=== PATIENT | female | born 1985 | race Hispanic/Latino ===

== ENCOUNTER 2019-08-21 02:43 | Emergency (ER) | payer OTHER ==
--- OUTSIDE RECORDS SUMMARY | 2019-08-21 02:45 | XMS REPORT | Continuity of Care Document ---
:1985 Author Organization [facility] t Address [address] [place] [address] [address]. 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 Allergies, Adverse Reactions, Alerts This patient has no known allergies or adverse reactions. Medications This patient has no known medications. Procedures This patient has no known procedures. Encounters Start End Encounter Admission Attending Care Care Encounter Source Date/Time Date/Time Type Type Clinicians Facility Department ID 2019-08-19 2019-08-19 Emergency Miguel [facility] [id number] 21:26:07 21:27:00 [place] [id number] [place] [id number] [place] [id number] 2019-08-19 2019-08-19 Orders Doctor SARAH [id number] 00:00:00 00:00:00 Only UnassCASI garcia [id number] [place] [facility] [id number] Results This patient has no known results.
--- OUTSIDE RECORDS SUMMARY | 2019-08-21 02:46 | XMS REPORT | Summary of Care ---
:1985 Author Organization [facility] Address [address] [place] [address] Care Team Providers Name Role Phone Shruthi Nuñez Insurance Hmo Jocelyn Stephen Primary Care Provider Reason for Visit Reason Comments Shortness of Breath Encounter Details Date Type Department Care Team Description 08/19/2019 Emergency ADC-Emergency Simba Rivera FNP Suspected Covid-19 Virus Infection (Prim danni Dx); Department [address] [place] [address] Shortness of breath; [address] [place] [place] [address] [address] [place] [address] Allergies No Known Allergiesdocumented as of this encounter (statuses as of 08/19/2019) Medications Medication Sig Dispensed Refills Start Date End Date Status vit Take 1 Packet by 30 Each 6 11/11/2016 Active 39-ukpg-dqlbd-dha mouth daily. (SELECT-OB + DHA) 29 mg iron-1 mg -250 mg combo packIndications: Supervision of high risk , antepartum, first trimester docusate calcium 240 Take 1 capsule by 60 capsule 1 04/20/2017 Active mg capsule mouth once daily as needed for Constipation. ferrous sulfate 325 Take 1 tablet by 60 tablet 2 04/20/2017 Active mg (65 mg iron) mouth daily. tablet ibuprofen 600 mg Take 1 tablet by 60 tablet 1 04/20/2017 Active tablet mouth every 6 (six) hours as needed for Pain (scale 1-3) or Pain (scale 4-6) (Pain). Take with food or milk. albuterol 2.5 mg /3 Inhale 3 mL every 20 mL 0 08/19/2019 Active mL (0.083 %) 4 (four) hours. nebulizer May also nebulize solutionIndications: one extra every 6 Shortness of breath, hours. Anxiety albuterol 90 Inhale 2 Puffs 8.5 g 0 08/19/2019 A ctive mcg/actuation every 4 (four) inhalerIndications: hours as needed Shortness of breath, for Wheezing or Anxiety Shortness of Breath. documented as of this encounter (statuses as of 08/19/2019) Active Problems Patient Care Coordination Note IOL scheduled for 04/18/2017 7 p.m. Problem Noted Date Papanicolaou smear of cervix with low grade squamous i ntraepithelial 08/30/2014 lesion (LGSIL) documented as of this encounter (statuses as of 08/19/2019) Resolved Problems Problem Noted Date Resolved Date Anemia, antepartum, third trimester 04/19/201705/08 Anxiety and depression 04/19/2017 05/19/2017 Overview: History of same,obs for same Normal spontaneous vaginal delivery 04/19/201705/08 Itching 04/19/2017 05/19/2017 Overview: C/o itching?PUPPS, Hydrocortisone used a t home 39 weeks gestation of 04/18/2017 05/20/19 18 Labor and delivery indication for care or intervention 04/1805/19/2017 Positive GBS test 04/06/2017 05/19/2017 Overview: Address in Labor and Delivery Decreased movements in third trimester, single or 03/1004/19/2017 unspecified fetus Supervision of high risk , antepartum, third trimes ter 02/09/2017 05/19/2017 Insufficient care in third trimester 02/09/2017 05/19/2017 Supervision of high risk , antepartum, first trimes ter 09/28/2016 02/09/2017 Absence of menstruation 09/28/2016 04/19/2017 Multiparity 09/28/2016 05/19/2017 Obesity in 09/28/2016 05/19/2017 Chlamydia trachomatis infection of lower genitourinary sites 08/30/2014 07/29/2016 documented as of this encounter (statuses as of 08/19/2019) Immunizations Name Administration Dates Next Due TDAP 02/09/2017, 02/07/2007 documented as of this encounter Social History Tobacco Use Types Packs/Day Years Used Date Former Smoker Cigarettes 0.2 3 Quit: 08/29/19 17 Smokeless Tobacco: Never Used Comments: smokes 2 x per day. Alcohol Use Drinks/Week oz/Week Comments Yes Sex Assigned at Date Recorded Not on file Job Start Date Occupation Industry Not on file Not on file Not on file Travel History Travel Start Travel End No recent travel history available. COVID-19 Exposure Response Date Recorded In the last month, have you been in contact with No / Unsure 08/19/2019 8:54 PM CDT someone who was confirmed or suspected to have Coronavirus / COVID-19? documented as of this encounter Last Filed Vital Signs Vital Sign Reading Time Taken Comments Blood Pressure 117/88 08/19/2019 8:55 PM CDT Pulse 86 08/19/2019 8:55 PM CDT Temperature 37.6 C (99.6 F) 08/19/2019 8:55 PM CDT Respiratory Rate 22 08/19/2019 8:55 PM CDT Oxygen Saturation 99% 08/19/2019 8:55 PM CDT Inhaled Oxygen Concentration - - Weight 83.5 kg (184 lb) 08/19/2019 8:55 PM CDT Height 152.4 cm (5') 08/19/2019 8:55 PM CDT Body Mass Index 35.94 08/19/2019 8:55 PM CDT documented in this encounter Discharge Instructions Simba Olmstead FNP - 08/19/2019 DIAGNOSIS ICD-10-CM ICD-9-CM 1. Suspected Covid-19 Virus Infection R68.89 2. Shortness of breath R06.02 786.05 NO LIFE-THREATENING FINDINGS ON TODAY'S EXAM. SPECIAL CARE INSTRUCTIONS: Stay well hydrated Follow up with PCP Return to ER As needed FOLLOW-UP RECOMMENDATIONS: RECOMMEND FOLLOW-UP WITH A PRIMARY CARE PROVIDER OR SPECIALIST IN 2-5 DAYS, ESPECIALLY IF NO IMPROVEMENT IN SYMPTOMS. TO FOLLOW-UP WITHIN THE [facility], TRY THESE OPTIONS (CLINIC APPOINTMENTS AVAILABLE ON [id number] BASIS): 1. SCHEDULE AN APPOINTMENT ONLINE AT [facility] 2. OR CALL THE [facility] AT OR 3. OR CALL YOUR [facility] PHYSICIAN'S OFFICE DIRECTLY IF YOU ARE ALREADY AN ESTABLISHED [facility] PATIENT. OR, YOU MAY FOLLOW-UP WITH A PROVIDER OF YOUR CHOICE, SUCH : 1. A PHYSICIAN OF YOUR CHOICE 2. [facility], . LOCATIONS IN [facility] 3. [facility], [address] [place], [place]; [phone] RETURN TO ER FOR WORSENING OF SYMPTOMS. AttachmentsThe following attachments cannot be sent through Care Everywhere. Shortness of Breath (Dyspnea) (Polish)Coronavirus Disease 2019: Caring for Yourself and Others (Polish)documented in this encounter Plan of Treatment Name Type Priority Associated Diagnoses Date/Ti me CORONAVIRUS COVID-19 LAB STAT Shortness o f breath 08/19/2019 9:04 PM TESTING Suspected Covid-19 Virus CDT Infection Name Type Priority Associated Diagnoses Order S chedule CORONAVIRUS COVID-19 LAB STAT Shortness o f breath STAT for 1 Occurrences TESTING Suspected Covid-19 starting 08/19/2019 Virus Infection until 2019 Health Maintenance Due Date Last Done Comments Depression Screening 1997 PAP SMEAR 09/29/2019 09/28/2016, 08/23/2014 INFLUENZA VACCINE (Season 10/09/2019 Ended) DTaP,Tdap,and Td Vaccines (3 02/09/2027 02/09/2017, - Td) 02/07/2007 PNEUMOCOCCAL 0-64 YEARS Aged Out No longe r eligible based COMBINED SERIES on patient's age to complete this to [facility] documented as of this encounter Procedures Procedure Name Priority Date/Time Associated Diagnosis Comme nts ASSIGNMENT OF BENEFITS Routine 08/19/2019 8:45 PM CDT documented in this encounter Results Not on filedocumented in this encounter Visit Diagnoses Diagnosis Suspected Covid-19 Virus Infection - Daphne karolina Shortness of breath Anxiety Anxiety state, unspecified documented in this encounter Additional Health Concerns Infection Onset Date Last Indicated Resolved Time COVID-19 Rule Out 08/19/2019 08/19/2019 documented as of this encounter Advance Directives Name Relationship Healthcare Agent Relationship Co mmunication Nicki Rose Sibling Primary healthcare agent
--- OUTSIDE RECORDS SUMMARY | 2019-08-21 02:46 | XMS REPORT | Summary of Care ---
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 (SELECT-OB + DHA) 29 mg iron-1 mg -250 mg combo packIndications: Supervision of high risk , antepartum, first trimester docusate calcium 240 Take 1 capsule by 60 capsule 1 04/20/2017 Active mg capsule mouth once daily as needed for Constipation. ferrous sulfate 325 mg Take 1 tablet by 60 tablet 2 04/20/2017 Active (65 mg iron) tablet mouth daily. ibuprofen 600 mg Take 1 tablet by 60 tablet 1 04/20/2017 Active tablet mouth every 6 (six) hours as needed for Pain (scale 1-3) or Pain (scale 4-6) (Pain). Take with food or milk. documented as of this encounter (statuses as [...] Travel End No recent travel history available. documented as of this encounter Last Filed Vital Signs Not on filedocumented in this encounter Plan of Treatment Health Maintenance Due Date Last Done Comments Depression Screening 1997 PAP SMEAR 09/29/2019 09/28/2016, 08/23/2014 INFLUENZA VACCINE (Season 10/09/2019 Ended) DTaP,Tdap,and Td Vaccines (3 02/09/2027 02/09/2017, - Td) 02/07/2007 PNEUMOCOCCAL 0-64 YEARS Aged Out No longe r eligible based COMBINED SERIES on patient's age to complete this to pic documented as of this encounter Procedures Procedure Name Priority Date/Time Associated Diagnosis Comme nts CONSENT/REFUSAL FOR Routine 08/19/2019 8:44 PM CDT DIAGNOSIS AND TREATMENT documented in this encounter Results Not on filedocumented in this encounter Insurance Payer Benefit Plan / Subscriber ID Effective Dates Phone Addre ss Type Group [place] [employer] [place] [employer] xxxxxxxxx 2016-Present Medicaid HEALTH PLAN - HEALTH MANAGED MEDICAID documented as of this encounter Advance Directives Name Relationship Healthcare Agent Relationship Co mmunication Nicki Rose Sibling Primary healthcare agent
[2019-08-21] MEDS ORDERED: METOCLOPRAMIDE 10 MG/2mL INJ ONE (03:35)
[2019-08-21] MEDS ORDERED: DIPHENHYDRAMINE 50 MG/ML VIAL ONE (03:35)
[2019-08-21] MEDS ORDERED: NA CHLORIDE 0.9% 1,000 ML ONE (03:35)
[2019-08-21 04:15] LABS: Barbiturates NEGATIVE (NEGATIVE); Benzodiazepines NEGATIVE (NEGATIVE); Cocaine NEGATIVE (NEGATIVE); METHAMPHETAM NEGATIVE (NEGATIVE); Methadone NEGATIVE (NEGATIVE); Opiates NEGATIVE (NEGATIVE); Phencyclidine NEGATIVE (NEGATIVE); THC Cannibis NEGATIVE (NEGATIVE)
[2019-08-21 04:19] LABS: Absolute Lymphocytes (CBC) 5.6 K/uL (0.7-4.9); Hematocrit 41.4 % (36.0-45.0); Lymphocytes % 40.3 % (15.3-44.8); MPV 7.7 fL (7.6-11.3); RBC Red Blood Cell Count 5.23 M/uL (3.86-4.86)
[2019-08-21 04:21] LABS: Protime INR 1.09
[2019-08-21 04:33] LABS: ALT/SGPT 11 U/L (12-78); AST/SGOT 9 U/L (15-37); Albumin 3.1 g/dL (3.4-5.0); Alkaline Phosphatase 58 U/L (45-117); BUN Blood Urea Nitrogen 12 mg/dL (7-18); Bicarbonate 23 mmol/L (21-32); Bilirubin Direct < 0.1 mg/dL (0-0.2); Bilirubin Total 0.2 mg/dL (0.2-1.0); CKMB Creatine Kinase MB < 1.0 ng/mL (0.3-3.6); Creatine Phosphokinase 51 U/L (26-192); Glucose Level 95 mg/dL (74-106); Lipase 295 U/L (73-393); NT PRO-BNP 47 pg/mL (<125); Potassium 4.1 mmol/L (3.5-5.1); Sodium Level 140 mmol/L (136-145); Troponin (Emerg Dept Use Only) < 0.02 ng/mL (0.0-0.045)
[2019-08-21 04:49] LABS: Urine Blood 2+ (NEG); Urine Glucose NEGATIVE (NEG); Urine Protein TRACE (NEG); Urine Specific Gravity >1.030 (1.005-1.030)
--- NOTE | 2019-08-21 05:21 | ER ---
Nurse's Notes [facility] Name: Goyo Solorio Age: 34 yrs Sex: Female : 1985 Arrival Date: 08/21/2019 Time: 02:46 Bed 8 Private MD: Diagnosis: Dyspnea;Dizziness;Headache;Viral Syndrome Presentation: 08/20 03:03 Chief complaint: Patient states: Shortness of breath, dizziness, headache, body aches lp1 that began yesterday; States her daughter had same symptoms and COVID negative test; patient states seen at [facility] yesterday and test for COVID, given Albuterol neb and inhaler prescriptions. Coronavirus screen: Patient denies a cough. Patient reports shortness of breath or difficulty breathing. Patient denies measured and/or subjective temperature greater than 100.4F prior to today's visit. Patient denies travel on a cruise ship or to a country the [facility] currently lists as an affected area. Patient denies contact with known and/or suspected case of COVID-19. Ebola Screen: No symptoms or risks identified at this time. Initial Sepsis Screen: Does the patient meet any 2 criteria? No. Patient's initial sepsis screen is negative. Does the patient have a suspected source of infection? No. Patient's initial sepsis screen is negative. Risk Assessment: Do you want to hurt yourself or someone else? Patient reports no desire to harm self or others. Onset of symptoms was August 20, 2019. 03:03 Method Of Arrival: Ambulatory lp1 03:03 Acuity: EUGENIO 3 lp1 Triage Assessment: 04:17 Respiratory: Onset: The symptoms/episode began/occurred gradually, the patient has mild jd3 shortness of breath. 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 - Social history:: Smoking status: Patient reports the use of cigarette tobacco products, denies chronic smoking, but will smoke occasionally. Screenin:07 Abuse screen: Denies threats or abuse. Denies injuries from another. Nutritional lp1 screening: No deficits noted. Tuberculosis screening: No symptoms or risk factors identified. Fall Risk None identified. Assessment: 03:50 General: Appears in no apparent distress. uncomfortable, Behavior is cooperative, jd3 appropriate for age, anxious. Pain: Complains of pain in chest Quality of pain is described as aching, pressure. Neuro: Level of Consciousness is awake, alert, obeys commands, Oriented to person, place, time, situation, Reports dizziness. Cardiovascular: Capillary refill < 3 seconds Patient's skin is warm and dry. Rhythm is regular. Respiratory: Reports shortness of breath at rest cough that is persistent Airway is patent Respiratory effort is even, unlabored, Respiratory pattern is regular, symmetrical. GI: Reports vomiting, Patient currently denies abdominal pain. : No signs and/or symptoms were reported regarding the genitourinary system. EENT: No signs and/or symptoms were reported regarding the EENT system. Derm: Skin is intact, Skin is dry, Skin is normal, Skin temperature is warm. Musculoskeletal: Circulation, motion, and sensation intact. Range of motion: intact in all extremities. 04:15 Reassessment: Patient appears in no apparent distress at this time. No changes from jd3 previously documented assessment. Patient and/or family updated on plan of care and expected duration. Pain level reassessed. Patient is alert, oriented x 3, equal unlabored respirations, skin warm/dry/pink. 05:47 Reassessment: Patient appears in no apparent distress at this time. Patient and/or jd3 family updated on plan of care and expected duration. Pain level reassessed. Patient is alert, oriented x 3, equal unlabored respirations, skin warm/dry/pink. Patient states feeling better. 06:50 Reassessment: Patient appears in no apparent distress at this time. Patient is alert, rr5 oriented x 3, equal unlabored respirations, skin warm/dry/pink. discharge instruction given and explained without complaints made Patient states feeling better. Patient states symptoms have improved. Vital Signs: 03:03 BP 110 / 95; Pulse 81; Resp 18; Temp 98.7(O); Pulse Ox 100% on R/A; Weight 83.46 kg lp1 (R); Height 5 ft. 0 in. (152.40 cm); Pain 0/10; 04:15 BP 129 / 69; Pulse 78; Resp 17 S; Pulse Ox 100% on R/A; jd3 05:47 BP 101 / 73; Pulse 70; Resp 17 S; Pulse Ox 100% on R/A; jd3 06:51 BP 105 / 62; Pulse 76; Resp 19; Temp 97.8; Pulse Ox 98% ; rr5 03:03 Body Mass Index 35.93 (83.46 kg, 152.40 cm) lp1 ED Course: 02:46 Patient arrived in ED. cl3 03:03 Chema Villegas MD is Attending Physician. mh7 03:06 Triage completed. lp1 03:06 Arm band placed on. lp1 03:14 Jose Cruz Guevara, JAVIER is Primary Nurse. jd3 03:37 Chest Single View XRAY In Process Unspecified. EDMS 03:42 CT Head Brain wo Cont In Process Unspecified. EDMS 03:50 Inserted saline lock: 20 gauge in right wrist, using aseptic technique. Blood collected.jd3 04:17 Patient has correct armband on for positive identification. Bed in low position. Call jd3 light in reach. Side rails up X2. database tester on. Pulse ox on. NIBP on. 05:47 No provider procedures requiring assistance completed. jd3 06:49 IV discontinued, intact, bleeding controlled, No redness/swelling at site. Pressure rr5 dressing applied. Administered Medications: 04:12 Drug: Reglan 10 mg Route: IVP; Site: right wrist; jd3 05:00 Follow up: Response: No adverse reaction jd3 04:12 Drug: Benadryl 50 mg Route: IVP; Site: right wrist; jd3 05:00 Follow up: Response: No adverse reaction jd3 04:12 Drug: NS 0.9% 1000 ml Route: IV; Rate: 1000 ml; Site: right wrist; jd3 05:10 Follow up: Response: No adverse reaction; IV Status: Completed infusion; IV Intake: jd3 1000ml Intake: 05:10 IV: 1000ml; Total: 1000ml. jd3 Outcome: 05:21 Discharge ordered by . mh7 06:49 Discharged to home ambulatory. rr5 06:49 Condition: stable 06:49 Discharge instructions given to patient, Instructed on discharge instructions, follow up and referral plans. medication usage, Demonstrated understanding of instructions, follow-up care, medications, Prescriptions given X 3. 06:50 Patient left the ED. rr5 Signatures: Dispatcher [employer] EDMS Dee Jane RN RN lp1 Jose Cruz Guevara RN RN jd3 Zheng Martino RN RN rr5 Kellen Pennington cl3 Chema Villegas MD MD mh7
--- NOTE | 2019-08-21 05:21 | EDPHYS ---
Physician Documentation [facility] Name: Goyo Solorio Age: 34 yrs Sex: Female : 1985 Arrival Date: 08/21/2019 Time: 02:46 Bed 8 Private MD: ED Physician Chema Villegas HPI: 08/20 03:56 This 34 yrs old Female presents to ER via Ambulatory with complaints of mh7 Dizziness, Shortness Of Breath. 03:57 The patient has shortness of breath with light activity. Onset: The symptoms/episode mh7 began/occurred 4 day(s) ago. Duration: The symptoms are intermittent, with no pattern. The patient's shortness of breath is aggravated by walking. The patient's shortness of breath is alleviated by nothing. Associated signs and symptoms: Pertinent positives: dizziness, Pertinent negatives: chest pain, non-productive cough, productive cough, diaphoresis, fever, hemoptysis, loss of consciousness, nausea, numbness in extremities, visual changes, vomiting. Severity of symptoms: At their worst the symptoms were moderate 3 day(s) ago, in the emergency department the symptoms have improved moderately. Patient states that she has had intermittent SOB, dizziness for the past 4 days. She has also had some intermittent headaches and body aches. She states that she had recent exposure to COVID 19 with aunt who tested positive.. 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 - Social history:: Smoking status: Patient reports the use of cigarette tobacco products, denies chronic smoking, but will smoke occasionally. ROS: 03:57 Constitutional: Negative for fever, chills, and weight loss, Eyes: Negative for injury, mh7 pain, redness, and discharge, ENT: Negative for injury, pain, and discharge, Neck: Negative for injury, pain, and swelling, Cardiovascular: Negative for chest pain, palpitations, and edema, Abdomen/GI: Negative for abdominal pain, nausea, vomiting, diarrhea, and constipation, Back: Negative for injury and pain, : Negative for injury, bleeding, discharge, and swelling, MS/Extremity: Negative for injury and deformity, Skin: Negative for injury, rash, and discoloration, Psych: Negative for depression, anxiety, suicide ideation, homicidal ideation, and hallucinations, Allergy/Immunology: Negative for hives, rash, and allergies, Endocrine: Negative for neck swelling, polydipsia, polyuria, polyphagia, and marked weight changes, Hematologic/Lymphatic: Negative for swollen nodes, abnormal bleeding, and unusual bruising. Exam: 03:57 Constitutional: This is a well developed, well nourished patient who is awake, alert, mh7 and in no acute distress. Head/Face: Normocephalic, atraumatic. Eyes: Pupils equal round and reactive to light, extra-ocular motions intact. Lids and lashes normal. Conjunctiva and sclera are non-icteric and not injected. Cornea within normal limits. Periorbital areas with no swelling, redness, or edema. ENT: Nares patent. No nasal discharge, no septal abnormalities noted. Tympanic membranes are normal and external auditory canals are clear. Oropharynx with no redness, swelling, or masses, exudates, or evidence of obstruction, uvula midline. Mucous membranes moist. Neck: Trachea midline, no thyromegaly or masses palpated, and no cervical lymphadenopathy. Supple, full range of motion without nuchal rigidity, or vertebral point tenderness. No Meningismus. Chest/axilla: Normal chest wall appearance and motion. Nontender with no deformity. No lesions are appreciated. Cardiovascular: Regular rate and rhythm with a normal S1 and S2. No gallops, murmurs, or rubs. Normal PMI, no JVD. No pulse deficits. Respiratory: Lungs have equal breath sounds bilaterally, clear to auscultation and percussion. No rales, rhonchi or wheezes noted. No increased work of breathing, no retractions or nasal flaring. Abdomen/GI: Soft, non-tender, with normal bowel sounds. No distension or tympany. No guarding or rebound. No evidence of tenderness throughout. Back: No spinal tenderness. No costovertebral tenderness. Full range of motion. Skin: Warm, dry with normal turgor. Normal color with no rashes, no lesions, and no evidence of cellulitis. MS/ Extremity: Pulses equal, no cyanosis. Neurovascular intact. Full, normal range of motion. Neuro: Awake and alert, GCS 15, oriented to person, place, time, and situation. Cranial nerves II-XII grossly intact. Motor strength 5/5 in all extremities. Sensory grossly intact. Cerebellar exam normal. Normal gait. Psych: Awake, alert, with orientation to person, place and time. Behavior, mood, and affect are within normal limits. 06:03 ECG was reviewed by the Attending Physician. [facility] Vital Signs: 03:03 BP 110 / 95; Pulse 81; Resp 18; Temp 98.7(O); Pulse Ox 100% on R/A; Weight 83.46 kg lp1 (R); Height 5 ft. 0 in. (152.40 cm); Pain 0/10; 04:15 BP 129 / 69; Pulse 78; Resp 17 S; Pulse Ox 100% on R/A; jd3 05:47 BP 101 / 73; Pulse 70; Resp 17 S; Pulse Ox 100% on R/A; jd3 06:51 BP 105 / 62; Pulse 76; Resp 19; Temp 97.8; Pulse Ox 98% ; rr5 03:03 Body Mass Index 35.93 (83.46 kg, 152.40 cm) lp1 MDM: 03:[address] [facility] 05:17 Differential diagnosis: Anemia Anxiety Reaction asthma, Bronchitis Myocardial 7 Infarction pneumonia, Pneumothorax pulmonary edema, Pulmonary Embolism reactive airway disease, Headache, Dyspnea, Dizziness, Viral Syndrome. Data reviewed: vital signs, nurses notes, old medical records, lab test result(s), cardiac enzymes, CBC, electrolytes, urinalysis, EKG, radiologic studies, CT scan, plain films. Data interpreted: Pulse oximetry: on room air is 100 %. Interpretation: normal. Counseling: I had a detailed discussion with the patient and/or guardian regarding: the historical points, exam findings, and any diagnostic results supporting the discharge/admit diagnosis, lab results, radiology results, the need for outpatient follow up, to return to the emergency department if symptoms worsen or persist or if there are any questions or concerns that arise at home. Response to treatment: the patient's symptoms have resolved after treatment, the patient's blood pressure is in an acceptable range, mental status has returned to baseline, the patient no longer shows bradycardia, the patient is not short of breath, the patient is not tachycardic, the patient's pain is gone, the patient's temperature has normalized. 08/20 03:17 Order name: Blood Culture Adult (2) 08/20 03:17 Order name: BMP; Complete Time: 04:41 08/20 03:17 Order name: CBC with Diff; Complete Time: 04:28 08/20 03:17 Order name: Ckmb; Complete Time: 04:41 08/20 03:17 Order name: CPK; Complete Time: 04:41 08/20 03:17 Order name: D-Dimer; Complete Time: 04:28 08/20 03:17 Order name: Hepatic Function; Complete Time: 04:41 08/20 03:17 Order name: Lipase; Complete Time: 04:41 08/20 03:17 Order name: Magnesium; Complete Time: 04:41 08/20 03:17 Order name: NT PRO-BNP; Complete Time: 04:41 08/20 03:17 Order name: PT-INR; Complete Time: 04:28 08/20 03:17 Order name: Ptt, Activated; Complete Time: 04:28 08/20 03:17 Order name: Troponin (emerg Dept Use Only); Complete Time: 04:08/20 03:17 Order name: UDS; Complete Time: 04:28 08/20 03:17 Order name: EKG; Complete Time: 03:18 08/20 03:17 Order name: Cardiac monitoring; Complete Time: 04:13 08/20 03:17 Order name: EKG - Nurse/Tech; Complete Time: 04:08/20 03:17 Order name: IV Saline Lock; Complete Time: 04:13 08/20 03:17 Order name: Labs collected and sent; Complete Time: 04:13 08/20 03:17 Order name: O2 Per Protocol; Complete Time: 03:22 08/20 03:17 Order name: O2 Sat Monitoring; Complete Time: 03:22 08/20 03:17 Order name: Urine Dipstick-Ancillary (obtain specimen); Complete Time: 03:49 08/20 03:17 Order name: Urine Test (obtain specimen); Complete Time: 03:49 [facility] 08/20 03:17 Order name: Chest Single View XRAY [facility] 08/20 03:19 Order name: CT Head Brain wo Cont [facility] 08/20 03:52 Order name: Urine Dipstick--Ancillary (enter results); Complete Time: 05:00 mw2 08/20 03:52 Order name: Urine --Ancillary (enter results); Complete Time: 05:00 mw2 EC:03 Rate is 71 beats/min. Rhythm is regular, Normal Sinus Rhythm. QRS [place] is Normal. [place] mh7 interval is normal. QRS interval is normal. QT interval is normal. No Q waves. T waves are Inverted in lead II. No ST changes noted. Clinical impression: NSR w/ Non-specific ST/T Changes. Administered Medications: 04:12 Drug: Reglan 10 mg Route: IVP; Site: right wrist; jd3 05:00 Follow up: Response: No adverse reaction jd3 04:12 Drug: Benadryl 50 mg Route: IVP; Site: right wrist; jd3 05:00 Follow up: Response: No adverse reaction jd3 04:12 Drug: NS 0.9% 1000 ml Route: IV; Rate: 1000 ml; Site: right wrist; jd3 05:10 Follow up: Response: No adverse reaction; IV Status: Completed infusion; IV Intake: jd3 1000ml Disposition: 08/21/19 05:21 Discharged to Home. Impression: Dyspnea, Dizziness, Headache, Viral Syndrome. - Condition is Stable. - Discharge Instructions: Shortness of Breath, Lddk-uh-Kvcj, Viral Respiratory Infection, Sdoz-Cx-Sarz, General Headache Without Cause, Ucfz-qp-Hlvm, Dizziness, Lkse-lp-Wqnb. - Prescriptions for Tessalon Perles 100 mg Oral Capsule - take 1 capsule by ORAL route every 8 hours As needed; 15 capsule. Albuterol Sulfate 90 mcg/actuation - inhale 1-2 puff by INHALATION route every 4-6 hours; 1 Inhaler. Benadryl 25 mg Oral Capsule - take 1 capsule by ORAL route every 6 hours As needed; 20 tablet. - Medication Reconciliation Form, Thank You Letter, Antibiotic Education, Prescription Opioid Use form. - Follow up: Private Physician; When: 1 - 2 days; Reason: Worsening of condition, Recheck today's complaints, Continuance of care, Re-evaluation by your physician. - Problem is an ongoing problem. - Symptoms have improved. Signatures: Dispatcher [employer] EDMS Dee Jane RN RN lp1 Jose Cruz Guevara RN RN jd3 Zheng Martino RN RN rr5 Chema Villegas MD MD mh7 Corrections: (The following items were deleted from the chart) 06:50 05:21 08/21/2019 05:21 Discharged to Home. Impression: Dyspnea; Dizziness; Headache; rr5 Viral Syndrome. Condition is Stable. Forms are Medication Reconciliation Form, Thank You Letter, Antibiotic Education, Prescription Opioid Use. Follow up: Private Physician; When: 1 - 2 days; Reason: Worsening of condition, Recheck today's complaints, Continuance of care, Re-evaluation by your physician. Problem is an ongoing problem. Symptoms have improved. mh7
[2019-08-21 07:07] VITALS: BP 105/62; TEMP 97.8; O2SAT 98
--- NOTE | 2019-08-21 08:30 | RAD REPORT ---
EXAM DESCRIPTION: RAD - Chest Single View - 08/21/2019 3:37 am CLINICAL HISTORY: SOB Chest pain. COMPARISON: <Comparisons> FINDINGS: Portable technique limits examination quality. The lungs are grossly clear. The heart is normal in size. No displaced fractures. IMPRESSION: No acute intrathoracic process suspected.
--- NOTE | 2019-08-22 07:48 | EKG ---
Test Date: 2019-08-21 Test Time: 03:44:44 As400 Administrator: VIET MEASUREMENT RESULTS: Intervals: Rate: 71 AL: 150 QRSD: 82 QT: 372 QTc: 404 [place]: P: 22 AL: 150 QRS: 1 T: 25 INTERPRETIVE STATEMENTS: Normal sinus rhythm Cannot rule out Inferior infarct, age undetermined Abnormal ECG Compared to ECG 12/25/2015 11:56:48 Myocardial infarct finding now present Electronically Signed On 08-22-19 07:44:55 CDT by Javon Carranza
--- NOTE | 2019-08-22 08:23 | RAD REPORT ---
EXAM DESCRIPTION: CT HEAD WITHOUT IV CONTRAST CLINICAL HISTORY: HEADACHE TECHNIQUE: Contiguous axial CT images obtained through the brain without IV contrast. Coronal and sa gittal reformatted images were provided. This exam was performed according to our departmental dose-optimization program, which includes autom ated exposure control, adjustment of the mA and/or kV according to patient size and/or use of iterati ve reconstruction technique. COMPARISON: None available for comparison FINDINGS: Brain: No significant white matter changes. No focal mass effect. Ruiz-white matter differ entiation is within normal limits. No hemorrhage. Ventricles: No ventriculomegaly or midline shift. Extra-axial spaces: No extra-axial collection or hemorrhage. Paranasal sinuses and mastoid air cells: Well-aerated Vessels: Unremarkable Bones: Unremarkable Soft tissues: Unremarkable IMPRESSION: No acute intracranial or extra-axial abnormality. Electronically signed by: Francis Vega MD 08/21/2019 3:52 AM CDT Due to temporary technical issues with the PACS/Fluency reporting system, reports are being signed by the in house radiologist without review as a courtesy to ensure prompt reporting. The interpreting r adiologist is fully responsible for the content of the report.
== END 2019-08-21 06:50 | disposition home or self-care (01) ==
LOC: ER 02:43
DX: B34.9 Viral infection, unspecified (principal); R06.00 Dyspnea, unspecified; R51 Headache; Z72.0 Tobacco use
CPT/HCPCS: 96361; 93005; 87040 ×2; 85025; 80048; 36415; 83735; 82550; 81025; 85610; 85379; 80076; 80307 ×8; 85730; 81003; 84484; 82553; 83690; 83880; 70450; 71045; 96375; 96374; 99284; J2765; J1200; J7030

== ENCOUNTER 2019-08-21 16:15 | Emergency (ER) | payer OTHER, SELFPAY ==
--- NOTE | 2019-08-21 18:16 | ER ---
Nurse's Notes [facility] Name: Goyo Solorio Age: 34 yrs Sex: Female : 1985 Arrival Date: 08/21/2019 Time: 16:16 Bed Waiting Private MD: Diagnosis: Presentation: 08/20 16:22 Chief complaint: Patient states: Left sided chest pain for 1 day with SOB. States her ll1 covid test was negative. Slight cough, no SOB. + fatigue. Seen last night for the same. Pain came back at noon today. Coronavirus screen: Surgical mask placed on patient. Patient moved to private room, placed in contact and droplet isolation with eye protection until further assessment. Patient reports a cough. Patient reports shortness of breath or difficulty breathing. Patient denies measured and/or subjective temperature greater than 100.4F prior to today's visit. Patient denies travel on a cruise ship or to a country the [facility] currently lists as an affected area. Patient denies contact with known and/or suspected case of COVID-19. Ebola Screen: Patient denies travel to an Ebola-affected area in the 21 days before illness onset. Initial Sepsis Screen: Does the patient meet any 2 criteria? HR > 90 bpm. Risk Assessment: Do you want to hurt yourself or someone else? Patient reports no desire to harm self or others. Onset of symptoms was August 10, 2019. 16:22 Method Of Arrival: Ambulatory ll1 16:22 Acuity: EUGENIO 3 ll1 Historical: - Allergies: 16:25 No Known Drug Allergies; ll1 - PMHx: 16:25 Anxiety; ll1 - PSHx: 16:25 Appendectomy; ll1 - Immunization history:: Flu vaccine is not up to date. - Social history:: Smoking status: Patient reports the use of cigarette tobacco products, denies chronic smoking, but will smoke occasionally, Patient/guardian denies using alcohol, street drugs. Vital Signs: 16:22 BP 117 / 83; Pulse 120; Resp 18; Temp 99.3; Pulse Ox 96% ; Pain 8/10; ll1 ED Course: 16:16 Patient arrived in ED. ag5 16:24 Triage completed. ll1 16:25 Arm band placed on Patient notified of wait time. ll1 Administered Medications: No medications were administered Outcome: 18:16 Patient left the ED. ll1 Signatures: Sophie Smith RN RN ss David Palmer ag5 Paul Pennington RN RN ll1 Corrections: (The following items were deleted from the chart) 17:31 16:22 Chief complaint: Patient states: Left sided chest pain for 1 day with SOB. States ss her covid test was negative. Slight cough, no SOB. + fatigue ll1
--- OUTSIDE RECORDS SUMMARY | 2019-08-21 18:17 | XMS REPORT | Continuity of Care Document ---
:1985 Author Organization [facility] t Address [address] [place] [address] [address]. [address] [place] [address] Care Team Providers Name Role Phone Miguel G[employer]ATION ATTENDANT Attending Clinician Doctor Unassigned, Name Attending Clinician [...] Facility Department ID 2019-08-19 2019-08-19 Emergency Miguel [facility] [id number] 21:26:07 21:27:00 [place] [id number] [place] [id number] [place] [phone] [id number] 2019-08-19 2019-08-19 Orders Doctor SARAH [id number] 00:00:00 00:00:00 Only UnassCASI garcia [id number] [place] [facility] [phone] [id number] Results This patient has no known results.
== END 2019-08-21 18:16 | disposition left against medical advice (07) ==
LOC: ER 16:15
DX: Z53.21 Procedure and treatment not carried out due to patient leaving prior to being seen by health care provider (principal)
CPT/HCPCS: 99281

== ENCOUNTER 2019-08-23 23:27 | Inpatient (IN) | payer SELFPAY ==
--- OUTSIDE RECORDS SUMMARY | 2019-08-23 23:29 | XMS REPORT | Summary of Care ---
:1985 Author Organization [facility] Address [address] [place] [id number] Care Team Providers Name Role Phone Joaquin Shruthi Insurance [employer] Jocelyn Stephen Primary Care Provider Reason for Visit Reason Comments Results Encounter Details Date Type Department Care Team Description 08/22/2019 Telephone ACCESS CENTER Simba Rivera FNP Results [address] [phone] [place] [phone] Allergies No Known Allergiesdocumented as of this encounter (statuses as of 08/22/2019) Medications Medication Sig Dispensed Refills Start Date End Date Status vit Take 1 Packet by 30 Each 6 11/11/2016 Active 08-nxyk-dmmdb-dha mouth daily. (SELECT-OB + DHA) 29 mg [...] as of this encounter (statuses as of 08/22/2019) Active Problems Patient Care Coordination Note IOL scheduled for 04/18/2017 7 p.m. Problem Noted Date Papanicolaou smear of cervix with low grade squamous i ntraepithelial 08/30/2014 lesion (LGSIL) documented as of this encounter (statuses as of 08/22/2019) Resolved Problems Problem Noted Date Resolved Date [...] as of this encounter (statuses as of 08/22/2019) Immunizations Name Administration Dates Next Due TDAP [...] PAP SMEAR 09/29/2019 09/28/2016, 08/23/2014 INFLUENZA VACCINE (#1) 2019 DTaP,Tdap,and Td Vaccines (3 02/09/2027 02/09/2017, - Td) 02/07/2007 PNEUMOCOCCAL 0-64 YEARS Aged Out No longe r eligible based COMBINED SERIES on patient's age to complete this to pic documented as of this encounter Results Not on filedocumented in this encounter Advance Directives Name Relationship Healthcare Agent Relationship Co mmunication Nicki Rose Sibling Primary healthcare agent
--- OUTSIDE RECORDS SUMMARY | 2019-08-23 23:29 | XMS REPORT | Continuity of Care Document ---
:1985 Author Organization [facility] t Address [address] [place] [address] Care Team Providers Name Role Phone Provider, Urgent Care Attending Clinician Unavailable Payers Payer Name Policy Type Policy Number Effective Date Expiration Date S ource Problems This patient has no known problems. Allergies, Adverse Reactions, Alerts Allergy Allergy Status Severity Reaction(s) Onset Inactive Treating Comm ents Source Name Type Date Date Clinician No Known DA Active U [facility] 7-15 Clear s 00:00: Hough 00 [facility] No Known DA Active U 2012-02 [facility] Allergie 0-06 Clear s 00:00: Hough 00 [facility] Medications This patient has no known medications. Procedures This patient has no known procedures. Encounters Start End Encounter Admission Attending Care Care Encounter Source Date/Time Date/Time Type Type Clinicians Facility Department ID 2019-08-23 2019-08-23 Urgent Provider, [facility] [id number] 15:07:25 16:34:23 Care [facility] [id number] [facility] [id number] Skip [id number] nal [address] Results Test Description Test Time Test Comments Results Result Comments Source COMPREHENSIVE METABOLIC PANEL 2019-08-22 10:12:00 Test Item Value Reference Range Interpretation Comme nts SODIUM (test code = NA) 136 mEq/L 134-147 N POTASSIUM (test code = K) 3.6 mEq/L 3.4-5.0 N CHLORIDE (test code = CL) 107 mEq/L 100-108 N CARBON DIOXIDE (test code = CO2) 26 mEq/L 21-33 N ANION GAP (test code = GAP) 7 0-20 N GLUCOSE (test code = GLU) 93 mg/dL 70-110 N BLOOD UREA NITROGEN (test code = 7 mg/dL 7-18 N BUN) GLOMERULAR FILTRATION RATE (test 95.8 105-110 L Units of measure = code = GFR) ml/min/1.73 m2 CREATININE (test code = CREAT) 0.7 mg/dL 0.6-1.3 N TOTAL PROTEIN (test code = PROT) 8.8 g/dL 6.4-8.2 H ALBUMIN (test code = ALB) 3.30 g/dL 3.4-5.0 L CALCIUM (test code = CA) 9.4 mg/dL 8.0-10.5 N BILIRUBIN TOTAL (test code = BILT) 0.6 MG/DL <1.5 N SGOT/AST (test code = AST) 7 IUnit/L 15-37 L SGPT/ALT (test code = ALT) 16 IUnit/L 15-65 N ALKALINE PHOSPHATASE TOTAL (test 65 IUnit/L 20-125 N code = ALKP) [id number] 10:12:00 Test Item Value Reference Range Interpretation Comments TROPONIN-I < 0.015 ng/mL 0.000-0.045 N Negative: <= (test code = 0.045 Positive: TROPI) >= 0.046 Correl ation with serial results, other cardiac markers andclinical findings is nec essary to determine the clinicalsignifi cance of this result. Results using different metho dologies should not be c omparedto one another as tea titative results may jett y by method. COMPREHENSIVE METABOLIC [id number] 10:11:00 Test Item Value Reference Range Interpretation Comments SODIUM (test code = NA) mEq/L 134-147 POTASSIUM (test code = K) mEq/L 3.4-5.0 CHLORIDE (test code = CL) mEq/L 100-108 CARBON DIOXIDE (test code = CO2) mEq/L 21-33 ANION GAP (test code = GAP) 0-20 GLUCOSE (test code = GLU) mg/dL 70-110 BLOOD UREA NITROGEN (test code = mg/dL 7-18 BUN) GLOMERULAR FILTRATION RATE (test 105-110 code = GFR) CREATININE (test code = CREAT) mg/dL 0.6-1.3 TOTAL PROTEIN (test code = PROT) g/dL 6.4-8.2 ALBUMIN (test code = ALB) g/dL 3.4-5.0 CALCIUM (test code = CA) mg/dL 8.0-10.5 BILIRUBIN TOTAL (test code = BILT) MG/DL <1.5 SGOT/AST (test code = AST) IUnit/L 15-37 SGPT/ALT (test code = ALT) IUnit/L 15-65 ALKALINE PHOSPHATASE TOTAL (test IUnit/L 20-125 code = ALKP) [id number] 10:11:00 Test Item Value Reference Range Interpretation Comments TROPONIN-I < 0.015 ng/mL 0.000-0.045 N Negative: <= (test code = 0.045 Positive: TROPI) >= 0.046 Correl ation with serial results, other cardiac markers andclinical findings is nec essary to determine the clinicalsignifi cance of this result. Results using different metho dologies should not be c omparedto one another as tea titative results may jett y by method. PROTHROMBIN [id number] 09:59:00 Test Item Value Reference Range Interpretation Comments PROTHROMBIN TIME 14.4 SECONDS 9.3-12.9 H PATIENT (test code = PTP) INTERNATIONAL NORMAL 1.3 0.8-1.2 H TARGET RATIO (test code = INR BY IN DICATION INR) Indication INR1. Prophyl axis of venous thrombos is 2.0 - 3. 0 (orthopedic eagle génesis), Prophylaxis of venous thrombos is (other than hig h-risk surgery), Deana tment of Deep Vein Thrombosis/Pulm onary Embolism, Preve ntion of systemic emb olism - Tissue heart va lves, Acute Myocardia l Infarction (to prevent systemic embo lism), Valvular heart disease, Atri al Fibrillation, Bileaflet mecha nical valve in aortic position.2. Mec hanical prosthetic valv es (high risk), 2.5 - 3.5 Presence of Lupus Anticoagu lant or Antiphospholi pid Antibodies, Pre vention of systemic e mbolism - Acute Myocard ial Infarction (t o prevent recurre nt infarct). [id number] 09:59:00 Test Item Value Reference Range Interpretation Comments D-DIMER (test 224 ng/mlFEU <=500 N THROMBOSIS AND /OR PULMONARY code = EMBOLISM AND TH E CLINICAL DDIMER) CUT- OFF VALUE FOR EXCLUSION (500 ng/mL FEU) OF THESE CONDITIONSIS VA LIDATED BY THE MANUFACTURE R OF THE METHOD. A NEGAT BRENDEN D-DIMER RESULT WHEN COM BINED WITH A CLINICALASSESSM ENT OF LOW PRETEST PROBABI LITY HAS BEEN SHOWN TO HAVEA HIGH NEGATIVE PREDICTIVE VALU E OF DVT OR PE. D-DIMER ZAC UES >500 ng/mL FEU ARE N OT DIAGNOSTIC FOR DVT, PEor D IC WITHOUT OTHER CONFIRMAT ORY TESTS AND APPROPRIATECLIN ICAL EUALUATIONS. CBC W/AUTO [id number] 09:56:00 Test Item Value Reference Range Interpretation Comments WHITE BLOOD CELL (test code = 13.32 x10 3/uL 4.5-11.0 H WBC) RED BLOOD CELL (test code = 5.55 x10 6/uL 3.54-5.02 H RBC) HEMOGLOBIN (test code = HGB) 14.5 g/dL 11.0-15.0 N HEMATOCRIT (test code = HCT) 45.4 % 33.0-45.0 H MEAN CELL VOLUME (test code = 81.8 fL 81.0-99.0 N MCV) MEAN CELL HGB (test code = 26.1 pg 27.0-33.0 L MCH) MEAN CELL HGB CONCETRATION 31.9 g/dL 33.0-37.0 L (test code = MCHC) RED CELL DISTRIBUTION WIDTH CV 14.4 % 11.5-14.5 N (test code = RDW) RED CELL DISTRIBUTION WIDTH SD 42.6 fL 37.0-54.0 N (test code = RDW-SD) PLATELET COUNT (test code = 442 x10 3/uL 150-400 H PLT) MEAN PLATELET VOLUME (test 9.1 fL 7.0-9.0 H code = MPV) NEUTROPHIL % (test code = NT%) 53.5 % 56.0-77.0 L IMMATURE GRANULOCYTE % (test 0.3 % 0.0-2.0 N code = IG%) LYMPHOCYTE % (test code = LY%) 37.2 % 14.0-32.0 H MONOCYTE % (test code = MO%) 7.7 % 4.8-9.0 N EOSINOPHIL % (test code = EO%) 0.8 % 0.3-3.7 N BASOPHIL % (test code = BA%) 0.5 % 0.0-2.0 N NUCLEATED RBC % (test code = 0.0 % 0-0 N NRBC%) NEUTROPHIL # (test code = NT#) 7.13 x10 3/uL 2.0-7.6 N IMMATURE GRANULOCYTE # (test 0.04 x10 3/uL 0.00-0.03 H code = IG#) LYMPHOCYTE # (test code = LY#) 4.96 x10 3/uL 1.0-3.8 H MONOCYTE # (test code = MO#) 1.02 x10 3/uL 0.1-0.8 H EOSINOPHIL # (test code = EO#) 0.11 x10 3/uL 0.0-0.2 N BASOPHIL # (test code = BA#) 0.06 x10 3/uL 0.0-0.2 N NUCLEATED RBC # (test code = 0.00 x10 3/uL 0.0-0.1 N NRBC#) MANUAL DIFF REQUIRED (test NO code = MDIFF) - XR CHEST 1 [id number] 09:56:00 FAX: Dallas Cain MD [phone] [place]: St: PRE Name: RAGHAVENDRA QUINNAGUS [facility] : 1985 Age/S: 34/F [address] [place] [address] Unit#: [id number] Loc: [place] [address] Phys: Dallas Cain MD Acct: [id number] Dis Date: Status: PRE ER PHONE #: [phone] Exam Date: 08/22/2019 1003 FAX #: [phone] Reason: Chest Pain EXAMS: CPT CODE: [id number] XR CHEST 1 V [id number] PROCEDURE: CHEST SINGLE VIEW INDICATION: Chest Pain COMPARISON: There are no previous relevant studies available for correlation. FINDINGS: The lungs are clear. No pleural abnormality. The cardiomediastinalsilhouette is normal for projection. The bony thorax is intact. IMPRESSION: Normal radiograph. SL: [id number] at 0956 Reported and signed by: Samson Sousa M.D. CC: Dallas Cain MD Technologist: RT Maddi(Jocelyn) Trnscrd Date/Time/By: 08/22/2019 (6620) : By: Krissy Orig Print D/T: S: 08/22/2019 (1007) PAGE 1 Signed Report
--- OUTSIDE RECORDS SUMMARY | 2019-08-23 23:30 | XMS REPORT | Summary of Care ---
:1985 Author Organization [facility] Address [address] [place] [address] Care Team Providers Name Role Phone Shruthi Nuñez Insurance Hmo Jocelyn Stephen Primary Care Provider Reason for Visit Reason Comments Leg Pain Encounter Details Date Type Department Care Team Description 08/22/[address] [facility] Urgent Unknown, Attending Harini fonseca in both [facility] Nurse, [facility] extremities (Primary [place] [facility]) [address] [place] [phone] Allergies No Known Allergiesdocumented as of this encounter (statuses as of 08/22/2019) Medications Medication Sig Dispensed Refills Start Date End Date Status vit Take 1 Packet by 30 Each 6 11/11/2016 Active 71-insk-zakif-dha mouth daily. (SELECT-OB + DHA) 29 mg [...] for Wheezing or Anxiety Shortness of Breath. FEMYNOR 0.25-35 Take 1 tablet by 0 07/19/2019 Active mg-mcg per tablet mouth daily. documented as of this encounter (statuses as [...] Sign Reading Time Taken Comments Blood Pressure 110/73 08/22/2019 1:32 PM CDT Pulse 98 08/22/2019 1:32 PM CDT Temperature 37.2 C (98.9 F) 08/22/2019 1:32 PM CDT Respiratory Rate 16 08/22/2019 1:32 PM CDT Oxygen Saturation 100% 08/22/2019 1:32 PM CDT Inhaled Oxygen Concentration - - Weight 82.5 kg (181 lb 12.8 oz) 08/22/2019 1:32 PM CDT Height 154.9 cm (5' 1") 08/22/2019 1:32 PM CDT Body Mass Index 34.35 08/22/2019 1:32 PM CDT documented in this encounter Progress Notes Maya Ty LVN - 08/22/2019 1:30 PM LELATEceleste Ekta Solorio is a 34 year old female who presents to Urgent Care with complaints of L arm painand numbness in fingers for 3 days. Legs with sharp pain started today. Went to ED this week -CT scan, xrays and labs normal. Just D/C'd control 2 weeks ago. No PCP-gave access center number to establish care with PCP. Pt C/O pain in bilateral legs radiating superior. Reports Anxiety and nervousness. Negative for covid-19. After speaking with Karla LUCIANO, patient was advised to go to ED for further evaluation and testing. Pt verbally agreed and was sent to [facility]. Called charge nurse and gave SBAR. documented in this encounter Plan of Treatment Health [...] filedocumented in this encounter Visit Diagnoses Diagnosis Pain in both lower extremities - Primary documented in this encounter Advance Directives Name Relationship Healthcare Agent Relationship Co mmunication Nicki Rose Sibling Primary healthcare agent
--- OUTSIDE RECORDS SUMMARY | 2019-08-23 23:30 | XMS REPORT | Summary of Care ---
:1985 Author Organization [facility] Address [address] [place] [id number] Care Team Providers Name Role Phone Joaquin Shruthi Insurance Hmo Jocelyn Stephen [facility] Primary Care Provider Reason for Referral (Routine) Status Reason Specialty Diagnoses / Referred By Referred To Procedures Contact Contact New Request Diagnoses Anxiety Bijan, Wondiful Dany Stephen Procedures Discharge Follow-up: PCP DANY STEPHEN R; 4-6 Weeks MD Jocelyn Lemus, [address] [facility] [address] [place] [address] Phone: Fax: (Routine) Status Reason Specialty Diagnoses / Referred By Referred To Procedures Contact Contact New Request Cardiology Diagnoses Chest pain, unspecified type Marlyn Baca, Procedures CONSULT/REFERRAL CARDIOLOGY [place] [address] [address] Reason for Visit Reason Comments Numbness hands and feet. Feet gets co ld and numb all of a sudden. Chest Pain Left side, gets dizzy and fe els like she is going to pass out. [facility] called and told her her ekg was abnormal and needs to go back and get a new ekg. Pt states whe n she breathes in she feel a pinch on front left side and on her left to p of back. Encounter Details Date Type Department Care Team Description 08/23/2019 Urgent Care [facility] Family Easton Baca, COLLETER [id number] [place] [phone] Chest pain, unspecified type (Primary Dx ); Medicine - [place] Provider, [facility] Anxiety [address] [place] [address] Allergies No Known Allergiesdocumented as of this encounter (statuses as of 08/23/2019) Medications Medication Sig Dispensed Refills Start Date End Date Status vit Take 1 Packet by 30 Each 6 11/11/2016 Active 41-uhwx-klghw-dha mouth daily. (SELECT-OB + DHA) 29 mg [...] 07/19/2019 Active mg-mcg per tablet mouth daily. hydrOXYzine 10 mg Take 1 tablet by 40 tablet 0 08/22/2019 07/2 06/2019 Active tabletIndications: mouth every 6 Anxiety (six) hours for 10 days. SERTraline (ZOLOFT) Take 1 tablet by 30 tablet 0 08/23/2019 Active 50 mg mouth daily for tabletIndications: 30 days. Anxiety documented as of this encounter (statuses as of 08/23/2019) Active Problems Patient Care Coordination Note IOL scheduled for 04/18/2017 7 p.m. Problem Noted Date Papanicolaou smear of cervix with low grade squamous i ntraepithelial 08/30/2014 lesion (LGSIL) documented as of this encounter (statuses as of 08/23/2019) Resolved Problems Problem Noted Date Resolved Date [...] as of this encounter (statuses as of 08/23/2019) Immunizations Name Administration Dates Next Due TDAP [...] been in contact with No / Unsure 08/22/2019 2:15 PM CDT someone who was confirmed or suspected to have Coronavirus / COVID-19? documented as of this encounter Last Filed Vital Signs Vital Sign Reading Time Taken Comments Blood Pressure 110/82 08/23/2019 3:22 PM CDT Pulse 106 08/23/2019 3:22 PM CDT Temperature 37 C (98.6 F) 08/23/2019 3:22 PM CDT Respiratory Rate 18 08/23/2019 3:22 PM CDT Oxygen Saturation 96% 08/23/2019 3:22 PM CDT Inhaled Oxygen Concentration - - Weight 81.9 kg (180 lb 9.6 oz) 08/23/2019 3:22 PM CDT Height 152.4 cm (5') 08/23/2019 3:22 PM CDT Body Mass Index 35.27 08/23/2019 3:22 PM CDT documented in this encounter Patient Instructions Patient InstructionsMarlyn Baca FNP - 08/23/2019 3:40 PM CDT Patient Education Treating Anxiety Disorders with Medicine An anxiety disorder can make you feel nervous or apprehensive,even without a clearreason. In people age 65 and older, generalized anxiety disorder is one of the most commonly diagnosed anxiety disorders.Many times it occurs with depression. Certain anxiety disorders can cause intense feelings offear or panic. You may even havephysical symptoms such as a racing heartbeat, sweating, or dizziness. If you have these feelings, you dont have to suffer anymore. Treatment to help you overcome your fears will likely include therapy (also called counseling). Medicine may also be prescribed to help control your symptoms. Medicines Certain medicines may be prescribed to help control your symptoms. So you may feel less anxious. Youmay also feel able to move forward with therapy. At first, medicines and dosages may need to be adjusted to find what works best for you. Try to be patient. Tell your healthcare provider how a medicinemakes you feel. This way, you can work together to find the treatment thats best for you. Keep inmind that medicines can have side effects. Talk with your provider about any side effects that are bothering you. Changing the dose or type of medicine may help. Dont stop taking medicine on your own. That can cause symptoms to come back or cause dangerous withdrawal symptoms. Anti-anxiety medicine. This medicine eases symptoms and helps you relax. Your healthcare providerwill explain when and how to use it. It may be prescribed for use before situations that make you anxious. You may also be told to take medicine on a regular schedule. Anti-anxiety medicine may make you feel a little sleepy or out of it. Dont drive a car or operate machinery while on this medicine, until you know how it affects you. Never use alcohol or other drugs with anti-anxiety medicines. This could result in loss of muscular control, sedation, coma, or . Also, use only the amount of medicine prescribed for you. If you think you may have taken too much, get emergency care right away. Never share your medicines with others. Store these medicines in a safe place that can't be reached by children or visitors. Keep taking medicines as prescribed Never change your dosage, share or use another person's medicine, or stop taking your medicines without talking to your healthcare provider first. Keep the following in mind: Some medicines must be taken on a schedule. Make this part of your daily routine. For instance, always take your pill before brushing your teeth. A pillbox can help you remember if youve taken your medicine each day. Medicines are often taken for6 to 12 months. Your healthcare provider will then evaluate whether you need to stay on them. Many people who have also had therapy may no longer need medicine to manage anxiety. You may need to stop taking medicine slowly to give your body time to adjust. When its time tostop, your healthcare provider will tell you more. Remember: Never stop taking your medicine withouttalking to your provider first. If symptoms return, you may need to start taking medicines again. This isnt your fault. Its just the nature of your anxiety disorder. What to think about Side effects.Medicines may cause side effects. Ask your healthcare provider or pharmacist what you can expect. They may have ideas for avoiding some side effects. Sexual problems. Some antidepressants can affect your desire for sex or your ability to have an orgasm. A change in dosage or medicine often solves the problem. If you have a sexual side effect thatconcerns you, tell your healthcare provider. Addiction. If youve never had a problem with drugs or alcohol, you may not have a problem withmedicines used to treat anxiety disorders. But always discuss the medicines with your healthcare provider before taking them. If you have a history of addiction, you may not be able to use certain medicines used to treat anxiety disorders. Medicine interactions. Always check with your pharmacist before using any aavh-cvz-idktsuy medicines (OTCs), including herbal supplements. Some OTCs may interact with your anti-anxiety medicines andincrease or decrease their effectiveness. [employer] last reviewed this educational content on 01/07/201919995001-1488 The [employer]. [address] [place] [address]. All rights reserved. This information is not intended as a substitute for professional medical care. Always follow your healthcare professional's instructions. documented in this encounter Progress Notes Marlyn Baca FNP - 08/23/2019 3:40 PM CDT Cc: Chief Complaint Patient presents with Numbness hands and feet. Feet gets cold and numb all of a sudden. Chest Pain Left side, gets dizzy and feels like she is going to pass out. [facility] called and told herher ekg was abnormal and needs to go back and get a new ekg. Pt states when she breathes in she feela pinch on front left side and on her left top of back. Goyo Solorio is a 34 year old female. Patient has has had persistent chest pain, dizziness, excessive worry as detailed below and was worked up and cleared for acute cardiac issues ( she has been to ER twice as well as [facility] in the past week alone). Her symptoms are attributed to her anxiety but she is 100% non-compliant . She worries about loosing loved ones of her self to covid, and majority of her complaints is based on fear- thus anxious, but feels she needs further cardiac work up. Anxiety Presents for follow-up visit. Symptoms include chest pain, decreased concentration, dizziness, excessive worry, irritability, muscle tension, nervous/anxious behavior and palpitations. Patient reports no shortness of breath. Symptoms occur most days. The severity of symptoms is moderate. The quality of sleep is poor. Nighttime awakenings: occasional. Compliance with medications is 0-25%. Allergies Goyo has No Known Allergies. Medications Outpatient Medications Prior to Visit Medication Sig Dispense Refill FEMYNOR 0.25-35 mg-mcg per tablet Take 1 tablet by mouth daily. hydrOXYzine 10 mg tablet Take 1 tablet by mouth every 6 (six) hours for 10 days. 40 tablet 0 albuterol 2.5 mg /3 mL (0.083 %) nebulizer solution Inhale 3 mL every 4 (four) hours. May also nebulize one extra every 6 hours. 20 mL 0 albuterol 90 mcg/actuation inhaler Inhale 2 Puffs every 4 (four) hours as needed for Wheezing orShortness of Breath. 8.5 g 0 docusate calcium 240 mg capsule Take 1 capsule by mouth once daily as needed for Constipation. 60 capsule 1 ferrous sulfate 325 mg (65 mg iron) tablet Take 1 tablet by mouth daily. 60 tablet 2 ibuprofen 600 mg tablet Take 1 tablet by mouth every 6 (six) hours as needed for Pain (scale 1-3) or Pain (scale 4-6) (Pain). Take with food or milk. 60 tablet 1 vit 01-nvdr-rebml-dha (SELECT-OB + DHA) 29 mg iron-1 mg -250 mg combo pack Take 1 Packet by mouth daily. 30 Each 6 No facility-administered medications prior to visit. Histories Past Medical History: Diagnosis Date Absence of menstruation 09/28/2016 Anemia, antepartum, third trimester 04/19/2017 Anxiety and depression 04/19/2017 Anxiety and depression Chlamydia 08/2014 IUD complication Papanicolaou smear of cervix with low grade squamous intraepithelial lesion (LGSIL) 08/30/2014 Past Surgical History: Procedure Laterality Date APPENDECTOMY 2011 COSMETIC SURGERY 2002 mole removal REMOVE INTRAUTERINE DEVICE Social History Socioeconomic History Marital status: Single Spouse name: Not on file Number of children: Not on file Years of education: Not on file Highest education level: Not on file Occupational History Not on file Social Needs Financial resource strain: Not on file Food insecurity: Worry: Not on file Inability: Not on file Transportation needs: Medical: Not on file Non-medical: Not on file Tobacco Use Smoking status: Former Smoker Packs/day: 0.20 Years: 3.00 Pack years: 0.60 Types: Cigarettes Last attempt to quit: 08/28/2016 Years since quittin.9 Smokeless tobacco: Never Used Tobacco comment: smokes 2 x per day. Substance and Sexual Activity Alcohol use: Yes Drug use: Yes Comment: smokes marijuana-last smoked 2 weeks ago Sexual activity: Yes Partners: Male control/protection: None Comment: last sexual intercourse 09/26/2016 Lifestyle Physical activity: Days per week: Not on file Minutes per session: Not on file Stress: Not on file Relationships Social connections: Talks on phone: Not on file Gets together: Not on file Attends confucianism service: Not on file Active member of club or organization: Not on file Attends meetings of clubs or organizations: Not on file Relationship status: Not on file Intimate partner violence: Fear of current or ex partner: Not on file Emotionally abused: Not on file Physically abused: Not on file Forced sexual activity: Not on file Other Topics Concern Not on file Social History Narrative Pt denies current or past physical, sexual or emotional abuse. Pt states she feels safe at home. Family History Problem Relation Age of Onset Diabetes Paternal Aunt Diabetes Paternal Uncle Diabetes Paternal Grandmother Arthritis NoFHx Asthma NoFHx defects NoFHx Breast Cancer NoFHx Colon Cancer NoFHx Ovarian Cancer NoFHx Cancer NoFHx Uterine Cancer NoFHx Depression NoFHx Genetic NoFHx Heart NoFHx Hypertension NoFHx High cholesterol NoFHx Mental retardation NoFHx Psychiatry NoFHx Osteoporosis NoFHx Neurological NoFHx Review of Systems Constitutional: Positive for irritability. Respiratory: Negative. Negative for apnea, cough, choking, chest tightness, shortness of breath andwheezing. Cardiovascular: Positive for chest pain and palpitations. Negative for leg swelling. Gastrointestinal: Negative. Skin: Negative. Neurological: Positive for dizziness. Psychiatric/Behavioral: Positive for decreased concentration. The patient is nervous/anxious. Endocrine: Endocrine negative Vital Signs BP 110/82 | Pulse 106 | Temp 37 C (98.6 F) | Resp 18 | Ht 5' (1.524 m) | Wt 180 lb 9.6 oz (81.9 kg) | LMP 08/22/2019 (Exact Date) | SpO2 96% | BMI 35.27 kg/m Physical Exam Constitutional: She is oriented to person, place, and time. She appears well- developed and well-nourished. HENT: Head: Normocephalic. Right Ear: External ear normal. Left Ear: External ear normal. Nose: Nose normal. Neck: Normal range of motion. Neck supple. Cardiovascular: Normal rate, regular rhythm, normal heart sounds and intact distal pulses. Exam reveals no gallop and no friction rub. No murmur heard. Pulmonary/Chest: Effort normal and breath sounds normal. No respiratory distress. She has no wheezes. She has no rales. She exhibits no tenderness. Abdominal: Soft. Bowel sounds are normal. She exhibits no distension. There is no tenderness. Neurological: She is alert and oriented to person, place, and time. Skin: Skin is warm and dry. Capillary refill takes less than 2 seconds. No rash noted. No erythema. No pallor. Psychiatric: Her mood appears anxious. Thought content is paranoid. She expresses no homicidal and no suicidal ideation. Nursing note and vitals reviewed. Assessment/Plan 1. Chest pain: will get another EKG, referral made to cardiology 2. Anxiety: CBC, CMP current, will get TSH. Zoloft added daily HS, continue xanax given from the ER.Referral made to PCP DR. Thakkar to establish care and for continued care for anxiety. She does not want to go back to her previous PCP> Patient would like to start on medication regimen. Discussed anxiety medications in detail includingSSRI, buspar. Patient would like to start on Zoloft. Discussed tx in detail including use, how to take, side effects, ER precautions. Patient reports understanding. Recommend adjunct CBT but patient refuses at this time. Agrees to consider Counseled on stress management, relaxation techniques, breathing exercises, aerobic exercise, yoga. Encouraged to avoid caffeine. Recommend Heart healthy diet: low fat/carb/sugar diet; increase lean meat- chicken, turkey, fish; increase vegetables/fruits ( still be careful because elevated sugar level) Recommend Heart Healthy Exercise: total of 150 minutes of cardio: walking,swimming, hiking, biking every week. Follow-up in 4-6 weeks. ER-- If with SI/HI Plan of care, desired health behaviors, goals, and medication discussed with patient. Education resources provided and reviewed with AVS. Patient/guardian/family verbalized understanding & agrees to plan of care. This visit did not involve counseling and coordination that comprised more than 50% of the visit time. If applicable, the [place] [employer] database was accessed to review any controlled substance prescription claims data. The [employer] prescription claims data in [employer] was reviewed to assess patient compliance with the medication treatment plan. Joanne Ramirez MA - 08/23/2019 3:40 PM CDT Goyo Solorio is a 34 year old female Chief Complaint Patient presents with Numbness hands and feet. Feet gets cold and numb all of a sudden. Chest Pain Left side, gets dizzy and feels like she is going to pass out. [facility] called and told herher ekg was abnormal and needs to go back and get a new ekg. Pt states when she breathes in she feela pinch on front left side and on her left top of back. Vitals: 08/23/19 1522 BP: 110/82 Pulse: 106 Resp: 18 Temp: 37 C (98.6 F) SpO2: 96% Weight: 180 lb 9.6 oz (81.9 kg) Height: 5' (1.524 m) [facility]/pharmacy #[id number] All Vitals taken, allergies and all medications reviewed, fall risk assessed. Pain level 0. More of a discomfort. Joanne Chandler MA 08/23/2019 3:25 PM Patient educated on plan of care for visit, swabbing technique, risks and benefits of test and length of time to receive results. Verbal consent obtained to perform test. CDC Fact Sheet for Patients nCoV Diagnostic Panel dated 04/22/2019 provided. documented in this encounter Plan of Treatment Name Type Priority Associated Diagnoses Order S chedule EKG-12 LEAD ROUTINE HEART STATION Routine Chest pain, Ordered : unspecified type 08/23/2019 THYROID STIMULATING LAB Routine Anxiety Expected : HORMONE 08/23/2019, Expires: 08/22/2020 Health Maintenance Due Date Last Done Comments Depression Screening 1997 PAP SMEAR 09/29/2019 09/28/2016, 08/23/2014 INFLUENZA VACCINE (#1) 2019 DTaP,Tdap,and Td Vaccines (3 02/09/2027 02/09/2017, - Td) 02/07/2007 PNEUMOCOCCAL 0-64 YEARS Aged Out No longe r eligible based COMBINED SERIES on patient's age to complete this to [facility] documented as of this encounter Results Not on filedocumented in this encounter Visit Diagnoses Diagnosis Chest pain, unspecified type - Primary Anxiety Anxiety state, unspecified documented in this encounter Insurance Payer Benefit Plan / Subscriber ID Effective Phone Address T ype Group Dates MEDICAID MEDICAID PENDING 2019-[address] [place] [address] documented as of this encounter Advance Directives Name Relationship Healthcare Agent Relationship Co mmunication Nicki Rose Sibling Primary healthcare agent "
--- OUTSIDE RECORDS SUMMARY | 2019-08-23 23:30 | XMS REPORT | Summary of Care ---
:1985 Author Organization [facility] Address [address] [place] [address] Care Team Providers Name Role Phone Joaquin Shruthi Insurance Hmo Jocelyn Stephen [facility] Primary Care Provider Reason for Referral (Routine) Status Reason Specialty Diagnoses / Referred By Referred To Procedures Contact Contact New Request Diagnoses Anxiety Bijan, Wondiful Dany Stephen Procedures Discharge Follow-up: PCP DANY STEPHEN R; 4-6 Weeks MD Jocelyn Lemus, [address] [facility] [address] [place] [address] Phone: Fax: (Routine) Status Reason Specialty Diagnoses / Referred By Referred To Procedures Contact Contact New Request Cardiology Diagnoses Chest pain, unspecified type Marlyn Baca, Procedures CONSULT/REFERRAL CARDIOLOGY [place] [address] [address] Reason for Visit Reason Comments Numbness hands and feet. Feet gets co ld and numb all of a sudden. Chest Pain Left side, gets dizzy and fe els like she is going to pass out. [facility] called and told her her ekg was abnormal and needs to go back and get a new ekg. Pt states whe n she breathes in she feel a pinch on front left side and on her left to p of back. Encounter Details Date Type Department Care Team Description 08/23/2019 Urgent Care [facility] Family [place] Baca, BOAT RIGGER [id number] [place] [phone] Chest pain, unspecified type (Primary Dx ); Medicine - [place] Provider, [facility] Anxiety [address] [place] [address] Allergies No Known Allergiesdocumented as of this encounter (statuses as of 08/23/2019) Medications Medication Sig Dispensed Refills Start Date End Date Status vit Take 1 Packet by 30 Each 6 11/11/2016 Active 13-pcar-rwjkd-dha mouth daily. (SELECT-OB + DHA) 29 mg [...] check with your pharmacist before using any swkx-rkl-dukuskr medicines (OTCs), including herbal supplements. Some OTCs may interact with your anti-anxiety medicines andincrease or decrease their effectiveness. [employer] last reviewed this educational content on 01/07/201919996228-6491 The [employer]. [address] [place] [address]. All rights reserved. This information is not [...] like she is going to pass out. [facility] called and told herher ekg was abnormal [...] been to ER twice as well as [facility] in the past week alone). Her symptoms are attributed to her anxiety but she is 100% non-compliant . She worries about loosing loved ones of her self to covid, and majority of her complaints is based on fear- thus anxious, but feels she needs further cardiac work up. She had a complain of numbness both legs which was addressed in the ER yesterday during which sonogram of both extremities were done and was unremarkable. Anxiety Presents for follow-up visit. Symptoms include [...] food or milk. 60 tablet 1 vit 53-bxuv-mwblf-dha (SELECT-OB + DHA) 29 mg iron-1 mg [...] file Gets together: Not on file Attends anabaptism service: Not on file Active member of [...] daily HS, continue xanax given from the ER as needed . Referral made to PCP DR. Thakkar to establish care and for continued care for anxiety, appointment made for no more than 3-4 weeks. She does not want to go back [...] of the visit time. If applicable, the [facility] database was accessed to review any controlled substance prescription claims data. The [employer] prescription claims data in [employer] was reviewed to assess patient compliance with the medication treatment plan. Joanne Ramirez MA - 08/23/2019 3:40 PM CDT Goyo Solorio is a 34 year old female Chief Complaint Patient presents with Numbness hands and feet. Feet gets cold and numb all of a sudden. Chest Pain Left side, gets dizzy and feels like she is going to pass out. [facility] called and told herher ekg was abnormal [...] oz (81.9 kg) Height: 5' (1.524 m) [facility]/pharmacy #[id number] All Vitals taken, allergies and all [...] documented in this encounter Plan of Treatment Date Type Specialty Care Team Description 08/28/2019 Office Visit Cardiology Forest Muhammad MD [address] [facility] [place] [phone] Name Type Priority Associated Diagnoses Order S [...] on patient's age to complete this to [facility] documented as of this encounter Results Not on filedocumented in this encounter Visit Diagnoses Diagnosis Chest pain, unspecified type - Primary Anxiety Anxiety state, unspecified documented in this encounter Insurance Payer Benefit Plan / Subscriber ID Effective Phone Address T ype Group Dates MEDICAID MEDICAID PENDING 2019-[address] [place] [address] documented as of this encounter Advance Directives Name Relationship Healthcare Agent Relationship Co mmunication Nicki Rose Sibling Primary healthcare agent "
--- OUTSIDE RECORDS SUMMARY | 2019-08-23 23:30 | XMS REPORT | Summary of Care ---
:1985 Author Organization [facility] - [facility] Address [address] [place] [id number] Care Team Providers Name Role Phone Shruthi Nuñez Insurance Hmo Jocelyn Stephen OPTICAL ENGINEER Primary Care Provider Reason for Referral ([place]) Status Reason Specialty Diagnoses / Referred By Referred To Procedures Contact Contact New Request Vascular Surgery Procedures Knvg Chandra, BILATERAL VENOUS OPTICAL ENGINEER DUPLEX LOWER [address] [facility] EXTREMITY BY [place], [place] [facility] [address] Reason for Visit Reason Comments Leg Pain Auth/Cert Status Reason Specialty Diagnoses / Referred By Referred To Procedures Contact Contact Emergency Medicine [facility] Em ergency Dept 0 [facility] [address] Fax: Encounter Details Date Type Department Care Team Description 08/22/2019 Emergency [facility]Emer[facility] Kvng Chandra, Pain of rig ht lower extremity (Primary Dx); Department OPTICAL ENGINEER Pain in both lower extremities; [address] [facility] [address] [place] [address] [id number] Allergies No Known Allergiesdocumented as of this encounter (statuses as of 08/22/2019) Medications Medication Sig Dispensed Refills Start Date End Date Status vit Take 1 Packet by 30 Each 6 11/11/2016 Active 34-[id number]-[id number]-dha mouth daily. (SELECT-OB + DHA) 29 mg [...] Take 1 tablet by 40 tablet 0 08/22/201908/08 Active tabletIndications: mouth every 6 Anxiety (six) hours for 10 days. documented as of this encounter (statuses as [...] Sign Reading Time Taken Comments Blood Pressure 112/93 08/22/2019 2:15 PM CDT Pulse 97 08/22/2019 2:14 PM CDT Temperature 36.4 C (97.6 F) 08/22/2019 2:14 PM CDT Respiratory Rate 16 08/22/2019 2:14 PM CDT Oxygen Saturation 99% 08/22/2019 2:14 PM CDT Inhaled Oxygen Concentration - - Weight 81.6 kg (180 lb) 08/22/2019 2:14 PM CDT Height - - Body Mass Index 34.01 08/22/2019 1:32 PM CDT documented in this encounter Discharge Instructions RobynKvng ramirez R, OPTICAL ENGINEER - 08/22/2019 DIAGNOSIS 1. Leg pain 2. Anxiety NO LIFE-THREATENING FINDINGS ON TODAY'S EXAM. PROCEDURES IN THE ER TODAY: No orders of the defined types were placed in this encounter. MEDICATIONS ADMINISTERED IN THE ER TODAY: Medications - No data to display YOUR PRESCRIPTIONS AND [id number] MEDICATION RECOMMENDATIONS: New Prescriptions No medications on file SPECIAL CARE INSTRUCTIONS: Recommend taking atarax when feeling anxiety. Recommend follow up with PCP for further evaluation. Make sure to hydrate during the heat. FOLLOW-UP RECOMMENDATIONS: RECOMMEND FOLLOW-UP WITH A PRIMARY CARE PROVIDER OR SPECIALIST IN 2-5 DAYS, ESPECIALLY IF NO IMPROVEMENT IN SYMPTOMS. TO FOLLOW-UP WITHIN THE [facility], TRY THESE OPTIONS (CLINIC APPOINTMENTS AVAILABLE ON [id number] BASIS): 1. SCHEDULE AN APPOINTMENT ONLINE AT WWW.[facility] 2. OR CALL THE [facility] AT OR 3. OR CALL YOUR [facility] PHYSICIAN'S OFFICE DIRECTLY IF YOU ARE ALREADY AN ESTABLISHED [facility] PATIENT. OR, YOU MAY FOLLOW-UP WITH A PROVIDER OF YOUR CHOICE, SUCH : 1. A PHYSICIAN OF YOUR CHOICE 2. [facility], . LOCATIONS IN [facility] 3. [facility], [address] [place] [address]; [phone] RETURN TO ER FOR WORSENING OF SYMPTOMS. AttachmentsThe following attachments cannot be sent through Care Everywhere.Pain Response,Understanding (Comoran)Anxiety, Your Body's Response to (Comoran) documented in this encounter Plan of Treatment [...] in this encounter Visit Diagnoses Diagnosis Pain of right lower extremity - Primary Pain in both lower extremities Anxiety Anxiety state, unspecified documented in this encounter Insurance Payer Benefit Plan / Subscriber ID Effective Phone Address T ype Group Dates MEDICAID MEDICAID PENDING [id number] [place] [address] documented as of this encounter Advance Directives Name Relationship Healthcare Agent Relationship Co mmunication Nicki Rose Sibling Primary healthcare agent
[2019-08-24] MEDS ORDERED: NA CHLORIDE 0.9% 1,000 ML ONE (00:13)
[2019-08-24 00:39] LABS: Absolute Lymphocytes (CBC) 3.6 K/uL (0.7-4.9); Basophils % 0.7 % (0-1.3); Hematocrit 41.6 % (36.0-45.0); Lymphocytes % 25.1 % (15.3-44.8); MPV 7.7 fL (7.6-11.3); RBC Red Blood Cell Count 5.23 M/uL (3.86-4.86)
[2019-08-24 00:53] LABS: ALT/SGPT 12 U/L (12-78); AST/SGOT 12 U/L (15-37); Albumin 3.4 g/dL (3.4-5.0); Alkaline Phosphatase 61 U/L (45-117); BUN Blood Urea Nitrogen 12 mg/dL (7-18); Bicarbonate 23 mmol/L (21-32); Bilirubin Direct 0.1 mg/dL (0-0.2); Bilirubin Total 0.4 mg/dL (0.2-1.0); Glucose Level 94 mg/dL (74-106); Lipase 187 U/L (73-393); Magnesium 2.2 mg/dL (1.8-2.4); NT PRO-BNP 10 pg/mL (<125); Potassium 3.5 mmol/L (3.5-5.1); Protein, Total 8.5 g/dL (6.4-8.2); Sodium Level 141 mmol/L (136-145); Troponin (Emerg Dept Use Only) < 0.02 ng/mL (0.0-0.045)
[2019-08-24 02:08] LABS: Urine Blood 2+ (NEG); Urine Glucose NEGATIVE (NEG); Urine Protein NEGATIVE (NEG)
--- NOTE | 2019-08-24 02:27 | ER ---
Nurse's Notes [facility] Name: Goyo Solorio Age: 34 yrs Sex: Female : 1985 Arrival Date: 08/23/2019 Time: 23:28 Bed 7 Private MD: Diagnosis: Chest pain, unspecified;Abnormal electrocardiogram [ECG] [EKG];Tachycardia, unspecified;Elevated white blood cell count Presentation: 08/22 23:45 Chief complaint: Patient states: that she was here 2 days ago for chest pain, back pain fc and dizziness. States that she has not gotten any better and just wants to find out what is wrong with her. Initial Sepsis Screen: Does the patient meet any 2 criteria? HR > 90 bpm. No. Patient's initial sepsis screen is negative. Does the patient have a suspected source of infection? No. Patient's initial sepsis screen is negative. Risk Assessment: Do you want to hurt yourself or someone else? Patient reports no desire to harm self or others. Onset of symptoms was August 19, 2019. Transition of care: patient was not received from another setting of care. 23:45 Method Of Arrival: Ambulatory 23:45 Acuity: EUGENIO 3 fc 23:45 Coronavirus screen: Patient denies a cough. Patient reports shortness of breath or fc difficulty breathing. Patient denies measured and/or subjective temperature greater than 100.4F prior to today's visit. Patient denies travel on a cruise ship or to a country the [facility] currently lists as an affected area. Patient denies contact with known and/or suspected case of COVID-19. Prior COVID test negative per patient. Ebola Screen: Patient negative for fever greater than or equal to 101.5 degrees Fahrenheit, and additional compatible Ebola Virus Disease symptoms Patient denies exposure to infectious person. Patient denies travel to an Ebola-affected area in the 21 days before illness onset. Triage Assessment: 08/23 00:10 Respiratory: Onset: The symptoms/episode began/occurred gradually, the patient has mild jd3 shortness of breath. 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 - Social history:: Smoking status: Reported history of juuling and/or vaping. Patient/guardian denies using tobacco, Stopped _ months ago 1 Patient/guardian denies using alcohol, street drugs. Screenin/16 23:45 Abuse screen: Denies threats or abuse. Nutritional screening: No deficits noted. fc Tuberculosis screening: No symptoms or risk factors identified. Fall Risk None identified. Assessment: 08/23 00:08 General: Appears uncomfortable, Behavior is cooperative, appropriate for age, anxious. jd3 Pain: Complains of pain in chest Pain radiates to back Quality of pain is described as aching, crampy, pressure. Neuro: Level of Consciousness is awake, alert, obeys commands, Oriented to person, place, time, situation. Cardiovascular: Reports chest pain, Capillary refill < 3 seconds Patient's skin is warm and dry. Rhythm is sinus tachycardia. Respiratory: Reports shortness of breath Airway is patent Respiratory effort is even, unlabored, Respiratory pattern is regular, symmetrical, Denies cough. GI: No signs and/or symptoms were reported involving the gastrointestinal system. Patient currently denies diarrhea, nausea, vomiting. : No signs and/or symptoms were reported regarding the genitourinary system. EENT: No signs and/or symptoms were reported regarding the EENT system. Derm: Skin is intact, Skin is dry, Skin is normal, Skin temperature is warm. Musculoskeletal: Circulation, motion, and sensation intact. Range of motion: intact in all extremities. 00:38 Reassessment: Patient appears in no apparent distress at this time. No changes from jd3 previously documented assessment. Patient and/or family updated on plan of care and expected duration. Pain level reassessed. Patient is alert, oriented x 3, equal unlabored respirations, skin warm/dry/pink. 01:46 Reassessment: Patient appears in no apparent distress at this time. Patient and/or [facility] family updated on plan of care and expected duration. Pain level reassessed. Patient is alert, oriented x 3, equal unlabored respirations, skin warm/dry/pink. awaiting results. 02:30 Reassessment: Patient appears in no apparent distress at this time. No changes from jd3 previously documented assessment. Patient and/or family updated on plan of care and expected duration. Pain level reassessed. Patient is alert, oriented x 3, equal unlabored respirations, skin warm/dry/pink. 02:30 Reassessment: Patient appears in no apparent distress at this time. Patient and/or jd3 family updated on plan of care and expected duration. Pain level reassessed. Patient is alert, oriented x 3, equal unlabored respirations, skin warm/dry/pink. pt voicing anxiety over taking prescribed medications, verbal reassurance given and medications explained. awaiting medication administration. 04:21 Reassessment: Patient appears in no apparent distress at this time. Patient and/or jd3 family updated on plan of care and expected duration. Pain level reassessed. Patient is alert, oriented x 3, equal unlabored respirations, skin warm/dry/pink. pt refused Lovenox, provider notified. pt resting in bed comfortably. pt expresses anxiety, verbal reassurance given. Vital Signs: 08/22 23:45 BP 123 / 90; Pulse 105; Resp 20; Temp 98.2(O); Pulse Ox 100% on R/A; Weight 81.65 kg fc (R); Height 5 ft. 0 in. (152.40 cm) (R); Pain 6/10; 08/23 00:38 BP 126 / 90; Pulse 100; Resp 17 S; Pulse Ox 100% on R/A; jd3 01:47 BP 118 / 90; Pulse 91; Resp 17 S; Pulse Ox 100% on R/A; jd3 03:12 BP 112 / 79; Pulse 107; Resp 17 S; Pulse Ox 99% on R/A; jd3 04:21 BP 120 / 89; Pulse 102; Resp 17 S; Pulse Ox 98% on R/A; jd3 08/22 23:45 Body Mass Index 35.15 (81.65 kg, 152.40 cm) ED Course: 08/22 23:28 Patient arrived in ED. do 23:34 Mike Veliz MD is Attending Physician. nicol 23:45 Arm band placed on Patient placed in an exam room, on a stretcher. fc 23:45 Patient has correct armband on for positive identification. Placed in gown. Bed in low fc position. Call light in reach. Side rails up X2. exchange operator on. Pulse ox on. NIBP on. 23:45 No provider procedures requiring assistance completed. 23:53 Triage completed. 23:57 Jose Cruz Guevara, JAVIER is Primary Nurse. jd3 08/23 00:11 XRAY Chest (1 view) In Process Unspecified. EDMS 00:29 Inserted saline lock: 20 gauge in left antecubital area, using aseptic technique. Blood oe collected. 01:18 CT Aorta for Dissection In Process Unspecified. EDMS 02:24 Claudette Casillas MD is Hospitalizing Provider. nicol 04:23 Patient admitted, IV remains in place. jd3 Administered Medications: 00:25 Drug: NS 0.9% 500 ml Route: IV; Rate: bolus; Site: left antecubital; jd3 01:25 Follow up: Response: No adverse reaction; IV Status: Completed infusion; IV Intake: jd3 500ml 01:20 Drug: NS 0.9% 1000 ml Route: IV; Rate: 125 ml/hr; Site: left antecubital; jd3 04:20 Follow up: Response: No adverse reaction; IV Status: Infusion continued upon admission jd3 03:00 Drug: ToPROL XL 25 mg Route: PO; jd3 04:00 Follow up: Response: No adverse reaction jd3 04:16 Drug: Aspirin 162 mg Route: PO; jd3 04:20 Follow up: Response: No adverse reaction jd3 04:20 Not Given (Patient Refused): Lovenox 1 mg/kg Sub-Q once jd3 Intake: 01:25 IV: 500ml; Total: 500ml. jd3 Outcome: 02:26 Decision to Hospitalize by Provider. nicol 04:22 Admitted to ER Hold. Please see [facility] for further documentation. jd3 04:22 Condition: stable 04:22 Instructed on the need for admit, Demonstrated understanding of instructions. 07:43 Patient left the ED. sv Signatures: Dispatcher [employer] Maya Houston RN RN Mike Palmer MD MD cha Chretien, Felicia, RN RN Amberly Schuler Orlando oe Davies, Jonathon, RN RN jd3 Corrections: (The following items were deleted from the chart) 00:10 00:08 Respiratory: Reports shortness of breath at rest Airway is patent Respiratory jd3 effort is even, unlabored, Respiratory pattern is regular, symmetrical, Denies cough, jd3
--- NOTE | 2019-08-24 02:27 | EDPHYS ---
Physician Documentation [facility] Name: Goyo Solorio Age: 34 yrs Sex: Female : 1985 Arrival Date: 08/23/2019 Time: 23:28 Bed 7 Private MD: ED Physician Mike Veliz HPI: 08/22 23:55 This 34 yrs old Female presents to ER via Ambulatory with complaints of nicol Breathing Difficulty, Back Pain, Left Side Pain. 23:55 The patient has shortness of breath at rest, with light activity. Onset: The nicol symptoms/episode began/occurred 2 day(s) ago. Duration: The symptoms are intermittent, with no pattern. The patient's shortness of breath has no apparent modifying factors. Associated signs and symptoms: Pertinent positives: non-productive cough. Severity of symptoms: At their worst the symptoms were mild in the emergency department the symptoms are unchanged. The patient has not experienced similar symptoms in the past. 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 - Social history:: Smoking status: Reported history of juuling and/or vaping. Patient/guardian denies using tobacco, Stopped _ months ago 1 Patient/guardian denies using alcohol, street drugs. ROS: 00:01 Constitutional: Negative for fever, chills, and weight loss, Eyes: Negative for injury, nicol pain, redness, and discharge, ENT: Negative for injury, pain, and discharge, Neck: Negative for injury, pain, and swelling, Cardiovascular: Negative for chest pain, palpitations, and edema, Respiratory: Negative for shortness of breath, cough, wheezing, and pleuritic chest pain, Abdomen/GI: Negative for abdominal pain, nausea, vomiting, diarrhea, and constipation, : Negative for injury, bleeding, discharge, and swelling, MS/Extremity: Negative for injury and deformity, Skin: Negative for injury, rash, and discoloration, Neuro: Negative for headache, weakness, numbness, tingling, and seizure, Psych: Negative for depression, anxiety, suicide ideation, homicidal ideation, and hallucinations, Allergy/Immunology: Negative for hives, rash, and allergies, Endocrine: Negative for neck swelling, polydipsia, polyuria, polyphagia, and marked weight changes, Hematologic/Lymphatic: Negative for swollen nodes, abnormal bleeding, and unusual bruising. 00:01 Back: Positive for pain at rest. Exam: 00:01 Constitutional: This is a well developed, well nourished patient who is awake, alert, nicol and in no acute distress. Head/Face: Normocephalic, atraumatic. Eyes: Pupils equal round and reactive to light, extra-ocular motions intact. Lids and lashes normal. Conjunctiva and sclera are non-icteric and not injected. Cornea within normal limits. Periorbital areas with no swelling, redness, or edema. ENT: Nares patent. No nasal discharge, no septal abnormalities noted. Tympanic membranes are normal and external auditory canals are clear. Oropharynx with no redness, swelling, or masses, exudates, or evidence of obstruction, uvula midline. Mucous membranes moist. Neck: Trachea midline, no thyromegaly or masses palpated, and no cervical lymphadenopathy. Supple, full range of motion without nuchal rigidity, or vertebral point tenderness. No Meningismus. Chest/axilla: Normal chest wall appearance and motion. Nontender with no deformity. No lesions are appreciated. Respiratory: Lungs have equal breath sounds bilaterally, clear to auscultation and percussion. No rales, rhonchi or wheezes noted. No increased work of breathing, no retractions or nasal flaring. Abdomen/GI: Soft, non-tender, with normal bowel sounds. No distension or tympany. No guarding or rebound. No evidence of tenderness throughout. Back: No spinal tenderness. No costovertebral tenderness. Full range of motion. Female : Normal external genitalia. Skin: Warm, dry with normal turgor. Normal color with no rashes, no lesions, and no evidence of cellulitis. MS/ Extremity: Pulses equal, no cyanosis. Neurovascular intact. Full, normal range of motion. Neuro: Awake and alert, GCS 15, oriented to person, place, time, and situation. Cranial nerves II-XII grossly intact. Motor strength 5/5 in all extremities. Sensory grossly intact. Cerebellar exam normal. Normal gait. Psych: Awake, alert, with orientation to person, place and time. Behavior, mood, and affect are within normal limits. 00:01 Cardiovascular: Rate: tachycardic, Rhythm: regular, Pulses: Pulses are 4+ in bilateral radial, brachial, femoral, popliteal, posterior tibial and and dorsalis pedis arteries.. Heart sounds: normal, Edema: is not appreciated, JVD: is not appreciated. 00:18 ECG was reviewed by the Attending Physician. [facility] 03:02 ECG was reviewed by the Attending Physician. [facility] Vital Signs: 08/22 23:45 BP 123 / 90; Pulse 105; Resp 20; Temp 98.2(O); Pulse Ox 100% on R/A; Weight 81.65 kg fc (R); Height 5 ft. 0 in. (152.40 cm) (R); Pain 6/10; 08/23 00:38 BP 126 / 90; Pulse 100; Resp 17 S; Pulse Ox 100% on R/A; jd3 01:47 BP 118 / 90; Pulse 91; Resp 17 S; Pulse Ox 100% on R/A; jd3 03:12 BP 112 / 79; Pulse 107; Resp 17 S; Pulse Ox 99% on R/A; jd3 04:21 BP 120 / 89; Pulse 102; Resp 17 S; Pulse Ox 98% on R/A; jd3 08/22 23:45 Body Mass Index 35.15 (81.65 kg, 152.40 cm) fc MDM: 08/22 23:34 Patient medically screened. [facility] 08/23 00:05 Differential diagnosis: CHF exacerbation, Myocardial Infarction pulmonary edema, nicol Pulmonary Embolism Unstable Angina. Antibiotic administration: Not indicated. The patient's Wells Deep Vein Thrombosis Score was calculated as follows: Heart Rate >100 BPM (1.5 Pts) Total Score: 0-2 Pts- Low Risk. The patient's pulmonary embolism risk score was calculated as follows: the patients heart rate is greater than 100 beats per minute (1.5 Pts) Total Score: 0-2 points. This patient was found to be at low risk for a pulmonary embolism by using the Well's assessment criteria. Immunization status:. Data reviewed: vital signs, nurses notes, lab test result(s), EKG, radiologic studies, CT scan, plain films. 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 08/22 23:54 Order name: Basic Metabolic Panel; Complete Time: 01:39 [facility] 08/22 23:54 Order name: CBC with Diff; Complete Time: 01:39 [facility] 08/22 23:54 Order name: LFT's; Complete Time: 01:39 [facility] 08/22 23:54 Order name: Magnesium; Complete Time: 01:39 [facility] 08/22 23:54 Order name: NT PRO-BNP; Complete Time: 01:39 [facility] 08/22 23:54 Order name: Troponin (emerg Dept Use Only); Complete Time: 01:39 [facility] 08/22 23:54 Order name: Lipase; Complete Time: 01:39 [facility] 08/23 01:28 Order name: Urine --Ancillary (enter results); Complete Time: 02:16 tt08/23 01:28 Order name: Urine Dipstick--Ancillary (enter results); Complete Time: 02:16 tt3 08/23 04:24 Order name: Lipid Profile [facility] 08/23 04:24 Order name: Lipid Profile [facility] 08/23 04:24 Order name: Troponin I [facility] 08/23 04:24 Order name: Troponin I [facility] 08/23 04:24 Order name: Troponin I [facility] 08/22 23:54 Order name: XRAY Chest (1 view) [facility] 08/22 23:54 Order name: EKG; Complete Time: 23:55 [facility] 08/22 23:54 Order name: Cardiac monitoring; Complete Time: 23:58 [facility] 08/22 23:54 Order name: EKG - Nurse/Tech; Complete Time: 00:26 [facility] 08/23 00:12 Order name: CT Aorta for Dissection [facility] 08/23 02:23 Order name: EKG; Complete Time: 02:24 [facility] 08/23 04:24 Order name: Heart Healthy [facility] 08/23 04:24 Order name: Echo with Doppler [facility] 08/23 04:24 Order name: EKG Electrocardiogram [facility] 08/23 04:24 Order name: EKG Electrocardiogram [facility] 08/22 23:54 Order name: IV Saline Lock; Complete Time: 00:26 [facility] 08/22 23:54 Order name: Labs collected and sent; Complete Time: 00:27 [facility] 08/22 23:54 Order name: O2 Per Protocol; Complete Time: 23:57 [facility] 08/22 23:54 Order name: O2 Sat Monitoring; Complete Time: 23:57 [facility] 08/22 23:54 Order name: Urine Dipstick-Ancillary (obtain specimen); Complete Time: 01:20 [facility] 08/22 23:54 Order name: Urine Test (obtain specimen); Complete Time: 01:20 [facility] 08/23 02:23 Order name: EKG - Nurse/Tech; Complete Time: 03:00 [facility] EC:18 Rate is 105 beats/min. Rhythm is regular. QRS [place] is Normal. [place] interval is normal. [facility] QRS interval is normal. QT interval is normal. No Q waves. T waves are Normal. No ST changes noted. Clinical impression: Sinus tachycardia. Interpreted by me. Reviewed by me. 03:02 Rate is 113 beats/min. Rhythm is regular. QRS [place] is Normal. [place] interval is normal. [facility] QRS interval is normal. QT interval is normal. No Q waves. T waves are Normal. No ST changes noted. Clinical impression: Sinus tachycardia. Interpreted by me. Reviewed by me. Administered Medications: 00:25 Drug: NS 0.9% 500 ml Route: IV; Rate: bolus; Site: left antecubital; jd3 01:25 Follow up: Response: No adverse reaction; IV Status: Completed infusion; IV Intake: jd3 500ml 01:20 Drug: NS 0.9% 1000 ml Route: IV; Rate: 125 ml/hr; Site: left antecubital; jd3 04:20 Follow up: Response: No adverse reaction; IV Status: Infusion continued upon admission jd3 03:00 Drug: ToPROL XL 25 mg Route: PO; jd3 04:00 Follow up: Response: No adverse reaction jd3 04:16 Drug: Aspirin 162 mg Route: PO; jd3 04:20 Follow up: Response: No adverse reaction jd3 04:20 Not Given (Patient Refused): Lovenox 1 mg/kg Sub-Q once jd3 Disposition: 08/24/19 02:26 Hospitalization ordered by Claudette Casillas for Observation. Preliminary diagnosis are Chest pain, unspecified, Abnormal electrocardiogram [ECG] [EKG], Tachycardia, unspecified, Elevated white blood cell count. - Bed requested for Telemetry/MedSurg (observation). - Status is Observation. sv - Condition is Stable. - Problem is new. - Symptoms have improved. Signatures: Dispatcher [employer] EDMA Maya Mancilla, RN RN Mike Palmer MD MD cha Chretien, Felicia RN RN fc Angeles Ruelas RN RN cg Jose Cruz Guevara RN RN jJos Abdi tt3 Corrections: (The following items were deleted from the chart) 00:12 08/22 23:55 Angio Aorta For Dissection+CT.RAD.BRZ ordered. [facility] 08/23 04:50 02:26 Hospitalization Ordered by Claudette Casillas MD for Observation. Preliminary tt3 diagnosis is Chest pain, unspecified; Abnormal electrocardiogram [ECG] [EKG]; Tachycardia, unspecified; Elevated white blood cell count. Bed requested for Telemetry/MedSurg (observation). Status is Observation. Condition is Stable. Problem is new. Symptoms have improved. [facility] 05:49 04:50 08/24/2019 02:26 Hospitalization Ordered by Claudette Casillas MD for Observation. cg Preliminary diagnosis is Chest pain, unspecified; Abnormal electrocardiogram [ECG] [EKG]; Tachycardia, unspecified; Elevated white blood cell count. Bed requested for [facility] ER HOLD. Status is Observation. Condition is Stable. Problem is new. Symptoms have improved. tt3 07:43 05:49 08/24/2019 02:26 Hospitalization Ordered by Claudette Casillas MD for Observation. sv Preliminary diagnosis is Chest pain, unspecified; Abnormal electrocardiogram [ECG] [EKG]; Tachycardia, unspecified; Elevated white blood cell count. Bed requested for Telemetry/MedSurg (observation). Status is Observation. Condition is Stable. Problem is new. Symptoms have improved. cg
[2019-08-24] MEDS ORDERED: ASPIRIN 81 MG CHEWABLE TABLET ONE (02:48)
[2019-08-24] MEDS ORDERED: ENOXAPARIN 80 MG/0.8 ML SQ ONE (02:48)
[2019-08-24] MEDS ORDERED: METOPROLOL XL 25 MG TAB PO ONE (02:56)
[2019-08-24] MEDS ORDERED: MORPHINE 4 MG/ML SYR IV PRN (04:19)
[2019-08-24] MEDS ORDERED: ACETAMINOPHEN 500 MG TAB PO PRN (04:19)
[2019-08-24] MEDS: METOPROLOL TAR 50 MG TAB PO SCH ×2 (05:08→09:00)
[2019-08-24 05:20] VITALS: BMI 35.2
--- NOTE | 2019-08-24 05:30 | P.HP ---
Certification for Inpatient Patient admitted to: Observation With expected LOS: <2 Midnights Patient will require the following post-hospital care: None Practitioner: I am a practitioner with admitting privileges, knowledge of patient current condition, hospital course, and medical plan of care. Services: Services provided to patient in accordance with Admission requirements found in Title 42 Section 412.3 of the Code of Federal Regulations Patient History Date of Service: 08/24/19 Reason for admission: Chest pain rule out acute coronary syndrome History of Present Illness: Patient is a 34-year-old female came to the hospital with chest discomfort.Pain was mainly in the sternal region. Patient will also shorter breath. Patient came into the hospital for further evaluation. In the emergency room patient's initial troponins and EKG were negative. She will be admitted to the hospital for further evaluation. Allergies No Known Drug Allergies Allergy (Verified 08/24/19 09:00) Unknown Home Medications: LORazepam [Ativan] 0.5 mg PO BID PRN #30 tab 08/24/19 Metoprolol Tartrate [Lopressor*] 25 mg PO BID #60 tab 08/24/19 - Past Medical/Surgical History Diabetic: No -: Chlamydia 2014 -: Appendectomy 2012 - Family History Father Medical History: Diabetes - Social History Smoking Status: Smoker current status UNK Alcohol use: No CD- Drugs: No Caffeine use: No Place of Residence: Home Review of Systems 10-point ROS is otherwise unremarkable Physical Examination - Vital Signs Temperature: 98 F Blood Pressure: 140/80 Pulse: 88 Respirations: 18 Pulse Ox (%): 96 - Physical Exam General: Alert, In no apparent distress, Oriented x3, Obese HEENT: Atraumatic, PERRLA, Mucous membr. moist/pink, EOMI, Sclerae nonicteric Neck: Supple, 2+ carotid pulse no bruit, No LAD, Without JVD or thyroid abnormality Respiratory: Clear to auscultation bilaterally, Normal air movement Cardiovascular: Regular rate/rhythm, Normal S1 S2 Gastrointestinal: Normal bowel sounds, No tenderness Musculoskeletal: No tenderness Integumentary: No rashes Neurological: Normal gait, Normal speech, Normal strength at 5/5 x4 extr, Normal tone, Normal affect Lymphatics: No axilla or inguinal lymphadenopathy - Studies Laboratory Data (last 24 hrs) 08/24/19 00:21: WBC 14.3 H, Hgb 13.7, Hct 41.6, Plt Count 346 08/24/19 00:21: Sodium 141, Potassium 3.5, BUN 12, Creatinine 0.64, Glucose 94, Magnesium 2.2, Total Bilirubin 0.4, AST 12 L, ALT 12, Alkaline Phosphatase 61, Lipase 187 Assessment & Plan - Problems (Diagnosis) (1) Chest pain, rule out acute myocardial infarction Status: Acute - Plan 1. Serial troponins and EKG 2. Appreciate Cardiology consultation 3. Echocardiogram and stress test if cardiology is agreeable 4. Anti-platelet therapy, anti coagulation, beta-alda, statin, and O2 as ne eded 5. IV morphine for pain 6. Nitro p.r.n. Discharge Plan: Home Plan to discharge in: 24 Hours - Advance Directives Does patient have a Living Will: No Does patient have a Durable POA for Healthcare: No - Code Status/Comfort Care Code Status Assessed: Yes Code Status: Full Code Critical Care: No Time Spent Managing PTS Care (In Minutes): 40
[2019-08-24 06:31] LABS: HDL Cholesterol 54 mg/dL (40-60); LDL Cholesterol, Calculated 68 (<130); Troponin I < 0.02 ng/mL (0.0-0.045)
--- NOTE | 2019-08-24 06:46 | EKG ---
Test Date: 2019-08-24 Test Time: 00:07:12 Incubator Tender: PAUL MEASUREMENT RESULTS: Intervals: Rate: 105 AK: 148 QRSD: 84 QT: 356 QTc: 470 [place]: P: 45 AK: 148 QRS: 48 T: 7 INTERPRETIVE STATEMENTS: Sinus tachycardia Possible Left atrial enlargement Borderline ECG Compared to ECG 08/21/2019 03:44:44 Sinus rhythm no longer present Myocardial infarct finding no longer present Electronically Signed On 08-24-19 06:45:30 CDT by Javon Carranza
--- NOTE | 2019-08-24 06:46 | EKG ---
Test Date: 2019-08-24 Test Time: 02:47:27 Insurance Claim Representative: PAUL MEASUREMENT RESULTS: Intervals: Rate: 113 DC: 156 QRSD: 82 QT: 342 QTc: 469 [place]: P: 50 DC: 156 QRS: 63 T: 8 INTERPRETIVE STATEMENTS: Sinus tachycardia Possible Left atrial enlargement Borderline ECG Compared to ECG 08/24/2019 00:07:12 No significant changes Electronically Signed On 08-24-19 06:45:28 CDT by Javon Carranza
[2019-08-24 08:07] VITALS: O2SAT 98
[2019-08-24] MEDS ORDERED: ASPIRIN EC 81 MG TAB PO SCH (09:00)
[2019-08-24] MEDS ORDERED: ENOXAPARIN 40 MG/0.4 ML SQ SCH (09:00)
--- NOTE | 2019-08-24 09:41 | RAD REPORT ---
EXAM DESCRIPTION: RAD - Chest Single View - 08/24/2019 12:10 am CLINICAL HISTORY: CHEST PAIN COMPARISON: August 20 TECHNIQUE: AP portable chest image was obtained 08/24/2019 12:10 am . FINDINGS: Lung volumes are low. Lung matta remain clear of any focal mass or consolidation. No grou nd-glass opacification seen. Heart and vasculature are normal. No measurable pleural effusion and no pneumothorax. No acute bony abnormality seen. No acute aortic findings suspected. IMPRESSION: No acute cardiopulmonary process. No new finding from August 20 imaging.
[2019-08-24 11:14] LABS: Thyroid Stimulating Hormone 0.459 uIU/mL (0.360-3.740)
--- NOTE | 2019-08-24 20:25 | RAD REPORT ---
EXAM DESCRIPTION: CT - Angio Aorta For Dissection - 08/24/2019 6:26 am CLINICAL HISTORY: The patient is 34 years old and is Female; Dyspnea;Dissection;PE TECHNIQUE: Axial computed tomographic angiography images of the chest, abdomen and pelvis with intra venous contrast. Sagittal and coronal reformatted images were created and reviewed. This CT exam was performed using one or more of the following dose reduction techniques: automated exposure cont rol, adjustment of the mA and/or kV according to patient size, and/or use of iterative reconstruction technique. MIP reconstructed images were created and reviewed. COMPARISON: No relevant prior studies available. FINDINGS: VASCULATURE: AORTA: No acute findings. No aortic aneurysm. No dissection. PULMONARY ARTERIES: There are no obvious filling defects identified within the pulmonary arteries to suggest pulmonary embolism. GREAT VESSELS OF AORTIC ARCH: No acute findings. No dissection. No arterial occlusion or sig nificant stenosis. CELIAC TRUNK AND MESENTERIC ARTERIES: No acute findings. No occlusion or significant stenosis. RENAL ARTERIES: No acute findings. No occlusion or significant stenosis. ILIAC ARTERIES: No acute findings. No occlusion or significant stenosis. CHEST: LUNGS: Unremarkable. No mass. No consolidation. PLEURAL SPACE: Unremarkable. No significant effusion. No pneumothorax. HEART: Unremarkable. No cardiomegaly. No significant pericardial effusion. ABDOMEN: LIVER: Unremarkable. No mass. GALLBLADDER AND BILE DUCTS: Unremarkable. No calcified stones. No ductal dilation. PANCREAS: Unremarkable. No ductal dilation. No mass. SPLEEN: Unremarkable. No splenomegaly. ADRENALS: Unremarkable. No mass. KIDNEYS AND URETERS: Unremarkable. No hydronephrosis. No solid mass. STOMACH AND BOWEL: The stomach is minimally distended with food contents. The small bowel is norm al in caliber. Minimal stool is noted throughout colon. There is no mucosal thickening or evidence of bowel obstruction. Scattered colonic diverticula are noted without surrounding inflammation. PELVIS: APPENDIX: No findings to suggest acute appendicitis. BLADDER: Unremarkable. No mass. REPRODUCTIVE: Unremarkable as visualized. CHEST, ABDOMEN and PELVIS: INTRAPERITONEAL SPACE: Unremarkable. No significant fluid collection. No free air. BONES/JOINTS: No acute fracture. No dislocation. SOFT TISSUES: Unremarkable. LYMPH NODES: Unremarkable. No enlarged lymph nodes. IMPRESSION: 1. No evidence of aortic aneurysm or dissection. 2. No evidence of pulmonary embolism. Electronically signed by: Liberty Rubalcava MD 08/24/2019 1:30 AM CDT Due to temporary technical issues with the PACS/Fluency reporting system, reports are being signed by the in house radiologist without review as a courtesy to ensure prompt reporting. The interpreting r adiologist is fully responsible for the content of the report.
--- NOTE | 2019-08-25 12:53 | ECHO ---
HEIGHT: 5 ft 0 in WEIGHT: 180 lb 0.119 oz DATE OF STUDY: 08/24/[address]: Claudette Casillas MD 2-DIMENSIONAL: YES M.MODE: YES DOPPLER: YES COLOR FLOW: YES TDS: YES PORTABLE: DEFINITY: BUBBLE STUDY: DIAGNOSIS: CHEST PAIN CARDIAC HISTORY: CATHERIZATION: NO SURGERY: NO PROSTHETIC VALVE: NO PACEMAKER: NO MEASUREMENTS (cm) DIASTOLIC (NORMALS) SYSTOLIC (NORMALS) IVSd 0.9 (0.6-1.2) LA Diam 3.4 (1.9-4.0) LVEF 76% LVIDd 4.1 (3.5-5.7) LVIDs 2.3 (2.0-3.5) %FS 44% LVPWd 1.0 (0.6-1.2) Ao Diam 2.7 (2.0-3.7) 2 DIMENSIONAL ASSESSMENT: RIGHT ATRIUM: NORMAL LEFT ATRIUM: NORMAL RIGHT VENTRICLE: NORMAL LEFT VENTRICLE: NORMAL TRICUSPID VALVE: NORMAL MITRAL VALVE: NORMAL PULMONIC VALVE: NORMAL AORTIC VALVE: NORMAL PERICARDIAL EFFUSION: NONE AORTIC ROOT: NORMAL LEFT VENTRICULAR WALL MOTION: NORMAL DOPPLER/COLOR FLOW: NORMAL COMMENTS: NORMAL 2-DIMENSIONAL ECHOCARDIOGRAM WITH DOPPLER. NO WALL MOTION ABNORMALITY. NO EFFUSION. TECHNOLOGIST: NOEMÍ CASTILLO
[2019-09-01 02:10] VITALS: BP 140/80; TEMP 98
--- NOTE | 2019-09-01 02:11 | P.DS ---
Discharge Date: 08/24/19 Disposition: ROUTINE DISCHARGE Discharge Condition: GOOD Reason for Admission: Chest pain rule out acute coronary syndrome - Problems (1) Chest pain, rule out acute myocardial infarction Status: Acute Brief History of Present Illness: Patient is a 34-year-old female came to the hospital with chest discomfort.Pain was mainly in the sternal region. Patient will also shorter breath. Patient came into the hospital for further evaluation. In the emergency room patient's initial troponins and EKG were negative. She will be admitted to the hospital for further evaluation. Hospital Course: Patient did well during hospital stay. Patient was ruled out for acute coronary syndrome. Patient will follow up as an outpatient with cardiology for further evaluation. At this time patient is stable for discharge with outpatient followup. Vital Signs/Physical Exam: Temp Pulse Resp BP Pulse Ox 98 F 88 18 140/80 96 09/01/19 02:10 09/01/19 02:10 09/01/19 02:10 09/01/19 02:10 09/01/19 02:10 General: Alert, In no apparent distress, Oriented x3 Laboratory Data at Discharge: WBC 14.3 K/uL (4.3-10.9) H 08/24/19 00:21 Hgb 13.7 g/dL (12.0-15.0) 08/24/19 00:21 Hct 41.6 % (36.0-45.0) 08/24/19 00:21 Plt Count 346 K/uL (152-406) 08/24/19 00:21 Sodium 141 mmol/L (136-145) 08/24/19 00:21 Potassium 3.5 mmol/L (3.5-5.1) 08/24/19 00:21 BUN 12 mg/dL (7-18) 08/24/19 00:21 Creatinine 0.64 mg/dL (0.55-1.3) 08/24/19 00:21 Glucose 94 mg/dL (74-106) 08/24/19 00:21 Magnesium 2.2 mg/dL (1.8-2.4) 08/24/19 00:21 Total Bilirubin 0.4 mg/dL (0.2-1.0) 08/24/19 00:21 AST 12 U/L (15-37) L 08/24/19 00:21 ALT 12 U/L (12-78) 08/24/19 00:21 Alkaline Phosphatase 61 U/L (45-117) 08/24/19 00:21 Troponin I < 0.02 ng/mL (0.0-0.045) 08/24/19 10:26 Triglycerides 78 mg/dL (<150) 08/24/19 06:04 Cholesterol 138 mg/dL (<200) 08/24/19 06:04 HDL Cholesterol 54 mg/dL (40-60) 08/24/19 06:04 Cholesterol/HDL Ratio 2.56 08/24/19 06:04 Lipase 187 U/L (73-393) 08/24/19 00:21 Home Medications: LORazepam [Ativan] 0.5 mg PO BID PRN #30 tab 08/24/19 Metoprolol Tartrate [Lopressor*] 25 mg PO BID #60 tab 08/24/19 New Medications: LORazepam [Ativan] 0.5 mg PO BID PRN #30 tab PRN Reason: Anxiety Metoprolol Tartrate [Lopressor*] 25 mg PO BID #60 tab Patient Discharge Instructions: OK TO DC IV AND DC HOME-PLEASE CALL FOR ANXIETY MEDS AT AL. FOLLOW-UP WITH PRIMARY CARE PROVIDER IN 1-2 WEEKS. FOLLOW- UP WITH CARDIOLOGY IN 1-2 WEEKS. RETURN TO THE ER IF SYMPTOMS WORSENS. CALL or TEXT DR. LEE AT [phone] IF ANY QUESTIONS REGARDING HOSPITAL STAY. PLEASE CALL THE FLOOR AT [phone] IF ANY MEDICATION OR NURSING QUESTIONS. Diet: AHA Activity: Ad bhavna Followup: Javon Carranza MD [ACTIVE - CAN ADMIT] - Time spent managing pt's care (in minutes): 20
== END 2019-08-24 12:25 | disposition home or self-care (01) | DRG 313 ==
LOC: ER 23:27 → OBSVTOIN 08-24 04:27 → INTOOBSV 08-24 04:27 → ERHOLD 08-24 04:27 → OBSVTOIN 08-24 07:28 → 2ND 08-24 07:32
PROVIDERS: ADMIT Hospitalist; ATTEND Hospitalist
DX: R07.9 Chest pain, unspecified (principal); E66.9 Obesity, unspecified; Z68.35 Body mass index [BMI] 35.0-35.9, adult; Z79.899 Other long term (current) drug therapy; Z90.49 Acquired absence of other specified parts of digestive tract; Z87.891 Personal history of nicotine dependence
CPT/HCPCS: 36415; 71045; 71275; 74175; 80048; 80061; 80076; 81003; 81025; 82947; 83690; 83735; 83880; 84439; 84443; 84484; 85025; 93005; 93306; 96360; 96361; 99285; G0378; J7030; Q9967; U0002

== ENCOUNTER 2019-08-25 20:04 | Emergency (ER) | payer SELFPAY ==
--- OUTSIDE RECORDS SUMMARY | 2019-08-25 20:07 | XMS REPORT | Continuity of Care Document ---
:1985 Author Organization [facility] t Address [address] [place] [address] Care Team Providers Name Role Phone Provider, [...] Allergie 7-15 Clear s 00:00: Hough 00 [facility] No Known DA Active U 2012-02 [facility] Allergie 0-06 Clear s 00:00: Hough 00 [facility] Medications This patient has no known medications. Procedures This patient has no known procedures. Encounters Start End Encounter Admission Attending Care Care Encounter Source Date/Time Date/Time Type Type Clinicians Facility Department ID 2019-08-23 2019-08-23 Urgent Provider, [facility] [id number] 15:07:25 16:34:23 Care [facility] [id number] [facility] [id number] Skip [id number] [address]al [address] Results Test [...] 65 IUnit/L 20-125 N code = ALKP) [id number] 10:12:00 Test Item Value Reference Range Interpretation [...] may jett y by method. COMPREHENSIVE METABOLIC [id number] 10:11:00 Test Item Value Reference Range Interpretation [...] TOTAL (test IUnit/L 20-125 code = ALKP) [id number] 10:11:00 Test Item Value Reference Range Interpretation [...] results may jett y by method. PROTHROMBIN [id number] 09:59:00 Test Item Value Reference Range Interpretation [...] Infarction (t o prevent recurre nt infarct). [id number] 09:59:00 Test Item Value Reference Range Interpretation [...] TESTS AND APPROPRIATECLIN ICAL EUALUATIONS. CBC W/AUTO [id number] 09:56:00 Test Item Value Reference Range Interpretation [...] code = MDIFF) - XR CHEST 1 [id number] 09:56:00 FAX: Dallas Cain MD [phone] [place]: St: PRE Name: CHEYENNERAGHAVENDRA KEARNEYAGUS [facility] : 1985 Age/S: 34/F [address] [place] [address] Unit#: [id number] Loc: [place] [address] Phys: Dallas Cain MD Acct: [id number] Dis Date: Status: PRE ER PHONE #: [phone] Exam Date: 08/22/2019 1003 FAX #: [phone] Reason: Chest Pain EXAMS: CPT CODE: [id number] XR CHEST 1 V [id number] PROCEDURE: CHEST SINGLE VIEW INDICATION: Chest Pain COMPARISON: There are no previous relevant studies available for correlation. FINDINGS: The lungs are clear. No pleural abnormality. The cardiomediastinalsilhouette is normal for projection. The bony thorax is intact. IMPRESSION: Normal radiograph. SL: [id number] at 0956 Reported and signed by: Samson Sousa M.D. CC: Dallas Cain MD Technologist: RT Maddi(R) Trnscrd Date/Time/By: 08/22/2019 (2211) : By: ZaraL Orig Print D/T: S: 08/22/2019 (8950) PAGE 1 Signed Report
--- NOTE | 2019-08-25 22:52 | ER ---
Nurse's Notes [facility] Name: Goyo Solorio Age: 34 yrs Sex: Female : 1985 Arrival Date: 08/25/2019 Time: 20:07 Bed Waiting Private MD: Diagnosis: Presentation: 08/24 20:18 Chief complaint: Patient states: Discharged out of this hospital yesterday afternoon. ll1 Unable to get metoprolol prescription filled today. Reports feeling palpitations, dizzy still Slight V[place]LELA. Coronavirus screen: Patient denies a cough. Patient denies shortness of breath or difficulty breathing. Patient denies measured and/or subjective temperature greater than 100.4F prior to today's visit. Patient denies travel on a cruise ship or to a country the [facility] currently lists as an affected area. Patient denies contact with known and/or suspected case of COVID-19. Ebola Screen: Patient denies travel to an Ebola-affected area in the 21 days before illness onset. Initial Sepsis Screen: Does the patient meet any 2 criteria? HR > 90 bpm. No. Patient's initial sepsis screen is negative. Risk Assessment: Do you want to hurt yourself or someone else? Patient reports no desire to harm self or others. Onset of symptoms was August 25, 2019. 20:18 Method Of Arrival: Ambulatory ll1 20:18 Acuity: EUGENIO 3 ll1 Historical: - Allergies: 20:20 No Known Drug Allergies; ll1 - PMHx: 20:20 Anxiety; ll1 - PSHx: 20:20 Appendectomy; ll1 - Immunization history:: Flu vaccine is not up to date. - Social history:: Smoking status: Patient denies any tobacco usage or history of. Patient uses alcohol, only on a social basis. Patient/guardian denies using street drugs. Vital Signs: 20:18 BP 113 / 77; Pulse 100; Resp 18; Temp 97.4; Pulse Ox 100% ; Pain 2/10; ll1 ED Course: 20:07 Patient arrived in ED. do 20:20 Triage completed. ll1 20:21 Arm band placed on Patient notified of wait time. EKG completed in triage. Results ll1 shown to MD. 22:50 not in lobby when called to room for eval. Left without being seen. ll1 Administered Medications: No medications were administered Outcome: 22:51 Patient left the ED. ll1 Signatures: Amberly Schuler Lynsay, RN RN ll1
[2019-08-25 23:05] VITALS: BP 113/77; TEMP 97.4; O2SAT 100
== END 2019-08-25 22:51 | disposition left against medical advice (07) ==
LOC: ER 20:04
DX: Z53.21 Procedure and treatment not carried out due to patient leaving prior to being seen by health care provider (principal)
CPT/HCPCS: 99281

== ENCOUNTER 2019-09-09 10:57 | Emergency (ER) | payer OTHER, SELFPAY ==
--- OUTSIDE RECORDS SUMMARY | 2019-09-09 11:02 | XMS REPORT | Continuity of Care Document ---
:1985 Author Organization [facility] t Address [address] [place] [address] Care Team Providers Name Role Phone Provider, [...] Allergie 7-15 Clear s 00:00: Hough 00 [facility] No Known DA Active U 2012-02 [facility] Allergie 0-06 Clear s 00:00: Hough 00 [facility] Medications This patient has no known medications. Procedures This patient has no known procedures. Encounters Start End Encounter Admission Attending Care Care Encounter Source Date/Time Date/Time Type Type Clinicians Facility Department ID 2019-08-23 2019-08-23 Urgent Provider, [facility] [id number] 15:07:25 16:34:23 Care [facility] [id number] [facility] [id number] Skip [phone] nal 044 Office [address] One Results Test [...] 65 IUnit/L 20-125 N code = ALKP) [id number] 10:12:00 Test Item Value Reference Range Interpretation [...] may jett y by method. COMPREHENSIVE METABOLIC [id number] 10:11:00 Test Item Value Reference Range Interpretation [...] TOTAL (test IUnit/L 20-125 code = ALKP) [id number] 10:11:00 Test Item Value Reference Range Interpretation [...] results may jett y by method. PROTHROMBIN [id number] 09:59:00 Test Item Value Reference Range Interpretation [...] Infarction (t o prevent recurre nt infarct). [id number] 09:59:00 Test Item Value Reference Range Interpretation [...] TESTS AND APPROPRIATECLIN ICAL EUALUATIONS. CBC W/AUTO [id number] 09:56:00 Test Item Value Reference Range Interpretation [...] code = MDIFF) - XR CHEST 1 [id number] 09:56:00 FAX: Dallas Cain MD [phone] [place]: St: PRE Name: RAGHAVENDRA QUINNAGUS [facility] : 1985 Age/S: 34/F [address] [place] [address] Unit#: [id number] Loc: [place] [address] Phys: Dallas Cain MD Acct: [id number] Dis Date: Status: PRE ER PHONE #: [phone] Exam Date: 08/22/2019 1003 FAX #: [phone] Reason: Chest Pain EXAMS: CPT CODE: [id number] XR CHEST 1 V 22933 PROCEDURE: CHEST SINGLE VIEW INDICATION: Chest Pain COMPARISON: There are no previous relevant studies available for correlation. FINDINGS: The lungs are clear. No pleural abnormality. The cardiomediastinalsilhouette is normal for projection. The bony thorax is intact. IMPRESSION: Normal radiograph. SL: [id number] at 0956 Reported and signed by: Samson Sousa M.D. CC: Dallas Cain MD Technologist: RT Maddi(Jocelyn) Trnscrd Date/Time/By: 08/22/2019 (8723) : By: Krissy Orig Print D/T: S: 08/22/2019 (1009) PAGE 1 Signed Report
[2019-09-09 11:39] LABS: Absolute Lymphocytes (CBC) 2.9 K/uL (0.7-4.9); Basophils % 0.5 % (0-1.3); Hematocrit 42.6 % (36.0-45.0); Lymphocytes % 28.4 % (15.3-44.8); MPV 8.1 fL (7.6-11.3); RBC Red Blood Cell Count 5.37 M/uL (3.86-4.86)
[2019-09-09 11:48] LABS: Protime INR 1.14
[2019-09-09 12:01] LABS: ALT/SGPT 16 U/L (12-78); AST/SGOT 12 U/L (15-37); Albumin 3.3 g/dL (3.4-5.0); Alkaline Phosphatase 62 U/L (45-117); BUN Blood Urea Nitrogen 17 mg/dL (7-18); Bicarbonate 26 mmol/L (21-32); Bilirubin Direct < 0.1 mg/dL (0-0.2); Bilirubin Total 0.3 mg/dL (0.2-1.0); Glucose Level 97 mg/dL (74-106); Magnesium 2.2 mg/dL (1.8-2.4); NT PRO-BNP 10 pg/mL (<125); Protein, Total 8.2 g/dL (6.4-8.2); Sodium Level 138 mmol/L (136-145); Troponin (Emerg Dept Use Only) < 0.02 ng/mL (0.0-0.045)
--- NOTE | 2019-09-09 12:30 | ER ---
Nurse's Notes [facility] Name: Goyo Solorio Age: 34 yrs Sex: Female : 1985 Arrival Date: 09/09/2019 Time: 11:02 Bed 5 Private MD: Diagnosis: Chest pain, unspecified Presentation: 09/08 11:16 Chief complaint: Intermittent sharp left upper chest pain and left arm heaviness that hb started yesterday at approx 1600. Pain began after she became very angry. VAN NEGATIVE. Coronavirus screen: At this time, the client does not indicate any symptoms associated with coronavirus-19. Ebola Screen: No symptoms or risks identified at this time. Initial Sepsis Screen: Does the patient meet any 2 criteria? HR > 90 bpm. No. Patient's initial sepsis screen is negative. Does the patient have a suspected source of infection? No. Patient's initial sepsis screen is negative. Risk Assessment: Do you want to hurt yourself or someone else? Patient reports no desire to harm self or others. Onset of symptoms was September 08, 2019. 11:16 Method Of Arrival: Ambulatory hb 11:16 Acuity: EUGENIO 3 hb Triage Assessment: 11:19 General: Appears in no apparent distress. Behavior is calm, cooperative. Pain: Pain hb currently is 4 out of 10 on a pain scale. EENT: No signs and/or symptoms were reported regarding the EENT system. Neuro: Level of Consciousness is awake, alert, obeys commands, Oriented to person, place, time, situation. Cardiovascular: Capillary refill < 3 seconds Patient's skin is warm and dry. Rhythm is regular. Respiratory: Respiratory effort is even, unlabored, Respiratory pattern is regular, symmetrical. GI: No signs and/or symptoms were reported involving the gastrointestinal system. : No signs and/or symptoms were reported regarding the genitourinary system. Derm: Skin is pink, warm \T\ dry. Musculoskeletal: Reports left arm heaviness. 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 - Social history:: Smoking status: Patient reports the use of cigarette tobacco products, denies chronic smoking, but will smoke occasionally, Patient/guardian denies using alcohol, street drugs, The patient lives with family. - Family history:: not pertinent. Screenin:18 Abuse screen: Denies threats or abuse. Denies injuries from another. Nutritional hb screening: No deficits noted. Tuberculosis screening: No symptoms or risk factors identified. Fall Risk None identified. Assessment: 11:20 General: See triage assessment.. hb 12:12 Reassessment: Patient appears in no apparent distress at this time. Patient and/or hb family updated on plan of care and expected duration. Pain level reassessed. Patient is alert, oriented x 3, equal unlabored respirations, skin warm/dry/pink. Vital Signs: 11:16 BP 114 / 84; Pulse 94; Resp 16; Temp 98.1; Pulse Ox 100% on R/A; Weight 79.38 kg; hb Height 5 ft. (152.40 cm); Pain 4/10; 12:00 BP 107 / 74; Pulse 84; Resp 15; Pulse Ox 100% on R/A; hb 11:16 Body Mass Index 34.18 (79.38 kg, 152.40 cm) hb ED Course: 11:02 Patient arrived in ED. fj1 11:10 Claudette Valencia MD is Attending Physician. ma2 11:18 Triage completed. hb 11:18 Arm band placed on. hb 11:18 Patient has correct armband on for positive identification. Placed in gown. Bed in low hb position. Call light in reach. Side rails up X 1. air sampling and monitoring on. Pulse ox on. NIBP on. 11:19 Jodie Summers, RN is Primary Nurse. hb 11:20 EKG done, by ED staff, reviewed by Claudette Valencia MD. dh3 11:30 Inserted saline lock: 20 gauge in left antecubital area, using aseptic technique. Blood hb collected. 11:38 Basic Metabolic Panel Sent. hb 12:21 XRAY Chest (1 view) In Process Unspecified. EDMS 12:55 No provider procedures requiring assistance completed. IV discontinued, intact, hb bleeding controlled, No redness/swelling at site. Administered Medications: No medications were administered Outcome: 12:30 Discharge ordered by . ma2 12:55 Discharged to home ambulatory. hb 12:55 Condition: stable 12:55 Discharge instructions given to patient, Instructed on discharge instructions, follow up and referral plans. medication usage, Demonstrated understanding of instructions, follow-up care, medications, Prescriptions given X 1. 12:55 Patient left the ED. Signatures: Dispatcher [employer] EDMS Jodie Summers RN RN Kathe Simpson 3 Claudette Valencia MD MD ma2 Bj Rachel fj1
--- NOTE | 2019-09-09 12:30 | EDPHYS ---
Physician Documentation [facility] Name: Goyo Solorio Age: 34 yrs Sex: Female : 1985 Arrival Date: 09/09/2019 Time: 11:02 Bed 5 Private MD: ED Physician Claudette Valencia HPI: 09/08 12:28 This 34 yrs old Female presents to ER via Ambulatory with complaints of Chest ma2 Pain, Numbness Of Arm. 12:28 The patient or guardian reports chest pain that is located primarily in the anterior ma2 chest wall. Associated signs and symptoms: Pertinent negatives: diaphoresis, lower extremity pain, nausea, near syncope, vomiting. Duration: The patient or guardian reports a single episode. Severity of pain: At its worst the pain was mild in the emergency department the pain is unchanged. The patient has experienced similar episodes in the past. 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 - Social history:: Smoking status: Patient reports the use of cigarette tobacco products, denies chronic smoking, but will smoke occasionally, Patient/guardian denies using alcohol, street drugs, The patient lives with family. - Family history:: not pertinent. ROS: 12:28 Constitutional: Negative for fever, chills, and weight loss, Cardiovascular: Negative ma2 for chest pain, palpitations, and edema, Respiratory: Negative for shortness of breath, cough, wheezing, and pleuritic chest pain, Abdomen/GI: Negative for abdominal pain, nausea, diarrhea, and constipation, Back: Negative for injury and pain, : Negative for injury, bleeding, discharge, and swelling, MS/Extremity: Negative for injury and deformity, Skin: Negative for injury, rash, and discoloration, Neuro: Negative for headache, weakness, numbness, tingling, and seizure, Psych: Negative for depression, anxiety, suicide ideation, homicidal ideation, and hallucinations. Exam: 12:28 Constitutional: This is a well developed, well nourished patient who is awake, alert, ma2 and in no acute distress. ENT: Nares patent. No nasal discharge, no septal abnormalities noted. Tympanic membranes are normal and external auditory canals are clear. Oropharynx with no redness, swelling, or masses, exudates, or evidence of obstruction, uvula midline. Mucous membranes moist. Neck: Trachea midline, no thyromegaly or masses palpated, and no cervical lymphadenopathy. Supple, full range of motion without nuchal rigidity, or vertebral point tenderness. No Meningismus. Chest/axilla: Normal chest wall appearance and motion. Nontender with no deformity. No lesions are appreciated. Cardiovascular: Regular rate and rhythm with a normal S1 and S2. No gallops, murmurs, or rubs. Normal PMI, no JVD. No pulse deficits. Respiratory: Lungs have equal breath sounds bilaterally, clear to auscultation and percussion. No rales, rhonchi or wheezes noted. No increased work of breathing, no retractions or nasal flaring. Abdomen/GI: Soft, non-tender, with normal bowel sounds. No distension or tympany. No guarding or rebound. No evidence of tenderness throughout. Vital Signs: 11:16 BP 114 / 84; Pulse 94; Resp 16; Temp 98.1; Pulse Ox 100% on R/A; Weight 79.38 kg; hb Height 5 ft. (152.40 cm); Pain 4/10; 12:00 BP 107 / 74; Pulse 84; Resp 15; Pulse Ox 100% on R/A; hb 11:16 Body Mass Index 34.18 (79.38 kg, 152.40 cm) hb MDM: 11:10 Patient medically screened. ok2 12:28 Differential diagnosis: anxiety, chest wall pain, gastritis, gastroesophageal reflux ma2 disease (GERD). BARRETT Risk Score: not applicable. Data reviewed: vital signs, nurses notes. Counseling: I had a detailed discussion with the patient and/or guardian regarding: the historical points, exam findings, and any diagnostic results supporting the discharge/admit diagnosis, the presence of at least one elevated blood pressure reading (>120/80) during this emergency department visit, the need for outpatient follow up. 09/08 11:11 Order name: Basic Metabolic Panel [facility] 09/08 11:11 Order name: CBC with Diff; Complete Time: 12:27 [facility] 09/08 11:11 Order name: LFT's; Complete Time: 12:27 [facility] 09/08 11:11 Order name: Magnesium; Complete Time: 12:27 [facility] 09/08 11:11 Order name: NT PRO-BNP; Complete Time: 12:27 [facility] 09/08 11:11 Order name: PT-INR; Complete Time: 12:27 [facility] 09/08 11:11 Order name: Troponin (emerg Dept Use Only); Complete Time: 12:27 [facility] 09/08 11:11 Order name: XRAY Chest (1 view) [facility] 09/08 11:11 Order name: EKG; Complete Time: 11:12 [facility] 09/08 11:11 Order name: Cardiac monitoring; Complete Time: 11:26 [facility] 09/08 11:11 Order name: EKG - Nurse/Tech; Complete Time: 11:26 [facility] 09/08 11:12 Order name: Basic Metabolic Panel; Complete Time: 12:27 [facility] 09/08 11:52 Order name: Urine Dipstick--Ancillary (enter results) [facility] 09/08 11:52 Order name: Urine --Ancillary (enter results) [facility] 09/08 11:11 Order name: IV Saline Lock; Complete Time: 11:39 [facility] 09/08 11:11 Order name: Labs collected and sent; Complete Time: 11:39 [facility] 09/08 11:11 Order name: O2 Per Protocol; Complete Time: 11:27 [facility] 09/08 11:11 Order name: O2 Sat Monitoring; Complete Time: 11:27 ma Administered Medications: No medications were administered Disposition: 09/09/19 12:30 Discharged to Home. Impression: Chest pain, unspecified. - Condition is Stable. - Discharge Instructions: Chest Wall Pain. - Prescriptions for Ativan 0.5 mg Oral Tablet - take 1 tablet by ORAL route every 8 hours As needed; 20 tablet. - Medication Reconciliation Form, Thank You Letter, Antibiotic Education, Prescription Opioid Use form. - Follow up: Private Physician; When: Tomorrow; Reason: If symptoms return. Signatures: Dispatcher [employer] EDMS Jodie Summers RN RN Claudette Valencia MD MD ok2 Corrections: (The following items were deleted from the chart) 12:55 12:30 09/09/2019 12:30 Discharged to Home. Impression: Chest pain, unspecified. hb Condition is Stable. Forms are Medication Reconciliation Form, Thank You Letter, Antibiotic Education, Prescription Opioid Use. Follow up: Private Physician; When: Tomorrow; Reason: If symptoms return. ma2
--- NOTE | 2019-09-09 12:33 | RAD REPORT ---
EXAM DESCRIPTION: Sima Single View09/09/2019 12:20 pm CLINICAL HISTORY: Chest pain COMPARISON: August 2019 FINDINGS: The lungs appear clear of acute infiltrate. The heart is normal size IMPRESSION: No acute abnormalities displayed
[2019-09-09 13:03] LABS: Urine Blood NEGATIVE (NEG); Urine Glucose NEGATIVE (NEG); Urine Protein NEGATIVE (NEG); Urine Specific Gravity 1.025 (1.005-1.030)
[2019-09-09 13:04] VITALS: TEMP 98.1; O2SAT 100
[2019-09-09 13:05] VITALS: BP 107/74
--- NOTE | 2019-09-11 11:07 | EKG ---
Test Date: 2019-09-09 Test Time: 11:20:36 [place] Converter Blower: PHIL MEASUREMENT RESULTS: Intervals: Rate: 96 WV: 150 QRSD: 82 QT: 352 QTc: 444 Cranks: P: 55 WV: 150 QRS: 56 T: 33 INTERPRETIVE STATEMENTS: Normal sinus rhythm Possible Left atrial enlargement Borderline ECG Compared to ECG 08/24/2019 02:47:27 Sinus tachycardia no longer present Electronically Signed On 09-11-19 11:03:13 CDT by Javon Carranza
== END 2019-09-09 12:55 | disposition home or self-care (01) ==
LOC: ER 10:57
DX: R07.9 Chest pain, unspecified (principal); Z72.0 Tobacco use
CPT/HCPCS: 36415; 71045; 80048; 80076; 81003; 81025; 83735; 83880; 84484; 85025; 85610; 93005; 99284

== ENCOUNTER 2019-09-09 18:59 | Emergency (ER) | payer OTHER, SELFPAY ==
--- OUTSIDE RECORDS SUMMARY | 2019-09-09 19:01 | XMS REPORT | Continuity of Care Document ---
:1985 Author Organization [facility] t Address [address] [place] [address] Care Team Providers Name Role Phone Provider, [...] Allergie 7-15 Clear s 00:00: Hough 00 [facility] No Known DA Active U 2012-02 [facility] Allergie 0-06 Clear s 00:00: Hough 00 [facility] Medications This patient has no known medications. Procedures This patient has no known procedures. Encounters Start End Encounter Admission Attending Care Care Encounter Source Date/Time Date/Time Type Type Clinicians Facility Department ID 2019-08-23 2019-08-23 Urgent Provider, [facility] [id number] 15:07:25 16:34:23 Care [facility] [id number] [facility] [id number] Skip [phone] nal 044 Office [address] One Results Test [...] 65 IUnit/L 20-125 N code = ALKP) [id number] 10:12:00 Test Item Value Reference Range Interpretation [...] may jett y by method. COMPREHENSIVE METABOLIC [id number] 10:11:00 Test Item Value Reference Range Interpretation [...] TOTAL (test IUnit/L 20-125 code = ALKP) [id number] 10:11:00 Test Item Value Reference Range Interpretation [...] results may jett y by method. PROTHROMBIN [id number] 09:59:00 Test Item Value Reference Range Interpretation [...] Infarction (t o prevent recurre nt infarct). [id number] 09:59:00 Test Item Value Reference Range Interpretation [...] TESTS AND APPROPRIATECLIN ICAL EUALUATIONS. CBC W/AUTO [id number] 09:56:00 Test Item Value Reference Range Interpretation [...] code = MDIFF) - XR CHEST 1 [id number] 09:56:00 FAX: Dallas Cain MD [phone] [place]: St: PRE Name: CHEYENNERAGHAVENDRA KEARNEYAGUS [facility] : 1985 Age/S: 34/F [address] [place] [address] Unit#: [id number] Loc: [place] [address] Phys: Dallas Cain MD Acct: [id number] Dis Date: Status: PRE ER PHONE #: [phone] Exam Date: 08/22/2019 1003 FAX #: [phone] Reason: Chest Pain EXAMS: CPT CODE: [id number] XR CHEST 1 V 52217 PROCEDURE: CHEST SINGLE VIEW INDICATION: Chest Pain COMPARISON: There are no previous relevant studies available for correlation. FINDINGS: The lungs are clear. No pleural abnormality. The cardiomediastinalsilhouette is normal for projection. The bony thorax is intact. IMPRESSION: Normal radiograph. SL: [id number] at 0956 Reported and signed by: Samson Sousa M.D. CC: Dallas Cain MD Technologist: RT Maddi(R) Trnscrd Date/Time/By: 08/22/2019 (8045) : By: ZaraL Orig Print D/T: S: 08/22/2019 (3011) PAGE 1 Signed Report
[2019-09-09] MEDS ORDERED: KETOROLAC 30 MG/ML INJ ONE (20:58)
--- NOTE | 2019-09-09 21:19 | ER ---
Nurse's Notes [facility] Name: Goyo Solorio Age: 34 yrs Sex: Female : 1985 Arrival Date: 09/09/2019 Time: 19:01 Bed 8 Private MD: Diagnosis: Other chest pain Presentation: 09/08 19:08 Chief complaint: Patient states: "I was in here earlier and I got released. My chest ss pressure and the pinching is still the same. About 30 minutes ago I was standing in the kitchen and I got faint, dizzy and felt like I was going to pass out.". Coronavirus screen: At this time, the client does not indicate any symptoms associated with coronavirus-19. Ebola Screen: Patient denies exposure to infectious person. Patient denies travel to an Ebola-affected area in the 21 days before illness onset. Initial Sepsis Screen: Does the patient meet any 2 criteria? No. Patient's initial sepsis screen is negative. Does the patient have a suspected source of infection? No. Patient's initial sepsis screen is negative. Risk Assessment: Do you want to hurt yourself or someone else? Patient reports no desire to harm self or others. Onset of symptoms was September 09, 2019. 19:08 Method Of Arrival: Ambulatory ss 19:08 Acuity: EUGENIO 3 ss 20:12 Chief complaint: Patient states: 3rd visit in 2 weeks for same symptoms. Saw her ll1 special delivery carrier after initial visit, they told her everything looks good, she has anxiety. 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 - Social history:: Smoking status: Patient reports the use of cigarette tobacco products, denies chronic smoking, but will smoke occasionally. Screenin:30 Abuse screen: Denies threats or abuse. Denies injuries from another. Nutritional wh screening: No deficits noted. Tuberculosis screening: No symptoms or risk factors identified. Fall Risk None identified. Assessment: 20:10 General: Appears in no apparent distress. Behavior is calm, cooperative, appropriate wh for age. Pain: Complains of pain in mid-sternal area Pain does not radiate. Pain currently is 5 out of 10 on a pain scale. Quality of pain is described as dull, Pain began suddenly. Neuro: Level of Consciousness is awake, alert, obeys commands, Oriented to person, place, time, situation, Appropriate for age. Cardiovascular: Heart tones S1 S2 Rhythm is regular. Respiratory: Airway is patent Respiratory effort is even, unlabored, Respiratory pattern is regular, symmetrical, Breath sounds are clear bilaterally. GI: Abdomen is flat, non-distended. : No signs and/or symptoms were reported regarding the genitourinary system. EENT: No signs and/or symptoms were reported regarding the EENT system. Derm: Skin is intact, is healthy with good turgor, Skin is pink, warm \\T\\ dry. normal. Musculoskeletal: Circulation, motion, and sensation intact. 21:30 Reassessment: Patient appears in no apparent distress at this time. No changes from previously documented assessment. Patient and/or family updated on plan of care and expected duration. Pain level reassessed. Patient is alert, oriented x 3, equal unlabored respirations, skin warm/dry/pink. Vital Signs: 19:09 BP 121 / 73; Pulse 99; Resp 16; Temp 99.2(O); Pulse Ox 97% on R/A; Weight 79.38 kg; Height 5 ft. 0 in. (152.40 cm); Pain 0/10; 21:00 BP 112 / 85; Pulse 91; Resp 18; Pulse Ox 99% on R/A; wh 19:09 Body Mass Index 34.18 (79.38 kg, 152.40 cm) ED Course: 19:01 Patient arrived in ED. bp1 19:09 Triage completed. ss 19:09 Arm band placed on right wrist. ss 20:21 Maximo Schaeffer MD is Attending Physician. tw4 20:30 Patient has correct armband on for positive identification. Bed in low position. Call light in reach. Side rails up X 1. 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 Pulse ox on. NIBP on. 20:30 Patient maintains SpO2 saturation greater than 95% on room air. wh 20:41 Miguel Chan is Primary Nurse. wh 21:33 No provider procedures requiring assistance completed. Patient did not have IV access during this emergency room visit. Administered Medications: 21:30 Not Given (Patient Refused): TORadol 60 mg IM once Outcome: 21:19 Discharge ordered by MD. [email or web address] 21:34 Discharged to home ambulatory. 21:34 Condition: stable 21:34 Discharge instructions given to patient, Instructed on discharge instructions, follow up and referral plans. medication usage, POC Demonstrated understanding of instructions, follow-up care, medications, POC Prescriptions given X 1. 21:35 Patient left the ED. Signatures: Sophie Smith, RN RN Miguel Chan Maximo Schaeffer MD MD tw4 Paul Pennington RN RN ll1 [facility]
--- NOTE | 2019-09-09 21:20 | EDPHYS ---
Physician Documentation [facility] Name: Goyo Solorio Age: 34 yrs Sex: Female : 1985 Arrival Date: 09/09/2019 Time: 19:01 Bed 8 Private MD: ED Physician Maximo Schaeffer HPI: 09/08 21:22 This 34 yrs old Female presents to ER via Ambulatory with complaints of Chest tw4 Pain, FEELS FAINT. 21:22 The patient or guardian reports chest pain that is located primarily in the substernal tw4 area. The pain does not radiate. Associated signs and symptoms: The patient has no apparent associated signs or symptoms. The chest pain is described as dull. Duration: The patient or guardian reports a single episode. Modifying factors: The symptoms are alleviated by nothing. the symptoms are aggravated by nothing. Severity of pain: At its worst the pain was moderate in the emergency department the pain is unchanged. The patient has experienced similar episodes in the past, a few times. 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 - Social history:: Smoking status: Patient reports the use of cigarette tobacco products, denies chronic smoking, but will smoke occasionally. ROS: 21:22 Constitutional: Negative for fever, chills, and weight loss, Eyes: Negative for injury, tw4 pain, redness, and discharge, Respiratory: Negative for shortness of breath, cough, wheezing, and pleuritic chest pain, Abdomen/GI: Negative for abdominal pain, nausea, vomiting, diarrhea, and constipation, Back: Negative for injury and pain, MS/Extremity: Negative for injury and deformity, Skin: Negative for injury, rash, and discoloration, Neuro: Negative for headache, weakness, numbness, tingling, and seizure. 21:22 Cardiovascular: Positive for chest pain, Negative for edema, orthopnea, palpitations, paroxysmal nocturnal dyspnea. Exam: 21:22 Constitutional: This is a well developed, well nourished patient who is awake, alert, tw4 and in no acute distress. Head/Face: Normocephalic, atraumatic. Chest/axilla: Normal chest wall appearance and motion. Nontender with no deformity. No lesions are appreciated. Cardiovascular: Regular rate and rhythm with a normal S1 and S2. No gallops, murmurs, or rubs. Normal PMI, no JVD. No pulse deficits. Respiratory: Lungs have equal breath sounds bilaterally, clear to auscultation and percussion. No rales, rhonchi or wheezes noted. No increased work of breathing, no retractions or nasal flaring. Abdomen/GI: Soft, non-tender, with normal bowel sounds. No distension or tympany. No guarding or rebound. No evidence of tenderness throughout. Vital Signs: 19:09 BP 121 / 73; Pulse 99; Resp 16; Temp 99.2(O); Pulse Ox 97% on R/A; Weight 79.38 kg; ss Height 5 ft. 0 in. (152.40 cm); Pain 0/10; 21:00 BP 112 / 85; Pulse 91; Resp 18; Pulse Ox 99% on R/A; wh 19:09 Body Mass Index 34.18 (79.38 kg, 152.40 cm) ss MDM: 20:21 Patient medically screened. tw4 21:26 Differential diagnosis: pulmonary embolus. Data reviewed: vital signs, nurses notes. tw4 Data interpreted: Pulse oximetry: Interpretation: normal. 09/08 20:25 Order name: Troponin (emerg Dept Use Only); Complete Time: 21:16 tw4 09/08 20:25 Order name: EKG; Complete Time: 20:25 tw4 EC:22 Rate is 91 beats/min. Rhythm is regular. QRS [place] is Normal. MS interval is normal. QRS tw4 interval is normal. QT interval is normal. No Q waves. T waves are Normal. No ST changes noted. Clinical impression: Normal ECG. Interpreted by me. Reviewed by me. Administered Medications: 21:30 Not Given (Patient Refused): TORadol 60 mg IM once wh Disposition: 09/09/19 21:19 Discharged to Home. Impression: Other chest pain. - Condition is Stable. - Discharge Instructions: Nonspecific Chest Pain. - Prescriptions for Ibuprofen 800 mg Oral Tablet - take 1 tablet by ORAL route every 12 hours As needed take with food; 20 tablet. - Medication Reconciliation Form, Thank You Letter, Antibiotic Education, Prescription Opioid Use form. - Follow up: Private Physician; When: Upon discharge from the Emergency Department; Reason: Recheck today's complaints, Continuance of care, Re-evaluation by your physician. - Problem is new. - Symptoms have improved. Signatures: Dispatcher [employer] [facility] Sophie Smith, RN RN Miguel Erickson Terrence, MD MD tw4 Corrections: (The following items were deleted from the chart) 20:38 20:25 Chest Single View+RAD.RAD.BRZ ordered. [facility] 21:35 21:19 09/09/2019 21:19 Discharged to Home. Impression: Other chest pain. Condition is wh Stable. Forms are Medication Reconciliation Form, Thank You Letter, Antibiotic Education, Prescription Opioid Use. Follow up: Private Physician; When: Upon discharge from the Emergency Department; Reason: Recheck today's complaints, Continuance of care, Re-evaluation by your physician. Problem is new. Symptoms have improved. tw4
[2019-09-09 21:45] VITALS: TEMP 99.2
[2019-09-09 21:49] VITALS: BP 112/85; O2SAT 99
== END 2019-09-09 21:35 | disposition home or self-care (01) ==
LOC: ER 18:59
DX: R07.89 Other chest pain (principal); Z72.0 Tobacco use
CPT/HCPCS: 36415; 84484; 93005; 99284

== ENCOUNTER 2019-11-21 18:28 | Emergency (ER) | payer OTHER, SELFPAY ==
--- OUTSIDE RECORDS SUMMARY | 2019-11-21 18:31 | XMS REPORT | Summary of Care ---
:1985 Author Organization [facility] Address [address] [place] [id number] Care Team Providers Name Role Phone Shruthi Nuñez Insurance [employer] Jocelyn Stephen Primary Care Provider Reason for Visit Reason Comments Nausea Other Rapid heart beat, Pt states she is seeing a sorority mother. SHe just had a stress test done today. Can feel her heart racing and she took her heart rate.. running around 100 be ats. States it started after her and her daughter got sick 3 weeks ag o. Pt states she is having like pinching and pressure on lesft side. Dizziness Started yesterday. Vomiting Started yesterday Encounter Details Date Type Department Care Team Description 09/14/2019 Urgent Care [facility] Family Easton Baca FNP [address] [place] [phone] Anxiety (Primary Dx) Medicine - [place] [facility] [address] [place] [phone] Allergies No Known Allergiesdocumented as of this encounter (statuses as of 09/14/2019) Medications Medication Sig Dispensed Refills Start Date End Date Status vit Take 1 Packet by 30 Each 6 11/11/2016 Active 31-ohwn-zsabm-dha mouth daily. (SELECT-OB + DHA) 29 mg [...] 07/19/2019 Active mg-mcg per tablet mouth daily. SERTraline (ZOLOFT) Take 1 tablet by 30 tablet 0 08/23/2019 Active 50 mg mouth daily for tabletIndications: 30 days. Anxiety ALPRAZolam 0.5 mg TAKE 1 TABLET BY 0 08/22/2019 Active tablet MOUTH 3 TIMES A DAY NEEDED LORazepam 0.5 mg 0 08/24/2019 Ac tive tablet documented as of this encounter (statuses as of 09/14/2019) Active Problems Patient Care Coordination Note IOL scheduled for 04/18/2017 7 p.m. Problem Noted Date Papanicolaou smear of cervix with low grade squamous i ntraepithelial 08/30/2014 lesion (LGSIL) documented as of this encounter (statuses as of 09/14/2019) Resolved Problems Problem Noted Date Resolved Date Anemia, antepartum, third trimester 04/19/201705/08 Anxiety and depression 04/19/2017 05/19/2017 Overview: History of same,obs for same Normal spontaneous vaginal delivery 04/19/201705/08 Itching 04/19/2017 05/19/2017 Overview: C/o itching?PUPPS, Hydrocortisone used a t home 39 weeks gestation of 04/18/2017 04/12/20 18 Labor and delivery indication for care [...] as of this encounter (statuses as of 09/14/2019) Immunizations Name Administration Dates Next Due TDAP 02/09/2017, 02/07/2007 documented as of this encounter Social History Tobacco Use Types Packs/Day Years Used Date Former Smoker Cigarettes 0.2 3 Quit: 08/29/19 17 Smokeless Tobacco: Never Used Comments: smokes 2 x per day. Alcohol Use Drinks/Week oz/Week Comments Yes Sex Assigned at Date Recorded Not on file COVID-19 Exposure Response Date Recorded In the last month, have you been in contact with No / Unsure 09/14/2019 1:04 PM CDT someone who was confirmed or suspected to have Coronavirus / COVID-19? documented as of this encounter Last Filed Vital Signs Vital Sign Reading Time Taken Comments Blood Pressure 122/81 09/14/2019 1:04 PM CDT Pulse 94 09/14/2019 1:04 PM CDT Temperature 37.1 C (98.8 F) 09/14/2019 1:04 PM CDT Respiratory Rate 18 09/14/2019 1:04 PM CDT Oxygen Saturation 97% 09/14/2019 1:04 PM CDT Inhaled Oxygen Concentration - - Weight 81.6 kg (180 lb) 09/14/2019 1:04 PM CDT Height 152.4 cm (5') 09/14/2019 1:04 PM CDT Body Mass Index 35.15 09/14/2019 1:04 PM CDT documented in this encounter Patient Instructions Patient InstructionsMarlyn Baca FNP - 09/14/2019 1:00 PM CDT Patient Education Treating Anxiety Disorders [...] check with your pharmacist before using any rgyu-bow-rpekjws medicines (OTCs), including herbal supplements. Some OTCs may interact with your anti-anxiety medicines andincrease or decrease their effectiveness. [employer] last reviewed this educational content on 01/07/201919992995-4522 [employer]. [address] [place] [address], [place] [address]. All rights reserved. This information is not intended as a substitute for professional medical care. Always follow your healthcare professional's instructions. documented in this encounter Progress Notes Marlyn Baca FNP - 09/14/2019 1:00 PM CDT Cc: Chief Complaint Patient presents with Nausea Other Rapid heart beat, Pt states she is seeing a sorority mother. SHe just had a stress test done today. Can feel her heart racing and she took her heart rate.. running around 100 beats. States it started after her and her daughter got sick 3 weeks ago. Pt states she is having like pinching and pressure on lesft side. Dizziness Started yesterday. Vomiting Started yesterday Goyo Solorio is a 34 year old female. Patient has a hx of anxiety but noncompliant with treatment regimen. Patient is insisting something else if going on, like diabetes, heart disease causing her symptoms. She has had multiple bouts of lab work done and reviewed today and no indication of diabetes, glucose 94 from the labs she brought with her. She was also referred to a sorority mother and is now under care of a sorority mother with pendingecho and stress test next week. Today, she states periodically, she feels tense in her neck, dizzy and with rapid heart rate. Even though she has tested negative for covid twice, she still attributes her symptoms to possible or residual symptoms after covid infection. Anxiety Presents for follow-up visit. Symptoms include chest pain, dizziness, excessive worry, muscle tension, nausea and palpitations. Patient reports no shortness of breath. Symptoms occur most days. The severity of symptoms is moderate. The quality of sleep is fair. Nighttime awakenings: none. Compliance with medications is 0-25%. Allergies Goyo has No Known Allergies. Medications Outpatient Medications Prior to Visit Medication Sig Dispense Refill ALPRAZolam 0.5 mg tablet TAKE 1 TABLET BY MOUTH 3 TIMES A DAY NEEDED LORazepam 0.5 mg tablet SERTraline (ZOLOFT) 50 mg tablet Take 1 tablet by mouth daily for 30 days. 30 tablet 0 FEMYNOR 0.25-35 mg-mcg per tablet Take 1 tablet by mouth daily. albuterol 2.5 mg /3 mL (0.083 %) [...] food or milk. 60 tablet 1 vit 44-rkdi-zydsq-dha (SELECT-OB + DHA) 29 mg iron-1 mg [...] Financial resource strain: Not on file Food insecurity Worry: Not on file Inability: Not on file Transportation needs Medical: Not on file Non-medical: Not on file Tobacco Use Smoking status: Former Smoker Packs/day: 0.20 Years: 3.00 Pack years: 0.60 Types: Cigarettes Quit date: 08/28/2016 Years since quittin.0 Smokeless tobacco: Never Used Tobacco comment: smokes 2 x per day. Substance and Sexual Activity Alcohol use: Yes Drug use: Yes Comment: smokes marijuana-last smoked 2 weeks ago Sexual activity: Yes Partners: Male control/protection: None Comment: last sexual intercourse 09/26/2016 Lifestyle Physical activity Days per week: Not on file Minutes per session: Not on file Stress: Not on file Relationships Social connections Talks on phone: Not on file Gets together: Not on file Attends jainism service: Not on file Active member of club or organization: Not on file Attends meetings of clubs or organizations: Not on file Relationship status: Not on file Intimate partner violence Fear of current or ex partner: Not [...] NoFHx Neurological NoFHx Review of Systems Constitutional: Negative. Respiratory: Negative. Negative for apnea, cough, choking, chest tightness, shortness of breath andwheezing. Cardiovascular: Positive for chest pain and palpitations. Negative for leg swelling. Gastrointestinal: Positive for nausea. Skin: Negative. Neurological: Positive for dizziness. Endocrine: Endocrine negative Vital Signs BP 122/81 | Pulse 94 | Temp 37.1 C (98.8 F) | Resp 18 | Ht 5' (1.524 m) | Wt 180 lb (81.6 kg) | LMP 08/22/2019 (Exact Date) | SpO2 97% | BMI 35.15 kg/m Physical Exam Vitals signs and nursing note reviewed. Constitutional: Appearance: She is well-developed. HENT: Head: Normocephalic. Right Ear: External ear normal. Left Ear: External ear normal. Nose: Nose normal. Neck: Musculoskeletal: Normal range of motion and neck supple. Cardiovascular: Rate and Rhythm: Normal rate and regular rhythm. Heart sounds: Normal heart sounds. No murmur. No friction rub. No gallop. Pulmonary: Effort: Pulmonary effort is normal. No respiratory distress. Breath sounds: Normal breath sounds. No wheezing or rales. Chest: Chest wall: No tenderness. Abdominal: General: Bowel sounds are normal. There is no distension. Palpations: Abdomen is soft. Tenderness: There is no abdominal tenderness. Skin: General: Skin is warm and dry. Capillary Refill: Capillary refill takes less than 2 seconds. Coloration: Skin is not pale. Findings: No erythema or rash. Neurological: Mental Status: She is alert and oriented to person, place, and time. Psychiatric: Mood and Affect: Mood normal. Assessment/Plan 1. Anxiety: None-complaint, thus compliance encouraged today. CBC, CMP, TSH current and unremarkable. Continue current treatment plan. No SI/HI Discussed anxiety medications in detail including SSRI, buspar. Patient would like to continue on Zoloft. Discussed tx in detail including [...] hiking, biking every week. Follow-up in 4-6 weeks, appointment made with Dr. Thakkar. ER-- If with SI/HI Plan of care, desired health behaviors, goals, and medication discussed with patient. Education resources provided and reviewed with AVS. Patient/guardian/family verbalized understanding & agrees to plan of care. This visit did not involve counseling and coordination that comprised more than 50% of the visit time. If applicable, the [place] [employer] database was accessed to review any controlled substance prescription claims data. The [employer] prescription claims data in [employer] was reviewed to assess patient compliance with the medication treatment plan. Joanen Ramirez MA - 09/14/2019 1:00 PM CDT Goyo Solorio is a 34 year old female Chief Complaint Patient presents with Nausea Other Rapid heart beat, Pt states she is seeing a sorority mother. SHe just had a stress test done today. Can feel her heart racing and she took her heart rate.. running around 100 beats. States it started after her and her daughter got sick 3 weeks ago. Pt states she is having like pinching and pressure on lesft side. Dizziness Started yesterday. Vomiting Started yesterday Vitals: 09/14/19 1304 BP: 122/81 Pulse: 94 Resp: 18 Temp: 37.1 C (98.8 F) SpO2: 97% Weight: 180 lb (81.6 kg) Height: 5' (1.524 m) [facility]/pharmacy #[id number] - [place], [place] - [address] [place] [address] [facility] All Vitals taken, allergies and all medications reviewed, fall risk assessed. Pain level 0. Joanne Chandler MA 09/14/2019 1:09 PM documented in this encounter Plan of Treatment Date Type Specialty Care Team Description 09/19/2019 Telemedicine Visit Family Medicine Falguni Thakkar MD [address] [place] [phone] 10/29/2019 Office Visit Family Mohan Rodarte MD [address] [place] [phone] Health Maintenance Due Date Last Done Comments Depression Screening 1997 PAP SMEAR 09/29/2019 09/28/2016, 08/23/2014 INFLUENZA VACCINE (#1) 2019 DTaP,Tdap,and Td Vaccines (3 02/09/2027 02/09/2017, - Td) 02/07/2007 PNEUMOCOCCAL 0-64 YEARS Aged Out No longe r eligible based COMBINED SERIES on patient's age to complete this to pic documented as of this encounter Results Not on filedocumented in this encounter Visit Diagnoses Diagnosis Anxiety - Primary Anxiety state, unspecified documented in this encounter Advance Directives Name Relationship Healthcare Agent Relationship Co mmunication Nicki Rose Sibling Health Care Agent "
--- OUTSIDE RECORDS SUMMARY | 2019-11-21 18:31 | XMS REPORT | Continuity of Care Document ---
:[address] [facility] t Address [address] [place] [address] Care Team Providers Name Role Phone Mariah Thakkar MD Attending Clinician Only, Test Attending Clinician Unavailable Pob, Lab Main Attending Clinician Unavailable Doctor Unassigned, Name Attending Clinician Unavailable Payers Payer Name Policy Type Policy Number Effective Date Expiration Date S ource Problems This patient has no known problems. Allergies, Adverse Reactions, Alerts Allergy Allergy Status Severity Reaction(s) Onset Inactive Treating Comm ents Source Name Type Date Date Clinician No Known DA Active U [facility] 7-15 Clear s 00:00: Hough 00 [facility] No Known DA Active U 2012-02 [facility] Allergie 0-06 Clear s 00:00: Hough 00 [facility] Medications This patient has no known medications. Procedures This patient has no known procedures. Encounters Start End Encounter Admission Attending Care Care Encounter Source Date/Time Date/Time Type Type Clinicians Facility Department ID 2019-09-26 2019-09-26 Patient BijanMADAN [id number] 00:00:00 00:00:00 Secure [facility] Yoseph De La Fuente [id number] [place] [id number] Skip [phone] [address] 2019-09-21 2019-09-21 Hospital Bijan [facility] [id number] 11:10:44 23:59:00 Encounter [facility] [place] [id number] [place] 4.2.7.2.686 [place] [id number] [id number] 2019-09-21 2019-09-21 [facility] Bijan [facility] [id number] 11:00:00 11:09:00 Encounter [facility] [place] [id number] [place] 4.2.7.2.686 [place] [id number] 2019-09-21 2019-09-21 [facility] [id number] 09:56:26 10:59:00 Encounter [facility] [place] [id number] [place] 4.2.7.2.686 [place] [id number] 2019-09-21 2019-09-21 Case Bijan [facility] [id number] 00:00:00 00:00:00 Management [facility] [place] [id number] [place] [id number] [place] [phone] [address] 2019-09-21 2019-09-21 Patient Bijan [facility] [id number] 00:00:00 00:00:00 Secure Msg [facility] [place] [id number] [place] 4.2.7.2.686 [place] [phone] [address] 2019-09-20 2019-09-20 Laboratory Only, [facility] [id number] 10:01:43 10:16:43 Only Test [place] [id number] [place] 4.2.7.2.686 [place] [id number] [id number] 2019-09-20 2019-09-20 Hotel Baggage Handler Naomi, [facility] [id number] 09:55:41 10:10:41 Visit Lab Main [place] [id number] [place] 4.2.7.2.686 [place] [phone] [facility] 353 [facility] 2019-09-20 2019-09-20 Orders Doctor KEARA [id number] 00:00:00 00:00:00 Only Unassigned, CASI 350.1.13.10 [facility] 4.2.7.2.686 [id number] 2019-09-19 2019-09-[address] [facility] [id number] 13:45:12 15:57:17 ne Visit Yoseph De [place] [id number] [place] [id number] [place] [phone] [facility] 044 [facility] 2019-09-19 2019-09-19 Telephone Bijan [facility] [id number] 00:00:00 00:00:00 Wondiful A [employer] [id number] [place] 4.2.7.2.686 Professio [phone] [place] [address] [address] One Results Test Description Test [...] 65 IUnit/L 20-125 N code = ALKP) [id number] 10:12:00 Test Item Value Reference Range Interpretation [...] may jett y by method. COMPREHENSIVE METABOLIC [id number] 10:11:00 Test Item Value Reference Range Interpretation [...] TOTAL (test IUnit/L 20-125 code = ALKP) [id number] 10:11:00 Test Item Value Reference Range Interpretation [...] results may jett y by method. PROTHROMBIN [id number] 09:59:00 Test Item Value Reference Range Interpretation [...] Infarction (t o prevent recurre nt infarct). [id number] 09:59:00 Test Item Value Reference Range Interpretation [...] TESTS AND APPROPRIATECLIN ICAL EUALUATIONS. CBC W/AUTO [id number] 09:56:00 Test Item Value Reference Range Interpretation [...] code = MDIFF) - XR CHEST 1 [id number] 09:56:00 FAX: [place] Cain MD [phone] [place]: St: PRE Name: RAGHAVENDRA QUINN [facility] : 1985 Age/S: 34/F [address] [place] [address] Unit#: [id number] Loc: [place] [address] Phys: [place] Cain MD Acct: [id number] Dis Date: Status: PRE ER PHONE #: [phone] Exam Date: 08/22/2019 1003 FAX #: [phone] Reason: Chest Pain EXAMS: CPT CODE: [id number] XR CHEST 1 V 73097 PROCEDURE: CHEST SINGLE VIEW INDICATION: Chest Pain COMPARISON: There are no previous relevant studies available for correlation. FINDINGS: The lungs are clear. No pleural abnormality. The cardiomediastinalsilhouette is normal for projection. The bony thorax is intact. IMPRESSION: Normal radiograph. SL: [id number] at 0956 Reported and signed by: Samson Sousa M.D. CC: [place] Cain MD Technologist: Lilly Agarwal RT(R) Trnscrd Date/Time/By: 08/22/2019 (0956) : By: Krissy Orig Print D/T: S: 08/22/2019 (1003) PAGE 1 Signed Report
--- OUTSIDE RECORDS SUMMARY | 2019-11-21 18:31 | XMS REPORT | Summary of Care ---
:1985 Author Organization [facility] - [facility] Address [address] [place] [address] Care Team Providers Name Role Phone JoaquinShruthi Insurance Hmo Mariah Flores MD Primary Care Provider Reason for Visit Reason Comments Chest Pain Encounter Details Date Type Department Care Team Description 09/19/2019 Telemedicine Visit [facility] Minoo Flores Ches t pain, atypical (Primary Dx); Pediatric and Adult MD Mariah Immunity status testing; Primary Care- [address] Tingling of left upper extremity [place] [id number], [address] [place], [place] [phone] [address] (Fax) [phone] Allergies No Known Allergiesdocumented as of this encounter (statuses as of 09/19/2019) Medications Medication Sig Dispensed Refills Start Date End Date Status gabapentin 100 mg Take 1 capsule 30 capsule 0 09/19/2019 Active capsuleIndication by mouth 3 s: Chest pain, (three) times atypical, daily as needed Tingling of left (nerve pain). upper extremity vit Take 1 Packet 30 Each 6 11/11/2016 09/19/2019 D iscontinued 19-mwpz-qwpqt-dha by mouth daily. (SELECT-OB + DHA) 29 mg iron-1 mg -250 mg combo packIndications: Supervision of high risk , antepartum, first trimester docusate calcium Take 1 capsule 60 capsule 1 04/20/20172019 Discontinued 240 mg capsule by mouth once daily as needed for Constipation. ferrous sulfate Take 1 tablet 60 tablet 2 04/20/2017 0 Discontinued 325 mg (65 mg by mouth daily. iron) tablet ibuprofen 600 mg Take 1 tablet 60 tablet 1 04/20/2017 09/19/19 20 Discontinued tablet by mouth every 6 (six) hours as needed for Pain (scale 1-3) or Pain (scale 4-6) (Pain). Take with food or milk. albuterol 2.5 mg Inhale 3 mL 20 mL 0 08/19/2019 09/19/2019 Discontinued /3 mL (0.083 %) every 4 (four) nebulizer hours. May also solutionIndicatio nebulize one ns: Shortness of extra every 6 breath, Anxiety hours. albuterol 90 Inhale 2 Puffs 8.5 g 0 08/19/2019 09/19/2019 Discontinued mcg/actuation every 4 (four) inhalerIndication hours as needed s: Shortness of for Wheezing or breath, Anxiety Shortness of Breath. FEMYNOR 0.25-35 Take 1 tablet 0 07/19/2019 0 Discontinued mg-mcg per tablet by mouth daily. SERTraline Take 1 tablet 30 tablet 0 08/23/2019 09/19/2019 Dis continued (ZOLOFT) 50 mg by mouth daily tabletIndications for 30 days. : Anxiety ALPRAZolam 0.5 mg TAKE 1 TABLET 0 08/22/2019 020 Discontinued tablet BY MOUTH 3 TIMES A DAY NEEDED LORazepam 0.5 mg 0 08/24/2019 09/19/2019 D iscontinued tablet documented as of this encounter (statuses as of 09/19/2019) Active Problems Patient Care Coordination Note IOL scheduled for 04/18/2017 7 p.m. Problem Noted Date Papanicolaou smear of cervix with low grade squamous i ntraepithelial 08/30/2014 lesion (LGSIL) documented as of this encounter (statuses as of 09/19/2019) Resolved Problems Problem Noted Date Resolved Date [...] as of this encounter (statuses as of 09/19/2019) Immunizations Name Administration Dates Next Due TDAP [...] Signs Not on filedocumented in this encounter Progress Notes Minoo Flores MD - 09/19/2019 9:45 AM CDTI was unable to reach the patient by video or audio. Left voicemail message asking her to call backto reschedule her telehealth appointment. documented in this encounter Miscellaneous Notes Addendum Note - Minoo Flores MD - 09/19/2019 9:45 AM CDT Addended by: MINOO FLORES on: 09/19/2019 01:54 PM Modules accepted: Orders documented in this encounter Plan of Treatment Name Type Priority Associated Diagnoses Order S chedule XR CERVICAL SPINE 4 VW IMAGING Routine Chest van n, atypical Expected: 09/19/2019, Tingling of left upper Expir es: 09/18/2020 extremity XR SPINE THORACIC 4 VW IMAGING Routine Chest van n, atypical Expected: 09/19/2019, Tingling of left upper Expir es: 09/18/2020 extremity SARS-COV-2 IGG LAB Routine Immunity status testing Ex pected: 09/19/2019, Expires: 2020 Health Maintenance Due Date Last Done Comments [...] this encounter Visit Diagnoses Diagnosis Chest pain, atypical - Primary Other chest pain Immunity status testing Antibody response examination Tingling of left upper extremity documented in this encounter Advance Directives Name Relationship Healthcare Agent Relationship Co mmunication Nicki Daniels Health Care Agent
--- OUTSIDE RECORDS SUMMARY | 2019-11-21 18:32 | XMS REPORT | Summary of Care ---
:1985 Author Organization [facility] Address [address] [place] [address] Care Team Providers Name Role Phone JoaquinShruthi Insurance Hmo Mariah Flores MD Primary Care Provider Reason for Visit Reason Comments Chest Pain Encounter Details Date Type Department Care Team Description 09/19/2019 Telemedicine Visit [facility] Minoo Flores Ches t pain, atypical (Primary Dx); Pediatric and Adult MD Mariah Immunity status testing; Primary Care- [address] Tingling of left upper extremity [place] [id number], [address] [place], [place] [phone] [phone] (Fax) [phone] Allergies No Known Allergiesdocumented as of this [...] 30 Each 6 11/11/2016 09/19/2019 D iscontinued 73-tlos-nfnis-dha by mouth daily. (SELECT-OB + DHA) 29 [...] for 04/18/2017 7 p.m. Problem Noted Date Chest pain, atypical 09/19/2019 Papanicolaou smear of cervix with low grade [...] Signs Not on filedocumented in this encounter Patient Instructions Patient InstructionsMinoo Flores MD - 09/19/2019 9:45 AM CDT Patient Education Understanding Cervical Radiculopathy Cervical radiculopathy is irritation or inflammation of a nerve root in the neck. It causes neck pain and other symptoms that may spread into the chest or down the arm. To understand this condition, ithelps to understand the parts of the spine: Vertebrae. These are bones that stack to form the spine. The cervical spine contains the 7 vertebrae in the neck. Disks. These are soft pads of tissue between the vertebrae. They act as shock absorbers for the spine. The spinal canal. This is a tunnel formed within the stacked vertebrae. The spinal cord runs through this canal. Nerves. These branch off the spinal cord. As they leave the spinal canal, nerves pass through openings between the vertebrae. The nerve root is the part of the nerve that is closest to the spinal cord. With cervical radiculopathy, nerve roots in the neck become irritated. This leads to pain and symptoms that can travel to the nerves that go from the spinal cord down the arms and into the torso. What causes cervical radiculopathy? Aging, injury, poor posture, and other issues can lead to problems in the neck. These problems may then irritate nerve roots. These include: Damage to a disk in the cervical spine. The damaged disk may then press on nearby nerve roots. Degeneration from wear and tear, and aging. This can lead to narrowing (stenosis) of the openingsbetween the vertebrae. The narrowed openings press on nerve roots as they leave the spinal canal. An unstable spine. This is when a vertebra slips forward. It can then press on a nerve root. There are other, less common causes of pressure on nerves in the neck. These include infection, cysts, and tumors. Symptoms of cervical radiculopathy These include: Neck pain Pain, numbness, tingling, or weakness that travels down the arm Loss of neck movement Muscle spasms Treatment for cervical radiculopathy In most cases, your healthcare provider will first try treatments that help relieve symptoms. These may include: Prescription or kzqf-ehz-oucuatf pain medicines. These help relieve pain and swelling. Cold packs. These help reduce pain. Resting. This involves avoiding positions and activities that increase pain. Neck brace (cervical collar). This can help relieve inflammation and pain. Physical therapy, including exercises and stretches. This can help decrease pain and increase movement and function. Shots of medicinesaround the nerve roots. This is done to help relieve symptoms for a time. In some cases, your healthcare provider may advise surgery to fix the underlying problem. This depends on the cause, the symptoms, and how long the pain has lasted. Possible complications Over time, an irritated and inflamed nerve may become damaged. This may lead to long-lasting (permanent) numbness or weakness. If symptoms change suddenly or get worse, be sure to let your healthcare provider know. When to call your healthcare provider Call your healthcare provider right away if you have any of these: New pain or pain that gets worse New or increasing weakness, numbness, or tingling in your arm or hand Bowel or bladder changes [employer] last reviewed this educational content on 04/17/201519995018-0126 [employer]. [address] [place] [address]. All rights reserved. This information is not intended as a substitute for professional medical care. Always follow your healthcare professional's instructions. documented in this encounter Progress Notes Minoo Flores MD - 09/19/2019 9:45 AM CDT TELEHEALTH NOTE Verbal consent obtained from Patient: Goyo Solorio due to the COVID-19 pandemic for telehealthservices provided below. Communication with patient was conducted via Video Call. Location of Patient: Home Location of Provider: Home office Date of Service: 09/19/2019 CC: Chief Complaint Patient presents with Chest Pain HPI Goyo Solorio is a 34 year old female who participated in a Telehealth visit today for chest pain. She had a recent (w/n the past 2 weeks) negative stress test and ECHO with [facility]. Carranza in [place]. He told her that her symptoms are not cardiac and she needed to be evaluated for a possible "spine problem". She never started the sertraline prescribed to her by urgent care because she says her anxiety is only related to her chest pain and palpitations and she never feels anxious outside of having this pain. She also requests a COVID-19 antibody test due to [id number]-[id number] symptoms about 1.5 mos ago but her test for the virus was negative. Chest Pain Pain location: L chest Pain quality: sharp and shooting Pain radiates to: L arm Pain severity now: usually mild to moderate, only rarely severe. Onset quality: Sudden Duration: 1.5 months. Timing: Intermittent Progression: Unchanged Chronicity: New Context comment: The pain alway occurs at night while she is at rest Relieved by: Certain positions (laying on her right side and raising her arm) Associated symptoms: anxiety (only associated with her pain, never outside of it) and palpitations (heart-racing) Associated symptoms: no abdominal pain, no altered mental status, no anorexia, no back pain, no claudication, no cough, no diaphoresis, no dizziness, no dysphagia, no fatigue, no fever, no headache, noheartburn, no lower extremity edema, no nausea, no near-syncope, no numbness, no orthopnea, no PND, no shortness of breath, no syncope, no vomiting and no weakness Associated symptoms comment: + tingling LUE Risk factors: obesity Risk factors: no control, no coronary artery disease, no diabetes mellitus, no hypertension and no smoking No Known Allergies No current outpatient medications on file prior to visit. No current facility-administered medications on file prior to visit. Past Medical History: Diagnosis Date Absence of menstruation 09/28/2016 Anemia, antepartum, third trimester 04/19/2017 Anxiety and depression 04/19/2017 Anxiety and depression Chlamydia 08/2014 IUD complication Papanicolaou smear of cervix with low grade squamous intraepithelial lesion (LGSIL) 08/30/2014 Past Surgical History: Procedure Laterality Date APPENDECTOMY 2011 COSMETIC SURGERY 2002 mole removal REMOVE INTRAUTERINE DEVICE Family History Problem Relation Age of Onset Diabetes Paternal Aunt Diabetes Paternal Uncle Diabetes Paternal Grandmother Arthritis NoFHx Asthma NoFHx defects NoFHx Breast Cancer NoFHx Colon Cancer NoFHx Ovarian Cancer NoFHx Cancer NoFHx Uterine Cancer NoFHx Depression NoFHx Genetic NoFHx Heart NoFHx Hypertension NoFHx High cholesterol NoFHx Mental retardation NoFHx Psychiatry NoFHx Osteoporosis NoFHx Neurological NoFHx Social History Socioeconomic History Marital status: Single [...] file Gets together: Not on file Attends rastafari service: Not on file Active member of [...] Pt states she feels safe at home. Review of Systems Constitutional: Negative. Negative for diaphoresis, fatigue and fever. HENT: Negative. Negative for trouble swallowing. Eyes: Negative. Respiratory: Negative. Negative for cough and shortness of breath. Cardiovascular: Positive for chest pain and palpitations (heart-racing). Negative for orthopnea, claudication, syncope, PND and near-syncope. Gastrointestinal: Negative. Negative for abdominal pain, anorexia, heartburn, nausea and vomiting. Genitourinary: Negative. Musculoskeletal: Negative. Negative for back pain. Skin: Negative. Neurological: Negative. Negative for dizziness, weakness, numbness and headaches. Psychiatric/Behavioral: The patient is nervous/anxious (only associated with her chest pain and palpitations). Endocrine: Endocrine negative Vital signs Level of pain 0 (no chest pain currently) Physical Exam Constitutional: She is oriented to person, place, and time. She appears well- developed and well-nourished. No distress. Pulmonary/Chest: Effort normal. No respiratory distress. Neurological: She is alert and oriented to person, place, and time. Skin: No rash noted. No pallor. Psychiatric: She has a normal mood and affect. Her speech is normal and behavior is normal. Judgmentand thought content normal. Her mood appears not anxious. Thought content is not paranoid and not delusional. Cognition and memory are normal. She does not exhibit a depressed mood. She expresses no homicidal and no suicidal ideation. Labs Admission on 08/19/2019, Discharged on 08/19/2019 Component Date Value SARS-CoV-2 PCR 08/19/2019 Not Detected ASSESSMENT/PLAN Diagnoses and all orders for this visit: Chest pain, atypical; Tingling of left upper extremity We discussed the Ddx of her chest pain and LUE tingling and pain. I suspect the patient has cervical or upper thoracic radiculopathy given her symptoms improve with change in her position and always occur when she is lying in bed (positional). Imaging was recommended for further evaluation. Ice altwith/OR heat can be applied to painful areas. Tylenol Arthritis formula can be used PRN pain. Additional medications were prescribed as listed below (gabapentin, she prefers to take it PRN and not scheduled. I will consider PT, Neurology, Neurosurgery, or pain management referral based on the imaging results and the patient's response to the recommended treatment medications. - XR CERVICAL SPINE 4 VW; Future - XR SPINE THORACIC 4 VW; Future - gabapentin 100 mg capsule; Take 1 capsule by mouth 3 (three) times daily as needed (nerve pain). Immunity status testing The COVID Ab test was ordered per patient request. I explained to the patient that this test may not be covered by insurance and she accepts any cost. I also explained that antibodies to COVID-19 maywane more quickly than initially thought and that some people may not make detectable antibiodies, so a negative antibody result may not mean the patient didn't have the infection in the past. I also reminded her that a negative antibody test doesn't rule-out a current COVID-19 infection. - SARS-COV-2 IGG; Future Plan of care, desired health behaviors, goals, Ddx, and any prescribed medications were discussed with the patient. Education resources and self- management tools were provided in the After Visit Summary (AVS) which is accessible through [employer]. A total of 30 minutes was spent on the Video Call, chart review, and coordination of care with specialists. Patient/guardian/family verbalized understanding and agrees to the plan of care. Barriers to care: None. Ability to manage care: Good. Advanced care planning (living will) information was not given/offered to the patient to review for discussion at a future visit. If applicable, the [place] [employer] database was accessed to review any controlled substance prescription claims data. If the patient is taking prescribed medications, the [employer] prescription claims data in [email or web address] was reviewed to assess patient compliance with the medication treatment plan. COVID-19 precautions given including frequent handwashing, social distancing, cleaning and disinfecting, indications for testing, etc. Follow-up: Return TBD based on results of diagnostic testing. Return for routine care as scheduledor previously advised. documented in this encounter Miscellaneous Notes Addendum Note - Minoo Flores MD - 09/19/2019 9:45 AM CDT Addended by: MINOO FLORES on: 09/19/2019 03:57 PM Modules accepted: Level of Service Addendum Note - Minoo Flores MD - [...] Health Maintenance Due Date Last Done Comments PAP SMEAR 09/29/2019 09/28/2016, 08/23/2014 INFLUENZA VACCINE (#1) 2019 Depression Screening 09/18/2020 09/19/2019 DTaP,Tdap,and Td Vaccines (3 02/09/2027 02/09/2017, - [...]
--- OUTSIDE RECORDS SUMMARY | 2019-11-21 18:32 | XMS REPORT | Summary of Care ---
:1985 Author Organization [facility] - [facility] Address [address] [place] [address] Care Team Providers Name Role Phone Joaquin Shruthi Insurance Hmo Mariah Thakkar MD Primary Care Provider Encounter Details Date Type Department Care Team Description 09/21/2019 Patient Secure [facility] Pediatric Falguni Thakkar, and Adult Primary Care- MD De La Fuente [address] [place] [address] [address] [place], [place] [address], [address] [address] [place] [address] [phone] Allergies No Known Allergiesdocumented as of this encounter (statuses as of 09/21/2019) Medications Medication Sig Dispensed Refills Start Date End Date Status gabapentin 100 mg Take 1 capsule 30 capsule 0 09/19/2019 Active capsuleIndications: by mouth 3 Chest pain, atypical, (three) times Tingling of left upper daily as needed extremity (nerve pain). cyclobenzaprine 5 mg Take 1 tablet 60 tablet 0 09/21/2019 Active tabletIndications: Neck by mouth 2 muscle spasm (two) times daily as needed for Muscle Spasms. Can cause drowsiness. documented as of this encounter (statuses as of 09/21/2019) Active Problems Patient Care Coordination Note IOL scheduled for 04/18/2017 7 p.m. Problem Noted Date Chest pain, atypical 09/19/2019 Papanicolaou smear of cervix with low grade squamous i ntraepithelial 08/30/2014 lesion (LGSIL) documented as of this encounter (statuses as of 09/21/2019) Resolved Problems Problem Noted Date Resolved Date [...] as of this encounter (statuses as of 09/21/2019) Immunizations Name Administration Dates Next Due TDAP [...] been in contact with No / Unsure 09/20/2019 9:54 AM CDT someone who was confirmed or suspected to have Coronavirus / COVID-19? documented as of this encounter Last Filed Vital Signs Not on filedocumented in this encounter Miscellaneous Notes Telephone Encounter - Yoseph Thakkar MD - 09/21/2019 4:25 PM CDTResults message already sent. documented in this encounter Plan of Treatment [...]
--- OUTSIDE RECORDS SUMMARY | 2019-11-21 18:32 | XMS REPORT | Summary of Care ---
:1985 Author Organization [facility] - [facility] Address [address] [place] [address] Care Team Providers Name Role Phone Joaquin Shruthi Insurance Hmo Mariah Thakkar MD Primary Care Provider Reason for Visit Reason Comments New Medication Encounter Details Date Type Department Care Team Description 09/21/2019 Case Management [facility] Pediatric Mohan Thakkar, New Medication and Adult Primary Care- MD De La Fuente [address] [place] [address] [address] [place] [place] [address], [address] [address] [place] [address] [phone] Allergies No Known Allergiesdocumented as of this [...] filedocumented in this encounter Visit Diagnoses Diagnosis Neck muscle spasm - Primary Spasm of muscle documented in this encounter Advance Directives Name Relationship Healthcare Agent Relationship Co mmunication Nicki Rose [facility] Health Care Agent
--- OUTSIDE RECORDS SUMMARY | 2019-11-21 18:32 | XMS REPORT | Summary of Care ---
:1985 Author Organization [facility] Address [address] [place] [address] Care Team Providers Name Role Phone Joaquin Shruthi Insurance Hmo Mariah Thakkar MD Primary Care Provider Reason for Visit Reason Comments LAB WORK Auth/Cert Status Reason Specialty Diagnoses / Procedures Referred By Shruthi ontact Referred To Contact Phlebotomy Procedures Adc Pob Lab Draw [facility] Professional [facility] ffice Building [address] [place] [address] , [address] [place] [address] Phone: Fax: Encounter Details Date Type Department Care Team Description 09/20/2019 [place] Visit [facility] Bolivar Thakkar MD [address] [place] [address] [place] [address] Anxiety; Professional Office Pob, Adc Lab Main Immunity status testing; [facility] Phlebotomy Infectio n due to 2019-nCoV Lab Professional Office Building [address] [facility] [address] [place] [address] Allergies No Known Allergiesdocumented as of this encounter (statuses as of 09/20/2019) Medications Medication Sig Dispensed Refills Start Date End Date Status gabapentin 100 mg Take 1 capsule by 30 capsule 0 09/19/2019 Active capsuleIndications: mouth 3 (three) Chest pain, atypical, times daily as Tingling of left needed (nerve upper extremity pain). documented as of this encounter (statuses as of 09/20/2019) Active Problems Patient Care Coordination Note IOL scheduled for 04/18/2017 7 p.m. Problem Noted Date Chest pain, atypical 09/19/2019 Papanicolaou smear of cervix with low grade squamous i ntraepithelial 08/30/2014 lesion (LGSIL) documented as of this encounter (statuses as of 09/20/2019) Resolved Problems Problem Noted Date Resolved Date [...] as of this encounter (statuses as of 09/20/2019) Immunizations Name Administration Dates Next Due TDAP [...] Signs Not on filedocumented in this encounter Nursing Notes Sugey Wang - 09/20/2019 8:00 AM CDT Venipuncture collection performed by clean technique on the left anticubitus. Total of 1 attempts were made. Slight pressure and a bandage/dressing were applied to the site(s). The patient experienced no complications. The following specimens were processed according to instructions and sent to [facility] per lab order on today: LT BLUE SST 2 RED LAV PPT DK GREEN (LiHep) DK GREEN (SodH) JEFFRIES DK BLUE (K2) DK BLUE (S) ACD Blood Culture NIPT/NTD documented in this encounter Plan of Treatment Name Type Priority Associated Diagnoses Date/Ti me THYROID STIMULATING LAB Routine Anxiety 09/20/19 20 10:28 AM HORMONE CDT SARS-COV-2 IGG LAB Routine Immunity status testing 10:28 AM CDT Health Maintenance Due Date Last Done Comments PAP SMEAR 09/29/2019 09/28/2016, 08/23/2014 INFLUENZA VACCINE (#1) 2019 Depression Screening 09/18/2020 09/19/2019 DTaP,Tdap,and Td Vaccines (3 02/09/2027 02/09/2017, - Td) 02/07/2007 PNEUMOCOCCAL 0-64 YEARS Aged Out No longe r eligible based COMBINED SERIES on patient's age to complete this to [facility] documented as of this encounter Results Not on filedocumented in this encounter Visit Diagnoses Diagnosis Anxiety Anxiety state, unspecified Immunity status testing Antibody response examination Infection due to 2019-nCoV documented in this encounter Advance Directives Name Relationship Healthcare Agent Relationship Co mmunication Nicki Daniels Health Care Agent
--- OUTSIDE RECORDS SUMMARY | 2019-11-21 18:32 | XMS REPORT | Summary of Care ---
:1985 Author Organization [facility] Address [address] [place] [address] Care Team Providers Name Role Phone Joaquin Shruthi Insurance Hmo Mariah Thakkar MD Primary Care Provider Reason for Visit Reason Comments Notification Encounter Details Date Type Department Care Team Description 09/19/2019 Telephone [facility] Family Medicine Yoseph Puckett MD Notification - [address] [place] [address] [place] [address] [phone] Allergies No Known Allergiesdocumented as of this [...] Telephone Encounter - Yoseph Thakkar MD - 09/20/2019 6:11 PM CDTVisit completed yesterday. elephone Encounter - LuisRenetta olson - 09/19/2019 12:09 PM CDTI will leave patient on her time slot and you can just call her back when you get ready. I didn't see where I could have put her. elephone Encounter - Yoseph Thakkar MD - 09/19/2019 11:24 AM CDTShe missed her telehealth appointment. Please get her rescheduled for about 1:30pm today but I may contact her before then if I have time (I'm also working on the large number of lab and imaging results I have). Confirm the method contact in the appointment notes. Telephone Encounter - Precious Rubi - 09/19/2019 10:25 AM CDTPatient is returning call. documented in this encounter Plan of Treatment [...]
--- OUTSIDE RECORDS SUMMARY | 2019-11-21 18:32 | XMS REPORT | Summary of Care ---
:1985 Author Organization [facility] - [facility] Address [address] [place] [address] Care Team Providers Name Role Phone Joaquin Shruthi Insurance Hmo Mariah Thakkar MD Primary Care Provider Encounter Details Date Type Department Care Team Description 09/20/2019 Orders Only [facility] Doctor Unassigned, No [address] [facility] Name [place] [id number] [address] [place], [place] [id number] Allergies No Known Allergiesdocumented as of this [...] patient's age to complete this to [facility] documented as of this encounter Procedures Procedure Name Priority Date/Time Associated Diagnosis Comme nts ASSIGNMENT OF BENEFITS Routine 09/20/2019 9:56 AM CDT documented in this encounter Results Not on filedocumented in this encounter Advance Directives Name Relationship Healthcare Agent Relationship Co mmunication Nicki Rose Sibling Health Care Agent
--- OUTSIDE RECORDS SUMMARY | 2019-11-21 18:32 | XMS REPORT | Summary of Care ---
:1985 Author Organization [facility] Address [address] [place] [address] Care Team Providers Name Role Phone Shruthi Nuñez Insurance Hmo Mariah Thakkar MD Primary Care Provider Reason for Visit Auth/Cert Status Reason Specialty Diagnoses / Procedures Referred By Shruthi ontact Referred To Contact Phlebotomy Procedures Adc Pob Lab Draw [facility] Professional [facility] ffice Building [address] [place] [address] , [address] [place] [address] Phone: Fax: Encounter Details Date Type Department Care Team Description 09/21/2019 Hospital Encounter [facility] Christina Thakkar Arrived [facility] [address] [place] [facility] [place] [address] [place], [place] [phone] [address] Allergies No Known Allergiesdocumented as of this encounter (statuses as of 09/22/2019) Medications Medication Sig Dispensed Refills Start Date [...] as of this encounter (statuses as of 09/22/2019) Active Problems Patient Care Coordination Note IOL scheduled for 04/18/2017 7 p.m. Problem Noted Date Chest pain, atypical 09/19/2019 Papanicolaou smear of cervix with low grade squamous i ntraepithelial 08/30/2014 lesion (LGSIL) documented as of this encounter (statuses as of 09/22/2019) Resolved Problems Problem Noted Date Resolved Date [...] as of this encounter (statuses as of 09/22/2019) Immunizations Name Administration Dates Next Due TDAP [...] on patient's age to complete this to [facility] documented as of this encounter Procedures Procedure Name Priority Date/Time Associated Diagnosis Comme nts XR CERVICAL SPINE 4 Routine 09/21/2019 11:12 AM Chest pa in, atypical Results for this VW CDT Tingling of left procedure a re in upper extremity the results section. documented in this encounter Results XR CERVICAL SPINE 4 VW (09/21/2019 11:12 AM CDT) Specimen Impressions Performed At 1. No acute osseous findings are seen. PACS/VR/DOSE 2. Mild curvature abnormalities without degenerative changes. Narrative Performed At HISTORY:34yo F with chest pain and LUE discomfort of u nknown cause, PACS/VR/DOSE work-up for possible radiculopathy was recommend ed by her Hydraulic Governor Assembler. TECHNIQUE: Frontal, oblique and lateral views of the cervical spine were obtained. COMPARISON:None. FINDINGS: There is straightening of the cervical l ordosis with preserved sagittal alignment. The vertebral body heights ar e preserved. The craniocervical junction is unremarkable. No degenerativ e changes are seen. Procedure Note [facility], Radiant Results Inft User - 2019 11:16 AM CDT HISTORY:34yo F with chest pain and LUE discomfort of unknown cause, work-up for possible radiculopathy was recommend ed by her Hydraulic Governor Assembler. TECHNIQUE: Frontal, oblique and lateral views of the cervical spine were obtained. COMPARISON:None. FINDINGS: There is straightening of the cervical l ordosis with preserved sagittal alignment. The vertebral body heights ar e preserved. The craniocervical junction is unremarkable. No degenerativ e changes are seen. IMPRESSION 1. No acute osseous findings are seen. 2. Mild curvature abnormalities without degenerative changes. Performing Organization Address City/State/Zipcode Phone Number PACS/VR/DOSE documented in this encounter Advance Directives Name Relationship Healthcare Agent Relationship Co mmunication Nicki Rose [facility] Health Care Agent
--- OUTSIDE RECORDS SUMMARY | 2019-11-21 18:33 | XMS REPORT | Summary of Care ---
:1985 Author Organization [facility] Address [address] [place] [address] Care Team Providers Name Role Phone Shruthi Nuñez Insurance Hmo Mariah Thakkar MD Primary Care Provider Reason for Visit Auth/Cert Status Reason Specialty Diagnoses / Procedures Referred By Shruthi ontact Referred To Contact Phlebotomy Procedures Adc Pob Lab Draw [facility] Professional [facility] ffice Building [address] [place] [address] , [address] [place] [address] Phone: Fax: Encounter Details Date Type Department Care Team Description 09/21/2019 Hospital Encounter [facility] Christina Thakkar Arrived [facility] [address] [facility] [address] [place] [facility] [place] [address] [place], [place] [phone] [address] Allergies No Known Allergiesdocumented as of [...] on patient's age to complete this to [facility] documented as of this encounter Procedures Procedure Name Priority Date/Time Associated Diagnosis Comme nts XR SPINE THORACIC 4 Routine 09/21/2019 12:31 PM Chest pa in, atypical Results for this VW CDT Tingling of left procedure a re in upper extremity the results section. documented in this encounter Results XR SPINE THORACIC 4 VW (09/21/2019 12:31 PM CDT) Specimen Narrative Performed At XR SPINE THORACIC 4 VW PACS/VR/DOSE HISTORY: Female 34 years [address]yo F with [address] pain and LUE discomfort of unknown cause, work-up for possible radi culopathy was recommended by her Photographic Double. COMPARISON: None FINDINGS: The vertebral bodies are normal in heigh t and in normal alignment. No significant degenerative changes are present. Procedure Note [facility], Radiant Results Inft User - 2019 1:13 PM CDT XR SPINE THORACIC 4 VW HISTORY: Female 34 years 34yo F with [address] st pain and LUE discomfort of unknown cause, work-up for possible radi culopathy was recommended by her Photographic Double. COMPARISON: None FINDINGS: The vertebral bodies are normal in heigh t and in normal alignment. No significant degenerative changes are present. Performing Organization Address City/State/Zipcode Phone Number PACS/VR/DOSE documented in this encounter Advance Directives Name Relationship Healthcare Agent Relationship Co mmunication Nicki Rose Sibling Health Care Agent
--- OUTSIDE RECORDS SUMMARY | 2019-11-21 18:33 | XMS REPORT | Summary of Care ---
:1985 Author Organization [facility] Address [address] [place] [address] Care Team Providers Name Role Phone Shruthi Nuñez Insurance Hmo Mariah Thakkar MD Primary Care Provider Reason for Visit Auth/Cert Status Reason Specialty Diagnoses / Procedures Referred By Shruthi ontact Referred To Contact Phlebotomy Procedures Adc Pob Lab Draw [facility] Professional O ice [address] , [address] [place] [address] Phone: Fax: Encounter Details Date Type Department Care Team Description 09/21/2019 Hospital Encounter [facility] BijanRodrieleuterio pop Canceled (ERROR) [facility] MD Mariah [address] [facility] [address] [place] [address] Allergies No Known Allergiesdocumented as of this [...] re in upper extremity the results section. XR CERVICAL SPINE 4 Routine 09/21/2019 11:12 [...] possible radi culopathy was recommended by her Tick Inspector. COMPARISON: None FINDINGS: The vertebral bodies are normal in heigh t and in normal alignment. No significant degenerative changes are present. Procedure Note [facility], Radiant Results Inft User - 2019 1:13 PM CDT XR SPINE THORACIC 4 VW HISTORY: Female 34 years 34yo F with curt st pain and LUE discomfort of unknown cause, work-up for possible radi culopathy was recommended by her Tick Inspector. COMPARISON: None FINDINGS: The vertebral bodies are normal in heigh t and in normal alignment. No significant degenerative changes are present. Performing Organization Address City/State/Zipcode Phone Number PACS/VR/DOSE XR CERVICAL SPINE 4 VW (09/21/2019 11:12 AM CDT) Specimen Impressions Performed At 1. No acute osseous findings are seen. PACS/VR/DOSE 2. Mild curvature abnormalities without degenerative changes. Narrative Performed At HISTORY:34yo F with chest pain and LUE discomfort of u nknown cause, PACS/VR/DOSE work-up for possible radiculopathy was recommend ed by her Tick Inspector. TECHNIQUE: Frontal, oblique and lateral views of [...] possible radiculopathy was recommend ed by her Tick Inspector. TECHNIQUE: Frontal, oblique and lateral views of [...] Phone Number PACS/VR/DOSE documented in this encounter Visit Diagnoses Diagnosis Chest pain, atypical Other chest pain Tingling of left upper extremity documented in this encounter Advance Directives Name Relationship Healthcare Agent Relationship Co mmunication Nicki Daniels Health Care Agent
--- OUTSIDE RECORDS SUMMARY | 2019-11-21 18:34 | XMS REPORT | Summary of Care ---
:1985 Author Organization [facility] Address [address] [place] [address] Care Team Providers Name Role Phone JoaquinShruthi Insurance Hmo Mariah Thakkar MD Primary Care Provider Reason for Referral (Routine) Status Reason Specialty Diagnoses / Referred By Referred To Procedures Contact Contact New Request Neurology Diagnoses Tingling of left upper extremity Left-sided chest pain Bijan Wondiful Procedures CONSULT/REFERRAL NEUROLOGY MD Mariah [address] [place] [address] Encounter Details Date Type Department Care Team Description 09/26/2019 Patient Secure [facility] Bijan Wondiful Tingling of left upper extremity (Primary Dx); Msg Pediatric and Adult MD Mariah Left-sided chest pain Primary Care- [address] [place], [place] [address] [address], [address] [place], [place] [phone] [address] (Fax) [phone] Allergies No Known Allergiesdocumented as of this encounter (statuses as of 09/27/2019) Medications Medication Sig Dispensed Refills Start Date [...] as of this encounter (statuses as of 09/27/2019) Active Problems Patient Care Coordination Note IOL scheduled for 04/18/2017 7 p.m. Problem Noted Date Chest pain, atypical 09/19/2019 Papanicolaou smear of cervix with low grade squamous i ntraepithelial 08/30/2014 lesion (LGSIL) documented as of this encounter (statuses as of 09/27/2019) Resolved Problems Problem Noted Date Resolved Date [...] as of this encounter (statuses as of 09/27/2019) Immunizations Name Administration Dates Next Due TDAP [...] filedocumented in this encounter Visit Diagnoses Diagnosis Tingling of left upper extremity - Prima ry Left-sided chest pain documented in this encounter Advance Directives Name Relationship Healthcare Agent Relationship Co mmunication Nicki Rose Sibling Health Care Agent
--- OUTSIDE RECORDS SUMMARY | 2019-11-21 18:34 | XMS REPORT | Summary of Care ---
:1985 Author Organization [facility] Address [address] [place] [address] Care Team Providers Name Role Phone JoaquinShruthi Insurance Hmo Mariah Thakkar MD Primary Care Provider Reason for Visit Reason Comments LAB WORK Auth/Cert Status Reason Specialty Diagnoses / Procedures Referred By Shruthi medinaact Referred To Contact Phlebotomy Procedures Adc Pob Lab Draw [facility] Professional O [address] , [address] [place] [address] Phone: Fax: Encounter Details Date Type Department Care Team Description 09/20/2019 Laboratory Only [facility] Kevan Beaulieu MD [address] [facility] [place] [place] [address] [place] [address] Infection due to Phlebotomy Only, Adc Test 2018-nCoV (Primary Lab-[facility]) [address] [place] [address] Allergies No Known Allergiesdocumented as of this encounter (statuses as of 10/02/2019) Medications Medication Sig Dispensed Refills Start Date End Date Status gabapentin 100 mg Take 1 capsule by 30 capsule 0 09/19/2019 Active capsuleIndications: mouth 3 (three) Chest pain, atypical, times daily as Tingling of left needed (nerve upper extremity pain). documented as of this encounter (statuses as of 10/02/2019) Active Problems Patient Care Coordination Note IOL scheduled for 04/18/2017 7 p.m. Problem Noted Date Chest pain, atypical 09/19/2019 Papanicolaou smear of cervix with low grade squamous i ntraepithelial 08/30/2014 lesion (LGSIL) documented as of this encounter (statuses as of 10/02/2019) Resolved Problems Problem Noted Date Resolved Date [...] as of this encounter (statuses as of 10/02/2019) Immunizations Name Administration Dates Next Due TDAP [...] filedocumented in this encounter Visit Diagnoses Diagnosis Infection due to 2019-nCoV - Primary documented in this encounter Advance Directives Name Relationship Healthcare Agent Relationship Co mmunication Nicki Rose Jeremiah Health Care Agent
--- NOTE | 2019-11-21 19:59 | RAD REPORT ---
EXAM DESCRIPTION: CT - Head Brain Wo Cont - 11/21/2019 7:47 pm CLINICAL HISTORY: Headache COMPARISON: August 2019 TECHNIQUE: Computed axial tomography of the head was obtained. IV contrast was not requested. All CT scans are performed using dose optimization technique as appropriate and may include automated exposure control or mA/KV adjustment according to patient size. FINDINGS: An intracranial bleed is not seen . The ventricles are normal in caliber. No extra-axial fluid collection is noted. Fluid within the sinuses/ mastoids is not seen. IMPRESSION: No acute intracranial abnormality is seen. If patient's symptoms persist MRI of the bra in would be recommended.
[2019-11-21] MEDS ORDERED: ACETAMINOPHEN 500 MG TAB ONE (20:02)
[2019-11-21] MEDS ORDERED: NA CHLORIDE 0.9% 1,000 ML ONE (20:03)
[2019-11-21 20:07] LABS: Absolute Lymphocytes (CBC) 3.8 K/uL (0.7-4.9); Basophils % 0.8 % (0-1.3); Hematocrit 44.2 % (36.0-45.0); MPV 7.6 fL (7.6-11.3); RBC Red Blood Cell Count 5.63 M/uL (3.86-4.86)
[2019-11-21 20:11] LABS: Protime INR 1.12
[2019-11-21 20:14] LABS: Urine Blood NEGATIVE (NEG); Urine Glucose NEGATIVE (NEG); Urine Protein 1+ (NEG); Urine Specific Gravity >1.030 (1.005-1.030)
[2019-11-21 20:20] LABS: ALT/SGPT 18 U/L (12-78); AST/SGOT 10 U/L (15-37); Albumin 3.3 g/dL (3.4-5.0); Alkaline Phosphatase 73 U/L (45-117); BUN Blood Urea Nitrogen 17 mg/dL (7-18); Bicarbonate 28 mmol/L (21-32); Bilirubin Direct < 0.1 mg/dL (0-0.2); Bilirubin Total 0.3 mg/dL (0.2-1.0); Glucose Level 93 mg/dL (74-106); Potassium 3.7 mmol/L (3.5-5.1); Protein, Total 8.9 g/dL (6.4-8.2); Sodium Level 142 mmol/L (136-145)
--- NOTE | 2019-11-21 22:04 | ER ---
Nurse's Notes [facility] Name: Goyo Solorio Age: 34 yrs Sex: Female : 1985 Arrival Date: 11/21/2019 Time: 18:30 Bed 18 Private MD: Diagnosis: Headache Presentation: 11/20 18:45 Chief complaint: Patient states: Headache since last night. Reports nausea and ca1 dizziness today. Denies HX of headaches and migraines. Headache at center of forehead and vince temples. Coronavirus screen: Client denies travel out of the [place] in the last 14 days. headache, nausea, Client presents with at least one sign or symptom that may indicate coronavirus-19. Standard/surgical mask placed on the client. Provider contacted for isolation considerations. The client reports previous COVID testing was negative. Date of collection: October 2019. Ebola Screen: Patient negative for fever greater than or equal to 101.5 degrees Fahrenheit, and additional compatible Ebola Virus Disease symptoms Patient denies exposure to infectious person. Patient denies travel to an Ebola-affected area in the 21 days before illness onset. No symptoms or risks identified at this time. Initial Sepsis Screen: Does the patient meet any 2 criteria? No. Patient's initial sepsis screen is negative. Does the patient have a suspected source of infection? No. Patient's initial sepsis screen is negative. Risk Assessment: Do you want to hurt yourself or someone else? Patient reports no desire to harm self or others. Onset of symptoms was November 20, 2019. 18:45 Method Of Arrival: Ambulatory ca1 18:45 Acuity: EUGENIO 3 ca1 INSTRUMENT/CONTROL TECHNICIAN: 18:49 LMP N/A - Irregular menses ca1 Historical: - Allergies: 18:49 No Known Allergies; ca1 - Home Meds: 18:49 None [Active]; ca1 - PMHx: 18:49 Anxiety; ca1 - PSHx: 18:49 Appendectomy; ca1 - Immunization history:: Adult Immunizations up to date, Flu vaccine is not up to date. - Social history:: Smoking status: Patient reports the use of cigarette tobacco products, denies chronic smoking, but will smoke occasionally. Screenin:00 Abuse screen: Denies threats or abuse. Nutritional screening: No deficits noted. fu Tuberculosis screening: No symptoms or risk factors identified. Fall Risk None identified. Assessment: 19:00 General: Appears uncomfortable, Behavior is calm, cooperative, appropriate for age. fu Pain: Complains of pain in forehead Pain does not radiate. Pain currently is 5 out of 10 on a pain scale. Quality of pain is described as aching, Pain began 1 day ago. Neuro: Level of Consciousness is awake, alert, obeys commands, Oriented to person, place, time, situation, Drosophere Operator are equal bilaterally Moves all extremities. Gait is steady, Speech is normal, Facial symmetry appears normal. Cardiovascular: Denies chest pain. Respiratory: Respiratory effort is even, unlabored. GI: No signs and/or symptoms were reported involving the gastrointestinal system. : No signs and/or symptoms were reported regarding the genitourinary system. Derm: No signs and/or symptoms reported regarding the dermatologic system. Musculoskeletal: No signs and/or symptoms reported regarding the musculoskeletal system. 20:00 Reassessment: Patient appears in no apparent distress at this time. Patient and/or fu family updated on plan of care and expected duration. Pain level reassessed. Patient is alert, oriented x 3, equal unlabored respirations, skin warm/dry/pink. 20:50 Reassessment: Patient wants to take 500mg of Tylenol only, Dr Villegas notified. fu 22:00 Reassessment: Patient appears in no apparent distress at this time. Patient and/or fu family updated on plan of care and expected duration. Pain level reassessed. Patient is alert, oriented x 3, equal unlabored respirations, skin warm/dry/pink. Patient states feeling better. Vital Signs: 18:45 BP 107 / 72; Pulse 116; Resp 16 S; Temp 97.3(TE); Pulse Ox 99% on R/A; Weight 81.65 kg ca1 (R); Height 5 ft. 1 in. (154.94 cm) (R); Pain 6/10; 20:00 BP 127 / 65; Pulse 75; Resp 16; Temp 98.8(O); Pulse Ox 98% on R/A; Pain 4/10; fu 21:00 BP 120 / 75; Pulse 62; Resp 16; Pulse Ox 96% on R/A; Pain 3/10; fu 18:45 Body Mass Index 34.01 (81.65 kg, 154.94 cm) ca1 [place] Coma Score: 22:02 Eye Response: spontaneous(4). Verbal Response: oriented(5). Motor Response: obeys mh7 commands(6). Total: 15. ED Course: 18:30 Patient arrived in ED. ds1 18:48 Triage completed. ca1 18:49 Arm band placed on right wrist. ca1 19:06 Chema Villegas MD is Attending Physician. mh7 19:14 Andres Thompson RN is Primary Nurse. fu 19:34 Flu and/or RSV swab sent to lab. Strep swab sent to lab. Patient maintains SpO2 jp3 saturation greater than 95% on room air. 19:42 Initial lab(s) drawn, by ma, sent to lab. Inserted saline lock: 20 gauge in right jp3 antecubital area, using aseptic technique. Blood collected. 19:46 Placed in gown. Bed in low position. Call light in reach. Side rails up X 1. Warm jp3 blanket given. Verbal reassurance given. Pulse ox on. NIBP on. 19:46 Urine collected: clean catch specimen, clear, hawa colored. jp3 19:48 CT Head Brain wo Cont In Process Unspecified. EDMS 21:00 No provider procedures requiring assistance completed. fu 22:20 IV discontinued, bleeding controlled, Pressure dressing applied. fu Administered Medications: 20:48 Drug: Tylenol 500 mg Route: PO; fu 21:48 Follow up: Response: Pain is decreased fu 20:49 Drug: NS 0.9% 1000 ml Route: IV; Rate: 1000 ml; Site: right antecubital; fu 22:40 Follow up: Response: No adverse reaction fu Point of Care Testing: Urine : 19:46 hCG Reading: Negative; Control Reading: Positive; jp3 Outcome: 22:04 Discharge ordered by . 7 22:20 Discharged to home ambulatory. fu 22:20 Condition: stable 22:20 Discharge instructions given to patient, Instructed on discharge instructions, follow up and referral plans. Demonstrated understanding of instructions, follow-up care, Prescriptions given X 1. 22:28 Patient left the ED. mw2 Addendum: 11/23/2019 14:34 Addendum: COVID-19 Result: Negative result given to RN to notify pt. Contacted by: gilson Barrera RN. Notified pt of negative COVID 19 swab results. Pt advised that even with a negative test result they should remain in isolation until symptom free for 3 days without medication. Pt also advised to return to the ED for worsening symptoms. Signatures: Dispatcher [employer] Aurora Bird, Peyton Sweet RN ds1 Andres Thompson RN RN Luis Mccauley mw2 Kevin Esquivel jp3 Kalani Martin RN RN ca1 Holmes, Maurice, MD MD 7
--- NOTE | 2019-11-21 22:05 | EDPHYS ---
Physician Documentation [facility] Name: Goyo Solorio Age: 34 yrs Sex: Female : 1985 Arrival Date: 11/21/2019 Time: 18:30 Bed 18 Private MD: ED Physician Chema Villegas HPI: 11/20 20:26 This 34 yrs old Female presents to ER via Ambulatory with complaints of mh7 Headache, Dizziness, Nausea. 20:27 The patient complains of pain to the forehead. The patient describes the headache as mh7 intermittent, waxing and waning, Sharp. Onset: The symptoms/episode began/occurred yesterday. Associated signs and symptoms: Pertinent positives: dizziness, nausea, Pertinent negatives: altered mental status, fever, malaise, neck stiffness, paresthesias, Photophobia rash, sinus congestion, sinus tenderness, vision changes, vision loss, vomiting, weakness, vertigo. Severity of symptoms: At its worst the pain was moderate, yesterday, in the emergency department the pain has improved, moderately. Headache History: Denies prior headaches. The symptoms are alleviated by nothing. the symptoms are aggravated by nothing. 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 - Social history:: Smoking status: Patient reports the use of cigarette tobacco products, denies chronic smoking, but will smoke occasionally. ROS: 20:27 Constitutional: Negative for fever, chills, and weight loss, Eyes: Negative for injury, mh7 pain, redness, and discharge, ENT: Negative for injury, pain, and discharge, Neck: Negative for injury, pain, and swelling, Cardiovascular: Negative for chest pain, palpitations, and edema, Respiratory: Negative for shortness of breath, cough, wheezing, and pleuritic chest pain, Back: Negative for injury and pain, : Negative for injury, bleeding, discharge, and swelling, MS/Extremity: Negative for injury and deformity, Skin: Negative for injury, rash, and discoloration, Psych: Negative for depression, anxiety, suicide ideation, homicidal ideation, and hallucinations, Allergy/Immunology: Negative for hives, rash, and allergies, Endocrine: Negative for neck swelling, polydipsia, polyuria, polyphagia, and marked weight changes, Hematologic/Lymphatic: Negative for swollen nodes, abnormal bleeding, and unusual bruising. Exam: 20:27 Constitutional: This is a well developed, well nourished patient who is awake, alert, mh7 and in no acute distress. Head/Face: Normocephalic, atraumatic. Eyes: Pupils equal round and reactive to light, extra-ocular motions intact. Lids and lashes normal. Conjunctiva and sclera are non-icteric and not injected. Cornea within normal limits. Periorbital areas with no swelling, redness, or edema. Neck: Trachea midline, no thyromegaly or masses palpated, and no cervical lymphadenopathy. Supple, full range of motion without nuchal rigidity, or vertebral point tenderness. No Meningismus. Chest/axilla: Normal chest wall appearance and motion. Nontender with no deformity. No lesions are appreciated. Cardiovascular: Regular rate and rhythm with a normal S1 and S2. No gallops, murmurs, or rubs. Normal PMI, no JVD. No pulse deficits. Respiratory: Lungs have equal breath sounds bilaterally, clear to auscultation and percussion. No rales, rhonchi or wheezes noted. No increased work of breathing, no retractions or nasal flaring. Abdomen/GI: Soft, non-tender, with normal bowel sounds. No distension or tympany. No guarding or rebound. No evidence of tenderness throughout. Back: No spinal tenderness. No costovertebral tenderness. Full range of motion. Skin: Warm, dry with normal turgor. Normal color with no rashes, no lesions, and no evidence of cellulitis. MS/ Extremity: Pulses equal, no cyanosis. Neurovascular intact. Full, normal range of motion. Neuro: Awake and alert, GCS 15, oriented to person, place, time, and situation. Cranial nerves II-XII grossly intact. Motor strength 5/5 in all extremities. Sensory grossly intact. Cerebellar exam normal. Normal gait. Psych: Awake, alert, with orientation to person, place and time. Behavior, mood, and affect are within normal limits. Vital Signs: 18:45 BP 107 / 72; Pulse 116; Resp 16 S; Temp 97.3(TE); Pulse Ox 99% on R/A; Weight 81.65 kg ca1 (R); Height 5 ft. 1 in. (154.94 cm) (R); Pain 6/10; 20:00 BP 127 / 65; Pulse 75; Resp 16; Temp 98.8(O); Pulse Ox 98% on R/A; Pain 4/10; fu 21:00 BP 120 / 75; Pulse 62; Resp 16; Pulse Ox 96% on R/A; Pain 3/10; fu 18:45 Body Mass Index 34.01 (81.65 kg, 154.94 cm) ca1 [place] Coma Score: 22:02 Eye Response: spontaneous(4). Verbal Response: oriented(5). Motor Response: obeys [facility] commands(6). Total: 15. MDM: 19:24 Patient medically screened. 7 22:02 Differential diagnosis: cluster headache, intracerebral hemorrhage, meningitis, mh7 migraine, sinusitis, tension headache. Data reviewed: vital signs, nurses notes, old medical records, lab test result(s), CBC, electrolytes, urinalysis, radiologic studies, CT scan. Data interpreted: Pulse oximetry: on room air is 99 %. Interpretation: normal. Counseling: I had a detailed discussion with the patient and/or guardian regarding: the historical points, exam findings, and any diagnostic results supporting the discharge/admit diagnosis, lab results, radiology results, the need for outpatient follow up, to return to the emergency department if symptoms worsen or persist or if there are any questions or concerns that arise at home. Response to treatment: the patient's symptoms have resolved after treatment, the patient's blood pressure is in an acceptable range, mental status has returned to baseline, the patient no longer shows bradycardia, the patient is not short of breath, the patient is not tachycardic, the patient's pain is gone, the patient's temperature has normalized. Refusal of service: The patient/guardian displays adequate decision making capability and despite a detailed discussion of alternatives, benefits, risks, and consequences refuses: Medications, Lumbar Puncture procedure. 11/20 19:26 Order name: CBC with Diff; Complete Time: 20:30 mh7 11/20 19:26 Order name: Basic Metabolic Panel; Complete Time: 20:30 mh7 11/20 19:26 Order name: LFT's; Complete Time: 20:30 [facility] 11/20 19:26 Order name: Protime (+inr); Complete Time: 20:30 [facility] 11/20 19:26 Order name: Ptt, Activated; Complete Time: 20:30 [facility] 11/20 19:26 Order name: Influenza Screen (a \T\ B); Complete Time: 20:30 [facility] 11/20 19:26 Order name: Strep; Complete Time: 20:30 [facility] 11/20 19:26 Order name: CT Head Brain wo Cont; Complete Time: 20:30 [facility] 11/20 19:57 Order name: Urine Dipstick--Ancillary (enter results); Complete Time: 20:30 [facility] 11/20 19:57 Order name: Urine --Ancillary (enter results); Complete Time: 20:30 [facility] 11/20 20:26 Order name: Throat Culture [facility] 11/20 22:05 Order name: COVID-19 [facility] 11/20 19:26 Order name: Urine Dipstick-Ancillary (obtain specimen); Complete Time: 19:57 [facility] 11/20 19:26 Order name: Urine Test (obtain specimen); Complete Time: 19:56 mh7 Administered Medications: 20:48 Drug: Tylenol 500 mg Route: PO; fu 21:48 Follow up: Response: Pain is decreased fu 20:49 Drug: NS 0.9% 1000 ml Route: IV; Rate: 1000 ml; Site: right antecubital; fu 22:40 Follow up: Response: No adverse reaction fu Point of Care Testing: Urine : 19:46 hCG Reading: Negative; Control Reading: Positive; jp3 Disposition: 11/21/19 22:04 Discharged to Home. Impression: Headache. - Condition is Stable. - Discharge Instructions: General Headache Without Cause. - Prescriptions for Zofran ODT 4 mg Oral tablet,disintegrating - place 1 tablet by TRANSLINGUAL route every 8 hours As needed; 6 tablet. - Medication Reconciliation Form, Thank You Letter, Antibiotic Education, Prescription Opioid Use form. - Follow up: Private Physician; When: 1 - 2 days; Reason: Worsening of condition, Recheck today's complaints, Continuance of care, Re-evaluation by your physician. - Problem is new. - Symptoms have improved. Signatures: Dispatcher [employer] EDMS Andres Thompson RN RN fu Luis Mccauley mw2 Kalani Martin RN Chema Kaiser MD MD mh7 Corrections: (The following items were deleted from the chart) 22:28 22:04 11/21/2019 22:04 Discharged to Home. Impression: Headache. Condition is Stable. mw2 Forms are Medication Reconciliation Form, Thank You Letter, Antibiotic Education, Prescription Opioid Use. Follow up: Private Physician; When: 1 - 2 days; Reason: Worsening of condition, Recheck today's complaints, Continuance of care, Re-evaluation by your physician. Problem is new. Symptoms have improved. mh7
[2019-11-21 22:35] VITALS: BP 107/72; TEMP 97.3; O2SAT 99
== END 2019-11-21 22:28 | disposition home or self-care (01) ==
LOC: ER 18:28
DX: R51.9 Headache, unspecified (principal); Z20.828 Contact with and (suspected) exposure to other viral communicable diseases; Z72.0 Tobacco use
CPT/HCPCS: 87070; 85025; 80048; 36415; 81025; 85610; 80076; 87081; 85730; 81003; 87804 ×2; 70450; 99284; U0002; J7030

== ENCOUNTER 2019-11-25 23:11 | Emergency (ER) | payer OTHER ==
--- OUTSIDE RECORDS SUMMARY | 2019-11-25 23:14 | XMS REPORT | Continuity of Care Document ---
:1985 Author Organization [facility] t Address [address] [place] [address] Care Team Providers Name Role Phone Mariah [...] Allergie 7-15 Clear s 00:00: [facility] 00 [facility] No Known DA Active U 2012-02 [facility] Allergie 0-06 Clear s 00:00: [facility] 00 [facility] Medications This patient has no known medications. Procedures This patient has no known procedures. Encounters Start End Encounter Admission Attending Care Care Encounter Source Date/Time Date/Time Type Type Clinicians Facility Department ID 2019-09-26 2019-09-26 Patient BijanMADAN [id number] 00:00:00 00:00:00 Secure [facility] Yoseph De [place]ente [id number] [place] 4.2.7.2.686 Skip [id number] 2019-09-21 2019-09-21 Hospital [facility] [id number] 11:10:44 23:59:00 Encounter [place] [id number] [place] 4.2.7.2.686 [place] [id number] 2019-09-21 2019-09-21 [facility] [id number] 11:00:00 11:09:00 Encounter Wondiful A [place] [id number] [place] 4.2.7.2.686 [place] [id number] 2019-09-21 2019-09-21 [facility] [id number] 09:56:26 10:59:00 Encounter Wondiful A [place] [id number] [place] 4.2.7.2.686 [place] [id number] 2019-09-21 2019-09-21 Case [facility] [id number] 00:00:00 00:00:00 Management Wondiful A [place] [id number] [place] 4.2.7.2.686 Profess[place] [id number] [address] 2019-09-21 2019-09-21 Patient [facility] [id number] 00:00:00 00:00:00 Secure Msg Wondiful A [place] 350.1.13.10 [place] 4.2.7.2.686 [facility] [id number] [address] 2019-09-20 2019-09-20 Laboratory Only, [facility] [id number] 10:01:43 10:16:43 Only Test [place] 350.1.13.10 [place] 4.2.7.2.686 [place] [id number] 2019-09-20 2019-09-20 Director Of Operations Support Naomi, [facility] [id number] 09:55:41 10:10:41 Visit Lab Main [place] 350.1.13.10 [place] 4.2.7.2.686 Profess[facility] [id number] [facility] 2019-09-20 2019-09-20 Orders Doctor KEARA [id number] 00:00:00 00:00:00 Only Unassigned, CASI 350.1.13.10 [facility] 4.2.7.2.686 [id number] 2019-09-19 2019-09-19 [facility] [id number] 13:45:12 15:57:17 ne Visit Yoseph De [place] 350.1.13.10 [place] 4.2.7.2.686 [facility] [id number] [facility] 2019-09-19 2019-09-19 Telephone [facility] [id number] 00:00:00 00:00:00 Wondiful A [employer] 350.1.13.10 [place] 4.2.7.2.686 Professio [phone] [place] [address] [address] One Results Test Description Test [...] 65 IUnit/L 20-125 N code = ALKP) [id number] 10:12:00 Test Item Value Reference Range Interpretation [...] may jett y by method. COMPREHENSIVE METABOLIC [id number] 10:11:00 Test Item Value Reference Range Interpretation [...] TOTAL (test IUnit/L 20-125 code = ALKP) [id number] 10:11:00 Test Item Value Reference Range Interpretation [...] results may jett y by method. PROTHROMBIN [id number] 09:59:00 Test Item Value Reference Range Interpretation [...] Infarction (t o prevent recurre nt infarct). [id number] 09:59:00 Test Item Value Reference Range Interpretation [...] TESTS AND APPROPRIATECLIN ICAL EUALUATIONS. CBC W/AUTO [id number] 09:56:00 Test Item Value Reference Range Interpretation [...] code = MDIFF) - XR CHEST 1 [id number] 09:56:00 FAX: Dallas Cain MD [phone] [place]: St: PRE Name: RAGHAVENDRA QUINN [facility] : 1985 Age/S: 34/F [address] [place] [address] Unit#: [id number] Loc: [place] [address] Phys: Dallas Cain MD Acct: [id number] Dis Date: Status: PRE ER PHONE #: [phone] Exam Date: 08/22/2019 1003 FAX #: [phone] Reason: Chest Pain EXAMS: CPT CODE: [id number] XR CHEST 1 V 16266 PROCEDURE: CHEST SINGLE VIEW INDICATION: Chest Pain COMPARISON: There are no previous relevant studies available for correlation. FINDINGS: The lungs are clear. No pleural abnormality. The cardiomediastinalsilhouette is normal for projection. The bony thorax is intact. IMPRESSION: Normal radiograph. SL: [id number] at 0956 Reported and signed by: Samson Sousa M.D. CC: Dallas Cain MD Technologist: Lilly Agarwal RT(R) Trnscrd Date/Time/By: 08/22/2019 (0956) : By: Krissy Orig Print D/T: S: 08/22/2019 (1003) PAGE 1 Signed Report
--- OUTSIDE RECORDS SUMMARY | 2019-11-25 23:15 | XMS REPORT | Summary of Care ---
:1985 Author Organization [facility] Address [address] [place] [id number] Care Team Providers Name Role Phone JoaquinShruthi [employer] Mariah Flores MD Primary Care Provider Reason for Visit Reason Comments Chest Pain Encounter Details Date Type Department Care Team Description 09/19/2019 Telemedicine Visit [facility] Minoo Flores Ches t pain, atypical (Primary Dx); Pediatric and Adult MD Mariah Immunity status testing; Primary Care- [address] [facility] Tingling of left upper extremity [place] [id number], [address] [place], [place] [phone] [address] (Fax) [phone] Allergies No Known Allergiesdocumented as of this [...] 30 Each 6 11/11/2016 09/19/2019 D iscontinued 74-uyct-tnpoa-dha by mouth daily. (SELECT-OB + DHA) 29 [...] relieve symptoms. These may include: Prescription or lhix-foh-fbnvdof pain medicines. These help relieve pain and [...] arm or hand Bowel or bladder changes [employer] last reviewed this educational content on 04/17/201519997711-3013 [employer]. [address] [place] [address]. All rights reserved. This information is not [...] weeks) negative stress test and ECHO with [facility] Dr. Carranza in [place]. He told her that her symptoms are [...] requests a COVID-19 antibody test due to [id number]-94-[id number] symptoms about 1.5 mos ago but her [...] Visit Summary (AVS) which is accessible through [employer]. A total of 30 minutes was spent on the Video Call, chart review, and coordination of care with specialists. Patient/guardian/family verbalized understanding and agrees to the plan of care. Barriers to care: None. Ability to manage care: Good. Advanced care planning (living will) information was not given/offered to the patient to review for discussion at a future visit. If applicable, the [place] [employer] database was accessed to review any controlled substance prescription claims data. If the patient is taking prescribed medications, the [employer] prescription claims data in [place] was reviewed to assess patient compliance with [...]
--- OUTSIDE RECORDS SUMMARY | 2019-11-25 23:15 | XMS REPORT | Summary of Care ---
:1985 Author Organization [facility] Address [address] [place] [address] Care Team Providers Name Role Phone Shruthi Nuñez Insurance Hmo Jocelyn Stephen Primary Care Provider Reason for Visit Reason Comments Nausea Other Rapid heart beat, Pt states she is seeing a soap press feeder. SHe just had a stress test done [...] Department Care Team Description 09/14/[address] [facility] Family Easton Baca FNP [address] [place] [address] Anxiety (Primary Dx) Medicine - [place] [facility] [address] [place] [address] Allergies No Known Allergiesdocumented as of this encounter (statuses as of 09/14/2019) Medications Medication Sig Dispensed Refills Start Date End Date Status vit Take 1 Packet by 30 Each 6 11/11/2016 Active 36-jiiu-eenjo-dha mouth daily. (SELECT-OB + DHA) 29 mg [...] check with your pharmacist before using any kuuo-xpj-ekisaas medicines (OTCs), including herbal supplements. Some OTCs may interact with your anti-anxiety medicines andincrease or decrease their effectiveness. [employer] last reviewed this educational content on 01/07/201919997843-4055 [employer]. [address] [place] [address], [place] [address]. All rights reserved. This information is not intended as a substitute for professional medical care. Always follow your healthcare professional's instructions. documented in this encounter Progress Notes Marlyn Baca FNP - 09/14/2019 1:00 PM CDT Cc: Chief Complaint Patient presents with Nausea Other Rapid heart beat, Pt states she is seeing a soap press feeder. SHe just had a stress test done [...] her. She was also referred to a soap press feeder and is now under care of a soap press feeder with pendingecho and stress test next week. [...] food or milk. 60 tablet 1 vit 05-owss-npglh-dha (SELECT-OB + DHA) 29 mg iron-1 mg [...] file Gets together: Not on file Attends yarsani service: Not on file Active member of [...] of the visit time. If applicable, the [place] CLAIM PROCESSING SPECIALIST database was accessed to review any controlled substance prescription claims data. The [employer] prescription claims data in [employer] was reviewed to assess patient compliance with the medication treatment plan. Joanne Ramirez MA - 09/14/2019 1:00 PM CDT Goyo Solorio is a 34 year old female Chief Complaint Patient presents with Nausea Other Rapid heart beat, Pt states she is seeing a soap press feeder. SHe just had a stress test done [...] lb (81.6 kg) Height: 5' (1.524 m) [facility]/pharmacy #[id number] - [place], [place] - [address] [place] [address] AT [facility] All Vitals taken, allergies and all medications reviewed, fall risk assessed. Pain level 0. Joanne Chandler MA 09/14/2019 1:09 PM documented in this encounter Plan of Treatment Date Type Specialty Care Team Description 09/19/2019 Telemedicine Visit Family Medicine Falguni Thakkar MD [address] [place] [phone] 10/29/2019 Office Visit Family Mohan Rodarte MD [address] [place] [phone] Health Maintenance Due Date Last [...]
--- OUTSIDE RECORDS SUMMARY | 2019-11-25 23:15 | XMS REPORT | Summary of Care ---
:1985 Author Organization [facility] Address [address] [place] [address] Care Team Providers Name Role Phone Joaquin Shruthi Insurance Hmo Mariah Thakkar MD Primary Care Provider Encounter Details Date Type Department Care Team Description 09/20/2019 Orders Only [facility] Doctor Unassigned, No [address] [facility] Name [place] [id number] [address] [place], [place] [id number] Allergies No Known Allergiesdocumented as of this [...] on patient's age to complete this to [facility] documented as of this encounter Procedures Procedure Name Priority Date/Time Associated Diagnosis Comme nts ASSIGNMENT OF BENEFITS Routine 09/20/2019 9:56 AM CDT documented in this encounter Results Not on filedocumented in this encounter Advance Directives Name Relationship Healthcare Agent Relationship Co mmunication Nicki Rose Sibling Health Care Agent
--- OUTSIDE RECORDS SUMMARY | 2019-11-25 23:15 | XMS REPORT | Summary of Care ---
:1985 Author Organization [facility] Address [address] [place] [address] Care Team Providers Name Role Phone JoaquinSrhuthi Insurance Hmo Mariah Flores MD Primary Care Provider Reason for Visit Reason Comments Chest Pain Encounter Details Date Type Department Care Team Description 09/19/2019 Telemedicine Visit [facility] Minoo Flores Ches t pain, atypical (Primary Dx); Pediatric and Adult MD Mariah Immunity status testing; Primary Care- [address] [facility] [address] Tingling of left upper extremity [place] [phone], [address] [place], [place] [phone] [address] (Fax) [phone] Allergies No Known Allergiesdocumented as of this [...] 30 Each 6 11/11/2016 09/19/2019 D iscontinued 83-fgcd-amubh-dha by mouth daily. (SELECT-OB + DHA) 29 [...]
--- OUTSIDE RECORDS SUMMARY | 2019-11-25 23:16 | XMS REPORT | Summary of Care ---
:[address] [facility] Address [address] [place] [address] Care Team Providers Name Role Phone Joaquin Shruthi Insurance Hmo Mariah Thakkar MD Primary Care Provider Reason for Visit Reason Comments Notification Encounter Details Date Type Department Care Team Description 09/19/2019 Telephone [facility] Family Medicine Yoseph Puckett MD Notification - [address] [place] [address] [place] [address] [phone] Allergies No Known Allergiesdocumented as of this [...]
--- OUTSIDE RECORDS SUMMARY | 2019-11-25 23:16 | XMS REPORT | Summary of Care ---
:1985 Author Organization [facility] Address [address] [place] [address] Care Team Providers Name Role Phone Shruthi Nuñez Insurance Hmo Mariah Thakkar MD Primary Care Provider Reason for Visit Auth/Cert Status Reason Specialty Diagnoses / Procedures Referred By Shruthi ontact Referred To Contact Phlebotomy Procedures Adc Pob Lab Draw [facility] Professional O ffice Building [address] [place] [address] , [address] [place] [address] Phone: Fax: Encounter Details Date Type Department Care Team Description 09/21/2019 Hospital Encounter [facility] Christina Thakkar Arrived [facility] [address] [facility] [address] [facility] [place] [address] [place], [place] [phone] Allergies No Known Allergiesdocumented as of [...] on patient's age to complete this to [facility] documented as of this encounter [...] possible radi culopathy was recommended by her Learning Facilitator. COMPARISON: None FINDINGS: The vertebral bodies are normal in heigh t and in normal alignment. No significant degenerative changes are present. Procedure Note [facility], Radiant Results Inft User - 2019 1:13 PM CDT XR SPINE THORACIC 4 VW HISTORY: Female 34 years 34yo F with [address] st pain and LUE discomfort of unknown cause, work-up for possible radi culopathy was recommended by her Learning Facilitator. COMPARISON: None FINDINGS: The vertebral bodies are normal in heigh t and in normal alignment. No significant degenerative changes are present. Performing Organization Address City/State/Zipcode Phone Number PACS/VR/DOSE documented in this encounter Advance Directives Name Relationship Healthcare Agent Relationship Co mmunication Nicki Rose Sibling Health Care Agent
--- OUTSIDE RECORDS SUMMARY | 2019-11-25 23:16 | XMS REPORT | Summary of Care ---
:1985 Author Organization [facility] Address [address] [place] [address] Care Team Providers Name Role Phone Joaquin Shruthi Insurance Hmo Mariah Thakkar MD Primary Care Provider Reason for Visit Reason Comments New Medication Encounter Details Date Type Department Care Team Description 09/21/2019 Case Management [facility] Pediatric Mohan Thakkar, New Medication and Adult Primary Care- MD De La Fuente [address] [place] [address] [address] [place] [place] [address], [address] [address] [place] [address] [phone] Allergies No Known Allergiesdocumented as of this [...] Healthcare Agent Relationship Co mmunication Nicki Rose [facility] Health Care Agent
--- OUTSIDE RECORDS SUMMARY | 2019-11-25 23:16 | XMS REPORT | Summary of Care ---
:1985 Author Organization [facility] Address [address] [place] [address] Care Team Providers Name Role Phone Shruthi Nuñez Insurance Hmo Mariah Thakkar MD Primary Care Provider Reason for Visit Auth/Cert Status Reason Specialty Diagnoses / Procedures Referred By Shruthi ontact Referred To Contact Phlebotomy Procedures Adc Pob Lab Draw [facility] Professional O ffice Building [address] [place] [address] , [address] [place] [address] Phone: Fax: Encounter Details Date Type Department Care Team Description 09/21/2019 Hospital Encounter [facility] Christina Thakkar Arrived [facility] [address] [facility] [address] [place] [address] [place], [place] [phone] Allergies No Known Allergiesdocumented as of [...] on patient's age to complete this to [facility] documented as of this encounter Procedures Procedure [...] possible radiculopathy was recommend ed by her Flakeboard Line Tender. TECHNIQUE: Frontal, oblique and lateral views of [...] possible radiculopathy was recommend ed by her Flakeboard Line Tender. TECHNIQUE: Frontal, oblique and lateral views of [...] Healthcare Agent Relationship Co mmunication Nicki Rose [facility] Health Care Agent
--- OUTSIDE RECORDS SUMMARY | 2019-11-25 23:16 | XMS REPORT | Summary of Care ---
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 [facility] Bolivar Thakkar MD [address] [place] [address] [place] [address] Anxiety; Professional Office Pob, Adc Lab Main Immunity status testing; [facility] Phlebotomy Infectio n due to 2019-nCoV Lab Professional Office Building [address] [facility] , [address] [place] [address] Allergies No Known Allergiesdocumented as [...] processed according to instructions and sent to [facility] laboratories per lab order on today: LT [...] on patient's age to complete this to [facility] documented as of this encounter Results Not on filedocumented in this encounter Visit Diagnoses Diagnosis Anxiety Anxiety state, unspecified Immunity status testing Antibody response examination Infection due to 2019-nCoV documented in this encounter Advance Directives Name Relationship Healthcare Agent Relationship Co mmunication Nicki Daniels Health Care Agent
--- OUTSIDE RECORDS SUMMARY | 2019-11-25 23:16 | XMS REPORT | Summary of Care ---
:1985 Author Organization [facility] Address [address] [place] [address] Care Team Providers Name Role Phone Joaquin Shruthi Insurance Hmo Mariah Thakkar MD Primary Care Provider Encounter Details Date Type Department Care Team Description 09/21/2019 Patient Secure [facility] Pediatric Falguni Thakkar, and Adult Primary Care- MD De La Fuente [address] [place] [address] [address] [place], [place] [address], [address] [address] [place] [address] [phone] Allergies No Known Allergiesdocumented as of this [...]
--- OUTSIDE RECORDS SUMMARY | 2019-11-25 23:17 | XMS REPORT | Summary of Care ---
:1985 Author Organization [facility] Address [address] [place] [address] Care Team Providers Name Role Phone JoaquinShruthi Insurance Hmo Mariah Thakkar MD Primary Care Provider Reason for Visit Reason Comments LAB WORK Auth/Cert Status Reason Specialty Diagnoses / Procedures Referred By Shruthi medinaact Referred To Contact Phlebotomy Procedures Adc Pob Lab Draw [facility] Professional O [address] , [address] [place] [address] Phone: Fax: Encounter Details Date Type Department Care Team Description 09/20/2019 Laboratory Only [facility] Kevan Beaulieu MD [address] [facility] [address] [place] [address] Infection due to Phlebotomy Only, Adc Test 2018-nCoV (Primary Lab-[place] Dx) [address] [place] [address] Allergies No Known Allergiesdocumented as [...]
--- OUTSIDE RECORDS SUMMARY | 2019-11-25 23:17 | XMS REPORT | Summary of Care ---
:1985 Author Organization [facility] Address [address] [place] [address] Care Team Providers Name Role Phone Shruthi Nuñez Insurance Hmo Mariah Thakkar MD Primary Care Provider Reason for Visit Auth/Cert Status Reason Specialty Diagnoses / Procedures Referred By Shruthi ontact Referred To Contact Phlebotomy Procedures Adc Pob Lab Draw [facility] Professional O ice [address] , [address] [place] [address] Phone: Fax: Encounter Details Date Type Department Care Team Description 09/21/2019 Hospital Encounter [facility] BijanRodrieleuterio pop Canceled (ERROR) [facility] MD Mariah [address] [facility] [address] [facility] [place] [phone] Allergies No Known Allergiesdocumented [...] possible radi culopathy was recommended by her Surg Tech. COMPARISON: None FINDINGS: The vertebral bodies are normal in heigh t and in normal alignment. No significant degenerative changes are present. Procedure Note [facility], Radiant Results Inft User - 2019 1:13 PM CDT XR SPINE THORACIC 4 VW HISTORY: Female 34 years 34yo F with [address] st pain and LUE discomfort of unknown cause, work-up for possible radi culopathy was recommended by her Surg Tech. COMPARISON: None FINDINGS: The vertebral bodies are [...] possible radiculopathy was recommend ed by her Surg Tech. TECHNIQUE: Frontal, oblique and lateral views of [...] possible radiculopathy was recommend ed by her Surg Tech. TECHNIQUE: Frontal, oblique and lateral views of [...]
--- OUTSIDE RECORDS SUMMARY | 2019-11-25 23:17 | XMS REPORT | Summary of Care ---
:1985 Author Organization [facility] Address [address] [place] [address] Care Team Providers Name Role Phone JoaquinShruthi Insurance Hmo Mariah Thakkar MD Primary Care Provider Reason for Referral (Routine) Status Reason Specialty Diagnoses / Referred By Referred To Procedures Contact Contact New Request Neurology Diagnoses Tingling of left upper extremity Left-sided chest pain Bijan Wondiful Procedures CONSULT/REFERRAL NEUROLOGY MD Mariah [address] [place] [address] Encounter Details Date Type Department Care Team Description 09/26/2019 Patient Secure [facility] Bijan Wondiful Tingling of left upper extremity (Primary Dx); Msg Pediatric and Adult MD Mariah Left-sided chest pain Primary Care- [address] [place], [place] [address] [address], [address] [place], [place] [phone] [address] (Fax) [phone] Allergies No Known Allergiesdocumented as of this [...]
[2019-11-25] MEDS ORDERED: KETOROLAC 30 MG/ML INJ ONE (23:41)
[2019-11-26 00:03] LABS: Absolute Lymphocytes (CBC) 6.1 K/uL (0.7-4.9); Basophils % 1.1 % (0-1.3); Hematocrit 42.3 % (36.0-45.0); Lymphocytes % 39.9 % (15.3-44.8); RBC Red Blood Cell Count 5.35 M/uL (3.86-4.86)
[2019-11-26 00:04] LABS: Protime INR 1.13
[2019-11-26] MEDS ORDERED: ACETAMINOPHEN 500 MG TAB ONE (00:05)
[2019-11-26 00:16] LABS: ALT/SGPT 19 U/L (12-78); AST/SGOT 14 U/L (15-37); Albumin 3.2 g/dL (3.4-5.0); Alkaline Phosphatase 66 U/L (45-117); BUN Blood Urea Nitrogen 17 mg/dL (7-18); Bicarbonate 26 mmol/L (21-32); Bilirubin Direct < 0.1 mg/dL (0-0.2); Bilirubin Total 0.3 mg/dL (0.2-1.0); Glucose Level 122 mg/dL (74-106); Magnesium 1.9 mg/dL (1.8-2.4); NT PRO-BNP 6 pg/mL (<125); Potassium 3.5 mmol/L (3.5-5.1); Protein, Total 8.3 g/dL (6.4-8.2); Sodium Level 141 mmol/L (136-145); Troponin (Emerg Dept Use Only) < 0.02 ng/mL (0.0-0.045)
--- NOTE | 2019-11-26 00:28 | ER ---
Nurse's Notes [facility] Name: Goyo Solorio Age: 34 yrs Sex: Female : 1985 Arrival Date: 11/25/2019 Time: 23:13 Bed 19 Private MD: Gissel Soto Diagnosis: Anxiety disorder, unspecified;Other chest pain Presentation: 11/24 23:20 Chief complaint: Patient states: Patient crying, states chest pressure for the last 30 lp1 minutes with some nausea; Denies any radiation; patient noted to be anxious at this time. 23:20 Initial Sepsis Screen: Does the patient meet any 2 criteria? No. Patient's initial lp1 sepsis screen is negative. Does the patient have a suspected source of infection? No. Patient's initial sepsis screen is negative. 23:20 Method Of Arrival: Ambulatory lp1 23:44 Coronavirus screen: Client denies travel out of the [place] in the last 14 days. At this lp1 time, the client does not indicate any symptoms associated with coronavirus-19. Ebola Screen: No symptoms or risks identified at this time. Risk Assessment: Do you want to hurt yourself or someone else? Patient reports no desire to harm self or others. Onset of symptoms was November 25, 2019 at 23:00. 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 - Social history:: Smoking status: Patient reports the use of cigarette tobacco products, denies chronic smoking, but will smoke occasionally. Screenin:44 Abuse screen: Denies threats or abuse. Denies injuries from another. Nutritional lp1 screening: No deficits noted. Tuberculosis screening: No symptoms or risk factors identified. Fall Risk None identified. Assessment: 23:20 General: Appears uncomfortable, Behavior is anxious, crying. Pain: Complains of pain in lp1 chest Pain does not radiate. Pain currently is 7 out of 10 on a pain scale. Quality of pain is described as pressure. Neuro: Level of Consciousness is awake, alert, obeys commands, Oriented to person, place, time, situation, Reports headache. Cardiovascular: Patient's skin is warm and dry. Respiratory: Respiratory effort is even, Respiratory pattern is hyperventilation Breath sounds are clear bilaterally. GI: Abdomen is non-distended, Reports nausea. : No signs and/or symptoms were reported regarding the genitourinary system. EENT: No signs and/or symptoms were reported regarding the EENT system. Derm: Skin is pink, warm \\T\\ dry. Musculoskeletal: No deficits noted. 23:42 Reassessment: Patient upset, crying, states family issues at home, she is under a lot lp1 of stress due to significant other and living arrangements; reports appt with Dr. Soto tomorrow for control of anxiety; Patient refused Toradol order, states "I am starting to feel a little better, can I just have some Tylenol for my headache?"; provider notified. 11/25 00:29 Reassessment: Patient appears in no apparent distress at this time. Patient resting, lp1 eyes closed, respirations even, unlabored. Vital Signs: 11/24 23:20 BP 114 / 86; Pulse 102; Resp 19; Temp 98.6(O); Pulse Ox 100% on R/A; Weight 81.65 kg lp1 (R); Height 5 ft. 1 in. (154.94 cm); Pain 7/10; 23:55 BP 114 / 86; Pulse 95; Resp 20; Pulse Ox 98% on R/A; lp1 11/25 00:39 BP 113 / 78; Pulse 84; Resp 20; Pulse Ox 97% on R/A; lp1 11/24 23:20 Body Mass Index 34.01 (81.65 kg, 154.94 cm) lp1 ED Course: 11/24 23:13 Patient arrived in ED. as 23:14 Gissel Soto MD is Private Physician. as 23:19 Maximo Schaeffer MD is Attending Physician. tw4 23:20 Arm band placed on. lp1 23:20 Patient has correct armband on for positive identification. Placed in gown. Bed in low lp1 position. Call light in reach. surveillance monitor on. Pulse ox on. NIBP on. 23:30 Inserted saline lock: 22 gauge in right forearm, using aseptic technique. Blood lp1 collected. 23:40 Dee Jane, RN is Primary Nurse. lp1 23:45 Triage completed. lp1 23:48 XRAY Chest (1 view) In Process Unspecified. EDMS 11/25 00:27 Gissel Soto MD is Referral Physician. tw4 00:29 No provider procedures requiring assistance completed. lp1 00:40 IV discontinued, No redness/swelling at site. Pressure dressing applied. lp1 Administered Medications: 11/24 23:45 Not Given (Patient Refused): TORadol 30 mg IVP once lp1 23:55 Drug: Tylenol 1000 mg {Note: verbal order from provider.} Route: PO; lp1 11/25 00:40 Follow up: Response: No adverse reaction; Marked relief of symptoms lp1 Outcome: 00:28 Discharge ordered by . tw4 00:40 Discharged to home ambulatory. lp1 00:40 Condition: good 00:40 Discharge instructions given to patient, Instructed on discharge instructions, follow up and referral plans. medication usage, Demonstrated understanding of instructions, follow-up care, medications, Prescriptions given X 1. 00:40 Patient left the ED. lp1 Signatures: Dispatcher [employer] EDMS Dayan Mack as Dee Jane, JAVIER RN lp1 Maximo Schaeffer MD MD tw4
--- NOTE | 2019-11-26 00:29 | EDPHYS ---
Physician Documentation [facility] Name: Goyo Solorio Age: 34 yrs Sex: Female : 1985 Arrival Date: 11/25/2019 Time: 23:13 Bed 19 Private MD: Gissel Soto ED Physician Maximo Schaeffer HPI: 11/25 00:22 This 34 yrs old Female presents to ER via Ambulatory with complaints of Chest tw4 Pressure. 00:22 The patient or guardian reports chest pain that is located primarily in the anterior tw4 chest wall. The pain does not radiate. Associated signs and symptoms: The patient has no apparent associated signs or symptoms. The chest pain is described as a pressure. Duration: The patient or guardian reports a single episode. Modifying factors: The symptoms are alleviated by nothing. the symptoms are aggravated by nothing. The patient has not experienced similar symptoms in the past. 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 - Social history:: Smoking status: Patient reports the use of cigarette tobacco products, denies chronic smoking, but will smoke occasionally. ROS: 11/25 00:22 Constitutional: Negative for fever, chills, and weight loss, Eyes: Negative for injury, tw4 pain, redness, and discharge, Respiratory: Negative for shortness of breath, cough, wheezing, and pleuritic chest pain, Abdomen/GI: Negative for abdominal pain, nausea, vomiting, diarrhea, and constipation, Back: Negative for injury and pain, MS/Extremity: Negative for injury and deformity, Skin: Negative for injury, rash, and discoloration, Neuro: Negative for headache, weakness, numbness, tingling, and seizure. Cardiovascular: Positive for chest pain, Negative for edema, orthopnea, palpitations, paroxysmal nocturnal dyspnea. Psych: Positive for anxiety, Negative for depression, drug dependence, alcohol dependence, auditory hallucinations, visual hallucinations, homicidal ideation, insomnia, suicide gesture. Exam: 00:22 Constitutional: This is a well developed, well nourished patient who is awake, alert, tw4 and in no acute distress. Head/Face: Normocephalic, atraumatic. Chest/axilla: Normal chest wall appearance and motion. Nontender with no deformity. No lesions are appreciated. Cardiovascular: Regular rate and rhythm with a normal S1 and S2. No gallops, murmurs, or rubs. Normal PMI, no JVD. No pulse deficits. Respiratory: Lungs have equal breath sounds bilaterally, clear to auscultation and percussion. No rales, rhonchi or wheezes noted. No increased work of breathing, no retractions or nasal flaring. Abdomen/GI: Soft, non-tender, with normal bowel sounds. No distension or tympany. No guarding or rebound. No evidence of tenderness throughout. Back: No spinal tenderness. No costovertebral tenderness. Full range of motion. MS/ Extremity: Pulses equal, no cyanosis. Neurovascular intact. Full, normal range of motion. Neuro: Awake and alert, GCS 15, oriented to person, place, time, and situation. Cranial nerves II-XII grossly intact. Motor strength 5/5 in all extremities. Sensory grossly intact. Cerebellar exam normal. Normal gait. Vital Signs: 11/24 23:20 BP 114 / 86; Pulse 102; Resp 19; Temp 98.6(O); Pulse Ox 100% on R/A; Weight 81.65 kg lp1 (R); Height 5 ft. 1 in. (154.94 cm); Pain 7/10; 23:55 BP 114 / 86; Pulse 95; Resp 20; Pulse Ox 98% on R/A; lp1 11/25 00:39 BP 113 / 78; Pulse 84; Resp 20; Pulse Ox 97% on R/A; lp1 11/24 23:20 Body Mass Index 34.01 (81.65 kg, 154.94 cm) lp1 MDM: 11/24 23:19 Patient medically screened. tw4 11/25 00:25 Differential diagnosis: pulmonary embolus, thoracic aortic disection. Data reviewed: tw4 vital signs, nurses notes. Data reviewed: lab test result(s), cardiac enzymes, CBC, hepatic panel, EKG. Data interpreted: Pulse oximetry: Interpretation: normal. Counseling: I had a detailed discussion with the patient and/or guardian regarding: the historical points, exam findings, and any diagnostic results supporting the discharge/admit diagnosis, radiology results. Medication response: Response to treatment: and as a result, I will discharge patient. Special discussion: Based on the patient's history, exam, and Dx evaluation, there is no indication for emergent intervention or inpatient Tx. It is understood by the patient/guardian that if the Sx's persist or worsen they need to return immediately for re-evaluation. I discussed with the patient/guardian in detail that at this point there is no indication for admission to the hospital. It is understood, however, that if the symptoms persist or worsen the patient needs to return immediately for re-evaluation. 11/24 22:19 Order name: Basic Metabolic Panel tw4 11/24 22: Order name: CBC with Diff tw4 11/24 22:19 Order name: LFT's tw4 11/24 22:19 Order name: Magnesium tw4 11/24 22:19 Order name: NT PRO-BNP tw4 11/24 22:19 Order name: PT-INR; Complete Time: 00:20 tw4 11/25 00:21 Interpretation: Normal except: PT 13.3. tw4 11/24 23:19 Order name: Troponin (emerg Dept Use Only); Complete Time: 00:20 tw4 11/25 00:21 Interpretation: Within normal limits: TROPED < 0.02. tw4 11/24 23:19 Order name: XRAY Chest (1 view) tw4 11/24 23:20 Order name: Basic Metabolic Panel; Complete Time: 00:20 EDMS 11/24 23:20 Order name: CBC with Automated Diff; Complete Time: 00:20 EDMS 11/25 00:21 Interpretation: Normal except: WBC 15.2; RBC 5.35; MCV 79.1; MCH 25.7. tw4 11/24 23:20 Order name: Liver (Hepatic) Function; Complete Time: 00:20 EDMS 11/25 00:21 Interpretation: Normal except: A/G 0.6; GLOB 5.1; ALB 3.2; TP 8.3; AST 14. tw4 11/24 23:20 Order name: Magnesium; Complete Time: 00:20 EDMS 11/25 00:21 Interpretation: Within normal limits: MG 1.9. tw4 11/24 23:20 Order name: NT PRO-BNP; Complete Time: 00:20 EDLA 11/25 00:21 Interpretation: Within normal limits: NT PRO-BNP 6. tw4 11/24 23:19 Order name: EKG; Complete Time: 23:21 tw4 11/24 23:19 Order name: Cardiac monitoring; Complete Time: 23:45 tw4 11/24 23:19 Order name: EKG - Nurse/Tech; Complete Time: 23:45 tw4 11/24 23:20 Order name: IV Saline Lock; Complete Time: 23:45 tw4 11/24 23:20 Order name: Labs collected and sent; Complete Time: 23:45 tw4 11/24 23:20 Order name: O2 Per Protocol; Complete Time: 23:45 tw4 11/24 23:20 Order name: O2 Sat Monitoring; Complete Time: :45 tw4 EC:22 Rate is 107 beats/min. Rhythm is regular. QRS [place] is Normal. AL interval is normal. tw4 QRS interval is normal. QT interval is normal. No Q waves. T waves are Normal. No ST changes noted. Clinical impression: Sinus tachycardia. Interpreted by me. Reviewed by me. Administered Medications: 11/24 23:45 Not Given (Patient Refused): TORadol 30 mg IVP once lp1 23:55 Drug: Tylenol 1000 mg {Note: verbal order from provider.} Route: PO; lp1 11/25 00:40 Follow up: Response: No adverse reaction; Marked relief of symptoms lp1 Disposition: 11/26/19 00:28 Discharged to Home. Impression: Anxiety disorder, unspecified, Other chest pain. - Condition is Stable. - Discharge Instructions: Nonspecific Chest Pain, Chest Wall Pain, Panic Attacks, Wmlg-lc-Dred, Generalized Anxiety Disorder. - Prescriptions for Ibuprofen 800 mg Oral Tablet - take 1 tablet by ORAL route every 12 hours As needed take with food; 20 tablet. - Medication Reconciliation Form, Thank You Letter, Antibiotic Education, Prescription Opioid Use form. - Follow up: Gissel Soto MD; When: Upon discharge from the Emergency Department; Reason: Recheck today's complaints, Continuance of care, Re-evaluation by your physician. - Problem is new. - Symptoms have improved. Signatures: Dispatcher [employer] EDLA Dee Jane RN RN lp1 Maximo Schaeffer MD MD tw4 Corrections: (The following items were deleted from the chart) 00:40 00:28 11/26/2019 00:28 Discharged to Home. Impression: Anxiety disorder, unspecified; lp1 Other chest pain. Condition is Stable. Forms are Medication Reconciliation Form, Thank You Letter, Antibiotic Education, Prescription Opioid Use. Follow up: Gissel Soto; When: Upon discharge from the Emergency Department; Reason: Recheck today's complaints, Continuance of care, Re-evaluation by your physician. Problem is new. Symptoms have improved. tw4
[2019-11-26 01:20] VITALS: TEMP 98.6
[2019-11-26 01:23] VITALS: BP 113/78; O2SAT 97
--- NOTE | 2019-11-26 07:12 | RAD REPORT ---
EXAM DESCRIPTION: Sima Single View11/25/2019 11:48 pm CLINICAL HISTORY: Chest pain COMPARISON: September 2019 FINDINGS: The lungs appear clear of acute infiltrate. The heart is normal size IMPRESSION: No acute abnormalities displayed
== END 2019-11-26 00:40 | disposition home or self-care (01) ==
LOC: ER 23:11
DX: F41.9 Anxiety disorder, unspecified (principal); R07.89 Other chest pain; F17.210 Nicotine dependence, cigarettes, uncomplicated
CPT/HCPCS: 36415; 71045; 80048; 80076; 83735; 83880; 84484; 85025; 85610; 93005; 99284

== ENCOUNTER 2019-12-26 19:52 | Emergency (ER) | payer OTHER ==
--- OUTSIDE RECORDS SUMMARY | 2019-12-26 19:54 | XMS REPORT | Continuity of Care Document ---
:1985 Author Organization [facility] t Address [address] [place] [address] [place] [address] Care Team Providers Name Role Phone Mariah [...] Allergie 7-15 Clear s 00:00: Hough 00 [facility] No Known DA Active U 2012-02 [facility] Allergie 0-06 Clear s 00:00: Hough 00 [facility] Medications This patient has no known medications. Procedures This patient has no known procedures. Encounters Start End Encounter Admission Attending Care Care Encounter Source Date/Time Date/Time Type Type Clinicians Facility Department ID 2019-09-26 2019-09-26 Patient BijanMADAN [id number] 00:00:00 00:00:00 [facility] Yoseph De La Fuente 350.1.13.10 [place] 4.2.7.2.686 Skip [phone] [address] 2019-09-21 2019-09-21 Hospital Bijan [facility] [id number] 11:10:44 23:59:00 Encounter Wondiful A [place] 350.1.13.10 [place] 4.2.7.2.686 [place] [id number] 2019-09-21 2019-09-21 [facility] Bijan [facility] [id number] 11:00:00 11:09:00 Encounter Wondiful A [place] 350.1.13.10 [place] 4.2.7.2.686 [place] [id number] 2019-09-21 2019-09-21 [facility] [id number] 09:56:26 10:59:00 Encounter Wondiful A [place] 350.1.13.10 [place] 4.2.7.2.686 [place] [id number] 807 2019-09-21 2019-09-21 Case Bijan [facility] [id number] 00:00:00 00:00:00 Management Wondiful A [place] 350.1.13.10 [place] 4.2.7.2.686 [place] [phone] [address] 2019-09-21 2019-09-21 Patient Bijan [facility] 1.2.840.114 [id number] 00:00:00 00:00:00 Secure Msg Wondiful A [place] 350.1.13.10 [place] 4.2.7.2.686 [place] [phone] [address] 2019-09-20 2019-09-20 Laboratory Only[facility] 1.2.840.114 [id number] 10:01:43 10:16:43 Only Test [place] 350.1.13.10 [place] 4.2.7.2.686 [place] [id number] 353 2019-09-20 2019-09-20 Carpet Installation Specialist Naomi, [facility] 1.2.840.114 [id number] 09:55:41 10:10:41 Visit Lab Main [place] 350.1.13.10 [place] 4.2.7.2.686 [place] [phone] [facility] 353 [facility] 2019-09-20 2019-09-20 Orders Doctor KEARA 1.2.840.114 [id number] 00:00:00 00:00:00 Only Unassigned, CASI 350.1.13.10 [facility] [id number] 009 2019-09-19 2019-09-19 Telemedici [facility] 1.2.840.114 [id number] 13:45:12 15:57:17 ne Visit Yoseph De [place] 350.1.13.10 [place] 4.2.7.2.686 [place] [phone] [facility] 044 [facility] 2019-09-19 2019-09-19 Telephone Bijan [facility] 1.2.840.114 [id number] 00:00:00 00:00:00 Wondiful A [employer] 350.1.13.10 [place] 4.2.7.2.686 [place] [phone] [place] [address] Office [address] One Results Test Description Test [...] 65 IUnit/L 20-125 N code = ALKP) [id number] 10:12:00 Test Item Value Reference Range Interpretation [...] may jett y by method. COMPREHENSIVE METABOLIC [id number] 10:11:00 Test Item Value Reference Range Interpretation [...] TOTAL (test IUnit/L 20-125 code = ALKP) [id number] 10:11:00 Test Item Value Reference Range Interpretation [...] results may jett y by method. PROTHROMBIN [id number] 09:59:00 Test Item Value Reference Range Interpretation Comments PROTHROMBIN TIME 14.4 SECONDS 9.3-12.9 H PATIENT (test code = PTP) INTERNATIONAL NORMAL 1.3 0.8-1.2 H TARGET RATIO (test code = INR BY IN DICATION INR) Indication INR1. Prophyl axis of venous thrombos is 2.0 - 3. 0 (orthopedic eagle génesis), Prophylaxis of venous thrombos is (other than hig h-risk surgery), Denaa tment of Deep Vein Thrombosis/Pulm onary Embolism, [...] Infarction (t o prevent recurre nt infarct). [id number] 09:59:00 Test Item Value Reference Range Interpretation [...] TESTS AND APPROPRIATECLIN ICAL EUALUATIONS. CBC W/AUTO [id number] 09:56:00 Test Item Value Reference Range Interpretation [...] code = MDIFF) - XR CHEST 1 [id number] 09:56:00 FAX: Dallas Cain MD [phone] [place]: St: PRE Name: RAGHAVENDRA QUINN [facility] : 1985 Age/S: 34/F [address] [place] [address] Unit#: [id number] Loc: [place] [address] Phys: Dallas Cain MD Acct: [id number] Dis Date: Status: PRE ER PHONE #: [phone] Exam Date: 08/22/2019 1003 FAX #: [phone] Reason: Chest Pain EXAMS: CPT CODE: [id number] XR CHEST 1 V 03152 PROCEDURE: CHEST SINGLE VIEW INDICATION: Chest Pain COMPARISON: There are no previous relevant studies available for correlation. FINDINGS: The lungs are clear. No pleural abnormality. The cardiomediastinalsilhouette is normal for projection. The bony thorax is intact. IMPRESSION: Normal radiograph. SL: [id number] at 0956 Reported and signed by: Samson Sousa M.D. CC: Dallas Cain MD Technologist: Lilly Agarwal RT(R) Trnscrd Date/Time/By: 08/22/2019 (0956) : By: Krissy Orig Print D/T: S: 08/22/2019 (1003) PAGE 1 Signed Report
--- OUTSIDE RECORDS SUMMARY | 2019-12-26 19:55 | XMS REPORT | Summary of Care ---
:1985 Author Organization [facility] Address [address] [place] [address] Care Team Providers Name Role Phone JoaquinShruthi Insurance Hmo Mariah Thakkar MD Primary Care Provider Reason for Visit Reason Comments LAB WORK Auth/Cert Status Reason Specialty Diagnoses / Procedures Referred By Shruthi medinaact Referred To Contact Phlebotomy Procedures Adc Pob Lab Draw [facility] Professional O [address] , [address] [place] [address] Phone: Fax: Encounter Details Date Type Department Care Team Description 09/20/2019 Laboratory Only [facility] Kevan Beaulieu MD [address] [facility] [address] [place] [address] Infection due to Phlebotomy Only, Adc Test 2018-nCoV (Primary [facility] Dx) [address] [place] [address] Allergies No Known Allergiesdocumented as [...]
--- NOTE | 2019-12-26 21:08 | ER ---
Nurse's Notes [facility] Name: Goyo Solorio Age: 34 yrs Sex: Female : 1985 Arrival Date: 12/26/2019 Time: 19:54 Bed External Waiting Private MD: Diagnosis: Presentation: 12/25 19:59 Chief complaint: Patient states: sore throat, chest pressure with deep breathing sv started yesterday. Coronavirus screen: Client denies travel out of the [place] in the last 14 days. At this time, the client does not indicate any symptoms associated with coronavirus-19. Ebola Screen: No symptoms or risks identified at this time. Risk Assessment: Do you want to hurt yourself or someone else? Patient reports no desire to harm self or others. Onset of symptoms was December 26, 2019. 19:59 Method Of Arrival: Ambulatory sv 19:59 Acuity: EUGENIO 3 sv 20:01 Initial Sepsis Screen: Does the patient meet any 2 criteria? No. Patient's initial sv sepsis screen is negative. Does the patient have a suspected source of infection? No. Patient's initial sepsis screen is negative. Triage Assessment: 20:00 General: Appears in no apparent distress. comfortable, Behavior is calm, cooperative, sv appropriate for age. Pain: Complains of pain in chest. EENT: Reports pain when swallowing. Neuro: Level of Consciousness is awake, alert, obeys commands, Oriented to person, place, time, situation, Gait is steady. Respiratory: Reports shortness of breath Respiratory effort is even, unlabored, Respiratory pattern is regular, symmetrical. Historical: - Allergies: 20:00 No Known Allergies; sv - PMHx: 20:00 Anxiety; sv - PSHx: 20:00 Appendectomy; sv - Immunization history:: Flu vaccine is not up to date. - Social history:: Smoking status: Patient reports the use of cigarette tobacco products, denies chronic smoking, but will smoke occasionally. Vital Signs: 20:01 BP 110 / 78; Pulse 76; Resp 18; Temp 97.5; Pulse Ox 98% ; Weight 81.65 kg; Height 5 ft. sv 5 in. (165.10 cm); 20:01 Body Mass Index 29.95 (81.65 kg, 165.10 cm) sv ED Course: 19:54 Patient arrived in ED. cl3 19:59 Arm band placed on. sv 20:00 Triage completed. sv 20:56 Mike Morris PA is PHCP. cp 20:56 Jacky Woodard MD is Attending Physician. cp 20:57 Patient's name was called from ER lobby. No response. sv Administered Medications: No medications were administered Outcome: 21:08 Patient left the ED. sg Signatures: Maya Mancilla RN RN Jason Daniel RN RN Mike Morris PA PA cp Lewis, Charde cl3 Corrections: (The following items were deleted from the chart) 20:02 20:01 Resp 18bpm; Pulse Ox 98%; Temp 97.5F; 81.65 kg; Height 5 ft. 5 in.; BMI: 29.9; [facility]
[2019-12-27 07:16] VITALS: BP 110/78; TEMP 97.5; O2SAT 98
== END 2019-12-26 21:08 | disposition left against medical advice (07) ==
LOC: ER 19:52
DX: Z53.21 Procedure and treatment not carried out due to patient leaving prior to being seen by health care provider (principal)
CPT/HCPCS: 99281

== ENCOUNTER 2019-12-26 21:25 | Emergency (ER) | payer OTHER ==
--- OUTSIDE RECORDS SUMMARY | 2019-12-26 21:27 | XMS REPORT | Continuity of Care Document ---
:1985 Author Organization [facility] t Address [address] [place] [address] Care Team Providers Name Role Phone Mariah [...] Clear s 00:00: Hough 00 [facility] No Known DA Active U 2012-02 [facility] Allergie 0-06 Clear s 00:00: Hough 00 [facility] Medications This patient has no known medications. Procedures This patient has no known procedures. Encounters Start End Encounter Admission Attending Care Care Encounter Source Date/Time Date/Time Type Type Clinicians Facility Department ID 2019-09-26 2019-09-26 Patient RG Thakkar 1.2.840.114 [id number] 00:00:00 00:00:00 Secure Msg Yoseph De La Fuente 350.1.13.10 [place] 4.2.7.2.686 Skip [phone] [address] 2019-09-21 2019-09-21 Hospital Bijan [facility] [id number] 11:10:44 23:59:00 Encounter Wondiful A [place] 350.1.13.10 [place] 4.2.7.2.686 [place] [id number] 2019-09-21 2019-09-21 [facility] [id number] 11:00:00 11:09:00 Encounter Wondiful A [place] 350.1.13.10 [place] 4.2.7.2.686 [place] [id number] 2019-09-21 2019-09-21 [facility] [id number] 09:56:26 10:59:00 Encounter Wondiful A [place] 350.1.13.10 [place] 4.2.7.2.686 [place] [id number] 2019-09-21 2019-09-21 [facility] 1.2.840.114 [id number] 00:00:00 00:00:00 Management Wondiful A [place] 350.1.13.10 [place] 4.2.7.2.686 [place] [phone] n[address] [place] [address] 2019-09-21 2019-09-21 Patient Bijan [facility] 1.2.840.114 [id number] 00:00:00 00:00:00 Secure Msg Wondiful A [place] 350.1.13.10 [place] 4.2.7.2.686 [place] [phone] [address] 2019-09-20 2019-09-20 Laboratory Only, [facility] 1.2.840.114 [id number] 10:01:43 10:16:43 Only Test [place] 350.1.13.10 [place] 4.2.7.2.686 [place] [id number] 2019-09-20 2019-09-20 Cleater Naomi, [facility] 1.2.840.114 [id number] 09:55:41 10:10:41 Visit Lab Main [place] 350.1.13.10 [place] 4.2.7.2.686 [place] [phone] [address] 2019-09-20 2019-09-20 Orders Doctor KEARA 1.2.840.114 [id number] 00:00:00 00:00:00 Only Unassigned, CASI 350.1.13.10 [facility] 4.2.7.2.686 [id number] [id number] 2019-09-19 2019-09-19 Telemedici Bijan [facility] 1.2.840.114 [id number] 13:45:12 15:57:17 ne Visit Yoseph De [place] 350.1.13.10 [place] 4.2.7.2.686 [place] [phone] [facility] 044 [facility] 2019-09-19 2019-09-19 Telephone Bijan [facility] 1.2.840.114 [id number] 00:00:00 00:00:00 Wondiful A [employer] 350.1.13.10 [place] 4.2.7.2.686 [place] [phone] nal 0[address] One Results Test [...] 65 IUnit/L 20-125 N code = ALKP) [id number] 10:12:00 Test Item Value Reference Range Interpretation [...] may jett y by method. COMPREHENSIVE METABOLIC [id number] 10:11:00 Test Item Value Reference Range Interpretation [...] TOTAL (test IUnit/L 20-125 code = ALKP) [id number] 10:11:00 Test Item Value Reference Range Interpretation [...] results may jett y by method. PROTHROMBIN [id number] 09:59:00 Test Item Value Reference Range Interpretation [...] Infarction (t o prevent recurre nt infarct). [id number] 09:59:00 Test Item Value Reference Range Interpretation [...] TESTS AND APPROPRIATECLIN ICAL EUALUATIONS. CBC W/AUTO [id number] 09:56:00 Test Item Value Reference Range Interpretation [...] code = MDIFF) - XR CHEST 1 [id number] 09:56:00 FAX: Dallas Cain MD [phone] [place]: St: PRE Name: RAGHAVENDRA QUINN [facility] : 1985 Age/S: 34/F [address] [place] [address] Unit#: [id number] Loc: [place] [address] Phys: Dallas Cain MD Acct: [id number] Dis Date: Status: PRE ER PHONE #: [phone] Exam Date: 08/22/2019 100 FAX #: [phone] Reason: Chest Pain EXAMS: CPT CODE: [id number] XR CHEST 1 V 96388 PROCEDURE: CHEST SINGLE VIEW INDICATION: Chest Pain COMPARISON: There are no previous relevant studies available for correlation. FINDINGS: The lungs are clear. No pleural abnormality. The cardiomediastinalsilhouette is normal for projection. The bony thorax is intact. IMPRESSION: Normal radiograph. SL: [id number] at 0956 Reported and signed by: Samson Sousa M.D. CC: Dallas Cain MD Technologist: Lilly Agarwal RT(R) Trnscrd Date/Time/By: 08/22/2019 (0956) : By: Krissy Orig Print D/T: S: 08/22/2019 (1004) PAGE 1 Signed Report
--- NOTE | 2019-12-26 23:53 | EDPHYS ---
Physician Documentation [facility] Name: Goyo Solorio Age: 34 yrs Sex: Female : 1985 Arrival Date: 12/26/2019 Time: 21:26 Bed 25 Private MD: ED Physician Jacky Woodard HPI: 12/25 21:55 This 34 yrs old Female presents to ER via Ambulatory with complaints of Sore cp Throat, Chest Tightness. 21:55 The patient presents with sore throat. The patient describes throat pain as scratchy. cp 21:55 Onset: The symptoms/episode began/occurred yesterday. cp 21:55 Severity of symptoms: in the emergency department the symptoms are unchanged, despite cp home interventions. Associated signs and symptoms: Pertinent positives: chest tightness with deep breathing, Pertinent negatives cough, diarrhea, dysphagia, earache, fever, headache, vomiting, body aches. Patient denies direct exposure to any person who tested positive for COVID-19, but reports she was out locally this weekend and at times did not wear a mask. Patient reports history of anxiety and concerned symptoms may be from her anxiety but also concerned about being exposed to COVID-19. Historical: - Allergies: 21:38 No Known Drug Allergies; sv - PMHx: 21:38 Anxiety; sv - PSHx: 21:38 Appendectomy; sv - Immunization history:: Adult Immunizations up to date. - Social history:: Smoking status: Patient denies any tobacco usage or history of. ROS: 22:00 Constitutional: Negative for body aches, chills, fever, poor PO intake. cp 22:00 Eyes: Negative for injury, pain, redness, and discharge. cp 22:00 ENT: Positive for sore throat, Negative for drainage from ear(s), ear pain, difficulty swallowing, difficulty handling secretions. 22:00 Cardiovascular: Positive for chest tightness, Negative for edema, palpitations. 22:00 Respiratory: Negative for cough, shortness of breath, wheezing. 22:00 Abdomen/GI: Negative for abdominal pain, nausea, vomiting, and diarrhea. 22:00 Back: Negative for pain at rest, pain with movement. 22:00 : Negative for urinary symptoms. 22:00 Skin: Negative for rash. 22:00 Neuro: Negative for altered mental status, dizziness, headache, syncope, weakness. 22:00 All other systems are negative. Exam: 22:10 Constitutional: The patient appears in no acute distress, alert, awake, cp non-diaphoretic, non-toxic, well developed, well nourished. 22:10 Head/Face: Normocephalic, atraumatic. cp 22:10 Eyes: Periorbital structures: appear normal, Conjunctiva: normal, no exudate, no injection, Sclera: no appreciated abnormality, Lids and lashes: appear normal, bilaterally. 22:10 ENT: External ear(s): are unremarkable, Nose: is normal, Mouth: Lips: moist, Oral mucosa: pink and intact, moist, Posterior pharynx: Airway: no evidence of obstruction, patent, Tonsils: are normal in appearance, Uvula: midline, swelling, is not appreciated, erythema, is not appreciated. 22:10 Neck: ROM/movement: is normal, is supple, without pain, no range of motions limitations, Lymph nodes: no appreciated lymphadenopathy. 22:10 Chest/axilla: Inspection: normal, Palpation: is normal, no crepitus, no tenderness. 22:10 Cardiovascular: Rate: normal, Rhythm: regular, Edema: is not appreciated, JVD: is not appreciated. 22:10 Respiratory: the patient does not display signs of respiratory distress, Respirations: normal, no use of accessory muscles, no retractions, labored breathing, is not present, Breath sounds: decreased breath sounds, are not appreciated, stridor, is not appreciated, wheezing: is not appreciated. 22:10 Abdomen/GI: Inspection: abdomen appears normal, Palpation: abdomen is soft and non-tender, in all quadrants. 22:10 Back: pain, is absent, ROM is normal. 22:10 Neuro: Orientation: to person, place \T\ time. Mentation: is normal. 23:14 ECG was reviewed by the Attending Physician. cp Vital Signs: 21:36 BP 112 / 77; Pulse 88; Resp 16; Temp 98.1; Pulse Ox 98% ; sv 23:45 BP 108 / 87; Pulse 86; Resp 16; Pulse Ox 95% on R/A; jb4 MDM: 21:46 Patient medically screened. cp 23:28 Test interpretation: by ED physician or midlevel provider: ECG, chest xray negative for cp focal pneumonia. 23:52 Data reviewed: vital signs, nurses notes, lab test result(s), EKG, radiologic studies, cp plain films. 23:52 Counseling: I had a detailed discussion with the patient and/or guardian regarding: the cp historical points, exam findings, and any diagnostic results supporting the discharge/admit diagnosis, lab results, radiology results, to return to the emergency department if symptoms worsen or persist or if there are any questions or concerns that arise at home. ED course: VSS. Patient appears non-toxic and with no signs of respiratory distress. Will discharge to home for continued monitoring. 12/25 21:46 Order name: COVID-19 12/25 21:46 Order name: Influenza Screen (a \T\ B); Complete Time: 23:51 12/25 23:52 Interpretation: Reviewed. 12/25 21:46 Order name: Strep; Complete Time: 23:51 12/25 22:06 Order name: Urine Dipstick--Ancillary (enter results) 12/25 22:06 Order name: Urine --Ancillary (enter results) 12/25 23:40 Order name: Throat Culture [facility] 12/25 21:43 Order name: EKG; Complete Time: 21:44 12/25 21:43 Order name: EKG - Nurse/Tech; Complete Time: 23:35 12/25 21:46 Order name: XRAY Chest (1 view) 12/25 21:46 Order name: Urine Dipstick-Ancillary (obtain specimen); Complete Time: 22:05 12/25 21:46 Order name: Urine Test (obtain specimen); Complete Time: 22:05 cp EC:14 Rate is 82 beats/min. Rhythm is regular. OR interval is normal. QRS interval is normal. cp QT interval is normal. T waves are Inverted in lead aVR. Interpreted by me. Reviewed by me. Administered Medications: No medications were administered Disposition: 12/26 00:11 Co-signature as Attending Physician, Jacky Woodard MD. pkl Disposition: 12/26/19 23:53 Discharged to Home. Impression: Pain in throat and chest. - Condition is Stable. - Discharge Instructions: Pharyngitis, COVID-19. - Medication Reconciliation Form, Thank You Letter, Antibiotic Education, Prescription Opioid Use form. - Follow up: Private Physician; When: 1 - 2 days; Reason: Worsening of condition. - Problem is new. - Symptoms have improved. Signatures: Dispatcher [employer] Maya Houston, RN RN Jacky Shaikh MD MD pkl Page, Corey, PA PA cp Bryson, James, RN RN jb4 Corrections: (The following items were deleted from the chart) 00:09 12/25 23:53 12/26/2019 23:53 Discharged to Home. Impression: Pain in throat and chest. jb4 Condition is Stable. Forms are Medication Reconciliation Form, Thank You Letter, Antibiotic Education, Prescription Opioid Use. Follow up: Private Physician; When: 1 - 2 days; Reason: Worsening of condition. Problem is new. Symptoms have improved. cp
--- NOTE | 2019-12-26 23:53 | ER ---
Nurse's Notes [facility] Name: Goyo Solorio Age: 34 yrs Sex: Female : 1985 Arrival Date: 12/26/2019 Time: 21:26 Bed 25 Private MD: Diagnosis: Pain in throat and chest Presentation: 12/25 21:36 Chief complaint: Patient states: sore throat, chest tightness with deep breathing sv started yesterday. Coronavirus screen: Client denies travel out of the [place] in the last 14 days. At this time, the client does not indicate any symptoms associated with coronavirus-19. Coronavirus screen: sore throat. Ebola Screen: No symptoms or risks identified at this time. Initial Sepsis Screen: Does the patient meet any 2 criteria? No. Patient's initial sepsis screen is negative. Does the patient have a suspected source of infection? No. Patient's initial sepsis screen is negative. Risk Assessment: Do you want to hurt yourself or someone else? Patient reports no desire to harm self or others. Onset of symptoms was December 25, 2019. 21:36 Method Of Arrival: Ambulatory sv 21:36 Acuity: EUGENIO 4 sv Triage Assessment: 21:38 General: Appears in no apparent distress. comfortable, Behavior is calm, cooperative, sv appropriate for age. Pain: Complains of pain in chest. EENT: Reports pain when swallowing. Neuro: Level of Consciousness is awake, alert, obeys commands, Oriented to person, place, time, situation, Moves all extremities. Full function Gait is steady. Respiratory: Respiratory effort is even, unlabored, Respiratory pattern is regular, symmetrical. Historical: - Allergies: 21:38 No Known Drug Allergies; sv - PMHx: 21:38 Anxiety; sv - PSHx: 21:38 Appendectomy; sv - Immunization history:: Adult Immunizations up to date. - Social history:: Smoking status: Patient denies any tobacco usage or history of. Screenin:45 Abuse screen: Denies threats or abuse. Nutritional screening: No deficits noted. jb4 Tuberculosis screening: No symptoms or risk factors identified. Fall Risk None identified. Assessment: 21:45 General: Appears in no apparent distress. comfortable, Behavior is calm, cooperative, jb4 appropriate for age. Pain: Complains of pain in chest, throat Pain does not radiate. Pain currently is 5 out of 10 on a pain scale. Neuro: Level of Consciousness is awake, alert, obeys commands, Oriented to person, place, time, situation. Cardiovascular: Patient's skin is warm and dry. Respiratory: Airway is patent Respiratory effort is even, unlabored, Respiratory pattern is regular, symmetrical. GI: No signs and/or symptoms were reported involving the gastrointestinal system. : No signs and/or symptoms were reported regarding the genitourinary system. EENT: Throat is clear has enlarged tonsils on right with gag reflex present. Derm: Skin is intact, Skin is pink, warm \T\ dry. 23:00 Reassessment: Patient appears in no apparent distress at this time. Patient and/or jb4 family updated on plan of care and expected duration. Pain level reassessed. Patient is alert, oriented x 3, equal unlabored respirations, skin warm/dry/pink. 12/26 00:09 Reassessment: Patient appears in no apparent distress at this time. Patient and/or jb4 family updated on plan of care and expected duration. Pain level reassessed. Patient is alert, oriented x 3, equal unlabored respirations, skin warm/dry/pink. Vital Signs: 12/25 21:36 BP 112 / 77; Pulse 88; Resp 16; Temp 98.1; Pulse Ox 98% ; sv 23:45 BP 108 / 87; Pulse 86; Resp 16; Pulse Ox 95% on R/A; jb4 ED Course: 21:26 Patient arrived in ED. cl3 21:34 Mike Morris PA is PHCP. cp 21:34 Jacky Woodard MD is Attending Physician. cp 21:37 Triage completed. sv 21:38 Arm band placed on. sv 21:45 Patient has correct armband on for positive identification. Bed in low position. Call jb4 light in reach. Side rails up X 1. Pulse ox on. NIBP on. 21:50 Wilson Smith, JAVIER is Primary Nurse. jb4 22:05 Urine collected: clean catch specimen, clear. sg 22:32 XRAY Chest (1 view) In Process Unspecified. EDMS 12/26 00:09 No provider procedures requiring assistance completed. Patient did not have IV access jb4 during this emergency room visit. Administered Medications: No medications were administered Outcome: 12/25 23:53 Discharge ordered by MD. cp 11/19 00:09 Discharged to home ambulatory. jb4 Condition: stable Discharge instructions given to patient, Instructed on discharge instructions, follow up and referral plans. Demonstrated understanding of instructions, follow-up care. 00:09 Patient left the ED. jb4 Addendum: 12/28/2019 14:45 Addendum: COVID-19 Result: Negative result given to RN to notify pt. Attempted to s s contact pt regarding negative COVID-19 swab results. Left voice mail. Signatures: Dispatcher [employer] Maya Houston, RN Jason Madrigla RN RN sg Smirch, Shelby, RN RN ss Mike Morris, LEO PA Wilson Alonzo RN RN jbKellen Corona cl3
[2019-12-27 00:20] LABS: Urine Blood TRACE (NEG); Urine Glucose NEGATIVE (NEG); Urine Protein NEGATIVE (NEG); Urine Specific Gravity 1.025 (1.005-1.030); Urine pH 6.5 (5.0-7.0)
--- NOTE | 2019-12-27 06:03 | EKG ---
Test Date: 2019-12-26 Test Time: 23:09:09 Energy Broker: MAT MEASUREMENT RESULTS: Intervals: Rate: 82 WY: 156 QRSD: 84 QT: 370 QTc: 432 Tillman: P: 49 WY: 156 QRS: 66 T: 40 INTERPRETIVE STATEMENTS: Normal sinus rhythm Normal ECG Compared to ECG 11/25/2019 23:28:45 Sinus tachycardia no longer present Electronically Signed On 12-27-19 06:02:54 OINTMENT MILL TENDER by Javon Carranza
--- NOTE | 2019-12-27 08:10 | RAD REPORT ---
EXAM DESCRIPTION: RAD - Chest Single View - 12/26/2019 10:35 pm CLINICAL HISTORY: chest tightness COMPARISON: Portable November 24 TECHNIQUE: AP portable chest image was obtained 12/26/2019 10:35 pm . FINDINGS: Lungs are clear. Heart and vasculature are normal. No measurable pleural effusion and no p neumothorax. No acute bony abnormality seen. No acute aortic findings suspected. IMPRESSION: No acute cardiopulmonary process. No significant change from comparison study.
[2019-12-27 10:14] VITALS: TEMP 98.1
[2019-12-27 10:22] VITALS: BP 108/87; O2SAT 95
== END 2019-12-27 00:09 | disposition home or self-care (01) ==
LOC: ER 21:25
DX: R07.9 Chest pain, unspecified (principal); Z20.828 Contact with and (suspected) exposure to other viral communicable diseases
CPT/HCPCS: 93005; 87070; 81025; 87081; 81003; 87804 ×2; 71045; 99283; U0002

== ENCOUNTER 2020-02-01 13:48 | Emergency (ER) | payer OTHER ==
--- OUTSIDE RECORDS SUMMARY | 2020-02-01 13:51 | XMS REPORT | Continuity of Care Document ---
:1985 Author Organization [facility] t Address [address] [place] [address] [place] [address] Care Team Providers Name Role Phone Mariah [...] Allergie 7-15 Clear s 00:00: Hough 00 [facility] No Known DA Active U 2012-02 [facility] Allergie 0-06 Clear s 00:00: Hough 00 [facility] Medications This patient has no known medications. Procedures This patient has no known procedures. Encounters Start End Encounter Admission Attending Care Care Encounter Source Date/Time Date/Time Type Type Clinicians Facility Department ID 2019-09-26 2019-09-26 Patient BijanMADAN [id number] 00:00:00 00:00:00 Secure [facility] Yoseph [place] [id number] Loren[place] [id number] Skip [id number] [address] 2019-09-21 2019-09-21 Hospital Bijan [facility] [id number] 11:10:44 23:59:00 Encounter Wondiful A [place] [id number] [place] [id number] [place] [id number] 2019-09-21 2019-09-21 [facility] Bijan [facility] [id number] 11:00:00 11:09:00 Encounter Wondiful A [place] [id number] [place] [id number] [place] [id number] 2019-09-21 2019-09-21 [facility] [id number] 09:56:26 10:59:00 Encounter Wondiful A [place] [id number] [place] [id number] [place] [id number] 2019-09-21 2019-09-21 Case Bijan [facility] [id number] 00:00:00 00:00:00 Management Wondiful A [place] [id number] [place] [id number] Professio [id number] [address] 2019-09-21 2019-09-21 Patient Bijan [facility] [id number] 00:00:00 00:00:00 Secure Msg Wondiful A [place] [id number] [place] [id number] Professio [phone] [address] 2019-09-20 2019-09-20 Laboratory Only, [facility] [id number] 10:01:43 10:16:43 Only Test [place] [id number] [place] [id number] [place] [id number] 2019-09-20 2019-09-20 Industrial Chemist Naomi, [facility] [id number] 09:55:41 10:10:41 Visit Lab Main [place] [id number] [place] [id number] Professio [phone] [facility] 2019-09-20 2019-09-20 Orders Doctor KEARA [id number] 00:00:00 00:00:00 Only Unassigned, CASI 350.1.13.10 [facility] 4.2.7.2.686 [id number] 2019-09-19 2019-09-19 [facility] [id number] 13:45:12 15:57:17 ne Visit Yoseph De La [place]ente [id number] [place] [id number] Professio [phone] [facility] 2019-09-19 2019-09-19 Telephone Bijan [facility] [id number] 00:00:00 00:00:00 Wondiful A [facility] [id number] [place] [id number] Professio [phone] [place] [address] [address] One Results Test Description Test [...] 65 IUnit/L 20-125 N code = ALKP) [id number] 10:12:00 Test Item Value Reference Range Interpretation [...] may jett y by method. COMPREHENSIVE METABOLIC [id number] 10:11:00 Test Item Value Reference Range Interpretation [...] TOTAL (test IUnit/L 20-125 code = ALKP) [id number] 10:11:00 Test Item Value Reference Range Interpretation [...] results may jett y by method. PROTHROMBIN [id number] 09:59:00 Test Item Value Reference Range Interpretation [...] Infarction (t o prevent recurre nt infarct). [id number] 09:59:00 Test Item Value Reference Range Interpretation [...] TESTS AND APPROPRIATECLIN ICAL EUALUATIONS. CBC W/AUTO [id number] 09:56:00 Test Item Value Reference Range Interpretation [...] code = MDIFF) - XR CHEST 1 [id number] 09:56:00 FAX: Dallas Cain MD [phone] [place]: St: PRE Name: RAGHAVENDRA QUINN [facility] : 1985 Age/S: 34/F [address] [place] [address] Unit#: [id number] Loc: [place] [address] Phys: Dallas Cain MD Acct: [id number] Dis Date: Status: PRE ER PHONE #: [phone] Exam Date: 08/22/2019 1003 FAX #: [phone] Reason: Chest Pain EXAMS: CPT CODE: [id number] XR CHEST 1 V 41199 PROCEDURE: CHEST SINGLE VIEW INDICATION: Chest Pain COMPARISON: There are no previous relevant studies available for correlation. FINDINGS: The lungs are clear. No pleural abnormality. The cardiomediastinalsilhouette is normal for projection. The bony thorax is intact. IMPRESSION: Normal radiograph. SL: [id number] at 0956 Reported and signed by: Samson Sousa M.D. CC: Dallas Cain MD Technologist: Lilly Agarwal RT(R) Trnscrd Date/Time/By: 08/22/2019 (0956) : By: Krissy Orig Print D/T: S: 08/22/2019 (1003) PAGE 1 Signed Report
--- NOTE | 2020-02-01 17:40 | ER ---
Nurse's Notes [facility] Name: Goyo Solorio Age: 35 yrs Sex: Female : 1985 Arrival Date: 02/01/2020 Time: 13:50 Bed 20 Private MD: Diagnosis: Acute upper respiratory infection, unspecified Presentation: 01/31 14:11 Chief complaint: Patient states: Fever, cough, congestion, chest pressure, VILLELA, fatigue, ll1 weakness sine 01/27. Decreased appetite, and decreased taste. Coronavirus screen: Client denies travel out of the [place] in the last 14 days. congestion, cough unrelated to allergies, fatigue, fever, nausea, Client presents with at least one sign or symptom that may indicate coronavirus-19. Standard/surgical mask placed on the client. Ebola Screen: Patient denies travel to an Ebola-affected area in the 21 days before illness onset. Initial Sepsis Screen: Does the patient meet any 2 criteria? HR > 90 bpm. No. Patient's initial sepsis screen is negative. Does the patient have a suspected source of infection? Yes: Productive cough/pneumonia. Risk Assessment: Do you want to hurt yourself or someone else? Patient reports no desire to harm self or others. Onset of symptoms was January 28, 2020. 14:11 Method Of Arrival: Ambulatory ll1 14:11 Acuity: EUGENIO 3 ll1 [employer] F[employer]ER: 18:39 LMP N/A - control method ll1 Historical: - Allergies: 14:10 No Known Drug Allergies; ll1 - PMHx: 14:10 Anxiety; ll1 - PSHx: 14:10 Appendectomy; ll1 14:11 IUD removal; ll1 - Immunization history:: Flu vaccine is not up to date. - Social history:: Smoking status: Patient reports the use of cigarette tobacco products, denies chronic smoking, but will smoke occasionally. Screenin:30 Abuse screen: Denies threats or abuse. Denies injuries from another. Nutritional ca1 screening: No deficits noted. Tuberculosis screening: No symptoms or risk factors identified. Fall Risk None identified. Assessment: 14:30 General: Appears in no apparent distress. comfortable, Behavior is calm, cooperative, ca1 appropriate for age, Reports fever for feeling ill for > 3 days. Pain: Complains of pain in chest Pain does not radiate. Quality of pain is described as pressure, Pain began 4 days. Neuro: Level of Consciousness is awake, alert, obeys commands, Oriented to person, place, time, situation. Cardiovascular: Heart tones S1 S2 present Capillary refill < 3 seconds Patient's skin is warm and dry. Respiratory: Reports cough that is Airway is patent Respiratory effort is even, unlabored, Respiratory pattern is regular, symmetrical, Breath sounds are clear bilaterally. GI: Abdomen is flat, non-distended, Bowel sounds present X 4 quads. Abd is soft and non tender X 4 quads. : No signs and/or symptoms were reported regarding the genitourinary system. EENT: Reports nasal congestion. Derm: Skin is intact, is healthy with good turgor, Skin is pink, warm \T\ dry. Musculoskeletal: Circulation, motion, and sensation intact. Capillary refill < 3 seconds. 15:30 Reassessment: No changes from previously documented assessment. Patient and/or family ll1 updated on plan of care and expected duration. Pain level reassessed. 16:30 Reassessment: No changes from previously documented assessment. Patient and/or family ll1 updated on plan of care and expected duration. Pain level reassessed. 17:30 Reassessment: No changes from previously documented assessment. Patient and/or family ll1 updated on plan of care and expected duration. Pain level reassessed. Vital Signs: 14:11 BP 113 / 84; Pulse 98; Resp 17; Temp 98.6; Pulse Ox 98% ; Weight 83.91 kg; Height 5 ft. ll1 0 in. (152.40 cm); Pain 4/10; 14:11 Body Mass Index 36.13 (83.91 kg, 152.40 cm) ll1 ED Course: 13:50 Patient arrived in ED. ag5 14:09 Arm band placed on. ll1 14:13 Triage completed. ll1 14:30 Patient has correct armband on for positive identification. Bed in low position. Call ca1 light in reach. Side rails up X 1. Pulse ox on. NIBP on. 14:30 No provider procedures requiring assistance completed. Patient did not have IV access ca1 during this emergency room visit. Patient maintains SpO2 saturation greater than 95% on room air. 15:27 Kalani Martin, JAVIER is Primary Nurse. ca1 15:34 Luis Carlos Paniagua NP is PHCP. pm1 15:34 Simba Duenas MD is Attending Physician. pm1 Administered Medications: No medications were administered Outcome: 17:39 Discharge ordered by MD. pm1 18:07 Patient left the ED. ll1 18:07 Discharged to home ambulatory. ll1 18:07 Condition: stable 18:07 Discharge instructions given to patient, Instructed on discharge instructions, follow up and referral plans. medication usage, Demonstrated understanding of instructions, follow-up care, medications, Prescriptions given X 1. Addendum: 02/03/2020 20:40 Addendum: COVID-19 Result: Positive result giiven to ED physician to notify pt. i w Physician: Maximo Schaeffer MD Physician was able to contact pt and pt was notified of positive COVID-19 swab result. Physician answered pt questions. Signatures: Silva Weaver, RN RN iw Luis Carlos Paniagua NP CUSTOMER ACCOUNT MANAGER pm1 Kalani Martin RN RN ca1 Estela, David ag5 Paul Pennington RN RN ll1 Corrections: (The following items were deleted from the chart) 01/31 16:13 14:30 General: Appears in no apparent distress. comfortable, Behavior is calm, ca1 cooperative, appropriate for age, Reports feeling ill for > 3 days, ca1 16:13 14:30 Respiratory: Airway is patent Respiratory effort is even, unlabored, Respiratory ca1 pattern is regular, symmetrical, Breath sounds are clear bilaterally. ca1 16:13 14:30 EENT: No signs and/or symptoms were reported regarding the EENT system. ca1 ca1
--- NOTE | 2020-02-01 17:40 | EDPHYS ---
Physician Documentation [facility] Name: Goyo Solorio Age: 35 yrs Sex: Female : 1985 Arrival Date: 02/01/2020 Time: 13:50 Bed 20 Private MD: ED Physician Simba Duenas HPI: 01/31 15:49 This 35 yrs old Female presents to ER via Ambulatory with complaints of Fever, pm1 Chest Pressure, Headache. 15:49 The patient or guardian reports cough, with no sputum. Onset: The symptoms/episode pm1 began/occurred 4 day(s) ago. Severity of symptoms: in the emergency department the symptoms have improved, markedly. Associated signs and symptoms: Pertinent positives: fever, headache, chest pressure. Patient with cough and fever that has resolved and no shortness of breath present. She reports chest pressure and attributes it to anxiety over possible covid diagnosis. Patient with decreased smell and taste. 15:49 Patient is here with her boyfriend that is also being tested for covid and he has pm1 decreased smell and taste. 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 - Social history:: Smoking status: Patient reports the use of cigarette tobacco products, denies chronic smoking, but will smoke occasionally. ROS: 15:49 Constitutional: Negative for fever, chills, and weight loss, Eyes: Negative for injury, pm1 pain, redness, and discharge. 15:49 Neck: Negative for injury, pain, and swelling, Back: Negative for injury and pain, : Negative for injury, bleeding, discharge, and swelling, MS/Extremity: Negative for injury and deformity, Skin: Negative for injury, rash, and discoloration. 15:49 Cardiovascular: Positive for chest congestion, Negative for chest pain, edema, palpitations. 15:49 Respiratory: Negative for cough, shortness of breath, sputum production. 15:49 Neuro: Positive for headache, Negative for numbness, tingling. Exam: 15:49 Constitutional: This is a well developed, well nourished patient who is awake, alert, pm1 and in no acute distress. Head/Face: Normocephalic, atraumatic. ENT: Nares patent. No nasal discharge, no septal abnormalities noted. Tympanic membranes are normal and external auditory canals are clear. Oropharynx with no redness, swelling, or masses, exudates, or evidence of obstruction, uvula midline. Mucous membranes moist. 15:49 Skin: Warm, dry with normal turgor. Normal color with no rashes, no lesions, and no evidence of cellulitis. MS/ Extremity: Pulses equal, no cyanosis. Neurovascular intact. Full, normal range of motion. 15:49 Cardiovascular: Exam negative for acute changes, Rate: normal, Rhythm: regular, Pulses: no pulse deficits are appreciated. 15:49 Respiratory: Exam negative for acute changes, respiratory distress, shortness of breath. 15:49 Neuro: Exam negative for acute changes, Orientation: is normal, Mentation: is normal, Motor: is normal, moves all fours. Vital Signs: 14:11 BP 113 / 84; Pulse 98; Resp 17; Temp 98.6; Pulse Ox 98% ; Weight 83.91 kg; Height 5 ft. ll1 0 in. (152.40 cm); Pain 4/10; 14:11 Body Mass Index 36.13 (83.91 kg, 152.40 cm) ll1 MDM: 15:49 Patient medically screened. pm1 17:38 Data reviewed: vital signs. Data interpreted: Pulse oximetry: on room air is 98 %. pm1 Interpretation: normal. Counseling: I had a detailed discussion with the patient and/or guardian regarding: the historical points, exam findings, and any diagnostic results supporting the discharge/admit diagnosis, lab results, the need for outpatient follow up, to return to the emergency department if symptoms worsen or persist or if there are any questions or concerns that arise at home. 01/31 15:48 Order name: COVID-19 pm1 01/31 15:48 Order name: Flu pm1 01/31 15:48 Order name: Strep; Complete Time: 18:03 pm1 01/31 15:48 Order name: Droplet/Contact Precautions; Complete Time: 16:08 pm1 01/31 17:33 Order name: Throat Culture EDMS Administered Medications: No medications were administered Disposition: 18:59 Co-signature as Attending Physician, Simba Duenas MD I agree with the assessment and kdr plan of care. Disposition: 02/01/20 17:39 Discharged to Home. Impression: Acute upper respiratory infection, unspecified. - Condition is Stable. - Discharge Instructions: Upper Respiratory Infection, Adult, COVID-19. - Prescriptions for Zithromax Z- Bladimir 250 mg Oral Tablet - take 1 tablet by ORAL route as directed for 5 days Day 1 - take two (2) tablets one time. Day 2, 3, 4 , 5 take one (1) tablet once daily.; 6 tablet. - Medication Reconciliation Form, Thank You Letter, Antibiotic Education, Prescription Opioid Use form. - Follow up: Emergency Department; When: As needed; Reason: Worsening of condition. Follow up: Private Physician; When: 2 - 3 days; Reason: Recheck today's complaints, Continuance of care, Re-evaluation by your physician. - Problem is new. - Symptoms have improved. Signatures: Dispatcher [employer] EDPR Simba Duenas MD MD kdr Marinas, Patrick REHABILITATION ATTENDANT REHABILITATION ATTENDANT pm1 Paul Pennington RN RN ll1 Corrections: (The following items were deleted from the chart) 18:07 17:39 02/01/2020 17:39 Discharged to Home. Impression: Acute upper respiratory ll1 infection, unspecified. Condition is Stable. Discharge Instructions: COVID-19, Upper Respiratory Infection, Adult. Forms are Medication Reconciliation Form, Thank You Letter, Antibiotic Education, Prescription Opioid Use. Follow up: Emergency Department; When: As needed; Reason: Worsening of condition. Follow up: Private Physician; When: 2 - 3 days; Reason: Recheck today's complaints, Continuance of care, Re-evaluation by your physician. Problem is new. Symptoms have improved. pm1
[2020-02-01 18:17] VITALS: BP 113/84; TEMP 98.6; O2SAT 98
== END 2020-02-01 18:07 | disposition home or self-care (01) ==
LOC: ER 13:48
DX: U07.1 COVID-19 (principal); J06.9 Acute upper respiratory infection, unspecified; F17.210 Nicotine dependence, cigarettes, uncomplicated
CPT/HCPCS: 87070; 87081; 87804 ×2; 99284; U0002

== ENCOUNTER 2020-02-05 11:30 | Emergency (ER) | payer OTHER ==
--- OUTSIDE RECORDS SUMMARY | 2020-02-05 11:32 | XMS REPORT | Continuity of Care Document ---
:1985 Author Organization [facility] t Address [address] [place] [address] Care Team Providers Name Role Phone Mariah [...] Allergie 7-15 Clear s 00:00: Hough 00 [facility] No Known DA Active U 2012-02 [facility] Allergie 0-06 Clear s 00:00: Hough 00 [facility] Medications This patient has no known medications. Procedures This patient has no known procedures. Encounters Start End Encounter Admission Attending Care Care Encounter Source Date/Time Date/Time Type Type Clinicians Facility Department ID 2019-09-26 2019-09-26 Patient BijanMADAN [id number] 00:00:00 00:00:00 Secure [facility] Yoseph De [place]ente [id number] [place] [id number] Skip [phone] [address] 2019-09-21 2019-09-21 Hospital Bijan [facility] [id number] 11:10:44 23:59:00 Encounter [place] [id number] [place] [id number] [place] [id number] 2019-09-21 2019-09-21 [facility] Bijan [facility] [id number] 11:00:00 11:09:00 Encounter W[facility]iful A [place] [id number] [place] [id number] [place] [id number] 2019-09-21 2019-09-21 [facility] [id number] 09:56:26 10:59:00 Encounter Wondiful A [place] [id number] [place] [id number] [place] [id number] [id number] 2019-09-21 2019-09-21 Case Bijan [facility] [id number] 00:00:00 00:00:00 Management [facility] A [place] [id number] [place] [id number] Professio [phone] [address] 2019-09-21 2019-09-21 Patient Bijan [facility] [id number] 00:00:00 00:00:00 Secure Msg [facility] [place] [id number] [place] [id number] Profess[place] [phone] [address] 2019-09-20 2019-09-20 Laboratory Only, [facility] [id number] 10:01:43 10:16:43 Only Test [place] [id number] [place] [id number] [place] [id number] 2019-09-20 2019-09-20 Weigh And Charge Worker Naomi, [facility] [id number] 09:55:41 10:10:41 Visit Lab Main [place] [id number] [place] [id number] Profess[facility] [phone] pending sale to [facility] 353 [facility] 2019-09-20 2019-09-20 Orders Doctor KEARA [id number] 00:00:00 00:00:00 Only Unassigned, CASI 350.1.13.10 [facility] 4.2.7.2.686 [id number] 2019-09-19 2019-09-19 [facility] [id number] 13:45:12 15:57:17 ne Visit Yoseph De La [place] [id number] [place] [id number] Professio [phone] pending sale to [facility] 044 [facility] 2019-09-19 2019-09-19 Telephone Bijan [facility] [id number] 00:00:00 00:00:00 Wondiful A [place] [id number] [place] 4.2.7.2.686 Professio [phone] [place] [address] [address] One Results Test Description Test [...] 65 IUnit/L 20-125 N code = ALKP) [id number] 10:12:00 Test Item Value Reference Range Interpretation [...] may jett y by method. COMPREHENSIVE METABOLIC [id number] 10:11:00 Test Item Value Reference Range Interpretation [...] TOTAL (test IUnit/L 20-125 code = ALKP) [id number] 10:11:00 Test Item Value Reference Range Interpretation [...] results may jett y by method. PROTHROMBIN [id number] 09:59:00 Test Item Value Reference Range Interpretation [...] Infarction (t o prevent recurre nt infarct). [id number] 09:59:00 Test Item Value Reference Range Interpretation [...] TESTS AND APPROPRIATECLIN ICAL EUALUATIONS. CBC W/AUTO [id number] 09:56:00 Test Item Value Reference Range Interpretation [...] code = MDIFF) - XR CHEST 1 [id number] 09:56:00 FAX: Dallas Cain MD [phone] [place]: St: PRE Name: RAGHAVENDRA QUINN [facility] : 1985 Age/S: 34/F [address] [place] [address] Unit#: [id number] Loc: [place] [address] Phys: Dallas Cain MD Acct: [id number] Dis Date: Status: PRE ER PHONE #: [phone] Exam Date: 08/22/2019 1003 FAX #: [phone] Reason: Chest Pain EXAMS: CPT CODE: [id number] XR CHEST 1 V 98427 PROCEDURE: CHEST SINGLE VIEW INDICATION: Chest Pain COMPARISON: There are no previous relevant studies available for correlation. FINDINGS: The lungs are clear. No pleural abnormality. The cardiomediastinalsilhouette is normal for projection. The bony thorax is intact. IMPRESSION: Normal radiograph. SL: [id number] at 0956 Reported and signed by: Samson Sousa M.D. CC: Dallas Cain MD Technologist: Lilly Agarwal RT(R) Trnscrd Date/Time/By: 08/22/2019 (0956) : By: Krissy Orig Print D/T: S: 08/22/2019 (1003) PAGE 1 Signed Report
[2020-02-05] MEDS ORDERED: METHYLPREDNISOLONE 125 MG INJ ONE (12:08)
[2020-02-05 12:17] LABS: Absolute Lymphocytes (CBC) 2.9 K/uL (0.7-4.9); Hematocrit 45.5 % (36.0-45.0); Lymphocytes % 33.4 % (15.3-44.8); MPV 7.7 fL (7.6-11.3); RBC Red Blood Cell Count 5.73 M/uL (3.86-4.86)
[2020-02-05 12:27] LABS: BUN Blood Urea Nitrogen 11 mg/dL (7-18); Bicarbonate 24 mmol/L (21-32); Glucose Level 82 mg/dL (74-106); Potassium 3.9 mmol/L (3.5-5.1); Sodium Level 139 mmol/L (136-145)
--- NOTE | 2020-02-05 12:32 | RAD REPORT ---
EXAM DESCRIPTION: CT - Chest For Pe Angio - 02/05/2020 12:24 pm CLINICAL HISTORY: CHEST PAIN, positive COVID test COMPARISON: Chest Single View dated 02/05/2020 TECHNIQUE: Dynamically enhanced 3 mm thick images of the chest were obtained during administration o f approximately 150mL Isovue 370 IV contrast. Coronal and oblique MIP reconstruction images were gene rated and reviewed. Exam utilizes a protocol to evaluate the pulmonary arterial tree. All CT scans are performed using dose optimization technique as appropriate and may include automated exposure control or mA/KV adjustment according to patient size. FINDINGS: No pulmonary emboli are identified. The aorta as imaged shows no acute or suspicious finding. No pericardial thickening or effusion. No dense consolidation or mass lesions seen. Respiratory motion accentuates the interstitial pattern in the lower lung mtata. The patient has a few small areas of ground-glass opacification scattered i n the lung parenchyma. This ground-glass pattern is nonspecific and can be seen with atelectasis and viral infiltrates. COVID-19 pneumonia is possible given the history of a positive COVID test. They elizabeth ve COVID related this is a minimal finding. No pleural effusion or pleural thickening. No mediastinal or hilar suspicious masses. No chest wall masses or abnormal axillary lymphadenopathy. IMPRESSION: No pulmonary emboli identified. A few very small ground-glass opacities are scattered in the lung matta.These are nonspecific and co uld be atelectasis or minimal viral infiltrates. Very minimal COVID-19 pneumonia changes would be pos sible given the history of positive COVID test
--- NOTE | 2020-02-05 12:33 | RAD REPORT ---
EXAM DESCRIPTION: RAD - Chest Single View - 02/05/2020 12:28 pm CLINICAL HISTORY: COVID+;Dyspnea;Cough COMPARISON: Portable December 25 TECHNIQUE: AP portable chest image was obtained 02/05/2020 12:28 pm . FINDINGS: No focal mass or consolidation of the lung parenchyma. Heart and vasculature are normal. N o measurable pleural effusion and no pneumothorax. No acute bony abnormality seen. No acute aortic fi ndings suspected. IMPRESSION: No acute cardiopulmonary process. No significant change from comparison study.
--- NOTE | 2020-02-05 12:36 | ER ---
Nurse's Notes [facility] Name: Goyo Solorio Age: 35 yrs Sex: Female : 1985 Arrival Date: 02/05/2020 Time: 11:32 Bed 17 Private MD: Diagnosis: Coronavirus infection, unspecified Presentation: 02/04 11:50 Chief complaint: Patient states: SOB today. Covid positive here 3 days ago. States her ll1 symptoms began 01/25. Fever has resolved now. Coronavirus screen: Client denies travel out of the [place] in the last 14 days. cough unrelated to allergies, fatigue, muscle pain, Client presents with at least one sign or symptom that may indicate coronavirus-19. Standard/surgical mask placed on the client. Client reports previous positive COVID test result. Ebola Screen: Patient denies travel to an Ebola-affected area in the 21 days before illness onset. Initial Sepsis Screen: Does the patient meet any 2 criteria? No. Patient's initial sepsis screen is negative. Does the patient have a suspected source of infection? Yes: Productive cough/pneumonia. Risk Assessment: Do you want to hurt yourself or someone else? Patient reports no desire to harm self or others. Onset of symptoms was January 26, 2020. 11:50 Method Of Arrival: Ambulatory ll1 11:50 Acuity: EUGENIO 3 ll1 Historical: - Allergies: 11:49 No Known Allergies; ll1 - PMHx: 11:49 Anxiety; ll1 - PSHx: 11:49 Appendectomy; IUD removal; ll1 - Immunization history:: Flu vaccine is not up to date. - Social history:: Smoking status: Patient reports the use of cigarette tobacco products, denies chronic smoking, but will smoke occasionally. - Family history:: not pertinent. - Hospitalizations: : No recent hospitalization is reported. Screenin:09 Abuse screen: Denies threats or abuse. Nutritional screening: No deficits noted. ll1 Tuberculosis screening: No symptoms or risk factors identified. Fall Risk Total Rome Fall Scale indicates No Risk (0-24 pts). Assessment: 11:50 General: Appears in no apparent distress. Behavior is calm, cooperative, appropriate ll1 for age. Pain: Denies pain. Pain: Pain does not radiate. Pain began leg aches. Neuro: No deficits noted. Cardiovascular: No deficits noted. Respiratory: Reports shortness of breath at times cough that is Airway is patent Trachea midline Respiratory effort is even, unlabored, Respiratory pattern is regular, symmetrical. Musculoskeletal: Circulation, motion, and sensation intact. Capillary refill < 3 seconds, Range of motion: intact in all extremities, Reports leg aches. Vital Signs: 11:50 BP 108 / 95; Pulse 83; Resp 17; Temp 98.9; Pulse Ox 98% on R/A; Weight 83.91 kg; Height ll1 5 ft. 0 in. (152.40 cm); Pain 2/10; 12:45 BP 105 / 78; Pulse 90; Resp 17; Pulse Ox 97% ; jl7 11:50 Body Mass Index 36.13 (83.91 kg, 152.40 cm) ll1 ED Course: 11:32 Patient arrived in ED. rg4 11:42 Edu Rucker MD is Attending Physician. rn 11:49 Arm band placed on Patient placed in an exam room, on a stretcher. ll1 11:51 Triage completed. ll1 11:51 Paul Pennington, JAVIER is Primary Nurse. ll1 12:00 Inserted saline lock: 22 gauge in right forearm, using aseptic technique. Blood ll1 collected. Patient maintains SpO2 saturation greater than 95% on room air. 12:08 Primary Nurse role handed off by Paul Pennington RN jl7 12:08 Cole Lima, JAVIER is Primary Nurse. jl7 12:09 Patient has correct armband on for positive identification. Bed in low position. Call ll1 light in reach. Side rails up X 1. Pulse ox on. NIBP on. 12:24 CT Chest For PE Angio In Process Unspecified. EDMS 12:29 XRAY Chest (1 view) In Process Unspecified. EDMS 12:58 No provider procedures requiring assistance completed. IV discontinued, intact, jl7 bleeding controlled, No redness/swelling at site. Pressure dressing applied. Administered Medications: 12:07 Not Given (Patient Refused): SOLU-Medrol 125 mg IM once dm5 12:46 Drug: SOLU-Medrol 125 mg Route: IVP; Site: right forearm; jl7 12:58 Follow up: Response: No adverse reaction jl7 Outcome: 12:36 Discharge ordered by . rn 12:58 Discharged to home ambulatory. jl7 12:58 Condition: stable 12:58 Discharge instructions given to patient, Instructed on discharge instructions, follow up and referral plans. medication usage, Demonstrated understanding of instructions, follow-up care, medications, Prescriptions given X 1. 12:59 Patient left the ED. jl7 Signatures: Dispatcher [employer] EDMS Edu Rucker MD MD rn Garcia, Rubi rg4 Cole Lima RN RN jl7 Paul Pennington RN RN ll1 Aurora Prince RN dm5
--- NOTE | 2020-02-05 12:36 | EDPHYS ---
Physician Documentation [facility] Name: Goyo Solorio Age: 35 yrs Sex: Female : 1985 Arrival Date: 02/05/2020 Time: 11:32 Bed 17 Private MD: ED Physician Edu Rucker HPI: 02/04 11:50 This 35 yrs old Female presents to ER via Unassigned with complaints of Chest rn Tightness, Breathing Difficulty. 11:50 The patient has shortness of breath with light activity. Onset: The symptoms/episode rn began/occurred today. Duration: The symptoms are intermittent. The patient's shortness of breath is aggravated by coughing. Severity of symptoms: At their worst the symptoms were mild in the emergency department the symptoms are unchanged. The patient has not experienced similar symptoms in the past. The patient has been recently seen by a physician:. Reports symptoms for 9 days, tested + for COVID-19 a few days ago, reports still coughing, but became more sob today. No hemoptysis. No hx of dvt/PE.. Historical: - Allergies: 11:49 No Known Allergies; ll1 - PMHx: 11:49 Anxiety; ll1 - PSHx: 11:49 Appendectomy; IUD removal; ll1 - Immunization history:: Flu vaccine is not up to date. - Social history:: Smoking status: Patient reports the use of cigarette tobacco products, denies chronic smoking, but will smoke occasionally. - Family history:: not pertinent. - Hospitalizations: : No recent hospitalization is reported. ROS: 11:50 Constitutional: Negative for fever, chills, and weight loss, Eyes: Negative for injury, rn pain, redness, and discharge, Neck: Negative for injury, pain, and swelling, Cardiovascular: Negative for chest pain, palpitations, and edema, Respiratory: Negative for wheezing, and pleuritic chest pain, Abdomen/GI: Negative for abdominal pain, nausea, vomiting, diarrhea, and constipation, Back: Negative for injury and pain, MS/Extremity: Negative for injury and deformity, Skin: Negative for injury, rash, and discoloration, Neuro: Negative for headache, weakness, numbness, tingling, and seizure. Exam: 11:50 Constitutional: This is a well developed, well nourished patient who is awake, alert, rn and in no acute distress. Ambulatory to room without difficulty or assistance. Head/Face: Normocephalic, atraumatic. ENT: No stridor Cardiovascular: Regular rate and rhythm. No pulse deficits. Respiratory: Speaking full sentences. No increased work of breathing, no retractions or nasal flaring. Skin: Warm, dry MS/ Extremity: Pulses equal, no cyanosis. Equal circumference. Neuro: Awake and alert, GCS 15 Vital Signs: 11:50 BP 108 / 95; Pulse 83; Resp 17; Temp 98.9; Pulse Ox 98% on R/A; Weight 83.91 kg; Height ll1 5 ft. 0 in. (152.40 cm); Pain 2/10; 12:45 BP 105 / 78; Pulse 90; Resp 17; Pulse Ox 97% ; jl7 11:50 Body Mass Index 36.13 (83.91 kg, 152.40 cm) ll1 MDM: 11:42 Patient medically screened. rn 12:11 Refusal of service: The patient/guardian displays adequate decision making capability rn and despite a detailed discussion of alternatives, benefits, risks, and consequences refuses: Medications. 12:34 Differential diagnosis: Bronchitis pneumonia, pulmonary edema, Pulmonary Embolism rn reactive airway disease. Data reviewed: vital signs, nurses notes, lab test result(s), radiologic studies, CT scan, plain films, and as a result, I will discharge patient. Counseling: I had a detailed discussion with the patient and/or guardian regarding: the historical points, exam findings, and any diagnostic results supporting the discharge/admit diagnosis, lab results, radiology results, the need for outpatient follow up, to return to the emergency department if symptoms worsen or persist or if there are any questions or concerns that arise at home. Special discussion: I discussed with the patient/guardian in detail that at this point there is no indication for admission to the hospital. It is understood, however, that if the symptoms persist or worsen the patient needs to return immediately for re-evaluation. ED course: CT chest neg for PE, mild COVID changes, will dc home. Taking zithromax, refuses other medication.. 02/04 11:50 Order name: CBC with Diff; Complete Time: 12:30 rn 02/04 11:50 Order name: Basic Metabolic Panel; Complete Time: 12:30 rn 02/04 11:47 Order name: XRAY Chest (1 view); Complete Time: 12:34 rn 02/04 11:50 Order name: CT Chest For PE Angio; Complete Time: 12:34 rn 02/04 11:50 Order name: IV Start; Complete Time: 12:05 rn Administered Medications: 12:07 Not Given (Patient Refused): SOLU-Medrol 125 mg IM once dm5 12:46 Drug: SOLU-Medrol 125 mg Route: IVP; Site: right forearm; jl7 12:58 Follow up: Response: No adverse reaction jl7 Disposition: 02/05/20 12:36 Discharged to Home. Impression: Coronavirus infection, unspecified. - Condition is Stable. - Discharge Instructions: COVID-19. - Prescriptions for Prednisone 20 mg Oral Tablet - take 3 tablet by ORAL route once daily for 5 days; 15 tablet. - Medication Reconciliation Form, Thank You Letter, Antibiotic Education, Prescription Opioid Use form. - Follow up: Private Physician; When: As needed; Reason: Recheck today's complaints, Re-evaluation by your physician. - Problem is an ongoing problem. - Symptoms have improved. Signatures: Dispatcher [employer] EDMS Edu Rucker MD MD rn Leal, Jahala RN RN jl7 Paul Pennington RN RN ll1 Aurora Prince RN dm5 Corrections: (The following items were deleted from the chart) 12:59 12:36 02/05/2020 12:36 Discharged to Home. Impression: Coronavirus infection, jl7 unspecified. Condition is Stable. Forms are Medication Reconciliation Form, Thank You Letter, Antibiotic Education, Prescription Opioid Use. Follow up: Private Physician; When: As needed; Reason: Recheck today's complaints, Re-evaluation by your physician. Problem is an ongoing problem. Symptoms have improved. rn
[2020-02-05 13:04] VITALS: TEMP 98.9
[2020-02-05 13:05] VITALS: BP 105/78; O2SAT 97
== END 2020-02-05 12:59 | disposition home or self-care (01) ==
LOC: ER 11:30
DX: U07.1 COVID-19 (principal); F17.210 Nicotine dependence, cigarettes, uncomplicated
CPT/HCPCS: 85025; 80048; 36415; 82565; 71275; 71045; 96374; 99284; Q9967; J2930

== ENCOUNTER 2020-02-05 19:37 | Emergency (ER) | payer OTHER ==
--- OUTSIDE RECORDS SUMMARY | 2020-02-05 19:40 | XMS REPORT | Continuity of Care Document ---
:1985 Author Organization [facility] t Address [address] [place] [address] [place] [address] Care Team Providers Name Role Phone Mariah [...] Allergie 7-15 Clear s 00:00: Hough 00 [facility] No Known DA Active U 2012-02 [facility] Allergie 0-06 Clear s 00:00: Hough 00 [facility] Medications This patient has no known medications. Procedures This patient has no known procedures. Encounters Start End Encounter Admission Attending Care Care Encounter Source Date/Time Date/Time Type Type Clinicians Facility Department ID 2019-09-26 2019-09-26 Patient BijanMADAN [id number] [id number] 00:00:00 00:00:00 Secure [facility] [place]ente 350.1.13.10 [place] 4.2.7.2.686 Skip [phone] [address] 2019-09-21 2019-09-21 Hospital Bijan [facility] [id number] 11:10:44 23:59:00 Encounter Wondiful A [place] 350.1.13.10 [place] 4.2.7.2.686 [place] [phone] [id number] 2019-09-21 2019-09-21 [facility] Bijan [facility] [id number] 11:00:00 11:09:00 Encounter Wondiful A [place] 350.1.13.10 [place] 4.2.7.2.686 [place] [id number] 807 2019-09-21 2019-09-21 [facility] [id number] 09:56:26 10:59:00 Encounter Wondiful A [place] 350.1.13.10 [place] 4.2.7.2.686 [place] [id number] 807 2019-09-21 2019-09-21 Case Bijan [facility] [id number] 00:00:00 00:00:00 Management Wondiful A [place] 350.1.13.10 [place] 4.2.7.2.686 [place] [phone] [address] 2019-09-21 2019-09-21 Patient Bijan [facility] [id number] 00:00:00 00:00:00 Secure Msg [place] A [place] 350.1.13.10 [place] 4.2.7.2.686 [place] [phone] [address] 2019-09-20 2019-09-20 Laboratory Only, [facility] 1.2.840.114 [id number] 10:01:43 10:16:43 Only Test [place] 350.1.13.10 [place] 4.2.7.2.686 [place] [id number] 353 2019-09-20 2019-09-20 Cnc Technician Naomi, [facility] [id number] 09:55:41 10:10:41 Visit Lab Main [place] 350.1.13.10 [place] 4.2.7.2.686 [place] [phone] [facility] 353 [facility] 2019-09-20 2019-09-20 Orders Doctor KEARA [id number] 00:00:00 00:00:00 Only Unassigned, CASI 350.1.13.10 [facility] 4.2.7.2.686 [id number] [id number] 2019-09-19 2019-09-19 Telemedici [facility] 1.2.840.114 [id number] 13:45:12 15:57:17 ne Visit Yoseph De La [place]ente 350.1.13.10 [place] 4.2.7.2.686 [place] [phone] [facility] 044 [facility] 2019-09-19 2019-09-19 Telephone Biajn [facility] 1.2.840.114 [id number] 00:00:00 00:00:00 Wondiful A [employer] 350.1.13.10 [place] 4.2.7.2.686 [place] [phone] [place] [address] [address] One Results Test Description Test [...] 65 IUnit/L 20-125 N code = ALKP) [id number] 10:12:00 Test Item Value Reference Range Interpretation [...] may jett y by method. COMPREHENSIVE METABOLIC [id number] 10:11:00 Test Item Value Reference Range Interpretation [...] TOTAL (test IUnit/L 20-125 code = ALKP) [id number] 10:11:00 Test Item Value Reference Range Interpretation [...] results may jett y by method. PROTHROMBIN [id number] 09:59:00 Test Item Value Reference Range Interpretation [...] Infarction (t o prevent recurre nt infarct). [id number] 09:59:00 Test Item Value Reference Range Interpretation [...] TESTS AND APPROPRIATECLIN ICAL EUALUATIONS. CBC W/AUTO [id number] 09:56:00 Test Item Value Reference Range Interpretation [...] code = MDIFF) - XR CHEST 1 [id number] 09:56:00 FAX: Dallas Cain MD [phone] [place]: St: PRE Name: RAGHAVENDRA QUNIN [facility] : 1985 Age/S: 34/F [address] [place] [address] Unit#: [id number] Loc: [place] [address] Phys: Dallas Cain MD Acct: [id number] Dis Date: Status: PRE ER PHONE #: [phone] Exam Date: 08/22/2019 1003 FAX #: [phone] Reason: Chest Pain EXAMS: CPT CODE: [id number] XR CHEST 1 V 64117 PROCEDURE: CHEST SINGLE VIEW INDICATION: Chest Pain COMPARISON: There are no previous relevant studies available for correlation. FINDINGS: The lungs are clear. No pleural abnormality. The cardiomediastinalsilhouette is normal for projection. The bony thorax is intact. IMPRESSION: Normal radiograph. SL: [id number] at 0956 Reported and signed by: Samson Sousa M.D. CC: Dallas Cain MD Technologist: Lilly Agarwal RT(R) Trnscrd Date/Time/By: 08/22/2019 (0956) : By: Krissy Orig Print D/T: S: 08/22/2019 (1003) PAGE 1 Signed Report
--- NOTE | 2020-02-05 20:27 | EDPHYS ---
Physician Documentation [facility] Name: Goyo Solorio Age: 35 yrs Sex: Female : 1985 Arrival Date: 02/05/2020 Time: 19:39 Bed 15 Private MD: ED Physician Mike Veliz HPI: 02/04 21:25 This 35 yrs old Female presents to ER via Ambulatory with complaints of Fast kb Heart Rate. 21:25 The patient presents with a history of heart racing. Context: The symptoms occur at kb rest. Onset: The symptoms/episode began/occurred today. Duration: The patient or guardian reports a single episode, that is still ongoing. Modifying factors: The symptoms are aggravated by nothing. The symptoms are alleviated by nothing. Associated signs and symptoms: Pertinent positives: anxiety. Severity of symptoms: At their worst the symptoms were moderate in the emergency department the symptoms are unchanged. The patient has not experienced similar symptoms in the past. The patient has not recently seen a physician. Pt reports she was here earlier and they were going to give her solu-medrol, but she was worried about taking it so she refused at first. STates her CT came back with some COVID pneumonia so she decided to take it and they gave it right before she left. States she has been feeling like her heart is racing since the injection. She came in just to ask if that was a side effect of the medication. States she has anxiety so she thinks that could be the cause as well. . Historical: - Allergies: 19:54 No Known Drug Allergies; ll1 - PMHx: 19:54 Anxiety; ll1 - PSHx: 19:54 IUD removal; Appendectomy; ll1 - Immunization history:: Flu vaccine is not up to date. - Social history:: Smoking status: Patient reports the use of cigarette tobacco products, denies chronic smoking, but will smoke occasionally. ROS: 21:24 Constitutional: Negative for fever, chills, and weight loss, Respiratory: Negative for kb shortness of breath, cough, wheezing, and pleuritic chest pain, Abdomen/GI: Negative for abdominal pain, nausea, vomiting, diarrhea, and constipation, Back: Negative for injury and pain, MS/Extremity: Negative for injury and deformity, Skin: Negative for injury, rash, and discoloration, Neuro: Negative for headache, weakness, numbness, tingling, and seizure. 21:24 Cardiovascular: Positive for palpitations. 21:24 Psych: Positive for anxiety. Exam: 21:24 Head/Face: Normocephalic, atraumatic. Chest/axilla: Normal chest wall appearance and kb motion. Nontender with no deformity. No lesions are appreciated. Respiratory: Lungs have equal breath sounds bilaterally, clear to auscultation and percussion. No rales, rhonchi or wheezes noted. No increased work of breathing, no retractions or nasal flaring. Abdomen/GI: Soft, non-tender, with normal bowel sounds. No distension or tympany. No guarding or rebound. No evidence of tenderness throughout. Skin: Warm, dry with normal turgor. Normal color with no rashes, no lesions, and no evidence of cellulitis. MS/ Extremity: Pulses equal, no cyanosis. Neurovascular intact. Full, normal range of motion. Neuro: Awake and alert, GCS 15, oriented to person, place, time, and situation. Cranial nerves II-XII grossly intact. Motor strength 5/5 in all extremities. Sensory grossly intact. Cerebellar exam normal. Normal gait. 21:24 Cardiovascular: Rate: tachycardic, Rhythm: regular, Pulses: no pulse deficits are appreciated, Heart sounds: normal. 21:24 Constitutional: The patient appears alert, awake, anxious. kb Vital Signs: 19:52 BP 116 / 90; Pulse 117; Resp 18; Temp 97.9; Pulse Ox 96% on R/A; Weight 83.91 kg; ll1 Height 5 ft. (152.40 cm); Pain 2/10; 20:50 BP 114 / 71; Pulse 99; Resp 16; Pulse Ox 98% on R/A; jb4 19:52 Body Mass Index 36.13 (83.91 kg, 152.40 cm) ll1 MDM: 19:52 Patient medically screened. kb 20:23 Data reviewed: vital signs, nurses notes. Data interpreted: Pulse oximetry: on room air kb is 96 %. Interpretation: normal. Counseling: I had a detailed discussion with the patient and/or guardian regarding: the historical points, exam findings, and any diagnostic results supporting the discharge/admit diagnosis, the need for outpatient follow up, a family practitioner, to return to the emergency department if symptoms worsen or persist or if there are any questions or concerns that arise at home. 21:29 ED course: Pt's heart rate 100-105 when she is alone in room, goes up to 110-115 when a kb staff member walks in.. 02/04 20:05 Order name: EKG; Complete Time: 20:06 kb 02/04 20:05 Order name: EKG - Nurse/Tech; Complete Time: 20:19 kb Administered Medications: No medications were administered Disposition: 02/05 06:48 Co-signature as Attending Physician, Mike Veliz MD I agree with the assessment and nicol plan of care. Disposition: 02/05/20 20:26 Discharged to Home. Impression: Tachycardia, unspecified, Anxiety disorder, unspecified, Coronavirus infection, unspecified. - Condition is Stable. - Discharge Instructions: Panic Attacks, [id number], COVID-19. - Medication Reconciliation Form, Thank You Letter, Antibiotic Education, Prescription Opioid Use form. - Follow up: Emergency Department; When: As needed; Reason: Worsening of condition. Follow up: Private Physician; When: 2 - 3 days; Reason: Recheck today's complaints, Continuance of care, Re-evaluation by your physician. Signatures: Tess Roberto, MEAT WASHER-C MEAT WASHER-Mike Da Silva MD MD cha Bryson, James, RN RN jb4 Paul Pennington RN RN ll1 Corrections: (The following items were deleted from the chart) 02/04 20:51 20:26 02/05/2020 20:26 Discharged to Home. Impression: Tachycardia, unspecified; edgard Anxiety disorder, unspecified; Coronavirus infection, unspecified. Condition is Stable. Forms are Medication Reconciliation Form, Thank You Letter, Antibiotic Education, Prescription Opioid Use. Follow up: Emergency Department; When: As needed; Reason: Worsening of condition. Follow up: Private Physician; When: 2 - 3 days; Reason: Recheck today's complaints, Continuance of care, Re-evaluation by your physician. kb 21:25 21:24 Constitutional: This is a well developed, well nourished patient who is awake, kb alert, and in no acute distress. Head/Face: Normocephalic, atraumatic. Chest/axilla: Normal chest wall appearance and motion. Nontender with no deformity. No lesions are appreciated. Respiratory: Lungs have equal breath sounds bilaterally, clear to auscultation and percussion. No rales, rhonchi or wheezes noted. No increased work of breathing, no retractions or nasal flaring. Abdomen/GI: Soft, non-tender, with normal bowel sounds. No distension or tympany. No guarding or rebound. No evidence of tenderness throughout. Skin: Warm, dry with normal turgor. Normal color with no rashes, no lesions, and no evidence of cellulitis. MS/ Extremity: Pulses equal, no cyanosis. Neurovascular intact. Full, normal range of motion. Neuro: Awake and alert, GCS 15, oriented to person, place, time, and situation. Cranial nerves II-XII grossly intact. Motor strength 5/5 in all extremities. Sensory grossly intact. Cerebellar exam normal. Normal gait. kb
--- NOTE | 2020-02-05 20:27 | ER ---
Nurse's Notes [facility] Name: Goyo Solorio Age: 35 yrs Sex: Female : 1985 Arrival Date: 02/05/2020 Time: 19:39 Bed 15 Private MD: Diagnosis: Tachycardia, unspecified;Anxiety disorder, unspecified;Coronavirus infection, unspecified Presentation: 02/04 19:52 Chief complaint: Patient states: 2nd visit today. States her heart started racing ll1 around 1500 today, HR 122 at home. States SOB is better now. Coronavirus screen: Client denies travel out of the [place] in the last 14 days. difficulty breathing, fatigue, shaking with chills, Client presents with at least one sign or symptom that may indicate coronavirus-19. Standard/surgical mask placed on the client. Client reports previous positive COVID test result. Ebola Screen: Patient denies travel to an Ebola-affected area in the 21 days before illness onset. Initial Sepsis Screen: Does the patient meet any 2 criteria? HR > 90 bpm. No. Patient's initial sepsis screen is negative. Does the patient have a suspected source of infection? Yes: Productive cough/pneumonia. Risk Assessment: Do you want to hurt yourself or someone else? Patient reports no desire to harm self or others. Onset of symptoms was February 05, 2020. 19:52 Method Of Arrival: Ambulatory ll1 19:52 Acuity: EUGENIO 3 ll1 Historical: - Allergies: 19:54 No Known Drug Allergies; ll1 - PMHx: 19:54 Anxiety; ll1 - PSHx: 19:54 IUD removal; Appendectomy; ll1 - Immunization history:: Flu vaccine is not up to date. - Social history:: Smoking status: Patient reports the use of cigarette tobacco products, denies chronic smoking, but will smoke occasionally. Screenin:55 Abuse screen: Denies threats or abuse. Nutritional screening: No deficits noted. jb4 Tuberculosis screening: No symptoms or risk factors identified. Fall Risk None identified. Assessment: 19:55 General: Appears in no apparent distress. comfortable, Behavior is calm, cooperative, jb4 appropriate for age. Pain: Denies pain. Neuro: Level of Consciousness is awake, alert, obeys commands, Oriented to person, place, time, situation. Cardiovascular: Patient's skin is warm and dry. Respiratory: Airway is patent Respiratory effort is even, unlabored, Respiratory pattern is regular, symmetrical. GI: No signs and/or symptoms were reported involving the gastrointestinal system. : No signs and/or symptoms were reported regarding the genitourinary system. EENT: No signs and/or symptoms were reported regarding the EENT system. Derm: Skin is intact, Skin is pink, warm \T\ dry. Musculoskeletal: Circulation, motion, and sensation intact. Range of motion: intact in all extremities. 20:50 Reassessment: Patient appears in no apparent distress at this time. Patient and/or jb4 family updated on plan of care and expected duration. Pain level reassessed. Patient is alert, oriented x 3, equal unlabored respirations, skin warm/dry/pink. Vital Signs: 19:52 BP 116 / 90; Pulse 117; Resp 18; Temp 97.9; Pulse Ox 96% on R/A; Weight 83.91 kg; ll1 Height 5 ft. (152.40 cm); Pain 2/10; 20:50 BP 114 / 71; Pulse 99; Resp 16; Pulse Ox 98% on R/A; jb4 19:52 Body Mass Index 36.13 (83.91 kg, 152.40 cm) ll1 ED Course: 19:39 Patient arrived in ED. cl3 19:52 Tess Roberto FNP-C is [facility]. kb 19:52 Mike Veliz MD is Attending Physician. kb 19:54 Triage completed. ll1 19:54 Arm band placed on Patient placed in an exam room, on a stretcher. ll1 19:55 Patient has correct armband on for positive identification. Bed in low position. Call jb4 light in reach. Side rails up X 1. Pulse ox on. NIBP on. 20:05 Wilson Smith, RN is Primary Nurse. jb4 20:50 No provider procedures requiring assistance completed. Patient did not have IV access jb4 during this emergency room visit. Administered Medications: No medications were administered Outcome: 20:26 Discharge ordered by . kb 20:50 Discharged to home ambulatory. jb4 20:50 Condition: stable 20:50 Discharge instructions given to patient, Instructed on discharge instructions, follow up and referral plans. Demonstrated understanding of instructions, follow-up care. 20:51 Patient left the ED. jb4 Signatures: Tess Roberto FNP-C PAPER REWINDER-Ckb Wilson Smith, RN RN jb4 Kellen Pennington cl3 Paul Pennington, RN RN ll1
[2020-02-05 20:55] VITALS: TEMP 97.9
[2020-02-05 20:56] VITALS: BP 114/71; O2SAT 98
--- NOTE | 2020-02-08 16:17 | EKG ---
Test Date: 2020-02-05 Test Time: 20:14:50 Senior Production Supervisor: MAT MEASUREMENT RESULTS: Intervals: Rate: 115 AR: 158 QRSD: 86 QT: 330 QTc: 456 [place]: P: 56 AR: 158 QRS: 70 T: 34 INTERPRETIVE STATEMENTS: Sinus tachycardia Otherwise normal ECG Compared to ECG 12/26/2019 23:09:09 Sinus rhythm no longer present Electronically Signed On 02-08-20 16:10:12 CLASS B TRUCK DRIVER by Javon Carranza
== END 2020-02-05 20:51 | disposition home or self-care (01) ==
LOC: ER 19:37
DX: R00.0 Tachycardia, unspecified (principal); F41.9 Anxiety disorder, unspecified; F17.210 Nicotine dependence, cigarettes, uncomplicated
CPT/HCPCS: 93005; 99283

== ENCOUNTER 2020-02-08 15:50 | Emergency (ER) | payer OTHER ==
--- OUTSIDE RECORDS SUMMARY | 2020-02-08 15:53 | XMS REPORT | Continuity of Care Document ---
:1985 Author Organization [facility] t Address [address] [place] [address] Care Team Providers Name Role Phone Mariah [...] Allergie 7-15 Clear s 00:00: Hough 00 [facility] No Known DA Active U 2012-02 [facility] Allergie 0-06 Clear s 00:00: Hough 00 [facility] Medications This patient has no known medications. Procedures This patient has no known procedures. Encounters Start End Encounter Admission Attending Care Care Encounter Source Date/Time Date/Time Type Type Clinicians Facility Department ID 2019-09-26 2019-09-26 Patient BijanMADAN [id number] 00:00:00 00:00:00 Secure Yoseph De La Fuente 350.1.13.10 [place] 4.2.7.2.686 Professjoon [phone] [address] 2019-09-21 2019-09-21 Hospital Bijan [facility] [id number] 11:10:44 23:59:00 Encounter Wondiful A [place] 350.1.13.10 [place] 4.2.7.2.686 [place] [id number] 2019-09-21 2019-09-21 [facility] Bijan [facility] [id number] 11:00:00 11:09:00 Encounter Wondiful A [place] 350.1.13.10 [place] 4.2.7.2.686 [place] [id number] [id number] 2019-09-21 2019-09-21 [facility] Bijan [facility] [id number] 09:56:26 10:59:00 Encounter Wondiful A [place] 350.1.13.10 [place] 4.2.7.2.686 [place] [id number] [id number] 2019-09-21 2019-09-21 Case Bijan [facility] [id number] 00:00:00 00:00:00 Management Wondiful A [place] 350.1.13.10 [place] 4.2.7.2.686 [place] [phone] [address] 2019-09-21 2019-09-21 Patient Bijan [facility] [id number] 00:00:00 00:00:00 Secure Msg Wondiful A [place] 350.1.13.10 [place] 4.2.7.2.686 Profess[place] [phone] [address] 2019-09-20 2019-09-20 Laboratory Only, [facility] 1.2.840.114 [id number] 10:01:43 10:16:43 Only Test [place] 350.1.13.10 [place] 4.2.7.2.686 [place] [id number] 353 2019-09-20 2019-09-20 Railroad Commissioner Naomi, [facility] 1.2.840.114 [id number] 09:55:41 10:10:41 Visit Lab Main [place] 350.1.13.10 [place] 4.2.7.2.686 Profess[place] [phone] [facility] 353 [facility] 2019-09-20 2019-09-20 Orders Doctor KEARA 1.2.840.114 [id number] 00:00:00 00:00:00 Only Unassigned, CASI 350.1.13.10 [facility] 4.2.7.2.686 [id number] 009 2019-09-19 2019-09-19 [facility] [id number] 13:45:12 15:57:17 ne Visit Yoseph De La Fuente 350.1.13.10 [place] 4.2.7.2.686 Profess[place] [phone] [address] 2019-09-19 2019-09-19 Telephone Bijan [facility] [id number] 00:00:00 00:00:00 Wondiful A [facility] 350.1.13.10 [place] 4.2.7.2.686 Profess[place] [phone] [place] [address] Office [address] One Results Test Description Test [...] 65 IUnit/L 20-125 N code = ALKP) [id number] 10:12:00 Test Item Value Reference Range Interpretation [...] may jett y by method. COMPREHENSIVE METABOLIC [id number] 10:11:00 Test Item Value Reference Range Interpretation [...] TOTAL (test IUnit/L 20-125 code = ALKP) [id number] 10:11:00 Test Item Value Reference Range Interpretation [...] results may jett y by method. PROTHROMBIN [id number] 09:59:00 Test Item Value Reference Range Interpretation [...] Infarction (t o prevent recurre nt infarct). [id number] 09:59:00 Test Item Value Reference Range Interpretation [...] TESTS AND APPROPRIATECLIN ICAL EUALUATIONS. CBC W/AUTO [id number] 09:56:00 Test Item Value Reference Range Interpretation [...] code = MDIFF) - XR CHEST 1 [id number] 09:56:00 FAX: Dallas Cain MD [phone] [place]: St: PRE Name: QUINNRAGHAVENDRA [facility] : 1985 Age/S: 34/F [address] [place] [address] Unit#: [id number] Loc: [place] [address] Phys: Dallas Cain MD Acct: [id number] Dis Date: Status: PRE ER PHONE #: [phone] Exam Date: 08/22/2019 1003 FAX #: [phone] Reason: Chest Pain EXAMS: CPT CODE: [id number] XR CHEST 1 V 23597 PROCEDURE: CHEST SINGLE VIEW INDICATION: Chest Pain COMPARISON: There are no previous relevant studies available for correlation. FINDINGS: The lungs are clear. No pleural abnormality. The cardiomediastinalsilhouette is normal for projection. The bony thorax is intact. IMPRESSION: Normal radiograph. SL: [id number] at 0956 Reported and signed by: Samson Sousa M.D. CC: Dallas Cain MD Technologist: Lilly Agarwal RT(R) Trnscrd Date/Time/By: 08/22/2019 (0956) : By: Krissy Orig Print D/T: S: 08/22/2019 (3951) PAGE 1 Signed Report
--- NOTE | 2020-02-08 16:57 | RAD REPORT ---
EXAM DESCRIPTION: RAD - Chest Single View - 02/08/2020 4:38 pm CLINICAL HISTORY: CHEST PAIN, COVID positive COMPARISON: Portable February 05, 2020 TECHNIQUE: AP portable chest image was obtained 02/08/2020 4:38 pm . FINDINGS: Lungs are clear. Heart and vasculature are normal. No measurable pleural effusion and no p neumothorax. No acute bony abnormality seen. No acute aortic findings suspected. IMPRESSION: No acute cardiopulmonary process. No significant change from comparison study.
--- NOTE | 2020-02-08 17:44 | EDPHYS ---
Physician Documentation [facility] Name: Goyo Solorio Age: 35 yrs Sex: Female : 1985 Arrival Date: 02/08/2020 Time: 15:52 Bed 17 Private MD: ED Physician Maximo Shcaeffer HPI: 02/07 16:18 This 35 yrs old Female presents to ER via Ambulatory with complaints of pm1 Covid+- Chest Pain, Weakness. 16:18 The patient or guardian reports chest pain that is located primarily in the anterior pm1 aspect of left upper chest. The pain radiates to left back. Associated signs and symptoms: Associated signs and symptoms: Pertinent positives: Anxiety, Pertinent negatives: abdominal pain, cough, headache, nausea, shortness of breath, vomiting. Duration: The patient or guardian reports multiple episodes. Modifying factors: The symptoms are alleviated by nothing. the symptoms are aggravated by Anxiety and stopping her anxiety medicaitons. The patient has been recently seen at the [facility] Emergency Department, this week, for similar complaints. patient was recently diagnosed with COVID from a swab on 01/31. Patient has been seen in the ER multiple times since then for COVID symptoms. Today she reports left upper chest pain with radiation to left back and generalized weakness. FUNERAL ARRANGER: 15:59 LMP 01/28/2020 ca1 Historical: - Allergies: 15:59 No Known Allergies; ca1 - Home Meds: 15:59 Azithromycin Oral [Active]; ca1 - PMHx: 15:59 Anxiety; ca1 - PSHx: 15:59 IUD removal; Appendectomy; ca1 - Immunization history:: Adult Immunizations up to date, Flu vaccine is not up to date. - Social history:: Smoking status: Patient reports the use of cigarette tobacco products, denies chronic smoking, but will smoke occasionally. ROS: 16:18 Constitutional: Negative for fever, chills, and weight loss. pm1 16:18 Respiratory: Negative for shortness of breath, cough, wheezing, and pleuritic chest pain, Abdomen/GI: Negative for abdominal pain, nausea, vomiting, diarrhea, and constipation, Back: Negative for injury and pain, MS/Extremity: Negative for injury and deformity, Skin: Negative for injury, rash, and discoloration. 16:18 Cardiovascular: Positive for chest pain, Negative for edema, palpitations. 16:18 Neuro: Positive for weakness, generalized. Exam: 16:18 Constitutional: This is a well developed, well nourished patient who is awake, alert, pm1 and in no acute distress. Head/Face: Normocephalic, atraumatic. 16:18 Abdomen/GI: Soft, non-tender, with normal bowel sounds. No distension or tympany. No guarding or rebound. No evidence of tenderness throughout. Back: No spinal tenderness. No costovertebral tenderness. Full range of motion. Skin: Warm, dry with normal turgor. Normal color with no rashes, no lesions, and no evidence of cellulitis. MS/ Extremity: Pulses equal, no cyanosis. Neurovascular intact. Full, normal range of motion. 16:18 Chest/axilla: Inspection: normal, Palpation: tenderness, of the anterior aspect of left upper chest, that totally reproduces the patient's complaints, focal point. 16:18 Cardiovascular: Exam negative for acute changes, Rate: normal, Rhythm: regular, Pulses: no pulse deficits are appreciated. 16:18 Respiratory: Exam negative for acute changes, respiratory distress, shortness of breath. 16:18 Neuro: Exam negative for acute changes, Orientation: is normal, Mentation: is normal, Motor: is normal, moves all fours. Vital Signs: 15:56 BP 109 / 73; Pulse 96; Resp 16 S; Temp 97.2(TE); Pulse Ox 98% on R/A; Weight 83.91 kg ca1 (R); Height 5 ft. 0 in. (152.40 cm) (R); Pain 3/10; 17:44 BP 108 / 62; Pulse 53; Resp 17 S; Pulse Ox 95% on R/A; jd3 15:56 Body Mass Index 36.13 (83.91 kg, 152.40 cm) ca1 MDM: 16:08 Patient medically screened. pm1 17:43 Data reviewed: vital signs. Data interpreted: Pulse oximetry: on room air is 98 %. pm1 Interpretation: normal. Counseling: I had a detailed discussion with the patient and/or guardian regarding: the historical points, exam findings, and any diagnostic results supporting the discharge/admit diagnosis, radiology results, the need for outpatient follow up, to return to the emergency department if symptoms worsen or persist or if there are any questions or concerns that arise at home. 17:43 ED course: Patient did not want any blood work. She just wanted an x-ray to make sure pm1 she did not have pneumonia and a EKG to check her heart. She reports that she is having a hard time telling what is anxiety versus COVID. She is currently not taking the steroids prescribed to her and has stopped taking her anxiety medications. 02/07 16:17 Order name: Chest Single View XRAY; Complete Time: 17:32 pm1 02/07 17:03 Order name: EKG; Complete Time: 17:03 jd3 02/07 17:03 Order name: EKG - Nurse/Tech; Complete Time: 17:22 jd3 Administered Medications: No medications were administered Disposition: 02/08/20 17:43 Discharged to Home. Impression: Coronavirus infection, unspecified. - Condition is Stable. - Discharge Instructions: COVID-19. - Medication Reconciliation Form, Thank You Letter, Antibiotic Education, Prescription Opioid Use form. - Follow up: Emergency Department; When: As needed; Reason: Worsening of condition. Follow up: Private Physician; When: 2 - 3 days; Reason: Recheck today's complaints, Continuance of care, Re-evaluation by your physician. - Problem is new. - Symptoms have improved. Addendum: 02/10/2020 07:33 Co-signature as Attending Physician, Maximo Schaeffer MD I agree with the assessment and t w4 plan of care. Signatures: Dispatcher [employer] EDMS Luis Carlos Paniagua, [place] DIGITAL COORDINATOR pm1 Jose Cruz Guevara RN RN jd3 Wadley, Terrence, MD MD tw4 Kalani Martin RN RN ca1 Corrections: (The following items were deleted from the chart) 02/07 17:53 17:43 02/08/2020 17:43 Discharged to Home. Impression: Coronavirus infection, jd3 unspecified. Condition is Stable. Forms are Medication Reconciliation Form, Thank You Letter, Antibiotic Education, Prescription Opioid Use. Follow up: Emergency Department; When: As needed; Reason: Worsening of condition. Follow up: Private Physician; When: 2 - 3 days; Reason: Recheck today's complaints, Continuance of care, Re-evaluation by your physician. Problem is new. Symptoms have improved. pm1
--- NOTE | 2020-02-08 17:44 | ER ---
Nurse's Notes [facility] Name: Goyo Solorio Age: 35 yrs Sex: Female : 1985 Arrival Date: 02/08/2020 Time: 15:52 Bed 17 Private MD: Diagnosis: Coronavirus infection, unspecified Presentation: 02/07 15:56 Chief complaint: Patient states: Tested Covid Positive on the 31 of January. Chest ca1 pain radiating to the back and L arm since last night. Also elizabeth anxiety. Diarrhea and feeling weak since last night. Coronavirus screen: Client denies travel out of the [place] in the last 14 days. Client reports previous positive COVID test result. Date of collection: February 01, 2020. Ebola Screen: Patient negative for fever greater than or equal to 101.5 degrees Fahrenheit, and additional compatible Ebola Virus Disease symptoms Patient denies exposure to infectious person. Patient denies travel to an Ebola-affected area in the 21 days before illness onset. No symptoms or risks identified at this time. Initial Sepsis Screen: Does the patient meet any 2 criteria? No. Patient's initial sepsis screen is negative. Does the patient have a suspected source of infection? No. Patient's initial sepsis screen is negative. Risk Assessment: Do you want to hurt yourself or someone else? Patient reports no desire to harm self or others. Onset of symptoms was February 07, 2020. 15:56 Method Of Arrival: Ambulatory ca1 15:56 Acuity: EUGENIO 3 ca1 [place]: 15:59 LMP 01/28/2020 ca1 Historical: - Allergies: 15:59 No Known Allergies; ca1 - Home Meds: 15:59 Azithromycin Oral [Active]; ca1 - PMHx: 15:59 Anxiety; ca1 - PSHx: 15:59 IUD removal; Appendectomy; ca1 - Immunization history:: Adult Immunizations up to date, Flu vaccine is not up to date. - Social history:: Smoking status: Patient reports the use of cigarette tobacco products, denies chronic smoking, but will smoke occasionally. Screenin:45 Abuse screen: Denies threats or abuse. Nutritional screening: No deficits noted. jd3 Tuberculosis screening: No symptoms or risk factors identified. Fall Risk Ambulatory Aid- None/Bed Rest/Nurse Assist (0 pts). Gait- Normal/Bed Rest/Wheelchair (0 pts) Mental Status- Oriented to own ability (0 pts). Total Rome Fall Scale indicates No Risk (0-24 pts). Assessment: 16:44 General: Appears in no apparent distress. uncomfortable, Behavior is cooperative, jd3 appropriate for age, anxious, Reports fatigue for >3 days. Pain: Complains of pain in back Quality of pain is described as aching. Neuro: Level of Consciousness is awake, alert, obeys commands, Oriented to person, place, time, situation. Cardiovascular: Denies chest pain, Capillary refill < 3 seconds Patient's skin is warm and dry. Respiratory: Reports cough that is persistent Airway is patent Respiratory effort is even, unlabored, Respiratory pattern is regular, symmetrical. GI: No signs and/or symptoms were reported involving the gastrointestinal system. : No signs and/or symptoms were reported regarding the genitourinary system. EENT: No signs and/or symptoms were reported regarding the EENT system. Derm: Skin is intact, Skin is dry, Skin is normal, Skin temperature is warm. Musculoskeletal: Circulation, motion, and sensation intact. Range of motion: intact in all extremities. 17:44 Reassessment: Patient appears in no apparent distress at this time. No changes from jd3 previously documented assessment. Patient and/or family updated on plan of care and expected duration. Pain level reassessed. Patient is alert, oriented x 3, equal unlabored respirations, skin warm/dry/pink. Patient states feeling better. Vital Signs: 15:56 BP 109 / 73; Pulse 96; Resp 16 S; Temp 97.2(TE); Pulse Ox 98% on R/A; Weight 83.91 kg ca1 (R); Height 5 ft. 0 in. (152.40 cm) (R); Pain 3/10; 17:44 BP 108 / 62; Pulse 53; Resp 17 S; Pulse Ox 95% on R/A; jd3 15:56 Body Mass Index 36.13 (83.91 kg, 152.40 cm) ca1 ED Course: 15:52 Patient arrived in ED. rg4 15:58 Triage completed. ca1 15:59 Arm band placed on right wrist. ca1 16:01 Jose Cruz Guevara RN is Primary Nurse. jd3 16:07 Luis Carlos Paniagua NP is PHCP. pm1 16:07 Maximo Schaeffer MD is Attending Physician. pm1 16:38 Chest Single View XRAY In Process Unspecified. EDMS 16:45 Patient has correct armband on for positive identification. Placed in gown. Bed in low jd3 position. Call light in reach. Side rails up X 1. Pulse ox on. NIBP on. 17:42 EKG done, by audiology technician. reviewed by Luis Carlos Paniagua NP. jd3 17:45 No provider procedures requiring assistance completed. Patient did not have IV access jd3 during this emergency room visit. Administered Medications: No medications were administered Outcome: 17:43 Discharge ordered by MD. pm1 17:51 Discharged to home ambulatory, with family. jd3 17:51 Condition: stable 17:51 Discharge instructions given to patient, Instructed on discharge instructions, follow up and referral plans. Demonstrated understanding of instructions, follow-up care. 17:53 Patient left the ED. jd3 Signatures: Dispatcher [employer] EDAZ Luis Carlos Paniagua NP SUPERVISOR COAL HANDLING pm1 Roz Ruelas rg4 Jose Cruz Guevara RN RN jd3 Kalani Martin RN RN ca1 Corrections: (The following items were deleted from the chart) 17:51 17:44 Reassessment: Patient appears in no apparent distress at this time. No changes jd3 from previously documented assessment. Patient and/or family updated on plan of care and expected duration. Pain level reassessed. Patient is alert, oriented x 3, equal unlabored respirations, skin warm/dry/pink. jd3
[2020-02-08 18:01] VITALS: TEMP 97.2
[2020-02-08 18:03] VITALS: BP 108/62; O2SAT 95
--- NOTE | 2020-02-09 14:06 | EKG ---
Test Date: 2020-02-08 Test Time: 17:15:57 Abe Teacher: VIET MEASUREMENT RESULTS: Intervals: Rate: 73 NM: 150 QRSD: 74 QT: 372 QTc: 409 [place]: P: 44 NM: 150 QRS: 63 T: 41 INTERPRETIVE STATEMENTS: Normal sinus rhythm with sinus arrhythmia Cannot rule out Anterior infarct, age undetermined Abnormal ECG Compared to ECG 02/05/2020 20:14:50 Myocardial infarct finding now present Sinus tachycardia no longer present Electronically Signed On 02-09-20 14:04:47 CANNED FOOD RECONDITIONING INSPECTOR by Javon Carranza
== END 2020-02-08 17:53 | disposition home or self-care (01) ==
LOC: ER 15:50
DX: U07.1 COVID-19 (principal); F41.9 Anxiety disorder, unspecified; F17.210 Nicotine dependence, cigarettes, uncomplicated
CPT/HCPCS: 71045; 93005; 99283

== ENCOUNTER 2020-03-22 17:04 | Emergency (ER) | payer OTHER ==
[2020-03-22 17:52] LABS: Urine Blood NEGATIVE (NEG); Urine Glucose NEGATIVE (NEG); Urine Protein NEGATIVE (NEG); Urine Specific Gravity >1.030 (1.005-1.030)
[2020-03-22 17:59] LABS: Absolute Lymphocytes (CBC) 3.7 K/uL (0.7-4.9); Basophils % 0.9 % (0-1.3); Hematocrit 40.8 % (36.0-45.0); MPV 7.4 fL (7.6-11.3); RBC Red Blood Cell Count 5.15 M/uL (3.86-4.86)
[2020-03-22 18:15] LABS: BUN Blood Urea Nitrogen 12 mg/dL (7-18); Bicarbonate 23 mmol/L (21-32); Glucose Level 114 mg/dL (74-106); HCG, Quantitative 175 mIU/mL (1-3); Potassium 3.7 mmol/L (3.5-5.1); Sodium Level 140 mmol/L (136-145)
--- NOTE | 2020-03-22 19:13 | ER ---
Nurse's Notes [facility] Name: Goyo Solorio Age: 35 yrs Sex: Female : 1985 Arrival Date: 03/22/2020 Time: 17:06 Bed 13 Private MD: Diagnosis: state;Lower abdominal pain, unspecified Presentation: 03/22 17:09 Chief complaint: Patient states: Lower abd pain for 3 days. N/V last night. No fever. ll1 LMP:01/26/20. Coronavirus screen: Client denies travel out of the [place] in the last 14 days. At this time, the client does not indicate any symptoms associated with coronavirus-19. Ebola Screen: Patient denies travel to an Ebola-affected area in the 21 days before illness onset. Initial Sepsis Screen: Does the patient meet any 2 criteria? HR > 90 bpm. No. Patient's initial sepsis screen is negative. Does the patient have a suspected source of infection? Yes: Acute abdominal pain. Risk Assessment: Do you want to hurt yourself or someone else? Patient reports no desire to harm self or others. Onset of symptoms was March 20, 2020. 17:09 Method Of Arrival: Ambulatory ll1 17:09 Acuity: EUGENIO 3 ll1 Historical: - Allergies: 17:11 No Known Allergies; ll1 - PMHx: 17:11 Anxiety; ll1 - PSHx: 17:11 IUD removal; Appendectomy; ll1 - Immunization history:: Flu vaccine is not up to date. - Social history:: Smoking status: Patient reports the use of cigarette tobacco products, denies chronic smoking, but will smoke occasionally. Screenin:25 Abuse screen: Denies threats or abuse. Nutritional screening: No deficits noted. vg1 Tuberculosis screening: No symptoms or risk factors identified. Fall Risk None identified. Assessment: 17:24 General: Appears in no apparent distress. comfortable, Behavior is calm, cooperative. vg1 Pain: Complains of pain in pelvis Pain currently is 4 out of 10 on a pain scale. at worst was 8 out of 10 on a pain scale. Neuro: Level of Consciousness is awake, alert, obeys commands, Oriented to person, place, time, situation. Cardiovascular: Patient's skin is warm and dry. Respiratory: Airway is patent Respiratory effort is even, unlabored. GI: Bowel sounds present X 4 quads. Abd is soft and non tender X 4 quads. Reports nausea, vomiting. : No signs and/or symptoms were reported regarding the genitourinary system. EENT: No signs and/or symptoms were reported regarding the EENT system. Derm: Skin is intact, is healthy with good turgor. Musculoskeletal: Circulation, motion, and sensation intact. 18:40 Reassessment: Patient appears in no apparent distress at this time. No changes from [facility] previously documented assessment. Patient and/or family updated on plan of care and expected duration. Pain level reassessed. Patient is alert, oriented x 3, equal unlabored respirations, skin warm/dry/pink. Vital Signs: 17:09 BP 116 / 70; Pulse 104; Resp 16; Temp 97.6; Pulse Ox 98% ; Weight 81.65 kg; Height 5 ll1 ft. 1 in. (154.94 cm); Pain 4/10; 17:25 BP 101 / 52; Pulse 100; Resp 14; Pulse Ox 100% on R/A; vg1 18:30 BP 94 / 78; Pulse 100; Resp 16; Pulse Ox 100% on R/A; vg1 17:09 Body Mass Index 34.01 (81.65 kg, 154.94 cm) 1 ED Course: 17:06 Patient arrived in ED. mr 17:11 Triage completed. 1 17:11 Tess Roberto FNP-C [facility]. kb 17:11 Mike Veliz MD is Attending Physician. kb 17:11 Arm band placed on Patient placed in an exam room, on a stretcher. ll1 17:13 Renuka Ruelas, RN is Primary Nurse. vg1 17:25 Patient has correct armband on for positive identification. Bed in low position. Call [facility] light in reach. 17:46 Initial lab(s) drawn, by ar, sent to lab. Inserted saline lock: 20 gauge in right vg1 antecubital area, using aseptic technique. Blood collected. 18:41 US at bedside. vg1 19:33 No provider procedures requiring assistance completed. IV discontinued, intact, vg1 bleeding controlled, No redness/swelling at site. Pressure dressing applied. 20:19 US Transvaginal Ob In Process Unspecified. EDMS Administered Medications: No medications were administered Outcome: 19:13 Discharge ordered by . kb 19:33 Discharged to home ambulatory. vg1 19:33 Condition: stable 19:33 Discharge instructions given to patient, Instructed on discharge instructions, follow up and referral plans. Demonstrated understanding of instructions, follow-up care. 19:33 Patient left the ED. vg1 Signatures: Dispatcher [employer] EDGA Tess Roberto, KHUSHI LUCIANO-Lanie Lazo Victoria, RN RN vg1 Paul Pennington RN RN ll1
--- NOTE | 2020-03-22 19:13 | EDPHYS ---
Physician Documentation [facility] Name: Goyo Solorio Age: 35 yrs Sex: Female : 1985 Arrival Date: 03/22/2020 Time: 17:06 Bed 13 Private MD: ED Physician Mike Veliz HPI: 03/22 18:20 This 35 yrs old Female presents to ER via Ambulatory with complaints of kb Abdominal Pain. 18:20 The patient presents with abdominal pain suprapubic. Onset: The symptoms/episode kb began/occurred 2 day(s) ago. The symptoms do not radiate. Associated signs and symptoms: none. The symptoms are described as constant. Modifying factors: The symptoms are alleviated by nothing, the symptoms are aggravated by nothing. Severity of pain: At its worst the pain was mild moderate in the emergency department the pain is unchanged. The patient has not experienced similar symptoms in the past. The patient has not recently seen a physician. Pt reports suprapubic pain for 2 days. Denies fever. LMP 01/28/20. Historical: - Allergies: 17:11 No Known Allergies; ll1 - PMHx: 17:11 Anxiety; ll1 - PSHx: 17:11 IUD removal; Appendectomy; ll1 - Immunization history:: Flu vaccine is not up to date. - Social history:: Smoking status: Patient reports the use of cigarette tobacco products, denies chronic smoking, but will smoke occasionally. ROS: 18:14 Constitutional: Negative for fever, chills, and weight loss, Cardiovascular: Negative kb for chest pain, palpitations, and edema, Respiratory: Negative for shortness of breath, cough, wheezing, and pleuritic chest pain, Back: Negative for injury and pain, MS/Extremity: Negative for injury and deformity, Skin: Negative for injury, rash, and discoloration, Neuro: Negative for headache, weakness, numbness, tingling, and seizure. 18:14 Abdomen/GI: Positive for abdominal pain, of the suprapubic area. Exam: 18:19 Constitutional: This is a well developed, well nourished patient who is awake, alert, kb and in no acute distress. Head/Face: Normocephalic, atraumatic. Cardiovascular: Regular rate and rhythm with a normal S1 and S2. No gallops, murmurs, or rubs. Normal PMI, no JVD. No pulse deficits. Respiratory: Lungs have equal breath sounds bilaterally, clear to auscultation and percussion. No rales, rhonchi or wheezes noted. No increased work of breathing, no retractions or nasal flaring. Skin: Warm, dry with normal turgor. Normal color with no rashes, no lesions, and no evidence of cellulitis. MS/ Extremity: Pulses equal, no cyanosis. Neurovascular intact. Full, normal range of motion. Neuro: Awake and alert, GCS 15, oriented to person, place, time, and situation. Cranial nerves II-XII grossly intact. Motor strength 5/5 in all extremities. Sensory grossly intact. Cerebellar exam normal. Normal gait. 18:19 Abdomen/GI: Inspection: abdomen appears normal, Bowel sounds: normal, Palpation: soft, in all quadrants, mild abdominal tenderness, in the suprapubic area. Vital Signs: 17:09 BP 116 / 70; Pulse 104; Resp 16; Temp 97.6; Pulse Ox 98% ; Weight 81.65 kg; Height 5 ll1 ft. 1 in. (154.94 cm); Pain 4/10; 17:25 BP 101 / 52; Pulse 100; Resp 14; Pulse Ox 100% on R/A; vg1 18:30 BP 94 / 78; Pulse 100; Resp 16; Pulse Ox 100% on R/A; vg1 17:09 Body Mass Index 34.01 (81.65 kg, 154.94 cm) ll1 MDM: 17:13 Patient medically screened. kb 18:15 Data reviewed: vital signs, nurses notes. Data interpreted: Pulse oximetry: on room air kb is 100 %. Interpretation: normal. 18:33 Counseling: I had a detailed discussion with the patient and/or guardian regarding: the kb historical points, exam findings, and any diagnostic results supporting the discharge/admit diagnosis, lab results, radiology results, the need for outpatient follow up, an OB/Gyne specialist, to return to the emergency department if symptoms worsen or persist or if there are any questions or concerns that arise at home. 03/22 17:22 Order name: Quantitative Hcg kb 03/22 17:22 Order name: Abo/rh Typing kb 03/22 17:22 Order name: Basic Metabolic Panel kb 03/22 17:22 Order name: CBC with Diff kb 03/22 17:23 Order name: HCG, Quantitative; Complete Time: 18:23 EDMS 03/22 17:23 Order name: ABO/RH typing; Complete Time: 18:41 EDMS 03/22 17:22 Order name: Urine Test (obtain specimen); Complete Time: 17:46 kb 03/22 17:22 Order name: IV Saline Lock; Complete Time: 17:46 kb 03/22 17:22 Order name: Labs collected and sent; Complete Time: 17:46 kb 03/22 17:22 Order name: US Transvaginal Ob kb 03/22 17:23 Order name: Basic Metabolic Panel; Complete Time: 18:23 EDMS 03/22 17:23 Order name: CBC with Automated Diff; Complete Time: 18:01 EDMS 03/22 17:23 Order name: Urine --Ancillary (enter results); Complete Time: 17:53 kb 03/22 17:23 Order name: Urine Dipstick--Ancillary (enter results); Complete Time: 17:53 kb 03/22 17:22 Order name: NPO; Complete Time: 17:46 kb 03/22 17:22 Order name: Urine Dipstick-Ancillary (obtain specimen); Complete Time: 17:46 kb Administered Medications: No medications were administered Disposition: 03/23 14:41 Co-signature as Attending Physician, Mike Veliz MD I agree with the assessment and nicol plan of care. Disposition: 03/22/20 19:13 Discharged to Home. Impression: state, Lower abdominal pain, unspecified. - Condition is Stable. - Discharge Instructions: Abdominal Pain During , [id number]. - Medication Reconciliation Form, Thank You Letter, Antibiotic Education, Prescription Opioid Use form. - Follow up: Emergency Department; When: As needed; Reason: Worsening of condition. Follow up: Private Physician; When: 2 - 3 days; Reason: Recheck today's complaints, Continuance of care, Re-evaluation by your physician. Signatures: Dispatcher [employer] Tess Lombardi, CONTINUOUS YARN DYEING MACHINE OPERATOR-C Mike Fragoso MD MD cha Garcia, Victoria, RN RN vg1 Paul Pennington RN RN ll1 Corrections: (The following items were deleted from the chart) 03/22 19:33 19:13 03/22/2020 19:13 Discharged to Home. Impression: state; Lower abdominal vg1 pain, unspecified. Condition is Stable. Forms are Medication Reconciliation Form, Thank You Letter, Antibiotic Education, Prescription Opioid Use. Follow up: Emergency Department; When: As needed; Reason: Worsening of condition. Follow up: Private Physician; When: 2 - 3 days; Reason: Recheck today's complaints, Continuance of care, Re-evaluation by your physician. kb
[2020-03-22 19:39] VITALS: TEMP 97.6
[2020-03-22 19:40] VITALS: O2SAT 100
[2020-03-22 19:41] VITALS: BP 94/78
--- NOTE | 2020-03-22 20:37 | RAD REPORT ---
EXAM DESCRIPTION: US - Transvaginal OB - 03/22/2020 8:19 pm CLINICAL HISTORY: ABD CRAMPING, COMPARISON: Transvaginal OB dated 08/20/2016 FINDINGS: A definitive normal gestational sac is not seen. There is a vaguely defined oblong irregul chuy-shaped cystic area in the fundus of the endometrium present. Is unclear if this represents a pati e gestational sac. No yolk sac or embryo detected. The maternal adnexa and ovaries are within normal limits. Normal Doppler blood flow was demonstrated to both ovaries. IMPRESSION: [place] irregularly-shaped cystic areas seen in the fundal endometrium. A definitive norm al gestational sac is not seen within the uterus. Advise correlation with serial HCG levels and follo w-up pelvic sonography in 10-12 days.
== END 2020-03-22 19:33 | disposition home or self-care (01) ==
LOC: ER 17:04
DX: O26.891 Other specified pregnancy related conditions, first trimester (principal); O99.331 Smoking (tobacco) complicating pregnancy, first trimester; F17.210 Nicotine dependence, cigarettes, uncomplicated; Z3A.00 Weeks of gestation of pregnancy not specified
CPT/HCPCS: 36415; 76817; 80048; 81003; 81025; 84702; 85025; 86900; 86901; 99283

== ENCOUNTER 2020-03-31 08:16 | Emergency (ER) | payer OTHER ==
--- OUTSIDE RECORDS SUMMARY | 2020-03-31 08:19 | XMS REPORT | Continuity of Care Document ---
:1985 Author Organization [facility] t Address [address] [place] [address] Care Team Providers Name Role Phone Mariah [...] Clear s 00:00: Hough 00 [facility] No Known DA Active U 2012-02 [facility] Allergie 0-06 Clear s 00:00: Hough 00 [facility] Medications This patient has no known medications. Procedures This patient has no known procedures. Encounters Start End Encounter Admission Attending Care Care Encounter Source Date/Time Date/Time Type Type Clinicians Facility Department ID 2019-09-26 2019-09-26 Patient BijanMADAN [id number] 00:00:00 00:00:00 Secure Msg Yoseph De La Fuente [id number] [place] 4.2.7.2.686 Professjoon [phone] [address] 2019-09-21 2019-09-21 Hospital Bijan [facility] [id number] 11:10:44 23:59:00 Encounter Wondiful A [place] [id number] [place] 4.2.7.2.686 [place] [id number] 2019-09-21 2019-09-21 [facility] Bijan [facility] [id number] 11:00:00 11:09:00 Encounter Wondiful A [place] [id number] [place] 4.2.7.2.686 [place] [id number] 2019-09-21 2019-09-21 [facility] Bijan [facility] [id number] 09:56:26 10:59:00 Encounter Wondiful A [place] [id number] [place] 4.2.7.2.686 [place] [id number] 2019-09-21 2019-09-21 Case Bijan [facility] [id number] 00:00:00 00:00:00 Management Wondiful A [place] [id number] [place] 4.2.7.2.686 Profess[place] [phone] [address] 2019-09-21 2019-09-21 Patient Bijan [facility] [id number] 00:00:00 00:00:00 Secure Msg Wondiful A [place] [id number] [place] 4.2.7.2.686 Professio [phone] [address] 2019-09-20 2019-09-20 Laboratory Only, [facility] [id number] 10:01:43 10:16:43 Only Test [place] 350.1.13.10 [place] 4.2.7.2.686 [place] [id number] 2019-09-20 2019-09-20 Activity Therapy Teacher Naomi, [facility] [id number] 09:55:41 10:10:41 Visit Lab Main [place] 350.1.13.10 [place] 4.2.7.2.686 Profess[place] [phone] [facility] 353 [facility] 2019-09-20 2019-09-20 Orders Doctor KEARA [id number] 00:00:00 00:00:00 Only Unassigned, CASI 350.1.13.10 [facility] 4.2.7.2.686 [id number] 2019-09-19 2019-09-19 [facility] 1.2.840.114 [id number] 13:45:12 15:57:17 ne Visit Yoseph De La [place]ente 350.1.13.10 [place] 4.2.7.2.686 Professio [phone] [address] 2019-09-19 2019-09-19 Telephone Bijan [facility] [id number] 00:00:00 00:00:00 Wondiful A [facility] 350.1.13.10 [place] 4.2.7.2.686 Professio [phone] [place] [address] [address] Results Test Description Test [...] 65 IUnit/L 20-125 N code = ALKP) [id number] 10:12:00 Test Item Value Reference Range Interpretation [...] may jett y by method. COMPREHENSIVE METABOLIC [id number] 10:11:00 Test Item Value Reference Range Interpretation [...] TOTAL (test IUnit/L 20-125 code = ALKP) [id number] 10:11:00 Test Item Value Reference Range Interpretation [...] results may jett y by method. PROTHROMBIN [id number] 09:59:00 Test Item Value Reference Range Interpretation [...] Infarction (t o prevent recurre nt infarct). [id number] 09:59:00 Test Item Value Reference Range Interpretation [...] TESTS AND APPROPRIATECLIN ICAL EUALUATIONS. CBC W/AUTO [id number] 09:56:00 Test Item Value Reference Range Interpretation [...] code = MDIFF) - XR CHEST 1 [id number] 09:56:00 FAX: Dallas Cain MD [phone] [place]: St: PRE Name: QUINNRAGHAVENDRA [facility] : 1985 Age/S: 34/F [address] [place] [address] Unit#: [id number] Loc: [place] [address] Phys: Dallas Cain MD Acct: [id number] Dis Date: Status: PRE ER PHONE #: [phone] Exam Date: 08/22/2019 1003 FAX #: [phone] Reason: Chest Pain EXAMS: CPT CODE: [id number] XR CHEST 1 V 66117 PROCEDURE: CHEST SINGLE VIEW INDICATION: Chest Pain COMPARISON: There are no previous relevant studies available for correlation. FINDINGS: The lungs are clear. No pleural abnormality. The cardiomediastinalsilhouette is normal for projection. The bony thorax is intact. IMPRESSION: Normal radiograph. SL: [id number] at 0956 Reported and signed by: Samson Sousa M.D. CC: Dallas Cain MD Technologist: Lilly Agarwal RT(R) Trnscrd Date/Time/By: 08/22/2019 (0956) : By: Krissy Orig Print D/T: S: 08/22/2019 (2571) PAGE 1 Signed Report
[2020-03-31] MEDS ORDERED: ACETAMINOPHEN 325 MG TABLET ONE (10:47)
--- NOTE | 2020-03-31 11:34 | RAD REPORT ---
EXAM DESCRIPTION: CT - Head Brain Wo Cont - 03/31/2020 11:25 am CLINICAL HISTORY: HEADACHE Headache, drowsiness COMPARISON: Head Brain Wo Cont dated 11/21/2019; Head Brain Wo Cont dated 08/21/2019 TECHNIQUE: All CT scans are performed using dose optimization technique as appropriate and may inclu de automated exposure control or mA/KV adjustment according to patient size. FINDINGS: No intracranial hemorrhage, hydrocephalus or extra-axial fluid collection.No areas of brai n edema or evidence of midline shift. The paranasal sinuses and mastoids are clear. The calvarium is intact. IMPRESSION: No acute intracranial abnormality.
--- NOTE | 2020-03-31 12:05 | EDPHYS ---
Physician Documentation [facility] Name: Goyo Solorio Age: 35 yrs Sex: Female : 1985 Arrival Date: 03/31/2020 Time: 08:19 Bed 11 Private MD: ED Physician Edu Rucker HPI: 03/31 11:23 This 35 yrs old Female presents to ER via Ambulatory with complaints of rn headache. 11:23 The patient complains of pain to the right head and face. The patient describes the rn headache as aching. Onset: The symptoms/episode began/occurred 2 day(s) ago. Severity of symptoms: At its worst the pain was moderate, in the emergency department the pain is unchanged. The symptoms are alleviated by over the counter pain medication, Tylenol, the symptoms are aggravated by lights. The patient has not experienced similar symptoms in the past. The patient has not recently seen a physician. Reports right sided headache and pressure, radiates to neck, no trauma, reports 5 weeks , no fever/focal neuro complaint. Came in because no hx of migraines and reports light sensitivity. . Historical: - Allergies: 08:54 No Known Allergies; iw - Home Meds: 08:54 None [Active]; iw - PMHx: 08:54 Anxiety; iw - PSHx: 08:54 IUD removal; Appendectomy; iw - Immunization history:: Adult Immunizations. - Social history:: Smoking status: Patient reports the use of cigarette tobacco products, denies chronic smoking, but will smoke occasionally. - Family history:: not pertinent. - Hospitalizations: : No recent hospitalization is reported. ROS: 11:23 Constitutional: Negative for fever, chills, and weight loss, Eyes: Negative for injury, rn pain, redness, and discharge, Neck: Negative for injury,and swelling, Cardiovascular: Negative for chest pain, palpitations, and edema, Respiratory: Negative for shortness of breath, cough, wheezing, and pleuritic chest pain, Abdomen/GI: Negative for abdominal pain, nausea, vomiting, diarrhea, and constipation, MS/Extremity: Negative for injury and deformity, Skin: Negative for injury, rash, and discoloration, Neuro: Negative for weakness, numbness, tingling, and seizure. 11:23 ENT: Negative for injury, pain, and discharge. rn Exam: 11:23 Constitutional: This is a well developed, well nourished patient who is awake, alert, rn and in no acute distress. Head/Face: Normocephalic, atraumatic. Eyes: Pupils equal round and reactive to light, extra-ocular motions intact. Lids and lashes normal. Conjunctiva and sclera are non-icteric and not injected. Cornea within normal limits. Periorbital areas with no swelling, redness, or edema. ENT: No stridor, no oral swelling, no dental abscess Neck: Trachea midline, no masses, no crepitus, pulse equal Skin: Warm, dry with normal turgor. Normal color with no rashes, no lesions, and no evidence of cellulitis. MS/ Extremity: Pulses equal, no cyanosis. Neurovascular intact. Full, normal range of motion. Equal circumference. Neuro: Awake and alert, GCS 15, oriented to person, place, time, and situation. Cranial nerves II-XII grossly intact. Motor strength 5/5 in all extremities. Sensory grossly intact. Vital Signs: 08:51 BP 124 / 83; Pulse 99; Resp 16; Temp 98.5; Pulse Ox 100% on R/A; Weight 83.91 kg; iw Height 5 ft. 1 in. (154.94 cm); Pain 8/10; 10:50 BP 107 / 78; Pulse 95; Resp 16 S; Pulse Ox 100% on R/A; aa5 08:51 Body Mass Index 34.96 (83.91 kg, 154.94 cm) iw Carol Coma Score: 12:03 Eye Response: spontaneous(4). Verbal Response: oriented(5). Motor Response: obeys rn commands(6). Total: 15. MDM: 10:11 Patient medically screened. rn 12:03 Differential diagnosis: migraine, sinusitis, tension headache, vasomotor headache, rn MONO, viral illness. Data reviewed: vital signs, nurses notes, lab test result(s), radiologic studies, CT scan, and as a result, I will discharge patient. Counseling: I had a detailed discussion with the patient and/or guardian regarding: the historical points, exam findings, and any diagnostic results supporting the discharge/admit diagnosis, lab results, radiology results, the need for outpatient follow up, to return to the emergency department if symptoms worsen or persist or if there are any questions or concerns that arise at home. Response to treatment: the patient's symptoms have mildly improved after treatment, and as a result, I will discharge patient. Special discussion: I discussed with the patient/guardian in detail that at this point there is no indication for admission to the hospital. It is understood, however, that if the symptoms persist or worsen the patient needs to return immediately for re-evaluation. ED course: [place] neg, CT head negative. Pt requested ct head due to family member with aneurysm in past. Now states her teenage son had similar symptoms a few days ago and is now better. . 03/31 10:22 Order name: [place] Screen Profile; Complete Time: 11:47 rn 03/31 11:05 Order name: CT Head Brain wo Cont; Complete Time: 11:38 rn Administered Medications: 10:40 Drug: Tylenol 650 mg Route: PO; aa5 12:20 Follow up: Response: No adverse reaction aa5 Disposition: 03/31/20 12:04 Discharged to Home. Impression: Headache. - Condition is Stable. - Discharge Instructions: General Headache Without Cause. - Prescriptions for Keflex 500 mg Oral Capsule - take 1 capsule by ORAL route every 12 hours for 10 days; 20 capsule. - Medication Reconciliation Form, Thank You Letter, Antibiotic Education, Prescription Opioid Use form. - Follow up: Private Physician; When: As needed; Reason: Recheck today's complaints, Re-evaluation by your physician. - Problem is new. - Symptoms have improved. Signatures: Dispatcher [employer] Silva Garcia RN RN iw Nieto, Roman, MD MD rn Calderon, Audri, RN RN aa5 Corrections: (The following items were deleted from the chart) 12:26 12:04 03/31/2020 12:04 Discharged to Home. Impression: Headache. Condition is Stable. aa5 Forms are Medication Reconciliation Form, Thank You Letter, Antibiotic Education, Prescription Opioid Use. Follow up: Private Physician; When: As needed; Reason: Recheck today's complaints, Re-evaluation by your physician. Problem is new. Symptoms have improved. rn
--- NOTE | 2020-03-31 12:05 | ER ---
Nurse's Notes [facility] Name: Goyo Solorio Age: 35 yrs Sex: Female : 1985 Arrival Date: 03/31/2020 Time: 08:19 Bed 11 Private MD: Diagnosis: Headache Presentation: 03/31 08:51 Chief complaint: Patient states: has pain to right side of head and her face, radiates iw into her neck, started 2 days ago, goes away with tylenol but comes back, feels like when she moves her eye it makes the pain worse , pt is approx 6 weeks . Coronavirus screen: At this time, the client does not indicate any symptoms associated with coronavirus-19. Ebola Screen: Patient negative for fever greater than or equal to 101.5 degrees Fahrenheit, and additional compatible Ebola Virus Disease symptoms Patient denies exposure to infectious person. Patient denies travel to an Ebola-affected area in the 21 days before illness onset. No symptoms or risks identified at this time. Initial Sepsis Screen: Does the patient meet any 2 criteria? No. Patient's initial sepsis screen is negative. Does the patient have a suspected source of infection? No. Patient's initial sepsis screen is negative. Risk Assessment: Do you want to hurt yourself or someone else? Patient reports no desire to harm self or others. Onset of symptoms was March 29, 2020. 08:51 Method Of Arrival: Ambulatory iw 08:51 Acuity: EUGENIO 3 iw Historical: - Allergies: 08:54 No Known Allergies; iw - Home Meds: 08:54 None [Active]; iw - PMHx: 08:54 Anxiety; iw - PSHx: 08:54 IUD removal; Appendectomy; iw - Immunization history:: Adult Immunizations. - Social history:: Smoking status: Patient reports the use of cigarette tobacco products, denies chronic smoking, but will smoke occasionally. - Family history:: not pertinent. - Hospitalizations: : No recent hospitalization is reported. Screenin:00 Abuse screen: Denies threats or abuse. Nutritional screening: No deficits noted. aa5 Tuberculosis screening: No symptoms or risk factors identified. Fall Risk None identified. Assessment: 10:00 General: Appears uncomfortable, Behavior is cooperative, anxious, Reports being aa5 approximately 5 weeks . . Pain: Complains of pain in right sikh Pain radiates to right eye, right side of neck and right side of head Pain currently is 8 out of 10 on a pain scale. Quality of pain is described as aching, radiating, Is continuous. Neuro: Level of Consciousness is awake, alert, obeys commands, Oriented to person, place, time, situation. Cardiovascular: Patient's skin is warm and dry. Respiratory: Airway is patent Respiratory effort is even, unlabored, Respiratory pattern is regular, symmetrical. GI: Abdomen is round Patient currently denies nausea, vomiting. : No signs and/or symptoms were reported regarding the genitourinary system. EENT: Denies dental pain . Derm: Skin is pink, warm \T\ dry. Musculoskeletal: Range of motion: intact in all extremities. 10:50 Reassessment: Patient is alert, oriented x 3, equal unlabored respirations, skin aa5 warm/dry/pink. 12:20 Reassessment: Patient is alert, oriented x 3, equal unlabored respirations, skin aa5 warm/dry/pink. 12:20 General: Appears comfortable, Behavior is calm, cooperative. aa5 Vital Signs: 08:51 BP 124 / 83; Pulse 99; Resp 16; Temp 98.5; Pulse Ox 100% on R/A; Weight 83.91 kg; iw Height 5 ft. 1 in. (154.94 cm); Pain 8/10; 10:50 BP 107 / 78; Pulse 95; Resp 16 S; Pulse Ox 100% on R/A; aa5 08:51 Body Mass Index 34.96 (83.91 kg, 154.94 cm) iw Carol Coma Score: 12:03 Eye Response: spontaneous(4). Verbal Response: oriented(5). Motor Response: obeys rn commands(6). Total: 15. ED Course: 08:19 Patient arrived in ED. mr 08:53 Triage completed. iw 08:55 Arm band placed on. iw 10:00 Patient has correct armband on for positive identification. aa5 10:11 Edu Rucker MD is Attending Physician. rn 10:26 Aida Castillo RN is Primary Nurse. aa5 10:45 Initial lab(s) drawn, by me, sent to lab. aa5 11:25 CT Head Brain wo Cont In Process Unspecified. EDMS 12:20 Patient did not have IV access during this emergency room visit. aa5 12:20 No provider procedures requiring assistance completed. aa5 Administered Medications: 10:40 Drug: Tylenol 650 mg Route: PO; aa5 12:20 Follow up: Response: No adverse reaction aa5 Outcome: 12:04 Discharge ordered by . rn 12:20 Discharged to home ambulatory. aa5 12:20 Condition: stable 12:20 Discharge instructions given to patient, Instructed on discharge instructions, follow up and referral plans. medication usage, Demonstrated understanding of instructions, follow-up care, medications, Prescriptions given X 1. 12:26 Patient left the ED. aa5 Signatures: Dispatcher [employer] EDGA Lanie Mccarthy Silva Lux RN RN iw Edu Rucker MD MD rn Calderon, Audri, RN RN aa5 Corrections: (The following items were deleted from the chart) 08:55 08:51 Chief complaint: Patient states: has pain to right side of head and her face, iw radiates into her neck, started 2 days ago, goes away with tylenol but comes back, feels like when she moves her eye it makes the pain worse iw 16:10 12:20 Discharge instructions given to patient, Instructed on discharge instructions, aa5 follow up and referral plans. Demonstrated understanding of instructions, follow-up care, aa5
[2020-03-31 12:39] VITALS: TEMP 98.5; O2SAT 100
[2020-03-31 12:40] VITALS: BP 107/78
== END 2020-03-31 12:26 | disposition home or self-care (01) ==
LOC: ER 08:16
DX: O26.891 Other specified pregnancy related conditions, first trimester (principal); O99.331 Smoking (tobacco) complicating pregnancy, first trimester; F17.210 Nicotine dependence, cigarettes, uncomplicated; Z3A.01 Less than 8 weeks gestation of pregnancy
CPT/HCPCS: 36415; 70450; 86308; 99284

== ENCOUNTER 2020-04-02 00:44 | Emergency (ER) | payer OTHER ==
--- OUTSIDE RECORDS SUMMARY | 2020-04-02 00:46 | XMS REPORT | Continuity of Care Document ---
:1985 Author Organization [facility] t Address [address] [place] [address] [place] [address] Care Team Providers Name Role Phone Jocelyn Knox Attending Clinician Payers Payer Name Policy Type Policy Number Effective Date Expiration Date S ource Problems This patient has no known problems. Allergies, Adverse Reactions, Alerts Allergy Allergy Status Severity Reaction(s) Onset Inactive Treating Comm ents Source Name Type Date Date Clinician No Known DA Active U [facility] Allergie 7-15 Clear s 00:00: Hough 00 [facility] No Known DA Active U 2012-02 [facility] Allergie 0-06 Clear s 00:00: Hough 00 [facility] Medications This patient has no known medications. Procedures This patient has no known procedures. Encounters Start End Encounter Admission Attending Care Care Encounter Source Date/Time Date/Time Type Type Clinicians Facility Department ID 2020-04-01 2020-04-01 MADAN Wilson [id number] 09:25:04 11:05:29 Dany Banks ENVIRONMENTAL COMMUNICATIONS SPECIALIST [id number] Visit REGIONAL 4.2.7.2.686 MATERNAL [id number] & CHILD [address] [place] [address] Results Test Description Test Time Test Comments [...] 65 IUnit/L 20-125 N code = ALKP) [id number] 10:12:00 Test Item Value Reference Range Interpretation [...] may jett y by method. COMPREHENSIVE METABOLIC [id number] 10:11:00 Test Item Value Reference Range Interpretation [...] TOTAL (test IUnit/L 20-125 code = ALKP) [id number] 10:11:00 Test Item Value Reference Range Interpretation [...] results may jett y by method. PROTHROMBIN [id number] 09:59:00 Test Item Value Reference Range Interpretation [...] Infarction (t o prevent recurre nt infarct). [id number] 09:59:00 Test Item Value Reference Range Interpretation [...] TESTS AND APPROPRIATECLIN ICAL EUALUATIONS. CBC W/AUTO [id number] 09:56:00 Test Item Value Reference Range Interpretation [...] code = MDIFF) - XR CHEST 1 [id number] 09:56:00 FAX: Dallas Cain MD [phone] [place]: St: PRE Name: RAGHAVENDRA QUINN [facility] : 1985 Age/S: 34/F [address] [place] [address] Unit#: [id number] Loc: [place] [address] Phys: Dallas Cain MD Acct: [id number] Dis Date: Status: PRE ER PHONE #: [phone] Exam Date: 08/22/2019 100 FAX #: [phone] Reason: Chest Pain EXAMS: CPT CODE: [id number] XR CHEST 1 V 38121 PROCEDURE: CHEST SINGLE VIEW INDICATION: Chest Pain COMPARISON: There are no previous relevant studies available for correlation. FINDINGS: The lungs are clear. No pleural abnormality. The cardiomediastinalsilhouette is normal for projection. The bony thorax is intact. IMPRESSION: Normal radiograph. SL: [id number] at 0956 Reported and signed by: Samson Sousa M.D. CC: Dallas Cain MD Technologist: RT Maddi(R) Trnscrd Date/Time/By: 08/22/2019 (0956) : By: ZaraL Orig Print D/T: S: 08/22/2019 (1003) PAGE 1 Signed Report
--- NOTE | 2020-04-02 01:58 | ER ---
Nurse's Notes [facility] Name: Goyo Solorio Age: 35 yrs Sex: Female : 1985 Arrival Date: 04/02/2020 Time: 00:45 Bed 7 Private MD: Diagnosis: Lymphangitis Presentation: 04/02 01:07 Chief complaint: Patient states: VILLELA, stiff neck, fever of 103, nausea and dizziness for em 2 days. Coronavirus screen: Client denies travel out of the [place] in the last 14 days. Ebola Screen: Patient negative for fever greater than or equal to 101.5 degrees Fahrenheit, and additional compatible Ebola Virus Disease symptoms Patient denies exposure to infectious person. Patient denies travel to an Ebola-affected area in the 21 days before illness onset. No symptoms or risks identified at this time. Initial Sepsis Screen: Does the patient meet any 2 criteria? HR > 90 bpm. No. Patient's initial sepsis screen is negative. Does the patient have a suspected source of infection? Yes: S/S of meningitis or endocarditis. Risk Assessment: Do you want to hurt yourself or someone else? Patient reports no desire to harm self or others. Onset of symptoms was March 31, 2020. 01:07 Method Of Arrival: Ambulatory em 01:07 Acuity: EUGENIO 3 em Historical: - Allergies: 01:10 No Known Allergies; em - PMHx: 01:10 Anxiety; em - PSHx: 01:10 IUD removal; Appendectomy; em - Immunization history:: Adult Immunizations up to date. - Social history:: Smoking status: Patient reports the use of cigarette tobacco products, denies chronic smoking, but will smoke occasionally. Screenin:07 Abuse screen: Denies threats or abuse. Nutritional screening: No deficits noted. em Tuberculosis screening: No symptoms or risk factors identified. Fall Risk None identified. Assessment: 01:07 General: Appears in no apparent distress. comfortable, Behavior is calm, cooperative, em appropriate for age, Reports fever for 1-2 days. Pain: Complains of pain in forehead and right sternocleidomastoid Pain currently is 7 out of 10 on a pain scale. Neuro: Level of Consciousness is awake, alert, obeys commands, Oriented to person, place, time, situation, Speech is normal, Facial symmetry appears normal, Reports photophobia. Cardiovascular: Capillary refill < 3 seconds Patient's skin is warm and dry. Respiratory: Airway is patent Respiratory effort is even, unlabored, Respiratory pattern is regular, symmetrical. GI: Reports nausea, vomiting. Derm: Skin is intact, is healthy with good turgor, Skin is pink, warm \T\ dry. Musculoskeletal: Capillary refill < 3 seconds, Range of motion: intact in all extremities. Vital Signs: 01:07 BP 109 / 83; Pulse 97; Resp 18; Temp 99.0(O); Pulse Ox 100% on R/A; Weight 83.91 kg; em Height 5 ft. 0 in. (152.40 cm); Pain 7/10; 01:07 Body Mass Index 36.13 (83.91 kg, 152.40 cm) em ED Course: 00:45 Patient arrived in ED. am2 00:59 Maximo Schaeffer MD is Attending Physician. tw4 01:07 Patient has correct armband on for positive identification. Bed in low position. Call em light in reach. Pulse ox on. NIBP on. 01:09 Triage completed. em 01:10 Arm band placed on. em 01:31 Emanuel Whaley, RN is Primary Nurse. em 02:21 No provider procedures requiring assistance completed. Patient did not have IV access em during this emergency room visit. Administered Medications: 02:21 Not Given (Physician Discretion): Fioricet - Esgic 325 mg-40 mg-50 mg 1 tab-caps PO onceem Outcome: 01:58 Discharge ordered by . tw4 02:21 Discharged to home ambulatory. em 02:21 Condition: stable 02:21 Discharge instructions given to patient, Instructed on discharge instructions, follow up and referral plans. Demonstrated understanding of instructions, follow-up care. 02:26 Patient left the ED. em Signatures: Emanuel Whaley RN RN em Shanon Montes De [place] am2 Maximo Schaeffer MD MD tw4 Corrections: (The following items were deleted from the chart) 01:35 01:07 Chief complaint: Patient states: VILLELA, stiff neck, fever of 103, nausea and em dizziness for 2 days ago em
--- NOTE | 2020-04-02 01:58 | EDPHYS ---
Physician Documentation [facility] Name: Goyo Solorio Age: 35 yrs Sex: Female : 1985 Arrival Date: 04/02/2020 Time: 00:45 Bed 7 Private MD: ED Physician Maximo Schaeffer HPI: 04/02 06:37 This 35 yrs old Female presents to ER via Ambulatory with complaints of Fever, tw4 Headache, Nausea, Dizziness, Neck Pain, >24Hrs Old. 06:37 The patient reports fever, not measured (subjective). Onset: The symptoms/episode tw4 began/occurred yesterday. Modifying factors: there are no obvious modifying factors. Associated signs and symptoms: Pertinent positives: headache. Severity of symptoms: At their worst the symptoms were mild in the emergency department the symptoms are unchanged. The patient has not experienced similar symptoms in the past. Historical: - Allergies: 01:10 No Known Allergies; em - PMHx: 01:10 Anxiety; em - PSHx: 01:10 IUD removal; Appendectomy; em - Immunization history:: Adult Immunizations up to date. - Social history:: Smoking status: Patient reports the use of cigarette tobacco products, denies chronic smoking, but will smoke occasionally. ROS: 06:37 Constitutional: Negative for fever, chills, and weight loss, Cardiovascular: Negative tw4 for chest pain, palpitations, and edema, Respiratory: Negative for shortness of breath, cough, wheezing, and pleuritic chest pain, Abdomen/GI: Negative for abdominal pain, nausea, vomiting, diarrhea, and constipation, Back: Negative for injury and pain, MS/Extremity: Negative for injury and deformity, Skin: Negative for injury, rash, and discoloration, Neuro: Negative for headache, weakness, numbness, tingling, and seizure. Exam: 06:37 Constitutional: This is a well developed, well nourished patient who is awake, alert, tw4 and in no acute distress. Head/Face: Normocephalic, atraumatic. 06:37 Cardiovascular: Regular rate and rhythm with a normal S1 and S2. No gallops, murmurs, or rubs. Normal PMI, no JVD. No pulse deficits. Respiratory: Lungs have equal breath sounds bilaterally, clear to auscultation and percussion. No rales, rhonchi or wheezes noted. No increased work of breathing, no retractions or nasal flaring. Abdomen/GI: Soft, non-tender, with normal bowel sounds. No distension or tympany. No guarding or rebound. No evidence of tenderness throughout. 06:37 ENT: Posterior pharynx: Tonsils: bilaterally enlarged, erythema, that is moderate. 06:37 Neck: External neck: is normal, tenderness, of the right sternocleidomastoid, ROM/movement: Meningeal signs: are not present, Kernig's sign is negative, Brudzinski's sign is negative. 06:38 Neck: External neck: lymphadenopathy anterior. tw4 Vital Signs: 01:07 BP 109 / 83; Pulse 97; Resp 18; Temp 99.0(O); Pulse Ox 100% on R/A; Weight 83.91 kg; em Height 5 ft. 0 in. (152.40 cm); Pain 7/10; 01:07 Body Mass Index 36.13 (83.91 kg, 152.40 cm) em MDM: 01:58 Patient medically screened. tw4 06:37 Differential diagnosis: viral Infection, bacterial infection, URI, pneumonia UTI, tw4 gastroenteritis. Data reviewed: vital signs, nurses notes. Counseling: I had a detailed discussion with the patient and/or guardian regarding: the historical points, exam findings, and any diagnostic results supporting the discharge/admit diagnosis. Special discussion: I discussed with the patient/guardian in detail that at this point there is no indication for admission to the hospital. It is understood, however, that if the symptoms persist or worsen the patient needs to return immediately for re-evaluation. Administered Medications: 02:21 Not Given (Physician Discretion): Fioricet - Esgic 325 mg-40 mg-50 mg 1 tab-caps PO onceem Disposition: 04/02/20 01:58 Discharged to Home. Impression: Lymphangitis. - Condition is Stable. - Discharge Instructions: Lymphangitis, Adult. - Medication Reconciliation Form, Thank You Letter, Antibiotic Education, Prescription Opioid Use form. - Follow up: Private Physician; When: Upon discharge from the Emergency Department; Reason: Recheck today's complaints, Continuance of care, Re-evaluation by your physician. Signatures: Emanuel Whaley RN RN em Maximo Schaeffer MD MD tw4 Corrections: (The following items were deleted from the chart) 02:26 01:58 04/02/2020 01:58 Discharged to Home. Impression: Lymphangitis. Condition is em Stable. Forms are Medication Reconciliation Form, Thank You Letter, Antibiotic Education, Prescription Opioid Use. Follow up: Private Physician; When: Upon discharge from the Emergency Department; Reason: Recheck today's complaints, Continuance of care, Re-evaluation by your physician. tw4
[2020-04-02 02:31] VITALS: BP 109/83; TEMP 99; O2SAT 100
== END 2020-04-02 02:26 | disposition home or self-care (01) ==
LOC: ER 00:44
DX: I89.1 Lymphangitis (principal); F41.9 Anxiety disorder, unspecified; F17.210 Nicotine dependence, cigarettes, uncomplicated
CPT/HCPCS: 99283

== ENCOUNTER 2020-08-06 13:00 | Emergency (ER) | payer OTHER ==
--- OUTSIDE RECORDS SUMMARY | 2020-08-06 13:03 | XMS REPORT | Continuity of Care Document ---
:1985 Author Organization [facility] t Address [address] [place] [address] Care Team Providers Name Role Phone Jocelyn Knox Attending Clinician Ultrasound Attending Clinician Unavailable Owen LUCIANO N Attending Clinician Sophia Da Silva APN Attending Clinician Radha HERRERA, A Attending Clinician Unavailable Vilma LEES Attending Clinician Payers Payer Name Policy Type Policy Number Effective Date Expiration Date S ource Problems This patient has no known problems. Allergies, Adverse Reactions, Alerts Allergy Allergy Status Severity Reaction(s) Onset Inactive Treating Comm ents Source Name Type Date Date Clinician No Known DA Active U [facility] Allergie 7-15 Clear s 00:00: Hough 00 [facility] No Known DA Active U 2012-02 [facility] Allergie 0-06 Clear s 00:00: Hough 00 [facility] Medications This patient has no known medications. Procedures This patient has no known procedures. Encounters Start End Encounter Admission Attending Care Care Encounter Source Date/Time Date/Time Type Type Clinicians Facility Department ID 2020-07-30 2020-07-30 MADAN Aparicio [id number] 10:22:14 10:37:14 Roshunda R PILLOW AGENT [id number] Visit REGIONAL [id number] MATERNAL [id number] & CHILD 107 [facility] 2020-07-14 2020-07-14 Pipe Line Gauger Evelyn, [facility] [id number] 09:45:41 11:00:41 Visit Ang-m PILLOW AGENT [id number] REGIONAL [id number] MATERNAL [id number] & CHILD 369 [facility] 2020-07-14 2020-07-14 Case Owen, [facility] [id number] 00:00:00 00:00:00 Management Dolly Montoya PILLOW AGENT [id number] REGIONAL [id number] MATERNAL [id number] & CHILD 107 [facility] 2020-07-01 2020-07-01 Routine [facility] [id number] 13:52:00 14:58:28 Roshunda R PILLOW AGENT [id number] Visit REGIONAL [id number] MATERNAL [id number] & CHILD 107 [facility] 2020-07-01 2020-07-01 [facility] [id number] 00:00:00 00:00:00 Roshunda R PILLOW AGENT [id number] REGIONAL [id number] MATERNAL [id number] & CHILD 107 [facility] 2020-06-17 2020-06-17 Routine [facility] [id number] 08:48:55 09:25:15 Roshunda R PILLOW AGENT [id number] Visit REGIONAL [id number] MATERNAL [id number] & CHILD 107 [facility] 2020-06-03 2020-06-03 Emergency Da Silva, TRAUMA [id number] 20:19:00 22:12:00 Julio ROLON 350.1.13.10 4.2.7.2.686 [id number] 014 2020-05-13 2020-05-13 Routine MADAN Stephen [id number] 09:59:20 10:14:20 Roshunda R PILLOW AGENT 350.1.13.10 Visit REGIONAL [id number] MATERNAL [id number] & CHILD 107 [facility] 2020-04-29 2020-04-29 Telephone MADAN Stephen [id number] 00:00:00 00:00:00 Roshunda R PILLOW AGENT [id number] REGIONAL [id number] MATERNAL [id number] & CHILD 107 [facility] 2020-04-22 2020-04-22 Nurse KEARA Garcia [id number] 00:00:00 00:00:00 Triage Lynn LANCE 350.1.13.10 [place] [id number] 2020-04-09 2020-04-09 Case MADAN Stephen [id number] 00:00:00 00:00:00 Management Roshunda R PILLOW AGENT [id number] REGIONAL [id number] MATERNAL [id number] & CHILD 107 [facility] 2020-04-08 2020-04-08 Pipe Line Gauger Ultrasound, [facility] 1.2.840.114 [id number] 11:32:55 12:14:18 Visit [facility] PILLOW AGENT [id number] REGIONAL [id number] MATERNAL [id number] & CHILD 369 [facility] 2020-04-08 2020-04-08 Abstract MADAN Stephen [id number] 00:00:00 00:00:00 Roshunda R PILLOW AGENT [id number] REGIONAL [id number] MATERNAL [id number] & CHILD 107 [facility] 2020-04-02 2020-04-03 Emergency MADAN Esparza [id number] 23:15:00 01:12:00 [facility] [id number] [facility] [id number] [facility] [id number] [address] ([facility]) 2020-04-02 2020-04-02 Telephone MADAN Stephen [id number] 00:00:00 00:00:00 Rosnda R PILLOW AGENT 350.1.13.10 [facility] 4.2.7.2.686 MATERNAL [id number] & CHILD 107 [facility] 2020-04-02 2020-04-02 Susie Stephen [facility] [id number] 00:00:00 00:00:00 [facility] Edmondsa R PILLOW AGENT 350.1.13.10 [facility] 4.2.7.2.686 MATERNAL [id number] & CHILD 107 [facility] 2020-04-01 2020-04-01 Initial Zafar [facility] 1.2.840.114 [id number] 09:25:04 11:05:29 [facility] 350.1.13.10 Visit REGIONAL [id number] MATERNAL [id number] & CHILD 107 [facility] Results Test Description Test Time Test Comments [...] 65 IUnit/L 20-125 N code = ALKP) [id number] 10:12:00 Test Item Value Reference Range Interpretation [...] may jett y by method. COMPREHENSIVE METABOLIC [id number] 10:11:00 Test Item Value Reference Range Interpretation [...] TOTAL (test IUnit/L 20-125 code = ALKP) [id number] 10:11:00 Test Item Value Reference Range Interpretation [...] results may jett y by method. PROTHROMBIN [id number] 09:59:00 Test Item Value Reference Range Interpretation [...] Infarction (t o prevent recurre nt infarct). [id number] 09:59:00 Test Item Value Reference Range Interpretation [...] TESTS AND APPROPRIATECLIN ICAL EUALUATIONS. CBC W/AUTO [id number] 09:56:00 Test Item Value Reference Range Interpretation [...] code = MDIFF) - XR CHEST 1 [id number] 09:56:00 FAX: Dallas Cain MD [phone] Mcdonald: St: PRE Name: QUINNRAGHAVENDRA [facility] : 1985 Age/S: 34/F [address] [place] [address] Unit#: [id number] Loc: [place] [address] Phys: Dallas Cain MD Acct: [id number] Dis Date: Status: PRE ER PHONE #: [phone] Exam Date: 08/22/2019 1003 FAX #: [phone] Reason: Chest Pain EXAMS: CPT CODE: [id number] XR CHEST 1 V 91588 PROCEDURE: CHEST SINGLE VIEW INDICATION: Chest Pain COMPARISON: There are no previous relevant studies available for correlation. FINDINGS: The lungs are clear. No pleural abnormality. The cardiomediastinalsilhouette is normal for projection. The bony thorax is intact. IMPRESSION: Normal radiograph. SL: [id number] at 0956 Reported and signed by: Samson Sousa M.D. CC: Dallas Cain MD Technologist: Lilly Agarwal RT(R) Trnscrd Date/Time/By: 08/22/2019 (0956) : By: Krissy Orig Print D/T: S: 08/22/2019 (1003) PAGE 1 Signed Report
[2020-08-06] MEDS ORDERED: ACETAMINOPHEN 500 MG TAB ONE (14:02)
--- NOTE | 2020-08-06 15:24 | EDPHYS ---
Physician Documentation [facility] Name: Goyo Solorio Age: 35 yrs Sex: Female : 1985 Arrival Date: 08/06/2020 Time: 13:02 Bed DX4 Private MD: ED Physician Simba Duenas HPI: 08/06 14:54 This 35 yrs old Female presents to ER via Ambulatory with complaints of jr8 Anxiety, Headache. 14:54 Onset: The symptoms/episode began/occurred suddenly, today. Associated signs and jr8 symptoms: The patient has no apparent associated signs or symptoms. Severity of symptoms: At its worst the pain was moderate, in the emergency department the pain is unchanged. Headache History: The patient has had previous headaches and this one is more severe than previous episodes. The symptoms are alleviated by nothing. the symptoms are aggravated by nothing. The patient has experienced similar episodes in the past, a few times. The patient has not recently seen a physician. Patient and has been having on/off headaches. Stated that her last tylenol dose was last night but still feeling bad. Was anxious that she may have covid again. Stated that she was at a gathering the other day and majority of individuals were not wearing masks . Historical: - Allergies: 13:25 No Known Allergies; ss - PMHx: 13:25 Anxiety; Panic attack; ss - PSHx: 13:25 Appendectomy; ss - Immunization history:: Adult Immunizations up to date, Client reports having NOT received the Covid vaccine. - Social history:: Smoking status: Patient denies any tobacco usage or history of. ROS: 14:54 Eyes: Negative for injury, pain, redness, and discharge, ENT: Negative for injury, jr8 pain, and discharge, Neck: Negative for injury, pain, and swelling, Cardiovascular: Negative for chest pain, palpitations, and edema, Respiratory: Negative for shortness of breath, cough, wheezing, and pleuritic chest pain, Abdomen/GI: Negative for abdominal pain, nausea, vomiting, diarrhea, and constipation, Back: Negative for injury and pain, MS/Extremity: Negative for injury and deformity, Skin: Negative for injury, rash, and discoloration. 14:54 Neuro: Positive for headache. Exam: 14:54 Constitutional: This is a well developed, well nourished patient who is awake, alert, jr8 and in no acute distress. ENT: Nares patent. No nasal discharge, no septal abnormalities noted. Tympanic membranes are normal and external auditory canals are clear. Oropharynx with no redness, swelling, or masses, exudates, or evidence of obstruction, uvula midline. Mucous membranes moist. Neck: Trachea midline, no thyromegaly or masses palpated, and no cervical lymphadenopathy. Supple, full range of motion without nuchal rigidity, or vertebral point tenderness. No Meningismus. Chest/axilla: Normal chest wall appearance and motion. Nontender with no deformity. No lesions are appreciated. Cardiovascular: Regular rate and rhythm with a normal S1 and S2. No gallops, murmurs, or rubs. Normal PMI, no JVD. No pulse deficits. Respiratory: Lungs have equal breath sounds bilaterally, clear to auscultation and percussion. No rales, rhonchi or wheezes noted. No increased work of breathing, no retractions or nasal flaring. Abdomen/GI: Soft, non-tender, with normal bowel sounds. No distension or tympany. No guarding or rebound. No evidence of tenderness throughout. Gravid in appearance Back: No spinal tenderness. No costovertebral tenderness. Full range of motion. Skin: Warm, dry with normal turgor. Normal color with no rashes, no lesions, and no evidence of cellulitis. MS/ Extremity: Pulses equal, no cyanosis. Neurovascular intact. Full, normal range of motion. Neuro: Awake and alert, GCS 15, oriented to person, place, time, and situation. Cranial nerves II-XII grossly intact. Motor strength 5/5 in all extremities. Sensory grossly intact. Cerebellar exam normal. Normal gait. Vital Signs: 13:21 Pulse 98; Resp 16; Temp 97.5(TE); Pulse Ox 99% on R/A; Weight 78.93 kg; Height 5 ft. 1 ss in. (154.94 cm); Pain 7/10; 13:26 BP 104 / 69; ss 13:21 Body Mass Index 32.88 (78.93 kg, 154.94 cm) ss MDM: 14:13 Patient medically screened. [facility] 15:22 Data reviewed: vital signs, nurses notes, lab test result(s), and as a result, I will [facility] discharge patient. Data interpreted: Pulse oximetry: on room air is 99 %. Interpretation: normal. Counseling: I had a detailed discussion with the patient and/or guardian regarding: the historical points, exam findings, and any diagnostic results supporting the discharge/admit diagnosis, lab results, the need for outpatient follow up, an OB/Gyne specialist, to return to the emergency department if symptoms worsen or persist or if there are any questions or concerns that arise at home. 08/06 14:56 Order name: SARS-COV-2 RT PCR; Complete Time: 15:22 EDMS Administered Medications: 13:41 Drug: Tylenol 1000 mg Route: PO; ss 15:32 Follow up: Response: No adverse reaction; Pain is decreased ss Disposition: 08/07 08:47 Co-signature as Attending Physician, Simba Duenas MD I agree with the assessment and kdr plan of care. Disposition Summary: 08/06/20 15:23 Discharge Ordered Location: Home jr8 Problem: new jr8 Symptoms: have improved jr8 Condition: Stable jr8 Diagnosis - Headache jr8 Followup: jr8 - With: Private Physician - When: 2 - 3 days - Reason: Recheck today's complaints, Continuance of care, Re-evaluation by your physician Discharge Instructions: - Discharge Summary Sheet jr8 - General Headache Without Cause jr8 Forms: - Medication Reconciliation Form jr8 - Thank You Letter jr8 - Antibiotic Education jr8 - Prescription Opioid Use jr8 Signatures: Dispatcher [employer] EDWY Simba Duenas MD MD [facility] Sophie Smith RN RN Dino Rodriguez PA PA jr8 Corrections: (The following items were deleted from the chart) 08/06 14:01 13:35 CORONAVIRUS+LAB.BRZ ordered. EDWY EDMS
--- NOTE | 2020-08-06 15:24 | ER ---
Nurse's Notes [facility] Name: Goyo Solorio Age: 35 yrs Sex: Female : 1985 Arrival Date: 08/06/2020 Time: 13:02 Bed DX4 Private MD: Diagnosis: Headache Presentation: 08/06 13:21 Chief complaint: Patient states: "I have a really bad headache for 3 days, even with ss Tylenol it won't go away. I have a little bit uncomfortableness in my chest and my back. I do have severe anxiety so I don't know if that's just it. It also hurts behind my eyes." Pt reports she is 23 weeks . Coronavirus screen: Client denies travel out of the [place] in the last 14 days. Ebola Screen: Patient denies exposure to infectious person. Initial Sepsis Screen: Does the patient meet any 2 criteria? No. Patient's initial sepsis screen is negative. Does the patient have a suspected source of infection? No. Patient's initial sepsis screen is negative. Risk Assessment: Do you want to hurt yourself or someone else? Patient reports no desire to harm self or others. Onset of symptoms was August 03, 2020. 13:21 Method Of Arrival: Ambulatory ss 13:21 Acuity: EUGENIO 3 ss Historical: - Allergies: 13:25 No Known Allergies; ss - PMHx: 13:25 Anxiety; Panic attack; ss - PSHx: 13:25 Appendectomy; ss - Immunization history:: Adult Immunizations up to date, Client reports having NOT received the Covid vaccine. - Social history:: Smoking status: Patient denies any tobacco usage or history of. Screenin:21 Abuse screen: Denies threats or abuse. Denies injuries from another. Nutritional ss screening: No deficits noted. Tuberculosis screening: Never had TB. Fall Risk None identified. Assessment: 13:09 Reassessment: Called to triage. Pt sent to L\\T\\D by registration staff per policy prior ss to ER visit because she is 23 weeks . 13:21 Reassessment: L\\T\\D would not evaluate patient because she had no concerns about her ss . General: Appears well groomed, Behavior is cooperative, anxious, Reports fatigue for 2-3 days, Denies fever, feeling ill, chills. General: Pt is concerned that she may COVID. Has reported episodes of pounding hear when laying down and severe anxiety. . Pain: Complains of pain in chest Pain radiates to back Pain currently is 7 out of 10 on a pain scale. Quality of pain is described as aching, pain is worse in head and not near as bad in her chest Pain began 2-3 days ago. Is continuous. Neuro: Level of Consciousness is awake, alert, obeys commands, Oriented to person, place, time, situation, Front Counter Clerk are equal bilaterally Facial symmetry appears normal. Cardiovascular: Pulses are palpable in right radial artery, right posterior tibial artery, left radial artery and left posterior tibial artery. Respiratory: Airway is patent Respiratory effort is even, unlabored, Respiratory pattern is regular, symmetrical. Respiratory: Denies cough, shortness of breath labored breathing. GI: Abdomen is non-distended, Patient currently denies diarrhea, nausea, vomiting. : No signs and/or symptoms were reported regarding the genitourinary system. EENT: Nares are clear Oral mucosa is moist. Derm: Skin is intact, is healthy with good turgor, Skin is dry, Skin is pink, warm \\T\\ dry. normal. Musculoskeletal: Circulation, motion, and sensation intact. Range of motion: intact in all extremities, Swelling absent. 14:37 Reassessment: Patient appears in no apparent distress at this time. Patient and/or ss family updated on plan of care and expected duration. Pain level reassessed. headache has improved to 5/10 Patient states feeling better. Patient states symptoms have improved. Vital Signs: 13:21 Pulse 98; Resp 16; Temp 97.5(TE); Pulse Ox 99% on R/A; Weight 78.93 kg; Height 5 ft. 1 ss in. (154.94 cm); Pain 7/10; 13:26 BP 104 / 69; ss 13:21 Body Mass Index 32.88 (78.93 kg, 154.94 cm) ED Course: 13:02 Patient arrived in ED. as 13:21 Patient has correct armband on for positive identification. telemetry monitor on. Pulse ss ox on. NIBP on. 13:21 Patient maintains SpO2 saturation greater than 95% on room air. ss 13:25 Triage completed. ss 13:25 Arm band placed on right wrist. ss 14:10 Dino Rodriguez PA is PHCP. jr8 14:11 Simba Duenas MD is Attending Physician. jr8 14:19 Sophie Smith, RN is Primary Nurse. ss 15:31 No provider procedures requiring assistance completed. Patient did not have IV access ss during this emergency room visit. Administered Medications: 13:41 Drug: Tylenol 1000 mg Route: PO; ss 15:32 Follow up: Response: No adverse reaction; Pain is decreased ss Outcome: 15:23 Discharge ordered by . jr8 15:31 Discharged to home ambulatory. ss 15:31 Condition: improved 15:31 Discharge instructions given to patient, Instructed on discharge instructions, follow up and referral plans. Demonstrated understanding of instructions, follow-up care. 15:31 Patient left the ED. ss Signatures: Dayan Mack as Sophie Smith, RN RN Dino Rodriguez PA PA jr8
[2020-08-06 15:37] VITALS: TEMP 97.5; O2SAT 99
[2020-08-06 15:39] VITALS: BP 104/69
== END 2020-08-06 15:31 | disposition home or self-care (01) ==
LOC: ER 13:00
DX: R51.9 Headache, unspecified (principal); Z20.822 Contact with and (suspected) exposure to COVID-19
CPT/HCPCS: U0003

== ENCOUNTER 2020-08-06 20:36 | Emergency (ER) | payer OTHER ==
--- OUTSIDE RECORDS SUMMARY | 2020-08-06 20:39 | XMS REPORT | Continuity of Care Document ---
:1985 Author Organization [facility] t Address [address] [place] [address] Care Team Providers Name Role Phone Tino HERRERA Attending Clinician Unavailable Zafar LUCIANO, R Attending Clinician Ultrasound Attending Clinician Unavailable Owen LUCIANO, N Attending Clinician Avinash STREETER L Attending Clinician Radha HERRERA, A Attending Clinician [...] Allergie 7-15 Clear s 00:00: Hough 00 [facility] No Known DA Active U 2012-02 [facility] Allergie 0-06 Clear s 00:00: Hough 00 [facility] Medications This patient has no known medications. Procedures This patient has no known procedures. Encounters Start End Encounter Admission Attending Care Care Encounter Source Date/Time Date/Time Type Type Clinicians Facility Department ID 2020-08-06 2020-08-06 Nurse KEARA Jiménez [id number] 00:00:00 00:00:00 Triage Mike LANCE 350.1.13.10 [facility] 4.2.7.2.686 [id number] 2020-07-30 2020-07-30 Routine Zafar FLCHARLINE [id number] 10:22:14 10:37:14 Roshunda R CLINICAL STAFF RN 350.1.13.10 Visit REGIONAL 4.2.7.2.686 MATERNAL [id number] & CHILD 107 [address] 2020-07-14 2020-07-14 Digital Research Analyst Ultrasound, [facility] 1.2.840.114 [id number] 09:45:41 11:00:41 Visit [facility] CLINICAL STAFF RN 350.1.13.10 REGIONAL 4.2.7.2.686 MATERNAL [id number] & CHILD [address] 2020-07-14 2020-07-14 Case Owen [facility] [id number] 00:00:00 00:00:00 Management Dolly Montoya CLINICAL STAFF RN 350.1.13.10 [facility] 4.2.7.2.686 MATERNAL [id number] & CHILD 107 [address] 2020-07-01 2020-07-01 Routine Zafar [facility] 1.2.840.114 [id number] 13:52:00 14:58:28 Roshunda R CLINICAL STAFF RN 350.1.13.10 Visit REGIONAL 4.2.7.2.686 MATERNAL [id number] & CHILD [address] 2020-07-01 2020-07-01 Telephone Zafar [facility] [id number] 00:00:00 00:00:00 Roshunda R CLINICAL STAFF RN 350.1.13.10 [facility] 4.2.7.2.686 MATERNAL [id number] & CHILD [address] 2020-06-17 2020-06-17 Routine Zafar [facility] 1.2.840.114 [id number] 08:48:55 09:25:15 Roshunda R CLINICAL STAFF RN 350.1.13.10 Visit REGIONAL 4.2.7.2.686 MATERNAL [id number] & CHILD [address] 2020-06-03 2020-06-03 Emergency Da Silva, TRAUMA [id number] 20:19:00 22:12:00 Julio [facility] 350.1.13.10 4.2.7.2.686 [id number] 014 2020-05-13 2020-05-13 Routine MADAN Stephen 1.2.840.114 [id number] 09:59:20 10:14:20 Roshunda R CLINICAL STAFF RN 350.1.13.10 Visit REGIONAL 4.2.7.2.686 MATERNAL [id number] & CHILD 107 [address] 2020-04-29 2020-04-29 Telephone MADAN Stephen [id number] 00:00:00 00:00:00 Roshunda R CLINICAL STAFF RN 350.1.13.10 [facility] 4.2.7.2.686 MATERNAL [id number] & CHILD [address] 2020-04-22 2020-04-22 Nurse KEARA Garcia 1.2.840.114 [id number] 00:00:00 00:00:00 Triage Lynn Lemus CASI 350.1.13.10 [facility] 4.2.7.2.686 [id number] 019 2020-04-09 2020-04-09 Case MADAN Stephen 1.2.840.114 [id number] 00:00:00 00:00:00 Management Roshunda R CLINICAL STAFF RN 350.1.13.10 [facility] 4.2.7.2.686 MATERNAL [id number] & CHILD [address] 2020-04-08 2020-04-08 Digital Research Analyst MADAN Rivas 1.2.840.114 [id number] 11:32:55 12:14:18 Visit [facility] CLINICAL STAFF RN 350.1.13.10 REGIONAL 4.2.7.2.686 MATERNAL [id number] & CHILD [address] 2020-04-08 2020-04-08 Abstract MADAN Stephen 1.2.840.114 [id number] 00:00:00 00:00:00 Roshunda R CLINICAL STAFF RN 350.1.13.10 [facility]AL 4.2.7.2.686 MATERNAL [id number] & CHILD [address] 2020-04-02 2020-04-03 Emergency Vilma [facility] 1.2.840.114 [id number] 23:15:00 01:12:00 [facility] 350.1.13.10 [facility] 4.2.7.2.686 [facility] [id number] [address] ([facility]) 2020-04-02 2020-04-02 Telephone Zafar FLCHARLINE [id number] 00:00:00 00:00:00 Roshunda R CLINICAL STAFF RN 350.1.13.10 [facility] 4.2.7.2.686 MATERNAL [id number] & CHILD [address] 2020-04-02 2020-04-02 Telephone Zafar [facility] [id number] 00:00:00 00:00:00 Rosenrikenda R CLINICAL STAFF RN 350.1.13.10 [facility] 4.2.7.2.686 MATERNAL [id number] & CHILD [address] 2020-04-01 2020-04-01 Initial Zafar FLCHARLINE 1.2.840.114 [id number] 09:25:04 11:05:29 Roshunda R CLINICAL STAFF RN 350.1.13.10 Visit REGIONAL 4.2.7.2.686 MATERNAL [id number] & CHILD 107 [address] Results Test Description Test Time Test Comments [...] 65 IUnit/L 20-125 N code = ALKP) [id number] 10:12:00 Test Item Value Reference Range Interpretation [...] may jett y by method. COMPREHENSIVE METABOLIC [id number] 10:11:00 Test Item Value Reference Range Interpretation [...] TOTAL (test IUnit/L 20-125 code = ALKP) [id number] 10:11:00 Test Item Value Reference Range Interpretation [...] results may jett y by method. PROTHROMBIN [id number] 09:59:00 Test Item Value Reference Range Interpretation [...] Infarction (t o prevent recurre nt infarct). [id number] 09:59:00 Test Item Value Reference Range Interpretation [...] TESTS AND APPROPRIATECLIN ICAL EUALUATIONS. CBC W/AUTO [id number] 09:56:00 Test Item Value Reference Range Interpretation [...] code = MDIFF) - XR CHEST 1 [id number] 09:56:00 FAX: Dallas Cain MD [phone] [place]: St: PRE Name: CHEYENNERAGHAVENDRA SUNIL [facility] : 1985 Age/S: 34/F [address] [place] [address] Unit#: [id number] Loc: [place] [address] Phys: Dallas Cain MD Acct: [id number] Dis Date: Status: PRE ER PHONE #: [phone] Exam Date: 08/22/2019 1003 FAX #: [phone] Reason: Chest Pain EXAMS: CPT CODE: [id number] XR CHEST 1 V 55655 PROCEDURE: CHEST SINGLE VIEW INDICATION: Chest Pain COMPARISON: There are no previous relevant studies available for correlation. FINDINGS: The lungs are clear. No pleural abnormality. The cardiomediastinalsilhouette is normal for projection. The bony thorax is intact. IMPRESSION: Normal radiograph. SL: [id number] at 0956 Reported and signed by: Samson Sousa M.D. CC: Dallas Cain MD Technologist: RT Maddi(R) Trnscrd Date/Time/By: 08/22/2019 (0956) : By: [email or web address] Orig Print D/T: S: 08/22/2019 (1003) PAGE 1 Signed Report
[2020-08-06] MEDS ORDERED: METOCLOPRAMIDE 10 MG/2mL INJ ONE (22:38)
[2020-08-06] MEDS ORDERED: DIPHENHYDRAMINE 50 MG/ML VIAL ONE (22:38)
[2020-08-06 23:18] LABS: Absolute Lymphocytes (CBC) 2.7 K/uL (0.7-4.9); Hematocrit 35.9 % (36.0-45.0); MPV 7.8 fL (7.6-11.3); RBC Red Blood Cell Count 4.53 M/uL (3.86-4.86)
[2020-08-06 23:26] LABS: BUN Blood Urea Nitrogen 9 mg/dL (7-18); Bicarbonate 23 mmol/L (21-32); Glucose Level 86 mg/dL (74-106); Potassium 3.7 mmol/L (3.5-5.1); Sodium Level 138 mmol/L (136-145)
[2020-08-06] MEDS ORDERED: ACETAMINOPHEN 500 MG TAB ONE (23:26)
[2020-08-06] MEDS ORDERED: ACETAMINOPHEN 325 MG TABLET ONE (23:28)
[2020-08-06] MEDS ORDERED: NA CHLORIDE 0.9% 1,000 ML ONE (23:28)
--- NOTE | 2020-08-07 00:09 | EDPHYS ---
Physician Documentation [facility] Name: Goyo Solorio Age: 35 yrs Sex: Female : 1985 Arrival Date: 08/06/2020 Time: 20:38 Bed 17 Private MD: ED Physician Claudette Valencia HPI: 08/06 22:59 This 35 yrs old Female presents to ER via Ambulatory with complaints of jr8 Headache. 22:59 Onset: The symptoms/episode began/occurred acutely, today. Associated signs and jr8 symptoms: Pertinent positives: nausea. Severity of symptoms: At its worst the pain was moderate, in the emergency department the pain is unchanged. Headache History: The patient has had previous headaches and this one is more severe than previous episodes. The symptoms are alleviated by nothing. the symptoms are aggravated by nothing. The patient has not experienced similar symptoms in the past. The patient has been recently seen by a physician:. Patient seen earlier for same thing. Remington better after the Tylenol but now feeling bad again . REHAB CARE ASSISTANT: 20:49 Verified bs2 Historical: - Allergies: 20:49 No Known Allergies; bs2 - Home Meds: 20:49 Azithromycin Oral [Active]; bs2 - PMHx: 20:49 Anxiety; panic attack; bs2 - PSHx: 20:49 Appendectomy; bs2 - Immunization history:: Client reports having NOT received the Covid vaccine. Flu vaccine is not up to date. - Social history:: Smoking status: Patient denies any tobacco usage or history of. ROS: 22:59 Eyes: Negative for injury, pain, redness, and discharge, ENT: Negative for injury, jr8 pain, and discharge, Neck: Negative for injury, pain, and swelling, Cardiovascular: Negative for chest pain, palpitations, and edema, Respiratory: Negative for shortness of breath, cough, wheezing, and pleuritic chest pain, Abdomen/GI: Negative for abdominal pain, nausea, vomiting, diarrhea, and constipation, Back: Negative for injury and pain, MS/Extremity: Negative for injury and deformity, Skin: Negative for injury, rash, and discoloration. 22:59 Neuro: Positive for headache. Exam: 22:59 Eyes: Pupils equal round and reactive to light, extra-ocular motions intact. Lids and jr8 lashes normal. Conjunctiva and sclera are non-icteric and not injected. Cornea within normal limits. Periorbital areas with no swelling, redness, or edema. ENT: Nares patent. No nasal discharge, no septal abnormalities noted. Tympanic membranes are normal and external auditory canals are clear. Oropharynx with no redness, swelling, or masses, exudates, or evidence of obstruction, uvula midline. Mucous membranes moist. Neck: Trachea midline, no thyromegaly or masses palpated, and no cervical lymphadenopathy. Supple, full range of motion without nuchal rigidity, or vertebral point tenderness. No Meningismus. Cardiovascular: Tachycardic with a normal S1 and S2. No gallops, murmurs, or rubs. Normal PMI, no JVD. No pulse deficits. Respiratory: Lungs have equal breath sounds bilaterally, clear to auscultation and percussion. No rales, rhonchi or wheezes noted. No increased work of breathing, no retractions or nasal flaring. Abdomen/GI: Soft, non-tender, with normal bowel sounds. No distension or tympany. No guarding or rebound. No evidence of tenderness throughout. Back: No spinal tenderness. No costovertebral tenderness. Full range of motion. Skin: Warm, dry with normal turgor. Normal color with no rashes, no lesions, and no evidence of cellulitis. MS/ Extremity: Pulses equal, no cyanosis. Neurovascular intact. Full, normal range of motion. Neuro: Awake and alert, GCS 15, oriented to person, place, time, and situation. Cranial nerves II-XII grossly intact. Motor strength 5/5 in all extremities. Sensory grossly intact. Cerebellar exam normal. Normal gait. 22:59 Constitutional: The patient appears alert, awake, anxious. Vital Signs: 20:47 BP 109 / 71; Pulse 108; Resp 20; Temp 98.8(T); Pulse Ox 100% ; Weight 78.93 kg (R); bs2 Height 5 ft. 1 in. (154.94 cm) (R); Pain 10/10; 22:19 BP 100 / 64; Pulse 99; Resp 20; Pulse Ox 100% on R/A; ld1 23:31 BP 110 / 68; Pulse 102; Resp 18; Pulse Ox 100% on R/A; ld1 20:47 Body Mass Index 32.88 (78.93 kg, 154.94 cm) bs2 MDM: 22:11 Patient medically screened. jr8 08/07 00:01 Data reviewed: vital signs, nurses notes, lab test result(s). Data interpreted: Pulse jr8 oximetry: on room air is 100 %. Interpretation: normal. Counseling: I had a detailed discussion with the patient and/or guardian regarding: the historical points, exam findings, and any diagnostic results supporting the discharge/admit diagnosis, lab results, the need for outpatient follow up, an OB/Gyne specialist, to return to the emergency department if symptoms worsen or persist or if there are any questions or concerns that arise at home. Response to treatment: the patient's symptoms have mildly improved after treatment, patient is well hydrated. ED course: Patient without focal neurological deficits. Mild improvement with tylenol. Initially tried to give patient reglan and benadryl as she had only minimal change earlier with the tylenol and has had a headache for past few days but patient keeps declining treatment. Expressed to her at this time that if she doesn't want any other treatment modality that we will send her home to f/u. CT not indicated at this time as she does not have the worst headache of her life and without any focal deficits. Patient understands this and would rather give it another day. If worse would come back for further treatment and evaluation . 08/06 22:32 Order name: CBC with Diff; Complete Time: 23:30 jr8 08/06 22:32 Order name: Basic Metabolic Panel; Complete Time: 23:30 jr8 08/06 22:13 Order name: IV; Complete Time: 23:16 jr8 Administered Medications: 08/06 23:15 Not Given (Other Intervention Used): Ringers - Lactated Ringers Solution 1000 ml IV at ld1 bolus bolus 23:15 Drug: Tylenol 650 mg Route: PO; ld1 23:36 Follow up: Response: No adverse reaction ld1 23:16 Drug: NS 0.9% 1000 ml Route: IV; Rate: 1 bolus; Site: left antecubital; ld1 23:36 Follow up: Response: No adverse reaction; IV Status: Infusion continued ld1 23:36 Not Given (Patient Refused): Reglan (metoCLOPramide) 10 mg IVP once; over 1 to 2 minutesld1 23:36 Not Given (Patient Refused): Benadryl (diphenhydrAMINE) 25 mg IVP once ld1 Disposition: 08/07 05:38 Co-signature as Attending Physician, Claudette Valencia MD. ma2 Disposition Summary: 08/07/20 00:08 Discharge Ordered Location: Home jr8 Problem: new jr8 Symptoms: have improved jr8 Condition: Stable jr8 Diagnosis - Migraine without aura, not intractable jr8 Followup: jr8 - With: Private Physician - When: 1 - 2 days - Reason: Recheck today's complaints, Continuance of care, Re-evaluation by your physician Discharge Instructions: - Discharge Summary Sheet jr8 - Migraine Headache jr8 Forms: - Medication Reconciliation Form jr8 - Thank You Letter jr8 - Antibiotic Education jr8 - Prescription Opioid Use jr8 Signatures: Dispatcher [employer] EDMS Dino Rodriguez PA PA jr8 Claudette Valencia MD MD ma2 Chrissie Santamaria RN RN ld1 Monika Soto bs2
--- NOTE | 2020-08-07 00:09 | ER ---
Nurse's Notes [facility] Name: Goyo Solorio Age: 35 yrs Sex: Female : 1985 Arrival Date: 08/06/2020 Time: 20:38 Bed 17 Private MD: Diagnosis: Migraine without aura, not intractable Presentation: 08/06 20:47 Chief complaint: Patient states: headache, nausea, pt states she was here earlier and bs2 swabbed for covid, VILLELA is worse. Coronavirus screen: Client denies travel out of the [place] in the last 14 days. headache, nausea, Client presents with at least one sign or symptom that may indicate coronavirus-19. Standard/surgical mask placed on the client. Ebola Screen: Patient negative for fever greater than or equal to 101.5 degrees Fahrenheit, and additional compatible Ebola Virus Disease symptoms Patient denies exposure to infectious person. Patient denies travel to an Ebola-affected area in the 21 days before illness onset. Initial Sepsis Screen: Does the patient meet any 2 criteria? HR > 90 bpm. Does the patient have a suspected source of infection? No. Patient's initial sepsis screen is negative. Risk Assessment: Do you want to hurt yourself or someone else? Patient reports no desire to harm self or others. Onset of symptoms was August 06, 2020. 20:47 Method Of Arrival: Ambulatory bs2 20:47 Acuity: EUGENIO 3 bs2 Triage Assessment: 20:49 Headache History: The patient has had previous headaches and this one is more severe bs2 than previous episodes. General: Appears in no apparent distress. uncomfortable, Behavior is cooperative, agitated, anxious. Pain: Pain currently is 10 out of 10 on a pain scale. Pain began gradually, 2 hours ago. Also complains of nausea, photophobia. Neuro: No deficits noted. 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 Flu vaccine is not up to date. - Social history:: Smoking status: Patient denies any tobacco usage or history of. Screenin:19 Abuse screen: Denies threats or abuse. Denies injuries from another. Nutritional ld1 screening: No deficits noted. Tuberculosis screening: No symptoms or risk factors identified. Fall Risk None identified. Assessment: 22:19 General: Appears in no apparent distress. uncomfortable, Behavior is calm, cooperative, ld1 appropriate for age. Pain: Complains of pain in forehead. Pain: Pain does not radiate. Pain currently is 9 out of 10 on a pain scale. Quality of pain is described as throbbing, Pain began 1 day ago. Is continuous. Neuro: Level of Consciousness is awake, alert, obeys commands, Oriented to person, place, time, situation. Cardiovascular: Capillary refill < 3 seconds Patient's skin is warm and dry. Rhythm is regular. Respiratory: Airway is patent Respiratory effort is even, unlabored, Respiratory pattern is regular, symmetrical. GI: Abdomen is round Reports 24 weeks . : No signs and/or symptoms were reported regarding the genitourinary system. EENT: No signs and/or symptoms were reported regarding the EENT system. Derm: No signs and/or symptoms reported regarding the dermatologic system. Musculoskeletal: No signs and/or symptoms reported regarding the musculoskeletal system. 23:31 Reassessment: Patient appears in no apparent distress at this time. Pt refuses ld1 medications other than tylenol, states "I am afraid of medications, can we hold off on the other meds.". Vital Signs: 20:47 BP 109 / 71; Pulse 108; Resp 20; Temp 98.8(T); Pulse Ox 100% ; Weight 78.93 kg (R); bs2 Height 5 ft. 1 in. (154.94 cm) (R); Pain 10/10; 22:19 BP 100 / 64; Pulse 99; Resp 20; Pulse Ox 100% on R/A; ld1 23:31 BP 110 / 68; Pulse 102; Resp 18; Pulse Ox 100% on R/A; ld1 20:47 Body Mass Index 32.88 (78.93 kg, 154.94 cm) bs2 ED Course: 20:38 Patient arrived in ED. es 20:49 Triage completed. bs2 20:49 Arm band placed on left wrist. bs2 22:08 Dino Rodriguez PA is PHCP. jr8 22:08 Claudette Valencia MD is Attending Physician. jr8 22:09 Chrissie Santamaria, RN is Primary Nurse. ld1 22:19 Patient has correct armband on for positive identification. Placed in gown. Bed in low ld1 position. Side rails up X2. Pulse ox on. NIBP on. Door closed. Noise minimized. Warm blanket given. 22:19 No provider procedures requiring assistance completed. ld1 22:59 Inserted saline lock: 22 gauge in left antecubital area, using aseptic technique. Blood mb4 collected. 23:00 Initial lab(s) drawn, by wa, sent to lab. mb4 08/07 00:06 IV discontinued, intact, bleeding controlled, No redness/swelling at site. bs2 Administered Medications: 08/06 23:15 Not Given (Other Intervention Used): Ringers - Lactated Ringers Solution 1000 ml IV at ld1 bolus bolus 23:15 Drug: Tylenol 650 mg Route: PO; ld1 23:36 Follow up: Response: No adverse reaction ld1 23:16 Drug: NS 0.9% 1000 ml Route: IV; Rate: 1 bolus; Site: left antecubital; ld1 23:36 Follow up: Response: No adverse reaction; IV Status: Infusion continued ld1 23:36 Not Given (Patient Refused): Reglan (metoCLOPramide) 10 mg IVP once; over 1 to 2 minutesld1 23:36 Not Given (Patient Refused): Benadryl (diphenhydrAMINE) 25 mg IVP once ld1 Outcome: 08/07 00:08 Discharge ordered by . jr8 00:29 Discharged to home ambulatory. bs2 00:29 Condition: improved 00:29 Discharge instructions given to patient, Instructed on discharge instructions, follow up and referral plans. Demonstrated understanding of instructions, follow-up care. 00:29 Patient left the ED. bs2 Signatures: Trini Valiente Josh, PA PA jr8 Kiesha Summers mb4 Chrissie Santamaria, RN RN ld1 Monika Soto bs2
[2020-08-07 00:48] VITALS: TEMP 98.8; O2SAT 100
[2020-08-07 00:51] VITALS: BP 110/68
== END 2020-08-07 00:29 | disposition home or self-care (01) ==
LOC: ER 20:36
DX: O26.899 Other specified pregnancy related conditions, unspecified trimester (principal); Z3A.00 Weeks of gestation of pregnancy not specified
CPT/HCPCS: 85025; 80048; 36415; 99284; J2765; J1200; J7030

== ENCOUNTER 2020-08-14 20:19 | Emergency (ER) | payer OTHER ==
--- OUTSIDE RECORDS SUMMARY | 2020-08-14 20:22 | XMS REPORT | Continuity of Care Document ---
:1985 Author Organization [facility] t Address [address] [place] [address] Care Team Providers Name Role Phone Tino HERRERA Attending Clinician Unavailable Payers Payer Name Policy Type Policy Number Effective Date Expiration Date S ource Problems This patient has no known problems. Allergies, Adverse Reactions, Alerts Allergy Allergy Status Severity Reaction(s) Onset Inactive Treating Comm ents Source Name Type Date Date Clinician No Known DA Active U [facility] Allergie 7-15 Clear s 00:00: Hough [address] [place] [address] No Known DA Active U 2012-02 [facility] Allergie 0-06 Clear s 00:00: [address] Medications This patient has no known medications. Procedures This patient has no known procedures. Encounters Start End Encounter Admission Attending Care Care Encounter Source Date/Time Date/Time Type Type Clinicians Facility Department ID 2020-08-06 2020-08-06 Nurse KEARA Jiménez [id number] 00:00:00 00:00:00 Triage Mike LANCE 350.1.13.10 [facility] 4.2.7.2.686 [id number] [id number] Results Test Description Test Time Test Comments [...] 65 IUnit/L 20-125 N code = ALKP) [id number] 10:12:00 Test Item Value Reference Range Interpretation [...] may jett y by method. COMPREHENSIVE METABOLIC [id number] 10:11:00 Test Item Value Reference Range Interpretation [...] TOTAL (test IUnit/L 20-125 code = ALKP) [id number] 10:11:00 Test Item Value Reference Range Interpretation [...] results may jett y by method. PROTHROMBIN [id number] 09:59:00 Test Item Value Reference Range Interpretation [...] Infarction (t o prevent recurre nt infarct). [id number] 09:59:00 Test Item Value Reference Range Interpretation [...] TESTS AND APPROPRIATECLIN ICAL EUALUATIONS. CBC W/AUTO [id number] 09:56:00 Test Item Value Reference Range Interpretation [...] code = MDIFF) - XR CHEST 1 [id number] 09:56:00 FAX: Dallas Cain MD [phone] [place]: St: PRE Name: RAGHAVENDRA QUINN [facility] : 1985 Age/S: 34/F [address] [place] [address] Unit#: [id number] Loc: [place] [address] Phys: Dallas Cain MD Acct: [id number] Dis Date: Status: PRE ER PHONE #: [phone] Exam Date: 08/22/2019 100 FAX #: [phone] Reason: Chest Pain EXAMS: CPT CODE: [id number] XR CHEST 1 V 13708 PROCEDURE: CHEST SINGLE VIEW INDICATION: Chest Pain COMPARISON: There are no previous relevant studies available for correlation. FINDINGS: The lungs are clear. No pleural abnormality. The cardiomediastinalsilhouette is normal for projection. The bony thorax is intact. IMPRESSION: Normal radiograph. SL: [id number] at 0956 Reported and signed by: Samson Sousa M.D. CC: Dallas Cain MD Technologist: Lilly Agarwal RT(R) Trnscrd Date/Time/By: 08/22/2019 (2885) : By: Krissy Orig Print D/T: S: 08/22/2019 (2110) PAGE 1 Signed Report
--- NOTE | 2020-08-14 23:18 | EDPHYS ---
Physician Documentation [facility] Name: Goyo Solorio Age: 35 yrs Sex: Female : 1985 Arrival Date: 08/14/2020 Time: 21:39 Bed 26 Private MD: ED Physician Mike Veliz HPI: 08/14 23:19 This 35 yrs old Female presents to ER via Ambulatory with complaints of Arm kb Pain. 23:19 The patient or guardian complains of pain, tenderness. The complaints affect the palmar kb aspect of left forearm. Context: The problem was sustained at home, resulted from unknown cause. Onset: The symptoms/episode began/occurred today. Treatment prior to arrival includes: no previous treatment. Modifying factors: The symptoms are alleviated by nothing. the symptoms are aggravated by nothing. Associated signs and symptoms: Pertinent positives: pain. Severity of symptoms: At their worst the symptoms were moderate, in the emergency department the symptoms are unchanged. The patient has not experienced similar symptoms in the past. The patient has not recently seen a physician. Pt c/o pain to left forearm that started today. pt concerned about a blood clot. 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 - Social history:: Smoking status: Patient denies any tobacco usage or history of. ROS: 23:19 Constitutional: Negative for fever, chills, and weight loss. kb 23:19 MS/extremity: Positive for pain, tenderness, of the palmar aspect of left forearm. 23:19 All other systems are negative. Exam: 23:19 Constitutional: This is a well developed, well nourished patient who is awake, alert, kb and in no acute distress. Head/Face: Normocephalic, atraumatic. ENT: Moist Mucous membranes Respiratory: Respirations even and unlabored. No increased work of breathing, no retractions or nasal flaring. Skin: Warm, dry with normal turgor. Normal color. Neuro: Awake and alert, GCS 15, oriented to person, place, time, and situation. Moves all extremities. Normal gait. Psych: Awake, alert, with orientation to person, place and time. Behavior, mood, and affect are within normal limits. 23:19 Musculoskeletal/extremity: Extremities: grossly normal except: noted in the palmar aspect of left forearm: pain, tenderness, ROM: no acute changes, Circulation is intact in all extremities. Sensation intact. Vital Signs: 21:42 BP 107 / 71; Pulse 88; Resp 16 S; Temp 97.3(O); Pulse Ox 99% on R/A; Weight 79.38 kg bb (R); Height 5 ft. 1 in. (154.94 cm) (R); Pain 6/10; 22:38 BP 102 / 69; Pulse 95; Resp 16 S; Pulse Ox 98% on R/A; bb 21:42 Body Mass Index 33.07 (79.38 kg, 154.94 cm) bb MDM: 22:24 Patient medically screened. kb 22:24 Patient medically screened. kb 22:24 Patient medically screened. kb 23:18 Data reviewed: vital signs, nurses notes. Data interpreted: Pulse oximetry: on room air kb is 98 %. Interpretation: normal. Counseling: I had a detailed discussion with the patient and/or guardian regarding: the historical points, exam findings, and any diagnostic results supporting the discharge/admit diagnosis, radiology results, the need for outpatient follow up, a family practitioner, to return to the emergency department if symptoms worsen or persist or if there are any questions or concerns that arise at home. 08/14 22:35 Order name: Extremity Venous Unilateral Ltd kb Administered Medications: 23:11 Drug: Pepcid (famotidine) 20 mg Route: PO; em 23:24 Follow up: Response: No adverse reaction em 23:13 Drug: Tylenol 1000 mg Route: PO; em 23:25 Follow up: Response: No adverse reaction em Disposition Summary: 08/14/20 23:17 Discharge Ordered Location: Home kb Condition: Stable kb Diagnosis - Pain in left forearm kb Followup: kb - With: Emergency Department - When: As needed - Reason: Worsening of condition Followup: kb - With: Private Physician - When: 2 - 3 days - Reason: Recheck today's complaints, Continuance of care, Re-evaluation by your physician Discharge Instructions: - Discharge Summary Sheet kb - Musculoskeletal Pain kb Forms: - Medication Reconciliation Form kb - Thank You Letter kb - Antibiotic Education kb - Prescription Opioid Use kb Addendum: 08/18/2020 07:35 Co-signature as Attending Physician, Mike Veliz MD I agree with the assessment and c elizabeth plan of care. Signatures: Dispatcher [employer] Tess Lombardi, VP EMERGING MEDIA-C VP EMERGING MEDIA-Mike Da Silva MD MD cha Munoz, Edgar, RN RN Deja Garcia, RN RN bb
--- NOTE | 2020-08-14 23:18 | ER ---
Nurse's Notes [facility] Name: Goyo Solorio Age: 35 yrs Sex: Female : 1985 Arrival Date: 08/14/2020 Time: 21:39 Bed 26 Private MD: Diagnosis: Pain in left forearm Presentation: 08/14 21:42 Chief complaint: Patient states: she fell asleep today and about 20 minutes after bb waking up her left arm started hurting from the elbow down pt is 24 weeks and wanted to make sure it is nothing serious. Coronavirus screen: At this time, the client does not indicate any symptoms associated with coronavirus-19. Ebola Screen: No symptoms or risks identified at this time. Initial Sepsis Screen: Does the patient meet any 2 criteria? No. Patient's initial sepsis screen is negative. Does the patient have a suspected source of infection? No. Patient's initial sepsis screen is negative. Risk Assessment: Do you want to hurt yourself or someone else? Patient reports no desire to harm self or others. Onset of symptoms was August 14, 2020. 21:42 Method Of Arrival: Ambulatory bb 21:42 Acuity: EUGENIO 4 bb Triage Assessment: 21:45 General: Appears in no apparent distress. Behavior is calm, cooperative. Pain: bb Complains of pain in left arm Pain currently is 6 out of 10 on a pain scale. Neuro: Level of Consciousness is awake, alert, obeys commands, Oriented to person, place, time, situation. Cardiovascular: Capillary refill < 3 seconds Patient's skin is warm and dry. Respiratory: Respiratory effort is even, unlabored, Respiratory pattern is regular. GI: No signs and/or symptoms were reported involving the gastrointestinal system. Derm: Skin is pink, warm \T\ dry. Musculoskeletal: Circulation, motion, and sensation intact. Reports pain in left arm. 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 - Social history:: Smoking status: Patient denies any tobacco usage or history of. Screenin:29 Abuse screen: Denies threats or abuse. Nutritional screening: No deficits noted. em Tuberculosis screening: No symptoms or risk factors identified. Fall Risk None identified. Assessment: 22:38 Reassessment: No changes from previously documented assessment. Patient is alert, bb oriented x 3, equal unlabored respirations, skin warm/dry/pink. see triage assessment. Vital Signs: 21:42 BP 107 / 71; Pulse 88; Resp 16 S; Temp 97.3(O); Pulse Ox 99% on R/A; Weight 79.38 kg bb (R); Height 5 ft. 1 in. (154.94 cm) (R); Pain 6/10; 22:38 BP 102 / 69; Pulse 95; Resp 16 S; Pulse Ox 98% on R/A; bb 21:42 Body Mass Index 33.07 (79.38 kg, 154.94 cm) bb ED Course: 21:39 Patient arrived in ED. bb 21:45 Triage completed. bb 21:45 Arm band placed on Patient placed in waiting room, Patient notified of wait time. bb 22:23 Tess Roberto FNP-C is [facility]. kb 22:23 Mike Veliz MD is Attending Physician. kb 22:29 Emanuel Whaley, RN is Primary Nurse. em 22:29 Patient has correct armband on for positive identification. em 22:38 Pulse ox on. NIBP on. Warm blanket given. bb 23:14 US Extremity Venous Unilateral Ltd In Process Unspecified. EDMS 23:25 No provider procedures requiring assistance completed. Patient did not have IV access em during this emergency room visit. Administered Medications: 23:11 Drug: Pepcid (famotidine) 20 mg Route: PO; em 23:24 Follow up: Response: No adverse reaction em 23:13 Drug: Tylenol 1000 mg Route: PO; em 23:25 Follow up: Response: No adverse reaction em Outcome: 23:17 Discharge ordered by . kb 23:25 Discharged to home ambulatory. em 23:25 Condition: good 23:25 Discharge instructions given to patient, Instructed on discharge instructions, follow up and referral plans. Demonstrated understanding of instructions, follow-up care. 23:25 Patient left the ED. em Signatures: Dispatcher [employer] EDMS Pardeep Tess, APPLIQUE CUTTER-C APPLIQUE CUTTER-Emanuel Carrizales, RN RN em Deja Dumont RN RN Kiesha Simon 4 Corrections: (The following items were deleted from the chart) 22:28 21:45 7, 3, Living 3, LMP 01/28/2000, Verified, EDC mb4 11/03/2000, Gestational age from LMP: 1072 weeks 1 day bb
[2020-08-14] MEDS ORDERED: FAMOTIDINE 20 MG TAB ONE (23:26)
[2020-08-14] MEDS ORDERED: ACETAMINOPHEN 500 MG TAB ONE (23:33)
[2020-08-14 23:45] VITALS: TEMP 97.3
[2020-08-14 23:46] VITALS: BP 102/69; O2SAT 98
--- NOTE | 2020-08-15 07:30 | RAD REPORT ---
EXAM DESCRIPTION: US - Extremity Venous Uni Ltd - 08/14/2020 11:14 pm CLINICAL HISTORY: PAIN COMPARISON: Extremity Venous Uni Ltd dated 05/26/2017 FINDINGS: Focused left upper extremity ultrasound to evaluate for deep venous thrombosis. No deep ve nous thrombosis identified. No sonographic abnormality of the patient's reported site of pain. IMPRESSION: Negative for left upper extremity deep venous thrombosis.
== END 2020-08-14 23:25 | disposition home or self-care (01) ==
LOC: ER 20:19
DX: O26.892 Other specified pregnancy related conditions, second trimester (principal); Z3A.28 28 weeks gestation of pregnancy
CPT/HCPCS: 93971; 99283

== ENCOUNTER 2020-08-29 14:12 | Emergency (ER) | payer OTHER ==
--- OUTSIDE RECORDS SUMMARY | 2020-08-29 14:14 | XMS REPORT | Continuity of Care Document ---
:1985 Author Organization [facility] t Address [address] [place] [address] Care Team Providers Name Role Phone Vipul DENTAL INSTRUCTOR Attending Clinician Zafar DENTAL INSTRUCTOR, R Attending Clinician Doctor Unassigned, Name Attending Clinician Unavailable 1, Mfm Usg Room Attending Clinician Unavailable Tino HERRERA Attending Clinician Unavailable Payers Payer [...] Date/Time Type Type Clinicians Facility Department ID 2020-08-28 2020-08-28 [facility] [id number] 15:21:38 23:59:00 Encounter [place] [id number] [place] [id number] [address] [id number] 2020-08-28 2020-08-28 Urgent Vipul [facility] [id number] 14:13:24 15:23:[address] [facility] [id number] [place] [id number] [place] [id number] nal [address] 2020-08-27 2020-08-27 Routine Zafar [facility] [id number] 10:01:23 11:16:37 Roshunda R BROACH OPERATOR [id number] Visit [facility] [id number] MATERNAL [phone] & CHILD [address] [place] [address] 2020-08-27 2020-08-27 Orders Doctor KEARA [id number] 00:00:00 00:00:00 Only Unassigned, CASI [id number] [place] [facility] [id number] [id number] 2020-08-19 2020-08-19 Behavioral Health Aide 1, [facility] [id number] 14:50:51 15:35:51 Visit [facility] [id number] [facility] [id number] [id number] 2020-08-06 2020-08-06 Nurse KEARA Jiménez [id number] 00:00:00 00:00:00 Triage Mike LANCE [id number] [facility] [id number] [id number] Results Test Description Test Time Test [...] 65 IUnit/L 20-125 N code = ALKP) [id number] 10:12:00 Test Item Value Reference Range Interpretation [...] may jett y by method. COMPREHENSIVE METABOLIC [id number] 10:11:00 Test Item Value Reference Range Interpretation [...] TOTAL (test IUnit/L 20-125 code = ALKP) [id number] 10:11:00 Test Item Value Reference Range Interpretation [...] results may jett y by method. PROTHROMBIN [id number] 09:59:00 Test Item Value Reference Range Interpretation [...] Infarction (t o prevent recurre nt infarct). [id number] 09:59:00 Test Item Value Reference Range Interpretation [...] TESTS AND APPROPRIATECLIN ICAL EUALUATIONS. CBC W/AUTO [id number] 09:56:00 Test Item Value Reference Range Interpretation [...] code = MDIFF) - XR CHEST 1 [id number] 09:56:00 FAX: Dallas Cain MD [phone] Plaza: St: PRE Name: CHEYENNERAGHAVENDRA SUNIL [facility] : 1985 Age/S: 34/F [address] [place] [address] Unit#: [id number] Loc: [place] [address] Phys: Dallas Cain MD Acct: [id number] Dis Date: Status: PRE ER PHONE #: [phone] Exam Date: 08/22/2019 1003 FAX #: [phone] Reason: Chest Pain EXAMS: CPT CODE: [id number] XR CHEST 1 V [id number] PROCEDURE: CHEST SINGLE VIEW INDICATION: Chest Pain COMPARISON: There are no previous relevant studies available for correlation. FINDINGS: The lungs are clear. No pleural abnormality. The cardiomediastinalsilhouette is normal for projection. The bony thorax is intact. IMPRESSION: Normal radiograph. SL: [id number] at 0956 Reported and signed by: Samson Sousa M.D. CC: Dallas Cain MD Technologist: RT Maddi(R) Trnscrd Date/Time/By: 08/22/2019 (0956) : By: AryKWL Orig Print D/T: S: 08/22/2019 (1003) PAGE 1 Signed Report
--- NOTE | 2020-08-29 18:47 | ER ---
Nurse's Notes [facility] Name: Goyo Solorio Age: 35 yrs Sex: Female : 1985 Arrival Date: 08/29/2020 Time: 14:15 Bed 4 Private MD: Diagnosis: Anxiety disorder, unspecified Presentation: 08/29 15:28 Chief complaint: Patient states: Chest pain and tightness starting yesterday, kg congestion x 3 days and tiredness. Pt stated, "I've been taken care of kids that were diagnosed with RSV. ". Coronavirus screen: Client denies travel out of the [place] in the last 14 days. At this time, unable to obtain information related to travel outside the [place] At this time, the client does not indicate any symptoms associated with coronavirus-19. Coronavirus screen: Client presents with at least one sign or symptom that may indicate coronavirus-19. Standard/surgical mask placed on the client. Provider contacted for isolation considerations. Ebola Screen: Patient negative for fever greater than or equal to 101.5 degrees Fahrenheit, and additional compatible Ebola Virus Disease symptoms Patient denies exposure to infectious person. Patient denies travel to an Ebola-affected area in the 21 days before illness onset. Initial Sepsis Screen: Does the patient meet any 2 criteria? No. Patient's initial sepsis screen is negative. Does the patient have a suspected source of infection? No. Patient's initial sepsis screen is negative. Risk Assessment: Do you want to hurt yourself or someone else? Patient reports no desire to harm self or others. Onset of symptoms was August 26, 2020. 15:28 Method Of Arrival: Ambulatory kg 15:28 Acuity: EUGENIO 3 kg Triage Assessment: 15:34 Respiratory: the patient has mild shortness of breath. kg 15:34 General: Appears. 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 - Social history:: Smoking status: Patient/guardian denies using tobacco, Stopped _ months ago 4. Screenin:31 Abuse screen: Denies threats or abuse. Denies injuries from another. Nutritional kg screening: No deficits noted. Tuberculosis screening: No symptoms or risk factors identified. Fall Risk None identified. No fall in past 12 months (0 pts). No secondary diagnosis (0 pts). No IV (0 pts). Ambulatory Aid- Gait- Normal/Bed Rest/Wheelchair (0 pts) Mental Status- Oriented to own ability (0 pts). Total Rome Fall Scale indicates No Risk (0-24 pts). Assessment: 15:33 Respiratory: Airway is patent Trachea midline Respiratory effort is even, unlabored, kg relaxed. 16:45 General: Appears in no apparent distress. comfortable, well developed, Behavior is sv calm, cooperative, appropriate for age. General: Pt is currently .. Pain: Complains of pain in chest Pain currently is 3 out of 10 on a pain scale. Neuro: Level of Consciousness is awake, alert, obeys commands, Oriented to person, place, time, situation, Moves all extremities. Full function Gait is steady. Cardiovascular: Patient's skin is warm and dry. Cardiovascular: Reports. Respiratory: Airway is patent Respiratory effort is even, unlabored, Respiratory pattern is regular, symmetrical. Respiratory: Reports chest congestion. Derm: Skin is pink, warm \\T\\ dry. 18:24 Reassessment: Patient appears in no apparent distress at this time. No changes from sv previously documented assessment. Patient and/or family updated on plan of care and expected duration. Pain level reassessed. Patient is alert, oriented x 3, equal unlabored respirations, skin warm/dry/pink. 18:56 Reassessment: Patient appears in no apparent distress at this time. No changes from sv previously documented assessment. Patient and/or family updated on plan of care and expected duration. Pain level reassessed. Patient is alert, oriented x 3, equal unlabored respirations, skin warm/dry/pink. Vital Signs: 15:28 BP 100 / 66; Pulse 97; Resp 20; Temp 98.5(O); Pulse Ox 96% on R/A; Weight 81.06 kg; kg Height 5 ft. 1 in. (154.94 cm); Pain 3/10; 15:28 Body Mass Index 33.76 (81.06 kg, 154.94 cm) kg ED Course: 14:15 Patient arrived in ED. am2 15:31 Triage completed. kg 15:31 Patient has correct armband on for positive identification. kg 16:34 Tess Roberto FNP-C is [facility]. kb 16:34 Claudette Valencia MD is Attending Physician. kb 16:41 Maya Mancilla, RN is Primary Nurse. sv 16:45 Arm band placed on. sv 18:21 EKG done, by ED staff, reviewed by Tess PURI. sv 18:56 No provider procedures requiring assistance completed. Patient did not have IV access sv during this emergency room visit. Administered Medications: No medications were administered Outcome: 18:46 Discharge ordered by MD. kb 18:56 Discharged to home ambulatory. sv 18:56 Condition: stable 18:56 Discharge instructions given to patient, Instructed on discharge instructions, follow up and referral plans. Demonstrated understanding of instructions, follow-up care. 18:56 Patient left the ED. sv Signatures: Tess Roberto FNP-C VALUATION CONSULTANT-Ckb Maya Mancilla, RN RN sv Shanon Montes De Oca am2 Barbra Estes, RN RN kg
--- NOTE | 2020-08-29 18:47 | EDPHYS ---
Physician Documentation [facility] Name: Goyo Solorio Age: 35 yrs Sex: Female : 1985 Arrival Date: 08/29/2020 Time: 14:15 Bed 4 Private MD: ED Physician Claudette Valencia HPI: 08/29 18:43 This 35 yrs old Female presents to ER via Ambulatory with complaints of chest kb discomfort, Breathing Difficulty. 18:42 Pt reports chest congestion and chest tightness when she's trying to take a deep kb breath. States she was seen by a dr yesterday and had a chest x-ray done. Reports she has been taking care of a child that has RSV so she came today to get tested for that and COVID.. 18:43 The patient or guardian reports chest congestion, tightness with deep breath. Onset: kb The symptoms/episode began/occurred 3 day(s) ago. Severity of symptoms: At their worst the symptoms were moderate, in the emergency department the symptoms are unchanged. Modifying factors: The symptoms are alleviated by nothing, the symptoms are aggravated by nothing. Associated signs and symptoms: The patient has no apparent associated signs or symptoms. The patient has not experienced similar symptoms in the past. The patient has not recently seen a physician. 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 - Social history:: Smoking status: Patient/guardian denies using tobacco, Stopped _ months ago 4. ROS: 18:42 Constitutional: Negative for fever, chills, and weight loss. kb 18:42 Respiratory: Positive for shortness of breath, Negative for cough, dyspnea on exertion, hemoptysis, orthopnea, pleurisy, sputum production, wheezing. 18:42 All other systems are negative. Exam: 18:38 Constitutional: This is a well developed, well nourished patient who is awake, alert, kb and in no acute distress. Head/Face: Normocephalic, atraumatic. ENT: Moist Mucous membranes Cardiovascular: Regular rate and rhythm with a normal S1 and S2. No gallops, murmurs, or rubs. No pulse deficits. Respiratory: Respirations even and unlabored. No increased work of breathing, no retractions or nasal flaring. Abdomen/GI: Soft, non-tender. No distention Skin: Warm, dry with normal turgor. Normal color. MS/ Extremity: Pulses equal, no cyanosis. Neurovascular intact. Full, normal range of motion. Neuro: Awake and alert, GCS 15, oriented to person, place, time, and situation. Moves all extremities. Normal gait. Psych: Awake, alert, with orientation to person, place and time. Behavior, mood, and affect are within normal limits. 18:38 ECG was reviewed by the Attending Physician. Vital Signs: 15:28 BP 100 / 66; Pulse 97; Resp 20; Temp 98.5(O); Pulse Ox 96% on R/A; Weight 81.06 kg; kg Height 5 ft. 1 in. (154.94 cm); Pain 3/10; 15:28 Body Mass Index 33.76 (81.06 kg, 154.94 cm) kg MDM: 16:34 Patient medically screened. kb 18:39 Data reviewed: vital signs, nurses notes. Data interpreted: Pulse oximetry: on room air kb is 96 %. Interpretation: normal. Counseling: I had a detailed discussion with the patient and/or guardian regarding: the historical points, exam findings, and any diagnostic results supporting the discharge/admit diagnosis, lab results, the need for outpatient follow up, a family practitioner, to return to the emergency department if symptoms worsen or persist or if there are any questions or concerns that arise at home. 18:44 ED course: Patient reports she has a history of anxiety and feels like the symptoms are kb probably from anxiety. States she has had a full cardiac work-up including a stress test over the past year and all was negative diagnosed with anxiety at that point. . 08/29 16:38 Order name: Flu; Complete Time: 17:38 kb 08/29 16:38 Order name: RSV; Complete Time: 17:38 kb 08/29 18:06 Order name: SARS-COV-2 RT PCR; Complete Time: 18:06 EDMS 08/29 18:08 Order name: EKG; Complete Time: 18:08 kb 08/29 18:08 Order name: EKG - Nurse/Tech; Complete Time: 18:24 kb EC:38 Rate is 85 beats/min. Rhythm is regular. QRS [place] is Normal. TN interval is normal at kb 142 msec. QRS interval is normal at 82 msec. QT interval is normal at 372 msec. Administered Medications: No medications were administered Disposition Summary: 08/29/20 18:46 Discharge Ordered Location: Home kb Condition: Stable kb Diagnosis - Anxiety disorder, unspecified kb Followup: kb - With: Emergency Department - When: As needed - Reason: Worsening of condition Followup: kb - With: Private Physician - When: 2 - 3 days - Reason: Recheck today's complaints, Continuance of care, Re-evaluation by your physician Discharge Instructions: - Discharge Summary Sheet kb - Panic Attack, [id number] kb - Generalized Anxiety Disorder, Adult kb Forms: - Medication Reconciliation Form kb - Thank You Letter kb - Antibiotic Education kb - Prescription Opioid Use kb Addendum: 08/31/2020 17:08 Co-signature as Attending Physician, Claudette Valencia MD. m a2 Signatures: Dispatcher [employer] EDMS Tess Roberto, MUSTAPHA-C SUPERVISOR LOGGING-Claudette Chapin MD MD ma2 Barbra Estes, RN RN kg Corrections: (The following items were deleted from the chart) 08/29 17:14 16:39 CORONAVIRUS+MRSYLVIA ordered. EDMT EDMT
[2020-08-29 19:13] VITALS: BP 100/66; TEMP 98.5; O2SAT 96
== END 2020-08-29 18:56 | disposition home or self-care (01) ==
LOC: ER 14:12
DX: F41.9 Anxiety disorder, unspecified (principal); Z20.822 Contact with and (suspected) exposure to COVID-19
CPT/HCPCS: 93005; 87807; 87804 ×2; 99283; U0003

== ENCOUNTER 2020-11-14 00:26 | Emergency (ER) | payer OTHER ==
--- NOTE | 2020-11-14 02:41 | ER ---
Nurse's Notes [facility] Name: Goyo Solorio Age: 35 yrs Sex: Female : 1985 Arrival Date: 11/14/2020 Time: 00:29 Bed 12 Private MD: Diagnosis: Upper respiratory infection. 3 rd Trimester Presentation: 11/14 00:37 Chief complaint: Patient states: sore throat, cough, congestion, pain with cough x 3 df1 days. Coronavirus screen: Vaccine status: Patient reports receiving the 1st dose of the Covid vaccine. Client presents with at least one sign or symptom that may indicate coronavirus-19. Standard/surgical mask placed on the client. The client reports previous COVID testing was negative. Ebola Screen: Patient negative for fever greater than or equal to 101.5 degrees Fahrenheit, and additional compatible Ebola Virus Disease symptoms Patient denies exposure to infectious person. Patient denies travel to an Ebola-affected area in the 21 days before illness onset. Initial Sepsis Screen: Does the patient meet any 2 criteria? No. Patient's initial sepsis screen is negative. Risk Assessment: Do you want to hurt yourself or someone else? Patient reports no desire to harm self or others. Onset of symptoms was November 10, 2020. 00:37 Method Of Arrival: Ambulatory df1 00:37 Acuity: EUGENIO 4 df1 00:40 Note Pt 37 weeks states cough, congestion, sore throat and loss of taste and df1 smell. Taking Keflex given at clinic 2 days prior. Pt states neg for strep, flu, RSV. 02:03 Initial Sepsis Screen: Does the patient have a suspected source of infection? Yes: df1 Productive cough/pneumonia. Triage Assessment: 00:44 General: Appears uncomfortable, Behavior is calm, cooperative. Pain: Complains of pain cc4 in neck Quality of pain is described as c/o sore throat; swabbed for Covid-19, flu \\T\\ strep throat, Dr. Woodard in to see. 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 - Social history:: Smoking status: Patient/guardian denies using tobacco. Screenin:44 Abuse screen: Denies threats or abuse. Nutritional screening: No deficits noted. cc4 Tuberculosis screening: No symptoms or risk factors identified. Fall Risk None identified. Assessment: 00:44 Pain: Complains of pain in neck Pain began c/o sore throat x 2 days; reports taking cc4 keflex x 2 days for sore throat \\T\\ nasal congestion; reports developing productive cough today "Yellow" sputum with loss of taste this evening; reports being negative for covid two days ago; reports taking Pfizer covid vaccine 4 weeks ago; reports being 37 weeks gestation \\T\\ due to deliver on November. Cardiovascular: No deficits noted. Heart tones S1 S2 Capillary refill < 3 seconds Rhythm is sinus tachycardia VR 100. 02:02 Pain: Pain does not radiate. df1 Vital Signs: 00:37 BP 111 / 81; Pulse 101; Resp 20; Temp 98.0; Pulse Ox 99% on R/A; Weight 83.46 kg; df1 Height 5 ft. 1 in. (154.94 cm); Pain 7/10; 01:00 BP 116 / 83; Pulse 100; Resp 22; Temp 98.7(O); Pulse Ox 99% on R/A; cc4 02:45 BP 108 / 73; Pulse 100; Resp 21; Temp 97.8(O); Pulse Ox 98% on R/A; cc4 00:37 Body Mass Index 34.77 (83.46 kg, 154.94 cm) df1 Vitals: 01:00 Heart Tones FHT's 162.. cc4 ED Course: 00:29 Patient arrived in ED. bp1 00:39 Triage completed. df1 00:44 Jacky Woodard MD is Attending Physician. pkl 00:44 Patient has correct armband on for positive identification. Bed in low position. Call cc4 light in reach. Side rails up X 1. fishing vessel captain on. Pulse ox on. NIBP on. 00:44 COVID swab sent to lab. Flu and/or RSV swab sent to lab. Strep swab sent to lab. cc4 01:00 Patient FHT's 162. cc4 01:05 Katherine Martines, RN is Primary Nurse. cc4 02:02 Patient maintains SpO2 saturation greater than 95% on room air. df1 02:45 No provider procedures requiring assistance completed. cc4 02:45 Patient did not have IV access during this emergency room visit. cc4 Administered Medications: No medications were administered Outcome: 02:41 Discharge ordered by . pkl 02:45 Discharged to home ambulatory. cc4 02:45 Condition: stable 02:45 Discharge instructions given to patient, Instructed on discharge instructions, follow up and referral plans. medication usage, Demonstrated understanding of instructions, follow-up care. 02:52 Patient left the ED. cc4 Signatures: Jacky Woodard MD MD pkl [place], [facility] Katherine Martines, RN RN cc4 Yareli Rahman df1 Corrections: (The following items were deleted from the chart) 00:44 00:40 Note Pt states cough, congestion, sore throat and loss of taste and smell. Taking df1 Keflex given at clinic 2 days prior. Pt states neg for strep, flu, RSV. df1
--- NOTE | 2020-11-14 02:41 | EDPHYS ---
Physician Documentation [facility] Name: Goyo Solorio Age: 35 yrs Sex: Female : 1985 Arrival Date: 11/14/2020 Time: 00:29 Bed 12 Private MD: ED Physician Jacky Woodard HPI: 11/14 00:53 This 35 yrs old Female presents to ER via Ambulatory with complaints of Chest pkl Pain, Cough, Sore Throat, Runny Nose. 00:53 The patient or guardian reports cough, described as moderate, with productive sputum, pkl that is green. Onset: The symptoms/episode began/occurred 3 day(s) ago. Associated signs and symptoms: Pertinent positives: chest pain, with cough. Patient is 37 weeks . 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 - Social history:: Smoking status: Patient/guardian denies using tobacco. ROS: 00:53 Eyes: Negative for injury, pain, redness, and discharge. pkl 00:53 ENT: Positive for sore throat. 00:53 Neck: Negative for stiffness. 00:53 Cardiovascular: Positive for chest pain, with cough. 00:53 Respiratory: Positive for cough, with green sputum. 00:53 Abdomen/GI: Negative for abdominal pain, nausea, vomiting, and diarrhea. 00:53 Back: Negative for acute changes. 00:53 : Negative for urinary symptoms. 00:53 MS/extremity: Negative for acute changes. 00:53 Skin: Negative for rash. 00:53 Neuro: Negative for altered mental status, loss of consciousness. Exam: 00:53 Head/Face: Normocephalic, atraumatic. Eyes: Pupils equal round and reactive to light, pkl extra-ocular motions intact. Lids and lashes normal. Conjunctiva and sclera are non-icteric and not injected. Cornea within normal limits. Periorbital areas with no swelling, redness, or edema. ENT: Nares patent. No nasal discharge, no septal abnormalities noted. Tympanic membranes are normal and external auditory canals are clear. Oropharynx with no redness, swelling, or masses, exudates, or evidence of obstruction, uvula midline. Mucous membranes moist. Neck: Trachea midline, no thyromegaly or masses palpated, and no cervical lymphadenopathy. Supple, full range of motion without nuchal rigidity, or vertebral point tenderness. No Meningismus. Chest/axilla: Normal chest wall appearance and motion. Nontender with no deformity. No lesions are appreciated. Cardiovascular: Regular rate and rhythm with a normal S1 and S2. No gallops, murmurs, or rubs. Normal PMI, no JVD. No pulse deficits. Respiratory: Lungs have equal breath sounds bilaterally, clear to auscultation and percussion. No rales, rhonchi or wheezes noted. No increased work of breathing, no retractions or nasal flaring. 00:53 Abdomen/GI: Inspection: gravid appearance, is noted, Bowel sounds: normal, Palpation: abdomen is soft and non-tender, in all quadrants. 00:53 Back: Exam negative for acute changes. 00:53 : Exam negative for acute changes. 00:53 Musculoskeletal/extremity: Exam is negative for acute changes. 00:53 Skin: Exam negative for rash. 00:53 Neuro: Orientation: is normal, Mentation: is normal, Cranial nerves: grossly normal, Motor: is normal. Vital Signs: 00:37 BP 111 / 81; Pulse 101; Resp 20; Temp 98.0; Pulse Ox 99% on R/A; Weight 83.46 kg; df1 Height 5 ft. 1 in. (154.94 cm); Pain 7/10; 01:00 BP 116 / 83; Pulse 100; Resp 22; Temp 98.7(O); Pulse Ox 99% on R/A; cc4 02:45 BP 108 / 73; Pulse 100; Resp 21; Temp 97.8(O); Pulse Ox 98% on R/A; cc4 00:37 Body Mass Index 34.77 (83.46 kg, 154.94 cm) df1 MDM: 00:44 Patient medically screened. pkl 02:39 Data reviewed: vital signs, nurses notes, lab test result(s). pkl 11/14 00:43 Order name: Strep; Complete Time: 02:34 df1 11/14 00:43 Order name: Influenza Screen (a \T\ B); Complete Time: 02:41 df1 11/14 00:58 Order name: Heart Tones; Complete Time: 01:05 pkl 11/14 01:00 Order name: SARS-COV-2 RT PCR; Complete Time: 02:34 EDMS 11/14 01:29 Order name: Throat Culture EDMS Administered Medications: No medications were administered Disposition Summary: 11/14/20 02:41 Discharge Ordered Location: Home pkl Problem: new pkl Symptoms: have improved pkl Condition: Stable pkl Diagnosis - Upper respiratory infection. 3 rd Trimester pkl Followup: pkl - With: Private Physician - When: 2 - 3 days - Reason: Re-evaluation by your physician Forms: - Medication Reconciliation Form pkl - Thank You Letter pkl - Antibiotic Education pkl - Prescription Opioid Use pkl Signatures: Dispatcher [employer] EDMS Jacyk Woodard MD MD pkl Yareli Rahman df1 Corrections: (The following items were deleted from the chart) 01:00 00:44 CORONAVIRUS+MR.LAB.BRZ ordered. EDAL EDMS
[2020-11-14 02:59] VITALS: BP 108/73; TEMP 97.8; O2SAT 98
== END 2020-11-14 02:52 | disposition home or self-care (01) ==
LOC: ER 00:26
DX: O26.893 Other specified pregnancy related conditions, third trimester (principal); J06.9 Acute upper respiratory infection, unspecified; Z20.822 Contact with and (suspected) exposure to COVID-19
CPT/HCPCS: 87070; 87081; 87804 ×2; 99285; U0003

== ENCOUNTER 2020-12-10 02:25 | Emergency (ER) | payer OTHER ==
[2020-12-10 02:58] LABS: Urine Blood 1+ (Negative); Urine Glucose Negative (Negative); Urine Protein Negative (Negative); Urine Specific Gravity 1.025 (1.005-1.030); Urine pH 6.5 (5.0-7.0)
[2020-12-10] MEDS ORDERED: NA CHLORIDE 0.9% 1,000 ML ONE (03:01)
[2020-12-10 03:46] LABS: Absolute Lymphocytes (CBC) 4.1 K/uL (0.7-4.9); Basophils % 1.3 % (0-1.3); Hematocrit 38.1 % (36.0-45.0); Lymphocytes % 35.6 % (15.3-44.8); MPV 7.3 fL (7.6-11.3); RBC Red Blood Cell Count 5.21 M/uL (3.86-4.86)
[2020-12-10 04:06] LABS: ALT/SGPT 15 U/L (12-78); AST/SGOT 10 U/L (15-37); Albumin 2.6 g/dL (3.4-5.0); Alkaline Phosphatase 96 U/L (45-117); BUN Blood Urea Nitrogen 17 mg/dL (7-18); Bicarbonate 25 mmol/L (21-32); Bilirubin Direct < 0.1 mg/dL (0-0.2); Bilirubin Total 0.2 mg/dL (0.2-1.0); Glucose Level 101 mg/dL (74-106); Lipase 328 U/L (73-393); Potassium 4.1 mmol/L (3.5-5.1); Protein, Total 7.4 g/dL (6.4-8.2); Sodium Level 142 mmol/L (136-145)
--- NOTE | 2020-12-10 05:31 | ER ---
Nurse's Notes [facility] Name: Goyo Solorio Age: 35 yrs Sex: Female : 1985 Arrival Date: 12/10/2020 Time: 02:28 Bed 6 Private MD: Diagnosis: Lower abdominal pain, unspecified;Diverticulosis Presentation: 12/10 02:33 Chief complaint: Patient states: left abd pain x 4 hours. Coronavirus screen: Vaccine df1 status: Patient reports being unvaccinated. Ebola Screen: Patient negative for fever greater than or equal to 101.5 degrees Fahrenheit, and additional compatible Ebola Virus Disease symptoms Patient denies exposure to infectious person. Patient denies travel to an Ebola-affected area in the 21 days before illness onset. Initial Sepsis Screen: Does the patient meet any 2 criteria? No. Patient's initial sepsis screen is negative. Does the patient have a suspected source of infection? No. Patient's initial sepsis screen is negative. Risk Assessment: Do you want to hurt yourself or someone else? Patient reports no desire to harm self or others. Onset of symptoms was December 09, 2020 at 22:00. 02:33 Method Of Arrival: Ambulatory df1 02:33 Acuity: EUGENIO 3 df1 02:38 Note Pt post 2 weeks, vaginal , states sharp left side abd pain df1 intermittent and 2 episodes of burning with urination. Denies N/V/Fever/D. 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 - Social history:: Smoking status: Patient/guardian denies using tobacco, Patient uses alcohol, only on a social basis. Screenin:46 Abuse screen: Denies threats or abuse. Denies injuries from another. Nutritional bs2 screening: No deficits noted. Tuberculosis screening: No symptoms or risk factors identified. Fall Risk None identified. Assessment: 02:46 General: Appears in no apparent distress. uncomfortable, obese, well groomed, well bs2 developed, well nourished, Behavior is calm, cooperative, appropriate for age. Pain:. Neuro: No deficits noted. Cardiovascular: No deficits noted. Respiratory: No deficits noted. GI: Bowel sounds present X 4 quads. Abd is soft and non tender X 4 quads. : Reports burning with urination. Vital Signs: 02:33 BP 105 / 80; Pulse 72; Resp 18; Temp 98.4; Pulse Ox 99% on R/A; Weight 81.65 kg; Height df1 5 ft. 1 in. (154.94 cm); Pain 0/10; 05:36 BP 117 / 62; Pulse 75; Resp 16; Temp 98.6; Pulse Ox 100% ; Pain 0/10; bs2 02:33 Body Mass Index 34.01 (81.65 kg, 154.94 cm) df1 ED Course: 02:28 Patient arrived in ED. bp1 02:36 Triage completed. df1 02:46 Monika Soto, RN is Primary Nurse. bs2 02:46 Patient has correct armband on for positive identification. Placed in gown. Bed in low bs2 position. Call light in reach. Side rails up X 1. Pulse ox on. NIBP on. Door closed. Lights dimmed. Warm blanket given. 02:47 Chema Villegas MD is Attending Physician. mh7 03:03 No provider procedures requiring assistance completed. df1 03:26 Arm band placed on right wrist. bs2 03:26 Basic Metabolic Panel Sent. bs2 03:26 CBC with Diff Sent. bs2 03:26 Hepatic Function Sent. bs2 03:26 Lipase Sent. bs2 03:26 Inserted saline lock: 20 gauge in right forearm, using aseptic technique. Blood bs2 collected. 03:26 Initial lab(s) drawn, by pa, sent to lab. bs2 04:05 Lipase Sent. bs2 04:05 Hepatic Function Sent. bs2 04:31 Abdomen In Process Unspecified. EDMS 05:29 James Andino MD is Referral Physician. mh7 05:36 IV discontinued, intact, bleeding controlled, No redness/swelling at site. bs2 Administered Medications: 03:25 Drug: NS 0.9% 1000 ml Route: IV; Rate: 1000 ml; Site: right antecubital; bs2 05:36 Follow up: IV Status: Completed infusion bs2 Outcome: 05:30 Discharge ordered by . 7 05:36 Discharged to home ambulatory. bs2 05:36 Condition: improved 05:36 Discharge instructions given to patient, Instructed on discharge instructions, follow up and referral plans. medication usage, Demonstrated understanding of instructions, follow-up care, medications, Prescriptions given X 1. 05:37 Patient left the ED. bs2 Signatures: Dispatcher [employer] EDOK Ely Branch Maurice, MD MD 7 Monika oSto RN RN bs2 Yareli Rahman df1 Corrections: (The following items were deleted from the chart) 03:26 03:26 Inserted saline lock: 20 gauge in right forearm, using aseptic technique. bs2 bs2
--- NOTE | 2020-12-10 05:31 | EDPHYS ---
Physician Documentation [facility] Name: Goyo Solorio Age: 35 yrs Sex: Female : 1985 Arrival Date: 12/10/2020 Time: 02:28 Bed 6 Private MD: BA Physician Chema Villegas HPI: 12/10 03:02 This 35 yrs old Female presents to ER via Ambulatory with complaints of mh7 Abdominal Pain. 03:02 The patient presents with abdominal pain in the left lower quadrant. Onset: The mh7 symptoms/episode began/occurred last night. The symptoms do not radiate. Associated signs and symptoms: Pertinent positives: dysuria, Pertinent negatives: nausea, vomiting, and diarrhea, nausea and vomiting, anorexia, blood in stools, chest pain, constipation, diarrhea, fever, headache, hematuria, nausea, palpitations, shortness of breath, vaginal discharge, vomiting, vomiting blood. The symptoms are described as intermittent, sharp, waxing/waning. Modifying factors: The symptoms are alleviated by nothing, the symptoms are aggravated by movement. Severity of pain: At its worst the pain was moderate last night, in the emergency department the pain has improved moderately. 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 - Social history:: Smoking status: Patient/guardian denies using tobacco, Patient uses alcohol, only on a social basis. ROS: 03:02 Constitutional: Negative for fever, chills, and weight loss, Eyes: Negative for injury, mh7 pain, redness, and discharge, ENT: Negative for injury, pain, and discharge, Neck: Negative for injury, pain, and swelling, Cardiovascular: Negative for chest pain, palpitations, and edema, Respiratory: Negative for shortness of breath, cough, wheezing, and pleuritic chest pain, Back: Negative for injury and pain, : Negative for injury, bleeding, discharge, and swelling, MS/Extremity: Negative for injury and deformity, Skin: Negative for injury, rash, and discoloration, Neuro: Negative for headache, weakness, numbness, tingling, and seizure, Psych: Negative for depression, anxiety, suicide ideation, homicidal ideation, and hallucinations, Allergy/Immunology: Negative for hives, rash, and allergies, Endocrine: Negative for neck swelling, polydipsia, polyuria, polyphagia, and marked weight changes, Hematologic/Lymphatic: Negative for swollen nodes, abnormal bleeding, and unusual bruising. Exam: 03:02 Constitutional: This is a well developed, well nourished patient who is awake, alert, mh7 and in no acute distress. Head/Face: Normocephalic, atraumatic. Eyes: Pupils equal round and reactive to light, extra-ocular motions intact. Lids and lashes normal. Conjunctiva and sclera are non-icteric and not injected. Cornea within normal limits. Periorbital areas with no swelling, redness, or edema. Neck: Trachea midline, no thyromegaly or masses palpated, and no cervical lymphadenopathy. Supple, full range of motion without nuchal rigidity, or vertebral point tenderness. No Meningismus. Chest/axilla: Normal chest wall appearance and motion. Nontender with no deformity. No lesions are appreciated. Cardiovascular: Regular rate and rhythm with a normal S1 and S2. No gallops, murmurs, or rubs. Normal PMI, no JVD. No pulse deficits. Respiratory: Lungs have equal breath sounds bilaterally, clear to auscultation and percussion. No rales, rhonchi or wheezes noted. No increased work of breathing, no retractions or nasal flaring. Back: No spinal tenderness. No costovertebral tenderness. Full range of motion. Skin: Warm, dry with normal turgor. Normal color with no rashes, no lesions, and no evidence of cellulitis. MS/ Extremity: Pulses equal, no cyanosis. Neurovascular intact. Full, normal range of motion. Neuro: Awake and alert, GCS 15, oriented to person, place, time, and situation. Cranial nerves II-XII grossly intact. Motor strength 5/5 in all extremities. Sensory grossly intact. Cerebellar exam normal. Normal gait. Psych: Awake, alert, with orientation to person, place and time. Behavior, mood, and affect are within normal limits. 03:02 Abdomen/GI: Inspection: obese Bowel sounds: normal, in all quadrants, Palpation: mild abdominal tenderness, in the left lower quadrant, mass, is not appreciated, rebound tenderness, is not appreciated, voluntary guarding, is not appreciated, involuntary guarding, is not appreciated, no appreciated organomegaly, Rectal exam: the exam is deferred, because of patient request, Indicators: McBurney's point is not tender, Wood's sign is negative, Rovsing's sign is negative, Obturator sign is negative, Psoas sign is negative, Liver: no appreciated palpable abnormalities, Hernia: not appreciated. Vital Signs: 02:33 BP 105 / 80; Pulse 72; Resp 18; Temp 98.4; Pulse Ox 99% on R/A; Weight 81.65 kg; Height df1 5 ft. 1 in. (154.94 cm); Pain 0/10; 05:36 BP 117 / 62; Pulse 75; Resp 16; Temp 98.6; Pulse Ox 100% ; Pain 0/10; bs2 02:33 Body Mass Index 34.01 (81.65 kg, 154.94 cm) df1 MDM: 05:27 Differential diagnosis: bowel obstruction, diverticulitis, Endometriosis, non-specific mh7 abd pain, Pyelonephritis, Ureterolithiasis, urinary tract infection. Data reviewed: vital signs, nurses notes, lab test result(s), CBC, electrolytes, urinalysis, radiologic studies, CT scan. Data interpreted: Pulse oximetry: on room air is 99 %. Interpretation: normal. Counseling: I had a detailed discussion with the patient and/or guardian regarding: the historical points, exam findings, and any diagnostic results supporting the discharge/admit diagnosis, lab results, radiology results, the need for outpatient follow up, to return to the emergency department if symptoms worsen or persist or if there are any questions or concerns that arise at home. Response to treatment: the patient's symptoms have resolved after treatment, the patient's blood pressure is in an acceptable range, mental status has returned to baseline, the patient no longer shows bradycardia, the patient is not short of breath, the patient is not tachycardic, the patient's pain is gone, the patient's temperature has normalized. 05:30 Patient medically screened. mh7 12/10 02:57 Order name: Urine Dipstick-Ancillary; Complete Time: 02:59 EDMS 12/10 03:00 Order name: Basic Metabolic Panel; Complete Time: 04:07 [facility] 12/10 03:00 Order name: CBC with Diff; Complete Time: 04:07 [facility] 12/10 03:00 Order name: Hepatic Function; Complete Time: 04:07 [facility] 12/10 03:00 Order name: Lipase; Complete Time: 04:07 [facility] 12/10 03:00 Order name: IV Saline Lock; Complete Time: 03:25 [facility] 12/10 03:00 Order name: Labs collected and sent; Complete Time: 03:26 [facility] 12/10 04:30 Order name: Abdomen EDMS Administered Medications: 03:25 Drug: NS 0.9% 1000 ml Route: IV; Rate: 1000 ml; Site: right antecubital; bs2 05:36 Follow up: IV Status: Completed infusion bs2 Disposition Summary: 12/10/20 05:30 Discharge Ordered Location: Home [facility] Problem: new [facility] Symptoms: have improved [facility] Condition: Stable [facility] Diagnosis - Lower abdominal pain, unspecified [facility] - Diverticulosis [facility] Followup: [facility] - With: Private Physician - When: 1 - 2 days - Reason: Worsening of condition, Recheck today's complaints, Continuance of care, Re-evaluation by your physician Followup: [facility] - With: James Andino MD - When: 1 - 2 days - Reason: Worsening of condition, Recheck today's complaints Discharge Instructions: - Discharge Summary Sheet [facility] - High-Fiber Diet [facility] - Diverticulosis [facility] - Abdominal Pain, Adult, [id number] [facility] - Form - Excuse from Work, School, or Physical Activity [facility] Forms: - Medication Reconciliation Form [facility] - Thank You Letter [facility] - Antibiotic Education [facility] - Prescription Opioid Use [facility] Prescriptions: - dicyclomine 20 mg Oral Tablet - take 1 tablet by ORAL route 4 times per day As needed; 20 tablet; Refills: 0, [facility] Product Selection Permitted Signatures: Dispatcher [employer] Chema Carrillo MD MD 7 Monika Soto RN RN bs2 Yareli Rahman df1 Corrections: (The following items were deleted from the chart) 04:30 03:29 Abdomen Pelvis W Con+CT.RAD.BRZ ordered. EDMS EDMS
[2020-12-10 05:48] VITALS: BP 117/62; TEMP 98.6; O2SAT 100
--- NOTE | 2020-12-10 11:38 | RAD REPORT ---
EXAM DESCRIPTION: CT - Abdomen Pelvis Wo Contrast - 12/10/2020 6:46 am CLINICAL HISTORY: The patient is 35 years old and is Female; ABD PAIN TECHNIQUE: Axial computed tomography images of the abdomen and pelvis without intravenous contrast. Sagittal and coronal reformatted images were created and reviewed. This CT exam was performed usi ng one or more of the following dose reduction techniques: automated exposure control, adjustment o f the mA and/or kV according to patient size, and/or use of iterative reconstruction technique. COMPARISON: CT chest abdomen and pelvis August 24, 2019. FINDINGS: Lung bases: Unremarkable. No mass. No consolidation. ABDOMEN: Liver: Unremarkable. Gallbladder and bile ducts: Contracted gallbladder without calcified stones visualized. No ductal dilation. Pancreas: Unremarkable. No ductal dilation. Spleen: Unremarkable. No splenomegaly. Adrenals: Unremarkable. No mass. Kidneys and ureters: No nephrolithiasis or hydronephrosis. No perinephric stranding. Stomach and bowel: Scattered colonic diverticulosis. Stomach lumen is filled with semisolid food. No gastric wall thickening. No bowel dilatation or obstruction. No bowel wall thickening. PELVIS: Appendix: No findings to suggest acute appendicitis. Bladder: Unremarkable. No stones. Reproductive: Enlarged uterus. Tiny focus of endometrial gas. ABDOMEN and PELVIS: Intraperitoneal space: Unremarkable. No free air. No significant fluid collection. Bones/joints: No acute fracture. No dislocation. Soft tissues: Unremarkable. Vasculature: Unremarkable. No abdominal aortic aneurysm. Lymph nodes: No pathologically enlarged lymph nodes. IMPRESSION: 1. Scattered colonic diverticulosis. 2. Enlarged uterus. Tiny focus of endometrial gas. Correlate clinically. Electronically signed by: Maya Lynch MD 12/10/2020 4:54 AM CDT Due to temporary technical issues with the PACS/Fluency reporting system, reports are being signed by the in house radiologist without review as a courtesy to ensure prompt reporting. The interpreting r adiologist is fully responsible for the content of the report.
== END 2020-12-10 05:37 | disposition home or self-care (01) ==
LOC: ER 02:25
DX: K57.30 Diverticulosis of large intestine without perforation or abscess without bleeding (principal)
CPT/HCPCS: 96361; 85025; 80048; 36415; 80076; 81003; 83690; 74176; 96360; 99284; J7030

== ENCOUNTER 2021-03-02 03:42 | Emergency (ER) | payer OTHER ==
--- OUTSIDE RECORDS SUMMARY | 2021-03-02 03:49 | XMS REPORT | Continuity of Care Document ---
:1985 Author Organization [facility] t Address [address] [place] [place] [address] Care Team Providers Name Role Phone Sandra LEES, Mariah Primary Care Physician INDUCTION Attending Clinician Unavailable Sarah LEES Attending Clinician Jv LUCIANO R Attending Clinician Jan SANCHEZ Attending Clinician Unavailable Owen LUCIANO, N Attending Clinician Doctor Unassigned, Name Attending Clinician Unavailable Jocelyn CARIAS Attending Clinician Unavailable Roger HERRERA Attending Clinician Unavailable Nurse, Urgent Care Attending Clinician Unavailable Vipul LUCIANO Attending Clinician Gilmer Madrid MD Attending Clinician Gilmer MADRID Attending Clinician Unavailable 1, Mfm Usg Room Attending Clinician Unavailable Arcelia Diego MD Attending Clinician Tino HERRERA Attending Clinician Unavailable Ultrasound Attending Clinician Unavailable Jose L LEES, F Attending Clinician Avinash STREETER, L Attending Clinician Radha HERRERA, A Attending Clinician Unavailable Omero LEES Attending Clinician Vilma LEES Attending Clinician SANDRA, Mariah Attending Clinician Unavailable Sandra LEES, Mariah Attending Clinician Only, Test Attending Clinician Unavailable Brittnee LEES Attending Clinician Pob, Lab Main Attending Clinician Unavailable Pob1, Care Clinic Attending Clinician Unavailable Anene GRADING MACHINE OPERATOR Attending Clinician ANENE Attending Clinician Unavailable Oscar GAO Attending Clinician Unavailable Provider, Urgent Care Attending Clinician Unavailable Corazon GRADING MACHINE OPERATOR, R Attending Clinician Nurse, Urgent Care Attending Clinician Unavailable Unknown Attending Clinician Unavailable UNKNOWN Attending Clinician Unavailable Miguel GRADING MACHINE OPERATOR Attending Clinician Payers Payer Name Policy Type Policy Number Effective Date Expiration Date [facility] [id number] 2019 CHOICE MEDICAID 00:00:00 [place] [facility] [id number] 2016 HEALTH 00:00:00 MEDICAID PENDING PENDING 2019 00:00:00 Advance Directives Directive Decision Effective Termination Comments Source Date Date Healthcare Agents on N/A Univ ersity FileNameRelationshipHealthcare [facility] Agent Medical RelationshipCommunicationLinda Cylinder Peral[facility] hospital[facility] Care [phone] (Mobile) Problems Condition Condition Condition Status Onset Resolution Last Treating Co mments Source Name Details Category Date Date Treatment Clinician Date Normal Normal Disease Active 2020-02 Univers labor labor 0-19 ity of 00:: [address] Disease Active 2020-02 Univers (normal (normal 0-19 [place] Medi gerri delivery) delivery) Bran ch History of History of Disease Active U nivers anxiety anxiety 2-23 ity of 00:: [address] BMI BMI Disease Active Univers 32.0-32.9, 32.0-32.9, 2-23 it y of adult adult 00:00: [address] Former Former Disease Active Univers smoker smoker 2-23 ity of 00:00: [place] 00 [facility] Branch History of History of Disease Active U nivers 2-23 ity of delivery delivery 00:00: [place] [facility] History of History of Disease Active U nivers 2-23 [place] premature [place] rupture of rupture of 00 Me dical membranes membranes Bran ch (PROM) in (PROM) in previous previous , , currently currently in first in first trimester trimester Vaginal Vaginal Disease Active Univers bleeding bleeding 2-23 ity of in in 00:00: [place] , , 00 Me dical first first Branch trimester trimester Pain Pain Disease Active Univers pelvic pelvic 2-23 ity of 00:00: [place] [facility] Branch Chest Chest Disease Active Univers pain, pain, 8-12 ity of atypical atypical 00:00: [place] [facility] 39 weeks 39 weeks Disease Active Unive rs gestation gestation 3-12 ity of of of 00:00: [place] 00 [facility] Branch Supervisio Supervisio Disease Active U nivers n of high n of high 1-03 ity of risk risk 00:00: [place] 00 [facility] in first in first Branch trimester trimester Multiparit Multiparit Disease Active U nivers y y 8-22 ity of 00:00: [place] [facility] Branch Obesity in Obesity in Disease Active 2017-0 U nivers 8-22 ity of 00:00: [place] [facility] Branch Papanicola Papanicola Disease Active 0 U nivers ou smear ou smear 7-24 ity of of cervix of cerv[place] with low with low 00 Medica l 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) Allergies, Adverse Reactions, Alerts Allergy Allergy Status Severity Reaction(s) Onset Inactive Treating Comm ents Source Name Type Date Date Clinician No Known DA Active U [facility] Allergie 7-15 Clear s 00:00: [place] 00 [facility] No Known DA Active U 2012-02 [facility] Allergie 0-06 Clear s 00:00: [place] 00 [facility] NO KNOWN Drug Active Univers ALLERGIE Class ity of S [facility] Social History Social Habit Start Date Stop Date Quantity Comments Source ASSERTION 2020-03-08 University 00:00:00 [facility] Exposure to Not sure University of SARS-CoV-2 (event) [facility] Alcohol intake 2020-11-25 2020-11-25 Ex-drinker University 00:00:00 00:00:00 (finding) [facility] Education 2020-11-25 2020-11-25 13 University 00:00:00 00:00:00 [facility] Tobacco Comment 2020-04-01 2020-04-01 smokes 4 x Universit y of 00:00:00 00:00:00 socially - [facility] stopped smoking Branch 2 weeks ago Alcohol Comment 2020-04-01 2020-04-01 socially Universit y of 00:00:00 00:00:00 [facility] Branch History SDOH 2020-04-01 2020-04-01 99 University o f Alcohol Frequency 00:00:00 00:00:00 [facility] Branch History SDOH 2020-04-01 2020-04-01 99 University o f Alcohol Std Drinks 00:00:00 00:00:00 [facility] Branch History SDOH 2020-04-01 2020-04-01 99 University o f Alcohol Binge 00:00:00 00:00:[address] [facility] Branch Cigarettes smoked 2016-09-28 2016-09-28 Univers ity of current (pack per 00:00:00 00:00:00 [facility] ) - Reported Branch Cigarette 2016-09-28 2016-09-28 University of pack-years 00:00:00 00:00:00 [facility] Tobacco use and 2016-09-28 2016-09-28 Never used Universit y of exposure 00:00:00 00:00:00 [facility] History of tobacco 2016-08-28 Cigarette Smoker University of use 00:00:00 [facility] Sex [birth year] Universit y of 00:00:00 00:00:00 [facility] Smoking Status Start Date Stop Date Source Former smoker 2016-09-28 00:00:00 2016-09-28 00:00:00 Universi ty of [facility] Medications Ordered Filled Start Stop Current Ordering Indication Dosage Frequency Signature Comments Components Source Medication Medication Date Date Medication? Clinician (SIG) Name Name FENTanyl 2 2020-02- No Intra-op Un rand mcg/mL + 0-20 10-20 ity of bupivacaine 01:56: 11:47 [place] 0.125% in 00 :04 Medical NS 250 mL Branch epidural bag FENTanyl 2 2020-02- No Intra-op Un rand mcg/mL + 0-20 10-20 ity of bupivacaine 01:52: 11:47 [place] 0.125% in 00 :04 Medical NS 250 mL Branch epidural bag lidocaine-e 2020-02- No Intraderma Univers pinephrine 0-20 10-20 l, ONCE ity o f (XYLOCAINE 01:49: 11:47 INTRA [place] W/EPINEPHRI 00 :04 PROCEDURE, Dc dical NE) 1.5 Starting Branch %-1:200,000 on Tue injection 11/25/20 at 2049, Until 11/26/20 at 0647, Routine, Intra-op hydrOXYzine 2020-0 Yes [id number] 25mg Take 1 Univers 25 mg 7-22 tablet by ity of tablet 00:00: mouth [place] 00 every 6 Medical (six) Branch hours as needed for Itching or Anxiety. hydrOXYzine 0 Yes [id number] 25mg Take 1 Univers 25 mg 7-22 tablet by ity of tablet 00:00: mouth [place] 00 every 6 Medical (six) Branch hours as needed for Itching or Anxiety. hydrOXYzine 0 Yes [id number] 25mg Take 1 Univers 25 mg 7-22 tablet by ity of tablet 00:00: mouth [place] 00 every 6 Medical (six) Branch hours as needed for Itching or Anxiety. hydrOXYzine 0 Yes [id number] 25mg Take 1 Univers 25 mg 7-22 tablet by ity of tablet 00:00: mouth [place] 00 every 6 Medical (six) Branch hours as needed for Itching or Anxiety. hydrOXYzine 0 Yes [id number] 25mg Take 1 Univers 25 mg 7-22 tablet by ity of tablet 00:00: mouth [place] 00 every 6 Medical (six) Branch hours as needed for Itching or Anxiety. hydrOXYzine 0 Yes [id number] 25mg Take 1 Univers 25 mg 7-22 tablet by ity of tablet 00:00: mouth [place] 00 every 6 Medical (six) Branch hours as needed for Itching or Anxiety. hydrOXYzine 2021-0 Yes [id number] 25mg Take 1 Univers 25 mg 7-22 tablet by ity of tablet 00:00: mouth [place] 00 every 6 Medical (six) Branch hours as needed for Itching or Anxiety. hydrOXYzine 2020- No [id number] 25mg Take 1 Univers 25 mg 7-22 09-09 tablet by ity of tablet 00:00: 00:00 mouth [place] 00 :00 every 6 Medical (six) Branch hours as needed for Itching or Anxiety. hydrOXYzine 2020- No [id number] 25mg Take 1 Univers 25 mg 7-22 09-09 tablet by ity of tablet 00:00: 00:00 mouth [place] 00 :00 every 6 Medical (six) Branch hours as needed for Itching or Anxiety. Yes 1{packe Take 1 Univ ers vit 7-21 t} Packet by ity of 33-iron-fol 00:00: mouth [place] ic-dha 00 daily. Medical (SELECT-OB Branch + DHA) 29 mg iron-1 mg -250 mg combo pack Yes 1{packe Take 1 Univ ers vit 7-21 t} Packet by ity of 33-iron-fol 00:00: mouth [place] ic-dha 00 daily. Medical (SELECT-OB Branch + DHA) 29 mg iron-1 mg -250 mg combo pack Yes 1{packe Take 1 Univ ers vit 7-21 t} Packet by ity of 33-iron-fol 00:00: mouth [place] ic-dha 00 daily. Medical (SELECT-OB Branch + DHA) 29 mg iron-1 mg -250 mg combo pack Yes 1{packe Take 1 Univ ers vit 7-21 t} Packet by ity of 33-iron-fol 00:00: mouth [place] ic-dha 00 daily. Medical (SELECT-OB Branch + DHA) 29 mg iron-1 mg -250 mg combo pack Yes 1{packe Take 1 Univ ers vit 7-21 t} Packet by ity of 33-iron-fol 00:00: mouth [place] ic-dha 00 daily. Medical (SELECT-OB Branch + DHA) 29 mg iron-1 mg -250 mg combo pack Yes 1{packe Take 1 Univ ers vit 7-21 t} Packet by ity of 33-iron-fol 00:00: mouth [place] ic-dha 00 daily. Medical (SELECT-OB Branch + DHA) 29 mg iron-1 mg -250 mg combo pack Yes 1{packe Take 1 Univ ers vit 7-21 t} Packet by ity of 33-iron-fol 00:00: mouth [place] ic-dha 00 daily. Medical (SELECT-OB Branch + DHA) 29 mg iron-1 mg -250 mg combo pack Yes 1{packe Take 1 Univ ers vit 7-21 t} Packet by ity of 33-iron-fol 00:00: mouth [place] ic-dha 00 daily. Medical (SELECT-OB Branch + DHA) 29 mg iron-1 mg -250 mg combo pack Yes 1{packe Take 1 Univ ers vit 7-21 t} Packet by ity of 33-iron-fol 00:00: mouth [place] ic-dha 00 daily. Medical (SELECT-OB Branch + DHA) 29 mg iron-1 mg -250 mg combo pack Yes 1{packe Take 1 Univ ers vit 7-21 t} Packet by ity of 33-iron-fol 00:00: mouth [place] ic-dha 00 daily. Medical (SELECT-OB Branch + DHA) 29 mg iron-1 mg -250 mg combo pack Yes 1{packe Take 1 Univ ers vit 7-21 t} Packet by ity of 33-iron-fol 00:00: mouth [place] ic-dha 00 daily. Medical (SELECT-OB Branch + DHA) 29 mg iron-1 mg -250 mg combo pack Yes 1{packe Take 1 Univ ers vit 7-21 t} Packet by ity of 33-iron-fol 00:00: mouth [place] ic-dha 00 daily. Medical (SELECT-OB Branch + DHA) 29 mg iron-1 mg -250 mg combo pack Yes 1{packe Take 1 Univ ers vit 7-21 t} Packet by ity of 33-iron-fol 00:00: mouth [place] ic-dha 00 daily. Medical (SELECT-OB Branch + DHA) 29 mg iron-1 mg -250 mg combo pack Yes 1{packe Take 1 Univ ers vit 7-21 t} Packet by ity of 33-iron-fol 00:00: mouth [place] ic-dha 00 daily. Medical (SELECT-OB Branch + DHA) 29 mg iron-1 mg -250 mg combo pack Yes 1{packe Take 1 Univ ers vit 7-21 t} Packet by ity of 33-iron-fol 00:00: mouth [place] ic-dha 00 daily. Medical (SELECT-OB Branch + DHA) 29 mg iron-1 mg -250 mg combo pack fluticasone Yes [id number] 1{spray Use 1 Univers propionate 4-27 } [place] in ity o f 50 00:00: each [place] mcg/actuati 00 nostril 2 Med ical on nasal (two) Branch spray times daily. fluticasone Yes [id number] 1{spray Use 1 Univers propionate 4-27 } [place] in ity o f 50 00:00: each [place] mcg/actuati 00 nostril 2 Med ical on nasal (two) Branch spray times daily. fluticasone Yes [id number] 1{spray Use 1 Univers propionate 4-27 } [place] in ity o f 50 00:00: each [place] mcg/actuati 00 nostril 2 Med ical on nasal (two) Branch spray times daily. fluticasone Yes [id number] 1{spray Use 1 Univers propionate 4-27 } [place] in ity o f 50 00:00: each [place] mcg/actuati 00 nostril 2 Med ical on nasal (two) Branch spray times daily. fluticasone Yes [id number] 1{spray Use 1 Univers propionate 4-27 } [place] in ity o f 50 00:00: each [place] mcg/actuati 00 nostril 2 Med ical on nasal (two) Branch spray times daily. fluticasone Yes [id number] 1{spray Use 1 Univers propionate 4-27 } [place] in ity o f 50 00:00: each [place] mcg/actuati 00 nostril 2 Med ical on nasal (two) Branch spray times daily. fluticasone Yes [id number] 1{spray Use 1 Univers propionate 4-27 } [place] in ity o f 50 00:00: each [place] mcg/actuati 00 nostril 2 Med ical on nasal (two) Branch spray times daily. fluticasone Yes [id number] 1{spray Use 1 Univers propionate 4-27 } [place] in ity o f 50 00:00: each [place] mcg/actuati 00 nostril 2 Med ical on nasal (two) Branch spray times daily. fluticasone Yes [id number] 1{spray Use 1 Univers propionate 4-27 } [place] in ity o f 50 00:00: each [place] mcg/actuati 00 nostril 2 Med ical on nasal (two) Branch spray times daily. fluticasone Yes [id number] 1{spray Use 1 Univers propionate 4-27 } [place] in ity o f 50 00:00: each [place] mcg/actuati 00 nostril 2 Med ical on nasal (two) Branch spray times daily. fluticasone Yes [id number] 1{spray Use 1 Univers propionate 4-27 } [place] in ity o f 50 00:00: each [place] mcg/actuati 00 nostril 2 Med ical on nasal (two) Branch spray times daily. fluticasone Yes [id number] 1{spray Use 1 Univers propionate 4-27 } [place] in ity o f 50 00:00: each [place] mcg/actuati 00 nostril 2 Med ical on nasal (two) Branch spray times daily. fluticasone 2020- No [id number] 1{spray Use 1 Univers propionate 4-27 07-21 } [place] in ity of 50 00:00: 00:00 each [place] mcg/actuati 00 :00 nostril 2 Med ical on nasal (two) Branch spray times daily. cephALEXin 2020- No 500mg Take 500 U nivers 500 mg 4-06 04-06 mg by ity of capsule 15:16: 00:00 mouth 2 [place] 58 :00 (two) Medical times Branch daily. acetaminoph 2020- No 975mg 975 mg, U nivers en 2-25 02-25 Oral, ONCE ity of (TYLENOL) 06:30: 05:51 NOW, 1 [place] tablet 975 00 :00 dose, Nel Medi gerri mg 2/25/21 at Branch 0030, [place] NaCl 0.9% 2020-0 2020- No 1000mL at 999 Uni vers (NS) bolus 2-25 02-25 mL/hr, ity of infusion 06:30: 07:04 1,000 mL, [place] as 1,000 mL 00 :00 IV Medical Infusion, Branch ONCE, 1 dose, Nel 04/03/20 at 0030, STAT cephALEXin 2021-0 Yes 500mg Take 500 Un rand 500 mg 2-23 mg by ity of capsule 15:47: mouth 2 [place] [address] (two) Medical times Branch daily. cephALEXin 2021-0 Yes 500mg Take 500 Un rand 500 mg 2-23 mg by ity of capsule 15:47: mouth 2 [place] [address] (two) Medical times Branch daily. cephALEXin 2021-0 Yes 500mg Take 500 Un rand 500 mg 2-23 mg by ity of capsule 15:47: mouth [address] [place] [address] (two) Medical times Branch daily. cephALEXin 2021-0 Yes 500mg Take 500 Un rand 500 mg 2-23 mg by ity of capsule 15:47: mouth [address] [place] [address] (two) Medical times Branch daily. cephALEXin 2021-0 Yes 500mg Take 500 Un rand 500 mg 2-23 mg by ity of capsule 15:47: mouth [address] [place] [address] (two) Medical times Branch daily. cephALEXin 2021-0 Yes 500mg Take 500 Un rand 500 mg 2-23 mg by ity of capsule 15:47: mouth [address] [place] [address] (two) Medical times Branch daily. cephALEXin 2021-0 Yes 500mg Take 500 Un [place] 500 mg 2-23 mg by ity of capsule 15:47: mouth 2 [place] [address] (two) Medical times Branch daily. cephALEXin 2021-0 Yes 500mg Take 500 Un rand 500 mg 2-23 mg by ity of capsule 15:47: mouth 2 [place] [address] (two) Medical times Branch daily. cephALEXin 2021-0 Yes 500mg Take 500 Un [place] 500 mg 2-23 mg by ity of capsule 15:47: mouth 2 [place] [address] (two) Medical times Branch daily. cephALEXin 2021-0 Yes 500mg Take 500 Un rand 500 mg 2-23 mg by ity of capsule 15:47: mouth 2 [place] 56 (two) Medical times Branch daily. Yes [id number] 1{packe Take 1 Univers vit 2-23 t} Packet by ity of 33-iron-fol 00:00: mouth [place] ic-dha 00 daily. Medical (SELECT-OB Branch + DHA) 29 mg iron-1 mg -250 mg combo pack Yes [id number] 1{packe Take 1 Univers vit 2-23 t} Packet by ity of 33-iron-fol 00:00: mouth [place] ic-dha 00 daily. Medical (SELECT-OB Branch + DHA) 29 mg iron-1 mg -250 mg combo pack Yes [id number] 1{packe Take 1 Univers vit 2-23 t} Packet by ity of 33-iron-fol 00:00: mouth [place] ic-dha 00 daily. Medical (SELECT-OB Branch + DHA) 29 mg iron-1 mg -250 mg combo pack Yes [id number] 1{packe Take 1 Univers vit 2-23 t} Packet by ity of 33-iron-fol 00:00: mouth [place] ic-dha 00 daily. Medical (SELECT-OB Branch + DHA) 29 mg iron-1 mg -250 mg combo pack Yes [id number] 1{packe Take 1 Univers vit 2-23 t} Packet by ity of 33-iron-fol 00:00: mouth [place] ic-dha 00 daily. Medical (SELECT-OB Branch + DHA) 29 mg iron-1 mg -250 mg combo pack Yes [id number] 1{packe Take 1 Univers vit 2-23 t} Packet by ity of 33-iron-fol 00:00: mouth [place] ic-dha 00 daily. Medical (SELECT-OB Branch + DHA) 29 mg iron-1 mg -250 mg combo pack Yes [id number] 1{packe Take 1 Univers vit 2-23 t} Packet by ity of 33-iron-fol 00:00: mouth [place] ic-dha 00 daily. Medical (SELECT-OB Branch + DHA) 29 mg iron-1 mg -250 mg combo pack Yes [id number] 1{packe Take 1 Univers vit 2-23 t} Packet by ity of 33-iron-fol 00:00: mouth [place] ic-dha 00 daily. Medical (SELECT-OB Branch + DHA) 29 mg iron-1 mg -250 mg combo pack Yes [id number] 1{packe Take 1 Univers vit 2-23 t} Packet by ity of 33-iron-fol 00:00: mouth [place] ic-dha 00 daily. Medical (SELECT-OB Branch + DHA) 29 mg iron-1 mg -250 mg combo pack Yes [id number] 1{packe Take 1 Univers vit 2-23 t} Packet by ity of 33-iron-fol 00:00: mouth [place] ic-dha 00 daily. Medical (SELECT-OB Branch + DHA) 29 mg iron-1 mg -250 mg combo pack Yes [id number] 1{packe Take 1 Univers vit 2-23 t} Packet by ity of 33-iron-fol 00:00: mouth [place] ic-dha 00 daily. Medical (SELECT-OB Branch + DHA) 29 mg iron-1 mg -250 mg combo pack Yes [id number] 1{packe Take 1 Univers vit 2-23 t} Packet by ity of 33-iron-fol 00:00: mouth [place] ic-dha 00 daily. Medical (SELECT-OB Branch + DHA) 29 mg iron-1 mg -250 mg combo pack Yes [id number] 1{packe Take 1 Univers vit 2-23 t} Packet by ity of 33-iron-fol 00:00: mouth [place] ic-dha 00 daily. Medical (SELECT-OB Branch + DHA) 29 mg iron-1 mg -250 mg combo pack Yes [id number] 1{packe Take 1 Univers vit 2-23 t} Packet by ity of 33-iron-fol 00:00: mouth [place] ic-dha 00 daily. Medical (SELECT-OB Branch + DHA) 29 mg iron-1 mg -250 mg combo pack Yes [id number] 1{packe Take 1 Univers vit 2-23 t} Packet by ity of 33-iron-fol 00:00: mouth [place] ic-dha 00 daily. Medical (SELECT-OB Branch + DHA) 29 mg iron-1 mg -250 mg combo pack Yes [id number] 1{packe Take 1 Univers vit 2-23 t} Packet by ity of 33-iron-fol 00:00: mouth [place] ic-dha 00 daily. Medical (SELECT-OB Branch + DHA) 29 mg iron-1 mg -250 mg combo pack Yes [id number] 1{packe Take 1 Univers vit 2-23 t} Packet by ity of 33-iron-fol 00:00: mouth [place] ic-dha 00 daily. Medical (SELECT-OB Branch + DHA) 29 mg iron-1 mg -250 mg combo pack Yes [id number] 1{packe Take 1 Univers vit 2-23 t} Packet by ity of 33-iron-fol 00:00: mouth [place] ic-dha 00 daily. Medical (SELECT-OB Branch + DHA) 29 mg iron-1 mg -250 mg combo pack Yes [id number] 1{packe Take 1 Univers vit 2-23 t} Packet by ity of 33-iron-fol 00:00: mouth [place] ic-dha 00 daily. Medical (SELECT-OB Branch + DHA) 29 mg iron-1 mg -250 mg combo pack Yes [id number] 1{packe Take 1 Univers vit 2-23 t} Packet by ity of 33-iron-fol 00:00: mouth [place] ic-dha 00 daily. Medical (SELECT-OB Branch + DHA) 29 mg iron-1 mg -250 mg combo pack Yes [id number] 1{packe Take 1 Univers vit 2-23 t} Packet by ity of 33-iron-fol 00:00: mouth [place] ic-dha 00 daily. Medical (SELECT-OB Branch + DHA) 29 mg iron-1 mg -250 mg combo pack Yes [id number] 1{packe Take 1 Univers vit 2-23 t} Packet by ity of 33-iron-fol 00:00: mouth [place] ic-dha 00 daily. Medical (SELECT-OB Branch + DHA) 29 mg iron-1 mg -250 mg combo pack Yes [id number] 1{packe Take 1 Univers vit 2-23 t} Packet by ity of 33-iron-fol 00:00: mouth [place] ic-dha 00 daily. Medical (SELECT-OB Branch + DHA) 29 mg iron-1 mg -250 mg combo pack 2020- No [id number] 1{packe Take 1 Univers vit 2-23 07-21 t} Packet by ity of 33-iron-fol 00:00: 00:00 [place] ic-dha 00 :00 daily. Medical (SELECT-OB Branch + DHA) 29 mg iron-1 mg -250 mg combo pack cyclobenzap Yes [id number] 5mg Take 1 Univers rine 5 mg 8-14 4 tablet by ity o f tablet 00:00: mouth (two) Medical times Branch daily as needed for Muscle Spasms. Can cause drowsiness . cyclobenzap 2019- Yes [id number] 5mg Take 1 Univers rine 5 mg 8-14 4 tablet by ity o f tablet 00:00: mouth (two) Medical times Branch daily as needed for Muscle Spasms. Can cause drowsiness . cyclobenzap Yes [id number] 5mg Take 1 Univers rine 5 mg 8-14 4 tablet by ity o f tablet 00:00: mouth (two) Medical times Branch daily as needed for Muscle Spasms. Can cause drowsiness . cyclobenzap Yes [id number] 5mg Take 1 Univers rine 5 mg 8-14 4 tablet by ity o f tablet 00:00: mouth (two) Medical times Branch daily as needed for Muscle Spasms. Can cause drowsiness . cyclobenzap 2019-0 Yes [id number] 5mg Take 1 Univers rine 5 mg 8-14 4 tablet by ity o f tablet 00:00: mouth (two) Medical times Branch daily as needed for Muscle Spasms. Can cause drowsiness . cyclobenzap 2019-0 Yes [id number] 5mg Take 1 Univers rine 5 mg 8-14 4 tablet by ity o f tablet 00:00: mouth 2 (two) Medical times Branch daily as needed for Muscle Spasms. Can cause drowsiness . cyclobenzap 0 2020- No [id number] 5mg Take 1 Univers rine 5 mg 8-14 02-23 4 tablet by ity of tablet 00:00: 00:00 mouth 2 [place] 00 :00 (two) Medical times Branch daily as needed for Muscle Spasms. Can cause drowsiness . cyclobenzap 2020-0 202- No [id number] 5mg Take 1 Univers rine 5 mg 8-14 04-01 4 tablet by ity of tablet 00:00: 00:00 mouth 2 [place] 00 :00 (two) Medical times Branch daily as needed for Muscle Spasms. Can cause drowsiness . gabapentin 2020-0 Yes [id number] 100mg Take 1 Univers 100 mg 8-12 capsule by ity of capsule 00:00: mouth (three) Medical times Branch daily as needed (nerve pain). gabapentin 2020-0 Yes [id number] 100mg Take 1 Univers 100 mg 8-12 capsule by ity of capsule 00:00: mouth (three) Medical times Branch daily as needed (nerve pain). gabapentin 2020-0 Yes [id number] 100mg Take 1 Univers 100 mg 8-12 capsule by ity of capsule 00:00: mouth (three) Medical times Branch daily as needed (nerve pain). gabapentin 2020-0 Yes [id number] 100mg Take 1 Univers 100 mg 8-12 capsule by ity of capsule 00:00: mouth (three) Medical times Branch daily as needed (nerve pain). gabapentin 2020-0 Yes [id number] 100mg Take 1 Univers 100 mg 8-12 capsule by ity of capsule 00:00: mouth (three) Medical times Branch daily as needed (nerve pain). gabapentin 2020-0 Yes [id number] 100mg Take 1 Univers 100 mg 8-12 capsule by ity of capsule 00:00: mouth (three) Medical times Branch daily as needed (nerve pain). gabapentin 2020-0 Yes [id number] 100mg Take 1 Univers 100 mg 8-12 capsule by ity of capsule 00:00: mouth (three) Medical times Branch daily as needed (nerve pain). gabapentin 2020-0 Yes [id number] 100mg Take 1 Univers 100 mg 8-12 capsule by ity of capsule 00:00: mouth (three) Medical times Branch daily as needed (nerve pain). gabapentin 2020-0 Yes [id number] 100mg Take 1 Univers 100 mg 8-12 capsule by ity of capsule 00:00: mouth (three) Medical times Branch daily as needed (nerve pain). gabapentin 2020-0 Yes [id number] 100mg Take 1 Univers 100 mg 8-12 capsule by ity of capsule 00:00: mouth 3 00 (three) Medical times Branch daily as needed (nerve pain). gabapentin 2020-0 Yes [id number] 100mg Take 1 [facility] 100 mg 8-12 capsule by ity of capsule 00:00: mouth 3 00 (three) Medical times Branch daily as needed (nerve pain). gabapentin 2019-0 Yes [id number] 100mg Take 1 [facility] 100 mg 8-12 capsule by ity of capsule 00:00: mouth 3 00 (three) Medical times Branch daily as needed (nerve pain). gabapentin 2019-0 Yes [id number] 100mg Take 1 [facility] 100 mg 8-12 capsule by ity of capsule 00:00: mouth 3 00 (three) Medical times Branch daily as needed (nerve pain). gabapentin 2020- No [id number] 100mg Take 1 [facility] 100 mg 8-12 02-23 capsule by ity of capsule 00:00: 00:00 mouth 3 [place] 00 :00 (three) Medical times Branch daily as needed (nerve pain). gabapentin 2020- No [id number] 100mg Take 1 [facility] 100 mg 8-12 02-23 capsule by ity of capsule 00:00: 00:00 mouth 3 [place] 00 :00 (three) Medical times Branch daily as needed (nerve pain). LORazepam Yes [facility] 0.5 mg 7-17 ity of tablet 00:00: 00 Medical Branch LORazepam 2020- No TWICE [facility] s 0.5 mg 08-23- DAILY ity of tablet 00:00: 00:00 00 :00 Medical Branch metoprolol 2020- No TWICE Unive rs tartrate 50 08-23-21 DAILY ity of mg tablet 00:00: 00:00 00 :00 Medical Branch LORazepam 2019- No [facility] 0.5 mg 7-23 09-12 ity of tablet 00:00: 00:00 00 : Medical Branch LORazepam 2019- No [facility] 0.5 mg 7- 08-12 ity of tablet 00:00: 00:00 [place] 00 :00 Medical Branch SERTraline 2019- No [id number] 50mg Take 1 [facility] (ZOLOFT) 50 7-16 08-16 tablet by it y of mg tablet 00:00: 04:59 mouth [place] 00 :00 daily for Medical 30 days. Branch SERTraline 2019-0 2020- No [id number] 50mg Take 1 [facility] (ZOLOFT) 50 7-16 08-16 tablet by it y of mg tablet 00:00: 04:59 mouth [place] 00 :00 daily for Medical 30 days. Branch SERTraline 2019-0 2020- No [id number] 50mg Take 1 [facility] (ZOLOFT) 50 7-16 08-16 tablet by it y of mg tablet 00:00: 04:59 mouth [place] 00 :00 daily for Medical 30 days. Branch SERTraline 2019- 2020- No [id number] 50mg Take 1 [facility] (ZOLOFT) 50 7-16 08-12 tablet by it y of mg tablet 00:00: 00:00 mouth [place] 00 :00 daily for Medical 30 days. Branch SERTraline 2019- 2020- No [id number] 50mg Take 1 [facility] (ZOLOFT) 50 7-16 08-12 tablet by it y of mg tablet 00:00: 00:00 mouth [place] 00 :00 daily for Medical 30 days. Branch ALPRAZolam 2019-0 Yes TAKE 1 [facility] 0.5 mg 7-15 TABLET BY ity of tablet 00:00: MOUTH 3 [place] 00 TIMES A Medical DAY Branch NEEDED ALPRAZolam 0 2020- No TAKE 1 [facility] ers 0.5 mg 7-15 08-12 TABLET BY ity of tablet 00:00: 00:00 MOUTH 3 [place] 00 :00 TIMES A Medical DAY Branch NEEDED ALPRAZolam 2019-0 2020- No TAKE 1 [facility] ers 0.5 mg 7-15 08-12 TABLET BY ity of tablet 00:00: 00:00 MOUTH 3 [place] 00 :00 TIMES A Medical DAY Branch NEEDED hydrOXYzine 2019-0 2020- No [id number] 10mg Take 1 [facility] 10 mg 7-15 07-26 tablet by ity of tablet 00:00: 04:59 mouth [place] 00 :00 every 6 Medical (six) Branch hours for 10 days. hydrOXYzine 2019-0 2020- No [id number] 10mg Take 1 [facility] 10 mg 7-15 07-26 tablet by ity of tablet 00:00: 04:59 mouth [place] 00 :00 every 6 Medical (six) Branch hours for 10 days. hydrOXYzine 2019-0 2020- No [id number] 10mg Take 1 [facility] 10 mg 7-15 -26 tablet by ity of tablet 00:00: 04:59 mouth [place] 00 :00 every 6 Medical (six) Branch hours for 10 days. albuterol 2020-0 Yes [id number] 2.5mg Inhale 3 [facility] 2.5 mg /3 7-12 mL every 4 ity of mL (0.083 00:00: (four) [place] %) 00 hours. May Medical nebulizer also Branch solution nebulize one extra every 6 hours. albuterol 2020-0 Yes [id number] 2{puff} Inhale 2 [facility] 90 7-12 Puffs ity of mcg/actuati 00:00: every 4 [place] on inhaler 00 (four) Medical hours as Branch needed for Wheezing or Shortness of Breath. albuterol 2020-0 Yes [id number] 2.5mg Inhale 3 [facility] 2.5 mg /3 7-12 mL every 4 ity of mL (0.083 00:00: (four) [place] %) 00 hours. May Medical nebulizer also Branch solution nebulize one extra every 6 hours. albuterol 2020-0 Yes [id number] 2{puff} Inhale 2 [facility] 90 7-12 Puffs ity of mcg/actuati 00:00: every 4 [place] on inhaler 00 (four) Medical hours as Branch needed for Wheezing or Shortness of Breath. albuterol 2020-0 Yes [id number] 2.5mg Inhale 3 [facility] 2.5 mg /3 7-12 mL every 4 ity of mL (0.083 00:00: (four) [place] %) 00 hours. May Medical nebulizer also Branch solution nebulize one extra every 6 hours. albuterol 2020-0 Yes [id number] 2{puff} Inhale 2 [facility] 90 7-12 Puffs ity of mcg/actuati 00:00: every 4 [place] on inhaler 00 (four) Medical hours as Branch needed for Wheezing or Shortness of Breath. albuterol 2020-0 Yes [id number] 2.5mg Inhale 3 [facility] 2.5 mg /3 7-12 mL every 4 ity of mL (0.083 00:00: (four) [place] %) 00 hours. May Medical nebulizer also Branch solution nebulize one extra every 6 hours. albuterol 2020-0 Yes [id number] 2{puff} Inhale 2 [facility] 90 7-12 Puffs ity of mcg/actuati 00:00: every 4 [place] on inhaler 00 (four) Medical hours as Branch needed for Wheezing or Shortness of Breath. albuterol 2020-0 Yes [id number] 2.5mg Inhale 3 [facility] 2.5 mg /3 7-12 mL every 4 ity of mL (0.083 00:00: (four) [place] %) 00 hours. May Medical nebulizer also Branch solution nebulize one extra every 6 hours. albuterol 2020-0 Yes [id number] 2{puff} Inhale 2 [facility] 90 7-12 Puffs ity of mcg/actuati 00:00: every 4 [place] on inhaler 00 (four) Medical hours as Branch needed for Wheezing or Shortness of Breath. albuterol 2020-0 Yes [id number] 2.5mg Inhale 3 [facility] 2.5 mg /3 7-12 mL every 4 ity of mL (0.083 00:00: (four) [place] %) 00 hours. May Medical nebulizer also Branch solution nebulize one extra every 6 hours. albuterol 2020-0 Yes [id number] 2{puff} Inhale 2 [facility] 90 7-12 Puffs ity of mcg/actuati 00:00: every 4 [place] on inhaler 00 (four) Medical hours as Branch needed for Wheezing or Shortness of Breath. albuterol 2020-0 Yes [id number] 2.5mg Inhale 3 [facility] 2.5 mg /3 7-12 mL every 4 ity of mL (0.083 00:00: (four) [place] %) 00 hours. May Medical nebulizer also Branch solution nebulize one extra every 6 hours. albuterol 2020-0 Yes [id number] 2{puff} Inhale 2 [facility] 90 7-12 Puffs ity of mcg/actuati 00:00: every 4 [place] on inhaler 00 (four) Medical hours as Branch needed for Wheezing or Shortness of Breath. albuterol 2019-0 2020- No [id number] 2.5mg Inhale 3 [facility] 2.5 mg /3 7-12 08-12 mL every 4 ity of mL (0.083 00:00: 00:00 (four) [place] %) 00 :00 hours. May Medical nebulizer also Branch solution nebulize one extra every 6 hours. albuterol 2019- No [id number] 2{puff} Inhale 2 [facility] 90 7-12 08-12 Puffs ity of mcg/actuati 00:00: 00:00 every 4 [place] on inhaler 00 :00 (four) Medical hours as Branch needed for Wheezing or Shortness of Breath. albuterol 2019- No [id number] 2.5mg Inhale 3 [facility] 2.5 mg /3 7-12 08-12 mL every 4 ity of mL (0.083 00:00: 00:00 (four) [place] %) 00 :00 hours. May Medical nebulizer also Branch solution nebulize one extra every 6 hours. albuterol 2019- No [id number] 2{puff} Inhale 2 [facility] 90 7-12 08-12 Puffs ity of mcg/actuati 00:00: 00:00 every 4 [place] on inhaler 00 :00 (four) Medical hours as Branch needed for Wheezing or Shortness of Breath. FEMYNOR 2020-0 Yes 1{tbl} Take 1 [facility] 0.25-35 6-11 tablet by ity of mg-mcg per 00:00: mouth [place] tablet 00 daily. Medical Branch FEMYNOR 2020-0 Yes 1{tbl} Take 1 [facility] 0.25-35 6-11 tablet by ity of mg-mcg per 00:00: mouth [place] tablet 00 daily. Medical Branch FEMYNOR 2020-0 Yes 1{tbl} Take 1 [facility] 0.25-35 6-11 tablet by ity of mg-mcg per 00:00: mouth [place] tablet 00 daily. Medical Branch FEMYNOR 2020-0 Yes 1{tbl} Take 1 [facility] 0.25-35 6-11 tablet by ity of mg-mcg per 00:00: mouth [place] tablet 00 daily. Medical Branch FEMYNOR 2020-0 Yes 1{tbl} Take 1 [facility] 0.25-35 6-11 tablet by ity of mg-mcg per 00:00: mouth [place] tablet 00 daily. Medical Branch FEMYNOR 2020-0 2020- No 1{tbl} Take 1 [facility] rs 0.25-35 6-11 08-12 tablet by ity of mg-mcg per 00:00: 00:00 mouth [place] tablet 00 :00 daily. Medical Branch FEMYNOR 2020-0 2020- No 1{tbl} Take 1 Un[facility] rs 0.25-35 07-1812 tablet by ity of mg-mcg per 00:00: 00:00 mouth [place] tablet 00 :00 daily. Medical Branch docusate Yes 240mg Take 1 [facility] calcium 240 3-14 capsule by it y of mg capsule 00:00: mouth once [place] 00 daily as Medical needed for Branch Constipati on. ferrous Yes 325mg Take 1 [facility] sulfate 325 3-14 tablet by ity of mg (65 mg 00:00: mouth [place] iron) 00 daily. Medical tablet Branch ibuprofen Yes 600mg Take 1 [facility] rs 600 mg 3-14 tablet by ity of tablet 00:00: mouth [place] 00 every 6 Medical (six) Branch hours as needed for Pain (scale 1-3) or Pain (scale 4-6) (Pain). Take with food or milk. docusate Yes 240mg Take 1 [facility] calcium 240 3-14 capsule by it y of mg capsule 00:00: mouth once [place] 00 daily as Medical needed for Branch Constipati on. ferrous 0 Yes 325mg Take 1 [facility] sulfate 325 3-14 tablet by ity of mg (65 mg 00:00: mouth [place] iron) 00 daily. Medical tablet Branch ibuprofen Yes 600mg Take 1 [facility] rs 600 mg 3-14 tablet by ity of tablet 00:00: mouth [place] 00 every 6 Medical (six) Branch hours as needed for Pain (scale 1-3) or Pain (scale 4-6) (Pain). Take with food or milk. docusate Yes 240mg Take 1 [facility] calcium 240 3-14 capsule by it y of mg capsule 00:00: mouth once [place] 00 daily as Medical needed for Branch Constipati on. ferrous 2018-0 Yes 325mg Take 1 [facility] sulfate 325 3-14 tablet by ity of mg (65 mg 00:00: mouth [place] iron) 00 daily. Medical tablet Branch ibuprofen 0 Yes 600mg Take 1 [facility] rs 600 mg 3-14 tablet by ity of tablet 00:00: mouth [place] 00 every 6 Medical (six) Branch hours as needed for Pain (scale 1-3) or Pain (scale 4-6) (Pain). Take with food or milk. docusate 2018-0 Yes 240mg Take 1 [facility] calcium 240 3-14 capsule by it y of mg capsule 00:00: mouth once [place] 00 daily as Medical needed for Branch Constipati on. ferrous 2018-0 Yes 325mg Take 1 [facility] sulfate 325 3-14 tablet by ity of mg (65 mg 00:00: mouth [place] iron) 00 daily. Medical tablet Branch ibuprofen 2018-0 Yes 600mg Take 1 [facility] rs 600 mg 3-14 tablet by ity of tablet 00:00: mouth [place] 00 every 6 Medical (six) Branch hours as needed for Pain (scale 1-3) or Pain (scale 4-6) (Pain). Take with food or milk. docusate 2018-0 Yes 240mg Take 1 [facility] calcium 240 3-14 capsule by it y of mg capsule 00:00: mouth once [place] 00 daily as Medical needed for Branch Constipati on. ferrous 2018-0 Yes 325mg Take 1 [facility] sulfate 325 3-14 tablet by ity of mg (65 mg 00:00: mouth [place] iron) 00 daily. Medical tablet Branch ibuprofen 2018-0 Yes 600mg Take 1 [facility] rs 600 mg 3-14 tablet by ity of tablet 00:00: mouth [place] 00 every 6 Medical (six) Branch hours as needed for Pain (scale 1-3) or Pain (scale 4-6) (Pain). Take with food or milk. docusate 2018-0 Yes 240mg Take 1 [facility] calcium 240 3-14 capsule by it y of mg capsule 00:00: mouth once [place] 00 daily as Medical needed for Branch Constipati on. ferrous 2018-0 Yes 325mg Take 1 [facility] sulfate 325 3-14 tablet by ity of mg (65 mg 00:00: mouth [place] iron) 00 daily. Medical tablet Branch ibuprofen 2018-0 Yes 600mg Take 1 [facility] rs 600 mg 3-14 tablet by ity of tablet 00:00: mouth [place] 00 every 6 Medical (six) Branch hours as needed for Pain (scale 1-3) or Pain (scale 4-6) (Pain). Take with food or milk. docusate 2018-0 Yes 240mg Take 1 [facility] calcium 240 3-14 capsule by it y of mg capsule 00:00: mouth once [place] 00 daily as Medical needed for Branch Constipati on. ferrous 2018-0 Yes 325mg Take 1 [facility] sulfate 325 3-14 tablet by ity of mg (65 mg 00:00: mouth [place] iron) 00 daily. Medical tablet Branch ibuprofen Yes 600mg Take 1 [facility] rs 600 mg 3-14 tablet by ity of tablet 00:00: mouth [place] 00 every 6 Medical (six) Branch hours as needed for Pain (scale 1-3) or Pain (scale 4-6) (Pain). Take with food or milk. docusate Yes 240mg Take 1 [facility] s calcium 240 3-14 capsule by it y of mg capsule 00:00: mouth once [place] 00 daily as Medical needed for Branch Constipati on. ferrous 0 Yes 325mg Take 1 [facility] sulfate 325 3-14 tablet by ity of mg (65 mg 00:00: mouth [place] iron) 00 daily. Medical tablet Branch ibuprofen Yes 600mg Take 1 [facility] rs 600 mg 3-14 tablet by ity of tablet 00:00: mouth [place] 00 every 6 Medical (six) Branch hours as needed for Pain (scale 1-3) or Pain (scale 4-6) (Pain). Take with food or milk. docusate 0 2020- No 240mg Take 1 Un[facility] rs calcium 240 3-14 08-12 capsule by i ty of mg capsule 00:00: 00:00 mouth once [place] 00 :00 daily as Medical needed for Branch Constipati on. ferrous 2018-0 2020- No 325mg Take 1 Univer s sulfate 325 3-14 08-12 tablet by it y of mg (65 mg 00:00: 00:00 mouth [place] iron) 00 :00 daily. Medical tablet Branch ibuprofen 0 2020- No 600mg Take 1 [facility] ers 600 mg 3-14 08-12 tablet by ity of tablet 00:00: 00:00 mouth [place] 00 :00 every 6 Medical (six) Branch hours as needed for Pain (scale 1-3) or Pain (scale 4-6) (Pain). Take with food or milk. docusate 0 2020- No 240mg Take 1 Un[facility] rs calcium 240 3-14 08-12 capsule by i ty of mg capsule 00:00: 00:00 mouth once [place] 00 :00 daily as Medical needed for Branch Constipati on. ferrous 2019- No 325mg Take 1 Un[facility] s sulfate 325 04-20 tablet by it y of mg (65 mg 00:00: 00:00 mouth [place] iron) 00 :00 daily. Medical tablet Branch ibuprofen 2019- No 600mg Take 1 [facility] ers 600 mg 04-20-12 tablet by ity of tablet 00:00: 00:00 mouth [place] 00 :00 every 6 Medical (six) Branch hours as needed for Pain (scale 1-3) or Pain (scale 4-6) (Pain). Take with food or milk. 2016-02 Yes [id number] 1{packe Take 1 [facility] vit 0-05 t} Packet by ity of 33-iron-fol 00:00: mouth [place] ic-dha 00 daily. Medical (SELECT-OB Branch + DHA) 29 mg iron-1 mg -250 mg combo pack 2016-02 Yes [id number] 1{packe Take 1 [facility] vit 0-05 t} Packet by ity of 33-iron-fol 00:00: mouth [place] ic-dha 00 daily. Medical (SELECT-OB Branch + DHA) 29 mg iron-1 mg -250 mg combo pack 2016-02 Yes [id number] 1{packe Take 1 [facility] vit 0-05 t} Packet by ity of 33-iron-fol 00:00: mouth [place] ic-dha 00 daily. Medical (SELECT-OB Branch + DHA) 29 mg iron-1 mg -250 mg combo pack 2016-02 Yes [id number] 1{packe Take 1 [facility] vit 0-05 t} Packet by ity of 33-iron-fol 00:00: mouth [place] ic-dha 00 daily. Medical (SELECT-OB Branch + DHA) 29 mg iron-1 mg -250 mg combo pack 2016-02 Yes [id number] 1{packe Take 1 [facility] vit 0-05 t} Packet by ity of 33-iron-fol 00:00: mouth [place] ic-dha 00 daily. Medical (SELECT-OB Branch + DHA) 29 mg iron-1 mg -250 mg combo pack 2016-02 Yes [id number] 1{packe Take 1 [facility] vit 0-05 t} Packet by ity of 33-iron-fol 00:00: mouth [place] ic-dha 00 daily. Medical (SELECT-OB Branch + DHA) 29 mg iron-1 mg -250 mg combo pack 2016-02 Yes [id number] 1{packe Take 1 [facility] vit 0-05 t} Packet by ity of 33-iron-fol 00:00: mouth [place] ic-dha 00 daily. Medical (SELECT-OB Branch + DHA) 29 mg iron-1 mg -250 mg combo pack 2016-02 Yes [id number] 1{packe Take 1 [facility] vit 0-05 t} Packet by ity of 33-iron-fol 00:00: mouth [place] ic-dha 00 daily. Medical (SELECT-OB Branch + DHA) 29 mg iron-1 mg -250 mg combo pack 2016-02 2020- No [id number] 1{packe Take 1 [facility] vit 0-05 08-12 t} Packet by ity of 33-iron-fol 00:00: 00:00 mouth [place] ic-dha 00 :00 daily. Medical (SELECT-OB Branch + DHA) 29 mg iron-1 mg -250 mg combo pack 2016-02 2020- No [id number] 1{packe Take 1 [facility] vit 0-05 08-12 t} Packet by ity of 33-iron-fol 00:00: 00:00 mouth [place] ic-dha 00 :00 daily. Medical (SELECT-OB Branch + DHA) 29 mg iron-1 mg -250 mg combo pack Immunizations Ordered Filled Immunization Date Status Comments [facility] e Immunization Name Name TDAP 2020-09-15 Completed [facility] of 00:00:00 [facility] TDAP 2020-09-15 Completed University of 00:00:00 [facility] TDAP 2020-09-15 Completed University of 00:00:00 [facility] TDAP 2020-09-15 Completed University of 00:00:00 [facility] TDAP 2020-09-15 Completed University of 00:00:00 [facility] TDAP 2020-09-15 Completed University of 00:00:00 [facility] TDAP 2020-09-15 Completed University of 00:00:00 [facility] TDAP 2020-09-15 Completed University of 00:00:00 [facility] TDAP 2020-09-15 Completed University of 00:00:00 [facility] TDAP 2020-09-15 Completed University of 00:00:00 [place] [facility] TDAP 2017-02-09 Completed [facility] of 00:00:00 [place] [facility] TDAP 2017-02-09 Completed [facility] of 00:00:00 [place] [facility] TDAP 2017-02-09 Completed [facility] of 00:00:00 [place] [facility] TDAP 2017-02-09 Completed [facility] of 00:00:00 [place] [facility] TDAP 2017-02-09 Completed [facility] of 00:00:00 [place] [facility] TDAP 2017-02-09 Completed [facility] of 00:00:00 [place] [facility] TDAP 2017-02-09 Completed [facility] of 00:00:00 [place] [facility] TDAP 2017-02-09 Completed [facility] of 00:00:00 [place] [facility] TDAP 2017-02-09 Completed [facility] of 00:00:00 [place] [facility] TDAP 2017-02-09 Completed [facility] of 00:00:00 [place] [facility] TDAP 2017-02-09 Completed [facility] of 00:00:00 [place] [facility] TDAP 2017-02-09 Completed [facility] of 00:00:00 [place] [facility] TDAP 2017-02-09 Completed [facility] of 00:00:00 [place] [facility] TDAP 2017-02-09 Completed [facility] of 00:00:00 [place] [facility] TDAP 2017-02-09 Completed [facility] of 00:00:00 [place] [facility] TDAP 2017-02-09 Completed [facility] of 00:00:00 [place] [facility] TDAP 2017-02-09 Completed [facility] of 00:00:00 [place] [facility] TDAP 2017-02-09 Completed [facility] of 00:00:00 [place] [facility] TDAP 2017-02-09 Completed [facility] of 00:00:00 [place] [facility] TDAP 2017-02-09 Completed [facility] of 00:00:00 [place] [facility] TDAP 2017-02-09 Completed [facility] of 00:00:00 [place] [facility] TDAP 2017-02-09 Completed [facility] of 00:00:00 [place] [facility] TDAP 2017-02-09 Completed [facility] of 00:00:00 [place] [facility] TDAP 2017-02-09 Completed [facility] of 00:00:00 [place] [facility] TDAP 2017-02-09 Completed [facility] of 00:00:00 [place] [facility] TDAP 2017-02-09 Completed [facility] of 00:00:00 [place] [facility] TDAP 2017-02-09 Completed [facility] of 00:00:00 [place] [facility] TDAP 2017-02-09 Completed [facility] of 00:00:00 [place] [facility] TDAP 2017-02-09 Completed [facility] of 00:00:00 [place] [facility] TDAP 2017-02-09 Completed [facility] of 00:00:00 [place] [facility] TDAP 2017-02-09 Completed [facility] of 00:00:00 [place] [facility] TDAP 2017-02-09 Completed [facility] of 00:00:00 [place] [facility] TDAP 2017-02-09 Completed [facility] of 00:00:00 [place] [facility] TDAP 2017-02-09 Completed University of 00:00:00 [place] [facility] TDAP 2017-02-09 Completed University of 00:00:00 [place] [facility] TDAP 2017-02-09 Completed [facility] of 00:00:00 [place] [facility] TDAP 2017-02-09 Completed University of 00:00:00 [place] [facility] TDAP 2017-02-09 Completed University of 00:00:00 [place] [facility] TDAP 2017-02-09 Completed University of 00:00:00 [place] [facility] TDAP 2017-02-09 Completed University of 00:00:00 [place] [facility] TDAP 2017-02-09 Completed University of 00:00:00 [place] [facility] TDAP 2017-02-09 Completed University of 00:00:00 [place] [facility] TDAP 2017-02-09 Completed University of 00:00:00 [place] [facility] TDAP 2017-02-09 Completed University of 00:00:00 [place] [facility] TDAP 2017-02-09 Completed University of 00:00:00 [place] [facility] TDAP 2017-02-09 Completed University of 00:00:00 [place] [facility] TDAP 2017-02-09 Completed University of 00:00:00 [place] [facility] TDAP 2017-02-09 Completed University of 00:00:00 [place] [facility] TDAP 2017-02-09 Completed University of 00:00:00 [place] [facility] TDAP 2017-02-09 Completed University of 00:00:00 [place] [facility] TDAP 2017-02-09 Completed University of 00:00:00 [place] [facility] TDAP 2017-02-09 Completed University of 00:00:00 [place] [facility] TDAP 2017-02-09 Completed University of 00:00:00 [place] [facility] TDAP 2017-02-09 Completed University of 00:00:00 [place] [facility] TDAP 2017-02-09 Completed University of 00:00:00 [place] [facility] TDAP 2017-02-09 Completed University of 00:00:00 [facility] TDAP 2017-02-09 Completed University of 00:00:00 [facility] TDAP 2017-02-09 Completed University of 00:00:00 [facility] TDAP 2017-02-09 Completed University of 00:00:00 [facility] TDAP 2007-02-07 Completed University of 00:00:00 [facility] TDAP 2007-02-07 Completed University of 00:00:00 [facility] TDAP 2007-02-07 Completed University of 00:00:00 [facility] TDAP 2007-02-07 Completed University of 00:00:00 [facility] TDAP 2007-02-07 Completed University of 00:00:00 [facility] TDAP 2007-02-07 Completed University of 00:00:00 [facility] TDAP 2007-02-07 Completed University of 00:00:00 [facility] TDAP 2007-02-07 Completed University of 00:00:00 [facility] TDAP 2007-02-07 Completed University of 00:00:00 [facility] TDAP 2007-02-07 Completed University of 00:00:00 [facility] TDAP 2007-02-07 Completed University of 00:00:00 [facility] TDAP 2007-02-07 Completed University of 00:00:00 [facility] TDAP 2007-02-07 Completed University of 00:00:00 [facility] TDAP 2007-02-07 Completed University of 00:00:00 [facility] TDAP 2007-02-07 Completed University of 00:00:00 [facility] TDAP 2007-02-07 Completed University of 00:00:00 [facility] TDAP 2007-02-07 Completed University of 00:00:00 [facility] TDAP 2007-02-07 Completed University of 00:00:00 [facility] TDAP 2007-02-07 Completed University of 00:00:00 [facility] TDAP 2007-02-07 Completed University of 00:00:00 [facility] TDAP 2007-02-07 Completed University of 00:00:00 [facility] TDAP 2007-02-07 Completed University of 00:00:00 [facility] TDAP 2007-02-07 Completed University of 00:00:00 [facility] TDAP 2007-02-07 Completed University of 00:00:00 [facility] TDAP 2007-02-07 Completed University of 00:00:00 [facility] TDAP 2007-02-07 Completed University of 00:00:00 [facility] TDAP 2007-02-07 Completed University of 00:00:00 [facility] TDAP 2007-02-07 Completed University of 00:00:00 [facility] TDAP 2007-02-07 Completed University of 00:00:00 [facility] TDAP 2007-02-07 Completed University of 00:00:00 [facility] TDAP 2007-02-07 Completed University of 00:00:00 [facility] TDAP 2007-02-07 Completed University of 00:00:00 [facility] TDAP 2007-02-07 Completed University of 00:00:00 [facility] TDAP 2007-02-07 Completed University of 00:00:00 [facility] TDAP 2007-02-07 Completed University of 00:00:00 [facility] TDAP 2007-02-07 Completed University of 00:00:00 [facility] TDAP 2007-02-07 Completed University of 00:00:00 [facility] TDAP 2007-02-07 Completed University of 00:00:00 [facility] TDAP 2007-02-07 Completed University of 00:00:00 [facility] TDAP 2007-02-07 Completed University of 00:00:00 [facility] TDAP 2007-02-07 Completed University of 00:00:00 [facility] TDAP 2007-02-07 Completed University of 00:00:00 [facility] TDAP 2007-02-07 Completed University of 00:00:00 [facility] TDAP 2007-02-07 Completed University of 00:00:00 [facility] TDAP 2007-02-07 Completed University of 00:00:00 [facility] TDAP 2007-02-07 Completed University of 00:00:00 [facility] TDAP 2007-02-07 Completed University of 00:00:00 [facility] TDAP 2007-02-07 Completed University of 00:00:00 [facility] TDAP 2007-02-07 Completed University of 00:00:00 [facility] TDAP 2007-02-07 Completed University of 00:00:00 [facility] TDAP 2007-02-07 Completed University of 00:00:00 [facility] TDAP 2007-02-07 Completed [facility] 00:00:00 [facility] TDAP 2007-02-07 Completed University of 00:00:00 [facility] TDAP 2007-02-07 Completed University of 00:00:00 [facility] TDAP 2007-02-07 Completed University of 00:00:00 [facility] TDAP 2007-02-07 Completed University of 00:00:00 [facility] TDAP 2007-02-07 Completed [facility] of 00:00:00 [facility] TDAP 2007-02-07 Completed University of 00:00:00 [facility] TDAP 2007-02-07 Completed University of 00:00:00 [facility] Vital Signs Vital Name Observation Time Observation Value Comments Source Systolic blood 2020-10-16 19:34:00 104 mm[Hg] Univer sity of pressure [facility] Diastolic blood 2020-10-16 19:34:00 64 mm[Hg] Unive rsity of pressure [facility] Heart rate 2020-10-16 19:34:00 95 /min Universi ty [facility] Body temperature 2020-10-16 19:34:00 37.06 Brigitte [facility] rate 2020-10-16 19:34:00 18 /min Univ [facility] Body height 2020-10-16 19:34:00 154.9 cm Univers ty [facility] Body weight 2020-10-16 19:34:00 81.336 kg [facility] BMI 2020-10-16 19:34:00 33.88 kg/m2 Universi ty [facility] Systolic blood 2020-09-15 19:34:00 107 mm[Hg] Univer sity of pressure [facility] Diastolic blood 2020-09-15 19:34:00 67 mm[Hg] Unive rsity of pressure [facility] Heart rate 2020-09-15 19:34:00 98 /min Universi ty [facility] Body temperature 2020-09-15 19:34:00 37.17 Brigitte [facility] Respiratory rate 2020-09-15 19:34:00 16 /min [facility] Body height 2020-09-15 19:34:00 154.9 cm Universi ty [facility] Body weight 2020-09-15 19:34:00 80.922 kg Universi ty of [facility] BMI 2020-09-15 19:34:00 33.71 kg/m2 Universi ty of [facility] Systolic blood 2020-08-28 19:23:00 109 mm[Hg] Univer sity of pressure [facility] Diastolic blood 2020-08-28 19:23:00 70 mm[Hg] Unive rsity of pressure [facility] Heart rate 2020-08-28 19:23:00 107 /min Universi ty of [facility] Body temperature 2020-08-28 19:23:00 36.94 Brigitte Univ ersity of [facility] Respiratory rate 2020-08-28 19:23:00 18 /min Univ ersity of [facility] Body height 2020-08-28 19:23:00 154.9 cm Universi ty of [facility] Body weight 2020-08-28 19:23:00 79.379 kg Universi ty [facility] BMI 2020-08-28 19:23:00 33.07 kg/m2 Universi ty of [facility] Oxygen saturation in 2020-08-28 19:23:00 97 /min University of Arterial blood by [place] [facility] Pulse oximetry [facility] Systolic blood 2020-08-28 19:23:00 109 mm[Hg] Univer sity of pressure [facility] Diastolic blood 2020-08-28 19:23:00 70 mm[Hg] Unive rsity of pressure [facility] Heart rate 2020-08-28 19:23:00 107 /min Universi ty of [facility] Body temperature 2020-08-28 19:23:00 36.94 Brigitte Univ ersity of [facility] Respiratory rate 2020-08-28 19:23:00 18 /min Univ ersity of [facility] Body height 2020-08-28 19:23:00 154.9 cm Universi ty [facility] Body weight 2020-08-28 19:23:00 79.379 kg Universi ty [facility] BMI 2020-08-28 19:23:00 33.07 kg/m2 Universi ty [facility] Oxygen saturation in 2020-08-28 19:23:00 97 /min University of Arterial blood by [employer] gerri Pulse oximetry Branch Systolic blood 2020-08-27 15:37:00 108 mm[Hg] Univer sity of pressure [facility] Diastolic blood 2020-08-27 15:37:00 71 mm[Hg] Unive rsity of pressure [facility] Heart rate 2020-08-27 15:37:00 90 /min Universi ty [facility] Body temperature 2020-08-27 15:37:00 36.83 Brigitte Univ ersity of [facility] Respiratory rate 2020-08-27 15:37:00 16 /min Univ ersity of [facility] Body weight 2020-08-27 15:37:00 80.105 kg Universi ty [facility] BMI 2020-08-27 15:37:00 32.83 kg/m2 Universi ty [facility] Systolic blood 2020-08-27 15:37:00 108 mm[Hg] Univer sity of pressure [facility] Diastolic blood 2020-08-27 15:37:00 71 mm[Hg] Unive rsity of pressure [facility] Heart rate 2020-08-27 15:37:00 90 /min Universi ty [facility] Body temperature 2020-08-27 15:37:00 36.83 Brigitte Univ ersity of [facility] Respiratory rate 2020-08-27 15:37:00 16 /min Univ ersity of [facility] Body weight 2020-08-27 15:37:00 80.105 kg Universi ty [facility] BMI 2020-08-27 15:37:00 32.83 kg/m2 Universi ty of [facility] Systolic blood 2020-07-30 15:52:00 103 mm[Hg] Univer sity of pressure [facility] Diastolic blood 2020-07-30 15:52:00 69 mm[Hg] Unive rsity of pressure [facility] Heart rate 2020-07-30 15:52:00 89 /min Universi ty [facility] Body temperature 2020-07-30 15:52:00 37.5 Brigitte Univ ersity of [facility] Respiratory rate 2020-07-30 15:52:00 16 /min Univ ersity of [facility] Body height 2020-07-30 15:52:00 156.2 cm Universi ty [facility] Body weight 2020-07-30 15:52:00 80.015 kg Universi ty [facility] BMI 2020-07-30 15:52:00 32.79 kg/m2 Universi ty [facility] Systolic blood 2020-07-01 19:19:00 100 mm[Hg] Univer sity of pressure [facility] Diastolic blood 2020-07-01 19:19:00 62 mm[Hg] Unive rsity of pressure [facility] Heart rate 2020-07-01 19:19:00 79 /min Universi ty of [facility] Body temperature 2020-07-01 19:19:00 37.06 Brigitte Univ ersity of [facility] Respiratory rate 2020-07-01 19:19:00 16 /min Univ ersity of [facility] Body height 2020-07-01 19:19:00 156.2 cm Universi ty [facility] Body weight 2020-07-01 19:19:00 79.652 kg [facility]i ty [facility] BMI 2020-07-01 19:19:00 32.64 kg/m2 Universi ty [facility] Systolic blood 2020-06-17 13:54:00 105 mm[Hg] Univer sity of pressure [facility] Diastolic blood 2020-06-17 13:54:00 70 mm[Hg] Unive rsity of pressure [facility] Heart rate 2020-06-17 13:54:00 78 /min Universi ty of [facility] Body temperature 2020-06-17 13:54:00 36.94 Brigitte Univ ersity of [facility] Respiratory rate 2020-06-17 13:54:00 16 /min Univ ersity of [facility] Body height 2020-06-17 13:54:00 152.4 cm Universi ty [facility] Body weight 2020-06-17 13:54:00 80.468 kg [facility]i ty [facility] BMI 2020-06-17 13:54:00 34.65 kg/m2 Universi ty [facility] Systolic blood 2020-06-04 03:00:00 125 mm[Hg] Univer sity of pressure [facility] Diastolic blood 2020-06-04 03:00:00 65 mm[Hg] Unive rsity of pressure [facility] Heart rate 2020-06-04 03:00:00 90 /min Universi ty of [facility] Body temperature 2020-06-04 03:00:00 36.89 Brigitte Univ ersity of [facility] Respiratory rate 2020-06-04 03:00:00 22 /min Univ ersity of [facility] Oxygen saturation in 2020-06-04 03:00:00 100 /min University of Arterial blood by [facility] Pulse oximetry Branch Body weight 2020-06-04 01:18:00 80.74 kg Universi ty [facility] BMI 2020-06-04 01:18:00 33.63 kg/m2 Universi ty [facility] Systolic blood 2020-05-13 15:04:00 103 mm[Hg] Univer sity of pressure [facility] Diastolic blood 2020-05-13 15:04:00 72 mm[Hg] Unive rsity of pressure [facility] Heart rate 2020-05-13 15:04:00 87 /min Universi ty of [facility] Body temperature 2020-05-13 15:04:00 36.83 Brigitte Univ ersity of [facility] Respiratory rate 2020-05-13 15:04:00 16 /min Univ ersity of [facility] Body height 2020-05-13 15:04:00 154.9 cm Universi ty [facility] Body weight 2020-05-13 15:04:00 80.372 kg Universi ty [facility] BMI 2020-05-13 15:04:00 33.48 kg/m2 Universi ty [facility] Systolic blood 2020-04-03 07:04:39 114 mm[Hg] Univer sity of pressure [facility] Diastolic blood 2020-04-03 07:04:39 77 mm[Hg] Unive rsity of pressure [facility] Heart rate 2020-04-03 07:04:39 94 /min Universi ty of [facility] Respiratory rate 2020-04-03 07:04:39 15 /min Univ ersity of [facility] Oxygen saturation in 2020-04-03 07:04:39 100 /min University of Arterial blood by [facility] Pulse oximetry Branch Body temperature 2020-04-03 05:13:00 36.61 Brigitte Univ ersity of [facility] Body height 2020-04-03 05:13:00 154.9 cm Universi ty [facility] Body weight 2020-04-03 05:13:00 83.915 kg [facility]i ty [facility] BMI 2020-04-03 05:13:00 34.96 kg/m2 Universi ty [facility] Systolic blood 2020-04-01 15:34:00 117 mm[Hg] Univer sity of pressure [facility] Diastolic blood 2020-04-01 15:34:00 81 mm[Hg] Unive rsity of pressure [facility] Heart rate 2020-04-01 15:34:00 101 /min Universi ty of [facility] Body temperature 2020-04-01 15:34:00 36.61 Brigitte Univ ersity of [facility] Respiratory rate 2020-04-01 15:34:00 16 /min Univ ersity of [facility] Body height 2020-04-01 15:34:00 152.4 cm Universi ty [facility] Body weight 2020-04-01 15:34:00 83.093 kg [facility]i ty [facility] BMI 2020-04-01 15:34:00 35.78 kg/m2 Universi ty [facility] Systolic blood 2019-09-14 18:04:00 122 mm[Hg] Univer sity of pressure [facility] Diastolic blood 2019-09-14 18:04:00 81 mm[Hg] Unive rsity of pressure [facility] Heart rate 2019-09-14 18:04:00 94 /min Universi ty of [facility] Body temperature 2019-09-14 18:04:00 37.11 Brigitte Univ ersity of [facility] Respiratory rate 2019-09-14 18:04:00 18 /min Univ ersity of [facility] Body height 2019-09-14 18:04:00 152.4 cm Universi ty [facility] Body weight 2019-09-14 18:04:00 81.647 kg [facility]i ty [facility] BMI 2019-09-14 18:04:00 35.15 kg/m2 Universi ty [facility] Oxygen saturation in 2019-09-14 18:04:00 97 /min University Arterial blood by [facility] Pulse oximetry Branch Systolic blood 2019-08-23 20:22:00 110 mm[Hg] Univer sity of pressure [facility] Diastolic blood 2019-08-23 20:22:00 82 mm[Hg] Unive rsity of pressure [facility] Heart rate 2019-08-23 20:22:00 106 /min Universi ty of [facility] Body temperature 2019-08-23 20:22:00 37 Brigitte Univ ersity of [facility] Respiratory rate 2019-08-23 20:22:00 18 /min Univ ersity of [facility] Body height 2019-08-23 20:22:00 152.4 cm [facility]i ty [facility] Body weight 2019-08-23 20:22:00 81.92 kg [facility]i ty [facility] BMI 2019-08-23 20:22:00 35.27 kg/m2 Universi ty [facility] Oxygen saturation in 2019-08-23 20:22:00 96 /min University of Arterial blood by [facility] Pulse oximetry Branch Systolic blood 2019-08-22 19:15:00 112 mm[Hg] Univer sity of pressure [facility] Diastolic blood 2019-08-22 19:15:00 93 mm[Hg] Unive rsity of pressure [facility] Heart rate 2019-08-22 19:14:00 97 /min Universi ty [facility] Body temperature 2019-08-22 19:14:00 36.44 Brigitte Univ ersity of [facility] Respiratory rate 2019-08-22 19:14:00 16 /min Univ ersity of [facility] Body weight 2019-08-22 19:14:00 81.647 kg [facility]i ty [facility] BMI 2019-08-22 19:14:00 34.01 kg/m2 Universi ty [facility] Oxygen saturation in 2019-08-22 19:14:00 99 /min University of Arterial blood by [facility] Pulse oximetry Branch Systolic blood 2019-08-22 18:32:00 110 mm[Hg] Univer sity of pressure [facility] Diastolic blood 2019-08-22 18:32:00 73 mm[Hg] Unive rsity of pressure [facility] Heart rate 2019-08-22 18:32:00 98 /min Universi ty of [facility] Body temperature 2019-08-22 18:32:00 37.17 Brigitte Univ ersity of [facility] Respiratory rate 2019-08-22 18:32:00 16 /min Univ ersity of [facility] Body height 2019-08-22 18:32:00 154.9 cm Universi ty of [facility] Body weight 2019-08-22 18:32:00 82.464 kg Universi ty of [facility] BMI 2019-08-22 18:32:00 34.35 kg/m2 Universi ty [facility] Oxygen saturation in 2019-08-22 18:32:00 100 /min University of Arterial blood by [facility] Pulse oximetry Branch Systolic blood 2019-08-20 01:55:00 117 mm[Hg] Univer sity of pressure [facility] Diastolic blood 2019-08-20 01:55:00 88 mm[facility]Hg] [facility] 2019-08-20 01:55:00 86 /min Universi ty of [facility] Body temperature 2019-08-20 01:55:00 37.56 Brigitte [facility] Respiratory rate 2019-08-20 01:55:00 22 /min [facility] Body height 2019-08-20 01:55:00 152.4 cm Universi ty [facility] Body weight 2019-08-20 01:55:00 83.462 kg Universi ty [facility] BMI 2019-08-20 01:55:00 35.94 kg/m2 Universi ty [facility] Oxygen saturation in 2019-08-20 01:55:00 99 /min [place] of Arterial blood by [facility] Pulse oximetry Branch Procedures Procedure Date / Time Performing Clinician Source Performed CENTRAL NEURAXIAL BLOCK 2020-11-26 02:06:09 Carine Smith [facility] POCT URINALYSIS 2020-10-16 19:37:00 Dany Carias [facility] STERILIZATION CONSENT 2020-10-16 05:01:00 Doctor Unassigned, No [facility] FORM Name [facility] TDAP VACCINE, >11 YRS, 2020-09-15 19:37:56 [facility] 2020-09-15 19:36:00 Dany Carias [facility] XR CHEST 2 VW 2020-08-28 21:03:53 [facility] POCT GRP A STREP 2020-08-28 19:43:00 Vipul [facility] (MOLECULAR) [facility] POCT URINALYSIS 2020-08-27 16:49:00 Dany Carias [facility] ASSIGNMENT OF BENEFITS 2020-08-27 15:01:02 Doctor Unassigned, No [facility] POCT URINALYSIS 2020-07-30 16:02:00 Dany Carias [facility] POCT URINALYSIS 2020-07-01 19:24:00 Dany Carias [facility] POCT URINALYSIS 2020-06-17 13:56:00 Dany Carias [facility] RAPID STREP SCREEN FOR 2020-06-04 02:00:00 Julio Da Silva [facility] GROUP A [facility] COVID-19 (ID NOW RAPID 2020-06-04 02:00:00 Julio Da Silva [facility] TESTING) [facility] POCT URINALYSIS 2020-05-13 15:06:00 Dany Carias [facility] POCT TEST 2020-04-03 05:44:00 Yoshi Esparza [facility] URINALYSIS 2020-04-03 05:30:00 Yoshi Esparza [facility] POCT TEST 2020-04-01 15:37:00 Dany Carias [facility] POCT URINALYSIS 2020-04-01 15:36:00 Dany Carias [facility] ASSIGNMENT OF BENEFITS 2020-04-01 15:15:16 Doctor Unassigned, No [facility] XR SPINE THORACIC 4 2019-09-21 17:31:22 [facility] SP[facility] THORACIC 4 2019-09-21 17:31:22 Christina [facility]ful [facility] CERVICAL SPINE 4 2019-09-21 16:12:52 Yoseph Thakkar A U [facility] XR CERVICAL SPINE 4 VW 2019-09-21 16:12:52 Yoseph Thakkar U [facility] ASSIGNMENT OF BENEFITS 2019-09-20 14:56:33 Doctor Unassigned, No [facility] ASSIGNMENT OF BENEFITS 2019-08-20 01:45:49 Doctor Unassigned, No [facility] CONSENT/REFUSAL FOR 2019-08-20 01:44:04 Doctor Unassigned, No [facility] DIAGNOSIS AND TREATMENT [facility] Encounters Start End Encounter Admission Attending Care Care Encounter Source Date/Time Date/Time Type Type Clinicians Facility Department ID 2020-12-09 Emergency [facility] [id number] Univers 07:57:56 ity of [facility] 2020-12-07 Emergency [facility] [id number] Univers 15:42:49 ity of [facility] 2020-12-07 Emergency [facility] [id number] Univers 01:14:36 ity of [facility] 2020-12-05 Emergency [facility] [id number] Univers 06:56:18 ity of [facility] 2020-12-05 Emergency [facility] [id number] [facility] Inpatient HCACL MALACHI [id number] [facility] 08:59:00 [id number] [facility] 2020-11-26 2020-11-26 Outpatient INDUCTION, [facility] [id number] Univers 08:00:00 08:00:00 KEARA [id number] ity [facility] 2020-11-25 2020-11-26 [facility]est[facility] [id number] Univers 20:45:00 00:47:00 Event Carine De La Fuente [id number] i ty of Lorenza [id number] [facility] [id number] [place] [address] Branch 2020-11-24 2020-11-24 Refalesha [facility] [id number] Univers 00:00:00 00:00:00 Dany Banks NEONATOLOGIST [id number] [facility] [id number] Jaison as MATERNAL [phone] [facility] & [address] 2020-11-20 2020-11-20 Outpatient Jocelyn SANCHEZ [facility] [id number] Univers 10:15:00 10:15:00 NORA [id number] [facility] 2020-11-20 2020-11-20 [facility] [id number] Univers 10:15:00 10:15:00 NORA [facility] 2020-11-17 2020-11-17 Telephone [facility] [id number] Univers 00:00:00 00:00:00 Nora Montoya NEONATOLOGIST [id number] it y of REGIONAL [id number] Jaison as MATERNAL [id number] [facility] & [address] 2020-11-10 2020-11-10 Outpatient Jocelyn SANCHEZ [facility] [id number] Univers 10:30:00 10:30:00 NORA [id number] [facility] 2020-11-10 2020-11-10 [facility] [id number] Univers 10:30:00 10:30:00 NORA [facility] 2020-10-30 2020-10-30 [facility] [id number] Univers 12:45:00 12:45:00 NORA [id number] [facility] 2020-10-30 2020-10-30 [facility] [id number] Univers 12:45:00 12:45:00 NORA [facility] 2020-10-16 2020-10-16 Routine [facility] [id number] Univers 14:23:36 15:09:33 Nora Montoya NEONATOLOGIST [id number] i ty of Visit REGIONAL [id number] Jaison as MATERNAL [id number] [facility] & [address] 2020-10-16 2020-10-16 [facility] [id number] Univers 13:00:00 13:00:00 NORA [id number] [facility] 2020-10-16 2020-10-16 Outpatient Jocelyn SANCHEZ [facility] [id number] Univers 13:00:00 13:00:00 NORA isac [facility] 2020-10-16 2020-10-16 Orders Doctor KEARA [id number] Univers 00:00:00 00:00:00 Only Unassigned, CASI [id number] ity [facility] [id number] Jaison as [id number] [address] 2020-10-15 2020-10-15 Outpatient Jocelyn CARIAS [facility] [id number] Univers 09:45:00 09:45:00 DANY [id number] ity o [facility] 2020-10-15 2020-10-15 Outpatient Jocelyn CARIAS [facility] [id number] Univers 09:45:00 09:45:00 DANY isac o [facility] 2020-10-07 2020-10-07 Outpatient Jocelyn SANCHEZ [facility] [id number] Univers 08:00:00 08:00:00 NORA [id number] [facility] 2020-10-07 2020-10-07 [facility] [id number] Univers 08:00:00 08:00:00 NORA isac [facility] 2020-09-30 2020-09-30 Outpatient Jocelyn CARIAS [facility] [id number] Univers 18:00:00 18:00:00 DANY ity o [facility] 2020-09-30 2020-09-30 Outpatient Jocelyn CARIAS [facility] [id number] Univers 11:45:00 11:45:00 DANY [id number] ity o [facility] 2020-09-30 2020-09-30 Outpatient Jocelyn CARIAS [facility] [id number] Univers 11:45:00 11:45:00 DANY ity o [facility] 2020-09-29 2020-09-29 [facility] [id number] Univers 16:45:00 16:45:00 DANY [id number] ity o f [facility] 2020-09-29 2020-09-29 [facility] [id number] Univers 16:45:00 16:45:00 DANY boyery o f [facility] 2020-09-15 2020-09-15 Routine [facility] [id number] Univers 13:58:57 15:37:45 Dany R NEONATOLOGIST [id number] ity of Visit REGIONAL [id number] Jaison as MATERNAL [id number] Med ical & CHILD [address] [place] [address] 2020-09-15 2020-09-15 [facility] [id number] Univers 13:15:00 13:15:00 DANY vance o nikia [facility] 2020-09-12 2020-09-12 Nurse Leidy Duran [id number] [id number] Univers 00:00:00 00:00:00 Triage CASI [id number] it y of HOSPITAL [id number] Jaison as [id number] [address] 2020-08-29 2020-08-29 Telephone NurseDrake RUST [id number] Univers 00:00:00 00:00:00 Urgent Care Health [id number] ity of Surgical [id number] Jaison as Specialti [id number] Dc dical [address] [facility] 2020-08-28 2020-08-28 Formerly [facility] 1.2.840.114 [id number] 15:21:38 23:59:00 Encounter [place] De [place] [id number] [place] [id number] [place] [id number] 2020-08-28 2020-08-28 Formerly [facility] 1.2.840.114 [id number] Univers 15:21:38 23:59:00 Encounter [place] De [place] [id number] ity of [id number] [place] [id number] [facility] [address] [place] [address] 2020-08-28 2020-08-28 Urgent [facility] 1.2.840.114 [id number] 14:13:24 15:23:42 Care [facility] [id number] [place] [id number] Professio [id number] [place] [address] [employer] [facility] [employer] 2020-08-28 2020-08-28 Urgent [place] Matthew RUST 1.2.840.114 [id number] Univers 14:13:24 15:23:42 Care Maurice Toby [facility] 350.1.13.10 [facility] 4.2.7.2.686 Jasion as Professio [phone] Dc dical [address] Office [facility] 2020-08-28 2020-08-28 [facility] [id number] Univers 14:20:00 14:20:00 TOBY [facility] 2020-08-28 2020-08-28 Outpatient R [facility] [id number] -20 Univers 13:00:00 13:00:00 [id number] [facility] 2020-08-27 2020-08-27 Routine [facility] 1.2.840.114 [id number] 10:01:23 11:16:37 Roshunda R NEONATOLOGIST 350.1.13.10 Visit REGIONAL 4.2.7.2.686 MATERNAL [phone] & CHILD [address] [place] [address] 2020-08-27 2020-08-27 Routine [facility] 1.2.840.114 [id number] Univers 10:01:23 11:16:37 Roshunda R NEONATOLOGIST 350.1.13.10 ity of Visit REGIONAL 4.2.7.2.686 Jaison as MATERNAL [phone] Med ical & CHILD [address] [place] [address] 2020-08-27 2020-08-27 [facility] [id number] -20 Univers 09:00:00 09:00:00 ROSHUNDA [id number] ity o f [facility] 2020-08-27 2020-08-27 Outpatient R JV [facility] [id number] Univers 09:00:00 09:00:00 DANY ity o f [facility] 2020-08-27 2020-08-27 Orders Doctor KEARA 1.2.840.114 [id number] 00:00:00 00:00:00 Only Unassigned, CASI 350.1.13.10 [facility] 4.2.7.2.686 [id number] 009 2020-08-27 2020-08-27 Orders Doctor KEARA 1.2.840.114 [id number] Univers 00:00:00 00:00:00 Only Unassigned, CASI 350.1.13.10 ity of [facility] 4.2.7.2.686 Jaison as [phone] [facility] [address] 2020-08-19 2020-08-19 Uranium Processing Supervisor 1, [facility] UNIVERSIT 1.2.840.11 [id number] 14:50:51 15:35:51 Visit [facility] Room Y HEALTH 350.1.13.10 CLINICS 4.2.7.2.686 [phone] [facility] 2020-08-19 2020-08-19 Uranium Processing Supervisor 1, [facility] Room UNIVERSIT 1 .2.840.114 [id number] Univers 14:50:51 15:35:51 Visit Arcelia Lucasjuanyemile, Daniel Y HEALTH 350.1 .13.10 ity of CLINICS [place] [phone] [facility] [address] 2020-08-19 2020-08-19 Outpatient P [facility] [id number] -20 Univers 14:15:00 14:15:00 [id number] ity [facility] 2020-08-19 2020-08-19 Outpatient P [facility] [id number] Univers 14:15:00 14:15:00 ity [facility] 2020-08-11 2020-08-11 Outpatient R [facility] [id number] -[id number] Univers 08:45:00 08:45:00 [id number] ity [facility] 2020-08-112020-08-11 Outpatient P [facility] [id number] Univers 08:45:00 08:45:00 ity of [facility] 2020-08-06 2020-08-06 Nurse KEARA Jiménez 1.2.840.602 [id number] 00:00:00 00:00:00 Triage Mike CASI 350.1.13.10 HOSPITAL 4.2.7.2.686 [id number] [facility] 2020-08-06 2020-08-06 KEARA Moyer 1.2.468.585 [id number] Univers 00:00:00 00:00:00 Triage Mike CASI 350.1.13.10 it y of [facility] 4.2.7.2.686 Jaison as [phone] [address] 2020-08-06 2020-08-06 [place] Jv RUST 1.2.370.235 [id number] Univers 00:00:00 00:00:00 Rosbenjaminnda R NEONATOLOGIST 350.1.13.10 ity of REGIONAL 4.2.7.2.686 Jaison as MATERNAL [phone] Med ical & CHILD [address] [place] [address] 2020-07-30 2020-07-30 [facility] 1.2.840.114 [id number] Univers 10:22:14 10:37:14 Rosbenjaminnda R NEONATOLOGIST 350.1.13.[address] [facility] 4.2.7.2.686 Jaison as MATERNAL [phone] [facility] ical & CHILD [address] [place] [address] 2020-07-30 2020-07-30 Outpatient Jocelyn CARIAS [facility] [id number] -20 Univers 10:15:00 10:15:00 ROSHUNDA [id number] ity o f [facility] 2020-07-30 2020-07-30 Outpatient oJcelyn CARIAS [facility] [id number] Univers 10:15:00 10:15:00 ROSHUNDA ity o f [facility] 2020-07-21 2020-07-21 Outpatient Jocelyn CARIAS [facility] [id number] Univers 13:45:00 13:45:00 ROSHUNDA ity o f [facility] 2020-07-21 2020-07-21 Outpatient [facility] [id number] -20 Univers 10:30:00 10:30:00 [id number] ity of [facility] 2020-07-17 2020-07-17 Outpatient R JV, [facility] [id number] -20 Univers 09:00:00 09:00:00 LISANDROA [id number] ity o f [facility] 2020-07-17 2020-07-17 [facility] [id number] Univers 09:00:00 09:00:00 FELICITASNDA ity o f [facility] 2020-07-14 2020-07-14 Uranium Processing Supervisor [facility] 1.2 .840.114 [id number] Univers 09:45:41 11:00:41 Visit Jordan Domingo NEONATOLOGIST 350.1.13.10 ity of REGIONAL 4.2.7.2.686 Jaison as MATERNAL [phone] Med ical & CHILD [facility] 2020-07-14 2020-07-14 Outpatient R [facility] [id number] -20 Univers 10:00:00 10:00:00 [id number] ity of [facility] 2020-07-14 2020-07-14 Outpatient P [facility] [id number] Univers 10:00:00 10:00:00 ity of [facility] 2020-07-14 2020-07-14 Khoi Sanchez RUST 1.2.540.797 [id number] Univers 00:00:00 00:00:00 Management Nora Montoya NEONATOLOGIST 350.1.13.10 ity of REGIONAL 4.2.7.2.686 Jaison as MATERNAL [phone] [facility] & CHILD [address] [place] [address] 2020-07-01 2020-07-01 Routine Jv RUST 1.2.840.114 [id number] Univers 13:52:00 14:58:28 Roslanaa R NEONATOLOGIST 350.1.13.10 ity of Visit REGIONAL 4.2.7.2.686 Jaison as MATERNAL [id number] [facility] ical & CHILD [address] [place] [address] 2020-07-01 2020-07-01 Outpatient JV [facility] [id number] -20 Univers 13:45:00 13:45:00 ROSBENJAMINNDA [id number] ity o f [facility] 2020-07-01 2020-07-01 Outpatient Jocelyn CARIAS [facility] [id number] Univers 13:45:00 13:45:00 ROSHUNDA ity o [facility] 2020-07-01 2020-07-01 Telephone [facility] 1.2.099.641 [id number] Univers 00:00:00 00:00:00 Rosbenjaminnda R NEONATOLOGIST 350.1.13.10 ity of REGIONAL 4.2.7.2.686 Jaison as MATERNAL [phone] [facility] & CHILD [address] [place] [address] 2020-06-17 2020-06-17 Routine [facility] 1.2.840.114 [id number] Univers 08:48:55 09:25:15 Rosbenjaminnda R NEONATOLOGIST 350.1.13.10 ity of Visit REGIONAL 4.2.7.2.686 Jaison as MATERNAL [phone] [facility] & [address] 2020-06-17 2020-06-17 Outpatient Jocelyn CARIAS [facility] [id number] -20 Univers 08:45:00 08:45:00 FELICITASNDA [id number] ity o [facility] 2020-06-17 2020-06-17 Outpatient Jocelyn CARIAS [facility] [id number] Univers 08:45:00 08:45:00 ROSHUNDA ity o [facility] 2020-06-10 2020-06-10 Outpatient Jocelyn CARIAS [facility] [id number] -20 Univers 15:45:00 15:45:00 ROSHUNDA [id number] ity o [facility] 2020-06-10 2020-06-10 Outpatient Jocelyn CARIAS [facility] [id number] Univers 15:45:00 15:45:00 ROSBENJAMINNDA ity o [facility] 2020-06-03 2020-06-03 Emergency Da Silva, TRAUMA 1.2.347.033 [id number] Univers 20:19:00 22:12:00 [facility] 350.1.13.10 it[place] [id number] [address] 2020-05-13 2020-05-13 [facility] 1.2.840.114 [id number] Univers 09:59:20 10:14:20 Roshunda R NEONATOLOGIST 350.1.13.10 ity of Visit REGIONAL 4.2.7.2.686 Jaison as MATERNAL [phone] [facility] ical & CHILD [address] [place] [address] 2020-05-13 2020-05-13 Outpatient Jocelyn CARIAS [facility] [id number] -20 Univers 10:00:00 10:00:00 FELICITASNDA [id number] ity o [facility] 2020-05-13 2020-05-13 [facility] [id number] Univers 10:00:00 10:00:00 ROSBENJAMINNDA ity o [facility] 2020-05-06 2020-05-06 [facility] [id number] -20 Univers 11:00:00 11:00:00 FELICITASNDA [id number] itisac o [facility] 2020-05-06 2020-05-06 Outpatient [facility] [id number] Univers 11:00:00 11:00:00 FELICITASNDA rosalind o [facility] 2020-04-29 2020-04-29 Outpatient [facility] [id number] -20 Univers 10:45:00 10:45:00 ROSHUNDA [id number] itisac o [facility] 2020-04-29 2020-04-29 Outpatient [facility] [id number] Univers 10:45:00 10:45:00 ROSHUNDA ity o [facility] 2020-04-29 2020-04-29 Telephone [facility] 1.2.853.322 [id number] Univers 00:00:00 00:00:00 Roshunda R NEONATOLOGIST 350.1.13.10 ity of REGIONAL 4.2.7.2.686 Jaison as MATERNAL [id number] [facility] ical & CHILD [address] [place] [address] 2020-04-22 2020-04-22 Nurse KEARA Garcia 1.2.840.114 [id number] Univers 00:00:00 00:00:00 Triage Lynn MCCALLUMY 350.1.13.10 i ty of [facility] 4.2.7.2.686 Jaison as [phone] [address] 2020-04-09 2020-04-09 Case Jv RUST 1.2.840.114 [id number] Univers 00:00:00 00:00:00 Management Dany R NEONATOLOGIST 350.1.13.[address] [facility] 4.2.7.2.686 Jaison as MATERNAL [phone] [facility] & CHILD [address] [place] [address] 2020-04-08 2020-04-08 Uranium Processing Supervisor Ultrasound, Srinivasaelizabeth RUST 1.2 .840.114 [id number] Univers 11:32:55 12:14:18 Visit Tracey Jamil NEONATOLOGIST 350.1.13.[address] [facility] 4.2.7.2.686 Jaison as MATERNAL [phone] [facility] & CHILD [address] [facility] 2020-04-08 2020-04-08 Outpatient R [facility] [id number] -20 Univers 11:30:00 11:30:00 [id number] ity [facility] 2020-04-08 2020-04-08 Outpatient P [facility] [id number] Univers 11:30:00 11:30:00 ity [facility] 2020-04-08 2020-04-08 Jewell Carias RUST 1.2.840.114 [id number] Univers 00:00:00 00:00:00 Dany R NEONATOLOGIST 350.1.13.[address] [facility] 4.2.7.2.686 Jaison as MATERNAL [phone] [facility] & CHILD [address] [place] [address] 2020-04-02 2020-04-03 Emergency Vilma NECHARLINE 1.2.840.114 [id number] Univers 23:15:00 01:12:00 [facility] 350.1.13.10 it y of [facility] 4.2.7.2.686 [place] [facility] [phone] [address] ([facility]) 2020-04-02 2020-04-02 Telephone Jv MADAN 1.2.104.542 [id number] Univers 00:00:00 00:00:00 Roshunda R NEONATOLOGIST 350.1.13.10 ity of REGIONAL 4.2.7.2.686 Jaison as MATERNAL [phone] Med ical & CHILD [address] [place] [address] 2020-04-02 2020-04-02 Telephone Carias [facility]UST 1.2.493.579 [id number] Univers 00:00:00 00:00:00 Roshunda R NEONATOLOGIST 350.1.13.10 ity of REGIONAL 4.2.7.2.686 Jaison as MATERNAL [phone] [facility] ical & CHILD [address] [place] [address] 2020-04-01 2020-04-01 Initial [facility] 1.2.840.114 [id number] Univers 09:25:04 11:05:29 Roshunda R NEONATOLOGIST 350.1.13.10 ity of Visit REGIONAL 4.2.7.2.686 Jaison as MATERNAL [phone] [facility] ical & [address] 2020-04-01 2020-04-01 Outpatient [facility] [id number] -[id number] Univers 08:30:00 08:30:00 [id number] ity of [facility] 2020-04-01 2020-04-01 Outpatient R [facility] [id number] Univers 08:30:00 08:30:00 ity of [facility] 2020-04-01 2020-04-01 Orders Doctor SARAH 1.2.840.114 [id number] Univers 00:00:00 00:00:00 Only Unassigned, CASI 350.1.13.10 ity of [place] [facility] 4.2.7.2.686 Jaison as [phone] [address] 2019-12-18 2019-12-18 Outpatient R [facility] [id number] -[id number] Univers 09:30:00 09:30:00 ity of [facility] 2019-12-18 2019-12-18 Outpatient R [facility] [id number] Univers 09:30:00 09:30:00 ity of [facility] 2019-10-29 2019-10-29 [facility] [id number]-20 Univers 10:30:00 10:30:00 WONDIFUL [id number] ity o f [facility] 2019-09-26 2019-09-26 Patient [facility] 1.2.840.114 [id number] Univers 00:00:00 00:00:00 Secure Msg Wondiful A [place] 350.1.13.10 ity of [place].7.2.686 [place] Profess[place] [phone] Dc dic[address] 2019-09-21 2019-09-21 [facility] 1.2.058.057 [id number] Univers 11:10:44 23:59:00 Encounter Wondiful A [place] 350.1.13.10 ity of [place].7.2.686 [place] [phone] [address] 2019-09-21 2019-09-21 [facility] 1.2.693.266 [id number] Univers 11:00:00 11:09:00 Encounter Wondiful A [place] 350.1.13.10 ity of [place].7.2.686 [place] [phone] [address] 2019-09-21 2019-09-21 [facility] 1.2.568.949 [id number] Univers 09:56:26 10:59:00 Encounter Wondiful A [place] 350.1.13.10 ity of [place] 4.2.7.2.686 [place] [phone] [address] 2019-09-21 2019-09-21 Outpatient [facility] [id number]-20 Univers 10:00:00 10:00:00 WONDIFUL [id number] ity o f [facility] 2019-09-21 2019-09-21 Outpatient [facility] [id number] Univers 00:00:00 00:00:00 WONDIFUL ity o f [facility] 2019-09-21 2019-09-21 Case Sandra [facility] 1.2.840.114 [id number] Univers 00:00:00 00:00:00 Management Wondiful A [place] 350.1.13.10 ity of [place].2.686 [place] Profess[place] [phone] Dc dic[address] 2019-09-21 2019-09-21 Patient Sandra [facility] 1.2.840.114 [id number] Univers 00:00:00 00:00:00 Secure Msg Wondiful A [place] 350.1.13.10 ity of [place].2.[place] Profess[place] [phone] [address] 2019-09-20 2019-09-20 Laboratory Only, Adc Test RUST 1.2.840. 114 [id number] Univers 10:01:43 10:16:43 Only Kevan Beaulieu [place] 350.1.13.10 ity of [place]2.7.2.686 [place] [phone] [address] 2019-09-20 2019-09-20 Uranium Processing Supervisor Naomi, Adc Lab Main RUST 1.2.8 40.114 [id number] Univers 09:55:41 10:10:41 Visit Yoseph Thakkar A [place] 350.1.13. 10 ity of [place]2.7.2.686 [place] Profess[place] [id number] [address] 2019-09-20 2019-09-20 Outpatient SANDRA [facility] [id number]-20 Univers 09:30:00 09:30:00 WONDIFUL [id number] ity o f [facility] 2019-09-20 2019-09-20 Outpatient R SANDRA [facility] [id number] Univers 00:00:00 00:00:00 WONDIFUL ity o f [facility] 2019-09-20 2019-09-20 Orders Doctor SARAH 1.2.840.114 [id number] Univers 00:00:00 00:00:00 Only Unassigned, CASI 350.1.13.10 ity of [facility] 4.2.7.2.686 Jaison as [phone] [address] 2019-09-19 2019-09-19 Telemedici [facility] 1.2.840.114 [id number] Univers 13:45:12 15:57:17 ne Visit Wondiful A [place] 350.1.13.10 ity of [place].2.[place] Profess[place] [phone] [address] 2019-09-19 2019-09-19 Outpatient R SANDRA [facility] [id number] Univers 09:45:00 09:45:00 WONDIFUL ity o f [facility] 2019-09-19 2019-09-19 Outpatient [facility] [id number]-20 Univers 08:45:00 08:45:00 WONDIFUL [id number] ity o f [facility] 2019-09-19 2019-09-19 Telephone [facility] 1.2.840.114 [id number] Univers 00:00:00 00:00:00 Wondiful A Health 350.1.13.10 ity of [place] 4.2.7.2.686 Jaison as Professio [phone] [address] Office [facility] 2019-09-14 2019-09-14 Urgent Pob1, Acute Care Clinic RUST 1. 2.840.114 [id number] Univers 12:46:19 13:54:37 Tyrese Lewis 350.1.13.10 ity of [place] 4.2.7.2.686 Jaison as Professio [phone] [address] Office [facility] 2019-09-14 2019-09-14 Outpatient R [facility] [id number] -[id number] Univers 13:00:00 13:00:00 [id number] ity [facility] 2019-09-14 2019-09-14 Outpatient R DELMAR [facility] [id number] Univers 13:00:00 13:00:00 TYRESE ity [facility] 2019-08-28 2019-08-28 Outpatient R MURRAY [facility] [id number] -[id number] Univers 11:00:00 11:00:00 SENDIL [id number] ity of [facility] 2019-08-28 2019-08-28 Outpatient R MURRAY, [facility] [id number] Univers 11:00:00 11:00:00 SENDIL ity of [facility] 2019-08-23 2019-08-23 Urgent Provider, [facility] 1.2.840.114 [id number] Univers 15:07:25 16:34:23 Care Tyrese Baca 350.1.13.10 ity [facility] 4.2.7.2.686 Jaison [facility] [phone] Dc luis alberto le [address] 2019-08-23 2019-08-23 Outpatient R [facility] [id number] -[id number] Univers 15:40:00 15:40:00 [id number] ity of [facility] 2019-08-23 2019-08-23 Outpatient R [facility] [id number] Univers 15:40:00 15:40:00 ity of [facility] 2019-08-22 2019-08-22 Emergency Corazon, RUST 1.2.085.268 [id number] Univers 14:16:15 16:10:00 Kvng [facility] 350.1.13.10 it y of [place] 4.2.7.2.686 [facility] [phone] [address] ([facility]) 2019-08-22 2019-08-22 Nurse Nurse, [facility] 1.2 .840.114 [id number] Univers 13:26:07 13:41:07 Visit Unknown, Attending SPECIALTY 350.1.13. 10 ity of CARE 4.2.7.2.686 [facility] AT [phone] Dc luis alberto HERNANDEZIsac [address] [place] [address] 2019-08-22 2019-08-22 Outpatient R [facility] [id number] -[id number] Univers 13:30:00 13:30:00 [id number] ity of [facility] 2019-08-22 2019-08-22 Outpatient R UNKNOWN, [facility] [id number] Univers 13:30:00 13:30:00 ATTENDING ity of [facility] 2019-08-22 2019-08-22 Telephone KEARA Rivera 1.2.840.114 [id number] Univers 00:00:00 00:00:00 Simba CASI 350.1.13.10 it y of [facility] 4.2.7.2.686 Jaison as [phone] [facility] [address] 2019-08-19 2019-08-19 Emergency MADAN Rivera 1.2.840.114 [id number] Univers 21:26:07 21:27:00 Simba De La Fuente 350.1.13.10 i ty of [place].2.[place] [phone] [facility] [address] 2019-08-19 2019-08-19 Orders Doctor KEARA 1.2.840.114 [id number] Univers 00:00:00 00:00:00 Only Unassigned, CASI 350.1.13.10 ity of [place] [facility] 4.2.7.2.686 Jaison as [phone] [facility] [address] Results Test Description Test Time Test Comments Results Result Comments Source POCT URINALYSIS W SPECIFIC GRAVITY 2020-10-16 19:37:00 Test Item Value Reference Range Interpretation Comme nts POCT U SP GRAV (test code = 3255) . 1.005-1.025 POCT PH U (test code = 3254) . 5-8 POCT U LEUK EST (test code = 3263) . Negative - Negative POCT U NIT (test code = 3262) . Negative - Negative POCT U PROT (test code = 3259) trace Negative - Negative POCT U GLU (test code = 3256) negative Negative - Negative POCT U KETONE (test code = 3258) . Negative - Negative POCT U UROBILI (test code = 3260) . 0.2-1 POCT U BILI (test code = 3261) . Negative - Negative POCT U BLD (test code = 3257) . Negative - Negative POCT U COLOR (test code = 3266) . POCT U APPEAR (test code = 3267) [facility] [id number] 19:37:00 Test Item Value Reference Range Interpretation Comments POCT U SP GRAV (test code = . 1.005-1.025 3255) POCT PH U (test code = 3254) . 5-8 POCT U LEUK EST (test code = . Negative - Negative 3263) POCT U NIT (test code = 3262) . Negative - Negative POCT U PROT (test code = 3259) trace Negative - Negative POCT U GLU (test code = 3256) negative Negative - Negative POCT U KETONE (test code = 3258) . Negative - Negative POCT U UROBILI (test code = . 0.2-1 3260) POCT U BILI (test code = 3261) . Negative - Negative POCT U BLD (test code = 3257) . Negative - Negative POCT U COLOR (test code = 3266) . POCT U APPEAR (test code = 3267) . [facility] URINALYSIS W SPECIFIC [id number] 19:37:00 Test Item Value Reference Range Interpretation Comments POCT U SP GRAV (test code = 3255) . 1.005-1.025 POCT PH U (test code = 3254) . 5-8 POCT U LEUK EST (test code = 3263) . Negative - Negative POCT U NIT (test code = 3262) . Negative - Negative POCT U PROT (test code = 3259) trace Negative - Negative POCT U GLU (test code = 3256) neg Negative - Negative POCT U KETONE (test code = 3258) neg Negative - Negative POCT U UROBILI (test code = 3260) . 0.2-1 POCT U BILI (test code = 3261) . Negative - Negative POCT U BLD (test code = 3257) . Negative - Negative POCT U COLOR (test code = 3266) POCT U APPEAR (test code = 3267) Lab Interpretation (test code = Normal 21694-5) [facility] URINALYSIS W SPECIFIC [id number] 19:37:00 Test Item Value Reference Range Interpretation Comments POCT U SP GRAV (test code = 3255) . 1.005-1.025 POCT PH U (test code = 3254) . 5-8 POCT U LEUK EST (test code = 3263) . Negative - Negative POCT U NIT (test code = 3262) . Negative - Negative POCT U PROT (test code = 3259) trace Negative - Negative POCT U GLU (test code = 3256) neg Negative - Negative POCT U KETONE (test code = 3258) neg Negative - Negative POCT U UROBILI (test code = 3260) . 0.2-1 POCT U BILI (test code = 3261) . Negative - Negative POCT U BLD (test code = 3257) . Negative - Negative POCT U COLOR (test code = 3266) POCT U APPEAR (test code = 3267) Lab Interpretation (test code = Normal 12537-6) [facility] URINALYSIS W SPECIFIC [id number] 19:37:00 Test Item Value Reference Range Interpretation Comments POCT U SP GRAV (test code = 3255) . 1.005-1.025 POCT PH U (test code = 3254) . 5-8 POCT U LEUK EST (test code = 3263) . Negative - Negative POCT U NIT (test code = 3262) . Negative - Negative POCT U PROT (test code = 3259) trace Negative - Negative POCT U GLU (test code = 3256) neg Negative - Negative POCT U KETONE (test code = 3258) neg Negative - Negative POCT U UROBILI (test code = 3260) . 0.2-1 POCT U BILI (test code = 3261) . Negative - Negative POCT U BLD (test code = 3257) . Negative - Negative POCT U COLOR (test code = 3266) POCT U APPEAR (test code = 3267) Lab Interpretation (test code = Normal 66354-1) [facility] GRP A STREP (MOLECULAR)2020-08-28 19:43:00 Test Item Value Reference Range Interpretation Comments POCT GP A STREP (test Negative Negative - code = 31995-7) Negative HENRIK (test code = HENRIK) accurate development and interpretation of all internal controls Lab Interpretation Normal (test code = 78428-9) [facility] URINALYSIS W SPECIFIC [id number] 16:49:00 Test Item Value Reference Range Interpretation Comments POCT U SP GRAV (test code = 3255) . 1.005-1.025 POCT PH U (test code = 3254) . 5-8 POCT U LEUK EST (test code = 3263) . Negative - Negative POCT U NIT (test code = 3262) . Negative - Negative POCT U PROT (test code = 3259) trace Negative - Negative POCT U GLU (test code = 3256) neg Negative - Negative POCT U KETONE (test code = 3258) . Negative - Negative POCT U UROBILI (test code = 3260) . 0.2-1 POCT U BILI (test code = 3261) . Negative - Negative POCT U BLD (test code = 3257) . Negative - Negative POCT U COLOR (test code = 3266) POCT U APPEAR (test code = 3267) Lab Interpretation (test code = Normal 76071-5) [facility] URINALYSIS W SPECIFIC [id number] 16:02:00 Test Item Value Reference Range Interpretation Comments POCT U SP GRAV (test code = 3255) . 1.005-1.025 POCT PH U (test code = 3254) . 5-8 POCT U LEUK EST (test code = 3263) . Negative - Negative POCT U NIT (test code = 3262) . Negative - Negative POCT U PROT (test code = 3259) trace Negative - Negative POCT U GLU (test code = 3256) neg Negative - Negative POCT U KETONE (test code = 3258) . Negative - Negative POCT U UROBILI (test code = 3260) . 0.2-1 POCT U BILI (test code = 3261) . Negative - Negative POCT U BLD (test code = 3257) . Negative - Negative POCT U COLOR (test code = 3266) POCT U APPEAR (test code = 3267) Lab Interpretation (test code = Normal 49673-6) [facility] URINALYSIS W SPECIFIC [id number] 19:24:00 Test Item Value Reference Range Interpretation Comments POCT U SP GRAV (test code = 3255) . 1.005-1.025 POCT PH U (test code = 3254) . 5-8 POCT U LEUK EST (test code = 3263) . Negative - Negative POCT U NIT (test code = 3262) . Negative - Negative POCT U PROT (test code = 3259) trace Negative - Negative POCT U GLU (test code = 3256) neg Negative - Negative POCT U KETONE (test code = 3258) . Negative - Negative POCT U UROBILI (test code = 3260) . 0.2-1 POCT U BILI (test code = 3261) . Negative - Negative POCT U BLD (test code = 3257) . Negative - Negative POCT U COLOR (test code = 3266) POCT U APPEAR (test code = 3267) Lab Interpretation (test code = Normal 34193-7) [facility] [id number] 13:57:00 Test Item Value Reference Range Interpretation Comments POCT U SP GRAV (test code = 3255) . 1.005-1.025 POCT PH U (test code = 3254) . 5-8 POCT U LEUK EST (test code = 3263) . Negative - Negative POCT U NIT (test code = 3262) . Negative - Negative POCT U PROT (test code = 3259) neg Negative - Negative POCT U GLU (test code = 3256) neg Negative - Negative POCT U KETONE (test code = 3258) . Negative - Negative POCT U UROBILI (test code = 3260) . 0.2-1 POCT U BILI (test code = 3261) . Negative - Negative POCT U BLD (test code = 3257) . Negative - Negative POCT U COLOR (test code = 3266) POCT U APPEAR (test code = 3267) Lab Interpretation (test code = Normal 06277-2) [facility]ID [facility]2020-06-04 02:35:01 Test Item Value Reference Range Interpretation Comments SARS-CoV-2 Rapid ID NOW Not Detected Not Detected (test code = 26266-5) HENRIK (test code = HENRIK) ID NOW COVID-19 Assay is an isothermal nucleic acid amplification test intended for the qualitative detection of nucleic acid from SARS-CoV-2 viral RNA in nasopharyngeal (INTERNET SPECIALIST) specimens. It is used under Emergency Use Authorization (EUA) by FDA. The limit of detection (LOD) of the assay is 125 Genome Equivalents/mL. A positive result is indicative of the presence of SARS-CoV-2 RNA. ?Clinical correlation with patient history and other diagnostic information is necessary to determine patient infection status. A negative (Not Detected) result does not preclude SARS-CoV-2 infection. In patients with clinical symptoms and other tests that are consistent with SARS-CoV-2 infection, negative results should be treated as presumptive negative and a new specimen should be tested with alternative PCR molecular test. Invalid: Please collect a new specimen for repeat patient testing if clinically indicated. Lab Interpretation Normal (test code = 92430-7) [facility] STREP SCREEN FOR GROUP [id number] 02:30:35 Test Item Value Reference Range Interpretation Comments Streptococcus pyogenes (group A) Negative Negative antigen (test code = 35182-7) Lab Interpretation (test code = Normal 99882-6) [facility]IFIC [id number] 15:06:00 Test Item Value Reference Range Interpretation Comments POCT U SP GRAV (test code = 3255) . 1.005-1.025 POCT PH U (test code = 3254) . 5-8 POCT U LEUK EST (test code = . Negative - Negative 3263) POCT U NIT (test code = 3262) . Negative - Negative POCT U PROT (test code = 3259) trace Negative - Negative POCT U GLU (test code = 3256) ngative Negative - Negative POCT U KETONE (test code = 3258) . Negative - Negative POCT U UROBILI (test code = 3260) . 0.2-1 POCT U BILI (test code = 3261) . Negative - Negative POCT U BLD (test code = 3257) . Negative - Negative POCT U COLOR (test code = 3266) POCT U APPEAR (test code = 3267) [facility] 05:46:00 Test Item Value Reference Range Interpretation Comments APPEARANCE (test code = Clear Clear 3444435691) COLOR (test code = Straw Yellow A 7418404686) PH (test code = 4.8-8.0 0284760031) SP GRAVITY (test code = 1.003-1.030 9084557196) GLU U QUAL (test code = Normal Normal 8877087025) BLOOD (test code = Negative Negative 4604096001) KETONES (test code = 20 mg/dL Negative A 2277803445) PROTEIN (test code = Negative Negative 2887-8) UROBILIN (test code = Normal Normal 2231133893) BILIRUBIN (test code = Negative Negative 3341257381) NITRITE (test code = Negative Negative 3980970162) LEUK CHASE (test code = Negative Negative 0681309219) RBC/HPF (test code = See_Comment [Autom ated message] 1219236252) The system Sphere 3d generated this result transmitted ref erence range: 0 - 3 HP F. The reference range was not used to int erpret this result as normal/abnormal . WBC/HPF (test code = See_Comment [Autom ated message] 3034091036) The system Sphere 3d generated this result transmitted ref erence range: 0 - 5 HP F. The reference range was not used to int erpret this result as normal/abnormal . BACTERIA (test code = Negative Negative 3634377203) MUCOUS (test code = Slight Negative LPF A 2369411969) SQ EPITH (test code = See_Comment [Auto mated message] 0801176687) The system [employer]here 3[employer] generated this result transmitted ref erence range: <=2 HPF. The reference range was not used to int erpret this result as normal/abnormal . Lab Interpretation (test Abnormal code = 67925-9) [facility] [id number] 05:44:00 Test Item Value Reference Range Interpretation Comments POCT PREG (test code = 1605) Positive On board controls acceptable with Present C Line (test code = 3574) POCT PREG LOT # (test code = 3575) [id number] POCT PREG TEST DATE (test 2021-11-06 code = 3576) Lab Interpretation (test code = Normal 72615-3) [facility] [id number] 15:37:00 Test Item Value Reference Range Interpretation Comments POCT PREG (test code = 1605) Positive On board controls acceptable with C Yes Line (test code = 3574) POCT PREG LOT # (test code = 3575) POCT PREG TEST DATE (test code = 3576) [facility] [id number] 15:37:00 Test Item Value Reference Range Interpretation Comments POCT PREG (test code = 1605) Positive On board controls acceptable with C Yes Line (test code = 3574) POCT PREG LOT # (test code = 3575) POCT PREG TEST DATE (test code = 3576) [facility]IFIC [id number] 15:36:00 Test Item Value Reference Range Interpretation Comments POCT U SP GRAV (test code = . 1.005-1.025 3255) POCT PH U (test code = 3254) 5 mg/dl 5-8 POCT U LEUK EST (test code = 1+ Negative - Negative 3263) POCT U NIT (test code = 3262) negative Negative - Negative POCT U PROT (test code = 3259) trace Negative - Negative POCT U GLU (test code = 3256) negative Negative - Negative POCT U KETONE (test code = 3258) negative Negative - Negative POCT U UROBILI (test code = . 0.2-1 3260) POCT U BILI (test code = 3261) . Negative - Negative POCT U BLD (test code = 3257) negative Negative - Negative POCT U COLOR (test code = 3266) POCT U APPEAR (test code = 3267) [facility] [id number] 15:36:00 Test Item Value Reference Range Interpretation Comments POCT U SP GRAV (test code = . 1.005-1.025 3255) POCT PH U (test code = 3254) 5 mg/dl 5-8 POCT U LEUK EST (test code = 1+ Negative - Negative 3263) POCT U NIT (test code = 3262) negative Negative - Negative POCT U PROT (test code = 3259) trace Negative - Negative POCT U GLU (test code = 3256) negative Negative - Negative POCT U KETONE (test code = 3258) negative Negative - Negative POCT U UROBILI (test code = . 0.2-1 3260) POCT U BILI (test code = 3261) . Negative - Negative POCT U BLD (test code = 3257) negative Negative - Negative POCT U COLOR (test code = 3266) POCT U APPEAR (test code = 3267) [facility] [id number] 18:12:32XR SPINE THORACIC 4 VW HISTORY: Female 34 years 34yo F with chest pain and LUE discomfort ofunknown cause, work-up for possible radiculopathy was recommended by herCardiologist. COMPARISON: None FINDINGS: The vertebral bodies are normal in height and in normal alignment. No significant degenerative changes are present.[facility] User - 09/21/2019 1:13 PM CDTXR SPINE THORACIC 4 VWHISTORY: Female 34 years 34yo F with chest pain and LUE discomfort ofunknown cause, work-up for possibleradiculopathy was recommended by herCardiologist. COMPARISON: NoneFINDINGS:The vertebral bodies are normal in height and in normal alignment.No significant degenerative changes are present. [facility] 4 [id number] 16:15:551. ?No acute osseous findings are seen.2. ?Mild curvature abnormalities without degenerative changes.HISTORY:34yo F with chest pain and LUE discomfort of unknown cause, work-upfor possible radiculopathy was recommended by her Retail Coverage Merchandiser. TECHNIQUE: Frontal, oblique and lateral views of the cervical spine wereobtained. COMPARISON:None. FINDINGS: There is straightening of the cervical lordosis withpreserved sagittalalignment. The vertebral body heights are preserved. The craniocervicaljunction isunremarkable. No degenerative changes are seen. [facility], Radiant Results [facility] User - 09/21/2019 11:16 AM CDTHISTORY:34yo F with chest pain and LUE discomfort of unknown cause, work- upfor possible radiculopathy was recommended by her Retail Coverage Merchandiser. TECHNIQUE: Frontal, oblique and lateral views of the cervical spine wereobtained. COMPARISON:None.FINDINGS:There is straightening of the cervical lordosis with preserved sagittalalignment. The vertebral body heights are preserved. The craniocervicaljunction isunremarkable. No degenerative changes are seen.IMPRESSION1. No acute osseous findings are seen.2. Mild curvature abnormalities without degenerative changes.[facility] COMPREHENSIVE METABOLIC [id number] 10:12:00 Test Item Value Reference Range Interpretation Comments SODIUM (test code = NA) 136 mEq/L 134-147 N POTASSIUM (test code = 3.6 mEq/L 3.4-5.0 N K) CHLORIDE (test code = 107 mEq/L 100-108 N CL) CARBON DIOXIDE (test 26 mEq/L 21-33 N code = CO2) ANION GAP (test code = 7 0-20 N GAP) GLUCOSE (test code = 93 mg/dL 70-110 N GLU) BLOOD UREA NITROGEN 7 mg/dL 7-18 N (test code = BUN) GLOMERULAR FILTRATION 95.8 105-110 L Units of measure = RATE (test code = GFR) ml/mi n/1.73 m2 CREATININE (test code = 0.7 mg/dL 0.6-1.3 N CREAT) TOTAL PROTEIN (test 8.8 g/dL 6.4-8.2 H code = PROT) ALBUMIN (test code = 3.30 g/dL 3.4-5.0 L ALB) CALCIUM (test code = 9.4 mg/dL 8.0-10.5 N CA) BILIRUBIN TOTAL (test 0.6 MG/DL <1.5 N code = BILT) SGOT/AST (test code = 7 IUnit/L 15-37 L AST) SGPT/ALT (test code = 16 IUnit/L 15-65 N ALT) ALKALINE PHOSPHATASE 65 IUnit/L 20-125 N TOTAL (test code = ALKP) [id number] 10:12:00 Test Item Value Reference Range Interpretation [...] may jett y by method. COMPREHENSIVE METABOLIC [id number] 10:11:00 Test Item Value Reference Range Interpretation [...] TOTAL (test IUnit/L 20-125 code = ALKP) [id number] 10:11:00 Test Item Value Reference Range Interpretation [...] results may jett y by method. PROTHROMBIN [id number] 09:59:00 Test Item Value Reference Range Interpretation [...] Infarction (t o prevent recurre nt infarct). [id number] 09:59:00 Test Item Value Reference Range Interpretation [...] TESTS AND APPROPRIATECLIN ICAL EUALUATIONS. CBC W/AUTO [id number] 09:56:00 Test Item Value Reference Range Interpretation [...] code = MDIFF) - XR CHEST 1 [id number] 09:56:00 FAX: Dallas Cain MD [phone] [place]: St: PRE Name: RAGHAVENDRA QUINN [facility] : 1985 Age/S: 34/F [address] [place] [address] Unit#: [id number] Loc: [place] [address] Phys: Dallas Cain MD Acct: [id number] Dis Date: Status: PRE ER PHONE #: [phone] Exam Date: 08/22/2019 1003 FAX #: [phone] Reason: Chest Pain EXAMS: CPT CODE: [id number] XR CHEST 1 V 67211 PROCEDURE: CHEST SINGLE VIEW INDICATION: Chest Pain COMPARISON: There are no previous relevant studies available for correlation. FINDINGS: The lungs are clear. No pleural abnormality. The cardiomediastinalsilhouette is normal for projection. The bony thorax is intact. IMPRESSION: Normal radiograph. SL: [id number] at 0956 Reported and signed by: Samson Sousa M.D. CC: Dallas Cain MD Technologist: RT Maddi(R) Trnscrd Date/Time/By: 08/22/2019 (0956) : By: Krissy Orig Print D/T: S: 08/22/2019 (1003) PAGE 1 Signed Report
[2021-03-02] MEDS ORDERED: IBUPROFEN 400 MG TAB ONE (04:12)
[2021-03-02] MEDS ORDERED: ACETAMINOPHEN 325 MG TABLET ONE (04:12)
[2021-03-02 05:13] LABS: Hematocrit 39.7 % (36.0-45.0); Lymphocytes % 19.1 % (15.3-44.8); MPV 7.1 fL (7.6-11.3)
[2021-03-02 05:22] LABS: Barbiturates NEGATIVE (NEGATIVE); Benzodiazepines NEGATIVE (NEGATIVE); Cocaine NEGATIVE (NEGATIVE); METHAMPHETAM NEGATIVE (NEGATIVE); Methadone NEGATIVE (NEGATIVE); Opiates NEGATIVE (NEGATIVE); Phencyclidine NEGATIVE (NEGATIVE); THC Cannibis NEGATIVE (NEGATIVE)
[2021-03-02 05:23] LABS: BUN Blood Urea Nitrogen 21 mg/dL (7-18); Bicarbonate 22 mmol/L (21-32); Glucose Level 103 mg/dL (74-106); Potassium 3.8 mmol/L (3.5-5.1); Sodium Level 137 mmol/L (136-145)
[2021-03-02 05:42] LABS: Blood Morphology Comment NOT SEEN (NOT SEEN); Platelet Estimate ADEQ; White Blood Cell Scan OK (OK)
[2021-03-02 05:47] LABS: SARS-COV-2 RT PCR POSITIVE (NEGATIVE)
--- NOTE | 2021-03-02 06:02 | EDPHYS ---
Physician Documentation [facility] Name: Goyo Solorio Age: 36 yrs Sex: Female : 1985 Arrival Date: 03/02/2021 Time: 03:44 Bed 18 Private MD: ED Physician Jacky Woodard HPI: 03/02 04:09 This 36 yrs old Female presents to ER via Ambulatory with complaints of Cough, pkl Headache, Chest Pressure. 04:09 The patient or guardian reports cough, described as mild, with no sputum. Onset: The pkl symptoms/episode began/occurred 1 week(s) ago. Associated signs and symptoms: Pertinent positives: head ache and chest pain when coughing. 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 - Social history:: Smoking status: Patient reports the use of cigarette tobacco products, denies chronic smoking, but will smoke occasionally. ROS: 04:11 Eyes: Negative for injury, pain, redness, and discharge, ENT: Negative for injury, pkl pain, and discharge, Neck: Negative for injury, pain, and swelling. 04:11 Cardiovascular: Positive for chest pain, with cough. 04:11 Respiratory: Positive for cough, with no reported sputum, Negative for shortness of breath. 04:11 Abdomen/GI: Negative for abdominal pain, nausea, vomiting, and diarrhea. 04:11 Back: Negative for acute changes. 04:11 : Negative for urinary symptoms. 04:11 MS/extremity: Negative for acute changes. 04:11 Skin: Negative for rash. 04:11 Neuro: Negative for altered mental status, loss of consciousness. Exam: 04:11 Head/Face: Normocephalic, atraumatic. Eyes: Pupils equal round and reactive to light, pkl extra-ocular motions intact. Lids and lashes normal. Conjunctiva and sclera are non-icteric and not injected. Cornea within normal limits. Periorbital areas with no swelling, redness, or edema. ENT: Nares patent. No nasal discharge, no septal abnormalities noted. Tympanic membranes are normal and external auditory canals are clear. Oropharynx with no redness, swelling, or masses, exudates, or evidence of obstruction, uvula midline. Mucous membranes moist. Neck: Trachea midline, no thyromegaly or masses palpated, and no cervical lymphadenopathy. Supple, full range of motion without nuchal rigidity, or vertebral point tenderness. No Meningismus. Chest/axilla: Normal chest wall appearance and motion. Nontender with no deformity. No lesions are appreciated. Cardiovascular: Regular rate and rhythm with a normal S1 and S2. No gallops, murmurs, or rubs. Normal PMI, no JVD. No pulse deficits. Respiratory: Lungs have equal breath sounds bilaterally, clear to auscultation and percussion. No rales, rhonchi or wheezes noted. No increased work of breathing, no retractions or nasal flaring. Abdomen/GI: Soft, non-tender, with normal bowel sounds. No distension or tympany. No guarding or rebound. No evidence of tenderness throughout. Back: No spinal tenderness. No costovertebral tenderness. Full range of motion. Skin: Warm, dry with normal turgor. Normal color with no rashes, no lesions, and no evidence of cellulitis. MS/ Extremity: Pulses equal, no cyanosis. Neurovascular intact. Full, normal range of motion. Neuro: Awake and alert, GCS 15, oriented to person, place, time, and situation. Cranial nerves II-XII grossly intact. Motor strength 5/5 in all extremities. Sensory grossly intact. Cerebellar exam normal. Normal gait. Vital Signs: 03:48 Pulse 120; Resp 22; Temp 99.5(O); Pulse Ox 100% on R/A; Weight 79.83 kg; Height 5 ft. 1 tw5 in. (154.94 cm); Pain 7/10; 04:06 BP 111 / 74; Pulse 117; Resp 18 S; Pulse Ox 100% on R/A; lg3 05:20 BP 110 / 72; Pulse 105; Resp 17 S; Pulse Ox 99% on R/A; lg3 06:23 BP 108 / 67; Pulse 95; Resp 18 S; Pulse Ox 98% on R/A; lg3 03:48 Body Mass Index 33.25 (79.83 kg, 154.94 cm) tw5 MDM: 03:54 Patient medically screened. pkl 05:57 Data reviewed: vital signs, nurses notes, lab test result(s), EKG, radiologic studies, pkl plain films. ED course: Discussed lab, EKG and imaging studies with patient. Advised to quarantine for 5 days. To follow up with PCP in 2 to 3 days. Return if necessary. Patient understood instructions. 03/02 04:07 Order name: Troponin High Sensitivity pkl 03/02 04:07 Order name: CBC with Diff pkl 03/02 04:07 Order name: Chem 7 pkl 03/02 04:07 Order name: UDS; Complete Time: 05:26 pkl 03/02 04:07 Order name: COVID-19/FLU A+B (Document "Date of Onset" if Symptomatic): cough, chest pkl pain; Complete Time: 05:48 03/02 04:07 Order name: Troponin High Sensitivity; Complete Time: 05:26 EDMS 03/02 04:07 Order name: EKG; Complete Time: 04:07 pkl 03/02 04:07 Order name: XRAY CXR (1 view) pkl 03/02 04:07 Order name: CBC with Automated Diff; Complete Time: 05:48 EDMS 03/02 04:07 Order name: Basic Metabolic Panel; Complete Time: 05:26 EDMS 03/02 05:01 Order name: Urine --Ancillary (enter results) lp1 03/02 05:17 Order name: CBC Smear Scan; Complete Time: 05:48 EDMS 03/02 04:59 Order name: Urine Dipstick-Ancillary (obtain specimen); Complete Time: 05:01 lp1 03/02 04:59 Order name: Urine Test (obtain specimen); Complete Time: 05:01 lp1 03/02 04:59 Order name: EKG - Nurse/Tech; Complete Time: 05:15 lp1 Administered Medications: 04:53 Drug: Tylenol 650 mg Route: PO; lg3 04:53 Follow up: Response: No adverse reaction lg3 04:53 Drug: Motrin (ibuprofen) 400 mg Route: PO; lg3 04:53 Follow up: Response: No adverse reaction lg3 Disposition Summary: 03/02/21 06:02 Discharge Ordered Location: Home pkl Problem: new pkl Symptoms: are unchanged pkl Condition: Stable pkl Diagnosis - Positive Covid 19 pkl Followup: pkl - With: Private Physician - When: 2 - 3 days - Reason: Re-evaluation by your physician Forms: - Medication Reconciliation Form pkl - Thank You Letter pkl - Antibiotic Education pkl - Prescription Opioid Use pkl Signatures: Dispatcher [employer] Jacky Weri MD MD pkl Dee Jane RN RN lp1 Abby Roach RN RN lg3 Keeley Dey tw5
--- NOTE | 2021-03-02 06:02 | ER ---
Nurse's Notes [facility] Name: Goyo Solorio Age: 36 yrs Sex: Female : 1985 Arrival Date: 03/02/2021 Time: 03:44 Bed 18 Private MD: Diagnosis: Positive Covid 19 Presentation: 03/02 03:48 Chief complaint: Patient states: " I have been having a headache for about a week now. tw5 I don't have any pain until I cough then it makes my chest and head hurt really bad. I have had a constant headache, the light is bothering me and I just feel so fatigued.". Coronavirus screen: Vaccine status: Patient reports being unvaccinated. Ebola Screen: Patient negative for fever greater than or equal to 101.5 degrees Fahrenheit, and additional compatible Ebola Virus Disease symptoms Patient denies exposure to infectious person. Patient denies travel to an Ebola-affected area in the 21 days before illness onset. Initial Sepsis Screen: Does the patient meet any 2 criteria? RR > 20 per min. Does the patient have a suspected source of infection? No. Patient's initial sepsis screen is negative. Risk Assessment: Do you want to hurt yourself or someone else? Patient reports no desire to harm self or others. Onset of symptoms is unknown. 03:48 Method Of Arrival: Ambulatory tw5 03:48 Acuity: EUGENIO 3 tw5 Triage Assessment: 03:51 Headache History: Denies prior headaches. General: Appears uncomfortable, Behavior is tw5 calm, cooperative, appropriate for age. Pain: Pain currently is 0 out of 10 on a pain scale. at worst was 7 out of 10 on a pain scale. Pain began About a week ago Also complains of photophobia. Neuro: Level of Consciousness is awake, alert, obeys commands, Oriented to person, place, time, situation. 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 - Social history:: Smoking status: Patient reports the use of cigarette tobacco products, denies chronic smoking, but will smoke occasionally. Screenin:53 Abuse screen: Denies threats or abuse. Denies injuries from another. Nutritional tw5 screening: No deficits noted. Tuberculosis screening: No symptoms or risk factors identified. Fall Risk None identified. Assessment: 05:03 General: Appears in no apparent distress. uncomfortable, Behavior is calm, cooperative. lg3 Pain: Complains of pain in chest Pain currently is 6 out of 10 on a pain scale. Aggravated by coughing. Neuro: No deficits noted. Level of Consciousness is awake, alert, obeys commands, Oriented to person, place, time, situation, Entry Level Marketing Assistant are equal bilaterally Moves all extremities. Gait is steady, Speech is normal. Cardiovascular: No deficits noted. Capillary refill < 3 seconds JVD is absent Patient's skin is warm and dry. Respiratory: No deficits noted. Airway is patent Trachea midline Respiratory effort is even, unlabored, Respiratory pattern is regular, symmetrical. GI: No deficits noted. No signs and/or symptoms were reported involving the gastrointestinal system. Abdomen is round non-distended, Bowel sounds present X 4 quads. : No deficits noted. No signs and/or symptoms were reported regarding the genitourinary system. EENT: No deficits noted. No signs and/or symptoms were reported regarding the EENT system. Derm: No deficits noted. No signs and/or symptoms reported regarding the dermatologic system. Skin is intact, is healthy with good turgor, Skin is dry. Musculoskeletal: No deficits noted. No signs and/or symptoms reported regarding the musculoskeletal system. Circulation, motion, and sensation intact. Range of motion: intact in all extremities. Vital Signs: 03:48 Pulse 120; Resp 22; Temp 99.5(O); Pulse Ox 100% on R/A; Weight 79.83 kg; Height 5 ft. 1 tw5 in. (154.94 cm); Pain 7/10; 04:06 BP 111 / 74; Pulse 117; Resp 18 S; Pulse Ox 100% on R/A; lg3 05:20 BP 110 / 72; Pulse 105; Resp 17 S; Pulse Ox 99% on R/A; lg3 06:23 BP 108 / 67; Pulse 95; Resp 18 S; Pulse Ox 98% on R/A; lg3 03:48 Body Mass Index 33.25 (79.83 kg, 154.94 cm) tw5 ED Course: 03:44 Patient arrived in ED. ja2 03:51 Triage completed. tw5 03:51 Arm band placed on right wrist. tw5 03:54 Jacky Woodard MD is Attending Physician. pkl 03:58 Abby Roach, RN is Primary Nurse. lg3 04:20 XRAY CXR (1 view) In Process Unspecified. EDMS 04:53 Basic Metabolic Panel Sent. lg3 04:53 Troponin High Sensitivity Sent. lg3 04:53 CBC with Automated Diff Sent. lg3 04:53 Chem 7 Sent. lg3 04:53 CBC with Diff Sent. lg3 04:53 Troponin High Sensitivity Sent. lg3 04:54 COVID-19/FLU A+B (Document "Date of Onset" if Symptomatic): cough, chest pain Sent. lg3 05:03 Patient has correct armband on for positive identification. Placed in gown. Bed in low lg3 position. Call light in reach. Side rails up X 1. Pulse ox on. NIBP on. Warm blanket given. 05:03 Inserted saline lock: 20 gauge in left forearm, using aseptic technique. Blood lg3 collected. 05:09 UDS Sent. lg3 05:09 COVID-19/FLU A+B (Document "Date of Onset" if Symptomatic): cough, chest pain Sent. lg3 05:09 Urine --Ancillary (enter results) Sent. lg3 06:24 No provider procedures requiring assistance completed. IV discontinued, intact, lg3 bleeding controlled, No redness/swelling at site. Pressure dressing applied. Administered Medications: 04:53 Drug: Tylenol 650 mg Route: PO; lg3 04:53 Follow up: Response: No adverse reaction lg3 04:53 Drug: Motrin (ibuprofen) 400 mg Route: PO; lg3 04:53 Follow up: Response: No adverse reaction lg3 Outcome: 06:02 Discharge ordered by . pkl 06:24 Discharged to home ambulatory. lg3 06:24 Condition: stable 06:24 Discharge instructions given to patient, Instructed on discharge instructions, follow up and referral plans. 06:25 Patient left the ED. lg3 Signatures: Dispatcher MedGILUPI EDIN Jacky Woodard MD MD pkl Gibson, Lacie, RN RN lg3 Maria Isabel Sprague jaKeeley Forrester tw5
--- NOTE | 2021-03-02 08:03 | EKG ---
Test Date: 2021-03-02 Test Time: 05:10:00 Stamp Presser: MEASUREMENT RESULTS: Intervals: Rate: 102 NV: 158 QRSD: 86 QT: 330 QTc: 430 [place]: P: 55 NV: 158 QRS: 69 T: 38 INTERPRETIVE STATEMENTS: Sinus tachycardia Otherwise normal ECG Compared to ECG 08/29/2020 18:21:41 Sinus rhythm no longer present Electronically Signed On 03-02-21 08:02:39 ROLL EXAMINER by Javon Carranza
--- NOTE | 2021-03-02 08:26 | RAD REPORT ---
EXAM DESCRIPTION: RAD - Chest Single View - 03/02/2021 4:20 am CLINICAL HISTORY: CHEST PAIN COMPARISON: Chest Single View dated 02/08/2020; Chest Single View dated 02/05/2020; Chest Single View dated 12/26/2019; Chest Single View dated 11/25/2019 FINDINGS: Lines: None. Lungs: No evidence of edema or pneumonia. Pleural: No significant pleural effusions or pneumothorax. Cardiac: The heart size is within normal limits. Bones: No acute fractures. Other: IMPRESSION: No acute cardiopulmonary disease.
[2021-03-02 18:46] VITALS: TEMP 99.5
[2021-03-02 18:51] VITALS: BP 108/67; O2SAT 98
== END 2021-03-02 06:25 | disposition home or self-care (01) ==
LOC: ER 03:42
DX: U07.1 COVID-19 (principal); F17.210 Nicotine dependence, cigarettes, uncomplicated
CPT/HCPCS: 93005; 85025; 80048; 36415; 81025; 84484; 0240U; 80307; 71045; 99284

== ENCOUNTER 2021-03-05 05:04 | Emergency (ER) | payer OTHER ==
--- OUTSIDE RECORDS SUMMARY | 2021-03-05 05:12 | XMS REPORT | Continuity of Care Document ---
:1985 Author Organization [facility] t Address [address] [place] [address] Care Team Providers Name Role Phone Sandra LEES, Mariah Primary Care Physician INDUCTION Attending Clinician Unavailable Sarah LEES Attending Clinician Jv ULCIANO R Attending Clinician Jan SANCHEZ Attending Clinician [...] Pob1, Care Clinic Attending Clinician Unavailable Anene POLICE CLERK Attending Clinician ANENE Attending Clinician Unavailable Oscar GAO Attending Clinician Unavailable Provider, Urgent Care Attending Clinician Unavailable Corazon POLICE CLERK, R Attending Clinician Nurse, Urgent Care Attending Clinician Unavailable Unknown Attending Clinician Unavailable UNKNOWN Attending Clinician Unavailable Miguel POLICE CLERK Attending Clinician Payers Payer Name Policy Type Policy Number Effective Date Expiration Date [facility] [id number] 2019 CHOICE [place]ICA[place] 00:00:00 [place] [facility] [id number] 2016 HEALTH 00:00:00 MEDICAID PENDING PENDING 2019 00:00:00 Advance Directives Directive Decision Effective Termination Comments Source Date Date Healthcare Agents on N/A Univ ersity FileNameRelationshipHealthcare [facility] Agent Medical RelationshipCommunicationLinda [place] [facility] [phone] (Mobile) Problems Condition Condition Condition Status Onset Resolution Last Treating Co mments Source Name Details Category Date Date Treatment Clinician Date Normal Normal Disease Active 2020-02 Univers labor labor 0-19 ity of 00:: [address] Disease Active 2020-02 Univers (normal (normal 0-19 [place] Med[place] gerri delivery) delivery) Bran ch History of History of Disease Active U nivers anxiety anxiety 2-23 ity of 00:: [address] BMI BMI Disease Active Univers 32.0-32.9, 32.0-32.9, 2-23 it y of adult adult 00:00: [address] Former Former Disease Active Univers smoker smoker 2-23 ity of 00:00: [place] 00 Medical Branch History of History of Disease Active U nivers 2-23 ity of delivery delivery 00:00: [place] [facility] History of History of Disease Active U nivers 2-23 [place] of premature premature [place] rupture of rupture of 00 [place] dical membranes membranes Bran ch (PROM) in (PROM) in previous previous , , currently currently in first in first trimester trimester Vaginal Vaginal Disease Active Univers bleeding bleeding 2-23 ity of in in 00:00: [place] , , 00 Me dical first first Branch trimester trimester Pain Pain Disease Active Univers pelvic pelvic 2-23 ity of 00:00: [place] [facility] Chest Chest Disease Active Univers pain, pain, 8-12 ity of atypical atypical 00:00: [place] [facility] 39 weeks 39 weeks Disease Active Unive rs gestation gestation 3-12 ity of of of 00:00: [place] 00 [facility] Branch Supervisio Supervisio Disease Active U nivers n of high n of high 1-03 ity of risk risk 00:00: [place] 00 [facility] in first in first Branch trimester trimester Multiparit Multiparit Disease Active U nivers y y 8-22 ity of 00:00: [place] [facility] Branch Obesity in Obesity in Disease Active 2017-0 U nivers 8-22 ity of 00:00: [place] [facility] Branch Papanicola Papanicola Disease Active 0 U [...] 00:00: [place] 00 [facility] NO KNOWN Drug Active Univers ALLERGIE Class ity of S [facility] Social History Social Habit Start Date Stop Date Quantity Comments Source ASSERTION 2020-03-08 University 00:00:00 [facility] Exposure to Not sure University of SARS-CoV-2 (event) [facility] Alcohol intake 2020-11-25 2020-11-25 Ex-drinker University 00:00:00 00:00:00 (finding) [facility] Education 2020-11-25 2020-11-25 13 University 00:00:00 00:00:00 [facility] Tobacco Comment 2020-04-01 2020-04-01 smokes 4 x Universit y of 00:00:00 00:00:00 socially - [facility] stopped smoking Branch 2 weeks ago Alcohol Comment 2020-04-01 2020-04-01 socially Universit y of 00:00:00 00:00:00 [facility] Branch History SDOH 2020-04-01 2020-04-01 99 University o f Alcohol Frequency 00:00:00 00:00:00 [facility] Branch History SDOH 2020-04-01 2020-04-01 99 University o f Alcohol Std Drinks 00:00:00 00:00:00 [facility] Branch History SDOH 2020-04-01 2020-04-01 99 University o f Alcohol Binge 00:00:00 00:00:00 [facility] Branch Cigarettes smoked 2016-09-28 2016-09-28 Univers ity of current (pack per 00:00:00 00:00:00 [facility] ) - Reported Branch Cigarette 2016-09-28 2016-09-28 University of pack-years 00:00:00 00:00:00 [facility] Tobacco use and 2016-09-28 2016-09-28 Never used Universit y of exposure 00:00:00 00:00:00 [facility] History of tobacco 2016-08-28 Cigarette Smoker University of use 00:00:00 [facility] Sex [birth year] Universit y of 00:00:00 00:00:00 [facility] Smoking Status Start Date Stop Date Source Former smoker 2016-09-28 00:00:00 2016-09-28 00:00:00 Universi ty of [facility] Medications Ordered Filled Start Stop Current Ordering [...] 11:47 INTRA [place] W/EPINEPHRI 00 :04 PROCEDURE, Nc dical NE) 1.5 Starting Branch %-1:200,000 on Tue injection 11/25/20 at 2049, Until 11/26/20 at 0647, Routine, Intra-op hydrOXYzine 2020-0 Yes [id number] 25mg Take 1 Univers 25 mg 7-22 tablet by ity of tablet 00:00: mouth [place] 00 every 6 Medical (six) Branch hours as needed for Itching or Anxiety. hydrOXYzine 0 Yes [id number] 25mg Take 1 Univers 25 mg 7-22 tablet by ity of tablet 00:00: mouth [place] 00 every 6 Medical (six) Branch hours as needed for Itching or Anxiety. hydrOXYzine 0 Yes [id number] 25mg Take 1 Univers 25 mg 7-22 tablet by ity of tablet 00:00: mouth [place] 00 every 6 Medical (six) Branch hours as needed for Itching or Anxiety. hydrOXYzine 0 Yes [id number] 25mg Take 1 Univers 25 mg 7-22 tablet by ity of tablet 00:00: mouth [place] 00 every 6 Medical (six) Branch hours as needed for Itching or Anxiety. hydrOXYzine 0 Yes [id number] 25mg Take 1 Univers 25 mg 7-22 tablet by ity of tablet 00:00: mouth [place] 00 every 6 Medical (six) Branch hours as needed for Itching or Anxiety. hydrOXYzine 0 Yes [id number] 25mg Take 1 Univers 25 mg 7-22 tablet by ity of tablet 00:00: mouth [place] 00 every 6 Medical (six) Branch hours as needed for Itching or Anxiety. hydrOXYzine 2021-0 Yes [id number] 25mg Take 1 Univers 25 mg 7-22 tablet by ity of tablet 00:00: mouth [place] 00 every 6 Medical (six) Branch hours as needed for Itching or Anxiety. hydrOXYzine 2020- No [id number] 25mg Take 1 Univers 25 mg 7-22 09-09 tablet by ity of tablet 00:00: 00:00 mouth [place] 00 :00 every 6 Medical (six) Branch hours as needed for Itching or Anxiety. hydrOXYzine 2020- No [id number] 25mg Take 1 Univers 25 mg 7-22 [...] mg -250 mg combo pack fluticasone Yes [id number] 1{spray Use 1 Univers propionate 4-27 } [place] in ity o f 50 00:00: each [place] mcg/actuati 00 nostril 2 Med ical on nasal (two) Branch spray times daily. fluticasone Yes [id number] 1{spray Use 1 Univers propionate 4-27 } [place] in ity o f 50 00:00: each [place] mcg/actuati 00 nostril 2 Med ical on nasal (two) Branch spray times daily. fluticasone Yes [id number] 1{spray Use 1 Univers propionate 4-27 } [place] in ity o f 50 00:00: each [place] mcg/actuati 00 nostril 2 Med ical on nasal (two) Branch spray times daily. fluticasone Yes [id number] 1{spray Use 1 Univers propionate 4-27 } [place] in ity o f 50 00:00: each [place] mcg/actuati 00 nostril 2 Med ical on nasal (two) Branch spray times daily. fluticasone Yes [id number] 1{spray Use 1 Univers propionate 4-27 } [place] in ity o f 50 00:00: each [place] mcg/actuati 00 nostril 2 Med ical on nasal (two) Branch spray times daily. fluticasone Yes [id number] 1{spray Use 1 Univers propionate 4-27 } [place] in ity o f 50 00:00: each [place] mcg/actuati 00 nostril 2 Med ical on nasal (two) Branch spray times daily. fluticasone Yes [id number] 1{spray Use 1 Univers propionate 4-27 } [place] in ity o f 50 00:00: each [place] mcg/actuati 00 nostril 2 Med ical on nasal (two) Branch spray times daily. fluticasone Yes [id number] 1{spray Use 1 Univers propionate 4-27 } [place] in ity o f 50 00:00: each [place] mcg/actuati 00 nostril 2 Med ical on nasal (two) Branch spray times daily. fluticasone Yes [id number] 1{spray Use 1 Univers propionate 4-27 } [place] in ity o f 50 00:00: each [place] mcg/actuati 00 nostril 2 Med ical on nasal (two) Branch spray times daily. fluticasone Yes [id number] 1{spray Use 1 Univers propionate 4-27 } [place] in ity o f 50 00:00: each [place] mcg/actuati 00 nostril 2 Med ical on nasal (two) Branch spray times daily. fluticasone Yes [id number] 1{spray Use 1 Univers propionate 4-27 } [place] in ity o f 50 00:00: each [place] mcg/actuati 00 nostril 2 Med ical on nasal (two) Branch spray times daily. fluticasone Yes [id number] 1{spray Use 1 Univers propionate 4-27 } [place] in ity o f 50 00:00: each [place] mcg/actuati 00 nostril 2 Med ical on nasal (two) Branch spray times daily. fluticasone 2020- No [id number] 1{spray Use 1 Univers propionate 4-27 07-21 } [place] in ity of 50 00:00: 00:00 each [...] ity of (TYLENOL) 06:30: 05:51 NOW, 1 [place] tablet 975 00 :00 dose, Nel Medi [...] by ity of capsule 15:47: mouth [address] [place] [address] (two) Medical times Branch daily. cephALEXin 2021-0 Yes 500mg Take 500 Un rand 500 mg 2-23 mg by ity of capsule 15:47: mouth 2 [place] [address] (two) Medical times Branch daily. cephALEXin 2021-0 Yes 500mg Take 500 [place] 500 mg 2-23 mg by ity of capsule 15:47: mouth [address] [place] [address] (two) Medical times Branch daily. cephALEXin 2021-0 Yes 500mg Take 500 [place] 500 mg 2-23 mg by ity of capsule 15:47: mouth [address] [place] [address] (two) Medical times Branch daily. cephALEXin 2021-0 Yes 500mg Take 500 Un [place] 500 mg 2-23 mg by ity of capsule 15:47: mouth [address] [place] [address] (two) Medical times Branch daily. cephALEXin 2021-0 Yes 500mg Take 500 [place] 500 mg 2-23 mg by ity of capsule 15:47: mouth [address] [place] [address] (two) Medical times Branch daily. cephALEXin 2021-0 Yes 500mg Take 500 [place] 500 mg 2-23 mg by ity of capsule 15:47: mouth 2 [place] [address] (two) Medical times Branch daily. cephALEXin 2021-0 Yes 500mg Take 500 [place] 500 mg 2-23 mg by ity of capsule 15:47: mouth 2 [place] [address] (two) Medical times Branch daily. cephALEXin 2021-0 Yes 500mg Take 500 [place] 500 mg 2-23 mg by ity of capsule 15:47: mouth 2 [place] [address] (two) Medical times Branch daily. cephALEXin 2021-0 Yes 500mg Take 500 Un rand 500 mg 2-23 mg by ity of capsule 15:47: mouth 2 [place] 56 (two) Medical times Branch daily. Yes [id number] 1{packe Take 1 Univers vit 2-23 t} Packet by ity of 33-iron-fol 00:00: mouth [place] ic-dha 00 daily. Medical (SELECT-OB Branch + DHA) 29 mg iron-1 mg -250 mg combo pack Yes [id number] 1{packe Take 1 Univers vit 2-23 t} Packet by ity of 33-iron-fol 00:00: mouth [place] ic-dha 00 daily. Medical (SELECT-OB Branch + DHA) 29 mg iron-1 mg -250 mg combo pack Yes [id number] 1{packe Take 1 Univers vit 2-23 t} Packet by ity of 33-iron-fol 00:00: mouth [place] ic-dha 00 daily. Medical (SELECT-OB Branch + DHA) 29 mg iron-1 mg -250 mg combo pack Yes [id number] 1{packe Take 1 Univers vit 2-23 t} Packet by ity of 33-iron-fol 00:00: mouth [place] ic-dha 00 daily. Medical (SELECT-OB Branch + DHA) 29 mg iron-1 mg -250 mg combo pack Yes [id number] 1{packe Take 1 Univers vit 2-23 t} Packet by ity of 33-iron-fol 00:00: mouth [place] ic-dha 00 daily. Medical (SELECT-OB Branch + DHA) 29 mg iron-1 mg -250 mg combo pack Yes [id number] 1{packe Take 1 Univers vit 2-23 t} Packet by ity of 33-iron-fol 00:00: mouth [place] ic-dha 00 daily. Medical (SELECT-OB Branch + DHA) 29 mg iron-1 mg -250 mg combo pack Yes [id number] 1{packe Take 1 Univers vit 2-23 t} Packet by ity of 33-iron-fol 00:00: mouth [place] ic-dha 00 daily. Medical (SELECT-OB Branch + DHA) 29 mg iron-1 mg -250 mg combo pack Yes [id number] 1{packe Take 1 Univers vit 2-23 t} Packet by ity of 33-iron-fol 00:00: mouth [place] ic-dha 00 daily. Medical (SELECT-OB Branch + DHA) 29 mg iron-1 mg -250 mg combo pack Yes [id number] 1{packe Take 1 Univers vit 2-23 t} Packet by ity of 33-iron-fol 00:00: mouth [place] ic-dha 00 daily. Medical (SELECT-OB Branch + DHA) 29 mg iron-1 mg -250 mg combo pack Yes [id number] 1{packe Take 1 Univers vit 2-23 t} Packet by ity of 33-iron-fol 00:00: mouth [place] ic-dha 00 daily. Medical (SELECT-OB Branch + DHA) 29 mg iron-1 mg -250 mg combo pack Yes [id number] 1{packe Take 1 Univers vit 2-23 t} Packet by ity of 33-iron-fol 00:00: mouth [place] ic-dha 00 daily. Medical (SELECT-OB Branch + DHA) 29 mg iron-1 mg -250 mg combo pack Yes [id number] 1{packe Take 1 Univers vit 2-23 t} Packet by ity of 33-iron-fol 00:00: mouth [place] ic-dha 00 daily. Medical (SELECT-OB Branch + DHA) 29 mg iron-1 mg -250 mg combo pack Yes [id number] 1{packe Take 1 Univers vit 2-23 t} Packet by ity of 33-iron-fol 00:00: mouth [place] ic-dha 00 daily. Medical (SELECT-OB Branch + DHA) 29 mg iron-1 mg -250 mg combo pack Yes [id number] 1{packe Take 1 Univers vit 2-23 t} Packet by ity of 33-iron-fol 00:00: mouth [place] ic-dha 00 daily. Medical (SELECT-OB Branch + DHA) 29 mg iron-1 mg -250 mg combo pack Yes [id number] 1{packe Take 1 Univers vit 2-23 t} Packet by ity of 33-iron-fol 00:00: mouth [place] ic-dha 00 daily. Medical (SELECT-OB Branch + DHA) 29 mg iron-1 mg -250 mg combo pack Yes [id number] 1{packe Take 1 Univers vit 2-23 t} Packet by ity of 33-iron-fol 00:00: mouth [place] ic-dha 00 daily. Medical (SELECT-OB Branch + DHA) 29 mg iron-1 mg -250 mg combo pack Yes [id number] 1{packe Take 1 Univers vit 2-23 t} Packet by ity of 33-iron-fol 00:00: mouth [place] ic-dha 00 daily. Medical (SELECT-OB Branch + DHA) 29 mg iron-1 mg -250 mg combo pack Yes [id number] 1{packe Take 1 Univers vit 2-23 t} Packet by ity of 33-iron-fol 00:00: mouth [place] ic-dha 00 daily. Medical (SELECT-OB Branch + DHA) 29 mg iron-1 mg -250 mg combo pack Yes [id number] 1{packe Take 1 Univers vit 2-23 t} Packet by ity of 33-iron-fol 00:00: mouth [place] ic-dha 00 daily. Medical (SELECT-OB Branch + DHA) 29 mg iron-1 mg -250 mg combo pack Yes [id number] 1{packe Take 1 Univers vit 2-23 t} Packet by ity of 33-iron-fol 00:00: mouth [place] ic-dha 00 daily. Medical (SELECT-OB Branch + DHA) 29 mg iron-1 mg -250 mg combo pack Yes [id number] 1{packe Take 1 Univers vit 2-23 t} Packet by ity of 33-iron-fol 00:00: mouth [place] ic-dha 00 daily. Medical (SELECT-OB Branch + DHA) 29 mg iron-1 mg -250 mg combo pack Yes [id number] 1{packe Take 1 Univers vit 2-23 t} Packet by ity of 33-iron-fol 00:00: mouth [place] ic-dha 00 daily. Medical (SELECT-OB Branch + DHA) 29 mg iron-1 mg -250 mg combo pack Yes [id number] 1{packe Take 1 Univers vit 2-23 t} Packet by ity of 33-iron-fol 00:00: mouth [place] ic-dha 00 daily. Medical (SELECT-OB Branch + DHA) 29 mg iron-1 mg -250 mg combo pack 2020- No [id number] 1{packe Take 1 Univers vit 2-23 07-21 t} Packet by ity of 33-iron-fol 00:00: 00:00 [place] ic-dha 00 :00 daily. Medical (SELECT-OB Branch + DHA) 29 mg iron-1 mg -250 mg combo pack cyclobenzap Yes [id number] 5mg Take 1 Univers rine 5 mg 8-14 4 tablet by ity o f tablet 00:00: mouth (two) Medical times Branch daily as needed for Muscle Spasms. Can cause drowsiness . cyclobenzap 2019- Yes [id number] 5mg Take 1 Univers rine 5 mg 8-14 4 tablet by ity o f tablet 00:00: mouth (two) Medical times Branch daily as needed for Muscle Spasms. Can cause drowsiness . cyclobenzap Yes [id number] 5mg Take 1 Univers rine 5 mg 8-14 4 tablet by ity o f tablet 00:00: mouth (two) Medical times Branch daily as needed for Muscle Spasms. Can cause drowsiness . cyclobenzap Yes [id number] 5mg Take 1 Univers rine 5 mg 8-14 4 tablet by ity o f tablet 00:00: mouth (two) Medical times Branch daily as needed for Muscle Spasms. Can cause drowsiness . cyclobenzap 2019-0 Yes [id number] 5mg Take 1 Univers rine 5 mg 8-14 4 tablet by ity o f tablet 00:00: mouth (two) Medical times Branch daily as needed for Muscle Spasms. Can cause drowsiness . cyclobenzap 2019-0 Yes [id number] 5mg Take 1 Univers rine 5 mg 8-14 4 tablet by ity o f tablet 00:00: mouth 2 (two) Medical times Branch daily as needed for Muscle Spasms. Can cause drowsiness . cyclobenzap 0 2020- No [id number] 5mg Take 1 Univers rine 5 mg 8-14 02-23 4 tablet by ity of tablet 00:00: 00:00 mouth 2 [place] 00 :00 (two) Medical times Branch daily as needed for Muscle Spasms. Can cause drowsiness . cyclobenzap 2020-0 202- No [id number] 5mg Take 1 Univers rine 5 mg 8-14 04-01 4 tablet by ity of tablet 00:00: 00:00 mouth 2 [place] 00 :00 (two) Medical times Branch daily as needed for Muscle Spasms. Can cause drowsiness . gabapentin 2020-0 Yes [id number] 100mg Take 1 Univers 100 mg 8-12 capsule by ity of capsule 00:00: mouth (three) Medical times Branch daily as needed (nerve pain). gabapentin 2020-0 Yes [id number] 100mg Take 1 Univers 100 mg 8-12 capsule by ity of capsule 00:00: mouth (three) Medical times Branch daily as needed (nerve pain). gabapentin 2020-0 Yes [id number] 100mg Take 1 Univers 100 mg 8-12 capsule by ity of capsule 00:00: mouth (three) Medical times Branch daily as needed (nerve pain). gabapentin 2020-0 Yes [id number] 100mg Take 1 Univers 100 mg 8-12 capsule by ity of capsule 00:00: mouth (three) Medical times Branch daily as needed (nerve pain). gabapentin 2020-0 Yes [id number] 100mg Take 1 Univers 100 mg 8-12 capsule by ity of capsule 00:00: mouth (three) Medical times Branch daily as needed (nerve pain). gabapentin 2020-0 Yes [id number] 100mg Take 1 Univers 100 mg 8-12 capsule by ity of capsule 00:00: mouth (three) Medical times Branch daily as needed (nerve pain). gabapentin 2020-0 Yes [id number] 100mg Take 1 Univers 100 mg 8-12 capsule by ity of capsule 00:00: mouth (three) Medical times Branch daily as needed (nerve pain). gabapentin 2020-0 Yes [id number] 100mg Take 1 Univers 100 mg 8-12 capsule by ity of capsule 00:00: mouth (three) Medical times Branch daily as needed (nerve pain). gabapentin 2020-0 Yes [id number] 100mg Take 1 Univers 100 mg 8-12 capsule by ity of capsule 00:00: mouth (three) Medical times Branch daily as needed (nerve pain). gabapentin 2020-0 Yes [id number] 100mg Take 1 Univers 100 mg 8-12 capsule by ity of capsule 00:00: mouth 3 00 (three) Medical times Branch daily as needed (nerve pain). gabapentin 2020-0 Yes [id number] 100mg Take 1 Univers 100 mg 8-12 capsule by ity of capsule 00:00: mouth 3 00 (three) Medical times Branch daily as needed (nerve pain). gabapentin 2019-0 Yes [id number] 100mg Take 1 Univers 100 mg 8-12 capsule by ity of capsule 00:00: mouth 3 00 (three) Medical times Branch daily as needed (nerve pain). gabapentin 2019-0 Yes [id number] 100mg Take 1 Univers 100 mg 8-12 capsule by ity of capsule 00:00: mouth 3 00 (three) Medical times Branch daily as needed (nerve pain). gabapentin 2020- No [id number] 100mg Take 1 Univers 100 mg 8-12 02-23 capsule by ity of capsule 00:00: 00:00 mouth 3 [place] 00 :00 (three) Medical times Branch daily as needed (nerve pain). gabapentin 2020- No [id number] 100mg Take 1 Univers 100 mg 8-12 [...] 7- 08-12 ity of tablet 00:00: 00:00 [place] 00 :00 Medical Branch SERTraline 2019- No [id number] 50mg Take 1 Univers (ZOLOFT) 50 7-16 08-16 tablet by it y of mg tablet 00:00: 04:59 mouth [place] 00 :00 daily for Medical 30 days. Branch SERTraline 2019-0 2020- No [id number] 50mg Take 1 Univers (ZOLOFT) 50 7-16 08-16 tablet by it y of mg tablet 00:00: 04:59 mouth [place] 00 :00 daily for Medical 30 days. Branch SERTraline 2019-0 2020- No [id number] 50mg Take 1 Univers (ZOLOFT) 50 7-16 08-16 tablet by it y of mg tablet 00:00: 04:59 mouth [place] 00 :00 daily for Medical 30 days. Branch SERTraline 2019- 2020- No [id number] 50mg Take 1 Univers (ZOLOFT) 50 7-16 08-12 tablet by it y of mg tablet 00:00: 00:00 mouth [place] 00 :00 daily for Medical 30 days. Branch SERTraline 2019- 2020- No [id number] 50mg Take 1 Univers (ZOLOFT) 50 7-16 [...] DAY Branch NEEDED hydrOXYzine 2019-0 2020- No [id number] 10mg Take 1 Univers 10 mg 7-15 07-26 tablet by ity of tablet 00:00: 04:59 mouth [place] 00 :00 every 6 Medical (six) Branch hours for 10 days. hydrOXYzine 2019-0 2020- No [id number] 10mg Take 1 Univers 10 mg 7-15 07-26 tablet by ity of tablet 00:00: 04:59 mouth [place] 00 :00 every 6 Medical (six) Branch hours for 10 days. hydrOXYzine 2019-0 2020- No [id number] 10mg Take 1 Univers 10 mg 7-15 -26 tablet by ity of tablet 00:00: 04:59 mouth [place] 00 :00 every 6 Medical (six) Branch hours for 10 days. albuterol 2020-0 Yes [id number] 2.5mg Inhale 3 Univers 2.5 mg /3 7-12 mL every 4 ity of mL (0.083 00:00: (four) [place] %) 00 hours. May Medical nebulizer also Branch solution nebulize one extra every 6 hours. albuterol 2020-0 Yes [id number] 2{puff} Inhale 2 Univers 90 7-12 Puffs ity of mcg/actuati 00:00: every 4 [place] on inhaler 00 (four) Medical hours as Branch needed for Wheezing or Shortness of Breath. albuterol 2020-0 Yes [id number] 2.5mg Inhale 3 Univers 2.5 mg /3 7-12 mL every 4 ity of mL (0.083 00:00: (four) [place] %) 00 hours. May Medical nebulizer also Branch solution nebulize one extra every 6 hours. albuterol 2020-0 Yes [id number] 2{puff} Inhale 2 Univers 90 7-12 Puffs ity of mcg/actuati 00:00: every 4 [place] on inhaler 00 (four) Medical hours as Branch needed for Wheezing or Shortness of Breath. albuterol 2020-0 Yes [id number] 2.5mg Inhale 3 Univers 2.5 mg /3 7-12 mL every 4 ity of mL (0.083 00:00: (four) [place] %) 00 hours. May Medical nebulizer also Branch solution nebulize one extra every 6 hours. albuterol 2020-0 Yes [id number] 2{puff} Inhale 2 Univers 90 7-12 Puffs ity of mcg/actuati 00:00: every 4 [place] on inhaler 00 (four) Medical hours as Branch needed for Wheezing or Shortness of Breath. albuterol 2020-0 Yes [id number] 2.5mg Inhale 3 Univers 2.5 mg /3 7-12 mL every 4 ity of mL (0.083 00:00: (four) [place] %) 00 hours. May Medical nebulizer also Branch solution nebulize one extra every 6 hours. albuterol 2020-0 Yes [id number] 2{puff} Inhale 2 Univers 90 7-12 Puffs ity of mcg/actuati 00:00: every 4 [place] on inhaler 00 (four) Medical hours as Branch needed for Wheezing or Shortness of Breath. albuterol 2020-0 Yes [id number] 2.5mg Inhale 3 Univers 2.5 mg /3 7-12 mL every 4 ity of mL (0.083 00:00: (four) [place] %) 00 hours. May Medical nebulizer also Branch solution nebulize one extra every 6 hours. albuterol 2020-0 Yes [id number] 2{puff} Inhale 2 Univers 90 7-12 Puffs ity of mcg/actuati 00:00: every 4 [place] on inhaler 00 (four) Medical hours as Branch needed for Wheezing or Shortness of Breath. albuterol 2020-0 Yes [id number] 2.5mg Inhale 3 Univers 2.5 mg /3 7-12 mL every 4 ity of mL (0.083 00:00: (four) [place] %) 00 hours. May Medical nebulizer also Branch solution nebulize one extra every 6 hours. albuterol 2020-0 Yes [id number] 2{puff} Inhale 2 Univers 90 7-12 Puffs ity of mcg/actuati 00:00: every 4 [place] on inhaler 00 (four) Medical hours as Branch needed for Wheezing or Shortness of Breath. albuterol 2020-0 Yes [id number] 2.5mg Inhale 3 Univers 2.5 mg /3 7-12 mL every 4 ity of mL (0.083 00:00: (four) [place] %) 00 hours. May Medical nebulizer also Branch solution nebulize one extra every 6 hours. albuterol 2020-0 Yes [id number] 2{puff} Inhale 2 Univers 90 7-12 Puffs ity of mcg/actuati 00:00: every 4 [place] on inhaler 00 (four) Medical hours as Branch needed for Wheezing or Shortness of Breath. albuterol 2019-0 2020- No [id number] 2.5mg Inhale 3 Univers 2.5 mg /3 7-12 08-12 mL every 4 ity of mL (0.083 00:00: 00:00 (four) [place] %) 00 :00 hours. May Medical nebulizer also Branch solution nebulize one extra every 6 hours. albuterol 2019- No [id number] 2{puff} Inhale 2 Univers 90 7-12 08-12 Puffs ity of mcg/actuati 00:00: 00:00 every 4 [place] inhaler 00 :00 (four) Medical hours as Branch needed for Wheezing or Shortness of Breath. albuterol 2019- No [id number] 2.5mg Inhale 3 Univers 2.5 mg /3 7-12 08-12 mL every 4 ity of mL (0.083 00:00: 00:00 (four) [place] %) 00 :00 hours. May Medical nebulizer also Branch solution nebulize one extra every 6 hours. albuterol 2019- No [id number] 2{puff} Inhale 2 Univers 90 7-12 08-12 [...] Take with food or milk. 2016-02 Yes [id number] 1{packe Take 1 Univers vit 0-05 t} Packet by ity of 33-iron-fol 00:00: mouth [place] ic-dha 00 daily. Medical ([facility] + DHA) 29 mg iron-1 mg -250 mg combo pack 2016-02 Yes [id number] 1{packe Take 1 Univers vit 0-05 t} Packet by ity of 33-iron-fol 00:00: mouth [place] ic-dha 00 daily. Medical ([facility] + DHA) 29 mg iron-1 mg -250 mg combo pack 2016-02 Yes [id number] 1{packe Take 1 [facility] vit 0-05 t} Packet by [facility]y of 33-iron-fol 00:00: mouth [place] ic-dha 00 daily. Medical ([facility] + DHA) 29 mg iron-1 mg -250 mg combo pack 2016-02 Yes [id number] 1{packe Take 1 [facility] vit 0-05 t} Packet by [facility]y of 33-iron-fol 00:00: mouth [place] ic-dha 00 daily. Medical ([facility] + DHA) 29 mg iron-1 mg -250 mg combo pack 2016-02 Yes [id number] 1{packe Take 1 [facility] vit 0-05 t} Packet by ity of 33-iron-fol 00:00: mouth [place] ic-dha 00 daily. Medical ([facility] + DHA) 29 mg iron-1 mg -250 mg combo pack 2016-02 Yes [id number] 1{packe Take 1 [facility] vit 0-05 t} Packet by [facility]y of 33-iron-fol 00:00: mouth [place] ic-dha 00 daily. Medical ([facility] + DHA) 29 mg iron-1 mg -250 mg combo pack 2016-02 Yes [id number] 1{packe Take 1 [facility] vit 0-05 t} Packet by ity of 33-iron-fol 00:00: mouth [place] ic-dha 00 daily. Medical ([facility] + DHA) 29 mg iron-1 mg -250 mg combo pack 2016-02 Yes [id number] 1{packe Take 1 [facility] vit 0-05 t} Packet by [facility]y of [facility]iron-fol 00:00: mouth [place] ic-dha 00 daily. Medical ([facility] + DHA) 29 mg iron-1 mg -250 mg combo pack 2016-02 2020- No [id number] 1{packe Take 1 [facility] vit 0-05 08-12 t} Packet by [facility] [place]. [facility] ([facility] + DHA) 29 mg iron-1 mg -250 mg combo pack 2016-02 2020- No [id number] 1{packe Take 1 [facility] vit 0-05 08-12 t} Packet by [facility]:[place] daily. [facility] ([facility] + DHA) 29 mg iron-1 mg -250 mg combo pack Immunizations Ordered Filled Immunization Date Status Comments [facility] e Immunization Name Name TDAP 2020-09-15 Completed [facility] 00:00:00 [facility] TDAP 2020-09-15 Completed [facility] of 00:00:00 [facility] TDAP 2020-09-15 Completed [facility] of 00:00:00 [facility] TDAP 2020-09-15 Completed [facility] of 00:00:00 [facility] TDAP 2020-09-15 Completed [facility] of 00:00:00 [facility] TDAP 2020-09-15 Completed [facility] of 00:00:00 [facility] TDAP 2020-09-15 Completed [facility] of 00:00:00 [facility] TDAP 2020-09-15 Completed [facility] of 00:00:00 [facility] TDAP 2020-09-15 Completed [facility] of 00:00:00 [facility] TDAP 2020-09-15 Completed [facility] 00:00:00 [facility] TDAP 2017-02-09 Completed [facility] 00:00:00 [facility] TDAP 2017-02-09 Completed [facility] 00:00:00 [facility] TDAP 2017-02-09 Completed [facility] 00:00:00 [facility] TDAP 2017-02-09 Completed [facility] 00:00:00 [facility] TDAP 2017-02-09 Completed [facility] 00:00:00 [facility] TDAP 2017-02-09 Completed [facility] 00:00:00 [facility] TDAP 2017-02-09 Completed [facility] 00:00:00 [facility] TDAP 2017-02-09 Completed [facility] 00:00:00 [facility] TDAP 2017-02-09 Completed [facility] 00:00:00 [facility] TDAP 2017-02-09 Completed [facility] 00:00:00 [facility] TDAP 2017-02-09 Completed [facility] 00:00:00 [facility] TDAP 2017-02-09 Completed [facility] 00:00:00 [facility] TDAP 2017-02-09 Completed [facility] 00:00:00 [facility] TDAP 2017-02-09 Completed [facility] 00:00:00 [facility] TDAP 2017-02-09 Completed [facility] of 00:00:00 [facility] TDAP 2017-02-09 Completed [facility] of 00:00:00 [facility] TDAP 2017-02-09 Completed [facility] of 00:00:00 [facility] TDAP 2017-02-09 Completed [facility] of 00:00:00 [facility] TDAP 2017-02-09 Completed [facility] 00:00:00 [facility] TDAP 2017-02-09 Completed [facility] 00:00:00 [facility] TDAP 2017-02-09 Completed [facility] 00:00:00 [facility] TDAP 2017-02-09 Completed [facility] 00:00:00 [facility] TDAP 2017-02-09 Completed [facility] 00:00:00 [facility] TDAP 2017-02-09 Completed [facility] 00:00:00 [facility] TDAP 2017-02-09 Completed [facility] 00:00:00 [facility] TDAP 2017-02-09 Completed [facility] 00:00:00 [facility] TDAP 2017-02-09 Completed [facility] 00:00:00 [facility] TDAP 2017-02-09 Completed [facility] 00:00:00 [facility] TDAP 2017-02-09 Completed [facility] 00:00:00 [facility] TDAP 2017-02-09 Completed [facility] 00:00:00 [facility] TDAP 2017-02-09 Completed [facility] 00:00:00 [facility] TDAP 2017-02-09 Completed [facility] 00:00:00 [facility] TDAP 2017-02-09 Completed [facility] 00:00:00 [facility] TDAP 2017-02-09 Completed [facility] 00:00:00 [facility] TDAP 2017-02-09 Completed [facility] 00:00:00 [facility] TDAP 2017-02-09 Completed [facility] 00:00:00 [facility] TDAP 2017-02-09 Completed [facility] 00:00:00 [facility] TDAP 2017-02-09 Completed [facility] of 00:00:00 [facility] TDAP 2017-02-09 Completed [facility] of 00:00:00 [facility] TDAP 2017-02-09 Completed [facility] 00:00:00 [facility] TDAP 2017-02-09 Completed [facility] of 00:00:00 [facility] TDAP 2017-02-09 Completed [facility] of 00:00:00 [facility] TDAP 2017-02-09 Completed [facility] 00:00:00 [facility] TDAP 2017-02-09 Completed [facility] 00:00:00 [facility] TDAP 2017-02-09 Completed [facility] 00:00:00 [facility] TDAP 2017-02-09 Completed [facility] 00:00:00 [facility] TDAP 2017-02-09 Completed [facility] 00:00:00 [facility] TDAP 2017-02-09 Completed [facility] 00:00:00 [facility] TDAP 2017-02-09 Completed [facility] 00:00:00 [facility] TDAP 2017-02-09 Completed [facility] 00:00:00 [facility] TDAP 2017-02-09 Completed [facility] 00:00:00 [facility] TDAP 2017-02-09 Completed [facility] 00:00:00 [facility] TDAP 2017-02-09 Completed [facility] 00:00:00 [facility] TDAP 2017-02-09 Completed [facility] of 00:00:00 [facility] TDAP 2017-02-09 Completed [facility] of 00:00:00 [place] [facility] TDAP 2017-02-09 Completed [facility] of 00:00:00 [facility] TDAP 2017-02-09 Completed University of 00:00:00 [facility] TDAP 2017-02-09 Completed [facility] of 00:00:00 [facility] TDAP 2017-02-09 Completed University of 00:00:00 [facility] TDAP 2007-02-07 Completed University of 00:00:00 [facility] TDAP 2007-02-07 Completed [facility] of 00:00:00 [facility] TDAP 2007-02-07 Completed [facility] of 00:00:00 [facility] TDAP 2007-02-07 Completed [facility] of 00:00:00 [facility] TDAP 2007-02-07 Completed [facility] of 00:00:00 [facility] TDAP 2007-02-07 Completed [facility] of 00:00:00 [facility] TDAP 2007-02-07 Completed [facility] of 00:00:00 [facility] TDAP 2007-02-07 Completed University of 00:00:00 [facility] TDAP 2007-02-07 Completed University of 00:00:00 [facility] TDAP 2007-02-07 Completed [facility] of 00:00:00 [facility] TDAP 2007-02-07 Completed [facility] of 00:00:00 [facility] TDAP 2007-02-07 Completed [facility] of 00:00:00 [facility] TDAP 2007-02-07 Completed [facility] of 00:00:00 [facility] TDAP 2007-02-07 Completed [facility] of 00:00:00 [facility] TDAP 2007-02-07 Completed [facility] of 00:00:00 [facility] TDAP 2007-02-07 Completed [facility] of 00:00:00 [facility] TDAP 2007-02-07 Completed [facility] of 00:00:00 [facility] TDAP 2007-02-07 Completed [facility] of 00:00:00 [facility] TDAP 2007-02-07 Completed [facility] of 00:00:00 [facility] TDAP 2007-02-07 Completed [facility] of 00:00:00 [facility] TDAP 2007-02-07 Completed [facility] of 00:00:00 [facility] TDAP 2007-02-07 Completed [facility] of 00:00:00 [facility] TDAP 2007-02-07 Completed [facility] of 00:00:00 [facility] TDAP 2007-02-07 Completed [facility] of 00:00:00 [facility] TDAP 2007-02-07 Completed [facility] of 00:00:00 [facility] TDAP 2007-02-07 Completed [facility] of 00:00:00 [facility] TDAP 2007-02-07 Completed [facility] of 00:00:00 [facility] TDAP 2007-02-07 Completed [facility] of 00:00:00 [facility] TDAP 2007-02-07 Completed [facility] of 00:00:00 [facility] TDAP 2007-02-07 Completed [facility] of 00:00:00 [facility] TDAP 2007-02-07 Completed [facility] of 00:00:00 [facility] TDAP 2007-02-07 Completed [facility] of 00:00:00 [facility] TDAP 2007-02-07 Completed [facility] of 00:00:00 [facility] TDAP 2007-02-07 Completed [facility] of 00:00:00 [facility] TDAP 2007-02-07 Completed [facility] of 00:00:00 [facility] TDAP 2007-02-07 Completed [facility] of 00:00:00 [facility] TDAP 2007-02-07 Completed [facility] of 00:00:00 [facility] TDAP 2007-02-07 Completed [facility] of 00:00:00 [facility] TDAP 2007-02-07 Completed [facility] of 00:00:00 [facility] TDAP 2007-02-07 Completed [facility] of 00:00:00 [facility] TDAP 2007-02-07 Completed [facility] of 00:00:00 [facility] TDAP 2007-02-07 Completed [facility] of 00:00:00 [facility] TDAP 2007-02-07 Completed [facility] of 00:00:00 [facility] TDAP 2007-02-07 Completed [facility] of 00:00:00 [facility] TDAP 2007-02-07 Completed [facility] of 00:00:00 [facility] TDAP 2007-02-07 Completed [facility] of 00:00:00 [facility] TDAP 2007-02-07 Completed [facility] of 00:00:00 [facility] TDAP 2007-02-07 Completed [facility] of 00:00:00 [facility] TDAP 2007-02-07 Completed [facility] of 00:00:00 [facility] TDAP 2007-02-07 Completed [facility] of 00:00:00 [facility] TDAP 2007-02-07 Completed [facility] of 00:00:00 [facility] TDAP 2007-02-07 Completed [facility] 00:00:00 [facility] TDAP 2007-02-07 Completed [facility] 00:00:00 [facility] TDAP 2007-02-07 Completed [facility] 00:00:00 [facility] TDAP 2007-02-07 Completed [facility] 00:00:00 [facility] TDAP 2007-02-07 Completed [facility] 00:00:00 [facility] TDAP 2007-02-07 Completed [facility] 00:00:00 [facility] TDAP 2007-02-07 Completed [facility] 00:00:00 [facility] TDAP 2007-02-07 Completed [facility] of 00:00:00 [facility] Vital Signs Vital Name Observation Time Observation Value Comments Source Systolic blood 2020-10-16 19:34:00 104 mm[Hg] Univer sity of pressure [facility] Diastolic blood 2020-10-16 19:34:00 64 mm[Hg] Unive rsity of pressure [facility] Heart rate 2020-10-16 19:34:00 95 /min Universi ty [facility] Body temperature 2020-10-16 19:34:00 37.06 [facility] 2020-10-16 19:34:00 18 /min [facility] Body height 2020-10-16 19:34:00 154.9 cm Univers ty [facility] Body weight 2020-10-16 19:34:[address] [facility] BMI 2020-10-16 19:34:00 33.88 kg/m2 Universi ty [facility] Systolic blood 2020-09-15 19:34:00 107 mm[Hg] Univer sity of pressure [facility] Diastolic blood 2020-09-15 19:34:00 67 mm[Hg] Unive rsity of pressure [facility] Heart rate 2020-09-15 19:34:00 98 /min Universi ty [facility] Body temperature 2020-09-15 19:34:00 37.17 [facility] 2020-09-15 19:34:00 16 /min [facility] Body height 2020-09-15 19:34:00 154.9 cm Universi ty [facility] Body weight 2020-09-15 19:34:00 80.922 kg [facility]i ty [facility] BMI 2020-09-15 19:34:00 33.71 kg/m2 [facility] Systolic blood 2020-08-28 19:23:00 109 mm[Hg] Univer sity of pressure [facility] Diastolic blood 2020-08-28 19:23:00 70 mm[Hg] Unive rsity of pressure [facility] Heart rate 2020-08-28 19:23:00 107 /min [facility]i [facility] Body temperature 2020-08-28 19:23:00 36.94 Brigitte [facility] ersity of [facility] Respiratory rate 2020-08-28 19:23:00 18 /min Univ ersity of [facility] Body height 2020-08-28 19:23:00 154.9 cm [facility] Body weight 2020-08-28 19:23:00 79.379 kg [facility] BMI 2020-08-28 19:23:00 33.07 kg/m2 [facility] Oxygen saturation in 2020-08-28 19:23:00 97 /min [facility] of Arterial blood by [place] [employer] Pulse oximetry [facility] Systolic blood 2020-08-28 19:23:00 109 mm[Hg] Univer sity of pressure [facility] Diastolic blood 2020-08-28 19:23:00 70 mm[Hg] Unive rsity of pressure [facility] Heart rate 2020-08-28 19:23:00 107 /min [facility] Body temperature 2020-08-28 19:23:00 36.94 Brigitte [facility] ersity [facility] [place] [facility] Respiratory rate 2020-08-28 19:23:00 18 /min Univ ersity of [facility] Body height 2020-08-28 19:23:00 154.9 cm [facility] Body weight 2020-08-28 19:23:00 79.379 kg [facility] BMI 2020-08-28 19:23:00 33.07 kg/m2 [facility] Oxygen saturation in 2020-08-28 19:23:00 97 /min [facility] of Arterial blood by [employer] [facility] Systolic blood 2020-08-27 [...] 2020-08-27 15:37:00 32.83 kg/m2 [facility] Systolic blood 2020-07-30 15:52:00 103 [...] 2020-07-30 15:52:00 80.015 kg [facility] BMI 2020-07-30 15:52:00 32.79 kg/m2 [facility] Systolic blood 2020-07-01 19:19:00 100 mm[Hg] Univer sity of pressure [facility] Diastolic blood 2020-07-01 19:19:00 62 mm[Hg] Unive rsity of pressure [facility] Heart rate 2020-07-01 19:19:00 79 /min [facility] Body temperature 2020-07-01 19:19:00 37.06 Brigitte [facility] ersity [facility] Respiratory rate 2020-07-01 19:19:00 16 /min Univ ersity of [facility] Body height 2020-07-01 19:19:00 156.2 cm [facility] Body weight 2020-07-01 19:19:00 79.652 kg [facility] BMI 2020-07-01 19:19:00 32.64 kg/m2 [facility] Systolic blood 2020-06-17 13:54:00 105 mm[Hg] Univer sity of pressure [facility] Diastolic blood 2020-06-17 13:54:00 70 mm[Hg] Unive rsity of pressure [facility] Heart rate 2020-06-17 13:54:00 78 /min [facility] Body temperature 2020-06-17 13:54:00 36.94 Brigitte [facility] ersity of [place] [facility] Respiratory rate 2020-06-17 13:54:00 16 /min Univ ersity of [facility] Body height 2020-06-17 13:54:00 152.4 cm [facility] Body weight 2020-06-17 13:54:00 80.468 kg [facility] [place] [facility] BMI 2020-06-17 13:54:00 34.65 kg/m2 [facility] [place] [facility] Systolic blood 2020-06-04 03:00:00 125 mm[Hg] Univer sity of pressure [facility] Diastolic blood 2020-06-04 03:00:00 65 mm[Hg] Unive rsity of pressure [facility] Heart rate 2020-06-04 03:00:00 90 /min [facility] [place] [facility] Body temperature 2020-06-04 03:00:00 36.89 Brigitte [facility] ersity [facility] [place] [facility] Respiratory rate 2020-06-04 03:00:00 22 /min Univ ersity of [facility] Oxygen saturation in 2020-06-04 03:00:00 100 /min [facility] of Arterial blood by [facility] Pulse oximetry Branch Body weight 2020-06-04 01:18:00 80.74 kg [facility] BMI 2020-06-04 01:18:00 33.63 kg/m2 [facility] [place] [facility] Systolic blood 2020-05-13 15:04:00 103 mm[Hg] Univer sity of pressure [facility] Diastolic blood 2020-05-13 15:04:00 72 mm[Hg] Unive rsity of pressure [facility] Heart rate 2020-05-13 15:04:00 87 /min [facility] Body temperature 2020-05-13 15:04:00 36.83 Brigitte [facility] ersity [facility] Respiratory rate 2020-05-13 15:04:00 16 /min Univ ersity [facility] Body height 2020-05-13 15:04:00 154.9 cm [facility] Body weight 2020-05-13 15:04:00 80.372 kg [facility] BMI 2020-05-13 15:04:00 33.48 kg/m2 [facility] Systolic blood 2020-04-03 07:04:39 114 mm[Hg] Univer sity of pressure [facility] Diastolic blood 2020-04-03 07:04:39 77 mm[Hg] Unive rsity of pressure [facility] Heart rate 2020-04-03 07:04:39 94 /min [facility] [place] [facility] Respiratory rate 2020-04-03 07:04:39 15 /min Univ ersity of [facility] Oxygen saturation in 2020-04-03 07:04:39 100 /min [facility] of Arterial blood by [facility] Pulse oximetry Branch Body temperature 2020-04-03 05:13:00 36.61 Brigitte [facility] ersity [facility] Body height 2020-04-03 05:13:00 154.9 cm [facility] Body weight 2020-04-03 05:13:00 83.915 kg [facility] [place] [facility] BMI 2020-04-03 05:13:00 34.96 kg/m2 [facility] Systolic blood 2020-04-01 15:34:00 117 mm[Hg] Univer sity of pressure [facility] Diastolic blood 2020-04-01 15:34:00 81 mm[Hg] Unive rsity of pressure [facility] Heart rate 2020-04-01 15:34:00 101 /min [facility] Body temperature 2020-04-01 15:34:00 36.61 Brigitte [facility] ers[facility] Respiratory rate 2020-04-01 15:34:00 16 /min Univ ersity [facility] Body height 2020-04-01 15:34:00 152.4 cm [facility] Body weight 2020-04-01 15:34:00 83.093 kg [facility] BMI 2020-04-01 15:34:00 35.78 kg/m2 [facility] Systolic blood 2019-09-14 18:04:00 122 mm[Hg] Univer sity of pressure [facility] Diastolic blood 2019-09-14 18:04:00 81 mm[Hg] Unive rsity of pressure [facility] Heart rate 2019-09-14 18:04:00 94 /min [facility] Body temperature 2019-09-14 18:04:00 37.11 Brigitte [facility] ers[facility] Respiratory rate 2019-09-14 18:04:00 18 /min Univ ersity [facility] Body height 2019-09-14 18:04:00 152.4 cm [facility] Body weight 2019-09-14 18:04:00 81.647 kg [facility] BMI 2019-09-14 18:04:00 35.15 kg/m2 [facility] Oxygen saturation in 2019-09-14 18:04:00 97 /min [facility] Arterial blood by [facility] Pulse oximetry Branch Systolic blood 2019-08-23 20:22:00 110 mm[Hg] Univer sity of pressure [facility] Diastolic blood 2019-08-23 20:22:00 82 mm[Hg] Unive rsity of pressure [place] [facility] Heart rate 2019-08-23 20:22:00 106 /min [facility] Body temperature 2019-08-23 20:22:00 37 Brigitte [facility] ersity [facility] [place] [facility] Respiratory rate 2019-08-23 20:22:00 18 /min Univ ersity of [facility] Body height 2019-08-23 20:22:00 152.4 cm [facility] Body weight 2019-08-23 20:22:00 81.92 kg [facility] BMI 2019-08-23 20:22:00 35.27 kg/m2 [facility] Oxygen saturation in 2019-08-23 20:22:00 96 /min [facility] of Arterial blood by [facility] Pulse oximetry Branch Systolic blood 2019-08-22 19:15:00 112 mm[Hg] Univer sity of pressure [facility] Diastolic blood 2019-08-22 19:15:00 93 mm[Hg] Unive rsity of pressure [facility] Heart rate 2019-08-22 19:14:00 97 /min [facility] Body temperature 2019-08-22 19:14:00 36.44 Brigitte [facility] Respiratory rate 2019-08-22 19:14:00 16 /min Univ ersity [facility] Body weight 2019-08-22 19:14:00 81.647 kg [facility] BMI 2019-08-22 19:14:00 34.01 kg/m2 [facility] Oxygen saturation in 2019-08-22 19:14:00 99 /min [facility] of Arterial blood by [facility] Pulse oximetry Branch Systolic blood 2019-08-22 18:32:00 110 mm[Hg] Univer sity of pressure [facility] Diastolic blood 2019-08-22 18:32:00 73 mm[Hg] Unive rsity of pressure [place] [facility] Heart rate 2019-08-22 18:32:00 98 /min [facility] Body temperature 2019-08-22 18:32:00 37.17 Brigitte [facility] Respiratory rate 2019-08-22 18:32:00 16 /min Univ ersity [facility] Body height 2019-08-22 18:32:00 154.9 cm Universi ty of [facility] Body weight 2019-08-22 18:32:00 82.464 kg Universi ty of [facility] BMI 2019-08-22 18:32:00 34.35 kg/m2 Universi ty [facility] Oxygen saturation in 2019-08-22 18:32:00 100 /min [facility] of Arterial blood by [facility] Pulse oximetry Branch Systolic blood 2019-08-20 01:55:00 117 mm[Hg] Univer sity of pressure [facility] Diastolic blood 2019-08-20 01:55:00 88 [facility]Hg[facility] 01:55:00 86 /min Universi ty of [facility] Body temperature 2019-08-20 01:55:00 37.56 Brigitte [facility] Respiratory rate 2019-08-20 01:55:00 22 /min [facility] Body height 2019-08-20 01:55:00 152.4 cm Universi ty [facility] Body weight 2019-08-20 01:55:00 83.462 kg Universi ty [facility] BMI 2019-08-20 01:55:00 35.94 kg/m2 Universi ty [facility] Oxygen saturation in 2019-08-20 01:55:00 99 /min [place] of Arterial blood by [facility] Pulse oximetry Branch Procedures Procedure Date / Time Performing Clinician Source Performed CENTRAL NEURAXIAL BLOCK 2020-11-26 02:06:09 Carine Smith [place] [facility] PO[facility] URINALYSIS 2020-10-16 19:37:00 Dany Carias [facility] STERILIZATION CONSENT 2020-10-16 05:01:00 Doctor Unassigned, No [facility] FORM Name [facility] TDAP VACCINE, >11 YRS, 2020-09-15 19:37:56 Dany [facility] POCT URINALYSIS 2020-09-15 19:36:00 Dany Carias [facility] XR CHEST 2 VW 2020-08-28 21:03:53 [facility] POCT GRP A STREP 2020-08-28 19:43:00 Vipul [facility] (MOLECULAR) [facility] POCT URINALYSIS 2020-08-27 16:49:00 Dany Carias [facility] ASSIGNMENT OF BENEFITS 2020-08-27 15:01:02 Doctor Unassigned, No [facility] POCT URINALYSIS 2020-07-30 16:02:00 Dany Carias [facility] POCT URINALYSIS 2020-07-01 19:24:00 Dany Carias [facility] POCT URINALYSIS 2020-06-17 13:56:00 Dany Carias [facility] RAPID STREP SCREEN FOR 2020-06-04 02:00:00 Julio Da Silva [facility] GROUP A [facility] COVID-19 (ID NOW RAPID 2020-06-04 02:00:00 Julio Da Silva [facility] TESTING) [facility] POCT URINALYSIS 2020-05-13 15:06:00 Dany Carias [facility] POCT TEST 2020-04-03 05:44:[address] [facility] URINALYSIS 2020-04-03 05:30:00 Yoshi Esparza [facility] POCT TEST 2020-04-01 15:37:00 Dany Carias [facility] POCT URINALYSIS 2020-04-01 15:36:00 Dany Carias [facility] ASSIGNMENT OF BENEFITS 2020-04-01 15:15:16 Doctor Unassigned, No [facility] XR SPINE THORACIC 4 2019-09-21 17:31:22 [facility]AC[facility] 4 2019-09-21 17:31:22 Christina Thakkarful [facility] XR CERVICAL SPINE 4 2019-09-21 16:12:52 Yoseph Thakkar A U [facility] XR CERVICAL SPINE 4 VW 2019-09-21 16:12:52 Yoseph Thakkar U [facility] ASSIGNMENT OF BENEFITS 2019-09-20 14:56:33 Doctor Unassigned, No [facility] ASSIGNMENT OF BENEFITS 2019-08-20 01:45:49 Doctor Unassigned, No [facility] CONSENT/REFUSAL FOR 2019-08-20 01:44:04 Doctor Unassigned, No [facility] DIAGNOSIS AND TREATMENT [facility] Encounters Start End Encounter Admission Attending Care Care Encounter Source Date/Time Date/Time Type Type Clinicians Facility Department ID 2020-12-09 Emergency [facility] [id number] Univers 07:57:56 ity of [facility] 2020-12-07 Emergency [facility] [id number] Univers 15:42:49 ity of [facility] 2020-12-07 Emergency [facility] [id number] Univers 01:14:36 ity of [facility] 2020-12-05 Emergency [facility] [id number] Univers 06:56:18 ity of [facility] 2020-12-05 Emergency [facility] [id number] Univers [facility]-22 Inpatient HCACL MALACHI [id number] [facility] 08:59:00 [id number] [facility] 2020-11-26 2020-11-26 Outpatient INDUCTION, [facility] [id number] Univers 08:00:00 08:00:00 KEARA [id number] ity [facility] 2020-11-25 2020-11-26 [facility] 1.2.840.114 [id number] Univers 20:45:00 00:47:00 Event Carine De La Fuente 350.1.13.10 i ty of [place] 4.2.7.2.686 [facility] [phone] [place] [address] [address] 2020-11-24 2020-11-24 [facility] 1.2.840.114 [id number] Univers 00:00:00 00:00:00 Dany Banks FILTER CHANGING TECHNICIAN 350.1.13.[address] [facility] 4.2.7.2.686 [place] as MATERNAL [id number] [facility] & [address] 2020-11-20 2020-11-20 Outpatient Jocelyn SANCHEZ [facility] [id number] Univers 10:15:00 10:15:00 NORA [id number] [facility] 2020-11-20 2020-11-20 [facility] [id number] Univers 10:15:00 10:15:00 NORA [facility] 2020-11-17 2020-11-17 Telephone [facility] 1.2.840.114 [id number] Univers 00:00:00 00:00:00 Nora Montoya FILTER CHANGING TECHNICIAN 350.1.13.10 it y of REGIONAL 4.2.7.2.686 [place] as MATERNAL [phone] [facility] & [address] 2020-11-10 2020-11-10 Outpatient Jocelyn SANCHEZ [facility] [id number] Univers 10:30:00 10:30:00 NORA [id number] [facility] 2020-11-10 2020-11-10 [facility] [id number] Univers 10:30:00 10:30:00 NORA [facility] 2020-10-30 2020-10-30 [facility] [id number] Univers 12:45:00 12:45:00 NORA [id number] [facility] 2020-10-30 2020-10-30 [facility] [id number] Univers 12:45:00 12:45:00 NORA [facility] 2020-10-16 2020-10-16 [facility] 1.2.286.921 [id number] Univers 14:23:36 15:09:33 Nora Montoya FILTER CHANGING TECHNICIAN 350.1.13.10 i ty of Visit REGIONAL 4.2.7.2.686 [place] as MATERNAL [phone] [facility] & [address] 2020-10-16 2020-10-16 [facility] [id number] Univers 13:00:00 13:00:00 [facility] [id number] [facility] 2020-10-16 2020-10-16 Outpatient Jocelyn SNACHEZ [facility] [id number] Univers 13:00:00 13:00:00 NORA isac [facility] 2020-10-16 2020-10-16 Orders Doctor KEARA 1.2.840.114 [id number] Univers 00:00:00 00:00:00 Only Unassigned, CASI 350.1.13.[address] [facility] 4.2.7.2.686 [place] as [phone] [address] 2020-10-15 2020-10-15 Outpatient Jocelyn CARIAS [facility] [id number] -20 Univers 09:45:00 09:45:00 DANY [id number] ity o [facility] 2020-10-15 2020-10-15 Outpatient Jocelyn CARIAS [facility] [id number] Univers 09:45:00 09:45:00 DANY isac o [facility] 2020-10-07 2020-10-07 Outpatient Jocelyn SANCHEZ [facility] [id number] Univers 08:00:00 08:00:00 NORA [id number] [facility] 2020-10-07 2020-10-07 [facility] [id number] Univers 08:00:00 08:00:00 NORA isac [facility] 2020-09-30 2020-09-30 Outpatient Jocelyn CARIAS [facility] [id number] Univers 18:00:00 18:00:00 DANY ity o [facility] 2020-09-30 2020-09-30 Outpatient Jocelyn CARIAS [facility] [id number] -20 Univers 11:45:00 11:45:00 DANY [id number] ity o [facility] 2020-09-30 2020-09-30 Outpatient Jocelyn CARIAS [facility] [id number] Univers 11:45:00 11:45:00 DANY ity o [facility] 2020-09-29 2020-09-29 Outpatient [facility] [id number] -20 Univers 16:45:00 16:45:00 DANY [id number] ity o f [facility] 2020-09-29 2020-09-29 Outpatient [facility] [id number] Univers 16:45:00 16:45:00 DANY boyery o f [facility] 2020-09-15 2020-09-15 Routine [facility] 1.2.840.114 [id number] Univers 13:58:57 15:37:45 Dany R FILTER CHANGING TECHNICIAN 350.1.13.10 ity of Visit REGIONAL 4.2.7.2.686 [place] as MATERNAL [id number] Med ical & CHILD [address] [place] [address] 2020-09-15 2020-09-15 Outpatient [facility] [id number] Univers 13:15:00 13:15:00 DANY vance o nikia [facility] 2020-09-12 2020-09-12 Nurse Leidy Duran 1.2.840.114 [id number] Univers 00:00:00 00:00:00 Triage CASI 350.1.13.10 it y of HOSPITAL 4.2.7.2.686 [place] as [phone] [facility] [address] 2020-08-29 2020-08-29 Telephone NurseDrake [facility] 1.2.840.114 [id number] Univers 00:00:00 00:00:00 Urgent Care Health 350.1.13.10 ity of Surgical 4.2.7.2.686 [place] as Specialti [phone] Nc dical es 370 [facility] 2020-08-28 2020-08-28 [facility] 1.2.840.114 [id number] Univers 15:21:38 23:59:00 Encounter [place] Sudhakar 350.1.13.10 ity of [place] [id number] [facility] [address] 2020-08-28 2020-08-28 [facility] 1.2.840.114 [id number] 15:21:38 23:59:00 Encounter [place] 350.1.13.10 [place] 4.2.7.2.686 [place] [id number] 807 2020-08-28 2020-08-28 Urgent [place] Matthew [facility] 1.2.840.114 [id number] Univers 14:13:24 15:23:42 Care Toby [place] [facility] 350.1.13.10 ity [facility] 4.2.7.2.686 [place] as Professio [phone] [place] dical [address] Office [address] [employer] 2020-08-28 2020-08-28 Urgent Vipul [facility] 1.2.840.114 [id number] 14:13:24 15:23:42 Care [place] Murillo 350.1.13.10 [place] 4.2.7.2.686 Professio [id number] [address] One 2020-08-28 2020-08-28 Outpatient [facility] [id number] Univers 14:20:00 14:20:00 TOBY [facility] 2020-08-28 2020-08-28 Outpatient R [facility] [id number] -[id number] Univers 13:00:00 13:00:00 [id number] [facility] 2020-08-27 2020-08-27 Routine [facility] 1.2.840.114 [id number] 10:01:23 11:16:37 Roshunda R FILTER CHANGING TECHNICIAN 350.1.13.10 Visit REGIONAL 4.2.7.2.686 MATERNAL [phone] & CHILD [address] [place] [address] 2020-08-27 2020-08-27 Routine [facility] 1.2.840.114 [id number] Univers 10:01:23 11:16:37 Roshunda R FILTER CHANGING TECHNICIAN 350.1.13.10 ity of Visit REGIONAL 4.2.7.2.686 [place] as MATERNAL [phone] Med ical & CHILD [address] [place] [address] 2020-08-27 2020-08-27 [facility]patient [facility] [id number] -20 Univers 09:00:00 09:00:00 ROSHUNDA [id number] ity o f [facility] 2020-08-27 2020-08-27 Outpatient R JV [facility] [id number] Univers 09:00:00 09:00:00 DANY ity o f [facility] 2020-08-27 2020-08-27 Orders Doctor KEARA 1.2.840.114 [id number] 00:00:00 00:00:00 Only Unassigned, CASI 350.1.13.10 [place] [facility] 4.2.7.2.686 [id number] [id number] 2020-08-27 2020-08-27 Orders Doctor KEARA 1.2.840.114 [id number] Univers 00:00:00 00:00:00 Only Unassigned, CASI 350.1.13.10 ity of [place] [facility] 4.2.7.2.686 Jaison as [phone] [facility] [address] [place] 2020-08-19 2020-08-19 Licensed Funeral Director 1, [facility] UNIVERSIT 1.2.840.11 [id number] 14:50:51 15:35:51 Visit [facility] Room Y HEALTH 350.1.13.10 CLINICS 4.2.7.2.686 [id number] [facility] 2020-08-19 2020-08-19 Licensed Funeral Director 1, [facility] Room UNIVERSIT 1 .2.840.114 [id number] Univers 14:50:51 15:35:51 Visit Arcelia Lucasjuanyemile, Daniel Y HEALTH 350.1 .13.10 ity of CLINICS [place].7.2.[place] [id number] [facility] [address] 2020-08-19 2020-08-19 Outpatient P [facility] [id number] -[id number] Univers 14:15:00 14:15:00 [id number] ity [facility] 2020-08-19 2020-08-19 Outpatient P [facility] [id number] Univers 14:15:00 14:15:00 ity [facility] 2020-08-11 2020-08-11 Outpatient R [facility] [id number] -20 Univers 08:45:00 08:45:00 [id number] ity [facility] 2020-08-112020-08-11 Outpatient P [facility] [id number] Univers 08:45:00 08:45:00 ity of [facility] 2020-08-06 2020-08-06 Nurse KEARA Jiménez 1.2.849.748 [id number] 00:00:00 00:00:00 Triage Mike CASI 350.1.13.10 HOSPITAL 4.2.7.2.686 [id number] [facility] 2020-08-06 2020-08-06 KEARA Moyer 1.2.686.116 [id number] Univers 00:00:00 00:00:00 Triage Mike CASI 350.1.13.10 it y of [facility] 4.2.7.2.686 [place] as [phone] [address] 2020-08-06 2020-08-06 [place] Jv [facility] 1.2.769.052 [id number] Univers 00:00:00 00:00:00 Rosbenjaminnda R FILTER CHANGING TECHNICIAN 350.1.13.10 ity of REGIONAL 4.2.7.2.686 [place] as MATERNAL [phone] Med ical & CHILD [address] [place] [address] 2020-07-30 2020-07-30 [facility] 1.2.840.114 [id number] Univers 10:22:14 10:37:14 Rosbenjaminnda R FILTER CHANGING TECHNICIAN 350.1.13.[address] [facility] 4.2.7.2.686 [place] as MATERNAL [phone] [facility] ical & CHILD [address] [place] [address] 2020-07-30 2020-07-30 Outpatient Jocelyn CARIAS [facility] [id number] -[id number] Univers 10:15:00 10:15:00 ROSHUNDA [id number] ity o f [facility] 2020-07-30 2020-07-30 Outpatient Jocelyn CARIAS [facility] [id number] Univers 10:15:00 10:15:00 ROSHUNDA ity o f [facility] 2020-07-21 2020-07-21 Outpatient Jocelyn CARIAS [facility] [id number] Univers 13:45:00 13:45:00 ROSHUNDA ity o f [facility] 2020-07-21 2020-07-21 Outpatient [facility] [id number] -[id number] Univers 10:30:00 10:30:00 [id number] ity of [facility] 2020-07-17 2020-07-17 Outpatient R JV, [facility] [id number] -20 Univers 09:00:00 09:00:00 LISANDROA [id number] ity o f [facility] 2020-07-17 2020-07-17 [facility] [id number] Univers 09:00:00 09:00:00 FELICITASNDA ity o f [facility] 2020-07-14 2020-07-14 Licensed Funeral Director Ultrasound, [facility] 1.2 .840.114 [id number] Univers 09:45:41 11:00:41 Visit Jordan Domingo FILTER CHANGING TECHNICIAN 350.1.13.10 ity of REGIONAL 4.2.7.2.686 [place] as MATERNAL [id number] Med ical & CHILD [address] [facility] 2020-07-14 2020-07-14 Outpatient R [facility] [id number] -[id number] Univers 10:00:00 10:00:00 [id number] ity of [facility] 2020-07-14 2020-07-14 Outpatient P [facility] [id number] Univers 10:00:00 10:00:00 ity of [facility] 2020-07-14 2020-07-14 Khoi Sanchez [facility] 1.2.545.836 [id number] Univers 00:00:00 00:00:00 Management Nora Montoya FILTER CHANGING TECHNICIAN 350.1.13.10 ity of REGIONAL 4.2.7.2.686 [place] as MATERNAL [phone] [facility] & CHILD [address] [place] [address] 2020-07-01 2020-07-01 Routine Jv [facility] 1.2.840.114 [id number] Univers 13:52:00 14:58:28 Roslanaa R FILTER CHANGING TECHNICIAN 350.1.13.10 ity of Visit REGIONAL 4.2.7.2.686 [place] as MATERNAL [id number] [facility] ical & CHILD [address] [place] [address] 2020-07-01 2020-07-01 Outpatient JV [facility] [id number] -[id number] Univers 13:45:00 13:45:00 ROSBENJAMINNDA [id number] ity o f [facility] 2020-07-01 2020-07-01 Outpatient Jocelyn CARIAS [facility] [id number] Univers 13:45:00 13:45:00 ROSHUNDA ity o [facility] 2020-07-01 2020-07-01 Telephone [facility] 1.2.630.577 [id number] Univers 00:00:00 00:00:00 Rosbenjaminnda R FILTER CHANGING TECHNICIAN 350.1.13.10 ity of REGIONAL 4.2.7.2.686 [place] as MATERNAL [phone] [facility] & CHILD [address] [place] [address] 2020-06-17 2020-06-17 Routine [facility] 1.2.840.114 [id number] Univers 08:48:55 09:25:15 Rosbenjaminnda R FILTER CHANGING TECHNICIAN 350.1.13.10 ity of Visit REGIONAL 4.2.7.2.686 [place] as MATERNAL [id number] [facility] & [address] 2020-06-17 2020-06-17 Outpatient Jocelyn CARIAS [facility] [id number] Univers 08:45:00 08:45:00 FELICITASNDA [id number] ity o [facility] 2020-06-17 2020-06-17 Outpatient Jocelyn CARIAS [facility] [id number] Univers 08:45:00 08:45:00 ROSHUNDA ity o [facility] 2020-06-10 2020-06-10 Outpatient Jocelyn CARIAS [facility] [id number] -[id number] Univers 15:45:00 15:45:00 ROSHUNDA [id number] ity o [facility] 2020-06-10 2020-06-10 Outpatient Jocelyn CARIAS [facility] [id number] Univers 15:45:00 15:45:00 ROSBENJAMINNDA ity o [facility] 2020-06-03 2020-06-03 Emergency Da Silva, TRAUMA 1.2.473.806 [id number] Univers 20:19:00 22:12:00 [facility] 350.1.13.10 it[place] [id number] [address] 2020-05-13 2020-05-13 [facility] 1.2.840.114 [id number] Univers 09:59:20 10:14:20 Roshunda R FILTER CHANGING TECHNICIAN 350.1.13.10 ity of Visit REGIONAL 4.2.7.2.686 [place] as MATERNAL [id number] [facility] ical & CHILD [address] [place] [address] 2020-05-13 2020-05-13 Outpatient Jocelyn CARIAS [facility] [id number] -[id number] Univers 10:00:00 10:00:00 FELICITASNDA [id number] ity o [facility] 2020-05-13 2020-05-13 Outpatient [facility] [id number] Univers 10:00:00 10:00:00 ROSBENJAMINNDA ity o [facility] 2020-05-06 2020-05-06 Outpatient [facility] [id number] Univers 11:00:00 11:00:00 FELICITASNDA [id number] itisac o [facility] 2020-05-06 2020-05-06 Outpatient [facility] [id number] Univers 11:00:00 11:00:00 FELICITASNDA rosalind o [facility] 2020-04-29 2020-04-29 Outpatient [facility] [id number] -[id number] Univers 10:45:00 10:45:00 ROSHUNDA [id number] itisac o [facility] 2020-04-29 2020-04-29 Outpatient [facility] [id number] Univers 10:45:00 10:45:00 ROSHUNDA ity o [facility] 2020-04-29 2020-04-29 Telephone [facility] 1.2.101.041 [id number] Univers 00:00:00 00:00:00 Roshunda R FILTER CHANGING TECHNICIAN 350.1.13.10 ity of REGIONAL 4.2.7.2.686 [place] as MATERNAL [id number] [facility] ical & CHILD [address] [place] [address] 2020-04-22 2020-04-22 Nurse KEARA Garcia 1.2.840.114 [id number] Univers 00:00:00 00:00:00 Triage Lynn MCCALLUMY 350.1.13.10 i ty of [facility] 4.2.7.2.686 [place] as [id number] [address] 2020-04-09 2020-04-09 Case Jv [facility] 1.2.840.114 [id number] Univers 00:00:00 00:00:00 Management Dany R FILTER CHANGING TECHNICIAN 350.1.13.[address] [facility] 4.2.7.2.686 [place] as MATERNAL [id number] [facility] & CHILD [address] [place] [address] 2020-04-08 2020-04-08 Licensed Funeral Director Ultrasound, Srinivasaelizabeth [facility] 1.2 .840.114 [id number] Univers 11:32:55 12:14:18 Visit Tracey Jamil FILTER CHANGING TECHNICIAN 350.1.13.[address] [facility] 4.2.7.2.686 [place] as MATERNAL [phone] [facility] & CHILD [address] [facility] 2020-04-08 2020-04-08 Outpatient R [facility] [id number] -[id number] Univers 11:30:00 11:30:00 [id number] ity [facility] 2020-04-08 2020-04-08 Outpatient P [facility] [id number] Univers 11:30:00 11:30:00 ity [facility] 2020-04-08 2020-04-08 Jewell Carias [facility] 1.2.840.114 [id number] Univers 00:00:00 00:00:00 Dany R FILTER CHANGING TECHNICIAN 350.1.13.[address] [facility] 4.2.7.2.686 [place] as MATERNAL [id number] [facility] & CHILD [address] [place] [address] 2020-04-02 2020-04-03 Emergency Vilma DECHARLINE 1.2.840.114 [id number] Univers 23:15:00 01:12:00 [facility] 350.1.13.10 it y of [facility] 4.2.7.2.686 [place] [facility] [phone] [address] ([facility]) 2020-04-02 2020-04-02 Telephone Jv MADAN 1.2.734.232 [id number] Univers 00:00:00 00:00:00 Roshunda R FILTER CHANGING TECHNICIAN 350.1.13.10 ity of REGIONAL 4.2.7.2.686 [place] as MATERNAL [id number] Med ical & CHILD [address] [place] [address] 2020-04-02 2020-04-02 Telephone Carias [facility] 1.2.923.308 [id number] Univers 00:00:00 00:00:00 Roshunda R FILTER CHANGING TECHNICIAN 350.1.13.10 ity of REGIONAL 4.2.7.2.686 [place] as MATERNAL [phone] [facility] ical & CHILD [address] [place] [address] 2020-04-01 2020-04-01 Initial [facility] 1.2.840.114 [id number] Univers 09:25:04 11:05:29 Roshunda R FILTER CHANGING TECHNICIAN 350.1.13.10 ity of Visit REGIONAL 4.2.7.2.686 [place] as MATERNAL [id number] [facility] ical & [address] 2020-04-01 2020-04-01 Outpatient [facility] [id number] Univers 08:30:00 08:30:00 [id number] ity of [facility] 2020-04-01 2020-04-01 Outpatient R [facility] [id number] Univers 08:30:00 08:30:00 ity of [facility] 2020-04-01 2020-04-01 Orders Doctor SARAH 1.2.840.114 [id number] Univers 00:00:00 00:00:00 Only Unassigned, CASI 350.1.13.10 ity of [place] [facility] 4.2.7.2.686 [place] as [id number] [address] 2019-12-18 2019-12-18 Outpatient R [facility] [id number] -[id number] Univers 09:30:00 09:30:00 ity of [facility] 2019-12-18 2019-12-18 Outpatient R [facility] [id number] Univers 09:30:00 09:30:00 ity of [facility] 2019-10-29 2019-10-29 Outpatient [facility] [id number]-20 Univers 10:30:00 10:30:00 WONDIFUL [id number] ity o f [facility] 2019-09-26 2019-09-26 Patient [facility] 1.2.840.114 [id number] Univers 00:00:00 00:00:00 Secure Msg Wondiful A [place] 350.1.13.10 ity of [place].2.[place] Profess[place] [phone] Nc dic[address] 2019-09-21 2019-09-21 [facility] 1.2.384.241 [id number] Univers 11:10:44 23:59:00 Encounter Wondiful A [place] 350.1.13.10 ity of [place].2.686 [place] [id number] [address] 2019-09-21 2019-09-21 [facility] 1.2.257.237 [id number] Univers 11:00:00 11:09:00 Encounter Wondiful A [place] 350.1.13.10 ity of [place] 4[place].2.686 [place] [id number] [address] 2019-09-21 2019-09-21 [facility] 1.2.759.179 [id number] Univers 09:56:26 10:59:00 Encounter Wondiful A [place] 350.1.13.10 ity of [place] [id number] [id number] [address] 2019-09-21 2019-09-21 [facility] [id number]-20 Univers 10:00:00 10:00:00 WONDIFUL [id number] ity o f [facility] 2019-09-21 2019-09-21 [facility] [id number] Univers 00:00:00 00:00:00 WONDIFUL ity o f [facility] 2019-09-21 2019-09-21 Case Sandra [facility] [id number] Univers 00:00:00 00:00:00 Management Wondiful A [place] [id number] [id number] [id number] [place] [address] 2019-09-21 2019-09-21 Patient Sandra [facility] [id number] Univers 00:00:00 00:00:00 Secure Msg Wondiful A [place] [id number] [id number] [phone] [address] 2019-09-20 2019-09-20 Laboratory Only, Adc Test [facility] [id number]. [id number] Univers 10:01:43 10:16:43 Only Kevan Beaulieu [place] [id number] [place] [id number] [phone] [address] 2019-09-20 2019-09-20 Licensed Funeral Director Naomi, Adc Lab Main [facility] [id number] Univers 09:55:41 10:10:41 Visit Yoseph Thakkar [place] 350.1.13. 10 [place] [id number] [phone] [address] 2019-09-20 2019-09-20 Outpatient [facility] [id number] N-20 Univers 09:30:00 09:30:00 WONDIFUL [id number] ity o f [facility] 2019-09-20 2019-09-20 Outpatient R SANDRA [facility] [id number] Univers 00:00:00 00:00:00 WONDIFUL ity o f [facility] 2019-09-20 2019-09-20 Orders Doctor SARAH 1.2.840.114 [id number] Univers 00:00:00 00:00:00 Only Unassigned, CASI [id number] [facility] of [facility] [id number] Jaison as [phone] [address] 2019-09-19 2019-09-19 [facility] 1.2.840.114 [id number] Univers 13:45:12 15:57:17 ne Visit Wondiful A [place] [id number] ity of [place] [phone] [address] 2019-09-19 2019-09-19 Outpatient R SANDRA [facility] [id number] Univers 09:45:00 09:45:00 WONDIFUL ity o f [facility] 2019-09-19 2019-09-19 [facility] [id number] Univers 08:45:00 08:45:00 WONDIFUL [id number] ity o f [facility] 2019-09-19 2019-09-19 Telephone [facility] 1.2.840.114 [id number] Univers 00:00:00 00:00:00 Wondiful A Health [id number] ity of [place] 4.2.7.2.686 Jaison as Professio [phone] [address] Office [facility] 2019-09-14 2019-09-14 Urgent Pob1, Acute Care Clinic [facility] 1. 2.840.114 [id number] Univers 12:46:19 13:54:37 Tyrese Lewis [id number] ity of [place] [id number] Jaison as Professio [phone] [address] Office [facility] 2019-09-14 2019-09-14 Outpatient R [facility] [id number] Univers 13:00:00 13:00:00 [id number] ity [facility] 2019-09-14 2019-09-14 Outpatient R DELMAR [facility] [id number] Univers 13:00:00 13:00:00 TYRESE ity [facility] 2019-08-28 2019-08-28 Outpatient R MURRAY [facility] [id number] Univers 11:00:00 11:00:00 SENDIL [id number] ity of [facility] 2019-08-28 2019-08-28 Outpatient R MURRAY, [facility] [id number] Univers 11:00:00 11:00:00 SENDIL ity of [facility] 2019-08-23 2019-08-23 Urgent Provider, Ang Urgent [facility] 1.2.840.114 [id number] Univers 15:07:25 16:34:23 Care Tyrese Baca [id number] ity [facility] [id number] Jaison [facility] [phone] Nc luis alberto le [address] [facility] 2019-08-23 2019-08-23 Outpatient R [facility] [id number] Univers 15:40:00 15:40:00 [id number] ity of [facility] 2019-08-23 2019-08-23 Outpatient R [facility] [id number] Univers 15:40:00 15:40:00 ity of [facility] 2019-08-22 2019-08-22 Emergency Corazon, [facility] [id number] Univers 14:16:15 16:10:00 Kvng [facility] [id number] it y of [place] 4.2.7.2.686 [facility] [phone] [address] ([facility]) 2019-08-22 2019-08-22 Nurse Nurse, V[facility] 1.2 .840.114 [id number] Univers 13:26:07 13:41:07 Visit Unknown, Attending SPECIALTY 350.1.13. 10 ity of CARE 4.2.7.2.686 [facility] AT [phone] Nc luis alberto HERNANDEZIsac [address] [place] [address] 2019-08-22 2019-08-22 Outpatient R [facility] [id number] Univers 13:30:00 13:30:00 [id number] ity of [facility] 2019-08-22 2019-08-22 Outpatient R UNKNOWN, [facility] [id number] Univers 13:30:00 13:30:00 ATTENDING ity of [facility] 2019-08-22 2019-08-22 Telephone KEARA Rivera 1.2.840.114 [id number] Univers 00:00:00 00:00:00 Simba CASI [id number] it y of [facility] 4.2.7.2.686 Jaison as [phone] [facility] [address] 2019-08-19 2019-08-19 Emergency MADAN Rivera 1.2.840.114 [id number] Univers 21:26:07 21:27:00 Simba De La Fuente 350.1.13.10 i ty of [place].2.[place] [phone] [facility] [address] 2019-08-19 2019-08-19 Orders Doctor KEARA 1.2.840.114 [id number] Univers 00:00:00 00:00:00 Only Unassigned, CASI 350.1.13.10 ity of [place] [facility] 4.2.7.2.686 Jaison as [phone] [facility] [address] Results Test Description Test Time Test Comments [...] U APPEAR (test code = 3267) . [facility] [id number] 19:37:00 Test Item Value Reference Range Interpretation [...] U APPEAR (test code = 3267) . [facility] URINALYSIS W SPECIFIC [id number] 19:37:00 Test Item Value Reference Range Interpretation [...] 3267) Lab Interpretation (test code = Normal 33491-6) [facility] URINALYSIS W SPECIFIC [id number] 19:37:00 Test Item Value Reference Range Interpretation [...] 3267) Lab Interpretation (test code = Normal 99550-0) [facility] URINALYSIS W SPECIFIC [id number] 19:37:00 Test Item Value Reference Range Interpretation [...] 3267) Lab Interpretation (test code = Normal 01793-5) [facility] GRP A STREP (MOLECULAR)2020-08-28 19:43:00 Test Item Value Reference Range Interpretation Comments POCT GP A STREP (test Negative Negative - code = 00677-3) Negative HENRIK (test code = HENRIK) accurate development and interpretation of all internal controls Lab Interpretation Normal (test code = 22714-6) [facility] URINALYSIS W SPECIFIC [id number] 16:49:00 Test Item Value Reference Range Interpretation [...] 3267) Lab Interpretation (test code = Normal 46292-5) [facility] URINALYSIS W SPECIFIC [id number] 16:02:00 Test Item Value Reference Range Interpretation [...] 3267) Lab Interpretation (test code = Normal 35666-0) [facility] URINALYSIS W SPECIFIC [id number] 19:24:00 Test Item Value Reference Range Interpretation [...] 3267) Lab Interpretation (test code = Normal 38823-8) [facility]CIFIC [id number] 13:57:00 Test Item Value Reference Range Interpretation [...] 3267) Lab Interpretation (test code = Normal 87292-7) [facility] NOW RAPID TESTING)2020-06-04 02:35:01 Test Item Value Reference Range Interpretation Comments SARS-CoV-2 Rapid ID NOW Not Detected Not Detected (test code = 11584-9) HENRIK (test code = HENRIK) ID NOW COVID-19 Assay is an isothermal nucleic acid amplification test intended for the qualitative detection of nucleic acid from SARS-CoV-2 viral RNA in nasopharyngeal (EVISCERATOR) specimens. It is used under Emergency Use [...] indicated. Lab Interpretation Normal (test code = 36747-7) [facility] STREP SCREEN FOR GROUP [id number] 02:30:35 Test Item Value Reference Range Interpretation Comments Streptococcus pyogenes (group A) Negative Negative antigen (test code = 35624-7) Lab Interpretation (test code = Normal 89107-3) [facility] W SPECIFIC [id number] 15:06:00 Test Item Value Reference Range Interpretation [...] POCT U APPEAR (test code = 3267) [facility]2021-[facility]-25 05:46:00 Test Item Value Reference Range Interpretation Comments APPEARANCE (test code = Clear Clear 1462940714) COLOR (test code = Straw Yellow A 1483414026) PH (test code = 4.8-8.0 9845386948) SP GRAVITY (test code = 1.003-1.030 9155784343) GLU U QUAL (test code = Normal Normal 7358304574) BLOOD (test code = Negative Negative 8517217683) KETONES (test code = 20 mg/dL Negative A 0594725302) PROTEIN (test code = Negative Negative 2887-8) UROBILIN (test code = Normal Normal 6280540470) BILIRUBIN (test code = Negative Negative 1786405281) NITRITE (test code = Negative Negative 7946655583) LEUK CHASE (test code = Negative Negative 9697658662) RBC/HPF (test code = See_Comment [Autom ated message] 7901715960) The system eoSemi generated this result transmitted ref erence range: 0 - 3 HP F. The reference range was not used to int erpret this result as normal/abnormal . WBC/HPF (test code = See_Comment [Autom ated message] 2888644391) The system [employer] generated this result transmitted ref erence range: 0 - 5 HP F. The reference range was not used to int erpret this result as normal/abnormal . BACTERIA (test code = Negative Negative 6403130010) MUCOUS (test code = Slight Negative LPF A 2076933929) SQ EPITH (test code = See_Comment [Auto mated message] 0845867251) The system [employer] generated this result transmitted ref erence range: <=2 HPF. The reference range was not used to int erpret this result as normal/abnormal . Lab Interpretation (test Abnormal code = 05840-9) [facility] [id number] 05:44:00 Test Item Value Reference Range Interpretation Comments POCT PREG (test code = 1605) Positive On board controls acceptable with Present C Line (test code = 3574) POCT PREG LOT # (test code = 3575) [id number] POCT PREG TEST DATE (test 2021-11-06 code = 3576) Lab Interpretation (test code = Normal 79689-5) [facility] [id number] 15:37:00 Test Item Value Reference Range Interpretation Comments POCT PREG (test code = 1605) Positive On board controls acceptable with C Yes Line (test code = 3574) POCT PREG LOT # (test code = 3575) POCT PREG TEST DATE (test code = 3576) [facility] [id number] 15:37:00 Test Item Value Reference Range Interpretation Comments POCT PREG (test code = 1605) Positive On board controls acceptable with C Yes Line (test code = 3574) POCT PREG LOT # (test code = 3575) POCT PREG TEST DATE (test code = 3576) [facility] W SPECIFIC [id number] 15:36:00 Test Item Value Reference Range Interpretation [...] POCT U APPEAR (test code = 3267) [facility] W SPECIFIC [id number] 15:36:00 Test Item Value Reference Range Interpretation [...] POCT U APPEAR (test code = 3267) [facility] CenterXR SPINE THORACIC 4 [id number] 18:12:32XR SPINE THORACIC 4 VW HISTORY: Female 34 years 34yo F with chest pain and LUE discomfort ofunknown cause, work-up for possible radiculopathy was recommended by herCardiologist. COMPARISON: None FINDINGS: The vertebral bodies are normal in height and in normal alignment. No significant degenerative changes are present.[facility], Radiant Results [facility] [place] User - 09/21/2019 1:13 PM CDTXR SPINE THORACIC 4 VWHISTORY: Female 34 years 34yo F with chest pain and LUE discomfort ofunknown cause, work-up for possibleradiculopathy was recommended by herCardiologist. COMPARISON: NoneFINDINGS:The vertebral bodies are normal in height and in normal alignment.No significant degenerative changes are present. [facility] CERVICAL SPINE 4 [id number] 16:15:551. ?No acute osseous findings are seen.2. ?Mild curvature abnormalities without degenerative changes.HISTORY:34yo F with chest pain and LUE discomfort of unknown cause, work-upfor possible radiculopathy was recommended by her Director [employer]. TECHNIQUE: Frontal, oblique and lateral views of the cervical spine wereobtained. COMPARISON:None. FINDINGS: There is straightening of the cervical lordosis withpreserved sagittalalignment. The vertebral body heights are preserved. The craniocervicaljunction isunremarkable. No degenerative changes are seen. [facility], Radiant Results [employer] User - 09/21/2019 11:16 AM CDTHISTORY:34yo F with chest pain and LUE discomfort of unknown cause, work- upfor possible radiculopathy was recommended by her Director [employer]. TECHNIQUE: Frontal, oblique and lateral views of the cervical spine wereobtained. COMPARISON:None.FINDINGS:There is straightening of the cervical lordosis with preserved sagittalalignment. The vertebral body heights are preserved. The craniocervicaljunction isunremarkable. No degenerative changes are seen.IMPRESSION1. No acute osseous findings are seen.2. Mild curvature abnormalities without degenerative changes.[facility] COMPREHENSIVE METABOLIC [id number] 10:12:00 Test Item Value Reference Range Interpretation [...] 20-125 N TOTAL (test code = ALKP) [id number] 10:12:00 Test Item Value Reference Range Interpretation [...] may jett y by method. COMPREHENSIVE METABOLIC [id number] 10:11:00 Test Item Value Reference Range Interpretation [...] TOTAL (test IUnit/L 20-125 code = ALKP) [id number] 10:11:00 Test Item Value Reference Range Interpretation [...] results may jett y by method. PROTHROMBIN [id number] 09:59:00 Test Item Value Reference Range Interpretation [...] Infarction (t o prevent recurre nt infarct). [id number] 09:59:00 Test Item Value Reference Range Interpretation [...] TESTS AND APPROPRIATECLIN ICAL EUALUATIONS. CBC W/AUTO [id number] 09:56:00 Test Item Value Reference Range Interpretation [...] code = MDIFF) - XR CHEST 1 [id number] 09:56:00 FAX: Dallas Cain MD [phone] [place]: St: PRE Name: RAGHAVENDRA QUINN [facility] : 1985 Age/S: 34/F [address] [place] [address] Unit#: [id number] Loc: BRIAN Pascal [address] Phys: Dallas Cain MD Acct: [id number] Dis Date: Status: PRE ER PHONE #: [phone] Exam Date: 08/22/2019 1003 FAX #: [phone] Reason: Chest Pain EXAMS: CPT CODE: [id number] XR CHEST 1 V 38988 PROCEDURE: CHEST SINGLE VIEW INDICATION: Chest Pain COMPARISON: There are no previous relevant studies available for correlation. FINDINGS: The lungs are clear. No pleural abnormality. The cardiomediastinalsilhouette is normal for projection. The bony thorax is intact. IMPRESSION: Normal radiograph. SL: [id number] at 0956 Reported and signed by: Samson Sousa M.D. CC: Dallas Cain MD Technologist: RT Maddi(R) Trnscrd Date/Time/By: 08/22/2019 (0956) : By: Krissy Orig Print D/T: S: 08/22/2019 (1003) PAGE 1 Signed Report
[2021-03-05 06:11] LABS: Absolute Lymphocytes (CBC) 4.8 K/uL (0.7-4.9); Hematocrit 42.1 % (36.0-45.0); Lymphocytes % 44.3 % (15.3-44.8); MPV 6.9 fL (7.6-11.3); RBC Red Blood Cell Count 5.49 M/uL (3.86-4.86)
[2021-03-05 06:28] LABS: BUN Blood Urea Nitrogen 17 mg/dL (7-18); Bicarbonate 24 mmol/L (21-32); Glucose Level 100 mg/dL (74-106); Potassium 3.7 mmol/L (3.5-5.1); Sodium Level 138 mmol/L (136-145)
--- NOTE | 2021-03-05 07:32 | RAD REPORT ---
EXAM DESCRIPTION: CT - Chest For Pe Angio - 03/05/2021 7:07 am CLINICAL HISTORY: COVID +,mid scapular pain COMPARISON: Chest For Pe Angio dated 02/05/2020; Chest Pa And Lat (2 Views) dated 03/05/2021 TECHNIQUE: Dynamically enhanced 3 mm thick images of the chest were obtained during administration o f approximately 150mL Isovue 370 IV contrast. Coronal and oblique MIP reconstruction images were gene rated and reviewed. Exam utilizes a protocol to evaluate the pulmonary arterial tree. All CT scans are performed using dose optimization technique as appropriate and may include automated exposure control or mA/KV adjustment according to patient size. FINDINGS: No pulmonary emboli are identified. The aorta as imaged shows no acute or suspicious finding. No pericardial thickening or effusion. No infiltrate or mass in the lung parenchyma. No pleural effusion or pleural thickening. No mediastinal or hilar suspicious masses. No chest wall masses or abnormal axillary lymphadenopathy. IMPRESSION: No pulmonary emboli identified. No other significant or suspicious findings.
--- NOTE | 2021-03-05 08:08 | EDPHYS ---
Physician Documentation [facility] Name: Goyo Solorio Age: 36 yrs Sex: Female : 1985 Arrival Date: 03/05/2021 Time: 05:08 Bed 5 Private MD: ED Physician Simba Duenas HPI: 03/05 05:38 This 36 yrs old Female presents to ER via Ambulatory with complaints of Back rn Pain. 05:38 The patient presents with pain that is acute. The symptoms are located in the thoracic rn area. Onset: The symptoms/episode began/occurred 2 day(s) ago. The pain does not radiate. Associated signs and symptoms: Pertinent positives: none Pertinent negatives: abdominal pain, chest pain, constipation, dysuria, fever, hematuria, incontinence, nausea, numbness, tingling, urinary retention, vomiting, weakness. Modifying factors: The patient symptoms are alleviated by nothing, the patient symptoms are aggravated by nothing. Severity of symptoms: At their worst the symptoms were mild, in the emergency department the symptoms are unchanged. The patient has not experienced similar symptoms in the past. The patient has been recently seen by a physician:. Pt reports diagnosed with COVID 2 days ago, has been feeling ok. Woke up with mid-scapular pain yesterday, not getting better or worse, not worse with inspiration or movement. NO trauma. No hemoptysis. No hx of DVT/PE. States knows someone who had COVID and back pain and ended up being a clot so wants to make sure she is not having a blood clot. No chest or abd pain. Denies sob.. 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 - Social history:: Smoking status: unknown. - Family history:: not pertinent. - Hospitalizations: : No recent hospitalization is reported. ROS: 05:38 Constitutional: Negative for fever, chills, and weight loss, Eyes: Negative for injury, rn pain, redness, and discharge, Neck: Negative for injury, pain, and swelling, Cardiovascular: Negative for chest pain, palpitations, and edema, Respiratory: Negative for shortness of breath, wheezing Abdomen/GI: Negative for abdominal pain, nausea, vomiting, diarrhea, and constipation, Back: + midscapular back pain MS/Extremity: Negative for injury and deformity, Skin: Negative for injury, rash, and discoloration, Neuro: Negative for headache, weakness, numbness, tingling, and seizure. Exam: 05:38 Constitutional: This is a well developed, well nourished patient who is awake, alert, rn seems anxious Head/Face: Normocephalic, atraumatic. Eyes: Periorbital areas with no swelling, redness, or edema. Cardiovascular: Regular rate and rhythm. No pulse deficits. Respiratory: Speaking full sentences, unlabored. No increased work of breathing, no retractions or nasal flaring. Abdomen/GI: Soft, non-tender Skin: Warm, dry with normal turgor. Normal color with no rashes, no lesions, and no evidence of cellulitis. MS/ Extremity: Pulses equal, no cyanosis. Neurovascular intact. Full, normal range of motion. Equal circumference. Neuro: Awake and alert, GCS 15 Vital Signs: 05:23 BP 110 / 77; Pulse 95; Resp 18; Temp 98.4; Pulse Ox 100% ; Weight 79.38 kg; Height 5 al4 ft. 1 in. (154.94 cm); Pain 6/10; 07:00 BP 117 / 83; Pulse 90; Resp 17 S; Pulse Ox 99% ; jg9 07:11 BP 117 / 83; Pulse 57; Resp 16; Pulse Ox 100% ; bp 05:23 Body Mass Index 33.07 (79.38 kg, 154.94 cm) al4 MDM: 05:30 Patient medically screened. rn 06:55 Differential diagnosis: PE, pleurisy, muscular pain, anxiety, COVID, pneumonia. Data rn reviewed: vital signs, nurses notes, lab test result(s), EKG. ED course: Pt first ok with CT PE, when got to CT, refused IV contrast, I spoke with her just now and understands this is only way to rule out PE, she is now agreeable to CT. . 07:06 Transition of care: After a detail discussion of the patient's case, care is rn transferred to Simba Duenas MD. 03/05 05:37 Order name: CBC with Diff; Complete Time: 06:25 rn 03/05 05:37 Order name: Basic Metabolic Panel; Complete Time: 06:32 rn 03/05 05:37 Order name: EKG; Complete Time: 05:38 rn 03/05 05:37 Order name: D-Dimer; Complete Time: 06:25 rn 03/05 05:37 Order name: XRAY Chest Pa And Lat (2 Views) rn 03/05 06:26 Order name: CT Chest For PE Angio; Complete Time: 08:00 rn 03/05 05:37 Order name: IV Start; Complete Time: 05:59 rn 03/05 05:37 Order name: EKG - Nurse/Tech; Complete Time: 05:59 rn Administered Medications: No medications were administered Disposition Summary: 03/05/21 08:07 Discharge Ordered Location: Home kdr Problem: new kdr Symptoms: have improved kdr Condition: Stable kdr Diagnosis - Back Pain - Upper kdr - Musculoskeletal pain -upper mid back kdr Followup: kdr - With: Private Physician - When: 2 - 3 days - Reason: If symptoms return, Further diagnostic work-up, Recheck today's complaints, Continuance of care, Re-evaluation by your physician Discharge Instructions: - Discharge Summary Sheet kdr - Acute Back Pain, Adult kdr Forms: - Medication Reconciliation Form kdr - Thank You Letter kdr Signatures: Dispatcher [employer] Simba Razo MD MD kdr Edu Rucker MD MD rn Marvin Bryan
--- NOTE | 2021-03-05 08:08 | ER ---
Nurse's Notes [facility] Name: Goyo Solorio Age: 36 yrs Sex: Female : 1985 Arrival Date: 03/05/2021 Time: 05:08 Bed 5 Private MD: Diagnosis: Back Pain - Upper;Musculoskeletal pain -upper mid back Presentation: 03/05 05:23 Method Of Arrival: Ambulatory al4 05:23 Chief complaint: Patient states: "I woke up yesterday and again today with my back al4 hurting." Patient states pain is a 6/10. Coronavirus screen: Vaccine status: Patient reports receiving the 1st dose of the Covid vaccine. Client reports previous positive COVID test result. Date of collection: March 03, 2021. Ebola Screen: No symptoms or risks identified at this time. Initial Sepsis Screen: Does the patient meet any 2 criteria? No. Patient's initial sepsis screen is negative. Does the patient have a suspected source of infection? No. Patient's initial sepsis screen is negative. Risk Assessment: Do you want to hurt yourself or someone else? Patient reports no desire to harm self or others. Onset of symptoms was March 04, 2021. 05:23 Acuity: EUGENIO 3 al4 Triage Assessment: 05:35 General: Appears in no apparent distress. comfortable, Behavior is calm, cooperative, al4 appropriate for age. Pain: Complains of pain in back. Neuro: Level of Consciousness is awake, alert, obeys commands, Oriented to person, place, time, situation. Cardiovascular: Capillary refill < 3 seconds Patient's skin is warm and dry. Respiratory: Airway is patent Respiratory effort is even, unlabored, Respiratory pattern is regular, symmetrical. GI:. Musculoskeletal: Circulation, motion, and sensation intact. Range of motion: intact in all extremities. 05:37 General: ERP at bedside assessing patient. 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 - Social history:: Smoking status: unknown. - Family history:: not pertinent. - Hospitalizations: : No recent hospitalization is reported. Screenin:01 Abuse screen: Denies threats or abuse. Denies injuries from another. Nutritional sm5 screening: No deficits noted. Tuberculosis screening: No symptoms or risk factors identified. Fall Risk No fall in past 12 months (0 pts). No secondary diagnosis (0 pts). IV access (20 points). Ambulatory Aid- None/Bed Rest/Nurse Assist (0 pts). Gait- Normal/Bed Rest/Wheelchair (0 pts) Mental Status- Oriented to own ability (0 pts). Total Rome Fall Scale indicates No Risk (0-24 pts). Assessment: 06:00 General: Appears in no apparent distress. Behavior is anxious. Pain: Complains of pain sm5 in back. Neuro: Level of Consciousness is awake, alert, Oriented to person, place, time, situation. Cardiovascular: No deficits noted. Capillary refill < 3 seconds Patient's skin is warm and dry. Rhythm is sinus rhythm. Respiratory: No deficits noted. Airway is patent Trachea midline Respiratory effort is even, unlabored. 07:00 Reassessment: RECD REPORT FROM ANN-MARIE HERRERA. 36YO HF P/W BACK PAIN. PT CURRENTLY IN CT. bp 07:07 Reassessment: PT RETURNED FROM CT. bp Vital Signs: 05:23 BP 110 / 77; Pulse 95; Resp 18; Temp 98.4; Pulse Ox 100% ; Weight 79.38 kg; Height 5 al4 ft. 1 in. (154.94 cm); Pain 6/10; 07:00 BP 117 / 83; Pulse 90; Resp 17 S; Pulse Ox 99% ; jg9 07:11 BP 117 / 83; Pulse 57; Resp 16; Pulse Ox 100% ; bp 05:23 Body Mass Index 33.07 (79.38 kg, 154.94 cm) al4 ED Course: 05:08 Patient arrived in ED. es 05:30 Edu Rucker MD is Attending Physician. rn 05:35 Triage completed. al4 05:35 Ann-Marie Paredes, JAVIER is Primary Nurse. sm5 05:35 Arm band placed on. al4 05:50 Inserted saline lock: 20 gauge in left forearm, using aseptic technique. Blood sm5 collected. 05:59 CBC with Diff Sent. sm5 05:59 Basic Metabolic Panel Sent. sm5 06:00 D-Dimer Sent. sm5 06:01 Patient has correct armband on for positive identification. Bed in low position. Call sm5 light in reach. Side rails up X2. Pulse ox on. NIBP on. 06:23 XRAY Chest Pa And Lat (2 Views) In Process Unspecified. EDMS 07:06 Primary Nurse role handed off by Ann-Marie Paredes, RN bp 07:06 Blake Moran, RN is Primary Nurse. bp 07:07 CT Chest For PE Angio In Process Unspecified. EDMS 07:27 Attending Physician role handed off by Edu Rucker MD kdr 07:27 Simba Duenas MD is Attending Physician. kdr 07:36 No apparent distress. Resting quietly. Awaiting radiology results. Patient requesting jg9 something to drink and fluids. 08:14 No provider procedures requiring assistance completed. jg9 08:14 IV discontinued. jg9 Administered Medications: No medications were administered Outcome: 08:07 Discharge ordered by MD. kdr 08:14 Discharged to home jg9 08:14 Condition: stable 08:14 Condition: good 08:14 Discharge instructions given to patient, Instructed on discharge instructions, follow up and referral plans. Demonstrated understanding of instructions, follow-up care. 08:14 Patient left the ED. jg9 Signatures: Dispatcher [employer] [facility] Simba Duenas MD MD [facility] Trini Valiente Roman, MD MD rn Peltier, Brian, RN RN bp EubanksRandiCarlosis Ann-Marie Edwards, RN RN smQueenie Woorduff RN RN jg9
[2021-03-05 08:26] VITALS: TEMP 98.4
[2021-03-05 08:28] VITALS: BP 117/83
[2021-03-05 08:29] VITALS: O2SAT 100
--- NOTE | 2021-03-05 08:34 | RAD REPORT ---
EXAM DESCRIPTION: RAD - Chest Pa And Lat (2 Views) - 03/05/2021 6:23 am CLINICAL HISTORY: mid scapular pain COMPARISON: Portable March 02 TECHNIQUE: Frontal and lateral views of the chest were obtained. FINDINGS: The lungs are clear. No new or progressive interstitial finding. Heart size is normal and central vasculature is within normal limits. No pleural effusion or pneumothorax seen. No acute [place]off [place] finding noted. No aortic abnormality. IMPRESSION: No acute cardiopulmonary process.
== END 2021-03-05 08:14 | disposition home or self-care (01) ==
LOC: ER 05:04
DX: M79.18 Myalgia, other site (principal)
CPT/HCPCS: 93005; 85025; 80048; 36415; 85379; 71275; 71046; 99284; Q9967

== ENCOUNTER 2021-03-24 19:44 | Emergency (ER) | payer OTHER ==
--- OUTSIDE RECORDS SUMMARY | 2021-03-24 19:50 | XMS REPORT | Continuity of Care Document ---
:[address] [facility] t Address [address] [place] [address] Care Team Providers Name Role Phone Sandra LEES, Mariah Primary Care Physician INDUCTION Attending Clinician Unavailable Sarah LEES Attending Clinician Jv LUCIANO R Attending Clinician Jan ASNCHEZ Attending Clinician Unavailable Owen LUCIANO, N Attending [...] Pob1, Care Clinic Attending Clinician Unavailable Anene COLLECTIONS AND ARCHIVES DIRECTOR Attending Clinician ANENE Attending Clinician Unavailable Oscar GAO Attending Clinician Unavailable Provider, Urgent Care Attending Clinician Unavailable Corzaon COLLECTIONS AND ARCHIVES DIRECTOR, R Attending Clinician Nurse, Urgent Care Attending Clinician Unavailable Unknown Attending Clinician Unavailable UNKNOWN Attending Clinician Unavailable Miguel COLLECTIONS AND ARCHIVES DIRECTOR Attending Clinician Payers Payer Name Policy Type Policy Number Effective Date Expiration Date [facility] [id number] 2019 CHOICE [place] 00:00[place]00 [place] [facility] [id number] 2016 HEALTH 00:00:00 MEDICAID PENDING PENDING 2019 00:00:00 Advance Directives Directive Decision Effective Termination Comments Source Date Date Healthcare Agents on N/A Univ ersity FileNameRelationshipHealthcare [facility] Agent Medical RelationshipCommunicationLinda Jemison Peral[facility]Sist[facility] [phone] (Mobile) Problems Condition Condition Condition Status Onset Resolution Last Treating Co mments Source Name Details Category Date Date Treatment Clinician Date Normal Normal Disease Active 2020-02 Univers labor labor 0-19 ity of 00:: [address] Disease Active 2020-02 Univers (normal (normal 0-19 [place] Med[place] gerri delivery) delivery) Bran ch History of History of Disease Active U nivers anxiety anxiety 2-23 ity of 00:: [address] BMI BMI Disease Active Univers 32.0-32.9, 32.0-32.9, 2-23 it y of adult adult 00:00: [address] Former Former Disease Active Univers smoker smoker 2-23 ity of 00:00: [place] 00 [facility] Branch History of History of Disease Active U nivers 2-23 ity of delivery delivery 00:00: [place] [facility] History of History of Disease Active U nivers 2-23 [place] premature premature [place] rupture of rupture of 00 [place] dical membranes membranes Bran ch (PROM) in (PROM) in previous previous , , currently currently in first in first trimester trimester Vaginal Vaginal Disease Active Univers bleeding bleeding 2-23 ity of in in 00:00: [place] , , 00 Me dical first first Branch trimester trimester Pain Pain Disease Active Univers pelvic pelvic 2-23 ity of 00:00: [place] [facility] Chest Chest Disease Active Univers pain, pain, 8-12 ity of atypical atypical 00:00: [place] [facility] 39 weeks 39 weeks Disease Active Unive rs gestation gestation 3-12 ity of of of 00:00: [place] 00 [facility] Branch Supervisio Supervisio Disease Active U nivers n of high n of high 1-03 ity of risk risk 00:00: [place] 00 [facility] in first in first Branch trimester trimester Multiparit Multiparit Disease Active U nivers y y 8-22 ity of 00:00: [place] [facility] Obesity in Obesity in Disease Active 2017-0 U nivers 8-22 ity of 00:00: [place] [facility] Papanicola Papanicola Disease Active 0 U [...] Allergie 7-15 Clear s 00:00: [place] [facility] No Known DA Active U 2012-02 [facility] Allergie 0-06 Clear s 00:00: [place] [facility] NO KNOWN Drug Active Univers ALLERGIE Class ity of S [facility] Social History Social Habit Start Date Stop Date Quantity Comments Source ASSERTION 2020-03-08 University 00:00:00 [facility] Exposure to Not sure University of SARS-CoV-2 (event) [facility] Alcohol intake 2020-11-25 2020-11-25 Ex-drinker University 00:00:00 00:00:00 (finding) [facility] Education 2020-11-25 2020-11-25 13 University 00:00:00 00:00:00 [facility] Tobacco Comment 2020-04-01 2020-04-01 smokes 4 x Universit y of 00:00:00 00:00:00 socially - [facility] stopped smoking Branch 2 weeks ago Alcohol Comment 2020-04-01 2020-04-01 socially Universit y of 00:00:00 00:00:00 [facility] Branch History SDOH 2020-04-01 2020-04-01 99 University o f Alcohol Frequency 00:00:00 00:00:00 [facility] Branch History SDOH 2020-04-01 2020-04-01 99 University o f Alcohol Std Drinks 00:00:00 00:00:00 [facility] Branch History SDOH 2020-04-01 2020-04-01 99 University o f Alcohol Binge 00:00:00 00:00:00 [facility] Branch Cigarettes smoked 2016-09-28 2016-09-28 Univers ity of current (pack per 00:00:00 00:00:00 [facility] ) - Reported Branch Cigarette 2016-09-28 2016-09-28 University of pack-years 00:00:00 00:00:00 [facility] Tobacco use and 2016-09-28 2016-09-28 Never used Universit y of exposure 00:00:00 00:00:00 [facility] History of tobacco 2016-08-28 Cigarette Smoker University of use 00:00:00 [facility] [birth year] Universit y of 00:00:00 00:00:00 [facility] Smoking Status Start Date Stop Date Source Former smoker 2016-09-28 00:00:00 2016-09-28 00:00:00 Universi ty of [facility] Medications Ordered Filled Start Stop Current Ordering [...] 11:47 INTRA [place] W/EPINEPHRI 00 :04 PROCEDURE, Ut dical NE) 1.5 Starting Branch %-1:200,000 on Tue injection 11/25/20 at 2049, Until 11/26/20 at 0647, Routine, Intra-op hydrOXYzine 2020-0 Yes [id number] 25mg Take 1 Univers 25 mg 7-22 tablet by ity of tablet 00:00: mouth [place] 00 every 6 Medical (six) Branch hours as needed for Itching or Anxiety. hydrOXYzine 0 Yes [id number] 25mg Take 1 Univers 25 mg 7-22 tablet by ity of tablet 00:00: mouth [place] 00 every 6 Medical (six) Branch hours as needed for Itching or Anxiety. hydrOXYzine 0 Yes [id number] 25mg Take 1 Univers 25 mg 7-22 tablet by ity of tablet 00:00: mouth [place] 00 every 6 Medical (six) Branch hours as needed for Itching or Anxiety. hydrOXYzine 0 Yes [id number] 25mg Take 1 Univers 25 mg 7-22 tablet by ity of tablet 00:00: mouth [place] 00 every 6 Medical (six) Branch hours as needed for Itching or Anxiety. hydrOXYzine 0 Yes [id number] 25mg Take 1 Univers 25 mg 7-22 tablet by ity of tablet 00:00: mouth [place] 00 every 6 Medical (six) Branch hours as needed for Itching or Anxiety. hydrOXYzine 0 Yes [id number] 25mg Take 1 Univers 25 mg 7-22 tablet by ity of tablet 00:00: mouth [place] 00 every 6 Medical (six) Branch hours as needed for Itching or Anxiety. hydrOXYzine 2021-0 Yes [id number] 25mg Take 1 Univers 25 mg 7-22 tablet by ity of tablet 00:00: mouth [place] 00 every 6 Medical (six) Branch hours as needed for Itching or Anxiety. hydrOXYzine 2020- No [id number] 25mg Take 1 Univers 25 mg 7-22 09-09 tablet by ity of tablet 00:00: 00:00 mouth [place] 00 :00 every 6 Medical (six) Branch hours as needed for Itching or Anxiety. hydrOXYzine 2020- No [id number] 25mg Take 1 Univers 25 mg 7-22 [...] mg -250 mg combo pack fluticasone Yes [id number] 1{spray Use 1 Univers propionate 4-27 } [place] in ity o f 50 00:00: each [place] mcg/actuati 00 nostril 2 Med ical on nasal (two) Branch spray times daily. fluticasone Yes [id number] 1{spray Use 1 Univers propionate 4-27 } [place] in ity o f 50 00:00: each [place] mcg/actuati 00 nostril 2 Med ical on nasal (two) Branch spray times daily. fluticasone Yes [id number] 1{spray Use 1 Univers propionate 4-27 } [place] in ity o f 50 00:00: each [place] mcg/actuati 00 nostril 2 Med ical on nasal (two) Branch spray times daily. fluticasone Yes [id number] 1{spray Use 1 Univers propionate 4-27 } [place] in ity o f 50 00:00: each [place] mcg/actuati 00 nostril 2 Med ical on nasal (two) Branch spray times daily. fluticasone Yes [id number] 1{spray Use 1 Univers propionate 4-27 } [place] in ity o f 50 00:00: each [place] mcg/actuati 00 nostril 2 Med ical on nasal (two) Branch spray times daily. fluticasone Yes [id number] 1{spray Use 1 Univers propionate 4-27 } [place] in ity o f 50 00:00: each [place] mcg/actuati 00 nostril 2 Med ical on nasal (two) Branch spray times daily. fluticasone Yes [id number] 1{spray Use 1 Univers propionate 4-27 } [place] in ity o f 50 00:00: each [place] mcg/actuati 00 nostril 2 Med ical on nasal (two) Branch spray times daily. fluticasone Yes [id number] 1{spray Use 1 Univers propionate 4-27 } [place] in ity o f 50 00:00: each [place] mcg/actuati 00 nostril 2 Med ical on nasal (two) Branch spray times daily. fluticasone Yes [id number] 1{spray Use 1 Univers propionate 4-27 } [place] in ity o f 50 00:00: each [place] mcg/actuati 00 nostril 2 Med ical on nasal (two) Branch spray times daily. fluticasone Yes [id number] 1{spray Use 1 Univers propionate 4-27 } [place] in ity o f 50 00:00: each [place] mcg/actuati 00 nostril 2 Med ical on nasal (two) Branch spray times daily. fluticasone Yes [id number] 1{spray Use 1 Univers propionate 4-27 } [place] in ity o f 50 00:00: each [place] mcg/actuati 00 nostril 2 Med ical on nasal (two) Branch spray times daily. fluticasone Yes [id number] 1{spray Use 1 Univers propionate 4-27 } [place] in ity o f 50 00:00: each [place] mcg/actuati 00 nostril 2 Med ical on nasal (two) Branch spray times daily. fluticasone 2020- No [id number] 1{spray Use 1 Univers propionate 4-27 07-21 } [place] in ity of 50 00:00: 00:00 each [...] ity of (TYLENOL) 06:30: 05:51 NOW, 1 [place] tablet 975 00 :00 dose, Nel Medi [...] by ity of capsule 15:47: mouth [address] [place] [address] (two) Medical times Branch daily. cephALEXin 2021-0 Yes 500mg Take 500 Un rand 500 mg 2-23 mg by ity of capsule 15:47: mouth 2 [place] [address] (two) Medical times Branch daily. cephALEXin 2021-0 Yes 500mg Take 500 [place] 500 mg 2-23 mg by ity of capsule 15:47: mouth [address] [place] [address] (two) Medical times Branch daily. cephALEXin 2021-0 Yes 500mg Take 500 Un [place] 500 mg 2-23 mg by ity of capsule 15:47: mouth [address] [place] [address] (two) Medical times Branch daily. cephALEXin 2021-0 Yes 500mg Take 500 Un [place] 500 mg 2-23 mg by ity of capsule 15:47: mouth [address] [place] [address] (two) Medical times Branch daily. cephALEXin 2021-0 Yes 500mg Take 500 Un [place] 500 mg 2-23 mg by ity of capsule 15:47: mouth [address] [place] [address] (two) Medical times Branch daily. cephALEXin 2021-0 Yes 500mg Take 500 [place] 500 mg 2-23 mg by ity of capsule 15:47: mouth 2 [place] [address] (two) Medical times Branch daily. cephALEXin 2021-0 Yes 500mg Take 500 [place] 500 mg 2-23 mg by ity of capsule 15:47: mouth 2 [place] [address] (two) Medical times Branch daily. cephALEXin 2021-0 Yes 500mg Take 500 [place] 500 mg 2-23 mg by ity of capsule 15:47: mouth 2 [place] [address] (two) Medical times Branch daily. cephALEXin 2021-0 Yes 500mg Take 500 Un [place] 500 mg 2-23 mg by ity of capsule 15:47: mouth 2 [place] 56 (two) Medical times Branch daily. Yes [id number] 1{packe Take 1 Univers vit 2-23 t} Packet by ity of 33-iron-fol 00:00: mouth [place] ic-dha 00 daily. Medical (SELECT-OB Branch + DHA) 29 mg iron-1 mg -250 mg combo pack Yes [id number] 1{packe Take 1 Univers vit 2-23 t} Packet by ity of 33-iron-fol 00:00: mouth [place] ic-dha 00 daily. Medical (SELECT-OB Branch + DHA) 29 mg iron-1 mg -250 mg combo pack Yes [id number] 1{packe Take 1 Univers vit 2-23 t} Packet by ity of 33-iron-fol 00:00: mouth [place] ic-dha 00 daily. Medical (SELECT-OB Branch + DHA) 29 mg iron-1 mg -250 mg combo pack Yes [id number] 1{packe Take 1 Univers vit 2-23 t} Packet by ity of 33-iron-fol 00:00: mouth [place] ic-dha 00 daily. Medical (SELECT-OB Branch + DHA) 29 mg iron-1 mg -250 mg combo pack Yes [id number] 1{packe Take 1 Univers vit 2-23 t} Packet by ity of 33-iron-fol 00:00: mouth [place] ic-dha 00 daily. Medical (SELECT-OB Branch + DHA) 29 mg iron-1 mg -250 mg combo pack Yes [id number] 1{packe Take 1 Univers vit 2-23 t} Packet by ity of 33-iron-fol 00:00: mouth [place] ic-dha 00 daily. Medical (SELECT-OB Branch + DHA) 29 mg iron-1 mg -250 mg combo pack Yes [id number] 1{packe Take 1 Univers vit 2-23 t} Packet by ity of 33-iron-fol 00:00: mouth [place] ic-dha 00 daily. Medical (SELECT-OB Branch + DHA) 29 mg iron-1 mg -250 mg combo pack Yes [id number] 1{packe Take 1 Univers vit 2-23 t} Packet by ity of 33-iron-fol 00:00: mouth [place] ic-dha 00 daily. Medical (SELECT-OB Branch + DHA) 29 mg iron-1 mg -250 mg combo pack Yes [id number] 1{packe Take 1 Univers vit 2-23 t} Packet by ity of 33-iron-fol 00:00: mouth [place] ic-dha 00 daily. Medical (SELECT-OB Branch + DHA) 29 mg iron-1 mg -250 mg combo pack Yes [id number] 1{packe Take 1 Univers vit 2-23 t} Packet by ity of 33-iron-fol 00:00: mouth [place] ic-dha 00 daily. Medical (SELECT-OB Branch + DHA) 29 mg iron-1 mg -250 mg combo pack Yes [id number] 1{packe Take 1 Univers vit 2-23 t} Packet by ity of 33-iron-fol 00:00: mouth [place] ic-dha 00 daily. Medical (SELECT-OB Branch + DHA) 29 mg iron-1 mg -250 mg combo pack Yes [id number] 1{packe Take 1 Univers vit 2-23 t} Packet by ity of 33-iron-fol 00:00: mouth [place] ic-dha 00 daily. Medical (SELECT-OB Branch + DHA) 29 mg iron-1 mg -250 mg combo pack Yes [id number] 1{packe Take 1 Univers vit 2-23 t} Packet by ity of 33-iron-fol 00:00: mouth [place] ic-dha 00 daily. Medical (SELECT-OB Branch + DHA) 29 mg iron-1 mg -250 mg combo pack Yes [id number] 1{packe Take 1 Univers vit 2-23 t} Packet by ity of 33-iron-fol 00:00: mouth [place] ic-dha 00 daily. Medical (SELECT-OB Branch + DHA) 29 mg iron-1 mg -250 mg combo pack Yes [id number] 1{packe Take 1 Univers vit 2-23 t} Packet by ity of 33-iron-fol 00:00: mouth [place] ic-dha 00 daily. Medical (SELECT-OB Branch + DHA) 29 mg iron-1 mg -250 mg combo pack Yes [id number] 1{packe Take 1 Univers vit 2-23 t} Packet by ity of 33-iron-fol 00:00: mouth [place] ic-dha 00 daily. Medical (SELECT-OB Branch + DHA) 29 mg iron-1 mg -250 mg combo pack Yes [id number] 1{packe Take 1 Univers vit 2-23 t} Packet by ity of 33-iron-fol 00:00: mouth [place] ic-dha 00 daily. Medical (SELECT-OB Branch + DHA) 29 mg iron-1 mg -250 mg combo pack Yes [id number] 1{packe Take 1 Univers vit 2-23 t} Packet by ity of 33-iron-fol 00:00: mouth [place] ic-dha 00 daily. Medical (SELECT-OB Branch + DHA) 29 mg iron-1 mg -250 mg combo pack Yes [id number] 1{packe Take 1 Univers vit 2-23 t} Packet by ity of 33-iron-fol 00:00: mouth [place] ic-dha 00 daily. Medical (SELECT-OB Branch + DHA) 29 mg iron-1 mg -250 mg combo pack Yes [id number] 1{packe Take 1 Univers vit 2-23 t} Packet by ity of 33-iron-fol 00:00: mouth [place] ic-dha 00 daily. Medical (SELECT-OB Branch + DHA) 29 mg iron-1 mg -250 mg combo pack Yes [id number] 1{packe Take 1 Univers vit 2-23 t} Packet by ity of 33-iron-fol 00:00: mouth [place] ic-dha 00 daily. Medical (SELECT-OB Branch + DHA) 29 mg iron-1 mg -250 mg combo pack Yes [id number] 1{packe Take 1 Univers vit 2-23 t} Packet by ity of 33-iron-fol 00:00: mouth [place] ic-dha 00 daily. Medical (SELECT-OB Branch + DHA) 29 mg iron-1 mg -250 mg combo pack Yes [id number] 1{packe Take 1 Univers vit 2-23 t} Packet by ity of 33-iron-fol 00:00: mouth [place] ic-dha 00 daily. Medical (SELECT-OB Branch + DHA) 29 mg iron-1 mg -250 mg combo pack 2020- No [id number] 1{packe Take 1 Univers vit 2-23 07-21 t} Packet by ity of 33-iron-fol 00:00: 00:00 [place] ic-dha 00 :00 daily. Medical (SELECT-OB Branch + DHA) 29 mg iron-1 mg -250 mg combo pack cyclobenzap Yes [id number] 5mg Take 1 Univers rine 5 mg 8-14 4 tablet by ity o f tablet 00:00: mouth (two) Medical times Branch daily as needed for Muscle Spasms. Can cause drowsiness . cyclobenzap 2019- Yes [id number] 5mg Take 1 Univers rine 5 mg 8-14 4 tablet by ity o f tablet 00:00: mouth (two) Medical times Branch daily as needed for Muscle Spasms. Can cause drowsiness . cyclobenzap Yes [id number] 5mg Take 1 Univers rine 5 mg 8-14 4 tablet by ity o f tablet 00:00: mouth (two) Medical times Branch daily as needed for Muscle Spasms. Can cause drowsiness . cyclobenzap Yes [id number] 5mg Take 1 Univers rine 5 mg 8-14 4 tablet by ity o f tablet 00:00: mouth (two) Medical times Branch daily as needed for Muscle Spasms. Can cause drowsiness . cyclobenzap 2019-0 Yes [id number] 5mg Take 1 Univers rine 5 mg 8-14 4 tablet by ity o f tablet 00:00: mouth (two) Medical times Branch daily as needed for Muscle Spasms. Can cause drowsiness . cyclobenzap 2019-0 Yes [id number] 5mg Take 1 Univers rine 5 mg 8-14 4 tablet by ity o f tablet 00:00: mouth 2 (two) Medical times Branch daily as needed for Muscle Spasms. Can cause drowsiness . cyclobenzap 0 2020- No [id number] 5mg Take 1 Univers rine 5 mg 8-14 02-23 4 tablet by ity of tablet 00:00: 00:00 mouth 2 [place] 00 :00 (two) Medical times Branch daily as needed for Muscle Spasms. Can cause drowsiness . cyclobenzap 2020-0 202- No [id number] 5mg Take 1 Univers rine 5 mg 8-14 04-01 4 tablet by ity of tablet 00:00: 00:00 mouth 2 [place] 00 :00 (two) Medical times Branch daily as needed for Muscle Spasms. Can cause drowsiness . gabapentin 2020-0 Yes [id number] 100mg Take 1 Univers 100 mg 8-12 capsule by ity of capsule 00:00: mouth (three) Medical times Branch daily as needed (nerve pain). gabapentin 2020-0 Yes [id number] 100mg Take 1 Univers 100 mg 8-12 capsule by ity of capsule 00:00: mouth (three) Medical times Branch daily as needed (nerve pain). gabapentin 2020-0 Yes [id number] 100mg Take 1 Univers 100 mg 8-12 capsule by ity of capsule 00:00: mouth (three) Medical times Branch daily as needed (nerve pain). gabapentin 2020-0 Yes [id number] 100mg Take 1 Univers 100 mg 8-12 capsule by ity of capsule 00:00: mouth (three) Medical times Branch daily as needed (nerve pain). gabapentin 2020-0 Yes [id number] 100mg Take 1 Univers 100 mg 8-12 capsule by ity of capsule 00:00: mouth (three) Medical times Branch daily as needed (nerve pain). gabapentin 2020-0 Yes [id number] 100mg Take 1 Univers 100 mg 8-12 capsule by ity of capsule 00:00: mouth (three) Medical times Branch daily as needed (nerve pain). gabapentin 2020-0 Yes [id number] 100mg Take 1 Univers 100 mg 8-12 capsule by ity of capsule 00:00: mouth (three) Medical times Branch daily as needed (nerve pain). gabapentin 2020-0 Yes [id number] 100mg Take 1 Univers 100 mg 8-12 capsule by ity of capsule 00:00: mouth (three) Medical times Branch daily as needed (nerve pain). gabapentin 2020-0 Yes [id number] 100mg Take 1 Univers 100 mg 8-12 capsule by ity of capsule 00:00: mouth (three) Medical times Branch daily as needed (nerve pain). gabapentin 2020-0 Yes [id number] 100mg Take 1 Univers 100 mg 8-12 capsule by ity of capsule 00:00: mouth 3 00 (three) Medical times Branch daily as needed (nerve pain). gabapentin 2020-0 Yes [id number] 100mg Take 1 Univers 100 mg 8-12 capsule by ity of capsule 00:00: mouth 3 00 (three) Medical times Branch daily as needed (nerve pain). gabapentin 2019-0 Yes [id number] 100mg Take 1 Univers 100 mg 8-12 capsule by ity of capsule 00:00: mouth 3 00 (three) Medical times Branch daily as needed (nerve pain). gabapentin 2019-0 Yes [id number] 100mg Take 1 Univers 100 mg 8-12 capsule by ity of capsule 00:00: mouth 3 00 (three) Medical times Branch daily as needed (nerve pain). gabapentin 2020- No [id number] 100mg Take 1 Univers 100 mg 8-12 02-23 capsule by ity of capsule 00:00: 00:00 mouth 3 [place] 00 :00 (three) Medical times Branch daily as needed (nerve pain). gabapentin 2020- No [id number] 100mg Take 1 Univers 100 mg 8-12 [...] 7- 08-12 ity of tablet 00:00: 00:00 [place] 00 :00 Medical Branch SERTraline 2019- No [id number] 50mg Take 1 Univers (ZOLOFT) 50 7-16 08-16 tablet by it y of mg tablet 00:00: 04:59 mouth [place] 00 :00 daily for Medical 30 days. Branch SERTraline 2019-0 2020- No [id number] 50mg Take 1 Univers (ZOLOFT) 50 7-16 08-16 tablet by it y of mg tablet 00:00: 04:59 mouth [place] 00 :00 daily for Medical 30 days. Branch SERTraline 2019-0 2020- No [id number] 50mg Take 1 Univers (ZOLOFT) 50 7-16 08-16 tablet by it y of mg tablet 00:00: 04:59 mouth [place] 00 :00 daily for Medical 30 days. Branch SERTraline 2019- 2020- No [id number] 50mg Take 1 Univers (ZOLOFT) 50 7-16 08-12 tablet by it y of mg tablet 00:00: 00:00 mouth [place] 00 :00 daily for Medical 30 days. Branch SERTraline 2019- 2020- No [id number] 50mg Take 1 Univers (ZOLOFT) 50 7-16 [...] DAY Branch NEEDED hydrOXYzine 2019-0 2020- No [id number] 10mg Take 1 Univers 10 mg 7-15 07-26 tablet by ity of tablet 00:00: 04:59 mouth [place] 00 :00 every 6 Medical (six) Branch hours for 10 days. hydrOXYzine 2019-0 2020- No [id number] 10mg Take 1 Univers 10 mg 7-15 07-26 tablet by ity of tablet 00:00: 04:59 mouth [place] 00 :00 every 6 Medical (six) Branch hours for 10 days. hydrOXYzine 2019-0 2020- No [id number] 10mg Take 1 Univers 10 mg 7-15 -26 tablet by ity of tablet 00:00: 04:59 mouth [place] 00 :00 every 6 Medical (six) Branch hours for 10 days. albuterol 2020-0 Yes [id number] 2.5mg Inhale 3 Univers 2.5 mg /3 7-12 mL every 4 ity of mL (0.083 00:00: (four) [place] %) 00 hours. May Medical nebulizer also Branch solution nebulize one extra every 6 hours. albuterol 2020-0 Yes [id number] 2{puff} Inhale 2 Univers 90 7-12 Puffs ity of mcg/actuati 00:00: every 4 [place] as on inhaler 00 (four) Medical hours as Branch needed for Wheezing or Shortness of Breath. albuterol 2020-0 Yes [id number] 2.5mg Inhale 3 Univers 2.5 mg /3 7-12 mL every 4 ity of mL (0.083 00:00: (four) [place] %) 00 hours. May Medical nebulizer also Branch solution nebulize one extra every 6 hours. albuterol 2020-0 Yes [id number] 2{puff} Inhale 2 Univers 90 7-12 Puffs ity of mcg/actuati 00:00: every 4 [place] as on inhaler 00 (four) Medical hours as Branch needed for Wheezing or Shortness of Breath. albuterol 2020-0 Yes [id number] 2.5mg Inhale 3 Univers 2.5 mg /3 7-12 mL every 4 ity of mL (0.083 00:00: (four) [place] %) 00 hours. May Medical nebulizer also Branch solution nebulize one extra every 6 hours. albuterol 2020-0 Yes [id number] 2{puff} Inhale 2 Univers 90 7-12 Puffs ity of mcg/actuati 00:00: every 4 [place] as on inhaler 00 (four) Medical hours as Branch needed for Wheezing or Shortness of Breath. albuterol 2020-0 Yes [id number] 2.5mg Inhale 3 Univers 2.5 mg /3 7-12 mL every 4 ity of mL (0.083 00:00: (four) [place] %) 00 hours. May Medical nebulizer also Branch solution nebulize one extra every 6 hours. albuterol 2020-0 Yes [id number] 2{puff} Inhale 2 Univers 90 7-12 Puffs ity of mcg/actuati 00:00: every 4 [place] as on inhaler 00 (four) Medical hours as Branch needed for Wheezing or Shortness of Breath. albuterol 2020-0 Yes [id number] 2.5mg Inhale 3 Univers 2.5 mg /3 7-12 mL every 4 ity of mL (0.083 00:00: (four) [place] %) 00 hours. May Medical nebulizer also Branch solution nebulize one extra every 6 hours. albuterol 2020-0 Yes [id number] 2{puff} Inhale 2 Univers 90 7-12 Puffs ity of mcg/actuati 00:00: every 4 [place] as on inhaler 00 (four) Medical hours as Branch needed for Wheezing or Shortness of Breath. albuterol 2020-0 Yes [id number] 2.5mg Inhale 3 Univers 2.5 mg /3 7-12 mL every 4 ity of mL (0.083 00:00: (four) [place] %) 00 hours. May Medical nebulizer also Branch solution nebulize one extra every 6 hours. albuterol 2020-0 Yes [id number] 2{puff} Inhale 2 Univers 90 7-12 Puffs ity of mcg/actuati 00:00: every 4 [place] as on inhaler 00 (four) Medical hours as Branch needed for Wheezing or Shortness of Breath. albuterol 2020-0 Yes [id number] 2.5mg Inhale 3 Univers 2.5 mg /3 7-12 mL every 4 ity of mL (0.083 00:00: (four) [place] %) 00 hours. May Medical nebulizer also Branch solution nebulize one extra every 6 hours. albuterol 2020-0 Yes [id number] 2{puff} Inhale 2 Univers 90 7-12 Puffs ity of mcg/actuati 00:00: every 4 [place] as on inhaler 00 (four) Medical hours as Branch needed for Wheezing or Shortness of Breath. albuterol 2019-0 2020- No [id number] 2.5mg Inhale 3 Univers 2.5 mg /3 7-12 08-12 mL every 4 ity of mL (0.083 00:00: 00:00 (four) [place] %) 00 :00 hours. May Medical nebulizer also Branch solution nebulize one extra every 6 hours. albuterol 2019- No [id number] 2{puff} Inhale 2 Univers 90 7-12 08-12 Puffs ity of mcg/actuati 00:00: 00:00 [place] 4 [place] inhaler 00 :00 (four) Medical hours as Branch needed for Wheezing or Shortness of Breath. albuterol 2019- No [id number] 2.5mg Inhale 3 Univers 2.5 mg /3 7-12 08-12 mL every 4 ity of mL (0.083 00:00: 00:00 (four) [place] %) 00 :00 hours. May Medical nebulizer also Branch solution nebulize one extra every 6 hours. albuterol 2019- No [id number] 2{puff} Inhale 2 Univers 90 7-12 08-12 [...] Take with food or milk. 2016-02 Yes [id number] 1{packe Take 1 Univers vit 0-05 t} Packet by ity of 33-iron-fol 00:00: mouth [place] ic-dha 00 daily. Medical ([facility] Branch + DHA) 29 mg iron-1 mg -250 mg combo pack 2016-02 Yes [id number] 1{packe Take 1 Univers vit 0-05 t} Packet by ity of 33-iron-fol 00:00: mouth [place] ic-dha 00 daily. Medical ([facility] + DHA) 29 mg iron-1 mg -250 mg combo pack 2016-02 Yes [id number] 1{packe Take 1 Univers vit 0-05 t} Packet by ity of 33-iron-fol 00:00: mouth [place] ic-dha 00 daily. Medical ([facility] + DHA) 29 mg iron-1 mg -250 mg combo pack 2016-02 Yes [id number] 1{packe Take 1 Univers vit 0-05 t} Packet by ity of 33-iron-fol 00:00: mouth [place] ic-dha 00 daily. Medical ([facility] + DHA) 29 mg iron-1 mg -250 mg combo pack 2016-02 Yes [id number] 1{packe Take 1 Univers vit 0-05 t} Packet by ity of 33-iron-fol 00:00: mouth [place] ic-dha 00 daily. Medical ([facility] + DHA) 29 mg iron-1 mg -250 mg combo pack 2016-02 Yes [id number] 1{packe Take 1 Univers vit 0-05 t} Packet by ity of 33-iron-fol 00:00: mouth [place] ic-dha 00 daily. Medical ([facility] + DHA) 29 mg iron-1 mg -250 mg combo pack 2016-02 Yes [id number] 1{packe Take 1 Univers vit 0-05 t} Packet by ity of 33-iron-fol 00:00: mouth [place] ic-dha 00 daily. Medical ([facility] + DHA) 29 mg iron-1 mg -250 mg combo pack 2016-02 Yes [id number] 1{packe Take 1 Univers vit 0-05 t} Packet by ity of 33-iron-fol 00:00: mouth [place] ic-dha 00 daily. Medical ([facility] + DHA) 29 mg iron-1 mg -250 mg combo pack 2016-02 2020- No [id number] 1{packe Take 1 Univers vit 0-05 08-12 t} Packet by ity of 33-[place]fol 00:[place] :00 daily. Medical ([facility] + DHA) 29 mg iron-1 mg -250 mg combo pack 2016-02 2020- No [id number] 1{packe Take 1 Univers vit 0-05 08-12 t} Packet by ity of 33-iron-fol 00:[place] :00 daily. Medical ([facility] + DHA) 29 mg iron-1 mg -250 mg combo pack Immunizations Ordered Filled Immunization Date Status Comments [facility] e Immunization Name Name TDAP 2020-09-15 Completed University of 00:00:00 [facility] TDAP 2020-09-15 Completed University of 00:00:00 [facility] TDAP 2020-09-15 Completed University of 00:00:00 [facility] TDAP 2020-09-15 Completed University of 00:00:00 [facility] TDAP 2020-09-15 Completed University of 00:00:00 [facility] TDAP 2020-09-15 Completed University of 00:00:00 [facility] TDAP 2020-09-15 Completed University of 00:00:00 [facility] TDAP 2020-09-15 Completed University of 00:00:00 [facility] TDAP 2020-09-15 Completed University of 00:00:00 [facility] TDAP 2020-09-15 Completed University of 00:00:00 [facility] TDAP 2017-02-09 Completed University of 00:00:00 [facility] TDAP 2017-02-09 Completed University of 00:00:00 [facility] TDAP 2017-02-09 Completed University of 00:00:00 [facility] TDAP 2017-02-09 Completed University of 00:00:00 [facility] TDAP 2017-02-09 Completed University of 00:00:00 [facility] TDAP 2017-02-09 Completed University of 00:00:00 [facility] TDAP 2017-02-09 Completed University of 00:00:00 [facility] TDAP 2017-02-09 Completed University of 00:00:00 [facility] TDAP 2017-02-09 Completed [facility] of 00:00:00 [facility] TDAP 2017-02-09 Completed University of 00:00:00 [facility] TDAP 2017-02-09 Completed University of 00:00:00 [facility] TDAP 2017-02-09 Completed University of 00:00:00 [facility] TDAP 2017-02-09 Completed University of 00:00:00 [facility] TDAP 2017-02-09 Completed University of 00:00:00 [facility] TDAP 2017-02-09 Completed University of 00:00:00 [facility] TDAP 2017-02-09 Completed University of 00:00:00 [facility] TDAP 2017-02-09 Completed University of 00:00:00 [facility] TDAP 2017-02-09 Completed University of 00:00:00 [facility] TDAP 2017-02-09 Completed University of 00:00:00 [facility] TDAP 2017-02-09 Completed University of 00:00:00 [facility] TDAP 2017-02-09 Completed University of 00:00:00 [facility] TDAP 2017-02-09 Completed University of 00:00:00 [facility] TDAP 2017-02-09 Completed University of 00:00:00 [facility] TDAP 2017-02-09 Completed University of 00:00:00 [facility] TDAP 2017-02-09 Completed University of 00:00:00 [facility] TDAP 2017-02-09 Completed University of 00:00:00 [facility] TDAP 2017-02-09 Completed University of 00:00:00 [facility] TDAP 2017-02-09 Completed University of 00:00:00 [facility] TDAP 2017-02-09 Completed University of 00:00:00 [facility] TDAP 2017-02-09 Completed University of 00:00:00 [facility] TDAP 2017-02-09 Completed University of 00:00:00 [facility] TDAP 2017-02-09 Completed University of 00:00:00 [facility] TDAP 2017-02-09 Completed University of 00:00:00 [facility] TDAP 2017-02-09 Completed University of 00:00:00 [facility] TDAP 2017-02-09 Completed University of 00:00:00 [facility] TDAP 2017-02-09 Completed University of 00:00:00 [facility] TDAP 2017-02-09 Completed University of 00:00:00 [facility] TDAP 2017-02-09 Completed University of 00:00:00 [facility] TDAP 2017-02-09 Completed University of 00:00:00 [facility] TDAP 2017-02-09 Completed University of 00:00:00 [facility] TDAP 2017-02-09 Completed University of 00:00:00 [facility] TDAP 2017-02-09 Completed University of 00:00:00 [facility] TDAP 2017-02-09 Completed University of 00:00:00 [facility] TDAP 2017-02-09 Completed University of 00:00:00 [facility] TDAP 2017-02-09 Completed University of 00:00:00 [facility] TDAP 2017-02-09 Completed University of 00:00:00 [facility] TDAP 2017-02-09 Completed University of 00:00:00 [facility] TDAP 2017-02-09 Completed University of 00:00:00 [facility] TDAP 2017-02-09 Completed University of 00:00:00 [facility] TDAP 2017-02-09 Completed University of 00:00:00 [facility] TDAP 2017-02-09 Completed University of 00:00:00 [facility] TDAP 2017-02-09 Completed University of 00:00:00 [facility] TDAP 2017-02-09 Completed University of 00:00:00 [facility] TDAP 2017-02-09 Completed University of 00:00:00 [place] [facility] TDAP 2017-02-09 Completed University of 00:00:00 [place] [facility] TDAP 2017-02-09 Completed University of 00:00:00 [facility] TDAP 2017-02-09 Completed University of 00:00:00 [facility] TDAP 2017-02-09 Completed University of 00:00:00 [facility] TDAP 2017-02-09 Completed University of 00:00:00 [facility] TDAP 2007-02-07 Completed University of 00:00:00 [facility] TDAP 2007-02-07 Completed University of 00:00:00 [facility] TDAP 2007-02-07 Completed University of 00:00:00 [facility] TDAP 2007-02-07 Completed University of 00:00:00 [facility] TDAP 2007-02-07 Completed University of 00:00:00 [facility] TDAP 2007-02-07 Completed University of 00:00:00 [facility] TDAP 2007-02-07 Completed University of 00:00:00 [facility] TDAP 2007-02-07 Completed University of 00:00:00 [facility] TDAP 2007-02-07 Completed University of 00:00:00 [facility] TDAP 2007-02-07 Completed University of 00:00:00 [facility] TDAP 2007-02-07 Completed University of 00:00:00 [facility] TDAP 2007-02-07 Completed University of 00:00:00 [facility] TDAP 2007-02-07 Completed University of 00:00:00 [facility] TDAP 2007-02-07 Completed University of 00:00:00 [facility] TDAP 2007-02-07 Completed University of 00:00:00 [facility] TDAP 2007-02-07 Completed University of 00:00:00 [facility] TDAP 2007-02-07 Completed University of 00:00:00 [facility] TDAP 2007-02-07 Completed University of 00:00:00 [facility] TDAP 2007-02-07 Completed University of 00:00:00 [facility] TDAP 2007-02-07 Completed University of 00:00:00 [facility] TDAP 2007-02-07 Completed University of 00:00:00 [facility] TDAP 2007-02-07 Completed University of 00:00:00 [facility] TDAP 2007-02-07 Completed University of 00:00:00 [facility] TDAP 2007-02-07 Completed University of 00:00:00 [facility] TDAP 2007-02-07 Completed University of 00:00:00 [facility] TDAP 2007-02-07 Completed University of 00:00:00 [facility] TDAP 2007-02-07 Completed University of 00:00:00 [facility] TDAP 2007-02-07 Completed University of 00:00:00 [facility] TDAP 2007-02-07 Completed University of 00:00:00 [facility] TDAP 2007-02-07 Completed University of 00:00:00 [facility] TDAP 2007-02-07 Completed University of 00:00:00 [facility] TDAP 2007-02-07 Completed University of 00:00:00 [facility] TDAP 2007-02-07 Completed University of 00:00:00 [facility] TDAP 2007-02-07 Completed University of 00:00:00 [facility] TDAP 2007-02-07 Completed University of 00:00:00 [facility] TDAP 2007-02-07 Completed University of 00:00:00 [facility] TDAP 2007-02-07 Completed University of 00:00:00 [facility] TDAP 2007-02-07 Completed University of 00:00:00 [facility] TDAP 2007-02-07 Completed University of 00:00:00 [facility] TDAP 2007-02-07 Completed University of 00:00:00 [facility] TDAP 2007-02-07 Completed University of 00:00:00 [facility] TDAP 2007-02-07 Completed University of 00:00:00 [facility] TDAP 2007-02-07 Completed University of 00:00:00 [facility] TDAP 2007-02-07 Completed University of 00:00:00 [facility] TDAP 2007-02-07 Completed University of 00:00:00 [facility] TDAP 2007-02-07 Completed University of 00:00:00 [facility] TDAP 2007-02-07 Completed University of 00:00:00 [facility] TDAP 2007-02-07 Completed University of 00:00:00 [facility] TDAP 2007-02-07 Completed University of 00:00:00 [facility] TDAP 2007-02-07 Completed University of 00:00:00 [facility] TDAP 2007-02-07 Completed University of 00:00:00 [facility] TDAP 2007-02-07 Completed University of 00:00:00 [facility] TDAP 2007-02-07 Completed University of 00:00:00 [facility] TDAP 2007-02-07 Completed University of 00:00:00 [facility] TDAP 2007-02-07 Completed University of 00:00:00 [facility] TDAP 2007-02-07 Completed University of 00:00:00 [facility] TDAP 2007-02-07 Completed University of 00:00:00 [facility] TDAP 2007-02-07 Completed University of 00:00:00 [facility] TDAP 2007-02-07 Completed University of 00:00:00 [facility] Vital Signs Vital Name Observation Time Observation Value Comments Source Systolic blood 2020-10-16 19:34:00 104 mm[Hg] Univer sity of pressure [facility] Diastolic blood 2020-10-16 19:34:00 64 mm[Hg] Unive rsity of pressure [facility] Heart rate 2020-10-16 19:34:00 95 /min Universi ty [facility] Body temperature 2020-10-16 19:34:00 37.06 Brigitte [facility] Res[facility] rate 2020-10-16 19:34:00 18 /min Univ [facility] Body height 2020-10-16 19:34:00 154.9 cm Univers ty [facility] Body weight 2020-10-16 19:34:00 81.336 kg [facility] BMI 2020-10-16 19:34:00 33.88 kg/m2 Universi ty [facility] Systolic blood 2020-09-15 19:34:00 107 mm[Hg] Univer sity of pressure [facility] Diastolic blood 2020-09-15 19:34:00 67 mm[Hg] Unive rsity of pressure [facility] Heart rate 2020-09-15 19:34:00 98 /min Universi ty [facility] Body temperature 2020-09-15 19:34:00 37.17 Brigitte [facility] Respiratory rate 2020-09-15 19:34:00 16 /min [facility] Body height 2020-09-15 19:34:00 154.9 cm Universi ty [facility] Body weight 2020-09-15 19:34:00 80.922 kg Universi ty [facility] BMI 2020-09-15 19:34:00 33.71 kg/m2 Universi ty [facility] [place] [facility] Systolic blood 2020-08-28 19:23:00 109 mm[Hg] Univer sity of pressure [facility] Diastolic blood 2020-08-28 19:23:00 70 mm[Hg] Unive rsity of pressure [facility] Heart rate 2020-08-28 19:23:00 107 /min Universi ty [facility] [place] [facility] Body temperature 2020-08-28 19:23:00 36.94 Brigitte Univ ersity of [place] [facility] Respiratory rate 2020-08-28 19:23:00 18 /min Univ ersity of [place] [facility] Body height 2020-08-28 19:23:00 154.9 cm Universi ty [facility] [place] [facility] Body weight 2020-08-28 19:23:00 79.379 kg Universi ty [facility] [place] [facility] BMI 2020-08-28 19:23:00 33.07 kg/m2 Universi ty of [place] [facility] Oxygen saturation in 2020-08-28 19:23:00 97 /min University of Arterial blood by [place] [employer] [facility] oximetry [facility] Systolic blood 2020-08-28 19:23:00 109 mm[Hg] Univer sity of pressure [facility] Diastolic blood 2020-08-28 19:23:00 70 mm[Hg] Unive rsity of pressure [facility] Heart rate 2020-08-28 19:23:00 107 /min Universi ty of [place] [facility] Body temperature 2020-08-28 19:23:00 36.94 Brigitte Univ ersity of [place] [facility] Respiratory rate 2020-08-28 19:23:00 18 /min Univ ersity of [place] [facility] Body height 2020-08-28 19:23:00 154.9 cm Universi ty [facility] [place] [facility] Body weight 2020-08-28 19:23:00 79.379 kg Universi ty [facility] [place] [facility] BMI 2020-08-28 19:23:00 33.07 kg/m2 Universi ty [facility] [place] [facility] Oxygen saturation in 2020-08-28 19:23:00 97 /min University of Arterial blood by [employer] [facility] Pulse oximetry Branch Systolic blood 2020-08-27 [...] kg/m2 Universi ty [facility] [place] [facility] BMI 2020-07-30 15:52:00 32.79 kg/m2 Universi ty of [place] [facility] Systolic blood 2020-07-30 15:52:00 103 mm[Hg] Univer sity of pressure [place] [facility] Diastolic blood 2020-07-30 15:52:00 69 mm[Hg] Unive rsity of pressure [place] [facility] Heart rate 2020-07-30 15:52:00 89 /min Universi ty [facility] [place] [facility] Body temperature 2020-07-30 15:52:00 37.5 Brigitte Univ ersity of [place] [facility] Respiratory rate 2020-07-30 15:52:00 16 /min Univ ersity of [place] [facility] Body height 2020-07-30 15:52:00 156.2 cm Universi ty [facility] [place] [facility] Body weight 2020-07-30 15:52:00 80.015 kg Universi ty [facility] [place] [facility] Systolic blood 2020-07-01 19:19:00 100 mm[Hg] Univer sity of pressure [facility] Diastolic blood 2020-07-01 19:19:00 62 mm[Hg] Unive rsity of pressure [facility] Heart rate 2020-07-01 19:19:00 79 /min Universi ty [facility] [place] [facility] Body temperature 2020-07-01 19:19:00 37.06 Brigitte Univ ersity of [place] [facility] Respiratory rate 2020-07-01 19:19:00 16 /min Univ ersity of [place] [facility] Body height 2020-07-01 19:19:00 156.2 cm Universi ty [facility] [place] [facility] Body weight 2020-07-01 19:19:00 79.652 kg Universi ty [facility] [place] [facility] BMI 2020-07-01 19:19:00 32.64 kg/m2 Univers[facility] ty [facility] [place] [facility] Systolic blood 2020-06-17 13:54:00 105 mm[Hg] Univer sity of pressure [facility] Diastolic blood 2020-06-17 13:54:00 70 mm[Hg] Unive rsity of pressure [facility] Heart rate 2020-06-17 13:54:00 78 /min Universi ty [facility] [place] [facility] Body temperature 2020-06-17 13:54:00 36.94 Brigitte Univ ersity of [place] [facility] Respiratory rate 2020-06-17 13:54:00 16 /min Univ ersity of [place] [facility] Body height 2020-06-17 13:54:00 152.4 cm Universi ty [facility] [place] [facility] Body weight 2020-06-17 13:54:00 80.468 kg [facility] [place] [facility] BMI 2020-06-17 13:54:00 34.65 kg/m2 [facility] [place] [facility] Systolic blood 2020-06-04 03:00:00 125 mm[Hg] Univer sity of pressure [facility] Diastolic blood 2020-06-04 03:00:00 65 mm[Hg] Unive rsity of pressure [facility] Heart rate 2020-06-04 03:00:00 90 /min Universi ty [facility] [place] [facility] Body temperature 2020-06-04 03:00:00 36.89 Brigitte Univ ersity of [place] [facility] Respiratory rate 2020-06-04 03:00:00 22 /min Univ ersity of [place] [facility] Oxygen saturation in 2020-06-04 03:00:00 100 /min University of Arterial blood by [facility] Pulse oximetry Branch Body weight 2020-06-04 01:18:00 80.74 kg Universi ty [facility] [place] [facility] BMI 2020-06-04 01:18:00 33.63 kg/m2 Univers[facility] ty [facility] [place] [facility] Systolic blood 2020-05-13 15:04:00 103 mm[Hg] Univer sity of pressure [facility] Diastolic blood 2020-05-13 15:04:00 72 mm[Hg] Unive rsity of pressure [facility] Heart rate 2020-05-13 15:04:00 87 /min Universi ty [facility] [place] [facility] Body temperature 2020-05-13 15:04:00 36.83 Brigitte Univ ersity of [place] [facility] Respiratory rate 2020-05-13 15:04:00 16 /min Univ ersity of [place] [facility] Body height 2020-05-13 15:04:00 154.9 cm Universi ty [facility] [place] [facility] Body weight 2020-05-13 15:04:00 80.372 kg [facility]i ty [facility] [place] [facility] BMI 2020-05-13 15:04:00 33.48 kg/m2 [facility] ty [facility] [place] [facility] Systolic blood 2020-04-03 07:04:39 114 mm[Hg] Univer sity of pressure [facility] Diastolic blood 2020-04-03 07:04:39 77 mm[Hg] Unive rsity of pressure [facility] Heart rate 2020-04-03 07:04:39 94 /min Universi ty [facility] [place] [facility] Respiratory rate 2020-04-03 07:04:39 15 /min Univ ersity of [place] [facility] Oxygen saturation in 2020-04-03 07:04:39 100 /min University of Arterial blood by [facility] Pulse oximetry Branch Body temperature 2020-04-03 05:13:00 36.61 Brigitte Univ ersity of [place] [facility] Body height 2020-04-03 05:13:00 154.9 cm Universi ty [facility] [place] [facility] Body weight 2020-04-03 05:13:00 83.915 kg [facility] [place] [facility] BMI 2020-04-03 05:13:00 34.96 kg/m2 [facility] [place] [facility] Systolic blood 2020-04-01 15:34:00 117 mm[Hg] Univer sity of pressure [facility] Diastolic blood 2020-04-01 15:34:00 81 mm[Hg] Unive rsity of pressure [facility] Heart rate 2020-04-01 15:34:00 101 /min Universi ty [facility] [place] [facility] Body temperature 2020-04-01 15:34:00 36.61 Brigitte Univ ersity of [place] [facility] Respiratory rate 2020-04-01 15:34:00 16 /min Univ ersity of [place] [facility] Body height 2020-04-01 15:34:00 152.4 cm [facility]i ty [facility] [place] [facility] Body weight 2020-04-01 15:34:00 83.093 kg [facility] [place] [facility] BMI 2020-04-01 15:34:00 35.78 kg/m2 [facility] [place] [facility] Systolic blood 2019-09-14 18:04:00 122 mm[Hg] Univer sity of pressure [facility] Diastolic blood 2019-09-14 18:04:00 81 mm[Hg] Unive rsity of pressure [facility] Heart rate 2019-09-14 18:04:00 94 /min Universi ty [facility] Body temperature 2019-09-14 18:04:00 37.11 Brigitte Univ ersity of [place] [facility] Respiratory rate 2019-09-14 18:04:00 18 /min Univ ersity of [place] [facility] Body height 2019-09-14 18:04:00 152.4 cm [facility]i ty [facility] Body weight 2019-09-14 18:04:00 81.647 kg [facility] [place] [facility] BMI 2019-09-14 18:04:00 35.15 kg/m2 [facility] [place] [facility] Oxygen saturation in 2019-09-14 18:04:00 97 /min University Arterial blood by [facility] Pulse oximetry Branch Systolic blood 2019-08-23 20:22:00 110 mm[Hg] Univer sity of pressure [facility] Diastolic blood 2019-08-23 20:22:00 82 mm[Hg] Unive rsity of pressure [place] [facility] Heart rate 2019-08-23 20:22:00 106 /min Universi ty [facility] Body temperature 2019-08-23 20:22:00 37 Brigitte Univ ersity of [place] [facility] Respiratory rate 2019-08-23 20:22:00 18 /min Univ ersity of [facility] Body height 2019-08-23 20:22:00 152.4 cm [facility] Body weight 2019-08-23 20:22:00 81.92 kg [facility] BMI 2019-08-23 20:22:00 35.27 kg/m2 [facility] ty [facility] [place] [facility] Oxygen saturation in 2019-08-23 20:22:00 96 /min University of Arterial blood by [facility] Pulse oximetry Branch Systolic blood 2019-08-22 19:15:00 112 mm[Hg] Univer sity of pressure [facility] Diastolic blood 2019-08-22 19:15:00 93 mm[Hg] Unive rsity of pressure [facility] Heart rate 2019-08-22 19:14:00 97 /min [facility] Body temperature 2019-08-22 19:14:00 36.44 Brigitte [facility] Respiratory rate 2019-08-22 19:14:00 16 /min [facility] Body weight 2019-08-22 19:14:00 81.647 kg [facility] BMI 2019-08-22 19:14:00 34.01 kg/m2 [facility] Oxygen saturation in 2019-08-22 19:14:00 99 /min University of Arterial blood by [facility] Pulse oximetry Branch Systolic blood 2019-08-22 18:32:00 110 mm[Hg] Univer sity of pressure [facility] Diastolic blood 2019-08-22 18:32:00 73 mm[Hg] Unive rsity of pressure [facility] Heart rate 2019-08-22 18:32:00 98 /min [facility] Body temperature 2019-08-22 18:32:00 37.17 Brigitte [facility] Respiratory rate 2019-08-22 18:32:00 16 /min [facility] Body height 2019-08-22 18:32:00 154.9 cm Universi ty of [facility] Body weight 2019-08-22 18:32:00 82.464 kg Universi ty of [facility] BMI 2019-08-22 18:32:00 34.35 kg/m2 Universi ty [facility] Oxygen saturation in 2019-08-22 18:32:00 100 /min University of Arterial blood by [facility] Pulse oximetry Branch Systolic blood 2019-08-20 01:55:00 117 mm[Hg] Univer sity of pressure [facility] Diastolic blood 2019-08-20 01:55:00 88 mm[Hg] [facility] 2019-08-20 01:55:00 86 /min Universi ty of [facility] Body temperature 2019-08-20 01:55:[address] [facility] Respiratory rate 2019-08-20 01:55:00 22 /min [facility] Body height 2019-08-20 01:55:00 152.4 cm Universi ty [facility] Body weight 2019-08-20 01:55:00 83.462 kg Universi ty [facility] BMI 2019-08-20 01:55:00 35.94 kg/m2 Universi ty [facility] Oxygen saturation in 2019-08-20 01:55:00 99 /min Colon of Arterial blood by [facility] Pulse oximetry Branch Procedures Procedure Date / Time Performing Clinician Source Performed CENTRAL NEURAXIAL BLOCK 2020-11-26 02:06:[address] [facility] POCT URINALYSIS 2020-10-16 19:37:00 Dany Carias [facility] STERILIZATION CONSENT 2020-10-16 05:01:00 Doctor Unassigned, No [facility] FORM Name [facility] TDAP VACCINE, >11 YRS, 2020-09-15 19:37:56 [facility] 2020-09-15 19:36:00 Dany Carias [facility] XR CHEST 2 VW 2020-08-28 21:03:53 [facility] POCT GRP A STREP 2020-08-28 19:43:00 Vipul [facility] (MOLECULAR) [facility] POCT URINALYSIS 2020-08-27 16:49:00 Dany Carias [facility] ASSIGNMENT OF BENEFITS 2020-08-27 15:01:02 Doctor Unassigned, No [facility] POCT URINALYSIS 2020-07-30 16:02:00 Dany Carias [facility] POCT URINALYSIS 2020-07-01 19:24:00 Dany Carias [facility] POCT URINALYSIS 2020-06-17 13:56:00 Dany Carias [facility] RAPID STREP SCREEN FOR 2020-06-04 02:00:00 Julio Da Silva [facility] GROUP A [facility] COVID-19 (ID NOW RAPID 2020-06-04 02:00:00 Julio Da Silva [facility] TESTING) [facility] POCT URINALYSIS 2020-05-13 15:06:00 Dany Carias [facility] POCT TEST 2020-04-03 05:44:00 Yoshi Esparza [facility] URINALYSIS 2020-04-03 05:30:00 Yoshi Esparza [facility] POCT TEST 2020-04-01 15:37:00 Dany Carias [facility] POCT URINALYSIS 2020-04-01 15:36:00 Dany Carias [facility] ASSIGNMENT OF BENEFITS 2020-04-01 15:15:16 Doctor Unassigned, No [facility] XR SPINE THORACIC 4 2019-09-21 17:31:22 [facility] 4 2019-09-21 17:31:22 [facility]ful [facility] CERVICAL SPINE 4 2019-09-21 16:12:52 Yoseph Thakkar A U [facility] XR CERVICAL SPINE 4 VW 2019-09-21 16:12:52 Yoseph Thakkar U [facility] ASSIGNMENT OF BENEFITS 2019-09-20 14:56:33 Doctor Unassigned, No [facility] ASSIGNMENT OF BENEFITS 2019-08-20 01:45:49 Doctor Unassigned, No [facility] CONSENT/REFUSAL FOR 2019-08-20 01:44:04 Doctor Unassigned, No [facility] DIAGNOSIS AND TREATMENT [facility] Encounters Start End Encounter Admission Attending Care Care Encounter Source Date/Time Date/Time Type Type Clinicians Facility Department ID 2020-12-09 Emergency [facility] [id number] Univers 07:57:56 ity of [facility] 2020-12-07 Emergency [facility] [id number] Univers 15:42:49 ity of [facility] 2020-12-07 Emergency [facility] [id number] Univers 01:14:36 ity of [facility] 2020-12-05 Emergency [facility] [id number] Univers 06:56:18 ity of [facility] 2020-12-05 Emergency [facility] [id number] Univers [facility]-08-22 Inpatient HCACL MALACHI [id number] [facility] 08:59:00 [id number] [facility] 2020-11-26 2020-11-26 Outpatient INDUCTION, [facility] [id number] Univers 08:00:00 08:00:00 KEARA [id number] ity [facility] 2020-11-25 2020-11-26 [facility] 1.2.840.114 [id number] Univers 20:45:00 00:47:00 Event Carine De La Fuente 350.1.13.10 i ty of Lorenza 4.2.7.2.686 [facility] [id number] [place] [address] Branch 2020-11-24 2020-11-24 Refalesha [facility] 1.2.840.114 [id number] Univers 00:00:00 00:00:00 Dany Banks CHRISTIAN SCIENCE READER 350.1.13.10 ity of [facility] 4.2.7.2.686 Jaison as MATERNAL [phone] [facility] & [address] 2020-11-20 2020-11-20 Outpatient Jocelyn SANCHEZ [facility] [id number] Univers 10:15:00 10:15:00 NORA [id number] [facility] 2020-11-20 2020-11-20 [facility] [id number] Univers 10:15:00 10:15:00 NORA [facility] 2020-11-17 2020-11-17 Telephone [facility] 1.2.840.114 [id number] Univers 00:00:00 00:00:00 Nora Montoya CHRISTIAN SCIENCE READER 350.1.13.10 it y of REGIONAL 4.2.7.2.686 Jaison as MATERNAL [phone] [facility] & [address] 2020-11-10 2020-11-10 Outpatient Jocelyn SANCHEZ [facility] [id number] Univers 10:30:00 10:30:00 NORA [id number] [facility] 2020-11-10 2020-11-10 [facility] [id number] Univers 10:30:00 10:30:00 NORA [facility] 2020-10-30 2020-10-30 [facility] [id number] Univers 12:45:00 12:45:00 NORA [id number] [facility] 2020-10-30 2020-10-30 [facility] [id number] Univers 12:45:00 12:45:00 NORA [facility] 2020-10-16 2020-10-16 Routine [facility] 1.2.279.455 [id number] Univers 14:23:36 15:09:33 Nora Montoya CHRISTIAN SCIENCE READER 350.1.13.10 i ty of Visit REGIONAL 4.2.7.2.686 Jaison as MATERNAL [phone] [facility] & [address] 2020-10-16 2020-10-16 [facility] [id number] Univers 13:00:00 13:00:00 NORA [id number] [facility] 2020-10-16 2020-10-16 Outpatient Jocelyn SANCHEZ [facility] [id number] Univers 13:00:00 13:00:00 NORA isac [facility] 2020-10-16 2020-10-16 Orders Doctor KEARA 1.2.840.114 [id number] Univers 00:00:00 00:00:00 Only Unassigned, CASI 350.1.13.[address] [facility] 4.2.7.2.686 Jaison as [phone] [address] 2020-10-15 2020-10-15 Outpatient Jocelyn CARISA [facility] [id number] Univers 09:45:00 09:45:00 DANY [id number] ity o [facility] 2020-10-15 2020-10-15 Outpatient Jocelyn CARIAS [facility] [id number] Univers 09:45:00 09:45:00 DANY isac o [facility] 2020-10-07 2020-10-07 Outpatient Jocelyn SANCHEZ [facility] [id number] Univers 08:00:00 08:00:00 NORA [id number] [facility] 2020-10-07 2020-10-07 [facility] [id number] Univers 08:00:00 08:00:00 NORA isac [facility] 2020-09-30 2020-09-30 Outpatient Jocelyn CARIAS [facility] [id number] Univers 18:00:00 18:00:00 DANY ity o [facility] 2020-09-30 2020-09-30 Outpatient Jocelyn CARIAS [facility] [id number] Univers 11:45:00 11:45:00 DANY [id number] ity o [facility] 2020-09-30 2020-09-30 Outpatient Jocelyn CARIAS [facility] [id number] Univers 11:45:00 11:45:00 DANY ity o [facility] 2020-09-29 2020-09-29 Outpatient [facility] [id number] Univers 16:45:00 16:45:00 DANY [id number] ity o f [facility] 2020-09-29 2020-09-29 Outpatient R [facility] [id number] Univers 16:45:00 16:45:00 DANY boyery o f [facility] 2020-09-15 2020-09-15 Routine [facility] 1.2.840.114 [id number] Univers 13:58:57 15:37:45 Dany R CHRISTIAN SCIENCE READER 350.1.13.10 ity of Visit REGIONAL 4.2.7.2.686 Jaison as MATERNAL [phone] Med ical & CHILD [address] [place] [address] 2020-09-15 2020-09-15 Outpatient [facility] [id number] Univers 13:15:00 13:15:00 DANY vance o nikia [facility] 2020-09-12 2020-09-12 Nurse Leidy Duran 1.2.840.114 [id number] Univers 00:00:00 00:00:00 Triage CASI 350.1.13.10 it y of HOSPITAL 4.2.7.2.686 Jaison as [phone] [address] 2020-08-29 2020-08-29 Telephone NurseDrake [facility] 1.2.840.114 [id number] Univers 00:00:00 00:00:00 Urgent Care Health 350.1.13.10 ity of Surgical 4.2.7.2.686 Jaison as Specialti [phone] Ut dical [address] [facility] 2020-08-28 2020-08-28 [facility] 1.2.840.114 [id number] 15:21:38 23:59:00 Encounter [place] De [place] 350.1.13.10 [place] 4.2.7.2.686 Dorena [id number] [id number] 2020-08-28 2020-08-28 [facility] 1.2.840.114 [id number] Univers 15:21:38 23:59:00 Encounter [place] De La [place]ente 350.1.13.10 ity of [place]2.7.2.[place] [id number] [facility] [address] [place] [address] 2020-08-28 2020-08-28 Urgent [facility] 1.2.840.114 [id number] 14:13:24 15:23:42 Care [facility] 350.1.13.10 [place] 4.2.7.2.686 Professio [phone] [place] [address] [address] 2020-08-28 2020-08-28 Urgent [place] Matthew [facility] 1.2.840.114 [id number] Univers 14:13:24 15:23:42 Care Maurice Toby [facility] 350.1.13.10 [facility] 4.2.7.2.686 Jaison as Professio [phone] Ut dical [address] Office [facility] 2020-08-28 2020-08-28 Outpatient [facility] [id number] Univers 14:20:00 14:20:00 TOBY [facility] 2020-08-28 2020-08-28 Outpatient R [facility] [id number] Univers 13:00:00 13:00:00 [id number] [facility] 2020-08-27 2020-08-27 Routine [facility] 1.2.840.114 [id number] 10:01:23 11:16:37 Roshunda R CHRISTIAN SCIENCE READER 350.1.13.10 Visit REGIONAL 4.2.7.2.686 MATERNAL [phone] & CHILD [address] [place] [address] 2020-08-27 2020-08-27 Routine [facility] 1.2.840.114 [id number] Univers 10:01:23 11:16:37 Roshunda R CHRISTIAN SCIENCE READER 350.1.13.10 ity of Visit REGIONAL 4.2.7.2.686 Jaison as MATERNAL [phone] Med ical & CHILD [address] [place] [address] 2020-08-27 2020-08-27 [facility] [id number] Univers 09:00:00 09:00:00 ROSHUNDA [id number] ity o f [facility] 2020-08-27 2020-08-27 Outpatient R JV [facility] [id number] Univers 09:00:00 09:00:00 DANY ity o f [facility] 2020-08-27 2020-08-27 Orders Doctor KEARA 1.2.840.114 [id number] 00:00:00 00:00:00 Only Unassigned, CASI 350.1.13.10 [facility] 4.2.7.2.686 [id number] [id number] 2020-08-27 2020-08-27 Orders Doctor KEARA 1.2.840.114 [id number] Univers 00:00:00 00:00:00 Only Unassigned, CASI 350.1.13.10 ity of [facility] 4.2.7.2.686 Jaison as [phone] [facility] 009 Jemison 2020-08-19 2020-08-19 Taxicab Starter 1, [facility] UNIVERSIT 1.2.840.11 [id number] 14:50:51 15:35:51 Visit [facility] Room Y HEALTH 350.1.13.10 CLINICS 4.2.7.2.686 [id number] [facility] 2020-08-19 2020-08-19 Taxicab Starter 1, [facility] Room UNIVERSIT 1 .2.840.114 [id number] Univers 14:50:51 15:35:51 Visit Arcelia Lucasjuanyemile, Daniel Y HEALTH 350.1 .13.10 ity of CLINICS 4.2.7.2.[place] [id number] [facility] [address] 2020-08-19 2020-08-19 Outpatient P [facility] [id number] Univers 14:15:00 14:15:00 [id number] ity [facility] 2020-08-19 2020-08-19 Outpatient P [facility] [id number] Univers 14:15:00 14:15:00 ity [facility] 2020-08-11 2020-08-11 Outpatient R [facility] [id number] Univers 08:45:00 08:45:00 [id number] ity [facility] 2020-08-112020-08-11 Outpatient P [facility] [id number] Univers 08:45:00 08:45:00 ity of [facility] 2020-08-06 2020-08-06 Nurse KEARA Jiménez [id number] [id number] 00:00:00 00:00:00 Triage Mike CASI 350.1.13.10 HOSPITAL 4.2.7.2.686 [id number] [facility] 2020-08-06 2020-08-06 KEARA Moyer 1.2.163.703 [id number] Univers 00:00:00 00:00:00 Triage Mike CASI 350.1.13.10 it y of [facility] 4.2.7.2.686 Jaison as [id number] [address] 2020-08-06 2020-08-06 [place] Jv [facility] 1.2.413.210 [id number] Univers 00:00:00 00:00:00 Rosbenjaminnda R CHRISTIAN SCIENCE READER 350.1.13.10 ity of REGIONAL 4.2.7.2.686 Jaison as MATERNAL [phone] Med ical & CHILD [address] [place] [address] 2020-07-30 2020-07-30 Routine [facility] 1.2.840.114 [id number] Univers 10:22:14 10:37:14 Rosbenjaminnda R CHRISTIAN SCIENCE READER 350.1.13.10 ity of Visit [facility] 4.2.7.2.686 Jaison as MATERNAL [phone] [facility] ical & CHILD [address] [place] [address] 2020-07-30 2020-07-30 Outpatient Jocelyn CARIAS [facility] [id number] Univers 10:15:00 10:15:00 ROSHUNDA [id number] ity o f [facility] 2020-07-30 2020-07-30 Outpatient Jocelyn CARIAS [facility] [id number] Univers 10:15:00 10:15:00 ROSHUNDA ity o f [facility] 2020-07-21 2020-07-21 Outpatient Jocelyn CARIAS [facility] [id number] Univers 13:45:00 13:45:00 ROSHUNDA ity o f [facility] 2020-07-21 2020-07-21 Outpatient [facility] [id number] Univers 10:30:00 10:30:00 [id number] ity of [facility] 2020-07-17 2020-07-17 Outpatient R JV, [facility] [id number] Univers 09:00:00 09:00:00 LISANDROA [id number] ity o f [facility] 2020-07-17 2020-07-17 [facility] [id number] Univers 09:00:00 09:00:00 FELICITASNDA ity o f [facility] 2020-07-14 2020-07-14 Taxicab Starter Ultrasound, [facility] 1.2 .840.114 [id number] Univers 09:45:41 11:00:41 Visit Jordan Domingo CHRISTIAN SCIENCE READER 350.1.13.10 ity of REGIONAL 4.2.7.2.686 Jaison as MATERNAL [id number] Med ical & CHILD [address] [facility] 2020-07-14 2020-07-14 Outpatient R [facility] [id number] Univers 10:00:00 10:00:00 [id number] ity of [facility] 2020-07-14 2020-07-14 Outpatient P [facility] [id number] Univers 10:00:00 10:00:00 ity of [facility] 2020-07-14 2020-07-14 Khoi Sanchez [facility] 1.2.914.958 [id number] Univers 00:00:00 00:00:00 Management Nora Montoya CHRISTIAN SCIENCE READER 350.1.13.10 ity of REGIONAL 4.2.7.2.686 Jaison as MATERNAL [id number] [facility] CHILD [address] [place] [address] 2020-07-01 2020-07-01 Routine Jv [facility] 1.2.840.114 [id number] Univers 13:52:00 14:58:28 Roslanaa R CHRISTIAN SCIENCE READER 350.1.13.10 ity of Visit REGIONAL 4.2.7.2.686 Jaison as MATERNAL [phone] [facility] ical & CHILD [address] [place] [address] 2020-07-01 2020-07-01 Outpatient JV [facility] [id number] Univers 13:45:00 13:45:00 ROSBENJAMINNDA [id number] ity o f [facility] 2020-07-01 2020-07-01 Outpatient Jocelyn CARIAS [facility] [id number] Univers 13:45:00 13:45:00 ROSHUNDA ity o [facility] 2020-07-01 2020-07-01 Telephone [facility] 1.2.060.255 [id number] Univers 00:00:00 00:00:00 Rosbenjaminnda R CHRISTIAN SCIENCE READER 350.1.13.10 ity of REGIONAL 4.2.7.2.686 Jaison as MATERNAL [phone] [facility] & CHILD [address] [place] [address] 2020-06-17 2020-06-17 Routine [facility] 1.2.840.114 [id number] Univers 08:48:55 09:25:15 Rosbenjaminnda R CHRISTIAN SCIENCE READER 350.1.13.10 ity of Visit REGIONAL 4.2.7.2.686 Jaison as MATERNAL [phone] [facility] & [address] 2020-06-17 2020-06-17 Outpatient Jocelyn CARIAS [facility] [id number] Univers 08:45:00 08:45:00 FELICITASNDA [id number] ity o [facility] 2020-06-17 2020-06-17 Outpatient Jocelyn CARIAS [facility] [id number] Univers 08:45:00 08:45:00 ROSHUNDA ity o [facility] 2020-06-10 2020-06-10 Outpatient Jocelyn CARIAS [facility] [id number] Univers 15:45:00 15:45:00 ROSHUNDA [id number] ity o [facility] 2020-06-10 2020-06-10 Outpatient Jocelyn CARIAS [facility] [id number] Univers 15:45:00 15:45:00 ROSBENJAMINNDA ity o [facility] 2020-06-03 2020-06-03 Emergency Da Silva, TRAUMA 1.2.104.740 [id number] Univers 20:19:00 22:12:00 [facility] 350.1.13.10 it[place] [id number] [address] 2020-05-13 2020-05-13 [facility] 1.2.840.114 [id number] Univers 09:59:20 10:14:20 Roshunda R CHRISTIAN SCIENCE READER 350.1.13.10 ity of Visit REGIONAL 4.2.7.2.686 Jaison as MATERNAL [id number] [facility] ical & CHILD [address] [place] [address] 2020-05-13 2020-05-13 Outpatient Jocelyn CARIAS [facility] [id number] Univers 10:00:00 10:00:00 FELICITASNDA [id number] ity o [facility] 2020-05-13 2020-05-13 Outpatient [facility] [id number] Univers 10:00:00 10:00:00 ROSBENJAMINNDA ity o [facility] 2020-05-06 2020-05-06 Out[facility] [id number] Univers 11:00:00 11:00:00 FELICITASNDA [id number] itisac o [facility] 2020-05-06 2020-05-06 Outpatient [facility] [id number] Univers 11:00:00 11:00:00 FELICITASNDA rosalind o [facility] 2020-04-29 2020-04-29 Outpatient [facility] [id number] Univers 10:45:00 10:45:00 ROSHUNDA [id number] itisac o [facility] 2020-04-29 2020-04-29 Outpatient [facility] [id number] Univers 10:45:00 10:45:00 ROSHUNDA ity o [facility] 2020-04-29 2020-04-29 Telephone [facility] 1.2.105.756 [id number] Univers 00:00:00 00:00:00 Roshunda R CHRISTIAN SCIENCE READER 350.1.13.10 ity of REGIONAL 4.2.7.2.686 Jaison as MATERNAL [id number] [facility] ical & CHILD [address] [place] [address] 2020-04-22 2020-04-22 Nurse KEARA Garcia 1.2.840.114 [id number] Univers 00:00:00 00:00:00 Triage Lynn MCCALLUMY 350.1.13.10 i ty of [facility] 4.2.7.2.686 Jaison as [id number] [address] 2020-04-09 2020-04-09 Case Jv [facility] 1.2.840.114 [id number] Univers 00:00:00 00:00:00 Management Dany R CHRISTIAN SCIENCE READER 350.1.13.10 ity of [facility] 4.2.7.2.686 Jaison as MATERNAL [id number] [facility] & CHILD [address] [place] [address] 2020-04-08 2020-04-08 Taxicab Starter Ultrasound, Srinivasaelizabeth [facility] 1.2 .840.114 [id number] Univers 11:32:55 12:14:18 Visit Tracey Jamil CHRISTIAN SCIENCE READER 350.1.13.10 ity of [facility] 4.2.7.2.686 Jaison as MATERNAL [id number] [facility] & CHILD [address] [facility] 2020-04-08 2020-04-08 Outpatient R [facility] [id number] Univers 11:30:00 11:30:00 [id number] ity [facility] 2020-04-08 2020-04-08 Outpatient P [facility] [id number] Univers 11:30:00 11:30:00 ity [facility] 2020-04-08 2020-04-08 Jewell Carias [facility] 1.2.840.114 [id number] Univers 00:00:00 00:00:00 Dany R CHRISTIAN SCIENCE READER 350.1.13.10 ity of [facility] 4.2.7.2.686 Jaison as MATERNAL [id number] [facility] & CHILD [address] [place] [address] 2020-04-02 2020-04-03 Emergency Vilma MICHARLINE 1.2.840.114 [id number] Univers 23:15:00 01:12:00 [facility] 350.1.13.10 it y of [facility] 4.2.7.2.686 [place] [facility] [id number] [address] ([facility]) 2020-04-02 2020-04-02 Telephone Jv MADAN 1.2.178.774 [id number] Univers 00:00:00 00:00:00 Roshunda R CHRISTIAN SCIENCE READER 350.1.13.10 ity of REGIONAL 4.2.7.2.686 Jaison as MATERNAL [id number] Med ical & CHILD [address] [place] [address] 2020-04-02 2020-04-02 Telephone Carias [facility] 1.2.572.166 [id number] Univers 00:00:00 00:00:00 Roshunda R CHRISTIAN SCIENCE READER 350.1.13.10 ity of REGIONAL 4.2.7.2.686 Jaison as MATERNAL [phone] [facility] ical & CHILD [address] [place] [address] 2020-04-01 2020-04-01 Initial [facility] [id number] Univers 09:25:04 11:05:29 Roshunda R [employer] [id number] ity of Visit REGIONAL [id number] Jaison as MATERNAL [phone] [facility] ical & [address] 2020-04-01 2020-04-01 Outpatient [facility] [id number] Univers 08:30:00 08:30:00 [id number] [facility] [facility] 2020-04-01 2020-04-01 Outpatient R [facility] [id number] Univers 08:30:00 08:30:00 ity of [facility] 2020-04-01 2020-04-01 Orders Doctor SARAH 1.2.840.114 [id number] Univers 00:00:00 00:00:00 Only Unassigned, CASI 350.1.13.10 ity of [place] [facility] 4.2.7.2.686 Jaison as [phone] [address] 2019-12-18 2019-12-18 Outpatient [facility] [id number] Univers 09:30:00 09:30:00 ity of [facility] 2019-12-18 2019-12-18 Outpatient [facility] [id number] Univers 09:30:00 09:30:00 ity of [facility] 2019-10-29 2019-10-29 [facility] [id number] Univers 10:30:00 10:30:00 WONDIFUL [id number] ity o f [facility] 2019-09-26 2019-09-26 Patient [facility] 1.2.840.114 [id number] Univers 00:00:00 00:00:00 Secure Msg Wondiful [place] 350.1.13.10 [place] [phone] Ut dic[address] 2019-09-21 2019-09-21 [facility] 1.2.822.039 [id number] Univers 11:10:44 23:59:00 Encounter Wondiful A [place] 350.1.13.10 ity of [place] [phone] [address] 2019-09-21 2019-09-21 [facility] [id number] [id number] Univers 11:00:00 11:09:00 Encounter Wondiful A [place] 350.1.13.10 ity of [place] [phone] [address] 2019-09-21 2019-09-21 [facility] 1.2.996.348 [id number] Univers 09:56:26 10:59:00 Encounter Wondiful A [place] 350.1.13.10 ity of [place] [phone] [address] 2019-09-21 2019-09-21 [facility] [id number] Univers 10:00:00 10:00:00 WONDIFUL [id number] ity o f [facility] 2019-09-21 2019-09-21 [facility] [id number] Univers 00:00:00 00:00:00 WONDIFUL ity o f [facility] 2019-09-21 2019-09-21 Case Sandra [facility] 1.2.840.114 [id number] Univers 00:00:00 00:00:00 Management Wondiful A [place] 350.1.13.10 it[place] of [place] [phone] Ut dic[address] 2019-09-21 2019-09-21 Patient Sandra [facility] 1.2.840.114 [id number] Univers 00:00:00 00:00:00 Secure Msg Wondiful A [place] 350.1.13.10 ity of [place] [phone] [address] 2019-09-20 2019-09-20 Laboratory Only, Adc Test [facility] 1.2.840. 114 [id number] Univers 10:01:43 10:16:43 Only Kevan Beaulieu [place] 350.1.13.10 ity of [place] [phone] [address] 2019-09-20 2019-09-20 [employer] St[employer] Naomi, Adc Lab Main [facility] 1.2.8 40.114 [id number] Univers 09:55:41 10:10:41 Visit Yoseph Thakkar A [place] 350.1.13. 10 ity of [place] [phone] [address] 2019-09-20 2019-09-20 Outpatient [facility] [id number]-20 Univers 09:30:00 09:30:00 WONDIFUL [id number] ity o f [facility] 2019-09-20 2019-09-20 Outpatient R [facility] [id number] Univers 00:00:00 00:00:00 WONDIFUL ity o f [facility] 2019-09-20 2019-09-20 Orders Doctor SARAH 1.2.840.114 [id number] Univers 00:00:00 00:00:00 Only Unassigned, CASI 350.1.13.10 ity of [facility] 4.2.7.2.686 Jaison as [phone] [address] 2019-09-19 2019-09-19 [facility] 1.2.840.114 [id number] Univers 13:45:12 15:57:17 ne Visit Wondiful A [place] 350.1.13.10 ity of [place] [phone] [address] 2019-09-19 2019-09-19 Outpatient R [facility] [id number] Univers 09:45:00 09:45:00 WONDIFUL ity o f [facility] 2019-09-19 2019-09-19 [facility] [id number]-20 Univers 08:45:00 08:45:00 WONDIFUL [id number] ity o f [facility] 2019-09-19 2019-09-19 Telephone [facility] 1.2.840.114 [id number] Univers 00:00:00 00:00:00 Wondiful A Health 350.1.13.10 ity of [place] 4.2.7.2.686 Jaison as Professio [phone] [address] Office [facility] 2019-09-14 2019-09-14 Urgent Pob1, Acute Care Clinic [facility] 1. 2.840.114 [id number] Univers 12:46:19 13:54:37 Tyrese Lewis 350.1.13.10 ity of [place] 4.2.7.2.686 [place] as Professio [phone] [address] Office [facility] 2019-09-14 2019-09-14 Outpatient [facility] [id number] Univers 13:00:00 13:00:00 [id number] ity [facility] 2019-09-14 2019-09-14 Outpatient R DELMAR [facility] [id number] Univers 13:00:00 13:00:00 TYRESE ity [facility] 2019-08-28 2019-08-28 Outpatient R MURRAY [facility] [id number] Univers 11:00:00 11:00:00 SENDIL [id number] ity of [facility] 2019-08-28 2019-08-28 Outpatient R M[facility]RAY[facility] [id number] Univers 11:00:00 11:00:00 SENDIL ity of [facility] 2019-08-23 2019-08-23 Urgent Provider, [facility] 1.2.840.114 [id number] Univers 15:07:25 16:34:23 Care Tyrese Baca 350.1.13.10 ity [facility] 4.2.7.2.686 [facility] [phone] [address] 2019-08-23 2019-08-23 Outpatient R [facility] [id number] Univers 15:40:00 15:40:00 [id number] ity of [facility] 2019-08-23 2019-08-23 Outpatient R [facility] [id number] Univers 15:40:00 15:40:00 ity of [facility] 2019-08-22 2019-08-22 Emergency Corazon, [facility] 1.2.267.944 [id number] Univers 14:16:15 16:10:00 Kvng [facility] 350.1.13.10 it y of [place] 4.2.7.2.686 [facility] [phone] [address] ([facility]) 2019-08-22 2019-08-22 Nurse Nurse, [facility] 1.2 .840.114 [id number] Univers 13:26:07 13:41:07 Visit Unknown, Attending SPECIALTY 350.1.13. 10 ity of CARE 4.2.7.2.686 [facility] AT [phone] Ut [address] alberto HERNANDEZIsac [address] [place] [address] 2019-08-22 2019-08-22 Outpatient R [facility] [id number] Univers 13:30:00 13:30:00 [id number] ity of [facility] 2019-08-22 2019-08-22 Outpatient R UNKNOWN, [facility] [id number] Univers 13:30:00 13:30:00 ATTENDING ity of [facility] 2019-08-22 2019-08-22 Telephone KEARA Rivera 1.2.840.114 [id number] Univers 00:00:00 00:00:00 Simba LANCE 350.1.13.10 it y of [facility] 4.2.7.2.686 Jaison as [phone] [facility] [address] 2019-08-19 2019-08-19 Emergency MADAN Rivera 1.2.840.114 [id number] Univers 21:26:07 21:27:00 Simba De La Fuente 350.1.13.10 i ty of [place] [phone] [facility] [address] 2019-08-19 2019-08-19 Orders Doctor KEARA 1.2.840.114 [id number] Univers 00:00:00 00:00:00 Only Unassigned, CASI 350.1.13.10 ity of [place] [facility] 4.2.7.2.686 Jaison as [phone] [facility] [address] Results Test Description Test Time Test Comments Results Result Comments Source SARS-CoV-2 (COVID-19), RT-PCR/TMA 2021-02-25 15:19:39 Test Item Value Reference Range Interpretation Comme nts SARS-CoV-2 INTERPRETATION NEGATIVE SEE NOTE S ARS-CoV-2 RNA NOT (test code = 36014) DETECTED Negative results do not preclude SARS-C oV-2 infection and should notb e used as the sole basis for patient management deci sions. Negativeresults must be combined with clinical o bservations, patient history ,and epidemiological information. Optimum specime n types and timingfor peak viral levels during infectio ns caused by SARS-CoV-2 have notbeen determined. Col lection of multiple specim ens or types ofspecimens may be necessary to detect virus. I mproper specimencollect ion and handling, sequence variab ility under primers/probes, or organism present below t he limit of detection may l ead to falsenegative r esults. Positive and negative pr edictive values oftesting are h ighly dependent on prevalence. False negative testresults are more likely when prevalence is h igh. SOURCE (test code = 61724) NASOPHARYNGEAL Note: Methodology is [employer] Real-Time RT-PCR. The expected r esult or reference range is NEGATIVE (Not Detected). For more information regarding COVID -19 testing to include clinica linformation, methodology det ail, intended use, FDA author ization andrecommended fact sheets for patients or [facility] ltare providers, see [employer] Announcement: S ARS-CoV-2 (COVID-19) by Jan AAT at URL below (note,fact shee ts are provided by method given in report:https:// www.Leftronic/c lesicians/krystal t-communications/ Alternatively, see downloadable PDF fact sheet at:https://www. [employer]/COVID -19-RT-PCR UNLESS OTHERWISE INDIC ATED, ALL TESTING PERFORMED [facility] PATHOLOGY [facility] [place] [address] LABORATORY DIRE CTOR: OCTAVIANO GUZMAN M.D. CLIA NUMBER [id number] [facility] [place] [id number] POCT URINALYSIS W SPECIFIC [id number] 19:37:00 Test Item Value Reference Range Interpretation [...] U APPEAR (test code = 3267) . [facility] URINALYSIS W SPECIFIC [id number] 19:37:00 Test Item Value Reference Range Interpretation [...] U APPEAR (test code = 3267) . [facility] URINALYSIS W SPECIFIC [id number] 19:37:00 Test Item Value Reference Range Interpretation [...] 3267) Lab Interpretation (test code = Normal 94305-8) [facility] URINALYSIS W SPECIFIC [id number] 19:37:00 Test Item Value Reference Range Interpretation [...] 3267) Lab Interpretation (test code = Normal 98034-9) [facility] URINALYSIS W SPECIFIC [id number] 19:37:00 Test Item Value Reference Range Interpretation [...] 3267) Lab Interpretation (test code = Normal 63385-2) [facility] GRP A STREP (MOLECULAR)2020-08-28 19:43:00 Test Item Value Reference Range Interpretation Comments POCT GP A STREP (test Negative Negative - code = 07036-6) Negative HENRIK (test code = HENRIK) accurate development and interpretation of all internal controls Lab Interpretation Normal (test code = 30053-5) [facility] URINALYSIS W SPECIFIC [id number] 16:49:00 Test Item Value Reference Range Interpretation [...] 3267) Lab Interpretation (test code = Normal 16394-0) [facility] URINALYSIS W SPECIFIC [id number] 16:02:00 Test Item Value Reference Range Interpretation [...] 3267) Lab Interpretation (test code = Normal 48186-5) [facility] URINALYSIS W SPECIFIC [id number] 19:24:00 Test Item Value Reference Range Interpretation [...] 3267) Lab Interpretation (test code = Normal 35175-9) [facility] [id number] 13:57:00 Test Item Value Reference Range Interpretation [...] 3267) Lab Interpretation (test code = Normal 03680-3) [facility] NOW RAPID TESTING)2020-06-04 02:35:01 Test Item Value Reference Range Interpretation Comments SARS-CoV-2 Rapid ID NOW Not Detected Not Detected (test code = 67989-2) HENRIK (test code = HENRIK) ID NOW COVID-19 Assay is an isothermal nucleic acid amplification test intended for the qualitative detection of nucleic acid from SARS-CoV-2 viral RNA in nasopharyngeal (WIDE AREA NETWORK ADMINISTRATOR) specimens. It is used under Emergency Use [...] indicated. Lab Interpretation Normal (test code = 48377-6) [facility] STREP SCREEN FOR GROUP [id number] 02:30:35 Test Item Value Reference Range Interpretation Comments Streptococcus pyogenes (group A) Negative Negative antigen (test code = 95313-6) Lab Interpretation (test code = Normal 83099-9) [facility] SPECIFIC [id number] 15:06:00 Test Item Value Reference Range Interpretation [...] POCT U APPEAR (test code = 3267) [facility]21[facility] 05:46:00 Test Item Value Reference Range Interpretation Comments APPEARANCE (test code = Clear Clear 1043476451) COLOR (test code = Straw Yellow A 3026533075) PH (test code = 4.8-8.0 5723440173) SP GRAVITY (test code = 1.003-1.030 7648024896) GLU U QUAL (test code = Normal Normal 6033813779) BLOOD (test code = Negative Negative 1004070263) KETONES (test code = 20 mg/dL Negative A 9395379990) PROTEIN (test code = Negative Negative 2887-8) UROBILIN (test code = Normal Normal 7020714923) BILIRUBIN (test code = Negative Negative 2051682953) NITRITE (test code = Negative Negative 4327647236) LEUK CHASE (test code = Negative Negative 6096235421) RBC/HPF (test code = See_Comment [Autom ated message] 6081193457) The system [employer] generated this result transmitted ref erence range: 0 - 3 HP F. The reference range was not used to int erpret this result as normal/abnormal . WBC/HPF (test code = See_Comment [Autom ated message] 4703898156) The system [employer] generated this result transmitted ref erence range: 0 - 5 HP F. The reference range was not used to int erpret this result as normal/abnormal . BACTERIA (test code = Negative Negative 7365450314) MUCOUS (test code = Slight Negative LPF A 1489794629) SQ EPITH (test code = See_Comment [Auto mated message] 0050607883) The system [employer] generated this result transmitted ref erence range: <=2 HPF. The reference range was not used to int erpret this result as normal/abnormal . Lab Interpretation (test Abnormal code = 02514-7) [facility] [id number] 05:44:00 Test Item Value Reference Range Interpretation Comments POCT PREG (test code = 1605) Positive On board controls acceptable with Present C Line (test code = 3574) POCT PREG LOT # (test code = 3575) [id number] POCT PREG TEST DATE (test 2021-11-06 code = 3576) Lab Interpretation (test code = Normal 25697-8) [facility] [id number] 15:37:00 Test Item Value Reference Range Interpretation Comments POCT PREG (test code = 1605) Positive On board controls acceptable with C Yes Line (test code = 3574) POCT PREG LOT # (test code = 3575) POCT PREG TEST DATE (test code = 3576) [facility] [id number] 15:37:00 Test Item Value Reference Range Interpretation Comments POCT PREG (test code = 1605) Positive On board controls acceptable with C Yes Line (test code = 3574) POCT PREG LOT # (test code = 3575) POCT PREG TEST DATE (test code = 3576) [facility] URINALYSIS W SPECIFIC [id number] 15:36:00 Test Item Value Reference Range Interpretation [...] POCT U APPEAR (test code = 3267) [facility] SPECIFIC [id number] 15:36:00 Test Item Value Reference Range Interpretation [...] POCT U APPEAR (test code = 3267) [facility] 4 [id number] 18:12:32XR SPINE THORACIC 4 VW HISTORY: Female 34 years 34yo F with chest pain and LUE discomfort ofunknown cause, work-up for possible radiculopathy was recommended by herCardiologist. COMPARISON: None FINDINGS: The vertebral bodies are normal in height and in normal alignment. No significant degenerative changes are present.[facility], Radiant Results Inft User - 09/21/2019 1:13 PM CDTXR SPINE THORACIC 4 VWHISTORY: Female 34 years 34yo F with chest pain and LUE discomfort ofunknown cause, work-up for possibleradiculopathy was recommended by herCardiologist. COMPARISON: NoneFINDINGS:The vertebral bodies are normal in height and in normal alignment.No significant degenerative changes are present. [facility] CERV[facility] 4 [id number] 16:15:551. ?No acute osseous findings are seen.2. ?Mild curvature abnormalities without degenerative changes.HISTORY:34yo F with chest pain and LUE discomfort of unknown cause, work-upfor possible radiculopathy was recommended by her [employer] Technician. TECHNIQUE: Frontal, oblique and lateral views of the cervical spine wereobtained. COMPARISON:None. FINDINGS: There is straightening of the cervical lordosis withpreserved sagittalalignment. The vertebral body heights are preserved. The craniocervicaljunction isunremarkable. No degenerative changes are seen. [facility] - 09/21/2019 11:16 AM CDTHISTORY:34yo F with chest pain and LUE discomfort of unknown cause, work- upfor possible radiculopathy was recommended by her [employer] Technician. TECHNIQUE: Frontal, oblique and lateral views of the cervical spine wereobtained. COMPARISON:None.FINDINGS:There is straightening of the cervical lordosis with preserved sagittalalignment. The vertebral body heights are preserved. The craniocervicaljunction isunremarkable. No degenerative changes are seen.IMPRESSION1. No acute osseous findings are seen.2. Mild curvature abnormalities without degenerative changes.[facility] COMPREHENSIVE METABOLIC [id number] 10:12:00 Test Item Value Reference Range Interpretation [...] 20-125 N TOTAL (test code = ALKP) [id number] 10:12:00 Test Item Value Reference Range Interpretation [...] may jett y by method. COMPREHENSIVE METABOLIC [id number] 10:11:00 Test Item Value Reference Range Interpretation [...] TOTAL (test IUnit/L 20-125 code = ALKP) [id number] 10:11:00 Test Item Value Reference Range Interpretation [...] results may jett y by method. PROTHROMBIN [id number] 09:59:00 Test Item Value Reference Range Interpretation [...] Infarction (t o prevent recurre nt infarct). [id number] 09:59:00 Test Item Value Reference Range Interpretation [...] TESTS AND APPROPRIATECLIN ICAL EUALUATIONS. CBC W/AUTO [id number] 09:56:00 Test Item Value Reference Range Interpretation [...] code = MDIFF) - XR CHEST 1 [id number] 09:56:00 FAX: Dallas Cain MD [phone] [place]: St: PRE Name: CHEYENNERAGHAVENDRA SUNIL [facility] : 1985 Age/S: 34/F [address] [place] [address] Unit#: [id number] Loc: [place] [address] Phys: Dallas Cain MD Acct: [id number] Dis Date: Status: PRE ER PHONE #: [phone] Exam Date: 08/22/2019 1003 FAX #: [phone] Reason: Chest Pain EXAMS: CPT CODE: [id number] XR CHEST 1 V 91240 PROCEDURE: CHEST SINGLE VIEW INDICATION: Chest Pain COMPARISON: There are no previous relevant studies available for correlation. FINDINGS: The lungs are clear. No pleural abnormality. The cardiomediastinalsilhouette is normal for projection. The bony thorax is intact. IMPRESSION: Normal radiograph. SL: [id number] at 0956 Reported and signed by: Samson Sousa M.D. CC: Dallas Cain MD Technologist: RT Maddi(R) Trnscrd Date/Time/By: 08/22/2019 (0956) : By: AryKWL Orig Print D/T: S: 08/22/2019 (1003) PAGE 1 Signed Report
[2021-03-24 20:59] LABS: SARS-COV-2 RT PCR NEGATIVE (NEGATIVE)
[2021-03-24] MEDS ORDERED: ACETAMINOPHEN 500 MG TAB ONE (21:10)
--- NOTE | 2021-03-24 22:10 | EDPHYS ---
Physician Documentation [facility] Name: Goyo Solorio Age: 36 yrs Sex: Female : 1985 Arrival Date: 03/24/2021 Time: 19:47 Bed 12 Private MD: ED Physician Mike Veliz HPI: 03/24 20:26 This 36 yrs old Female presents to ER via Ambulatory with complaints of Sore kb Throat, Headache. 20:26 The patient presents with sore throat. The patient describes throat pain as constant. kb Onset: The symptoms/episode began/occurred 2 week(s) ago. Severity of symptoms: At their worst the symptoms were moderate, in the emergency department the symptoms are unchanged. Modifying factors: The symptoms are alleviated by nothing, the symptoms are aggravated by swallowing, Patient's oral intake status: good. Associated signs and symptoms: Pertinent positives: headache, Sore throat. The patient has not experienced similar symptoms in the past. The patient has not recently seen a physician. 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 - Social history:: Smoking status: Patient reports the use of cigarette tobacco products, denies chronic smoking, but will smoke occasionally. ROS: 20:25 Constitutional: Negative for fever, chills, and weight loss. kb 20:25 ENT: Positive for sore throat. 20:25 Neuro: Positive for headache. 20:25 All other systems are negative. Exam: 20:25 Constitutional: This is a well developed, well nourished patient who is awake, alert, kb and in no acute distress. Head/Face: Normocephalic, atraumatic. Cardiovascular: Regular rate and rhythm with a normal S1 and S2. No gallops, murmurs, or rubs. No pulse deficits. Respiratory: Respirations even and unlabored. No increased work of breathing. Talking in full sentences Skin: Warm, dry with normal turgor. Normal color. MS/ Extremity: Pulses equal, no cyanosis. Neurovascular intact. Full, normal range of motion. Neuro: Awake and alert, GCS 15, oriented to person, place, time, and situation. Moves all extremities. Normal gait. Psych: Awake, alert, with orientation to person, place and time. Behavior, mood, and affect are within normal limits. 20:25 ENT: Posterior pharynx: Airway: normal, Tonsils: bilaterally enlarged, with erythema, Uvula: normal, midline, swelling, that is moderate, erythema, that is mild, exudate, is not appreciated. Vital Signs: 19:50 BP 126 / 87; Pulse 88; Resp 18; Temp 97.9; Pulse Ox 100% ; Weight 79.38 kg; Height 5 tw5 ft. 1 in. (154.94 cm); Pain 6/10; 20:18 Temp 99(O); mk 21:00 BP 109 / 77; Pulse 61; Resp 18; Pulse Ox 99% on R/A; mk 22:15 BP 111 / 76; Pulse 64; Resp 18; Pulse Ox 98% on R/A; mk 19:50 Body Mass Index 33.07 (79.38 kg, 154.94 cm) tw5 [place] Coma Score: 21:00 Eye Response: spontaneous(4). Verbal Response: oriented(5). Motor Response: obeys mk commands(6). Total: 15. 22:15 Eye Response: spontaneous(4). Verbal Response: oriented(5). Motor Response: obeys mk commands(6). Total: 15. MDM: 19:55 Patient medically screened. 20:25 Data reviewed: vital signs, nurses notes. Data interpreted: Pulse oximetry: on room air kb is 100 %. Interpretation: normal. 22:05 Counseling: I had a detailed discussion with the patient and/or guardian regarding: the kb historical points, exam findings, and any diagnostic results supporting the discharge/admit diagnosis, lab results, the need for outpatient follow up, a family practitioner, to return to the emergency department if symptoms worsen or persist or if there are any questions or concerns that arise at home. 03/24 19:55 Order name: Strep kb 03/24 19:56 Order name: Group A Streptococcus Rapid Sc; Complete Time: 22:05 EDMS 03/24 19:58 Order name: COVID-19/FLU A+B (Document "Date of Onset" if Symptomatic); Complete Time: kb 21:00 03/24 21:51 Order name: Throat Culture EDMS Administered Medications: 21:08 Drug: Tylenol 1000 mg Route: PO; mk 22:01 Follow up: Response: No adverse reaction Disposition: 03/25 07:07 Co-signature as Attending Physician, Mike Veliz MD I agree with the assessment and nicol plan of care. Disposition Summary: 03/24/21 22:08 Discharge Ordered Location: Home kb Condition: Stable kb Diagnosis - Acute pharyngitis, unspecified kb Followup: kb - With: Emergency Department - When: As needed - Reason: Worsening of condition Followup: kb - With: Private Physician - When: 2 - 3 days - Reason: Recheck today's complaints, Continuance of care, Re-evaluation by your physician Discharge Instructions: - Discharge Summary Sheet kb - Pharyngitis, [id number] kb Forms: - Medication Reconciliation Form kb - Thank You Letter kb - Antibiotic Education kb - Prescription Opioid Use kb Signatures: Dispatcher [employer] EDMS Tess Roberto, SOLID WASTE FACILITY OPERATOR-C SOLID WASTE FACILITY OPERATOR-Mike Da Silva MD MD cha Wood, Tiffany tw5 Nayana Starks, RN RN
--- NOTE | 2021-03-24 22:10 | ER ---
Nurse's Notes [facility] Name: Goyo Solorio Age: 36 yrs Sex: Female : 1985 Arrival Date: 03/24/2021 Time: 19:47 Bed 12 Private MD: Diagnosis: Acute pharyngitis, unspecified Presentation: 03/24 19:50 Chief complaint: Patient states: "I have been having pain for a while, maybe two weeks tw5 already. It is getting worse. It thought it was my tooth on my right side, but now it is on both sides and it feels like it traveling up my face and causing me to have a headache. It is throbbing at moments. I have been taking amoxicillin and ibuprofen. I did have COVID three weeks ago.". Coronavirus screen: Vaccine status: Patient reports being unvaccinated. Ebola Screen: Patient negative for fever greater than or equal to 101.5 degrees Fahrenheit, and additional compatible Ebola Virus Disease symptoms Patient denies exposure to infectious person. Patient denies travel to an Ebola-affected area in the 21 days before illness onset. Initial Sepsis Screen: Does the patient meet any 2 criteria? No. Patient's initial sepsis screen is negative. Does the patient have a suspected source of infection? No. Patient's initial sepsis screen is negative. Risk Assessment: Do you want to hurt yourself or someone else? Patient reports no desire to harm self or others. Onset of symptoms is unknown. 19:50 Method Of Arrival: Ambulatory tw5 19:50 Acuity: EUGENIO 4 tw5 Triage Assessment: 19:54 General: Appears in no apparent distress. Behavior is calm, cooperative, appropriate tw5 for age. Pain: Pain currently is 6 out of 10 on a pain scale. at worst was 8 out of 10 on a pain scale. EENT: Throat has enlarged tonsils bilaterally with gag reflex present. 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 - Social history:: Smoking status: Patient reports the use of cigarette tobacco products, denies chronic smoking, but will smoke occasionally. Screenin:56 Abuse screen: Denies threats or abuse. Denies injuries from another. Nutritional tw5 screening: No deficits noted. Tuberculosis screening: No symptoms or risk factors identified. Fall Risk None identified. Assessment: 20:18 Reassessment: No changes from previously documented assessment. Patient and/or family mk updated on plan of care and expected duration. Pain level reassessed. Patient is alert, oriented x 3, equal unlabored respirations, skin warm/dry/pink. General: Appears comfortable, Behavior is cooperative. Pain: Complains of pain in throat Pain radiates to head Pain Quality of pain is described as aching, Pain began gradually, s/p covid infection Is continuous. Neuro: Level of Consciousness is awake, alert, obeys commands, Oriented to person, place, time, situation, Polishing Wheel Setter are equal bilaterally Moves all extremities. Gait is steady, Speech is normal, Reports headache frontal area, radiating from just below the jaw/throat area. Cardiovascular: Heart tones S1 S2 Capillary refill < 3 seconds in bilateral fingers toes Clubbing of nail beds is absent JVD is absent Patient's skin is warm and dry. Pulses are 3+ in right radial artery, right dorsalis pedis artery, left radial artery and left dorsalis pedis artery Rhythm is sinus rhythm. Respiratory: Airway is patent Trachea midline Respiratory effort is even, unlabored, Respiratory pattern is regular, symmetrical, Breath sounds are clear. GI: No signs and/or symptoms were reported involving the gastrointestinal system. : No signs and/or symptoms were reported regarding the genitourinary system. EENT: Reports pain in right mandible and left mandible. Derm: Skin is intact, is healthy with good turgor, Skin is dry, Skin is pink, warm \\T\\ dry. Skin temperature is warm. Musculoskeletal: Circulation, motion, and sensation intact. Capillary refill < 3 seconds, in bilateral fingers. toes. Range of motion: intact in all extremities. 21:12 Reassessment: No changes from previously documented assessment. Patient and/or family mk updated on plan of care and expected duration. Pain level reassessed. Patient is alert, oriented x 3, equal unlabored respirations, skin warm/dry/pink. 21:13 Pain: Complains of pain in left mandible and right mandible Pain radiates to 'up my mk face' Pain currently is 7 out of 10 on a pain scale. Quality of pain is described as aching, Pain began gradually, Is continuous. 22:14 Reassessment: No changes from previously documented assessment. Patient and/or family mk updated on plan of care and expected duration. Pain level reassessed. Patient is alert, oriented x 3, equal unlabored respirations, skin warm/dry/pink. Patient states feeling better. Vital Signs: 19:50 BP 126 / 87; Pulse 88; Resp 18; Temp 97.9; Pulse Ox 100% ; Weight 79.38 kg; Height 5 tw5 ft. 1 in. (154.94 cm); Pain 6/10; 20:18 Temp 99(O); mk 21:00 BP 109 / 77; Pulse 61; Resp 18; Pulse Ox 99% on R/A; mk 22:15 BP 111 / 76; Pulse 64; Resp 18; Pulse Ox 98% on R/A; mk 19:50 Body Mass Index 33.07 (79.38 kg, 154.94 cm) tw5 [place] Coma Score: 21:00 Eye Response: spontaneous(4). Verbal Response: oriented(5). Motor Response: obeys commands(6). Total: 15. 22:15 Eye Response: spontaneous(4). Verbal Response: oriented(5). Motor Response: obeys commands(6). Total: 15. ED Course: 19:47 Patient arrived in ED. ag3 19:48 [facility]C [facility] kb 19:48 Mike Veliz MD is Attending Physician. kb 19:53 Triage completed. tw5 19:54 Arm band placed on right wrist. tw5 19:59 Nayana Starks, RN is Primary Nurse. mk 20:00 Patient has correct armband on for positive identification. Allergy band placed. Call light in reach. Pulse ox on. NIBP on. 20:17 COVID-19/FLU A+B (Document "Date of Onset" if Symptomatic) Sent. mk 20:17 Group A Streptococcus Rapid Sc Sent. mk 20:17 Strep Sent. mk 22:00 Throat Culture Sent. mk 22:13 No provider procedures requiring assistance completed. Patient did not have IV access mk during this emergency room visit. Administered Medications: 21:08 Drug: Tylenol 1000 mg Route: PO; 22:01 Follow up: Response: No adverse reaction Outcome: : Discharge ordered by MD. landa 22:14 Discharged to home 22:14 Condition: stable 22:14 Discharge instructions given to patient, Instructed on discharge instructions, follow up and referral plans. 22:25 Patient left the ED. Signatures: Tess Roberto, MUSTAPHA-C MANUFACTURING SALES REPRESENTATIVE-CkKinjal Ramirez 3 Keeley Dey 5 Nayana Starks, RN RN mk Corrections: (The following items were deleted from the chart) 21:14 21:12 Reassessment: No changes from previously documented assessment. Patient and/or mk family updated on plan of care and expected duration. Pain level reassessed. Patient is alert, oriented x 3, equal unlabored respirations, skin warm/dry/pink. mk
[2021-03-25 00:12] VITALS: BP 111/76; O2SAT 98
[2021-03-25 00:14] VITALS: TEMP 99
== END 2021-03-24 22:25 | disposition home or self-care (01) ==
LOC: ER 19:44
DX: J02.9 Acute pharyngitis, unspecified (principal); Z20.822 Contact with and (suspected) exposure to COVID-19
CPT/HCPCS: 87070; 87081; 0240U; 99284

== ENCOUNTER 2021-03-29 12:29 | Emergency (ER) | payer OTHER ==
--- OUTSIDE RECORDS SUMMARY | 2021-03-29 12:36 | XMS REPORT | Continuity of Care Document ---
:1985 Author Organization [facility] t Address [address] [place] [address] Care Team Providers Name Role Phone Sandra LEES, Mariah Primary Care Physician Enrique COWAN Attending Clinician Unavailable Ranjith LEES S Attending Clinician Doctor Unassigned, Name Attending Clinician Unavailable Sophia MAYO Attending Clinician Unavailable INDUCTION Attending Clinician Unavailable Sarah LEES Attending Clinician Jv LUCIANO R Attending Clinician Jan SANCHEZ Attending Clinician Unavailable Jan Alcazar Attending Clinician Jocelyn CARIAS Attending Clinician Unavailable Roger HERRERA [...] Pob1, Care Clinic Attending Clinician Unavailable Anene CATTLE FEEDER Attending Clinician ANENE Attending Clinician Unavailable Oscar GAO Attending Clinician Unavailable Provider, Urgent Care Attending Clinician Unavailable Corazon CATTLE FEEDER, R Attending Clinician Nurse, Urgent Care Attending Clinician Unavailable Unknown Attending Clinician Unavailable UNKNOWN Attending Clinician Unavailable Miguel CARVALHOP Attending Clinician Sophia MAYO Admitting Clinician Unavailable Payers Payer Name Policy Type Policy Number Effective Date Expiration Date [facility] [id number] 2019 [facility] MEDICAID 00:00:00 [place] [facility] [id number] 2016 HEALTH 00:00:00 MEDICAID PENDING PENDING 2019 00:00:00 Advance Directives Directive Decision Effective Termination Comments Source Date Date Healthcare Agents on N/A Univ ersity FileNameRelationshipHealthcare [facility] Agent Medical RelationshipCommunication[facility]esS[facility]ling[facility] Care [phone] (Mobile) Problems Condition Condition Condition Status Onset Resolution Last Treating Co mments Source Name Details Category Date Date Treatment Clinician Date Normal Normal Disease Active 2020-02 Univers labor labor 0-19 ity of 00:00: [address] Disease Active 2020-02 Univers (normal (normal 0-19 ity [place] spont[place] 00 Medi gerri delivery) delivery) Bran ch History of History of Disease Active U nivers anxiety anxiety 2-23 ity of 00:00: [place] 00 Medical Branch BMI BMI Disease Active Univers 32.0-32.9, 32.0-32.9, 2-23 it y of adult adult 00:00: [place] [facility] Former Former Disease Active Univers smoker smoker 2-23 ity of 00:: [place] [facility] History of History of Disease Active U nivers 2-23 ity of delivery delivery 00:00: [place] [facility] History of History of Disease Active U nivers 2-23 ity of premature premature 00:00: [place] rupture of rupture of 00 Me dical membranes membranes Bran ch (PROM) in (PROM) in previous previous , , currently currently in first in first trimester trimester Vaginal Vaginal Disease Active Univers bleeding bleeding 2-23 ity of in in 00:: [place] , , 00 Me dical first first Branch trimester trimester Pain Pain Disease Active Univers pelvic pelvic 2-23 ity of 00:: [place] [facility] Chest Chest Disease Active Univers pain, pain, 8-12 ity of atypical atypical 00:00: [place] [facility] Branch 39 weeks 39 weeks Disease Active Unive rs gestation gestation 3-12 ity of of of 00:00: [place] 00 [facility] Branch Supervisio Supervisio Disease Active U nivers n of high n of high 1-03 ity of risk risk 00:00: [place] 00 [facility] in first in first Branch trimester trimester Multiparit Multiparit Disease Active 2016- U nivers y y 8-22 ity of 00:00: [place] [facility] Obesity in Obesity in Disease Active 2017-0 U nivers 8-22 ity of 00:00: [place] [address] Medical Branch Papanicola Papanicola Disease Active 2015-0 U nivers ou smear ou smear 7-24 ity of of cervix of cervix 00:[place] with low with low 00 Medica l 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) Allergies, Adverse Reactions, Alerts Allergy Allergy Status Severity Reaction(s) Onset Inactive Treating Comm ents Source Name Type Date Date Clinician No Known DA Active U 2019- [facility] Allergie 7-15 Clear s 00:00: [place] 00 [facility] No Known DA Active U 2013- [facility] Allergie 0-06 Clear s 00:00: [place] 00 [facility] NO KNOWN Drug Active Univers ALLERGIE Class ity of S [facility] Social History Social Habit Start Date Stop Date Quantity Comments Source ASSERTION 2020-03-08 [facility] 00:00:00 [facility] Exposure to Not sure [facility] SARS-CoV-2 (event) [facility] Alcohol intake 2021-03-27 2021-03-27 Ex-drinker [facility] 00:00:00 00:00:00 (finding) [facility] Education 2020-11-25 2020-11-25 13 [facility] 00:00:00 00:00:00 [facility] Tobacco Comment 2020-04-01 2020-04-01 smokes 4 x Universit y of 00:00:00 00:00:00 socially - [facility] stopped smoking Branch 2 weeks ago Alcohol Comment 2020-04-01 2020-04-01 socially Universit y of 00:00:00 00:00:[address] [facility] Branch History SDOH 2020-04-01 2020-04-01 99 University o f Alcohol Frequency 00:00:00 [facility] 2020-04-01 2020-04-01 99 University o f Alcohol Std Drinks 00:00:00 00:00:00 [facility] History SDOH 2020-04-01 2020-04-01 99 University o f Alcohol Binge 00:00:00 00:00:00 [facility] al Branch Cigarettes smoked 2016-09-28 2016-09-28 Univers ity of current (pack per 00:00:00 00:00:00 [facility] edical ) - Reported Branch Cigarette 2016-09-28 2016-09-28 University of pack-years 00:00:00 00:00:00 [facility] Tobacco use and 2016-09-28 2016-09-28 Never used Universit y of exposure 00:00:00 00:00:00 [facility] History of tobacco 2016-08-28 Cigarette Smoker University of use 00:00:00 [facility] Sex [birth year] Universit y of 00:00:00 00:00:00 [place] [facility] Smoking Status Start Date Stop Date Source Former smoker 2016-09-28 00:00:00 2016-09-28 00:00:00 [facility] Medical Branch Medications Ordered Filled Start Stop Current Ordering Indication Dosage Frequency Signature Comments Components Source Medication Medication Date Date Medication? Clinician (SIG) Name Name amoxicillin Yes [id number] 500mg Take 1 Univers 500 mg 2-18 capsule by ity of capsule 00:00: mouth 3 [place] 00 (three) Medical times Branch daily. ibuprofen Yes [id number] 800mg Take 1 U nivers 800 mg 2-18 tablet by ity of tablet 00:00: mouth [place] 00 every 8 Medical (eight) Branch hours as needed for Pain (scale 4-6) or Temp > 38.5 C. traMADoL Yes [id number] 50mg Take 1 Univers (ULTRAM) 50 2-18 tablet by ity of mg tablet 00:00: mouth [place] 00 every 6 Medical (six) Branch hours as needed for Pain (scale 7-10). Indication s: acute pain traMADoL 2021- No [id number] 50mg Take 1 Univer s (ULTRAM) 50 2-18 02-18 tablet by it y of mg tablet 00:00: 00:00 mouth [place] 00 :00 every 6 Medical (six) Branch hours as needed for Pain (scale 7-10). Indication s: acute pain amoxicillin 2021- No [id number] 500mg Take 1 Univers 500 mg 2-18 02-18 capsule by ity of capsule 00:00: 00:00 mouth 3 [place] 00 :00 (three) Medical times Branch daily. ibuprofen 2- No [id number] 800mg Take 1 Univers 800 mg 2-18 02-18 tablet by ity of tablet 00:00: 00:00 mouth [place] 00 :00 every 8 Medical (eight) Branch hours as needed for Pain (scale 4-6). amoxicillin 2021- No [id number] 500mg Take 1 Univers 500 mg 2-18 02-18 capsule by ity of capsule 00:00: 00:00 mouth 3 [place] 00 :00 (three) Medical times Branch daily. ibuprofen 2021- No [id number] 800mg Take 1 Univers 800 mg 2-18 02-18 tablet by ity of tablet 00:00: 00:00 mouth [place] 00 :00 every 8 Medical (eight) Branch hours as needed for Pain (scale 4-6). traMADoL 2021- No [id number] 50mg Take 1 Univer s (ULTRAM) 50 -18 -18 tablet by it y of mg tablet 00:00: 00:00 mouth [place] 00 :00 every 6 Medical (six) Branch hours as needed for Pain (scale 7-10). Indication s: acute pain amoxicillin 2021- No [id number] 500mg Take 1 Univers 500 mg 2-18 -18 capsule by ity of capsule 00:00: 00:00 mouth 3 [place] 00 :00 (three) Medical times Branch daily. traMADoL 2021- No [id number] 50mg Take 1 Univer s (ULTRAM) 50 18 18 tablet by it y of mg tablet 00:00: 00:00 mouth [place] 00 :00 every 6 Medical (six) Branch hours as needed for Pain (scale 7-10). Indication s: acute pain ibuprofen 2021- No [id number] 800mg Take 1 Univers 800 mg 2-18 -18 tablet by ity of tablet 00:00: 00:00 mouth [place] 00 :00 every 8 Medical (eight) Branch hours as needed for Pain (scale 4-6). docusate 2020-02 Yes [id number] 240mg Take 1 Un rand calcium 240 0-21 capsule by it y of mg capsule 00:00: mouth [place] 00 daily as Medical needed for Branch Constipati on. ferrous 2020-02 Yes [id number] 325mg Take 1 Uni vers sulfate 325 0-21 tablet by ity of mg (65 mg 00:00: mouth 2 [place] iron) 00 (two) Medical tablet times Branch daily. ibuprofen 2020-02 Yes [id number] 600mg Take 1 U nivers 600 mg 0-21 tablet by ity of tablet 00:00: mouth [place] 00 every 6 Medical (six) Branch hours as needed (Pain). Take with food or milk. docusate 2020-02 Yes [id number] 240mg Take 1 Un rand calcium 240 0-21 capsule by it y of mg capsule 00:00: mouth once [place] 00 daily as Medical needed for Branch Constipati on. ferrous 2020-02 Yes [id number] 325mg Take 1 Uni vers sulfate 325 0-21 tablet by ity of mg (65 mg 00:00: mouth 2 [place] iron) 00 (two) Medical tablet times Branch daily. ibuprofen 2020-02- No [id number] 600mg Take 1 Univers 600 mg 0-21 02-18 tablet by ity of tablet 00:00: 00:00 mouth [place] 00 :00 every 6 Medical (six) Branch hours as needed (Pain). Take with food or milk. FENTanyl 2 2020-02- No Intra-op Un rand [...] 11:47 INTRA [place] W/EPINEPHRI 00 :04 PROCEDURE, [place] dical NE) 1.5 Starting Branch %-1:200,000 on Tue injection 11/25/20 at 2049, Until 11/26/20 at 0647, Routine, Intra-op hydrOXYzine 2020-0 Yes [id number] 25mg Take 1 Univers 25 mg 7-22 tablet by ity of tablet 00:00: mouth [place] 00 every 6 Medical (six) Branch hours as needed for Itching or Anxiety. hydrOXYzine 0 Yes [id number] 25mg Take 1 Univers 25 mg 7-22 tablet by ity of tablet 00:00: mouth [place] 00 every 6 Medical (six) Branch hours as needed for Itching or Anxiety. hydrOXYzine 2020-0 Yes [id number] 25mg Take 1 Univers 25 mg 7-22 tablet by ity of tablet 00:00: mouth [place] 00 every 6 Medical (six) Branch hours as needed for Itching or Anxiety. hydrOXYzine 2020-0 Yes [id number] 25mg Take 1 Univers 25 mg 7-22 tablet by ity of tablet 00:00: mouth [place] 00 every 6 Medical (six) Branch hours as needed for Itching or Anxiety. hydrOXYzine Yes [id number] 25mg Take 1 Univers 25 mg 7-22 tablet by ity of tablet 00:00: mouth [place] 00 every 6 Medical (six) Branch hours as needed for Itching or Anxiety. hydrOXYzine Yes [id number] 25mg Take 1 Univers 25 mg 7-22 tablet by ity of tablet 00:00: mouth [place] 00 every 6 Medical (six) Branch hours as needed for Itching or Anxiety. hydrOXYzine Yes [id number] 25mg Take 1 Univers 25 mg 7-22 tablet by ity of tablet 00:00: mouth [place] 00 every 6 Medical (six) Branch hours as needed for Itching or Anxiety. hydrOXYzine 2020- No [id number] 25mg Take 1 Univers 25 mg 7-22 09-09 tablet by ity of tablet 00:00: 00:00 mouth [place] 00 :00 every 6 Medical (six) Branch hours as needed for Itching or Anxiety. hydrOXYzine 2020- No [id number] 25mg Take 1 Univers 25 mg 7-22 [...] ity of 33-iron-fol 00:00: mouth [place] ic-dha daily. Medical (SELECT-OB Branch + DHA) 29 mg iron-1 mg -250 mg combo pack Yes 1{packe Take 1 Univ ers vit 7-21 t} Packet by ity of 33-iron-fol 00:00: mouth [place] ic-dha daily. Medical (SELECT-OB Branch + DHA) 29 mg iron-1 mg -250 mg combo pack Yes 1{packe Take 1 Univ ers vit 7-21 t} Packet by ity of 33-iron-fol 00:00: mouth [place] ic-dha daily. Medical (SELECT-OB Branch + DHA) 29 mg iron-1 mg -250 mg combo pack Yes 1{packe Take 1 Univ ers vit 7-21 t} Packet by ity of 33-iron-fol 00:00: mouth [place] ic-dha daily. Medical (SELECT-OB Branch + DHA) 29 [...] mg -250 mg combo pack fluticasone Yes [id number] 1{spray Use 1 Univers propionate 4-27 } [place] in ity o f 50 00:00: each [place] mcg/actuati 00 nostril 2 Med ical on nasal (two) Branch spray times daily. fluticasone Yes [id number] 1{spray Use 1 Univers propionate 4-27 } [place] in ity o f 50 00:00: each [place] mcg/actuati 00 nostril 2 Med ical on nasal (two) Branch spray times daily. fluticasone Yes [id number] 1{spray Use 1 Univers propionate 4-27 } [place] in ity o f 50 00:00: each [place] mcg/actuati 00 nostril 2 Med ical on nasal (two) Branch spray times daily. fluticasone 2020-0 Yes [id number] 1{spray Use 1 Univers propionate 4-27 } [place] [address] 00:00: each [place] mcg/actuati 00 nostril 2 Med ical on nasal (two) Branch spray times daily. fluticasone 2020-0 Yes [id number] 1{spray Use 1 Univers propionate 4-27 } [place] [address] 00:00: each [place] mcg/actuati 00 nostril 2 Med ical on nasal (two) Branch spray times daily. fluticasone 2020-0 Yes [id number] 1{spray Use 1 Univers propionate 4-27 } [place] [address] 00:00: each [place] mcg/actuati 00 nostril 2 Med ical on nasal (two) Branch spray times daily. fluticasone 2020-0 Yes [id number] 1{spray Use 1 Univers propionate 4-27 } [place] [address] 00:00: each [place] mcg/actuati 00 nostril 2 Med ical on nasal (two) Branch spray times daily. fluticasone 2020-0 Yes [id number] 1{spray Use 1 Univers propionate 4-27 } [place] [address] 00:00: each [place] mcg/actuati 00 nostril 2 Med ical on nasal (two) Branch spray times daily. fluticasone 2020-0 Yes [id number] 1{spray Use 1 Univers propionate 4-27 } [place] [address] 00:00: each [place] mcg/actuati 00 nostril 2 Med ical on nasal (two) Branch spray times daily. fluticasone 2020-0 Yes [id number] 1{spray Use 1 Univers propionate 4-27 } [place] [address] 00:00: each [place] mcg/actuati 00 nostril 2 Med ical on nasal (two) Branch spray times daily. fluticasone 2020-0 Yes [id number] 1{spray Use 1 Univers propionate 4-27 } [place] [address] 00:00: each [place] mcg/actuati 00 nostril 2 Med ical on nasal (two) Branch spray times daily. fluticasone 2020-0 Yes [id number] 1{spray Use 1 Univers propionate 4-27 } [place] in ity o f 50 00:00: each [place] mcg/actuati 00 nostril 2 Med ical on nasal (two) Branch spray times daily. fluticasone 2020- No [id number] 1{spray Use 1 Univers propionate 4-27 07-21 } [place] in ity of 50 00:00: 00:00 each [place] mcg/actuati 00 :00 nostril 2 Med ical on nasal (two) Branch spray times daily. cephALEXin 2020- No 500mg Take 500 U nivers 500 mg 4-06 04-06 mg by ity of capsule 15:16: 00:00 mouth 2 [place] 58 :00 (two) Medical times Branch daily. acetaminoph 2020- No 975mg 975 mg, U nivers en 2-25 02-25 Oral, ONCE ity of (TYLENOL) 06:30: 05:51 NOW, 1 [place] tablet 975 00 :00 dose, Nel Medi gerri mg 04/03/20 at Branch 0030, [place] NaCl 0.9% 2020- No 1000mL at 999 Uni vers (NS) bolus 2-25 02-25 mL/hr, ity of infusion 06:30: 07:04 1,000 mL, [place] as 1,000 mL 00 :00 IV Medical Infusion, Branch ONCE, 1 dose, Nel 04/03/20 at 0030, STAT cephALEXin 2020-0 Yes 500mg Take 500 Un rand 500 mg 2-23 mg by ity of capsule 15:47: mouth 2 [place] [address] (two) Medical times Branch daily. cephALEXin 2020-0 Yes 500mg Take 500 Un [place] 500 mg 2-23 mg by ity of capsule 15:47: mouth 2 [place] [address] (two) Medical times Branch daily. cephALEXin 2021-0 Yes 500mg Take 500 [place] 500 mg 2-23 mg by ity of capsule 15:47: mouth 2 [place] [address] (two) Medical times Branch daily. cephALEXin 2021-0 Yes 500mg Take 500 [place] 500 mg 2-23 mg by ity of capsule 15:47: mouth 2 [place] [address] (two) Medical times Branch daily. cephALEXin 2021-0 Yes 500mg Take 500 [place] 500 mg 2-23 mg by ity of capsule 15:47: mouth 2 [place] [address] (two) Medical times Branch daily. cephALEXin 2021-0 Yes 500mg Take 500 [place] 500 mg 2-23 mg by ity of capsule 15:47: mouth 2 [place] 56 (two) Medical times Branch daily. cephALEXin 2021-0 Yes 500mg Take 500 [place] 500 mg 2-23 mg by ity of capsule 15:47: mouth 2 [place] 56 (two) Medical times Branch daily. cephALEXin 2021-0 Yes 500mg Take 500 [place] 500 mg 2-23 mg by ity of capsule 15:47: mouth 2 [place] 56 (two) Medical times Branch daily. cephALEXin 2021-0 Yes 500mg Take 500 [place] 500 mg 2-23 mg by ity of capsule 15:47: mouth 2 [place] 56 (two) Medical times Branch daily. cephALEXin 2021-0 Yes 500mg Take 500 [place] 500 mg 2-23 mg by ity of capsule 15:47: mouth 2 [place] 56 (two) Medical times Branch daily. Yes [id number] 1{packe Take 1 Univers vit 2-23 t} Packet by ity of 33-iron-fol 00:00: mouth [place] ic-dha 00 daily. Medical (SELECT-OB Branch + DHA) 29 mg iron-1 mg -250 mg combo pack Yes [id number] 1{packe Take 1 Univers vit 2-23 t} Packet by ity of 33-iron-fol 00:00: mouth [place] ic-dha 00 daily. Medical (SELECT-OB Branch + DHA) 29 mg iron-1 mg -250 mg combo pack Yes [id number] 1{packe Take 1 Univers vit 2-23 t} Packet by ity of 33-iron-fol 00:00: mouth [place] ic-dha 00 daily. Medical (SELECT-OB Branch + DHA) 29 mg iron-1 mg -250 mg combo pack Yes [id number] 1{packe Take 1 Univers vit 2-23 t} Packet by ity of 33-iron-fol 00:00: mouth [place] ic-dha 00 daily. Medical (SELECT-OB Branch + DHA) 29 mg iron-1 mg -250 mg combo pack Yes [id number] 1{packe Take 1 Univers vit 2-23 t} Packet by ity of 33-iron-fol 00:00: mouth [place] ic-dha 00 daily. Medical (SELECT-OB Branch + DHA) 29 mg iron-1 mg -250 mg combo pack Yes [id number] 1{packe Take 1 Univers vit 2-23 t} Packet by ity of 33-iron-fol 00:00: mouth [place] ic-dha 00 daily. Medical (SELECT-OB Branch + DHA) 29 mg iron-1 mg -250 mg combo pack Yes [id number] 1{packe Take 1 Univers vit 2-23 t} Packet by ity of 33-iron-fol 00:00: mouth [place] ic-dha 00 daily. Medical (SELECT-OB Branch + DHA) 29 mg iron-1 mg -250 mg combo pack Yes [id number] 1{packe Take 1 Univers vit 2-23 t} Packet by ity of 33-iron-fol 00:00: mouth [place] ic-dha 00 daily. Medical (SELECT-OB Branch + DHA) 29 mg iron-1 mg -250 mg combo pack Yes [id number] 1{packe Take 1 Univers vit 2-23 t} Packet by ity of 33-iron-fol 00:00: mouth [place] ic-dha daily. Medical (SELECT-OB Branch + DHA) 29 mg iron-1 mg -250 mg combo pack Yes [id number] 1{packe Take 1 Univers vit 2-23 t} Packet by ity of 33-iron-fol 00:00: mouth [place] ic-dha 00 daily. Medical (SELECT-OB Branch + DHA) 29 mg iron-1 mg -250 mg combo pack Yes [id number] 1{packe Take 1 Univers vit 2-23 t} Packet by ity of 33-iron-fol 00:00: mouth [place] ic-dha 00 daily. Medical (SELECT-OB Branch + DHA) 29 mg iron-1 mg -250 mg combo pack Yes [id number] 1{packe Take 1 Univers vit 2-23 t} Packet by ity of 33-iron-fol 00:00: mouth [place] ic-dha 00 daily. Medical (SELECT-OB Branch + DHA) 29 mg iron-1 mg -250 mg combo pack Yes [id number] 1{packe Take 1 Univers vit 2-23 t} Packet by ity of 33-iron-fol 00:00: mouth [place] ic-dha 00 daily. Medical (SELECT-OB Branch + DHA) 29 mg iron-1 mg -250 mg combo pack Yes [id number] 1{packe Take 1 Univers vit 2-23 t} Packet by ity of 33-iron-fol 00:00: mouth [place] ic-dha 00 daily. Medical (SELECT-OB Branch + DHA) 29 mg iron-1 mg -250 mg combo pack Yes [id number] 1{packe Take 1 Univers vit 2-23 t} Packet by ity of 33-iron-fol 00:00: mouth [place] ic-dha 00 daily. Medical (SELECT-OB Branch + DHA) 29 mg iron-1 mg -250 mg combo pack Yes [id number] 1{packe Take 1 Univers vit 2-23 t} Packet by ity of 33-iron-fol 00:00: mouth [place] ic-dha 00 daily. Medical (SELECT-OB Branch + DHA) 29 mg iron-1 mg -250 mg combo pack Yes [id number] 1{packe Take 1 Univers vit 2-23 t} Packet by ity of 33-iron-fol 00:00: mouth [place] ic-dha 00 daily. Medical (SELECT-OB Branch + DHA) 29 mg iron-1 mg -250 mg combo pack Yes [id number] 1{packe Take 1 Univers vit 2-23 t} Packet by ity of 33-iron-fol 00:00: mouth [place] ic-dha 00 daily. Medical (SELECT-OB Branch + DHA) 29 mg iron-1 mg -250 mg combo pack Yes [id number] 1{packe Take 1 Univers vit 2-23 t} Packet by ity of 33-iron-fol 00:00: mouth [place] ic-dha 00 daily. Medical (SELECT-OB Branch + DHA) 29 mg iron-1 mg -250 mg combo pack Yes [id number] 1{packe Take 1 Univers vit 2-23 t} Packet by ity of 33-iron-fol 00:00: mouth [place] ic-dha 00 daily. Medical (SELECT-OB Branch + DHA) 29 mg iron-1 mg -250 mg combo pack 0 Yes [id number] 1{packe Take 1 Univers vit 2-23 t} Packet by ity of 33-iron-fol 00:00: mouth [place] ic-dha 00 daily. Medical (SELECT-OB Branch + DHA) 29 mg iron-1 mg -250 mg combo pack 0 Yes [id number] 1{packe Take 1 Univers vit 2-23 t} Packet by ity of 33-iron-fol 00:00: mouth [place] ic-dha 00 daily. Medical (SELECT-OB Branch + DHA) 29 mg iron-1 mg -250 mg combo pack Yes [id number] 1{packe Take 1 Univers vit 2-23 t} Packet by ity of 33-iron-fol 00:00: mouth [place] ic-dha 00 daily. Medical (SELECT-OB Branch + DHA) 29 mg iron-1 mg -250 mg combo pack 0 202- No [id number] 1{packe Take 1 Univers vit 2-23 07-21 t} Packet by ity of 33-iron-fol 00:00: 00:00 [place] ic-dha 00 :00 daily. Medical (SELECT-OB Branch + DHA) 29 mg iron-1 mg -250 mg combo pack cyclobenzap 2020-0 Yes [id number] 5mg Take 1 Univers rine 5 mg 8-14 4 tablet by ity o f tablet 00:00: mouth 2 (two) Medical times Branch daily as needed for Muscle Spasms. Can cause drowsiness . cyclobenzap 2020-0 Yes [id number] 5mg Take 1 Univers rine 5 mg 8-14 4 tablet by ity o f tablet 00:00: mouth 2 (two) Medical times Branch daily as needed for Muscle Spasms. Can cause drowsiness . cyclobenzap 2020-0 Yes [id number] 5mg Take 1 Univers rine 5 mg 8-14 4 tablet by ity o f tablet 00:00: mouth 2 (two) Medical times Branch daily as needed for Muscle Spasms. Can cause drowsiness . cyclobenzap 2020-0 Yes [id number] 5mg Take 1 Univers rine 5 mg 8-14 4 tablet by ity o f tablet 00:00: mouth 2 00 (two) Medical times Branch daily as needed for Muscle Spasms. Can cause drowsiness . cyclobenzap 2020-0 Yes [id number] 5mg Take 1 Univers rine 5 mg 8-14 4 tablet by ity o f tablet 00:00: mouth 2 [place] 00 (two) Medical times Branch daily as needed for Muscle Spasms. Can cause drowsiness . cyclobenzap 2020-0 Yes [id number] 5mg Take 1 Univers rine 5 mg 8-14 4 tablet by ity o f tablet 00:00: mouth 2 [place] 00 (two) Medical times Branch daily as needed for Muscle Spasms. Can cause drowsiness . cyclobenzap 2020-0 2020- No [id number] 5mg Take 1 Univers rine 5 mg 8-14 02-23 4 tablet by ity of tablet 00:00: 00:00 mouth 2 [place] 00 :00 (two) Medical times Branch daily as needed for Muscle Spasms. Can cause drowsiness . cyclobenzap 2020-0 2020- No [id number] 5mg Take 1 Univers rine 5 mg 8-14 02-23 4 tablet by ity of tablet 00:00: 00:00 mouth 2 [place] 00 :00 (two) Medical times Branch daily as needed for Muscle Spasms. Can cause drowsiness . gabapentin 2020-0 Yes [id number] 100mg Take 1 Univers 100 mg 8-12 capsule by ity of capsule 00:00: mouth 3 [place] (three) Medical times Branch daily as needed (nerve pain). gabapentin 2020-0 Yes [id number] 100mg Take 1 Univers 100 mg 8-12 capsule by ity of capsule 00:00: mouth 3 [place] 00 (three) Medical times Branch daily as needed (nerve pain). gabapentin 2020-0 Yes [id number] 100mg Take 1 Univers 100 mg 8-12 capsule by ity of capsule 00:00: mouth 3 [place] 00 (three) Medical times Branch daily as needed (nerve pain). gabapentin 2020-0 Yes [id number] 100mg Take 1 Univers 100 mg 8-12 capsule by ity of capsule 00:00: mouth 3 [place] (three) Medical times Branch daily as needed (nerve pain). gabapentin 2020-0 Yes [id number] 100mg Take 1 Univers 100 mg 8-12 capsule by ity of capsule 00:00: mouth (three) Medical times Branch daily as needed (nerve pain). gabapentin 2020-0 Yes [id number] 100mg Take 1 Univers 100 mg 8-12 capsule by ity of capsule 00:00: mouth (three) Medical times Branch daily as needed (nerve pain). gabapentin 2020-0 Yes [id number] 100mg Take 1 Univers 100 mg 8-12 capsule by ity of capsule 00:00: mouth (three) Medical times Branch daily as needed (nerve pain). gabapentin 2020-0 Yes [id number] 100mg Take 1 Univers 100 mg 8-12 capsule by ity of capsule 00:00: mouth (three) Medical times Branch daily as needed (nerve pain). gabapentin 2020-0 Yes [id number] 100mg Take 1 [facility] 100 mg 8-12 capsule by ity of capsule 00:00: mouth (three) Medical times Branch daily as needed (nerve pain). gabapentin 2020-0 Yes [id number] 100mg Take 1 [facility] 100 mg 8-12 capsule by ity of capsule 00:00: mouth (three) Medical times Branch daily as needed (nerve pain). gabapentin 2020-0 Yes [id number] 100mg Take 1 [facility] 100 mg 8-12 capsule by ity of capsule 00:00: mouth (three) Medical times Branch daily as needed (nerve pain). gabapentin 2020-0 Yes [id number] 100mg Take 1 [facility] 100 mg 8-12 capsule by ity of capsule 00:00: mouth (three) Medical times Branch daily as needed (nerve pain). gabapentin 2020-0 Yes [id number] 100mg Take 1 [facility] 100 mg 8-12 capsule by ity of capsule 00:00: mouth (three) Medical times Branch daily as needed (nerve pain). gabapentin 2020-0 2021- No [id number] 100mg Take 1 [facility] 100 mg 8-12 02-23 capsule by ity of capsule 00:00: 00:00 mouth 3 00 :00 (three) Medical times Branch daily as needed (nerve pain). gabapentin 2020-0 2021- No [id number] 100mg Take 1 [facility] 100 mg 8-12 02-23 capsule by ity of capsule 00:00: 00:00 mouth 3 [place] 00 :00 (three) Medical times Branch daily as needed (nerve pain). LORazepam Yes Univers 0.5 mg -17 ity of tablet 00:00: [place] 00 Medical Branch LORazepam 2020- No TWICE Univer s 0.5 mg 08-23 DAILY ity of tablet 00:00: 00:00 00 :00 Medical Branch metoprolol 2020- No TWICE Unive rs tartrate 50 08-23- DAILY ity of mg tablet 00:00: 00:00 [place] 00 :00 Medical Branch LORazepam 2019- No Univers 0.5 mg 08-23- ity of tablet 00:00: 00:00 [place] 00 :00 Medical Branch LORazepam 2020- No Univers 0.5 mg 08-23- ity of tablet 00:00: 00:00 [place] 00 :00 Medical Branch SERTraline 2019- No [id number] 50mg Take 1 Univers (ZOLOFT) 50 7-16 08-16 tablet by it y of mg tablet 00:00: 04:59 mouth [place] 00 :00 daily for Medical 30 days. Branch SERTraline 2020- No [id number] 50mg Take 1 [facility] (ZOLOFT) 50 7-16 08-16 tablet by it y of mg tablet 00:00: 04:59 mouth [place] 00 :00 daily for Medical 30 days. Branch SERTraline 2020- No [id number] 50mg Take 1 [facility] (ZOLOFT) 50 7-16 08-16 tablet by it y of mg tablet 00:00: 04:59 mouth [place] 00 :00 daily for Medical 30 days. Branch SERTraline 2020- No [id number] 50mg Take 1 [facility] (ZOLOFT) 50 7-16 08-12 tablet by it y of mg tablet 00:00: 00:00 mouth [place] 00 :00 daily for Medical 30 days. Branch SERTraline 2020- No [id number] 50mg Take 1 Univers (ZOLOFT) 50 7-16 08-12 tablet by it y of mg tablet 00:00: 00:00 mouth [place] 00 :00 daily for Medical 30 days. Branch ALPRAZolam Yes TAKE 1 Unive rs 0.5 mg 7-15 TABLET BY ity of tablet 00:00: MOUTH 3 [place] 00 TIMES A Medical DAY Branch NEEDED ALPRAZolam 2019-0 2020- No TAKE 1 Univ ers 0.5 mg 7-15 08-12 TABLET BY ity of tablet 00:00: 00:00 MOUTH 3 [place] 00 :00 TIMES A Medical DAY Branch NEEDED ALPRAZolam 2020-0 2020- No TAKE 1 Univ ers 0.5 mg 7-15 08-12 TABLET BY ity of tablet 00:00: 00:00 MOUTH 3 [place] 00 :00 TIMES A Medical DAY Branch NEEDED hydrOXYzine 2019- 2020- No [id number] 10mg Take 1 [facility] 10 mg 7-15 07-26 tablet by ity of tablet 00:00: 04:59 mouth [place] 00 :00 every 6 Medical (six) Branch hours for 10 days. hydrOXYzine 2019-0 2020- No [id number] 10mg Take 1 [facility] 10 mg 7-15 07-26 tablet by ity of tablet 00:00: 04:59 mouth [place] 00 :00 every 6 Medical (six) Branch hours for 10 days. hydrOXYzine 2019-0 2020- No [id number] 10mg Take 1 [facility] 10 mg 7-15 07-26 tablet by ity of tablet 00:00: 04:59 mouth [place] 00 :00 every 6 Medical (six) Branch hours for 10 days. albuterol 2020-0 Yes [id number] 2.5mg Inhale 3 Univers 2.5 mg /3 7-12 mL every 4 ity of mL (0.083 00:00: (four) [place] %) 00 hours. May Medical nebulizer also Branch solution nebulize one extra every 6 hours. albuterol 2020-0 Yes [id number] 2{puff} Inhale 2 [facility] 90 7-12 Puffs ity of mcg/actuati 00:00: every 4 [place] on inhaler 00 (four) Medical hours as Branch needed for Wheezing or Shortness of Breath. albuterol 2020-0 Yes [id number] 2.5mg Inhale 3 [facility] 2.5 mg /3 7-12 mL every 4 ity of mL (0.083 00:00: (four) [place] %) 00 hours. May Medical nebulizer also Branch solution nebulize one extra every 6 hours. albuterol 2020-0 Yes [id number] 2{puff} Inhale 2 [facility] 90 7-12 Puffs ity of mcg/actuati 00:00: every 4 [place] on inhaler 00 (four) Medical hours as Branch needed for Wheezing or Shortness of Breath. albuterol 2020-0 Yes [id number] 2.5mg Inhale 3 [facility] 2.5 mg /3 7-12 mL every 4 ity of mL (0.083 00:00: (four) [place] %) 00 hours. May Medical nebulizer also Branch solution nebulize one extra every 6 hours. albuterol 2020-0 Yes [id number] 2{puff} Inhale 2 [facility] 90 7-12 Puffs ity of mcg/actuati 00:00: every 4 [place] on inhaler 00 (four) Medical hours as Branch needed for Wheezing or Shortness of Breath. albuterol 2020-0 Yes [id number] 2.5mg Inhale 3 [facility] 2.5 mg /3 7-12 mL every 4 ity of mL (0.083 00:00: (four) [place] %) 00 hours. May Medical nebulizer also Branch solution nebulize one extra every 6 hours. albuterol 2020-0 Yes [id number] 2{puff} Inhale 2 [facility] 90 7-12 Puffs ity of mcg/actuati 00:00: every 4 [place] on inhaler 00 (four) Medical hours as Branch needed for Wheezing or Shortness of Breath. albuterol 2020-0 Yes [id number] 2.5mg Inhale 3 [facility] 2.5 mg /3 7-12 mL every 4 ity of mL (0.083 00:00: (four) [place] %) 00 hours. May Medical nebulizer also Branch solution nebulize one extra every 6 hours. albuterol 2020-0 Yes [id number] 2{puff} Inhale 2 [facility] 90 7-12 Puffs ity of mcg/actuati 00:00: every 4 [place] on inhaler 00 (four) Medical hours as Branch needed for Wheezing or Shortness of Breath. albuterol 2020-0 Yes [id number] 2.5mg Inhale 3 [facility] 2.5 mg /3 7-12 mL every 4 ity of mL (0.083 00:00: (four) [place] %) 00 hours. May Medical nebulizer also Branch solution nebulize one extra every 6 hours. albuterol 2020-0 Yes [id number] 2{puff} Inhale 2 [facility] 90 7-12 Puffs ity of mcg/actuati 00:00: every 4 [place] on inhaler 00 (four) Medical hours as Branch needed for Wheezing or Shortness of Breath. albuterol Yes [id number] 2.5mg Inhale 3 [facility] 2.5 mg /3 7-12 mL every 4 ity of mL (0.083 00:00: (four) [place] %) 00 hours. May Medical nebulizer also Branch solution nebulize one extra every 6 hours. albuterol Yes [id number] 2{puff} Inhale 2 [facility] 90 7-12 Puffs ity of mcg/actuati 00:00: every 4 [place] on inhaler 00 (four) Medical hours as Branch needed for Wheezing or Shortness of Breath. albuterol 2020- No [id number] 2.5mg Inhale 3 [facility] 2.5 mg /3 7-12 08-12 mL every 4 ity of mL (0.083 00:00: 00:00 (four) [place] %) 00 :00 hours. May Medical nebulizer also Branch solution nebulize one extra every 6 hours. albuterol 2020- No [id number] 2{puff} Inhale 2 [facility] 90 7-12 08-12 Puffs ity of mcg/actuati 00:00: 00:00 every 4 [place] on inhaler 00 :00 (four) Medical hours as Branch needed for Wheezing or Shortness of Breath. albuterol 2020- No [id number] 2.5mg Inhale 3 Univers 2.5 mg /3 7-12 08-12 mL every 4 ity of mL (0.083 00:00: 00:00 (four) [place] %) 00 :00 hours. May Medical nebulizer also Branch solution nebulize one extra every 6 hours. albuterol 2020- No [id number] 2{puff} Inhale 2 [facility] 90 7-12 08-12 Puffs ity of mcg/actuati 00:00: 00:00 every 4 [place] on inhaler 00 :00 (four) Medical hours as Branch needed for Wheezing or Shortness of Breath. FEMYNOR Yes 1{tbl} Take 1 Univer s 0.25-35 6-11 tablet by ity of mg-mcg per 00:00: mouth [place] tablet 00 daily. Medical Branch FEMYNOR 0 Yes 1{tbl} Take 1 Univer s 0.25-35 6-11 tablet by ity of mg-mcg per 00:00: mouth [place] tablet 00 daily. Medical Branch FEMYNOR Yes 1{tbl} Take 1 Univer s 0.25-35 6-11 tablet by ity of mg-mcg per 00:00: mouth [place] tablet 00 daily. Medical Branch FEMYNOR Yes 1{tbl} Take 1 Univer s 0.25-35 6-11 tablet by ity of mg-mcg per 00:00: mouth [place] tablet 00 daily. Medical Branch FEMYNOR Yes 1{tbl} Take 1 Univer s 0.25-35 6-11 tablet by ity of mg-mcg per 00:00: mouth [place] tablet 00 daily. Medical Branch FEMYNOR 2020- No 1{tbl} Take 1 Unive rs 0.25-35 6-11 08-12 tablet by ity of mg-mcg per 00:00: 00:00 mouth [place] tablet 00 :00 daily. Medical Branch FEMYNOR 2020- No 1{tbl} Take 1 Unive rs [...] iron) 00 daily. Medical tablet Branch ibuprofen 2017-0 Yes 600mg Take 1 Unive rs 600 [...] iron) 00 daily. Medical tablet Branch ibuprofen 2017-0 Yes 600mg Take 1 Unive rs 600 mg 3-14 tablet by ity of tablet 00:00: mouth [place] 00 every 6 Medical (six) Branch hours as needed for Pain (scale 1-3) or Pain (scale 4-6) (Pain). Take with food or milk. docusate 2020- No 240mg Take 1 Unive rs calcium 240 3-14 08-12 capsule by i ty of mg capsule 00:00: 00:00 mouth once [place] 00 :00 daily as Medical needed for Branch Constipati on. ferrous 2020- No 325mg Take 1 Univer s sulfate 325 3-14 08-12 tablet by it y of mg (65 mg 00:00: 00:00 mouth [place] iron) 00 :00 daily. Medical tablet Branch ibuprofen 2020- No 600mg Take 1 Univ ers 600 mg 3-14 08-12 tablet by ity of tablet 00:00: 00:00 mouth [place] 00 :00 every 6 Medical (six) Branch hours as needed for Pain (scale 1-3) or Pain (scale 4-6) (Pain). Take with food or milk. docusate 2020- No 240mg Take 1 Unive rs calcium 240 3-14 08-12 capsule by i ty of mg capsule 00:00: 00:00 mouth once [place] 00 :00 daily as Medical needed for Branch Constipati on. ferrous 2020- No 325mg Take 1 Univer s sulfate 325 3-14 08-12 tablet by it y of mg (65 mg 00:00: 00:00 mouth [place] iron) 00 :00 daily. Medical tablet Branch ibuprofen 2020- No 600mg Take 1 Univ ers 600 mg 3-14 08-12 tablet by ity of tablet 00:00: 00:00 mouth [place] 00 :00 every 6 Medical (six) Branch hours as needed for Pain (scale 1-3) or Pain (scale 4-6) (Pain). Take with food or milk. 2016-02 Yes [id number] 1{packe Take 1 Univers vit 0-05 t} Packet by ity of 33-iron-fol 00:00: mouth [place] ic-dha 00 daily. Medical (SELECT-OB Branch + DHA) 29 mg iron-1 mg -250 mg combo pack 2016-02 Yes [id number] 1{packe Take 1 Univers vit 0-05 t} Packet by ity of 33-iron-fol 00:00: mouth [place] ic-dha 00 daily. Medical (SELECT-OB Branch + DHA) 29 mg iron-1 mg -250 mg combo pack 2016-02 Yes [id number] 1{packe Take 1 Univers vit 0-05 t} Packet by ity of 33-iron-fol 00:00: mouth [place] ic-dha 00 daily. Medical (SELECT-OB Branch + DHA) 29 mg iron-1 mg -250 mg combo pack 2016-02 Yes [id number] 1{packe Take 1 [facility] vit 0-05 t} Packet by ity of 33-iron-fol 00:00: mouth [place] ic-dha 00 daily. Medical (SELECT-OB Branch + DHA) 29 mg iron-1 mg -250 mg combo pack 2016-02 Yes [id number] 1{packe Take 1 [facility] vit 0-05 t} Packet by ity of 33-iron-fol 00:00: mouth [place] ic-dha 00 daily. Medical (SELECT-OB Branch + DHA) 29 mg iron-1 mg -250 mg combo pack 2016-02 Yes [id number] 1{packe Take 1 [facility] vit 0-05 t} Packet by ity of 33-iron-fol 00:00: mouth [place] ic-dha 00 daily. Medical (SELECT-OB Branch + DHA) 29 mg iron-1 mg -250 mg combo pack 2016-02 Yes [id number] 1{packe Take 1 [facility] vit 0-05 t} Packet by ity of 33-iron-fol 00:00: mouth [place] ic-dha 00 daily. Medical (SELECT-OB Branch + DHA) 29 mg iron-1 mg -250 mg combo pack 2016-02 Yes [id number] 1{packe Take 1 [facility] vit 0-05 t} Packet by ity of 33-iron-fol 00:00: mouth [place] ic-dha 00 daily. Medical (SELECT-OB Branch + DHA) 29 mg iron-1 mg -250 mg combo pack 2016-02 2020- No [id number] 1{packe Take 1 [facility] vit 0-05 08-12 t} Packet by ity of 33-iron-fol 00:00: 00:00 [place] ic-dha 00 :00 daily. Medical (SELECT-OB Branch + DHA) 29 mg iron-1 mg -250 mg combo pack 2016-02 2020- No [id number] 1{packe Take 1 Univers vit 0-05 08-12 t} Packet by ity of 33-iron-fol 00:00: 00:00 mouth [place] ic-dha 00 :00 daily. Medical (SELECT-OB Branch + DHA) 29 mg iron-1 mg -250 mg combo pack Immunizations Ordered Filled Immunization Date Status Comments Sourc e Immunization Name Name TD 2020-09-15 Completed [facility] of 00[facility]00:00 [facility] TDAP 2020-09-15 Completed [facility] of 00:00:00 [facility] TDAP 2020-09-15 Completed [facility] of 00[facility]00:00 [facility] TDAP 2020-09-15 Completed [facility] 00:00:00 [facility] TDAP 2020-09-15 Completed [facility] of 00[facility]00:00 [facility] TDAP 2020-09-15 Completed [facility] of 00:00:00 [facility] TDAP 2020-09-15 Completed [facility] 00:00:00 [facility] TDAP 2020-09-15 Completed [facility] of 00:00:00 [facility] TDAP 2020-09-15 Completed [facility] of 00:00:00 [facility] TDAP 2020-09-15 Completed [facility] of 00:00:00 [facility] TDAP 2020-09-15 Completed [facility] of 00:00:00 [facility] TDAP 2020-09-15 Completed University of 00:00:00 [facility] TDAP 2017-02-09 Completed University of 00:00:00 [facility] TDAP 2017-02-09 Completed University of 00:00:00 [facility] TDAP 2017-02-09 Completed University of 00:00:00 [facility] TDAP 2017-02-09 Completed [facility] of 00:00:00 [facility] TDAP 2017-02-09 Completed [facility] of 00:00:00 [facility] TDAP 2017-02-09 Completed [facility] of 00:00:00 [facility] TDAP 2017-02-09 Completed [facility] of 00[facility]00:00 [facility] TDAP 2017-02-09 Completed [facility] of 00:00:00 [facility] TDAP 2017-02-09 Completed [facility] of 00:00:00 [facility] TDAP 2017-02-09 Completed [facility] of 00:00:00 [facility] TDAP 2017-02-09 Completed [facility] of 00:00:00 [facility] TDAP 2017-02-09 Completed University of 00:00:00 [place] [facility] TDAP 2017-02-09 Completed University of 00:00:00 [place] [facility] TDAP 2017-02-09 Completed University of 00:00:00 [place] [facility] TDAP 2017-02-09 Completed University of 00:00:00 [place] [facility] TDAP 2017-02-09 Completed University of 00:00:00 [place] [facility] TDAP 2017-02-09 Completed University of 00:00:00 [place] [facility] TDAP 2017-02-09 Completed University of 00:00:00 [place] [facility] TDAP 2017-02-09 Completed University of 00:00:00 [place] [facility] TDAP 2017-02-09 Completed University of 00:00:00 [place] [facility] TDAP 2017-02-09 Completed University of 00:00:00 [place] [facility] TDAP 2017-02-09 Completed University of 00:00:00 [place] [facility] TDAP 2017-02-09 Completed [facility] of 00:00:00 [facility] TDAP 2017-02-09 Completed University of 00:00:00 [place] [facility] TDAP 2017-02-09 Completed University of 00:00:00 [place] [facility] TDAP 2017-02-09 Completed University of 00:00:00 [place] [facility] TDAP 2017-02-09 Completed University of 00:00:00 [place] [facility] TDAP 2017-02-09 Completed University of 00:00:00 [place] [facility] TDAP 2017-02-09 Completed University of 00:00:00 [place] [facility] TDAP 2017-02-09 Completed [facility] of 00:00:00 [facility] TDAP 2017-02-09 Completed University of 00:00:00 [place] [facility] TDAP 2017-02-09 Completed University of 00:00:00 [place] [facility] TDAP 2017-02-09 Completed University of 00:00:00 [place] [facility] TDAP 2017-02-09 Completed University of 00:00:00 [place] [facility] TDAP 2017-02-09 Completed University of 00:00:00 [place] [facility] TDAP 2017-02-09 Completed University of 00:00:00 [place] [facility] TDAP 2017-02-09 Completed University of 00:00:00 [place] [facility] TDAP 2017-02-09 Completed University of 00:00:00 [place] [facility] TDAP 2017-02-09 Completed University of 00:00:00 [place] [facility] TDAP 2017-02-09 Completed University of 00:00:00 [place] [facility] TDAP 2017-02-09 Completed University of 00:00:00 [place] [facility] TDAP 2017-02-09 Completed University of 00:00:00 [place] [facility] TDAP 2017-02-09 Completed University of 00:00:00 [place] [facility] TDAP 2017-02-09 Completed University of 00:00:00 [place] [facility] TDAP 2017-02-09 Completed University of 00:00:00 [place] [facility] TDAP 2017-02-09 Completed University of 00:00:00 [place] [facility] TDAP 2017-02-09 Completed University of 00:00:00 [place] [facility] TDAP 2017-02-09 Completed University of 00:00:00 [place] [facility] TDAP 2017-02-09 Completed University of 00:00:00 [place] [facility] TDAP 2017-02-09 Completed University of 00:00:00 [place] [facility] TDAP 2017-02-09 Completed University of 00:00:00 [place] [facility] TDAP 2017-02-09 Completed [facility] of 00:00:00 [facility] TDAP 2017-02-09 Completed University of 00:00:00 [place] [facility] TDAP 2017-02-09 Completed University of 00:00:00 [place] [facility] TDAP 2017-02-09 Completed University of 00:00:00 [place] [facility] TDAP 2017-02-09 Completed University of 00:00:00 [place] [facility] TDAP 2017-02-09 Completed University of 00:00:00 [place] [facility] TDAP 2017-02-09 Completed [facility] of 00:00:00 [facility] TDAP 2017-02-09 Completed University of 00:00:00 [place] [facility] TDAP 2017-02-09 Completed University of 00:00:00 [place] [facility] TDAP 2017-02-09 Completed [facility] of 00:00:00 [facility] TDAP 2007-02-07 Completed [facility] of 00:00:00 [facility] TDAP 2007-02-07 Completed University of 00:00:00 [place] [facility] TDAP 2007-02-07 Completed University of 00:00:00 [place] [facility] TDAP 2007-02-07 Completed [facility] of 00:00:00 [facility] TDAP 2007-02-07 Completed [facility] of 00:00:00 [facility] TDAP 2007-02-07 Completed University of 00:00:00 [place] [facility] TDAP 2007-02-07 Completed [facility] of 00:00:00 [facility] TDAP 2007-02-07 Completed [facility] of 00:00:00 [facility] TDAP 2007-02-07 Completed [facility] of 00:00:00 [facility] TDAP 2007-02-07 Completed [facility] of 00:00:00 [facility] TDAP 2007-02-07 Completed University of 00:00:00 [facility] TDAP 2007-02-07 Completed University of 00:00:00 [facility] TDAP 2007-02-07 Completed [facility] of 00:00:00 [facility] TDAP 2007-02-07 Completed [facility] of 00:00:00 [facility] TDAP 2007-02-07 Completed [facility] of 00:00:00 [facility] TDAP 2007-02-07 Completed [facility] of 00:00:00 [facility] TDAP 2007-02-07 Completed University of 00:00:00 [facility] TDAP 2007-02-07 Completed University of 00:00:00 [facility] TDAP 2007-02-07 Completed University of 00:00:00 [facility] TDAP 2007-02-07 Completed University of 00:00:00 [facility] TDAP 2007-02-07 Completed University of 00:00:00 [facility] TDAP 2007-02-07 Completed University of 00:00:00 [facility] TDAP 2007-02-07 Completed University of 00:00:00 [facility] TDAP 2007-02-07 Completed University of 00:00:00 [facility] TDAP 2007-02-07 Completed [facility] of 00:00:00 [facility] TDAP 2007-02-07 Completed [facility] of 00:00:00 [facility] TDAP 2007-02-07 Completed [facility] of 00[facility]00:00 [facility] TDAP 2007-02-07 Completed [facility] of 00:00:00 [facility] TDAP 2007-02-07 Completed [facility] of 00:00:00 [facility] TDAP 2007-02-07 Completed [facility] of 00:00:00 [facility] TDAP 2007-02-07 Completed [facility] of 00:00:00 [facility] TDAP 2007-02-07 Completed [facility] of 00:00:00 [facility] TDAP 2007-02-07 Completed [facility] of 00:00:00 [facility] TDAP 2007-02-07 Completed [facility] of 00:00:00 [facility] TDAP 2007-02-07 Completed University of 00:00:00 [facility] TDAP 2007-02-07 Completed University of 00:00:00 [facility] TDAP 2007-02-07 Completed University of 00:00:00 [facility] TDAP 2007-02-07 Completed University of 00:00:00 [facility] TDAP 2007-02-07 Completed University of 00:00:00 [facility] TDAP 2007-02-07 Completed University of 00:00:00 [facility] TDAP 2007-02-07 Completed University of 00:00:00 [facility] TDAP 2007-02-07 Completed University of 00:00:00 [facility] TDAP 2007-02-07 Completed University of 00:00:00 [facility] TDAP 2007-02-07 Completed University of 00:00:00 [facility] TDAP 2007-02-07 Completed [facility] of 00:00:00 [facility] 2007-02-07 [facility] TDAP 2007-02-07 Completed University of 00:00:00 [facility] TDAP 2007-02-07 Completed University of 00:00:00 [facility] TDAP 2007-02-07 Completed University of 00:00:00 [facility] TDAP 2007-02-07 Completed University of 00:00:00 [facility] TDAP 2007-02-07 Completed University of 00:00:00 [facility] TDAP 2007-02-07 Completed University of 00:00:00 [facility] TDAP 2007-02-07 Completed University of 00:00:00 [facility] TDAP 2007-02-07 Completed University of 00:00:00 [facility] TDAP 2007-02-07 Completed University of 00:00:00 [facility] TDAP 2007-02-07 Completed University of 00:00:00 [facility] TDAP 2007-02-07 Completed University of 00:00:00 [facility] TDAP 2007-02-07 Completed University of 00:00:00 [facility] TDAP 2007-02-07 Completed University of 00:00:00 [facility] TDAP 2007-02-07 Completed University of 00:00:00 [facility] Vital Signs Vital Name Observation Time Observation Value Comments Source Systolic blood 2021-03-27 09:38:51 117 mm[Hg] Univer sity of pressure [place] [facility] Diastolic blood 2021-03-27 09:38:51 78 mm[Hg] Unive rsity of pressure [place] [facility] Heart rate 2021-03-27 09:38:51 87 /min Universi ty of [place] [facility] Respiratory rate 2021-03-27 09:38:51 18 /min Univ ersity of [facility] Oxygen saturation in 2021-03-27 09:38:51 98 /min University of Arterial blood by [facility] Pulse oximetry Branch Body height 2021-03-27 08:49:00 154.9 cm Universi ty of [place] [facility] [place] Body weight 2021-03-27 08:49:00 79.379 kg Universi ty of [facility] BMI 2021-03-27 08:49:00 33.07 kg/m2 Universi ty of [facility] Body temperature 2021-03-27 08:49:00 36.89 [place] Univ ersity of [facility] Systolic blood 2020-10-16 19:34:00 104 mm[Hg] Univer sity of pressure [place] [facility] Diastolic blood 2020-10-16 19:34:00 64 mm[Hg] Unive rsity of pressure [place] [facility] Heart rate 2020-10-16 19:34:00 95 /min Universi ty of [facility] Body temperature 2020-10-16 19:34:00 37.06 Brig[place] Univ ersity of [facility] Respiratory rate 2020-10-16 19:34:00 18 /min Univ ersity of [facility] Body height 2020-10-16 19:34:00 154.9 cm Universi ty of [place] [facility] Body weight 2020-10-16 19:34:00 81.336 kg Universi ty of [place] [facility] BMI 2020-10-16 19:34:00 33.88 kg/m2 [facility]i ty of [facility] Systolic blood 2020-09-15 19:34:00 107 mm[Hg] Univer sity of pressure [place] [facility] Diastolic blood 2020-09-15 19:34:00 67 mm[Hg] Unive rsity of pressure [facility] Heart rate 2020-09-15 19:34:00 98 /min [facility]i ty of [facility] Body temperature 2020-09-15 19:34:00 37.17 Brigitte [facility] Respiratory rate 2020-09-15 19:34:00 16 /min [facility] Body height 2020-09-15 19:34:00 154.9 cm [facility] Body weight 2020-09-15 19:34:00 80.922 kg [facility] BMI 2020-09-15 19:34:00 33.71 kg/m2 [facility] Systolic blood 2020-08-28 19:23:00 109 mm[Hg] Univer sity of [facility] Diastolic blood 2020-08-28 19:23:00 70 mm[Hg] Unive rsity of pressure [facility] Heart rate 2020-08-28 19:23:00 107 /min [facility] Body temperature 2020-08-28 19:23:00 36.94 Brigitte [facility] Respiratory rate 2020-08-28 19:23:00 18 /min [facility] Body height 2020-08-28 19:23:00 154.9 cm [facility] Body weight 2020-08-28 19:23:00 79.379 kg [facility] BMI 2020-08-28 19:23:00 33.07 kg/m2 [facility] Oxygen saturation in 2020-08-28 19:23:00 97 /min University of Arterial blood by [facility] Pulse oximetry Branch Systolic blood 2020-08-28 19:23:00 109 mm[Hg] Univer sity of pressure [facility] Diastolic blood 2020-08-28 19:23:00 70 mm[Hg] Unive rsity of pressure [facility] Heart rate 2020-08-28 19:23:00 107 /min [facility] Body temperature 2020-08-28 19:23:00 36.94 Brigitte [facility] Respiratory rate 2020-08-28 19:23:00 18 /min [facility] Body height 2020-08-28 19:23:00 154.9 cm [facility] Body weight 2020-08-28 19:23:00 79.379 kg [facility] [place] BMI 2020-08-28 19:23:00 33.07 kg/m2 Universi ty of [facility] Oxygen saturation in 2020-08-28 19:23:00 97 /min University Arterial blood by [facility] Pulse oximetry Branch Systolic blood 2020-08-27 15:37:00 108 mm[Hg] Univer sity of pressure [facility] Diastolic blood 2020-08-27 15:37:00 71 mm[Hg] Unive rsity of pressure [facility] Heart rate 2020-08-27 15:37:00 90 /min Universi ty of [facility] Body temperature 2020-08-27 15:37:00 36.83 Brigitte Univ [facility] Respiratory rate 2020-08-27 15:37:00 16 /min Univ ersity of [facility] Body weight 2020-08-27 15:37:00 80.105 kg Universi ty of [facility] BMI 2020-08-27 15:37:00 32.83 kg/m2 Universi ty of [facility] Systolic blood 2020-08-27 15:37:00 108 mm[Hg] [facility] [place] Diastolic blood 2020-08-27 15:37:00 71 mm[Hg] Unive rsity of pressure [facility] Heart rate 2020-08-27 15:37:00 90 /min Universi ty of [facility] Body temperature 2020-08-27 15:37:00 36.83 Brigitte Univ [facility] Respiratory rate 2020-08-27 15:37:00 16 /min Univ ers[facility] of [facility] Body weight 2020-08-27 15:37:00 80.105 kg [facility] [place] BMI 2020-08-27 15:37:00 32.83 kg/m2 Universi ty of [facility] Systolic blood 2020-07-30 15:52:00 103 mm[Hg] Univer sity of pressure [facility] Diastolic blood 2020-07-30 15:52:00 69 mm[Hg] Unive rsity of pressure [facility] Heart rate 2020-07-30 15:52:00 89 /min Universi ty of [facility] Body temperature 2020-07-30 15:52:00 37.5 Brigitte [facility] Respiratory rate 2020-07-30 15:52:00 16 /min [facility] Body height 2020-07-30 15:52:00 156.2 cm [facility] Body weight 2020-07-30 15:52:00 80.015 kg [facility] BMI 2020-07-30 15:52:00 32.79 kg/m2 [facility] Systolic blood 2020-07-01 19:19:00 100 mm[Hg] Univer [facility]ity of [facility] Diastolic blood 2020-07-01 19:19:00 62 mm[Hg] Unive rsity of pressure [facility] Heart rate 2020-07-01 19:19:00 79 /min [facility] Body temperature 2020-07-01 19:19:00 37.06 Brigitte [facility] Respiratory rate 2020-07-01 19:19:00 16 /min [facility] Body height 2020-07-01 19:19:00 156.2 cm [facility] Body weight 2020-07-01 19:19:00 79.652 kg [facility] BMI 2020-07-01 19:19:00 32.64 kg/m2 [facility] Systolic blood 2020-06-17 13:54:00 105 mm[Hg] Univer [facility]ity of [facility] Diastolic blood 2020-06-17 13:54:00 70 mm[Hg] Unive rsity of pressure [facility] Heart rate 2020-06-17 13:54:00 78 /min [facility] Body temperature 2020-06-17 13:54:00 36.94 Brigitte [facility] Respiratory rate 2020-06-17 13:54:00 16 /min [facility] Body height 2020-06-17 13:54:00 152.4 cm [facility] Body weight 2020-06-17 13:54:00 80.468 kg [facility] BMI 2020-06-17 13:54:00 34.65 kg/m2 [facility] Systolic blood 2020-06-04 03:00:00 125 mm[Hg] Univer [facility]ity of [facility] Diastolic blood 2020-06-04 03:00:00 65 mm[Hg] Unive rsity of pressure [facility] Heart rate 2020-06-04 03:00:00 90 /min [facility] Body temperature 2020-06-04 03:00:00 36.89 Brigitte [facility] Respiratory rate 2020-06-04 03:00:00 22 /min [facility] Oxygen saturation in 2020-06-04 03:00:00 100 /min University of Arterial blood by [facility] Pulse oximetry Branch Body weight 2020-06-04 01:18:00 80.74 kg [facility] BMI 2020-06-04 01:18:00 33.63 kg/m2 [facility] Systolic blood 2020-05-13 15:04:00 103 mm[Hg] Univer [facility]ity of [facility] Diastolic blood 2020-05-13 15:04:00 72 mm[Hg] Unive rsity of pressure [facility] Heart rate 2020-05-13 15:04:00 87 /min [facility] Body temperature 2020-05-13 15:04:00 36.83 Brigitte [facility] Respiratory rate 2020-05-13 15:04:00 16 /min [facility] Body height 2020-05-13 15:04:00 154.9 cm [facility] Body weight 2020-05-13 15:04:00 80.372 kg [facility] BMI 2020-05-13 15:04:00 33.48 kg/m2 [facility] Systolic blood 2020-04-03 07:04:39 114 mm[Hg] Univer sity of [facility] Diastolic blood 2020-04-03 07:04:39 77 mm[Hg] Unive rsity of pressure [facility] Heart rate 2020-04-03 07:04:39 94 /min [facility] Respiratory rate 2020-04-03 07:04:39 15 /min [facility] Oxygen saturation in 2020-04-03 07:04:39 100 /min University of Arterial blood by [facility] Pulse oximetry [place] Body temperature 2020-04-03 05:13:00 36.61 Brigitte Univ ers[facility] of [facility] Body height 2020-04-03 05:13:00 154.9 cm Universi ty of [facility] Body weight 2020-04-03 05:13:[address] [facility] BMI 2020-04-03 05:13:00 34.96 kg/m2 Universi ty of [facility] Systolic blood 2020-04-01 15:34:00 117 mm[Hg] Univer sity of pressure [facility] Diastolic blood 2020-04-01 15:34:00 81 mm[Hg] Unive rsity of pressure [facility] Heart rate 2020-04-01 15:34:00 101 /min Universi ty of [facility] Body temperature 2020-04-01 15:34:00 36.61 Brigitte Univ [facility] Respiratory rate 2020-04-01 15:34:00 16 /min Univ ersity of [facility] Body height 2020-04-01 15:34:00 152.4 cm Universi ty of [facility] Body weight 2020-04-01 15:34:00 83.093 kg Universi ty of [facility] BMI 2020-04-01 15:34:00 35.78 kg/m2 Universi ty of [facility] Systolic blood 2019-09-14 18:04:00 122 mm[Hg] Univer sity of pressure [facility] Diastolic blood 2019-09-14 18:04:00 81 mm[Hg] Unive rsity of pressure [facility] Heart rate 2019-09-14 18:04:00 94 /min Universi ty of [facility] Body temperature 2019-09-14 18:04:00 37.11 Brigitte [facility] Respiratory rate 2019-09-14 18:04:00 18 /min Univ ersity of [facility] Body height 2019-09-14 18:04:00 152.4 cm Universi ty of [facility] Body weight 2019-09-14 18:04:[address] [facility] BMI 2019-09-14 18:04:00 35.15 kg/m2 [facility] Oxygen saturation in 2019-09-14 18:04:00 97 /min University of Arterial blood by [facility] Pulse oximetry Branch Systolic blood 2019-08-23 20:22:00 110 mm[Hg] Univer sity of pressure [facility] Diastolic blood 2019-08-23 20:22:00 82 mm[Hg] Unive rsity of pressure [facility] Heart rate 2019-08-23 20:22:00 106 /min [facility] Body temperature 2019-08-23 20:22:00 37 Brigitte [facility] Respiratory rate 2019-08-23 20:22:00 18 /min [facility] Body height 2019-08-23 20:22:00 152.4 cm [facility] Body weight 2019-08-23 20:22:00 81.92 kg [facility] BMI 2019-08-23 20:22:00 35.27 kg/m2 [facility] Oxygen saturation in 2019-08-23 20:22:00 96 /min University of Arterial blood by [facility] Pulse oximetry Branch Systolic blood 2019-08-22 19:15:00 112 mm[Hg] Univer sity of pressure [facility] Diastolic blood 2019-08-22 19:15:00 93 mm[Hg] Unive rsity of pressure [facility] Heart rate 2019-08-22 19:14:00 97 /min [facility] Body temperature 2019-08-22 19:14:00 36.44 Brigitte [facility] Respiratory rate 2019-08-22 19:14:00 16 /min [facility] Body weight 2019-08-22 19:14:00 81.647 kg [facility] BMI 2019-08-22 19:14:00 34.01 kg/m2 [facility] Oxygen saturation in 2019-08-22 19:14:00 99 /min University of Arterial blood by [facility] Pulse oximetry Branch Systolic blood 2019-08-22 18:32:00 110 mm[Hg] Univer sity of pressure [facility] Diastolic blood 2019-08-22 18:32:00 73 mm[Hg] Unive rsity of pressure [facility] Heart rate 2019-08-22 18:32:00 98 /min [facility] Body temperature 2019-08-22 18:32:00 37.17 Brigitte [facility] Respiratory rate 2019-08-22 18:32:00 16 /min [facility] Body height 2019-08-22 18:32:00 154.9 cm [facility] Body weight 2019-08-22 18:32:00 82.464 kg [facility] BMI 2019-08-22 18:32:00 34.35 kg/m2 [facility] ty [facility] Oxygen saturation in 2019-08-22 18:32:00 100 /min University of Arterial blood by [facility] Pulse oximetry Branch Systolic blood 2019-08-20 01:55:00 117 mm[Hg] Univer sity of pressure [facility] Diastolic blood 2019-08-20 01:55:00 88 mm[Hg] Unive rsity of pressure [facility] Heart rate 2019-08-20 01:55:00 86 /min [facility] Body temperature 2019-08-20 01:55:00 37.56 Brigitte [facility] Respiratory rate 2019-08-20 01:55:00 22 /min [facility] Body height 2019-08-20 01:55:00 152.4 cm [facility] Body weight 2019-08-20 01:55:00 83.462 kg [facility] BMI 2019-08-20 01:55:00 35.94 kg/m2 [facility] Oxygen saturation in 2019-08-20 01:55:00 99 /min University of Arterial blood by [facility] Pulse oximetry Branch Procedures Procedure Date / Time Performing Clinician Source Performed CONSENT/REFUSAL FOR 2021-03-27 08:40:33 Doctor Unassigned, No Un [facility] DIAGNOSIS AND TREATMENT Name Medical Branch CENTRAL NEURAXIAL BLOCK 2020-11-26 02:06:09 Carine Smith [facility] POCT URINALYSIS 2020-10-16 19:37:00 Dany Carias [facility] STERILIZATION CONSENT 2020-10-16 05:01:00 Doctor Unassigned, No [facility] TDAP VACCINE, >11 YRS, 2020-09-15 19:37:56 Dany Carias [facility] POCT URINALYSIS 2020-09-15 19:36:00 Dany Carias [facility] XR CHEST 2 VW 2020-08-28 21:03[facility] 2020-08-28 19:43:00 Vipul [facility] (MOLECULAR) [facility] POCT URINALYSIS 2020-08-27 16:49:00 Dany Carias [facility] ASSIGNMENT OF BENEFITS 2020-08-27 15:01:02 Doctor Unassigned, No [facility] POCT URINALYSIS 2020-07-30 16:02:00 Dany Carias [facility] POCT URINALYSIS 2020-07-01 19:24:00 Dany Carias [facility] POCT URINALYSIS 2020-06-17 13:56:00 Dany Carias [facility] RAPID STREP SCREEN FOR 2020-06-04 02:00:00 Julio Da Silva [facility] GROUP A Medical Branch COVID-19 (ID NOW RAPID 2020-06-04 02:00:00 Julio Da Silva [facility] TESTING) [facility] POCT URINALYSIS 2020-05-13 15:06:00 Dany Carias [facility] POCT TEST 2020-04-03 05:44:00 Yoshi Esparza [facility] URINALYSIS 2020-04-03 05:30:00 Vilma [facility] POCT TEST 2020-04-01 15:37:00 Dany Carias [facility] POCT URINALYSIS 2020-04-01 15:36:00 Dany Carias [facility] ASSIGNMENT OF BENEFITS 2020-04-01 15:15:16 Doctor Unassigned, No [facility] Name Medical Branch XR SPINE THORACIC 4 2019-09-21 17:31:22 Minoo Thakkar A [facility] XR SPINE THORACIC 4 2019-09-21 17:31:22 Christina Thakkarful A [facility] XR CERVICAL SPINE 4 2019-09-21 16:12:52 Christina Thakkarful A [facility] XR CERVICAL SPINE 4 2019-09-21 16:12:52 Sandra Rodrichana A U [facility]iversity of [facility] ASSIGNMENT OF BENEFITS 2019-09-20 14:56:33 Doctor Unassigned, No [facility] ASSIGNMENT OF BENEFITS 2019-08-20 01:45:49 Doctor Unassigned, No [facility] CONSENT/REFUSAL FOR 2019-08-20 01:44:04 Doctor Unassigned, No [facility] DIAGNOSIS AND TREATMENT [facility] Encounters Start End Encounter Admission Attending Care Care Encounter Source Date/Time Date/Time Type Type Clinicians Facility Department ID 2020-12-07 Emergency [facility] [id number] Univers 15:42:49 ity of [facility] 2020-12-07 Emergency [facility] [id number] Univers 01:14:36 ity of [facility] 2020-12-05 Emergency [facility] [id number] Univers 06:56:[address] [facility] 2020-12-05 Emergency [facility] [id number] [facility] 2019-08-22 Inpatient HCACL MALACHI [id number] [facility] 08:59:00 [id number] [facility] 2021-03-27 2021-03-27 Emergency X [facility] ERT [id number] Univers 02:58:00 04:43:[address] [facility] 2021-03-27 2021-03-27 Emergency [facility] [id number] Univers 02:58:00 04:43:00 Job VÁSQUEZ [id number] ity [facility] [id number] [facility] [phone] [facility] 084 Branch 2021-03-27 2021-03-27 Orders Doctor KEARA [id number] Univers 00:00:00 00:00:00 Only Unassigned, CASI [id number] ity of [place] [facility] [id number] Jaison as [phone] [facility] 009 Branch 2020-11-25 2020-11-27 Inpatient X ADUM, [facility] KYLE [id number] Univers 13:14:00 12:30:00 JIMENA [facility] 2020-11-26 2020-11-26 Outpatient INDUCTION, [facility] [id number] Univers 08:00:00 08:00:00 KEARA [id number] [facility] 2020-11-25 2020-11-26 [facility] 1.2.840.114 [id number] Univers 20:45:00 00:47:00 Event Carine [place] [id number] i ty [facility] [id number] [facility] [id number] [facility] 083 [place] 2020-11-24 2020-11-24 [facility] [id number] Univers 00:00:00 00:00:00 Dany Banks SURGICAL SALES REPRESENTATIVE [id number] ity [facility] [id number] Jaison as MATERNAL [phone] Med ical & CHILD [address] [place] [address] 2020-11-20 2020-11-20 [facility] [id number] Univers 10:15:00 10:15:00 NORA [id number] [facility] 2020-11-20 2020-11-20 [facility] [id number] Univers 10:15:00 10:15:[address] [facility] 2020-11-17 2020-11-17 Telephone [facility] 1.2.840.114 [id number] Univers 00:00:00 00:00:00 Nora Montoya SURGICAL SALES REPRESENTATIVE [id number] it y of REGIONAL [id number] Jaison as MATERNAL [id number] [facility] ical & CHILD [address] [place] [address] 2020-11-10 2020-11-10 Outpatient Jocelyn SANCHEZ [facility] [id number] Univers 10:30:00 10:30:00 [facility] [id number] [facility] 2020-11-10 2020-11-10 Outpatient Jocelyn SANCHEZ [facility] [id number] Univers 10:30:00 10:30:[address] [facility] 2020-10-30 2020-10-30 Outpatient Jocelyn SANCHEZ [facility] [id number] Univers 12:45:00 12:45:00 NORA [id number] [facility] 2020-10-30 2020-10-30 [facility] [id number] Univers 12:45:00 12:45:[address] [facility] 2020-10-16 2020-10-16 Routine [facility] [id number] Univers 14:23:36 15:09:33 Nora Montoya SURGICAL SALES REPRESENTATIVE [id number] i ty of Visit REGIONAL [id number] Jaison as MATERNAL [phone] [facility] ical & CHILD [address] [place] [address] 2020-10-16 2020-10-16 Outpatient Jocelyn SANCHEZ [facility] [id number] Univers 13:00:00 13:00:00 NORA [id number] [facility] 2020-10-16 2020-10-16 Outpatient Jocelyn SANCHEZ [facility] [id number] Univers 13:00:00 13:00:00 NORA [facility] 2020-10-16 2020-10-16 Orders Doctor SARAH 1.2.840.114 [id number] Univers 00:00:00 00:00:00 Only Unassigned, CASI [id number] ity of [place] [facility] [id number] Jaison as [phone] [address] 2020-10-15 2020-10-15 Outpatient Jocelyn CARIAS [facility] [id number] Univers 09:45:00 09:45:00 FELICITASNDMariah [id number] ity o [facility] 2020-10-15 2020-10-15 Outpatient Jocelyn CARIAS [facility] [id number] Univers 09:45:00 09:45:00 FELICITASNDA ity o f [facility] 2020-10-07 2020-10-07 Outpatient Jocelyn SANCHEZ [facility] [id number] Univers 08:00:00 08:00:00 NORA [id number] [facility] 2020-10-07 2020-10-07 Outpatient Jocelyn SANCHEZ [facility] [id number] Univers 08:00:00 08:00:00 NORA [facility] 2020-09-30 2020-09-30 Outpatient Jocelyn CARIAS [facility] [id number] Univers 18:00:00 18:00:00 LILIANAMARYBETH rosalindy o [facility] 2020-09-30 2020-09-30 Outpatient Jcoelyn CARIAS [facility] [id number] Univers 11:45:00 11:45:00 DANY [id number] ity o [facility] 2020-09-30 2020-09-30 Outpatient Jocelyn CARIAS [facility] [id number] Univers 11:45:00 11:45:00 FELICITASNDA ity o [facility] 2020-09-29 2020-09-29 [facility] [id number] Univers 16:45:00 16:45:00 DANY [id number] ity o [facility] 2020-09-29 2020-09-29 Out[facility] [id number] Univers 16:45:00 16:45:00 LILIANANDA [facility] 2020-09-15 2020-09-15 Routine [facility] 1.2.840.114 [id number] Univers 13:58:57 15:37:45 Dany R SURGICAL SALES REPRESENTATIVE [id number] ity of Visit REGIONAL [id number] Jaison as MATERNAL [phone] [facility] & CHILD [address] [place] [address] 2020-09-15 2020-09-15 Outpatient R CARIAS [facility] [id number] Univers 13:15:00 13:15:00 DANY ity o f [facility] 2020-09-12 2020-09-12 Nurse Leidy Duran 1.2.840.114 [id number] Univers 00:00:00 00:00:00 Triage CASI [id number] it y of HOSPITAL [id number] Jaison as [id number] [facility] 019 [place] 2020-08-29 2020-08-[address] [facility] 1.2.840.114 [id number] Univers 00:00:00 00:00:00 [facility] [id number] ity of Surgical [id number] Jaison as Specialti [phone] Nj dical es [facility] 2020-08-28 2020-08-28 [facility] 1.2.840.114 [id number] 15:21:38 23:59:00 Encounter [place] [id number] [place] 4.2.7.2.686 [place] [id number] 2020-08-28 2020-08-28 [facility] 1.2.840.114 [id number] [facility] 15:21:38 23:59:00 Encounter [place] [id number] ity of [place] [id number] [facility] [id number] [facility] 807 [place] 2020-08-28 2020-08-28 [facility] 1.2.840.114 [id number] 14:13:24 15:23:42 Care [facility] [id number] [place] [id number] Professio [id number] nal [address] 2020-08-28 2020-08-28 [facility] 1.2.840.114 [id number] [facility] 14:13:24 15:23:42 Care [facility]y [facility] [id number] ity of [place] [id number] Jaison as Professio [phone] N[place] dical [address] 2020-08-28 2020-08-28 Outpatient R [facility] [id number] Univers 14:20:00 14:20:00 TOBY [facility] 2020-08-28 2020-08-28 Outpatient R [facility] [id number] Univers 13:00:00 13:00:00 [id number] [facility] 2020-08-27 2020-08-27 Routine [facility] 1.2.840.114 [id number] 10:01:23 11:16:37 Roshunda R SURGICAL SALES REPRESENTATIVE 350.1.13.10 Visit REGIONAL [id number] MATERNAL [id number] & CHILD [address] [place] [address] 2020-08-27 2020-08-27 Routine [facility] 1.2.840.114 [id number] Univers 10:01:23 11:16:37 Roshunda R SURGICAL SALES REPRESENTATIVE 350.1.13.10 ity of Visit REGIONAL 4.2.7.2.686 Jaison as MATERNAL [phone] Med ical & CHILD [address] [place] [address] 2020-08-27 2020-08-27 Outpatient R JV [facility] [id number] -[id number] Univers 09:00:00 09:00:00 ROSBENJAMINNDA [id number] ity o f [facility] 2020-08-27 2020-08-27 Out[facility] [id number] Univers 09:00:00 09:00:00 ROSHUNDA ity o f [facility] 2020-08-27 2020-08-27 Orders Doctor SARAH 1.2.840.114 [id number] 00:00:00 00:00:00 Only UnassignedCASI 350.1.13.10 [place] [facility] 4.2.7.2.686 [phone] 009 2020-08-27 2020-08-27 Orders Doctor SARAH 1.2.840.114 [id number] Univers 00:00:00 00:00:00 Only Unassigned, CASI 350.1.13.10 ity of [place] [facility] 4.2.7.2.686 Jaison as [phone] [facility] [address] 2020-08-19 2020-08-19 Purifying Plant Operator 1, [facility] UNIVERSIT 1.2.840.11 4 [id number] 14:50:51 15:35:51 Visit Usg Room Y HEALTH 350.1.13.10 CLINICS 4.2.7.2.686 [id number] [facility] 2020-08-19 2020-08-19 Purifying Plant Operator 1, [facility] Room UNIVERSIT 1 .2.840.114 [id number] Univers 14:50:51 15:35:51 Visit María Haynes Y HEALTH 350.1 .13.10 ity of [facility] [place].2.7.2.[place] [id number] [facility] [address] 2020-08-19 2020-08-19 Outpatient P [facility] [id number] -20 Univers 14:15:00 14:15:00 [id number] ity of [facility] 2020-08-19 2020-08-19 Outpatient P [facility] [id number] Univers 14:15:00 14:15:[address] [facility] 2020-08-11 2020-08-11 Outpatient R [facility] [id number] -20 Univers 08:45:00 08:45:[id number] [facility] 2020-08-11 2020-08-11 Outpatient P [facility] [id number] Univers 08:45:00 08:45:00 ity of [facility] 2020-08-06 2020-08-06 KEARA Moyer 1.2.659.568 [id number] 00:00:00 00:00:00 Triage Mike CASI 350.1.13.10 HOSPITAL 4.2.7.2.686 [id number] 019 2020-08-06 2020-08-06 KEARA Moyer 1.2.628.198 [id number] Univers 00:00:00 00:00:00 Triage Mike CASI 350.1.13.10 it y of HOSPITAL 4.2.7.2.686 Jaison as [phone] [address] 2020-08-06 2020-08-[address] [facility] 1.2.139.530 [id number] Univers 00:00:00 00:00:00 Felicitasnda R SURGICAL SALES REPRESENTATIVE 350.1.13.10 ity of REGIONAL 4.2.7.2.686 [place] as MATERNAL [phone] [facility] ical & CHILD [address] [place] [address] 2020-07-30 2020-07-[address] [facility] 1.2.840.114 [id number] Univers 10:22:14 10:37:14 Rosbenjaminnda R SURGICAL SALES REPRESENTATIVE 350.1.13.10 ity of Visit REGIONAL 4.2.7.2.686 Jaison as MATERNAL [phone] [facility] & [address] 2020-07-30 2020-07-30 Outpatient Jocelyn CARIAS [facility] [id number] -20 Univers 10:15:00 10:15:00 DANY [id number] rosalindisac o [facility] 2020-07-30 2020-07-30 Outpatient oJcelyn [facility] [id number] Univers 10:15:00 10:15:00 DANY isac o [facility] 2020-07-21 2020-07-21 Outpatient Jocelny CARIAS [facility] [id number] Univers 13:45:00 13:45:00 DANY boyerisac o [facility] 2020-07-21 2020-07-21 Outpatient [facility] [id number] -20 Univers 10:30:00 10:30:[id number] [facility] 2020-07-17 2020-07-17 Outpatient Jocelyn CARIAS [facility] [id number] -20 Univers 09:00:00 09:00:00 DANY [id number] itisac o [facility] 2020-07-17 2020-07-17 Outpatient Jocelyn CARIAS [facility] [id number] Univers 09:00:00 09:00:00 DANY boyerisac o [facility] 2020-07-14 2020-07-14 Purifying Plant Operator [facility] 1.2 .840.114 [id number] Univers 09:45:41 11:00:41 Visit Jordan Domingo Matias SURGICAL SALES REPRESENTATIVE 350.1.13.10 ity of REGIONAL 4.2.7.2.686 [place]ison as MATERNAL [phone] [facility] ical & CHILD [address] [facility] 2020-07-14 2020-07-14 Outpatient R [facility] [id number] -20 Univers 10:00:00 10:00:[id number] [facility] 2020-07-14 2020-07-14 Outpatient P [facility] [id number] Univers 10:00:00 10:00:[address] [facility] 2020-07-14 2020-07-[address] [facility] 1.2.589.895 [id number] Univers 00:00:00 00:00:00 Management Nora Jan SURGICAL SALES REPRESENTATIVE 350.1.13.10 ity of REGIONAL 4.2.7.2.686 [place] as MATERNAL [id number] [facility] & CHILD [address] [place] [address] 2020-07-01 2020-07-01 [facility] 1.2.840.114 [id number] Univers 13:52:00 14:58:28 Roslanaa R SURGICAL SALES REPRESENTATIVE 350.1.13.10 ity of Visit REGIONAL 4.2.7.2.686 Jaison as MATERNAL [phone] [facility] & [address] 2020-07-01 2020-07-01 Outpatient JV [facility] [id number] -20 Univers 13:45:00 13:45:00 ROSHUNDA [id number] ity o f [facility] 2020-07-01 2020-07-01 [facility] [id number] Univers 13:45:00 13:45:00 ROSHUNDA ity o f [facility] 2020-07-01 2020-07-01 [facility] 1.2.911.819 [id number] Univers 00:00:00 00:00:00 Roshunda R SURGICAL SALES REPRESENTATIVE 350.1.13.10 ity of REGIONAL 4.2.7.2.686 [place]ison as MATERNAL [phone] [facility] [address] [place] [address] 2020-06-17 2020-06-17 [facility] 1.2.840.114 [id number] Univers 08:48:55 09:25:15 Roshunda R SURGICAL SALES REPRESENTATIVE 350.1.13.10 ity of Visit REGIONAL 4.2.7.2.686 [place]ison as MATERNAL [phone] [address] 2020-06-17 2020-06-17 Outpatient Jocelyn CARIAS [facility] [id number] -20 Univers 08:45:00 08:45:00 ROSNDA [id number] ity o [facility] 2020-06-17 2020-06-17 Outpatient Jocelyn CARIAS [facility] [id number] Univers 08:45:00 08:45:00 [facility] 2020-06-10 2020-06-10 Outpatient Jocelyn CARIAS [facility] [id number] -20 Univers 15:45:00 15:45:00 ROSHUNDA [id number] ity o [facility] 2020-06-10 2020-06-10 Outpatient [facility] [id number] Univers 15:45:00 15:45:00 ROSNDA ity o [facility] 2020-06-03 2020-06-03 Emergency Da Silva, TRAUMA 1.2.650.426 [id number] Univers 20:19:00 22:12:00 [facility] [place] 350.1.13.10 [place] [phone] [address] 2020-05-13 2020-05-13 [facility] 1.2.840.114 [id number] Univers 09:59:20 10:14:20 Roshunda R SURGICAL SALES REPRESENTATIVE 350.1.13.10 ity of Visit REGIONAL 4.2.7.2.686 Jaison as MATERNAL [id number] [facility] & CHILD [address] [place] [address] 2020-05-13 2020-05-13 Outpatient [facility] [id number] -20 Univers 10:00:00 10:00:00 LISANDROMariah [id number] itisac o [facility] 2020-05-13 2020-05-13 Outpatient Jocelyn CARIAS [facility] [id number] Univers 10:00:00 10:00:00 LISANDROA pinky o [facility] 2020-05-06 2020-05-06 Outpatient Jocelyn CARIAS [facility] [id number] -20 Univers 11:00:00 11:00:00 LISANDROMariah [id number] pinky o [facility] 2020-05-06 2020-05-06 Outpatient Jocelyn CARIAS [facility] [id number] Univers 11:00:00 11:00:00 DANY vance o [facility] 2020-04-29 2020-04-29 Outpatient Jocelyn CARIAS [facility] [id number] -20 Univers 10:45:00 10:45:[id number] [facility] 2020-04-29 2020-04-29 Outpatient Jocelyn CARIAS [facility] [id number] Univers 10:45:00 10:45:00 LILIANAHECTOR vance o [facility] 2020-04-29 2020-04-29 Telephone [facility] 1.2.681.965 [id number] Univers 00:00:00 00:00:00 Lilianabenjaminhector Banks SURGICAL SALES REPRESENTATIVE 350.1.13.10 ity [facility] 4.2.7.2.686 Jaison as MATERNAL [phone] Med ical & CHILD [address] [place] [address] 2020-04-22 2020-04-22 Nurse KEARA Garcia 1.2.840.114 [id number] Univers 00:00:00 00:00:00 Triage Lynn Lemus CASI 350.1.13.10 i ty of [facility] 4.2.7.2.686 Jaison as [phone] [address] 2020-04-09 2020-04-09 Case [facility] 1.2.840.114 [id number] Univers 00:00:00 00:00:00 Management Lilianahector Banks SURGICAL SALES REPRESENTATIVE 350.1.13.10 ity of REGIONAL 4.2.7.2.686 Jaison as MATERNAL [phone] [facility] [address] [place] [address] 2020-04-08 2020-04-08 Purifying Plant Operator Ultrasound, Farhad [facility] 1.2 .840.114 [id number] Univers 11:32:55 12:14:18 Visit Tracey Jamil SURGICAL SALES REPRESENTATIVE 350.1.13.10 ity of REGIONAL 4.2.7.2.686 Jaison as MATERNAL [id number] [facility] CH[facility] [address] [place] [address] 2020-04-08 2020-04-08 Outpatient R [facility] [id number] -[id number] Univers 11:30:00 11:30:[id number] [facility] 2020-04-08 2020-04-08 Outpatient P [facility] [id number] Univers 11:30:00 11:30:[address] [facility] 2020-04-08 2020-04-[address] [facility] 1.2.840.114 [id number] Univers 00:00:00 00:00:00 Dany Banks SURGICAL SALES REPRESENTATIVE 350.1.13.10 ity of [facility] 4.2.7.2.686 Jaison as MATERNAL [id number] [address] 2020-04-02 2020-04-[address] [facility] 1.2.840.114 [id number] Univers 23:15:00 01:12:00 [facility] 350.1.13.10 it y of [facility] 4.2.7.2.686 [phone] [address] ([facility]) 2020-04-02 2020-04-[address] [facility] 1.2.832.753 [id number] Univers 00:00:00 00:00:00 Dany Banks SURGICAL SALES REPRESENTATIVE 350.1.13.10 ity of [facility] 4.2.7.2.686 Jaison as MATERNAL [id number] [facility] & CHILD [address] [place] [address] 2020-04-02 2020-04-[address] [facility] 1.2.415.878 [id number] Univers 00:00:00 00:00:00 Roshunda R SURGICAL SALES REPRESENTATIVE 350.1.13.10 ity of REGIONAL 4.2.7.2.686 Jaison as MATERNAL [phone] [facility] [address] [place] [address] 2020-04-01 2020-04-[address] [facility] 1.2.840.114 [id number] Univers 09:25:04 11:05:29 Roshunda R SURGICAL SALES REPRESENTATIVE 350.1.13.10 ity of Visit [facility] 4.2.7.2.686 Jaison as MATERNAL [id number] [facility] [address] [place] [address] 2020-04-01 2020-04-01 Outpatient [facility] [id number] Univers 08:30:00 08:30:00 [id number] ity of [facility] 2020-04-01 2020-04-01 Outpatient R [facility] [id number] Univers 08:30:00 08:30:[address] [facility] 2020-04-01 2020-04-01 Orders Doctor SARAH 1.2.840.114 [id number] Univers 00:00:00 00:00:00 Only Unassigned, CASI 350.1.13.10 ity of [place] [facility] 4.2.7.2.686 Jaison as [phone] [address] 2019-12-18 2019-12-18 Outpatient R [facility] [id number] -20 Univers 09:30:00 09:30:[address] [facility] 2019-12-18 2019-12-18 Outpatient R [facility] [id number] Univers 09:30:00 09:30:[address] [facility] 2019-10-29 2019-10-29 Outpatient [facility] [id number]-20 Univers 10:30:00 10:30:00 MINOO [id number] ity o f [facility] 2019-09-26 2019-09-26 Patient [facility] 1.2.840.114 [id number] Univers 00:00:00 00:00:00 Secure Msg Minoo Lemus [place] 350.1.13.10 [place] of [place] [phone] Nj dical nal 044 [facility] 2019-09-21 2019-09-21 Hospital [facility] 1.2.586.140 [id number] Univers 11:10:44 23:59:00 Encounter Wondiful A [place] 350.1.13.10 ity of [place] 4.2.7.2.686 [facility] [phone] [address] 2019-09-21 2019-09-21 [facility] 1.2.140.037 [id number] Univers 11:00:00 11:09:00 Encounter Wondiful A [place] 350.1.13.10 ity of [place] 4.2.7.2.686 [facility] [phone] [address] 2019-09-21 2019-09-21 [facility] 1.2.096.708 [id number] Univers 09:56:26 10:59:00 Encounter Wondiful A [place] 350.1.13.10 ity of [place] 4.2.7.2.686 [facility] [id number] [address] 2019-09-21 2019-09-21 Outpatient R [facility] [id number]-20 Univers 10:00:00 10:00:00 WONDIFUL [id number] ity o f [facility] 2019-09-21 2019-09-21 Outpatient R [facility] [id number] Univers 00:00:00 00:00:00 WONDIFUL ity o f [facility] 2019-09-21 2019-09-21 Case [facility] 1.2.840.114 [id number] Univers 00:00:00 00:00:00 Management Wondiful A [place] 350.1.13.10 [place] [id number] Nj dical nal 044 [facility] 2019-09-21 2019-09-21 Patient [facility] 1.2.840.114 [id number] Univers 00:00:00 00:00:00 Secure Msg Wondiful A [place] 350.1.13.10 [place] [phone] [facility] 044 [facility] 2019-09-20 2019-09-20 Laboratory Only, Adc Test [place] 1.2.840. 114 [id number] Univers 10:01:43 10:16:43 Only Kevan Beaulieu [place] 350.1.13.10 [place] of [place].2.[place] [phone] [facility] [address] 2019-09-20 2019-09-20 Purifying Plant Operator Naomi, Adc Lab Main [facility] 1.2.8 40.114 [id number] Univers 09:55:41 10:10:41 Visit Minoo Thakkar 350.1.13. 10 [place] of [place]2.[place] [id number] [address] 2019-09-20 2019-09-20 Outpatient SANDRA [facility] [id number]-20 Univers 09:30:00 09:30:00 WONDIFUL [id number] ity o f [facility] 2019-09-20 2019-09-20 Outpatient R ASNDRA [facility] [id number] Univers 00:00:00 00:00:00 WONDIFUL ity o f [facility] 2019-09-20 2019-09-20 Orders Doctor KEARA 1.2.840.114 [id number] Univers 00:00:00 00:00:00 Only Unassigned, CASI 350.1.13.10 ity of [place] [facility] 4.2.7.2.686 Jaison as [phone] [facility] [address] 2019-09-19 2019-09-19 Telemedici [facility] 1.2.840.114 [id number] Univers 13:45:12 15:57:17 ne Visit Minoo Vásquez 350.1.13.10 ity of [place] [phone] [facility] 044 [facility] 2019-09-19 2019-09-19 Outpatient R [facility] [id number] Univers 09:45:00 09:45:00 WONDIFUL ity o f [facility] 2019-09-19 2019-09-19 Outpatient R SANDRA [facility] [id number]-20 Univers 08:45:00 08:45:00 WONDIFUL [id number] ity o f [facility] 2019-09-19 2019-09-[address] [facility] 1.2.840.114 [id number] Univers 00:00:00 00:00:00 Wondiful A Health 350.1.13.10 ity of [place] 4.2.7.2.686 Jaison as Professio [phone] Nj dical nal [address] [facility] 2019-09-14 2019-09-14 Urgent Pob1, Acute Care Clinic [facility] 1. 2.840.114 [id number] Univers 12:46:19 13:54:37 Care Tyrese [facility] 350.1.13.10 ity of [place] 4.2.7.2.686 Jaison as Professio [phone] [address] Office [facility] 2019-09-14 2019-09-14 Outpatient R [facility] [id number] -[id number] Univers 13:00:00 13:00:[address] [facility] 2019-09-14 2019-09-14 Outpatient R DEMLAR [facility] [id number] Univers 13:00:00 13:00:[address] [facility] 2019-08-28 2019-08-28 Outpatient R MURRAY [facility] [id number] -[id number] Univers 11:00:00 11:00:[id number] [facility] 2019-08-28 2019-08-28 Outpatient R MURRAY, [facility] [id number] Univers 11:00:00 11:00:[address] [facility] 2019-08-23 2019-08-23 Urgent Provider, [facility] Urgent Care [facility] 1.2.840.114 [id number] Univers 15:07:25 16:34:23 Care Tyrese [facility] 350.1.13.10 ity of [place] 4.2.7.2.686 Jaison as Professio [phone] Nj dicnc nal [address] [place] [address] [facility] 2019-08-23 2019-08-23 Outpatient R [facility] [id number] -[id number] Univers 15:40:00 15:40:00 [id number] ity of [facility] 2019-08-23 2019-08-23 Outpatient R [facility] [id number] Univers 15:40:00 15:40:00 ity of [facility] 2019-08-22 2019-08-22 Emergency Corazon, [facility] 1.2.880.708 [id number] Univers 14:16:15 16:10:00 Kvng R [facility] 350.1.13.10 it y of [facility] 4.2.7.2.686 [facility] [phone] [address] ([facility]) 2019-08-22 2019-08-22 Nurse Nurse, [facility] 1.2 .840.114 [id number] Univers 13:26:07 13:41:07 Visit Unknown, Attending SPECIALTY 350.1.13. 10 ity [facility] 4.2.7.2.[address] [place] [address] AT [phone] Nj avisal SOFÍA [address] [place] [address] 2019-08-22 2019-08-22 Outpatient R [facility] [id number] -[id number] Univers 13:30:00 13:30:00 [id number] ity of [facility] 2019-08-22 2019-08-22 Outpatient R UNKNOWN, [facility] [id number] Univers 13:30:00 13:30:00 ATTENDING ity of [facility] 2019-08-22 2019-08-22 Telephone KEARA Rivera 1.2.840.114 [id number] Univers 00:00:00 00:00:00 Simba LANCE 350.1.13.10 it y of [facility] 4.2.7.2.686 [facility] [phone] [facility] [address] 2019-08-19 2019-08-[address] [facility] 1.2.840.114 [id number] Univers 21:26:07 21:27:00 Simba Vásquez 350.1.13.10 i ty of [place] 4.2.7.2.686 [facility] [phone] [facility] [address] 2019-08-19 2019-08-19 Orders Doctor SARAH 1.2.840.114 [id number] Univers 00:00:00 00:00:00 Only Unassigned, CASI 350.1.13.10 ity of [place] [facility] 4.2.7.2.686 Jaison as [phone] [facility] [address] Results Test Description Test Time Test Comments Results Result Comments Source SARS-CoV-2 (COVID-19), RT-PCR/TMA 2021-02-25 15:19:39 Test Item Value Reference Range Interpretation Comme nts SARS-CoV-2 INTERPRETATION NEGATIVE SEE NOTE S ARS-CoV-2 RNA NOT (test code = 20058) DETECTED Negative results do not preclude SARS-C [...] is h igh. SOURCE (test code = 54187) NASOPHARYNGEAL Note: Methodology is Dannie Stefani Real-Time RT-PCR. The expected r esult or reference range is NEGATIVE (Not Detected). For more information regarding COVID -19 testing to include clinica linformation, methodology det ail, intended use, FDA author ization andrecommended fact sheets for patients or a lthcare providers, see [employer] Announcement: S ARS-CoV-2 (COVID-19) by N AAT at URL below (note,fact shee ts are provided by method given in report:https:// www.[employer]/[place] saldanaicians/krystal t-communications/ Alternatively, see downloadable PDF fact sheet at:https://www. [employer]/COVID -19-RT-PCR UNLESS OTHERWISE INDIC ATED, ALL TESTING PERFORMED [facility], I [place]. [address] [place] [address] [facility] LABORATORY DIRE CTOR: OCTAVIANO GUZMAN M.D. [place] NUMBER [id number] [facility] [place] [id number] POCT URINALYSIS W SPECIFIC [id number] 19:37:00 Test Item Value Reference Range Interpretation [...] U APPEAR (test code = 3267) . [facility] URINALYSIS W SPECIFIC [id number] 19:37:00 Test Item Value Reference Range Interpretation [...] U APPEAR (test code = 3267) . [facility] URINALYSIS W SPECIFIC [id number] 19:37:00 Test Item Value Reference Range Interpretation [...] 3267) Lab Interpretation (test code = Normal 37806-7) [facility] URINALYSIS W SPECIFIC [id number] 19:37:00 Test Item Value Reference Range Interpretation [...] 3267) Lab Interpretation (test code = Normal 05651-9) [facility] URINALYSIS W SPECIFIC [id number] 19:37:00 Test Item Value Reference Range Interpretation [...] 3267) Lab Interpretation (test code = Normal 03098-3) [facility] GRP A STREP (MOLECULAR)2020-08-28 19:43:00 Test Item Value Reference Range Interpretation Comments POCT GP A STREP (test Negative Negative - code = 06889-8) Negative HENRIK (test code = HENRIK) accurate development and interpretation of all internal controls Lab Interpretation Normal (test code = 80379-0) [facility] URINALYSIS W SPECIFIC [id number] 16:49:00 Test Item Value Reference Range Interpretation [...] 3267) Lab Interpretation (test code = Normal 17173-4) [facility] URINALYSIS W SPECIFIC [id number] 16:02:00 Test Item Value Reference Range Interpretation [...] 3267) Lab Interpretation (test code = Normal 85513-4) [facility] URINALYSIS W SPECIFIC [id number] 19:24:00 Test Item Value Reference Range Interpretation [...] 3267) Lab Interpretation (test code = Normal 43118-6) [facility] URINALYSIS W SPECIFIC [id number] 13:57:00 Test Item Value Reference Range Interpretation [...] 3267) Lab Interpretation (test code = Normal 36524-6) [facility] RAPID [facility])2020-06-04 02:35:01 Test Item Value Reference Range Interpretation Comments SARS-CoV-2 Rapid ID NOW Not Detected Not Detected (test code = 02147-0) HENRIK (test code = HENRIK) ID NOW COVID-19 Assay is an isothermal nucleic acid amplification test intended for the qualitative detection of nucleic acid from SARS-CoV-2 viral RNA in nasopharyngeal (BUSHLER) specimens. It is used under Emergency Use [...] indicated. Lab Interpretation Normal (test code = 56249-8) [facility] FOR GROUP [id number] 02:30:35 Test Item Value Reference Range Interpretation Comments Streptococcus pyogenes (group A) Negative Negative antigen (test code = 79358-5) Lab Interpretation (test code = Normal 26628-1) [facility] UR[facility] W SPECIFIC [id number] 15:06:00 Test Item Value Reference Range Interpretation [...] POCT U APPEAR (test code = 3267) [facility]21-[facility]-25 05:46:00 Test Item Value Reference Range Interpretation Comments APPEARANCE (test code = Clear Clear [id number]) COLOR (test code = Straw Yellow A [id number]) PH (test code = 4.8-8.0 0563356288) SP GRAVITY (test code = 1.003-1.030 3911746643) GLU U QUAL (test code = Normal Normal 0693985062) BLOOD (test code = Negative Negative 6654357777) KETONES (test code = 20 mg/dL Negative A 8267545636) PROTEIN (test code = Negative Negative 2887-8) UROBILIN (test code = Normal Normal 5610027056) BILIRUBIN (test code = Negative Negative 8000680171) NITRITE (test code = Negative Negative 3626006991) LEUK CHASE (test code = Negative Negative 8395034298) RBC/HPF (test code = See_Comment [Autom ated message] 3234273609) The system [employer] generated this result transmitted ref erence range: 0 - 3 HP F. The reference range was not used to int erpret this result as normal/abnormal . WBC/HPF (test code = See_Comment [Autom ated message] [id number]) The system [employer] generated this result transmitted ref erence range: 0 - 5 HP F. The reference range was not used to int erpret this result as normal/abnormal . BACTERIA (test code = Negative Negative 6165685199) MUCOUS (test code = Slight Negative LPF A 7775319839) SQ EPITH (test code = See_Comment [Auto mated message] 8401214168) The system [employer] generated this result transmitted ref erence range: <=2 HPF. The reference range was not used to int erpret this result as normal/abnormal . Lab Interpretation (test Abnormal code = 26565-6) [facility] [id number] 05:44:00 Test Item Value Reference Range Interpretation Comments POCT PREG (test code = 1605) Positive On board controls acceptable with Present C Line (test code = 3574) POCT PREG LOT # (test code = 3575) [id number] POCT PREG TEST DATE (test 2021-11-06 code = 3576) Lab Interpretation (test code = Normal 35145-8) [facility] [id number] 15:37:00 Test Item Value Reference Range Interpretation Comments POCT PREG (test code = 1605) Positive On board controls acceptable with C Yes Line (test code = 3574) POCT PREG LOT # (test code = 3575) POCT PREG TEST DATE (test code = 3576) [facility] [id number] 15:37:00 Test Item Value Reference Range Interpretation Comments POCT PREG (test code = 1605) Positive On board controls acceptable with C Yes Line (test code = 3574) POCT PREG LOT # (test code = 3575) POCT PREG TEST DATE (test code = 3576) [facility] URINALYSIS W SPECIFIC [id number] 15:36:00 Test Item Value Reference Range Interpretation [...] POCT U APPEAR (test code = 3267) [facility] [id number] 15:36:00 Test Item Value Reference Range Interpretation [...] POCT U APPEAR (test code = 3267) [facility] 4 [id number] 18:12:32XR SPINE THORACIC 4 VW HISTORY: Female 34 years 34yo F with chest pain and LUE discomfort ofunknown cause, work-up for possible radiculopathy was recommended by herCardiologist. COMPARISON: None FINDINGS: The vertebral bodies are normal in height and in normal alignment. No significant degenerative changes are present.[facility], Radiant Results Inft User - 09/21/2019 1:13 PM CDTXR SPINE THORACIC 4 VWHISTORY: Female 34 years 34yo F with chest pain and LUE discomfort ofunknown cause, work-up for possibleradiculopathy was recommended by herCardiologist. COMPARISON: NoneFINDINGS:The vertebral bodies are normal in height and in normal alignment.No significant degenerative changes are present. [facility] 4 [id number] 16:15:551. ?No acute osseous findings are seen.2. ?Mild curvature abnormalities without degenerative changes.HISTORY:34yo F with chest pain and LUE discomfort of unknown cause, work-upfor possible radiculopathy was recommended by her Traffic Officer. TECHNIQUE: Frontal, oblique and lateral views of the cervical spine wereobtained. COMPARISON:None. FINDINGS: There is straightening of the cervical lordosis withpreserved sagittalalignment. The vertebral body heights are preserved. The craniocervicaljunction isunremarkable. No degenerative changes are seen. [facility], Radiant Results Inft User - 09/21/2019 11:16 AM CDTHISTORY:34yo F with chest pain and LUE discomfort of unknown cause, work- upfor possible radiculopathy was recommended by her Traffic Officer. TECHNIQUE: Frontal, oblique and lateral views of the cervical spine wereobtained. COMPARISON:None.FINDINGS:There is straightening of the cervical lordosis with preserved sagittalalignment. The vertebral body heights are preserved. The craniocervicaljunction isunremarkable. No degenerative changes are seen.IMPRESSION1. No acute osseous findings are seen.2. Mild curvature abnormalities without degenerative changes.[facility] COMPREHENSIVE METABOLIC [id number] 10:12:00 Test Item Value Reference Range Interpretation [...] 20-125 N TOTAL (test code = ALKP) [id number] 10:12:00 Test Item Value Reference Range Interpretation [...] may jett y by method. COMPREHENSIVE METABOLIC [id number] 10:11:00 Test Item Value Reference Range Interpretation [...] TOTAL (test IUnit/L 20-125 code = ALKP) [id number] 10:11:00 Test Item Value Reference Range Interpretation [...] results may jett y by method. PROTHROMBIN [id number] 09:59:00 Test Item Value Reference Range Interpretation [...] Infarction (t o prevent recurre nt infarct). [id number] 09:59:00 Test Item Value Reference Range Interpretation [...] TESTS AND APPROPRIATECLIN ICAL EUALUATIONS. CBC W/AUTO [id number] 09:56:00 Test Item Value Reference Range Interpretation [...] code = MDIFF) - XR CHEST 1 [id number] 09:56:00 FAX: Dallas Cain MD [phone] [place]: St: PRE Name: RAGHAVENDRA QUINN [facility] : 1985 Age/S: 34/F [address] [place] [address] Unit#: [id number] Loc: [place] [address] Phys: Dallas Cain MD Acct: [id number] Dis Date: Status: PRE ER PHONE #: [phone] Exam Date: 08/22/2019 1003 FAX #: [phone] Reason: Chest Pain EXAMS: CPT CODE: [id number] XR CHEST 1 V 81274 PROCEDURE: CHEST SINGLE VIEW INDICATION: Chest Pain COMPARISON: There are no previous relevant studies available for correlation. FINDINGS: The lungs are clear. No pleural abnormality. The cardiomediastinalsilhouette is normal for projection. The bony thorax is intact. IMPRESSION: Normal radiograph. SL: [id number] at 0956 Reported and signed by: Samson Sousa M.D. CC: Dallas Cain MD Technologist: RT Maddi(R) Trnscrd Date/Time/By: 08/22/2019 (0956) : By: Krissy Orig Print D/T: S: 08/22/2019 (1000) PAGE 1 Signed Report
[2021-03-29] MEDS ORDERED: ACETAMINOPHEN 325 MG TABLET ONE (13:14)
--- NOTE | 2021-03-29 13:58 | RAD REPORT ---
EXAM DESCRIPTION: CT - Head Brain Wo Cont - 03/29/2021 1:30 pm CLINICAL HISTORY: Headache COMPARISON: 2020 TECHNIQUE: Computed axial tomography of the head was obtained. IV contrast was not requested. All CT scans are performed using dose optimization technique as appropriate and may include automated exposure control or mA/KV adjustment according to patient size. FINDINGS: An intracranial bleed is not seen . The ventricles are normal in caliber. No extra-axial fluid collection is noted. Fluid within the sinuses/ mastoids is not seen. IMPRESSION: No acute intracranial abnormality is seen. If patient's symptoms persist MRI of the bra in would be recommended.
--- NOTE | 2021-03-29 14:40 | ER ---
Nurse's Notes [facility] Name: Goyo Solorio Age: 36 yrs Sex: Female : 1985 Arrival Date: 03/29/2021 Time: 12:30 Bed 26 Private MD: Diagnosis: Headache Presentation: 03/29 12:36 Chief complaint: Patient states: Right sided headache that has been going on for ww several days. Was seen earlier this week here and has not had any improvement. Coronavirus screen: Vaccine status: Patient reports being unvaccinated. Client denies travel out of the [place] in the last 14 days. Ebola Screen: Patient denies travel to an Ebola-affected area in the 21 days before illness onset. Initial Sepsis Screen: Does the patient meet any 2 criteria? No. Patient's initial sepsis screen is negative. Does the patient have a suspected source of infection? No. Patient's initial sepsis screen is negative. Risk Assessment: Do you want to hurt yourself or someone else? Patient reports no desire to harm self or others. Onset of symptoms is unknown. 12:36 Method Of Arrival: Ambulatory ww 12:36 Acuity: EUGENIO 4 ww Triage Assessment: 12:38 Headache History: The patient has had previous headaches and this one is different than ww previous episodes. General: Appears uncomfortable, Behavior is cooperative, appropriate for age. Pain: Complains of pain in face Pain currently is 7 out of 10 on a pain scale. Quality of pain is described as throbbing, Pain began 2-3 days ago. Also complains of no other associated symptoms. Neuro: Level of Consciousness is awake, alert, obeys commands, Oriented to person, place, time, situation, Appropriate for age Moves all extremities. Gait is steady, Speech is normal. Cardiovascular: Capillary refill < 3 seconds Patient's skin is warm and dry. Respiratory: Airway is patent Respiratory effort is even, unlabored, Respiratory pattern is regular, symmetrical. GI: No signs and/or symptoms were reported involving the gastrointestinal system. : No signs and/or symptoms were reported regarding the genitourinary system. Derm: Skin is healthy with good turgor, Skin is pink, warm \T\ dry. 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 - Social history:: Smoking status: Patient reports the use of cigarette tobacco products, denies chronic smoking, but will smoke occasionally. Screenin:40 Abuse screen: Denies threats or abuse. Denies injuries from another. Nutritional ww screening: No deficits noted. Tuberculosis screening: No symptoms or risk factors identified. Fall Risk None identified. Assessment: 12:50 General: Appears in no apparent distress. uncomfortable, Behavior is calm, cooperative, ss7 appropriate for age, Reports. Pain: Complains of pain in face Pain radiates to right face and bilateral maxillary sinuses. Neuro: No deficits noted. Level of Consciousness is awake, alert, obeys commands, Oriented to person, place, time, situation, Appropriate for age Dean are equal bilaterally Moves all extremities. Gait is steady, Speech is normal, Facial symmetry appears normal, Intact. Cardiovascular: No deficits noted. Heart tones S1 S2. Respiratory: No deficits noted. Breath sounds are clear bilaterally. GI: No deficits noted. : No deficits noted. EENT: No deficits noted. Derm: No deficits noted. Musculoskeletal: No deficits noted. 13:07 Reassessment: PO challenge of 120ml of apple juice given. Will reassess shortly. Also ss7 given popsicle and placed wee bag on, as patient is hesitant to urinated in a up. SS. Vital Signs: 12:36 BP 117 / 80; Pulse 72; Resp 18; Temp 98.1(TE); Pulse Ox 100% on R/A; Weight 81.65 kg; ww Height 5 ft. 1 in. (154.94 cm); Pain 7/10; 14:46 BP 106 / 76; Pulse 69; Resp 18; Pulse Ox 98% on R/A; ss7 12:36 Body Mass Index 34.01 (81.65 kg, 154.94 cm) ED Course: 12:30 Patient arrived in ED. as 12:38 Triage completed. ww 12:38 Arm band placed on right wrist. ww 12:48 Luis Carlos Paniagua NP is PHCP. pm1 12:48 Edu Rucker MD is Attending Physician. pm1 12:51 Patient has correct armband on for positive identification. Bed in low position. Call ss7 light in reach. Noise minimized. Lights dimmed. 12:51 No provider procedures requiring assistance completed. ss7 13:30 CT Head Brain wo Cont In Process Unspecified. EDMS 14:39 Ozzy Pressley MD is Referral Physician. pm1 14:47 Patient did not have IV access during this emergency room visit. ss7 Administered Medications: 13:15 Drug: Tylenol 650 mg Route: PO; ss7 14:48 Follow up: Response: No adverse reaction ss7 Outcome: 14:39 Discharge ordered by MD. pm1 14:47 Discharged to home ss7 14:47 Condition: 0/10 pain currently pt states it comes and goes. 14:47 Discharge instructions given to patient. 15:13 Patient left the ED. ss7 Signatures: Dispatcher [employer] EDMS Dayan Mack Patrick, NP DIRECT CASTING OPERATOR pm1 Antonette Dey, RN RN Audrey Powers RN RN ss7
--- NOTE | 2021-03-29 14:40 | EDPHYS ---
Physician Documentation [facility] Name: Goyo Solorio Age: 36 yrs Sex: Female : 1985 Arrival Date: 03/29/2021 Time: 12:30 Bed 26 Private MD: ED Physician Edu Rucker HPI: 03/29 13:07 This 36 yrs old Female presents to ER via Ambulatory with complaints of pm1 Headache. 13:07 The patient complains of pain to the right side of head. The patient describes the pm1 headache as aching, constant. Onset: The symptoms/episode began/occurred 3 day(s) ago. Associated signs and symptoms: The patient has no apparent associated signs or symptoms, Pertinent negatives: fever, nausea, vomiting. Severity of symptoms: in the emergency department the pain is unchanged. Headache History: The patient has had previous headaches and this one is different than previous episodes. The symptoms are alleviated by nothing. the symptoms are aggravated by nothing. The patient has been recently seen at the [facility] Emergency Department, for similar complaints labs were performed. 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 - Social history:: Smoking status: Patient reports the use of cigarette tobacco products, denies chronic smoking, but will smoke occasionally. ROS: 13:07 Constitutional: Negative for fever, chills, and weight loss, Cardiovascular: Negative pm1 for chest pain, palpitations, and edema, Respiratory: Negative for shortness of breath, cough, wheezing, and pleuritic chest pain, Abdomen/GI: Negative for abdominal pain, nausea, vomiting, diarrhea, and constipation, MS/Extremity: Negative for injury and deformity, Skin: Negative for injury, rash, and discoloration. 13:07 Neuro: Positive for headache, Negative for numbness, tingling, weakness. 13:07 All other systems are negative. Exam: 13:07 Constitutional: This is a well developed, well nourished patient who is awake, alert, pm1 and in no acute distress. Head/Face: Normocephalic, atraumatic. 13:07 Skin: Warm, dry with normal turgor. Normal color with no rashes, no lesions, and no evidence of cellulitis. MS/ Extremity: Pulses equal, no cyanosis. Neurovascular intact. Full, normal range of motion. 13:07 Eyes: Exam is negative for acute changes, Periorbital structures: no acute changes, Pupils: no acute changes, Extraocular movements: no acute changes, Sclera: no acute changes, icterus, is not appreciated. 13:07 ENT: Exam is negative for acute changes, Mouth: no acute changes, Lips: normal, moist, Oral mucosa: normal, pink and intact, moist. 13:07 Cardiovascular: Exam negative for acute changes, Rate: normal, Rhythm: regular, Pulses: no pulse deficits are appreciated. 13:07 Respiratory: Exam negative for acute changes, respiratory distress, shortness of breath, Breath sounds: are clear throughout. 13:07 Neuro: Exam negative for acute changes, Orientation: is normal, Mentation: is normal, Motor: is normal, moves all fours. Vital Signs: 12:36 BP 117 / 80; Pulse 72; Resp 18; Temp 98.1(TE); Pulse Ox 100% on R/A; Weight 81.65 kg; ww Height 5 ft. 1 in. (154.94 cm); Pain 7/10; 14:46 BP 106 / 76; Pulse 69; Resp 18; Pulse Ox 98% on R/A; ss7 12:36 Body Mass Index 34.01 (81.65 kg, 154.94 cm) ww MDM: 13:02 Patient medically screened. pm1 13:07 ED course: Patient refused toradol, reglan, benadryl and IV fluids. She requested pm1 ibuprofen or tylenol only. 14:39 Data reviewed: vital signs. Data interpreted: Pulse oximetry: on room air is 100 %. pm1 Interpretation: normal. Counseling: I had a detailed discussion with the patient and/or guardian regarding: the historical points, exam findings, and any diagnostic results supporting the discharge/admit diagnosis, radiology results, the need for outpatient follow up, a neurologist, to return to the emergency department if symptoms worsen or persist or if there are any questions or concerns that arise at home. 03/29 13:07 Order name: CT Head Brain wo Cont; Complete Time: 14:38 pm1 Administered Medications: 13:15 Drug: Tylenol 650 mg Route: PO; ss7 14:48 Follow up: Response: No adverse reaction ss7 Disposition Summary: 03/29/21 14:39 Discharge Ordered Location: Home pm1 Problem: new pm1 Symptoms: have improved pm1 Condition: Stable pm1 Diagnosis - Headache pm1 Followup: pm1 - With: Emergency Department - When: As needed - Reason: Worsening of condition Followup: pm1 - With: Ozzy Pressley MD - When: 2 - 3 days - Reason: Recheck today's complaints, Continuance of care, Re-evaluation by your physician Discharge Instructions: - Discharge Summary Sheet pm1 - General Headache Without Cause pm1 Forms: - Medication Reconciliation Form pm1 - Thank You Letter pm1 - Antibiotic Education pm1 - Prescription Opioid Use pm1 Addendum: 04/01/2021 23:11 Co-signature as Attending Physician, Edu Rucker MD I agree with the assessment and r n plan of care. Attestation: The patient's history, exam findings, diagnostics, and a summary of any interventions or procedures was reviewed in detail with Luis Carlos Paniagua NP. Signatures: Dispatcher [employer] EDMS Edu Rucker MD MD rn Marinas, Patrick, NP ADMINISTRATION PHYSICIAN pm1 Antonette Dey RN RN ww Smith, Shana, RN RN ss7
[2021-03-29 15:18] VITALS: TEMP 98.1
[2021-03-29 15:19] VITALS: BP 106/76; O2SAT 98
== END 2021-03-29 15:13 | disposition home or self-care (01) ==
LOC: ER 12:29
DX: R51.9 Headache, unspecified (principal); F17.210 Nicotine dependence, cigarettes, uncomplicated
CPT/HCPCS: 70450; 99283

== ENCOUNTER 2021-04-29 04:15 | Emergency (ER) | payer OTHER ==
--- OUTSIDE RECORDS SUMMARY | 2021-04-29 04:22 | XMS REPORT | Continuity of Care Document ---
:1985 Author Organization [facility] t Address [address] [place] [address] Care Team Providers Name Role Phone SANDRA, Mariah Primary Care Physician Unavailable Mariah THAKKAR Attending Clinician Unavailable Enrique KASPER Attending Clinician Unavailable Enrique Kasper MD Attending Clinician Doctor Unassigned, Name Attending Clinician Unavailable Sophia MAYO Attending Clinician Unavailable INDUCTION Attending Clinician Unavailable Sarah LEES Attending Clinician Jv LUCIANO, R Attending Clinician Jan SANCHEZ Attending Clinician Unavailable Owen LUCIANO, N Attending Clinician Jocelyn CARIAS Attending Clinician Unavailable [...] LEES Attending Clinician Vilma LEES Attending Clinician Sandra LEES, A Attending Clinician Only, Test Attending Clinician Unavailable Brittnee LEES Attending Clinician Pob, Lab Main Attending Clinician Unavailable Pob1, Care Clinic Attending Clinician Unavailable Anene [employer] INSTRUMENT MECHANIC Attending Clinician ANENE Attending Clinician Unavailable Oscar GAO Attending Clinician Unavailable Provider, Urgent Care Attending Clinician Unavailable Corazon [employer] INSTRUMENT MECHANIC, R Attending Clinician Nurse, Urgent Care Attending Clinician Unavailable Unknown Attending Clinician Unavailable UNKNOWN Attending Clinician Unavailable Miguel [employer] INSTRUMENT MECHANIC Attending Clinician ADUM, Sophia Admitting Clinician Unavailable Payers Payer Name Policy Type Policy Number Effective Date Expiration Date [facility] [id number] 2019 CHOICE [place]ICAID 00:00:00 [place] [id number] 2016 HEALTH 00:00:00 MEDICAID PENDING PENDING 2019 00:00:00 Advance Directives Directive Decision Effective Termination Comments Source Date Date Healthcare Agents on N/A Univ ersity FileNameRelationshipHealthcare [facility] Agent Medical RelationshipCommunicationLinda Branch [facility] [phone] (Mobile) Problems Condition Condition Condition Status Onset Resolution Last Treating Co mments Source Name Details Category Date Date Treatment Clinician Date Normal Normal Disease Active 2020-02 Univers labor labor 0-19 ity of 00:00: [address] Disease Active 2020-02 Univers (normal (normal 0-19 [place] spont[place] 00 Medi gerri delivery) delivery) Bran ch History of History of Disease Active U nivers anxiety anxiety 2-23 ity of 00:00: [address] BMI BMI Disease Active Univers 32.0-32.9, 32.0-32.9, 2-23 it y of adult adult 00:00: [place] [facility] Former Former Disease Active Univers smoker smoker 2-23 ity of 00:: [place] [facility] History of History of Disease Active U nivers 2-23 ity of delivery delivery 00:00: [place] [facility] History of History of Disease Active U nivers 2-23 ity of premature premature 00:00: [place] rupture of rupture of 00 Me dical membranes membranes Bran ch (PROM) in (PROM) in previous previous , , currently currently in first in first trimester trimester Vaginal Vaginal Disease Active Univers bleeding bleeding 2-23 ity of in in 00:: [place] , , 00 Me dical first first Branch trimester trimester Pain Pain Disease Active Univers pelvic pelvic 2-23 ity of 00:: [place] [facility] Chest Chest Disease Active Univers pain, pain, 8-12 ity of atypical atypical 00:00: [place] [address] Medical Branch 39 weeks 39 weeks Disease Active Unive rs gestation gestation 3-12 ity of of of 00:00: [place] 00 [facility] Branch Supervisio Supervisio Disease Active U nivers n of high n of high 1-03 ity of risk risk 00:00: [place] 00 [facility] in first in first Branch trimester trimester Multiparit Multiparit Disease Active 2016- U nivers y y 8-22 ity of 00:: [place] [facility] Obesity in Obesity in Disease Active 2017- U nivers 8-22 ity of 00:00: [place] [facility] Papanicola Papanicola Disease Active 2015-0 U nivers ou smear ou smear 7-24 ity of of cervix of [place] low with low 00 Medica 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) Allergies, Adverse Reactions, Alerts Allergy Allergy Status Severity Reaction(s) Onset Inactive Treating Comm ents Source Name Type Date Date Clinician No Known DA Active U [facility] Allergie 7-15 Clear s 00:00: [address] No Known DA Active U 2012- [facility] Allergie 0-06 Clear s 00:00: [place] 00 [facility] NO KNOWN Drug Active Univers ALLERGIE Class ity of S [facility] Social History Social Habit Start Date Stop Date Quantity Comments Source ASSERTION 2020-03-08 University 00:00:00 [facility] Exposure to Not sure University SARS-CoV-2 (event) [facility] Alcohol intake 2021-03-27 2021-03-27 Ex-drinker University 00:00:00 00:00:00 (finding) [facility] Education 2020-11-25 2020-11-25 13 University 00:00:00 00:00:00 [facility] Tobacco Comment 2020-04-01 2020-04-01 smokes 4 x Universit y of 00:00:00 00:00:00 socially - [facility] stopped smoking Branch 2 weeks ago Alcohol Comment 2020-04-01 2020-04-01 socially Universit y of 00:00:00 00:00:00 [facility] Branch History SDOH 2020-04-01 2020-04-01 99 University o f Alcohol [facility]:00[facility] 2020-04-01 2020-04-01 99 University o f Alcohol Std Drinks 00:00:00 00:00:00 [facility] History SDOH 2020-04-01 2020-04-01 99 University o f Alcohol Binge 00:00:00 00:00:00 [facility] al Branch Cigarettes smoked 2016-09-28 2016-09-28 Univers ity of current (pack per 00:00:00 00:00:00 [facility] edical day) - Reported Branch Cigarette 2016-09-28 2016-09-28 University of pack-years 00:00:00 00:00:00 [facility] Tobacco use and 2016-09-28 2016-09-28 Never used Universit y of exposure 00:00:00 00:00:00 [facility] History of tobacco 2016-08-28 Cigarette Smoker University of use 00:00:00 [facility] Sex [birth year] At [birth year] Universit y of 00:00:00 00:00:00 [facility] Smoking Status Start Date Stop Date Source Former smoker 2016-09-28 00:00:00 2016-09-28 00:00:00 [facility] Medical Branch Medications Ordered Filled Start Stop Current Ordering Indication Dosage Frequency Signature Comments Components Source Medication Medication Date Date Medication? Clinician (SIG) Name Name amoxicillin Yes [id number] 500mg Take 1 Univers 500 mg 2-18 capsule by ity of capsule 00:00: mouth 3 [place] 00 (three) Medical times Branch daily. ibuprofen Yes [id number] 800mg Take 1 U nivers 800 mg 2-18 tablet by ity of tablet 00:00: mouth [place] 00 every 8 Medical (eight) Branch hours as needed for Pain (scale 4-6) or Temp > 38.5 C. traMADoL Yes [id number] 50mg Take 1 Univers (ULTRAM) 50 2-18 tablet by ity of mg tablet 00:00: mouth [place] 00 every 6 Medical (six) Branch hours as needed for Pain (scale 7-10). Indication s: acute pain traMADoL 2021- No [id number] 50mg Take 1 Univer s (ULTRAM) 50 2-18 02-18 tablet by it y of mg tablet 00:00: 00:00 mouth [place] 00 :00 every 6 Medical (six) Branch hours as needed for Pain (scale 7-10). Indication s: acute pain amoxicillin 2021- No [id number] 500mg Take 1 Univers 500 mg 2-18 02-18 capsule by ity of capsule 00:00: 00:00 mouth 3 [place] 00 :00 (three) Medical times Branch daily. ibuprofen 2021- No [id number] 800mg Take 1 Univers 800 mg 2-18 02-18 tablet by ity of tablet 00:00: 00:00 mouth [place] 00 :00 every 8 Medical (eight) Branch hours as needed for Pain (scale 4-6). amoxicillin 2021- No [id number] 500mg Take 1 Univers 500 mg 2-18 02-18 capsule by ity of capsule 00:00: 00:00 mouth 3 [place] 00 :00 (three) Medical times Branch daily. ibuprofen 2021- No [id number] 800mg Take 1 Univers 800 mg 2-18 02-18 tablet by ity of tablet 00:00: 00:00 mouth [place] 00 :00 every 8 Medical (eight) Branch hours as needed for Pain (scale 4-6). traMADoL 2021- No [id number] 50mg Take 1 Univer s (ULTRAM) 50 2-18 -18 tablet by it y of mg tablet 00:00: 00:00 mouth [place] 00 :00 every 6 Medical (six) Branch hours as needed for Pain (scale 7-10). Indication s: acute pain amoxicillin 2021- No [id number] 500mg Take 1 Univers 500 mg 2-18 -18 capsule by ity of capsule 00:00: 00:00 mouth 3 [place] 00 :00 (three) Medical times Branch daily. traMADoL 2021- No [id number] 50mg Take 1 Univer s (ULTRAM) 50 218 - tablet by it y of mg tablet 00:00: 00:00 mouth [place] 00 :00 every 6 Medical (six) Branch hours as needed for Pain (scale 7-10). Indication s: acute pain ibuprofen 2021- No [id number] 800mg Take 1 Univers 800 mg 218 -18 tablet by ity of tablet 00:00: 00:00 mouth [place] 00 :00 every 8 Medical (eight) Branch hours as needed for Pain (scale 4-6). docusate 2020-02 Yes [id number] 240mg Take 1 Un rand calcium 240 0-21 capsule by it y of mg capsule 00:00: mouth [place] 00 daily as Medical needed for Branch Constipati on. ferrous 2020-02 Yes [id number] 325mg Take 1 Uni vers sulfate 325 0-21 tablet by ity of mg (65 mg 00:00: mouth 2 [place] iron) 00 (two) Medical tablet times Branch daily. ibuprofen 2020-02 Yes [id number] 600mg Take 1 U nivers 600 mg 0-21 tablet by ity of tablet 00:00: mouth [place] 00 every 6 Medical (six) Branch hours as needed (Pain). Take with food or milk. docusate 2020-02 Yes [id number] 240mg Take 1 Un rand calcium 240 0-21 capsule by it y of mg capsule 00:00: mouth [place] 00 daily as Medical needed for Branch Constipati on. ferrous 2020-02 Yes [id number] 325mg Take 1 Uni vers sulfate 325 0-21 tablet by ity of mg (65 mg 00:00: mouth 2 [place] iron) 00 (two) Medical tablet times Branch daily. ibuprofen 2020-02- No [id number] 600mg Take 1 Univers 600 mg 0-21 [...] 11:47 INTRA [place] W/EPINEPHRI 00 :04 PROCEDURE, Sc dicri NE) 1.5 Starting Branch %-1:200,000 on Tue injection 11/25/20 at 2049, Until 11/26/20 at 0647, Routine, Intra-op hydrOXYzine 0 Yes [id number] 25mg Take 1 Univers 25 mg 7-22 tablet by ity of tablet 00:00: mouth [place] 00 every 6 Medical (six) Branch hours as needed for Itching or Anxiety. hydrOXYzine 0 Yes [id number] 25mg Take 1 Univers 25 mg 7-22 tablet by ity of tablet 00:00: mouth [place] 00 every 6 Medical (six) Branch hours as needed for Itching or Anxiety. hydrOXYzine 0 Yes [id number] 25mg Take 1 Univers 25 mg 7-22 tablet by ity of tablet 00:00: mouth [place] 00 every 6 Medical (six) Branch hours as needed for Itching or Anxiety. hydrOXYzine 0 Yes [id number] 25mg Take 1 Univers 25 mg 7-22 tablet by ity of tablet 00:00: mouth [place] 00 every 6 Medical (six) Branch hours as needed for Itching or Anxiety. hydrOXYzine 2021-0 Yes [id number] 25mg Take 1 Univers 25 mg 7-22 tablet by ity of tablet 00:00: mouth [place] 00 every 6 Medical (six) Branch hours as needed for Itching or Anxiety. hydrOXYzine 0 Yes [id number] 25mg Take 1 Univers 25 mg 7-22 tablet by ity of tablet 00:00: mouth [place] 00 every 6 Medical (six) Branch hours as needed for Itching or Anxiety. hydrOXYzine Yes [id number] 25mg Take 1 Univers 25 mg 7-22 tablet by ity of tablet 00:00: mouth [place] 00 every 6 Medical (six) Branch hours as needed for Itching or Anxiety. hydrOXYzine 2020- No [id number] 25mg Take 1 Univers 25 mg 7-22 09-09 tablet by ity of tablet 00:00: 00:00 mouth [place] 00 :00 every 6 Medical (six) Branch hours as needed for Itching or Anxiety. hydrOXYzine 2020- No [id number] 25mg Take 1 Univers 25 mg 7-22 [...] mg -250 mg combo pack fluticasone Yes [id number] 1{spray Use 1 Univers propionate 4-27 } [place] in ity o f 50 00:00: each [place] mcg/actuati 00 nostril 2 Med ical on nasal (two) Branch spray times daily. fluticasone Yes [id number] 1{spray Use 1 Univers propionate 4-27 } [place] in ity o f 50 00:00: each [place] mcg/actuati 00 nostril 2 Med ical on nasal (two) Branch spray times daily. fluticasone Yes [id number] 1{spray Use 1 Univers propionate 4-27 } [place] in ity o f 50 00:00: each [place] mcg/actuati 00 nostril 2 Med ical on nasal (two) Branch spray times daily. fluticasone 0 Yes [id number] 1{spray Use 1 Univers propionate 4-27 } [place] in it o 50 00:00: each [place] mcg/actuati 00 nostril 2 Med ical on nasal (two) Branch spray times daily. fluticasone 0 Yes [id number] 1{spray Use 1 Univers propionate 4-27 } [place] in it o 50 00:00: each [place] mcg/actuati 00 nostril 2 Med ical on nasal (two) Branch spray times daily. fluticasone 0 Yes [id number] 1{spray Use 1 Univers propionate 4-27 } [place] in it o 50 00:00: each [place] mcg/actuati 00 nostril 2 Med ical on nasal (two) Branch spray times daily. fluticasone 0 Yes [id number] 1{spray Use 1 Univers propionate 4-27 } [place] in it o [facility] 00:00: each [place] mcg/actuati 00 nostril 2 Med ical on nasal (two) Branch spray times daily. fluticasone 0 Yes [id number] 1{spray Use 1 Univers propionate 4-27 } [place] in it o 50 00:00: each [place] mcg/actuati 00 nostril 2 Med ical on nasal (two) Branch spray times daily. fluticasone 0 Yes [id number] 1{spray Use 1 Univers propionate 4-27 } [place] in it o 50 00:00: each [place] mcg/actuati 00 nostril 2 Med ical on nasal (two) Branch spray times daily. fluticasone 0 Yes [id number] 1{spray Use 1 Univers propionate 4-27 } [place] in it o 50 00:00: each [place] mcg/actuati 00 nostril 2 Med ical on nasal (two) Branch spray times daily. fluticasone 2020-0 Yes [id number] 1{spray Use 1 Univers propionate 4-27 } [place] in it o f 50 00:00: each [place] mcg/actuati 00 nostril 2 Med ical on nasal (two) Branch spray times daily. fluticasone 2020-0 Yes [id number] 1{spray Use 1 Univers propionate 27 } [place] in ity o f 50 00:00: each [place] mcg/actuati 00 nostril 2 Med ical on nasal (two) Branch spray times daily. fluticasone 2020- No [id number] 1{spray Use 1 Univers propionate 427 07-21 } [place] in ity of 50 00:00: 00:00 each [place] mcg/actuati 00 :00 nostril 2 Med ical on nasal (two) Branch spray times daily. cephALEXin 2020- No 500mg Take 500 U nivers 500 mg 4-06 04-06 mg by ity of capsule 15:16: 00:00 mouth 2 [place] 58 :00 (two) Medical times Branch daily. [...] by ity of capsule 15:47: mouth 2 [place] [address] (two) Medical times Branch daily. cephALEXin 2020-0 Yes 500mg Take 500 Un rand 500 mg 2-23 mg by ity of capsule 15:47: mouth 2 [place] [address] (two) Medical times Branch daily. cephALEXin 2021-0 Yes 500mg Take 500 Un rand 500 mg 2-23 mg by ity of capsule 15:47: mouth 2 [place] [address] (two) Medical times Branch daily. cephALEXin 2021-0 Yes 500mg Take 500 Un [place] 500 mg 2-23 mg by ity of capsule 15:47: mouth 2 [place] [address] (two) Medical times Branch daily. cephALEXin 2020-0 Yes 500mg Take 500 Un [place] 500 mg 2-23 mg by ity of capsule 15:47: mouth 2 [place] [address] (two) Medical times Branch daily. cephALEXin 1-0 Yes 500mg Take 500 Un [place] 500 mg 2-23 mg by ity of capsule 15:47: mouth 2 [place] 56 (two) Medical times Branch daily. cephALEXin 2021-0 Yes 500mg Take 500 Un rand 500 mg 2-23 mg by ity of capsule 15:47: mouth 2 [place] 56 (two) Medical times Branch daily. cephALEXin 1-0 Yes 500mg Take 500 Un [place] 500 mg 2-23 mg by ity of capsule 15:47: mouth 2 [place] [address] (two) Medical times Branch daily. cephALEXin 1-0 Yes 500mg Take 500 Un [place] 500 mg 2-23 mg by ity of capsule 15:47: mouth 2 [place] [address] (two) Medical times Branch daily. cephALEXin 1-0 Yes 500mg Take 500 Un [place] 500 mg 2-23 mg by ity of capsule 15:47: mouth 2 [place] [address] (two) Medical times Branch daily. Yes [id number] 1{packe Take 1 Univers vit 2-23 t} Packet by ity of 33-iron-fol 00:00: mouth [place] ic-dha 00 daily. Medical (SELECT-OB Branch + DHA) 29 mg iron-1 mg -250 mg combo pack Yes [id number] 1{packe Take 1 Univers vit 2-23 t} Packet by ity of 33-iron-fol 00:00: mouth [place] ic-dha 00 daily. Medical (SELECT-OB Branch + DHA) 29 mg iron-1 mg -250 mg combo pack Yes [id number] 1{packe Take 1 Univers vit 2-23 t} Packet by ity of 33-iron-fol 00:00: mouth [place] ic-dha 00 daily. Medical (SELECT-OB Branch + DHA) 29 mg iron-1 mg -250 mg combo pack Yes [id number] 1{packe Take 1 Univers vit 2-23 t} Packet by ity of 33-iron-fol 00:00: mouth [place] ic-dha 00 daily. Medical (SELECT-OB Branch + DHA) 29 mg iron-1 mg -250 mg combo pack Yes [id number] 1{packe Take 1 Univers vit 2-23 t} Packet by ity of 33-iron-fol 00:00: mouth [place] ic-dha 00 daily. Medical (SELECT-OB Branch + DHA) 29 mg iron-1 mg -250 mg combo pack Yes [id number] 1{packe Take 1 Univers vit 2-23 t} Packet by ity of 33-iron-fol 00:00: mouth [place] ic-dha 00 daily. Medical (SELECT-OB Branch + DHA) 29 mg iron-1 mg -250 mg combo pack Yes [id number] 1{packe Take 1 Univers vit 2-23 t} Packet by ity of 33-iron-fol 00:00: mouth [place] ic-dha daily. Medical (SELECT-OB Branch + DHA) 29 mg iron-1 mg -250 mg combo pack Yes [id number] 1{packe Take 1 Univers vit 2-23 t} Packet by ity of 33-iron-fol 00:00: mouth [place] ic-dha daily. Medical (SELECT-OB Branch + DHA) 29 mg iron-1 mg -250 mg combo pack Yes [id number] 1{packe Take 1 Univers vit 2-23 t} Packet by ity of 33-iron-fol 00:00: mouth [place] ic-dha daily. Medical (SELECT-OB Branch + DHA) 29 mg iron-1 mg -250 mg combo pack Yes [id number] 1{packe Take 1 Univers vit 2-23 t} Packet by ity of 33-iron-fol 00:00: mouth [place] ic-dha daily. Medical (SELECT-OB Branch + DHA) 29 mg iron-1 mg -250 mg combo pack Yes [id number] 1{packe Take 1 Univers vit 2-23 t} Packet by ity of 33-iron-fol 00:00: mouth [place] ic-dha 00 daily. Medical (SELECT-OB Branch + DHA) 29 mg iron-1 mg -250 mg combo pack Yes [id number] 1{packe Take 1 Univers vit 2-23 t} Packet by ity of 33-iron-fol 00:00: mouth [place] ic-dha 00 daily. Medical (SELECT-OB Branch + DHA) 29 mg iron-1 mg -250 mg combo pack Yes [id number] 1{packe Take 1 Univers vit 2-23 t} Packet by ity of 33-iron-fol 00:00: mouth [place] ic-dha 00 daily. Medical (SELECT-OB Branch + DHA) 29 mg iron-1 mg -250 mg combo pack Yes [id number] 1{packe Take 1 Univers vit 2-23 t} Packet by ity of 33-iron-fol 00:00: mouth [place] ic-dha 00 daily. Medical (SELECT-OB Branch + DHA) 29 mg iron-1 mg -250 mg combo pack Yes [id number] 1{packe Take 1 Univers vit 2-23 t} Packet by ity of 33-iron-fol 00:00: mouth [place] ic-dha 00 daily. Medical (SELECT-OB Branch + DHA) 29 mg iron-1 mg -250 mg combo pack Yes [id number] 1{packe Take 1 Univers vit 2-23 t} Packet by ity of 33-iron-fol 00:00: mouth [place] ic-dha 00 daily. Medical (SELECT-OB Branch + DHA) 29 mg iron-1 mg -250 mg combo pack Yes [id number] 1{packe Take 1 Univers vit 2-23 t} Packet by ity of 33-iron-fol 00:00: mouth [place] ic-dha 00 daily. Medical (SELECT-OB Branch + DHA) 29 mg iron-1 mg -250 mg combo pack Yes [id number] 1{packe Take 1 Univers vit 2-23 t} Packet by ity of 33-iron-fol 00:00: mouth [place] ic-dha 00 daily. Medical (SELECT-OB Branch + DHA) 29 mg iron-1 mg -250 mg combo pack Yes [id number] 1{packe Take 1 Univers vit 2-23 t} Packet by ity of 33-iron-fol 00:00: mouth [place] ic-dha 00 daily. Medical (SELECT-OB Branch + DHA) 29 mg iron-1 mg -250 mg combo pack Yes [id number] 1{packe Take 1 Univers vit 2-23 t} Packet by ity of 33-iron-fol 00:00: mouth [place] ic-dha 00 daily. Medical (SELECT-OB Branch + DHA) 29 mg iron-1 mg -250 mg combo pack Yes [id number] 1{packe Take 1 Univers vit 2-23 t} Packet by ity of 33-iron-fol 00:00: mouth [place] ic-dha 00 daily. Medical (SELECT-OB Branch + DHA) 29 mg iron-1 mg -250 mg combo pack Yes [id number] 1{packe Take 1 Univers vit 2-23 t} Packet by ity of 33-iron-fol 00:00: mouth [place] ic-dha 00 daily. Medical (SELECT-OB Branch + DHA) 29 mg iron-1 mg -250 mg combo pack Yes [id number] 1{packe Take 1 Univers vit 2-23 t} Packet by ity of 33-iron-fol 00:00: mouth [place] ic-dha 00 daily. Medical (SELECT-OB Branch + DHA) 29 mg iron-1 mg -250 mg combo pack 2020- No [id number] 1{packe Take 1 Univers vit 2-23 07-21 t} Packet by ity of 33-iron-fol 00:00: 00:00 mouth [place] ic-dha 00 :00 daily. Medical (SELECT-OB Branch + DHA) 29 mg iron-1 mg -250 mg combo pack cyclobenzap 2020-0 Yes [id number] 5mg Take 1 Univers rine 5 mg 8-14 4 tablet by ity o f tablet 00:00: mouth 2 (two) Medical times Branch daily as needed for Muscle Spasms. Can cause drowsiness . cyclobenzap 2020-0 Yes [id number] 5mg Take 1 Univers rine 5 mg 8-14 4 tablet by ity o f tablet 00:00: mouth 2 [place] 00 (two) Medical times Branch daily as needed for Muscle Spasms. Can cause drowsiness . cyclobenzap 2020-0 Yes [id number] 5mg Take 1 Univers rine 5 mg 8-14 4 tablet by ity o f tablet 00:00: mouth 2 [place] 00 (two) Medical times Branch daily as needed for Muscle Spasms. Can cause drowsiness . cyclobenzap 2020-0 Yes [id number] 5mg Take 1 Univers rine 5 mg 8-14 4 tablet by ity o f tablet 00:00: mouth 2 00 (two) Medical times Branch daily as needed for Muscle Spasms. Can cause drowsiness . cyclobenzap 2020-0 Yes [id number] 5mg Take 1 Univers rine 5 mg 8-14 4 tablet by ity o f tablet 00:00: mouth 2 [place] 00 (two) Medical times Branch daily as needed for Muscle Spasms. Can cause drowsiness . cyclobenzap 2020-0 Yes [id number] 5mg Take 1 Univers rine 5 mg 8-14 4 tablet by ity o f tablet 00:00: mouth 2 00 (two) Medical times Branch daily as needed for Muscle Spasms. Can cause drowsiness . cyclobenzap 2020- No [id number] 5mg Take 1 Univers rine 5 mg 8-14 02-23 4 tablet by ity of tablet 00:00: 00:00 mouth 2 [place] 00 :00 (two) Medical times Branch daily as needed for Muscle Spasms. Can cause drowsiness . cyclobenzap 2020- No [id number] 5mg Take 1 Univers rine 5 mg 8-14 02-23 4 tablet by ity of tablet 00:00: 00:00 mouth 2 [place] 00 :00 (two) Medical times Branch daily as needed for Muscle Spasms. Can cause drowsiness . gabapentin 2020-0 Yes [id number] 100mg Take 1 Univers 100 mg 8-12 capsule by ity of capsule 00:00: mouth 3 (three) Medical times Branch daily as needed (nerve pain). gabapentin 2020-0 Yes [id number] 100mg Take 1 Univers 100 mg 8-12 capsule by ity of capsule 00:00: mouth 3 (three) Medical times Branch daily as needed (nerve pain). gabapentin 2020-0 Yes [id number] 100mg Take 1 Univers 100 mg 8-12 capsule by ity of capsule 00:00: mouth 3 (three) Medical times Branch daily as needed (nerve pain). gabapentin 2020-0 Yes [id number] 100mg Take 1 Univers 100 mg 8-12 capsule by ity of capsule 00:00: mouth 3 (three) Medical times Branch daily as needed (nerve pain). gabapentin 2020-0 Yes [id number] 100mg Take 1 Univers 100 mg 8-12 capsule by ity of capsule 00:00: mouth (three) Medical times Branch daily as needed (nerve pain). gabapentin 2020-0 Yes [id number] 100mg Take 1 Univers 100 mg 8-12 capsule by ity of capsule 00:00: mouth (three) Medical times Branch daily as needed (nerve pain). gabapentin 2020-0 Yes [id number] 100mg Take 1 Univers 100 mg 8-12 capsule by ity of capsule 00:00: mouth (three) Medical times Branch daily as needed (nerve pain). gabapentin 2020-0 Yes [id number] 100mg Take 1 Univers 100 mg 8-12 capsule by ity of capsule 00:00: mouth (three) Medical times Branch daily as needed (nerve pain). gabapentin 2020-0 Yes [id number] 100mg Take 1 Univers 100 mg 8-12 capsule by ity of capsule 00:00: mouth (three) Medical times Branch daily as needed (nerve pain). gabapentin 2020-0 Yes [id number] 100mg Take 1 Univers 100 mg 8-12 capsule by ity of capsule 00:00: mouth (three) Medical times Branch daily as needed (nerve pain). gabapentin 2020-0 Yes [id number] 100mg Take 1 Univers 100 mg 8-12 capsule by ity of capsule 00:00: mouth (three) Medical times Branch daily as needed (nerve pain). gabapentin 2020-0 Yes [id number] 100mg Take 1 Univers 100 mg 8-12 capsule by ity of capsule 00:00: mouth (three) Medical times Branch daily as needed (nerve pain). gabapentin 2020-0 Yes [id number] 100mg Take 1 Univers 100 mg 8-12 capsule by ity of capsule 00:00: mouth (three) Medical times Branch daily as needed (nerve pain). gabapentin 2020-0 2021- No [id number] 100mg Take 1 Univers 100 mg 8-12 02-23 capsule by ity of capsule 00:00: 00:00 mouth 3 00 :00 (three) Medical times Branch daily as needed (nerve pain). gabapentin 2020-0 2021- No [id number] 100mg Take 1 Univers 100 mg 8-12 02-23 capsule by ity of capsule 00:00: 00:[address] [place] [address] 00 :00 (three) Medical times Branch daily as needed (nerve pain). LORazepam Yes Univers 0.5 mg 7-17 ity of tablet 00:00: [place] 00 Medical Branch LORazepam 2020- No TWICE Univer s 0.5 mg 17 -21 DAILY ity of tablet 00:00: 00:00 00 :00 [facility] Branch metoprolol 2020- No TWICE Unive rs tartrate 50 08-23-21 DAILY ity of mg tablet 00:00: 00:00 [place] 00 :00 [facility] LORazepam 2019- No Univers 0.5 mg 08-23 08-12 ity of tablet 00:00: 00:00 [place] 00 :00 [facility] LORazepam 2019- No Univers 0.5 mg 17 08-12 ity of tablet 00:00: 00:00 [place] 00 :00 Medical Branch SERTraline 2019- No [id number] 50mg Take 1 Univers (ZOLOFT) 50 7-16 08-16 tablet by it y of mg tablet 00:00: 04:59 mouth [place] 00 :00 daily for Medical 30 days. Branch SERTraline 2019- No [id number] 50mg Take 1 Univers (ZOLOFT) 50 7-16 08-16 tablet by it y of mg tablet 00:00: 04:59 mouth [place] 00 :00 daily for Medical 30 days. Branch SERTraline 2019- No [id number] 50mg Take 1 Univers (ZOLOFT) 50 7-16 08-16 tablet by it y of mg tablet 00:00: 04:59 mouth [place] 00 :00 daily for Medical 30 days. Branch SERTraline 2019- No [id number] 50mg Take 1 Univers (ZOLOFT) 50 7-16 08-12 tablet by it y of mg tablet 00:00: 00:00 mouth [place] 00 :00 daily for Medical 30 days. Branch SERTraline 2020- No [id number] 50mg Take 1 Univers (ZOLOFT) 50 7-16 [...] TIMES A Medical DAY Branch NEEDED hydrOXYzine 2020-0 2020- No [id number] 10mg Take 1 Univers 10 mg 7-15 07-26 tablet by ity of tablet 00:00: 04:59 mouth [place] 00 :00 every 6 Medical (six) Branch hours for 10 days. hydrOXYzine 2020-0 2020- No [id number] 10mg Take 1 Univers 10 mg 7-15 07-26 tablet by ity of tablet 00:00: 04:59 mouth [place] 00 :00 every 6 Medical (six) Branch hours for 10 days. hydrOXYzine 2020-0 2020- No [id number] 10mg Take 1 Univers 10 mg 7-15 07-26 tablet by ity of tablet 00:00: 04:59 mouth [place] 00 :00 every 6 Medical (six) Branch hours for 10 days. albuterol 2020-0 Yes [id number] 2.5mg Inhale 3 Univers 2.5 mg /3 7-12 mL every 4 ity of mL (0.083 00:00: (four) [place] %) 00 hours. May Medical nebulizer also Branch solution nebulize one extra every 6 hours. albuterol 2020-0 Yes [id number] 2{puff} Inhale 2 Univers 90 7-12 Puffs ity of mcg/actuati 00:00: every 4 [place] on inhaler 00 (four) Medical hours as Branch needed for Wheezing or Shortness of Breath. albuterol 2020-0 Yes [id number] 2.5mg Inhale 3 Univers 2.5 mg /3 7-12 mL every 4 ity of mL (0.083 00:00: (four) [place] %) 00 hours. May Medical nebulizer also Branch solution nebulize one extra every 6 hours. albuterol 2020-0 Yes [id number] 2{puff} Inhale 2 Univers 90 7-12 Puffs ity of mcg/actuati 00:00: every 4 [place] on inhaler 00 (four) Medical hours as Branch needed for Wheezing or Shortness of Breath. albuterol 2020-0 Yes [id number] 2.5mg Inhale 3 Univers 2.5 mg /3 7-12 mL every 4 ity of mL (0.083 00:00: (four) [place] %) 00 hours. May Medical nebulizer also Branch solution nebulize one extra every 6 hours. albuterol 2020-0 Yes [id number] 2{puff} Inhale 2 Univers 90 7-12 Puffs ity of mcg/actuati 00:00: every 4 [place] on inhaler 00 (four) Medical hours as Branch needed for Wheezing or Shortness of Breath. albuterol 2020-0 Yes [id number] 2.5mg Inhale 3 Univers 2.5 mg /3 7-12 mL every 4 ity of mL (0.083 00:00: (four) [place] %) 00 hours. May Medical nebulizer also Branch solution nebulize one extra every 6 hours. albuterol 2020-0 Yes [id number] 2{puff} Inhale 2 Univers 90 7-12 Puffs ity of mcg/actuati 00:00: every 4 [place] on inhaler 00 (four) Medical hours as Branch needed for Wheezing or Shortness of Breath. albuterol 2020-0 Yes [id number] 2.5mg Inhale 3 Univers 2.5 mg /3 7-12 mL every 4 ity of mL (0.083 00:00: (four) [place] %) 00 hours. May Medical nebulizer also Branch solution nebulize one extra every 6 hours. albuterol 2020-0 Yes [id number] 2{puff} Inhale 2 Univers 90 7-12 Puffs ity of mcg/actuati 00:00: every 4 [place] on inhaler 00 (four) Medical hours as Branch needed for Wheezing or Shortness of Breath. albuterol 2020-0 Yes [id number] 2.5mg Inhale 3 Univers 2.5 mg /3 7-12 mL every 4 ity of mL (0.083 00:00: (four) [place] %) 00 hours. May Medical nebulizer also Branch solution nebulize one extra every 6 hours. albuterol 2020-0 Yes [id number] 2{puff} Inhale 2 Univers 90 7-12 Puffs ity of mcg/actuati 00:00: every 4 [place] on inhaler 00 (four) Medical hours as Branch needed for Wheezing or Shortness of Breath. albuterol 2019-0 Yes [id number] 2.5mg Inhale 3 Univers 2.5 mg /3 7-12 mL every 4 ity of mL (0.083 00:00: (four) [place] %) 00 hours. May Medical nebulizer also Branch solution nebulize one extra every 6 hours. albuterol 2019- Yes [id number] 2{puff} Inhale 2 Univers 90 7-12 Puffs ity of mcg/actuati 00:00: every 4 [place] on inhaler 00 (four) Medical hours as Branch needed for Wheezing or Shortness of Breath. albuterol 2020- No [id number] 2.5mg Inhale 3 Univers 2.5 mg /3 7-12 08-12 mL every 4 ity of mL (0.083 00:00: 00:00 (four) [place] %) 00 :00 hours. May Medical nebulizer also Branch solution nebulize one extra every 6 hours. albuterol 2020- No [id number] 2{puff} Inhale 2 Univers 90 7-12 08-12 Puffs ity of mcg/actuati 00:00: 00:00 every 4 [place] inhaler 00 :00 (four) Medical hours as Branch needed for Wheezing or Shortness of Breath. albuterol 2019- 2020- No [id number] 2.5mg Inhale 3 Univers 2.5 mg /3 7-12 08-12 mL every 4 ity of mL (0.083 00:00: 00:00 (four) [place] %) 00 :00 hours. May Medical nebulizer also Branch solution nebulize one extra every 6 hours. albuterol 2019- 2020- No [id number] 2{puff} Inhale 2 Univers 90 7-12 08-12 Puffs ity of mcg/actuati 00:00: 00:00 every 4 [place] inhaler 00 :00 (four) Medical hours as Branch needed for Wheezing or Shortness of Breath. FEMYNOR 2019- Yes 1{tbl} Take 1 Univer s 0.25-35 6-11 tablet by ity of mg-mcg per 00:00: mouth [place] tablet 00 daily. Medical Branch FEMYNOR 2019-0 Yes 1{tbl} Take 1 Univer s 0.25-35 [...] Take with food or milk. 2016-02 Yes [id number] 1{packe Take 1 Univers vit 0-05 t} Packet by ity of 33-iron-fol 00:00: mouth [place] ic-dha 00 daily. Medical (SELECT-[facility] Branch + DHA) 29 mg iron-1 mg -250 mg combo pack 2016-02 Yes [id number] 1{packe Take 1 Univers vit 0-05 t} Packet by ity of 33-iron-fol 00:00: mouth [place] ic-dha 00 daily. Medical (SELECT-[facility] Branch + DHA) 29 mg iron-1 mg -250 mg combo pack 2016-02 Yes [id number] 1{packe Take 1 Univers vit 0-05 t} Packet by ity of 33-iron-fol 00:00: mouth [place] ic-dha 00 daily. Medical (SELECT-[facility] Branch + DHA) 29 mg iron-1 mg -250 mg combo pack 2016-02 Yes [id number] 1{packe Take 1 Univers vit 0-05 t} Packet by ity of 33-iron-fol 00:00: mouth [place] ic-dha 00 daily. Medical (SELECT[facility] Branch + DHA) 29 mg iron-1 mg -250 mg combo pack 2016-02 Yes [id number] 1{packe Take 1 Univers vit 0-05 t} Packet by ity of 33-iron-fol 00:00: mouth [place] ic-dha 00 daily. Medical (SELECT-[facility] Branch + DHA) 29 mg iron-1 mg -250 mg combo pack 2016-02 Yes [id number] 1{packe Take 1 Univers vit 0-05 t} Packet by ity of 33-iron-fol 00:00: mouth [place] ic-dha 00 daily. Medical (SELECT-[facility] Branch + DHA) 29 mg iron-1 mg -250 mg combo pack 2016-02 Yes [id number] 1{packe Take 1 Univers vit 0-05 t} Packet by ity of 33-iron-fol 00:00: mouth [place] ic-dha 00 daily. Medical (SELECT-[facility] Branch + DHA) 29 mg iron-1 mg -250 mg combo pack 2016-02 Yes [id number] 1{packe Take 1 Univers vit 0-05 t} Packet by ity of 33-iron-fol 00:00: mouth [place] ic-dha 00 daily. Medical (SELECT-[facility] Branch + DHA) 29 mg iron-1 mg -250 mg combo pack 2016-02 2020- No [id number] 1{packe Take 1 Univers vit 0-05 08-12 t} Packet by ity of 33-iron-fol 00:00: 00:00 [place] ic-dha 00 :00 daily. Medical (SELECT-OB Branch + DHA) 29 mg iron-1 mg -250 mg combo pack 2016-02 2020- No [id number] 1{packe Take 1 Univers vit 0-05 08-12 t} Packet by ity of 33-iron-fol 00:00: 00:00 [place] ic-dha 00 :00 daily. Medical (SELECT-[facility] Branch + DHA) 29 mg iron-1 mg -250 mg combo pack Immunizations Ordered Filled Immunization Date Status Comments Sourc e Immunization Name Name TD 2020-09-15 Completed University of 00:00:00 [facility] TDAP 2020-09-15 Completed University of 00:00:00 [facility] TDAP 2020-09-15 Completed University of 00:00:00 [facility] TDAP 2020-09-15 Completed University of 00:00:00 [facility] TDAP 2020-09-15 Completed University of 00:00:00 [facility] TDAP 2020-09-15 Completed University of 00:00:00 [facility] TDAP 2020-09-15 Completed University of 00:00:00 [facility] TDAP 2020-09-15 Completed University of 00:00:00 [facility] TDAP 2020-09-15 Completed University of 00:00:00 [facility] TDAP 2020-09-15 Completed University of 00:00:00 [facility] TDAP 2020-09-15 Completed University of 00:00:00 [facility] TDAP 2020-09-15 Completed University of 00:00:00 [facility] TDAP 2017-02-09 Completed University of 00:00:00 [facility] TDAP 2017-02-09 Completed University of 00:00:00 [facility] TDAP 2017-02-09 Completed University of 00:00:00 [facility] TDAP 2017-02-09 Completed University of 00:00:00 [facility] TDAP 2017-02-09 Completed University of 00:00:00 [facility] TDAP 2017-02-09 Completed University of 00:00:00 [facility] TDAP 2017-02-09 Completed University of 00:00:00 [facility] TDAP 2017-02-09 Completed University of 00:00:00 [facility] TDAP 2017-02-09 Completed University of 00:00:00 [facility] TDAP 2017-02-09 Completed University of 00:00:00 [facility] TDAP 2017-02-09 Completed University of 00:00:00 [facility] TDAP 2017-02-09 Completed University of 00:00:00 [facility] TDAP 2017-02-09 Completed University of 00:00:00 [place] [facility] TDAP 2017-02-09 Completed University of 00:00:00 [place] [facility] TDAP 2017-02-09 Completed University of 00:00:00 [place] [facility] TDAP 2017-02-09 Completed University of 00:00:00 [place] [facility] TDAP 2017-02-09 Completed University of 00:00:00 [place] [facility] TDAP 2017-02-09 Completed University of 00:00:00 [place] [facility] TDAP 2017-02-09 Completed University of 00:00:00 [place] [facility] TDAP 2017-02-09 Completed University of 00:00:00 [place] [facility] TDAP 2017-02-09 Completed University of 00:00:00 [place] [facility] TDAP 2017-02-09 Completed University of 00:00:00 [place] [facility] TDAP 2017-02-09 Completed University of 00:00:00 [place] [facility] TDAP 2017-02-09 Completed University of 00:00:00 [place] [facility] TDAP 2017-02-09 Completed University of 00:00:00 [place] [facility] TDAP 2017-02-09 Completed University of 00:00:00 [place] [facility] TDAP 2017-02-09 Completed University of 00:00:00 [place] [facility] TDAP 2017-02-09 Completed University of 00:00:00 [place] [facility] TDAP 2017-02-09 Completed University of 00:00:00 [place] [facility] TDAP 2017-02-09 Completed University of 00:00:00 [place] [facility] TDAP 2017-02-09 Completed University of 00:00:00 [place] [facility] TDAP 2017-02-09 Completed University of 00:00:00 [place] [facility] TDAP 2017-02-09 Completed University of 00:00:00 [place] [facility] TDAP 2017-02-09 Completed University of 00:00:00 [place] [facility] TDAP 2017-02-09 Completed University of 00:00:00 [place] [facility] TDAP 2017-02-09 Completed University of 00:00:00 [place] [facility] TDAP 2017-02-09 Completed University of 00:00:00 [place] [facility] TDAP 2017-02-09 Completed University of 00:00:00 [place] [facility] TDAP 2017-02-09 Completed University of 00:00:00 [place] [facility] TDAP 2017-02-09 Completed University of 00:00:00 [place] [facility] TDAP 2017-02-09 Completed University of 00:00:00 [place] [facility] TDAP 2017-02-09 Completed University of 00:00:00 [place] [facility] TDAP 2017-02-09 Completed University of 00:00:00 [place] [facility] TDAP 2017-02-09 Completed University of 00:00:00 [place] [facility] TDAP 2017-02-09 Completed University of 00:00:00 [place] [facility] TDAP 2017-02-09 Completed University of 00:00:00 [place] [facility] TDAP 2017-02-09 Completed University of 00:00:00 [place] [facility] TDAP 2017-02-09 Completed University of 00:00:00 [place] [facility] TDAP 2017-02-09 Completed University of 00:00:00 [place] [facility] TDAP 2017-02-09 Completed University of 00:00:00 [place] [facility] TDAP 2017-02-09 Completed University of 00:00:00 [place] [facility] TDAP 2017-02-09 Completed University of 00:00:00 [place] [facility] TDAP 2017-02-09 Completed University of 00:00:00 [place] [facility] TDAP 2017-02-09 Completed University of 00:00:00 [place] [facility] TDAP 2017-02-09 Completed University of 00:00:00 [place] [facility] TDAP 2017-02-09 Completed University of 00:00:00 [place] [facility] TDAP 2017-02-09 Completed University of 00:00:00 [place] [facility] TDAP 2017-02-09 Completed University of 00:00:00 [facility] TDAP 2017-02-09 Completed University of 00:00:00 [facility] TDAP 2017-02-09 Completed University of 00:00:00 [place] [facility] TDAP 2017-02-09 Completed University of 00:00:00 [facility] TDAP 2007-02-07 Completed University of 00:00:00 [place] [facility] TDAP 2007-02-07 Completed University of 00:00:00 [place] [facility] TDAP 2007-02-07 Completed University of 00:00:00 [place] [facility] TDAP 2007-02-07 Completed University of 00:00:00 [place] [facility] TDAP 2007-02-07 Completed University of 00:00:00 [place] [facility] TDAP 2007-02-07 Completed University of 00:00:00 [place] [facility] TDAP 2007-02-07 Completed University of 00:00:00 [place] [facility] TDAP 2007-02-07 Completed University of 00:00:00 [facility] TDAP 2007-02-07 Completed University of 00:00:00 [facility] TDAP 2007-02-07 Completed University of 00:00:00 [facility] TDAP 2007-02-07 Completed University of 00:00:00 [facility] TDAP 2007-02-07 Completed University of 00:00:00 [facility] TDAP 2007-02-07 Completed University of 00:00:00 [facility] TDAP 2007-02-07 Completed University of 00:00:00 [facility] TDAP 2007-02-07 Completed University of 00:00:00 [facility] TDAP 2007-02-07 Completed University of 00:00:00 [facility] TDAP 2007-02-07 Completed University of 00:00:00 [facility] TDAP 2007-02-07 Completed University of 00:00:00 [facility] TDAP 2007-02-07 Completed University of 00:00:00 [facility] TDAP 2007-02-07 Completed University of 00:00:00 [facility] TDAP 2007-02-07 Completed University of 00:00:00 [facility] TDAP 2007-02-07 Completed University of 00:00:00 [facility] TDAP 2007-02-07 Completed University of 00:00:00 [facility] TDAP 2007-02-07 Completed University of 00:00:00 [facility] TDAP 2007-02-07 Completed University of 00:00:00 [facility] TDAP 2007-02-07 Completed University of 00:00:00 [facility] TDAP 2007-02-07 Completed University of 00:00:00 [facility] TDAP 2007-02-07 Completed University of 00:00:00 [facility] TDAP 2007-02-07 Completed University of 00:00:00 [facility] TDAP 2007-02-07 Completed University of 00:00:00 [facility] TDAP 2007-02-07 Completed University of 00:00:00 [facility] TDAP 2007-02-07 Completed University of 00:00:00 [facility] TDAP 2007-02-07 Completed University of 00:00:00 [facility] TDAP 2007-02-07 Completed University of 00:00:00 [facility] TDAP 2007-02-07 Completed University of 00:00:00 [facility] TDAP 2007-02-07 Completed University of 00:00:00 [facility] TDAP 2007-02-07 Completed University of 00:00:00 [facility] TDAP 2007-02-07 Completed University of 00:00:00 [facility] TDAP 2007-02-07 Completed University of 00:00:00 [facility] TDAP 2007-02-07 Completed University of 00:00:00 [facility] TDAP 2007-02-07 Completed University of 00:00:00 [facility] TDAP 2007-02-07 Completed University of 00:00:00 [facility] TDAP 2007-02-07 Completed University of 00:00:00 [facility] TDAP 2007-02-07 Completed University of 00:00:00 [facility] TDAP 2007-02-07 Completed University of 00:00:00 [facility] TDAP 2007-02-07 Completed University of 00:00:00 [facility] TDAP 2007-02-07 Completed University of 00:00:00 [facility] TDAP 2007-02-07 Completed University of 00:00:00 [facility] TDAP 2007-02-07 Completed University of 00:00:00 [facility] TDAP 2007-02-07 Completed University of 00:00:00 [facility] TDAP 2007-02-07 Completed University of 00:00:00 [facility] TDAP 2007-02-07 Completed University of 00:00:00 [facility] TDAP 2007-02-07 Completed University of 00:00:00 [facility] TDAP 2007-02-07 Completed University of 00:00:00 [facility] TDAP 2007-02-07 Completed University of 00:00:00 [facility] TDAP 2007-02-07 Completed University of 00:00:00 [facility] TDAP 2007-02-07 Completed University of 00:00:00 [facility] TDAP 2007-02-07 Completed University of 00:00:00 [facility] TDAP 2007-02-07 Completed University of 00:00:00 [facility] TDAP 2007-02-07 Completed University of 00:00:00 [facility] TDAP 2007-02-07 Completed University of 00:00:00 [facility] Vital Signs Vital Name Observation Time Observation Value Comments Source Respiratory rate 2021-03-27 09:38:51 18 /min [facility] Oxygen saturation in 2021-03-27 09:38:51 98 /min University Arterial blood by [facility] [place] [facility] Pulse oximetry Branch Systolic blood 2021-03-27 09:38:51 117 mm[Hg] Univer sity of pressure [place] [facility] Diastolic blood 2021-03-27 09:38:51 78 mm[Hg] Unive rsity of pressure [facility] Heart rate 2021-03-27 09:38:51 87 /min Universi ty of [facility] Body temperature 2021-03-27 08:49:00 36.89 [place] Univ ersity of [facility] Body height 2021-03-27 08:49:00 154.9 cm Universi ty of [facility] Body weight 2021-03-27 08:49:00 79.379 kg Universi ty of [facility] BMI 2021-03-27 08:49:00 33.07 kg/m2 Universi ty of [facility] Systolic blood 2020-10-16 19:34:00 104 mm[Hg] Univer sity of pressure [facility] Diastolic blood 2020-10-16 19:34:00 64 mm[Hg] Unive rsity of pressure [place] [facility] Heart rate 2020-10-16 19:34:00 95 /min Universi ty of [facility] Body temperature 2020-10-16 19:34:00 37.06 [place] Univ ersity of [facility] Respiratory rate 2020-10-16 19:34:00 18 /min Univ ersity of [facility] Body height 2020-10-16 19:34:00 154.9 cm Universi ty of [place] [facility] Body weight 2020-10-16 19:34:00 81.336 kg Universi ty of [place] [facility] BMI 2020-10-16 19:34:00 33.88 kg/m2 Universi ty of [facility] Systolic blood 2020-09-15 19:34:00 107 mm[Hg] Univer sity of pressure [facility] Diastolic blood 2020-09-15 19:34:00 67 mm[Hg] Unive rsity of pressure [place] [facility] Heart rate 2020-09-15 19:34:00 98 /min Universi ty of [facility] Body temperature 2020-09-15 19:34:00 37.17 [place] Univ ersity of [place] [facility] Respiratory rate 2020-09-15 19:34:00 16 /min Univ ersity of [place] [facility] Body height 2020-09-15 19:34:00 154.9 cm Universi ty of [place] [facility] Body weight 2020-09-15 19:34:00 80.922 kg Universi ty of [place] [facility] BMI 2020-09-15 19:34:00 33.71 kg/m2 Universi ty of [facility] Systolic blood 2020-08-28 19:23:00 109 mm[Hg] Univer sity of pressure [place] [facility] Diastolic blood 2020-08-28 19:23:00 70 mm[Hg] Unive rsity of pressure [place] [facility] Heart rate 2020-08-28 19:23:00 107 /min Universi ty of [place] [facility] Body temperature 2020-08-28 19:23:00 36.94 [place] [facility] ersity of [place] [facility] Respiratory rate 2020-08-28 19:23:00 18 /min Univ ersity of [place] [facility] Body height 2020-08-28 19:23:00 154.9 cm Universi ty of [place] [facility] Body weight 2020-08-28 19:23:00 79.379 kg Universi ty of [place] [facility] BMI 2020-08-28 19:23:00 33.07 kg/m2 Universi ty of [facility] Oxygen saturation in 2020-08-28 19:23:00 97 /min University Arterial blood by [facility] [place] [facility] Pulse oximetry Branch Systolic blood 2020-08-28 19:23:00 109 mm[Hg] Univer sity of pressure [place] [facility] Diastolic blood 2020-08-28 19:23:00 70 mm[Hg] Unive rsity of pressure [place] [facility] Heart rate 2020-08-28 19:23:00 107 /min Universi ty of [place] [facility] Body temperature 2020-08-28 19:23:00 36.94 [place] Univ ersity of [facility] Respiratory rate 2020-08-28 19:23:00 18 /min Univ ersity of [facility] Body height 2020-08-28 19:23:00 154.9 cm Universi ty of [place] [facility] Body weight 2020-08-28 19:23:00 79.379 kg Universi ty of [place] [facility] BMI 2020-08-28 19:23:00 33.07 kg/m2 Universi ty of [facility] Oxygen saturation in 2020-08-28 19:23:00 97 /min University Arterial blood by [facility] [place] [facility] Pulse oximetry Branch Systolic blood 2020-08-27 15:37:00 108 mm[Hg] Univer sity of pressure [facility] Diastolic blood 2020-08-27 15:37:00 71 mm[Hg] Unive rsity of pressure [place] [facility] [place] Heart rate 2020-08-27 15:37:00 90 /min Universi ty of [facility] Body temperature 2020-08-27 15:37:00 36.83 [place] Univ ersity of [facility] Respiratory rate 2020-08-27 15:37:00 16 /min Univ ersity of [facility] Body weight 2020-08-27 15:37:00 80.105 kg Universi ty of [facility] BMI 2020-08-27 15:37:00 32.83 kg/m2 Universi ty of [facility] Systolic blood 2020-08-27 15:37:00 108 mm[Hg] Univer sity of pressure [facility] Diastolic blood 2020-08-27 15:37:00 71 mm[Hg] Unive rsity of pressure [facility] Heart rate 2020-08-27 15:37:00 90 /min Universi ty of [facility] Body temperature 2020-08-27 15:37:00 36.83 [place] Univ ersity of [facility] Respiratory rate 2020-08-27 15:37:00 16 /min Univ ersity of [place] [facility] [place] Body weight 2020-08-27 15:37:00 80.105 kg Universi ty of [place] [facility] BMI 2020-08-27 15:37:00 32.83 kg/m2 Universi ty of [facility] Systolic blood 2020-07-30 15:52:00 103 mm[Hg] Univer sity of pressure [facility] Diastolic blood 2020-07-30 15:52:00 69 mm[Hg] Unive rsity of pressure [place] [facility] Heart rate 2020-07-30 15:52:00 89 /min Universi ty of [facility] Body temperature 2020-07-30 15:52:00 37.5 [place] Univ ersity of [place] [facility] Respiratory rate 2020-07-30 15:52:00 16 /min Univ ersity of [place] [facility] Body height 2020-07-30 15:52:00 156.2 cm Universi ty of [place] [facility] Body weight 2020-07-30 15:52:00 80.015 kg Universi ty of [place] [facility] BMI 2020-07-30 15:52:00 32.79 kg/m2 Universi ty of [facility] Systolic blood 2020-07-01 19:19:00 100 mm[Hg] Univer sity of pressure [facility] Diastolic blood 2020-07-01 19:19:00 62 mm[Hg] Unive rsity of pressure [facility] Heart rate 2020-07-01 19:19:00 79 /min [facility] Body temperature 2020-07-01 19:19:00 37.06 Brigitte Univ ersity [facility] Respiratory rate 2020-07-01 19:19:00 16 /min Univ ers[facility] Body height 2020-07-01 19:19:00 156.2 cm [facility] Body weight 2020-07-01 19:19:00 79.652 kg [facility] BMI 2020-07-01 19:19:00 32.64 kg/m2 [facility] Systolic blood 2020-06-17 13:54:00 105 mm[Hg] Univer sity of pressure [facility] Diastolic blood 2020-06-17 13:54:00 70 mm[Hg] Unive rsity of pressure [facility] Heart rate 2020-06-17 13:54:00 78 /min [facility] Body temperature 2020-06-17 13:54:00 36.94 Brigitte Univ [facility] Respiratory rate 2020-06-17 13:54:00 16 /min Univ ers[facility] Body height 2020-06-17 13:54:00 152.4 cm [facility] Body weight 2020-06-17 13:54:00 80.468 kg [facility] BMI 2020-06-17 13:54:00 34.65 kg/m2 [facility] Systolic blood 2020-06-04 03:00:00 125 mm[Hg] Univer sity of pressure [facility] Diastolic blood 2020-06-04 03:00:00 65 mm[Hg] Unive rsity of pressure [facility] Heart rate 2020-06-04 03:00:00 90 /min [facility] Body temperature 2020-06-04 03:00:00 36.89 Brigitte Univ [facility] Respiratory rate 2020-06-04 03:00:00 22 /min Univ [facility] Oxygen saturation in 2020-06-04 03:00:00 100 /min University of Arterial blood by [facility] Pulse oximetry Branch Body weight 2020-06-04 01:18:00 80.74 kg [facility] BMI 2020-06-04 01:18:00 33.63 kg/m2 [facility] Systolic blood 2020-05-13 15:04:00 103 mm[Hg] Univer sity of pressure [facility] Diastolic blood 2020-05-13 15:04:00 72 mm[Hg] Unive rsity of pressure [facility] Heart rate 2020-05-13 15:04:00 87 /min [facility] Body temperature 2020-05-13 15:04:00 36.83 Brigitte Univ [facility] Respiratory rate 2020-05-13 15:04:00 16 /min Univ [facility] Body height 2020-05-13 15:04:00 154.9 cm [facility] Body weight 2020-05-13 15:04:00 80.372 kg [facility] BMI 2020-05-13 15:04:00 33.48 kg/m2 [facility] Systolic blood 2020-04-03 07:04:39 114 mm[Hg] Univer sity of pressure [facility] Diastolic blood 2020-04-03 07:04:39 77 mm[Hg] Unive rsity of pressure [facility] Heart rate 2020-04-03 07:04:39 94 /min [facility] Respiratory rate 2020-04-03 07:04:39 15 /min Univ ers[facility] Oxygen saturation in 2020-04-03 07:04:39 100 /min University of Arterial blood by [facility] Pulse oximetry Branch Body temperature 2020-04-03 05:13:00 36.61 Brigitte Univ ersity of [facility] Body height 2020-04-03 05:13:00 154.9 cm [facility] Body weight 2020-04-03 05:13:00 83.915 kg Universi ty of [facility] BMI 2020-04-03 05:13:00 34.96 kg/m2 Universi ty of [facility] Systolic blood 2020-04-01 15:34:00 117 mm[Hg] Univer sity of pressure [facility] Diastolic blood 2020-04-01 15:34:00 81 mm[Hg] Unive rsity of pressure [facility] Heart rate 2020-04-01 15:34:00 101 /min Universi ty of [facility] Body temperature 2020-04-01 15:34:00 36.61 Brigitte Univ ersity of [facility] Respiratory rate 2020-04-01 15:34:00 16 /min Univ ersity of [facility] Body height 2020-04-01 15:34:00 152.4 cm [facility] Body weight 2020-04-01 15:34:00 83.093 kg Universi ty of [facility] BMI 2020-04-01 15:34:00 35.78 kg/m2 Universi ty of [facility] Systolic blood 2019-09-14 18:04:00 122 mm[Hg] Univer sity of pressure [facility] Diastolic blood 2019-09-14 18:04:00 81 mm[Hg] Unive rsity of pressure [facility] Heart rate 2019-09-14 18:04:00 94 /min Universi ty of [facility] Body temperature 2019-09-14 18:04:00 37.11 Brigitte Univ ersity of [facility] Respiratory rate 2019-09-14 18:04:00 18 /min Univ ersity of [facility] Body height 2019-09-14 18:04:00 152.4 cm [facility] Body weight 2019-09-14 18:04:00 81.647 kg [facility] BMI 2019-09-14 18:04:00 35.15 kg/m2 [facility] Oxygen saturation in 2019-09-14 18:04:00 97 /min University of Arterial blood by [facility] Pulse oximetry Branch Systolic blood 2019-08-23 20:22:00 110 mm[Hg] Univer sity of pressure [facility] Diastolic blood 2019-08-23 20:22:00 82 mm[Hg] Unive rsity of pressure [facility] Heart rate 2019-08-23 20:22:00 106 /min [facility] Body temperature 2019-08-23 20:22:00 37 Brigitte Univ [facility] Respiratory rate 2019-08-23 20:22:00 18 /min Univ [facility] Body height 2019-08-23 20:22:00 152.4 cm [facility] Body weight 2019-08-23 20:22:00 81.92 kg [facility] BMI 2019-08-23 20:22:00 35.27 kg/m2 [facility] Oxygen saturation in 2019-08-23 20:22:00 96 /min University of Arterial blood by [facility] Pulse oximetry Branch Systolic blood 2019-08-22 19:15:00 112 mm[Hg] Univer sity of pressure [facility] Diastolic blood 2019-08-22 19:15:00 93 mm[Hg] Unive rsity of pressure [facility] Heart rate 2019-08-22 19:14:00 97 /min [facility] Body temperature 2019-08-22 19:14:00 36.44 Brigitte Univ [facility] Respiratory rate 2019-08-22 19:14:00 16 /min Univ [facility] Body weight 2019-08-22 19:14:00 81.647 kg [facility] BMI 2019-08-22 19:14:00 34.01 kg/m2 [facility] Oxygen saturation in 2019-08-22 19:14:00 99 /min University of Arterial blood by [facility] Pulse oximetry Branch Systolic blood 2019-08-22 18:32:00 110 mm[Hg] Univer sity of pressure [facility] Diastolic blood 2019-08-22 18:32:00 73 mm[Hg] Unive rsity of pressure [facility] Heart rate 2019-08-22 18:32:00 98 /min [facility] Body temperature 2019-08-22 18:32:00 37.17 Brigitte [facility] Res[facility] rate 2019-08-22 18:32:00 16 /min Univ ersity of [facility] Body height 2019-08-22 18:32:00 154.9 cm [facility] Body weight 2019-08-22 18:32:00 82.464 kg [facility] BMI 2019-08-22 18:32:00 34.35 kg/m2 Universi ty of [facility] Oxygen saturation in 2019-08-22 18:32:00 100 /min University of Arterial blood by [facility] Pulse oximetry Branch Systolic blood 2019-08-20 01:55:00 117 mm[Hg] Univer sity of pressure [facility] Diastolic blood 2019-08-20 01:55:00 88 mm[Hg] [facility] Heart rate 2019-08-20 01:55:00 86 /min Universi ty of [facility] Body temperature 2019-08-20 01:55:00 37.56 Brigitte [facility] Respiratory rate 2019-08-20 01:55:00 22 /min [facility] Body height 2019-08-20 01:55:00 152.4 cm [facility] Body weight 2019-08-20 01:55:00 83.462 kg [facility] BMI 2019-08-20 01:55:00 35.94 kg/m2 Universi ty of [facility] Oxygen saturation in 2019-08-20 01:55:00 99 /min University of Arterial blood by [facility] Pulse oximetry Branch Procedures Procedure Date / Time Performing Clinician Source Performed CONSENT/REFUSAL FOR 2021-03-27 08:40:33 Doctor Unassigned, No [facility] DIAGNOSIS AND TREATMENT Name [facility] CENTRAL NEURAXIAL BLOCK 2020-11-26 02:06:09 Carine Smith [facility] POCT URINALYSIS 2020-10-16 19:37:00 Dany Carias [facility] STERILIZATION CONSENT 2020-10-16 05:01:00 Doctor Unassigned, No [facility] TDAP VACCINE, >11 YRS, 2020-09-15 19:37:56 Dany Carias [facility] POCT URINALYSIS 2020-09-15 19:36:00 Dany Carias [facility] XR CHEST 2 VW 2020-08-28 21:03:[facility] POCT GRP A STREP 2020-08-28 19:43:00 Vipul [facility] (MOLECULAR) [facility] POCT URINALYSIS 2020-08-27 16:49:00 Dany Carias [facility] ASSIGNMENT OF BENEFITS 2020-08-27 15:01:02 Doctor Unassigned, No [facility] POCT URINALYSIS 2020-07-30 16:02:00 Dany Carias [facility] POCT URINALYSIS 2020-07-01 19:24:00 Dany Carias [facility] POCT URINALYSIS 2020-06-17 13:56:00 Dany Carias [facility] RAPID STREP SCREEN FOR 2020-06-04 02:00:[address] [facility] GROUP A Medical Branch COVID-19 (ID NOW RAPID 2020-06-04 02:00:[address] [facility] TESTING) [facility] POCT URINALYSIS 2020-05-13 15:06:00 Dany Carias [facility] POCT TEST 2020-04-03 05:44:00 Yoshi Esparza [facility] URINALYSIS 2020-04-03 05:30:00 Yoshi Esparza [facility] POCT TEST 2020-04-01 15:37:00 Dany Carias [facility] POCT URINALYSIS 2020-04-01 15:36:00 Dany Carias [facility] ASSIGNMENT OF BENEFITS 2020-04-01 15:15:16 Doctor Unassigned, No [facility] [place] XR SPINE THORACIC 4 2019-09-21 17:31:22 Sandra Rodrichana A [facility] XR SPINE THORACIC 4 2019-09-21 17:31:22 Sandra Rodrie[facility]uterioful [facility] CERVICAL SPINE 4 2019-09-21 16:12:52 Sandra Rodrieleuterioful [facility] XR CERVICAL SPINE 4 2019-09-21 16:12:52 Christina [facility]ak[facility]ful [facility]ENEFITS 2019-09-20 14:56:33 Doctor Unassigned, No [facility] ASSIGNMENT OF BENEFITS 2019-08-20 01:45:49 Doctor Unassigned, No [facility] CONSENT/REFUSAL FOR 2019-08-20 01:44:04 Doctor Unassigned, No [facility] DIAGNOSIS AND TREATMENT [facility] Encounters Start End Encounter Admission Attending Care Care Encounter Source Date/Time Date/Time Type Type Clinicians Facility Department ID 2020-12-07 Emergency [facility] [id number] Univers 15:42:49 ity [facility] 2020-12-07 Emergency [facility] [id number] Univers 01:14:36 ity [facility] 2020-12-05 Emergency [facility] [id number] Univers 06:56:18 ity of [facility] 2020-12-05 Emergency [facility] [id number] Univers 06:14:29 ity [facility] 2019-08-22 Inpatient HCACL MALACHI [id number] [facility] 08:59:00 [id number] [facility] 2021-04-03 2021-04-03 Outpatient Jocelyn THAKKAR [facility] [id number] Univers 13:30:00 13:30:00 CHRISTINAFUL [id number] ity o f [facility] 2021-04-03 2021-04-03 Outpatient Jocelyn THAKKAR [facility] [id number] Univers 13:30:00 13:30:00 WONDIFUL ity o f [facility] 2021-04-02 2021-04-02 Outpatient Jocelyn THAKKAR [facility] [id number] Univers 11:00:00 11:00:00 WONDIFUL [id number] ity o f [facility] 2021-03-27 2021-03-27 Emergency X CAMRYN, [facility] ERT [id number] Univers 02:58:00 04:43:00 JOB ity [facility] 2021-03-27 2021-03-27 Emergency [facility] [id number] Univers 02:58:00 04:43:00 Job VÁSQUEZ [id number] ity of [place] [id number] [facility] 084 Branch 2021-03-27 2021-03-27 Orders Doctor KEARA 1.2.840.114 [id number] Univers 00:00:00 00:00:00 Only Unassigned, CASI 350.1.13.10 ity of [place] [facility] 4.2.7.2.686 Jaison as [phone] [facility] 009 Branch 2020-11-25 2020-11-27 Inpatient X ADUM, [facility] KYLE [id number] Univers 13:14:00 12:30:00 JIMENA [facility] 2020-11-26 2020-11-26 Outpatient INDUCTION, [facility] [id number] Univers 08:00:00 08:00:00 KEARA [id number] ity [facility] 2020-11-25 2020-11-26 [facility]est[facility] 1.2.840.114 [id number] Univers 20:45:00 00:47:00 Event Carine Del Toroton 350.1.13.10 i ty of [place] [id number] [facility] 083 Branch 2020-11-24 2020-11-24 Alexandra [facility] 1.2.840.114 [id number] Univers 00:00:00 00:00:00 Dany Banks SUBSCRIPTION AGENT 350.1.13.10 ity of [facility] 4.2.7.2.686 Jaison as MATERNAL [id number] Med ical & CHILD [address] [place] [address] 2020-11-20 2020-11-20 Outpatient Jocelyn SANCHEZ [facility] [id number] Univers 10:15:00 10:15:00 NORA [id number] [facility] 2020-11-20 2020-11-20 [facility] [id number] Univers 10:15:00 10:15:00 NORA isac [facility] 2020-11-17 2020-11-17 Telephone [facility] 1.2.840.114 [id number] Univers 00:00:00 00:00:00 Nora Montoya SUBSCRIPTION AGENT 350.1.13.10 it y of REGIONAL 4.2.7.2.686 Jaison as MATERNAL [id number] Med ical & CHILD [address] [place] [address] 2020-11-10 2020-11-10 [facility] [id number] Univers 10:30:00 10:30:00 NORA [id number] [facility] 2020-11-10 2020-11-10 [facility] [id number] Univers 10:30:00 10:30:00 NORA [facility] 2020-10-30 2020-10-30 Outpatient Jocelyn SANCHEZ [facility] [id number] Univers 12:45:00 12:45:00 NORA [id number] [facility] 2020-10-30 2020-10-30 [facility] [id number] Univers 12:45:00 12:45:00 NORA [facility] 2020-10-16 2020-10-16 Routine [facility] [id number] Univers 14:23:36 15:09:33 Nora Montoya SUBSCRIPTION AGENT 350.1.13.10 i ty of Visit REGIONAL 4.2.7.2.686 Jaison as MATERNAL [id number] [facility] & CHILD [address] [place] [address] 2020-10-16 2020-10-16 [facility] [id number] Univers 13:00:00 13:00:00 NORA [id number] [facility] 2020-10-16 2020-10-16 Outpatient Joc[facility] [id number] Univers 13:00:00 13:00:00 NORA vance [facility] 2020-10-16 2020-10-16 Orders Doctor KEARA 1.2.840.114 [id number] Univers 00:00:00 00:00:00 Only Unassigned, CASI 350.1.13.10 ity of [place] [facility] 4.2.7.2.686 Jaison as [id number] [address] 2020-10-15 2020-10-15 [facility]patient [facility] [id number] Univers 09:45:00 09:45:00 ROSBENJAMINNDA [id number] ity o [facility] 2020-10-15 2020-10-15 Outpatient [facility] [id number] Univers 09:45:00 09:45:00 NIALLA isac o [facility] 2020-10-07 2020-10-07 [facility] [id number] Univers 08:00:00 08:00:00 NORA [id number] pinky [facility] 2020-10-07 2020-10-07 Outpatient Jocelyn SANCHEZ [facility] [id number] Univers 08:00:00 08:00:00 NORA isac [facility] 2020-09-30 2020-09-30 Outpatient [facility] [id number] Univers 18:00:00 18:00:00 FELICITASNDA ity o [facility] 2020-09-30 2020-09-30 Outpatient Jocelyn CARIAS [facility] [id number] Univers 11:45:00 11:45:00 ROSHUNDA [id number] ity o [facility] 2020-09-30 2020-09-30 Outpatient Jocelyn CARIAS [facility] [id number] Univers 11:45:00 11:45:00 ROSHUNDA ity o [facility] 2020-09-29 2020-09-29 Outpatient Jocelyn CARIAS [facility] [id number] Univers 16:45:00 16:45:00 ROSBENJAMINNDA [id number] ity o [facility] 2020-09-29 2020-09-29 Outpatient R [facility] [id number] Univers 16:45:00 16:45:00 DANY vance o f [facility] 2020-09-15 2020-09-15 Routine [facility] 1.2.840.114 [id number] Univers 13:58:57 15:37:45 Nialla R SUBSCRIPTION AGENT 350.1.13.10 ity of Visit REGIONAL 4.2.7.2.686 Jaison as MATERNAL [id number] Med ical & CHILD [address] [place] 2020-09-15 2020-09-15 Outpatient R JV [facility] [id number] Univers 13:15:00 13:15:00 DANY vance o f [facility] 2020-09-12 2020-09-12 Nurse Leidy Duran 1.2.840.114 [id number] Univers 00:00:00 00:00:00 Triage CASI 350.1.13.10 it y of HOSPITAL 4.2.7.2.686 Jaison as [id number] [facility] [address] 2020-08-29 2020-08-29 Telephone NurseDrake [facility] 1.2.840.114 [id number] Univers 00:00:00 00:00:00 Urgent Care Health 350.1.13.10 ity of Surgical 4.2.7.2.686 Jaison as Specialti [id number] Sc dical es [address] [facility] 2020-08-28 2020-08-28 [facility] 1.2.840.114 [id number] 15:21:38 23:59:00 Encounter [place] Sudhakar 350.1.13.10 [place] 4.2.7.2.686 [place] [id number] 2020-08-28 2020-08-28 [facility] 1.2.840.114 [id number] Univers 15:21:38 23:59:00 Encounter [place] Sudhakar 350.1.13.10 ity of [place] [id number] [facility] [address] 2020-08-28 2020-08-28 Urgent Vipul [facility] 1.2.840.114 [id number] 14:13:24 15:23:42 Care [place] [facility] 350.1.13.10 [place] 4.2.7.2.686 Professio [id number] nal [facility] Office [address] 2020-08-28 2020-08-28 [place] Le [facility] 1.2.840.114 [id number] Univers 14:13:24 15:23:42 Care Toby [facility] 350.1.13.10 [facility] 4.2.7.2.686 Jaison as Professio [id number] Sc dical [address] Office [address] 2020-08-28 2020-08-28 Outpatient R [facility] [id number] Univers 14:20:00 14:20:00 TOBY [facility] 2020-08-28 2020-08-28 Outpatient R [facility] [id number] Univers 13:00:00 13:00:00 [id number] [facility] 2020-08-27 2020-08-27 [facility] 1.2.840.114 [id number] 10:01:23 11:16:37 Roshunda R SUBSCRIPTION AGENT 350.1.13.10 Visit [facility] 4.2.7.2.686 MATERNAL [id number] & CHILD [address] [place] [address] 2020-08-27 2020-08-27 Routine [facility] 1.2.840.114 [id number] Univers 10:01:23 11:16:37 Roshunda R SUBSCRIPTION AGENT 350.1.13.10 ity of Visit REGIONAL 4.2.7.2.686 Jaison as MATERNAL [id number] Med ical & CHILD [address] [place] [address] 2020-08-27 2020-08-27 Outpatient R JV [facility] [id number] Univers 09:00:00 09:00:00 ROSHUNDA [id number] ity o f [facility] 2020-08-27 2020-08-27 Outpatient R JV [facility] [id number] Univers 09:00:00 09:00:00 DANY ity o f [facility] 2020-08-27 2020-08-27 Orders Doctor KEARA 1.2.840.114 [id number] 00:00:00 00:00:00 Only Unassigned, CASI 350.1.13.10 [place] [facility] 4.2.7.2.686 [id number] 2020-08-27 2020-08-27 Orders Doctor KEARA 1.2.840.114 [id number] Univers 00:00:00 00:00:00 Only Unassigned, CASI 350.1.13.10 ity of [place] [facility] 4.2.7.2.686 Jaison as [id number] [facility] [address] 2020-08-19 2020-08-19 Transition Specialist 1, [facility] UNIVERSIT 1.2.840.11 [id number] 14:50:51 15:35:51 Visit [facility] Room Y HEALTH 350.1.13.10 CLINICS 4.2.7.2.686 [id number] [facility] 2020-08-19 2020-08-19 Transition Specialist 1, [facility] Us Room UNIVERSIT 1 .2.840.114 [id number] Univers 14:50:51 15:35:51 Visit Arcelia Lucasjuanyemile Daniel Y HEALTH 350.1 .13.10 ity of CL[place] [id number] [facility] 104 [address] 2020-08-19 2020-08-19 Outpatient P [facility] [id number] Univers 14:15:00 14:15:00 [id number] ity [facility] 2020-08-19 2020-08-19 Outpatient P [facility] [id number] Univers 14:15:00 14:15:00 ity [facility] 2020-08-11 2020-08-11 Outpatient R [facility] [id number] Univers 08:45:00 08:45:00 [id number] ity [facility] 2020-08-11 2020-08-11 Outpatient P [facility] [id number] Univers 08:45:00 08:45:00 ity [facility] 2020-08-06 2020-08-06 Nurse KEARA Jiménez [id number] 00:00:00 00:00:00 Triage Mike CASI 350.1.13.10 [facility] 4.2.7.2.[id number] [facility] 2020-08-06 2020-08-06 Nurse KEARA Jiménez [id number] Univers 00:00:00 00:00:00 Triage Mike CASI 350.1.13.10 it y of HOSPITAL 4.2.7.2.686 Jaison as [id number] [address] 2020-08-06 2020-08-06 Telephone Jv [facility] 1.2.293.687 [id number] Univers 00:00:00 00:00:00 Rosbenjaminnda R SUBSCRIPTION AGENT 350.1.13.10 ity of REGIONAL 4.2.7.2.686 Jaison as MATERNAL [id number] Med ical & CHILD [address] [place] [address] 2020-07-30 2020-07-30 Routine [facility] 1.2.840.114 [id number] Univers 10:22:14 10:37:14 Rosbenjaminnda R SUBSCRIPTION AGENT 350.1.13.10 ity of Visit [facility] 4.2.7.2.686 Jaison as MATERNAL [id number] [facility] ical & CHILD [address] [place] [address] 2020-07-30 2020-07-30 Outpatient Jocelyn CARIAS [facility] [id number] Univers 10:15:00 10:15:00 FELICITASNDA [id number] ity o f [facility] 2020-07-30 2020-07-30 Outpatient Jocelyn CARIAS [facility] [id number] Univers 10:15:00 10:15:00 FELICITASNDA ity o f [facility] 2020-07-21 2020-07-21 Outpatient Jocelyn CARIAS [facility] [id number] Univers 13:45:00 13:45:00 FELICITASNDA ity o f [facility] 2020-07-21 2020-07-21 Outpatient [facility] [id number] Univers 10:30:00 10:30:00 [id number] ity of [facility] 2020-07-17 2020-07-17 Outpatient R CARIAS [facility] [id number] Univers 09:00:00 09:00:00 FELICITASNDMariah [id number] ity o f [facility] 2020-07-17 2020-07-17 Outpatient R CARIAS [facility] [id number] Univers 09:00:00 09:00:00 ROSBENJAMINNDA ity o f [facility] 2020-07-14 2020-07-14 Transition Specialist Ultrasound, [facility] 1.2 .840.114 [id number] Univers 09:45:41 11:00:41 Visit Jordan Domingo SUBSCRIPTION AGENT 350.1.13.10 ity of [facility] 4.2.7.2.686 Jaison as MATERNAL [phone] [facility] ical & CHILD [address] [place] [address] 2020-07-14 2020-07-14 Outpatient R [facility] [id number] -[id number] Univers 10:00:00 10:00:00 [id number] ity of [facility] 2020-07-14 2020-07-14 Outpatient P [facility] [id number] Univers 10:00:00 10:00:00 ity [facility] 2020-07-14 2020-07-14 Khoi Sanchez [facility] 1.2.947.727 [id number] Univers 00:00:00 00:00:00 Management Nora Montoya SUBSCRIPTION AGENT 350.1.13.10 ity of [facility] 4.2.7.2.686 Jaison as MATERNAL [id number] [facility] & CHILD [address] [place] [address] 2020-07-01 2020-07-01 Routine [facility] 1.2.840.114 [id number] Univers 13:52:00 14:58:28 Dany R SUBSCRIPTION AGENT 350.1.13.10 ity of Visit [facility] 4.2.7.2.686 Jaison as MATERNAL [phone] [facility] & CHILD [address] [place] [address] 2020-07-01 2020-07-01 Outpatient JV [facility] [id number] -[id number] Univers 13:45:00 13:45:00 FELICITASNDA [id number] ity o f [facility] 2020-07-01 2020-07-01 Outpatient Jocelyn CARIAS, [facility] [id number] Univers 13:45:00 13:45:00 ROSHUNDA ity o f [facility] 2020-07-01 2020-07-01 Telephone Jv [facility] 1.2.559.519 [id number] Univers 00:00:00 00:00:00 Rosbenjaminnda R SUBSCRIPTION AGENT 350.1.13.10 ity of REGIONAL 4.2.7.2.686 Jaison as MATERNAL [id number] [facility] & CHILD [address] [place] [address] 2020-06-17 2020-06-17 Routine [facility] 1.2.840.114 [id number] Univers 08:48:55 09:25:15 Rosbenjaminnda R SUBSCRIPTION AGENT 350.1.13.10 ity of Visit REGIONAL 4.2.7.2.686 Jaison as MATERNAL [phone] [facility] & CHILD [address] [place] [address] 2020-06-17 2020-06-17 Outpatient Jocelyn CARIAS, [facility] [id number] -[id number] Univers 08:45:00 08:45:00 FELICITASNDA [id number] ity o [facility] 2020-06-17 2020-06-17 Outpatient Jocelyn CARIAS [facility] [id number] Univers 08:45:00 08:45:00 FELICITASNDA ity o [facility] 2020-06-10 2020-06-10 Outpatient Jocelyn CARIAS [facility] [id number] -[id number] Univers 15:45:00 15:45:00 FELICITASNDA [id number] ity o [facility] 2020-06-10 2020-06-10 Outpatient Jocelyn JV [facility] [id number] Univers 15:45:00 15:45:00 ROSBENJAMINNDA ity o [facility] 2020-06-03 2020-06-03 Emergency Da Silva, TRAUMA 1.2.669.101 [id number] Univers 20:19:00 22:12:00 Julio ОЛЬГА 350.1.13.10 [place] [phone] [address] 2020-05-13 2020-05-13 Routine [facility] 1.2.840.114 [id number] Univers 09:59:20 10:14:20 Roshunda R SUBSCRIPTION AGENT 350.1.13.10 ity of Visit REGIONAL 4.2.7.2.686 Jaison as MATERNAL [phone] [facility] & CHILD [address] [place] [address] 2020-05-13 2020-05-13 [facility] [id number] -[id number] Univers 10:00:00 10:00:00 ROSBENJAMINNDA [id number] [facility] 2020-05-13 2020-05-13 Outpatient Jocelyn CARIAS [facility] [id number] Univers 10:00:00 10:00:00 RITONDA itisac o [facility] 2020-05-06 2020-05-06 Outpatient R JV [facility] [id number] -[id number] Univers 11:00:00 11:00:00 ROSNDA [id number] itisac o [facility] 2020-05-06 2020-05-06 [facility] [id number] Univers 11:00:00 11:00:00 ROSNDA it o [facility] 2020-04-29 2020-04-29 Outpatient [facility] [id number] -[id number] Univers 10:45:00 10:45:00 ROSNDA [id number] itisac o [facility] 2020-04-29 2020-04-29 Outpatient [facility] [id number] Univers 10:45:00 10:45:00 [facility] 2020-04-29 2020-04-29 Telephone [facility] 1.2.669.724 [id number] Univers 00:00:00 00:00:00 Roshunda R SUBSCRIPTION AGENT 350.1.13.10 ity of REGIONAL 4.2.7.2.686 Jaison as MATERNAL [phone] [facility] & CHILD [address] [place] [address] 2020-04-222020-04-22 Nurse KEARA Garcia 1.2.840.114 [id number] Univers 00:00:00 00:00:00 Triage Lynn LANCE 350.1.13.10 i ty of [facility] 4.2.7.2.686 Jaison as [phone] [address] 2020-04-09 2020-04-09 Case Jv [facility] 1.2.840.114 [id number] Univers 00:00:00 00:00:00 Management Dany R SUBSCRIPTION AGENT 350.1.13.10 ity of [facility] 4.2.7.2.686 Jaison as MATERNAL [phone] Med ical & CHILD [address] [place] [address] 2020-04-08 2020-04-08 Transition Specialist Ultrasound, Srinivasaelizabeth [facility] 1.2 .840.114 [id number] Univers 11:32:55 12:14:18 Visit Tracey Jamil SUBSCRIPTION AGENT 350.1.13.10 ity of [facility] 4.2.7.2.686 Jaison as MATERNAL [phone] [facility] ical & CHILD [address] 2020-04-08 2020-04-08 Outpatient R [facility] [id number] -[id number] Univers 11:30:00 11:30:00 [id number] ity [facility] 2020-04-08 2020-04-08 Outpatient P [facility] [id number] Univers 11:30:00 11:30:00 ity [facility] 2020-04-08 2020-04-08 Abstract Jv [facility] 1.2.840.114 [id number] Univers 00:00:00 00:00:00 Dany R SUBSCRIPTION AGENT 350.1.13.10 ity of [facility] 4.2.7.2.686 Jaison as MATERNAL [phone] [facility] ica & CHILD [address] [place] [address] 2020-04-02 2020-04-03 Emergency Vilma [facility] 1.2.840.114 [id number] Univers 23:15:00 01:12:00 [facility] 350.1.13.10 it y of [facility] 4.2.7.2.[place] [facility] [phone] [address] ([facility]) 2020-04-02 2020-04-02 Telephone Jv MADAN 1.2.601.094 [id number] Univers 00:00:00 00:00:00 Rosbenjaminnda R SUBSCRIPTION AGENT 350.1.13.10 ity of REGIONAL 4.2.7.2.686 Jaison as MATERNAL [phone] [facility] ical & CHILD [address] [place] [address] 2020-04-02 2020-04-02 Telephone Jv [facility] 1.2.934.473 [id number] Univers 00:00:00 00:00:00 Rosbenjaminnda R SUBSCRIPTION AGENT 350.1.13.10 ity of REGIONAL 4.2.7.2.686 Jaison as MATERNAL [phone] [address] 2020-04-01 2020-04-01 Initial Jv [facility] 1.2.840.114 [id number] Univers 09:25:04 11:05:29 Nialla R SUBSCRIPTION AGENT 350.1.13.10 ity of Visit REGIONAL 4.2.7.2.686 Jaison as MATERNAL [id number] [address] 2020-04-01 2020-04-01 Outpatient [facility] [id number] -20 Univers 08:30:00 08:30:00 [id number] ity of [facility] 2020-04-01 2020-04-01 Outpatient R [facility] [id number] Univers 08:30:00 08:30:00 ity of [facility] 2020-04-01 2020-04-01 Orders Doctor SARAH 1.2.840.114 [id number] Univers 00:00:00 00:00:00 Only Unassigned, CASI 350.1.13.10 ity of [place] [facility] 4.2.7.2.686 Jaison as [id number] [address] 2019-12-18 2019-12-18 Outpatient R [facility] [id number] -[id number] Univers 09:30:00 09:30:00 [id number] ity of [facility] 2019-12-18 2019-12-18 Outpatient R [facility] [id number] Univers 09:30:00 09:30:00 ity of [facility] 2019-10-29 2019-10-29 Outpatient R SANDRA, [facility] [id number]-20 Univers 10:30:00 10:30:00 WONDIFUL [id number] ity o f [facility] 2019-09-26 2019-09-26 Patient [facility] 1.2.840.114 [id number] Univers 00:00:00 00:00:00 Secure Msg Wondiful A [place] 350.1.13.10 ity of [place] [phone] Sc dical [facility] 044 [facility] 2019-09-21 2019-09-21 [facility] 1.2.815.219 [id number] Univers 11:10:44 23:59:00 Encounter Wondiful A [place] 350.1.13.10 ity of [place].2.[place] [id number] [address] 2019-09-21 2019-09-21 [facility] 1.2.223.133 [id number] Univers 11:00:00 11:09:00 Encounter Wondiful A [place] 350.1.13.10 ity of [place].2.[place] [phone] [address] 2019-09-21 2019-09-21 [facility] 1.2.297.232 [id number] Univers 09:56:26 10:59:00 Encounter Wondiful A [place] 350.1.13.10 ity of [place].2.[place] [id number] [address] 2019-09-21 2019-09-21 Outpatient R SANDRA, [facility] [id number]-20 Univers 10:00:00 10:00:00 WONDIFUL [id number] ity o f [facility] 2019-09-21 2019-09-21 Outpatient R SANDRA [facility] [id number] Univers 00:00:00 00:00:00 WONDIFUL ity o f [facility] 2019-09-21 2019-09-21 Case Sandra [facility] 1.2.840.114 [id number] Univers 00:00:00 00:00:00 Management Woneleuterioful A [place] 350.1.13.10 ity of [place] [phone] Sc dic[address] 2019-09-21 2019-09-21 Patient Sandra [facility] 1.2.840.114 [id number] Univers 00:00:00 00:00:00 Secure Msg Wondiful A [place] 350.1.13.10 ity of [place] [phone] Sc dic[address] 2019-09-20 2019-09-20 Laboratory Only, Adc Test [facility] 1.2.840. 114 [id number] Univers 10:01:43 10:16:43 Only Kevan Beaulieu [place] 350.1.13.10 ity of [place].2.[place] [phone] [address] 2019-09-20 2019-09-20 Transition Specialist Naomi, Adc Lab Main [facility] 1.2.8 40.114 [id number] Univers 09:55:41 10:10:41 Visit Yoseph Thakkar A [place] 350.1.13. 10 ity of [place] 4[place].7.2.[place] [phone] [address] 2019-09-20 2019-09-20 Outpatient SANDRA [facility] [id number]-20 Univers 09:30:00 09:30:00 WONDIFUL [id number] ity o f [facility] 2019-09-20 2019-09-20 Outpatient R SANDRA [facility] [id number] Univers 00:00:00 00:00:00 WONDIFUL ity o f [facility] 2019-09-20 2019-09-20 Orders Doctor KEARA 1.2.840.114 [id number] Univers 00:00:00 00:00:00 Only Unassigned, CASI 350.1.13.10 ity of [place] [facility] 4.2.7.2.686 Jaison as [phone] [address] 2019-09-19 2019-09-19 Telemedici [facility] 1.2.840.114 [id number] Univers 13:45:12 15:57:17 ne Visit Wondiful A [place] 350.1.13.10 ity of [place] [id number] Sc dical [address] 2019-09-19 2019-09-19 [facility] [id number] Univers 09:45:00 09:45:00 WONDIFUL ity o f [facility] 2019-09-19 2019-09-19 Outpatient R SANDRA [facility] [id number]-20 Univers 08:45:00 08:45:00 WONDIFUL [id number] ity o f [facility] 2019-09-19 2019-09-19 Telephone [facility] 1.2.840.114 [id number] Univers 00:00:00 00:00:00 Wondiful A Health 350.1.13.10 ity of [place] 4.2.7.2.686 Jaison as Professio [phone] [address] Office [facility] 2019-09-14 2019-09-14 Urgent Pob1, Acute Care Clinic [facility] 1. 2.840.114 [id number] Univers 12:46:19 13:54:37 Tyrese [facility] 350.1.13.10 ity of [place] 4.2.7.2.686 Jaison as Professio [phone] Sc dic[address] Office [facility] 2019-09-14 2019-09-14 Outpatient R [facility] [id number] -[id number] Univers 13:00:00 13:00:00 [id number] ity [facility] 2019-09-14 2019-09-14 Outpatient R DELMAR, [facility] [id number] Univers 13:00:00 13:00:00 YTRESE ity [facility] 2019-08-28 2019-08-28 Outpatient R MURRAY, [facility] [id number] -[id number] Univers 11:00:00 11:00:00 SENDIL [id number] ity [facility] 2019-08-28 2019-08-28 Outpatient R GAO, [facility] [id number] Univers 11:00:00 11:00:00 SENDIL ity of [facility] 2019-08-23 2019-08-23 Urgent Provider, [facility] 1.2.840.114 [id number] Univers 15:07:25 16:34:23 Care Tyrese Baca [facility] 350.1.13.10 ity of [place] 4.2.7.2.686 Jaison [facility] [phone] Sc luis alberto le [address] 2019-08-23 2019-08-23 Outpatient R [facility] [id number] -[id number] Univers 15:40:00 15:40:00 [id number] ity of [facility] 2019-08-23 2019-08-23 Outpatient R [facility] [id number] Univers 15:40:00 15:40:00 ity of [facility] 2019-08-22 2019-08-22 Emergency Corazon, [facility] 1.2.480.738 [id number] Univers 14:16:15 16:10:00 Kvng [facility] 350.1.13.10 it y of [place] 4.2.7.2.[address] [facility] s [facility] [phone] [address] ([facility]) 2019-08-22 2019-08-22 Nurse Nurse, [facility] 1.2 .840.114 [id number] Univers 13:26:07 13:41:07 Visit Unknown, Attending SPECIALTY 350.1.13. 10 ity of CARE 4.2.7.2.686 [facility] AT [phone] Sc dical DAVIDIsac [address] [place] [address] 2019-08-22 2019-08-22 Outpatient R [facility] [id number] -[id number] Univers 13:30:00 13:30:00 [id number] ity of [facility] 2019-08-22 2019-08-22 Outpatient R UNKNOWN, [facility] [id number] Univers 13:30:00 13:30:00 ATTENDING ity [facility] 2019-08-22 2019-08-22 Telephone KEARA Rivera 1.2.840.114 [id number] Univers 00:00:00 00:00:00 Simba LANCE 350.1.13.10 it y of HOSPITAL 4.2.7.2.686 Jaison as [phone] [facility] [address] 2019-08-19 2019-08-19 Emergency MADAN Rivera 1.2.840.114 [id number] Univers 21:26:07 21:27:00 Simba Vásquez 350.1.13.10 i ty of [place].2.[place] [phone] [facility] [address] 2019-08-19 2019-08-19 Orders Doctor KEARA 1.2.840.114 [id number] Univers 00:00:00 00:00:00 Only Unassigned, CASI 350.1.13.10 ity of [place] [facility] 4.2.7.2.686 Jaison as [phone] [facility] [address] Results Test Description Test Time Test Comments Results Result Comments Source SARS-CoV-2 (COVID-19), RT-PCR/TMA 2021-02-25 15:19:39 Test Item Value Reference Range Interpretation Comme nts SARS-CoV-2 INTERPRETATION NEGATIVE SEE NOTE S ARS-CoV-2 RNA NOT (test code = 88539) DETECTED Negative results do not preclude SARS-C [...] is h igh. SOURCE (test code = 16714) NASOPHARYNGEAL Note: Methodology is Dannie Stefani Real-Time RT-PCR. The expected r esult or reference range is NEGATIVE (Not Detected). For more information regarding COVID -19 testing to include clinica linformation, methodology det ail, intended use, FDA author ization andrecommended fact sheets for patients or hea lthcare providers, see [employer] Announcement: S ARS-CoV-2 (COVID-19) by Jan MARTINEZ at URL below (note,fact shee ts are provided by method given in report:https:// [email or web address]/[email or web address] t-communications/ Alternatively, see downloadable PDF fact sheet at:https://www. [email or web address]/COVID -19-RT-PCR UNLESS OTHERWISE INDIC ATED, ALL TESTING PERFORMED [facility], [facility]. [address] [place] [address] 78[facility] LABORATORY DIRE CTOR: OCTAVIANO GUZMAN M.D. CLIA NUMBER [id number] [facility] [place]. [id number] POCT URINALYSIS W SPECIFIC [id number] 19:37:00 Test Item Value Reference Range Interpretation [...] U APPEAR (test code = 3267) . [facility] [id number] 19:37:00 Test Item Value Reference Range Interpretation [...] U APPEAR (test code = 3267) . [facility] URINALYSIS W SPECIFIC [id number] 19:37:00 Test Item Value Reference Range Interpretation [...] 3267) Lab Interpretation (test code = Normal 65900-1) [facility] URINALYSIS W SPECIFIC [id number] 19:37:00 Test Item Value Reference Range Interpretation [...] 3267) Lab Interpretation (test code = Normal 14467-7) [facility] URINALYSIS W SPECIFIC [id number] 19:37:00 Test Item Value Reference Range Interpretation [...] 3267) Lab Interpretation (test code = Normal 16816-5) [facility] GRP A STREP (MOLECULAR)2020-08-28 19:43:00 Test Item Value Reference Range Interpretation Comments POCT GP A STREP (test Negative Negative - code = 90033-4) Negative HENRIK (test code = HENRIK) accurate development and interpretation of all internal controls Lab Interpretation Normal (test code = 96910-2) [facility] URINALYSIS W SPECIFIC [id number] 16:49:00 Test Item Value Reference Range Interpretation [...] 3267) Lab Interpretation (test code = Normal 83597-0) [facility] URINALYSIS W SPECIFIC [id number] 16:02:00 Test Item Value Reference Range Interpretation [...] 3267) Lab Interpretation (test code = Normal 24863-1) [facility] URINALYSIS W SPECIFIC [id number] 19:24:00 Test Item Value Reference Range Interpretation [...] 3267) Lab Interpretation (test code = Normal 19422-2) [facility]IFIC [id number] 13:57:00 Test Item Value Reference Range Interpretation [...] 3267) Lab Interpretation (test code = Normal 92766-6) [facility]ID NOW RAPID TESTING)2020-06-04 02:35:01 Test Item Value Reference Range Interpretation Comments SARS-CoV-2 Rapid ID NOW Not Detected Not Detected (test code = 47850-5) HENRIK (test code = HENRIK) ID NOW COVID-19 Assay is an isothermal nucleic acid amplification test intended for the qualitative detection of nucleic acid from SARS-CoV-2 viral RNA in nasopharyngeal (FOAM MACHINE OPERATOR) specimens. It is used under Emergency Use [...] indicated. Lab Interpretation Normal (test code = 75352-9) [facility] ST[facility] S[facility]EN FOR GROUP [id number] 02:30:35 Test Item Value Reference Range Interpretation Comments Streptococcus pyogenes (group A) Negative Negative antigen (test code = 88491-7) Lab Interpretation (test code = Normal 18772-5) [facility] W SPECIFIC [id number] 15:06:00 Test Item Value Reference Range Interpretation [...] POCT U APPEAR (test code = 3267) [facility]2021-02-25 05:46:00 Test Item Value Reference Range Interpretation Comments APPEARANCE (test code = Clear Clear 7167647601) COLOR (test code = Straw Yellow A 4241428862) PH (test code = 4.8-8.0 7730158547) SP GRAVITY (test code = 1.003-1.030 2190684091) GLU U QUAL (test code = Normal Normal 7718420717) BLOOD (test code = Negative Negative 0739136127) KETONES (test code = 20 mg/dL Negative A 8333275136) PROTEIN (test code = Negative Negative 2887-8) UROBILIN (test code = Normal Normal 7257655670) BILIRUBIN (test code = Negative Negative 6136806906) NITRITE (test code = Negative Negative 4243153178) LEUK CHASE (test code = Negative Negative 1498238415) RBC/HPF (test code = See_Comment [Autom ated message] 6662710486) The system [employer] generated this result transmitted ref erence range: 0 - 3 HP F. The reference range was not used to int erpret this result as normal/abnormal . WBC/HPF (test code = See_Comment [Autom ated message] 7165635945) The system [employer] generated this result transmitted ref erence range: 0 - 5 HP F. The reference range was not used to int erpret this result as normal/abnormal . BACTERIA (test code = Negative Negative 6460588825) MUCOUS (test code = Slight Negative LPF A 3930245755) SQ EPITH (test code = See_Comment [Auto mated message] 2225245417) The system [employer] generated this result transmitted ref erence range: <=2 HPF. The reference range was not used to int erpret this result as normal/abnormal . Lab Interpretation (test Abnormal code = 09534-5) [facility] [id number] 05:44:00 Test Item Value Reference Range Interpretation Comments POCT PREG (test code = 1605) Positive On board controls acceptable with Present C Line (test code = 3574) POCT PREG LOT # (test code = 3575) [id number] POCT PREG TEST DATE (test 2021-11-06 code = 3576) Lab Interpretation (test code = Normal 17443-6) [facility] [id number] 15:37:00 Test Item Value Reference Range Interpretation Comments POCT PREG (test code = 1605) Positive On board controls acceptable with C Yes Line (test code = 3574) POCT PREG LOT # (test code = 3575) POCT PREG TEST DATE (test code = 3576) [facility] [id number] 15:37:00 Test Item Value Reference Range Interpretation Comments POCT PREG (test code = 1605) Positive On board controls acceptable with C Yes Line (test code = 3574) POCT PREG LOT # (test code = 3575) POCT PREG TEST DATE (test code = 3576) [facility] URINALYSIS W SPECIFIC [id number] 15:36:00 Test Item Value Reference Range Interpretation [...] POCT U APPEAR (test code = 3267) [facility]CIFIC [id number] 15:36:00 Test Item Value Reference Range Interpretation [...] POCT U APPEAR (test code = 3267) [facility] 4 [id number] 18:12:32XR SPINE THORACIC 4 VW HISTORY: Female 34 years 34yo F with chest pain and LUE discomfort ofunknown cause, work-up for possible radiculopathy was recommended by herCardiologist. COMPARISON: None FINDINGS: The vertebral bodies are normal in height and in normal alignment. No significant degenerative changes are present.[facility], Radiant Results Inft User - 09/21/2019 1:13 PM CDTXR SPINE THORACIC 4 VWHISTORY: Female 34 years 34yo F with chest pain and LUE discomfort ofunknown cause, work-up for possibleradiculopathy was recommended by herCardiologist. COMPARISON: NoneFINDINGS:The vertebral bodies are normal in height and in normal alignment.No significant degenerative changes are present. [facility] 4 [id number] 16:15:551. ?No acute osseous findings are seen.2. ?Mild curvature abnormalities without degenerative changes.HISTORY:34yo F with chest pain and LUE discomfort of unknown cause, work-upfor possible radiculopathy was recommended by her [employer]. TECHNIQUE: Frontal, oblique and lateral views of [...] upfor possible radiculopathy was recommended by her [employer]. TECHNIQUE: Frontal, oblique and lateral views of the cervical spine wereobtained. COMPARISON:None.FINDINGS:There is straightening of the cervical lordosis with preserved sagittalalignment. The vertebral body heights are preserved. The craniocervicaljunction isunremarkable. No degenerative changes are seen.IMPRESSION1. No acute osseous findings are seen.2. Mild curvature abnormalities without degenerative changes.[facility] COMPREHENSIVE METABOLIC [id number] 10:12:00 Test Item Value Reference Range Interpretation [...] 20-125 N TOTAL (test code = ALKP) [id number] 10:12:00 Test Item Value Reference Range Interpretation [...] may jett y by method. COMPREHENSIVE METABOLIC [id number] 10:11:00 Test Item Value Reference Range Interpretation [...] TOTAL (test IUnit/L 20-125 code = ALKP) [id number] 10:11:00 Test Item Value Reference Range Interpretation [...] results may jett y by method. PROTHROMBIN [id number] 09:59:00 Test Item Value Reference Range Interpretation [...] Infarction (t o prevent recurre nt infarct). [id number] 09:59:00 Test Item Value Reference Range Interpretation [...] TESTS AND APPROPRIATECLIN ICAL EUALUATIONS. CBC W/AUTO [id number] 09:56:00 Test Item Value Reference Range Interpretation [...] code = MDIFF) - XR CHEST 1 [id number] 09:56:00 FAX: Dallas Cain MD [phone] [place]: St: PRE Name: RAGHAVENDRA QUINN [facility] : 1985 Age/S: 34/F [address] [place] [address] Unit#: [id number] Loc: [place] [address] Phys: Dallas Cain MD Acct: [id number] Dis Date: Status: PRE ER PHONE #: [phone] Exam Date: 08/22/2019 1003 FAX #: [phone] Reason: Chest Pain EXAMS: CPT CODE: [id number] XR CHEST 1 V [id number] PROCEDURE: CHEST SINGLE VIEW INDICATION: Chest Pain COMPARISON: There are no previous relevant studies available for correlation. FINDINGS: The lungs are clear. No pleural abnormality. The cardiomediastinalsilhouette is normal for projection. The bony thorax is intact. IMPRESSION: Normal radiograph. SL: [id number] at 0956 Reported and signed by: Samson Sousa M.D. CC: Dallas Cain MD Technologist: Lilly Agarwal RT(R) Trnscrd Date/Time/By: 08/22/2019 (0956) : By: Krissy Orig Print D/T: S: 08/22/2019 (1003) PAGE 1 Signed Report
[2021-04-29] MEDS ORDERED: CEFTRIAXONE 1000 MG/VIAL ONE (05:02)
[2021-04-29] MEDS ORDERED: HYDROCODONE/APAP 10/325 TAB ONE (05:02)
--- NOTE | 2021-04-29 05:02 | ER ---
Nurse's Notes [facility] Name: Goyo Solorio Age: 36 yrs Sex: Female : 1985 Arrival Date: 04/29/2021 Time: 04:18 Bed 6 Private MD: Diagnosis: Dental root caries;Dental caries, unspecified;Dental procedure status Presentation: 04/29 04:23 Chief complaint: Patient states: "I went to the dentist today and I had tooth that was tw5 bothering me, the doc suggest I pulled them out or do a root canal. I was told I had a sever infection so they couldn't pull my tooth. My whole face was swollen for hours. They whole face is hurting from my neck to here. They gave me antibiotics. I cannot stand the pain.". Coronavirus screen: Vaccine status: Patient reports being unvaccinated. Ebola Screen: Patient negative for fever greater than or equal to 101.5 degrees Fahrenheit, and additional compatible Ebola Virus Disease symptoms Patient denies exposure to infectious person. Patient denies travel to an Ebola-affected area in the 21 days before illness onset. Initial Sepsis Screen: Does the patient meet any 2 criteria? No. Patient's initial sepsis screen is negative. Does the patient have a suspected source of infection? No. Patient's initial sepsis screen is negative. Risk Assessment: Do you want to hurt yourself or someone else? Patient reports no desire to harm self or others. Onset of symptoms was April 28, 2021. 04:23 Method Of Arrival: Ambulatory tw5 04:23 Acuity: EUGENIO 4 tw5 Triage Assessment: 04:26 General: Appears uncomfortable, Behavior is calm, cooperative, appropriate for age. tw5 Pain: Complains of pain in right cheek, right ear, right taoist and right jaw Pain currently is 8 out of 10 on a pain scale. FLIGHT NURSE: 04:26 LMP 03/31/2021 tw5 Historical: - Allergies: 04:26 No Known Allergies; - Home Meds: 04:26 None [Active]; tw5 - PMHx: 04:26 Anxiety; panic attack; tw5 - PSHx: 04:26 Appendectomy; IUD removal; tw5 - Immunization history:: Flu vaccine is not up to date. - Social history:: Smoking status: Patient reports the use of cigarette tobacco products, denies chronic smoking, but will smoke occasionally. - Family history:: not pertinent. Screenin:10 Abuse screen: Denies threats or abuse. Denies injuries from another. Nutritional lg3 screening: No deficits noted. Tuberculosis screening: No symptoms or risk factors identified. Fall Risk None identified. Assessment: 05:10 General: Appears in no apparent distress. uncomfortable, Behavior is calm, cooperative, lg3 crying. Pain: Complains of pain in face and right jaw and right cheek Pain currently is 10 out of 10 on a pain scale. Neuro: No deficits noted. Level of Consciousness is awake, alert, obeys commands, Oriented to person, place, time, situation. Cardiovascular: No deficits noted. Denies chest pain, shortness of breath. Respiratory: No deficits noted. Airway is patent Trachea midline Respiratory effort is even, unlabored, Respiratory pattern is regular, symmetrical. GI: No deficits noted. No signs and/or symptoms were reported involving the gastrointestinal system. Abdomen is round non-distended. : No deficits noted. No signs and/or symptoms were reported regarding the genitourinary system. EENT: Oral mucosa is moist. right sided swelling noted. Derm: No deficits noted. Skin is intact, is healthy with good turgor, Skin is dry. Musculoskeletal: No deficits noted. No signs and/or symptoms reported regarding the musculoskeletal system. Circulation, motion, and sensation intact. Range of motion: intact in all extremities. Vital Signs: 04:23 BP 124 / 88; Pulse 92; Resp 18; Temp 98.2; Pulse Ox 100% on R/A; Weight 81.65 kg; tw5 Height 5 ft. 2 in. (157.48 cm); Pain 8/10; 04:23 Body Mass Index 32.92 (81.65 kg, 157.48 cm) tw5 ED Course: 04:18 Patient arrived in ED. ja2 04:19 Mike Veliz MD is Attending Physician. nicol 04:25 Chris Richards, JAVIER is Primary Nurse. as6 04:26 Triage completed. tw5 04:26 Arm band placed on right wrist. tw5 05:00 Alberto Srivastava DDS is Referral Physician. nicol 05:10 Patient has correct armband on for positive identification. Bed in low position. Call lg3 light in reach. Side rails up X 1. Pulse ox on. NIBP on. Door closed. Noise minimized. Warm blanket given. 05:10 No provider procedures requiring assistance completed. Patient did not have IV access lg3 during this emergency room visit. Administered Medications: 05:10 Drug: Rocephin (cefTRIAXone) 1 grams Route: IM; Site: left gluteus; lg3 05:10 Follow up: Response: No adverse reaction lg3 05:10 Drug: [place] (HYDROcodone-acetaminophen) 10 mg-325 mg 1 tabs Route: PO; lg3 05:10 Follow up: Response: No adverse reaction; RASS: Alert and Calm (0) lg3 Outcome: 05:01 Discharge ordered by . nicol 05:10 Discharged to home ambulatory. lg3 05:10 Condition: stable 05:10 Discharge instructions given to patient, Instructed on discharge instructions, follow up and referral plans. medication usage, Demonstrated understanding of instructions, follow-up care, medications, Prescriptions given X 2. 05:14 Patient left the ED. lg3 Signatures: Mike Veliz MD MD cha Gibson, Lacie, RN RN lg3 Maria Isabel Sprague Tiffany tw5 Chris Richards, RN RN as6
--- NOTE | 2021-04-29 05:02 | EDPHYS ---
Physician Documentation [facility] Name: Goyo Solorio Age: 36 yrs Sex: Female : 1985 Arrival Date: 04/29/2021 Time: 04:18 Bed 6 Private MD: BA Physician Mike Veliz HPI: 04/29 04:56 This 36 yrs old Female presents to ER via Ambulatory with complaints of FACE nicol HURTS. 04:56 The patient presents with broken tooth/teeth, pain, redness, swelling. The problem is nicol located in the face and right jaw and right cheek. Onset: The symptoms/episode began/occurred 2 day(s) ago. Duration: The symptoms are continuous, and are steadily getting worse. Modifying factors: The symptoms are alleviated by nothing, the symptoms are aggravated by air, chewing, cold fluids, food. Associated signs and symptoms: The patient has no apparent associated signs or symptoms. Severity of symptoms: At their worst the symptoms were moderate, in the emergency department the symptoms are unchanged. The patient has experienced similar episodes in the past, several times. 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 - Social history:: Smoking status: Patient reports the use of cigarette tobacco products, denies chronic smoking, but will smoke occasionally. - Family history:: not pertinent. ROS: 04:56 Constitutional: Negative for fever, chills, and weight loss, Eyes: Negative for injury, nicol pain, redness, and discharge, Neck: Negative for injury, pain, and swelling, Cardiovascular: Negative for chest pain, palpitations, and edema, Respiratory: Negative for shortness of breath, cough, wheezing, and pleuritic chest pain, Abdomen/GI: Negative for abdominal pain, nausea, vomiting, diarrhea, and constipation, Back: Negative for injury and pain, : Negative for injury, bleeding, discharge, and swelling, MS/Extremity: Negative for injury and deformity, Skin: Negative for injury, rash, and discoloration, Neuro: Negative for headache, weakness, numbness, tingling, and seizure, Psych: Negative for depression, anxiety, suicide ideation, homicidal ideation, and hallucinations, Allergy/Immunology: Negative for hives, rash, and allergies, Endocrine: Negative for neck swelling, polydipsia, polyuria, polyphagia, and marked weight changes, Hematologic/Lymphatic: Negative for swollen nodes, abnormal bleeding, and unusual bruising. 04:56 ENT: Positive for dental pain, rhinorrhea, sinus congestion. Exam: 04:56 Constitutional: This is a well developed, well nourished patient who is awake, alert, nicol and in no acute distress. Eyes: Pupils equal round and reactive to light, extra-ocular motions intact. Lids and lashes normal. Conjunctiva and sclera are non-icteric and not injected. Cornea within normal limits. Periorbital areas with no swelling, redness, or edema. ENT: Nares patent. No nasal discharge, no septal abnormalities noted. Tympanic membranes are normal and external auditory canals are clear. Oropharynx with no redness, swelling, or masses, exudates, or evidence of obstruction, uvula midline. Mucous membranes moist. Neck: Trachea midline, no thyromegaly or masses palpated, and no cervical lymphadenopathy. Supple, full range of motion without nuchal rigidity, or vertebral point tenderness. No Meningismus. Chest/axilla: Normal chest wall appearance and motion. Nontender with no deformity. No lesions are appreciated. Cardiovascular: Regular rate and rhythm with a normal S1 and S2. No gallops, murmurs, or rubs. Normal PMI, no JVD. No pulse deficits. Respiratory: Lungs have equal breath sounds bilaterally, clear to auscultation and percussion. No rales, rhonchi or wheezes noted. No increased work of breathing, no retractions or nasal flaring. Abdomen/GI: Soft, non-tender, with normal bowel sounds. No distension or tympany. No guarding or rebound. No evidence of tenderness throughout. Back: No spinal tenderness. No costovertebral tenderness. Full range of motion. Female : Normal external genitalia. Skin: Warm, dry with normal turgor. Normal color with no rashes, no lesions, and no evidence of cellulitis. MS/ Extremity: Pulses equal, no cyanosis. Neurovascular intact. Full, normal range of motion. Neuro: Awake and alert, GCS 15, oriented to person, place, time, and situation. Cranial nerves II-XII grossly intact. Motor strength 5/5 in all extremities. Sensory grossly intact. Cerebellar exam normal. Normal gait. Psych: Awake, alert, with orientation to person, place and time. Behavior, mood, and affect are within normal limits. 04:56 Head/face: Noted is swelling, that is mild, of the right eye, right cheek and right jaw. Vital Signs: 04:23 BP 124 / 88; Pulse 92; Resp 18; Temp 98.2; Pulse Ox 100% on R/A; Weight 81.65 kg; tw5 Height 5 ft. 2 in. (157.48 cm); Pain 8/10; 04:23 Body Mass Index 32.92 (81.65 kg, 157.48 cm) tw5 MDM: 04:31 Patient medically screened. nicol 04:58 Differential diagnosis: dental caries, gingivitis, dental abscess, pericoronitis, nicol aphthous ulcers, acute necrotizing ulcerative gingivitis, gingivostomatitis. Data reviewed: vital signs, nurses notes. Data interpreted: office clerk routine: not applicable for this patient encounter. rate is 92 beats/min, rhythm is regular, Pulse oximetry: on room air is 100 %. Counseling: I had a detailed discussion with the patient and/or guardian regarding: the historical points, exam findings, and any diagnostic results supporting the discharge/admit diagnosis, lab results, radiology results, the need for outpatient follow up, for definitive care, a dentist, an oral maxilofacial specialist. Administered Medications: 05:10 Drug: Rocephin (cefTRIAXone) 1 grams Route: IM; Site: left gluteus; lg3 05:10 Follow up: Response: No adverse reaction lg3 05:10 Drug: [place] (HYDROcodone-acetaminophen) 10 mg-325 mg 1 tabs Route: PO; lg3 05:10 Follow up: Response: No adverse reaction; RASS: Alert and Calm (0) lg3 Disposition Summary: 04/29/21 05:01 Discharge Ordered Location: Home nicol Problem: new nicol Symptoms: have improved nicol Condition: Stable nicol Diagnosis - Dental root caries nicol - Dental caries, unspecified nicol - Dental procedure status nicol Followup: nicol - With: Private Physician - When: 2 - 3 days - Reason: Recheck today's complaints, Continuance of care, Re-evaluation by your physician Followup: [facility] - With: Alberto Srivastava DDS - When: 2 - 3 days - Reason: Recheck today's complaints, Re-evaluation by your physician Discharge Instructions: - Discharge Summary Sheet [facility] - Dental Caries, Adult nicol - Dental Pain nicol - Dental Pain, Vtsh-sy-Cehy [facility] - Diet and Dental Disease [facility] Forms: - Medication Reconciliation Form [facility] - Thank You Letter [facility] - Antibiotic Education [facility] - Prescription Opioid Use [facility] - Work release form [facility] Prescriptions: - Amoxicillin 500 mg Oral Capsule - take 1 capsule by ORAL route every 8 hours for 10 days; 30 tablet; Refills: 0, [facility] Product Selection Permitted - Tylenol-Codeine #3 300 mg-30 mg Oral - take 2 tablet by ORAL route every 4-6 hours; 24 tablet; Refills: 0, Product [facility] Selection Permitted Signatures: Mike Veliz MD MD cha Gibson, Lacie, RN RN 3 [place] tw5
[2021-04-29 05:23] VITALS: BP 124/88; TEMP 98.2; O2SAT 100
== END 2021-04-29 05:14 | disposition home or self-care (01) ==
LOC: ER 04:15
DX: K02.7 Dental root caries (principal); Z98.818 Other dental procedure status; F17.210 Nicotine dependence, cigarettes, uncomplicated; R09.81 Nasal congestion
CPT/HCPCS: 96372; 99283

== ENCOUNTER 2021-04-29 15:25 | Emergency (ER) | payer OTHER ==
--- OUTSIDE RECORDS SUMMARY | 2021-04-29 15:31 | XMS REPORT | Continuity of Care Document ---
:1985 Author Organization [facility] t Address [address] [place] [address] Care Team Providers Name Role Phone SANDRA, A Primary Care Physician Unavailable SANDRA, A Attending Clinician Unavailable Enrique COWAN Attending Clinician Unavailable Ranjith LEES [...] Jose L LEES, F Attending Clinician Avinash TOUSSAINTN, L Attending Clinician Radha RN, A Attending Clinician Unavailable Omero LEES Attending Clinician Vilma LEES Attending Clinician Sandra LEES, A Attending Clinician Only, Test Attending Clinician Unavailable Brittnee LEES Attending Clinician Pob, Lab Main Attending Clinician Unavailable Pob1, Care Clinic Attending Clinician Unavailable Anene WAISTLINE JOINER OVERLOCK Attending Clinician ANENE Attending Clinician Unavailable Oscar GAO Attending Clinician Unavailable Provider, Urgent Care Attending Clinician Unavailable Corazon WAISTLINE JOINER OVERLOCK, R Attending Clinician Nurse, Urgent Care Attending Clinician Unavailable Unknown Attending Clinician Unavailable UNKNOWN Attending Clinician Unavailable Miguel WAISTLINE JOINER OVERLOCK Attending Clinician Sophia MAYO Admitting Clinician Unavailable Payers Payer Name Policy Type Policy Number Effective Date Expiration Date Formerly [facility] [id number] 2019 [facility] MEDICAID 00:00:00 [facility] [id number] 2016 HEALTH 00:00:00 MEDICAID PENDING PENDING 2019 00:00:00 Advance Directives Directive Decision Effective Termination Comments Source Date Date Healthcare Agents on N/A [facility] ersity [facility] Agent Medical RelationshipCommunication[facility] [phone] (Mobile) Problems Condition Condition Condition Status Onset Resolution Last Treating Co mments Source Name Details Category Date Date Treatment Clinician Date Normal Normal Disease Active 2020-02 Univers labor labor 0-19 ity of 00:00: [address] Disease Active 2020-02 Univers (normal (normal 0-19 [place] spont[place] Medi gerri delivery) delivery) Bran ch History of History of Disease Active U nivers anxiety anxiety 2-23 ity of 00:00: [address] BMI BMI Disease Active Univers 32.0-32.9, 32.0-32.9, 2-23 it y of adult adult 00:00: [place] [facility] Former Former Disease Active Univers smoker smoker 2-23 ity of 00:00: [place] [address] Medical Branch History of History of Disease Active U nivers 2-23 ity of delivery delivery 00:00: [place] [facility] History of History of Disease Active U nivers 2-23 [place] premature [place] rupture [place] rupture of 00 Me dical membranes membranes Bran ch (PROM) in (PROM) in previous previous , , currently currently in first in first trimester trimester Vaginal Vaginal Disease Active Univers bleeding bleeding 2-23 ity of in in 00:00: [place] , , 00 Me dical first first Branch trimester trimester Pain Pain Disease Active Univers pelvic pelvic 2-23 ity of 00:00: [place] [facility] Chest Chest Disease Active 2019- Univers pain, pain, 8-12 ity of atypical atypical 00:00: [address] Branch 39 weeks 39 weeks Disease Active Unive rs gestation gestation 3-12 ity of of of 00:00: [place] 00 [facility] Branch Supervisio Supervisio Disease Active 2018-0 U nivers n of high n of high 1-03 ity of risk risk 00:00: [place] 00 [facility] in first in first Branch trimester trimester Multiparit Multiparit Disease Active 2017-0 U nivers y y 8-22 ity of 00:00: [place] [facility] Branch Obesity in Obesity in Disease Active 2017-0 U nivers 8-22 ity of 00:00: [place] [address] Medical Branch Papanicola Papanicola Disease Active 2015-0 [...] 2019- [facility] Allergie 7-15 Clear s 00:00: [place] 00 [facility] No Known DA Active U 2012-02 [facility] Allergie 0-06 Clear s 00:00: [place] 00 [facility] NO KNOWN Drug Active Univers ALLERGIE Class ity of S [facility] Social History Social Habit Start Date Stop Date Quantity Comments Source ASSERTION 2020-03-08 University 00:00:00 [facility] Exposure to Not sure University SARS-CoV-2 (event) [facility] Alcohol intake 2021-03-27 2021-03-27 Ex-drinker University of 00:00:00 00:00:00 (finding) [facility] Education 2020-11-25 2020-11-25 13 University of 00:00:00 00:00:00 [facility] Tobacco Comment 2020-04-01 2020-04-01 smokes 4 x Universit y of 00:00:00 00:00:00 socially - [facility] stopped smoking Branch 2 weeks ago Alcohol Comment 2020-04-01 2020-04-01 socially Universit y of 00:00:00 00:00:00 [facility] Branch History SDOH 2020-04-01 2020-04-01 99 University o f Alcohol [facility] 00:00[facility]00 [facility] 2020-04-01 2020-04-01 99 University o f Alcohol Std Drinks 00:00:00 00:00:00 [facility] Branch History SDOH 2020-04-01 2020-04-01 99 University o f Alcohol Binge 00:00:00 00:00:00 [facility] Branch Cigarettes smoked 2016-09-28 2016-09-28 Univers ity of current (pack per 00:00:00 00:00:00 [facility] ) - Reported Branch Cigarette 2016-09-28 2016-09-28 University of pack-years 00:00:00 00:00:00 [facility] Tobacco use and 2016-09-28 2016-09-28 Never used Universit y of exposure 00:00:00 00:00:00 [facility] History of tobacco 2016-08-28 Cigarette Smoker University of use 00:00:00 [facility] [birth year] Universit y of 00:00:00 00:00:00 [facility] Smoking Status Start Date Stop Date Source Former smoker 2016-09-28 00:00:00 2016-09-28 00:00:00 [facility] [place] [facility] Medications Ordered Filled Start Stop Current Ordering Indication Dosage Frequency Signature Comments Components Source Medication Medication Date Date Medication? Clinician (SIG) Name Name amoxicillin Yes [id number] 500mg Take 1 Univers 500 mg 2-18 capsule by ity of capsule 00:00: mouth 3 [place] 00 (three) Medical times Branch daily. ibuprofen Yes [id number] 800mg Take 1 U nivers 800 mg 2-18 tablet by ity of tablet 00:00: mouth [place] 00 every 8 Medical (eight) Branch hours as needed for Pain (scale 4-6) or Temp > 38.5 C. traMADoL Yes [id number] 50mg Take 1 Univers (ULTRAM) 50 2-18 tablet by ity of mg tablet 00:00: mouth [place] 00 every 6 Medical (six) Branch hours as needed for Pain (scale 7-10). Indication s: acute pain traMADoL 2- No [id number] 50mg Take 1 Univer s (ULTRAM) 50 2-18 02-18 tablet by it y of mg tablet 00:00: 00:00 mouth [place] 00 :00 every 6 Medical (six) Branch hours as needed for Pain (scale 7-10). Indication s: acute pain amoxicillin 2021- No [id number] 500mg Take 1 Univers 500 mg 2-18 02-18 capsule by ity of capsule 00:00: 00:00 mouth 3 [place] 00 :00 (three) Medical times Branch daily. ibuprofen 2- No [id number] 800mg Take 1 Univers 800 mg 2-18 02-18 tablet by ity of tablet 00:00: 00:00 mouth [place] 00 :00 every 8 Medical (eight) Branch hours as needed for Pain (scale 4-6). amoxicillin 2021- No [id number] 500mg Take 1 Univers 500 mg 2-18 02-18 capsule by ity of capsule 00:00: 00:00 mouth 3 [place] 00 :00 (three) Medical times Branch daily. ibuprofen 2021-0 2- No [id number] 800mg Take 1 Univers 800 mg 2-18 02-18 tablet by ity of tablet 00:00: 00:00 mouth [place] 00 :00 every 8 Medical (eight) Branch hours as needed for Pain (scale 4-6). traMADoL 2021-2- No [id number] 50mg Take 1 Univer s (ULTRAM) 50 2-18 -18 tablet by it y of mg tablet 00:00: 00:00 mouth [place] 00 :00 every 6 Medical (six) Branch hours as needed for Pain (scale 7-10). Indication s: acute pain amoxicillin 2021- No [id number] 500mg Take 1 Univers 500 mg 2-18 -18 capsule by ity of capsule 00:00: 00:00 mouth 3 [place] 00 :00 (three) Medical times Branch daily. traMADoL 2021- No [id number] 50mg Take 1 Univer s (ULTRAM) 50 18 - tablet by it y of mg tablet 00:00: 00:00 mouth [place] 00 :00 every 6 Medical (six) Branch hours as needed for Pain (scale 7-10). Indication s: acute pain ibuprofen 2021- No [id number] 800mg Take 1 Univers 800 mg 18 18 tablet by ity of tablet 00:00: 00:00 mouth [place] 00 :00 every 8 Medical (eight) Branch hours as needed for Pain (scale 4-6). docusate 2020-02 Yes [id number] 240mg Take 1 Un rand calcium 240 0-21 capsule by it y of mg capsule 00:00: mouth [place] 00 daily as Medical needed for Branch Constipati on. ferrous 2020-02 Yes [id number] 325mg Take 1 Uni vers sulfate 325 0-21 tablet by ity of mg (65 mg 00:00: mouth 2 [place] iron) 00 (two) Medical tablet times Branch daily. ibuprofen 2020-02 Yes [id number] 600mg Take 1 U nivers 600 mg 0-21 tablet by ity of tablet 00:00: mouth [place] 00 every 6 Medical (six) Branch hours as needed (Pain). Take with food or milk. docusate 2020-02 Yes [id number] 240mg Take 1 Un rand calcium 240 0-21 capsule by it y of mg capsule 00:00: mouth once [place] 00 daily as Medical needed for Branch Constipati on. ferrous 2020-02 Yes [id number] 325mg Take 1 Uni vers sulfate 325 0-21 tablet by ity of mg (65 mg 00:00: mouth 2 [place] iron) 00 (two) Medical tablet times Branch daily. ibuprofen 2020-02- No [id number] 600mg Take 1 Univers 600 mg 0-21 [...] 11:47 INTRA [place] W/EPINEPHRI 00 :04 PROCEDURE, Ia dicut NE) 1.5 Starting Branch %-1:200,000 on Tue injection 11/25/20 at 2049, Until 11/26/20 at 0647, Routine, Intra-op hydrOXYzine 2020-0 Yes [id number] 25mg Take 1 Univers 25 mg 7-22 tablet by ity of tablet 00:00: mouth [place] 00 every 6 Medical (six) Branch hours as needed for Itching or Anxiety. hydrOXYzine 0 Yes [id number] 25mg Take 1 Univers 25 mg 7-22 tablet by ity of tablet 00:00: mouth [place] 00 every 6 Medical (six) Branch hours as needed for Itching or Anxiety. hydrOXYzine 0 Yes [id number] 25mg Take 1 Univers 25 mg 7-22 tablet by ity of tablet 00:00: mouth [place] 00 every 6 Medical (six) Branch hours as needed for Itching or Anxiety. hydrOXYzine 2020-0 Yes [id number] 25mg Take 1 Univers 25 mg 7-22 tablet by ity of tablet 00:00: mouth [place] 00 every 6 Medical (six) Branch hours as needed for Itching or Anxiety. hydrOXYzine 2020-0 Yes [id number] 25mg Take 1 Univers 25 mg 7-22 tablet by ity of tablet 00:00: mouth [place] 00 every 6 Medical (six) Branch hours as needed for Itching or Anxiety. hydrOXYzine Yes [id number] 25mg Take 1 Univers 25 mg 7-22 tablet by ity of tablet 00:00: mouth [place] 00 every 6 Medical (six) Branch hours as needed for Itching or Anxiety. hydrOXYzine Yes [id number] 25mg Take 1 Univers 25 mg 7-22 tablet by ity of tablet 00:00: mouth [place] 00 every 6 Medical (six) Branch hours as needed for Itching or Anxiety. hydrOXYzine 2020- No [id number] 25mg Take 1 Univers 25 mg 7-22 09-09 tablet by ity of tablet 00:00: 00:00 mouth [place] 00 :00 every 6 Medical (six) Branch hours as needed for Itching or Anxiety. hydrOXYzine 2020- No [id number] 25mg Take 1 Univers 25 mg 7-22 [...] mg -250 mg combo pack fluticasone Yes [id number] 1{spray Use 1 Univers propionate 4-27 } [place] in ity o f 50 00:00: each [place] mcg/actuati 00 nostril 2 Med ical on nasal (two) Branch spray times daily. fluticasone Yes [id number] 1{spray Use 1 Univers propionate 4-27 } [place] ity o f 50 00:00: each [place] mcg/actuati 00 nostril 2 Med ical on nasal (two) Branch spray times daily. fluticasone Yes [id number] 1{spray Use 1 Univers propionate 4-27 } [place] ity o f 50 00:00: each [place] mcg/actuati 00 nostril 2 Med ical on nasal (two) Branch spray times daily. fluticasone Yes [id number] 1{spray Use 1 Univers propionate 4-27 } [place] ity o f 50 00:00: each [place] mcg/actuati 00 nostril 2 Med ical on nasal (two) Branch spray times daily. fluticasone Yes [id number] 1{spray Use 1 Univers propionate 4-27 } [place] in it o 50 00:00: each [place] mcg/actuati 00 nostril 2 Med ical on nasal (two) Branch spray times daily. fluticasone Yes [id number] 1{spray Use 1 Univers propionate 4-27 } [place] in it o 50 00:00: each [place] mcg/actuati 00 nostril 2 Med ical on nasal (two) Branch spray times daily. fluticasone Yes [id number] 1{spray Use 1 Univers propionate 4-27 } [place] in it o 50 00:00: each [place] mcg/actuati 00 nostril 2 Med ical on nasal (two) Branch spray times daily. fluticasone Yes [id number] 1{spray Use 1 Univers propionate 4-27 } [place] in it o 50 00:00: each [place] mcg/actuati 00 nostril 2 Med ical on nasal (two) Branch spray times daily. fluticasone Yes [id number] 1{spray Use 1 Univers propionate 4-27 } [place] in it o 50 00:00: each [place] mcg/actuati 00 nostril 2 Med ical on nasal (two) Branch spray times daily. fluticasone Yes [id number] 1{spray Use 1 Univers propionate 4-27 } [place] in it o 50 00:00: each [place] mcg/actuati 00 nostril 2 Med ical on nasal (two) Branch spray times daily. fluticasone Yes [id number] 1{spray Use 1 Univers propionate 4-27 } [place] in it o f 50 00:00: each [place] mcg/actuati 00 nostril 2 Med ical on nasal (two) Branch spray times daily. fluticasone Yes [id number] 1{spray Use 1 Univers propionate 4-27 } [place] in it o 50 00:00: each [place] mcg/actuati 00 nostril 2 Med ical on nasal (two) Branch spray times daily. fluticasone 2020- No [id number] 1{spray Use 1 Univers propionate 06-03 } [place] in ity of 50 00:00: 00:00 each [place] mcg/actuati 00 :00 nostril 2 Med ical on nasal (two) Branch spray times daily. cephALEXin 2020-2020- No 500mg Take 500 U nivers 500 mg 4-06 04-06 mg by ity of capsule 15:16: 00:00 mouth 2 [place] 58 :00 (two) Medical times Branch daily. acetaminoph 2020- No 975mg 975 mg, U nivers en 04-03-25 Oral, ONCE ity of (TYLENOL) 06:30: 05:51 NOW, 1 [place] tablet 975 00 :00 dose, Nel Medi gerri mg 04/03/20 at Branch 0030, [place] NaCl 0.9% 2020- No 1000mL at 999 Uni vers (NS) bolus 04-03-25 mL/hr, ity of infusion 06:30: 07:04 1,000 mL, [place] as 1,000 mL 00 :00 IV Medical Infusion, Branch ONCE, 1 dose, Nel 04/03/20 at 0030, STAT cephALEXin 2020-0 Yes 500mg Take 500 Un rand 500 mg 2-23 mg by ity of capsule 15:47: mouth 2 [place] [address] (two) Medical times Branch daily. cephALEXin 2021-0 Yes 500mg Take 500 Un rand 500 mg 2-23 mg by ity of capsule 15:47: mouth 2 [place] [address] (two) Medical times Branch daily. cephALEXin 2021-0 Yes 500mg Take 500 Un rand 500 mg 2-23 mg by ity of capsule 15:47: mouth 2 [place] [address] (two) Medical times Branch daily. cephALEXin 2021-0 Yes 500mg Take 500 Un rand 500 mg 2-23 mg by ity of capsule 15:47: mouth 2 [place] [address] (two) Medical times Branch daily. cephALEXin 2021-0 Yes 500mg Take 500 Un rand 500 mg 2-23 mg by ity of capsule 15:47: mouth 2 [place] 56 (two) Medical times Branch daily. cephALEXin 2021-0 Yes 500mg Take 500 Un rand 500 mg 2-23 mg by ity of capsule 15:47: mouth 2 [place] [address] (two) Medical times Branch daily. cephALEXin 2021-0 Yes 500mg Take 500 Un [place] 500 mg 2-23 mg by ity of capsule 15:47: mouth 2 [place] 56 (two) Medical times Branch daily. cephALEXin 2021-0 Yes 500mg Take 500 Un rand 500 mg 2-23 mg by ity of capsule 15:47: mouth 2 [place] [address] (two) Medical times Branch daily. cephALEXin 2021-0 Yes 500mg Take 500 Un rand 500 mg 2-23 mg by ity of capsule 15:47: mouth 2 [place] [address] (two) Medical times Branch daily. cephALEXin 2021-0 Yes 500mg Take 500 Un rand 500 mg 2-23 mg by ity of capsule 15:47: mouth 2 [place] [address] (two) Medical times Branch daily. Yes [id number] 1{packe Take 1 Univers vit 2-23 t} Packet by ity of 33-iron-fol 00:00: mouth [place] ic-dha 00 daily. Medical (SELECT-OB Branch + DHA) 29 mg iron-1 mg -250 mg combo pack Yes [id number] 1{packe Take 1 Univers vit 2-23 t} Packet by ity of 33-iron-fol 00:00: mouth [place] ic-dha 00 daily. Medical (SELECT-OB Branch + DHA) 29 mg iron-1 mg -250 mg combo pack Yes [id number] 1{packe Take 1 Univers vit 2-23 t} Packet by ity of 33-iron-fol 00:00: mouth [place] ic-dha 00 daily. Medical (SELECT-OB Branch + DHA) 29 mg iron-1 mg -250 mg combo pack Yes [id number] 1{packe Take 1 Univers vit 2-23 t} Packet by ity of 33-iron-fol 00:00: mouth [place] ic-dha 00 daily. Medical (SELECT-OB Branch + DHA) 29 mg iron-1 mg -250 mg combo pack Yes [id number] 1{packe Take 1 Univers vit 2-23 t} Packet by ity of 33-iron-fol 00:00: mouth [place] ic-dha 00 daily. Medical (SELECT-OB Branch + DHA) 29 mg iron-1 mg -250 mg combo pack Yes [id number] 1{packe Take 1 Univers vit 2-23 t} Packet by ity of 33-iron-fol 00:00: mouth [place] ic-dha 00 daily. Medical (SELECT-OB Branch + DHA) 29 mg iron-1 mg -250 mg combo pack Yes [id number] 1{packe Take 1 Univers vit 2-23 t} Packet by ity of 33-iron-fol 00:00: mouth [place] ic-dha 00 daily. Medical (SELECT-OB Branch + DHA) 29 mg iron-1 mg -250 mg combo pack Yes [id number] 1{packe Take 1 Univers vit 2-23 t} Packet by ity of 33-iron-fol 00:00: mouth [place] ic-dha 00 daily. Medical (SELECT-OB Branch + DHA) 29 mg iron-1 mg -250 mg combo pack Yes [id number] 1{packe Take 1 Univers vit 2-23 t} Packet by ity of 33-iron-fol 00:00: mouth [place] ic-dha 00 daily. Medical (SELECT-OB Branch + DHA) 29 mg iron-1 mg -250 mg combo pack Yes [id number] 1{packe Take 1 Univers vit 2-23 t} Packet by ity of 33-iron-fol 00:00: mouth [place] ic-dha 00 daily. Medical (SELECT-OB Branch + DHA) 29 mg iron-1 mg -250 mg combo pack Yes [id number] 1{packe Take 1 Univers vit 2-23 t} Packet by ity of 33-iron-fol 00:00: mouth [place] ic-dha 00 daily. Medical (SELECT-OB Branch + DHA) 29 mg iron-1 mg -250 mg combo pack Yes [id number] 1{packe Take 1 Univers vit 2-23 t} Packet by ity of 33-iron-fol 00:00: mouth [place] ic-dha 00 daily. Medical (SELECT-OB Branch + DHA) 29 mg iron-1 mg -250 mg combo pack Yes [id number] 1{packe Take 1 Univers vit 2-23 t} Packet by ity of 33-iron-fol 00:00: mouth [place] ic-dha 00 daily. Medical (SELECT-OB Branch + DHA) 29 mg iron-1 mg -250 mg combo pack Yes [id number] 1{packe Take 1 Univers vit 2-23 t} Packet by ity of 33-iron-fol 00:00: mouth [place] ic-dha 00 daily. Medical (SELECT-OB Branch + DHA) 29 mg iron-1 mg -250 mg combo pack Yes [id number] 1{packe Take 1 Univers vit 2-23 t} Packet by ity of 33-iron-fol 00:00: mouth [place] ic-dha 00 daily. Medical (SELECT-OB Branch + DHA) 29 mg iron-1 mg -250 mg combo pack Yes [id number] 1{packe Take 1 Univers vit 2-23 t} Packet by ity of 33-iron-fol 00:00: mouth [place] ic-dha daily. Medical (SELECT-OB Branch + DHA) 29 mg iron-1 mg -250 mg combo pack Yes [id number] 1{packe Take 1 Univers vit 2-23 t} Packet by ity of 33-iron-fol 00:00: mouth [place] ic-dha daily. Medical (SELECT-OB Branch + DHA) 29 mg iron-1 mg -250 mg combo pack Yes [id number] 1{packe Take 1 Univers vit 2-23 t} Packet by ity of 33-iron-fol 00:00: mouth [place] ic-dha daily. Medical (SELECT-OB Branch + DHA) 29 mg iron-1 mg -250 mg combo pack Yes [id number] 1{packe Take 1 Univers vit 2-23 t} Packet by ity of 33-iron-fol 00:00: mouth [place] ic-dha 00 daily. Medical (SELECT-OB Branch + DHA) 29 mg iron-1 mg -250 mg combo pack Yes [id number] 1{packe Take 1 Univers vit 2-23 t} Packet by ity of 33-iron-fol 00:00: mouth [place] ic-dha 00 daily. Medical (SELECT-OB Branch + DHA) 29 mg iron-1 mg -250 mg combo pack Yes [id number] 1{packe Take 1 Univers vit 2-23 t} Packet by ity of 33-iron-fol 00:00: mouth [place] ic-dha 00 daily. Medical (SELECT-OB Branch + DHA) 29 mg iron-1 mg -250 mg combo pack Yes [id number] 1{packe Take 1 Univers vit 2-23 t} Packet by ity of 33-iron-fol 00:00: mouth [place] ic-dha 00 daily. Medical (SELECT-OB Branch + DHA) 29 mg iron-1 mg -250 mg combo pack Yes [id number] 1{packe Take 1 Univers vit 2-23 t} Packet by ity of 33-iron-fol 00:00: mouth [place] ic-dha 00 daily. Medical (SELECT-OB Branch + DHA) 29 mg iron-1 mg -250 mg combo pack 2020- No [id number] 1{packe Take 1 Univers vit 2-23 07-21 t} Packet by ity of 33-iron-fol 00:00: 00:00 mouth [place] ic-dha 00 :00 daily. Medical (SELECT-OB Branch + DHA) 29 mg iron-1 mg -250 mg combo pack cyclobenzap 2020-0 Yes [id number] 5mg Take 1 Univers rine 5 mg 8-14 4 tablet by ity o f tablet 00:00: mouth (two) Medical times Branch daily as needed for Muscle Spasms. Can cause drowsiness . cyclobenzap 2020-0 Yes [id number] 5mg Take 1 Univers rine 5 mg 8-14 4 tablet by ity o f tablet 00:00: mouth 2 (two) Medical times Branch daily as needed for Muscle Spasms. Can cause drowsiness . cyclobenzap 2020-0 Yes [id number] 5mg Take 1 Univers rine 5 mg 8-14 4 tablet by ity o f tablet 00:00: mouth 2 [place] 00 (two) Medical times Branch daily as needed for Muscle Spasms. Can cause drowsiness . cyclobenzap 2020-0 Yes [id number] 5mg Take 1 Univers rine 5 mg 8-14 4 tablet by ity o f tablet 00:00: mouth 2 (two) Medical times Branch daily as needed for Muscle Spasms. Can cause drowsiness . cyclobenzap 2020-0 Yes [id number] 5mg Take 1 Univers rine 5 mg 8-14 4 tablet by ity o f tablet 00:00: mouth 2 [place] 00 (two) Medical times Branch daily as needed for Muscle Spasms. Can cause drowsiness . cyclobenzap 2020-0 Yes [id number] 5mg Take 1 Univers rine 5 mg 8-14 4 tablet by ity o f tablet 00:00: mouth 2 00 (two) Medical times Branch daily as needed for Muscle Spasms. Can cause drowsiness . cyclobenzap 2020-0 2020- No [id number] 5mg Take 1 Univers rine 5 mg 8-14 02-23 4 tablet by ity of tablet 00:00: 00:00 mouth 2 [place] 00 :00 (two) Medical times Branch daily as needed for Muscle Spasms. Can cause drowsiness . cyclobenzap 2020-0 2020- No [id number] 5mg Take 1 Univers rine 5 mg 8-14 02-23 4 tablet by ity of tablet 00:00: 00:00 mouth 2 [place] 00 :00 (two) Medical times Branch daily as needed for Muscle Spasms. Can cause drowsiness . gabapentin 2020-0 Yes [id number] 100mg Take 1 Univers 100 mg 8-12 capsule by ity of capsule 00:00: mouth 3 (three) Medical times Branch daily as needed (nerve pain). gabapentin 2020-0 Yes [id number] 100mg Take 1 Univers 100 mg 8-12 capsule by ity of capsule 00:00: mouth 3 (three) Medical times Branch daily as needed (nerve pain). gabapentin 2020-0 Yes [id number] 100mg Take 1 Univers 100 mg 8-12 capsule by ity of capsule 00:00: mouth 3 (three) Medical times Branch daily as needed (nerve pain). gabapentin 2020-0 Yes [id number] 100mg Take 1 Univers 100 mg 8-12 capsule by ity of capsule 00:00: mouth 3 (three) Medical times Branch daily as needed (nerve pain). gabapentin 2020-0 Yes [id number] 100mg Take 1 Univers 100 mg 8-12 capsule by ity of capsule 00:00: mouth 3 (three) Medical times Branch daily as needed (nerve pain). gabapentin 2020-0 Yes [id number] 100mg Take 1 Univers 100 mg 8-12 capsule by ity of capsule 00:00: mouth (three) Medical times Branch daily as needed (nerve pain). gabapentin 2020-0 Yes [id number] 100mg Take 1 Univers 100 mg 8-12 capsule by ity of capsule 00:00: mouth (three) Medical times Branch daily as needed (nerve pain). gabapentin 2020-0 Yes [id number] 100mg Take 1 Univers 100 mg 8-12 capsule by ity of capsule 00:00: mouth (three) Medical times Branch daily as needed (nerve pain). gabapentin 2020-0 Yes [id number] 100mg Take 1 Univers 100 mg 8-12 capsule by ity of capsule 00:00: mouth (three) Medical times Branch daily as needed (nerve pain). gabapentin 2020-0 Yes [id number] 100mg Take 1 Univers 100 mg 8-12 capsule by ity of capsule 00:00: mouth (three) Medical times Branch daily as needed (nerve pain). gabapentin 2020-0 Yes [id number] 100mg Take 1 Univers 100 mg 8-12 capsule by ity of capsule 00:00: mouth (three) Medical times Branch daily as needed (nerve pain). gabapentin 2020-0 Yes [id number] 100mg Take 1 Univers 100 mg 8-12 capsule by ity of capsule 00:00: mouth (three) Medical times Branch daily as needed (nerve pain). gabapentin 2020-0 Yes [id number] 100mg Take 1 Univers 100 mg 8-12 capsule by ity of capsule 00:00: mouth (three) Medical times Branch daily as needed (nerve pain). gabapentin 2020-0 2021- No [id number] 100mg Take 1 Univers 100 mg 8-12 02-23 capsule by ity of capsule 00:00: 00:00 mouth 3 00 :00 (three) Medical times Branch daily as needed (nerve pain). gabapentin 2020-0 2021- No [id number] 100mg Take 1 Univers 100 mg 8-12 02-23 capsule by ity of capsule 00:00: 00:00 mouth 3 00 :00 (three) Medical times Branch daily as needed (nerve pain). LORazepam 2020-0 Yes Univers 0.5 mg 7-17 ity of tablet 00:00: [place] 00 Medical Branch LORazepam 2020- No TWICE Univer s 0.5 mg 08-23-21 DAILY ity of tablet 00:00: 00:00 [place] 00 :00 [facility] metoprolol 2020- No TWICE Unive rs tartrate 50 08-23-21 DAILY ity of mg tablet 00:00: 00:00 [place] 00 :00 [facility] LORazepam 2019- No Univers 0.5 mg 08-23-12 ity of tablet 00:00: 00:00 [place] 00 :00 [facility] LORazepam 2019- No Univers 0.5 mg 08-23 08-12 ity of tablet 00:00: 00:00 [place] 00 :00 Medical Branch SERTraline 2019- No [id number] 50mg Take 1 Univers (ZOLOFT) 50 7-16 08-16 tablet by it y of mg tablet 00:00: 04:59 mouth [place] 00 :00 daily for Medical 30 days. Branch SERTraline 2019- No [id number] 50mg Take 1 Univers (ZOLOFT) 50 7-16 08-16 tablet by it y of mg tablet 00:00: 04:59 mouth [place] 00 :00 daily for Medical 30 days. Branch SERTraline 2019- No [id number] 50mg Take 1 Univers (ZOLOFT) 50 7-16 08-16 tablet by it y of mg tablet 00:00: 04:59 mouth [place] 00 :00 daily for Medical 30 days. Branch SERTraline 2019- No [id number] 50mg Take 1 Univers (ZOLOFT) 50 7-16 08-12 tablet by it y of mg tablet 00:00: 00:00 mouth [place] 00 :00 daily for Medical 30 days. Branch SERTraline 2020- No [id number] 50mg Take 1 Univers (ZOLOFT) 50 7-16 [...] DAY Branch NEEDED hydrOXYzine 2019-0 2020- No [id number] 10mg Take 1 Univers 10 mg 7-15 07-26 tablet by ity of tablet 00:00: 04:59 mouth [place] 00 :00 every 6 Medical (six) Branch hours for 10 days. hydrOXYzine 2020-0 2020- No [id number] 10mg Take 1 Univers 10 mg 7-15 07-26 tablet by ity of tablet 00:00: 04:59 mouth [place] 00 :00 every 6 Medical (six) Branch hours for 10 days. hydrOXYzine 2020-0 2020- No [id number] 10mg Take 1 Univers 10 mg 7-15 07-26 tablet by ity of tablet 00:00: 04:59 mouth [place] 00 :00 every 6 Medical (six) Branch hours for 10 days. albuterol 2020-0 Yes [id number] 2.5mg Inhale 3 Univers 2.5 mg /3 7-12 mL every 4 ity of mL (0.083 00:00: (four) [place] %) 00 hours. May Medical nebulizer also Branch solution nebulize one extra every 6 hours. albuterol 2020-0 Yes [id number] 2{puff} Inhale 2 Univers 90 7-12 Puffs ity of mcg/actuati 00:00: every 4 [place] on inhaler 00 (four) Medical hours as Branch needed for Wheezing or Shortness of Breath. albuterol 2020-0 Yes [id number] 2.5mg Inhale 3 Univers 2.5 mg /3 7-12 mL every 4 ity of mL (0.083 00:00: (four) [place] %) 00 hours. May Medical nebulizer also Branch solution nebulize one extra every 6 hours. albuterol 2020-0 Yes [id number] 2{puff} Inhale 2 Univers 90 7-12 Puffs ity of mcg/actuati 00:00: every 4 [place] on inhaler 00 (four) Medical hours as Branch needed for Wheezing or Shortness of Breath. albuterol 2020-0 Yes [id number] 2.5mg Inhale 3 Univers 2.5 mg /3 7-12 mL every 4 ity of mL (0.083 00:00: (four) [place] %) 00 hours. May Medical nebulizer also Branch solution nebulize one extra every 6 hours. albuterol 2020-0 Yes [id number] 2{puff} Inhale 2 Univers 90 7-12 Puffs ity of mcg/actuati 00:00: every 4 [place] on inhaler 00 (four) Medical hours as Branch needed for Wheezing or Shortness of Breath. albuterol 2020-0 Yes [id number] 2.5mg Inhale 3 Univers 2.5 mg /3 7-12 mL every 4 ity of mL (0.083 00:00: (four) [place] %) 00 hours. May Medical nebulizer also Branch solution nebulize one extra every 6 hours. albuterol 2020-0 Yes [id number] 2{puff} Inhale 2 Univers 90 7-12 Puffs ity of mcg/actuati 00:00: every 4 [place] on inhaler 00 (four) Medical hours as Branch needed for Wheezing or Shortness of Breath. albuterol 2020-0 Yes [id number] 2.5mg Inhale 3 Univers 2.5 mg /3 7-12 mL every 4 ity of mL (0.083 00:00: (four) [place] %) 00 hours. May Medical nebulizer also Branch solution nebulize one extra every 6 hours. albuterol 2020-0 Yes [id number] 2{puff} Inhale 2 Univers 90 7-12 Puffs ity of mcg/actuati 00:00: every 4 [place] on inhaler 00 (four) Medical hours as Branch needed for Wheezing or Shortness of Breath. albuterol 2020-0 Yes [id number] 2.5mg Inhale 3 Univers 2.5 mg /3 7-12 mL every 4 ity of mL (0.083 00:00: (four) [place] %) 00 hours. May Medical nebulizer also Branch solution nebulize one extra every 6 hours. albuterol 2020-0 Yes [id number] 2{puff} Inhale 2 Univers 90 7-12 Puffs ity of mcg/actuati 00:00: every 4 [place] on inhaler 00 (four) Medical hours as Branch needed for Wheezing or Shortness of Breath. albuterol 2019-0 Yes [id number] 2.5mg Inhale 3 Univers 2.5 mg /3 7-12 mL every 4 ity of mL (0.083 00:00: (four) [place] %) 00 hours. May Medical nebulizer also Branch solution nebulize one extra every 6 hours. albuterol 2019- Yes [id number] 2{puff} Inhale 2 Univers 90 7-12 Puffs ity of mcg/actuati 00:00: every 4 [place] on inhaler 00 (four) Medical hours as Branch needed for Wheezing or Shortness of Breath. albuterol 2019- 2020- No [id number] 2.5mg Inhale 3 Univers 2.5 mg /3 7-12 08-12 mL every 4 ity of mL (0.083 00:00: 00:00 (four) [place] %) 00 :00 hours. May Medical nebulizer also Branch solution nebulize one extra every 6 hours. albuterol 2020- No [id number] 2{puff} Inhale 2 Univers 90 7-12 08-12 Puffs ity of mcg/actuati 00:00: 00:00 every 4 [place] inhaler 00 :00 (four) Medical hours as Branch needed for Wheezing or Shortness of Breath. albuterol 2019- 2020- No [id number] 2.5mg Inhale 3 Univers 2.5 mg /3 7-12 08-12 mL every 4 ity of mL (0.083 00:00: 00:00 (four) [place] %) 00 :00 hours. May Medical nebulizer also Branch solution nebulize one extra every 6 hours. albuterol 2020- No [id number] 2{puff} Inhale 2 Univers 90 7-12 08-12 Puffs ity of mcg/actuati 00:00: 00:00 every 4 [place] inhaler 00 :00 (four) Medical hours as Branch needed for Wheezing or Shortness of Breath. FEMYNOR 2019-0 Yes 1{tbl} Take 1 Univer [...] Take with food or milk. docusate 2018-0 2020- No 240mg Take 1 Unive rs [...] 325mg Take 1 Univer s sulfate 325 14 08-12 tablet by it y of mg [...] Take with food or milk. 2016-02 Yes [id number] 1{packe Take 1 Univers vit 0-05 t} Packet by ity of 33-iron-fol 00:00: mouth [place] ic-dha 00 daily. Medical (SELECT-OB Branch + DHA) 29 mg iron-1 mg -250 mg combo pack 2016-02 Yes [id number] 1{packe Take 1 Univers vit 0-05 t} Packet by ity of 33-iron-fol 00:00: mouth [place] ic-dha 00 daily. Medical (SELECT-[facility] Branch + DHA) 29 mg iron-1 mg -250 mg combo pack 2016-02 Yes [id number] 1{packe Take 1 Univers vit 0-05 t} Packet by ity of 33-iron-fol 00:00: mouth [place] ic-dha 00 daily. Medical (SELECT-[facility] Branch + DHA) 29 mg iron-1 mg -250 mg combo pack 2016-02 Yes [id number] 1{packe Take 1 Univers vit 0-05 t} Packet by ity of 33-iron-fol 00:00: mouth [place] ic-dha 00 daily. Medical (SELECT-[facility] Branch + DHA) 29 mg iron-1 mg -250 mg combo pack 2016-02 Yes [id number] 1{packe Take 1 Univers vit 0-05 t} Packet by ity of 33-iron-fol 00:00: mouth [place] ic-dha 00 daily. Medical (SELECT-[facility] Branch + DHA) 29 mg iron-1 mg -250 mg combo pack 2016-02 Yes [id number] 1{packe Take 1 Univers vit 0-05 t} Packet by ity of 33-iron-fol 00:00: mouth [place] ic-dha 00 daily. Medical (SELECT-[facility] Branch + DHA) 29 mg iron-1 mg -250 mg combo pack 2016-02 Yes [id number] 1{packe Take 1 Univers vit 0-05 t} Packet by ity of 33-iron-fol 00:00: mouth [place] ic-dha 00 daily. Medical (SELECT-[facility] Branch + DHA) 29 mg iron-1 mg -250 mg combo pack 2016-02 Yes [id number] 1{packe Take 1 Univers vit 0-05 t} Packet by ity of 33-iron-fol 00:00: mouth [place] ic-dha 00 daily. Medical (SELECT-OB Branch + DHA) 29 mg iron-1 mg -250 mg combo pack 2016-02 2020- No [id number] 1{packe Take 1 Univers vit 0-05 08-12 t} Packet by ity of 33-iron-fol 00:00: 00:00 [place] ic-dha 00 :00 daily. Medical (SELECT-OB Branch + DHA) 29 mg iron-1 mg -250 mg combo pack 2016-02 2020- No [id number] 1{packe Take 1 Univers vit 0-05 08-12 t} Packet by ity of 33-iron-fol 00:00: 00:00 [place] ic-dha 00 :00 daily. Medical (SELECT-[facility] Branch + DHA) 29 mg iron-1 mg -250 mg combo pack Immunizations Ordered Filled Immunization Date Status Comments Sourc e Immunization Name Name TD 2020-09-15 Completed University of 00:00:00 [facility] TDAP 2020-09-15 Completed University of 00:00:00 [facility] Branch TDAP 2020-09-15 Completed University of 00:00:00 [facility] Branch TDAP 2020-09-15 Completed University of 00:00:00 [facility] TDAP 2020-09-15 Completed University of 00:00:00 [facility] Branch TDAP 2020-09-15 Completed University of 00:00:00 [facility] Branch TDAP 2020-09-15 Completed University of 00:00:00 [facility] TDAP 2020-09-15 Completed University of 00:00:00 [facility] Branch TDAP 2020-09-15 Completed University of 00:00:00 [facility] TDAP 2020-09-15 Completed University of 00:00:00 [facility] TDAP 2020-09-15 Completed University of 00:00:00 [facility] TDAP 2020-09-15 Completed University of 00:00:00 [facility] TDAP 2017-02-09 Completed University of 00:00:00 [facility] TDAP 2017-02-09 Completed University of 00:00:00 [facility] TDAP 2017-02-09 Completed University of 00:00:00 [facility] TDAP 2017-02-09 Completed University of 00:00:00 [facility] TDAP 2017-02-09 Completed University of 00:00:00 [facility] TDAP 2017-02-09 Completed University of 00:00:00 [facility] TDAP 2017-02-09 Completed University of 00:00:00 [facility] TDAP 2017-02-09 Completed University of 00:00:00 [facility] Branch TDAP 2017-02-09 Completed University of 00:00:00 [facility] Branch TDAP 2017-02-09 Completed University of 00:00:00 [facility] Branch TDAP 2017-02-09 Completed University of 00:00:00 [facility] TDAP 2017-02-09 Completed University of 00:00:00 [facility] TDAP 2017-02-09 Completed University of 00:00:00 [facility] TDAP 2017-02-09 Completed University of 00:00:00 [place] [facility] TDAP 2017-02-09 Completed University of 00:00:00 [place] [facility] TDAP 2017-02-09 Completed University of 00:00:00 [place] [facility] TDAP 2017-02-09 Completed University of 00:00:00 [place] [facility] TDAP 2017-02-09 Completed University of 00:00:00 [place] [facility] TDAP 2017-02-09 Completed University of 00:00:00 [place] [facility] TDAP 2017-02-09 Completed University of 00:00:00 [place] [facility] TDAP 2017-02-09 Completed University of 00:00:00 [place] [facility] TDAP 2017-02-09 Completed University of 00:00:00 [place] [facility] TDAP 2017-02-09 Completed University of 00:00:00 [place] [facility] TDAP 2017-02-09 Completed University of 00:00:00 [place] [facility] TDAP 2017-02-09 Completed University of 00:00:00 [place] [facility] TDAP 2017-02-09 Completed University of 00:00:00 [place] [facility] TDAP 2017-02-09 Completed University of 00:00:00 [place] [facility] TDAP 2017-02-09 Completed University of 00:00:00 [place] [facility] TDAP 2017-02-09 Completed University of 00:00:00 [place] [facility] TDAP 2017-02-09 Completed University of 00:00:00 [place] [facility] TDAP 2017-02-09 Completed University of 00:00:00 [place] [facility] TDAP 2017-02-09 Completed University of 00:00:00 [place] [facility] TDAP 2017-02-09 Completed University of 00:00:00 [place] [facility] TDAP 2017-02-09 Completed University of 00:00:00 [place] [facility] TDAP 2017-02-09 Completed University of 00:00:00 [place] [facility] TDAP 2017-02-09 Completed University of 00:00:00 [place] [facility] TDAP 2017-02-09 Completed University of 00:00:00 [place] [facility] TDAP 2017-02-09 Completed University of 00:00:00 [place] [facility] TDAP 2017-02-09 Completed University of 00:00:00 [place] [facility] TDAP 2017-02-09 Completed University of 00:00:00 [place] [facility] TDAP 2017-02-09 Completed University of 00:00:00 [place] [facility] TDAP 2017-02-09 Completed University of 00:00:00 [place] [facility] TDAP 2017-02-09 Completed University of 00:00:00 [place] [facility] TDAP 2017-02-09 Completed University of 00:00:00 [place] [facility] TDAP 2017-02-09 Completed University of 00:00:00 [place] [facility] TDAP 2017-02-09 Completed University of 00:00:00 [facility] TDAP 2017-02-09 Completed University of 00:00:00 [place] [facility] TDAP 2017-02-09 Completed University of 00:00:00 [place] [facility] TDAP 2017-02-09 Completed University of 00:00:00 [facility] TDAP 2017-02-09 Completed University of 00:00:00 [place] [facility] TDAP 2017-02-09 Completed University of 00:00:00 [place] [facility] TDAP 2017-02-09 Completed University of 00:00:00 [facility] TDAP 2017-02-09 Completed University of 00:00:00 [facility] TDAP 2017-02-09 Completed University of 00:00:00 [place] [facility] TDAP 2017-02-09 Completed University of 00:00:00 [facility] TDAP 2017-02-09 Completed University of 00:00:00 [facility] TDAP 2017-02-09 Completed University of 00:00:00 [facility] TDAP 2017-02-09 Completed University of 00:00:00 [facility] TDAP 2017-02-09 Completed University of 00:00:00 [facility] TDAP 2017-02-09 Completed University of 00:00:00 [facility] TDAP 2017-02-09 Completed University of 00:00:00 [facility] TDAP 2007-02-07 Completed University of 00:00:00 [facility] TDAP 2007-02-07 Completed University of 00:00:00 [facility] TDAP 2007-02-07 Completed University of 00:00:00 [facility] TDAP 2007-02-07 Completed University of 00:00:00 [facility] TDAP 2007-02-07 Completed University of 00:00:00 [place] [facility] TDAP 2007-02-07 Completed University of 00:00:00 [facility] TDAP 2007-02-07 Completed University of 00:00:00 [facility] TDAP 2007-02-07 Completed University of 00:00:00 [facility] TDAP 2007-02-07 Completed University of 00:00:00 [facility] TDAP 2007-02-07 Completed University of 00:00:00 [facility] TDAP 2007-02-07 Completed University of 00:00:00 [facility] TDAP 2007-02-07 Completed University of 00:00:00 [facility] TDAP 2007-02-07 Completed University of 00:00:00 [facility] TDAP 2007-02-07 Completed University of 00:00:00 [facility] TDAP 2007-02-07 Completed University of 00:00:00 [facility] TDAP 2007-02-07 Completed University of 00:00:00 [facility] TDAP 2007-02-07 Completed University of 00:00:00 [facility] TDAP 2007-02-07 Completed University of 00:00:00 [facility] TDAP 2007-02-07 Completed University of 00:00:00 [facility] TDAP 2007-02-07 Completed University of 00:00:00 [facility] TDAP 2007-02-07 Completed University of 00:00:00 [facility] TDAP 2007-02-07 Completed University of 00:00:00 [facility] TDAP 2007-02-07 Completed University of 00:00:00 [facility] TDAP 2007-02-07 Completed University of 00:00:00 [facility] TDAP 2007-02-07 Completed University of 00:00:00 [facility] TDAP 2007-02-07 Completed University of 00:00:00 [facility] TDAP 2007-02-07 Completed University of 00:00:00 [facility] TDAP 2007-02-07 Completed University of 00:00:00 [facility] TDAP 2007-02-07 Completed University of 00:00:00 [facility] TDAP 2007-02-07 Completed University of 00:00:00 [facility] TDAP 2007-02-07 Completed University of 00:00:00 [facility] TDAP 2007-02-07 Completed University of 00:00:00 [facility] TDAP 2007-02-07 Completed University of 00:00:00 [facility] TDAP 2007-02-07 Completed University of 00:00:00 [facility] TDAP 2007-02-07 Completed University of 00:00:00 [facility] TDAP 2007-02-07 Completed University of 00:00:00 [facility] TDAP 2007-02-07 Completed University of 00:00:00 [facility] TDAP 2007-02-07 Completed University of 00:00:00 [facility] TDAP 2007-02-07 Completed University of 00:00:00 [facility] TDAP 2007-02-07 Completed University of 00:00:00 [facility] TDAP 2007-02-07 Completed University of 00:00:00 [facility] TDAP 2007-02-07 Completed University of 00:00:00 [facility] TDAP 2007-02-07 Completed University of 00:00:00 [facility] TDAP 2007-02-07 Completed University of 00:00:00 [facility] TDAP 2007-02-07 Completed University of 00:00:00 [facility] TDAP 2007-02-07 Completed University of 00:00:00 [facility] TDAP 2007-02-07 Completed University of 00:00:00 [facility] TDAP 2007-02-07 Completed University of 00:00:00 [facility] TDAP 2007-02-07 Completed University of 00:00:00 [facility] TDAP 2007-02-07 Completed University of 00:00:00 [facility] TDAP 2007-02-07 Completed University of 00:00:00 [facility] TDAP 2007-02-07 Completed University of 00:00:00 [facility] TDAP 2007-02-07 Completed University of 00:00:00 [facility] TDAP 2007-02-07 Completed University of 00:00:00 [facility] TDAP 2007-02-07 Completed University of 00:00:00 [facility] TDAP 2007-02-07 Completed University of 00:00:00 [facility] TDAP 2007-02-07 Completed University of 00:00:00 [facility] TDAP 2007-02-07 Completed University of 00:00:00 [facility] TDAP 2007-02-07 Completed University of 00:00:00 [facility] TDAP 2007-02-07 Completed University of 00:00:00 [facility] TDAP 2007-02-07 Completed University of 00:00:00 [facility] Vital Signs Vital Name Observation Time Observation Value Comments Source Respiratory rate 2021-03-27 09:38:51 18 /min [facility] Oxygen saturation in 2021-03-27 09:38:51 98 /min University of Arterial blood by [facility] [place] [facility] Pulse oximetry Branch Systolic blood 2021-03-27 09:38:51 117 mm[Hg] Univer sity of pressure [place] [facility] Diastolic blood 2021-03-27 09:38:51 78 mm[Hg] Unive rsity of pressure [place] [facility] Heart rate 2021-03-27 09:38:51 87 /min Universi ty of [place] [facility] Body temperature 2021-03-27 08:49:00 36.89 [place] Univ ersity of [place] [facility] Body height 2021-03-27 08:49:00 154.9 cm Universi ty of [place] [facility] Body weight 2021-03-27 08:49:00 79.379 kg Universi ty of [place] [facility] BMI 2021-03-27 08:49:00 33.07 kg/m2 Universi ty of [place] [facility] Systolic blood 2020-10-16 19:34:00 104 mm[Hg] Univer sity of pressure [place] [facility] Diastolic blood 2020-10-16 19:34:00 64 mm[Hg] Unive rsity of pressure [place] [facility] Heart rate 2020-10-16 19:34:00 95 /min Universi ty of [place] [facility] Body temperature 2020-10-16 19:34:00 37.06 Brigitte Univ ersity of [facility] Respiratory rate 2020-10-16 19:34:00 18 /min Univ ersity of [place] [facility] Body height 2020-10-16 19:34:00 154.9 cm Universi ty of [place] [facility] Body weight 2020-10-16 19:34:00 81.336 kg Universi ty of [place] [facility] BMI 2020-10-16 19:34:00 33.88 kg/m2 Universi ty of [place] [facility] Systolic blood 2020-09-15 19:34:00 107 mm[Hg] Univer sity of pressure [place] [facility] Diastolic blood 2020-09-15 19:34:00 67 mm[Hg] Unive rsity of pressure [place] [facility] Heart rate 2020-09-15 19:34:00 98 /min Universi ty of [place] [facility] Body temperature 2020-09-15 19:34:00 37.17 [place] Univ ersity of [facility] Respiratory rate 2020-09-15 19:34:00 16 /min Univ ersity of [place] [facility] Body height 2020-09-15 19:34:00 154.9 cm [facility] [place] [facility] [place] Body weight 2020-09-15 19:34:00 80.922 kg Universi ty of [place] [facility] BMI 2020-09-15 19:34:00 33.71 kg/m2 Universi ty of [facility] Systolic blood 2020-08-28 19:23:00 109 mm[Hg] Univer sity of pressure [facility] Diastolic blood 2020-08-28 19:23:00 70 mm[Hg] Unive rsity of pressure [facility] Heart rate 2020-08-28 19:23:00 107 /min Universi ty of [facility] Body temperature 2020-08-28 19:23:00 36.94 Brig[place] Univ ersity of [facility] Branch Respiratory rate 2020-08-28 19:23:00 18 /min Univ ersity of [facility] Body height 2020-08-28 19:23:00 154.9 cm Universi ty of [place] [facility] Body weight 2020-08-28 19:23:00 79.379 kg Universi ty of [place] [facility] BMI 2020-08-28 19:23:00 33.07 kg/m2 Universi ty of [facility] Oxygen saturation in 2020-08-28 19:23:00 97 /min University Arterial blood by [facility] [place] [facility] Pulse oximetry Branch Systolic blood 2020-08-28 19:23:00 109 mm[Hg] Univer sity of pressure [facility] Diastolic blood 2020-08-28 19:23:00 70 mm[Hg] Unive rsity of pressure [facility] Heart rate 2020-08-28 19:23:00 107 /min Universi ty of [place] [facility] Body temperature 2020-08-28 19:23:00 36.94 Brig[place] Univ ersity of [facility] Respiratory rate 2020-08-28 19:23:00 18 /min Univ ersity of [facility] Branch Body height 2020-08-28 19:23:00 154.9 cm Universi ty of [place] [facility] Body weight 2020-08-28 19:23:00 79.379 kg Universi ty of [facility] BMI 2020-08-28 19:23:00 33.07 kg/m2 Universi ty of [facility] Oxygen saturation in 2020-08-28 19:23:00 97 /min University of Arterial blood by [facility] [place] [facility] Pulse oximetry Branch Systolic blood 2020-08-27 15:37:00 108 mm[Hg] Univer sity of pressure [place] [facility] Diastolic blood 2020-08-27 15:37:00 71 mm[Hg] Unive rsity of pressure [place] [facility] Heart rate 2020-08-27 15:37:00 90 /min Universi ty of [place] [facility] Body temperature 2020-08-27 15:37:00 36.83 [place] [facility] ersity of [place] [facility] Respiratory rate 2020-08-27 15:37:00 16 /min [facility] Body weight 2020-08-27 15:37:00 80.105 kg [facility] BMI 2020-08-27 15:37:00 32.83 kg/m2 [facility] Systolic blood 2020-08-27 15:37:00 108 mm[Hg] [facility] [place] [facility] Diastolic blood 2020-08-27 15:37:00 71 mm[Hg] [facility] [place] [facility] Heart rate 2020-08-27 15:37:00 90 /min [facility] Body temperature 2020-08-27 15:37:00 36.83 Brigitte [facility] Respiratory rate 2020-08-27 15:37:00 16 /min [facility] Body weight 2020-08-27 15:37:00 80.105 kg [facility] BMI 2020-08-27 15:37:00 32.83 kg/m2 [facility] Systolic blood 2020-07-30 15:52:00 103 mm[Hg] [facility] Diastolic blood 2020-07-30 15:52:00 69 mm[Hg] [facility] [place] [facility] Heart rate 2020-07-30 15:52:00 89 /min [facility] Body temperature 2020-07-30 15:52:00 37.5 Brigitte [facility] Respiratory rate 2020-07-30 15:52:00 16 /min [facility] Body height 2020-07-30 15:52:00 156.2 cm [facility] Body weight 2020-07-30 15:52:00 80.015 kg [facility] BMI 2020-07-30 15:52:00 32.79 kg/m2 [facility] Systolic blood 2020-07-01 19:19:00 100 mm[Hg] [facility] [place] [facility] Diastolic blood 2020-07-01 19:19:00 62 mm[Hg] [facility] [place] [facility] Heart rate 2020-07-01 19:19:00 79 /min [facility] Body temperature 2020-07-01 19:19:00 37.06 Brigitte [facility] Respiratory rate 2020-07-01 19:19:00 16 /min [facility] Body height 2020-07-01 19:19:00 156.2 cm [facility] Body weight 2020-07-01 19:19:00 79.652 kg [facility] BMI 2020-07-01 19:19:00 32.64 kg/m2 [facility] Systolic blood 2020-06-17 13:54:00 105 mm[Hg] [facility] [place] [facility] Diastolic blood 2020-06-17 13:54:00 70 mm[Hg] [facility] Heart rate 2020-06-17 13:54:00 78 /min [facility] Body temperature 2020-06-17 13:54:00 36.94 Brigitte [facility] Respiratory rate 2020-06-17 13:54:00 16 /min [facility] Body height 2020-06-17 13:54:00 152.4 cm [facility] Body weight 2020-06-17 13:54:00 80.468 kg [facility] BMI 2020-06-17 13:54:00 34.65 kg/m2 [facility] Systolic blood 2020-06-04 03:00:00 125 mm[Hg] [facility] [place] [facility] Diastolic blood 2020-06-04 03:00:00 65 mm[Hg] [facility] [place] [facility] Heart rate 2020-06-04 03:00:00 90 /min [facility] Body temperature 2020-06-04 03:00:00 36.89 Brigitte [facility] Respiratory rate 2020-06-04 03:00:00 22 /min [facility] Oxygen saturation in 2020-06-04 03:00:00 100 /min University of Arterial blood by [place] [employer] gerri Pulse oximetry Branch Body weight 2020-06-04 01:18:00 80.74 kg [facility] BMI 2020-06-04 01:18:00 33.63 kg/m2 [facility] Systolic blood 2020-05-13 15:04:00 103 mm[Hg] [facility] [place] [facility] Diastolic blood 2020-05-13 15:04:00 72 mm[Hg] [facility] Heart rate 2020-05-13 15:04:00 87 /min [facility] Body temperature 2020-05-13 15:04:00 36.83 Brigitte [facility] Respiratory rate 2020-05-13 15:04:00 16 /min [facility] Body height 2020-05-13 15:04:00 154.9 cm [facility] Body weight 2020-05-13 15:04:00 80.372 kg [facility] [place] [facility] BMI 2020-05-13 15:04:00 33.48 kg/m2 [facility] Systolic blood 2020-04-03 07:04:39 114 mm[Hg] [facility] [place] [facility] Diastolic blood 2020-04-03 07:04:39 77 mm[Hg] [facility] Heart rate 2020-04-03 07:04:39 94 /min [facility] Respiratory rate 2020-04-03 07:04:39 15 /min [facility] Oxygen saturation in 2020-04-03 07:04:39 100 /min University of Arterial blood by [employer] gerri Pulse oximetry Branch Body temperature 2020-04-03 05:13:00 36.61 Brigitte [facility] Body height 2020-04-03 05:13:00 154.9 cm [facility] Body weight 2020-04-03 05:13:00 83.915 kg [facility] BMI 2020-04-03 05:13:00 34.96 kg/m2 [facility] Systolic blood 2020-04-01 15:34:00 117 mm[Hg] [facility] [place] [facility] Diastolic blood 2020-04-01 15:34:00 81 mm[Hg] [facility] [place] [facility] Heart rate 2020-04-01 15:34:00 101 /min [facility] Body temperature 2020-04-01 15:34:00 36.61 Brigitte [facility] Respiratory rate 2020-04-01 15:34:00 16 /min [facility] Body height 2020-04-01 15:34:00 152.4 cm [facility] Body weight 2020-04-01 15:34:00 83.093 kg [facility] BMI 2020-04-01 15:34:00 35.78 kg/m2 [facility] Systolic blood 2019-09-14 18:04:00 122 mm[Hg] [facility] [place] [facility] Diastolic blood 2019-09-14 18:04:00 81 mm[Hg] [facility] [place] [facility] Heart rate 2019-09-14 18:04:00 94 /min [facility] Body temperature 2019-09-14 18:04:00 37.11 Brigitte [facility] Respiratory rate 2019-09-14 18:04:00 18 /min [facility] Body height 2019-09-14 18:04:00 152.4 cm [facility] Body weight 2019-09-14 18:04:00 81.647 kg [facility] BMI 2019-09-14 18:04:00 35.15 kg/m2 [facility] Oxygen saturation in 2019-09-14 18:04:00 97 /min [facility] of Arterial blood by [facility] Pulse oximetry Branch Systolic blood 2019-08-23 20:22:00 110 mm[Hg] [facility] [place] [facility] Diastolic blood 2019-08-23 20:22:00 82 mm[Hg] [facility] [place] [facility] Heart rate 2019-08-23 20:22:00 106 /min [facility] Body temperature 2019-08-23 20:22:00 37 Brigitte [facility] Respiratory rate 2019-08-23 20:22:00 18 /min [facility] Body height 2019-08-23 20:22:00 152.4 cm [facility] Body weight 2019-08-23 20:22:00 81.92 kg [facility] BMI 2019-08-23 20:22:00 35.27 kg/m2 [facility] Oxygen saturation in 2019-08-23 20:22:00 96 /min University of Arterial blood by [facility] Pulse oximetry Branch Systolic blood 2019-08-22 19:15:00 112 mm[Hg] [facility] [place] [facility] Diastolic blood 2019-08-22 19:15:00 93 mm[Hg] [facility] [place] [facility] Heart rate 2019-08-22 19:14:00 97 /min [facility] Body temperature 2019-08-22 19:14:00 36.44 Brigitte [facility] Respiratory rate 2019-08-22 19:14:00 16 /min [facility] Body weight 2019-08-22 19:14:00 81.647 kg [facility] BMI 2019-08-22 19:14:00 34.01 kg/m2 [facility] Oxygen saturation in 2019-08-22 19:14:00 99 /min [facility] Arterial blood by [facility] Pulse oximetry Branch Systolic blood 2019-08-22 18:32:00 110 mm[Hg] [facility] [place] [facility] Diastolic blood 2019-08-22 18:32:00 73 mm[Hg] [facility] [place] [facility] Heart rate 2019-08-22 18:32:00 98 /min [facility] Body temperature 2019-08-22 18:32:00 37.17 Brigitte [facility] Respiratory rate 2019-08-22 18:32:00 16 /min [facility] Body height 2019-08-22 18:32:00 154.9 cm [facility] [place] [facility] [place] Body weight 2019-08-22 18:32:00 82.464 kg [facility]i [facility] BMI 2019-08-22 18:32:00 34.35 kg/m2 [facility] Oxygen saturation in 2019-08-22 18:32:00 100 /min [facility] Arterial blood by [facility] Pulse oximetry Branch Systolic blood 2019-08-20 01:55:00 117 mm[Hg] Univer sity of pressure [facility] Diastolic blood 2019-08-20 01:55:00 88 mm[Hg] Unive rsity of [facility] Heart rate 2019-08-20 01:55:00 86 /min [facility]i [facility] Body temperature 2019-08-20 01:55:00 37.56 Brigitte [facility] Respiratory rate 2019-08-20 01:55:00 22 /min [facility] Body height 2019-08-20 01:55:00 152.4 cm [facility] [place] [facility] [place] Body weight 2019-08-20 01:55:00 83.462 kg [facility] [place] [facility] [place] BMI 2019-08-20 01:55:00 35.94 kg/m2 [facility] Oxygen saturation in 2019-08-20 01:55:00 99 /min [facility] Arterial blood by [facility] Pulse oximetry Branch Procedures Procedure Date / Time Performing Clinician Source Performed CONSENT/REFUSAL FOR 2021-03-27 08:40:33 Doctor Unassigned, No [facility] DIAGNOSIS AND TREATMENT Name [facility] CENTRAL NEURAXIAL BLOCK 2020-11-26 02:06:09 Carine Smith [facility] POCT URINALYSIS 2020-10-16 19:37:00 Dany Carias [facility] STERILIZATION CONSENT 2020-10-16 05:01:00 Doctor Unassigned, No [facility] FORM Name [facility] TDAP VACCINE, >11 YRS, 2020-09-15 19:37:[address] [facility] POCT URINALYSIS 2020-09-15 19:36:00 Dany Carias [facility] XR CHEST 2 VW 2020-08-28 21:03:53 Vipul [facility] POCT GRP A STREP 2020-08-28 19:43:00 Vipul [facility] (MOLECULAR) [facility] POCT URINALYSIS 2020-08-27 16:49:00 Dany Carias [facility] ASSIGNMENT OF BENEFITS 2020-08-27 15:01:02 Doctor Unassigned, No [facility] POCT URINALYSIS 2020-07-30 16:02:00 Dany Cairas [facility] POCT URINALYSIS 2020-07-01 19:24:00 Dany Carias [facility] POCT URINALYSIS 2020-06-17 13:56:00 Dany Carias [facility] RAPID STREP SCREEN FOR 2020-06-04 02:00:00 Julio Da Silva [facility] GROUP A Medical Branch COVID-19 (ID NOW RAPID 2020-06-04 02:00:00 Julio Da Silva [facility] TESTING) [facility] POCT URINALYSIS 2020-05-13 15:06:00 Dany Carias [facility] POCT TEST 2020-04-03 05:44:00 Yoshi Esparza [facility] URINALYSIS 2020-04-03 05:30:[address] [facility] POCT TEST 2020-04-01 15:37:00 Dany Carias [facility] POCT URINALYSIS 2020-04-01 15:36:00 Dany Carias [facility] ASSIGNMENT OF BENEFITS 2020-04-01 15:15:16 Doctor Unassigned, No [facility] XR SPINE THORACIC 4 VW 2019-09-21 17:31:22 Yoseph Thakkar A [facility] XR SPINE THORACIC 4 2019-09-21 17:31:22 Yoseph Thakkar A [facility] XR CERVICAL SPINE 4 2019-09-21 16:12:52 Sandra Rodrieleuterioful A [facility] XR CERVICAL SPINE 4 2019-09-21 16:12:52 Yoseph [facility]akkar [facility] ASSIGNMENT OF BENEFITS 2019-09-20 14:56:33 Doctor Unassigned, No [facility] [place] ASSIGNMENT OF BENEFITS 2019-08-20 01:45:49 Doctor Unassigned, No [facility] CONSENT/REFUSAL FOR 2019-08-20 01:44:04 Doctor Unassigned, No [facility] DIAGNOSIS AND TREATMENT [facility] [place] Encounters Start End Encounter Admission Attending Care Care Encounter Source Date/Time Date/Time Type Type Clinicians Facility Department ID 2020-12-07 Emergency [facility] [id number] Univers 15:42:49 ity of [facility] 2020-12-07 Emergency [facility] [id number] Univers 01:14:36 ity of [facility] 2020-12-05 Emergency [facility] [id number] Univers 06:56:18 ity of [facility] 2020-12-05 Emergency [facility] [id number] Univers 06:14:29 ity of [facility] 2019-08-22 Inpatient HCACL MALACHI [id number] [facility] 08:59:00 [id number] [facility] 2021-04-03 2021-04-03 Outpatient R SANDRA [facility] [id number] Univers 13:30:00 13:30:00 WONDIFUL [id number] ity o f [facility] 2021-04-03 2021-04-03 Outpatient R SANDRA [facility] [id number] Univers 13:30:00 13:30:00 WONDIFUL ity o f [facility] 2021-04-02 2021-04-02 Outpatient R SANDRA [facility] [id number] Univers 11:00:00 11:00:00 WONDIFUL [id number] ity o f [facility] 2021-03-27 2021-03-27 Emergency X RANJITH, [facility] ERT [id number] Univers 02:58:00 04:43:00 JOB itisac [facility] 2021-03-27 2021-03-27 Emergency Ranjith, [facility] [id number] Univers 02:58:00 04:43:00 Job VÁSQUEZ [id number] ity [facility] [id number] [facility] [id number] [facility] 084 [place] 2021-03-27 2021-03-27 Orders Doctor KEARA 1.2.840.114 [id number] Univers 00:00:00 00:00:00 Only Unassigned, CASI 350.1.13.10 [facility] 4.2.7.2.686 Jaison as [id number] [facility] 009 Branch 2020-11-25 2020-11-27 Inpatient X ADUM, [facility] KYLE [id number] Univers 13:14:00 12:30:00 JIMENA [facility] 2020-11-26 2020-11-26 Outpatient INDUCTION, [facility] [id number] Univers 08:00:00 08:00:00 [facility] [id number] [facility] 2020-11-25 2020-11-26 [facility] 1.2.840.114 [id number] Univers 20:45:00 00:47:00 Event Carine [place] [id number] i ty of [place] 4.2.7.2.686 [facility] [id number] [place] [id number] [place] 2020-11-24 2020-11-24 [facility] 1.2.840.114 [id number] Univers 00:00:00 00:00:00 Dany Banks DIRECTOR TRADING 350.1.13.10 ity [facility] 4.2.7.2.686 Jaison as MATERNAL [id number] Med ical & CHILD [address] [place] [address] 2020-11-20 2020-11-20 [facility] [id number] Univers 10:15:00 10:15:00 NORA [id number] [facility] 2020-11-20 2020-11-20 Outpatient Jocelyn SANCHEZ [facility] [id number] Univers 10:15:00 10:15:00 NORA isac [facility] 2020-11-17 2020-11-17 Telephone [facility] 1.2.840.114 [id number] Univers 00:00:00 00:00:00 Nora Montoya DIRECTOR TRADING 350.1.13.10 it y of REGIONAL 4.2.7.2.686 Jaison as MATERNAL [id number] Med ical & CHILD [address] [place] [address] 2020-11-10 2020-11-10 Outpatient Jocelyn SANCHEZ [facility] [id number] Univers 10:30:00 10:30:00 NORA [id number] [facility] 2020-11-10 2020-11-10 [facility] [id number] Univers 10:30:00 10:30:00 NORA [facility] 2020-10-30 2020-10-30 [facility] [id number] Univers 12:45:00 12:45:00 NORA [id number] [facility] 2020-10-30 2020-10-30 [facility] [id number] Univers 12:45:00 12:45:00 NORA [facility] 2020-10-16 2020-10-16 [facility]ine [facility] [id number] Univers 14:23:36 15:09:33 Nora Montoya DIRECTOR TRADING 350.1.13.10 i ty of Visit REGIONAL 4.2.7.2.686 Jaison as MATERNAL [id number] [facility] [address] [place] [address] 2020-10-16 2020-10-16 Outpatient Jocelyn SANCHEZ [facility] [id number] Univers 13:00:00 13:00:00 NORA [id number] [facility] 2020-10-16 2020-10-16 [facility] [id number] Univers 13:00:00 13:00:00 NORA vance [facility] 2020-10-16 2020-10-16 Orders Doctor KEARA 1.2.840.114 [id number] Univers 00:00:00 00:00:00 Only Unassigned, CASI 350.1.13.10 ity of [place] [facility] 4.2.7.2.686 Jaison as [id number] [address] 2020-10-15 2020-10-15 Outpatient Jocelyn CARIAS [facility] [id number] Univers 09:45:00 09:45:00 ROSMARYBETH [id number] ity o f [facility] 2020-10-15 2020-10-15 Outpatient Jocelyn CARIAS [facility] [id number] Univers 09:45:00 09:45:00 NIALLA ity o [facility] 2020-10-07 2020-10-07 [facility] [id number] Univers 08:00:00 08:00:00 [facility]A [id number] [facility] 2020-10-07 2020-10-07 [facility] [id number] Univers 08:00:00 08:00:00 NORA isac [facility] 2020-09-30 2020-09-30 Outpatient Jocelyn CARIAS [facility] [id number] Univers 18:00:00 18:00:00 DANY ity o [facility] 2020-09-30 2020-09-30 Outpatient Jocelyn CARIAS [facility] [id number] Univers 11:45:00 11:45:00 DANY [id number] ity o [facility] 2020-09-30 2020-09-30 Outpatient Jocelyn CARIAS [facility] [id number] Univers 11:45:00 11:45:00 FELICITASNDA ity o [facility] 2020-09-29 2020-09-29 Outpatient Jocelyn CARIAS [facility] [id number] Univers 16:45:00 16:45:00 DANY [id number] ity o [facility] 2020-09-29 2020-09-29 [facility] [id number] Univers 16:45:00 16:45:00 DANY boyery o f [facility] 2020-09-15 2020-09-15 Routine [facility] 1.2.840.114 [id number] Univers 13:58:57 15:37:45 Dany R DIRECTOR TRADING 350.1.13.10 ity of Visit REGIONAL 4.2.7.2.686 Jaison as MATERNAL [id number] Med ical & CHILD [address] [place] [address] 2020-09-15 2020-09-15 [facility] [id number] Univers 13:15:00 13:15:00 DANY boyery o f [facility] 2020-09-12 2020-09-12 Nurse Leidy Duran 1.2.840.114 [id number] Univers 00:00:00 00:00:00 Triage CASI 350.1.13.10 it y of HOSPITAL 4.2.7.2.686 Jaison as [id number] [facility] 019 [place] 2020-08-29 2020-08-29 Telephone NurseDrake [facility] 1.2.840.114 [id number] Univers 00:00:00 00:00:00 [facility] 350.1.13.10 ity of Surgical 4.2.7.2.686 Jaison as Specialti [id number] Ia dical es [address] [facility] 2020-08-28 2020-08-28 [facility] 1.2.840.114 [id number] 15:21:38 23:59:00 Encounter [place] 350.1.13.10 [place] 4.2.7.2.686 [place] [id number] 2020-08-28 2020-08-28 [facility] 1.2.840.114 [id number] Univers 15:21:38 23:59:00 Encounter [place] 350.1.13.10 ity of [place]2.7.2.686 [place] [id number] [facility] 807 [place] 2020-08-28 2020-08-28 Urgent Vipul [facility] 1.2.840.114 [id number] Univers 14:13:24 15:23:42 Care Toby [place] [facility] 350.1.13.10 [facility] 4.2.7.2.686 Jaison as Professio [id number] Ia dical [address] Office [address] 2020-08-28 2020-08-28 Urgent Vipul [facility] 1.2.840.114 [id number] 14:13:24 15:23:42 Care [facility] 350.1.13.10 [place] 4.2.7.2.686 Professio [id number] [place] [address] [address] 2020-08-28 2020-08-28 Outpatient R MERCY [facility] [id number] Univers 14:20:00 14:20:00 TOBY [facility] 2020-08-28 2020-08-28 Outpatient R [facility] [id number] Univers 13:00:00 13:00:00 [id number] [facility] 2020-08-27 2020-08-27 Routine [facility] 1.2.840.114 [id number] Univers 10:01:23 11:16:37 Roshunda R DIRECTOR TRADING 350.1.13.10 ity of Visit REGIONAL 4.2.7.2.686 Jaison as MATERNAL [id number] Med ical & CHILD [address] [place] [address] 2020-08-27 2020-08-27 Routine [facility] 1.2.840.114 [id number] 10:01:23 11:16:37 Roshunda R DIRECTOR TRADING 350.1.13.10 Visit REGIONAL 4.2.7.2.686 MATERNAL [id number] & CHILD [address] [place] [address] 2020-08-27 2020-08-27 [facility] [id number] Univers 09:00:00 09:00:00 ROSHUNDA [id number] ity o [facility] 2020-08-27 2020-08-27 Outpatient R JV [facility] [id number] Univers 09:00:00 09:00:00 ROSHUNDA ity o [facility] 2020-08-27 2020-08-27 Orders Doctor KEARA 1.2.840.114 [id number] Univers 00:00:00 00:00:00 Only Unassigned, CASI 350.1.13.10 ity of [place] [facility] 4.2.7.2.686 Jaison as [id number] [facility] 009 Branch 2020-08-27 2020-08-27 Orders Doctor KEARA 1.2.840.114 [id number] 00:00:00 00:00:00 Only Unassigned, CASI 350.1.13.10 [place] [facility] 4.2.7.2.686 [id number] 2020-08-19 2020-08-19 [employer] 1, [facility] Room UNIVERSIT 1 .2.840.114 [id number] Univers 14:50:51 15:35:51 Visit Arcelia Johnathon Daniel Y HEALTH 350.1 .13.10 ity of CLINICS 4.2.7.2.[place] [id number] [facility] 104 Branch 2020-08-19 2020-08-19 [employer] 1, [facility] UNIVERSIT 1.2.840.11 [id number] 14:50:51 15:35:51 Visit [facility] Room Y HEALTH 350.1.13.10 CLINICS 4.2.7.2.686 [id number] 2020-08-19 2020-08-19 Outpatient P [facility] [id number] Univers 14:15:00 14:15:00 [id number] ity [facility] 2020-08-19 2020-08-19 Outpatient P [facility] [id number] Univers 14:15:00 14:15:00 ity [facility] 2020-08-11 2020-08-11 Outpatient R [facility] [id number] Univers 08:45:00 08:45:00 [id number] ity [facility] 2020-08-11 2020-08-11 Outpatient P [facility] [id number] Univers 08:45:00 08:45:00 ity [facility] 2020-08-06 2020-08-06 Nurse KEARA Jiméenz [id number] Univers 00:00:00 00:00:00 Triage Mike CASI 350.1.13.10 it y of HOSPITAL 4.2.7.2.686 Jaison as [id number] [address] 2020-08-06 2020-08-06 [facility] [id number] Univers 00:00:00 00:00:00 Roshunda R DIRECTOR TRADING 350.1.13.10 ity of REGIONAL 4.2.7.2.686 Jaison as MATERNAL [id number] [facility] & CHILD [address] [place] [address] 2020-08-06 2020-08-06 Nurse KEARA Jiménez [id number] 00:00:00 00:00:00 Triage Mike CASI 350.1.13.10 [facility] CENTER [id number] [facility] 2020-07-30 2020-07-30 Routine [facility] 1.2.840.114 [id number] Univers 10:22:14 10:37:14 Roshunda R DIRECTOR TRADING 350.1.13.10 ity of Visit REGIONAL 4.2.7.2.686 Jaison as MATERNAL [phone] [facility] & [address] 2020-07-30 2020-07-30 Outpatient Jocelyn CARIAS [facility] [id number] -[id number] Univers 10:15:00 10:15:00 FELICITASNDMariah [id number] ity o f [facility] 2020-07-30 2020-07-30 Outpatient Jocelyn CARIAS [facility] [id number] Univers 10:15:00 10:15:00 ROSHUNDA ity o f [facility] 2020-07-21 2020-07-21 [facility] [id number] Univers 13:45:00 13:45:00 ROSHUNDA ity o [facility] 2020-07-21 2020-07-21 Outpatient [facility] [id number] -[id number] Univers 10:30:00 10:30:00 [id number] ity of [facility] 2020-07-17 2020-07-17 Outpatient R JV [facility] [id number] -20 Univers 09:00:00 09:00:00 DANY [id number] ity o f [facility] 2020-07-17 2020-07-17 Outpatient R JV [facility] [id number] Univers 09:00:00 09:00:00 ROSBENJAMINNDA ity o f [facility] 2020-07-14 2020-07-14 Drafter Tool Design [facility] 1.2 .840.114 [id number] Univers 09:45:41 11:00:41 Visit Jordan Domingo DIRECTOR TRADING 350.1.13.10 ity of REGIONAL 4.2.7.2.686 Jaison as MATERNAL [id number] [facility] & CHILD [address] [place] [address] 2020-07-14 2020-07-14 Outpatient R [facility] [id number] -20 Univers 10:00:00 10:00:00 [id number] ity [facility] 2020-07-14 2020-07-14 Outpatient P [facility] [id number] Univers 10:00:00 10:00:00 ity of [facility] 2020-07-14 2020-07-14 Khoi Sanchez [facility] 1.2.521.392 [id number] Univers 00:00:00 00:00:00 Management Nora Montoya DIRECTOR TRADING 350.1.13.10 ity of REGIONAL 4.2.7.2.686 Jaison as MATERNAL [id number] [facility] & [address] 2020-07-01 2020-07-01 [facility] 1.2.840.114 [id number] Univers 13:52:00 14:58:28 Rosmarybeth R DIRECTOR TRADING 350.1.13.10 ity of Visit REGIONAL 4.2.7.2.686 Jaison as MATERNAL [id number] [facility] & CHILD [address] [place] [address] 2020-07-01 2020-07-01 Outpatient CARIAS [facility] [id number] -[id number] Univers 13:45:00 13:45:00 DANY [id number] ity o f [facility] 2020-07-01 2020-07-01 Outpatient Jocelyn CARIAS [facility] [id number] Univers 13:45:00 13:45:00 ROSHUNDA ity o [facility] 2020-07-01 2020-07-01 Telephone Jv [facility] 1.2.086.924 [id number] Univers 00:00:00 00:00:00 Rosbenjaminnda R DIRECTOR TRADING 350.1.13.10 ity of REGIONAL 4.2.7.2.686 Jaison as MATERNAL [phone] [facility] ical & CHILD [address] [place] [address] 2020-06-17 2020-06-17 [facility] 1.2.840.114 [id number] Univers 08:48:55 09:25:15 Rosbenjaminnda R DIRECTOR TRADING 350.1.13.10 ity of Visit REGIONAL 4.2.7.2.686 Jaison as MATERNAL [phone] [facility] & [address] 2020-06-17 2020-06-17 Outpatient R CARIAS, [facility] [id number] -[id number] Univers 08:45:00 08:45:00 ROSHUNDA [id number] ity o [facility] 2020-06-17 2020-06-17 Outpatient R JV [facility] [id number] Univers 08:45:00 08:45:00 ROSHUNDA ity o [facility] 2020-06-10 2020-06-10 Outpatient Jocelyn CARIAS, [facility] [id number] -[id number] Univers 15:45:00 15:45:00 ROSHUNDA [id number] ity o [facility] 2020-06-10 2020-06-10 Outpatient Jocelyn CARIAS, [facility] [id number] Univers 15:45:00 15:45:00 ROSHUNDA ity o [facility] 2020-06-03 2020-06-03 Emergency Da Silva, TRAUMA 1.2.194.531 [id number] Univers 20:19:00 22:12:00 [facility] 350.1.13.10 [place] [id number] [address] 2020-05-13 2020-05-13 [facility] 1.2.840.114 [id number] Univers 09:59:20 10:14:20 Roshunda R DIRECTOR TRADING 350.1.13.10 ity of Visit [facility] 4.2.7.2.686 Jaison as MATERNAL [id number] Med ical & CHILD [address] [place] [address] 2020-05-13 2020-05-13 Outpatient Jocelyn CARIAS [facility] [id number] -[id number] Univers 10:00:00 10:00:00 ROSNDA [id number] ity o [facility] 2020-05-13 2020-05-13 [facility] [id number] Univers 10:00:00 10:00:00 [facility] 2020-05-06 2020-05-06 Outpatient [facility] [id number] -[id number] Univers 11:00:00 11:00:00 [facility] [id number] 2020-05-06 2020-05-06 Outpatient Jocelyn CARIAS [facility] [id number] Univers 11:00:00 11:00:00 [facility] 2020-04-29 2020-04-29 Outpatient [facility] [id number] -20 Univers 10:45:00 10:45:00 [facility] [id number] [facility] 2020-04-29 2020-04-29 Outpatient [facility] [id number] Univers 10:45:00 10:45:00 [facility] 2020-04-29 2020-04-29 Telephone [facility] 1.2.736.095 [id number] Univers 00:00:00 00:00:00 Roshunda R DIRECTOR TRADING 350.1.13.10 ity of REGIONAL 4.2.7.2.686 Jaison as MATERNAL [id number] [facility] & CHILD [address] [place] [address] 2020-04-22 2020-04-22 KEARA Arrieta 1.2.840.114 [id number] Univers 00:00:00 00:00:00 Triage Lynn LANCE 350.1.13.10 i ty of [facility] 4.2.7.2.686 Jaison as [id number] [address] 2020-04-09 2020-04-09 Case Jv [facility] 1.2.840.114 [id number] Univers 00:00:00 00:00:00 Management Dany R DIRECTOR TRADING 350.1.13.10 ity of [facility] 4.2.7.2.686 Jaison as MATERNAL [id number] Med ical & CHILD [address] [place] [address] 2020-04-08 2020-04-08 [employer] Design [facility] 1.2 .840.114 [id number] Univers 11:32:55 12:14:18 Visit Tracey Jamil DIRECTOR TRADING 350.1.13.10 ity of [facility] 4.2.7.2.686 Jaison as MATERNAL [id number] Med ical & CHILD [facility] 2020-04-08 2020-04-08 Outpatient R [facility] [id number] -[id number] Univers 11:30:00 11:30:00 [id number] ity [facility] 2020-04-08 2020-04-08 Outpatient P [facility] [id number] Univers 11:30:00 11:30:00 ity of [facility] 2020-04-08 2020-04-08 Abstract Jv [facility] 1.2.840.114 [id number] Univers 00:00:00 00:00:00 Dany R DIRECTOR TRADING 350.1.13.10 ity of [facility] 4.2.7.2.686 Jaison as MATERNAL [id number] [facility] ica & CHILD [address] [place] [address] 2020-04-02 2020-04-03 Emergency Vilma [facility] 1.2.840.114 [id number] Univers 23:15:00 01:12:00 [facility] 350.1.13.10 it y of [facility] 4.2.7.2.[address] [place] [facility] [phone] [address] ([facility]) 2020-04-02 2020-04-02 Telephone Jv [facility] 1.2.982.858 [id number] Univers 00:00:00 00:00:00 Felicitasnda R DIRECTOR TRADING 350.1.13.10 ity of REGIONAL 4.2.7.2.686 Jaison as MATERNAL [phone] [facility] ical & CHILD [address] [place] [address] 2020-04-02 2020-04-02 Telephone Jv [facility] 1.2.817.501 [id number] Univers 00:00:00 00:00:00 Felicitasnda R DIRECTOR TRADING 350.1.13.10 ity of REGIONAL 4.2.7.2.686 Jaison as MATERNAL [phone] [facility] CHILD [address] [place] [address] 2020-04-01 2020-04-01 Initial Jv [facility] 1.2.840.114 [id number] Univers 09:25:04 11:05:29 Nialla R DIRECTOR TRADING 350.1.13.10 ity of Visit REGIONAL 4.2.7.2.686 Jaison as MATERNAL [phone] [facility] CHILD [address] [place] [address] 2020-04-01 2020-04-01 Outpatient [facility] [id number] -[id number] Univers 08:30:00 08:30:00 [id number] ity of [facility] 2020-04-01 2020-04-01 Outpatient R [facility] [id number] Univers 08:30:00 08:30:00 ity of [facility] 2020-04-01 2020-04-01 Orders Doctor SARAH 1.2.840.114 [id number] Univers 00:00:00 00:00:00 Only Unassigned, CASI 350.1.13.10 ity of [place] [facility] 4.2.7.2.686 Jaison as [phone] [address] 2019-12-18 2019-12-18 Outpatient R [facility] [id number] -[id number] Univers 09:30:00 09:30:00 [id number] ity of [facility] 2019-12-18 2019-12-18 Outpatient R [facility] [id number] Univers 09:30:00 09:30:00 ity of [facility] 2019-10-29 2019-10-29 Outpatient R SANDRA [facility] [id number] Univers 10:30:00 10:30:00 WONDIFUL [id number] ity o f [facility] 2019-09-26 2019-09-26 Patient Sandra [facility] 1.2.840.114 [id number] Univers 00:00:00 00:00:00 Secure Msg Wondiful A [place] 350.1.13.10 ity of [place] Profess[place] [phone] Ia dical community health 044 [facility] 2019-09-21 2019-09-21 [facility] 1.2.473.532 [id number] Univers 11:10:44 23:59:00 Encounter Wondiful A [place] 350.1.13.10 ity of [place].2.686 [place] [phone] [address] 2019-09-21 2019-09-21 [facility] 1.2.357.350 [id number] Univers 11:00:00 11:09:00 Encounter Wondiful A [place] 350.1.13.10 ity of [place].2.686 [place] [id number] [address] 2019-09-21 2019-09-21 [facility] 1.2.771.632 [id number] Univers 09:56:26 10:59:00 Encounter Wondiful A [place] 350.1.13.10 ity of [place].2.[place] [id number] [address] 2019-09-21 2019-09-21 Outpatient R SANDRA [facility] [id number] Univers 10:00:00 10:00:00 WONDIFUL [id number] ity o f [facility] 2019-09-21 2019-09-21 Outpatient R SANDRA [facility] [id number] Univers 00:00:00 00:00:00 WONDIFUL ity o f [facility] 2019-09-21 2019-09-21 Case [facility] 1.2.840.114 [id number] Univers 00:00:00 00:00:00 Management Wondiful A [place] 350.1.13.10 ity of [place] [id number] Ia dical nal 044 [facility] 2019-09-21 2019-09-21 Patient Sandra [facility] 1.2.840.114 [id number] Univers 00:00:00 00:00:00 Secure Msg Wondiful A [place] 350.1.13.10 ity of [place].2.[place] [phone] Ia dical nal 044 [facility] 2019-09-20 2019-09-20 Laboratory Only, Adc Test [facility] 1.2.840. 114 [id number] Univers 10:01:43 10:16:43 Only Kevan Beaulieu [place] 350.1.13.10 ity of [place].2.[place] [phone] [facility] [address] [place] 2019-09-20 2019-09-20 Drafter Tool Design Naomi, Adc Lab Main [facility] 1.2.8 40.114 [id number] Univers 09:55:41 10:10:41 Visit Yoseph Thakkar [place] 350.1.13. 10 ity of [place].2.[place] [phone] [facility] 353 [facility] 2019-09-20 2019-09-20 [facility] [id number] Univers 09:30:00 09:30:00 WONDIFUL [id number] ity o f [facility] 2019-09-20 2019-09-20 [facility] [id number] Univers 00:00:00 00:00:00 WONDIFUL ity o f [facility] 2019-09-20 2019-09-20 Orders Doctor KEARA 1.2.840.114 [id number] Univers 00:00:00 00:00:00 Only Unassigned, CASI 350.1.13.10 ity of [place] [facility] 4.2.7.2.686 Jaison as [phone] [facility] [address] [place] 2019-09-19 2019-09-19 Telemedici [facility] 1.2.840.114 [id number] Univers 13:45:12 15:57:17 ne Visit Wondiful A [place] 350.1.13.10 ity of [place].2.[place] [id number] [address] 2019-09-19 2019-09-19 [facility] [id number] Univers 09:45:00 09:45:00 WONDIFUL ity o f [facility] 2019-09-19 2019-09-19 [facility] [id number]-20 Univers 08:45:00 08:45:00 WONDIFUL [id number] ity o f [facility] 2019-09-19 2019-09-19 Telephone [facility] 1.2.840.114 [id number] Univers 00:00:00 00:00:00 Wondiful A Health 350.1.13.10 ity of [place] 4.2.7.2.686 Jaison as Professio [phone] [address] 2019-09-14 2019-09-14 Urgent Pob1, Acute Care Clinic [facility] 1. 2.840.114 [id number] Univers 12:46:19 13:54:37 Tyrese Lewis 350.1.13.10 ity of [place] 4.2.7.2.686 Jaison as Professio [phone] [address] 2019-09-14 2019-09-14 Outpatient R [facility] [id number] -[id number] Univers 13:00:00 13:00:00 [id number] ity [facility] 2019-09-14 2019-09-14 Outpatient R DELMAR [facility] [id number] Univers 13:00:00 13:00:00 TYRESE ity [facility] 2019-08-28 2019-08-28 [facility] [id number] -[id number] Univers 11:00:00 11:00:00 SENDIL [id number] ity [facility] 2019-08-28 2019-08-28 Outpatient [facility] [id number] Univers 11:00:00 11:00:00 SENDIL ity of [facility] 2019-08-23 2019-08-23 Urgent Provider, [facility] 1.2.840.114 [id number] Univers 15:07:25 16:34:23 Care Tyrese Baca 350.1.13.10 ity of [place] 4.2.7.2.686 Jaison as [facility] [phone] Ia luis alberto [address] Office Building [employer] 2019-08-23 2019-08-23 Outpatient R [facility] [id number] -[id number] Univers 15:40:00 15:40:00 [id number] ity [facility] 2019-08-23 2019-08-23 Outpatient R [facility] [id number] Univers 15:40:00 15:40:00 ity [facility] 2019-08-22 2019-08-22 Emergency Corazon, [facility] 1.2.248.007 [id number] Univers 14:16:15 16:10:00 Kvng Banks [facility] 350.1.13.10 it y of [facility] 4[place]2.7.2.[address] [place] [facility] [phone] [address] ([facility]) 2019-08-22 2019-08-22 Nurse Nurse, V[facility] 1.2 .840.114 [id number] Univers 13:26:07 13:41:07 Visit Unknown, Attending SPECIALTY 350.1.13. 10 ity of [facility] 4.2.7.2.686 [facility] AT [phone] Ia luis alberto HERNANDE[address] 2019-08-22 2019-08-22 Outpatient R [facility] [id number] -[id number] Univers 13:30:00 13:30:00 [id number] ity of [facility] 2019-08-22 2019-08-22 Outpatient R UNKNOWN, [facility] [id number] Univers 13:30:00 13:30:00 ATTENDING ity [facility] 2019-08-22 2019-08-22 Telephone KEARA Rivera 1.2.840.114 [id number] Univers 00:00:00 00:00:00 Simba LANCE 350.1.13.10 it y of [facility] 4.2.7.2.686 Jaison as [id number] [facility] [address] 2019-08-19 2019-08-19 Emergency MADAN Rivera 1.2.840.114 [id number] Univers 21:26:07 21:27:00 Simba Vásquez 350.1.13.10 i ty of [place].2.[place] [phone] [facility] [address] 2019-08-19 2019-08-19 Orders Doctor KEARA 1.2.840.114 [id number] Univers 00:00:00 00:00:00 Only Unassigned, CASI 350.1.13.10 ity of [place] [facility] 4.2.7.2.686 Jaison as [phone] [facility] [address] Results Test Description Test Time Test Comments Results Result Comments Source SARS-CoV-2 (COVID-19), RT-PCR/TMA 2021-02-25 15:19:39 Test Item Value Reference Range Interpretation Comme nts SARS-CoV-2 INTERPRETATION NEGATIVE SEE NOTE S ARS-CoV-2 RNA NOT (test code = 92888) DETECTED Negative results do not preclude SARS-C [...] is h igh. SOURCE (test code = 39311) NASOPHARYNGEAL Note: Methodology is Dannie Stefani Real-Time RT-PCR. The expected r esult or reference range is NEGATIVE (Not Detected). For more information regarding COVID -19 testing to include clinica linformation, methodology det ail, intended use, FDA author ization andrecommended fact sheets for patients or hea lthcare providers, see SmartRx Announcement: S ARS-CoV-2 (COVID-19) by N JUAN at URL below (note,fact shee ts are provided by method given in report:https:// www.[employer]ate/denton solo/krystal t-communications/ Alternatively, see downloadable PDF fact sheet at:https://www. [employer]/COVID -19-RT-PCR UNLESS OTHERWISE INDIC ATED, ALL TESTING PERFORMED [facility] PATHOLOGY [facility] [place] [address] LABORATORY DIRE CTOR: OCTAVIANO GUZMAN M.D. CLIA NUMBER [id number] [place]. [id number] POCT URINALYSIS W SPECIFIC [id number] 19:37:00 Test Item Value Reference Range Interpretation [...] . [facility] URINALYSIS W SPECIFIC [id number] 19:37:00 Test Item Value Reference Range Interpretation [...] . [facility] URINALYSIS W SPECIFIC [id number] 19:37:00 Test Item Value Reference Range Interpretation [...] 3267) Lab Interpretation (test code = Normal 23895-6) [facility] URINALYSIS W SPECIFIC [id number] 19:37:00 Test Item Value Reference Range Interpretation [...] 3267) Lab Interpretation (test code = Normal 06609-3) [facility] URINALYSIS W SPECIFIC [id number] 19:37:00 Test Item Value Reference Range Interpretation [...] 3267) Lab Interpretation (test code = Normal 09387-1) [facility] GRP A STREP (MOLECULAR)2020-08-28 19:43:00 Test Item Value Reference Range Interpretation Comments POCT GP A STREP (test Negative Negative - code = 90032-5) Negative HENRIK (test code = HENRIK) accurate development and interpretation of all internal controls Lab Interpretation Normal (test code = 85604-4) [facility] URINALYSIS W SPECIFIC [id number] 16:49:00 Test Item Value Reference Range Interpretation [...] 3267) Lab Interpretation (test code = Normal 19789-7) [facility] URINALYSIS W SPECIFIC [id number] 16:02:00 Test Item Value Reference Range Interpretation [...] 3267) Lab Interpretation (test code = Normal 47722-1) [facility] URINALYSIS W SPECIFIC [id number] 19:24:00 Test Item Value Reference Range Interpretation [...] 3267) Lab Interpretation (test code = Normal 37655-3) [facility]CIFIC [id number] 13:57:00 Test Item Value Reference Range Interpretation [...] 3267) Lab Interpretation (test code = Normal 76651-5) [facility] (ID NOW RAPID TESTING)2020-06-04 02:35:01 Test Item Value Reference Range Interpretation Comments SARS-CoV-2 Rapid ID NOW Not Detected Not Detected (test code = 92640-1) HENRIK (test code = HENRIK) ID NOW COVID-19 Assay is an isothermal nucleic acid amplification test intended for the qualitative detection of nucleic acid from SARS-CoV-2 viral RNA in nasopharyngeal (PUBLIC AID ELIGIBILITY ASSISTANT) specimens. It is used under Emergency Use [...] indicated. Lab Interpretation Normal (test code = 02429-8) [facility] STREP SCREEN FOR GROUP [id number] 02:30:35 Test Item Value Reference Range Interpretation Comments Streptococcus pyogenes (group A) Negative Negative antigen (test code = 70264-4) Lab Interpretation (test code = Normal 38659-9) [facility] W SPECIFIC [id number] 15:06:00 Test Item Value Reference Range Interpretation [...] POCT U APPEAR (test code = 3267) [facility]2021-02-25 05:46:00 Test Item Value Reference Range Interpretation Comments APPEARANCE (test code = Clear Clear 7770350379) COLOR (test code = Straw Yellow A 1586982508) PH (test code = 4.8-8.0 9222965128) SP GRAVITY (test code = 1.003-1.030 1650317752) GLU U QUAL (test code = Normal Normal 5356045706) BLOOD (test code = Negative Negative 6889307685) KETONES (test code = 20 mg/dL Negative A 9878751888) PROTEIN (test code = Negative Negative 2887-8) UROBILIN (test code = Normal Normal 5124110410) BILIRUBIN (test code = Negative Negative 0768135046) NITRITE (test code = Negative Negative 2587599510) LEUK CHASE (test code = Negative Negative 9968894579) RBC/HPF (test code = See_Comment [Autom ated message] 2575702584) The system [employer] generated this result transmitted ref erence range: 0 - 3 HP F. The reference range was not used to int erpret this result as normal/abnormal . WBC/HPF (test code = See_Comment [Autom ated message] 5461000815) The system [employer] generated this result transmitted ref erence range: 0 - 5 HP F. The reference range was not used to int erpret this result as normal/abnormal . BACTERIA (test code = Negative Negative 9547069863) MUCOUS (test code = Slight Negative LPF A 4982691086) SQ EPITH (test code = See_Comment [Auto mated message] 1313633719) The system [employer] generated this result transmitted ref erence range: <=2 HPF. The reference range was not used to int erpret this result as normal/abnormal . Lab Interpretation (test Abnormal code = 81958-0) [facility] [id number] 05:44:00 Test Item Value Reference Range Interpretation Comments POCT PREG (test code = 1605) Positive On board controls acceptable with Present C Line (test code = 3574) POCT PREG LOT # (test code = 3575) [id number] POCT PREG TEST DATE (test 2021-11-06 code = 3576) Lab Interpretation (test code = Normal 44583-7) [facility] [id number] 15:37:00 Test Item Value Reference Range Interpretation Comments POCT PREG (test code = 1605) Positive On board controls acceptable with C Yes Line (test code = 3574) POCT PREG LOT # (test code = 3575) POCT PREG TEST DATE (test code = 3576) [facility] [id number] 15:37:00 Test Item Value Reference Range Interpretation Comments POCT PREG (test code = 1605) Positive On board controls acceptable with C Yes Line (test code = 3574) POCT PREG LOT # (test code = 3575) POCT PREG TEST DATE (test code = 3576) [facility] URINALYSIS W SPECIFIC [id number] 15:36:00 Test Item Value Reference Range Interpretation [...] POCT U APPEAR (test code = 3267) [facility] W SPECIFIC [id number] 15:36:00 Test Item Value Reference Range Interpretation [...] POCT U APPEAR (test code = 3267) [facility] 4 [id number] 18:12:32XR SPINE THORACIC 4 VW HISTORY: Female [...] normal alignment.No significant degenerative changes are present. [facility] CERV[facility] SPINE 4 [id number] 16:15:551. ?No acute osseous findings are seen.2. ?Mild curvature abnormalities without degenerative changes.HISTORY:34yo F with chest pain and LUE discomfort of unknown cause, work-upfor possible radiculopathy was recommended by her Diagnostic Sales Specialist. TECHNIQUE: Frontal, oblique and lateral views of the cervical spine wereobtained. COMPARISON:None. FINDINGS: There is straightening of the cervical lordosis withpreserved sagittalalignment. The vertebral body heights are preserved. The craniocervicaljunction isunremarkable. No degenerative changes are seen. [facility], Radiant Results Inft User - 09/21/2019 11:16 AM CDTHISTORY:34yo F with chest pain and LUE discomfort of unknown cause, work- upfor possible radiculopathy was recommended by her Diagnostic Sales Specialist. TECHNIQUE: Frontal, oblique and lateral views of the cervical spine wereobtained. COMPARISON:None.FINDINGS:There is straightening of the cervical lordosis with preserved sagittalalignment. The vertebral body heights are preserved. The craniocervicaljunction isunremarkable. No degenerative changes are seen.IMPRESSION1. No acute osseous findings are seen.2. Mild curvature abnormalities without degenerative changes.[facility] COMPREHENSIVE METABOLIC [id number] 10:12:00 Test Item Value Reference Range Interpretation [...] 20-125 N TOTAL (test code = ALKP) [id number] 10:12:00 Test Item Value Reference Range Interpretation [...] may jett y by method. COMPREHENSIVE METABOLIC [id number] 10:11:00 Test Item Value Reference Range Interpretation [...] TOTAL (test IUnit/L 20-125 code = ALKP) [id number] 10:11:00 Test Item Value Reference Range Interpretation [...] results may jett y by method. PROTHROMBIN [id number] 09:59:00 Test Item Value Reference Range Interpretation [...] Infarction (t o prevent recurre nt infarct). [id number] 09:59:00 Test Item Value Reference Range Interpretation [...] TESTS AND APPROPRIATECLIN ICAL EUALUATIONS. CBC W/AUTO [id number] 09:56:00 Test Item Value Reference Range Interpretation [...] code = MDIFF) - XR CHEST 1 [id number] 09:56:00 FAX: Dallas Cain MD [phone] [place]: St: PRE Name: RAGHAVENDRA QUINN [facility] : 1985 Age/S: 34/F [address] [place] [address] Unit#: [id number] Loc: [place] [address] Phys: Dallas Cain MD Acct: [id number] Dis Date: Status: PRE ER PHONE #: [phone] Exam Date: 08/22/2019 1003 FAX #: [phone] Reason: Chest Pain EXAMS: CPT CODE: [id number] XR CHEST 1 V 18237 PROCEDURE: CHEST SINGLE VIEW INDICATION: Chest Pain COMPARISON: There are no previous relevant studies available for correlation. FINDINGS: The lungs are clear. No pleural abnormality. The cardiomediastinalsilhouette is normal for projection. The bony thorax is intact. IMPRESSION: Normal radiograph. SL: [id number] at 0956 Reported and signed by: Samson Sousa M.D. CC: Dallas Cain MD Technologist: RT Maddi(R) Trnscrd Date/Time/By: 08/22/2019 (0956) : By: Krissy Orig Print D/T: S: 08/22/2019 (1001) PAGE 1 Signed Report
[2021-04-29] MEDS ORDERED: LIDOCAINE JELLY 2%- 5 ML TUBE ONE (17:23)
--- NOTE | 2021-04-29 17:55 | EDPHYS ---
Physician Documentation [facility] Name: Goyo Solorio Age: 36 yrs Sex: Female : 1985 Arrival Date: 04/29/2021 Time: 15:28 Bed 9 Private MD: ED Physician Edu Rucker HPI: 04/29 17:40 This 36 yrs old Female presents to ER via Ambulatory with complaints of Facial rn Swelling, Mouth Problem. 17:40 The patient presents with pain, swelling. The problem is located in the right rn mandibular gingiva. 17:50 Onset: The symptoms/episode began/occurred today. Duration: The symptoms are rn continuous. Modifying factors: The symptoms are alleviated by nothing, the symptoms are aggravated by talking, touching. Associated signs and symptoms: Pertinent positives: pain, redness in area, swelling, Pertinent negatives: fever. Severity of symptoms: At their worst the symptoms were moderate, in the emergency department the symptoms are unchanged. The patient has not experienced similar symptoms in the past. The patient has been recently seen by a physician:. Seen by dentist today for tooth extraction, was not able to get numb despite multiple injections so sent home with abx and told to return, when got home noticed swelling along gumline on right side and pain, no drainage. Also noticed mild swelling to right cheek.. Historical: - Allergies: 15:34 No Known Allergies; ab2 - PMHx: 15:34 Anxiety; panic attack; ab2 - PSHx: 15:34 Appendectomy; IUD removal; ab2 - Immunization history:: Adult Immunizations up to date. - Social history:: Smoking status: Patient/guardian denies using tobacco, the patient reports quitting approximately 1 years ago. - Family history:: not pertinent. - Hospitalizations: : No recent hospitalization is reported. ROS: 17:50 Constitutional: Negative for fever, chills, and weight loss, ENT: + swelling and pain rn to right mandibular gingiva Neck: Negative for injury, pain, and swelling, Cardiovascular: Negative for chest pain, palpitations, and edema, Respiratory: Negative for shortness of breath, cough, wheezing, and pleuritic chest pain. Exam: 17:50 Constitutional: This is a well developed, well nourished patient who is awake, alert, rn and in no acute distress. Head/Face: + mild swelling of right buccal mucosa without mass or fluctuance ENT: + right mandibular swelling/fluctuance approx 1 cm diameter with tenderness and erythema, small amount of yellow/orange drainage Vital Signs: 15:32 BP 128 / 90; Pulse 102; Resp 18; Temp 98.8(TE); Pulse Ox 99% on R/A; Weight 81.65 kg; ab2 Height 5 ft. 2 in. (157.48 cm); Pain 10/10; 18:10 BP 119 / 78; Pulse 93; Resp 20; Pulse Ox 98% on R/A; ss7 15:32 Body Mass Index 32.92 (81.65 kg, 157.48 cm) ab2 Procedures: 17:50 I \T\ D: Incision and drainage was performed for an abscess of the right mandibular gum rn Anesthetized with lidocaine jelly. Incised with 18g needle. Drained small amount serosanguinous fluid. the patient tolerated the procedure well, mass deflated and feels much better. MDM: 16:55 Patient medically screened. rn 17:50 Differential diagnosis: dental caries, dental abscess. Data reviewed: vital signs, rn nurses notes, and as a result, I will discharge patient. Counseling: I had a detailed discussion with the patient and/or guardian regarding: the historical points, exam findings, and any diagnostic results supporting the discharge/admit diagnosis, the need for outpatient follow up, to return to the emergency department if symptoms worsen or persist or if there are any questions or concerns that arise at home. Response to treatment: the patient's symptoms have markedly improved after treatment, and as a result, I will discharge patient. Administered Medications: No medications were administered Disposition Summary: 04/29/21 17:55 Discharge Ordered Location: Home rn Problem: new rn Symptoms: have improved rn Condition: Stable rn Diagnosis - Cellulitis and abscess of mouth rn Followup: rn - With: Private Physician - When: As needed - Reason: Recheck today's complaints, Re-evaluation by your physician Discharge Instructions: - Discharge Summary Sheet rn - Dental Abscess rn Forms: - Medication Reconciliation Form rn - Thank You Letter rn - Antibiotic director of maternity services - Prescription Opioid Use rn - Work release form ss7 Prescriptions: - Clindamycin HCl 300 mg Oral Capsule - take 1 capsule by ORAL route every 6 hours for 10 days; 40 capsule; Refills: 0, rn Product Selection Permitted Signatures: Edu Rucker MD MD rn Bleininger, Alexis ab2 Corrections: (The following items were deleted from the chart) 16:39 16:39 I\T\D Setup ordered. ab2 ab2
--- NOTE | 2021-04-29 17:55 | ER ---
Nurse's Notes [facility] Name: Goyo Solorio Age: 36 yrs Sex: Female : 1985 Arrival Date: 04/29/2021 Time: 15:28 Bed 9 Private MD: Diagnosis: Cellulitis and abscess of mouth Presentation: 04/29 15:32 Chief complaint: Patient states: "I was here last night after I went to the dentist ab2 because the pain was so bad. But, today I woke up and my face is all swollen and there is something in there.". Coronavirus screen: Vaccine status: Patient reports receiving the 2nd dose of the covid vaccine. Client denies travel out of the [place] in the last 14 days. At this time, the client does not indicate any symptoms associated with coronavirus-19. Ebola Screen: Patient negative for fever greater than or equal to 101.5 degrees Fahrenheit, and additional compatible Ebola Virus Disease symptoms Patient denies exposure to infectious person. Patient denies travel to an Ebola-affected area in the 21 days before illness onset. No symptoms or risks identified at this time. Initial Sepsis Screen: Does the patient meet any 2 criteria? No. Patient's initial sepsis screen is negative. Does the patient have a suspected source of infection? No. Patient's initial sepsis screen is negative. Risk Assessment: Do you want to hurt yourself or someone else? Patient reports no desire to harm self or others. Onset of symptoms is unknown. 15:32 Method Of Arrival: Ambulatory ab2 15:32 Acuity: EUGENIO 3 ab2 Triage Assessment: 15:35 General: Appears in no apparent distress. uncomfortable, Behavior is anxious, crying. ab2 Pain: Complains of pain in right jaw Pain currently is 10 out of 10 on a pain scale. EENT: Swelling to right side . Musculoskeletal: Swelling present in right jaw. Historical: - Allergies: 15:34 No Known Allergies; ab2 - PMHx: 15:34 Anxiety; panic attack; ab2 - PSHx: 15:34 Appendectomy; IUD removal; ab2 - Immunization history:: Adult Immunizations up to date. - Social history:: Smoking status: Patient/guardian denies using tobacco, the patient reports quitting approximately 1 years ago. - Family history:: not pertinent. - Hospitalizations: : No recent hospitalization is reported. Screenin:43 Abuse screen: Denies threats or abuse. Nutritional screening: No deficits noted. ss7 Tuberculosis screening: No symptoms or risk factors identified. Fall Risk None identified. Assessment: 16:43 General: Appears in no apparent distress. Behavior is calm, cooperative, appropriate ss7 for age. Pain: Complains of pain in face and right jaw. Neuro: No deficits noted. Cardiovascular: No deficits noted. Respiratory: No deficits noted. GI: No deficits noted. : No deficits noted. EENT: right facial/jaw swelling. Derm: No deficits noted. Vital Signs: 15:32 BP 128 / 90; Pulse 102; Resp 18; Temp 98.8(TE); Pulse Ox 99% on R/A; Weight 81.65 kg; ab2 Height 5 ft. 2 in. (157.48 cm); Pain 10/10; 18:10 BP 119 / 78; Pulse 93; Resp 20; Pulse Ox 98% on R/A; ss7 15:32 Body Mass Index 32.92 (81.65 kg, 157.48 cm) ab2 ED Course: 15:28 Patient arrived in ED. as 15:34 Triage completed. ab2 15:35 Arm band placed on right wrist. ab2 16:36 Audrey Soto, RN is Primary Nurse. ss7 16:43 Patient has correct armband on for positive identification. Warm blanket given. ss7 16:43 No provider procedures requiring assistance completed. Patient did not have IV access ss7 during this emergency room visit. 16:55 Edu Rucker MD is Attending Physician. rn Administered Medications: No medications were administered Outcome: 17:55 Discharge ordered by . rn 18:09 Discharged to home ambulatory. ss7 18:09 Condition: good 18:09 Discharge instructions given to patient, Instructed on discharge instructions, follow up and referral plans. Demonstrated understanding of instructions, follow-up care, medications, Prescriptions given X 1. 18:11 Patient left the ED. ss7 Signatures: Dayan Mack Roman, MD MD rn Bleininger, Alexis ab2 Audrey Soto RN RN ss7
[2021-04-29 18:39] VITALS: TEMP 98.8
[2021-04-29 18:40] VITALS: BP 119/78; O2SAT 98
== END 2021-04-29 18:11 | disposition home or self-care (01) ==
LOC: ER 15:25
PROC: 0W930ZZ Drainage of Oral Cavity and Throat, Open Approach (ICD-10-PCS; principal; 2021-04-29)
DX: K12.2 Cellulitis and abscess of mouth (principal)
CPT/HCPCS: 99282

== ENCOUNTER 2021-05-02 05:54 | Emergency (ER) | payer OTHER ==
--- OUTSIDE RECORDS SUMMARY | 2021-05-02 05:57 | XMS REPORT | Continuity of Care Document ---
:1985 Author Organization [facility] t Address [address] [place] [address] Care Team Providers Name Role Phone Mariah FLORES Primary Care Physician Unavailable PHUONG Attending Clinician Unavailable Phuong MOTORBOAT MECHANIC INBOARD Attending Clinician Vipul [employer]ORBOAT MECHANIC INBOARD Attending Clinician Zafar [employer]ORBOAT MECHANIC INBOARD, R Attending Clinician Doctor Unassigned, Name Attending Clinician Unavailable 1, Mfm Usg Room Attending Clinician Unavailable Tino HERRERA Attending Clinician Unavailable Payers Payer Name Policy Type Policy Number Effective Date Expiration Date S ource Advance Directives Directive Decision Effective Termination Comments Source Date Date Healthcare Agents on N/A [facility] FileNameRelationC[facility] Clinic [facility] Hospit[facility] Agent Medical RelationshipCommunicationLinda Branch ParralesSiblingHealth Care [phone] (Mobile) Problems Condition Condition Condition Status Onset Resolution Last Treating Co mments Source Name Details Category Date Date Treatment Clinician Date Normal Normal Disease Active 2020-02 Univers labor labor 0-19 ity of 00:00: [place] [facility] Branch Disease Active 2020-02 Univers (normal (normal 0-19 [place] of [place] 00 [facility] delivery) delivery) Bran ch History of History of Disease Active U nivers anxiety anxiety 2-23 ity of 00:: [place] [facility] BMI BMI Disease Active Univers 32.0-32.9, 32.0-32.9, 2-23 it y of adult adult 00:00: [place] [facility] Branch Former Former Disease Active Univers smoker smoker 2-23 ity of 00:: [place] [facility] History of History of Disease Active U nivers 2-23 ity of delivery delivery 00:00: [address] History of History of Disease Active U nivers 2-23 ity of premature premature 00:[place] rupture of rupture of 00 Me dical membranes membranes Bran ch (PROM) in (PROM) in previous previous , , currently currently in first in first trimester trimester Chest Chest Disease Active Univers pain, pain, 8-12 ity of atypical atypical 00:00: [place] [facility] 39 weeks 39 weeks Disease Active Unive rs gestation gestation 3-12 ity of of of 00:00: [place] 00 [facility] Branch Supervisio Supervisio Disease Active 2017- U nivers n of high n of high 1-03 ity of risk risk 00:00: [place] 00 [facility] in first in first Branch trimester trimester Multiparit Multiparit Disease Active 2017-0 U nivers y y 8-22 ity of 00:00: [place] [facility] Obesity in Obesity in Disease Active 2017-0 U nivers 8-22 ity of 00:00: [address] Branch Papanicola Papanicola Disease Active 2015-0 U [...] Date Clinician No Known DA Active U 2019-0 [facility] Allergie 7-15 Clear s 00:00: [place] 00 [facility] No Known DA Active U 2012- [facility] Allergie 0-06 Clear s 00:00: [place] 00 [facility] NO KNOWN Drug Active Univers ALLERGIE Class ity of S [facility] Social History Social Habit Start Date Stop Date Quantity Comments Source Exposure to Not sure [facility] SARS-CoV-2 (event) [facility] Alcohol intake 2021-04-30 2021-04-30 Ex-drinker [facility] 00:00:00 00:00:00 (finding) [facility] Education 2020-11-25 2020-11-25 13 University 00:00:00 00:00:00 [facility] Tobacco Comment 2020-04-01 2020-04-01 smokes 4 x Universit y of 00:00:00 00:00:00 socially - [facility] stopped smoking Branch 2 weeks ago Alcohol Comment 2020-04-01 2020-04-01 socially Universit y of 00:00:00 00:00:00 [facility] Branch History SDOH 2020-04-01 2020-04-01 99 University o f Alcohol Frequency 00:00:00 [facility]:00:00 [facility] SDOH 2020-04-01 2020-04-01 99 University o f Alcohol Std Drinks 00:00:00 00:00:00 [facility] Branch History SDOH 2020-04-01 2020-04-01 99 University o f Alcohol Binge 00:00:00 00:00:00 [facility] Branch Cigarettes smoked 2016-09-28 2016-09-28 Univers ity of current (pack per 00:00:00 00:00:00 [facility] edical ) - Reported Branch Cigarette 2016-09-28 2016-09-28 University of pack-years 00:00:00 00:00:00 [facility] Tobacco use and 2016-09-28 2016-09-28 Never used Universit y of exposure 00:00:00 00:00:00 [facility] History of tobacco 2016-08-28 Cigarette Smoker University of use 00:00:00 [facility] Sex [birth year] Universit y of 00:00:00 00:00:00 [facility] Smoking Status Start Date Stop Date Source Former smoker 2016-09-28 00:00:00 2016-09-28 00:00:00 [facility] Medications Ordered Filled Start Stop Current Ordering Indication Dosage Frequency Signature Comments Components Source Medication Medication Date Date Medication? Clinician (SIG) Name Name KeithN Yes [id number] Take by Univers ISolone 3-23 mouth ity of (MEDROL, 00:00: SEE-INSTRU [place] as MARICHUY,) 4 mg 00 CTIONS. Medica l tablets follow Branch package directions chlorhexidi Yes [id number] 15mL Swish and Univers ne 0.12 % 04-29 spit out ity of mouthwash 00:00: 15 mL 2 [place] 00 (two) Medical times Branch daily. clindamycin 2021- Yes [id number] 300mg Take 2 Univers 150 mg 3-23 -31 capsules ity of capsule 00:00: 04:59 by mouth 4 [place] as 00 :00 (four) Medical times Branch daily for 7 days. amoxicillin Yes [id number] 500mg Take 1 Univers 500 mg 2-18 capsule by ity of capsule 00:00: mouth 3 [place] 00 (three) Medical times Branch daily. ibuprofen Yes [id number] 800mg Take 1 U nivers 800 mg 2-18 tablet by ity of tablet 00:00: mouth [place] 00 every 8 Medical (eight) Branch hours as needed for Pain (scale 4-6) or Temp > 38.5 C. traMADoL Yes [id number] 50mg Take 1 Univers (ULTRAM) 50 2-18 tablet by ity of mg tablet 00:00: mouth [place] 00 every 6 Medical (six) Branch hours as needed for Pain (scale 7-10). Indication s: acute pain docusate 2020-02 Yes [id number] 240mg Take 1 Un rand calcium 240 0-21 capsule by it y of mg capsule 00:00: mouth once [place] 00 daily as Medical needed for Branch Constipati on. ferrous 2020-02 Yes [id number] 325mg Take 1 Uni vers sulfate 325 0-21 tablet by ity of mg (65 mg 00:00: mouth 2 [place] iron) 00 (two) Medical tablet times Branch daily. Yes 1{packe Take 1 Univ ers vit 7-21 t} Packet by ity of 33-iron-fol 00:00: mouth [place] ic-dha 00 daily. Medical (SELECT-OB Branch + DHA) 29 mg iron-1 mg -250 mg combo pack Immunizations Ordered Filled Immunization Date Status Comments Sourc e Immunization Name Name TDAP 2020-09-15 Completed University 00:00:00 [facility] TDAP 2017-02-09 Completed University 00:00:00 [facility] TDAP 2007-02-07 Completed [facility] 00:00:00 [facility] Vital Signs Vital Name Observation Time Observation Value Comments Source Systolic blood 2021-04-30 21:56:00 116 mm[Hg] Univer sity of pressure [facility] Diastolic blood 2021-04-30 21:56:00 76 mm[Hg] [facility] 2021-04-30 21:56:00 87 /min [facility] Body temperature 2021-04-30 21:56:00 36.72 [facility] Body height 2021-04-30 21:56:00 157.5 cm [facility] Body weight 2021-04-30 21:56:00 79.243 kg [facility] BMI 2021-04-30 21:56:00 31.95 kg/m2 [facility] Oxygen saturation in 2021-04-30 21:56:00 97 /min [facility] Arterial blood by [facility] Pulse oximetry Branch Procedures This patient has no known procedures. Encounters Start End Encounter Admission Attending Care Care Encounter Source Date/Time Date/Time Type Type Clinicians Facility Department ID 2019-08-22 Inpatient HCACL MALACHI [id number] [facility] 08:59:00 [id number] [facility] 2021-05-06 2021-05-06 Outpatient R PHUONG DCCHARLINE [facility] [id number] Univers 15:30:00 15:30:00 [facility] [id number] [facility] 2021-04-30 2021-04-30 Office MADAN Baca [id number] Univers 16:30:00 17:15:50 Visit Marlyn ROLAND [id number] it Jessa [id number] Jaison as EMILIANO?BLEA [phone] Sc dical KNEY 044 Branch MEDICAL OFFICE BUILDING 2020-08-28 2020-08-28 Hospital [facility] [id number] 15:21:38 23:59:00 Encounter [place] [id number] [place] [id number] [place] [id number] 2020-08-28 2020-08-28 Urgent [facility] [id number] 14:13:24 15:23:42 Care [facility] [id number] [place] 4.2.7.2.686 Professio [id number] [facility] 044 Office Building One 2020-08-27 2020-08-27 Routine [facility] [id number] 10:01:23 11:16:37 Roshunda R INTERACTIVE MEDIA PROJECT MANAGER [id number] Visit [facility] 4.2.7.2.686 MATERNAL [id number] & CHILD [address] [place] [address] 2020-08-27 2020-08-27 Orders Doctor KEARA [id number] 00:00:00 00:00:00 Only Unassigned, CASI [id number] [place]nie [place]e [facility] 4.2.7.2.686 [id number] 2020-08-19 2020-08-19 [employer] Supervisor 1[facility] [id number] 14:50:51 15:35:51 [facility] [id number] CLINICS 4.2.7.2.686 [id number] 2020-08-06 2020-08-06 Nurse KEARA Jiménez [id number] 00:00:00 00:00:00 Triage Mike LANCE [id number] [facility] 4.2.7.2.686 [id number] Results Test Description Test Time Test Comments Results Result Comments Source SARS-CoV-2 (COVID-19), RT-PCR/TMA 2021-02-25 15:19:39 Test Item Value Reference Range Interpretation Comme nts SARS-CoV-2 INTERPRETATION NEGATIVE SEE NOTE S ARS-CoV-2 RNA NOT (test code = 85300) DETECTED Negative results do not preclude SARS-C [...] is h igh. SOURCE (test code = 76704) NASOPHARYNGEAL Note: Methodology is Dannie Stefani Real-Time RT-PCR. The expected r esult or reference range is NEGATIVE (Not Detected). For more information regarding COVID -19 testing to include clinica linformation, methodology det ail, intended use, FDA author ization andrecommended fact sheets for patients or [facility] providers, see [employer] Announcement: S ARS-CoV-2 (COVID-19) by N AAT at URL below (note,fact shee ts are provided by method given in report:https:// www.[employer]/c linicians/krystal t-communications/ Alternatively, see downloadable PDF fact sheet at:https://www. [employer]/COVID -19-RT-PCR UNLESS OTHERWISE INDIC ATED, ALL TESTING PERFORMED [facility], I PR. [address] [place] [address], [place] [address] LABORATORY DIRE CTOR: OCTAVIANO GUZMAN M.D. CLIA NUMBER [id number] [place]. [id number] COMPREHENSIVE METABOLIC [id number] 10:12:00 Test Item Value Reference Range Interpretation [...] 20-125 N TOTAL (test code = ALKP) [id number] 10:12:00 Test Item Value Reference Range Interpretation [...] may jett y by method. COMPREHENSIVE METABOLIC [id number] 10:11:00 Test Item Value Reference Range Interpretation [...] TOTAL (test IUnit/L 20-125 code = ALKP) [id number] 10:11:00 Test Item Value Reference Range Interpretation [...] results may jett y by method. PROTHROMBIN [id number] 09:59:00 Test Item Value Reference Range Interpretation [...] Infarction (t o prevent recurre nt infarct). [id number] 09:59:00 Test Item Value Reference Range Interpretation [...] TESTS AND APPROPRIATECLIN ICAL EUALUATIONS. CBC W/AUTO [id number] 09:56:00 Test Item Value Reference Range Interpretation [...] code = MDIFF) - XR CHEST 1 [id number] 09:56:00 FAX: Dallas Cain MD [phone] [place]: St: PRE Name: RAGHAVENDRA QUINN [facility] : 1985 Age/S: 34/F [address] [place] [address] Unit#: [id number] Loc: [place] [address] Phys: Dallas Cain MD Acct: [id number] Dis Date: Status: PRE ER PHONE #: [phone] Exam Date: 08/22/2019 1003 FAX #: [phone] Reason: Chest Pain EXAMS: CPT CODE: [id number] XR CHEST 1 V 43095 PROCEDURE: CHEST SINGLE VIEW INDICATION: Chest Pain COMPARISON: There are no previous relevant studies available for correlation. FINDINGS: The lungs are clear. No pleural abnormality. The cardiomediastinalsilhouette is normal for projection. The bony thorax is intact. IMPRESSION: Normal radiograph. SL: [id number] at 0956 Reported and signed by: Samson Sousa M.D. CC: Dallas Cain MD Technologist: RT Maddi(R) Trnscrd Kory e/Time/By: 08/22/2019 (7718) : By: ZaraL Orig Print D/T: S: 08/22/2019 (5532) PAGE 1 Signed Report
--- NOTE | 2021-05-02 07:57 | ER ---
Nurse's Notes [facility] Name: Goyo Solorio Age: 36 yrs Sex: Female : 1985 Arrival Date: 05/02/2021 Time: 05:55 Bed 13 Private MD: Diagnosis: Unspecified adverse effect of drug or medicament-side effect Presentation: 05/02 06:14 Chief complaint: Patient states: Allergic reaction to chlorahexadine. Coronavirus geoff screen: Vaccine status: Patient reports being unvaccinated. Ebola Screen: Patient negative for fever greater than or equal to 101.5 degrees Fahrenheit, and additional compatible Ebola Virus Disease symptoms Patient denies exposure to infectious person. Patient denies travel to an Ebola-affected area in the 21 days before illness onset. Onset: The symptoms/episode began/occurred suddenly, 45 minute(s) ago. Anaphylaxis evaluation, no signs or symptoms of anaphylaxis were noted. Initial Sepsis Screen: Does the patient meet any 2 criteria? No. Patient's initial sepsis screen is negative. Does the patient have a suspected source of infection? No. Patient's initial sepsis screen is negative. Risk Assessment: Do you want to hurt yourself or someone else? Patient reports no desire to harm self or others. Onset of symptoms was May 02, 2021 at 05:30. 06:14 Method Of Arrival: Ambulatory geoff 06:14 Acuity: EUGENIO 4 geoff Triage Assessment: 06:17 General: Appears in no apparent distress. Behavior is anxious. Pain: Denies pain. geoff Historical: - PMHx: 07:00 Anxiety; panic attack; bp - PSHx: 07:00 Appendectomy; IUD removal; bp - Immunization history:: Adult Immunizations up to date. - Social history:: Smoking status: Patient denies any tobacco usage or history of. Screenin:19 Abuse screen: Denies threats or abuse. Denies injuries from another. Nutritional geoff screening: No deficits noted. Tuberculosis screening: No symptoms or risk factors identified. Fall Risk None identified. Assessment: 06:19 General: Appears in no apparent distress. Behavior is anxious. Pain: Denies pain. geoff Cardiovascular: No deficits noted. Respiratory: No deficits noted. 06:21 Reassessment: The pt was brought to room 13 for triage, as she believed that she was geoff having an allergic reaction to a mouthwash of chlorahexadine, prescribed for her dental abscess that she was seen for here, 3 days ago. She was anxious, but easily reassured and comforted. She requested to "stay here where you can make sure" and the MD and I told her that was fine. She is resting comfortably. No s/sx of any allergic reaction. Awaiting dispo. 06:26 Respiratory: Airway is patent. geoff 06:26 Respiratory: Breath sounds are clear. geoff 07:00 Reassessment: RECD REPORT FROM FRANCISCO HERRERA. 36YO HF P/W ALLEGED ALLERGIC REACTION TO bp MOUTH RINSE. Respiratory: Airway is patent Respiratory effort is even, unlabored. 08:05 Reassessment: PT D/C HOME AMBULATORY, DX WITH ADVERSE REACTION. bp Vital Signs: 06:14 BP 108 / 76; Pulse 78; Resp 18; Temp 98.6; Pulse Ox 100% on R/A; Pain 0/10; geoff 06:19 BP 108 / 76; Pulse 78; Resp 18; Temp 98.6; Pulse Ox 100% on R/A; Pain 0/10; geoff 07:00 BP 100 / 73; Pulse 72; Resp 16; Pulse Ox 100% ; bp ED Course: 05:55 Patient arrived in ED. kc5 06:01 Luis Carlos Paniagua NP is PHCP. pm1 06:01 Akshat Dillard DO is Attending Physician. pm1 06:14 Deja Rodríguez, JAVIER is Primary Nurse. geoff 06:17 Triage completed. geoff 06:18 Arm band placed on. geoff 06:19 Patient has correct armband on for positive identification. Bed in low position. Call geoff light in reach. Noise minimized. Lights dimmed. Verbal reassurance given. 06:21 No provider procedures requiring assistance completed. geoff 08:08 Patient did not have IV access during this emergency room visit. bp Administered Medications: No medications were administered Outcome: 07:57 Discharge ordered by MD. pm1 08:08 Discharged to home ambulatory. bp 08:08 Condition: stable 08:08 Discharge instructions given to patient, Instructed on discharge instructions, follow up and referral plans. Demonstrated understanding of instructions, follow-up care. 08:08 Patient left the ED. bp Signatures: Luis Carlos Paniagua NP PPAP COORDINATOR pm1 Blake Moran RN RN Pooja Benavides kc5 Deja Rodríguez, RN RN geoff
--- NOTE | 2021-05-02 07:57 | EDPHYS ---
Physician Documentation [facility] Name: Goyo Solorio Age: 36 yrs Sex: Female : 1985 Arrival Date: 05/02/2021 Time: 05:55 Bed 13 Private MD: ED Physician Akshat Dillard HPI: 05/02 06:08 This 36 yrs old Female presents to ER via Ambulatory with complaints of pm1 Allergic Reaction. 06:08 The patient presents with Numbness to tongue. Onset: The symptoms/episode pm1 began/occurred just prior to arrival. Associated signs and symptoms: The patient has no apparent associated signs or symptoms. Possible causes: Chlorhexidine mouthwash. At home the patient or guardian has treated the symptoms with nothing. Severity of symptoms: in the emergency department the symptoms are unchanged. The patient has not experienced similar symptoms in the past. Patient seen by dentist right upper molar dental abscess. Patient currently taking antibiotics Augmentin and clindamycin. Patient is taking Augmentin and clindamycin for dental abscess. She saw her dentist and had her abscess drained and they attempted to pull out her infected teeth. However they decided to wait for her to continue taking the rest of her antibiotics. Discharged home chlorhexidine mouthwash. Patient is chlorhexidine this morning for the first time and reported numbness to her tongue with the mouthwash. She presented to ER with concerns that this is an allergic reaction. She did not take any medications prior to arrival. Historical: - PMHx: 07:00 Anxiety; panic attack; bp - PSHx: 07:00 Appendectomy; IUD removal; bp - Immunization history:: Adult Immunizations up to date. - Social history:: Smoking status: Patient denies any tobacco usage or history of. ROS: 06:08 Constitutional: Negative for fever, chills, and weight loss. pm1 06:08 Cardiovascular: Negative for chest pain, palpitations, and edema, Respiratory: Negative for shortness of breath, cough, wheezing, and pleuritic chest pain, Abdomen/GI: Negative for abdominal pain, nausea, vomiting, diarrhea, and constipation, MS/Extremity: Negative for injury and deformity, Skin: Negative for injury, rash, and discoloration, Neuro: Negative for headache, weakness, tingling, and seizure. 06:08 ENT: Positive for tongue numbness. Mild right sided facial swelling that has improved since starting clindamycin, Negative for sore throat, dental pain, difficulty swallowing, difficulty handling secretions, hoarseness. 06:08 All other systems are negative. Exam: 06:08 Constitutional: This is a well developed, well nourished patient who is awake, alert, pm1 and in no acute distress. Head/Face: Normocephalic, atraumatic. 06:08 Eyes: Pupils equal round and reactive to light, extra-ocular motions intact. Lids and lashes normal. Conjunctiva and sclera are non-icteric and not injected. Cornea within normal limits. Periorbital areas with no swelling, redness, or edema. 06:08 Back: No spinal tenderness. No costovertebral tenderness. Full range of motion. Skin: Warm, dry with normal turgor. Normal color with no rashes, no lesions, and no evidence of cellulitis. MS/ Extremity: Pulses equal, no cyanosis. Neurovascular intact. Full, normal range of motion. 06:08 ENT: Mouth: Lips: normal, moist, Oral mucosa: normal, pink and intact, moist, Tongue: is normal, negative for swelling present, abscess, is not appreciated, drooling, is not appreciated, Dental exam: abscess, is not appreciated, dental caries, that is mild, specifically in the upper right first molar (#3), gum swelling, not appreciated, Voice: is normal. 06:08 Neck: Exam negative for acute changes, ROM/movement: is normal, is supple. 06:08 Cardiovascular: Exam negative for acute changes, Rate: normal, Rhythm: regular, Pulses: no pulse deficits are appreciated. 06:08 Respiratory: Exam negative for acute changes, respiratory distress, shortness of breath. 06:08 Neuro: Exam negative for acute changes, Orientation: is normal, Mentation: is normal, Motor: is normal, moves all fours. Vital Signs: 06:14 BP 108 / 76; Pulse 78; Resp 18; Temp 98.6; Pulse Ox 100% on R/A; Pain 0/10; geoff 06:19 BP 108 / 76; Pulse 78; Resp 18; Temp 98.6; Pulse Ox 100% on R/A; Pain 0/10; geoff 07:00 BP 100 / 73; Pulse 72; Resp 16; Pulse Ox 100% ; bp MDM: 06:08 Patient medically screened. pm1 06:13 ED course: No apparent allergic reaction present. Patient thought that she had some pm1 bumps on her tongue as a result of the mouth wash, which appear to be normal papillae. Patient would like to stay in the ER for observation because she is worried about the possible reaction. 06:19 Data reviewed: vital signs. Data interpreted: Pulse oximetry: on room air is 100 %. pm1 Interpretation: normal. 07:55 Counseling: I had a detailed discussion with the patient and/or guardian regarding: the pm1 historical points, exam findings, and any diagnostic results supporting the discharge/admit diagnosis, the need for outpatient follow up, to return to the emergency department if symptoms worsen or persist or if there are any questions or concerns that arise at home. 07:57 ED course: Patient does not feel the numbness present to her tongue and feels ready to pm1 go home. Patient reports that she does not want to use the chlorhexidine further. Administered Medications: No medications were administered Disposition Summary: 05/02/21 07:57 Discharge Ordered Location: Home pm1 Problem: new pm1 Symptoms: have improved pm1 Condition: Stable pm1 Diagnosis - Unspecified adverse effect of drug or medicament - side effect pm1 Followup: pm1 - With: Emergency Department - When: As needed - Reason: Worsening of condition Followup: pm1 - With: Private Physician - When: 2 - 3 days - Reason: Recheck today's complaints, Continuance of care, Re-evaluation by your physician Forms: - Medication Reconciliation Form pm1 - Thank You Letter pm1 - Antibiotic Education pm1 - Prescription Opioid Use pm1 Addendum: 05/05/2021 21:59 Co-signature as Attending Physician, Akshat Dillard DO I was immediately available on-site m s3 in the Emergency Department for consultation in the care of the patient.. Signatures: Luis Carlos Paniagua, [place] [employer] pm1 Blake Moran RN RN Akshat Wu DO DO ms3
[2021-05-02 08:13] VITALS: TEMP 98.6; O2SAT 100
[2021-05-02 08:16] VITALS: BP 100/73
== END 2021-05-02 08:08 | disposition home or self-care (01) ==
LOC: ER 05:54
DX: R20.0 Anesthesia of skin (principal); T49.0X5A Adverse effect of local antifungal, anti-infective and anti-inflammatory drugs, initial encounter
CPT/HCPCS: 99281

== ENCOUNTER 2021-05-04 04:35 | Emergency (ER) | payer OTHER ==
--- OUTSIDE RECORDS SUMMARY | 2021-05-04 04:38 | XMS REPORT | Continuity of Care Document ---
:1985 Author Organization [facility] t Address [address] [place] [address] Care Team Providers Name Role Phone Mariah FLORES Primary Care Physician Unavailable PHUONG Attending Clinician Unavailable Phuong PATIENT SERVICES CLERK Attending Clinician Vipul PATIENT SERVICES CLERK Attending Clinician Zafar PATIENT SERVICES CLERK, R Attending Clinician Doctor Unassigned, Name Attending Clinician Unavailable 1, M[facility] Usg Room Attending Clinician Unavailable Tino HERRERA Attending Clinician Unavailable Payers Payer Name Policy Type Policy Number Effective Date Expiration Date S ource Advance Directives Directive Decision Effective Termination Comments Source Date Date Healthcare Agents on N/A [facility] FileNameRelationAv[facility] Agent Medical RelationshipCommunicationLinda Branch ParralesSiblingHealth Care [phone] (Mobile) Problems Condition Condition Condition Status Onset Resolution Last Treating Co mments Source Name Details Category Date Date Treatment Clinician Date Normal Normal Disease Active 2020-02 Univers labor labor 0-19 ity of 00:00: [place] [facility] Branch Disease Active 2020-02 Univers (normal (normal 0-19 it[place] of spontane[place] 00 [facility] delivery) delivery) Bran ch History of History of Disease Active U nivers anxiety anxiety 2-23 ity of 00:: [place] [facility] BMI BMI Disease Active Univers 32.0-32.9, 32.0-32.9, 2-23 it y of adult adult 00:00: [place] [facility] Branch Former Former Disease Active Univers smoker smoker 2-23 ity of 00:: [place] [facility] History of History of Disease Active U nivers 2-23 ity of delivery delivery 00:00: [address] History of History of Disease Active U nivers 2-23 ity of premature premature 00:[place] rupture of rupture of 00 Me dical membranes membranes Bran ch (PROM) in (PROM) in previous previous , , currently currently in first in first trimester trimester Chest Chest Disease Active Univers pain, pain, 8-12 ity of atypical atypical 00:00: [place] [facility] 39 weeks 39 weeks Disease Active Unive rs gestation gestation 3-12 ity of of of 00:00: [place] 00 [facility] Branch Supervisio Supervisio Disease Active 2017- U nivers n of high n of high 1-03 ity of risk risk 00:00: [place] 00 [facility] in first in first Branch trimester trimester Multiparit Multiparit Disease Active 2017-0 U nivers y y 8-22 ity of 00:00: [place] [facility] Obesity in Obesity in Disease Active 2017-0 U nivers 8-22 ity of 00:00: [address] Branch Papanicola Papanicola Disease Active 2015-0 [...] Allergie 7-15 Clear s 00:00: [place] 00 [facility] No Known DA Active U 2012- [facility] Allergie 0-06 Clear s 00:00: [place] 00 [facility] NO KNOWN Drug Active Univers ALLERGIE Class ity of S [facility] Social History Social Habit Start Date Stop Date Quantity Comments Source Exposure to Not sure [facility] SARS-CoV-2 (event) [facility] Alcohol intake 2021-04-30 2021-04-30 Ex-drinker [facility] 00:00:00 00:00:00 (finding) [facility] Education 2020-11-25 2020-11-25 13 University 00:00:00 00:00:00 [facility] Tobacco Comment 2020-04-01 2020-04-01 smokes 4 x Universit y of 00:00:00 00:00:00 socially - [facility] stopped smoking Branch 2 weeks ago Alcohol Comment 2020-04-01 2020-04-01 socially Universit y of 00:00:00 00:00:00 [facility] Branch History SDOH 2020-04-01 2020-04-01 99 University o f Alcohol Frequency 00:00:00 [facility] 2020-04-01 2020-04-01 99 University o f Alcohol Std Drinks 00:00:00 00:00:00 [facility] Branch History SDOH 2020-04-01 2020-04-01 99 University o f Alcohol Binge 00:00:00 00:00:00 [facility] al Branch Cigarettes smoked 2016-09-28 2016-09-28 Univers ity of current (pack per 00:00:00 00:00:00 [facility] edical ) - Reported Branch Cigarette 2016-09-28 2016-09-28 University of pack-years 00:00:00 00:00:00 [facility] Tobacco use and 2016-09-28 2016-09-28 Never used Universit y of exposure 00:00:00 00:00:00 [facility] History of tobacco 2016-08-28 Cigarette Smoker University of use 00:00:00 [facility] Sex Ass[birth year] At [birth year] Universit y of 00:00:00 00:00:00 [facility] Smoking Status Start Date Stop Date Source Former smoker 2016-09-28 00:00:00 2016-09-28 [facility] Medications Ordered Filled Start Stop Current Ordering Indication Dosage Frequency Signature Comments Components Source Medication Medication Date Date Medication? Clinician (SIG) Name Name KeithN Yes [id number] Take by Univers ISolone 3-23 mouth ity of (MEDROL, 00:00: SEE-INSTRU [place] as MARICHUY,) 4 mg 00 CTIONS. Medica l tablets follow Branch package directions chlorhexidi Yes [id number] 15mL Swish and Univers ne 0.12 % 04-29 spit out ity of mouthwash 00:00: 15 mL 2 [place] 00 (two) Medical times Branch daily. clindamycin 2021- Yes [id number] 300mg Take 2 Univers 150 mg 3-23 -31 capsules ity of capsule 00:00: 04:59 by mouth 4 [place] as 00 :00 (four) Medical times Branch daily for 7 days. amoxicillin Yes [id number] 500mg Take 1 Univers 500 mg 2-18 capsule by ity of capsule 00:00: mouth 3 [place] 00 (three) Medical times Branch daily. ibuprofen Yes [id number] 800mg Take 1 U nivers 800 mg 2-18 tablet by ity of tablet 00:00: mouth [place] 00 every 8 Medical (eight) Branch hours as needed for Pain (scale 4-6) or Temp > 38.5 C. traMADoL Yes [id number] 50mg Take 1 Univers (ULTRAM) 50 2-18 tablet by ity of mg tablet 00:00: mouth [place] 00 every 6 Medical (six) Branch hours as needed for Pain (scale 7-10). Indication s: acute pain docusate 2020-02 Yes [id number] 240mg Take 1 Un rand calcium 240 0-21 capsule by it y of mg capsule 00:00: mouth once [place] 00 daily as Medical needed for Branch Constipati on. ferrous 2020-02 Yes [id number] 325mg Take 1 Uni vers sulfate 325 [...] Name Name TDAP 2020-09-15 Completed University 00:00:00 [facility] TDAP 2017-02-09 Completed University 00:00:00 [facility] TDAP 2007-02-07 Completed [facility] 00:00:00 [facility] Vital Signs Vital Name Observation Time Observation Value Comments Source Systolic blood 2021-04-30 21:56:00 116 mm[Hg] Univer sity of pressure [facility] Diastolic blood 2021-04-30 21:56:00 76 mm[Hg] [facility] 2021-04-30 21:56:00 87 /min [facility] Body temperature 2021-04-30 21:56:00 36.72 Brigitte [facility] Body height 2021-04-30 21:56:00 157.5 cm [facility] Body weight 2021-04-30 21:56:00 79.243 kg [facility] BMI 2021-04-30 21:56:00 31.95 kg/m2 [facility] Oxygen saturation in 2021-04-30 21:56:00 97 /min [facility] Arterial blood by [facility] Pulse oximetry Branch Procedures This patient has no known procedures. Encounters Start End Encounter Admission Attending Care Care Encounter Source Date/Time Date/Time Type Type Clinicians Facility Department ID 2019-08-22 Inpatient HCACL MALACHI [id number] [facility] 08:59:00 [id number] [facility] 2021-05-06 2021-05-06 Outpatient R PHUONG FL[address] [facility] [id number] Univers 15:30:00 15:30:00 [facility] [id number] [facility] 2021-04-30 2021-04-30 Office MADAN Baca [id number] Univers 16:30:00 17:15:50 Visit Marlyn ROLAND [id number] it Jessa [id number] Ja[place] as EMILIANO?BLEA [id number] Tn dical KNEY 044 Branch MEDICAL OFFICE BUILDING 2020-08-28 2020-08-28 Hospital [facility] [id number] 15:21:38 23:59:00 Encounter [place] [id number] [place] 4.2.7.2.686 [place] [id number] 2020-08-28 2020-08-28 Urgent [facility] [id number] 14:13:24 15:23:42 Care [facility] [id number] [place] 4.2.7.2.686 Professio [id number] [facility] 0[address] Office Building One 2020-08-27 2020-08-27 Routine [facility] [id number] 10:01:23 11:16:37 Roshunda R GRAPHICS PROGRAMMER [id number] Visit [facility] 4.2.7.2.686 MATERNAL [id number] & CHILD [address] [place] [address] 2020-08-27 2020-08-27 Orders Doctor KEARA [id number] 00:00:00 00:00:00 Only Unassigned, CASI [id number] [facility] 4.2.7.2.686 [id number] 2020-08-19 2020-08-19 [facility] Clin[facility] [id number] 14:50:51 15:35:51 [facility] [id number] CLINICS 4.2.7.2.686 [id number] 2020-08-06 2020-08-06 Nurse KEARA Jiménez [id number] 00:00:00 00:00:00 Triage [facility] [id number] [facility] 4.2.7.2.686 [id number] Results Test Description Test Time Test Comments Results Result Comments Source SARS-CoV-2 (COVID-19), RT-PCR/TMA 2021-02-25 15:19:39 Test Item Value Reference Range Interpretation Comme nts SARS-CoV-2 INTERPRETATION NEGATIVE SEE NOTE S ARS-CoV-2 RNA NOT (test code = 17884) DETECTED Negative results do not preclude SARS-C [...] is h igh. SOURCE (test code = 57277) NASOPHARYNGEAL Note: Methodology is Dannie Stefani Real-Time RT-PCR. The expected r esult or reference range is NEGATIVE (Not Detected). For more information regarding COVID -19 testing to include clinica linformation, methodology det ail, intended use, FDA author ization andrecommended fact sheets for patients or [facility] providers, see [employer] Announcement: S ARS-CoV-2 (COVID-19) by N AAT at URL below (note,fact shee ts are provided by method given in report:https:// www.[employer]ingu[employer]o/c linicians/krystal t-communications/ Alternatively, see downloadable PDF fact sheet at:https://www. [employer]/COVID -19-RT-PCR UNLESS OTHERWISE INDIC ATED, ALL TESTING PERFORMED [facility], I ID. [address] [place] [address], [place] [address] LABORATORY DIRE CTOR: OCTAVIANO GUZMAN M.D. CLIA NUMBER [id number] [place]. [id number] COMPREHENSIVE METABOLIC [id number] 10:12:00 Test Item Value Reference Range Interpretation [...] 20-125 N TOTAL (test code = ALKP) [id number] 10:12:00 Test Item Value Reference Range Interpretation [...] may jett y by method. COMPREHENSIVE METABOLIC [id number] 10:11:00 Test Item Value Reference Range Interpretation [...] TOTAL (test IUnit/L 20-125 code = ALKP) [id number] 10:11:00 Test Item Value Reference Range Interpretation [...] results may jett y by method. PROTHROMBIN [id number] 09:59:00 Test Item Value Reference Range Interpretation [...] Infarction (t o prevent recurre nt infarct). [id number] 09:59:00 Test Item Value Reference Range Interpretation [...] TESTS AND APPROPRIATECLIN ICAL EUALUATIONS. CBC W/AUTO [id number] 09:56:00 Test Item Value Reference Range Interpretation [...] code = MDIFF) - XR CHEST 1 [id number] 09:56:00 FAX: Dallas Cain MD [phone] [place]: St: PRE Name: RAGHAVENDRA QUINN [facility] : 1985 Age/S: 34/F [address] [place] [address] Unit#: [id number] Loc: [place] [address] Phys: Dallas Cain MD Acct: [id number] Dis Date: Status: PRE ER PHONE #: [phone] Exam Date: 08/22/2019 1003 FAX #: [phone] Reason: Chest Pain EXAMS: CPT CODE: [id number] XR CHEST 1 V 61975 PROCEDURE: CHEST SINGLE VIEW INDICATION: Chest Pain COMPARISON: There are no previous relevant studies available for correlation. FINDINGS: The lungs are clear. No pleural abnormality. The cardiomediastinalsilhouette is normal for projection. The bony thorax is intact. IMPRESSION: Normal radiograph. SL: [id number] at 0956 Reported and signed by: Samson Sousa M.D. CC: Dallas Cain MD Technologist: RT Maddi(R) Trnscrd Kory e/Time/By: 08/22/2019 (9812) : By: ZaraL Orig Print D/T: S: 08/22/2019 (9002) PAGE 1 Signed Report
[2021-05-04 05:36] LABS: Urine Blood Negative (Negative); Urine Glucose Negative (Negative); Urine Protein Negative (Negative); Urine Specific Gravity <=1.005 (1.005-1.030); Urine pH 5.5 (5.0-7.0)
[2021-05-04] MEDS ORDERED: FAMOTIDINE 20 MG/2 ML VIAL IV ONE (06:04)
[2021-05-04 06:13] LABS: Absolute Lymphocytes (CBC) 4.1 K/uL (0.7-4.9); Hematocrit 39.8 % (36.0-45.0); Lymphocytes % 33.4 % (15.3-44.8); MPV 6.9 fL (7.6-11.3); RBC Red Blood Cell Count 5.27 M/uL (3.86-4.86)
[2021-05-04 06:48] LABS: ALT/SGPT 27 U/L (12-78); AST/SGOT 11 U/L (15-37); Albumin 3.4 g/dL (3.4-5.0); Alkaline Phosphatase 67 U/L (45-117); BUN Blood Urea Nitrogen 12 mg/dL (7-18); Bicarbonate 25 mmol/L (21-32); Bilirubin Total 0.3 mg/dL (0.2-1.0); Glucose Level 108 mg/dL (74-106); Lipase 209 U/L (73-393); Magnesium 1.8 mg/dL (1.8-2.4); Phosphorus 3.1 mg/dL (2.5-4.9); Potassium 3.7 mmol/L (3.5-5.1); Protein, Total 7.7 g/dL (6.4-8.2); Sodium Level 139 mmol/L (136-145)
--- NOTE | 2021-05-04 07:52 | RAD REPORT ---
EXAM DESCRIPTION: CTAbdomen Pelvis W Contrast - 05/04/2021 7:45 am CLINICAL HISTORY: Diarrhea;Nausea / vomiting COMPARISON: Abdomen Pelvis W Contrast dated 12/25/2015; CT ABD PELVIS W CONTRAST dated 09/21/2013; CT ABD PELVIS W CONTRAST dated 07/20/2013 TECHNIQUE: CT of the abdomen and pelvis was performed. All CT scans are performed using dose optimization technique as appropriate and may include automated exposure control or mA/KV adjustment according to patient size. FINDINGS: Lower chest: No acute abnormality. Liver: No acute abnormality or suspicious lesions. Biliary: No biliary ductal dilatation. Stomach: No significant focal abnormality. Duodenum: No significant focal abnormality. Pancreas: No significant abnormality. Spleen: No significant abnormality. Adrenal: No suspicious lesions. Kidney/ureter: No hydronephrosis. No renal calculi. Retroperitoneum: No retroperitoneal adenopathy. Vascular: No aneurysm. Bowel: Scattered colonic diverticulum. No evidence of acute diverticulitis.. No appendix identified. No secondary signs of acute appendicitis. Peritoneum: No ascites or free air. Bladder: Grossly unremarkable. Reproductive: No adnexal masses. Bones: No acute fracture. Other: n/a IMPRESSION: No acute intra-abdominal or pelvic finding.
--- NOTE | 2021-05-04 08:40 | ER ---
Nurse's Notes [facility] Name: Goyo Solorio Age: 36 yrs Sex: Female : 1985 Arrival Date: 05/04/2021 Time: 04:38 Bed 16 Private MD: Diagnosis: Diarrhea, unspecified Presentation: 05/04 05:33 Chief complaint: Patient states: "My feet and hands got cold". Coronavirus screen: geoff Vaccine status: Patient reports receiving the 2nd dose of the covid vaccine. Ebola Screen: Patient negative for fever greater than or equal to 101.5 degrees Fahrenheit, and additional compatible Ebola Virus Disease symptoms Patient denies exposure to infectious person. Patient denies travel to an Ebola-affected area in the 21 days before illness onset. Initial Sepsis Screen: Does the patient meet any 2 criteria? No. Patient's initial sepsis screen is negative. Does the patient have a suspected source of infection? No. Patient's initial sepsis screen is negative. Risk Assessment: Do you want to hurt yourself or someone else? Patient reports no desire to harm self or others. Onset of symptoms was May 04, 2021. 05:33 Method Of Arrival: Ambulatory geoff 05:33 Acuity: EUGENIO 4 geoff Triage Assessment: 05:34 General: Appears distressed, Behavior is anxious. Pain: Denies pain. GI: No deficits geoff noted. 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 - Social history:: Smoking status: Patient denies any tobacco usage or history of. Patient/guardian denies using alcohol, street drugs, IV drugs. Screenin:38 Abuse screen: Denies threats or abuse. Denies injuries from another. Nutritional geoff screening: No deficits noted. Tuberculosis screening: No symptoms or risk factors identified. Fall Risk None identified. Assessment: 05:36 Reassessment: No changes from previously documented assessment. The pt is familiar to geoff this nurse, having had her as a pt, a few days ago. She appears more anxious, today, but is easily redirected. She reports that her friend told her that the infection may be spreading, her hands and feet became "really cold, all of the sudden", etc. 06:08 Reassessment: The pt refused the Pepcid, saying,"The last time I got a medication, like geoff that, it made my heart go really fast." I assured her that Pepcid would not, but she refused. 07:06 Reassessment: Patient appears in no apparent distress at this time. No changes from jl7 previously documented assessment. Patient and/or family updated on plan of care and expected duration. Pain level reassessed. Patient is alert, oriented x 3, equal unlabored respirations, skin warm/dry/pink. Vital Signs: 05:35 BP 124 / 84; Pulse 108; Resp 18; Pulse Ox 100% on R/A; Pain 0/10; geoff 06:48 BP 109 / 87; Pulse 82; Resp 18; Pulse Ox 100% on R/A; Pain 0/10; geoff 07:06 BP 118 / 61; Pulse 79; Resp 15; Pulse Ox 98% ; jl7 08:09 BP 110 / 80; Pulse 72; Resp 15; Temp 98.6; Pulse Ox 98% ; jl7 ED Course: 04:38 Patient arrived in ED. ja2 04:46 Chema Villegas MD is Attending Physician. 7 05:32 Deja Rodríguez, RN is Primary Nurse. geoff 05:34 Triage completed. geoff 05:38 Patient has correct armband on for positive identification. Bed in low position. Call geoff light in reach. Side rails up X 1. 05:39 No provider procedures requiring assistance completed. geoff 05:39 Inserted saline lock: 20 gauge in left antecubital area, using aseptic technique. Blood geoff collected. 05:56 Test, Serum Sent. geoff 05:56 Phosphorus Sent. geoff 05:56 Magnesium Sent. geoff 05:56 CBC with Diff Sent. geoff 05:57 CMP Sent. geoff 05:57 Lipase Sent. geoff 07:10 Luis Carlos Paniagua NP is PHCP. pm1 07:47 CT Abd/Pelvis - IV Contrast Only In Process Unspecified. EDMS 08:08 Arm band placed on right wrist. jl7 08:29 Primary Nurse role handed off by Deja Rodríguez, RN bd 09:12 Cole Lima, RN is Primary Nurse. jl7 09:14 IV discontinued, intact, bleeding controlled, No redness/swelling at site. Pressure jl7 dressing applied. Administered Medications: 06:08 Drug: NS 0.9% 1000 ml Route: IV; Rate: 1 bolus; Site: left antecubital; geoff 07:30 Follow up: Response: No adverse reaction; IV Status: Completed infusion; IV Intake: jl7 1000ml 06:08 Not Given (Patient Refused): Pepcid (famotidine) 20 mg IVP once; dilute with 10 mL 0.9% geoff NaCl; give over 2 minutes Intake: 07:30 IV: 1000ml; Total: 1000ml. jl7 Outcome: 08:40 Discharge ordered by . pm1 09:14 Discharged to home ambulatory. jl7 09:14 Condition: stable 09:14 Discharge instructions given to patient, Instructed on discharge instructions, follow up and referral plans. Demonstrated understanding of instructions, follow-up care. 09:14 Patient left the ED. jl7 Signatures: Dispatcher [employer] EDMS Erin David Patrick, SOFTWARE PROGRAM MANAGER SOFTWARE PROGRAM MANAGER pm1 Cole Lima, RN RN jl7 Chema Villegas MD MD mh7 Alexander, Jessica ja2 O'Farrell, Brenda RN JAVIER tellez
--- NOTE | 2021-05-04 08:41 | EDPHYS ---
Physician Documentation [facility] Name: Goyo Sloorio Age: 36 yrs Sex: Female : 1985 Arrival Date: 05/04/2021 Time: 04:38 Bed 16 Private MD: BA Physician Chema Villegas HPI: 05/04 05:18 This 36 yrs old Female presents to ER via Unassigned with complaints of mh7 Dizziness, Diarrhea. 05:18 The patient presents to the emergency department with diarrhea, that is intermittent, 3 mh7 times today. Onset: The symptoms/episode began/occurred today. Possible causes: antibiotics, penicillin, amoxicillin. The symptoms are aggravated by nothing. The symptoms are alleviated by nothing. Associated signs and symptoms: Pertinent negatives: abdominal pain, anorexia, belching, constipation, dysuria, fever, flatulence, GI bleeding, hematuria, vaginal discharge, vomiting. Severity of symptoms: At their worst the symptoms were moderate today, in the emergency department the symptoms have improved moderately. 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 - Social history:: Smoking status: Patient denies any tobacco usage or history of. Patient/guardian denies using alcohol, street drugs, IV drugs. ROS: 05:18 Constitutional: Negative for fever, chills, and weight loss, Eyes: Negative for injury, mh7 pain, redness, and discharge, ENT: Negative for injury, pain, and discharge, Neck: Negative for injury, pain, and swelling, Cardiovascular: Negative for chest pain, palpitations, and edema, Respiratory: Negative for shortness of breath, cough, wheezing, and pleuritic chest pain, Back: Negative for injury and pain, : Negative for injury, bleeding, discharge, and swelling, MS/Extremity: Negative for injury and deformity, Skin: Negative for injury, rash, and discoloration, Neuro: Negative for headache, weakness, numbness, tingling, and seizure. 05:18 Allergy/Immunology: Negative for hives, rash, and allergies, Endocrine: Negative for neck swelling, polydipsia, polyuria, polyphagia, and marked weight changes, Hematologic/Lymphatic: Negative for swollen nodes, abnormal bleeding, and unusual bruising. 05:18 Psych: Positive for anxiety. Exam: 05:18 Head/Face: Normocephalic, atraumatic. Eyes: Pupils equal round and reactive to light, [facility] extra-ocular motions intact. Lids and lashes normal. Conjunctiva and sclera are non-icteric and not injected. Cornea within normal limits. Periorbital areas with no swelling, redness, or edema. Neck: Trachea midline, no thyromegaly or masses palpated, and no cervical lymphadenopathy. Supple, full range of motion without nuchal rigidity, or vertebral point tenderness. No Meningismus. Chest/axilla: Normal chest wall appearance and motion. Nontender with no deformity. No lesions are appreciated. Cardiovascular: Regular rate and rhythm with a normal S1 and S2. No gallops, murmurs, or rubs. Normal PMI, no JVD. No pulse deficits. Respiratory: Lungs have equal breath sounds bilaterally, clear to auscultation and percussion. No rales, rhonchi or wheezes noted. No increased work of breathing, no retractions or nasal flaring. Abdomen/GI: Soft, non-tender, with normal bowel sounds. No distension or tympany. No guarding or rebound. No evidence of tenderness throughout. Back: No spinal tenderness. No costovertebral tenderness. Full range of motion. Skin: Warm, dry with normal turgor. Normal color with no rashes, no lesions, and no evidence of cellulitis. MS/ Extremity: Pulses equal, no cyanosis. Neurovascular intact. Full, normal range of motion. Neuro: Awake and alert, GCS 15, oriented to person, place, time, and situation. Cranial nerves II-XII grossly intact. Motor strength 5/5 in all extremities. Sensory grossly intact. Cerebellar exam normal. Normal gait. Psych: Awake, alert, with orientation to person, place and time. Behavior, mood, and affect are within normal limits. 05:18 Constitutional: The patient appears in no acute distress, alert, awake, anxious. 05:35 ECG was reviewed by the Attending Physician. [facility] Vital Signs: 05:35 BP 124 / 84; Pulse 108; Resp 18; Pulse Ox 100% on R/A; Pain 0/10; geoff 06:48 BP 109 / 87; Pulse 82; Resp 18; Pulse Ox 100% on R/A; Pain 0/10; geoff 07:06 BP 118 / 61; Pulse 79; Resp 15; Pulse Ox 98% ; jl7 08:09 BP 110 / 80; Pulse 72; Resp 15; Temp 98.6; Pulse Ox 98% ; jl7 MDM: 07:56 Patient medically screened. pm1 08:38 Data reviewed: vital signs. Data interpreted: Pulse oximetry: on room air is 98 %. pm1 Interpretation: normal. Counseling: I had a detailed discussion with the patient and/or guardian regarding: the historical points, exam findings, and any diagnostic results supporting the discharge/admit diagnosis, lab results, radiology results, the need for outpatient follow up, to return to the emergency department if symptoms worsen or persist or if there are any questions or concerns that arise at home. 08:38 ED course: Patient with decreased swelling to face from yesterday. Discussed pm1 continuation of antibiotic therapy as prescribed and follow up with her dentist as planned. Discussed probiotics for help with decreasing the side effect of diarrhea with abx. Patient without diarrhea during ER visit. 05/04 05:17 Order name: CBC with Diff; Complete Time: 06:22 mh7 05/04 05:17 Order name: CMP; Complete Time: 06:50 mh7 05/04 05:17 Order name: Lipase; Complete Time: 06:50 mh7 05/04 05:17 Order name: Magnesium; Complete Time: 06:50 mh7 05/04 05:17 Order name: Phosphorus; Complete Time: 06:50 7 05/04 05:36 Order name: Test, Serum; Complete Time: 06:48 mw2 05/04 05:17 Order name: IV Saline Lock; Complete Time: 05:56 mh7 05/04 05:17 Order name: Labs collected and sent; Complete Time: 05:56 mh7 05/04 05:17 Order name: Urine Dipstick-Ancillary (obtain specimen); Complete Time: 05:35 mh7 05/04 05:36 Order name: Urine Dipstick-Ancillary; Complete Time: 06:22 EDMS 05/04 06:52 Order name: CT Abd/Pelvis - IV Contrast Only; Complete Time: 07:56 mh7 05/04 05:17 Order name: Urine Test (obtain specimen); Complete Time: 05:35 [facility] 05/04 05:18 Order name: EKG - Nurse/Tech; Complete Time: 05:30 7 EC:35 Rate is 90 beats/min. Rhythm is regular, Normal Sinus Rhythm with No ectopy. QRS [place] 7 is Normal. [place] interval is normal. QRS interval is normal. QT interval is normal. No Q waves. T waves are Normal. No ST changes noted. Clinical impression: Normal ECG. Administered Medications: 06:08 Drug: NS 0.9% 1000 ml Route: IV; Rate: 1 bolus; Site: left antecubital; geoff 07:30 Follow up: Response: No adverse reaction; IV Status: Completed infusion; IV Intake: jl7 1000ml 06:08 Not Given (Patient Refused): Pepcid (famotidine) 20 mg IVP once; dilute with 10 mL 0.9% geoff NaCl; give over 2 minutes Disposition Summary: 05/04/21 08:40 Discharge Ordered Location: Home pm1 Problem: new pm1 Symptoms: have improved pm1 Condition: Stable pm1 Diagnosis - Diarrhea, unspecified pm1 Followup: pm1 - With: Emergency Department - When: As needed - Reason: Worsening of condition Followup: pm1 - With: Private Physician - When: 2 - 3 days - Reason: Recheck today's complaints, Continuance of care, Re-evaluation by your physician Discharge Instructions: - Discharge Summary Sheet pm1 - Food Choices to Help Relieve Diarrhea, Adult pm1 - Diarrhea, Adult pm1 Forms: - Medication Reconciliation Form pm1 - Thank You Letter pm1 - Antibiotic Education pm1 - Prescription Opioid Use pm1 - Work release form 7 Signatures: Dispatcher [employer] EDLuis Carlos Heard NP NP pm1 Cole Lima RN RN 7 Chema Villegsa MD MD 7 Deja Rodríguez RN RN geoff
[2021-05-04 09:31] VITALS: O2SAT 98
[2021-05-04 09:32] VITALS: BP 110/80; TEMP 98.6
--- NOTE | 2021-05-05 12:37 | EKG ---
Test Date: 2021-05-04 Test Time: 05:23:20 Commercial Photographer: RAMU MEASUREMENT RESULTS: Intervals: Rate: 90 NH: 154 QRSD: 88 QT: 360 QTc: 440 [place]: P: 55 NH: 154 QRS: 73 T: 30 INTERPRETIVE STATEMENTS: Normal sinus rhythm Normal ECG Compared to ECG 03/05/2021 05:58:12 No significant changes Electronically Signed On 05-05-21 12:33:27 CDT by Javon Carranza
== END 2021-05-04 09:14 | disposition home or self-care (01) ==
LOC: ER 04:35
DX: R19.7 Diarrhea, unspecified (principal); F41.9 Anxiety disorder, unspecified
CPT/HCPCS: 93005; 85025; 36415; 83735; 84703; 84100; 81003; 83690; 80053; 74177; 96360; 99284; Q9967

== ENCOUNTER 2021-05-30 13:10 | Emergency (ER) | payer OTHER ==
--- OUTSIDE RECORDS SUMMARY | 2021-05-30 13:13 | XMS REPORT | Continuity of Care Document ---
:1985 Author Organization [facility] t Address [address] [place] [address] Care Team Providers Name Role Phone Tobias LUCIANO Primary Care Physician Tobias CARVALHOP Attending Clinician Vipul CARVALHOP Attending Clinician Zafar CLINICAL REVIEWER, R Attending Clinician Doctor Unassigned, Name Attending Clinician Unavailable 1, [facility] Room Attending Clinician Unavailable Tino HERRERA Attending Clinician Unavailable Payers Payer Name Policy Type Policy Number Effective Date Expiration Date S ource Advance Directives Directive Decision Effective Termination Comments Source Date Date Healthcare Agents on N/A Univ ersity FileNameRelationshipHealthcare of [place] Agent Medical RelationshipCommunicationYork Hospitalda Branch ParralesSiblingBethesda North Hospital Care [phone] (Mobile) Problems Condition Condition Condition Status Onset Resolution Last Treating Co mments Source Name Details Category Date Date Treatment Clinician Date Left arm Left arm Disease Active Unive rs pain pain 4-22 ity of 00:00: [address] Branch Herpes Herpes Disease Active Univers zoster zoster 4-20 ity of without without 00:00: [place] complicati complicati 00 Me dical on on [facility] Disease Active Unive rs discharge discharge 4-20 it[place] of follow[place] [facility] 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 4-20 ity of 00:00: [facility] Normal Normal Disease Active 2020-02 Univers labor labor 0-19 ity of 00:00: [facility] Disease Active 2020-02 Univers (normal (normal 0-19 [place] of spontaneou spont[place] vaginal 00 [facility] delivery) delivery) Bran ch History of History of Disease Active U nivers anxiety anxiety 2-23 ity of 00:00: [place] [facility] BMI BMI Disease Active Univers 32.0-32.9, 32.0-32.9, 2-23 it y of adult adult 00:00: [facility] Former Former Disease Active Univers smoker smoker 2-23 ity of 00:00: [place] [facility] History of History of Disease Active U nivers 2-23 ity of delivery delivery 00:00: [place] [facility] History of History of Disease Active U nivers 2-23 it[place] of premature premature 00:[place] rupture of rupture of 00 Me dical membranes membranes Bran ch (PROM) in (PROM) in previous previous , , currently currently in first in first trimester trimester Chest Chest Disease Active Univers pain, pain, 8-12 ity of atypical atypical 00:00: [facility] 39 weeks 39 weeks Disease Active Unive rs gestation gestation 3-12 ity of of of 00:: [place] 00 [facility] Branch Supervisio Supervisio Disease Active U nivers n of high n of high 1-03 ity of risk risk 00:00: [place] 00 [facility] in first in first Branch trimester trimester Multiparit Multiparit Disease Active U nivers y y 8-22 ity of 00:00: [place] [facility] Obesity in Obesity in Disease Active U nivers 8-22 ity of 00:00: [place] 00 Medical [facility] Papanicola Papanicola Disease Active 2014-0 U nivers ou smear ou smear 7-24 [...] Allergie 7-15 Clear s 00:00: [place] 00 [facility] No Known DA Active U 2012-02 [facility] Allergie 0-06 Clear s 00:00: [place] 00 [facility] Social History Social Habit Start Date Stop Date Quantity Comments Source Exposure to 2021-05-19 2021-05-29 Not sure [facility] SARS-CoV-2 (event) 00:00:00 14:06:00 [facility] Alcohol intake 2021-05-29 2021-05-29 Ex-drinker University 00:00:00 00:00:00 (finding) [facility] Branch Education 2020-11-25 2020-11-25 13 University of 00:00:00 00:00:00 [facility] Branch Tobacco Comment 2020-04-01 2020-04-01 smokes 4 x Universit y of 00:00:00 00:00:00 socially - [facility] stopped smoking Branch 2 weeks ago Alcohol Comment 2020-04-01 2020-04-01 socially Universit y of 00:00:00 00:00:00 [facility] Branch History SDOH 2020-04-01 2020-04-01 99 University o f Alcohol Frequency 00:00:00 00:00:00 [facility] edical Branch History SDOH 2020-04-01 2020-04-01 99 University o f Alcohol Std Drinks 00:00:00 00:00:00 [facility] Branch History SDOH 2020-04-01 2020-04-01 99 University o f Alcohol Binge 00:00:00 00:00:00 [place] [facility] Cigarettes smoked 2016-09-28 2016-09-28 Univers ity of current (pack per 00:00:00 00:00:00 [facility] edical day) - Reported Branch Cigarette 2016-09-28 2016-09-28 University of pack-years 00:00:00 00:00:00 [facility] Tobacco use and 2016-09-28 2016-09-28 Never used Universit y of exposure 00:00:00 00:00:00 [facility] History of tobacco 2016-08-28 Cigarette Smoker University of use 00:00:00 [facility] Sex Ass[birth year] Universit y of 00:00:00 00:00:00 [facility] Smoking Status Start Date Stop Date Source Former smoker 2016-09-28 00:00:00 2016-09-28 00:00:00 [facility] Medications Ordered Filled Start Stop Current Ordering Indication Dosage Frequency Signature Comments Components Source Medication Medication Date Date Medication? Clinician (SIG) Name Name busPIRone 2021- Yes [id number] 10mg Take 1 U nivers 10 mg 4-22 05-23 tablet by ity of tablet 00:00: 04:59 mouth 2 [place] 00 :00 (two) Medical times Branch daily as needed (anxiety) for up to 30 days. ibuprofen 2021- Yes [id number] 600mg Take 1 Univers 600 mg 4-20 05-05 tablet by ity of tablet 00:00: 04:59 mouth [place] 00 :00 every 6 Medical (six) Branch hours as needed for Temp > 38.5 C for up to 14 days. hydrOXYzine 2021- No [id number] 25mg Take 1 Univers 25 mg 4-15 04-22 tablet by ity of tablet 00:00: 00:00 mouth [place] 00 :00 every 6 Medical (six) Branch hours as needed for Itching or Anxiety for up to 30 days. methylPREDN Yes [id number] Take by Univers ISolone 3-23 mouth ity of (MEDROL, 00:00: SEE-INSTRU Jaison as MAIRCHUY,) 4 mg 00 CTIONS. Medica l tablets follow Branch package directions chlorhexidi Yes [id number] 15mL Swish and Univers ne 0.12 % 3-23 spit out ity of mouthwash 00:00: 15 mL 2 [place] 00 (two) Medical times Branch daily. amoxicillin Yes [id number] 500mg Take 1 Univers 500 mg 2-18 capsule by ity of capsule 00:00: mouth 3 [place] 00 (three) Medical times Branch daily. traMADoL Yes [id number] 50mg Take 1 Univers (ULTRAM) 50 2-18 tablet by ity of mg tablet 00:00: mouth [place] 00 every 6 Medical (six) Branch hours as needed for Pain (scale 7-10). Indication s: acute pain docusate 2020-02 Yes [id number] 240mg Take 1 Un rand calcium 240 0-21 capsule by it y of mg capsule 00:00: mouth once [place] 00 daily as Medical needed for Branch Constipati on. ferrous 2020-02 Yes [id number] 325mg Take 1 Uni vers sulfate 325 [...] Immunizations Ordered Filled Immunization Date Status Comments Sour e Immunization Name Name TD 2020-09-15 Completed [facility] 00:00:00 [facility] TD 2017-02-09 Completed University 00:00:00 [facility] TDAP 2007-02-07 Completed [facility] 00:00:00 [facility] Vital Signs Vital Name Observation Time Observation Value Comments Source Systolic blood 2021-05-29 19:15:00 117 mm[Hg] Univer sity of pressure [facility] Diastolic blood 2021-05-29 19:15:00 80 mm[Hg] [facility] 2021-05-29 19:15:00 91 /min [facility] Body temperature 2021-05-29 19:15:[address] [facility] [place] Body height 2021-05-29 19:15:00 154.9 cm [facility] Body weight 2021-05-29 19:15:00 79.606 kg [facility] BMI 2021-05-29 19:15:00 33.16 kg/m2 [facility] Oxygen saturation in 2021-05-29 19:15:00 98 /min University Arterial blood by [facility] Pulse oximetry Branch Procedures This patient has no known procedures. Encounters Start End Encounter Admission Attending Care Care Encounter Source Date/Time Date/Time Type Type Clinicians Facility Department ID 2019-08-22 Inpatient HCACL MALACHI [id number] [facility] 08:59:00 [id number] [facility] 2021-05-29 2021-05-29 Office Tobias [facility] [id number] [facility] 14:00:00 14:30:00 Visit [place] [id number] it y of [place] 4.2.7.2.686 Jaison as EMILIANO?BLEA [id number] [place] [address] MEDICAL OFFICE BUILDING 2020-08-28 2020-08-28 [facility] [id number] 15:21:38 23:59:00 Encounter [place] [id number] [place] 4.2.7.2.686 [place] [id number] 2020-08-28 2020-08-28 Urgent [facility] [id number] 14:13:24 15:23:42 Care [place] [id number] [place] 4.2.7.2.686 Professio [id number] [place] [address] [address] One 2020-08-27 2020-08-27 Routine [facility] [id number] 10:01:23 11:16:37 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 [id number] Visit [facility] [id number] MATERNAL [id number] & CHILD [address] [place] [address] 2020-08-27 2020-08-27 Orders Doctor KEARA [id number] 00:00:00 00:00:00 Only Unassigned, CASI [id number] [facility] 4.2.7.2.686 [id number] 2020-08-19 2020-08-19 Cow Washer 1, [facility] UNIVERSIT [id number] 14:50:51 15:35:51 Visit [facility] Room Y HEALTH [id number] [facility] 4.2.7.2.686 [id number] 2020-08-06 2020-08-06 Nurse KEARA Jiménez [id number] 00:00:00 00:00:00 Triage Mike LANCE [id number] [facility] 4.2.7.2.686 [id number] Results Test Description Test Time Test Comments Results Result Comments Source SARS-CoV-2 (COVID-19), RT-PCR/TMA 2021-02-25 15:19:39 Test Item Value Reference Range Interpretation Comme nts SARS-CoV-2 INTERPRETATION NEGATIVE SEE NOTE S ARS-CoV-2 RNA NOT (test code = 27771) DETECTED Negative results do not preclude SARS-C [...] is h igh. SOURCE (test code = 58613) NASOPHARYNGEAL Note: Methodology is Dannie Stefani Real-Time RT-PCR. The expected r esult or reference range is NEGATIVE (Not Detected). For more information regarding COVID -19 testing to include clinica linformation, methodology det ail, intended use, FDA author ization andrecommended fact sheets for patients or hea lthcare providers, see [employer] Announcement: S ARS-CoV-2 (COVID-19) by N AAT at URL below (note,fact shee ts are provided by method given in report:https:// www.cpllabs.com/c linicians/krystal t-communications/ Alternatively, see downloadable PDF fact sheet at:https://www. [employer]/COVID -19-RT-PCR UNLESS OTHERWISE INDIC ATED, ALL TESTING PERFORMED [facility], [facility]. [address] [place] [address] LABORATORY DIRE CTOR: OCTAVIANO GUZMAN M.D. CLIA NUMBER [id number] [facility] [place]. [id number] COMPREHENSIVE METABOLIC [id number] 10:12:00 Test Item Value Reference Range Interpretation [...] 20-125 N TOTAL (test code = ALKP) [id number] 10:12:00 Test Item Value Reference Range Interpretation [...] may jett y by method. COMPREHENSIVE METABOLIC [id number] 10:11:00 Test Item Value Reference Range Interpretation [...] TOTAL (test IUnit/L 20-125 code = ALKP) [id number] 10:11:00 Test Item Value Reference Range Interpretation [...] results may jett y by method. PROTHROMBIN [id number] 09:59:00 Test Item Value Reference Range Interpretation [...] Infarction (t o prevent recurre nt infarct). [id number] 09:59:00 Test Item Value Reference Range Interpretation [...] TESTS AND APPROPRIATECLIN ICAL EUALUATIONS. CBC W/AUTO [id number] 09:56:00 Test Item Value Reference Range Interpretation [...] code = MDIFF) - XR CHEST 1 [id number] 09:56:00 FAX: Dallas Cain MD [phone] [place]: St: PRE Name: [facility] [place] : 1985 Age/S: 34/F [address] [place] [address] Unit#: [id number] Loc: [place] [address] Phys: Dallas Cain MD Acct: [id number] Dis Date: Status: PRE ER PHONE #: [phone] Exam Date: 08/22/2019 1003 FAX #: [phone] Reason: Chest Pain EXAMS: CPT CODE: [id number] XR CHEST 1 V 49521 PROCEDURE: CHEST SINGLE VIEW INDICATION: Chest Pain COMPARISON: There are no previous relevant studies available for correlation. FINDINGS: The lungs are clear. No pleural abnormality. The cardiomediastinalsilhouette is normal for projection. The bony thorax is intact. IMPRESSION: Normal radiograph. SL: [id number] at 0956 Reported and signed by: Samson Sousa M.D. CC: Dallas Cain MD Technologist: CARLEY Linda) Trnscrd Kory e/Time/By: 08/22/2019 (6838) : By: Krissy Wsidom Print D/T: S: 08/22/2019 (1006) PAGE 1 Signed Report
--- NOTE | 2021-05-30 14:59 | RAD REPORT ---
EXAM DESCRIPTION: RAD - Chest Single View - 05/30/2021 2:48 pm CLINICAL HISTORY: CHEST PAIN Chest pain. COMPARISON: Chest Single View dated 05/20/2021; Chest Pa And Lat (2 Views) dated 03/05/2021; Chest Sin gle View dated 03/02/2021; Chest Single View dated 02/08/2020 FINDINGS: Portable technique limits examination quality. The lungs are grossly clear. The heart is normal in size. No displaced fractures. IMPRESSION: No acute intrathoracic process suspected.
[2021-05-30 15:07] LABS: Absolute Lymphocytes (CBC) 2.1 K/uL (0.7-4.9); Hematocrit 40.4 % (36.0-45.0); MPV 7.2 fL (7.6-11.3); RBC Red Blood Cell Count 5.23 M/uL (3.86-4.86)
[2021-05-30 15:12] LABS: Protime INR 1.24
[2021-05-30 15:28] LABS: ALT/SGPT 22 U/L (12-78); AST/SGOT 14 U/L (15-37); Albumin 3.3 g/dL (3.4-5.0); Alkaline Phosphatase 65 U/L (45-117); BUN Blood Urea Nitrogen 11 mg/dL (7-18); Bicarbonate 25 mmol/L (21-32); Bilirubin Direct 0.2 mg/dL (0-0.2); Bilirubin Total 0.7 mg/dL (0.2-1.0); Glucose Level 88 mg/dL (74-106); Magnesium 2.1 mg/dL (1.8-2.4); NT PRO-BNP 12 pg/mL (<125); Potassium 3.7 mmol/L (3.5-5.1); Protein, Total 8.2 g/dL (6.4-8.2); Sodium Level 137 mmol/L (136-145)
[2021-05-30 16:07] LABS: Troponin High Sensitivity < 3.0 pg/mL (<58.9)
--- NOTE | 2021-05-30 17:54 | RAD REPORT ---
EXAM DESCRIPTION: CT - Chest For Pe Angio - 05/30/2021 5:49 pm CLINICAL HISTORY: Chest pain. Elevated d-dimer outpatient labs COM[facility]: [facility]/05/2021 TECHNIQUE: CT angiogram of the pulmonary arteries was performed with MIP. All CT scans are performed using dose optimization technique as appropriate and may include automated exposure control or mA/KV adjustment according to patient size. FINDINGS: No evidence of pulmonary thromboembolism. No acute aortic finding demonstrated. The lungs are clear. No significant pericardial or pleural fluid. No concerning bony finding. IMPRESSION: No evidence of pulmonary thromboembolism. No acute lung findings.
--- NOTE | 2021-05-30 17:59 | EDPHYS ---
Physician Documentation [facility] Name: Goyo Solorio Age: 36 yrs Sex: Female : 1985 Arrival Date: 05/30/2021 Time: 13:11 Bed 14 Private MD: ED Physician Claudette Valencia HPI: 05/30 13:42 This 36 yrs old Female presents to ER via Ambulatory with complaints of Arm pm1 Pain - Numbness, Back Pain. 13:42 The patient or guardian reports chest pain that is located primarily in the anterior pm1 aspect of left upper chest. The pain radiates to the left arm. Associated signs and symptoms: Pertinent positives: dizziness, back pain, Pertinent negatives: abdominal pain, cough, dizziness, shortness of breath. Duration: The patient or guardian reports multiple episodes, for the past two days. 13:42 Modifying factors: The symptoms are alleviated by nothing. the symptoms are aggravated pm1 by nothing. Severity of pain: in the emergency department the pain is unchanged. The patient has experienced similar episodes in the past, multiple times. The patient has been recently seen by a physician: with similar presenting complaints, lab tests were done, informed that she has elevated d-dimer. 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 - Social history:: Smoking status: Patient reports the use of cigarette tobacco products, denies chronic smoking, but will smoke occasionally. ROS: 13:42 Constitutional: Negative for fever, chills, and weight loss. pm1 13:42 Respiratory: Negative for shortness of breath, cough, wheezing, and pleuritic chest pain, Abdomen/GI: Negative for abdominal pain, nausea, vomiting, diarrhea, and constipation, Back: Negative for injury and pain, MS/Extremity: Negative for injury and deformity, Skin: Negative for injury, rash, and discoloration. 13:42 Cardiovascular: Positive for chest pain, Negative for edema, palpitations. 13:42 Neuro: Positive for numbness, of the left arm. 13:42 All other systems are negative. Exam: 13:42 Constitutional: This is a well developed, well nourished patient who is awake, alert, pm1 and in no acute distress. Head/Face: Normocephalic, atraumatic. 13:42 Back: No spinal tenderness. No costovertebral tenderness. Full range of motion. Skin: Warm, dry with normal turgor. Normal color with no rashes, no lesions, and no evidence of cellulitis. MS/ Extremity: Pulses equal, no cyanosis. Neurovascular intact. Full, normal range of motion. 13:42 Chest/axilla: Exam negative for acute changes, Inspection: normal, Palpation: no acute changes. 13:42 Cardiovascular: Exam negative for Rate: normal, Rhythm: regular, Pulses: no pulse deficits are appreciated, Heart sounds: normal. 13:42 Respiratory: Exam negative for acute changes, respiratory distress, shortness of breath, Breath sounds: are clear throughout. 13:42 Abdomen/GI: Exam negative for acute changes, Inspection: abdomen appears normal, Palpation: abdomen is soft and non-tender, in all quadrants. 13:42 Neuro: Exam negative for acute changes, Orientation: is normal, Mentation: is normal, Motor: is normal, moves all fours. Vital Signs: 13:36 BP 106 / 73; Pulse 90; Resp 18; Temp 97.9; Pulse Ox 100% ; Weight 79.38 kg; Height 5 vg1 ft. 1 in. (154.94 cm); Pain 3/10; 15:24 BP 98 / 75; Pulse 77; Resp 18; Pulse Ox 98% on R/A; ph 16:30 BP 107 / 78; Pulse 76; Resp 18; Temp 97.9; Pulse Ox 99% on R/A; ph 18:00 BP 111 / 76; Pulse 73; Resp 16; Pulse Ox 97% on R/A; ph 13:36 Body Mass Index 33.07 (79.38 kg, 154.94 cm) vg1 MDM: 13:40 Patient medically screened. pm1 17:00 ED course: Patient reports elevated d-dimer with outpatient tests. Will order CT PE pm1 angio. 17:00 Data reviewed: vital signs. Data interpreted: Pulse oximetry: on room air is 98 %. pm1 Interpretation: normal. 17:58 Counseling: I had a detailed discussion with the patient and/or guardian regarding: the pm1 historical points, exam findings, and any diagnostic results supporting the discharge/admit diagnosis, lab results, radiology results, the need for outpatient follow up, to return to the emergency department if symptoms worsen or persist or if there are any questions or concerns that arise at home. 05/30 13:39 Order name: Basic Metabolic Panel; Complete Time: 16:10 pm05/30 13:39 Order name: CBC with Diff; Complete Time: 15:23 pm05/30 13:39 Order name: LFT's; Complete Time: 16:10 pm05/30 13:39 Order name: Magnesium; Complete Time: 16:10 pm05/30 13:39 Order name: NT PRO-BNP; Complete Time: 16:10 pm05/30 13:39 Order name: PT-INR; Complete Time: 15:23 pm05/30 13:39 Order name: Troponin HS; Complete Time: 16:10 pm05/30 13:39 Order name: XRAY Chest (1 view); Complete Time: 15:05 pm05/30 13:39 Order name: EKG; Complete Time: 13:40 pm05/30 13:39 Order name: Cardiac monitoring; Complete Time: 14:10 pm05/30 13:39 Order name: EKG - Nurse/Tech; Complete Time: 14:10 pm05/30 17:00 Order name: CT Chest For PE Angio; Complete Time: 17:56 pm05/30 13:39 Order name: IV Saline Lock; Complete Time: 15:20 pm05/30 13:39 Order name: Labs collected and sent; Complete Time: 15:20 pm05/30 13:39 Order name: O2 Per Protocol; Complete Time: 14:10 pm05/30 13:39 Order name: O2 Sat Monitoring; Complete Time: 14:10 pm1 Administered Medications: 18:27 Not Given (Patient Refused): Ketorolac 30 mg IVP once ph 18:27 Not Given (Patient Refused): NS 0.9% 1000 ml IV at 1000 ml once ph Disposition Summary: 05/30/21 17:59 Discharge Ordered Location: Home pm1 Problem: new pm1 Symptoms: have improved pm1 Condition: Stable pm1 Diagnosis - Chest pain, unspecified pm1 Followup: pm1 - With: Emergency Department - When: As needed - Reason: Worsening of condition Followup: pm1 - With: Private Physician - When: 2 - 3 days - Reason: Recheck today's complaints, Continuance of care, Re-evaluation by your physician Discharge Instructions: - Discharge Summary Sheet pm1 - Nonspecific Chest Pain, Adult pm1 Forms: - Medication Reconciliation Form pm1 - Thank You Letter pm1 - Antibiotic Education pm1 - Prescription Opioid Use pm1 Signatures: Dispatcher [employer] EDMS Luis Carlos Paniagua NP QC SCIENTIST pm1 Renuka Ruelas RN RN vg1 Aliya Reyes RN ph Corrections: (The following items were deleted from the chart) 19:59 13:42 Associated signs and symptoms: Pertinent positives: back pain, Pertinent pm1 negatives: abdominal pain, cough, dizziness, shortness of breath, pm1 20:00 13:42 Duration: The patient or guardian reports a single episode, pm1 pm1
--- NOTE | 2021-05-30 17:59 | ER ---
Nurse's Notes [facility] Name: Goyo Solorio Age: 36 yrs Sex: Female : 1985 Arrival Date: 05/30/2021 Time: 13:11 Bed 14 Private MD: Diagnosis: Chest pain, unspecified Presentation: 05/30 13:36 Chief complaint: Patient states: Chest pain that comes and goes x2 days, also states vg1 tingling to Left arm and dizziness; states mid back pain that began today. Denies NVD. States saw PCP and was told D dimer was elevated and was referred to websphere commerce developer. Coronavirus screen: Vaccine status: Patient reports being unvaccinated. Client denies travel out of the [place] in the last 14 days. Ebola Screen: Patient denies exposure to infectious person. Patient denies travel to an Ebola-affected area in the 21 days before illness onset. Initial Sepsis Screen: Does the patient meet any 2 criteria? No. Patient's initial sepsis screen is negative. Does the patient have a suspected source of infection? No. Patient's initial sepsis screen is negative. Risk Assessment: Do you want to hurt yourself or someone else? Patient reports no desire to harm self or others. Onset of symptoms was May 28, 2021. 13:36 Method Of Arrival: Ambulatory vg1 13:36 Acuity: EUGENIO 3 vg1 Triage Assessment: 13:36 General: Appears in no apparent distress. uncomfortable, Behavior is cooperative, vg1 anxious. Pain: Complains of pain in back and chest Pain currently is 3 out of 10 on a pain scale. Pain began 2-3 days ago. Musculoskeletal: Circulation, motion, and sensation intact. DIAL MOUNTER: 13:36 LMP 05/30/2021 vg1 Historical: - Allergies: 13:40 No Known Allergies; vg1 - PMHx: 13:40 Anxiety; panic attack; vg1 - Immunization history:: Client reports having NOT received the Covid vaccine. - Social history:: Smoking status: Patient reports the use of cigarette tobacco products, denies chronic smoking, but will smoke occasionally. Screenin:10 Abuse screen: Denies threats or abuse. Denies injuries from another. Nutritional ph screening: No deficits noted. Tuberculosis screening: No symptoms or risk factors identified. Fall Risk None identified. Assessment: 14:45 General: Appears in no apparent distress. comfortable, well groomed, Behavior is ph cooperative, appropriate for age, Denies fever, feeling ill. Pain: Complains of pain in chest Pain radiates to back. Neuro: Level of Consciousness is awake, alert, obeys commands, Oriented to person, place, time, situation. Cardiovascular: Reports chest pain, Denies fatigue, lightheadedness, nausea, palpitations, shortness of breath, Capillary refill < 3 seconds in bilateral fingers Patient's skin is warm and dry. Rhythm is regular Chest pain is located in substernal area radiates to left arm(s) back. Respiratory: Airway is patent Respiratory effort is even, unlabored. GI: No signs and/or symptoms were reported involving the gastrointestinal system. Derm: Skin is intact, is healthy with good turgor, Skin is pink, warm \T\ dry. Musculoskeletal: Circulation, motion, and sensation intact. Range of motion: intact in all extremities. 16:30 Reassessment: Patient appears in no apparent distress at this time. Patient and/or ph family updated on plan of care and expected duration. Pain level reassessed. Patient is alert, oriented x 3, equal unlabored respirations, skin warm/dry/pink. Vital Signs: 13:36 BP 106 / 73; Pulse 90; Resp 18; Temp 97.9; Pulse Ox 100% ; Weight 79.38 kg; Height 5 vg1 ft. 1 in. (154.94 cm); Pain 3/10; 15:24 BP 98 / 75; Pulse 77; Resp 18; Pulse Ox 98% on R/A; ph 16:30 BP 107 / 78; Pulse 76; Resp 18; Temp 97.9; Pulse Ox 99% on R/A; ph 18:00 BP 111 / 76; Pulse 73; Resp 16; Pulse Ox 97% on R/A; ph 13:36 Body Mass Index 33.07 (79.38 kg, 154.94 cm) vg1 ED Course: 13:11 Patient arrived in ED. ds1 13:18 Luis Carlos Paniagua NP is PHCP. pm1 13:18 Claudette Valencia MD is Attending Physician. pm1 13:36 Arm band placed on. vg1 13:40 Triage completed. vg1 14:06 Placed in gown. Bed in low position. Call light in reach. Side rails up X 1. Door mb7 closed. Noise minimized. Warm blanket given. 14:06 EKG done, by ED staff, reviewed by Luis Carlos Paniagua NP. mb7 14:10 Aliya Reyes, RN is Primary Nurse. ph 14:45 Initial lab(s) drawn, by az, sent to lab. Inserted saline lock: 22 gauge in right ph antecubital area, using aseptic technique. Blood collected. 14:50 XRAY Chest (1 view) In Process Unspecified. EDMS 17:51 CT Chest For PE Angio In Process Unspecified. EDMS 19:20 No provider procedures requiring assistance completed. IV discontinued, intact, ph bleeding controlled, No redness/swelling at site. Pressure dressing applied. Administered Medications: 18:27 Not Given (Patient Refused): Ketorolac 30 mg IVP once ph 18:27 Not Given (Patient Refused): NS 0.9% 1000 ml IV at 1000 ml once ph Outcome: 17:59 Discharge ordered by MD. pm1 19:20 Discharged to home ambulatory. ph 19:20 Condition: good 19:20 Discharge instructions given to patient, Instructed on discharge instructions, follow up and referral plans. Demonstrated understanding of instructions, follow-up care. 19:21 Patient left the ED. ph Signatures: Dispatcher [employer] EDMA Peyton Dacosta ds1 Aliya Reyes, JAVIER RN Luis Carlos Paniagua NP CUPBOARD BUILDER pm1 Renuka Ruelas RN RN vg1 Lanie Haynes mb7 Corrections: (The following items were deleted from the chart) 13:40 13:36 Pulse 90bpm; Resp 18bpm; Pulse Ox 100%; Temp 97.9F; 79.38 kg; Height 5 ft. 1 in.; vg1 BMI: 33.0; Pain 3/10; vg1
[2021-05-30] MEDS ORDERED: KETOROLAC 30 MG/ML INJ ONE (18:25)
[2021-05-30] MEDS ORDERED: NA CHLORIDE 0.9% 1,000 ML ONE (18:25)
[2021-05-30 19:32] VITALS: TEMP 97.9
[2021-05-30 19:33] VITALS: BP 98/75; O2SAT 98
== END 2021-05-30 19:21 | disposition home or self-care (01) ==
LOC: ER 13:10
DX: R07.9 Chest pain, unspecified (principal); R42 Dizziness and giddiness; M54.9 Dorsalgia, unspecified; F17.210 Nicotine dependence, cigarettes, uncomplicated
CPT/HCPCS: 93005; 85025; 80048; 36415; 83735; 85610; 80076; 84484; 83880; 71275; 71045; 99284; Q9967; J7030

== ENCOUNTER 2021-07-09 21:37 | Emergency (ER) | payer OTHER ==
--- OUTSIDE RECORDS SUMMARY | 2021-07-09 21:40 | XMS REPORT | Continuity of Care Document ---
:1985 Author Organization [facility] t Address [address] [place] [address] Care Team Providers Name Role Phone GORGE Primary Care Physician Unavailable KELSIE Attending Clinician Unavailable Daniela HDZP, C Attending Clinician Jocelyn CARIAS Attending Clinician Unavailable Vipul EARLY HEAD START DIRECTOR Attending Clinician Jv LUCIANO, R Attending Clinician Doctor Unassigned, Name Attending Clinician Unavailable 1, [facility] Room Attending Clinician Unavailable Tino HERRERA Attending Clinician Unavailable Payers Payer Name Policy Type Policy Number Effective Date Expiration Date S ource Problems Condition Condition Condition Status Onset Resolution Last Treating Co mments Source Name Details Category Date Date Treatment Clinician Date Diverticul Diverticul Disease Active U nivers osis osis 5-20 ity of 00:00: [address] Well woman Well woman Disease Active U nivers exam exam 5-04 ity of 00:00: [address] Left arm Left arm Disease Active Unive rs pain pain 4-22 ity of 00:00: [address] Branch Herpes Herpes Disease Active Univers zoster zoster 4-20 ity of without without 00:00: [place] complicati complicati 00 Me dical on on Branch 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 4-20 ity of 00:00: [place] [address] Medical Branch History of History of Disease Active U nivers anxiety anxiety 2-23 ity of 00:00: [address] Branch BMI BMI Disease Active Univers 32.0-32.9, 32.0-32.9, 2-23 it y of adult adult 00:00: [address] Branch Former Former Disease Active Univers smoker smoker 2-23 ity of 00:: [address] Branch Chest Chest Disease Active Univers pain, pain, 8-12 ity of atypical atypical 00:00: [address] Branch Obesity Obesity Disease Active Univers (BMI (BMI 8-22 ity of 30-39.9) 30-39.9) 00:00: [address] Branch Papanicola Papanicola Disease Active U nivers ou smear ou smear 7-24 ity of of cervix of cervix 00:00: [facility] s with low with low 00 Medica l 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 No Known DA Active U 2012-02 [facility] Allergie 0-06 Clear s 00:00: Hough 00 [facility] NO KNOWN Drug Active Univers ALLERGIE Class ity of S [facility] Social History Social Habit Start Date Stop Date Quantity Comments Source Exposure to 2021-06-20 2021-06-30 Not sure [facility] SARS-CoV-2 (event) 00:00:00 14:41:00 [facility] Alcohol intake 2021-06-26 2021-06-26 Ex-drinker [facility] 00:00:00 00:00:00 (finding) [facility] Education 2020-11-252020-11-25 13 University of 00:00:00 00:00:00 [facility] Branch Tobacco Comment 2020-04-01 2020-04-01 smokes 4 x Universit y of 00:00:00 00:00:00 socially - [facility] stopped smoking Branch 2 weeks ago Alcohol Comment 2020-04-01 2020-04-01 socially Universit y of 00:00:00 00:00:00 [facility] Branch History SDOH 2020-04-01 2020-04-01 99 University o f Alcohol Frequency 00:00:00 00:00:00 [facility] edical Branch History SDOH 2020-04-01 2020-04-01 99 University o f Alcohol Std Drinks 00:00:00 00:00:00 [facility] History SDOH 2020-04-01 2020-04-01 99 University o f Alcohol Binge 00:00:00 00:00:00 [facility] Branch Cigarettes smoked 2016-09-28 2016-09-28 Univers ity of current (pack per 00:00:00 00:00:00 [facility] ) - Reported Branch Cigarette 2016-09-28 2016-09-28 University of pack-years 00:00:00 00:00:00 [facility] Tobacco use and 2016-09-28 2016-09-28 Never used Universit y of exposure 00:00:00 00:00:00 [facility] History of tobacco 2016-08-28 Cigarette Smoker University of use 00:00:00 [facility] Sex Ass[birth year] At [birth year] Universit y of 00:00:00 00:00:00 [facility] Smoking Status Start Date Stop Date Source Former smoker 2016-09-28 00:00:00 2016-09-28 00:00:00 Universi ty of [facility] Medications Ordered Filled Start Stop Current Ordering Indication Dosage Frequency Signature Comments Components Source Medication Medication Date Date Medication? Clinician (SIG) Name Name busPIRone Yes 10mg Take 10 mg Un rand 10 mg 5-20 by mouth ity of tablet 14:58: as needed. [address] busPIRone Yes 10mg Take 10 mg Un rand 10 mg 5-20 by mouth ity of tablet 14:58: as needed. [address] Immunizations Ordered Filled Immunization Date Status Comments Sourc e Immunization Name Name TDAP 2020-09-15 Completed University 00:00:00 [facility] TD 2020-09-15 Completed University 00:00:00 [facility] TD 2017-02-09 Completed University of 00:00:00 [facility] TDAP 2017-02-09 Completed University of 00:00:00 [facility] TDAP 2007-02-07 [facility] 00[facility] Vital Signs Vital Name Observation Time Observation Value Comments Source Systolic blood 2021-06-30 19:42:00 110 mm[Hg] Univer sity of pressure [facility] Diastolic blood 2021-06-30 19:42:00 72 mm[Hg] Unive rsity [facility] Heart rate 2021-06-30 19:42:00 82 /min [facility] Body temperature 2021-06-30 19:42:00 36.94 Brigitte [facility] Respiratory rate 2021-06-30 19:42:00 16 /min [facility] Body height 2021-06-30 19:42:00 154.9 cm [facility] Body weight 2021-06-30 19:42:00 77.928 kg [facility] BMI 2021-06-30 19:42:00 32.46 kg/m2 [facility] Procedures Procedure Date / Time Performed Performing Clinician Lottie e GALV ONLY - VAGINAL 2021-06-30 20:39:00 Brittney Suarez [facility] PATHOGENS BY IM5 [facility] ACID TESTING Encounters Start End Encounter Admission Attending Care Care Encounter Source Date/Time Date/Time Type Type Clinicians Facility Department ID 2021-09-02 2021-09-02 Outpatient R [facility]TY [facility] [id number] Univers 13:30:00 13:30:00 SKYLER [id number] pinky stephenson [facility] 2021-06-30 2021-06-30 Office MADAN Suarez [id number] Univers 14:30:00 15:41:19 Visit Brittney Hawkins KENNEL WORKER [id number] ity of REGIONAL [id number] Jaison as MATERNAL [id number] Med ical & CHILD 107 [facility] 2021-06-26 2021-06-26 Outpatient R JV [facility] [id number] [facility] 07:45:00 07:45:00 DIMITRIS [id number] ity o f [facility] 2020-08-28 2020-08-28 Formerly [facility] [id number] 15:21:38 23:59:00 Encounter [place] [id number] [place] [id number] [place] [id number] 2020-08-28 2020-08-28 Urgent [facility] [id number] 14:13:24 15:23:42 Care [facility] [id number] [place] [id number] Professio [id number] nal 0[address] 2020-08-27 2020-08-27 Routine [facility] [id number] 10:01:23 11:16:37 Grisjosué Banks KENNEL WORKER [id number] Visit REGIONAL [id number] MATERNAL [id number] & CHILD [address] [place] [address] 2020-08-27 2020-08-27 Orders Doctor KEARA [id number] 00:00:00 00:00:00 Only Unassigned, CASI [id number] [place] [facility] 4.2.7.2.686 [id number] 2020-08-19 2020-08-19 Tobacco Scrap Sifter 1, [facility] UNIVERSIT [id number] 14:50:51 15:35:51 [facility] [id number] CLINICS [id number] [id number] 2020-08-06 2020-08-06 Nurse KEARA Jiménez [id number] 00:00:00 00:00:00 Triage Mike CASI [id number] [facility] [id number] [id number] 2019-08-22 2019-08-24 Inpatient HCAJADE LY [id number] [facility] 08:59:00 07:24:30 33 [facility] Results Test Description Test Time Test Comments Results Result Comments Source SARS-CoV-2 (COVID-19), RT-PCR/TMA 2021-02-25 15:19:39 Test Item Value Reference Range Interpretation Comme nts SARS-CoV-2 INTERPRETATION NEGATIVE SEE NOTE S ARS-CoV-2 RNA NOT (test code = 52135) DETECTED Negative results do not preclude SARS-C [...] is h igh. SOURCE (test code = 44791) NASOPHARYNGEAL Note: Methodology is Dannie Stefani Real-Time RT-PCR. The expected r esult or reference range is NEGATIVE (Not Detected). For more information regarding COVID -19 testing to include clinica linformation, methodology det ail, intended use, FDA author ization andrecommended fact sheets for patients or a [facility] providers, see NewTest Announcement: S ARS-CoV-2 (COVID-19) by N AAT at URL below (note,fact shee ts are provided by method given in report:https:// www.[address]/c lesicians/krystal t-communications/ Alternatively, see downloadable PDF fact sheet at:https://www. [address]/COVID -19-RT-PCR UNLESS OTHERWISE INDIC ATED, ALL TESTING PERFORMED [facility], [facility]. [address] [place] [address] 78 [phone] LABORATORY DIRE CTOR: OCTAVIANO GUZMAN M.D. CLIA NUMBER [id number] [facility] [place]. [id number] COMPREHENSIVE METABOLIC [id number] 10:12:00 Test Item Value Reference Range Interpretation [...] 20-125 N TOTAL (test code = ALKP) [id number] 10:12:00 Test Item Value Reference Range Interpretation [...] may jett y by method. COMPREHENSIVE METABOLIC [id number] 10:11:00 Test Item Value Reference Range Interpretation [...] TOTAL (test IUnit/L 20-125 code = ALKP) [id number] 10:11:00 Test Item Value Reference Range Interpretation [...] results may jett y by method. PROTHROMBIN [id number] 09:59:00 Test Item Value Reference Range Interpretation [...] Infarction (t o prevent recurre nt infarct). [id number] 09:59:00 Test Item Value Reference Range Interpretation [...] TESTS AND APPROPRIATECLIN ICAL EUALUATIONS. CBC W/AUTO [id number] 09:56:00 Test Item Value Reference Range Interpretation [...] code = MDIFF) - XR CHEST 1 [id number] 09:56:00 FAX: Dallas Cain MD [phone] [place]: [address]: PRE Name: RAGHAVENDRA QUINN [facility] [place] : 1985 Age/S: 34/F [address] [place] [address] Unit#: [id number] [place]: [place] [address] Phys: Dallas Cain MD Acct: [id number] Dis Date: Status: PRE ER PHONE #: [phone] Exam Date: 08/22/2019 1003 FAX #: [phone] Reason: Chest Pain EXAMS: CPT CODE: [id number] XR CHEST 1 V [id number] PROCEDURE: CHEST SINGLE VIEW INDICATION: Chest Pain COMPARISON: There are no previous relevant studies available for correlation. FINDINGS: The lungs are clear. No pleural abnormality. The cardiomediastinalsilhouette is normal for projection. The bony thorax is intact. IMPRESSION: Normal radiograph. SL: [id number] at 0956 Reported and signed by: Samson Sousa M.D. CC: Dallas Cain MD Technologist: RT Maddi(R) Trnscrd Kory e/Time/By: 08/22/2019 (9800) : By: Krissy Orig Print D/T: S: 08/22/2019 (100) PAGE 1 Signed Report
[2021-07-09 22:21] LABS: Absolute Lymphocytes (CBC) 4.3 K/uL (0.7-4.9); Hematocrit 42.3 % (36.0-45.0); Lymphocytes % 32.1 % (15.3-44.8); RBC Red Blood Cell Count 5.49 M/uL (3.86-4.86)
--- NOTE | 2021-07-09 22:33 | RAD REPORT ---
EXAM DESCRIPTION: Sima Single View07/09/2021 10:26 pm CLINICAL HISTORY: Dizziness COMPARISON: May 2021 FINDINGS: The lungs appear clear of acute infiltrate. The heart is normal size IMPRESSION: No acute abnormalities displayed
--- NOTE | 2021-07-09 22:36 | RAD REPORT ---
EXAM DESCRIPTION: CT - Head Brain Wo Cont - 07/09/2021 10:23 pm CLINICAL HISTORY: Dizziness COMPARISON: March 2021 TECHNIQUE: Computed axial tomography of the head was obtained. IV contrast was not requested. All CT scans are performed using dose optimization technique as appropriate and may include automated exposure control or mA/KV adjustment according to patient size. FINDINGS: An intracranial bleed is not seen . The ventricles are normal in caliber. No significant hypodense areas within the brain visualized No extra-axial fluid collection is noted. Fluid within the sinuses/ mastoids is not seen. IMPRESSION: No acute intracranial abnormality is seen. If patient's symptoms persist MRI of the bra in would be recommended.
[2021-07-09 22:41] LABS: ALT/SGPT 14 U/L (12-78); AST/SGOT 6 U/L (15-37); Albumin 3.2 g/dL (3.4-5.0); Alkaline Phosphatase 65 U/L (45-117); BUN Blood Urea Nitrogen 17 mg/dL (7-18); Bicarbonate 25 mmol/L (21-32); Bilirubin Total 0.2 mg/dL (0.2-1.0); Glomerular Filtration Rate 106 ml/min (=/>90); Glucose Level 104 mg/dL (74-106); Magnesium 1.9 mg/dL (1.8-2.4); NT PRO-BNP 9 pg/mL (<125); Potassium 3.7 mmol/L (3.5-5.1); Protein, Total 7.7 g/dL (6.4-8.2); Sodium Level 139 mmol/L (136-145)
[2021-07-09 22:49] LABS: Protime INR 1.2
[2021-07-09 22:54] LABS: Bilirubin Direct < 0.1 mg/dL (0-0.2); Troponin High Sensitivity < 3.0 pg/mL (<58.9)
--- NOTE | 2021-07-09 23:17 | EDPHYS ---
Physician Documentation [facility] Name: Goyo Solorio Age: 36 yrs Sex: Female : 1985 Arrival Date: 07/09/2021 Time: 21:39 Bed Treatment Private MD: ED Physician Akshat Dillard HPI: 07/09 21:54 This 36 yrs old Female presents to ER via Ambulatory with complaints of m Dizziness. 21:54 The patient presents with dizziness. Onset: The symptoms/episode began/occurred jm acutely. This is a 36-year-old female with history of anxiety the presents to the emergency department with complaints of acute onset dizziness beginning earlier this morning around 9 AM when she awoke. Symptoms are worsened when she lifts her head up. Patient also complains of nausea but denies any episodes of vomiting or abdominal pain. Denies previous episodes that are similar to this. Denies recent upper respiratory infection or cold. Denies ringing of her ears. Denies earache.. 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 - Social history:: Smoking status: Patient denies any tobacco usage or history of. Patient/guardian denies using alcohol. ROS: 21:54 Constitutional: Negative for fever, chills, and weight loss, Cardiovascular: Negative jmm for chest pain, palpitations, and edema, Respiratory: Negative for shortness of breath, cough, wheezing, and pleuritic chest pain. 21:54 Neuro: Positive for dizziness. 21:54 All other systems are negative. Exam: 21:54 Constitutional: This is a well developed, well nourished patient who is awake, alert, jmm and in no acute distress. Head/Face: atraumatic. 21:54 ENT: Moist Mucus Membranes Neck: Trachea midline, Supple Chest/axilla: Normal chest wall appearance and motion. Cardiovascular: Regular rate and rhythm. No edema appreciated Respiratory: Normal respirations, no respiratory distress appreciated Abdomen/GI: Non distended, soft Back: Normal ROM Skin: General appearance color normal MS/ Extremity: Moves all extremities, no obvious deformities appreciated, no edema noted to the lower extremities 21:54 Eyes: Nystagmus: nystagmus with fast component noted. 21:54 Neuro: Orientation: is normal, Mentation: is normal, Memory: is normal, Cerebellar function: normal finger to nose testing. Vital Signs: 21:52 BP 119 / 82; Pulse 101; Resp 20; Temp 98.6(TE); Pulse Ox 100% on R/A; Weight 78.02 kg; ld1 Height 5 ft. 1 in. (154.94 cm); Pain 0/10; 23:09 BP 116 / 82; Pulse 96; Resp 18; Pulse Ox 100% on R/A; ld1 21:52 Body Mass Index 32.50 (78.02 kg, 154.94 cm) ld1 MDM: 21:54 Patient medically screened. [facility] 23:16 Data reviewed: vital signs, nurses notes. [facility] 23:16 Counseling: I had a detailed discussion with the patient and/or guardian regarding: the [facility] historical points, exam findings, and any diagnostic results supporting the discharge/admit diagnosis, lab results, radiology results, the need for outpatient follow up, to return to the emergency department if symptoms worsen or persist or if there are any questions or concerns that arise at home. ED course: Labs and imaging studies were unremarkable. EKG showed a normal sinus rhythm. I do not suspect central cause of vertigo. Patient will be prescribed meclizine and antiemetics. Advised to follow-up with PCP for reevaluation otherwise given strict return precautions. Patient understood and agrees to plan of care.. 07/09 22:00 Order name: Basic Metabolic Panel; Complete Time: 22:56 [facility] 07/09 22:00 Order name: CBC with Diff; Complete Time: 22:27 [facility] 07/09 22:00 Order name: LFT's; Complete Time: :56 [facility] 07/09 22:00 Order name: Magnesium; Complete Time: :56 [facility] 07/09 22:00 Order name: NT PRO-BNP; Complete Time: 22:56 [facility] 07/09 22:00 Order name: PT-INR; Complete Time: 22:50 [facility] 07/09 22:00 Order name: Troponin HS; Complete Time: 22:56 [facility] 07/09 22:00 Order name: XRAY Chest (1 view); Complete Time: 22:35 [facility] 07/09 22:00 Order name: EKG; Complete Time: 22:01 [facility] 07/09 22:00 Order name: Cardiac monitoring; Complete Time: 22:07 [facility] 07/09 22:00 Order name: EKG - Nurse/Tech; Complete Time: 22:07 [facility] 07/09 22:00 Order name: IV Saline Lock; Complete Time: 22:14 [facility] 07/09 22:00 Order name: Labs collected and sent; Complete Time: 22:14 [facility] 07/09 22:02 Order name: CT Head Brain wo Cont; Complete Time: 22:38 [facility] 07/09 22:00 Order name: O2 Per Protocol; Complete Time: 22:07 [facility] 07/09 22:00 Order name: O2 Sat Monitoring; Complete Time: 22:07 [facility] Administered Medications: No medications were administered Disposition: 07/10 05:16 Co-signature as Attending Physician, Akshat TALAVERA was immediately available on-site ms3 in the Emergency Department for consultation in the care of the patient.. Disposition Summary: 07/09/21 23:17 Discharge Ordered Location: Home [facility] Condition: Stable [facility] Diagnosis - Vertigo [facility] Followup: [facility] - With: Private Physician - When: 1 - 2 days - Reason: Recheck today's complaints, Continuance of care, Re-evaluation by your physician Discharge Instructions: - Discharge Summary Sheet [facility] - Benign Positional Vertigo [facility] - Vertigo [facility] - How to Perform the Jp Maneuver [facility] Forms: - Medication Reconciliation Form [facility] - Thank You Letter [facility] - Antibiotic Education [facility] - Prescription Opioid Use [facility] Prescriptions: - ondansetron 4 mg Oral tablet,disintegrating - place 1 tablet by TRANSLINGUAL route every 4-6 hours; 20 tablet; Refills: 0, [facility] Product Selection Permitted - Meclizine 25 mg Oral Tablet - take 1 tablet by ORAL route every 8 hours As needed; 30 tablet; Refills: 0, [facility] Product Selection Permitted Signatures: Dispatcher [employer] EDJean-Claude Parker PA PA jmm Sims, Marcus, DO DO ms3 Chrissie Santamaria RN RN ld1
--- NOTE | 2021-07-09 23:17 | ER ---
Nurse's Notes [facility] Name: Goyo Solorio Age: 36 yrs Sex: Female : 1985 Arrival Date: 07/09/2021 Time: 21:39 Bed Treatment Private MD: Diagnosis: Vertigo Presentation: 07/09 21:52 Chief complaint: Patient states: Dizzy since this morning. Coronavirus screen: At this ld1 time, the client does not indicate any symptoms associated with coronavirus-19. Ebola Screen: No symptoms or risks identified at this time. Initial Sepsis Screen: Does the patient meet any 2 criteria? No. Patient's initial sepsis screen is negative. Does the patient have a suspected source of infection? No. Patient's initial sepsis screen is negative. Risk Assessment: Do you want to hurt yourself or someone else? Patient reports no desire to harm self or others. Onset of symptoms was July 09, 2021. 21:52 Method Of Arrival: Ambulatory ld1 21:52 Acuity: EUGENIO 3 ld1 Triage Assessment: 21:53 General: Appears in no apparent distress. comfortable, Behavior is calm, cooperative, ld1 appropriate for age. Pain: Denies pain. EENT: No signs and/or symptoms were reported regarding the EENT system. Neuro: Level of Consciousness is awake, alert, obeys commands, Oriented to person, place, time, situation. Cardiovascular: Capillary refill < 3 seconds Patient's skin is warm and dry. Respiratory: Airway is patent Respiratory effort is even, unlabored. GI: Abdomen is flat, non-distended. : No signs and/or symptoms were reported regarding the genitourinary system. Derm: No signs and/or symptoms reported regarding the dermatologic system. Musculoskeletal: No signs and/or symptoms reported regarding the musculoskeletal system. 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 - Social history:: Smoking status: Patient denies any tobacco usage or history of. Patient/guardian denies using alcohol. Screenin:56 Abuse screen: Denies threats or abuse. Denies injuries from another. Nutritional ld1 screening: No deficits noted. Tuberculosis screening: No symptoms or risk factors identified. Fall Risk None identified. Assessment: 21:56 Reassessment: Patient appears in no apparent distress at this time. Patient is alert, ld1 oriented x 3, equal unlabored respirations, skin warm/dry/pink. Vital Signs: 21:52 BP 119 / 82; Pulse 101; Resp 20; Temp 98.6(TE); Pulse Ox 100% on R/A; Weight 78.02 kg; ld1 Height 5 ft. 1 in. (154.94 cm); Pain 0/10; 23:09 BP 116 / 82; Pulse 96; Resp 18; Pulse Ox 100% on R/A; ld1 21:52 Body Mass Index 32.50 (78.02 kg, 154.94 cm) ld1 ED Course: 21:39 Patient arrived in ED. [facility] 21:42 Jean-Claude Palacio PA is PHCP. [facility] 21:42 Akshat Dillard DO is Attending Physician. jm 21:52 Chrissie Santamaria, JAVIER is Primary Nurse. ld1 21:53 Triage completed. ld1 21:53 Arm band placed on right wrist. ld1 21:56 Patient has correct armband on for positive identification. Placed in gown. Bed in low ld1 position. Call light in reach. Side rails up X2. monitoring and evaluation advisor on. Pulse ox on. NIBP on. Door closed. Noise minimized. Warm blanket given. 21:56 No provider procedures requiring assistance completed. ld1 22:14 Inserted saline lock: 20 gauge in left antecubital area, using aseptic technique. Blood ld1 collected. 22:25 CT Head Brain wo Cont In Process Unspecified. EDMS 22:28 XRAY Chest (1 view) In Process Unspecified. EDMS 23:25 IV discontinued, intact, bleeding controlled, No redness/swelling at site. ld1 Administered Medications: No medications were administered Medication: 21:56 VIS not applicable for this client. ld1 Outcome: 23:17 Discharge ordered by . diana 23:25 Discharged to home ambulatory. ld1 23:25 Condition: stable 23:25 Discharge instructions given to patient, Instructed on discharge instructions, follow up and referral plans. medication usage, Demonstrated understanding of instructions, follow-up care, medications, Prescriptions given X 2. 23:25 Patient left the ED. ld1 Signatures: Dispatcher [employer] EDMS Jean-Claude Palacio PA PA jmm Paniauga, Brittany bp1 Dibbern, Lauren, JAVIER RN ld1
[2021-07-09 23:53] VITALS: TEMP 98.6; O2SAT 100
[2021-07-09 23:56] VITALS: BP 116/82
--- NOTE | 2021-07-11 14:30 | EKG ---
Test Date: 2021-07-09 Test Time: 22:03:10 Clerk Manager: KEE MEASUREMENT RESULTS: Intervals: Rate: 96 VT: 158 QRSD: 84 QT: 350 QTc: 442 [place]: P: 58 VT: 158 QRS: 81 T: 44 INTERPRETIVE STATEMENTS: Normal sinus rhythm Normal ECG Compared to ECG 05/30/2021 14:01:40 No significant changes Electronically Signed On 07-11-21 14:30:07 CDT by Bill Casillas
== END 2021-07-09 23:25 | disposition home or self-care (01) ==
LOC: ER 21:37
DX: R42 Dizziness and giddiness (principal); F41.9 Anxiety disorder, unspecified
CPT/HCPCS: 36415; 70450; 71045; 80048; 80076; 83735; 83880; 84484; 85025; 85610; 93005; 99284

== ENCOUNTER 2021-08-12 16:15 | Emergency (ER) | payer OTHER ==
[2021-08-12 18:21] LABS: Urine Blood Negative (Negative); Urine Glucose Negative (Negative); Urine Protein Negative (Negative); Urine Specific Gravity >=1.030 (1.005-1.030); Urine pH 5.5 (5.0-7.0)
[2021-08-12 18:26] LABS: Absolute Lymphocytes (CBC) 2.7 K/uL (0.7-4.9); Hematocrit 43.8 % (36.0-45.0); Lymphocytes % 24.4 % (15.3-44.8); MCV 76.7 fL (80-100); RBC Red Blood Cell Count 5.71 M/uL (3.86-4.86)
[2021-08-12 18:29] LABS: Albumin 3.6 g/dL (3.4-5.0); Bilirubin Total 0.4 mg/dL (0.2-1.0); Protein, Total 8.6 g/dL (6.4-8.2)
[2021-08-12 18:40] LABS: Urine Bacteria <20 /HPF (<20); Urine Mucus LIGHT /HPF (NONE SEEN); Urine RBC NONE SEEN /HPF (NONE SEEN)
[2021-08-12] MEDS ORDERED: NA CHLORIDE 0.9% 1,000 ML ONE (19:53)
--- NOTE | 2021-08-12 20:30 | EDPHYS ---
Physician Documentation [facility] Name: Goyo Solorio Age: 36 yrs Sex: Female : 1985 Arrival Date: 08/12/2021 Time: 16:16 Bed Waiting Private MD: ED Physician Simba Duenas HPI: 08/12 17:00 This 36 yrs old Female presents to ER via Ambulatory with complaints of jh7 Dizziness. 17:00 Onset: The symptoms/episode began/occurred today. Patient reports dizziness beginning jh7 today and diarrhea over the past 3 days. States that she was taking ampicillin for UTI and that she started having diarrhea shortly after that. Denies having any urinary symptoms at this time. Reports that she has an appointment with her PCP tomorrow, but just wanted to be checked out in the ER first.. 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 - Social history:: Smoking status: Patient reports the use of cigarette tobacco products, denies chronic smoking, but will smoke occasionally, Patient uses alcohol, on a daily basis. ROS: 17:00 Constitutional: Negative for fever, chills, and weight loss, ENT: Negative for injury, jh7 pain, and discharge, Cardiovascular: Negative for chest pain, palpitations, and edema, Respiratory: Negative for shortness of breath, cough, wheezing, and pleuritic chest pain, : Negative for injury, bleeding, discharge, and swelling, Skin: Negative for injury, rash, and discoloration. 17:00 Abdomen/GI: Positive for diarrhea, Negative for abdominal pain, nausea and vomiting. 17:00 Neuro: Positive for dizziness, Negative for altered mental status, loss of consciousness, speech changes, syncope, visual changes. 17:00 All other systems are negative. Exam: 17:00 Constitutional: This is a well developed, well nourished patient who is awake, alert, jh7 and in no acute distress. Head/Face: Normocephalic, atraumatic. ENT: Nares patent. No nasal discharge, no septal abnormalities noted. Tympanic membranes are normal and external auditory canals are clear. Oropharynx with no redness, swelling, or masses, exudates, or evidence of obstruction, uvula midline. Mucous membranes moist. Cardiovascular: Regular rate and rhythm with a normal S1 and S2. No gallops, murmurs, or rubs. Normal PMI, no JVD. No pulse deficits. Respiratory: Lungs have equal breath sounds bilaterally, clear to auscultation and percussion. No rales, rhonchi or wheezes noted. No increased work of breathing, no retractions or nasal flaring. Abdomen/GI: Soft, non-tender, with normal bowel sounds. No distension or tympany. No guarding or rebound. No evidence of tenderness throughout. Skin: Warm, dry with normal turgor. Normal color with no rashes, no lesions, and no evidence of cellulitis. MS/ Extremity: Pulses equal, no cyanosis. Neurovascular intact. Full, normal range of motion. Neuro: Awake and alert, GCS 15, oriented to person, place, time, and situation. Cranial nerves II-XII grossly intact. Motor strength 5/5 in all extremities. Sensory grossly intact. Cerebellar exam normal. Normal gait. Vital Signs: 16:42 BP 120 / 77; Pulse 98; Resp 18; Temp 97.6(TE); Pulse Ox 99% on R/A; Weight 83.91 kg; ld1 Height 5 ft. 1 in. (154.94 cm); Pain 0/10; 20:55 BP 122 / 79; Pulse 86; Resp 18; Pulse Ox 100% on R/A; ld1 16:42 Body Mass Index 34.96 (83.91 kg, 154.94 cm) ld1 MDM: 20:27 Differential diagnosis: UTI, dehydration, viral illness. [facility] 20:27 Data reviewed: vital signs, nurses notes, lab test result(s). Data interpreted: Pulse 7 oximetry: is 99 %. Interpretation: normal. Counseling: I had a detailed discussion with the patient and/or guardian regarding: the historical points, exam findings, and any diagnostic results supporting the discharge/admit diagnosis, to return to the emergency department if symptoms worsen or persist or if there are any questions or concerns that arise at home. Response to treatment: the patient's symptoms have markedly improved after treatment. ED course: informed to the patient that her urine was clean and her lab results were unremarkable. Advised her to inform her PCP that she had to stop taking the ampicillin due to diarrhea and weakness. The patient reported feeling much better after the fluid administration. Informed her that if she developed any new concerning symptoms, she may return to the ER for further eval.. 20:30 Patient medically screened. [facility] 08/12 17:11 Order name: SARS-COV-2 RT PCR (Document "Date of Onset" if Symptomatic) [facility] 08/12 17:11 Order name: Flu [facility] 08/12 17:11 Order name: CBC with Diff; Complete Time: 18:48 [facility] 08/12 17:11 Order name: CMP; Complete Time: 18:48 [facility] 08/12 17:11 Order name: Lipase; Complete Time: 18:48 [facility] 08/12 17:11 Order name: Urine Microscopic Only; Complete Time: 18:48 [facility] 08/12 17:11 Order name: IV Saline Lock; Complete Time: 19:50 [facility] 08/12 17:11 Order name: Labs collected and sent; Complete Time: 19:50 [facility] 08/12 17:11 Order name: Urine Dipstick-Ancillary (obtain specimen); Complete Time: 18:25 [facility] 08/12 17:11 Order name: Urine Test (obtain specimen); Complete Time: 18:25 [facility] 08/12 18:22 Order name: Urine Dipstick-Ancillary; Complete Time: 18:25 EDMS Administered Medications: 19:50 Drug: NS 0.9% 1000 ml Route: IV; Rate: 1 bolus; Site: right antecubital; Disposition Summary: 08/12/21 20:30 Discharge Ordered Location: Home [facility] Problem: new [facility] Symptoms: have improved [facility] Condition: Stable [facility] Diagnosis - Dehydration 7 - Diarrhea, unspecified [facility] Followup: [facility] - With: Private Physician - When: Tomorrow - Reason: Recheck today's complaints Discharge Instructions: - Discharge Summary Sheet [facility] - Dehydration, Adult 7 - Diarrhea, Adult 7 Forms: - Medication Reconciliation Form [facility] - Thank You Letter [facility] Signatures: Dispatcher [facility] Angeles Casey RN RN Chrissie Santamaria RN RN ld1 Queenie Pichardo, ELECTRIC BLASTING CAP ASSEMBLER ELECTRIC BLASTING CAP ASSEMBLER jh7
--- NOTE | 2021-08-12 20:30 | ER ---
Nurse's Notes [facility] Name: Goyo Solorio Age: 36 yrs Sex: Female : 1985 Arrival Date: 08/12/2021 Time: 16:16 Bed Waiting Private MD: Diagnosis: Dehydration;Diarrhea, unspecified Presentation: 08/12 16:42 Chief complaint: Patient states: Previous UTI - on ampicilllin. Pt reports diarrhea, ld1 dizziness. Coronavirus screen: At this time, the client does not indicate any symptoms associated with coronavirus-19. Ebola Screen: No symptoms or risks identified at this time. Initial Sepsis Screen: Does the patient meet any 2 criteria? No. Patient's initial sepsis screen is negative. Does the patient have a suspected source of infection? No. Patient's initial sepsis screen is negative. Risk Assessment: Do you want to hurt yourself or someone else? Patient reports no desire to harm self or others. Onset of symptoms was August 12, 2021. 16:42 Method Of Arrival: Ambulatory ld1 16:42 Acuity: EUGENIO 3 ld1 Triage Assessment: 16:43 General: Appears in no apparent distress. comfortable, Behavior is calm, cooperative, ld1 appropriate for age. Pain: Denies pain. EENT: No signs and/or symptoms were reported regarding the EENT system. Neuro: Level of Consciousness is awake, alert, obeys commands, Oriented to person, place, time, situation. Cardiovascular: Capillary refill < 3 seconds Patient's skin is warm and dry. Respiratory: Airway is patent Respiratory effort is even, unlabored. GI: Abdomen is round non-distended. : No signs and/or symptoms were reported regarding the genitourinary system. Derm: No signs and/or symptoms reported regarding the dermatologic system. Musculoskeletal: No signs and/or symptoms reported regarding the musculoskeletal system. 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 - Social history:: Smoking status: Patient reports the use of cigarette tobacco products, denies chronic smoking, but will smoke occasionally, Patient uses alcohol, on a daily basis. Screenin:55 Abuse screen: Denies threats or abuse. Denies injuries from another. Nutritional ld1 screening: No deficits noted. Tuberculosis screening: No symptoms or risk factors identified. Fall Risk None identified. Assessment: 20:55 Reassessment: See triage assessment. ld1 Vital Signs: 16:42 BP 120 / 77; Pulse 98; Resp 18; Temp 97.6(TE); Pulse Ox 99% on R/A; Weight 83.91 kg; ld1 Height 5 ft. 1 in. (154.94 cm); Pain 0/10; 20:55 BP 122 / 79; Pulse 86; Resp 18; Pulse Ox 100% on R/A; ld1 16:42 Body Mass Index 34.96 (83.91 kg, 154.94 cm) ld1 ED Course: 16:16 Patient arrived in ED. as 16:43 Triage completed. ld1 16:43 Arm band placed on right wrist. 1 17:10 [facility] 17:10 Simba Duenas MD is Attending Physician. [facility] 20:55 Patient has correct armband on for positive identification. Bed in low position. Call ld1 light in reach. Side rails up X2. turkey cleaner on. Pulse ox on. NIBP on. Door closed. Noise minimized. 20:55 No provider procedures requiring assistance completed. IV discontinued, intact, ld1 bleeding controlled, No redness/swelling at site. Administered Medications: 19:50 Drug: NS 0.9% 1000 ml Route: IV; Rate: 1 bolus; Site: right antecubital; cg Medication: 20:55 VIS not applicable for this client. ld1 Outcome: 20:30 Discharge ordered by . [facility] 20:55 Discharged to home ambulatory. ld1 20:55 Condition: stable 20:55 Discharge instructions given to patient, Instructed on discharge instructions, follow up and referral plans. Demonstrated understanding of instructions, follow-up care. 20:56 Patient left the ED. ld1 Signatures: Dayan Mack Cindy, RN RN cg Chrissie Santamaria RN RN ld1 Queenie Pichardo FNP [place] [id number]
[2021-08-12 22:17] VITALS: TEMP 97.6
[2021-08-12 22:18] VITALS: BP 122/79; O2SAT 100
== END 2021-08-12 20:56 | disposition home or self-care (01) ==
LOC: ER 16:15
DX: E86.0 Dehydration (principal); R19.7 Diarrhea, unspecified; F17.210 Nicotine dependence, cigarettes, uncomplicated
CPT/HCPCS: 85025; 36415; 83690; 80053; J7030; 81003; 81015

== ENCOUNTER 2021-09-26 02:48 | Emergency (ER) | payer OTHER ==
--- OUTSIDE RECORDS SUMMARY | 2021-09-26 02:52 | XMS REPORT | Continuity of Care Document ---
:1985 Author Organization [facility] t Address [address] [place] [address] Care Team Providers Name Role Phone JARED PENNINGTON Primary Care Physician Unavailable KHANH FUENTES Attending Clinician Unavailable JARED PENNINGTON Attending Clinician Unavailable MARLYN JACOBSEN Attending Clinician Unavailable Marlyn Nunn Attending Clinician Jared Torre Attending Clinician AkinBrittney Mata Attending Clinician [phone] Dany Knox Attending Clinician Doctor Unassigned, [place] Attending Clinician Unavailable Paris Cordova Attending Clinician 1, [facility] Room Attending Clinician Unavailable Tino HERRERA, Mike Attending Clinician Unavailable Payers Payer Name Policy Type Policy Number Effective Date Expiration Date Critical access hospital [id number] 2019 CHOICE MEDICAID 00:00:00 Problems Condition Condition Condition Status Onset Resolution Last Treating Co mments Source Name Details Category Date Date Treatment Clinician Date Urinary Urinary Disease Active Univers tract tract 7-07 [place] without 00 Medical hematuria, hematuria, Br anch site site unspecifie unspecifie d d Vaginal Vaginal Disease Active Univers discharge discharge 6-23 ity of 00:: Medical Branch Dizziness Dizziness Disease Active Uni vers 6-08 ity of 00:: Medical Branch Diverticul Diverticul Disease Active U chey osis osis 5-20 ity of 00:: Medical Branch Screen for Screen for Disease Active U chey STD STD 5-04 ity of (sexually (sexually [place] transmitte transmitte 00 Me dical d disease) d disease) Br anch Left arm Left arm Disease Active Unive rs pain pain 4-22 ity of 00:: Medical Branch Herpes Herpes Disease Active Univers zoster zoster 4-20 ity of without without 00:00: [place] complicati complicati 00 Me dical on on Branch 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 4-20 ity of 00:: Medical Branch History of History of Disease Active U chey anxiety anxiety 2-23 ity of 00:: Medical Branch BMI BMI Disease Active Univers 32.0-32.9, 32.0-32.9, 2-23 it y of adult adult 00:00: Medical Branch Former Former Disease Active Univers smoker smoker 2-23 ity of 00:: Medical Branch Chest Chest Disease Active Univers pain, pain, 8-12 ity of atypical atypical 00:: Medical Branch Obesity Obesity Disease Active Univers (BMI (BMI 8-22 ity of 30-39.9) 30-39.9) 00:: Medical Branch Absence of Absence of Disease Active U chey menstruati menstruati 8-22 it y of on on 00:: Medical Branch Papanicola Papanicola Disease Active U nivers [...] Allergie 7-15 Clear s 00:00: [place] 00 [facility] No Known DA Active U 2012-02 [facility] Allergie 0-06 Clear s 00:00: [place] 00 [facility] NO KNOWN Drug Active Univers ALLERGIE Class ity of S [facility] Social History Social Habit Start Date Stop Date Quantity Comments Source Exposure to 2021-08-03 2021-08-13 Not sure [facility] SARS-CoV-2 (event) 00:00:00 15:08:00 [facility] Alcohol intake 2021-08-13 2021-08-13 Ex-drinker University 00:00:00 00:00:00 (finding) [facility] Education 2020-11-25 2020-11-25 13 University of 00:00:00 00:00:00 [facility] History SDOH 2020-04-01 2020-04-01 99 University o f Alcohol Binge 00:00:00 00:00:00 [facility] Branch Cigarettes smoked 2020-04-01 2020-04-01 Univers ity of current (pack per 00:00:00 00:00:00 ) - Reported Branch Cigarette 2020-04-01 2020-04-01 University of pack-years 00:00:00 00:00:00 [facility] Tobacco use and 2020-04-01 2020-04-01 Smokeless Universit y of exposure 00:00:00 00:00:00 tobacco non-user [facility] dical Branch Tobacco Comment 2020-04-01 2020-04-01 smokes 4 x Universit y of 00:00:00 00:00:00 socially - [facility] stopped smoking Branch 2 weeks ago Alcohol Comment 2020-04-01 2020-04-01 socially Universit y of 00:00:00 00:00:00 [facility] History SDOH 2020-04-01 2020-04-01 99 [place] o f Alcohol Frequency 00:00:00 00:00:00 [facility] edical Branch History SDOH 2020-04-01 2020-04-01 99 [place] o f Alcohol Std Drinks 00:00:00 00:00:00 [facility] History of tobacco 2016-08-28 Cigarette Smoker University of use 00:00:00 [facility] Sex Ass[birth year] At [birth year] Universit y of 00:00:00 00:00:00 [facility] Smoking Status Start Date Stop Date Source Ex-smoker 2020-04-01 00:00:00 2020-04-01 00:00:00 [facility] Medications Ordered Filled Start Stop Current Ordering Indication Dosage Frequency Signature Comments Components Source Medication Medication Date Date Medication? Clinician (SIG) Name Name ampicillin 2021- Yes [id number] 500mg Take 1 Univers 500 mg 7-15 07-26 capsule by ity of capsule 00:00: 04:59 mouth 4 [place] 00 :00 ([facility]) Medical times Branch daily for 10 days. ampicillin 2021- Yes [id number] 500mg Take 1 Univers 500 mg 7-15 07-26 capsule by ity of capsule 00:00: 04:59 mouth 4 [place] 00 :00 ([facility]) Medical times Branch daily for 10 days. ampicillin 2021- Yes [id number] 500mg Take 1 Univers 500 mg 7-15 07-26 capsule by ity of capsule 00:00: 04:59 mouth 4 [place] 00 :00 ([facility]) Medical times Branch daily for 10 days. citalopram Yes [id number] 10mg Take 1 U nivers 10 mg 7-13 tablet by ity of tablet 00:00: mouth in [place] 00 the Medical morning. Branch citalopram Yes [id number] 10mg Take 1 U nivers 10 mg 7-13 tablet by ity of tablet 00:00: mouth in [place] 00 the Medical morning. Branch citalopram Yes [id number] 10mg Take 1 U nivers 10 mg 7-13 tablet by ity of tablet 00:00: mouth in [place] 00 the Medical morning. Branch citalopram Yes [id number] 10mg Take 1 U nivers 10 mg 7-13 tablet by ity of tablet 00:00: mouth in [place] 00 the Medical morning. Branch citalopram 2021-0 Yes [id number] 10mg Take 1 U nivers 10 mg 7-13 tablet by ity of tablet 00:00: mouth in [place] 00 the Medical morning. Branch ibuprofen 2021-0 Yes [id number] 600mg Take 1 Univers 600 mg 6-13 tablet by ity of tablet 00:00: mouth [place] 00 every 6 Medical (six) Branch hours as needed for Pain (scale 4-6). ibuprofen 2021-0 Yes [id number] 600mg Take 1 Univers 600 mg 6-13 tablet by ity of tablet 00:00: mouth [place] 00 every 6 Medical (six) Branch hours as needed for Pain (scale 4-6). ibuprofen 2021-0 Yes [id number] 600mg Take 1 Univers 600 mg 6-13 tablet by ity of tablet 00:00: mouth [place] 00 every 6 Medical (six) Branch hours as needed for Pain (scale 4-6). ibuprofen 2021-0 Yes [id number] 600mg Take 1 Univers 600 mg 6-13 tablet by ity of tablet 00:00: mouth [place] 00 every 6 Medical (six) Branch hours as needed for Pain (scale 4-6). ibuprofen 2021-0 Yes [id number] 600mg Take 1 Univers 600 mg 6-13 tablet by ity of tablet 00:00: mouth [place] 00 every 6 Medical (six) Branch hours as needed for Pain (scale 4-6). busPIRone 2021-0 Yes 10mg Take 10 mg Un rand 10 mg 6-08 by mouth ity of tablet 17:04: as needed. [address] Branch busPIRone 2021-0 Yes 10mg Take 10 mg Un rand 10 mg 6-08 by mouth ity of tablet 17:04: as needed. [address] Branch busPIRone 2021-0 Yes 10mg Take 10 mg Un rand 10 mg 6-08 by mouth ity of tablet 17:04: as needed. [address] Branch busPIRone 2021-0 Yes 10mg Take 10 mg Un rand 10 mg 6-08 by mouth ity of tablet 17:04: as needed. [address] busPIRone 2021-0 Yes 10mg Take 10 mg Un rand 10 mg 6-08 by mouth ity of tablet 17:04: as needed. [address] Immunizations Ordered Filled Immunization Date Status Comments [facility] e Immunization Name Name [facility] 2020-09-15 Completed University of 00:00:00 [facility] 2020-09-15 Completed [facility] Completed University of 00:00:00 [facility] 2020-09-15 Completed University of 00:00:00 [facility] 2020-09-15 Completed University of 00:00:00 [facility] 2017-02-09 Completed [facility] Com[facility] 2017-02-09 Completed [facility] 2017-02-09 Completed [facility] 00:[facility] 2017-02-09 Completed University of 00:00:00 [facility] 2007-02-07 Completed University of 00:00:00 [facility] 2007-02-07 Completed [facility] 00:00:00 [facility]-07 Completed [facility] 00:[facility] 2007-02-07 Completed University of 00:00:00 [facility] 2007-02-07 Completed University of 00:00:00 [facility] Procedures This patient has no known procedures. Encounters Start End Encounter Admission Attending Care Care Encounter Source Date/Time Date/Time Type Type Clinicians Facility Department ID 2021-10-08 2021-10-08 Outpatient GINA [facility] [id number] Univers 10:30:00 10:30:00 KHANH [id number] [facility] [place] 2021-09-28 2021-09-28 Outpatient Jocelyn PENNINGTON [facility] [id number] Univers 11:00:00 11:00:00 JARED [facility] [place] 2021-09-24 2021-09-24 Outpatient Jocelyn UFENTES [facility] [id number] Univers 13:45:00 13:45:00 KHANH [id number] [facility] [place] 2021-09-24 2021-09-24 Outpatient Jocelyn FUENTES [facility] [id number] Univers 13:45:00 13:45:00 KHANH [facility] [place] 2021-09-18 2021-09-18 [facility] [id number] Univers 09:30:00 09:30:00 MARLYN [id number] [facility] [place] 2021-09-18 2021-09-18 [facility] [id number] Univers 09:30:00 09:30:00 MARLYN [facility] [place] 2021-09-01 2021-09-01 Out[facility] [id number] Univers 15:30:00 15:30:00 JARED [facility] [place] 2021-08-28 2021-08-28 [facility] [id number] Univers 00:00:00 00:00:00 Secure Msg Marlyn HEALTH [id number] ity [facility] [id number] Jaison as EMILIANO?BLEA [phone] [address] OFFICE [facility] 2021-08-24 2021-08-24 Abstract [facility] [id number] Univers 00:00:00 00:00:00 Jared HEALTH [id number] it y [facility] 4.2.7.2.686 Jaison as EMILIANO?BLEA [phone] [address] OFFICE [facility] 2021-08-21 2021-08-21 Telephone [facility] [id number] Univers 00:00:00 00:00:00 Brittney C DIGITAL MEDIA DIRECTOR [id number] ity of [facility] 4.2.7.2.686 Jaison as MATERNAL [id number] [facility] ical & CHILD [address] [place] [address] 2021-08-19 2021-08-19 Refalesha [facility] [id number] Univers 00:00:00 00:00:00 Dany R DIGITAL MEDIA DIRECTOR [id number] ity of [facility] 4.2.7.2.686 Jaison as MATERNAL [phone] Med ical & CHILD 107 [facility] 2021-08-19 2021-08-19 Refill Doctor [facility] [id number] Univers 00:00:00 00:00:00 Unassigned, HEALTH [id number] ity of [place] 4.2.7.2.686 Jaison as EMILIANO?BLEA [phone] Pa dical KN [address] [place] MEDICAL OFFICE BUILDING 2020-08-28 2020-08-28 Hospital [facility] [id number] 15:21:38 23:59:00 Encounter [facility] [id number] [place] 4.2.7.2.686 [place] [id number] 2020-08-28 2020-08-28 Urgent [facility] [id number] 14:13:24 15:23:[address] [facility] [id number] [place] 4.2.7.2.686 Professio [id number] nal [address] 2020-08-27 2020-08-27 Routine [facility] [id number] 10:01:23 11:16:37 Grisnda R DIGITAL MEDIA DIRECTOR [id number] Visit [facility] 4.2.7.2.686 MATERNAL [id number] & CHILD 107 [facility] 2020-08-27 2020-08-27 Orders Doctor KEARA 1.2.840.114 [id number] 00:00:00 00:00:00 Only Unassigned, CASI [id number] [place] [facility] 4.2.7.2.686 [id number] 2020-08-19 2020-08-19 Envelope Machine Operator 1, [facility] UNIVERSIT 1.2.840.11 [id number] 14:50:51 15:35:51 Visit [facility] Room Y HEALTH [id number] CLINICS 4.2.7.2.686 [id number] 2020-08-06 2020-08-06 Nurse KEARA Jiménez [id number] 00:00:00 00:00:00 Triage Mike LANCE [id number] [facility] 4.2.7.2.686 [id number] 2019-08-22 2019-08-24 Inpatient HCAJADE LY [id number] [facility] 08:59:00 07:24:30 33 [facility] Results Test Description Test Time Test Comments Results Result Comments Source SARS-CoV-2 (COVID-19), RT-PCR/TMA 2021-02-25 15:19:39 Test Item Value Reference Range Interpretation Comme nts SARS-CoV-2 INTERPRETATION NEGATIVE SEE NOTE S ARS-CoV-2 RNA NOT (test code = 66740) DETECTED Negative results do not preclude SARS-C oV-2 infection and should notb e used as the sole basis for patient management deci sions. Negativeresults must be combined with c linical observations, p atient history,and epi demiological information. Op timum specimen types and timin gfor peak viral levels during i nfections caused by SARS-CoV-2 h ave notbeen determined. Col lection of multiple specim ens or types ofspecimens may be necessary to detect virus. I mproper specimencollect ion and handling, seque nce variability under primers/p robes,or organism presen t below the limit of detect ion may lead to falsenegative r esults. Positive and negative pr edictive values oftesting are h ighly dependent on prevalence. False negative testresults are more likely when prevalence is high. SOURCE (test code = 18756) NASOPHARYNGEAL Note: Methodology is Dannie Stefani Real-Time RT-PCR. The expected result or reference range is NEGATI VE (Not Detected). For more information regarding COVID -19 testing to include clinica linformation, methodology det ail, intended use, FDA author ization andrecommended fact sheets for patients or a ltare providers, see [employer] Announcement: S ARS-CoV-2 (COVID-19) by N AAT at URL below (note,fact shee ts are provided by method given in report:https:// www.Arisoko.Contests4Causes/ clinicians/dominique nt-communication s/ Alternativel y, see downloadable PD F fact sheet at:https://www. cpllabs.com/COVI D-19-RT-PCR UNL ESS OTHERWISE INDICATED, ALL TESTING PERFORMED [facility]. [address] [place] [address] 4 INDUSTRIAL SERVICER: OCTAVIANO GUZMAN M.D. ELISE Banks [id number] CAP ACCREDITATION N O. [id number] COMPREHENSIVE METABOLIC [id number] 10:12:00 Test Item Value Reference Range Interpretation [...] 20-125 N TOTAL (test code = ALKP) [id number] 10:12:00 Test Item Value Reference Range Interpretation Comments TROPONIN-I < 0.015 ng/mL 0.000-0.045 N Negative: <= 0.045 (test code = Positive: >= 0. 046 TROPI) Correlation wit h serial results, other cardiac markers andclin ical findings is necessary to determine the clinicalsig nificance of this result. Re sults using different metho dologies should not be c omparedto one another as tea titative results may jett y by method. COMPREHENSIVE METABOLIC [id number] 10:11:00 Test Item Value Reference Range Interpretation [...] TOTAL (test IUnit/L 20-125 code = ALKP) [id number] 10:11:00 Test Item Value Reference Range Interpretation Comments TROPONIN-I < 0.015 ng/mL 0.000-0.045 N Negative: <= 0 .045 Positive: (test code = >= 0.046 Correl ation with TROPI) serial results, other cardiac markers andclinical findings is nec essary to determine the clinicalsignifi cance of this result. Results using different metho dologies should not be c omparedto one another as tea titative results may jett y by method. PROTHROMBIN [id number] 09:59:00 Test Item Value Reference Range Interpretation Comments PROTHROMBIN TIME 14.4 SECONDS 9.3-12.9 H PATIENT (test code = PTP) INTERNATIONAL NORMAL 1.3 0.8-1.2 H TARGET INR BY RATIO (test code = INDICATIO N Indication INR) INR1. Prophylax is of venous thrombos is 2.0 - 3.0 (orthoped ic surgery), Proph ylaxis of venous throm bosis (other than hig h-risk surgery), Treat ment of Deep Vein Thrombosis/Pulm onary Embolism, Preve ntion of systemic emb olism - Tissue heart va lves, Acute Myocardia l Infarction (to prevent systemic emboli sm), Valvular heart disease, Atrial Fibrillation, Bileaflet mecha nical valve in aortic position.2. Mec hanical prosthetic valv es (high risk), 2. 5 - 3.5 Presence of Lup us Anticoagulant o r Antiphospholipi d Antibodies, Pre vention of systemic emb olism - Acute Myocardia l Infarction (to prevent recurrent infar ct). [id number] 09:59:00 Test Item Value Reference Range Interpretation [...] TESTS AND APPROPRIATECLIN ICAL EUALUATIONS. CBC W/AUTO [id number] 09:56:00 Test Item Value Reference Range Interpretation [...] MANUAL DIFF REQUIRED (test NO code = IFF) - XR CHEST 1 [id number] 09:56:00 FAX: [place] Cain MD [phone] [place]: [address]: PRE Name: [facility]AV[facility]DRA [facility]N [facility] : 1985 Age/S: 34/F [address] [place] [address] Unit #: [id number] [place]: [place] [address] Phys: [place] Cain MD Acct: [id number] Dis Date: Status: PRE ER PHONE #: [phone] Exam Date: 08/22/2019 1003 FAX #: [phone] Reason: Chest Pain EXAMS: CPT CODE: [id number] XR CHEST 1 V 31131 PROCEDURE: CHEST SINGLE VIEW INDICATION: Chest Pain COMPARISON: There are no previous relevant studies available for correlation. FINDINGS: The lungs are clear. No pleural abnormality. The cardiomediastinal silhouette is normal forprojection. The bony thorax is intact. IMPRESSION: Normal radiograph. SL: [id number] Electronica lly Signed by Jesse Sousa on 08/22/2019 at 0956 Reported and signed by: Samson Sousa M.D. CC: Dallas Cain MD Technologist: RT Maddi(R) Trnscrd Date/Time/By: 08/22/2019 (0956) : By: ZaraL Orig Print D/T: S: 08/22/2019 (1001) PAGE 1 Signed Report
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
[2021-09-26 08:35] VITALS: TEMP 97.4; O2SAT 99
[2021-09-26 08:54] VITALS: BP 102/74
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
== END 2021-09-26 08:25 | disposition home or self-care (01) ==
LOC: ER 02:48
DX: S00.83XA Contusion of other part of head, initial encounter (principal); S50.811A Abrasion of right forearm, initial encounter; M25.571 Pain in right ankle and joints of right foot; F17.210 Nicotine dependence, cigarettes, uncomplicated
CPT/HCPCS: 70250; 99283

== ENCOUNTER 2022-02-05 12:41 | Emergency (ER) | payer OTHER ==
--- OUTSIDE RECORDS SUMMARY | 2022-02-05 12:47 | XMS REPORT | Continuity of Care Document ---
:1985 Author Organization [facility] [place] [facility] t Address [address] [place] [address] Care Team Providers Name Role Phone JARED COLLADO Primary Care Physician Unavailable ANALISA MERRITT Attending Clinician Unavailable DEE HUFFMAN Attending Clinician Unavailable Pgy3 Attending Clinician Unavailable Dee Huffman MD Attending Clinician Doctor Unassigned, Manzano Attending Clinician Unavailable Deja Álvarez CNM Attending Clinician DEJA ÁLVAREZ Attending Clinician Unavailable Provider, Ang-Rmchp Temp Attending Clinician Unavailable JARED COLLADO Attending Clinician Unavailable KHANH FUENTES Attending Clinician Unavailable TYRESE BACA Attending Clinician Unavailable Tyrese Nunn Attending Clinician Jared Torre Attending Clinician Analisa Field Attending Clinician [phone] Jv CARVALHOP, Nialla R Attending Clinician CARIAS, NIALLA R Attending Clinician Unavailable RAMÓN HUDSON Attending Clinician Unavailable Becca QUINNC, Ramón Attending Clinician Pob, Adc Lab Main Attending Clinician Unavailable Alfred COHEN, Shanita Call Attending Clinician [phone] Ramiro HERRERA, Janae Sunshine Attending Clinician Unavailable Manuel STANFORD Attending Clinician Unavailable Hien PACManuel Attending Clinician Lab, Ang - Db Attending Clinician Unavailable Shanon Beckham MD Attending Clinician Octavia ABSTRACT SEARCHER, Oumar Attending Clinician OUMAR DUDLEY Attending Clinician Unavailable July Pitt LVN Attending Clinician Unavailable MARIA ISABEL MARSHALL Attending Clinician Unavailable Parviz ABSTRACT SEARCHER, Maria Isable Attending Clinician GABRIELLE MARTÍNEZ Attending Clinician Unavailable Gabrielle Dillard Attending Clinician PAMELA PRESLEY Attending Clinician Unavailable Pamela Keenan Attending Clinician GERTRUDE MILLAN Attending Clinician Unavailable MINOO FLORES Attending Clinician Unavailable JAG MAGANA Attending Clinician Unavailable Jag Magana DO Attending Clinician JOB KASPER Attending Clinician Unavailable Job Kasper MD Attending Clinician JIMENA MAYO Attending Clinician Unavailable Carine Smith MD Attending Clinician NORA SANCHEZ Attending Clinician Unavailable Nora Alcazar Attending Clinician Leidy Duran RN Attending Clinician Unavailable [facility] Attending Clinician Unavailable Paris Cordova Attending Clinician Toby Richards MD Attending Clinician TOBY RICHARDS Attending Clinician Unavailable 1, [facility] Room Attending Clinician Unavailable Arcelia Diego MD, Daniel Attending Clinician [phone] Tino HERRERA, Mike Attending Clinician Unavailable Ultrasound, Ang-Mfm Attending Clinician Unavailable Jose L LEES, Jordan F Attending Clinician Julio Da Silva APN Attending Clinician Radha HERRERA, Lynn Lemus Attending Clinician Unavailable Omero LEES, Tracey Attending Clinician Vilma LEES, Yoshi Attending Clinician Sandra LEES, Minoo Lemus Attending Clinician Only, Adc Test Attending Clinician Unavailable Brittnee LEES, Kevan Attending Clinician Pob1, [facility] Attending Clinician Unavailable MELODY GAO Attending Clinician Unavailable Provider, [facility] Attending Clinician Unavailable Corazon ABSTRACT SEARCHER, Kvng Banks Attending Clinician Nurse, s Urgent Care Attending Clinician Unavailable Unknown, Attending Attending Clinician Unavailable UNKNOWN, ATTENDING Attending Clinician Unavailable Miguel ABSTRACT SEARCHER, Simba Attending Clinician Manuel STANFORD Admitting Clinician Unavailable GABRIELLE MARTÍNEZ Admitting Clinician Unavailable JIMENA MAYO Admitting Clinician Unavailable Payers Payer Name Policy Type Policy Number Effective Date Expiration Date [facility] [id number] 2019 [facility] MEDICAID 00:00:00 [facility] [id number] 2016 HEALTH 00:00:00 MEDICAID PENDING PENDING 2019 00:00:00 Problems Condition Condition Condition Status Onset Resolution Last Treating Co mments Source Name Details Category Date Date Treatment Clinician Date Urinary Urinary Disease Active Univers tract tract 7-07 [place] hematuria, hematuria, Br anch site site unspecifie unspecifie d d Vaginal Vaginal Disease Active Univers discharge discharge 6-23 ity of 00:00: [address] Dizziness Dizziness Disease Active Uni vers 6-08 ity of 00:00: [address] Diverticul Diverticul Disease Active U nivers osis osis 5-20 ity of 00:00: [place] [facility] Screen for Screen for Disease Active U nivers STD STD 5-04 ity of (sexually ([place] transmit[place] transmitte 00 Me dical d disease) d disease) Br anch Left arm Left arm Disease Active Unive rs pain pain 4-22 ity of 00:: [place] [facility] Herpes Herpes Disease Active Univers zoster zoster 4-20 ity of without without 00:00: [place] complicati complicati 00 Me dical on on Branch 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 4-20 ity of 00:: [place] [facility] History of History of Disease Active U nivers anxiety anxiety 2-23 ity of 00:: [place] [facility] BMI BMI Disease Active Univers 32.0-32.9, 32.0-32.9, 2-23 it y of adult adult 00:00: [place] [facility] Former Former Disease Active Univers smoker smoker 2-23 ity of 00:: [place] [facility] Chest Chest Disease Active Univers pain, pain, 8-12 ity of atypical atypical 00:: [place] [facility] Obesity Obesity Disease Active Univers (BMI (BMI 8-22 ity of 30-39.9) 30-39.9) 00:00: [place] [facility] Absence of Absence of Disease Active U nivers menstruati menstruati 8-22 it y of on on 00:: [place] [facility] Papanicola Papanicola Disease Active U nivers ou smear ou smear 7-24 ity of of cervix of cervix 00:00: a s with low with low 00 Medica l 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) Allergies, Adverse Reactions, Alerts Allergy Allergy Status Severity Reaction(s) Onset Inactive Treating Comm ents Source Name Type Date Date Clinician No Known DA Active U [facility] Allergie 7-15 Clear s 00:00: [place] 00 [facility] No Known DA Active U 2012-02 [facility] Allergie 0-06 Clear s 00:00: [place] 00 [facility] NO KNOWN Drug Active Univers ALLERGIE Class ity of S [facility] Social History Social Habit Start Date Stop Date Quantity Comments Source Exposure to 2021-12-29 2022-01-08 Not sure University of SARS-CoV-2 (event) 00:00:00 13:58:00 [facility] Cigarettes smoked 2022-01-08 2022-01-08 Univers ity of current (pack per 00:00:00 00:00:00 [facility] ) - Reported Branch Cigarette 2022-01-08 2022-01-08 University of pack-years 00:00:00 00:00:00 [facility] Tobacco use and 2022-01-08 2022-01-08 Smokeless Universit y of exposure 00:00:00 00:00:00 tobacco non-user [facility] dical [place] Alcohol intake 2022-01-08 2022-01-08 Ex-drinker [facility] 00:00:00 00:00:00 (finding) [facility] Tobacco Comment 2022-01-08 2022-01-08 smokes 4 x Universit y of 00:00:00 00:00:00 [facility] stopped [facility] Branch 2 weeks ago Education 2020-11-25 2020-11-25 13 University of 00:00:00 00:00:00 [facility] Alcohol Comment 2020-04-01 2020-04-01 socially Universit y of 00:00:00 00:00:00 [facility] History SDOH 2020-04-01 2020-04-01 99 University o f Alcohol [facility]:00[facility] 2020-04-01 2020-04-01 99 University o f Alcohol Std Drinks 00:00:00 00:00:00 [facility] History SDOH 2020-04-01 2020-04-01 99 University o f Alcohol Binge 00:00:00 00:00:00 [facility] History of tobacco 2016-08-28 Cigarette Smoker University of use 00:00:00 [facility] Sex [birth year] At [birth year] Universit y of 00:00:00 00:00:00 [facility] Smoking Status Start Date Stop Date Source Ex-smoker 2022-01-08 00:00:00 2022-01-08 00:00:00 [facility] ty [facility] [place] [facility] Medications Ordered Filled Start Stop Current Ordering Indication Dosage Frequency Signature Comments Components Source Medication Medication Date Date Medication? Clinician (SIG) Name Name ampicillin 2021-02 Yes [id number] 500mg Take 1 Univers 500 mg 2-01 capsule by ity of capsule 00:00: mouth [place] 00 every 6 Medical (six) Branch hours. ampicillin 2021-02 Yes [id number] 500mg Take 1 Univers 500 mg 2-01 capsule by ity of capsule 00:00: mouth [place] 00 every 6 Medical (six) Branch hours. ampicillin 2021-02 Yes [id number] 500mg Take 1 Univers 500 mg 2-01 capsule by ity of capsule 00:00: mouth [place] 00 every 6 Medical (six) Branch hours. ampicillin 2021-02 Yes [id number] 500mg Take 1 Univers 500 mg 2-01 capsule by ity of capsule 00:00: mouth [place] 00 every 6 Medical (six) Branch hours. ampicillin 2021-02 Yes [id number] 500mg Take 1 Univers 500 mg 2-01 capsule by ity of capsule 00:00: mouth [place] 00 every 6 Medical (six) Branch hours. ampicillin 2021-02- Yes [id number] 500mg Take 1 Univers 500 mg 1-14 11-25 capsule by ity of capsule 00:00: 05:59 mouth [place] 00 :00 every 6 Medical (six) Branch hours for 10 days. norethindro 2021-02 Yes [id number] 1{tbl} Take 1 Univers ne 0.35 mg 1-11 tablet by ity of tablet 00:00: mouth in [place] 00 the Medical morning. Branch norethindro 2021-02 Yes [id number] 1{tbl} Take 1 Univers ne 0.35 mg 1-11 tablet by ity of tablet 00:00: mouth in [place] 00 the Medical morning. Branch norethindro 2021-02 Yes [id number] 1{tbl} Take 1 Univers ne 0.35 mg 1-11 tablet by ity of tablet 00:00: mouth in [place] 00 the Medical morning. Branch norethindro 2021-02 Yes [id number] 1{tbl} Take 1 Univers ne 0.35 mg 1-11 tablet by ity of tablet 00:00: mouth in [place] 00 the Medical morning. Branch norethindro 2021-02 Yes [id number] 1{tbl} Take 1 Univers ne 0.35 mg 1-11 tablet by ity of tablet 00:00: mouth in [place] 00 the Medical morning. Branch wenndro 2021-02 Yes [id number] 1{tbl} Take 1 Univers ne 0.35 mg 1-11 tablet by ity of tablet 00:00: mouth in [place] 00 the Medical morning. Branch wenndro 2021-02 Yes [id number] 1{tbl} Take 1 Univers ne 0.35 mg 1-11 tablet by ity of tablet 00:00: mouth in [place] 00 the Medical morning. Branch norethindro 2021-02 Yes [id number] 1{tbl} Take 1 Univers ne 0.35 mg 1-11 tablet by ity of tablet 00:00: mouth in [place] 00 the Medical morning. Branch wenndro 2021-02 Yes [id number] 1{tbl} Take 1 Univers ne 0.35 mg 1-11 tablet by ity of tablet 00:00: mouth in [place] 00 the Medical morning. Branch wenndro 2021-02 Yes [id number] 1{tbl} Take 1 Univers ne 0.35 mg 1-11 tablet by ity of tablet 00:00: mouth in [place] 00 the Medical morning. Branch wenndro 2021-02 Yes [id number] 1{tbl} Take 1 Univers ne 0.35 mg 1-11 tablet by ity of tablet 00:00: mouth in [place] 00 the Medical morning. Branch metroNIDAZO 2021-02- Yes [id number] 500mg Take 1 Univers LE 500 mg -12 18-19 tablet by ity of tablet 00:00: 05:59 mouth in [place] 00 :00 the Medical morning Branch and 1 tablet in the evening. Do all this for 7 days. metroNIDAZO 2021-02- Yes [id number] 500mg Take 1 Univers LE 500 mg -11 -19 tablet by ity of tablet 00:00: 05:59 mouth in [place] 00 :00 the Medical morning Branch and 1 tablet in the evening. Do all this for 7 days. metroNIDAZO 2021-02- Yes [id number] 500mg Take 1 Univers LE 500 mg -11 -19 tablet by ity of tablet 00:00: 05:59 mouth in [place] 00 :00 the Medical morning Branch and 1 tablet in the evening. Do all this for 7 days. metroNIDAZO 2021-02- Yes [id number] 500mg Take 1 Univers LE 500 mg 02-17 tablet by ity of tablet 00:00: 05:59 mouth in [place] 00 :00 the Medical morning Branch and 1 tablet in the evening. Do all this for 7 days. ampicillin 2021- No [id number] 500mg Take 1 Univers 500 mg 08-21 capsule by ity of capsule 00:00: 04:59 mouth 4 [place] 00 :[address] [facility] Medical times [place] daily for 10 days. ampicillin 2021- No [id number] 500mg Take 1 Univers 500 mg -15 - capsule by ity of capsule 00:00: 04:59 mouth 4 [place] 00 :00 [facility]) [facility] times [place]vin daily for 10 days. ampicillin 2021- No [id number] 500mg Take 1 Univers 500 mg 08-21 capsule by ity of capsule 00:00: 04:59 mouth 4 [place] 00 :[address]) [facility] times [place] daily for 10 days. citalopram Yes [id number] 10mg Take 1 U nivers 10 mg 7-13 tablet by ity of tablet 00:00: mouth in [place] 00 the Medical morning. Branch citalopram Yes [id number] 10mg Take 1 U nivers 10 mg 7-13 tablet by ity of tablet 00:00: mouth in [place] 00 the Medical morning. Branch citalopram Yes [id number] 10mg Take 1 U nivers 10 mg 7-13 tablet by ity of tablet 00:00: mouth in [place] 00 the Medical morning. Branch citalopram Yes [id number] 10mg Take 1 U nivers 10 mg 7-13 tablet by ity of tablet 00:00: mouth in [place] 00 the Medical morning. Branch citalopram 0 Yes [id number] 10mg Take 1 U nivers 10 mg 7-13 tablet by ity of tablet 00:00: mouth in [place] 00 the Medical morning. Branch citalopram Yes [id number] 10mg Take 1 U nivers 10 mg 7-13 tablet by ity of tablet 00:00: mouth in [place] 00 the Medical morning. Branch citalopram 2021-0 Yes [id number] 10mg Take 1 U nivers 10 mg 7-13 tablet by ity of tablet 00:00: mouth in [place] the Medical morning. Branch citalopram 2021-0 Yes [id number] 10mg Take 1 U nivers 10 mg 7-13 tablet by ity of tablet 00:00: mouth in [place] the Medical morning. Branch citalopram 2021-0 Yes [id number] 10mg Take 1 U nivers 10 mg 7-13 tablet by ity of tablet 00:00: mouth in [place] the Medical morning. Branch citalopram 0 Yes [id number] 10mg Take 1 U nivers 10 mg 7-13 tablet by ity of tablet 00:00: mouth in [place] the Medical morning. Branch citalopram 0 Yes [id number] 10mg Take 1 U nivers 10 mg 7-13 tablet by ity of tablet 00:00: mouth in [place] the Medical morning. Branch citalopram 0 Yes [id number] 10mg Take 1 U nivers 10 mg 7-13 tablet by ity of tablet 00:00: mouth in [place] the Medical morning. Branch citalopram 0 Yes [id number] 10mg Take 1 U nivers 10 mg 7-13 tablet by ity of tablet 00:00: mouth in [place] the Medical morning. Branch citalopram 0 Yes [id number] 10mg Take 1 U nivers 10 mg 7-13 tablet by ity of tablet 00:00: mouth in [place] the Medical morning. Branch citalopram 2021-0 Yes [id number] 10mg Take 1 U nivers 10 mg 7-13 tablet by ity of tablet 00:00: mouth in [place] the Medical morning. Branch citalopram 2021-0 Yes [id number] 10mg Take 1 U nivers 10 mg 7-13 tablet by ity of tablet 00:00: mouth in [place] 00 the Medical morning. Branch ibuprofen 2021-0 Yes [id number] 600mg Take 1 Univers 600 mg 6-13 tablet by ity of tablet 00:00: mouth [place] 00 every 6 Medical (six) Branch hours as needed for Pain (scale 4-6). ibuprofen 2021-0 Yes [id number] 600mg Take 1 Univers 600 mg 6-13 tablet by ity of tablet 00:00: mouth [place] 00 every 6 Medical (six) Branch hours as needed for Pain (scale 4-6). ibuprofen 2022-0 Yes [id number] 600mg Take 1 Univers 600 mg 6-13 tablet by ity of tablet 00:00: mouth [place] 00 every 6 Medical (six) Branch hours as needed for Pain (scale 4-6). ibuprofen 2022-0 Yes [id number] 600mg Take 1 Univers 600 mg 6-13 tablet by ity of tablet 00:00: mouth [place] 00 every 6 Medical (six) Branch hours as needed for Pain (scale 4-6). ibuprofen 2022-0 Yes [id number] 600mg Take 1 Univers 600 mg 6-13 tablet by ity of tablet 00:00: mouth [place] 00 every 6 Medical (six) Branch hours as needed for Pain (scale 4-6). ibuprofen 2022-0 Yes [id number] 600mg Take 1 Univers 600 mg 6-13 tablet by ity of tablet 00:00: mouth [place] 00 every 6 Medical (six) Branch hours as needed for Pain (scale 4-6). ibuprofen 2022-0 Yes [id number] 600mg Take 1 Univers 600 mg 6-13 tablet by ity of tablet 00:00: mouth [place] 00 every 6 Medical (six) Branch hours as needed for Pain (scale 4-6). ibuprofen 2022-0 Yes [id number] 600mg Take 1 Univers 600 mg 6-13 tablet by ity of tablet 00:00: mouth [place] 00 every 6 Medical (six) Branch hours as needed for Pain (scale 4-6). ibuprofen 2022-0 Yes [id number] 600mg Take 1 Univers 600 mg 6-13 tablet by ity of tablet 00:00: mouth [place] 00 every 6 Medical (six) Branch hours as needed for Pain (scale 4-6). ibuprofen 2022-0 Yes [id number] 600mg Take 1 Univers 600 mg 6-13 tablet by ity of tablet 00:00: mouth [place] 00 every 6 Medical (six) Branch hours as needed for Pain (scale 4-6). ibuprofen 2022-0 Yes [id number] 600mg Take 1 Univers 600 mg 6-13 tablet by ity of tablet 00:00: mouth [place] 00 every 6 Medical (six) Branch hours as needed for Pain (scale 4-6). ibuprofen 2022-0 Yes [id number] 600mg Take 1 Univers 600 mg 6-13 tablet by ity of tablet 00:00: mouth [place] 00 every 6 Medical (six) Branch hours as needed for Pain (scale 4-6). ibuprofen 2022-0 Yes [id number] 600mg Take 1 Univers 600 mg 6-13 tablet by ity of tablet 00:00: mouth [place] 00 every 6 Medical (six) Branch hours as needed for Pain (scale 4-6). ibuprofen 2022-0 Yes [id number] 600mg Take 1 Univers 600 mg 6-13 tablet by ity of tablet 00:00: mouth [place] 00 every 6 Medical (six) Branch hours as needed for Pain (scale 4-6). ibuprofen 2022-0 Yes [id number] 600mg Take 1 Univers 600 mg 6-13 tablet by ity of tablet 00:00: mouth [place] 00 every 6 Medical (six) Branch hours as needed for Pain (scale 4-6). ibuprofen 2022-0 Yes [id number] 600mg Take 1 Univers 600 mg 6-13 tablet by ity of tablet 00:00: mouth [place] 00 every 6 Medical (six) Branch hours as needed for Pain (scale 4-6). busPIRone 2022-0 Yes 10mg Take 10 mg Un rand 10 mg 6-08 by mouth ity of tablet 17:04: as needed. [address] busPIRone 2022-0 Yes 10mg Take 10 mg Un rand 10 mg 6-08 by mouth ity of tablet 17:04: as needed. [address] busPIRone 2022-0 Yes 10mg Take 10 mg Un rand 10 mg 6-08 by mouth ity of tablet 17:04: as needed. [address] busPIRone 2022-0 Yes 10mg Take 10 mg Un rand 10 mg 6-08 by mouth ity of tablet 17:04: as needed. [address] busPIRone 2022-0 Yes 10mg Take 10 mg Un rand 10 mg 6-08 by mouth ity of tablet 17:04: as needed. [address] busPIRone 2022-0 Yes 10mg Take 10 mg Un rand 10 mg 6-08 by mouth ity of tablet 17:04: as needed. [address] busPIRone 2021-0 Yes 10mg Take 10 mg Un rand 10 mg 6-08 by mouth ity of tablet 17:04: as needed. [address] Branch busPIRone 2021-0 Yes 10mg Take 10 mg Un rand 10 mg 6-08 by mouth ity of tablet 17:04: as needed. [address] busPIRone 2021-0 Yes 10mg Take 10 mg Un rand 10 mg 6-08 by mouth ity of tablet 17:04: as needed. [address] Branch busPIRone 2021-0 Yes 10mg Take 10 mg Un rand 10 mg 6-08 by mouth ity of tablet 17:04: as needed. [address] busPIRone 2021-0 Yes 10mg Take 10 mg Un rand 10 mg 6-08 by mouth ity of tablet 17:04: as needed. [address] busPIRone 2021-0 Yes 10mg Take 10 mg Un rand 10 mg 6-08 by mouth ity of tablet 17:04: as needed. [address] Branch busPIRone 2021-0 Yes 10mg Take 10 mg Un rand 10 mg 6-08 by mouth ity of tablet 17:04: as needed. [address] busPIRone 2021-0 Yes 10mg Take 10 mg Un rand 10 mg 6-08 by mouth ity of tablet 17:04: as needed. [address] busPIRone 2021-0 Yes 10mg Take 10 mg Un rand 10 mg 6-08 by mouth ity of tablet 17:04: as needed. [address] Branch busPIRone 2021-0 Yes 10mg Take 10 mg Un rand 10 mg 6-08 by mouth ity of tablet 17:04: as needed. [address] Immunizations Ordered Filled Immunization Date Status Comments [facility] Immunization Name Name TD 2020-09-15 Completed University [facility] 00:00:00 [facility] TDAP 2020-09-15 Completed University of 00:00:00 [facility] TDAP 2020-09-15 Completed University of 00:00:00 [facility] TDAP 2020-09-15 Completed University of 00:00:00 [facility] TDAP 2020-09-15 Completed University of 00:00:00 [facility] TDAP 2020-09-15 Completed University of 00:00:00 [facility] TDAP 2020-09-15 Completed University of 00:00:00 [place] [facility] TDAP 2020-09-15 Completed University of 00:00:00 [place] [facility] TDAP 2020-09-15 Completed University of 00:00:00 [place] [facility] TDAP 2020-09-15 Completed University of 00:00:00 [place] [facility] TDAP 2020-09-15 Completed University of 00:00:00 [place] [facility] TDAP 2020-09-15 Completed University of 00:00:00 [place] [facility] TDAP 2020-09-15 Completed University of 00:00:00 [place] [facility] TDAP 2020-09-15 Completed University of 00:00:00 [place] [facility] TDAP 2020-09-15 Completed University of 00:00:00 [place] [facility] TDAP 2020-09-15 Completed University [facility] 00:00:00 [facility] TDAP 2017-02-09 Completed University of 00:00:00 [place] [facility] TDAP 2017-02-09 Completed University of 00:00:00 [place] [facility] TDAP 2017-02-09 Completed University of 00:00:00 [place] [facility] TDAP 2017-02-09 Completed University of 00:00:00 [place] [facility] TDAP 2017-02-09 Completed University of 00:00:00 [place] [facility] TDAP 2017-02-09 Completed University [facility] 00:00:00 [facility] TDAP 2017-02-09 Completed University of 00:00:00 [place] [facility] TDAP 2017-02-09 Completed University of 00:00:00 [place] [facility] TDAP 2017-02-09 Completed University of 00:00:00 [place] [facility] TDAP 2017-02-09 Completed University of 00:00:00 [place] [facility] TDAP 2017-02-09 Completed University of 00:00:00 [place] [facility] TDAP 2017-02-09 Completed University of 00:00:00 [place] [facility] TDAP 2017-02-09 Completed University of 00:00:00 [place] [facility] TDAP 2017-02-09 Completed University of 00:00:00 [place] [facility] TDAP 2017-02-09 Completed University of 00:00:00 [place] [facility] TDAP 2017-02-09 Completed University of 00:00:00 [place] [facility] TDAP 2007-02-07 Completed University of 00:00:00 [place] [facility] TDAP 2007-02-07 Completed University of 00:00:00 [place] [facility] TDAP 2007-02-07 Completed University of 00:00:00 [place] [facility] TDAP 2007-02-07 Completed University of 00:00:00 [place] [facility] TDAP 2007-02-07 Completed [facility] 00:00:00 [facility] TDAP 2007-02-07 Completed University [facility] 00:00:00 [facility] TDAP 2007-02-07 Completed University of 00:00:00 [place] [facility] TDAP 2007-02-07 Completed University of 00:00:00 [facility] TDAP 2007-02-07 Completed University of 00:00:00 [facility] TDAP 2007-02-07 Completed University of 00:00:00 [facility] TDAP 2007-02-07 Completed University of 00:00:00 [facility] TDAP 2007-02-07 Completed University of 00:00:00 [facility] TDAP 2007-02-07 Completed University of 00:00:00 [facility] TDAP 2007-02-07 Completed University of 00:00:00 [facility] TDAP 2007-02-07 Completed University of 00:00:00 [facility] TDAP 2007-02-07 Completed University of 00:00:00 [facility] Vital Signs Vital Name Observation Time Observation Value Comments Source Systolic blood 2022-01-08 19:57:00 123 mm[Hg] Univer sity of pressure [facility] Diastolic blood 2022-01-08 19:57:00 78 mm[Hg] Unive rsity of pressure [facility] Heart rate 2022-01-08 19:57:00 103 /min [facility] Body temperature 2022-01-08 19:57:00 36 [address] [facility] [place] [facility] [address] [facility] Respiratory rate 2022-01-08 19:57:00 18 /min [facility] [place] [facility] [facility] Body height 2022-01-08 19:57:00 154.9 cm [facility] Body weight 2022-01-08 19:57:00 82.056 kg [facility] BMI 2022-01-08 19:57:00 34.18 kg/m2 [facility] Systolic blood 2021-12-18 20:33:00 110 mm[Hg] Univer sity of pressure [facility] Diastolic blood 2021-12-18 20:33:00 70 mm[Hg] [facility] Heart rate 2021-12-18 20:33:00 96 /min [facility] Body temperature 2021-12-18 20:33:00 36.56 Brigitte [facility] Respiratory rate 2021-12-18 20:33:00 17 /min [facility] Body height 2021-12-18 20:33:00 154.9 cm [facility] Body weight 2021-12-18 20:33:00 79.742 kg [facility] BMI 2021-12-18 20:33:00 33.22 kg/m2 [facility] Procedures Procedure Date / Time Performing Clinician Source Performed DISCLOSURE AND CONSENT, 2022-01-08 06:01:00 Doctor Unassigned, N o [facility] MEDICAL AND SURGICAL Name Medical Bra [facility] PROCEDURES HCV ANTIBODY 2021-12-18 21:53:00 Deja Álvarez [facility] URINE CULTURE 2021-12-18 21:53:00 Deja Álvarez [facility] HIV 1/2 AG-AB WITH 2021-12-18 21:53:00 Deja [facility] [place] PAP SMEAR-LIQUID 2021-12-18 21:53:00 Deja Álvarez [facility] BASED-CP [facility] GALV ONLY - SYPHILIS 2021-12-18 21:53:00 Deja Álvarez [facility] IGG/IGM [facility] URINE CULTURE 2021-12-18 21:53:00 Deja Álvarez [facility] GC & CHLAMYDIA 2021-12-18 21:53:00 Deja Álvarez [facility] AMPLIFIED ASSAY [facility] HIGH RISK HPV-THIN PREP 2021-12-18 21:53:00 Deja Álvarez [facility] TRICHOMONAS AMPLIFIED 2021-12-18 21:53:00 [facility] 2021-12-18 00:00:00 Deja Álvarez [facility] POCT URINALYSIS W/O 2021-12-18 00:00:00 Deja Álvarez [facility] Encounters Start End Encounter Admission Attending Care Care Encounter Source Date/Time Date/Time Type Type Clinicians Facility Department ID 2020-12-07 Emergency [facility] [id number] Univers 15:42:49 ity of [facility] 2020-12-07 Emergency [facility] [id number] Univers 01:14:36 ity of [facility] 2020-12-05 Emergency [facility] [id number] Univers 06:56:18 ity of [facility] 2020-12-05 Emergency [facility] [id number] Univers 06:14:29 ity [facility] 2022-03-22 2022-03-22 Outpatient R DANIELA [facility] [id number] Univers 13:30:00 13:30:00 ANALISA ity o f [facility] 2022-01-08 2022-01-08 [facility] [id number] Univers 13:30:00 15:04:40 DEE ity [facility] 2022-01-08 2022-01-08 Office Pgy3 UNIVERSIT 1.2.169.188 [id number] Univers 13:30:00 15:04:40 Visit Dee Huffman [facility] 350.1.13.10 ity of [place] [id number] [facility] [address] 2022-01-08 2022-01-08 Orders Doctor KEARA 1.2.840.114 [id number] Univers 00:00:00 00:00:00 Only Unassigned, CASI 350.1.13.10 ity of [place] [facility] 4.2.7.2.686 Jaison as [id number] [facility] [address] 2022-01-07 2022-01-07 Case [facility] 1.2.840.114 [id number] Univers 00:00:00 00:00:00 Management Deja A 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 350.1.13.10 ity of [facility] 4.2.7.2.686 Jaison as MATERNAL [phone] Med ical & CHILD [address] [place] [address] 2022-01-07 2022-01-07 [facility] 1.2.840.114 [id number] Univers 00:00:00 00:00:00 Deja A 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 350.1.13.10 i ty of REGIONAL 4.2.7.2.686 Jaison as MATERNAL [phone] Med ical & CHILD [address] [place] [address] 2022-01-05 2022-01-05 Refill [facility] 1.2.840.114 [id number] Univers 00:00:00 00:00:00 Deja A 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 350.1.13.10 i ty of [facility] 4..7.2.686 Jaison as MATERNAL [phone] Med ical & CHILD [address] [place] [address] 2021-12-21 2021-12-21 Case [facility] 1.2.840.114 [id number] Univers 00:00:00 00:00:00 Management Deja A 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 350.1.13.10 ity of [facility] 4.2.7.2.686 Jaison as MATERNAL [phone] Med ical & CHILD [address] [place] [address] 2021-12-18 2021-12-18 Outpatient R PREETI [facility] [id number] Univers 14:15:00 15:30:31 DEJA ity [facility] 2021-12-18 2021-12-18 Office Provider, Ang-Rmchp [facility] 1 .2.840.114 [id number] Univers 14:15:00 15:30:31 Visit Deja Álvarez 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 350.1.13.1 0 ity of [facility] 4.2.7.2.686 Jaison as MATERNAL [phone] [facility] ical & CHILD [address] [place] [address] 2021-09-28 2021-09-28 Outpatient Jocelyn COLLADO [facility] [id number] Univers 11:00:00 11:00:00 JARED vance [facility] 2021-09-24 2021-09-24 Outpatient R GINA [facility] [id number] Univers 13:45:00 13:45:00 KHANH vance [facility] 2021-09-18 2021-09-18 Outpatient R PHUONG [facility] [id number] Univers 09:30:00 09:30:00 TYRESE boyerisac [facility] 2021-09-01 2021-09-01 Out[facility] [id number] Univers 15:30:00 15:30:00 JARED rosalindisac [facility] 2021-08-28 2021-08-28 Patient [facility] 1.2.840.114 [id number] Univers 00:00:00 00:00:00 Secure [facility] 350.1.13.10 ity of [place] 4.2.7.2.686 Jaison as EMILIANO?BLEA [phone] [address] 2021-08-24 2021-08-24 Abstract [facility] 1.2.840.114 [id number] Univers 00:00:00 00:00:00 Formerly [facility] 350.1.13.10 it y of [place] 4.2.7.2.686 Jaison as EMILIANO?BLEA [id number] [address] 2021-08-21 2021-08-21 Telephone Daniela [facility] 1.2.840.114 [id number] Univers 00:00:00 00:00:00 Analisa Hawkins 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 350.1.13.10 ity of [facility] 4.2.7.2.686 Jaison as MATERNAL [id number] Med ical & CHILD [address] [place] [address] 2021-08-19 2021-08-19 Outpatient R TOBIAS [facility] [id number] Univers 16:00:00 16:00:00 JARED vance [facility] 2021-08-19 2021-08-19 Refill [facility] 1.2.840.114 [id number] Univers 00:00:00 00:00:00 Jared HEALTH 350.1.13.10 it y of [place] 4.2.7.2.686 Jaison as EMILIANO?BLEA [phone] Tn luis alberto [place] [address] MEDICAL OFFICE [facility] 2021-08-19 2021-08-19 Refill Jv [facility] 1.2.840.114 [id number] Univers 00:00:00 00:00:00 Roshunda R 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 350.1.13.10 ity of [facility] 4.2.7.2.686 Jaison as MATERNAL [phone] [facility] [address] [place] [address] 2021-08-19 2021-08-19 Refill Doctor [facility] 1.2.840.114 [id number] Univers 00:00:00 00:00:00 Unassigned, HEALTH 350.1.13.10 ity of [place] 4.2.7.2.686 Jaison as EMILIANO?BLEA [phone] Tn luis alberto SMITH [address] [facility] OFFICE [facility] 2021-08-13 2021-08-13 Outpatient R [facility] [id number] Univers 14:15:00 16:02:04 ROSBENJAMINNDA ity o f [facility] 2021-08-13 2021-08-13 Office [facility] 1.2.840.114 [id number] Univers 14:15:00 16:02:04 Visit Rosbenjaminnda R 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 350.1.13.10 ity of [facility] 4.2.7.2.686 Jaison as MATERNAL [id number] [facility] & [address] 2021-08-13 2021-08-13 Outpatient R JV [facility] [id number] Univers 14:15:00 14:15:00 ROSHUNDA ity o f [facility] 2021-08-07 2021-08-07 Outpatient R TOBIAS [facility] [id number] Univers 16:00:00 16:00:00 JARED vnace of [facility] 2021-08-04 2021-08-04 Telephone [facility] 1.2.322.886 [id number] Univers 00:00:00 00:00:00 Roshunda R 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 350.1.13.10 ity of REGIONAL 4.2.7.2.686 Jaison as MATERNAL [id number] [facility] CH[facility] [address] [place] [address] 2021-08-04 2021-08-04 Patient Tobias [facility] 1.2.840.114 [id number] Univers 00:00:00 00:00:00 Secure Msg Jared [facility] 350.1.13.10 ity [facility] 4.2.7.2.686 Jaison as EMILIANO?BLEA [phone] [address] MEDICAL OFFICE BUILDING 2021-08-03 2021-08-03 Telephone [facility] 1.2.361.785 [id number] Univers 00:00:00 00:00:00 Rosjosué R 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 350.1.13.10 ity of [facility] 4.2.7.2.686 Jaison as MATERNAL [phone] [facility] & CHILD [address] [place] [address] 2021-07-31 2021-07-31 Outpatient R TOBIAS [facility] [id number] Univers 11:30:00 11:30:00 [facility] 2021-07-30 2021-07-30 Outpatient R JV [facility] [id number] Univers 15:45:00 16:31:25 DANY boyery o f [facility] 2021-07-30 2021-07-30 Office [facility] 1.2.840.114 [id number] Univers 15:45:00 16:31:25 Visit Lilianajosué Banks 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 350.1.13.10 ity of [facility] 4.2.7.2.686 Jaison as MATERNAL [phone] [facility] CH[facility] [address] [place] [address] 2021-07-29 2021-07-29 Outpatient R TOBIAS [facility] [id number] Univers 13:30:00 13:30:00 JARED vance [facility] 2021-07-29 2021-07-29 Patient Doctor [facility] 1.2.840.114 [id number] Univers 00:00:00 00:00:00 Secure Msg Unassigned, HEALTH 350.1.13.10 ity of [place] 4.2.7.2.686 Jaison as EMILIANO?BLEA [phone] Tn dicjose SMITH [address] [facility] OFFICE [facility] 2021-07-29 2021-07-29 Patient Tobias [facility] 1.2.840.114 [id number] Univers 00:00:00 00:00:00 Secure [facility] Jared [facility] 350.1.13.10 ity of [facility] 4.2.7.2.686 Jaison as EMILIANO?BLEA [phone] Tn luis alberto [facility] 044 [facility] OFFICE [facility] 2021-07-28 2021-07-28 Outpatient R [facility] [id number] Univers 16:30:00 17:03:47 [facility] 2021-07-28 2021-07-28 Office [facility] 1.2.840.114 [id number] Univers 16:30:00 17:03:47 Visit [facility] 350.1.13.10 it y of [place] 4.2.7.2.686 Jaison as EMILIANO?BLEA [phone] [address] OFFICE [facility] 2021-07-28 2021-07-28 Manager Development Imelda Salgado Lab Main [facility] 1.2.8 40.114 [id number] Univers 16:45:00 17:00:00 Visit Becca Ramón [place] 350.1.13.10 ity of [facility] 4.2.7.2.[place] PROF[place] [phone] Tn luis alberto [facility] 353 [facility] 2021-07-28 2021-07-28 Outpatient R BECCA [facility] [id number] Univers 16:45:00 16:45:00 RAM[facility]NBaylor [facility] 2021-07-28 2021-07-28 Telephone [facility]UN[facility] 1.2.010.095 [id number] Univers 00:00:00 00:00:00 Shanita 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 350.1.13.10 it y of [facility] 4.2.7.2.686 Jaison as MATERNAL [phone] Med ical & CHILD [address] [place] [address] 2021-07-28 2021-07-28 Orders Doctor KEARA 1.2.840.114 [id number] Univers 00:00:00 00:00:00 Only Unassigned, CASI 350.1.13.10 ity of [place] [facility] 4.2.7.2.686 Jaison as [phone] [facility] [address] 2021-07-25 2021-07-25 Nurse KEARA Rubio 1.2.840.114 [id number] Univers 00:00:00 00:00:00 Triage Chessica T CASI 350.1.13.10 ity of HOSPITAL 4.2.7.2.686 Jaison as [phone] [facility] [address] 2021-07-22 2021-07-22 Outpatient R TOBIAS [facility] [id number] Univers 14:30:00 14:30:00 JARED itisac [facility] 2021-07-21 2021-07-21 Telephone Tobias [facility] 1.2.527.642 [id number] Univers 00:00:00 00:00:00 Jared Loogla 350.1.13.10 it y of [place] 4.2.7.2.686 Jaison as EMILIANO?BLEA [phone] [address] MEDICAL OFFICE [facility] 2021-07-21 2021-07-21 Patient [facility] 1.2.840.114 [id number] Univers 00:00:00 00:00:00 Secure Msg Jared Loogla 350.1.13.10 ity of [place] 4.2.7.2.686 Jaison as EMILIANO?BLEA [phone] [address] MEDICAL OFFICE [facility] 2021-07-20 2021-07-20 Emergency X Manuel [facility] ERT [id number] Univers 16:13:00 17:36:00 ity of [facility] 2021-07-20 2021-07-20 Emergency Manuel Stanford [facility] 1.2.840.114 [id number] Univers 16:13:00 17:36:00 [place] THALIA 350.1.13.10 i ty of [place].2.7.2.[place] [phone] [facility] [address] 2021-07-20 2021-07-20 Manager Development Lab, Ang - Db [facility] 1.2.840.1 14 [id number] [facility] 15:45:00 16:00:00 Visit Shanon Beckham [facility] 350.1.13.10 ity of Oumar Dudley [place] 4.2.7.2.686 [place] EMILIANO?BLEA [phone] Tn luis alberto [place] [address] MEDICAL OFFICE [facility] 2021-07-20 2021-07-20 Outpatient R OCTAVIA [facility] [id number] [facility] 15:20:00 15:44:36 OUMAR vance o f [facility] 2021-07-20 2021-07-20 Urgent Savana Dudleytany [facility] 1.2.840. 114 [id number] [facility] 15:20:00 15:44:36 Care Shanon Beckham [facility] 350.1.13.10 ity of [place] 4.2.7.2.686 Jaison as EMILIANO?BLEA [phone] Me dicjose [place] [address] MEDICAL OFFICE [facility] 2021-07-17 2021-07-17 Patient Yoandy [facility] 1.2.840.114 [id number] Univers 00:00:00 00:00:00 Secure Msg July HEALTH 350.1.13.10 ity of [place] 4.2.7.2.686 Jaison as EMILIANO?BLEA [phone] Me dicjose [place] 044 [facility] OFFICE [facility] 2021-07-17 2021-07-17 Patient Tobias [facility] 1.2.840.114 [id number] Univers 00:00:00 00:00:00 Secure Msg Jared HEALTH 350.1.13.10 ity of [place] 4.2.7.2.686 Jaison as EMILIANO?BLEA [phone] Tn dical VIRAL 044 [facility] OFFICE [facility] 2021-07-16 2021-07-16 Manager Development Lab, Ang - Db [facility] 1.2.840.1 14 [id number] [facility] 14:15:00 14:41:18 Visit Tobias Jared HEALTH 350.1.13.10 ity of [place] 4.2.7.2.686 Jaison as EMILIANO?BLEA [id number] Me dical KN 353 [facility] OFFICE [facility] 2021-07-16 2021-07-16 Manager Development Lab, Ang - Db [facility] 1.2.840.1 14 [id number] Univers 14:15:00 14:30:00 Visit Jared Collado 350.1.13.10 ity of [place] 4.2.7.2.686 Jaison as EMILIANO?BLEA [id number] Tn luis alberto [address] 2021-07-16 2021-07-16 Outpatient [facility] [id number] Univers 14:15:00 14:15:00 JARED vance [facility] 2021-07-15 2021-07-15 Manager Development Lab, Ang [facility] 1.2.840.1 14 [id number] Univers 15:30:00 15:45:00 Visit Jared Collado 350.1.13.10 ity [facility] 4.2.7.2.686 Jaison as EMILIANO?BLEA [phone] Tn luis alberto [address] OFFICE [facility] 2021-07-15 2021-07-15 Outpatient R [facility] [id number] Univers 14:00:00 15:22:50 JARED vance [facility] 2021-07-15 2021-07-15 Outpatient R [facility] [id number] Univers 14:00:00 15:22:50 JARED vance [facility] 2021-07-15 2021-07-15 Office [facility] 1.2.840.114 [id number] Univers 14:00:00 15:22:50 Visit Jared [facility] 350.1.13.10 it y of [place] 4.2.7.2.686 Jaison as EMILIANO?BLEA [id number] Tn luis alberto SMITH 0[address] [facility] OFFICE [facility] 2021-07-15 2021-07-15 Outpatient R [facility] [id number] Univers 14:00:00 15:22:50 JARED vance [facility] 2021-07-13 2021-07-13 Outpatient R [facility] [id number] Univers 08:30:00 08:30:00 NIALLA rosalindy o f [facility] 2021-07-13 2021-07-13 Outpatient R CARIAS, [facility] [id number] Univers 08:30:00 08:30:00 NIALLA rosalindy o f [facility] 2021-07-11 2021-07-11 Outpatient R MARSHALL, [facility] [id number] Univers 14:20:00 15:10:05 MARIA ISABEL rosalindy [facility] 2021-07-11 2021-07-11 Urgent [facility] 1.2.840.114 [id number] Univers 14:20:00 15:10:05 Care Maria Isabel Loogla 350.1.13.10 it y of [place] 4.2.7.2.686 Jaison as EMILIANO?BLEA [id number] [address] MEDICAL OFFICE BUILDING 2021-06-30 2021-06-30 Outpatient R DANIELA [facility] [id number] Univers 14:30:00 15:41:19 ANALISA vance o f [facility] 2021-06-30 2021-06-30 Office [facility] 1.2.803.099 [id number] Univers 14:30:00 15:41:19 Visit Analisa Hawkins 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 350.1.13.10 ity of [facility] 4.2.7.2.686 Jaison as MATERNAL [phone] [facility] & CHILD [address] [place] [address] 2021-06-30 2021-06-30 Letter BrandonmandeepUNM [facility] 1.2.764.876 [id number] Univers 00:00:00 00:00:00 (Out) Analisa Hawkins 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 350.1.13.10 ity of [facility] 4.2.7.2.686 Jaison as MATERNAL [phone] [facility] & CHILD [address] [place] [address] 2021-06-26 2021-06-26 Manager Development Lab, Ang - Db [facility] 1.2.840.1 14 [id number] Univers 15:45:00 16:00:00 Visit Tyrese Baca HEALTH 350.1.13.10 ity of [place] 4.2.7.2.686 Jaison as EMILIANO?BLEA [phone] Tn luis alberto [place] [address] MEDICAL OFFICE BUILDING 2021-06-26 2021-06-26 Outpatient R PHUONG [facility] [id number] Univers 14:30:00 15:40:40 TYRESE vance [facility] 2021-06-26 2021-06-26 Office Phoung [facility] 1.2.840.114 [id number] Univers 14:30:00 15:40:40 [facility] 350.1.13.10 it y [facility] 4.2.7.2.686 Jaison as EMILIANO?BLEA [id number] Tn luis alberto [facility] [address] MEDICAL OFFICE BUILDING 2021-06-26 2021-06-26 Telephone Jv [facility] 1.2.181.012 [id number] Univers 00:00:00 00:00:00 Dany Banks 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 350.1.13.10 [facility] 4.2.7.2.686 Jaison as MATERNAL [phone] [facility] ical & CHILD [address] [place] [address] 2021-06-25 2021-06-25 Outpatient R JV [facility] [id number] Univers 14:30:00 14:30:00 DANY resendez [facility] 2021-06-25 2021-06-25 Outpatient R CARIAS [facility] [id number] Univers 14:30:00 14:30:00 DANY montejo [facility] 2021-06-22 2021-06-22 Outpatient R TOBIAS [facility] [id number] Univers 15:30:00 15:30:00 JARED vance [facility] 2021-06-22 2021-06-22 Outpatient R TOBIAS [facility] [id number] Univers 15:30:00 15:30:00 JARED vance [facility] 2021-06-18 2021-06-18 Patient Tobias [facility] 1.2.840.114 [id number] Univers 00:00:00 00:00:00 Secure Msg Jared Loogla 350.1.13.10 ity [facility] 4.2.7.2.686 Jaison as EMILIANO?BLEA [phone] [facility] [address] MEDICAL OFFICE [facility] 2021-06-16 2021-06-16 Manager Development Lab, Ang - Db [facility] 1.2.840.1 14 [id number] Univers 15:30:00 15:45:00 Visit Easton [facility] 350.1.13.10 ity [facility] 4.2.7.2.686 Jaison as EMILIANO?BLEA [phone] [facility] [address] MEDICAL OFFICE [facility] 2021-06-16 2021-06-16 Outpatient R [facility]ECHAR[facility]ENCINCINNAT[facility] [id number] Univers 14:30:00 15:22:44 TYRESE ity [facility] 2021-06-16 2021-06-16 [facility] 1.2.840.114 [id number] Univers 14:30:00 15:22:[address] [facility] 350.1.13.10 it y of [place] 4.2.7.2.686 Jaison as EMILIANO?BLEA [id number] [address] OFFICE [facility] 2021-06-12 2021-06-12 Office AkinmandeepUNM [facility] 1.2.302.935 [id number] Univers 13:45:00 14:00:00 Visit Analisa Hawkins 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 350.1.13.10 ity of [facility] 4.2.7.2.686 Jaison as MATERNAL [phone] [facility] ical & CHILD [address] [place] [address] 2021-06-12 2021-06-12 Outpatient R AKINSIPE, [facility] [id number] Univers 13:45:00 13:45:00 ANALISA ity o f [facility] 2021-06-12 2021-06-12 Outpatient R AKINSIPE, [facility] [id number] Univers 13:45:00 13:45:00 ANALISA ity o f [facility] 2021-06-11 2021-06-11 Telephone AkinmandeepUNM [facility] 1.2.840.114 [id number] Univers 00:00:00 00:00:00 Analisa C 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 350.1.13.10 ity of [facility] 4.2.7.2.686 Jaison as MATERNAL [phone] [facility] & CHILD [address] [place] [address] 2021-06-10 2021-06-10 Office [facility]UN[facility] 1.2.599.165 [id number] Univers 13:30:00 14:41:56 Visit Analisa Shruthi 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 [id number] ity [facility] [id number] Jaison as MATERNAL [id number] [address] 2021-06-10 2021-06-10 Outpatient R DANIELA, [facility] [id number] Univers 13:30:00 14:41:56 ANALISA vance o [facility] 2021-06-10 2021-06-10 Outpatient R DANIELA, [facility] [id number] Univers 13:30:00 13:30:00 ANALISA vance o [facility] 2021-06-08 2021-06-08 Outpatient R PHUONG [facility] [id number] Univers 15:30:00 15:30:[facility] [id number] Univers 15:30:00 15:30:00 [facility] 2021-06-02 2021-06-02 [facility] [id number] Univers 14:30:00 15:12:53 [facility] 2021-06-02 2021-06-02 [facility] [id number] Univers 14:30:00 15:12:[address] [facility] Hospital 350.1.13.10 it y [facility] 4.2.7.2.686 Jaison as EMILIANO?BLEA [id number] [address] MEDICAL OFFICE [facility] 2021-06-02 2021-06-02 Outpatient R PHUONG, [facility] [id number] Univers 14:30:00 [facility]:12:[facility]-02 2021-06-02 [facility] [id number] Univers 14:30:00 14:30:00 TYRESE vance [facility] 2021-05-29 2021-05-29 Office [facility] 1.2.840.114 [id number] Univers 14:00:00 14:30:00 Visit Jared ROLAND 350.1.13.10 it y of [place] 4.2.7.2.686 Jaison as EMILIANO?BLEA [phone] Tn luis alberto STRATTON 044 [facility] OFFICE [facility] 2021-05-29 2021-05-29 Outpatient R TOBIAS [facility] [id number] Univers 14:00:00 14:00:00 JARED vance [facility] 2021-05-29 2021-05-29 Outpatient R PHUONG [facility] [id number] Univers 09:30:00 09:30:00 TYRESE vance [facility] 2021-05-28 2021-05-28 Telephone [facility] 1.2.673.298 [id number] Univers 00:00:00 00:00:00 Jared ROLAND 350.1.13.10 it y of [place] 4.2.7.2.686 Jaison as EMILIANO?BLEA [phone] Tn luis alberto STRATTON 044 [facility] 2021-05-27 2021-05-27 Manager Development Lab, Ang - [facility] 1.2.840.1 14 [id number] Univers 09:15:00 09:30:00 Visit Jared Collado 350.1.13.10 ity of [place] 4.2.7.2.686 Jaison as EMILIANO?BLEA [phone] Tn luis alberto STRATTON 353 [facility] OFFICE [facility] 2021-05-27 2021-05-27 Outpatient R TOBIAS [facility] [id number] Univers 09:15:00 09:15:00 JARED vance [facility] 2021-05-27 2021-05-27 Office [facility] 1.2.840.114 [id number] Univers 08:30:00 09:00:00 Visit Jared ROLAND 350.1.13.10 it y of [place] 4.2.7.2.686 Jaison as EMILIANO?BLEA [phone] Tn luis alberto SMITH[address] OFFICE [facility] 2021-05-27 2021-05-27 Outpatient R TOBIAS [facility] [id number] Univers 08:30:00 08:30:00 JARED vance [facility] 2021-05-27 2021-05-27 Letter [facility] 1.2.840.114 [id number] Univers 00:00:00 00:00:00 (Out) Jared HEALTH 350.1.13.10 it y of [place] 4.2.7.2.686 Jaison as EMILIANO?BLEA [phone] Tn luis alberto SMITH[address] 2021-05-27 2021-05-27 [facility] 1.2.945.867 [id number] Univers 00:00:00 00:00:00 Jared HEALTH 350.1.13.10 it y of [place] 4.2.7.2.686 Jaison as EMILIANO?BLEA [phone] Tn avis[address] 2021-05-27 2021-05-27 Telephone [facility] 1.2.045.258 [id number] Univers 00:00:00 00:00:00 Jared HEALTH 350.1.13.10 it y of [place] 4.2.7.2.686 Jaison as EMILIANO?BLEA [id number] Tn avis[address] 2021-05-23 2021-05-[address] [facility] ERT [id number] Univers 01:00:00 06:13:00 GABRIELLE itisac [facility] 2021-05-23 2021-05-23 Emergency [facility] 1.2.818.835 [id number] Univers 01:00:00 06:13:00 Gabrielle R ANETATON 350.1.13.10 i ty of [place].2.7.2.[place] [id number] [address] 2021-05-23 2021-05-[address] [facility] ERT [id number] Univers 01:00:00 06:13:00 GABRIELLE itisac [facility] 2021-05-22 2021-05-22 Outpatient R FERNANDEZ [facility] [id number] Univers 16:00:00 16:00:00 PAMELA ity o f [facility] 2021-05-22 2021-05-22 Outpatient R FERNANDEZ [facility] [id number] Univers 14:20:00 15:02:37 PAMELA ity o f [facility] 2021-05-22 2021-05-22 [facility] 1.2.840.114 [id number] Univers 14:20:00 15:02:37 Care Pamela [facility] 350.1.13.10 ity of [place] 4.2.7.2.686 Jaison as EMILIANO?BLEA [phone] [address] MEDICAL OFFICE BUILDING 2021-05-15 2021-05-15 Orders Doctor KEARA 1.2.840.114 [id number] Univers 00:00:00 00:00:00 Only Unassigned, CASI 350.1.13.10 ity of [place] [facility] 4.2.7.2.686 Jaison as [phone] [address] 2021-05-04 2021-05-04 Outpatient R YANA [facility] [id number] Univers 15:30:00 15:30:[address] [facility] 2021-05-04 2021-05-04 [facility] [id number] Univers 15:30:00 15:30:00 GERTRUDE isac [facility] 2021-05-01 2021-05-01 Outpatient R SANDRA [facility] [id number] Univers 13:00:00 13:00:00 WONDIFUL ity o f [facility] 2021-05-01 2021-05-01 Outpatient R SANDRA [facility] [id number] Univers 13:00:00 13:00:00 WONDIFUL ity o f [facility] 2021-04-30 2021-04-30 Outpatient R [facility] [id number] Univers 16:30:00 17:15:50 TYRESE vance [facility] 2021-04-30 2021-04-30 Office [facility] 1.2.840.114 [id number] Univers 16:30:00 17:15:50 Visit Tyrese [facility] 350.1.13.10 it [facility] 4.2.7.2.686 Jaison as EMILIANO?BLEA [phone] Tn luis alberto [address] MEDICAL OFFICE BUILDING 2021-04-29 2021-04-29 Emergency X [facility] ERT [id number] Univers 18:59:00 20:20:00 JAG vance [facility] 2021-04-29 2021-04-29 Emergency [facility] 1.2.029.059 [id number] Univers 18:59:00 20:20:00 Jag VÁSQUEZ 350.1.13.10 i ty of [place].2.7.2.[place] [id number] [address] 2021-04-29 2021-04-29 Emergency [facility] [id number] Univers 18:59:00 20:20:00 JAG ity [facility] 2021-04-03 2021-04-03 Outpatient R [facility] [id number] Univers 13:30:00 13:30:00 WONDIFUL itisac o f [facility] 2021-03-27 2021-03-27 Emergency X [facility]NUN[facility] ERT [id number] Univers 02:58:00 04:43:00 JOB vance [facility] 2021-03-27 2021-03-27 [facility] 1.2.418.316 [id number] Univers 02:58:00 04:43:00 Job VÁSQUEZ 350.1.13.10 ity [facility] 4.2.7.2.[place] [phone] [facility] [address] [place] [address] 2021-03-27 2021-03-27 Orders Doctor SARAH 1.2.840.114 [id number] Univers 00:00:00 00:00:00 Only Unassigned, CASI 350.1.13.10 ity of [place] [facility] 4.2.7.2.686 Jaison as [id number] [address] 2020-11-25 2020-11-27 Inpatient X ADUM, [facility] KYLE [id number] Univers 13:14:00 12:30:00 JIMENA pinky [facility] 2020-11-25 2020-11-26 Anesthesia [facility]UN[facility] 1.2.840.114 [id number] Univers 20:45:00 00:47:00 Event Carine [place] 350.1.13.10 i ty of [place] 4.2.7.2.686 [place] [facility] [phone] [place] [address] [place] 2020-11-24 2020-11-24 Refalesha CariasUN[facility] 1.2.840.114 [id number] Univers 00:00:00 00:00:00 Dany Banks 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 350.1.13.10 ity of [facility] 4.2.7.2.686 Jaison as MATERNAL [phone] Med ical & CHILD 107 [facility] 2020-11-20 2020-11-20 Outpatient [facility] [id number] Univers 10:15:00 10:15:00 NORA vance [facility] 2020-11-17 2020-11-17 Telephone [facility]UN[facility] 1.2.840.114 [id number] Univers 00:00:00 00:00:00 Nora Montoya 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 350.1.13.10 it y of [facility] 4.2.7.2.686 Jaison as MATERNAL [phone] Med ical & CHILD 107 [facility] 2020-11-10 2020-11-10 Outpatient [facility] [id number] Univers 10:30:00 10:30:00 NORAARABELLA vance [facility] 2020-10-30 2020-10-30 Outpatient R [facility] [id number] Univers 12:45:00 12:45:00 NORA vance [facility] 2020-10-16 2020-10-16 Routine [facility] 1.2.381.769 [id number] Univers 14:23:36 15:09:33 Nora Montoya 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 350.1.13.10 i ty of [facility] 4.2.7.2.686 Jaison as MATERNAL [phone] Med ical & CHILD [address] [facility] [place] 2020-10-16 2020-10-16 Outpatient Jocelyn [facility] [id number] Univers 13:00:00 13:00:00 NORA vance [facility] 2020-10-16 2020-10-16 Orders Doctor KEARA 1.2.840.114 [id number] Univers 00:00:00 00:00:00 Only Unassigned, CASI 350.1.13.10 ity of [place] [facility] 4.2.7.2.686 Jaison as [id number] [address] 2020-10-15 2020-10-15 Outpatient Jocelyn [facility] [id number] Univers 09:45:00 09:45:00 NIALLA pinky o [facility] 2020-10-07 2020-10-07 Outpatient Jocelyn [facility] [id number] Univers 08:00:00 08:00:00 NORA vance [facility] 2020-09-30 2020-09-30 Outpatient Jocelyn CARIAS [facility] [id number] Univers 18:00:00 18:00:00 FELICITASNDA pinky o [facility] 2020-09-30 2020-09-30 Outpatient Jocelyn CARIAS [facility] [id number] Univers 11:45:00 11:45:00 FELICITASNDA rosalindy o [facility] 2020-09-29 2020-09-29 Outpatient Jocelyn [facility] [id number] Univers 16:45:00 16:45:00 ROSBENJAMINNDA rosalindy o [facility] 2020-09-15 2020-09-15 Routine [facility] 1.2.840.114 [id number] Univers 13:58:57 15:37:45 Felicitasndirene R 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 350.1.13.10 ity of Visit [facility] 4.2.7.2.686 Jaison as MATERNAL [id number] [facility] ical & CHILD [address] [place] [address] 2020-09-15 2020-09-15 Outpatient Jocelyn [facility] [id number] Univers 13:15:00 13:15:00 ROSHUNDA ity o [facility] 2020-09-12 2020-09-12 Nurse Leidy Duran 1.2.840.114 [id number] Univers 00:00:00 00:00:00 Triage CASI 350.1.13.10 it y of HOSPITAL 4.2.7.2.686 Jaison as [id number] [facility] 019 [place] 2020-08-29 2020-08-29 Telephone NurseDrake [facility] 1.2.840.114 [id number] Univers 00:00:00 00:00:00 Urgent Care Health 350.1.13.10 ity of [facility] 4.2.7.2.686 Jaison as Specialti [phone] Tn luis alberto es 370 [facility] 2020-08-28 2020-08-28 [facility] 1.2.840.114 [id number] 15:21:38 23:59:00 Encounter [place] 350.1.13.10 [place] 4.2.7.2.686 [place] [id number] [facility] 2020-08-28 2020-08-28 [facility] 1.2.840.114 [id number] [facility] 15:21:38 23:59:00 Encounter [place] 350.1.13.10 ity of [place] 4.2.7.2.686 [facility] [phone] [facility] 807 [place] 2020-08-28 2020-08-28 [facility] 1.2.840.114 [id number] 14:13:24 15:23:42 Care [facility] 350.1.13.10 [place] 4.2.7.2.686 Professio [phone] nal [address] 2020-08-28 2020-08-28 [facility] 1.2.840.114 [id number] [facility] 14:13:24 15:23:42 Care [facility]y [facility] 350.1.13.10 ity of [place] 4.2.7.2.686 Jaison as Professio [phone] Tn luis alberto nal 044 [place] Office [address] [facility] 2020-08-28 2020-08-28 Outpatient R [facility] [id number] Univers 14:20:00 14:20:00 TOBY ity of [facility] 2020-08-27 2020-08-27 Routine Jv [facility] 1.2.840.114 [id number] 10:01:23 11:16:37 Roshunda R 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 350.1.13.10 Visit REGIONAL 4.2.7.2.686 MATERNAL [phone] & CHILD [address] [place] [address] 2020-08-27 2020-08-27 Routine Jv [facility] 1.2.840.114 [id number] Univers 10:01:23 11:16:37 Roshunda R 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 350.1.13.10 ity of Visit REGIONAL 4.2.7.2.686 Jaison as MATERNAL [id number] [facility] ical & CHILD [address] [place] [address] 2020-08-27 2020-08-27 Outpatient R JV [facility] [id number] Univers 09:00:00 09:00:00 ROSHUNDA ity o f [facility] 2020-08-27 2020-08-27 Orders Doctor KEARA 1.2.840.114 [id number] 00:00:00 00:00:00 Only Unassigned, CASI 350.1.13.10 [place] [facility] 4.2.7.2.686 [id number] [facility] 2020-08-27 2020-08-27 Orders Doctor KEARA 1.2.840.114 [id number] Univers 00:00:00 00:00:00 Only Unassigned, CASI 350.1.13.10 ity of [place] [facility] 4.2.7.2.686 Jaison as [phone] [address] 2020-08-19 2020-08-19 Manager Development 1, [facility] UNIVERSIT 1.2.840.11 4 [id number] 14:50:51 15:35:51 Visit [facility] Room Y HEALTH 350.1.13.10 CLINICS 4.2.7.2.686 [id number] 104 2020-08-19 2020-08-19 Manager Development 1, [facility] Room UNIVERSIT 1 .2.840.114 [id number] Univers 14:50:51 15:35:51 Visit María Haynes [facility] 350.1 .13.10 ity of CLINICS 4.2.7.2.686 [place] [id number] [facility] 104 [place] 2020-08-19 2020-08-19 Outpatient P [facility] [id number] Univers 14:15:00 14:15:00 ity [facility] 2020-08-11 2020-08-11 Outpatient P [facility] [id number] Univers 08:45:00 08:45:00 ity [facility] 2020-08-06 2020-08-06 Nurse KEARA Jiménez 1.2.928.981 [id number] 00:00:00 00:00:00 Triage Mike CASI 350.1.13.10 [facility] 4.2.7.2.686 [id number] [facility] 2020-08-06 2020-08-06 Nurse KEARA Jiménez 1.2.596.786 [id number] Univers 00:00:00 00:00:00 Triage Mike CASI 350.1.13.10 it y of HOSPITAL 4.2.7.2.686 Jaison as [id number] [address] 2020-08-06 2020-08-06 Telephone Jv [facility] 1.2.005.034 [id number] Univers 00:00:00 00:00:00 Rosbenjaminnda R 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 350.1.13.10 ity of REGIONAL 4.2.7.2.686 Jaison as MATERNAL [id number] Med ical & CHILD [address] [place] [address] 2020-07-30 2020-07-30 Routine [facility] 1.2.840.114 [id number] Univers 10:22:14 10:37:14 Rosbenjaminnda R 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 350.1.13.10 ity of Visit [facility] 4.2.7.2.686 Jaison as MATERNAL [phone] [facility] & CHILD [address] [place] [address] 2020-07-30 2020-07-30 Outpatient R JV [facility] [id number] Univers 10:15:00 10:15:00 ROSHUNDA ity o f [facility] 2020-07-21 2020-07-21 Outpatient R JV [facility] [id number] Univers 13:45:00 13:45:00 FELICITASNDA ity o f [facility] 2020-07-17 2020-07-17 Outpatient R JV [facility] [id number] Univers 09:00:00 09:00:00 FELICITASNDA rosalindisac o f [facility] 2020-07-14 2020-07-14 Manager Development Ultrasound, [facility] 1.2 .840.114 [id number] Univers 09:45:41 11:00:41 Visit Jordan Domingo 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 350.1.13.10 ity of REGIONAL 4.2.7.2.686 Jaison as MATERNAL [id number] [facility] & CHILD [address] [place] [address] 2020-07-14 2020-07-14 Outpatient P [facility] [id number] Univers 10:00:00 10:00:00 ity of [facility] 2020-07-14 2020-07-14 Case Laura [facility] 1.2.099.565 [id number] Univers 00:00:00 00:00:00 Management Nora Montoya 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 350.1.13.10 ity of REGIONAL 4.2.7.2.686 Jaison as MATERNAL [phone] [facility] & CHILD [address] [place] [address] 2020-07-01 2020-07-01 Routine Jv [facility] 1.2.840.114 [id number] Univers 13:52:00 14:58:28 Rosbenjaminzamzama R 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 350.1.13.10 ity of Visit REGIONAL 4.2.7.2.686 Jaison as MATERNAL [phone] [facility] & CHILD [address] [place] [address] 2020-07-01 2020-07-01 Outpatient R JV [facility] [id number] Univers 13:45:00 13:45:00 ROSBENJAMINNDA pinky o f [facility] 2020-07-01 2020-07-01 Telephone Jv [facility] 1.2.814.083 [id number] Univers 00:00:00 00:00:00 Roshunda R 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 350.1.13.10 ity of REGIONAL 4.2.7.2.686 Jaison as MATERNAL [id number] [facility] & [address] 2020-06-17 2020-06-17 Irma [facility] 1.2.840.114 [id number] Univers 08:48:55 09:25:15 Roshunda R 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 350.1.13.10 ity of Visit REGIONAL 4.2.7.2.686 Jaison as MATERNAL [id number] [address] 2020-06-17 2020-06-17 Outpatient Jocelyn CARIAS [facility] [id number] Univers 08:45:00 08:45:00 ROSHUNDA ity o f [facility] 2020-06-10 2020-06-10 Outpatient Jocelyn CARIAS [facility] [id number] Univers 15:45:00 15:45:00 ROSHUNDA ity o f [facility] 2020-06-03 2020-06-03 Emergency Da Silva, TRAUMA 1.2.148.767 [id number] Univers 20:19:00 22:12:00 [facility] 350.1.13.10 ity of [place]2.7.2.686 [place] [id number] [address] 2020-05-13 2020-05-13 Routine [facility] 1.2.840.114 [id number] Univers 09:59:20 10:14:20 Roshunda R 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 350.1.13.10 ity of Visit REGIONAL 4.2.7.2.686 Jaison as MATERNAL [id number] [facility] & [address] 2020-05-13 2020-05-13 Outpatient Jocelyn CARIAS [facility] [id number] Univers 10:00:00 10:00:00 ROSHUNDA ity o f [facility] 2020-05-06 2020-05-06 Outpatient Jocelyn CARIAS [facility] [id number] Univers 11:00:00 11:00:00 ROSHUNDA ity o f [facility] 2020-04-29 2020-04-29 Outpatient R [facility] [id number] Univers 10:45:00 10:45:00 DANY vance o f [facility] 2020-04-29 2020-04-29 Telephone Jv MECHARLINE 1.2.809.043 [id number] Univers 00:00:00 00:00:00 Felicitasjosué R 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 350.1.13.10 ity of [facility] 4.2.7.2.686 Jaison as MATERNAL [id number] [facility] ical & CHILD [address] [place] [address] 2020-04-22 2020-04-22 Nurse KEARA Garcia 1.2.840.114 [id number] Univers 00:00:00 00:00:00 Triage Lynn LANCE 350.1.13.10 i ty of [facility] 4.2.7.2.686 Jaison as [id number] [address] 2020-04-09 2020-04-09 Case Jv MECHARLINE 1.2.840.114 [id number] Univers 00:00:00 00:00:00 Management Dany R 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 350.1.13.10 ity of [facility] 4.2.7.2.686 Jaison as MATERNAL [id number] [facility] & CHILD [address] [place] [address] 2020-04-08 2020-04-08 Manager Development Ultrasound, [facility] 1.2 .840.114 [id number] Univers 11:32:55 12:14:18 Visit Tracey Jamil 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 350.1.13.10 ity of [facility] 4.2.7.2.686 Jaison as MATERNAL [id number] [facility] ical & CHILD 369 [facility] 2020-04-08 2020-04-08 Outpatient P [facility] [id number] Univers 11:30:00 11:30:00 ity of [facility] 2020-04-08 2020-04-08 Abstract Jv [facility] 1.2.840.114 [id number] Univers 00:00:00 00:00:00 Dany R 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 350.1.13.10 ity of [facility] 4.2.7.2.686 Jaison as MATERNAL [phone] [facility] ical & CHILD [address] [place] [address] 2020-04-02 2020-04-03 Emergency Ivlma [facility] 1.2.840.114 [id number] Univers 23:15:00 01:12:00 [facility] 350.1.13.10 it y of [facility] 4.2.7.2.686 [place] [facility] [phone] [address] ([facility]) 2020-04-02 2020-04-02 Telephone Carias [facility] 1.2.896.715 [id number] Univers 00:00:00 00:00:00 Rosbenjaminnda R 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 350.1.13.10 ity of [facility] 4.2.7.2.686 Jaison as MATERNAL [phone] [facility] & CHILD [address] [place] [address] 2020-04-02 2020-04-02 Telephone [facility] 1.2.560.639 [id number] Univers 00:00:00 00:00:00 Rosbenjaminnda R 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 350.1.13.10 ity of [facility] 4.2.7.2.686 Jaison as MATERNAL [phone] [facility] & CHILD [address] [place] [address] 2020-04-01 2020-04-01 Initial [facility] 1.2.840.114 [id number] Univers 09:25:04 11:05:29 Rosbenjaminnda R 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 350.1.13.10 ity of Visit [facility] 4.2.7.2.686 Jaison as MATERNAL [phone] [facility] ical & CHILD [address] [place] [address] 2020-04-01 2020-04-01 Outpatient R [facility] [id number] Univers 08:30:00 08:30:00 ity of [facility] 2020-04-01 2020-04-01 Orders Doctor SARAH 1.2.840.114 [id number] Univers 00:00:00 00:00:00 Only Unassigned, CASI 350.1.13.10 ity of [place] [facility] 4.2.7.2.686 Jaison as [phone] [facility] [address] 2019-12-18 2019-12-18 Outpatient R [facility] [id number] Univers 09:30:00 09:30:00 ity of [facility] 2019-09-26 2019-09-26 Patient [facility] [id number] [id number] Univers 00:00:00 00:00:00 Secure Msg W[place]iful [place] 350.1.13.10 [place] [phone] Tn dical count includes the [facility] [address] [facility] 2019-09-21 2019-09-21 [facility] [id number] Univers 11:10:44 23:59:00 Encounter Wondiful [place] 350.1.13.10 [place] [phone] [facility] [address] [place] [address] 2019-09-21 2019-09-21 [facility] [id number] Univers 11:00:00 11:09:00 Encounter W[place]iful [place] 350.1.13.10 [place] [phone] [facility] [address] [place] [address] 2019-09-21 2019-09-21 [facility] [id number] Univers 09:56:26 10:59:00 Encounter [place] 350.1.13.10 [place] [phone] [address] 2019-09-21 2019-09-21 [facility] [id number] Univers 00:00:00 00:00:00 WONDIFUL ity o f [facility] 2019-09-21 2019-09-21 [facility] 1.2.840.114 [id number] Univers 00:00:00 00:00:00 Management [place]iful [place] 350.1.13.10 [place] [phone] [facility] 044 [facility] 2019-09-21 2019-09-21 Patient Sandra [facility] 1.2.840.114 [id number] Univers 00:00:00 00:00:00 Secure Msg Wondiful [place] 350.1.13.10 [place] [phone] [address] 2019-09-20 2019-09-20 Laboratory Only, Adc Test [facility] 1.2.840. 114 [id number] Univers 10:01:43 10:16:43 Only Beaul[place], Kevan [place] 350.1.13.10 [place] [phone] [facility] [address] 2019-09-20 2019-09-20 Manager Development Naomi, Adc Lab Main [facility] 1.2.8 40.114 [id number] Univers 09:55:41 10:10:41 Visit Sandra Minoo [place] 350.1.13. 10 [place] [phone] [address] 2019-09-20 2019-09-20 Outpatient R SANDRA [facility] [id number] Univers 00:00:00 00:00:00 WONDIFUL ity o f [facility] 2019-09-20 2019-09-20 Orders Doctor KEARA 1.2.840.114 [id number] Univers 00:00:00 00:00:00 Only Unassigned, CASI 350.1.13.10 ity of [place] [facility] 4.2.7.2.686 Jaison as [phone] [facility] [address] 2019-09-19 2019-09-19 Telemedici Sandra [facility] 1.2.840.114 [id number] Univers 13:45:12 15:57:17 ne Visit Wondiful [place] 350.1.13.10 [place] [phone] [address] 2019-09-19 2019-09-19 Outpatient R SANDRA [facility] [id number] Univers 09:45:00 09:45:00 WONDIFUL ity o f [facility] 2019-09-19 2019-09-19 Telephone Sandra [facility] 1.2.840.114 [id number] Univers 00:00:00 00:00:00 Wondiful A Health 350.1.13.10 ity of [place] 4.2.7.2.686 [place] as Professio [phone] [facility] nal [address] [place] [address] Office [facility] 2019-09-14 2019-09-14 Urgent Pob1, Acute Care Clinic [facility] 1. 2.840.114 [id number] Univers 12:46:19 13:54:37 Care Anecharleen, Tyrese Health 350.1.13.10 ity of [place] 4.2.7.2.686 [place] as Professio [phone] [address] 2019-09-14 2019-09-14 [facility] [id number] Univers 13:00:00 13:00:00 TYRESE ity [facility] 2019-08-28 2019-08-28 Outpatient [facility] [id number] Univers 11:00:00 11:00:00 [facility] 2019-08-22 2019-08-24 Inpatient HCACL MALACHI [id number] [facility] 08:59:00 07:24:30 [facility] 2019-08-23 2019-08-23 Urgent Provider, Ang [facility] 1.2.840.114 [id number] Univers 15:07:25 16:34:23 Care Phuong [facility] 350.1.13.10 ity of [place] 4.2.7.2.686 [place] as Professio [phone] [address] Office [facility] 2019-08-23 2019-08-23 Outpatient R [facility] [id number] Univers 15:40:00 15:40:00 ity [facility] 2019-08-22 2019-08-22 Emergency Corazon, [facility] 1.2.785.036 [id number] Univers 14:16:15 16:10:00 Katye R Health 350.1.13.10 it y of [place] 4.2.7.2.[address] [place] [address] [phone] [facility] 014 [facility] ([facility]) 2019-08-22 2019-08-22 Nurse Nurse, V[facility] 1.2 .840.114 [id number] Univers 13:26:07 13:41:07 Visit Unknown, Attending SPECIALTY 350.1.13. 10 ity of CARE 4.2.7.2.[address] [place] [address] AT [phone] [facility] [address] [place] [address] 2019-08-22 2019-08-22 Outpatient R UNKNOWN, [facility] [id number] Univers 13:30:00 13:30:00 ATTENDING ity of [facility] 2019-08-22 2019-08-22 Telephone KEARA Rivera 1.2.840.114 [id number] Univers 00:00:00 00:00:00 Simba LANCE 350.1.13.10 it y of HOSPITAL 4.2.7.2.686 [place] as [phone] [facility] [address] 2019-08-19 2019-08-19 Emergency Miguel [facility] 1.2.840.114 [id number] Univers 21:26:07 21:27:00 Simba Vásquez 350.1.13.10 i ty of [place] 4.2.7.2.[address] [place] [address] [phone] [facility] [address] 2019-08-19 2019-08-19 Orders Doctor KEARA 1.2.840.114 [id number] Univers 00:00:00 00:00:00 Only UnassignedCASI 350.1.13.10 ity of [place] [facility] 4.2.7.2.686 Jaison as [phone] [facility] [address] Results Test Description Test Time Test Comments Results Result Comments Source POCT TEST 2021-12-18 20:37:00 Test Item Value Reference Range Interpretation Comme nts POCT PREG (test code = 1605) Negative On board controls acceptable with C Line (test code = 3574) Yes POCT PREG LOT # (test code = 3575) POCT PREG TEST DATE (test code = 3576) [id number] 20:37:00 Test Item Value Reference Range Interpretation Comments POCT PREG (test code = 1605) Negative On board controls acceptable with C Yes Line (test code = 3574) POCT PREG LOT # (test code = 3575) POCT PREG TEST DATE (test code = 3576) [facility] [id number] 20:37:00 Test Item Value Reference Range Interpretation Comments POCT PREG (test code = 1605) Negative On board controls acceptable with C Yes Line (test code = 3574) POCT PREG LOT # (test code = 3575) POCT PREG TEST DATE (test code = 3576) [facility] URINALYSIS W/O SPECIFIC [id number] 20:36:00 Test Item Value Reference Range Interpretation Comments POCT PH U (test code = 3254) 7 mg/dl 5-8 POCT U LEUK EST (test code = trace Negative - Negative 3263) POCT U NIT (test code = 3262) negative Negative - Negative POCT U PROT (test code = 3259) 1+ Negative - Negative POCT U GLU (test code = 3256) negative Negative - Negative POCT U KETONE (test code = 3258) negative Negative - Negative POCT U BLD (test code = 3257) trace Negative - Negative [facility] W/O SPECIFIC [id number] 20:36:00 Test Item Value Reference Range Interpretation Comments POCT PH U (test code = 3254) 7 mg/dl 5-8 POCT U LEUK EST (test code = trace Negative - Negative 3263) POCT U NIT (test code = 3262) negative Negative - Negative POCT U PROT (test code = 3259) 1+ Negative - Negative POCT U GLU (test code = 3256) negative Negative - Negative POCT U KETONE (test code = 3258) negative Negative - Negative POCT U BLD (test code = 3257) trace Negative - Negative [facility] W/O SPECIFIC [id number] 20:36:00 Test Item Value Reference Range Interpretation Comments POCT PH U (test code = 3254) 7 mg/dl 5-8 POCT U LEUK EST (test code = trace Negative - Negative 3263) POCT U NIT (test code = 3262) negative Negative - Negative POCT U PROT (test code = 3259) 1+ Negative - Negative POCT U GLU (test code = 3256) negative Negative - Negative POCT U KETONE (test code = 3258) negative Negative - Negative POCT U BLD (test code = 3257) trace Negative - Negative [facility] (COVID-19), RT-PCR/[id number] 15:19:39 Test Item Value Reference Interpretation Comments Range SARS-CoV-2 NEGATIVE SEE NOTE SARS-CoV-2 RNA NOT INTERPRETATION DETECTEDNegat brenden (test code = 44506) results do not preclude SARS-C oV-2 infection and s hould notbe used as t he sole basis for patie nt management deci sions. Negativeresults must be combined wit h clinical observ ations, patient history ,and epidemiological information. Op timum specimen types and timingfor peak viral levels during infections caus ed by SARS-CoV-2 have notbeen determi ronny. Collection of m ultiple specimens or ty pes ofspecimens may be necessary to de tect virus. Improper specimencollect ion and handling, seque nce variability und er primers/probes, or organism presen t below the limit of de tection may lead to falsenegative r esults. Positive and ne gative predictive valu es oftesting are h ighly dependent on prevalence. Fal se negative testre sults are more likely when prevalence is h igh. SOURCE (test code = NASOPHARYNGEAL Note: [place] [address]) Dannie Stefani [place] l-Time RT-PCR. The exp ected result or refer ence range is NEGATI VE (Not Detected). For more information reg arding COVID-19 testin g to include clinicalinforma tion, methodology det ail, intended use, F DA authorization andrecommended fact sheets for tierney ents or healthcare prov iders, see [employer] Announcement: SARS-CoV-2 (COV ID-19) by NAAT at URL below (note,fact shee ts are provided by met hod given in report:https:// www.[facility].com/clinic ians/cl ient-communicat ions/ Alternatively, see downloadable PD F fact sheet at:https://www. [employer] .com/COVID-19-R T-PCR UNLESS OTHERWIS E INDICATED, ALL TESTING PERFORMED [facility], [facility]. [address] [place] [address] LABOR ATORY DIRECTOR: OCTAVIANO GUZMAN M.D. CLIA NUMBER [id number] CAP ACCREDITATION N O. [id number] COMPREHENSIVE METABOLIC [id number] 10:12:00 Test Item Value Reference Range Interpretation [...] 20-125 N TOTAL (test code = ALKP) [id number] 10:12:00 Test Item Value Reference Range Interpretation [...] may jett y by method. COMPREHENSIVE METABOLIC [id number] 10:11:00 Test Item Value Reference Range Interpretation [...] TOTAL (test IUnit/L 20-125 code = ALKP) [id number] 10:11:00 Test Item Value Reference Range Interpretation [...] results may jett y by method. PROTHROMBIN [id number] 09:59:00 Test Item Value Reference Range Interpretation Comments PROTHROMBIN TIME 14.4 SECONDS 9.3-12.9 H PATIENT (test code = PTP) INTERNATIONAL NORMAL 1.3 0.8-1.2 H TARGE T INR BY RATIO (test code = INDICATIO [...] l Infarction (to prevent recurrent infar ct). [id number] 09:59:00 Test Item Value Reference Range Interpretation [...] TESTS AND APPROPRIATECLIN ICAL EUALUATIONS. CBC W/AUTO [id number] 09:56:00 Test Item Value Reference Range Interpretation [...] code = IFF) - XR CHEST 1 [id number] 09:56:00 FAX: Dallas Cain MD [phone] [place]: St: PRE Name: RAGHAVENDRA QUINN : 1985 Age/S: 34/F[address] Unit #: [id number] Loc: [place] [address] Phys: Dallas Cain MD Acct: [id number] Dis Date: Status: PRE ER PHONE #: [phone] Exam Date: 08/22/2019 1003 FAX #: [phone] Reason: Chest Pain EXAMS: CPT CODE: [id number] XR CHEST 1 V 41467 PROCEDURE: CHEST SINGLE VIEWINDICATION: Chest Pain COMPARISON: There are no previous relevant studies available for correlation.FINDINGS: The lungs are clear. No pleural abnormality. The cardiomediastinal silhouette is normal for projection. The bony thorax is intact. IMPRESSION: Normal radiograph. SL: [id number] Electronic ally Signed by Jesse Sousa on 08/22/2019 at 0956 Reported and signed by: Samson Sousa M.D. CC: Dallas Cain MD Technologist: RT Maddi(R) Trnscrd Date/Time/By: 08/22/2019 (0956) : By: AryKWL Orig Print D/T: S: 08/22/2019 (1005) PAGE 1 Signed Report
--- NOTE | 2022-02-05 14:01 | RAD REPORT ---
EXAM DESCRIPTION: Sima Rios And Polly (2 Views)02/05/2022 1:51 pm CLINICAL HISTORY: Cough COMPARISON: July 2021 FINDINGS: The lungs appear clear of acute infiltrate. The heart is normal size IMPRESSION: No acute abnormalities displayed
[2022-02-05 14:16] LABS: SARS-COV-2 RT PCR NEGATIVE (NEGATIVE)
--- NOTE | 2022-02-05 14:26 | ER ---
Nurse's Notes [facility] Name: Goyo Solorio Age: 37 yrs Sex: Female : 1985 Arrival Date: 02/05/2022 Time: 12:42 Bed Treatment Private MD: Diagnosis: Acute bronchitis, unspecified Presentation: 02/05 12:53 Chief complaint: Cough and sinus congestion x 1 week, dizziness since yesterday. hb Coronavirus screen: Client presents with at least one sign or symptom that may indicate coronavirus-19. Standard/surgical mask placed on the client. Provider contacted for isolation considerations. Ebola Screen: No symptoms or risks identified at this time. Initial Sepsis Screen: Does the patient meet any 2 criteria? No. Patient's initial sepsis screen is negative. Does the patient have a suspected source of infection? No. Patient's initial sepsis screen is negative. Risk Assessment: Do you want to hurt yourself or someone else? Patient reports no desire to harm self or others. Onset of symptoms was January 20, 2022. 12:53 Method Of Arrival: Ambulatory hb 12:53 Acuity: EUGENIO 4 hb Historical: - Allergies: 12:55 No Known Allergies; hb - PMHx: 12:55 Anxiety; panic attack; hb - PSHx: 12:55 Appendectomy; IUD removal; hb - Immunization history:: Adult Immunizations up to date. - Social history:: Smoking status: Patient denies any tobacco usage or history of. Vital Signs: 12:53 BP 119 / 85; Pulse 95; Resp 20; Temp 97.9; Pulse Ox 98% on R/A; Weight 81.65 kg; Height hb 5 ft. 1 in. (154.94 cm); Pain 0/10; 12:53 Body Mass Index 34.01 (81.65 kg, 154.94 cm) hb ED Course: 12:42 Patient arrived in ED. mr 12:47 Tess Roberto FNP-C is [facility]. kb 12:47 Edu Rucker MD is Attending Physician. kb 12:55 Triage completed. hb 12:55 Arm band placed on. hb 13:53 Chest Pa And Lat (2 Views) XRAY In Process Unspecified. EDMS Administered Medications: 14:44 Drug: Xopenex (levalbuterol) 1.25 mg Route: Inhalation; hb 14:44 Drug: AtroVENT (ipratropium) Aerosol 0.5 mg Route: Inhalation; hb Outcome: 14:25 Discharge ordered by . syeda 15:22 Patient left the ED. hb Signatures: Dispatcher [employer] EDTess Evangelista, KHUSHI LUCIANO-Lanie Lazo Heather, RN RN hb
--- NOTE | 2022-02-05 14:26 | EDPHYS ---
Physician Documentation [facility] Name: Goyo Solorio Age: 37 yrs Sex: Female : 1985 Arrival Date: 02/05/2022 Time: 12:42 Bed Treatment Private MD: ED Physician Edu Rucker HPI: 02/05 17:55 This 37 yrs old Female presents to ER via Ambulatory with complaints of Cough, kb Congestion, Dizziness. 17:55 The patient or guardian reports cough, that is intermittent, described as moderate. kb Onset: The symptoms/episode began/occurred 1 week(s) ago. Severity of symptoms: At their worst the symptoms were mild, moderate, in the emergency department the symptoms are unchanged. Modifying factors: The symptoms are alleviated by nothing, the symptoms are aggravated by nothing. Associated signs and symptoms: The patient has no apparent associated signs or symptoms. The patient has not experienced similar symptoms in the past. The patient has not recently seen a physician. Pt reports cough and congestion for one week. States she has coughing fits that make her dizzy. Historical: - Allergies: 12:55 No Known Allergies; hb - PMHx: 12:55 Anxiety; panic attack; hb - PSHx: 12:55 Appendectomy; IUD removal; hb - Immunization history:: Adult Immunizations up to date. - Social history:: Smoking status: Patient denies any tobacco usage or history of. ROS: 17:54 Constitutional: Negative for fever, chills, and weight loss. kb 17:54 ENT: Positive for sinus congestion. 17:54 Respiratory: Positive for cough. 17:54 All other systems are negative. Exam: 17:54 Constitutional: This is a well developed, well nourished patient who is awake, alert, kb and in no acute distress. Head/Face: Normocephalic, atraumatic. ENT: Moist Mucous membranes Cardiovascular: Regular rate and rhythm with a normal S1 and S2. No gallops, murmurs, or rubs. No pulse deficits. Respiratory: Respirations even and unlabored. No increased work of breathing. Talking in full sentences Abdomen/GI: Soft, non-tender. No distention Skin: Warm, dry with normal turgor. Normal color. MS/ Extremity: Pulses equal, no cyanosis. Neurovascular intact. Full, normal range of motion. Neuro: Awake and alert, GCS 15, oriented to person, place, time, and situation. Moves all extremities. Normal gait. Psych: Awake, alert, with orientation to person, place and time. Behavior, mood, and affect are within normal limits. 17:54 Respiratory: Breath sounds: + upper airway congestion. Vital Signs: 12:53 BP 119 / 85; Pulse 95; Resp 20; Temp 97.9; Pulse Ox 98% on R/A; Weight 81.65 kg; Height hb 5 ft. 1 in. (154.94 cm); Pain 0/10; 12:53 Body Mass Index 34.01 (81.65 kg, 154.94 cm) hb MDM: 12:58 Patient medically screened. kb 17:54 Data reviewed: vital signs, nurses notes. Data interpreted: Pulse oximetry: on room air kb is 98 %. Interpretation: normal. Counseling: I had a detailed discussion with the patient and/or guardian regarding: the historical points, exam findings, and any diagnostic results supporting the discharge/admit diagnosis, lab results, radiology results, the need for outpatient follow up, a family practitioner, to return to the emergency department if symptoms worsen or persist or if there are any questions or concerns that arise at home. 02/05 13:07 Order name: COVID-19/FLU A+B; Complete Time: 14:20 kb 02/05 13:07 Order name: Chest Pa And Lat (2 Views) XRAY; Complete Time: 14:09 kb Administered Medications: 14:44 Drug: Xopenex (levalbuterol) 1.25 mg Route: Inhalation; hb 14:44 Drug: AtroVENT (ipratropium) Aerosol 0.5 mg Route: Inhalation; hb Disposition: 18:42 Co-signature as Attending Physician, Edu Rucker MD. rn Disposition Summary: 02/05/22 14:25 Discharge Ordered Location: Home kb Condition: Stable kb Diagnosis - Acute bronchitis, unspecified kb Followup: kb - With: Emergency Department - When: As needed - Reason: Worsening of condition Followup: kb - With: Private Physician - When: 2 - 3 days - Reason: Recheck today's complaints, Continuance of care, Re-evaluation by your physician Discharge Instructions: - Discharge Summary Sheet kb - Acute Bronchitis, Adult, [id number]-zj-Aicp kb Forms: - Medication Reconciliation Form kb - Thank You Letter kb - Antibiotic Education kb - Prescription Opioid Use kb - Work release form eb Prescriptions: - albuterol sulfate 90 mcg/actuation Inhalation HFA aerosol inhaler - inhale 2 puff by INHALATION route every 4-6 hours As needed; 1 Inhaler; kb Refills: 0, Product Selection Permitted - Tessalon Perles 100 mg Oral Capsule - take 1 capsule by ORAL route every 8 hours As needed; 15 capsule; Refills: 0, kb Product Selection Permitted Signatures: Dispatcher [employer] Tess Lombardi, CHANGE CONTROL COORDINATOR-C MUSTAPHA-Edu Rosales MD MD rn Jodie Summers RN RN
[2022-02-05] MEDS ORDERED: LEVALBUTEROL 1.25 MG/3 ML NEB ONE (14:39)
[2022-02-05] MEDS ORDERED: IPRATROPIUM BROM 0.5MG/2.5ML ONE (14:40)
[2022-02-05 16:04] VITALS: BP 119/85; TEMP 97.9; O2SAT 98
== END 2022-02-05 15:22 | disposition home or self-care (01) ==
LOC: ER 12:41
DX: J20.9 Acute bronchitis, unspecified (principal); Z20.822 Contact with and (suspected) exposure to COVID-19
CPT/HCPCS: 0240U; 71046; 99284; J7614; J7644

== ENCOUNTER → 2023-02-13 | Emergency (ER) | payer OTHER, SELFPAY ==
[~2023-02-13] MED LIST: KETOROLAC 30 MG/ML INJ ONE
--- OUTSIDE RECORDS SUMMARY | 2023-02-13 10:50 | XMS REPORT | Continuity of Care Document ---
Author Name Unknown Address [address] [place] [address] [facility] Address [address] [place] [address] Care Team Providers Care Crane Ladle Person Name Role Phone [place] Attending Clinician Dany Knox Attending Clinician Doctor Unassigned, [place] Attending Clinician U navailable , [facility] Us Room Attending Clinician Vicki Jiménez RN, Mike Attending Clinician Unavail le Encounters Start Date/Time End Date/Time Encounter Type Admission Type Attending Clinicians Care Facility Care Department Encounter ID Source 2022-10-26 17:46:44 2022-10-26 17:46:44 Outpatient [facility] [id number] Colton Persaud 2020-08-28 15:21:38 2020-08-28 23:59:00 Hospital Encounter [place] [facility] [place] 1..840.114 350.1.13.10 4.2.7.2.686 [id number] 2020-08-28 14:13:24 2020-08-28 15:23:42 Urgent Care [place] Matthew [facility] [address] 1..840.114 350.1.13.10 4.2.7.2.686 [id number] 2020-08-27 10:01:23 2020-08-27 11:16:37 Routine Visit Dany Stephen [facility] CALCINER OPERATOR [facility] 1..114 350.1.13.10 4.2.7.2.686 [id number] 2020-08-27 00:00:00 2020-08-27 00:00:00 Orders Only Doctor Unassigned, [place] [facility] 1..114 350.1.13.10 4.2.7.2.686 [id number] 2020-08-19 14:50:51 2020-08-19 15:35:51 Nanofabrication Specialist Visit 1, [facility] 1..114 350.1.13.10 4.2.7.2.686 [id number] 2020-08-06 00:00:00 2020-08-06 00:00:00 Nurse Triage Mike Jiménez [facility] 1.114 350.1.13.10 4.2.7.2.686 [id number] Results Test Description Test Time Test Comments Results Result Co mments Source
--- NOTE | 2023-02-13 12:22 | ER ---
Nurse's Notes [facility] Name: Goyo Solorio Age: 38 yrs Sex: Female : 1985 Arrival Date: 02/13/2023 Time: 10:46 Bed 11 Private MD: Diagnosis: Acute tonsillitis, unspecified Presentation: 02/13 10:55 Chief complaint: Left ear pain that radiates to left neck and sore throat x 3 days. hb Coronavirus screen: At this time, the client does not indicate any symptoms associated with coronavirus-19. Ebola Screen: No symptoms or risks identified at this time. Initial Sepsis Screen: Does the patient meet any 2 criteria? No. Patient's initial sepsis screen is negative. Does the patient have a suspected source of infection? No. Patient's initial sepsis screen is negative. Risk Assessment: Do you want to hurt yourself or someone else? Patient reports no desire to harm self or others. Onset of symptoms was February 11, 2023. 10:55 Method Of Arrival: Ambulatory hb 10:55 Acuity: EUGENIO 4 hb Historical: - Allergies: 10:56 No Known Drug Allergies; hb - Home Meds: 10:57 None [Active]; hb - PMHx: 10:56 panic attack; Anxiety; hb - PSHx: 10:56 IUD removal; Appendectomy; hb - Immunization history:: Adult Immunizations up to date. - Social history:: Smoking status: Patient denies any tobacco usage or history of. Vital Signs: 10:55 BP 129 / 86; Pulse 100; Resp 16; Temp 98.2(TE); Pulse Ox 99% on R/A; hb ED Course: 10:49 Patient arrived in ED. im 10:51 Queenie Pichardo FNP is [facility] 10:51 Sean Del Cid MD is Attending Physician. jh7 10:56 Triage completed. hb 10:56 Arm band placed on. hb Administered Medications: 11:25 Drug: Ketorolac IM 60 mg IM once Route: IM; Site: right deltoid; hb Outcome: 12:21 Discharge ordered by . [facility] 12:59 Patient left the ED. Signatures: Jodie Summers RN RN Queenie Fernández FNP DIRECTOR OF MARKET INTELLIGENCE [facility] Sharla Barrett im
--- NOTE | 2023-02-13 12:22 | EDPHYS ---
Physician Documentation [facility] Name: Goyo Solorio Age: 38 yrs Sex: Female : 1985 Arrival Date: 02/13/2023 Time: 10:46 Bed 11 Private MD: ED Physician Sean Del Cid HPI: 02/13 10:56 This 38 yrs old Female presents to ER via Ambulatory with complaints of Ear jh7 Pain, Neck Swelling, Sore Throat. 10:56 The patient presents with pain, that is acute. The complaints affect the left ear. jh7 Onset: The symptoms/episode began/occurred yesterday. Associated signs and symptoms: Pertinent positives: sore throat, Pertinent negatives: cough, fever. 38-year-old female complains of left ear pain and sore throat since yesterday. Patient denies any fever. Reports that she experiences pain every time she swallows. Denies cough. No significant medical history.. Historical: - Allergies: 10:56 No Known Drug Allergies; hb - Home Meds: 10:57 None [Active]; hb - PMHx: 10:56 panic attack; Anxiety; hb - PSHx: 10:56 IUD removal; Appendectomy; hb - Immunization history:: Adult Immunizations up to date. - Social history:: Smoking status: Patient denies any tobacco usage or history of. ROS: 10:56 Constitutional: Negative for fever, chills, and weight loss, Neck: Negative for injury, jh7 pain, and swelling, Cardiovascular: Negative for chest pain, palpitations, and edema, Respiratory: Negative for shortness of breath, cough, wheezing, and pleuritic chest pain, Abdomen/GI: Negative for abdominal pain, nausea, vomiting, diarrhea, and constipation, Back: Negative for injury and pain, MS/Extremity: Negative for injury and deformity, Skin: Negative for injury, rash, and discoloration, Neuro: Negative for headache, weakness, numbness, tingling, and seizure, 10:56 ENT: Positive for ear pain, sore throat, Negative for rhinorrhea, sinus congestion, 10:56 All other systems are negative, Exam: 10:56 Constitutional: This is a well developed, well nourished patient who is awake, alert, jh7 and in no acute distress. Head/Face: Normocephalic, atraumatic. Neck: Trachea midline, no thyromegaly or masses palpated, and no cervical lymphadenopathy. Supple, full range of motion without nuchal rigidity, or vertebral point tenderness. No Meningismus. Cardiovascular: Regular rate and rhythm with a normal S1 and S2. No gallops, murmurs, or rubs. Normal PMI, no JVD. No pulse deficits. Respiratory: Lungs have equal breath sounds bilaterally, clear to auscultation and percussion. No rales, rhonchi or wheezes noted. No increased work of breathing, no retractions or nasal flaring. Abdomen/GI: Soft, non-tender, with normal bowel sounds. No distension or tympany. No guarding or rebound. No evidence of tenderness throughout. Skin: Warm, dry with normal turgor. Normal color with no rashes, no lesions, and no evidence of cellulitis. MS/ Extremity: Pulses equal, no cyanosis. Neurovascular intact. Full, normal range of motion. Neuro: Awake and alert, GCS 15, oriented to person, place, time, and situation. Motor strength 5/5 in all extremities. Sensory grossly intact. Normal gait. 10:56 ENT: External ear(s): are unremarkable, Ear canal(s): are normal, TM's: are normal, no evidence of bulging, no dullness, no erythema, Posterior pharynx: Tonsils: bilaterally enlarged, erythema, that is moderate, exudate, is not appreciated, Vital Signs: 10:55 BP 129 / 86; Pulse 100; Resp 16; Temp 98.2(TE); Pulse Ox 99% on R/A; hb MDM: 10:51 Patient medically screened. [facility] 12:25 Differential diagnosis: otitis media, otitis externa, ruptured TM, acute otalgia, Group jh7 A strep, acute pharyngitis, acute tonsillitis. Data reviewed: vital signs, nurses notes. I considered the following discharge prescriptions or medication management in the emergency department Medications were administered in the Emergency Department. See MAR. Counseling: I had a detailed discussion with the patient and/or guardian regarding the historical points, exam findings, and any diagnostic results supporting the discharge/admit diagnosis, to return to the emergency department if symptoms worsen or persist or if there are any questions or concerns that arise at home. 02/13 10:58 Order name: Strep [facility] 02/13 11:51 Order name: Throat Culture EDMS Administered Medications: 11:25 Drug: Ketorolac IM 60 mg IM once Route: IM; Site: right deltoid; hb Disposition Summary: 02/13/23 12:21 Discharge Ordered Notes: Location: Home [facility] Problem: new [facility] Symptoms: have improved [facility] Condition: Stable [facility] Diagnosis - Acute tonsillitis, unspecified [facility] Followup: [facility] - With: Private Physician - When: 2 - 3 days - Reason: Recheck today's complaints Discharge Instructions: - Discharge Summary Sheet [facility] - Tonsillitis [facility] Forms: - Medication Reconciliation Form [facility] - Thank You Letter [facility] - Antibiotic Education [facility] - Patient Portal Instructions [facility] - Leadership Thank You Letter [facility] Prescriptions: - cefdinir 300 mg Oral capsule - take 1 capsule ORAL route 2 times per day for 7 days; 14 capsule; Refills: 0, jh7 Product Selection Permitted Signatures: Dispatcher [employer] Jodie Jones RN RN Queenie Pichardo FNP [employer] CLERK [facility]
[2023-02-13 13:39] VITALS: BP 129/86; TEMP 98.2; O2SAT 99
== END ==
LOC: ER 10:46
DX: J03.90 Acute tonsillitis, unspecified (principal)
CPT/HCPCS: 87070; 87081; 96372; 99283

== ENCOUNTER → 2023-03-07 | Emergency (ER) | payer OTHER, SELFPAY ==
--- OUTSIDE RECORDS SUMMARY | 2023-03-07 08:22 | XMS REPORT | Continuity of Care Document ---
Author Name Unknown Address [address] [facility] [address]. [address] [place] [address] [facility] thconnect Address [address] [facility]. 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 Name Role Phone Zafar Dany LUCIANO Primary Care Physician Un available Deja Strong MA Attending Clinician Unavailabl TYRESE Pitts Attending Clinician Unavailable JARED COLLADO Attending Clinician Unavailable ANALISA SUAREZ Attending Clinician Unavail able Laura Joshua Attending Clinician [phone] Unknown, Attending Attending Clinician Unavailab LAURA Huntley Attending Clinician Unavailable DEE HUFFMAN Attending Clinician Unavailable Pgy3 Attending Clinician Unavailable Dee Huffman MD Attending Clinician [phone] Doctor Unassigned, Blyn Attending Clinician U Deja Waldrop CNM Attending Clinician DEJA ÁLVAREZ Attending Clinician Unavaila tonio Hedrick, [facility] Temp Attending Clinician Kia KHANH Mcarthur Attending Clinician Unavailable Phuong HUMANITIES PROFESSOR, Tyrese Attending Clinician [phone] Tobias HUMANITIES PROFESSOR, Jared Attending Clinician [phone] Daniela MISHRACNP, Analisa Hawkins Attending Clinician + Zafar HUMANITIES PROFESSOR, Dany R Attending Clinician [phone] DANY CARIAS R Attending Clinician Unavailab RAMÓN Trejo Attending Clinician Unavailable Yan QUINNC, Ramón Attending Clinician [phone] Pob, [facility] Main Attending Clinician Unavailtita Simon PNP, Shanita Call Attending Clinician [phone] Ramiro HERRERA, Janae Sunshine Attending Clinician Unavaila Manuel Torres Attending Clinician Unavailable Hien PACManuel Attending Clinician [phone] Lab, Ang - Db Attending Clinician Unavailable Shanon Beckham MD Attending Clinician [phone] Octavia HUMANITIES PROFESSOR, Oumar Attending Clinician [phone] OUMAR DUDLEY Attending Clinician UnavailAgatha KHANNANJuly Attending Clinician MARIA ISABEL Pagan Attending Clinician Unavailable Parviz HUMANITIES PROFESSOR, Maria Isabel Attending Clinician [phone] GABRIELLE MARTÍNEZ Attending Clinician Unavailable Gabrielle Dillard Attending Clinician + [phone] PAMELA PRESLEY Attending Clinician Unavailab brittany Presley HUMANITIES PROFESSOR, Pamela Short Attending Clinician [phone] GERTRUDE MILLAN Attending Clinician UnavailMINOO Garcia Attending Clinician Unavaila JAG Fay Attending Clinician Unavailable Jag Magana DO Attending Clinician [phone] JOB KASPER Attending Clinician Unavailable Job Kasper MD Attending Clinician [phone] JIMENA MAYO Attending Clinician Unavailable Carine Smith MD Attending Clinician [phone] NORA SANCHEZ Attending Clinician Unavailtita Sanchez HUMANITIES PROFESSOR, Nora Montoya Attending Clinician Roger HERRERA, Leidy Attending Clinician Unavailable Nurse, [facility] Attending Clinician Unava ilable Vipul HUMANITIES PROFESSOR, Paris Attending Clinician [phone] Toby Richards MD Attending Clinician [phone] TOBY RICHARDS Attending Clinician Unavailable 1, [facility] Room Attending Clinician Unavaila tonio Diego MD, Daniel Attending Clinician + Tino HERRERA, Mike Attending Clinician Unavailab le Ultrasound, [facility] [place] Attending Clinician Unavaila tonio Domingo MD, Jordan Salcedo Attending Clinician [phone], Julio Cortes Attending Clinician [phone] Radha HERRERA, Lynn Lemus Attending Clinician Unavailab brittany Jamil MD, Tracey Attending Clinician [phone] Vilma LEES, Yoshi Attending Clinician [phone] Sandra LEES, Minoo Lemus Attending Clinician [phone] Only, Adc Test Attending Clinician Unavailable Brittnee LEES, Kevan Attending Clinician [phone], [facility] Attending Clinician Unav ailMELODY Marin Attending Clinician Unavaila tonio Provider, [facility] Attending Clinician Un available Corazon HUMANITIES PROFESSOR, Kvng Banks Attending Clinician [phone] Nurse, s [facility]gent [facility] Attending Clinician Unava ilable UNKNOWN, ATTENDING Attending Clinician Unavailab brittany CARVALHOP, Simba Attending Clinician [phone] Manuel STANFORD Admitting Clinician Unavailable GABRIELLE MARTÍNEZ Admitting Clinician Unavailable JIMENA MAYO Admitting Clinician Unavailable Payers Payer Name Policy Type Policy Number Effective Date Expirati on Date Source [employer] MEDICAID [id number] 2019 00:00:00 [facility] [id number] 2016 00:00:00 MEDICAID PENDING PENDING 2019 00:00:00 Problems Condition Name Condition Details Condition Category Status Onset Date Resolution Date Last Treatment Date Treating Clinician Comments Source Urinary tract infection without hematuria, site unspecifie d Urinary tract infection without hematuria, site unspecifie d Disease Active 7-07 00:00: 00 [facility] Vaginal discharge Vaginal discharge Disease Active 6-23 00:00: 00 [facility] Dizziness Dizziness Disease Active 6-08 00:00: 00 [facility] Diverticul osis Diverticul osis Disease Active 5-20 00:00: 00 [facility] Screen for STD (sexually transmitte d disease) Screen for STD (sexually transmitte d disease) Disease Active 5-04 00:00: 00 [facility] Left arm pain Left arm pain Disease Active 4-22 00:00: 00 [facility] Herpes zoster without complicati on Herpes zoster without complicati on Disease Active 4-20 00:00: 00 [facility] Positive D dimer Positive D dimer Disease Active 4-20 00:00: 00 [facility] History of anxiety History of anxiety Disease Active 2- 00:00: 00 [facility] BMI 32.0-32.9, adult BMI 32.0-32.9, adult Disease Active 2-23 00:00: 00 [facility] Former smoker Former smoker Disease Active 2-23 00:00: 00 [facility] Chest pain, atypical Chest pain, atypical Disease Active 8-12 00:00: 00 [facility] Obesity (BMI 30-39.9) Obesity (BMI 30-39.9) Disease Active 09-28 00:00: 00 [facility] Absence of menstruati on Absence of menstruati on Disease Active 09-28 00:00: 00 [facility] Papanicola ou smear of cervix with low grade squamous intraepith elial lesion (LGSIL) Papanicola ou smear of cervix with low grade squamous intraepith elial lesion (LGSIL) Disease Active 7-24 00:00: 00 [facility] Allergies, Adverse Reactions, Alerts Allergy Name Allergy Type Status Severity Reaction(s) Onset Date Inactive Date Treating Clinician Comments Source No Known Allergie s DA Active U 7-15 00:00: 00 [facility] No Known Allergie s DA Active U 2012-02 0-06 00:00: 00 [facility] NO KNOWN ALLERGIE S Drug [facility] Social History Social Habit Start Date Stop Date Quantity Comments Source [facility]ION [facility] Exposure to SARS-CoV-2 (event) 2022-02-05 00:00:00 2022-02-15 18:53:00 Not sure [facility] History of Social function 2021-07-30 00:00:00 2021-07-30 00:00:00 [facility] Education 2020-11-25 00:00:00 2020-11-25 00:00:00 13 [facility] Alcohol Comment 2020-04-01 00:00:00 2020-04-01 00:00:00 socially [facility] History SDOH Alcohol Frequency 2020-04-01 00:00:00 2020-04-01 00:00:00 99 [facility] History SDOH Alcohol Std Drinks 2020-04-01 00:00:00 2020-04-01 00:00:00 99 [facility] History SDOH Alcohol Binge 2020-04-01 00:00:00 2020-04-01 00:00:00 99 [facility] Alcohol intake 2019-08-19 00:00:00 2019-08-19 00:00:00 Current drinker of alcohol (finding) [facility] Cigarettes smoked current (pack per day) - Reported 2016-09-28 00:00:00 2016-09-28 00:00:00 [facility] Cigarette pack-years 2016-09-28 00:00:00 2016-09-28 00:00:00 [facility] Tobacco use and exposure 2016-09-28 00:00:00 2016-09-28 00:00:00 Smokeless tobacco non-user [facility] History of tobacco use 2016-08-28 00:00:00 Cigarette Smoker [facility] Tobacco Comment 2014-08-23 00:00:00 2014-08-23 00:00:00 smokes 2 x per day. [facility] Sex Assigned At 1985 00:00:00 1985 00:00:00 [facility] Smoking Status Start Date Stop Date Source Ex-smoker 2016-09-28 00:00:00 2016-09-28 00[facility]00[facility]00 [facility] Ordered Medication Name Filled Medication Name Start Date Stop Date Current Medication? Ordering Clinician Indication Dosage Frequency Signature (SIG) Comments Components Source busPIRone 10 mg tablet 0 02-15 19:02: 28 Yes 10mg Take 10 mg by mouth as needed. [facility] busPIRone 10 mg tablet 0 02-15 19:02: 28 Yes 10mg Take 10 mg by mouth as needed. [facility] busPIRone 10 mg tablet 0 02-15 19:02: 28 Yes 10mg Take 10 mg by mouth as needed. [facility] busPIRone 10 mg tablet 02-15 19:02: 28 Yes 10mg Take 10 mg by mouth as needed. [facility] busPIRone 10 mg tablet 0 02-15 19:02: 28 Yes 10mg Take 10 mg by mouth as needed. [facility] busPIRone 10 mg tablet 0 02-15 19:02: 28 Yes 10mg Take 10 mg by mouth as needed. [facility] busPIRone 10 mg tablet 02-15 19:02: 28 Yes 10mg Take 10 mg by mouth as needed. [facility] busPIRone 10 mg tablet 0 02-15 19:02: 28 Yes 10mg Take 10 mg by mouth as needed. [facility] azithromyci n (ZITHROMAX Z-MARICHUY) 250 mg tablet 02-15 00:00: 00 Yes [id number] Z pack as directed [facility] azithromyci n (ZITHROMAX Z-MARICHUY) 250 mg tablet 02-15 00:00: 00 Yes [id number] Z pack as directed [facility] benzonatate 200 mg capsule 1-09 00:00: 00 02-26 05:59 :00 No [id number] 200mg Take 1 capsule by mouth 3 (three) times daily as needed for Cough for up to 10 days. [facility] albuterol 90 mcg/actuati on inhaler - 00:00: 00 02-26 05:59 :00 No [id number] 2{puff} Inhale 2 Puffs every 6 (six) hours as needed for Wheezing for up to 10 days. [facility] ampicillin 500 mg capsule 2021-02- 00:00: 00 Yes [id number] 500mg Take 1 capsule by mouth every 6 (six) hours. [facility] ampicillin 500 mg capsule 2021-02 00:00: 00 Yes [id number] 500mg Take 1 capsule by mouth every 6 (six) hours. [facility] ampicillin 500 mg capsule 2021-02- 00:00: 00 Yes [id number] 500mg Take 1 capsule by mouth every 6 (six) hours. [facility] ampicillin 500 mg capsule 2021-02 2 00:00: 00 Yes [id number] 500mg Take 1 capsule by mouth every 6 (six) hours. [facility] ampicillin 500 mg capsule 2021-02 2 00:00: 00 Yes [id number] 500mg Take 1 capsule by mouth every 6 (six) hours. [facility] ampicillin 500 mg capsule 2021-02 2- 00:00: 00 Yes [id number] 500mg Take 1 capsule by mouth every 6 (six) hours. [facility] ampicillin 500 mg capsule 2021-02 2- 00:00: 00 Yes [id number] 500mg Take 1 capsule by mouth every 6 (six) hours. [facility] ampicillin 500 mg capsule 2021-02 1-14 00:00: 00 01-01 05:59 :00 No [id number] 500mg Take 1 capsule by mouth every 6 (six) hours for 10 days. [facility] norethindro ne 0.35 mg tablet 2021-02 00:00: 00 Yes [id number] 1{tbl} Take 1 tablet by mouth in the morning. [facility] norethindro ne 0.35 mg tablet 2021-02 00:00: 00 Yes [id number] 1{tbl} Take 1 tablet by mouth in the morning. [facility] norethindro ne 0.35 mg tablet 2021-02 00:00: 00 Yes [id number] 1{tbl} Take 1 tablet by mouth in the morning. [facility] norethindro ne 0.35 mg tablet 2021-02 00:00: 00 Yes [id number] 1{tbl} Take 1 tablet by mouth in the morning. [facility] norethindro ne 0.35 mg tablet 2021-02 00:00: 00 Yes [id number] 1{tbl} Take 1 tablet by mouth in the morning. [facility] norethindro ne 0.35 mg tablet 2021-02 00:00: 00 Yes [id number] 1{tbl} Take 1 tablet by mouth in the morning. [facility] norethindro ne 0.35 mg tablet 2021-02 00:00: 00 Yes [id number] 1{tbl} Take 1 tablet by mouth in the morning. [facility] norethindro ne 0.35 mg tablet 2021-02 00:00: 00 Yes [id number] 1{tbl} Take 1 tablet by mouth in the morning. [facility] norethindro ne 0.35 mg tablet 2021-02 00:00: 00 Yes [id number] 1{tbl} Take 1 tablet by mouth in the morning. [facility] norethindro ne 0.35 mg tablet 2021-02 00:00: 00 Yes [id number] 1{tbl} Take 1 tablet by mouth in the morning. [facility] norethindro ne 0.35 mg tablet 2021-02 00:00: 00 Yes [id number] 1{tbl} Take 1 tablet by mouth in the morning. [facility] norethindro ne 0.35 mg tablet 2021-02 00:00: 00 Yes [id number] 1{tbl} Take 1 tablet by mouth in the morning. [facility] norethindro ne 0.35 mg tablet 2021-02 00:00: 00 Yes [id number] 1{tbl} Take 1 tablet by mouth in the morning. [facility] metroNIDAZO LE 500 mg tablet 2021-02 00:00: 00 12-26 05:59 :00 No [id number] 500mg Take 1 tablet by mouth in the morning and 1 tablet in the evening. Do all this for 7 days. [facility] metroNIDAZO LE 500 mg tablet 2021-02 00:00: 00 12-26 05:59 :00 No [id number] 500mg Take 1 tablet by mouth in the morning and 1 tablet in the evening. Do all this for 7 days. [facility] metroNIDAZO LE 500 mg tablet 2021-02 00:00: 00 12-26 05:59 :00 No [id number] 500mg Take 1 tablet by mouth in the morning and 1 tablet in the evening. Do all this for 7 days. [facility] metroNIDAZO LE 500 mg tablet 2021-02 00:00: 00 12-26 05:59 :00 No [id number] 500mg Take 1 tablet by mouth in the morning and 1 tablet in the evening. Do all this for 7 days. [facility] ampicillin 500 mg capsule 15 00:00: 00 09-01 04:59 :00 No [id number] 500mg Take 1 capsule by mouth 4 (four) times daily for 10 days. [facility] ampicillin 500 mg capsule 2021-0 7-15 00:00: 00 09-01 04:59 :00 No [id number] 500mg Take 1 capsule by mouth 4 (four) times daily for 10 days. [facility] ampicillin 500 mg capsule 2021-0 7-15 00:00: 00 09-01 04:59 :00 No [id number] 500mg Take 1 capsule by mouth 4 (four) times daily for 10 days. [facility] citalopram 10 mg tablet 2021-0 7-13 00:00: 00 Yes [id number] 10mg Take 1 tablet by mouth in the morning. [facility] citalopram 10 mg tablet 2021-0 7-13 00:00: 00 Yes [id number] 10mg Take 1 tablet by mouth in the morning. [facility] citalopram 10 mg tablet 2021-0 7-13 00:00: 00 Yes [id number] 10mg Take 1 tablet by mouth in the morning. [facility] citalopram 10 mg tablet 2021-0 7-13 00:00: 00 Yes [id number] 10mg Take 1 tablet by mouth in the morning. [facility] citalopram 10 mg tablet 2021-0 -13 00:00: 00 Yes [id number] 10mg Take 1 tablet by mouth in the morning. [facility] citalopram 10 mg tablet 2021-0 -13 00:00: 00 Yes [id number] 10mg Take 1 tablet by mouth in the morning. [facility] citalopram 10 mg tablet 2021-0 -13 00:00: 00 Yes [id number] 10mg Take 1 tablet by mouth in the morning. [facility] citalopram 10 mg tablet 2021-0 7-13 00:00: 00 Yes [id number] 10mg Take 1 tablet by mouth in the morning. [facility] citalopram 10 mg tablet 2-0 7-13 00:00: 00 Yes [id number] 10mg Take 1 tablet by mouth in the morning. [facility] citalopram 10 mg tablet 2-0 7-13 00:00: 00 Yes [id number] 10mg Take 1 tablet by mouth in the morning. [facility] citalopram 10 mg tablet 2-0 7-13 00:00: 00 Yes [id number] 10mg Take 1 tablet by mouth in the morning. [facility] citalopram 10 mg tablet 2022-0 7-13 00:00: 00 Yes [id number] 10mg Take 1 tablet by mouth in the morning. [facility] citalopram 10 mg tablet 2-0 7-13 00:00: 00 Yes [id number] 10mg Take 1 tablet by mouth in the morning. [facility] citalopram 10 mg tablet 2-0 7-13 00:00: 00 Yes [id number] 10mg Take 1 tablet by mouth in the morning. [facility] citalopram 10 mg tablet 2-0 7-13 00:00: 00 Yes [id number] 10mg Take 1 tablet by mouth in the morning. [facility] citalopram 10 mg tablet 2-0 7-13 00:00: 00 Yes [id number] 10mg Take 1 tablet by mouth in the morning. [facility] citalopram 10 mg tablet 2-0 7-13 00:00: 00 Yes [id number] 10mg Take 1 tablet by mouth in the morning. [facility] citalopram 10 mg tablet 2021-0 7-13 00:00: 00 Yes [id number] 10mg Take 1 tablet by mouth in the morning. [facility] ibuprofen 600 mg tablet 2-0 6-13 00:00: 00 Yes [id number] 600mg Take 1 tablet by mouth every 6 (six) hours as needed for Pain (scale 4-6). [facility] ibuprofen 600 mg tablet 2-0 6-13 00:00: 00 Yes [id number] 600mg Take 1 tablet by mouth every 6 (six) hours as needed for Pain (scale 4-6). [facility] ibuprofen 600 mg tablet 2-0 6-13 00:00: 00 Yes [id number] 600mg Take 1 tablet by mouth every 6 (six) hours as needed for Pain (scale 4-6). [facility] ibuprofen 600 mg tablet 2-0 6-13 00:00: 00 Yes [id number] 600mg Take 1 tablet by mouth every 6 (six) hours as needed for Pain (scale 4-6). [facility] ibuprofen 600 mg tablet 2-0 6-13 00:00: 00 Yes [id number] 600mg Take 1 tablet by mouth every 6 (six) hours as needed for Pain (scale 4-6). [facility] mg tablet 2021-0 6-13 00:00: 00 Yes [id number] 600mg Take 1 tablet by mouth every 6 (six) hours as needed for Pain (scale 4-6). [facility] ib[facility] 600 mg tablet 2021-0 6-13 00:00: 00 Yes [id number] 600mg Take 1 tablet by mouth every 6 (six) hours as needed for Pain (scale 4-6). [facility] 600 mg tablet 2021-0 6-13 00:00: 00 Yes [id number] 600mg Take 1 tablet by mouth every 6 (six) hours as needed for Pain (scale 4-6). [facility] ib[facility] 600 mg tablet 2021-0 6-13 00:00: 00 Yes [id number] 600mg Take 1 tablet by mouth every 6 (six) hours as needed for Pain (scale 4-6). [facility] ibuprofen 600 mg tablet 2021-0 13 00:00: 00 Yes [id number] 600mg Take 1 tablet by mouth every 6 (six) hours as needed for Pain (scale 4-6). [facility] ibuprofen 600 mg tablet 2021-0 -13 00:00: 00 Yes [id number] 600mg Take 1 tablet by mouth every 6 (six) hours as needed for Pain (scale 4-6). [facility] ibuprofen 600 mg tablet 2021-0 6-13 00:00: 00 Yes [id number] 600mg Take 1 tablet by mouth every 6 (six) hours as needed for Pain (scale 4-6). [facility] ibuprofen 600 mg tablet 2-0 6-13 00:00: 00 Yes [id number] 600mg Take 1 tablet by mouth every 6 (six) hours as needed for Pain (scale 4-6). [facility] ibuprofen 600 mg tablet 2-0 6-13 00:00: 00 Yes [id number] 600mg Take 1 tablet by mouth every 6 (six) hours as needed for Pain (scale 4-6). [facility] ibuprofen 600 mg tablet 0 13 00:00: 00 Yes [id number] 600mg Take 1 tablet by mouth every 6 (six) hours as needed for Pain (scale 4-6). [facility] ibuprofen 600 mg tablet 0 13 00:00: 00 Yes [id number] 600mg Take 1 tablet by mouth every 6 (six) hours as needed for Pain (scale 4-6). [facility] ibuprofen 600 mg tablet 0 13 00:00: 00 Yes [id number] 600mg Take 1 tablet by mouth every 6 (six) hours as needed for Pain (scale 4-6). [facility] ibuprofen 600 mg tablet 0 07-20 00:00: 00 Yes [id number] 600mg Take 1 tablet by mouth every 6 (six) hours as needed for Pain (scale 4-6). [facility] ibuprofen 600 mg tablet 0 07-20 00:00: 00 Yes [id number] 600mg Take 1 tablet by mouth every 6 (six) hours as needed for Pain (scale 4-6). [facility] ibuprofen 600 mg tablet 0 07-20 00:00: 00 Yes [id number] 600mg Take 1 tablet by mouth every 6 (six) hours as needed for Pain (scale 4-6). [facility] ibuprofen 600 mg tablet 0 13 00:00: 00 Yes [id number] 600mg Take 1 tablet by mouth every 6 (six) hours as needed for Pain (scale 4-6). [facility] ibuprofen 600 mg tablet 0 13 00:00: 00 Yes [id number] 600mg Take 1 tablet by mouth every 6 (six) hours as needed for Pain (scale 4-6). [facility] ibuprofen 600 mg tablet 0 13 00:00: 00 Yes [id number] 600mg Take 1 tablet by mouth every 6 (six) hours as needed for Pain (scale 4-6). [facility] busPIRone 10 mg tablet 2021-0 08 17:04: 42 Yes 10mg Take 10 mg by mouth as needed. [facility] busPIRone 10 mg tablet 2021-0 07-15 17:04: 42 Yes 10mg Take 10 mg by mouth as needed. [facility] busPIRone 10 mg tablet 0 07-15 17:04: 42 Yes 10mg Take 10 mg by mouth as needed. [facility] busPIRone 10 mg tablet 2021-0 07-15 17:04: 42 Yes 10mg Take 10 mg by mouth as needed. [facility] busPIRone 10 mg tablet 2021-0 07-15 17:04: 42 Yes 10mg Take 10 mg by mouth as needed. [facility] busPIRone 10 mg tablet 0 07-15 17:04: 42 Yes 10mg Take 10 mg by mouth as needed. [facility] busPIRone 10 mg tablet 2021-0 07-15 17:04: 42 Yes 10mg Take 10 mg by mouth as needed. [facility] busPIRone 10 mg tablet 2021-0 07-15 17:04: 42 Yes 10mg Take 10 mg by mouth as needed. [facility] busPIRone 10 mg tablet 0 07-15 17:04: 42 Yes 10mg Take 10 mg by mouth as needed. [facility] busPIRone 10 mg tablet 0 07-15 17:04: 42 Yes 10mg Take 10 mg by mouth as needed. [facility] busPIRone 10 mg tablet 2021-0 07-15 17:04: 42 Yes 10mg Take 10 mg by mouth as needed. [facility] busPIRone 10 mg tablet 2021-0 07-15 17:04: 42 Yes 10mg Take 10 mg by mouth as needed. [facility] busPIRone 10 mg tablet 2021-0 07-15 17:04: 42 Yes 10mg Take 10 mg by mouth as needed. [facility] busPIRone 10 mg tablet 2021-0 07-15 17:04: 42 Yes 10mg Take 10 mg by mouth as needed. [facility] busPIRone 10 mg tablet 07-15 17:04: 42 Yes 10mg Take 10 mg by mouth as needed. [facility] busPIRone 10 mg tablet 07-15 17:04: 42 Yes 10mg Take 10 mg by mouth as needed. [facility] vit 33-iron-fol ic-dha (SELECT-OB + DHA) 29 mg iron-1 mg -250 mg combo pack 08-27 00:00: 00 06-10 00:00 :00 No 1{packe t} Take 1 Packet by mouth daily. [facility] cyclobenzap rine 5 mg tablet 14 00:00: 00 04-01 00:00 :00 No [id number] 4 5mg Take 1 tablet by mouth 2 (two) times daily as needed for Muscle Spasms. Can cause drowsiness . [facility] gabapentin 100 mg capsule 09-18 00:00: 00 04-01 00:00 :00 No [id number] 100mg Take 1 capsule by mouth 3 (three) times daily as needed (nerve pain). [facility] Immunizations Ordered Immunization Name Filled Immunization Name Date Status Comments Source [facility] 2020-09-15 00:00:00 Completed [facility] TD[facility] 2020-09-15 00:00:00 Completed [facility] 2020-09-15 00:00:00 Completed [facility] TD[facility] 2020-09-15 00:00:00 Completed [facility] TD[facility] 2020-09-15 00:00:00 Completed [facility] 2020-09-15 00:00:00 [facility] [facility]-15 00:00:00 Completed [facility] TDAP 2020-09-15 00:00:00 Completed [facility] TDAP 2020-09-15 00:00:00 Completed [facility] TDAP 2020-09-15 00:00:00 Completed [facility] TDAP 2020-09-15 00:00:00 Completed [facility] TDAP 2020-09-15 00:00:00 Completed [facility] TDAP 2020-09-15 00:00:00 Completed [facility] TDAP 2020-09-15 00:00:00 Completed [facility] TDAP 2020-09-15 00:00:00 Completed [facility] TDAP 2020-09-15 00:00:00 Completed [facility] TDAP 2020-09-15 00:00:00 Completed [facility] TDAP 2020-09-15 00:00:00 Completed [facility] TDAP 2017-02-09 00:00:00 Completed [facility] TDAP 2017-02-09 00:00:00 Completed [facility] TDAP 2017-02-09 00:00:00 Completed [facility] TDAP 2017-02-09 00:00:00 Completed [facility] TDAP 2017-02-09 00:00:00 Completed [facility] TDAP 2017-02-09 00:00:00 Completed [facility] TDAP 2017-02-09 00:00:00 Completed [facility] TDAP 2017-02-09 00:00:00 Completed [facility] TDAP 2017-02-09 00:00:00 Completed [facility] TDAP 2017-02-09 00:00:00 Completed [facility] TDAP 2017-02-09 00:00:00 Completed [facility] TDAP 2017-02-09 00:00:00 Completed [facility] TDAP 2017-02-09 00:00:00 Completed [facility] TDAP 2017-02-09 00:00:00 Completed [facility] TDAP 2017-02-09 00:00:00 Completed [facility] TDAP 2017-02-09 00:00:00 Completed [facility] TDAP 2017-02-09 00:00:00 Completed [facility] TDAP 2017-02-09 00:00:00 Completed [facility] TDAP 2007-02-07 00:00:00 Completed [facility] TDAP 2007-02-07 00:00:00 Completed [facility] TDAP 2007-02-07 00:00:00 Completed [facility] TDAP 2007-02-07 00:00:00 Completed [facility] TDAP 2007-02-07 00:00:00 Completed [facility] TDAP 2007-02-07 00:00:00 Completed [facility] TDAP 2007-02-07 00:00:00 Completed [facility] TDAP 2007-02-07 00:00:00 Completed [facility] TDAP 2007-02-07 00:00:00 Completed [facility] TDAP 2007-02-07 00:00:00 Completed [facility] TDAP 2007-02-07 00:00:00 Completed [facility] TDAP 2007-02-07 00:00:00 Completed [facility] TDAP 2007-02-07 00:00:00 Completed [facility] TDAP 2007-02-07 00:00:00 Completed [facility] TDAP 2007-02-07 00:00:00 Completed [facility] TDAP 2007-02-07 00:00:00 Completed [facility] TDAP 2007-02-07 00:00:00 Completed [facility] TDAP 2007-02-07 00:00:00 Completed [facility] TDAP Unknown Completed [facility] TDAP Unknown Completed [facility] TDAP Unknown Completed [facility] TDAP Unknown Completed [facility] TDAP Unknown Completed [facility] TDAP Unknown Completed [facility] TDAP Unknown [facility]pleted [facility] TDAP Unknown Completed [facility] TDAP Unknown Completed [facility] TDAP Unknown Completed [facility] TDAP Unknown Completed [facility] TDAP Unknown Completed [facility] TDAP Unknown Completed [facility] TDAP Unknown Completed [facility] TDAP Unknown Completed [facility] TDAP Unknown Completed [facility] TDAP Unknown Completed [facility] TDAP Unknown Completed [facility] TDAP Unknown Completed [facility] TDAP Unknown Completed [facility] TDAP Unknown Completed [facility] TDAP Unknown Completed [facility] TDAP Unknown Completed [facility] TDAP Unknown Completed [facility] TDAP Unknown Completed [facility] TDAP Unknown Completed [facility] TDAP Unknown Completed [facility] TDAP Unknown Completed [facility] TDAP Unknown Completed [facility] TDAP Unknown Completed [facility] TDAP Unknown Completed [facility] TDAP Unknown Completed [facility] TDAP Unknown Completed [facility] Vital Signs Vital Name Observation Time Observation Value Comments S ource Systolic blood pressure 2022-02-16 01:01:00 124 mm[Hg] [facility] Diastolic blood pressure 2022-02-16 01:01:00 87 mm[Hg] [facility] Heart rate 2022-02-16 01:01:00 94 /min [facility] Body temperature 2022-02-16 01:01:00 37.33 Brigitte [facility] Respiratory rate 2022-02-16 01:01:00 17 /min [facility] Body height 2022-02-16 01:01:00 154.9 cm [facility] Body weight 2022-02-16 01:01:00 82.781 kg [facility] BMI 2022-02-16 01:01:00 34.48 kg/m2 [facility] Oxygen saturation in Arterial blood by Pulse oximetry 2022-02-16 01:01:00 100 /min [facility] Systolic blood pressure 2022-01-08 19:57:00 123 mm[Hg] [facility] Diastolic blood pressure 2022-01-08 19:57:00 78 mm[Hg] [facility] Heart rate 2022-01-08 19:57:00 103 /min [facility] Body temperature 2022-01-08 19:57:00 36 Brigitte [facility] Respiratory rate 2022-01-08 19:57:00 18 /min [facility] Body height 2022-01-08 19:57:00 154.9 cm [facility] Body weight 2022-01-08 19:57:00 82.056 kg [facility] BMI 2022-01-08 19:57:00 34.18 kg/m2 [facility] Systolic blood pressure 2021-12-18 20:33:00 110 mm[Hg] [place] [facility] Diastolic blood pressure 2021-12-18 20:33:00 70 mm[Hg] [place] [facility] Heart rate 2021-12-18 20:33:00 96 /min [facility] Body temperature 2021-12-18 20:33:00 36.56 Brigitte [facility] Respiratory rate 2021-12-18 20:33:00 17 /min [facility] Body height 2021-12-18 20:33:00 154.9 cm [facility] Body weight 2021-12-18 20:33:00 79.742 kg [facility] BMI 2021-12-18 20:33:00 33.22 kg/m2 [facility] Procedures Procedure Date / Time Performed Performing Clinician Source DISCLOSURE AND CONSENT, MEDICAL AND SURGICAL PROCEDURES 2022-01-08 06:01:00 Doctor Unassigned, Blyn [facility] HCV ANTIBODY 2021-12-18 21:53:00 [facility] 2021-12-18 21:53:00 Deja Álvarez [facility] HIV 1/2 AG-AB WITH REFLEX 2021-12-18 21:53:00 Deja Álvarez [facility] PAP SMEAR-LIQUID BASED-CP 2021-12-18 21:53:00 Deja Álvarez [facility] GALV ONLY - SYPHILIS IGG/IGM 2021-12-18 21:53:00 Deja Álvarez [facility] URINE CULTURE 2021-12-18 21:53:00 Deja Álvarez [facility] GC & CHLAMYDIA AMPLIFIED ASSAY 2021-12-18 21:53:00 Deja Álvarez [facility] HIGH RISK HPV-THIN PREP 2021-12-18 21:53:00 Deja Álvarez [facility] TRICHOMONAS AMPLIFIED ASSAY 2021-12-18 21:53:00 Deja Álvarez [facility] POCT TEST 2021-12-18 00:00:00 Nidhi Álvarez [facility] POCT URINALYSIS W/O SPECIFIC GRAVITY 2021-12-18 00:00:00 Deja Álvarez [facility] Encounters Start Date/Time End Date/Time Encounter Type Admission Type Attending [facility] Facility Care Department Encounter ID Source 2020-12-07 15:42:49 Emergency [facility] [id number] [facility] 2020-12-07 01:14:36 Emergency [facility] [id number] [facility] 2020-12-05 06:56:18 Emergency [facility] [id number] [facility] 2020-12-05 06:14:29 Emergency [facility] [id number] [facility] 2022-10-26 17:46:44 2022-10-26 17:46:[address] [facility] [id number] Colton Persaud 2022-09-01 00:00:00 2022-09-01 00:00:00 Telephone Deja Strong 1.2.840.114 350.1.13.10 4.2.7.2.686 [id number] [facility] 2022-04-16 14:00:00 2022-04-16 14:00:00 Outpatient TYRESE TURNER [facility] [id number] [facility] 2022-03-31 15:30:00 2022-03-31 15:30:00 Outpatient JARED DOUGLAS [facility] [id number] [facility] 2022-03-23 10:30:00 2022-03-23 10:30:00 Outpatient JARED DOUGLAS [facility] [id number] [facility] 2022-03-22 09:30:00 2022-03-22 09:30:00 Outpatient JARED DOUGLAS [facility] [id number] [facility] 2022-02-15 18:40:00 2022-02-15 19:00:00 Urgent Care Laura Lowe Unknown, Attending [facility] 1.840.114 350.1.13.10 4.2.7.2.686 [id number] [facility] 2022-02-15 18:40:00 2022-02-15 18:40:00 Outpatient R CHET LAURA [facility] [id number] [facility] 2022-01-08 13:30:00 2022-01-08 15:04:40 Outpatient R DEE HUFFMAN [facility] [id number] [facility] 2022-01-08 13:30:00 2022-01-08 15:04:40 Office Visit Pgy3 Dee Huffman [facility] 1.840.114 350.1.13.10 4.2.7.2.686 [id number] [facility] 2022-01-08 00:00:00 2022-01-08 00:00:00 Orders Only Doctor Unassigned, Blyn [facility] 1.0.114 350.1.13.10 4.2.7.2.686 [id number] [facility] 2022-01-07 00:00:00 2022-01-07 00:00:00 Case Management Deja Álvarez [facility] AQUATICS MANAGER [facility] 1.0.114 350.1.13.10 4.2.7.2.686 [id number] [facility] 2022-01-07 00:00:00 2022-01-07 00:00:00 Telephone Deja Álvarez [facility] AQUATICS MANAGER [facility] 1.840.114 350.1.13.10 4.2.7.2.686 [id number] [facility] 2022-01-05 00:00:2022-01-05 00:00:00 Refill Deja Álvarez [facility] AQUATICS MANAGER [facility] 1.2.840.114 350.1.13.10 4.2.7.2.686 [id number] [facility] 2021-12-21 00:00:00 2021-12-21 00:00:00 Case Management Deja Álvarez [facility] AQUATICS MANAGER [facility] 1.2.840.114 350.1.13.10 4.2.7.2.686 [id number] [facility] 2021-12-18 14:15:00 2021-12-18 15:30:31 Outpatient DEJA YOUSIF [facility] [id number] [facility] 2021-12-18 14:15:00 2021-12-18 15:30:31 Office Visit Provider, Drake-Rmchp Temp Deja Álvarez [facility] AQUATICS MANAGER [facility] 1.2.840.114 350.1.13.10 4.2.7.2.686 [id number] [facility] 2021-09-28 11:00:00 2021-09-28 11:00:00 Outpatient JARED DOUGLAS [facility] [id number] [facility] 2021-09-24 13:45:00 2021-09-24 13:45:00 Outpatient KHANH PATEL [facility] [id number] [facility] 2021-09-18 09:30:00 2021-09-18 09:30:00 Outpatient TYRESE TURNER [facility] [id number] [facility] 2021-09-01 15:30:00 2021-09-01 15:30:00 Outpatient JARED DOUGLAS [facility] [id number] [facility] 2021-08-28 00:00:00 2021-08-28 00:00:00 Patient Secure Msg Tyrese Baca [facility] 1.114 350.1.13.10 4.2.7.2.686 [id number] [facility] 2021-08-24 00:00:00 2021-08-24 00:00:00 Abstract Jared Collado [facility] 1.114 350.1.13.10 4.2.7.2.686 [id number] [facility] 2021-08-21 00:00:00 2021-08-21 00:00:00 Telephone Analisa Suarez [facility] AQUATICS MANAGER [facility] 1..114 350.1.13.10 4.2.7.2.686 [id number] [facility] 2021-08-19 16:00:00 2021-08-19 16:00:00 Outpatient R JARED COLLADO [facility] [id number] [facility] 2021-08-19 00:00:00 2021-08-19 00:00:00 Refill Jared Collado [facility] 1.114 350.1.13.10 4.2.7.2.686 [id number] [facility] 2021-08-19 00:00:00 2021-08-19 00:00:00 Refill Dany Carias [facility] AQUATICS MANAGER [facility] 1.114 350.1.13.10 4.2.7.2.686 [id number] [facility] 2021-08-19 00:00:00 2021-08-19 00:00:00 Refill Doctor Unassigned, Blyn [facility] 1.114 350.1.13.10 4.2.7.2.686 [id number] [facility] 2021-08-17 00:00:00 2021-08-17 00:00:00 Patient Secure Dany Anton [facility] AQUATICS MANAGER [facility] 1.840.114 350.1.13.10 4.2.7.2.686 [id number] [facility] 2021-08-13 14:15:00 2021-08-13 16:02:04 Outpatient R CARIASDANY [facility] [id number] [facility] 2021-08-13 14:15:00 2021-08-13 16:02:04 Office Visit CariasDany [facility] AQUATICS MANAGER [facility] .840.114 350.1.13.10 4.2.7.2.686 [id number] [facility] 2021-08-13 14:15:00 2021-08-13 14:15:00 Outpatient R CARIASDANY [facility] [id number] [facility] 2021-08-12 00:00:00 2021-08-12 00:00:00 Patient Secure Msg Carias Dany [facility] AQUATICS MANAGER [facility] .840.114 350.1.13.10 4.2.7.2.686 [id number] [facility] 2021-08-07 16:00:00 2021-08-07 16:00:00 Outpatient JARED DOUGLAS [facility] [id number] [facility] 2021-08-04 00:00:00 2021-08-04 00:00:00 Telephone CariasDany [facility] AQUATICS MANAGER [facility] ..840.114 350.1.13.10 4.2.7.2.686 [id number] [facility] 2021-08-04 00:00:00 2021-08-04 00:00:00 Patient Secure Jared Collado [facility] 1.2.840.114 350.1.13.10 4.2.7.2.686 [id number] [facility] 2021-08-04 00:00:00 2021-08-04 00:00:00 Patient Secure Msg Dany Carias [facility] AQUATICS MANAGER [facility] 1.2.840.114 350.1.13.10 4.2.7.2.686 [id number] [facility] 2021-08-03 00:00:00 2021-08-03 00:00:00 Telephone Dany Carias [facility] AQUATICS MANAGER [facility] 1.2.840.114 350.1.13.10 4.2.7.2.686 [id number] [facility] 2021-08-03 00:00:00 2021-08-03 00:00:00 Patient Secure g Dany Carias [facility] AQUATICS MANAGER [facility] 1.2.840.114 350.1.13.10 4.2.7.2.686 [id number] [facility] 2021-08-03 00:00:00 2021-08-03 00:00:00 Patient Secure g Dany Carias [facility] AQUATICS MANAGER [facility] 1.2.840.114 350.1.13.10 4.2.7.2.686 [id number] [facility] 2021-07-31 11:30:00 2021-07-31 11:30:00 Outpatient R JARED COLLADO [facility] [id number] [facility] 2021-07-30 15:45:00 2021-07-30 16:31:25 Outpatient R DANY CARIAS [facility] [id number] [facility] 2021-07-30 15:45:00 2021-07-30 16:31:25 Office Visit Dany Carias Jocelyn [facility] AQUATICS MANAGER [facility] 1..840.114 350.1.13.10 4.2.7.2.686 [id number] [facility] 2021-07-29 13:30:00 2021-07-29 13:30:00 Outpatient R ELDAMariah JARED [facility] [id number] [facility] 2021-07-29 00:00:00 2021-07-29 00:00:00 Patient Secure Msg Doctor Unassigned, Blyn [facility] 1..840.114 350.1.13.10 4.2.7.2.686 [id number] [facility] 2021-07-29 00:00:00 2021-07-29 00:00:00 Patient Secure g Jared Collado [facility] 1.2.840.114 350.1.13.10 4.2.7.2.686 [id number] [facility] 2021-07-28 16:30:00 2021-07-28 17:03:47 Outpatient R RAMÓN HUDSON [facility] [id number] [facility] 2021-07-28 16:30:00 2021-07-28 17:03:47 Office Visit Yan Ramón [facility] 1.2.840.114 350.1.13.10 4.2.7.2.686 [id number] [facility] 2021-07-28 16:45:00 2021-07-28 17:00:00 Doctor Of Dental Surgery Visit Pob, Adc Lab Main Ramón Hudson [facility] N[facility] BUILD[facility] 1.114 350.1.13.10 4.2.7.2.686 [id number] [facility] 2021-07-28 16:45:00 2021-07-28 16:45:00 Outpatient RAMÓN PAN [facility] [id number] [facility] 2021-07-28 00:00:00 2021-07-28 00:00:00 Telephone Shanita Simon [facility] AQUATICS MANAGER [facility] 1..114 350.1.13.10 4.2.7.2.686 [id number] [facility] 2021-07-28 00:00:00 2021-07-28 00:00:00 Orders Only Doctor Unassigned, Blyn [facility] 1..114 350.1.13.10 4.2.7.2.686 [id number] [facility] 2021-07-25 00:00:00 2021-07-25 00:00:00 Nurse Triage Janae Rubio [facility] 1..114 350.1.13.10 4.2.7.2.686 [id number] [facility] 2021-07-22 14:30:00 2021-07-22 14:30:00 Outpatient R JARED COLLADO [facility] [id number] [facility] 2021-07-21 00:00:00 2021-07-21 00:00:00 Telephone Jared Collado [facility] 1.84.114 350.1.13.10 4.2.7.2.686 [id number] [facility] 2021-07-21 00:00:00 2021-07-21 00:00:00 Patient Secure Jared Salmon [facility] 1.84114 350.1.13.10 4.2.7.2.686 [id number] [facility] 2021-07-20 16:13:00 2021-07-20 17:36:00 Emergency X Manuel ST[place] E[facility] [id number] [facility] 2021-07-20 16:13:00 2021-07-20 17:36:00 Emergency Manuel Stanford [facility] 1.114 350.1.13.10 4.2.7.2.686 [id number] [facility] 2021-07-20 15:45:00 2021-07-20 16:00:00 Doctor Of Dental Surgery Visit Lab, Shanon Tariq Brittany [facility] 1.84.114 350.1.13.10 4.2.7.2.686 [id number] [facility] 2021-07-20 15:20:00 2021-07-20 15:44:36 Outpatient R OUMAR DUDLEY [facility] [id number] [facility] 2021-07-20 15:20:00 2021-07-20 15:44:36 Urgent Care Oumar Dudley Amanda [facility] 1.84.114 350.1.13.10 4.2.7.2.686 [id number] [facility] 2021-07-17 00:00:00 2021-07-17 00:00:00 Patient Secure July Julian [facility] 1.84114 350.1.13.10 4.2.7.2.686 [id number] [facility] 2021-07-17 00:00:00 2021-07-17 00:00:00 Patient Secure [facility] 1.2.840.114 350.1.13.10 4.2.7.2.686 [id number] [facility] 2021-07-16 14:15:00 2021-07-16 14:41:18 Doctor Of Dental Surgery Visit Lab, Jared Rock [facility] 1.2.840.114 350.1.13.10 4.2.7.2.686 [id number] [facility] 2021-07-16 14:15:00 2021-07-16 14:30:00 Doctor Of Dental Surgery Visit Lab, Drake [facility] 1.2.840.114 350.1.13.10 4.2.7.2.686 [id number] [facility] 2021-07-16 14:15:00 2021-07-16 14:15:00 Outpatient R JARED COLLADO [facility] [id number] [facility] 2021-07-15 15:30:00 2021-07-15 15:45:00 Doctor Of Dental Surgery Visit Lab, Jared Rock [facility] 1.2.840.114 350.1.13.10 4.2.7.2.686 [id number] [facility] 2021-07-15 14:00:00 2021-07-15 15:22:50 Outpatient R JARED COLLADO [facility] [id number] [facility] 2021-07-15 14:00:00 2021-07-15 15:22:50 Office Visit Jared Collado [facility] 1..840.114 350.1.13.10 4.2.7.2.686 [id number] [facility] 2021-07-15 14:00:00 2021-07-15 15:22:50 Outpatient R ELDAJARED Lemus [facility] [id number] [facility] 2021-07-15 14:00:00 2021-07-15 15:22:50 Outpatient R ELDAJARED Lemus [facility] [id number] [facility] 2021-07-13 08:30:00 2021-07-13 08:30:00 Outpatient R DANY CARIAS [facility] [id number] [facility] 2021-07-13 08:30:00 2021-07-13 08:30:00 Outpatient R DANY CARIAS [facility] [id number] [facility] 2021-07-11 14:20:00 2021-07-11 15:10:05 Outpatient R MARIA ISABEL MARSHALL [facility] [id number] [facility] 2021-07-11 14:20:00 2021-07-11 15:10:05 Urgent Care [facility] 1..840.114 [id number] [facility] 2021-07-06 00:00:00 2021-07-06 00:00:00 Patient Secure Msg Doctor Unassigned, [facility] 1..840.114 [id number] [facility] 2021-06-30 14:30:00 2021-06-30 15:41:19 Outpatient R ANALISA SUAREZ [facility] [id number] [facility] 2021-06-30 14:30:00 2021-06-30 15:41:19 Office Visit Brandonarron Analisa Hawkins [facility] AQUATICS MANAGER [facility] 1.2.840.114 350.1.13.10 4.2.7.2.686 [id number] [facility] 2021-06-30 00:00:00 2021-06-30 00:00:00 Letter (Out) Analisa Suarez Shruthi [facility] AQUATICS MANAGER [facility] 1.2.840.114 350.1.13.10 4.2.7.2.686 [id number] [facility] 2021-06-26 15:45:00 2021-06-26 16:00:00 Doctor Of Dental Surgery Visit Lab, Drake Baca [facility] 1.2.840.114 350.1.13.10 4.2.7.2.686 [id number] [facility] 2021-06-26 14:30:00 2021-06-26 15:40:40 [facility] [id number] [facility] 2021-06-26 14:30:00 2021-06-26 15:40:40 Office Visit Phuong [facility]ly [facility] 1.2.840.114 350.1.13.10 4.2.7.2.686 [id number] [facility] 2021-06-26 00:00:00 2021-06-26 00:00:00 Telephone Dany Carias [facility] 1.2.840.114 350.1.13.10 4.2.7.2.686 [id number] [facility] 2021-06-25 14:30:00 2021-06-25 14:30:00 Outpatient DANY THOMPSON [facility] [id number] [facility] 2021-06-25 14:30:00 2021-06-25 14:30:00 Outpatient DANY THOMPSON [facility] [id number] [facility] 2021-06-22 15:30:00 2021-06-22 15:30:00 Outpatient JARED DOUGLAS [facility] [id number] [facility] 2021-06-22 15:30:00 2021-06-22 15:30:00 Outpatient JARED DOUGLAS [facility] [id number] [facility] 2021-06-18 00:00:00 2021-06-18 00:00:00 Patient Secure MsArleth BalderramaCritical access hospital?[facility] 1.2.840.114 350.1.13.10 4.2.7.2.686 [id number] [facility] 2021-06-16 15:30:00 2021-06-16 15:45:00 Doctor Of Dental Surgery Visit Lab, Drake Baca [facility] 1.2.840.114 350.1.13.10 4.2.7.2.686 [id number] [facility] 2021-06-16 14:30:00 2021-06-16 15:22:44 Outpatient TYRESE TURNER [facility] [id number] [facility] 2021-06-16 14:30:00 2021-06-16 15:22:44 Office Visit Florcharleen [facility] 1.2.840.114 350.1.13.10 4.2.7.2.686 [id number] [facility] 2021-06-12 13:45:00 2021-06-12 14:00:00 Office Visit Akinsipe Analisa HAGER AQUATICS MANAGER [facility] 1.2.840.114 350.1.13.10 4.2.7.2.686 [id number] [facility] 2021-06-12 13:45:00 2021-06-12 13:45:00 Outpatient R ANALISA SUAREZ RICHARLINE [facility] [id number] [facility] 2021-06-12 13:45:00 2021-06-12 13:45:00 Outpatient R ANALISA SUAREZ [facility] [id number] [facility] 2021-06-12 00:00:00 2021-06-12 00:00:00 Patient Secure Msg Analisa Suarez RICHARLINE AQUATICS MANAGER [facility] 1.2.840.114 350.1.13.10 4.2.7.2.686 [id number] [facility] 2021-06-11 00:00:00 2021-06-11 00:00:00 Telephone Analisa Suarez RICHARLINE AQUATICS MANAGER [facility] 1.2.840.114 350.1.13.10 4.2.7.2.686 [id number] [facility] 2021-06-10 13:30:00 2021-06-10 14:41:56 Office Visit Analisa Suarez AQUATICS MANAGER [facility] 1.2.840.114 350.1.13.10 4.2.7.2.686 [id number] [facility] 2021-06-10 13:30:00 2021-06-10 14:41:56 Outpatient R ANALISA SUAREZ [facility] [id number] [facility] 2021-06-10 13:30:00 2021-06-10 13:30:00 Outpatient R ANALISA SUAREZ [facility] [id number] [facility] 2021-06-08 15:30:00 2021-06-08 15:30:00 Outpatient R TYRESE BACA [facility] [id number] [facility] 2021-06-08 15:30:00 2021-06-08 15:30:00 Outpatient R TYRESE BACA [facility] [id number] [facility] 2021-06-02 14:30:00 2021-06-02 15:12:53 Outpatient R TYRESE BACA [facility] [id number] [facility] 2021-06-02 14:30:00 2021-06-02 15:12:53 [facility] 1.2.840.114 350.1.13.10 4.2.7.2.686 [id number] [facility] 2021-06-02 14:30:00 2021-06-02 15:12:53 Outpatient R TYRESE BACA [facility] [id number] [facility] 2021-06-02 14:30:00 2021-06-02 14:30:00 Outpatient R TYRESE BACA [facility] [id number] [facility] 2021-05-29 14:00:00 2021-05-29 14:30:00 Office Visit Tobias [facility] 1.2.840.114 350.1.13.10 4.2.7.2.686 [id number] [facility] 2021-05-29 14:00:00 2021-05-29 14:00:00 Outpatient R TOBIASJARED [facility] [id number] [facility] 2021-05-29 09:30:00 2021-05-29 09:30:00 Outpatient R TYRESE BACA [facility] [id number] [facility] 2021-05-28 00:00:00 2021-05-28 00:00:00 Telephone [facility] 1.2840.114 350.1.13.10 4.2.7.2.686 [id number] [facility] 2021-05-27 09:15:00 2021-05-27 09:30:00 Doctor Of Dental Surgery Visit Lab, Drake - Damon SchroederJared lemus [facility] 1.20.114 350.1.13.10 4.2.7.2.686 [id number] [facility] 2021-05-27 09:15:00 2021-05-27 09:15:00 Outpatient R TOBIASJARED [facility] [id number] [facility] 2021-05-27 08:30:00 2021-05-27 09:00:00 Office Visit EldaJared lemus [facility] 1..114 350.1.13.10 4.2.7.2.686 [id number] [facility] 2021-05-27 08:30:00 2021-05-27 08:30:00 Outpatient R ELDAJARED Lemus [facility] [id number] [facility] 2021-05-27 00:00:00 2021-05-27 00:00:00 Letter (Out) TobiasJared [facility] 1..114 350.1.13.10 4.2.7.2.686 [id number] [facility] 2021-05-27 00:00:00 2021-05-27 00:00:00 Telephone Jared Collado [facility] 1.2.114 350.1.13.10 4.2.7.2.686 [id number] [facility] 2021-05-27 00:00:00 2021-05-27 00:00:00 Telephone Jared Collado [facility] 1.84.114 350.1.13.10 4.2.7.2.686 [id number] [facility] 2021-05-23 01:00:00 2021-05-23 06:13:00 Emergency X GABRIELLE MARTÍNEZ [facility] E[facility] [id number] [facility] 2021-05-23 01:00:00 2021-05-23 06:13:00 Emergency Gabrielle Martínez R [facility] 1..114 350..13.10 4.2.7.2.686 [id number] [facility] 2021-05-23 01:00:00 2021-05-23 06:13:00 Emergency X GABRIELLE MARTÍNEZ [facility] E[facility] [id number] [facility] 2021-05-22 16:00:00 2021-05-22 16:00:00 Outpatient R PAMELA PRESLEY [facility] [id number] [facility] 2021-05-22 14:20:00 2021-05-22 15:02:37 Outpatient R GREGG PRESLEYBERLY [facility] [id number] [facility] 2021-05-22 14:20:00 2021-05-22 15:02:37 Urgent Care Pamela Presley [facility] 1.84.114 350.1.13.10 4.2.7.2.686 [id number] [facility] 2021-05-15 00:00:00 2021-05-15 00:00:00 Orders Only Doctor Unassigned, Blyn [facility] 1.114 350.1.13.10 4.2.7.2.686 [id number] [facility] 2021-05-04 15:30:00 2021-05-04 15:30:00 Outpatient R GERTRUDE MILLAN [facility] [id number] [facility] 2021-05-04 15:30:00 2021-05-04 15:30:00 Outpatient R GERTRUDE MILLAN [facility] [id number] [facility] 2021-05-01 13:00:00 2021-05-01 13:00:00 Outpatient R SANDRA JOSEJUAN CENEDINA [facility] [id number] [facility] 2021-05-01 13:00:00 2021-05-01 13:00:00 Outpatient R MINOO FLORES [facility] [id number] [facility] 2021-04-30 16:30:00 2021-04-30 17:15:50 Outpatient R TYRESE BACA [facility] [id number] [facility] 2021-04-30 16:30:00 2021-04-30 17:15:50 Office Visit Tyrese Baca [facility] 1.2.840.114 350.1.13.10 4.2.7.2.686 [id number] [facility] 2021-04-29 18:59:00 2021-04-29 20:20:00 Emergency X JAG MAGANA [facility] ERT [id number] [facility] 2021-04-29 18:59:00 2021-04-29 20:20:00 Emergency Jag Magana [facility] ..840.114 350.1.13.10 4.2.7.2.686 [id number] [facility] 2021-04-29 18:59:00 2021-04-29 20:20:00 Emergency X JAG MAGANA [facility] E[facility] [id number] [facility] 2021-04-03 13:30:00 2021-04-03 13:30:00 Outpatient R MINOO FLORES [facility] [id number] [facility] 2021-03-27 02:58:00 2021-03-27 04:43:00 Emergency X JOB KASPER [facility] ERT [id number] [facility] 2021-03-27 02:58:00 2021-03-27 04:43:00 Emergency Job Kasper S [facility] 1.840.114 350.1.13.10 4.2.7.2.686 [id number] [facility] 2021-03-27 00:00:00 2021-03-27 00:00:00 Orders Only Doctor Unassigned, Blyn [facility] 1..114 350.1.13.10 4.2.7.2.686 [id number] [facility] 2020-11-25 13:14:00 2020-11-27 12:30:00 Inpatient X JIMENA MAYO [facility] KYLE [id number] [facility] 2020-11-25 20:45:00 2020-11-26 00:47:00 Anesthesia Event Carine Smith [facility] 1.84.114 350.1.13.10 4.2.7.2.686 [id number] [facility] 2020-11-24 00:00:00 2020-11-24 00:00:00 Dany Beth [facility] AQUATICS MANAGER [facility] 1..114 350.1.13.10 4.2.7.2.686 [id number] [facility] 2020-11-20 10:15:00 2020-11-20 10:15:00 Outpatient NORA MELENDEZ [facility] [id number] [facility] 2020-11-18 00:00:00 2020-11-18 00:00:00 Patient Secure Msg Doctor Unassigned, Blyn [facility] AQUATICS MANAGER [facility] 1.2.840.114 350.1.13.10 4.2.7.2.686 [id number] [facility] 2020-11-17 00:00:00 2020-11-17 00:00:00 Telephone Nora Sanchez [facility] AQUATICS MANAGER [facility] 1.840.114 350.1.13.10 4.2.7.2.686 [id number] [facility] 2020-11-10 10:30:00 2020-11-10 10:30:00 Outpatient NORA MELENDEZ [facility] [id number] [facility] 2020-10-30 12:45:00 2020-10-30 12:45:00 Outpatient NORA MELENDEZ [facility] [id number] [facility] 2020-10-16 14:23:36 2020-10-16 15:09:33 Routine Visit Nora Sanchez [facility] AQUATICS [facility] 1.840.114 350.1.13.10 4.2.7.2.686 [id number] [facility] 2020-10-16 13:00:00 2020-10-16 13:00:00 Outpatient NORA MELENDEZ [facility] [id number] [facility] 2020-10-16 00:00:00 2020-10-16 00:00:00 Orders Only Doctor Unassigned, Blyn [facility] 1.840.114 350.1.13.10 4.2.7.2.686 [id number] [facility] 2020-10-15 09:45:00 2020-10-15 09:45:00 Outpatient DANY THOMPSON [facility] [id number] [facility] 2020-10-07 08:00:00 2020-10-07 08:00:00 Outpatient NORA MELENDEZ [facility] [id number] [facility] 2020-09-30 18:00:00 2020-09-30 18:00:00 [facility] [id number] [facility] 2020-09-30 11:45:00 2020-09-30 11:45:00 [facility] [id number] [facility] 2020-09-29 16:45:00 2020-09-29 16:45:00 [facility] [id number] [facility] 2020-09-18 00:00:00 2020-09-18 00:00:00 Patient Secure Msg Carias, Rosmarybeth [facility] AQUATICS MANAGER [facility] 1.840.114 350.1.13.10 4.2.7.2.686 [id number] [facility] 2020-09-15 13:58:57 2020-09-15 15:37:45 Routine Visit CariasFelicitas calderahector [facility] AQUATICS MANAGER [facility] 1.2.840.114 350.1.13.10 4.2.7.2.686 [id number] [facility] 2020-09-15 13:15:00 2020-09-15 13:15:00 Outpatient LILIANA THOMPSONMARYBETH [facility] [id number] [facility] 2020-09-12 00:00:00 2020-09-12 00:00:[address] Nurse T[address] Leidy Duran [facility] 1.840.114 350.1.13.10 4.2.7.2.686 [id number] [facility] 2020-08-29 00:00:00 2020-08-29 00:00:00 Telephone Nurse, [facility] Specialti sandra [place] 1.2.840.114 350.1.13.10 4.2.7.2.686 [id number] [facility] 2020-08-28 15:21:38 2020-08-28 23:59:00 Hospital Encounter [place] Matthew [facility] 1.2.840.114 350.1.13.10 4.2.7.2.686 [id number] [facility] 2020-08-28 15:21:38 2020-08-28 23:59:00 Hospital Encounter Vipul [place] [facility] 1.2.840.114 350.1.13.10 4.2.7.2.686 [id number] 2020-08-28 14:13:24 2020-08-28 15:23:42 Urgent Care [place] [facility] 1.840.114 350.1.13.10 4.2.7.2.686 [id number] [facility] 2020-08-28 14:13:24 2020-08-28 15:23:42 Urgent Care Vipul [place] [facility] 1.2840.114 350.1.13.10 4.2.7.2.686 [id number] 2020-08-28 14:20:00 2020-08-28 14:20:00 Outpatient R TOBY RICHARDS [facility] [id number] [facility] 2020-08-27 10:01:23 2020-08-27 11:16:37 Routine Visit Dany Carias [facility] AQUATICS MANAGER [facility] 1.2.840.114 350.1.13.10 4.2.7.2.686 [id number] [facility] 2020-08-27 10:01:23 2020-08-27 11:16:37 Routine Visit Dany Carias Jocelyn [facility] AQUATICS MANAGER [facility] 1.2.840.114 350.1.13.10 4.2.7.2.686 [id number] 2020-08-27 09:00:00 2020-08-27 09:00:00 Outpatient R DANY CARIAS [facility] [id number] [facility] 2020-08-27 00:00:00 2020-08-27 00:00:00 Orders Only Doctor Unassigned, Blyn [facility] 1.2.840.114 350.1.13.10 4.2.7.2.686 [id number] [facility] 2020-08-27 00:00:00 2020-08-27 00:00:00 Orders Only Doctor Unassigned, Blyn [facility] 1.2840.114 350.1.13.10 4.2.7.2.686 [id number] 2020-08-19 14:50:51 2020-08-19 15:35:51 Doctor Of Dental Surgery Visit 1, [facility] Room [place] María Gallegos [facility] 1.2840.114 350.1.13.10 4.2.7.2.686 [id number] [facility] 2020-08-19 14:50:51 2020-08-19 15:35:51 Doctor Of Dental Surgery Visit 1, [facility] Room [facility] 1.2840.114 350.1.13.10 4.2.7.2.686 [id number] 2020-08-19 14:15:00 2020-08-19 14:15:00 Outpatient P [facility] [id number] [facility] 2020-08-11 08:45:00 2020-08-11 08:45:00 Outpatient P [facility] [id number] [facility] 2020-08-06 00:00:00 2020-08-06 00:00:00 Nurse Triage [facility] 1.2.840.114 350.1.13.10 4.2.7.2.686 [id number] 2020-08-06 00:00:00 2020-08-06 00:00:00 Nurse Triage [facility] 1.2.840.114 350.1.13.10 4.2.7.2.686 [id number] [facility] 2020-08-06 00:00:00 2020-08-06 00:00:00 Telephone Dany Carias [facility] AQUATICS MANAGER [facility] 1.2.840.114 350.1.13.10 4.2.7.2.686 [id number] [facility] 2020-07-30 10:22:14 2020-07-30 10:37:14 Routine Visit Dany Carias [facility] AQUATICS MANAGER [facility] 1.2.840.114 350.1.13.10 4.2.7.2.686 [id number] [facility] 2020-07-30 10:15:00 2020-07-30 10:15:00 Outpatient DANY THOMPSON [facility] [id number] [facility] 2020-07-21 13:45:00 2020-07-21 13:45:00 Outpatient DANY THOMPSON [facility] [id number] [facility] 2020-07-17 09:00:00 2020-07-17 09:00:00 Outpatient DANY THOMPSON [facility] [id number] [facility] 2020-07-14 09:45:41 2020-07-14 11:00:41 Doctor Of Dental Surgery Visit Ultrasound, Jordan Valencia [facility] AQUATICS MANAGER [facility] 1.2.840.114 350.1.13.10 4.2.7.2.686 [id number] [facility] 2020-07-14 10:00:00 2020-07-14 10:00:00 Outpatient P [facility] [id number] [facility] 2020-07-14 00:00:00 2020-07-14 00:00:00 Case Management Nora Sanchez [facility] AQUATICS MANAGER [facility] 1.2.840.114 350.1.13.10 4.2.7.2.686 [id number] [facility] 2020-07-01 13:52:00 2020-07-01 14:58:28 Routine Visit Dany Carias [facility] AQUATICS MANAGER [facility] 1.2.840.114 350.1.13.10 4.2.7.2.686 [id number] [facility] 2020-07-01 13:45:00 2020-07-01 13:45:00 Outpatient R DANY CARIAS [facility] [id number] [facility] 2020-07-01 00:00:00 2020-07-01 00:00:00 Telephone Dany Carias [facility] AQUATICS MANAGER [facility] 1.2.840.114 350.1.13.10 4.2.7.2.686 [id number] [facility] 2020-06-17 08:48:55 2020-06-17 09:25:15 Routine Visit Dany Carias [facility] AQUATICS MANAGER [facility] 1.2.840.114 350.1.13.10 4.2.7.2.686 [id number] [facility] 2020-06-17 08:45:00 2020-06-17 08:45:00 Outpatient DANY THOMPSON [facility] [id number] [facility] 2020-06-10 15:45:00 2020-06-10 15:45:00 Outpatient LILIANA THOMPSONMARYBETH [facility] [id number] [facility] 2020-06-03 20:19:00 2020-06-03 22:12:00 Emergency Julio Da Silva [facility] 1..840.114 350.1.13.10 4.2.7.2.686 [id number] [facility] 2020-05-13 09:59:20 2020-05-13 10:14:20 Routine Visit Carias, Dany Banks [facility] [employer] MANAGER [facility] 1..840.114 350.1.13.10 4.2.7.2.686 [id number] [facility] 2020-05-13 10:00:00 2020-05-13 10:00:00 Outpatient FELICITAS THOMPSONHECTOR [facility] [id number] [facility] 2020-05-06 11:00:00 2020-05-06 11:00:00 Outpatient LILIANA THOMPSONMARYBETH [facility] [id number] [facility] 2020-04-29 10:45:00 2020-04-29 10:45:00 Outpatient LILIANA THOMPSONMARYBETH [facility] [id number] [facility] 2020-04-29 00:00:00 2020-04-29 00:00:00 Telephone Carias, Dany [facility] AQUATICS MANAGER [facility] 1.2.840.114 350.1.13.10 4.2.7.2.686 [id number] [facility] 2020-04-22 00:00:00 2020-04-22 00:00:00 Nurse Triage Radha Lynn Lemus [facility] 1.2840.114 350.1.13.10 4.2.7.2.686 [id number] [facility] 2020-04-09 00:00:00 2020-04-09 00:00:00 Case Management Dany Carias [facility] [employer] MANAGER [facility] 1.2840.114 350.1.13.10 4.2.7.2.686 [id number] [facility] 2020-04-08 11:32:55 2020-04-08 12:14:18 Doctor Of Dental Surgery Visit Ultrasound, Tracey Trammell [facility] A[employer] MANAGER [facility] 1.0.114 350.1.13.10 4.2.7.2.686 [id number] [facility] 2020-04-08 11:30:00 2020-04-08 11:30:00 Outpatient P [facility] [id number] [facility] 2020-04-08 00:00:00 2020-04-08 00:00:00 Abstract Dany Carias [facility] AQUATICS MANAGER [facility] 1.840.114 350.1.13.10 4.2.7.2.686 [id number] [facility] 2020-04-02 23:15:00 2020-04-03 01:12:00 Emergency Yoshi Esparza [facility] 1.2840.114 350.1.13.10 4.2.7.2.686 [id number] [facility] 2020-04-02 00:00:00 2020-04-02 00:00:00 Telephone Dany Carias [facility] AQUAT[employer] MANAGER [facility] CENTER 1..114 350.1.13.10 4.2.7.2.686 [id number] [facility] 2020-04-02 00:00:00 2020-04-02 00:00:00 Telephone Dany Carias [facility] AQUATICS MANAGER [facility] 1..114 350.1.13.10 4.2.7.2.686 [id number] [facility] 2020-04-01 09:25:04 2020-04-01 11:05:29 Initial Visit Dany Carias [facility] AQUATICS MANAGER [facility] 1.114 350.1.13.10 4.2.7.2.686 [id number] [facility] 2020-04-01 08:30:00 2020-04-01 08:30:00 Outpatient R [facility] [id number] [facility] 2020-04-01 00:00:00 2020-04-01 00:00:00 Orders Only Doctor Unassigned, Blyn [facility] 1.114 350.1.13.10 4.2.7.2.686 [id number] [facility] 2019-12-18 09:30:00 2019-12-18 09:30:00 Outpatient R [facility] [id number] [facility] 2019-10-01 00:00:00 2019-10-01 00:00:00 Patient Secure Msg Doctor Unassigned, Blyn [facility] 1.114 350.1.13.10 4.2.7.2.686 [id number] [facility] 2019-09-26 00:00:00 2019-09-26 00:00:00 Patient Secure Msg Minoo Flores [facility] 1.2.840.114 350.1.13.10 4.2.7.2.686 [id number] [facility] 2019-09-21 11:10:44 2019-09-21 23:59:00 Hospital Encounter Minoo Flores [facility] 1.2.840.114 350.1.13.10 4.2.7.2.686 [id number] [facility] 2019-09-21 11:00:00 2019-09-21 11:09:00 Hospital Encounter Minoo Flores [facility] 1.2.840.114 350.1.13.10 4.2.7.2.686 [id number] [facility] 2019-09-21 09:56:26 2019-09-21 10:59:00 Hospital Encounter Minoo Flores [facility] 1.2.840.114 350.1.13.10 4.2.7.2.686 [id number] [facility] 2019-09-21 00:00:00 2019-09-21 00:00:00 Outpatient R MINOO FLORES [facility] [id number] [facility] 2019-09-21 00:00:00 2019-09-21 00:00:00 Patient Secure Msg Minoo Flores [facility] 1.2.840.114 350.1.13.10 4.2.7.2.686 [id number] [facility] 2019-09-21 00:00:00 2019-09-21 00:00:00 Case Management Minoo Flores [facility] 1.2.840.114 350.1.13.10 4.2.7.2.686 [id number] [facility] 2019-09-21 00:00:00 2019-09-21 00:00:00 Patient Secure Msg Minoo Flores [facility] 1.2.840.114 350.1.13.10 4.2.7.2.686 [id number] [facility] 2019-09-20 10:01:43 2019-09-20 10:16:43 Laboratory Only Only, Adc Test Kevan Beaulieu [facility] 1.2.840.114 350.1.13.10 4.2.7.2.686 [id number] [facility] 2019-09-20 09:55:41 2019-09-20 10:10:41 Doctor Of Dental Surgery Visit Pob, Adc Lab Main Minoo Flores [facility] 1.2.840.114 350.1.13.10 4.2.7.2.686 [id number] [facility] 2019-09-20 00:00:00 2019-09-20 00:00:00 Outpatient R MINOO FLORES [facility] [id number] [facility] 2019-09-20 00:00:00 2019-09-20 00:00:00 Orders Only Doctor Unassigned, Blyn [facility] 1.2.840.114 350.1.13.10 4.2.7.2.686 [id number] [facility] 2019-09-19 13:45:12 2019-09-19 15:57:17 Telemedici ne Visit Minoo Flores [facility] 1.2840.114 350.1.13.10 4.2.7.2.686 [id number] [facility] 2019-09-19 09:45:00 2019-09-19 09:45:00 Outpatient R MINOO FLORES [facility] [id number] [facility] 2019-09-19 00:00:00 2019-09-19 00:00:00 Telephone Minoo Flores [facility] Office Building One 1..114 350.1.13.10 4.2.7.2.686 [id number] [facility] 2019-09-14 12:46:19 2019-09-14 13:54:37 Urgent Care Pob1, Acute Care Clinic Bertha Bacathia [facility] Office [facility] 1.840.114 350.1.13.10 4.2.7.2.686 [id number] [facility] 2019-09-14 13:00:00 2019-09-14 13:00:00 Outpatient R [facility] [id number] [facility] 2019-08-28 11:00:00 2019-08-28 11:00:00 Outpatient R MELODY GAO [facility] [id number] [facility] 2019-08-22 08:59:00 2019-08-24 07:24:30 Inpatient HCACL MALACHI [id number] [facility] 2019-08-23 15:07:25 2019-08-23 16:34:23 Urgent Care Provider, [facility] 1.114 350.1.13.10 4.2.7.2.686 [id number] [facility] 2019-08-23 15:40:00 2019-08-23 15:40:00 Outpatient R [facility] [id number] [facility] 2019-08-22 14:16:15 2019-08-22 16:10:00 Emergency Kvng Chandra [facility] 1.2.114 350.1.13.10 4.2.7.2.686 [id number] [facility] 2019-08-22 13:26:07 2019-08-22 13:41:07 Nurse Visit Nurse, [facility] Unknown, Attending [facility] 1.2.840.114 350.1.13.10 4.2.7.2.686 [id number] [facility] 2019-08-22 13:30:00 2019-08-22 13:30:00 Outpatient R UNKNOWN, ATTENDING [facility] [id number] [facility] 2019-08-22 00:00:00 2019-08-22 00:00:[address] [facility] 1.2.840.114 350.1.13.10 4.2.7.2.686 [id number] [facility] 2019-08-21 00:00:00 2019-08-21 00:00:00 Patient Secure Msg Doctor Unassigned, Blyn [facility] 1.2.840.114 350.1.13.10 4.2.7.2.686 [id number] [facility] 2019-08-19 21:26:07 2019-08-19 21:27:00 Emergency Simba Rivera [facility] 1.2.840.114 350.1.13.10 4.2.7.2.686 [id number] [facility] 2019-08-19 00:00:00 2019-08-19 00:00:00 Orders Only Doctor Unassigned, Blyn [facility] 1.2.840.114 350.1.13.10 4.2.7.2.686 [id number] [facility] Results Test Description Test Time Test Comments Results Result Co mments Source [facility] [id number] 20:37:00* Test Item Value Reference Range Interpretation Comme nts POCT PREG (test code = 1605) Negative On board controls acceptable with C Line (test code = 3574) Yes POCT PREG LOT # (test code = 3575) POCT PREG TEST DATE ( test code = 3576) [facility] [id number] 20:37:00* Test Item Value Reference Range Interpretation Comme nts POCT PREG (test code = 1605) Negative On board controls acceptable with C Line (test code = 3574) Yes POCT PREG LOT # (test code = 3575) POCT PREG TEST DATE ( test code = 3576) [facility] URINALYSIS W/O SPECIFIC [id number] 20:36:00* Test Item Value Reference Range Interpretation Comme nts POCT PH U (test code = 3254) 7 mg/dl 5-8 POCT U LEUK EST (test code = 3263) trace Negative - Negative POCT U NIT (test code = 3262) negative Negative - Negati ve POCT U PROT (test code = 3259) 1+ Negative - Negat darryl POCT U GLU (test code = 3256) negative Negative - Negati ve POCT U KETONE (test code = 3258) negative Negative - Neg ative POCT U BLD (test code = 3257) trace Negative - Negati ve [facility] URINALYSIS W/O SPECIFIC [id number] 20:36:00* Test Item Value Reference Range Interpretation Comme nts POCT PH U (test code = 3254) 7 mg/dl 5-8 POCT U LEUK EST (test code = 3263) trace Negative - Negative POCT U NIT (test code = 3262) negative Negative - Negati ve POCT U PROT (test code = 3259) 1+ Negative - Negat darryl POCT U GLU (test code = 3256) negative Negative - Negati ve POCT U KETONE (test code = 3258) negative Negative - Neg ative POCT U BLD (test code = 3257) trace Negative - Negati ve [facility] URINALYSIS W/O SPECIFIC [id number] 20:36:00* Test Item Value Reference Range Interpretation Comme nts POCT PH U (test code = 3254) 7 mg/dl 5-8 POCT U LEUK EST (test code = 3263) trace Negative - Negative POCT U NIT (test code = 3262) negative Negative - Negati ve POCT U PROT (test code = 3259) 1+ Negative - Negat darryl POCT U GLU (test code = 3256) negative Negative - Negati ve POCT U KETONE (test code = 3258) negative Negative - Neg ative POCT U BLD (test code = 3257) trace Negative - Negati ve [facility]-PCR/[id number] 15:19:39* Test Item Value Reference Range Interpretation Comments SARS-CoV-2 INTERPRETATION (test code = 80719) NEGATIVE SEE NOTE SARS-CoV-2 R NA NOT DETECTEDNegative results do not preclude SARS-CoV-2 infection and should notbe used as the sole basis for patient management decisions. Negativeresults must be combined with clinical observations, patient history,and epidemiological information. Optimum specimen types and timingfor peak viral levels during infections caused by SARS-CoV-2 have notbeen determined. Collection of multiple specimens or types ofspecimens may be necessary to detect virus. Improper specimencollection and handling, sequence variability under primers/probes,or organism present below the limit of detection may lead to falsenegative results. Positive and negative predictive values oftesting are highly dependent on prevalence. False negative testresults are more likely when prevalence is high. SOURCE (test code = 85900) NASOPHARYNGEAL Note: Methodolog y is Dannie Stefani Real-Time RT-PCR. The expected result or reference range is NEGATIVE (Not Detected). For more information regarding COVID-19 testing to include clinicalinformation, methodology detail, intended use, FDA authorization andrecommended fact sheets for patients or healthcare providers, see [employer] Announcement: SARS-CoV-2 (COVID-19) by NAAT at URL below (note,fact sheets are provided by method given in report:https://www.[email or web address]/clinicians/cl ient-communications/ Alternatively, see downloadable PDF fact sheet at:https://www.[employer] .Blekko/LHINE-59-ED-PCR UNLESS OTHERWISE INDICATED, ALL TESTING PERFORMED ATCL[facility], [facility] [address] [place] [address] VIDEOGAME TESTER: OCTAVIANO GUZMAN M.D. CLIA NUMBER [id number] [place]. [id number] COMPREHENSIVE METABOLIC [id number] 10:12:00* Test Item Value Reference Range Interpretation Comme [...] N BLOOD UREA NITROGEN (test code = BUN) 7 mg/dL 7-18 N GLOMERULAR FILTRATION RATE (test code = GFR) 95.8 105-110 L Units of measure = ml/min/1.73 m2 CREATININE (test code = CREAT) [...] IUnit/L 15-65 N ALKALINE PHOSPHATASE TOTAL (test code = ALKP) 65 IUnit/L 20-125 N [id number] 10:12:00* Test Item Value Reference Range Interpretation Comme nts TROPONIN-I (test code = TROPI) < 0.015 ng/mL 0.000-0.045 N Negative: <= 0.0 45 Positive: >= 0.046 Correlation with serial results, other cardiac markers andclinical findings is necessary to determine the clinicalsignificance of this result. Results using different methodologies should not be comparedto one another as quantitative results may vary by method. COMPREHENSIVE METABOLIC [id number] 10:11:00* Test Item Value Reference Range Interpretation Comme nts SODIUM (test code = NA) mEq/L 134-147 POTASSIUM (test code = K) mEq/L 3.4-5.0 CHLORIDE (test code = CL) mEq/L 100-108 CARBON DIOXIDE (test code = CO2) mEq/L 21-33 ANION GAP (test code = GAP) 0-20 GLUCOSE (test code = GLU) mg/dL 70-110 BLOOD UREA NITROGEN (test code = BUN) mg/dL 7-18 GLOMERULAR FILTRATION RATE ( test code = GFR) 105-110 CREATININE (test code = CREAT) mg/dL 0.6-1.3 TOTAL PROTEIN (test code = PROT) g/dL 6.4-8.2 ALBUMIN (test code = ALB) g/dL 3.4-5.0 CALCIUM (test code = CA) mg/dL 8.0-10.5 BILIRUBIN TOTAL (test code = BILT) MG/DL <1.5 SGOT/AST (test code = AST) IUnit/L 15-37 SGPT/ALT (test code = ALT) IUnit/L 15-65 ALKALINE PHOSPHATASE TOTAL ( test code = ALKP) IUnit/L 20-125 [id number] 10:11:00* Test Item Value Reference Range Interpretation Comme [facility] TROPONIN-I (test code = TROPI) < 0.015 ng/mL 0.000-0.045 N Negative: <= 0.0 45 Positive: >= 0.046 Correlation with serial results, other cardiac markers andclinical findings is necessary to determine the clinicalsignificance of this result. Results using different methodologies should not be comparedto one another as quantitative results may vary by method. PROTHROMBIN [id number] 09:59:00* Test Item Value Reference Range Interpretation Comme nts PROTHROMBIN TIME PATIENT (test code = PTP) 14.4 SECONDS 9.3-12.9 H INTERNATIONAL NORMAL RATIO (test code = INR) 1.3 0.8-1.2 H TARGET INR BY INDICATION Indication INR1. Prophylaxis of venous thrombosis 2.0 - 3.0 (orthopedic surgery), Prophylaxis of venous thrombosis (other than high-risk surgery), Treatment of Deep Vein Thrombosis/Pulmonary Embolism, Prevention of systemic embolism - Tissue heart valves, Acute Myocardial Infarction (to prevent systemic embolism), Valvular heart disease, Atrial Fibrillation, Bileaflet mechanical valve in aortic position.2. Mechanical prosthetic valves (high risk), 2.5 - 3.5 Presence of Lupus Anticoagulant or Antiphospholipid Antibodies, Prevention of systemic embolism - Acute Myocardial Infarction (to prevent recurrent infarct). [id number] 09:59:00* Test Item Value Reference Range Interpretation Comme nts D-DIMER (test code = DDIMER) 224 ng/mlFEU <=500 N THROMBOSIS AND/O R PULMONARY EMBOLISM AND THE CLINICAL CUT- OFF VALUE FOR EXCLUSION (500 ng/mL FEU) OF THESE CONDITIONSIS VALIDATED BY THE CANAL DRIVER OF THE METHOD. A NEGATIVE D-DIMER RESULT WHEN COMBINED WITH A CLINICALASSESSMENT OF LOW PRETEST PROBABILITY HAS BEEN SHOWN TO HAVEA HIGH NEGATIVE PREDICTIVE VALUE OF DVT OR PE. D-DIMER VALUES >500 ng/mL FEU ARE NOT DIAGNOSTIC FOR DVT, PEor DIC WITHOUT OTHER CONFIRMATORY TESTS AND APPROPRIATECLINICAL EUALUATIONS. CBC W/AUTO [id number] 09:56:00* Test Item Value Reference Range Interpretation Comme nts WHITE BLOOD CELL (test code = WBC) 13.32 x10 3/uL 4.5-11.0 H RED BLOOD CELL (test code = RBC) 5.55 x10 6/uL 3.54-5.02 H HEMOGLOBIN (test code = HGB) 14.5 g/dL 11.0-15.0 N HEMATOCRIT (test code = HCT) 45.4 % 33.0-45.0 H MEAN CELL VOLUME (test code = MCV) 81.8 fL 81.0-99.0 N MEAN CELL HGB (test code = MCH) 26.1 pg 27.0-33.0 L MEAN CELL HGB CONCETRATION (test code = MCHC) 31.9 g/dL 33.0-37.0 L RED CELL DISTRIBUTION WIDTH CV (test code = RDW) 14.4 % 11.5-14.5 N RED CELL DISTRIBUTION WIDTH SD (test code = RDW-SD) 42.6 fL 37.0-54.0 N PLATELET COUNT (test code = PLT) 442 x10 3/uL 150-400 H MEAN PLATELET VOLUME (test code = MPV) 9.1 fL 7.0-9.0 H NEUTROPHIL % (test code = NT%) 53.5 % 56.0-77.0 L IMMATURE GRANULOCYTE % (test code = IG%) 0.3 % 0.0-2.0 N LYMPHOCYTE % (test code = LY%) 37.2 % 14.0-32.0 H MONOCYTE % (test code = MO%) 7.7 % 4.8-9.0 N EOSINOPHIL % (test code = EO%) 0.8 % 0.3-3.7 N BASOPHIL % (test code = BA%) 0.5 % 0.0-2.0 N NUCLEATED RBC % (test code = NRBC%) 0.0 % 0-0 N NEUTROPHIL # (test code = NT#) 7.13 x10 3/uL 2.0-7.6 N IMMATURE GRANULOCYTE # (test code = IG#) 0.04 x10 3/uL 0.00-0.03 H LYMPHOCYTE # (test code = LY#) 4.96 x10 3/uL 1.0-3.8 H MONOCYTE # (test code = MO#) 1.02 x10 3/uL 0.1-0.8 H EOSINOPHIL # (test code = EO#) 0.11 x10 3/uL 0.0-0.2 N BASOPHIL # (test code = BA#) 0.06 x10 3/uL 0.0-0.2 N NUCLEATED RBC # (test code = NRBC#) 0.00 x10 3/uL 0.0-0.1 N MANUAL DIFF REQUIRED (test code = MDIFF) NO - XR CHEST 1 [id number] 09:56:00FAX: Dallas Cain MD [phone] [place]: St: PRE Name: QUINNRAGHAVENDRA [facility] : 1985 Age/S: 34/F [address] [place] [address] Unit #: [id number] Loc: [place] [address] Phys: Dallas Cain MD Acct:[id number] Dis Date: Status: PRE ER PHONE #: [phone] Exam Date: 08/22/2019 1007 FAX #: [phone] Reason: Chest Pain EXAMS: CPT CODE: [id number] XR CHEST 1 V 20173 PROCEDURE: CHEST SINGLE VIEW INDICATION: Chest Pain COMPARISON: There are no previous relevant studies available for correlation. FINDINGS: The lungs are clear. No pleural abnormality. The cardiomediastinal silhouette is normal for projection. The bony thorax is intact. IMPRESSION: Normal radiograph. SL: [id number] Ela ctronically Signed by Jesse Sousa on 08/22/2019 at 0956 Reported and signed by: Samson Sousa M.D. CC: Dallas Cain MD Technologist: RT Maddi(R) Trnscrd Date/Time/By: 08/22/2019 (0956) : By: Krissy Orig Print D/T: S: 08/22/2019 (1006) PAGE 1 Signed Report Notes Date/Time Note Provider Source 2022-09-01 09:11:30 [id number]/[id number]: 11:30 09/01/22Community Wellness and Outreach team contacted patient to assist in completing Health Maintenance topics that are overdue. Raghavendra Mauez Quinn [id number] Number: 1st attemptHealth Maintenance topics addressed: Health Maintenance Due Topic Date Due SARS-CoV-2 (COVID-19) Vaccine (1) Never done Depression Screening 09/18/2020 Call outcome: Attempted to get in contact with patient regarding missed annual visit appointment. No answer. LVM for patient to return phone call. [id number] encounter GhomVY1487-74-65V47:16:58Telephone encounter [id number] 7879|[id number] for patient [id number] Bochas MA[address] Mu[id number] DSAAXEIOSLJGVCUOJCQ5500-90-99Q27:16:581 .2.840.247618.1.72.3.15|1.2.840.401526. 1.13.104.2.7.2.727879_[id number] Deja Strong MA [facility] 2019-08-22 09:39:00 [id number]/193vljB91C3scsK qqCCjgQ8E5hCtF9H2Vsb2NSJgiQEEP+x4VifpG8 [id number]:39:00 [facility] ([facility])EMERGENCY PROVIDER REPORTREPORT#:[id number] REPORT STATUS: SignedDATE:08/22/19 TIME: 938 PATIENT: RAGHAVENDRA QUINN UNIT #: [id number]#: [id number] ROOM/BED:AGE: 34 SEX: F PCP PHYS:SERVICE DT: AUTHOR: Dallas Cain MD * ALL edits or amendments must be made on the electronic/computer document * HPI-Chest Pain Under 40 GeneralConfirmed Patient YesInitial Greet Date/Time 08/22/19 0903 PresentationChief Complaint Chest painHx Obtained From PatientSudden in Onset? NoOnset Occurred YesterdaySymptom Duration Since onsetProgression since Onset ConstantLocation Chest LQuality Pressure, Tightness)( Migration/Movement NoneAssociated withReports: Dizziness, Nausea, Shortness of breath. Denies: Cough, non-productive,Diaphoresis, Fever, Syncope, Vomiting. Free Text HPI NotesFree Text HPI Ajncs41-hwcg-gfi female presents emergency department for evaluation of chest tightness that started yesterday. Tightness across her chest that radiates downher left upper extremity and she has tingling in both her hands. She also states she has aching in bilateral lower legs. She denies fever cough vomiting or diarrhea. She was tested negative for the COVID-19 virus 2 days ago. Risk-Chest Pain Under 40 Risk Stratification)( Coronary Artery Disease Risk factors reviewed)( Pulmonary Embolism Risk factors reviewed)( AMI-Aspirin Aspirin Last 24 Hrs 324 mg, On arrival)( HEART for MACE )( HEART for MACE Response Value History Low index of suspicion 0 ECG Interpretation Normal ECG 0 Age Age under 45 0 Risk Factors for CAD No risk factors known 0 Troponin < or = to NL troponin 0 Total 0 HEART Score for MACE 0-3 (low risk 0.9%-1.7%) Review of Systems ROS StatementsAll systems rev neg except as marked. Focused Review of SystemsConstitutionalReports: Fatigue. Denies: Fever, Lethargy. RespiratoryReports: Shortness of breath. Denies: Cough, non-productive, Cough, productive. CardiovascularDenies: Edema, Palpitations, Syncope. GIDenies: Abdominal pain, Diarrhea, Nausea, Vomiting. MusculoskeletalReports: Extremity pain, Myalgia. Denies: Extremity swelling. SkinDenies: Diaphoresis, Erythema, Rash, Swelling. NeurologicReports: Dizziness, Lightheaded, Tingling. Denies: Change LOC, Syncope. Additional Review of SystemsEars/Nose/ThroatDenies: Nasal congestion, Nose bleeding, Sinus problem, Sore throat. Past Medical History - AdultStated Complaint BODY ACHES, SHORTNESS OF BREATH, CP SINCE YESTERDAAllergiesCoded Allergies:No Known Allergies (08/22/19) Home MedicationsReported MedicationsNo Known Home Medications Discontinued Reported MedicationsIBUPROFEN (ADVIL) 800 MG PO Q8H PRN PRN PAIN IBUPROFEN (ADVIL) 800 MG PO Q8H PRN PRN PAIN #30 DC: 08/22/19922 Therapy completed Pt reports no significant: Past medical historyPast Surgical History:Reports: Appendectomy. Smoking status for patients 13 years old or older: Never SmokerOther Social History Local resident Physical Exam Vital SignsVital SignsFirst Documented: Result Date Time Pulse Ox 100 08/21 918 B/P 121/77 08/21 918 B/P Mean 91 08/21 918 O2 Delivery Room air 08/21 918 Temp 99.1 08/21 918 Pulse 115 08/21 918 Resp 18 08/21 918 Last Documented: Result Date Time Pulse Ox 100 08/21 918 B/P 121/77 08/21 918 B/P Mean 91 08/21 918 O2 Delivery Room air 08/21 918 Temp 99.1 08/21 918 Pulse 115 08/21 918 Resp 18 08/21 918 Review of Vital Signs Reviewed Focused PEGeneral/Const General/Const Awake, Alert, Well developedEyes Eyes PERRL, No periorbital swelling, No scleral icterusMS Neck Neck No adenopathy, No swelling, No JVD, Thyroid NLResp/Chest Respiratory/Chest Breath sounds NL, Breath sounds = bilat, No respiratory distressCardiovascular Cardiovascular Regular rhythm, Heart sounds NL, Cap refill not delayedAbdomen/GI Abdomen/GI Soft, Non-tender, No distentionMS Lower Extrem Lower Ext/Pelvis/MS No swelling, Non-tenderSkin Skin Color NL, Warm, DryNeurologic Neurologic Oriented X3, Speech NL, No motor deficits Additional PEEars/Nose/Throat Ears/Nose/Throat Airway patent, Mucous membranes moist, No facial swelling Interpretation Diagnostics Lab Results InterpretationResultsLaboratory Tests 08/22/19929:[Embedded Image Not Available]Laboratory Tests: 08/21 929 Chemistry Sodium (134 - 147 mEq/L) 136 Potassium (3.4 - 5.0 mEq/L) 3.6 Chloride (100 - 108 mEq/L) 107 Carbon Dioxide (21 - 33 mEq/L) 26 Anion Gap (0 - 20) 7 BUN (7 - 18 mg/dL) 7 Creatinine (0.6 - 1.3 mg/dL) 0.7 Glomerular Filtr Rate (105 - 110) 95.8 L Glucose (70 - 110 mg/dL) 93 Calcium (8.0 - 10.5 mg/dL) 9.4 Total Bilirubin (<1.5 MG/DL) 0.6 AST (15 - 37 IUnit/L) 7 L ALT (15 - 65 IUnit/L) 16 Total Alk Phosphatase (20 - 125 IUnit/L) 65 Troponin I (0.000 - 0.045 ng/mL) < 0.015 Total Protein (6.4 - 8.2 g/dL) 8.8 H Albumin (3.4 - 5.0 g/dL) 3.30 L Coagulation INR (0.8 - 1.2) 1.3 H PT Patient/Control Mix (9.3 - 12.9 SECONDS) 14.4 H D-Dimer (<=500 ng/mlFEU) 224 Hematology WBC (4.5 - 11.0 x10 3/uL) 13.32 H RBC (3.54 - 5.02 x10 6/uL) 5.55 H Hgb (11.0 - 15.0 g/dL) 14.5 Hct (33.0 - 45.0 %) 45.4 H MCV (81.0 - 99.0 fL) 81.8 MCH (27.0 - 33.0 pg) 26.1 L MCHC (33.0 - 37.0 g/dL) 31.9 L RDW (11.5 - 14.5 %) 14.4 Plt Count (150 - 400 x10 3/uL) 442 H MPV (7.0 - 9.0 fL) 9.1 H Neut % (Auto) (56.0 - 77.0 %) 53.5 L Lymph % (Auto) (14.0 - 32.0 %) 37.2 H [place] % (Auto) (4.8 - 9.0 %) 7.7 Eos % (Auto) (0.3 - 3.7 %) 0.8 Baso % (Auto) (0.0 - 2.0 %) 0.5 Neut # (Auto) (2.0 - 7.6 x10 3/uL) 7.13 Lymph # (Auto) (1.0 - 3.8 x10 3/uL) 4.96 H [place] # (Auto) (0.1 - 0.8 x10 3/uL) 1.02 H Eos # (Auto) (0.0 - 0.2 x10 3/uL) 0.11 Baso # (Auto) (0.0 - 0.2 x10 3/uL) 0.06 Abs Immat Gran (auto) (0.00 - 0.03 x10 3/uL) 0.04 H Add Manual Diff NO Immature Gran % (0.0 - 2.0 %) 0.3 Nucleated RBC % (0 - 0 %) 0.0 Nucleated RBCs # (Man) (0.0 - 0.1 x10 3/uL) 0.00 Recent Impressions:RADIOLOGY - XR CHEST 1 V 08/21 100 Report Impression - Status: SIGNED Entered: 08/22/2019 1003 IMPRESSION: Normal radiograph. SL: [id number] By: Krissy Sousa M.D. Point of Care TestingPulse Oximetry Pulse Ox % 100 On: Room air Interpretation Interpreted by me, Pulse oximetry normal ECG #1 InterpretationDate 08/22/19Time 0934Interpreted by and reviewed by Nicanor ECG Interpretation Normal sinus rhythm, No STEMI, Normal QRS, Normal ST waves, Normal T waves, Normal axis, Normal intervalsRate 100Rhythm Tachycardia Re-Evaluation MDM Re-Evaluation/Progress #1Time of Re-Eval 1020Re-Eval Status UnchangedExam Post Tx - General Alert, Appears non-toxic, Vital signs stablePlan Post Re-Eval Plan discharge, Suspect viral syndrome. Will give anxiolytic trial as well. ED CourseMedication(s) OrderedMedication(s) Ordered:Central Nervous System Agents Sig/Vince Start time Last Medication Dose Route Stop Time Status Admin Aspirin 0 .STK-MED ONE 08/21 0937 DC PO Aspirin 324 MG X1ED STA 08/21 0932 DC 08/21 PO 08/21 0933 0940 Electrolytic, Caloric, And Carlitos Sig/Vince Start time Last Medication Dose Route Stop Time Status Admin Sodium Chloride 0 ASDIR PRN 08/21 0945 AC IV 08/22 0832 Patient Discharge Departure Vital Signs/ConditionVital SignsFirst Documented: Result Date Time Pulse Ox 100 / 0919 B/P 121/77 / 0919 B/P Mean 91 / 0919 O2 Delivery Room air 08/21 0919 Temp 99.1 08/21 0919 Pulse 115 / 0919 Resp 18 / 0919 Last Documented: Result Date Time Pulse Ox 100 / 0919 B/P 121/77 / 0919 B/P Mean 91 / 0919 O2 Delivery Room air 08/21 0919 Temp 99.1 08/21 0919 Pulse 115 / 0919 Resp 18 08/21 0919 All vital signs available at the time of this entry have been reviewed. Condition Stable Clinical ImpressionClinical ImpressionPrimary Impression: Tightness in chest Disposition DecisionDischarge )( Discharged to Home Yes )( Time 1030 )( Date 08/22/19 Discharge/Care PlanCounseled Regarding Lab results, Imaging studies, Prescriptions, Need for follow-up, When to return to [facility] Drug Database Reviewed YesPrescriptionsxanax 0.5mg(Auto) PrescriptionsCurrent Visit ScriptsNo Known Home Medications at 1030RPT #:[id number] OF REPORTEDEmernea medical center department [id number] for patient [id number] HCACL"
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
[2023-03-07 09:01] VITALS: BP 110/78; TEMP 98.8; O2SAT 100
== END ==
LOC: ER 08:16
DX: S30.1XXA Contusion of abdominal wall, initial encounter (principal); V49.49XA Driver injured in collision with other motor vehicles in traffic accident, initial encounter

== ENCOUNTER → 2023-04-06 | Emergency (ER) | payer OTHER, SELFPAY ==
[~2023-04-06] MED LIST changes: -KETOROLAC 30 MG/ML INJ ONE; +TETRACAINE HCL 0.5% 4ML OPTH ONE
--- OUTSIDE RECORDS SUMMARY | 2023-04-06 08:02 | XMS REPORT | Continuity of Care Document ---
Author Name Unknown Address [address] [facility]. 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 Name Role Phone JARED COLLADO Primary Care Physician Unavailab RAMON Valentine Attending Clinician Deja Dacosta MA Attending Clinician UnavailTYRESE Cartwright Attending Clinician Unavailable JARED COLLADO Attending Clinician Unavailable ANALISA SUAREZ Attending Clinician Unavail able Laura Joshua Attending Clinician [phone] Unknown, Attending Attending Clinician Unavailab LAURA Huntley Attending Clinician Unavailable DEE HUFFMAN Attending Clinician Unavailable Pgy3 Attending Clinician Unavailable Dee Huffman MD Attending Clinician [phone] Doctor Unassigned, [place] Attending Clinician U Deja Waldrop CNM Attending Clinician [phone] DEJA ÁLVAREZ Attending Clinician Unavaila [facility]ending [facility]ician Kia KHANH Mcarthur Attending Clinician Unavailable Phuong PROCUREMENT PROFESSIONAL, Tyrese Attending Clinician [phone] Tobias PROCUREMENT PROFESSIONAL, Jared Attending Clinician [phone] Daniela WHCNP, Analisa Hawkins Attending Clinician + Zafar PROCUREMENT PROFESSIONAL, Dany Banks Attending Clinician [phone] DANY CARIAS R Attending Clinician Unavailab RAMÓN Trejo Attending Clinician Unavailable Yan QUINNCRamón Attending Clinician [phone] Pob, [facility] Main Attending Clinician Unavailtita Simon PNP, Shanita Call Attending Clinician [phone] Ramiro HERRERA, Janae Sunshine Attending Clinician Unavaila Manuel Torres Attending Clinician Unavailable Hien PAC, Manuel Ho Attending Clinician [phone] Lab, Ang - Db Attending Clinician Unavailable Shanon Beckham MD Attending Clinician [phone] Octavia PROCUREMENT PROFESSIONAL, Oumar Attending Clinician [phone] OUMAR DUDLEY Attending Clinician UnavailJuly Snider LVN Attending Clinician UnaMARIA ISABEL Alvarez Attending Clinician Unavailable Parviz PROCUREMENT PROFESSIONAL, Maria Isabel Attending Clinician [phone] GABRIELLE MARTÍNEZ Attending Clinician Unavailable Gabrielle Dillard Attending Clinician [phone] PAMELA PRESLEY Attending Clinician Unavailab brittany Presley PROCUREMENT PROFESSIONAL, Pamela Short Attending Clinician [phone] GERTRUDE MILLAN Attending Clinician UnavailMINOO Garcia Attending Clinician Unavaila JAG Fay Attending Clinician Unavailable Jag Magana DO Attending Clinician [phone] JOB KASPER Attending Clinician Unavailable Job Kasper MD Attending Clinician [phone] JIMENA MAYO Attending Clinician Unavailable Sarah LEES, Carine Attending Clinician [phone] NORA SANCHEZ Attending Clinician Unavailtita Sanchez PROCUREMENT PROFESSIONAL, Nora Montoya Attending Clinician [phone] Roger HERRERA, Leidy Attending Clinician Unavailable Nurse, [facility] Attending Clinician Unava iljames Matthew PROCUREMENT PROFESSIONAL, [place] Attending Clinician [phone] Maurice LEES, Toby Scherer Attending Clinician [phone] TOBY MADRID Attending Clinician Unavailable 1, [facility] Usg Room Attending Clinician Unavaila tonio Diego MD, Daniel Attending Clinician + Tino HERRERA, Mike Attending Clinician Unavailab le Ultrasound, [facility] Attending Clinician Unavaila tonio Domingo MD, Jordan Salcedo Attending Clinician [phone] Julio Da Silva APN Attending Clinician [phone] Radha RN, Lynn Lemus Attending Clinician Unavailab brittany Jamil MD, Tracey Attending Clinician [phone] Vilma LEES, Yoshi Attending Clinician [phone] Sandra LEES, Minoo Lemus Attending Clinician + [phone] Only, Adc Test Attending Clinician Unavailable Brittnee LEES, Kevan Attending Clinician [phone] [phone], [facility] Attending Clinician Unav MELODY Craig Attending Clinician Unavaila tonio Provider, [facility] Attending Clinician Un available Corazon PROCUREMENT PROFESSIONAL, Kvng Banks Attending Clinician [phone] Nurse, s [facility] Attending Clinician Unava ilable UNKNOWN, ATTENDING Attending Clinician Unavailab brittany Rivera PROCUREMENT PROFESSIONAL, Simba Attending Clinician [phone] Manuel STANFORD Admitting Clinician Unavailable GABRIELLE MARTÍNEZ Admitting Clinician Unavailable JIMENA MAYO Admitting Clinician Unavailable Payers Payer Name Policy Type Policy Number Effective Date Expirati on Date Source [employer] [id number] 2019 00:00:00 [facility] [id number] 2016 00:00:00 MEDICAID PENDING PENDING 2019 00:00:00 Problems Condition Name Condition Details Condition Category Status Onset Date Resolution Date Last Treatment Date Treating Clinician Comments Source Urinary tract infection without hematuria, site unspecifie d Urinary tract infection without hematuria, site unspecifie d Disease Active 7-07 00:00: 00 [facility] Vaginal discharge Vaginal discharge Disease Active 6-23 00:00: 00 [facility] Dizziness Dizziness Disease Active 6-08 00:00: 00 [facility] Diverticul osis Diverticul osis Disease Active 5-20 00:00: 00 [facility] Screen for STD (sexually transmitte d disease) Screen for STD (sexually transmitte d disease) Disease Active 5-04 00:00: 00 [facility] Left arm pain Left arm pain Disease Active 4-22 00:00: 00 [facility] Herpes zoster without complicati on Herpes zoster without complicati on Disease Active 4-20 00:00: 00 [facility] Positive D dimer Positive D dimer Disease Active 4-20 00:00: 00 [facility] History of anxiety History of anxiety Disease Active 2- 00:00: 00 [facility] BMI 32.0-32.9, adult BMI 32.0-32.9, adult Disease Active 2-23 00:00: 00 [facility] Former smoker Former smoker Disease Active 2-23 00:00: 00 [facility] Chest pain, atypical Chest pain, atypical Disease Active 8-12 00:00: 00 [facility] Obesity (BMI 30-39.9) Obesity (BMI 30-39.9) Disease Active 09-28 00:00: 00 [facility] Absence of menstruati on Absence of menstruati on Disease Active 09-28 00:00: 00 [facility] Papanicola ou smear of cervix with low grade squamous intraepith elial lesion (LGSIL) Papanicola ou smear of cervix with low grade squamous intraepith elial lesion (LGSIL) Disease Active 7-24 00:00: 00 [facility] Allergies, Adverse Reactions, Alerts Allergy Name Allergy Type Status Severity Reaction(s) Onset Date Inactive Date Treating Clinician Comments Source No Known Allergie s DA Active U 7-15 00:00: 00 [facility] No Known Allergie s DA Active U 2012-02 0-06 00:00: 00 [facility] NO KNOWN ALLERGIE S [facility] Social History Social Habit Start Date Stop Date Quantity Comments Source [facility]ION [facility] Exposure to SARS-CoV-2 (event) 2022-02-05 00:00:00 2022-02-15 18:53:00 Not sure [facility] History of Social function 2021-07-30 00:00:00 2021-07-30 00:00:00 [facility] Education 2020-11-25 00:00:00 2020-11-25 00:00:00 13 [facility] Alcohol Comment 2020-04-01 00:00:00 2020-04-01 00:00:00 socially [facility] History SDOH Alcohol Frequency 2020-04-01 00:00:00 2020-04-01 00:00:00 99 [facility] History SDOH Alcohol Std Drinks 2020-04-01 00:00:00 2020-04-01 00:00:00 99 [facility] History SDOH Alcohol Binge 2020-04-01 00:00:00 2020-04-01 00:00:00 99 [facility] Alcohol intake 2019-08-19 00:00:00 2019-08-19 00:00:00 Current drinker of alcohol (finding) [facility] Cigarettes smoked current (pack per day) - Reported 2016-09-28 00:00:00 2016-09-28 00:00:00 [facility] Cigarette pack-years 2016-09-28 00:00:00 2016-09-28 00:00:00 [facility] Tobacco use and exposure 2016-09-28 00:00:00 2016-09-28 00:00:00 Smokeless tobacco non-user [facility] History of tobacco use 2016-08-28 00:00:00 Cigarette Smoker [facility] Tobacco Comment 2014-08-23 00:00:00 2014-08-23 00:00:00 smokes 2 x per day. [facility] Sex Assigned At 1985 00:00:00 1985 00:00:00 [facility] Smoking Status Start Date Stop Date Source Ex-smoker 2016-09-28 00:00:00 2016-09-28 [facility]00[facility]00 [facility] Medications Ordered Medication Name Filled Medication Name Start Date Stop Date Current Medication? Ordering Clinician Indication Dosage Frequency Signature (SIG) Comments Components Source busPIRone 10 mg tablet 02-15 19:02: 28 Yes 10mg Take 10 mg by mouth as needed. [facility] busPIRone 10 mg tablet 02-15 19:02: 28 Yes 10mg Take 10 mg by mouth as needed. [facility] busPIRone 10 mg tablet 02-15 19:02: 28 Yes 10mg Take 10 mg by mouth as needed. [facility] busPIRone 10 mg tablet 02-15 19:02: 28 Yes 10mg Take 10 mg by mouth as needed. [facility] busPIRone 10 mg tablet 02-15 19:02: 28 Yes 10mg Take 10 mg by mouth as needed. [facility] busPIRone 10 mg tablet 02-15 19:02: 28 Yes 10mg Take 10 mg by mouth as needed. [facility] busPIRone 10 mg tablet 02-15 19:02: 28 Yes 10mg Take 10 mg by mouth as needed. [facility] busPIRone 10 mg tablet 0 02-15 19:02: 28 Yes 10mg Take 10 mg by mouth as needed. [facility] azithromyci n (ZITHROMAX Z-MARICHUY) 250 mg tablet 02-15 00:00: 00 Yes [id number] Z pack as directed [facility] azithromyci n (ZITHROMAX Z-MARICHUY) 250 mg tablet 02-15 00:00: 00 Yes [id number] Z pack as directed [facility] benzonatate 200 mg capsule 02-15 00:00: 00 02-26 05:59 :00 No [id number] 200mg Take 1 capsule by mouth 3 (three) times daily as needed for Cough for up to 10 days. [facility] albuterol 90 mcg/actuati on inhaler 02-15 00:00: 00 02-26 05:59 :00 No [id number] 2{puff} Inhale 2 Puffs every 6 (six) hours as needed for Wheezing for up to 10 days. [facility] ampicillin 500 mg capsule 2021-02 00:00: 00 Yes [id number] 500mg Take 1 capsule by mouth every 6 (six) hours. [facility] ampicillin 500 mg capsule 2021-02 00:00: 00 Yes [id number] 500mg Take 1 capsule by mouth every 6 (six) hours. [facility] ampicillin 500 mg capsule 2021-02 00:00: 00 Yes [id number] 500mg Take 1 capsule by mouth every 6 (six) hours. [facility] ampicillin 500 mg capsule 2021-02 00:00: 00 Yes [id number] 500mg Take 1 capsule by mouth every 6 (six) hours. [facility] ampicillin 500 mg capsule 2021-02 00:00: 00 Yes [id number] 500mg Take 1 capsule by mouth every 6 (six) hours. [facility] ampicillin 500 mg capsule 2021-02 00:00: 00 Yes [id number] 500mg Take 1 capsule by mouth every 6 (six) hours. [facility] ampicillin 500 mg capsule 2021-02 00:00: 00 Yes [id number] 500mg Take 1 capsule by mouth every 6 (six) hours. [facility] ampicillin 500 mg capsule 2021-02-14 00:00: 00 01-01 05:59 :00 No [id number] 500mg Take 1 capsule by mouth every 6 (six) hours for 10 days. [facility] norethindro ne 0.35 mg tablet 2021-02 00:00: 00 Yes [id number] 1{tbl} Take 1 tablet by mouth in the morning. [facility] norethindro ne 0.35 mg tablet 2021-02 00:00: 00 Yes [id number] 1{tbl} Take 1 tablet by mouth in the morning. [facility] norethindro ne 0.35 mg tablet 2021-02 00:00: 00 Yes [id number] 1{tbl} Take 1 tablet by mouth in the morning. [facility] norethindro ne 0.35 mg tablet 2021-02 00:00: 00 Yes [id number] 1{tbl} Take 1 tablet by mouth in the morning. [facility] norethindro ne 0.35 mg tablet 2021-02 00:00: 00 Yes [id number] 1{tbl} Take 1 tablet by mouth in the morning. [facility] norethindro ne 0.35 mg tablet 2021-02 00:00: 00 Yes [id number] 1{tbl} Take 1 tablet by mouth in the morning. [facility] norethindro ne 0.35 mg tablet 2021-02 00:00: 00 Yes [id number] 1{tbl} Take 1 tablet by mouth in the morning. [facility] norethindro ne 0.35 mg tablet 2021-02 00:00: 00 Yes [id number] 1{tbl} Take 1 tablet by mouth in the morning. [facility] norethindro ne 0.35 mg tablet 2021-02 00:00: 00 Yes [id number] 1{tbl} Take 1 tablet by mouth in the morning. [facility] norethindro ne 0.35 mg tablet 2021-02 00:00: 00 Yes [id number] 1{tbl} Take 1 tablet by mouth in the morning. [facility] norethindro ne 0.35 mg tablet 2021-02 00:00: 00 Yes [id number] 1{tbl} Take 1 tablet by mouth in the morning. [facility] norethindro ne 0.35 mg tablet 2021-02 00:00: 00 Yes [id number] 1{tbl} Take 1 tablet by mouth in the morning. [facility] norethindro ne 0.35 mg tablet 2021-02 00:00: 00 Yes [id number] 1{tbl} Take 1 tablet by mouth in the morning. [facility] metroNIDAZO LE 500 mg tablet 2021-02 00:00: 00 12-26 05:59 :00 No [id number] 500mg Take 1 tablet by mouth in the morning and 1 tablet in the evening. Do all this for 7 days. [facility] metroNIDAZO LE 500 mg tablet 2021-02 00:00: 00 12-26 05:59 :00 No [id number] 500mg Take 1 tablet by mouth in the morning and 1 tablet in the evening. Do all this for 7 days. [facility] metroNIDAZO LE 500 mg tablet 2021-02 00:00: 00 12-26 05:59 :00 No [id number] 500mg Take 1 tablet by mouth in the morning and 1 tablet in the evening. Do all this for 7 days. [facility] metroNIDAZO LE 500 mg tablet 2021-02 00:00: 00 12-26 05:59 :00 No [id number] 500mg Take 1 tablet by mouth in the morning and 1 tablet in the evening. Do all this for 7 days. [facility] ampicillin 500 mg capsule 15 00:00: 00 09-01 04:59 :00 No [id number] 500mg Take 1 capsule by mouth 4 (four) times daily for 10 days. [facility] ampicillin 500 mg capsule 15 00:00: 00 09-01 04:59 :00 No [id number] 500mg Take 1 capsule by mouth 4 (four) times daily for 10 days. [facility] ampicillin 500 mg capsule 2022-0 7-15 00:00: 00 09-01 04:59 :00 No [id number] 500mg Take 1 capsule by mouth 4 (four) times daily for 10 days. [facility] citalopram 10 mg tablet 0 -13 00:00: 00 Yes [id number] 10mg Take 1 tablet by mouth in the morning. [facility] citalopram 10 mg tablet 2021-0 -13 00:00: 00 Yes [id number] 10mg Take 1 tablet by mouth in the morning. [facility] citalopram 10 mg tablet 2021-0 -13 00:00: 00 Yes [id number] 10mg Take 1 tablet by mouth in the morning. [facility] citalopram 10 mg tablet 2021-0 -13 00:00: 00 Yes [id number] 10mg Take 1 tablet by mouth in the morning. [facility] citalopram 10 mg tablet 2021-0 -13 00:00: 00 Yes [id number] 10mg Take 1 tablet by mouth in the morning. [facility] citalopram 10 mg tablet 2021-0 13 00:00: 00 Yes [id number] 10mg Take 1 tablet by mouth in the morning. [facility] citalopram 10 mg tablet 2021-0 -13 00:00: 00 Yes [id number] 10mg Take 1 tablet by mouth in the morning. [facility] citalopram 10 mg tablet 2021-0 -13 00:00: 00 Yes [id number] 10mg Take 1 tablet by mouth in the morning. [facility] citalopram 10 mg tablet 2021-0 -13 00:00: 00 Yes [id number] 10mg Take 1 tablet by mouth in the morning. [facility] citalopram 10 mg tablet 2021-0 -13 00:00: 00 Yes [id number] 10mg Take 1 tablet by mouth in the morning. [facility] citalopram 10 mg tablet 2-0 7-13 00:00: 00 Yes [id number] 10mg Take 1 tablet by mouth in the morning. [facility] citalopram 10 mg tablet 2-0 7-13 00:00: 00 Yes [id number] 10mg Take 1 tablet by mouth in the morning. [facility] [place] [facility] citalopram 10 mg tablet 2-0 7-13 00:00: 00 Yes [id number] 10mg Take 1 tablet by mouth in the morning. [facility] [place] [facility] tablet 2-0 7-13 00:00: 00 Yes [id number] 10mg Take 1 tablet by mouth in the morning. [facility] citalopram 10 mg tablet 2-0 7-13 00:00: 00 Yes [id number] 10mg Take 1 tablet by mouth in the morning. [facility] citalopram 10 mg tablet 2-0 7-13 00:00: 00 Yes [id number] 10mg Take 1 tablet by mouth in the morning. [facility] citalopram 10 mg tablet 2-0 7-13 00:00: 00 Yes [id number] 10mg Take 1 tablet by mouth in the morning. [facility] citalopram 10 mg tablet 2021-0 7-13 00:00: 00 Yes [id number] 10mg Take 1 tablet by mouth in the morning. [facility] ibuprofen 600 mg tablet 2-0 6-13 00:00: 00 Yes [id number] 600mg Take 1 tablet by mouth every 6 (six) hours as needed for Pain (scale 4-6). [facility] ibuprofen 600 mg tablet 2-0 6-13 00:00: 00 Yes [id number] 600mg Take 1 tablet by mouth every 6 (six) hours as needed for Pain (scale 4-6). [facility] ibuprofen 600 mg tablet 2-0 6-13 00:00: 00 Yes [id number] 600mg Take 1 tablet by mouth every 6 (six) hours as needed for Pain (scale 4-6). [facility] ibuprofen 600 mg tablet 2-0 6-13 00:00: 00 Yes [id number] 600mg Take 1 tablet by mouth every 6 (six) hours as needed for Pain (scale 4-6). [facility] ibuprofen 600 mg tablet 2-0 6-13 00:00: 00 Yes [id number] 600mg Take 1 tablet by mouth every 6 (six) hours as needed for Pain (scale 4-6). [facility] [place] [facility] ibuprofen 600 mg tablet 2-0 6-13 00:00: 00 Yes [id number] 600mg Take 1 tablet by mouth every 6 (six) hours as needed for Pain (scale 4-6). [facility] [place] [facility] mg tablet 2-0 6-13 00:00: 00 Yes [id number] 600mg Take 1 tablet by mouth every 6 (six) hours as needed for Pain (scale 4-6). [facility] [place] [facility] 600 mg tablet 2-0 6-13 00:00: 00 Yes [id number] 600mg Take 1 tablet by mouth every 6 (six) hours as needed for Pain (scale 4-6). [facility] ibuprofen 600 mg tablet 2-0 6-13 00:00: 00 Yes [id number] 600mg Take 1 tablet by mouth every 6 (six) hours as needed for Pain (scale 4-6). [facility] [place] [facility] mg tablet 2-0 6-13 00:00: 00 Yes [id number] 600mg Take 1 tablet by mouth every 6 (six) hours as needed for Pain (scale 4-6). [facility] ibuprofen 600 mg tablet 2-0 6-13 00:00: 00 Yes [id number] 600mg Take 1 tablet by mouth every 6 (six) hours as needed for Pain (scale 4-6). [facility] [place] [facility] mg tablet 2-0 6-13 00:00: 00 Yes [id number] 600mg Take 1 tablet by mouth every 6 (six) hours as needed for Pain (scale 4-6). [facility] [place] [facility] mg tablet 2-0 6-13 00:00: 00 Yes [id number] 600mg Take 1 tablet by mouth every 6 (six) hours as needed for Pain (scale 4-6). [facility] [place] [facility] ib[facility] 600 mg tablet 2022-0 6-13 00:00: 00 Yes [id number] 600mg Take 1 tablet by mouth every 6 (six) hours as needed for Pain (scale 4-6). [facility] ibuprofen 600 mg tablet 0 13 00:00: 00 Yes [id number] 600mg Take 1 tablet by mouth every 6 (six) hours as needed for Pain (scale 4-6). [facility] ibuprofen 600 mg tablet 0 13 00:00: 00 Yes [id number] 600mg Take 1 tablet by mouth every 6 (six) hours as needed for Pain (scale 4-6). [facility] ibuprofen 600 mg tablet 2021-0 13 00:00: 00 Yes [id number] 600mg Take 1 tablet by mouth every 6 (six) hours as needed for Pain (scale 4-6). [facility] ibuprofen 600 mg tablet 2021-0 13 00:00: 00 Yes [id number] 600mg Take 1 tablet by mouth every 6 (six) hours as needed for Pain (scale 4-6). [facility] ibuprofen 600 mg tablet 2021-0 13 00:00: 00 Yes [id number] 600mg Take 1 tablet by mouth every 6 (six) hours as needed for Pain (scale 4-6). [facility] ibuprofen 600 mg tablet 2021-0 13 00:00: 00 Yes [id number] 600mg Take 1 tablet by mouth every 6 (six) hours as needed for Pain (scale 4-6). [facility] ibuprofen 600 mg tablet 2021-0 13 00:00: 00 Yes [id number] 600mg Take 1 tablet by mouth every 6 (six) hours as needed for Pain (scale 4-6). [facility] ibuprofen 600 mg tablet 2021-0 13 00:00: 00 Yes [id number] 600mg Take 1 tablet by mouth every 6 (six) hours as needed for Pain (scale 4-6). [facility] ibuprofen 600 mg tablet 2021-0 -13 00:00: 00 Yes [id number] 600mg Take 1 tablet by mouth every 6 (six) hours as needed for Pain (scale 4-6). [facility] busPIRone 10 mg tablet 2021-0 6-08 17:04: 42 Yes 10mg Take 10 mg by mouth as needed. [facility] [place] [facility] busPIRone 10 mg tablet 2021-0 07-15 17:04: 42 Yes 10mg Take 10 mg by mouth as needed. [facility] [place] busPIRone 10 mg tablet 2021-0 07-15 17:04: 42 Yes 10mg Take 10 mg by mouth as needed. [facility] [place] [facility] busPIRone 10 mg tablet 2021-0 07-15 17:04: 42 Yes 10mg Take 10 mg by mouth as needed. [facility] [place] [facility] busPIRone 10 mg tablet 2021-0 07-15 17:04: 42 Yes 10mg Take 10 mg by mouth as needed. [facility] [place] [facility] busPIRone 10 mg tablet 2021-0 07-15 17:04: 42 Yes 10mg Take 10 mg by mouth as needed. [facility] [place] [facility] busPIRone 10 mg tablet 2021-0 07-15 17:04: 42 Yes 10mg Take 10 mg by mouth as needed. [facility] [place] busPIRone 10 mg tablet 2021-0 07-15 17:04: 42 Yes 10mg Take 10 mg by mouth as needed. [facility] [place] busPIRone 10 mg tablet 2021-0 07-15 17:04: 42 Yes 10mg Take 10 mg by mouth as needed. [facility] [place] busPIRone 10 mg tablet 2021-0 07-15 17:04: 42 Yes 10mg Take 10 mg by mouth as needed. [facility] busPIRone 10 mg tablet 2021-0 07-15 17:04: 42 Yes 10mg Take 10 mg by mouth as needed. [facility] busPIRone 10 mg tablet 2021-0 07-15 17:04: 42 Yes 10mg Take 10 mg by mouth as needed. [facility] busPIRone 10 mg tablet 2021-0 07-15 17:04: 42 Yes 10mg Take 10 mg by mouth as needed. [facility] busPIRone 10 mg tablet 2021-0 07-15 17:04: 42 Yes 10mg Take 10 mg by mouth as needed. [facility] busPIRone 10 mg tablet 07-15 17:04: 42 Yes 10mg Take 10 mg by mouth as needed. [facility] busPIRone 10 mg tablet 07-15 17:04: 42 Yes 10mg Take 10 mg by mouth as needed. [facility] vit 33-iron-fol ic-dha (SELECT-OB + DHA) 29 mg iron-1 mg -250 mg combo pack 08-27 00:00: 00 06-10 00:00 :00 No 1{packe t} Take 1 Packet by mouth daily. [facility] cyclobenzap rine 5 mg tablet 14 00:00: 00 04-01 00:00 :00 No [id number] 4 5mg Take 1 tablet by mouth 2 (two) times daily as needed for Muscle Spasms. Can cause drowsiness . [facility] gabapentin 100 mg capsule 09-18 00:00: 00 04-01 00:00 :00 No [id number] 100mg Take 1 capsule by mouth 3 (three) times daily as needed (nerve pain). [facility] Immunizations Ordered Immunization Name Filled Immunization Name Date Status Comments Source [facility] 2020-09-15 00:00:00 Completed [facility] TDAP 2020-09-15 00:00:00 Completed [facility] TDAP 2020-09-15 00:00:00 Completed [facility] TDAP 2020-09-15 00:00:00 Completed [facility] TDAP 2020-09-15 00:00:00 Completed [facility] TDAP 2020-09-15 00:00:00 Completed [facility] TDAP 2020-09-15 00:00:00 Completed [facility] TDAP 2020-09-15 00:00:00 Completed [facility] TDAP 2020-09-15 00:00:00 Completed [facility] TDAP 2020-09-15 00:00:00 Completed [facility] TDAP 2020-09-15 00:00:00 Completed [facility] TDAP 2020-09-15 00:00:00 Completed [facility] TDAP 2020-09-15 00:00:00 Completed [facility] TDAP 2020-09-15 00:00:00 Completed [facility] TDAP 2020-09-15 00:00:00 Completed [facility] TDAP 2020-09-15 00:00:00 Completed [facility] TDAP 2020-09-15 00:00:00 Completed [facility] TDAP 2020-09-15 00:00:00 Completed [facility] TDAP 2017-02-09 00:00:00 Completed [facility] TDAP 2017-02-09 00:00:00 Completed [facility] TDAP 2017-02-09 00:00:00 Completed [facility] TDAP 2017-02-09 00:00:00 Completed [facility] TDAP 2017-02-09 00:00:00 Completed [facility] TDAP 2017-02-09 00:00:00 Completed [facility] TDAP 2017-02-09 00:00:00 Completed [facility] TDAP 2017-02-09 00:00:00 Completed [facility] TDAP 2017-02-09 00:00:00 Completed [facility] TDAP 2017-02-09 00:00:00 Completed [facility] TDAP 2017-02-09 00:00:00 Completed [facility] TDAP 2017-02-09 00:00:00 Completed [facility] TDAP 2017-02-09 00:00:00 Completed [facility] TDAP 2017-02-09 00:00:00 Completed [facility] TDAP 2017-02-09 00:00:00 Completed [facility] TDAP 2017-02-09 00:00:00 Completed [facility] TDAP 2017-02-09 00:00:00 Completed [facility] TDAP 2017-02-09 00:00:00 Completed [facility] TDAP 2007-02-07 00:00:00 Completed [facility] TDAP 2007-02-07 00:00:00 Completed [facility] TDAP 2007-02-07 00:00:00 Completed [facility] TDAP 2007-02-07 00:00:00 Completed [facility] TDAP 2007-02-07 00:00:00 Completed [facility] TDAP 2007-02-07 00:00:00 Completed [facility] TDAP 2007-02-07 00:00:00 Completed [facility] TDAP 2007-02-07 00:00:00 Completed [facility] TDAP 2007-02-07 00:00:00 Completed [facility] TDAP 2007-02-07 00:00:00 Completed [facility] TDAP 2007-02-07 00:00:00 Completed [facility] TDAP 2007-02-07 00:00:00 Completed [facility] TDAP 2007-02-07 00:00:00 Completed [facility] TDAP 2007-02-07 00:00:00 Completed [facility] TDAP 2007-02-07 00:00:00 Completed [facility] TDAP 2007-02-07 00:00:00 Completed [facility] TDAP 2007-02-07 00:00:00 Completed [facility] TDAP 2007-02-07 00:00:00 Completed [facility] TDAP Unknown Completed [facility] TDAP Unknown Completed [facility] TDAP Unknown Completed [facility] TDAP Unknown Completed [facility] TDAP Unknown Completed [facility] TDAP Unknown Completed [facility] TDAP Unknown Completed [facility] TDAP Unknown Completed [facility] TDAP Unknown Completed [facility] TDAP Unknown Completed [facility] TDAP Unknown Completed [facility] TDAP Unknown Completed [facility] TDAP Unknown Completed [facility] TDAP Unknown Completed [facility] TDAP Unknown Completed [facility] TDAP Unknown Completed [facility] TDAP Unknown Completed [facility] TDAP Unknown Completed [facility] TDAP Unknown Completed [facility] TDAP Unknown Completed [facility] TDAP Unknown Completed [facility] TDAP Unknown Completed [facility] TDAP Unknown Completed [facility] TDAP Unknown Completed [facility] TDAP Unknown Completed [facility] TDAP Unknown Completed [facility] TDAP Unknown Completed [facility] TDAP Unknown [facility]pleted [facility] TDAP Unknown Completed [facility] TDAP Unknown Completed [facility] TDAP Unknown [facility]pleted [facility] TDAP Unknown Completed [facility] TDAP Unknown Completed [facility] Vital Signs Vital Name Observation Time Observation Value Comments S ource Systolic blood pressure 2022-02-16 01:01:00 124 mm[Hg] [facility] Diastolic blood pressure 2022-02-16 01:01:00 87 mm[Hg] [facility] Heart rate 2022-02-16 01:01:00 94 /min Unive [facility] Body temperature 2022-02-16 01:01:00 37.33 Brigitte [facility] Respiratory rate 2022-02-16 01:01:00 17 /min [facility] Body height 2022-02-16 01:01:00 154.9 cm [facility] Body weight 2022-02-16 01:01:00 82.781 kg [facility] BMI 2022-02-16 01:01:00 34.48 kg/m2 [facility] Oxygen saturation in Arterial blood by Pulse oximetry 2022-02-16 01:01:00 100 /min [facility] Systolic blood pressure 2022-01-08 19:57:00 123 mm[Hg] [facility] Diastolic blood pressure 2022-01-08 19:57:00 78 mm[Hg] [facility] Heart rate 2022-01-08 19:57:00 103 /min [facility] Body temperature 2022-01-08 19:57:00 36 Brigitte [facility] Respiratory rate 2022-01-08 19:57:00 18 /min [facility] Body height 2022-01-08 19:57:00 154.9 cm [facility] Body weight 2022-01-08 19:57:00 82.056 kg [facility] BMI 2022-01-08 19:57:00 34.18 kg/m2 [facility] Systolic blood pressure 2021-12-18 20:33:00 110 mm[Hg] [facility] Diastolic blood pressure 2021-12-18 20:33:00 70 mm[Hg] [facility] Heart rate 2021-12-18 20:33:00 96 /min [facility] Body temperature 2021-12-18 20:33:00 36.56 Brigitte [facility] Respiratory rate 2021-12-18 20:33:00 17 /min [facility] Body height 2021-12-18 20:33:00 154.9 cm [facility] Body weight 2021-12-18 20:33:00 79.742 kg [facility] BMI 2021-12-18 20:33:00 33.22 kg/m2 [facility] Procedures Procedure Date / Time Performed Performing Clinician Source DISCLOSURE AND CONSENT, MEDICAL AND SURGICAL PROCEDURES 2022-01-08 06:01:00 Doctor Unassigned, [place] [facility] HCV ANTIBODY 2021-12-18 21:53:00 [facility] 2021-12-18 21:53:00 Deja Álvarez [facility] HIV 1/2 AG-AB WITH REFLEX 2021-12-18 21:53:00 Deja Álvarez [facility] PAP SMEAR-LIQUID BASED-CP 2021-12-18 21:53:00 Deja Álvarez [facility] GALV ONLY - SYPHILIS IGG/IGM 2021-12-18 21:53:00 Deja Álvarez [facility] URINE CULTURE 2021-12-18 21:53:00 Deja Álvarez [facility] GC & CHLAMYDIA AMPLIFIED ASSAY 2021-12-18 21:53:00 Deja Álvarez [facility] HIGH RISK HPV-THIN PREP 2021-12-18 21:53:00 Deja Álvarez [facility] TRICHOMONAS AMPLIFIED ASSAY 2021-12-18 21:53:00 Deja Álvarez [facility] POCT TEST 2021-12-18 00:00:00 Nidhi Álvarez [facility] POCT URINALYSIS W/O SPECIFIC GRAVITY 2021-12-18 00:00:00 Deja Álvarez [facility] Encounters Start Date/Time End Date/Time Encounter Type Admission Type Attending [facility] Care Department Encounter ID Source 2020-12-07 15:42:49 Emergency [facility] [id number] [facility] 2020-12-07 01:14:36 Emergency [facility] [id number] [facility] 2020-12-05 06:56:18 Emergency [facility] [id number] [facility] 2020-12-05 06:14:29 Emergency [facility] [id number] [facility] 2023-03-21 13:20:00 2023-03-21 13:20:00 Outpatient R [facility] [id number] [facility] 2022-10-26 17:46:44 2022-10-26 17:46:44 Outpatient SFA SFA [id number] Colton Salcedo Hung 2022-09-01 00:00:00 2022-09-01 00:00:00 Telephone Deja Strong 1.2.840.114 350.1.13.10 4.2.7.2.686 [id number] [facility] 2022-04-16 14:00:00 2022-04-16 14:00:00 Outpatient TYRESE TURNER [facility] [id number] [facility] 2022-03-31 15:30:00 2022-03-31 15:30:00 Outpatient JARED DOUGLAS [facility] [id number] [facility] 2022-03-23 10:30:00 2022-03-23 10:30:00 Outpatient JARED DOUGLAS [facility] [id number] [facility] 2022-03-22 09:30:00 2022-03-22 09:30:00 Outpatient R JARED COLLADO [facility] [id number] [facility] 2022-02-15 18:40:00 2022-02-15 19:00:00 Urgent Care Deb Lowem[place] Unknown, Attending [facility] 1.84.114 350.1.13.10 4.2.7.2.686 [id number] [facility] 2022-02-15 18:40:00 2022-02-15 18:40:00 Outpatient R LOWE LAURA [facility] [id number] [facility] 2022-01-08 13:30:00 2022-01-08 15:04:40 Outpatient R DEE HUFFMAN [facility] [id number] [facility] 2022-01-08 13:30:00 2022-01-08 15:04:40 Office Visit Pgy3 Dee Huffman [facility] 1..114 350.1.13.10 4.2.7.2.686 [id number] [facility] 2022-01-08 00:00:00 2022-01-08 00:00:00 Orders Only Doctor Unassigned, [place] [facility] 1..114 350.1.13.10 4.2.7.2.686 [id number] [facility] 2022-01-07 00:00:00 2022-01-07 00:00:00 Case Management Deja Álvarez [facility] 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 [facility] 1..114 350.1.13.10 4.2.7.2.686 [id number] [facility] 2022-01-07 00:00:00 2022-01-07 00:00:00 Telephone Deja Álvarez [facility] 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 [facility] 1..114 350.1.13.10 4.2.7.2.686 [id number] [facility] 2022-01-05 00:00:00 2022-01-05 00:00:00 Refill Deja Álvarez [facility] 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 [facility] 1.2.840.114 350.1.13.10 4.2.7.2.686 [id number] [facility] 2021-12-21 00:00:00 2021-12-21 00:00:00 Case Management Deja Álvarez [facility] 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 [facility] 1.2.840.114 350.1.13.10 4.2.7.2.686 [id number] [facility] 2021-12-18 14:15:00 2021-12-18 15:30:31 Outpatient DEJA YOUSIF [facility] [id number] [facility] 2021-12-18 14:15:00 2021-12-18 15:30:31 Office Visit Provider, Drake-Rmchp Deja Jane 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 1.2.840.114 350.1.13.10 4.2.7.2.686 [id number] [facility] 2021-09-28 11:00:00 2021-09-28 11:00:00 Outpatient JARED DOUGLAS [facility] [id number] [facility] 2021-09-24 13:45:00 2021-09-24 13:45:00 Outpatient KHANH PATEL [facility] [id number] [facility] 2021-09-18 09:30:00 2021-09-18 09:30:00 Outpatient TYRESE TURNER [facility] [id number] [facility] 2021-09-01 15:30:00 2021-09-01 15:30:00 Outpatient R JARED COLLADO [facility] [id number] [facility] 2021-08-28 00:00:00 2021-08-28 00:00:00 Patient Secure Tyrese Ospina [facility] 1.2.840.114 350.1.13.10 4.2.7.2.686 [id number] [facility] 2021-08-24 00:00:00 2021-08-24 00:00:00 Abstract Jared Collado [facility] 1..840.114 350.1.13.10 4.2.7.2.686 [id number] [facility] 2021-08-21 00:00:00 2021-08-21 00:00:00 Telephone Analisa Suarez [facility] 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 [facility] 1..840.114 350.1.13.10 4.2.7.2.686 [id number] [facility] 2021-08-19 16:00:00 2021-08-19 16:00:00 Outpatient R JARED COLLADO [facility] [id number] [facility] 2021-08-19 00:00:00 2021-08-19 00:00:00 Refill Jared Collado [facility] 1..840.114 350.1.13.10 4.2.7.2.686 [id number] [facility] 2021-08-19 00:00:00 2021-08-19 00:00:00 RefDany Maldonado [facility] 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 [facility] 1..840.114 350.1.13.10 4.2.7.2.686 [id number] [facility] 2021-08-19 00:00:00 2021-08-19 00:00:00 Refill Doctor Unassigned, [place] [facility] 1..840.114 350.1.13.10 4.2.7.2.686 [id number] [facility] 2021-08-17 00:00:00 2021-08-17 00:00:00 Patient Secure Msg Carias Grisgreymariah Banks [facility] 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 [facility] 1..840.114 350.1.13.10 4.2.7.2.686 [id number] [facility] 2021-08-13 14:15:00 2021-08-13 16:02:04 Outpatient R DANY CARIAS [facility] [id number] [facility] 2021-08-13 14:15:00 2021-08-13 16:02:04 Office Visit Dany Carias [facility] 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 [facility] 1..840.114 350.1.13.10 4.2.7.2.686 [id number] [facility] 2021-08-13 14:15:00 2021-08-13 14:15:00 Outpatient R DANY CARIAS [facility] [id number] [facility] 2021-08-12 00:00:00 2021-08-12 00:00:00 Patient Secure Msg Carias Dany Jocelyn [facility] 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 [facility] 1..840.114 350.1.13.10 4.2.7.2.686 [id number] [facility] 2021-08-07 16:00:00 2021-08-07 16:00:00 Outpatient R JARED COLLADO [facility] [id number] [facility] 2021-08-04 00:00:00 2021-08-04 00:00:00 Telephone Dany Carias [facility] 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 [facility] 1.2.840.114 350.1.13.10 4.2.7.2.686 [id number] [facility] 2021-08-04 00:00:00 2021-08-04 00:00:00 Patient Secure g Jared Collado [facility] 1.2.840.114 350.1.13.10 4.2.7.2.686 [id number] [facility] 2021-08-04 00:00:00 2021-08-04 00:00:00 Patient Secure g Dany Carias [facility] 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 [facility] 1.2.840.114 350.1.13.10 4.2.7.2.686 [id number] [facility] 2021-08-03 00:00:00 2021-08-03 00:00:00 Telephone Dany Carias [facility] 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 [facility] 1.2.840.114 350.1.13.10 4.2.7.2.686 [id number] [facility] 2021-08-03 00:00:00 2021-08-03 00:00:00 Patient Secure g Dany Carias [facility] 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 [facility] 1.2.840.114 350.1.13.10 4.2.7.2.686 [id number] [facility] 2021-08-03 00:00:00 2021-08-03 00:00:00 Patient Secure g Dany Carias [facility] 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 [facility] 1.2.840.114 350.1.13.10 4.2.7.2.686 [id number] [facility] 2021-07-31 11:30:00 2021-07-31 11:30:00 Outpatient R JARED COLLADO [facility] [id number] [facility] 2021-07-30 15:45:00 2021-07-30 16:31:25 Outpatient R DANY CARIAS [facility] [id number] [facility] 2021-07-30 15:45:00 2021-07-30 16:31:25 Office Visit Dany Carias [facility] 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 [facility] MATERNAL & CHILD [facility] 1.2.840.114 350.1.13.10 4.2.7.2.686 [id number] [facility] 2021-07-29 13:30:00 2021-07-29 13:30:00 Outpatient JARED DOUGLAS [facility] [id number] [facility] 2021-07-29 00:00:00 2021-07-29 00:00:00 Patient Secure Msg Doctor Unassigned, [place] [facility] 1.2.840.114 350.1.13.10 4.2.7.2.686 [id number] [facility] 2021-07-29 00:00:00 2021-07-29 00:00:00 Patient Secure g Jared Collado [facility] 1.2.840.114 350.1.13.10 4.2.7.2.686 [id number] [facility] 2021-07-28 16:30:00 2021-07-28 17:03:47 Outpatient R RAMÓN HUDSON [facility] [id number] [facility] 2021-07-28 16:30:00 2021-07-28 17:03:47 Office Visit Ramón Hudson [facility] 1.2840.114 350.1.13.10 4.2.7.2.686 [id number] [facility] 2021-07-28 16:45:00 2021-07-28 17:00:00 Shot Grinder Operator Visit Pob, Imelda [facility] Main Ramón Hudson [facility] N[facility] BUILDING 1.2840.114 350.1.13.10 4.2.7.2.686 [id number] [facility] 2021-07-28 16:45:00 2021-07-28 16:45:00 Outpatient RAMÓN PAN [facility] [id number] [facility] 2021-07-28 00:00:00 2021-07-28 00:00:00 Telephone Shanita Simon [facility] 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 [facility] MATERNAL & CHILD [facility] 1.84.114 350.1.13.10 4.2.7.2.686 [id number] [facility] 2021-07-28 00:00:00 2021-07-28 00:00:00 Orders Only Doctor Unassigned, [place] [facility] 1.2840.114 350.1.13.10 4.2.7.2.686 [id number] [facility] 2021-07-25 00:00:00 2021-07-25 00:00:00 Nurse Triage Janae Rubio [facility] 1.84.114 350.1.13.10 4.2.7.2.686 [id number] [facility] 2021-07-22 14:30:00 2021-07-22 14:30:00 Outpatient JARED DOUGLAS [facility] [id number] [facility] 2021-07-21 00:00:00 2021-07-21 00:00:00 Telephone Jared Collado [facility] 1..840.114 350.1.13.10 4.2.7.2.686 [id number] [facility] 2021-07-21 00:00:00 2021-07-21 00:00:00 Patient Secure Jared Salmon [facility] 1.84.114 350.1.13.10 4.2.7.2.686 [id number] [facility] 2021-07-20 16:13:00 2021-07-20 17:36:00 Emergency X Manuel [place] [facility] ERT [id number] [facility] 2021-07-20 16:13:00 2021-07-20 17:36:00 Emergency Manuel [place] [facility] 1.840.114 350.1.13.10 4.2.7.2.686 [id number] [facility] 2021-07-20 15:45:00 2021-07-20 16:00:00 Shot Grinder Operator Visit Lab, Shanon Tariq [facility] 1..84.114 350.1.13.10 4.2.7.2.686 [id number] [facility] 2021-07-20 15:20:00 2021-07-20 15:44:36 Outpatient R OUMAR DUDLEY [facility] [id number] [facility] 2021-07-20 15:20:00 2021-07-20 15:44:36 Urgent Care Oumar Dudley Amanda [facility] 1.84.114 350.1.13.10 4.2.7.2.686 [id number] [facility] 2021-07-17 00:00:00 2021-07-17 00:00:00 Patient Secure July Julian [facility] 1.840.114 350.1.13.10 4.2.7.2.686 [id number] [facility] 2021-07-17 00:00:00 2021-07-17 00:00:00 Patient Secure [facility] 1.84.114 350.1.13.10 4.2.7.2.686 [id number] [id number] [facility] 2021-07-16 14:15:00 2021-07-16 14:41:18 Shot Grinder Operator Visit Lab, Drake SchroederJared lemus [facility] OFF[facility] BU[facility] 1.840.114 350.1.13.10 4.2.7.2.686 [id number] [facility] 2021-07-16 14:15:00 2021-07-16 14:30:00 Shot Grinder Operator Visit Lab, Drake Jose Jared Collado [facility] OFF[facility] BUILD[facility] 1.840.114 350.1.13.10 4.2.7.2.686 [id number] [facility] 2021-07-16 14:15:00 2021-07-16 14:15:00 Outpatient R TOBIAS JARED [facility] [id number] [facility] 2021-07-15 15:30:00 2021-07-15 15:45:00 Shot Grinder Operator Visit Lab, Drake SchroederJared lemus [facility] MED[facility] OFFICE BUILD[facility] 1.840.114 350.1.13.10 4.2.7.2.686 [id number] [facility] 2021-07-15 14:00:00 2021-07-15 15:22:50 Outpatient R JARED COLLADO [facility] [id number] [facility] 2021-07-15 14:00:00 2021-07-15 15:22:50 Office Visit Jared Collado [facility] OFF[facility] BUILD[facility] 1.840.114 350.1.13.10 4.2.7.2.686 [id number] [facility] 2021-07-15 14:00:00 2021-07-15 15:22:50 Outpatient R JARED COLLADO [facility] [id number] [facility] 2021-07-15 14:00:00 2021-07-15 15:22:50 Outpatient R JARED COLLADO [facility] [id number] [facility] 2021-07-13 08:30:00 2021-07-13 08:30:00 Outpatient R DANY CARIAS [facility] [id number] [facility] 2021-07-13 08:30:00 2021-07-13 08:30:00 Outpatient R DANY CARIAS [facility] [id number] [facility] 2021-07-11 14:20:00 2021-07-11 15:10:05 Outpatient R MARIA ISABEL MARSHALL [facility] [id number] [facility] 2021-07-11 14:20:00 2021-07-11 15:10:05 [facility] 1.84.114 350.1.13.10 4.2.7.2.686 [id number] [facility] 2021-07-06 00:00:00 2021-07-06 00:00:00 Patient Secure Msg Doctor Unassigned, [place] [facility] 1.84.114 350.1.13.10 4.2.7.2.686 [id number] [facility] 2021-06-30 14:30:00 2021-06-30 15:41:19 Outpatient R ANALISA SUAREZ [facility] [id number] [facility] 2021-06-30 14:30:00 2021-06-30 15:41:19 Office Visit Analisa Suarez [facility] 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 [facility] 1.84.114 350.1.13.10 4.2.7.2.686 [id number] [facility] 2021-06-30 00:00:00 2021-06-30 00:00:00 Letter (Out) Analisa Suarez [facility] 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 [facility] 1.84.114 350.1.13.10 4.2.7.2.686 [id number] [facility] 2021-06-26 15:45:00 2021-06-26 16:00:00 Shot Grinder Operator Visit Lab, Ang - Damon Baca [facility] 1.840.114 350.1.13.10 4.2.7.2.686 [id number] [facility] 2021-06-26 14:30:00 2021-06-26 15:40:40 Outpatient R FLORTYRESE VILLASEÑOR [facility] [id number] [facility] 2021-06-26 14:30:00 2021-06-26 15:40:40 Office Visit Phuong [facility] OFF[facility] 1.84.114 350.1.13.10 4.2.7.2.686 [id number] [facility] 2021-06-26 00:00:00 2021-06-26 00:00:00 Telephone Dany Carias [facility] 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 [facility] 1..114 350.1.13.10 4.2.7.2.686 [id number] [facility] 2021-06-25 14:30:00 2021-06-25 14:30:00 Outpatient R DANY CARIAS [facility] [id number] [facility] 2021-06-25 14:30:00 2021-06-25 14:30:00 Outpatient R DANY CARIAS [facility] [id number] [facility] 2021-06-22 15:30:00 2021-06-22 15:30:00 Outpatient JARED DOUGLAS [facility] [id number] [facility] 2021-06-22 15:30:00 2021-06-22 15:30:00 Outpatient JARED DOUGLAS [facility] [id number] [facility] 2021-06-18 00:00:00 2021-06-18 00:00:00 Patient Secure Msg Tobias JaredFormerly [facility] 1..840.114 350.1.13.10 4.2.7.2.686 [id number] [facility] 2021-06-16 15:30:00 2021-06-16 15:45:00 Shot Grinder Operator Visit Lab, Drake - Damon Baca [facility] 1..840.114 350.1.13.10 4.2.7.2.686 [id number] [facility] 2021-06-16 14:30:00 2021-06-16 15:22:44 Outpatient R TYRESE BACA [facility] [id number] [facility] 2021-06-16 14:30:00 2021-06-16 15:22:44 Office Visit Phuong [facility] 1..840.114 350.1.13.10 4.2.7.2.686 [id number] [facility] 2021-06-12 13:45:00 2021-06-12 14:00:00 Office Visit Analisa Suarez [facility] 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 [facility] 1.2.840.114 350.1.13.10 4.2.7.2.686 [id number] [facility] 2021-06-12 13:45:00 2021-06-12 13:45:00 Outpatient R ANALISA SUAREZ [facility] [id number] [facility] 2021-06-12 13:45:00 2021-06-12 13:45:00 Outpatient R ANALISA SUAREZ [facility] [id number] [facility] 2021-06-12 00:00:00 2021-06-12 00:00:00 Patient Secure Msg Analisa Suarez [facility] 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 [facility] 1.2.840.114 350.1.13.10 4.2.7.2.686 [id number] [facility] 2021-06-11 00:00:00 2021-06-11 00:00:00 Telephone Analisa Suarez [facility] 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 [facility] 1.2.840.114 350.1.13.10 4.2.7.2.686 [id number] 107 [id number] [facility] 2021-06-10 13:30:00 2021-06-10 14:41:56 Office Visit Analisa Suarez [facility] 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 [facility] 1.2.840.114 350.1.13.10 4.2.7.2.686 [id number] [facility] 2021-06-10 13:30:00 2021-06-10 14:41:56 Outpatient R ANALISA SUAREZ [facility] [id number] [facility] 2021-06-10 13:30:00 2021-06-10 13:30:00 Outpatient R ANALISA SUAREZ [facility] [id number] [facility] 2021-06-08 15:30:00 2021-06-08 15:30:00 Outpatient R TYRESE BACA [facility] [id number] [facility] 2021-06-08 15:30:00 2021-06-08 15:30:00 Outpatient R TYRESE BACA [facility] [id number] [facility] 2021-06-02 14:30:00 2021-06-02 15:12:53 Outpatient R TYRESE BACA [facility] [id number] [facility] 2021-06-02 14:30:00 2021-06-02 15:12:53 Office Visit FlorBertha villaseñorFormerly [facility] 1.2.840.114 350.1.13.10 4.2.7.2.686 [id number] [facility] 2021-06-02 14:30:00 2021-06-02 15:12:53 Outpatient R TYRESE BACA [facility] [id number] [facility] 2021-06-02 14:30:00 2021-06-02 14:30:00 Outpatient R TYRESE BACA [facility] [id number] [facility] 2021-05-29 14:00:00 2021-05-29 14:30:00 Office Visit Jared Collado [facility] 1.2.840.114 350.1.13.10 4.2.7.2.686 [id number] [facility] 2021-05-29 14:00:00 2021-05-29 14:00:00 Outpatient R JARED COLLADO [facility] [id number] [facility] 2021-05-29 09:30:00 2021-05-29 09:30:00 Outpatient R TYRESE BACA [facility] [id number] [facility] 2021-05-28 00:00:00 2021-05-28 00:00:00 Telephone TobiasJared [facility] OFF[facility] BUILD[facility] 1.840.114 350.1.13.10 4.2.7.2.686 [id number] [facility] 2021-05-27 09:15:00 2021-05-27 09:30:00 Shot Grinder Operator Visit Lab, Drake Collado Jared [facility] MED[facility] OFFICE BUILDING 1.840.114 350.1.13.10 4.2.7.2.686 [id number] [facility] 2021-05-27 09:15:00 2021-05-27 09:15:00 Outpatient R ELDAJARED Lemus [facility] [id number] [facility] 2021-05-27 08:30:00 2021-05-27 09:00:00 Office Visit EldaJared [facility]mus [facility] MED[facility] OFF[facility] BUILD[facility] 1..840.114 350.1.13.10 4.2.7.2.686 [id number] [facility] 2021-05-27 08:30:00 2021-05-27 08:30:00 Outpatient R ELDAJARED Lemus [facility] [id number] [facility] 2021-05-27 00:00:00 2021-05-27 00:00:00 Letter (Out) TobiasJared [facility] OFF[facility] BUILD[facility] 1..840.114 350.1.13.10 4.2.7.2.686 [id number] [facility] 2021-05-27 00:00:00 2021-05-27 00:00:00 Telephone Jared Collado [facility] 1.840.114 350.1.13.10 4.2.7.2.686 [id number] [facility] 2021-05-27 00:00:00 2021-05-27 00:00:00 Telephone [facility] 1.84.114 350.1.13.10 4.2.7.2.686 [id number] [facility] 2021-05-23 01:00:00 2021-05-23 06:13:00 Emergency X GABRIELLE MARTÍNEZ [facility] ERT [id number] [facility] 2021-05-23 01:00:00 2021-05-23 06:13:00 Emergency Gabrielle Martínez R [facility] 1.84.114 350.1.13.10 4.2.7.2.686 [id number] [facility] 2021-05-23 01:00:00 2021-05-23 06:13:00 Emergency X MARTÍNEZ GABRIELLE [facility] ERT [id number] [facility] 2021-05-22 16:00:00 2021-05-22 16:00:00 Outpatient R PAMELA PRESLEY [facility] [id number] [facility] 2021-05-22 14:20:00 2021-05-22 15:02:37 Outpatient R PAMELA PRESLEY [facility] [id number] [facility] 2021-05-22 14:20:00 2021-05-22 15:02:37 Urgent Care Pamela Presley [facility] MED[facility] OFF[facility] BUILD[facility] 1.84.114 350.1.13.10 4.2.7.2.686 [id number] [facility] 2021-05-15 00:00:00 2021-05-15 00:00:00 Orders Only Doctor Unassigned, [place] [facility] 1.84.114 350.1.13.10 4.2.7.2.686 [id number] [facility] 2021-05-04 15:30:00 2021-05-04 15:30:00 Outpatient GERTRUDE CAMPOVERDE [facility] [id number] [facility] 2021-05-04 15:30:00 2021-05-04 15:30:00 Outpatient GERTRUDE CAMPOVERDE [facility] [id number] [facility] 2021-05-01 13:00:00 2021-05-01 13:00:00 [facility] [id number] [facility] 2021-05-01 13:00:00 2021-05-01 13:00:00 Outpatient MINOO BURRELL [facility] [id number] [facility] 2021-04-30 16:30:00 2021-04-30 17:15:50 Outpatient TYRESE TURNER [facility] [id number] [facility] 2021-04-30 16:30:00 2021-04-30 17:15:50 Office Visit Tyrese Baca [facility] MED[facility] OFF[facility] BUILD[facility] 1.840.114 350.1.13.10 4.2.7.2.686 [id number] [facility] 2021-04-29 18:59:00 2021-04-29 20:20:00 Emergency X JAG MAGANA [facility] ERT [id number] [facility] 2021-04-29 18:59:00 2021-04-29 20:20:00 Emergency Jag Magana [facility] 1.840.114 350.1.13.10 4.2.7.2.686 [id number] [facility] 2021-04-29 18:59:00 2021-04-29 20:20:00 Emergency X JAG MAGANA [facility] ERT [id number] [facility] 2021-04-03 13:30:00 2021-04-03 13:30:00 Outpatient R SANDRAJOSE CORREIAMELINA [facility] [id number] [facility] 2021-03-27 02:58:00 2021-03-27 04:43:00 Emergency X JOB KASPER [facility] ERT [id number] [facility] 2021-03-27 02:58:00 2021-03-27 04:43:00 Emergency Job Kasper [facility] 1.840.114 350.1.13.10 4.2.7.2.686 [id number] [facility] 2021-03-27 00:00:00 2021-03-27 00:00:00 Orders Only Doctor Unassigned, [place] [facility] 1.0.114 350.1.13.10 4.2.7.2.686 [id number] [facility] 2020-11-25 13:14:00 2020-11-27 12:30:00 Inpatient X JIMENA MAYO [facility] KYLE [id number] [facility] 2020-11-25 20:45:00 2020-11-26 00:47:00 Anesthesia Event Smith Carine [facility] 1.840.114 350.1.13.10 4.2.7.2.686 [id number] [facility] 2020-11-24 00:00:00 2020-11-24 00:00:00 Dany Beth [facility] 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 [facility] 1.840.114 350.1.13.10 4.2.7.2.686 [id number] [facility] 2020-11-20 10:15:00 2020-11-20 10:15:00 Outpatient R NORA SANCHEZ [facility] [id number] [facility] 2020-11-18 00:00:00 2020-11-18 00:00:00 Patient Secure Msg Doctor Unassigned, [place] [facility] 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 [facility] 1..114 350.1.13.10 4.2.7.2.686 [id number] 107 [id number] [facility] 2020-11-17 00:00:00 2020-11-17 00:00:00 Telephone Nora Sanchez 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 1..114 350.1.13.10 4.2.7.2.686 [id number] [facility] 2020-11-10 10:30:00 2020-11-10 10:30:00 Outpatient R NORA SANCHEZ [facility] [id number] [facility] 2020-10-30 12:45:00 2020-10-30 12:45:00 Outpatient R NORA SANCHEZ [facility] [id number] [facility] 2020-10-16 14:23:36 2020-10-16 15:09:33 Routine Visit Nora Sanchez [facility] ..114 350.1.13.10 4.2.7.2.686 [id number] [facility] 2020-10-16 13:00:00 2020-10-16 13:00:00 Outpatient R NORA SANCHEZ [facility] [id number] [facility] 2020-10-16 00:00:00 2020-10-16 00:00:00 Orders Only Doctor Unassigned, [place] [facility] ..114 350.1.13.10 4.2.7.2.686 [id number] [facility] 2020-10-15 09:45:00 2020-10-15 09:45:00 Outpatient DANY THOMPSON [facility] [id number] [facility] 2020-10-07 08:00:00 2020-10-07 08:00:00 Outpatient Jocelyn NORA SANCHEZ [facility] [id number] [facility] 2020-09-30 18:00:00 2020-09-30 18:00:00 Outpatient LILIANA THOMPSONGREYMariah [facility] [id number] [facility] 2020-09-30 11:45:00 2020-09-30 11:45:00 [facility] [id number] [facility] 2020-09-29 16:45:00 2020-09-29 16:45:00 Outpatient [facility] [id number] [facility] 2020-09-18 00:00:00 2020-09-18 00:00:00 Patient Secure Msg Gris Cariasjosué [facility] 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 [facility] 1.2.840.114 350.1.13.10 4.2.7.2.686 [id number] [facility] 2020-09-15 13:58:57 2020-09-15 15:37:45 Routine Visit Liliana Cariasenrikegreymariah [facility] 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 [facility] 1.2.840.114 350.1.13.10 4.2.7.2.686 [id number] [facility] 2020-09-15 13:15:00 2020-09-15 13:15:00 Outpatient LILIANA THOMPSONMARYBETH [facility] [id number] [facility] 2020-09-12 00:00:00 2020-09-12 00:00:00 Nurse Triage Leidy Duran [facility] 1.2.840.114 350.1.13.10 4.2.7.2.686 [id number] [facility] 2020-08-29 00:00:00 2020-08-29 00:00:00 Telephone Nurse, [facility] sandra [place] 1.2.840.114 350.1.13.10 4.2.7.2.686 [id number] [facility] 2020-08-28 15:21:38 2020-08-28 23:59:00 Hospital Encounter [place] Matthew [facility] 1.2.840.114 350.1.13.10 4.2.7.2.686 [id number] [facility] 2020-08-28 15:21:38 2020-08-28 23:59:00 Hospital Encounter [place] [facility] 1.2.840.114 350.1.13.10 4.2.7.2.686 [id number] 2020-08-28 14:13:24 2020-08-28 15:23:42 Urgent Care [place] [facility] [address] 1.2.840.114 350.1.13.10 4.2.7.2.686 [id number] [facility] 2020-08-28 14:13:24 2020-08-28 15:23:42 Urgent Care Vipul [place] [facility] [address] 1.2.840.114 350.1.13.10 4.2.7.2.686 [id number] 2020-08-28 14:20:00 2020-08-28 14:20:00 Outpatient TOBY GRAVES [facility] [id number] [facility] 2020-08-27 10:01:23 2020-08-27 11:16:37 Routine Visit Dany Carias [facility] 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 [facility] 1.2.840.114 350.1.13.10 4.2.7.2.686 [id number] [facility] 2020-08-27 10:01:23 2020-08-27 11:16:37 Routine Visit Dany Carias [facility] 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 [facility] 1.2.840.114 350.1.13.10 4.2.7.2.686 [id number] 2020-08-27 09:00:00 2020-08-27 09:00:00 Outpatient R DANY CARIAS [facility] [id number] [facility] 2020-08-27 00:00:00 2020-08-27 00:00:00 Orders Only Doctor Unassigned, [place] [facility] 1.2.840.114 350.1.13.10 4.2.7.2.686 [id number] [facility] 2020-08-27 00:00:00 2020-08-27 00:00:00 Orders Only Doctor Unassigned, [place] [facility] 1.2.840.114 350.1.13.10 4.2.7.2.686 [id number] 2020-08-19 14:50:51 2020-08-19 15:35:51 Shot Grinder Operator Visit 1, [facility] Room [place] Bryn simeon [facility] 1.2.840.114 350.1.13.10 4.2.7.2.686 [id number] [facility] 2020-08-19 14:50:51 2020-08-19 15:35:51 Shot Grinder Operator Visit 1, [facility] 1.2.840.114 350.1.13.10 4.2.7.2.686 [id number] 2020-08-19 14:15:00 2020-08-19 14:15:00 Outpatient P [facility] [id number] [facility] 2020-08-11 08:45:00 2020-08-11 08:45:00 Outpatient P [facility] [id number] [facility] 2020-08-06 00:00:00 2020-08-06 00:00:00 Nurse Triage [facility] 1.2.840.114 350.1.13.10 4.2.7.2.686 [id number] [facility] 2020-08-06 00:00:00 2020-08-06 00:00:00 Telephone Dany Carias [facility] 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 [facility] 1.2.840.114 350.1.13.10 4.2.7.2.686 [id number] [facility] 2020-08-06 00:00:00 2020-08-06 00:00:00 Nurse Triage [facility] 1.2.840.114 350.1.13.10 4.2.7.2.686 [id number] 2020-07-30 10:22:14 2020-07-30 10:37:14 Routine Visit Dany Carias [facility] 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 [facility] 1.2.840.114 350.1.13.10 4.2.7.2.686 [id number] [facility] 2020-07-30 10:15:00 2020-07-30 10:15:00 Outpatient DANY THOMPSON [facility] [id number] [facility] 2020-07-21 13:45:00 2020-07-21 13:45:00 Outpatient DANY THOMPSON [facility] [id number] [facility] 2020-07-17 09:00:00 2020-07-17 09:00:00 Outpatient R DANY CARIAS [facility] [id number] [facility] 2020-07-14 09:45:41 2020-07-14 11:00:41 Shot Grinder Operator Visit Ultrasound, Jordan Valencia [facility] 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 [facility] 1.2.840.114 350.1.13.10 4.2.7.2.686 [id number] [facility] 2020-07-14 10:00:00 2020-07-14 10:00:00 Outpatient P [facility] [id number] [facility] 2020-07-14 00:00:00 2020-07-14 00:00:00 Case Management Nora Sanchez [facility] 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 [facility] 1..840.114 350.1.13.10 4.2.7.2.686 [id number] [facility] 2020-07-01 13:52:00 2020-07-01 14:58:28 Routine Visit Dany Carias [facility] 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 [facility] 1.2.840.114 350.1.13.10 4.2.7.2.686 [id number] [facility] 2020-07-01 13:45:00 2020-07-01 13:45:00 Outpatient R DANY CARIAS [facility] [id number] [facility] 2020-07-01 00:00:00 2020-07-01 00:00:[address] Carias [facility] 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 [facility] 1.2.840.114 350.1.13.10 4.2.7.2.686 [id number] [facility] 2020-06-17 08:48:55 2020-06-17 09:25:15 Routine Visit Carias, Dany Banks [facility] 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 [facility] [facility] 1.2.840.114 350.1.13.10 4.2.7.2.686 [id number] [facility] 2020-06-17 08:45:00 2020-06-17 08:45:00 Outpatient Jocelyn CARIAS, DANY [facility] [id number] [facility] 2020-06-10 15:45:00 2020-06-10 15:45:00 Outpatient Jocelyn CARIAS, DANY [facility] [id number] [facility] 2020-06-03 20:19:00 2020-06-03 22:12:00 Emergency Julio Da Silva [facility] 1.2.840.114 350.1.13.10 4.2.7.2.686 [id number] [facility] 2020-05-13 09:59:20 2020-05-13 10:14:20 Routine Visit Carias, Dany Banks [facility] 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 [facility] 1.2.840.114 350.1.13.10 4.2.7.2.686 [id number] [facility] 2020-05-13 10:00:00 2020-05-13 10:00:00 Outpatient DANY THOMPSON [facility] [id number] [facility] 2020-05-06 11:00:00 2020-05-06 11:00:00 Outpatient DANY THOMPSON [facility] [id number] [facility] 2020-04-29 10:45:00 2020-04-29 10:45:00 Outpatient DANY THOMPSON [facility] [id number] [facility] 2020-04-29 00:00:00 2020-04-29 00:00:00 Telephone Dany Carias [facility] 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 [facility] 1.2.840.114 350.1.13.10 4.2.7.2.686 [id number] [facility] 2020-04-22 00:00:00 2020-04-22 00:00:00 Nurse Triage Radha Lynn Lemus [facility] 1.2.840.114 350.1.13.10 4.2.7.2.686 [id number] [facility] 2020-04-09 00:00:00 2020-04-09 00:00:00 Case Management Dany Carias [facility] 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 [facility] 1.2.840.114 350.1.13.10 4.2.7.2.686 [id number] [facility] 2020-04-08 11:32:55 2020-04-08 12:14:18 Shot Grinder Operator Visit Ultrasound, Tracey Trammell [facility] 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 [facility] 1.2.840.114 350.1.13.10 4.2.7.2.686 [id number] [facility] 2020-04-08 11:30:00 2020-04-08 11:30:00 Outpatient P [facility] [id number] [facility] 2020-04-08 00:00:00 2020-04-08 00:00:00 Abstract Dany Carias [facility] 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 [facility] 1.2.840.114 350.1.13.10 4.2.7.2.686 [id number] [facility] 2020-04-02 23:15:00 2020-04-03 01:12:00 Emergency Yoshi Esparza [facility] ([facility]) 1.2.840.114 350.1.13.10 4.2.7.2.686 [id number] [facility] 2020-04-02 00:00:00 2020-04-02 00:00:00 Telephone D[address] Carias [facility] 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 [facility] 1.2.840.114 350.1.13.10 4.2.7.2.686 [id number] [facility] 2020-04-02 00:00:00 2020-04-02 00:00:00 Telephone Dany Carias [facility] 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 [facility] 1.2.840.114 350.1.13.10 4.2.7.2.686 [id number] [facility] 2020-04-01 09:25:04 2020-04-01 11:05:29 Initial Visit Dany Carias 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 1.840.114 350.1.13.10 4.2.7.2.686 [id number] [facility] 2020-04-01 08:30:00 2020-04-01 08:30:00 Outpatient R [facility] [id number] [facility] 2020-04-01 00:00:00 2020-04-01 00:00:00 Orders Only Doctor Unassigned, [place] [facility] 1..114 350.1.13.10 4.2.7.2.686 [id number] [facility] 2019-12-18 09:30:00 2019-12-18 09:30:00 Outpatient R [facility] [id number] [facility] 2019-10-01 00:00:00 2019-10-01 00:00:00 Patient Secure Msg Doctor Unassigned, [place] [facility] 1.2840.114 350.1.13.10 4.2.7.2.686 [id number] [facility] 2019-09-26 00:00:00 2019-09-26 00:00:00 Patient Secure Msg [facility] Building 1.2.840.114 350.1.13.10 4.2.7.2.686 [id number] [facility] 2019-09-21 11:10:44 2019-09-21 23:59:00 Hospital Encounter Minoo Flores [facility] 1.2.840.114 350.1.13.10 4.2.7.2.686 [id number] [facility] 2019-09-21 11:00:00 2019-09-21 11:09:00 Hospital Encounter Minoo Flores [facility] 1.2.840.114 350.1.13.10 4.2.7.2.686 [id number] [facility] 2019-09-21 09:56:26 2019-09-21 10:59:00 Hospital Encounter Minoo Flores [facility] 1.2.840.114 350.1.13.10 4.2.7.2.686 [id number] [facility] 2019-09-21 00:00:00 2019-09-21 00:00:00 Outpatient R MINOO FLORES [facility] [id number] [facility] 2019-09-21 00:00:00 2019-09-21 00:00:00 Patient Secure Msg Minoo Flores [facility] BUILDING 1.2.840.114 350.1.13.10 4.2.7.2.686 [id number] [facility] 2019-09-21 00:00:00 2019-09-21 00:00:00 Case Management Minoo Flores [facility] Building 1.2.840.114 350.1.13.10 4.2.7.2.686 [id number] [facility] 2019-09-21 00:00:00 2019-09-21 00:00:00 Patient Secure Msg Minoo Flores [facility] Building 1.2.840.114 350.1.13.10 4.2.7.2.686 [id number] [facility] 2019-09-20 10:01:43 2019-09-20 10:16:43 Laboratory Only Only, Adc Test Kevan Beaulieu [facility] 1.2.840.114 350.1.13.10 4.2.7.2.686 [id number] [facility] 2019-09-20 09:55:41 2019-09-20 10:10:41 Shot Grinder Operator Visit Pob, Adc Lab Main Minoo Flores [facility] Building 1.2840.114 350.1.13.10 4.2.7.2.686 [id number] [facility] 2019-09-20 00:00:00 2019-09-20 00:00:00 Outpatient R MINOO FLORES [facility] [id number] [facility] 2019-09-20 00:00:00 2019-09-20 00:00:00 Orders Only Doctor Unassigned, [place] [facility] 1.2840.114 350.1.13.10 4.2.7.2.686 [id number] [facility] 2019-09-19 13:45:12 2019-09-19 15:57:17 Telemedici ne Visit Minoo Flores [facility] 1.2.840.114 350.1.13.10 4.2.7.2.686 [id number] [facility] 2019-09-19 09:45:00 2019-09-19 09:45:00 Outpatient R MINOO FLORES [facility] [id number] [facility] 2019-09-19 00:00:00 2019-09-19 00:00:00 Telephone Minoo Flores [facility] Office Building One 1.114 350.1.13.10 4.2.7.2.686 [id number] [facility] 2019-09-14 12:46:19 2019-09-14 13:54:37 Urgent Care Pob1, Acute Care Clinic Florcharleen Tyrese [facility] Office Building One 1.114 350.1.13.10 4.2.7.2.686 [id number] [facility] 2019-09-14 13:00:00 2019-09-14 13:00:00 Outpatient R PHUONGBERTHATYRESE [facility] [id number] [facility] 2019-08-28 11:00:00 2019-08-28 11:00:00 Outpatient R MELODY GAO [facility] [id number] [facility] 2019-08-22 08:59:00 2019-08-24 07:24:30 Inpatient HCACL MALACHI [id number] [facility] 2019-08-23 15:07:25 2019-08-23 16:34:23 Urgent Care Provider, [facility] Building One .114 350.1.13.10 4.2.7.2.686 [id number] [facility] 2019-08-23 15:40:00 2019-08-23 15:40:00 Outpatient R [facility] [id number] [facility] 2019-08-22 14:16:15 2019-08-22 16:10:00 Emergency Kvng Chandra R [facility] ([facility]) 1.2.840.114 350.1.13.10 4.2.7.2.686 [id number] [facility] 2019-08-22 13:26:07 2019-08-22 13:41:07 Nurse Visit Nurse, [facility] Unknown, Attending [facility] 1.2.840.114 350.1.13.10 4.2.7.2.686 [id number] [facility] 2019-08-22 13:30:00 2019-08-22 13:30:00 Outpatient R UNKNOWN, ATTENDING [facility] [id number] [facility] 2019-08-22 00:00:00 2019-08-22 00:00:00 Telephone Simba Rivera [facility] 1.2.840.114 350.1.13.10 4.2.7.2.686 [id number] [facility] 2019-08-21 00:00:00 2019-08-21 00:00:00 Patient Secure Msg Doctor Unassigned, [place] [facility] 1.2.840.114 350.1.13.10 4.2.7.2.686 [id number] [facility] 2019-08-19 21:26:07 2019-08-19 21:27:00 Emergency Simba Rivera [facility] 1.2.840.114 350.1.13.10 4.2.7.2.686 [id number] [facility] 2019-08-19 00:00:00 2019-08-19 00:00:00 Orders Only Doctor Unassigned, [place] [facility] 1.2.840.114 350.1.13.10 4.2.7.2.686 [id number] [facility] Results Test Description Test Time Test Comments Results Result Co mments Source [facility] [id number] 20:37:00* Test Item Value Reference Range Interpretation Comme nts POCT PREG (test code = 1605) Negative On board controls acceptable with C Line (test code = 3574) Yes POCT PREG LOT # (test code = 3575) POCT PREG TEST DATE ( test code = 3576) [facility] [id number] 20:37:00* Test Item Value Reference Range Interpretation Comme nts POCT PREG (test code = 1605) Negative On board controls acceptable with C Line (test code = 3574) Yes POCT PREG LOT # (test code = 3575) POCT PREG TEST DATE ( test code = 3576) [facility] URINALYSIS W/O SPECIFIC [id number] 20:36:00* Test Item Value Reference Range Interpretation [...] = 3257) trace Negative - Negati ve [facility] URINALYSIS W/O SPECIFIC [id number] 20:36:00* Test Item Value Reference Range Interpretation [...] = 3257) trace Negative - Negati ve [facility] URINALYSIS W/O SPECIFIC [id number] 20:36:00* Test Item Value Reference Range Interpretation [...] = 3257) trace Negative - Negati ve [facility]ARS-CoV-2 (COVID-19), RT-PCR/[id number] 15:19:39* Test Item Value Reference Range Interpretation Comments SARS-CoV-2 INTERPRETATION (test code = 35612) NEGATIVE SEE NOTE SARS-CoV-2 R NA NOT [...] prevalence is high. SOURCE (test code = 08301) NASOPHARYNGEAL Note: Methodolog y is Dannie Stefani Real-Time RT-PCR. The expected result or reference range is NEGATIVE (Not Detected). For more information regarding COVID-19 testing to include clinicalinformation, methodology detail, intended use, FDA authorization andrecommended fact sheets for patients or healthcare providers, see [employer] Announcement: SARS-CoV-2 (COVID-19) by NAAT at URL below (note,fact sheets are provided by method given in report:https://www.[employer].com/clinicians/cl ient-communications/ Alternatively, see downloadable PDF fact sheet at:https://www.ItrybeforeIbuy/QQOAU-05-HJ-PCR UNLESS OTHERWISE INDICATED, ALL TESTING PERFORMED [facility] PATHOLOGY [employer] [address] [place] [address] PEDIATRIC MEDICAL ASSISTANT: OCTAVIANO GUZMAN M.D. CLIA NUMBER [id number] [facility] [place]. [id number] COMPREHENSIVE METABOLIC [id number] 10:12:00* Test Item Value Reference Range Interpretation [...] code = ALKP) 65 IUnit/L 20-125 N [id number] 10:12:00* Test Item Value Reference Range Interpretation Comme nts TROPONIN-I (test code = TROPI) < 0.015 ng/mL 0.000-0.045 N Negative: <= 0.0 45 Positive: >= 0.046 Correlation with serial results, other cardiac markers andclinical findings is necessary to determine the clinicalsignificance of this result. Results using different methodologies should not be comparedto one another as quantitative results may vary by method. COMPREHENSIVE METABOLIC [id number] 10:11:00* Test Item Value Reference Range Interpretation [...] ( test code = ALKP) IUnit/L 20-125 [id number] 10:11:00* Test Item Value Reference Range Interpretation Comme [facility] TROPONIN-I (test code = TROPI) < 0.015 ng/mL 0.000-0.045 N Negative: <= 0.0 45 Positive: >= 0.046 Correlation with serial results, other cardiac markers andclinical findings is necessary to determine the clinicalsignificance of this result. Results using different methodologies should not be comparedto one another as quantitative results may vary by method. PROTHROMBIN [id number] 09:59:00* Test Item Value Reference Range Interpretation [...] Acute Myocardial Infarction (to prevent recurrent infarct). [id number] 09:59:00* Test Item Value Reference Range Interpretation Comme nts D-DIMER (test code = DDIMER) 224 ng/mlFEU <=500 N THROMBOSIS AND/O R PULMONARY EMBOLISM AND THE CLINICAL CUT- OFF VALUE FOR EXCLUSION (500 ng/mL FEU) OF THESE CONDITIONSIS VALIDATED BY THE MANAGER GAMING OF THE METHOD. A NEGATIVE D-DIMER RESULT WHEN COMBINED WITH A CLINICALASSESSMENT OF LOW PRETEST PROBABILITY HAS BEEN SHOWN TO HAVEA HIGH NEGATIVE PREDICTIVE VALUE OF DVT OR PE. D-DIMER VALUES >500 ng/mL FEU ARE NOT DIAGNOSTIC FOR DVT, PEor DIC WITHOUT OTHER CONFIRMATORY TESTS AND APPROPRIATECLINICAL EUALUATIONS. CBC W/AUTO [id number] 09:56:00* Test Item Value Reference Range Interpretation [...] = MDIFF) NO - XR CHEST 1 [id number] 09:56:00FAX: Dallas Cain MD [phone] [place]: St: PRE Name: CHEYENNERAGHAVENDRA KEARNEYAGUS [facility] : 1985 Age/S: 34/F [address] [place] [address] Unit #: [id number] Loc: [place] [address] Phys: Dallas Cain MD Acct: [id number] Dis Date: Status: PRE ER PHONE #: [phone] Exam Date: 08/22/2019 1003 FAX #: [phone] Reason: Chest Pain EXAMS: CPT CODE: [id number] XR CHEST 1 V 24728 PROCEDURE: CHEST SINGLE VIEW INDICATION: Chest Pain COMPARISON: There are no previous relevant studies available for correlation. FINDINGS: The lungs are clear. No pleural abnormality. The cardiomediastinal silhouette is normal for projection. The bony thorax is intact. IMPRESSION: Normal radiograph. SL: [id number] at 0956 Reported and signed by: Samson Sousa M.D. CC: Dallas Cain MD Technologist: CARLEY Linda) Trnscrd Date/Time/By:08/22/2019 (0956) : By: ZaraL Orig Print D/T: S: 08/22/2019 (1003) PAGE 1 Signed Report Notes Date/Time Note Provider Source 2022-09-01 09:11:30 [id number]+BsmZGknw3p 4vRGjwDCV8RhycbxXjLiR/hrm5508-66-63Q01: 11:30 09/01/22Community Wellness and Outreach team contacted patient to assist in completing Health Maintenance topics that are overdue. Raghavendra Quinn [id number] Number: 1st attemptHealth Maintenance topics addressed: Health Maintenance Due Topic Date Due SARS-CoV-2 (COVID-19) Vaccine (1) Never done Depression Screening 09/18/2020 Call outcome: Attempted to get in contact with patient regarding missed annual visit appointment. No answer. LVM for patient to return phone call. [id number] encounter UuxxML5102-49-88N81:16:58Telephone encounter NoteTXT1.2.840.275316.1.13.104.2.7.2.72 7879|[id number] for patient [id number] Bochas [address] Ss[id number] CDQWWCMFJMSONRHFWKU2697-91-13P51:16:581 .2.840.021579.1.72.3.15|1.2.840.216433. 1.13.104.2.7.2.727879_[id number] Deja Strong Count includes the [facility] 2019-08-22 09:39:00 [id number]/163qsbV25G9ltgB ujZJjnJ7A6bWzJ7A8Lxo8JFJrwKVNB+u8AlplO3 bygWC4663-07-36T07:39:00 [facility] ([facility])EMERGENCY PROVIDER REPORTREPORT#:[id number] REPORT STATUS: SignedDATE:08/22/19 TIME: 938 PATIENT: RAGHAVENDRA QUINN UNIT #: [id number]#: [id number] ROOM/BED:AGE: 34 SEX: F PCP PHYS:SERVICE DT: [...] Vomiting. Free Text HPI NotesFree Text HPI Ufrst55-kvfm-lrv female presents emergency department for evaluation of [...] PO Q8H PRN PRN PAIN #30 DC: 08/22/19 0923 Therapy completed Pt reports no significant: Past medical historyPast Surgical History:Reports: Appendectomy. Smoking status for patients 13 years old or older: Never SmokerOther Social History Local resident Physical Exam Vital SignsVital SignsFirst Documented: Result Date Time Pulse Ox 100 08/21 0919 B/P 121/77 08/21 918 B/P Mean 91 08/21 918 O2 Delivery Room air 08/21 918 Temp 99.1 08/21 918 Pulse 115 08/21 09 Resp 18 08/21 918 Last Documented: Result Date Time Pulse Ox 100 08/21 0819 B/P 121/77 08/21 918 B/P Mean 91 [...] (Auto) (14.0 - 32.0 %) 37.2 H [place] % (Auto) (4.8 - 9.0 %) 7.7 Eos % (Auto) (0.3 - 3.7 %) 0.8 Baso % (Auto) (0.0 - 2.0 %) 0.5 Neut # (Auto) (2.0 - 7.6 x10 3/uL) 7.13 Lymph # (Auto) (1.0 - 3.8 x10 3/uL) 4.96 H [place] # (Auto) (0.1 - 0.8 x10 3/uL) [...] Entered: 08/22/2019 1003 IMPRESSION: Normal radiograph. SL: [id number] By: Krissy Sousa M.D. Point of Care [...] Status Admin Aspirin 0 .STK-MED ONE 08/21 0837 DC PO Aspirin 324 MG X1ED STA 08/21 0932 DC 08/21 PO 08/21 0933 0940 Electrolytic, Caloric, And Carlitos Sig/Vince Start time Last Medication Dose Route Stop Time Status Admin Sodium Chloride 0 ASDIR PRN 08/21 0945 AC IV 08/22 0832 Patient Discharge Departure Vital Signs/ConditionVital SignsFirst Documented: Result Date Time Pulse Ox 100 08/21 0919 B/P 121/77 08/21 0919 B/P Mean 91 08/21 0919 O2 Delivery Room air 08/21 918 Temp 99.1 08/21 0919 Pulse 115 08/21 0919 Resp 18 08/21 0919 Last Documented: Result Date Time Pulse Ox 100 08/21 0919 B/P 121/77 08/21 0919 B/P Mean 91 08/21 0919 O2 Delivery Room air 08/21 918 Temp 99.1 08/21 0919 Pulse 115 08/21 0919 Resp 18 08/21 0919 All vital [...] Visit ScriptsNo Known Home Medications at 1030RPT #:[id number] OF REPORTEDEmermercy emergency departmentcy department vqowzc7458-71-16H50:39:00G.[id number] -0334AVAvailable for patient spqiMOGUKORWZMVLWB5435-00-16L65:30:57 [facility]"
[2023-04-06 09:07] LABS: Specific Gravity 1.026 (1.005-1.030)
--- NOTE | 2023-04-06 09:40 | RAD REPORT ---
EXAM DESCRIPTION: CT - Head Brain Wo Cont - 04/06/2023 9:30 am CLINICAL HISTORY: HEADACHE COMPARISON: Head Brain Wo Cont dated 07/09/2021; Head Brain Wo Cont dated 03/29/2021 TECHNIQUE: All CT scans are performed using dose optimization technique as appropriate and may inclu de automated exposure control or mA/KV adjustment according to patient size. FINDINGS: No intracranial hemorrhage, hydrocephalus or extra-axial fluid collection.No areas of brai n edema or evidence of midline shift. The paranasal sinuses and mastoids are clear. The calvarium is intact. IMPRESSION: No acute intracranial abnormality.
--- NOTE | 2023-04-06 09:50 | EDPHYS ---
Physician Documentation [facility] Name: Goyo Solorio Age: 38 yrs Sex: Female : 1985 Arrival Date: 04/06/2023 Time: 07:56 Bed 11 Private MD: ED Physician Edu Rucker HPI: 04/06 09:27 This 38 yrs old Female presents to ER via Ambulatory with complaints of Eye rn Problem, Headache. 09:27 The patient is experiencing redness, The patient sustained None. to both eyes, caused rn by an unknown mechanism. Onset: The symptoms/episode began/occurred yesterday. Aggravated by nothing. Alleviated by nothing. Severity of symptoms: At their worst the symptoms were mild in the emergency department the symptoms have improved. The patient has not experienced similar symptoms in the past. Patient reports bilateral eye redness that began yesterday. No injury or splash or chemical to eyes. Associated with a very mild headache that is behind both her eyes. Denies history of migraines. No head injury. No fever. No focal neurological deficit.. 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 - Social history:: Smoking status: Patient denies any tobacco usage or history of. - Family history:: not pertinent. - Hospitalizations: : No recent hospitalization is reported. ROS: 09:27 Constitutional: Negative for fever, chills, and weight loss, Eyes: Positive for rn bilateral eye redness Cardiovascular: Negative for chest pain, palpitations, and edema, Respiratory: Negative for shortness of breath, cough, wheezing, and pleuritic chest pain, Abdomen/GI: Negative for abdominal pain, nausea, vomiting, diarrhea, and constipation, MS/Extremity: Negative for injury and deformity, Skin: Negative for injury, rash, and discoloration, Neuro: Negative for weakness, numbness, tingling, and seizure Exam: 09:27 Constitutional: This is a well developed, well nourished patient who is awake, alert, rn and in no acute distress. Head/Face: Normocephalic, atraumatic. Eyes: Pupils equal round and reactive to light, extra-ocular motions intact. Lids and lashes normal. Mild injection of bilateral conjunctivae. Cornea within normal limits. Periorbital areas with no swelling, redness, or edema. Neck: No Meningismus. Neuro: Awake and alert, GCS 15, oriented to person, place, time, and situation. Cranial nerves II-XII grossly intact. Motor strength 5/5 in all extremities. Sensory grossly intact. Normal gait. Vital Signs: 08:04 BP 122 / 81; Pulse 80; Resp 17; Temp 97.2; Pulse Ox 100% ; Pain 2/10; ll1 10:02 BP 113 / 81; Pulse 77; Resp 16; Pulse Ox 100% on R/A; ll1 08:04 Pain Scale: Adult ll1 MDM: 08:02 Patient medically screened. rn 09:49 Differential diagnosis: Glaucoma, migraine, ocular migraine, conjunctivitis. Data rn reviewed: vital signs, nurses notes, radiologic studies, CT scan, and as a result, I will discharge patient. Counseling: I had a detailed discussion with the patient and/or guardian regarding the historical points, exam findings, and any diagnostic results supporting the discharge/admit diagnosis, radiology results, the need for outpatient follow up, to return to the emergency department if symptoms worsen or persist or if there are any questions or concerns that arise at home. Special discussion: I discussed with the patient/guardian in detail that at this point there is no indication for admission to the hospital. It is understood, however, that if the symptoms persist or worsen the patient needs to return immediately for re-evaluation. Based on the history and exam findings, there is no indication for further emergent testing or inpatient evaluation. I discussed with the patient/guardian the need to see the neurologist for further evaluation of the symptoms. I discussed with the patient/guardian the need to see the opthamologist for further evaluation of the symptoms. ED course: Ocular pressures tested with Triston-Pen. Both eyes under 15. No evidence of glaucoma. CT head is negative. I have personally reviewed all of the results, including but not limited to blood tests and imaging deemed necessary to safely discharge this patient at this time. All results given to and printed out for patient. I personally went over all the results with the patient and answered all questions. Patient will follow-up with PCP and or specialist as discussed. Return precautions given and understood.. 04/06 08:30 Order name: Test, Urine; Complete Time: 09:26 rn 04/06 08:07 Order name: CT Head Brain wo Cont; Complete Time: 09:48 rn Administered Medications: 09:36 Drug: Tetracaine Ophthalmic Drops 0.5 % 1 drops Ophthalmic once Route: Ophthalmic; ll1 Site: both eyes; 11:55 Follow up: Response: No adverse reaction ll1 Disposition Summary: 04/06/23 09:50 Discharge Ordered Notes: Location: Home rn Problem: new rn Symptoms: are unchanged rn Condition: Stable rn Diagnosis - Other conjunctivitis rn - Headache rn Followup: rn - With: Private Physician - When: As needed - Reason: Recheck today's complaints, Re-evaluation by your physician Discharge Instructions: - Discharge Summary Sheet rn - General Headache Without Cause rn Forms: - Medication Reconciliation Form rn - Thank You Letter rn - Antibiotic burnisher - Prescription Opioid Use rn - Patient Portal Instructions rn - Leadership Thank You Letter rn - Work release form ll1 Prescriptions: - Vigamox 0.5 % Ophthalmic Drops - instill 1 drop OPHTHALMIC route every 8 hours for 7 days; 5 milliliter; rn Refills: 0, Product Selection Permitted Signatures: Dispatcher [employer] EDEdu Nguyen MD MD rn Bryson, James, RN RN jb4 Paul Pennington RN RN ll1
--- NOTE | 2023-04-06 09:50 | ER ---
Nurse's Notes [facility] Name: Goyo Solorio Age: 38 yrs Sex: Female : 1985 Arrival Date: 04/06/2023 Time: 07:56 Bed 11 Private MD: Diagnosis: Other conjunctivitis;Headache Presentation: 04/06 08:04 Chief complaint: Patient states: B eye redness started yesterday. Slight VILLELA since. jb4 Coronavirus screen: Client denies travel out of the [place] in the last 14 days. At this time, the client does not indicate any symptoms associated with coronavirus-19. Ebola Screen: Patient denies travel to an Ebola-affected area in the 21 days before illness onset. Initial Sepsis Screen: Does the patient meet any 2 criteria? No. Patient's initial sepsis screen is negative. Does the patient have a suspected source of infection? No. Patient's initial sepsis screen is negative. Risk Assessment: Do you want to hurt yourself or someone else? Patient reports no desire to harm self or others. Onset of symptoms was April 05, 2023. 08:04 Method Of Arrival: Ambulatory jb4 08:04 Acuity: EUGENIO 4 jb4 Triage Assessment: 08:05 General: Appears uncomfortable, Behavior is calm, cooperative, appropriate for age. jb4 Pain: Complains of pain in head Pain currently is 2 out of 10 on a pain scale. Quality of pain is described as aching, Pain began 1 day ago. EENT: Reports redness to both eyes yesterday. Neuro: Level of Consciousness is awake, alert, obeys commands, Reports headache B temporal area. 10:02 Headache History: Denies prior headaches. Pain: Also complains of no other associated ll1 symptoms. 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 - Social history:: Smoking status: Patient denies any tobacco usage or history of. - Family history:: not pertinent. - Hospitalizations: : No recent hospitalization is reported. Screenin:02 [facility] ED Fall Risk Assessment (Adult) Score/Fall Risk Level 0 - 2 = Low Risk ll1 Oriented to surroundings, Maintained a safe environment, Educated pt \T\ family on fall prevention, incl call for assistance when getting out of bed, Hourly rounding (assess needs \T\ fall precautionary measures) done. Abuse screen: Denies threats or abuse. Nutritional screening: No deficits noted. Tuberculosis screening: No symptoms or risk factors identified. Assessment: 09:00 Reassessment: Patient and/or family updated on plan of care and expected duration. Pain ll1 level reassessed. 10:00 Reassessment: No changes from previously documented assessment. Patient and/or family ll1 updated on plan of care and expected duration. Pain level reassessed. Patient is alert, oriented x 3, equal unlabored respirations, skin warm/dry/pink. Vital Signs: 08:04 BP 122 / 81; Pulse 80; Resp 17; Temp 97.2; Pulse Ox 100% ; Pain 2/10; ll1 10:02 BP 113 / 81; Pulse 77; Resp 16; Pulse Ox 100% on R/A; ll1 08:04 Pain Scale: Adult ll1 ED Course: 08:00 Patient arrived in ED. mr 08:02 Edu Rucker MD is Attending Physician. rn 08:04 Arm band placed on. jb4 08:05 Triage completed. jb4 08:15 Patient has correct armband on for positive identification. Call light in reach. Side ll1 rails up X 1. Provided Education on: ER procedures and process. 09:31 CT Head Brain wo Cont In Process Unspecified. EDMS 10:02 No provider procedures requiring assistance completed. Patient did not have IV access ll1 during this emergency room visit. Administered Medications: 09:36 Drug: Tetracaine Ophthalmic Drops 0.5 % 1 drops Ophthalmic once Route: Ophthalmic; ll1 Site: both eyes; 11:55 Follow up: Response: No adverse reaction ll1 Medication: 10:02 VIS not applicable for this client. ll1 Outcome: 09:50 Discharge ordered by . rn 10:02 Patient left the ED. ll1 10:02 Discharged to home ambulatory, ll1 10:02 Condition: stable 10:02 Discharge instructions given to patient, Instructed on discharge instructions, follow up and referral plans. the need for admit, Demonstrated understanding of instructions, follow-up care, medications, Prescriptions given X 1, Signatures: Dispatcher [employer] EDLanie Laboy, Reg Reg mr Edu Rucker MD MD rn Bryson, James, RN RN jb4 Paul Pennington RN RN ll1 Corrections: (The following items were deleted from the chart) 08:12 08:04 BP 122 / 81; Pulse 80bpm; Resp 17bpm; Pulse Ox 100%; Pain 2/10, Adult; edgard ll1
[2023-04-06 10:10] VITALS: BP 122/81; TEMP 97.2; O2SAT 100
== END ==
LOC: ER 07:56
DX: H10.89 Other conjunctivitis (principal); R51.9 Headache, unspecified
CPT/HCPCS: 70450; 81025

== ENCOUNTER 2023-05-15 20:59 | Emergency (ER) | payer OTHER, SELFPAY ==
--- OUTSIDE RECORDS SUMMARY | 2023-05-15 21:05 | XMS REPORT | Continuity of Care Document ---
Author Name Unknown Address [address] [facility] [place] [address] [facility] thconnect Address [address] [facility] [place] [address] Care Team Providers Care Lab Manager Name Role Phone JARED COLLADO Primary Care Physician Unavailab RAMON Valentine Attending Clinician Deja Dacosta MA Attending Clinician UnavailTYRESE Cartwright Attending Clinician Unavailable JARED COLLADO Attending Clinician Unavailable ANALISA SUAREZ Attending Clinician Unavail able Laura Joshua Attending Clinician [phone] Unknown, Attending Attending Clinician Unavailab LAURA Huntley Attending Clinician Unavailable DEE HUFFMAN Attending Clinician Unavailable Pgy3 Attending Clinician Unavailable Dee Huffman MD Attending Clinician [phone] Doctor Unassigned, [place] Attending Clinician U Deja Waldrop CNM Attending Clinician DEJA ÁLVAREZ Attending Clinician Unavaila [facility], [facility] Temp Attending Clinician Kia vailable VANAPHAN, KHANH Attending Clinician Unavailable Phuong JOURNEYMAN PRESSMAN, Tyrese Attending Clinician [phone] Tobias JOURNEYMAN PRESSMAN, Jared Attending Clinician [phone] Daniela WHCNP, Analisa Hawkins Attending Clinician + Jv JOURNEYMAN PRESSMAN, Dany R Attending Clinician [phone] DANY CARIAS R Attending Clinician Unavailab RAMÓN Treoj Attending Clinician Unavailable Ramón Heredia PA-C Attending Clinician [phone] Pob, Adc Lab Main Attending Clinician Unavailtita Simon PNP, Shanita Call Attending Clinician [phone] Ramiro HERRERA, Janae Sunshine Attending Clinician Unavaila Manuel Torres Attending Clinician Unavailable Hien PAC, Manuel Ho Attending Clinician [phone] Lab, Ang - Db Attending Clinician Unavailable Shanon Beckham MD Attending Clinician [phone] Octavia JOURNEYMAN PRESSMAN, Oumar Attending Clinician [phone] OUMAR COLEMAN Attending Clinician UnavailJuly Snider LVN Attending Clinician UnaMARIA ISABEL Alvarez Attending Clinician Unavailable Parviz JOURNEYMAN PRESSMAN, Maria Isabel Attending Clinician [phone] GABRIELLE MARTÍNEZ Attending Clinician Unavailable Gabrielle Dillard Attending Clinician +[phone] PAMELA PRESLEY Attending Clinician Unavailab brittany Presley JOURNEYMAN PRESSMAN, Pamela hSort Attending Clinician [phone] GERTRUDE MILLAN Attending Clinician UnavailMINOO Garcia Attending Clinician Unavaila JAG Fay Attending Clinician Unavailable Jag Magana DO Attending Clinician [phone] JOB KASPER Attending Clinician Unavailable Job Kasper MD Attending Clinician [phone] JIMENA MAYO Attending Clinician Unavailable Sarah LEES, Carine Attending Clinician [phone] LAURA, NORA N Attending Clinician Unavailtita Weaver JOURNEYMAN PRESSMAN, Nora Jan Attending Clinician [phone] Roger HERRERA, Leidy Attending Clinician Unavailable Nurse, [facility] Attending Clinician Unava iljames Matthew JOURNEYMAN PRESSMAN, Paris Attending Clinician [phone] Toby Richards MD Attending Clinician [phone] TOBY RICHARDS Attending Clinician Unavailable 1, [facility] Usg Room Attending Clinician Unavaila tonio Diego MD, Daniel Attending Clinician + Tino HERRERA, Mike Attending Clinician Unavailab le Ultrasound, [facility] Attending Clinician Unavaila tonio Domingo MD, Jordan Salcedo Attending Clinician [phone] Julio Da Silva APN Attending Clinician +- [phone] Radha RN, Lynn Lemus Attending Clinician Unavailab brittany Jamil MD, Tracey Attending Clinician [phone] Vilma LEES, Yoshi Attending Clinician [phone] aSndra LEES, Minoo Lemus Attending Clinician + [phone] Only, Adc Test Attending Clinician Unavailable Brittnee LEES, Kevan Attending Clinician +[phone] Pob1, [facility] Attending Clinician Unav MELODY Craig Attending Clinician Unavaila tonio Provider, [facility] Attending Clinician Un available Corazon JOURNEYMAN PRESSMAN, Kvng Banks Attending Clinician [phone] Nurse, s [facility]gent [facility] Attending Clinician Unava ilable UNKNOWN, ATTENDING Attending Clinician Unavailab brittnay Rivera JOURNEYMAN PRESSMAN, Simba Attending Clinician [phone] Manuel STANFORD Admitting Clinician Unavailable GABRIELLE MARTÍNEZ Admitting Clinician Unavailable JIMENA MAYO Admitting Clinician Unavailable Payers Payer Name Policy Type Policy Number Effective Date Expirati on Date Source [facility] MEDICAID [id number] 2019 00:00:00 [facility] [id number] 2016 00:00:00 MEDICAID PENDING PENDING 2019 00:00:00 Problems Condition Name Condition Details Condition Category Status Onset Date Resolution Date Last Treatment Date Treating Clinician Comments Source Urinary tract infection without hematuria, site unspecifie d Urinary tract infection without hematuria, site unspecifie d Disease Active 7-07 00:00: 00 [facility] Vaginal discharge Vaginal discharge Disease Active 6-23 00:00: 00 [facility] Dizziness Dizziness Disease Active 6-08 00:00: 00 [facility] Diverticul osis Diverticul osis Disease Active 5-20 00:00: 00 [facility] Screen for STD (sexually transmitte d disease) Screen for STD (sexually transmitte d disease) Disease Active 5-04 00:00: 00 [facility] Left arm pain Left arm pain Disease Active 4-22 00:00: 00 [facility] Herpes zoster without complicati on Herpes zoster without complicati on Disease Active 4-20 00:00: 00 [facility] Positive D dimer Positive D dimer Disease Active 420 00:00: 00 [facility] History of anxiety History of anxiety Disease Active 2- 00:00: 00 [facility] BMI 32.0-32.9, adult BMI 32.0-32.9, adult Disease Active 2-23 00:00: 00 [facility] Former smoker Former smoker Disease Active 2-23 00:00: 00 [facility] Chest pain, atypical Chest pain, atypical Disease Active 8-12 00:00: 00 [facility] Obesity (BMI 30-39.9) Obesity (BMI 30-39.9) Disease Active 09-28 00:00: 00 [facility] Absence of menstruati on Absence of menstruati on Disease Active 09-28 00:00: 00 [facility] Papanicola ou smear of cervix with low grade squamous intraepith elial lesion (LGSIL) Papanicola ou smear of cervix with low grade squamous intraepith elial lesion (LGSIL) Disease Active 7-24 00:00: 00 [facility] Allergies, Adverse Reactions, Alerts Allergy Name Allergy Type Status Severity Reaction(s) Onset Date Inactive Date Treating Clinician Comments Source No Known Allergie s DA Active U 15 00:00: 00 [facility] No Known Allergie s DA Active U 2012-02 0-06 00:00: 00 [facility] NO KNOWN ALLERGIE S Drug Class [facility] Social History Social Habit Start Date Stop Date Quantity Comments Source [facility]ION [facility] Exposure to SARS-CoV-2 (event) 2022-02-05 00:00:00 2022-02-15 18:53:00 Not sure [facility] History of Social function 2021-07-30 00:00:00 2021-07-30 00:00:00 [facility] Education 2020-11-25 00:00:00 2020-11-25 00:00:00 13 [facility] Alcohol Comment 2020-04-01 00:00:00 2020-04-01 00:00:00 socially [facility] History SDOH Alcohol Frequency 2020-04-01 00:00:00 2020-04-01 00:00:00 99 [facility] History SDOH Alcohol Std Drinks 2020-04-01 00:00:00 2020-04-01 00:00:00 99 [facility] History SDOH Alcohol Binge 2020-04-01 00:00:00 2020-04-01 00:00:00 99 [facility] Alcohol intake 2019-08-19 00:00:00 2019-08-19 00:00:00 Current drinker of alcohol (finding) [facility] Cigarettes smoked current (pack per day) - Reported 2016-09-28 00:00:00 2016-09-28 00:00:00 [facility] Cigarette pack-years 2016-09-28 00:00:00 2016-09-28 00:00:00 [facility] Tobacco use and exposure 2016-09-28 00:00:00 2016-09-28 00:00:00 Smokeless tobacco non-user [facility] History of tobacco use 2016-08-28 00:00:00 Cigarette Smoker [facility] Tobacco Comment 2014-08-23 00:00:00 2014-08-23 00:00:00 smokes 2 x per day. [facility] Sex Assigned At 1985 00:00:00 1985 00:00:00 [facility] Smoking Status Start Date Stop Date Source Ex-smoker 2016-09-28 00:00:00 2016[facility] Ordered Medication Name Filled Medication Name Start Date Stop Date Current Medication? Ordering Clinician Indication Dosage Frequency Signature (SIG) Comments Components Source busPIRone 10 mg tablet 02-15 19:02: 28 Yes 10mg Take 10 mg by mouth as needed. [facility] azithromyci n (ZITHROMAX Z-MARICHUY) 250 mg tablet 02-15 00:00: 00 Yes [id number] Z pack as directed [facility] benzonatate 200 mg capsule 02-15 00:00: 00 02-26 05:59 :00 No [id number] 200mg Take 1 capsule by mouth 3 (three) times daily as needed for Cough for up to 10 days. [facility] albuterol 90 mcg/actuati on inhaler 02-15 00:00: 00 02-26 05:59 :00 No [id number] 2{puff} Inhale 2 Puffs every 6 (six) hours as needed for Wheezing for up to 10 days. [facility] ampicillin 500 mg capsule 2021-02 00:00: 00 Yes [id number] 500mg Take 1 capsule by mouth every 6 (six) hours. [facility] ampicillin 500 mg capsule 2021-02 00:00: 00 01-01 05:59 :00 No [id number] 500mg Take 1 capsule by mouth every 6 (six) hours for 10 days. [facility] norethindro ne 0.35 mg tablet 2021-02 00:00: 00 Yes [id number] 1{tbl} Take 1 tablet by mouth in the morning. [facility] metroNIDAZO LE 500 mg tablet 2021-02 00:00: 00 12-26 05:59 :00 No [id number] 500mg Take 1 tablet by mouth in the morning and 1 tablet in the evening. Do all this for 7 days. [facility] ampicillin 500 mg capsule 15 00:00: 00 09-01 04:59 :00 No [id number] 500mg Take 1 capsule by mouth 4 (four) times daily for 10 days. [facility] citalopram 10 mg tablet 08-19 00:00: 00 Yes [id number] 10mg Take 1 tablet by mouth in the morning. [facility] ibuprofen 600 mg tablet 07-20 00:00: 00 Yes [id number] 600mg Take 1 tablet by mouth every 6 (six) hours as needed for Pain (scale 4-6). [facility] busPIRone 10 mg tablet 07-15 17:04: 42 Yes 10mg Take 10 mg by mouth as needed. [facility] vit 33-iron-fol ic-dha (SELECT-OB + DHA) 29 mg iron-1 mg -250 mg combo pack 08-27 00:00: 00 06-10 00:00 :00 No 1{packe t} Take 1 Packet by mouth daily. [facility] cyclobenzap rine 5 mg tablet 8-14 00:00: 00 04-01 00:00 :00 No [id number] 4 5mg Take 1 tablet by mouth 2 (two) times daily as needed for Muscle Spasms. Can cause drowsiness . [facility] gabapentin 100 mg capsule 8-12 00:00: 00 04-01 00:00 :00 No [id number] 100mg Take 1 capsule by mouth 3 (three) times daily as needed (nerve pain). [facility] Immunizations Ordered Immunization Name Filled Immunization Name Date Status Comments Source TD 2020-09-15 00:00:00 Completed [facility] TDAP 2020-09-15 00:00:00 Completed [facility] TDAP 2020-09-15 00:00:00 Completed [facility] TDAP 2020-09-15 00:00:00 Completed [facility] TDAP 2020-09-15 00:00:00 Completed [facility] TDAP 2020-09-15 00:00:00 Completed [facility] TDAP 2020-09-15 00:00:00 Completed [facility] TDAP 2020-09-15 00:00:00 Completed [facility] TDAP 2020-09-15 00:00:00 Completed [facility] TDAP 2020-09-15 00:00:00 Completed [facility] TDAP 2020-09-15 00:00:00 Completed [facility] TDAP 2020-09-15 00:00:00 Completed [facility] TDAP 2020-09-15 00:00:00 Completed [facility] TDAP 2020-09-15 00:00:00 Completed [facility] TDAP 2020-09-15 00:00:00 Completed [facility] TDAP 2020-09-15 00:00:00 Completed [facility] TDAP 2020-09-15 00:00:00 Completed [facility] TDAP 2020-09-15 00:00:00 Completed [facility] TDAP 2017-02-09 00:00:00 Completed [facility] TDAP 2017-02-09 00:00:00 Completed [facility] TDAP 2017-02-09 00:00:00 Completed [facility] TDAP 2017-02-09 00:00:00 Completed [facility] TDAP 2017-02-09 00:00:00 Completed [facility] TDAP 2017-02-09 00:00:00 Completed [facility] TDAP 2017-02-09 00:00:00 Completed [facility] TDAP 2017-02-09 00:00:00 Completed [facility] TDAP 2017-02-09 00:00:00 Completed [facility] TDAP 2017-02-09 00:00:00 Completed [facility] TDAP 2017-02-09 00:00:00 Completed [facility] TDAP 2017-02-09 00:00:00 Completed [facility] TDAP 2017-02-09 00:00:00 Completed [facility] TDAP 2017-02-09 00:00:00 Completed [facility] TDAP 2017-02-09 00:00:00 Completed [facility] TDAP 2017-02-09 00:00:00 Completed [facility] TDAP 2017-02-09 00:00:00 Completed [facility] TDAP 2017-02-09 00:00:00 Completed [facility] TDAP 2007-02-07 00:00:00 Completed [facility] TDAP 2007-02-07 00:00:00 Completed [facility] TDAP 2007-02-07 00:00:00 Completed [facility] TDAP 2007-02-07 00:00:00 Completed [facility] TDAP 2007-02-07 00:00:00 Completed [facility] TDAP 2007-02-07 00:00:00 Completed [facility] TDAP 2007-02-07 00:00:00 Completed [facility] TDAP 2007-02-07 00:00:00 Completed [facility] TDAP 2007-02-07 00:00:00 Completed [facility] TDAP 2007-02-07 00:00:00 Completed [facility] TDAP 2007-02-07 00:00:00 Completed [facility] TDAP 2007-02-07 00:00:00 Completed [facility] TDAP 2007-02-07 00:00:00 Completed [facility] TDAP 2007-02-07 00:00:00 Completed [facility] TDAP 2007-02-07 00:00:00 Completed [facility] TDAP 2007-02-07 00:00:00 Completed [facility] TDAP 2007-02-07 00:00:00 Completed [facility] TDAP 2007-02-07 00:00:00 Completed [facility] TDAP Unknown Completed [facility] TDAP Unknown Completed [facility] TDAP Unknown Completed [facility] TDAP Unknown Completed [facility] TDAP Unknown Completed [facility] TDAP Unknown Completed [facility] TDAP Unknown Completed [facility] TDAP Unknown Completed [facility] TDAP Unknown Completed [facility] TDAP Unknown Completed [facility] TDAP Unknown Completed [facility] TDAP Unknown Completed [facility] TDAP Unknown Completed [facility] TDAP Unknown Completed [facility] TDAP Unknown Completed [facility] TDAP Unknown Completed [facility] TDAP Unknown Completed [facility] TDAP Unknown Completed [facility] TDAP Unknown Completed [facility] TDAP Unknown Completed [facility] TDAP Unknown Completed [facility] TDAP Unknown Completed [facility] TDAP Unknown Completed [facility] TDAP Unknown Completed [facility] TDAP Unknown Completed [facility] TDAP Unknown Completed [facility] TDAP Unknown Completed [facility] TDAP Unknown Completed [facility] TDAP Unknown Completed [facility] TDAP Unknown Completed [facility] TDAP Unknown Completed [facility] TDAP Unknown Completed [facility] TDAP Unknown Completed [facility] Vital Signs Vital Name Observation Time Observation Value Comments S ource Systolic blood pressure 2022-02-16 01:01:00 124 mm[Hg] [facility] Diastolic blood pressure 2022-02-16 01:01:00 87 mm[Hg] [facility] Heart rate 2022-02-16 01:01:00 94 /min [facility] Body temperature 2022-02-16 01:01:00 37.33 Brigitte [facility] Respiratory rate 2022-02-16 01:01:00 17 /min [facility] Body height 2022-02-16 01:01:00 154.9 cm [facility] Body weight 2022-02-16 01:01:00 82.781 kg [facility] BMI 2022-02-16 01:01:00 34.48 kg/m2 [facility] Oxygen saturation in Arterial blood by Pulse oximetry 2022-02-16 01:01:00 100 /min [facility] Systolic blood pressure 2022-01-08 19:57:00 123 mm[Hg] [facility] Diastolic blood pressure 2022-01-08 19:57:00 78 mm[Hg] [facility] Heart rate 2022-01-08 19:57:00 103 /min [facility] Body temperature 2022-01-08 19:57:00 36 Brigitte [facility] Respiratory rate 2022-01-08 19:57:00 18 /min [facility] Body height 2022-01-08 19:57:00 154.9 cm [facility] Body weight 2022-01-08 19:57:00 82.056 kg [facility] BMI 2022-01-08 19:57:00 34.18 kg/m2 [facility] Systolic blood pressure 2021-12-18 20:33:00 110 mm[Hg] [facility] Diastolic blood pressure 2021-12-18 20:33:00 70 mm[Hg] [facility] Heart rate 2021-12-18 20:33:00 96 /min [facility] Body temperature 2021-12-18 20:33:00 36.56 Brigitte [facility] Respiratory rate 2021-12-18 20:33:00 17 /min [facility] Body height 2021-12-18 20:33:00 154.9 cm [facility] Body weight 2021-12-18 20:33:00 79.742 kg [facility] BMI 2021-12-18 20:33:00 33.22 kg/m2 [facility] Procedures Procedure Date / Time Performed Performing Clinician Source DISCLOSURE AND CONSENT, MEDICAL AND SURGICAL PROCEDURES 2022-01-08 06:01:00 Doctor Unassigned, [place] [facility] HCV ANTIBODY 2021-12-18 21:53:00 [facility] 2021-12-18 21:53:00 Deja Álvarez [facility] HIV 1/2 AG-AB WITH REFLEX 2021-12-18 21:53:00 Deja Álvarez [facility] PAP SMEAR-LIQUID BASED-CP 2021-12-18 21:53:00 Deja Álvarez [facility] GALV ONLY - SYPHILIS IGG/IGM 2021-12-18 21:53:00 Deja Álvarez [facility] URINE CULTURE 2021-12-18 21:53:00 Deja Álvarez [facility] GC & CHLAMYDIA AMPLIFIED ASSAY 2021-12-18 21:53:00 Deja Álvarez [facility] HIGH RISK HPV-THIN PREP 2021-12-18 21:53:00 Deja Álvarez [facility] TRICHOMONAS AMPLIFIED ASSAY 2021-12-18 21:53:00 Deja Álvarez [facility] POCT TEST 2021-12-18 00:00:00 Nidhi Álvarez [facility] POCT URINALYSIS W/O SPECIFIC GRAVITY 2021-12-18 00:00:00 Deja Álvarez [facility] Encounters Start Date/Time End Date/Time Encounter Type Admission Type Attending [facility] Facility Care Department Encounter ID Source 2020-12-07 15:42:49 Emergency [facility] [id number] [facility] 2020-12-07 01:14:36 Emergency [facility] [id number] [facility] 2020-12-05 06:56:18 Emergency [facility] [id number] [facility] 2020-12-05 06:14:29 Emergency [facility] [id number] [facility] 2023-03-21 13:20:00 2023-03-21 13:20:00 Outpatient R [facility] [id number] [facility] 2022-10-26 17:46:44 2022-10-26 17:46:44 Outpatient [facility] [id number] Colton Persaud 2022-09-01 00:00:00 2022-09-01 00:00:00 Telephone Deja Strong [id number] [facility] 2022-04-16 14:00:00 2022-04-16 14:00:00 Outpatient R PHUONGTYRESE [facility] [id number] [facility] 2022-03-31 15:30:00 2022-03-31 15:30:00 Outpatient R JARED COLLADO [facility] [id number] [facility] 2022-03-23 10:30:00 2022-03-23 10:30:00 Outpatient R JARED COLLADO [facility] [id number] [facility] 2022-03-22 09:30:00 2022-03-22 09:30:00 Outpatient R JARED COLLADO [facility] [id number] [facility] 2022-02-15 18:40:00 2022-02-15 19:00:00 Urgent Care Laura Lowe Unknown, [facility]ending [facility] .[id number] [facility] 2022-02-15 18:40:00 2022-02-15 18:40:00 Outpatient R LAURA LOWE [facility] [id number] [facility] 2022-01-08 13:30:00 2022-01-08 15:04:40 Outpatient R DEE HUFFMAN [facility] [id number] [facility] 2022-01-08 13:30:00 2022-01-08 15:04:40 Office Visit Pgy3 Dee Huffman [facility] .0.114 350.1.13.10 4.2.7.2.686 [id number] [facility] 2022-01-08 00:00:00 2022-01-08 00:00:00 Orders Only Doctor Unassigned, Astor [facility] 1.840.114 350.1.13.10 4.2.7.2.686 [id number] [facility] 2022-01-07 00:00:00 2022-01-07 00:00:00 Case Management Deja Álvarez [facility] HAM DOCTOR [facility] MATERNAL & CHILD [facility] 1.2.840.114 350.1.13.10 4.2.7.2.686 [id number] 107 [id number] [facility] 2022-01-07 00:00:00 2022-01-07 00:00:00 Telephone Deja Álvarez [facility] HAM DOCTOR [facility] CHILD [facility] 1.2.840.114 350.1.13.10 4.2.7.2.686 [id number] 107 [id number] [facility] 2022-01-05 00:00:00 2022-01-05 00:00:00 Refill Deja Álvarez [facility] H[facility] DOCTOR [facility] 1.2.840.114 350.1.13.10 4.2.7.2.686 [id number] 107 [id number] [facility] 2021-12-21 00:00:00 2021-12-21 00:00:00 Case Management Deja Álvarez [facility] HAM DOCTOR [facility] 1.2.840.114 350.1.13.10 4.2.7.2.686 [id number] 107 [id number] [facility] 2021-12-18 14:15:00 2021-12-18 15:30:31 Outpatient R DEJA ÁLVAREZ [facility] [id number] [facility] 2021-12-18 14:15:00 2021-12-18 15:30:31 Office Visit Provider, Drake-Rmchp Deja Jane [facility] HAM DOCTOR [facility] 1.2.840.114 350.1.13.10 4.2.7.2.686 [id number] 107 [id number] [facility] 2021-09-28 11:00:00 2021-09-28 11:00:00 Outpatient R JARED COLLADO [facility] [id number] [facility] 2021-09-24 13:45:00 2021-09-24 13:45:00 Outpatient R REBECCA FUENTESCY [facility] [id number] [facility] 2021-09-18 09:30:00 2021-09-18 09:30:00 Outpatient R TYRESE BACA [facility] [id number] [facility] 2021-09-01 15:30:00 2021-09-01 15:30:00 Outpatient JARED DOUGLAS [facility] [id number] [facility] 2021-08-28 00:00:00 2021-08-28 00:00:00 Patient Secure [facility] 1.2.840.114 350.1.13.10 4.2.7.2.686 [id number] [id number] [facility] 2021-08-24 00:00:00 2021-08-24 00:00:00 Abstract Jared Collado [facility] 1.2.840.114 350.1.13.10 4.2.7.2.686 [id number] 044 [id number] [facility] 2021-08-21 00:00:00 2021-08-21 00:00:00 Telephone Analisa Suarez [facility] HAM DOCTOR [facility] 1.2.840.114 350.1.13.10 4.2.7.2.686 [id number] 107 [id number] [facility] 2021-08-19 16:00:00 2021-08-19 16:00:00 Outpatient JARED DOUGLAS [facility] [id number] [facility] 2021-08-19 00:00:00 2021-08-19 00:00:00 Refill Jared Coll[facility] 1..840.114 350.1.13.10 4.2.7.2.686 [id number] 044 [id number] [facility] 2021-08-19 00:00:00 2021-08-19 00:00:00 Refill Dany Carias [facility] DOCTOR [facility] 1..840.114 350.1.13.10 4.2.7.2.686 [id number] 107 [id number] [facility] 2021-08-19 00:00:00 2021-08-19 00:00:00 Refill Doctor Unassigned, Astor [facility] 1..840.114 350.1.13.10 4.2.7.2.686 [id number] [facility] 2021-08-17 00:00:00 2021-08-17 00:00:00 Patient Secure Msg Dany Carias [facility] H[facility] DOCTOR [facility] 1..840.114 350.1.13.10 4.2.7.2.686 [id number] 107 [id number] [facility] 2021-08-13 14:15:00 2021-08-13 16:02:04 Outpatient R DANY CARIAS [facility] [id number] [facility] 2021-08-13 14:15:00 2021-08-13 16:02:04 Office Visit Dany Carias [facility] HAM DOCTOR [facility] 1.840.114 350.1.13.10 4.2.7.2.686 [id number] 107 [id number] [facility] 2021-08-13 14:15:00 2021-08-13 14:15:00 Outpatient R DANY CARIAS [facility] [id number] [facility] 2021-08-12 00:00:00 2021-08-12 00:00:00 Patient Secure g Dany Carias [facility] HAM DOCTOR [facility] 1.2840.114 350.1.13.10 4.2.7.2.686 [id number] 107 [id number] [facility] 2021-08-07 16:00:00 2021-08-07 16:00:00 Outpatient JARED DOUGLAS [facility] [id number] [facility] 2021-08-04 00:00:00 2021-08-04 00:00:00 Telephone Dayn Carias [facility] H[facility] DOCTOR [facility] 1.840.114 350.1.13.10 4.2.7.2.686 [id number] 107 [id number] [facility] 2021-08-04 00:00:00 2021-08-04 00:00:00 Patient Secure Jared Salmon [facility] 1..114 350.1.13.10 4.2.7.2.686 [id number] 044 [id number] [facility] 2021-08-04 00:00:00 2021-08-04 00:00:00 Patient Secure g Dany Cairas [facility] HAM DOCTOR [facility] 1.20.114 350.1.13.10 4.2.7.2.686 [id number] 107 [id number] [facility] 2021-08-03 00:00:00 2021-08-03 00:00:00 Telephone Niall Cariasmariah [facility] HAM DOCTOR [facility] 1.2840.114 350.1.13.10 4.2.7.2.686 [id number] 107 [id number] [facility] 2021-08-03 00:00:00 2021-08-03 00:00:00 Patient Secure Msg Dany Carias [facility] HAM DOCTOR [facility] 1..840.114 350.1.13.10 4.2.7.2.686 [id number] 107 [id number] [facility] 2021-08-03 00:00:00 2021-08-03 00:00:00 Patient Secure Msg Dany Carias [facility] H[facility] DOCTOR [facility] 1.840.114 350.1.13.10 4.2.7.2.686 [id number] 107 [id number] [facility] 2021-07-31 11:30:00 2021-07-31 11:30:00 Outpatient R JARED COLLADO [facility] [id number] [facility] 2021-07-30 15:45:00 2021-07-30 16:31:25 Outpatient R FELICITAS CARIASHECTOR [facility] [id number] [facility] 2021-07-30 15:45:00 2021-07-30 16:31:25 Office Visit Dany Carias [facility] HAM DOCTOR [facility] 1..840.114 350.1.13.10 4.2.7.2.686 [id number] 107 [id number] [facility] 2021-07-29 13:30:00 2021-07-29 13:30:00 Outpatient R JARED COLLADO [facility] [id number] [facility] 2021-07-29 00:00:00 2021-07-29 00:00:00 Patient Secure Msg Doctor Unassigned, Astor [facility] 1..840.114 350.1.13.10 4.2.7.2.686 [id number] [id number] [facility] 2021-07-29 00:00:00 2021-07-29 00:00:00 Patient Secure Jared Salmon [facility] 1.284.114 350.1.13.10 4.2.7.2.686 [id number] 044 [id number] [facility] 2021-07-28 16:30:00 2021-07-28 17:03:47 Outpatient R BECCA [facility] [id number] [facility] 2021-07-28 16:30:00 2021-07-28 17:03:47 Office Visit Becca [facility] 1.840.114 350.1.13.10 4.2.7.2.686 [id number] [id number] [facility] 2021-07-28 16:45:00 2021-07-28 17:00:00 Visual Merchandiser Visit Pob, Adc Lab Main [facility] 1.84.114 350.1.13.10 4.2.7.2.686 [id number] [facility] 2021-07-28 16:45:00 2021-07-28 16:45:00 Outpatient R BECCA RAMÓN [facility] [id number] [facility] 2021-07-28 00:00:00 2021-07-28 00:00:00 Telephone Shanita Simon [facility] HAM DOCTOR [facility] 1..114 350.1.13.10 4.2.7.2.686 [id number] 107 [id number] [facility] 2021-07-28 00:00:00 2021-07-28 00:00:00 Orders Only Doctor Unassigned, Astor [facility] 1..114 350.1.13.10 4.2.7.2.686 [id number] [facility] 2021-07-25 00:00:00 2021-07-25 00:00:00 Nurse Triage Janae Rubio [facility] 1.2840.114 350.1.13.10 4.2.7.2.686 [id number] [facility] 2021-07-22 14:30:00 2021-07-22 14:30:00 Outpatient R ELDAMariah JARED [facility] [id number] [facility] 2021-07-21 00:00:00 2021-07-21 00:00:00 Telephone Eldamariah Jared [facility] 1.20.114 350.1.13.10 4.2.7.2.686 [id number] [id number] [facility] 2021-07-21 00:00:00 2021-07-21 00:00:00 Patient Secure Msg Eldamariah Jared [facility] 1.20.114 350.1.13.10 4.2.7.2.686 [id number] 044 [id number] [facility] 2021-07-20 16:13:00 2021-07-20 17:36:00 Emergency X Manuel STANFORD [facility] ERT [id number] [facility] 2021-07-20 16:13:00 2021-07-20 17:36:00 Emergency Manuel Stanford [facility] 1.2840.114 350.1.13.10 4.2.7.2.686 [id number] [facility] 2021-07-20 15:45:00 2021-07-20 16:00:00 Visual Merchandiser Visit Lab, Shanon Tariq Brittany [facility] 1.2.114 350.1.13.10 4.2.7.2.686 [id number] [facility] 2021-07-20 15:20:00 2021-07-20 15:44:36 Outpatient R OUMAR COLEMAN [facility] [id number] [facility] 2021-07-20 15:20:00 2021-07-20 15:44:36 Urgent Care OctaviaOumar Amanda [facility] 1.2840.114 350.1.13.10 4.2.7.2.686 [id number] [facility] 2021-07-17 00:00:00 2021-07-17 00:00:00 Patient Secure g July Pitt [facility] 1.114 350.1.13.10 4.2.7.2.686 [id number] 044 [id number] [facility] 2021-07-17 00:00:00 2021-07-17 00:00:00 Patient Secure g Jared Collado [facility] 1.2.114 350.1.13.10 4.2.7.2.686 [id number] [id number] [facility] 2021-07-16 14:15:00 2021-07-16 14:41:18 Visual Merchandiser Visit Lab, Drake SchroederJared lemus [facility] 1.20.114 350.1.13.10 4.2.7.2.686 [id number] 353 [id number] [facility] 2021-07-16 14:15:00 2021-07-16 14:30:00 Visual Merchandiser Visit Lab, Ang Shawn ColladoJared [facility] 1.2.114 350.1.13.10 4.2.7.2.686 [id number] [facility] 2021-07-16 14:15:00 2021-07-16 14:15:00 Outpatient R ELDAJARED Lemus [facility] [id number] [facility] 2021-07-15 15:30:00 2021-07-15 15:45:00 Visual Merchandiser Visit Lab, Ang - Db Tobias [facility] 1.2.840.114 350.1.13.10 4.2.7.2.686 [id number] [facility] 2021-07-15 14:00:00 2021-07-15 15:22:50 Outpatient R JARED COLLADO [facility] [id number] [facility] 2021-07-15 14:00:00 2021-07-15 15:22:50 [facility] 1.2.840.114 350.1.13.10 4.2.7.2.686 [id number] [facility] 2021-07-15 14:00:00 2021-07-15 15:22:50 Outpatient R JARED COLLADO [facility] [id number] [facility] 2021-07-15 14:00:00 2021-07-15 15:22:50 Outpatient R JARED COLLADO [facility] [id number] [facility] 2021-07-13 08:30:00 2021-07-13 08:30:00 Outpatient R DANY CARIAS [facility] [id number] [facility] 2021-07-13 08:30:00 2021-07-13 08:30:00 Outpatient R DANY CARIAS [facility] [id number] [facility] 2021-07-11 14:20:00 2021-07-11 15:10:05 Outpatient R MARIA ISABEL MARSHALL [facility] [id number] [facility] 2021-07-11 14:20:00 2021-07-11 15:10:05 Urgent Care Maria Isabel Marshall [facility] 1.114 350.1.13.10 4.2.7.2.686 [id number] [facility] 2021-07-06 00:00:00 2021-07-06 00:00:00 Patient Secure Msg Doctor Unassigned, Astor [facility] 1.114 350.1.13.10 4.2.7.2.686 [id number] [facility] 2021-06-30 14:30:00 2021-06-30 15:41:19 Outpatient R ANALISA SUAREZ [facility] [id number] [facility] 2021-06-30 14:30:00 2021-06-30 15:41:19 Office Visit Analisa Suarez [facility] HAM DOCTOR [facility] 1..114 350.1.13.10 4.2.7.2.686 [id number] 107 [id number] [facility] 2021-06-30 00:00:00 2021-06-30 00:00:00 Letter (Out) Analisa Suarez [facility] HAM DOCTOR [facility] 1..114 350.1.13.10 4.2.7.2.686 [id number] 107 [id number] [facility] 2021-06-26 15:45:00 2021-06-26 16:00:00 Visual Merchandiser Visit Lab, Tyrese Mckinnon [facility] 1..114 350.1.13.10 4.2.7.2.686 [id number] [facility] 2021-06-26 14:30:00 2021-06-26 15:40:40 Outpatient R TYRESE BACA [facility] [id number] [facility] 2021-06-26 14:30:00 2021-06-26 15:40:40 [facility] 1..840.114 350.1.13.10 4.2.7.2.686 [id number] [facility] 2021-06-26 00:00:00 2021-06-26 00:00:00 Telephone Liliana Cariasmarybeth Banks [facility] HAM DOCTOR [facility] MATERNAL & [facility] 1..840.114 350.1.13.10 4.2.7.2.686 [id number] 107 [id number] [facility] 2021-06-25 14:30:00 2021-06-25 14:30:00 Outpatient R CARIASDANY [facility] [id number] [facility] 2021-06-25 14:30:00 2021-06-25 14:30:00 Outpatient R CARIAS, DANY [facility] [id number] [facility] 2021-06-22 15:30:00 2021-06-22 15:30:00 Outpatient R JARED COLLADO [facility] [id number] [facility] 2021-06-22 15:30:00 2021-06-22 15:30:00 Outpatient R JARED COLLADO [facility] [id number] [facility] 2021-06-18 00:00:00 2021-06-18 00:00:00 Patient Secure Msg Jared Collado [facility] 1..840.114 350.1.13.10 4.2.7.2.686 [id number] [id number] [facility] 2021-06-16 15:30:00 2021-06-16 15:45:00 Visual Merchandiser Visit Lab, Drake Escobar Db Phuong [facility] 1..840.114 350.1.13.10 4.2.7.2.686 [id number] [facility] 2021-06-16 14:30:00 2021-06-16 15:22:44 [id number] 2021-06-16 14:30:00 2021-06-16 15:22:44 Office Visit Phuong [facility] 1..840.114 350.1.13.10 4.2.7.2.686 [id number] [facility] 2021-06-12 13:45:00 2021-06-12 14:00:00 Office Visit Analisa Suarez [facility] HAM DOCTOR [facility] 1..840.114 350.1.13.10 4.2.7.2.686 [id number] 107 [id number] [facility] 2021-06-12 13:45:00 2021-06-12 13:45:00 Outpatient R ANALISA SUAREZ [facility] [id number] [facility] 2021-06-12 13:45:00 2021-06-12 13:45:00 Outpatient R ANALISA SUAREZ [facility] [id number] [facility] 2021-06-12 00:00:00 2021-06-12 00:00:00 Patient Secure Msg Analisa Suarez [facility] HAM DOCTOR [facility] 1..840.114 350.1.13.10 4.2.7.2.686 [id number] 107 [id number] [facility] 2021-06-11 00:00:00 2021-06-11 00:00:00 Telephone Analisa Suarez [facility] HAM DOCTOR [facility] MATERNAL & CHILD [facility] 1..840.114 350.1.13.10 4.2.7.2.686 [id number] 107 [id number] [facility] 2021-06-10 13:30:00 2021-06-10 14:41:56 Office Visit CarmencitamandeepAnalisa [facility] HAM DOCTOR [facility] 1..840.114 350.1.13.10 4.2.7.2.686 [id number] 107 [id number] [facility] 2021-06-10 13:30:00 2021-06-10 14:41:56 Outpatient R ANALISA SUAREZ [facility] [id number] [facility] 2021-06-10 13:30:00 2021-06-10 13:30:00 Outpatient R ANALISA SUAREZ [facility] [id number] [facility] 2021-06-08 15:30:00 2021-06-08 15:30:00 Outpatient R TYRESE BACA [facility] [id number] [facility] 2021-06-08 15:30:00 2021-06-08 15:30:00 Outpatient R TYRESE BACA [facility] [id number] [facility] 2021-06-02 14:30:00 2021-06-02 15:12:53 Outpatient R TYRESE BACA [facility] [id number] [facility] 2021-06-02 14:30:00 2021-06-02 15:12:53 Office Visit Tyrese B[facility] 1..840.114 350.1.13.10 4.2.7.2.686 [id number] [facility] 2021-06-02 14:30:00 2021-06-02 15:12:53 Outpatient R TYRESE BACA [facility] [id number] [facility] 2021-06-02 14:30:00 2021-06-02 14:30:00 Outpatient R TYRESE BACA [facility] [id number] [facility] 2021-05-29 14:00:00 2021-05-29 14:30:00 Office Visit EldaJared lemus [facility]TONI[facility]h [facility] 1.2.840.114 350.1.13.10 4.2.7.2.686 [id number] [facility] 2021-05-29 14:00:00 2021-05-29 14:00:00 Outpatient R TOBIASJARED [facility] [id number] [facility] 2021-05-29 09:30:00 2021-05-29 09:30:00 Outpatient R ABHIBERTHA TRIANATHIA [facility] [id number] [facility] 2021-05-28 00:00:00 2021-05-28 00:00:00 Telephone EldaJared lemus [facility]h [facility] 1..840.114 350.1.13.10 4.2.7.2.686 [id number] [id number] [facility] 2021-05-27 09:15:00 2021-05-27 09:30:00 Visual Merchandiser Visit Lab, Ang - Db [facility] 1..840.114 350.1.13.10 4.2.7.2.686 [id number] [facility] 2021-05-27 09:15:00 2021-05-27 09:15:00 Outpatient R ELDAARLETH LemusIE [facility] [id number] [facility] 2021-05-27 08:30:00 2021-05-27 09:00:00 Office Visit TobiasJared [facility] 1.2.840.114 350.1.13.10 4.2.7.2.686 [id number] [facility] 2021-05-27 08:30:00 2021-05-27 08:30:00 Outpatient R JARED COLLADO [facility] [id number] [facility] 2021-05-27 00:00:00 2021-05-27 00:00:00 Letter (Out) Tobias [facility] 1.2.840.114 350.1.13.10 4.2.7.2.686 [id number] [facility] 2021-05-27 00:00:00 2021-05-27 00:00:00 Telephone [facility] 1..840.114 350.1.13.10 4.2.7.2.686 [id number] [facility] 2021-05-27 00:00:00 2021-05-27 00:00:00 Telephone [facility] 1.2.840.114 350.1.13.10 4.2.7.2.686 [id number] [facility] 2021-05-23 01:00:00 2021-05-23 06:13:00 Emergency X GABRIELLE MARTÍNEZ [facility] ERT [id number] [facility] 2021-05-23 01:00:00 2021-05-23 06:13:00 Emergency Gabrielle Martínez R [facility] 1.2.840.114 350.1.13.10 4.2.7.2.686 [id number] [facility] 2021-05-23 01:00:00 2021-05-23 06:13:00 Emergency X GABRIELLE MARTÍNEZ [facility] ERT [id number] [facility] 2021-05-22 16:00:00 2021-05-22 16:00:00 Outpatient R PAMELA PRESLEY [facility] [id number] [facility] 2021-05-22 14:20:00 2021-05-22 15:02:37 Outpatient R PAMELA PRESLEY [facility] [id number] [facility] 2021-05-22 14:20:00 2021-05-22 15:02:37 Urgent Care Pamela Presley [facility] EM[facility]IAN[facility] 1..840.114 350.1.13.10 4.2.7.2.686 [id number] [facility] 2021-05-15 00:00:00 2021-05-15 00:00:00 Orders Only Doctor Unassigned, [place] [facility] 1..840.114 350.1.13.10 4.2.7.2.686 [id number] [facility] 2021-05-04 15:30:00 2021-05-04 15:30:00 Outpatient R GERTRUDE MILLAN [facility] [id number] [facility] 2021-05-04 15:30:00 2021-05-04 15:30:00 Outpatient R GERTRUDE MILLAN [facility] [id number] [facility] 2021-05-01 13:00:00 2021-05-01 13:00:00 Outpatient R MINOO FLORES [facility] [id number] [facility] 2021-05-01 13:00:00 2021-05-01 13:00:00 Outpatient R MINOO FLORES [facility] [id number] [facility] 2021-04-30 16:30:00 2021-04-30 17:15:50 Outpatient R TYRESE BACA [facility] [id number] [facility] 2021-04-30 16:30:00 2021-04-30 17:15:50 Office Visit Tyrese Baca [facility] 1.114 350.1.13.10 4.2.7.2.686 [id number] [facility] 2021-04-29 18:59:00 2021-04-29 20:20:00 Emergency X JAG MAGANA [facility] ERT [id number] [facility] 2021-04-29 18:59:00 2021-04-29 20:20:00 Emergency Jag Magana [facility] [facility] 1.0.114 350.1.13.10 4.2.7.2.686 [id number] [facility] 2021-04-29 18:59:00 2021-04-29 20:20:00 Emergency X JAG MAGANA [facility] ERT [id number] [facility] 2021-04-03 13:30:00 2021-04-03 13:30:00 Outpatient R MINOO FLORES [facility] [id number] [facility] 2021-03-27 02:58:00 2021-03-27 04:43:00 Emergency X JOB KASPER [facility] ERT [id number] [facility] 2021-03-27 02:58:00 2021-03-27 04:43:00 Emergency Yaritzajorge Krystleabhilash Nunez [facility] 1..114 350.1.13.10 4.2.7.2.686 [id number] [facility] 2021-03-27 00:00:00 2021-03-27 00:00:00 Orders Only Doctor Unassigned, Astor [facility] 1.0.114 350.1.13.10 4.2.7.2.686 [id number] [facility] 2020-11-25 13:14:00 2020-11-27 12:30:00 Inpatient X JIMENA MAYO [facility] KYLE [id number] [facility] 2020-11-25 20:45:00 2020-11-26 00:47:00 Anesthesia Event [facility] 1.2.840.114 350.1.13.10 4.2.7.2.686 [id number] [facility] 2020-11-24 00:00:00 2020-11-24 00:00:00 Dany Beth [facility] HAM DOCTOR [facility] MATERNAL & CHILD [facility] 1.2.840.114 350.1.13.10 4.2.7.2.686 [id number] [facility] 2020-11-20 10:15:00 2020-11-20 10:15:00 Outpatient NORA MELENDEZ [facility] [id number] [facility] 2020-11-18 00:00:00 2020-11-18 00:00:00 Patient Secure Msg Doctor Unassigned, Astor [facility] HAM DOCTOR [facility] CHILD [facility] 1.2.840.114 350.1.13.10 4.2.7.2.686 [id number] 107 [id number] [facility] 2020-11-17 00:00:00 2020-11-17 00:00:00 Telephone Nora Weaver [facility] HAM DOCTOR [facility] 1.2.840.114 350.1.13.10 4.2.7.2.686 [id number] [facility] 2020-11-10 10:30:00 2020-11-10 10:30:00 Outpatient NORA MELENDEZ [facility] [id number] [facility] 2020-10-30 12:45:00 2020-10-30 12:45:00 Outpatient NROA MELENDEZ [facility] [id number] [facility] 2020-10-16 14:23:36 2020-10-16 15:09:33 Routine Visit Nora Weaver [facility] HAM DOCTOR [facility] MATERNAL & CHILD [facility] 1.840.114 350.1.13.10 4.2.7.2.686 [id number] 107 [id number] [facility] 2020-10-16 13:00:00 2020-10-16 13:00:00 Outpatient NORA MELENDEZ [facility] [id number] [facility] 2020-10-16 00:00:00 2020-10-16 00:00:00 Orders Only Doctor Unassigned, Astor [facility] 1.840.114 350.1.13.10 4.2.7.2.686 [id number] [facility] 2020-10-15 09:45:00 2020-10-15 09:45:00 Outpatient DANY THOMPSON [facility] [id number] [facility] 2020-10-07 08:00:00 2020-10-07 08:00:00 Outpatient NORA MELENDEZ [facility] [id number] [facility] 2020-09-30 18:00:00 2020-09-30 18:00:00 Outpatient DANY THOMPSON [facility] [id number] [facility] 2020-09-30 11:45:00 2020-09-30 11:45:00 Outpatient DANY THOMPSON [facility] [id number] [facility] 2020-09-29 16:45:00 2020-09-29 16:45:00 Outpatient DANY THOMPSON [facility] [id number] [facility] 2020-09-18 00:00:00 2020-09-18 00:00:00 Patient Secure Dany Carias [facility] HAM DOCTOR [facility] MATERNAL & CHILD [facility] 1..840.114 350.1.13.10 4.2.7.2.686 [id number] 107 [id number] [facility] 2020-09-15 13:58:57 2020-09-15 15:37:45 Routine Visit CariasDany [facility] HAM DOCTOR [facility] 1.20.114 350.1.13.10 4.2.7.2.686 [id number] [facility] 2020-09-15 13:15:00 2020-09-15 13:15:00 Outpatient R JVDANY [facility] [id number] [facility] 2020-09-12 00:00:00 2020-09-12 00:00:00 Nurse Triage Leidy Duran [facility] 1.20.114 350.1.13.10 4.2.7.2.686 [id number] [facility] 2020-08-29 00:00:00 2020-08-29 00:00:00 Telephone Nurse, [facility] 1.2840.114 350.1.13.10 4.2.7.2.686 [id number] [facility] 2020-08-28 15:21:38 2020-08-28 23:59:00 Hospital Encounter [facility] 1.2840.114 350.1.13.10 4.2.7.2.686 [id number] [facility] 2020-08-28 15:21:38 2020-08-28 23:59:00 Hospital Encounter Vipul [facility] 1.2840.114 350.1.13.10 4.2.7.2.686 [id number] 2020-08-28 14:13:24 2020-08-28 15:23:42 Urgent Care [place] [facility] Office Building One 1.20.114 350.1.13.10 4.2.7.2.686 [id number] [facility] 2020-08-28 14:13:24 2020-08-28 15:23:42 Urgent Care [place] [facility] Office Building One 1.840.114 350.1.13.10 4.2.7.2.686 [id number] 2020-08-28 14:20:00 2020-08-28 14:20:00 Outpatient R MERCYTOBY [facility] [id number] [facility] 2020-08-27 10:01:23 2020-08-27 11:16:37 [facility]NAL & [facility] 1.0.114 350.1.13.10 4.2.7.2.686 [id number] 107 [id number] [facility] 2020-08-27 10:01:23 2020-08-27 11:16:37 Routine Visit [facility] HAM DOCTOR [facility] MATERNAL & CHILD [facility] 1.0.114 350.1.13.10 4.2.7.2.686 [id number] 2020-08-27 09:00:00 2020-08-27 09:00:00 Outpatient R DANY CARIAS [facility] [id number] [facility] 2020-08-27 00:00:00 2020-08-27 00:00:00 Orders Only Doctor Unassigned, Astor [facility] 1.0.114 350.1.13.10 4.2.7.2.686 [id number] [facility] 2020-08-27 00:00:00 2020-08-27 00:00:00 Orders Only Doctor Unassigned, Astor [facility] 1.840.114 350.1.13.10 4.2.7.2.686 [id number] 2020-08-19 14:50:51 2020-08-19 15:35:51 Visual Merchandiser Visit 1, [facility] Us Room María Diaz [facility] 1.2.840.114 350.1.13.10 4.2.7.2.686 [id number] [facility] 2020-08-19 14:50:51 2020-08-19 15:35:51 Visual Merchandiser Visit 1, [facility] Usg Room [facility] 1.20.114 350.1.13.10 4.2.7.2.686 [id number] 2020-08-19 14:15:00 2020-08-19 14:15:00 Outpatient P [facility] [id number] [facility] 2020-08-11 08:45:00 2020-08-11 08:45:00 Outpatient P [facility] [id number] [facility] 2020-08-06 00:00:00 2020-08-06 00:00:00 Nurse Triage [facility] 1.2.840.114 350.1.13.10 4.2.7.2.686 [id number] 2020-08-06 00:00:00 2020-08-06 00:00:00 Nurse Triage [facility] 1.2.840.114 350.1.13.10 4.2.7.2.686 [id number] [facility] 2020-08-06 00:00:00 2020-08-06 00:00:00 Telephone Dany Carias [facility] HAM DOCTOR [facility] 1.2.840.114 350.1.13.10 4.2.7.2.686 [id number] 107 [id number] [facility] 2020-07-30 10:22:14 2020-07-30 10:37:14 Routine Visit Dany Carias [facility] HAM DOCTOR [facility] MATERNAL & CHILD [facility] 1.2.840.114 350.1.13.10 4.2.7.2.686 [id number] 107 [id number] [facility] 2020-07-30 10:15:00 2020-07-30 10:15:00 Outpatient LILIANA THOMPSONMARYBETH [facility] [id number] [facility] 2020-07-21 13:45:00 2020-07-21 13:45:00 Outpatient R LILIANA CARIASHECTOR [facility] [id number] [facility] 2020-07-17 09:00:00 2020-07-17 09:00:00 Outpatient R LILIANA CARIASMARYBETH [facility] [id number] [facility] 2020-07-14 09:45:41 2020-07-14 11:00:41 Visual Merchandiser Visit Ultrasound, Jordan Valencia [facility] HAM DOCTOR [facility] MATERNAL & CHILD [facility] 1.2840.114 350.1.13.10 4.2.7.2.686 [id number] [facility] 2020-07-14 10:00:00 2020-07-14 10:00:00 Outpatient P [facility] [id number] [facility] 2020-07-14 00:00:00 2020-07-14 00:00:00 Case Management Nora Weaver [facility] HAM DOCTOR [facility] MATERNAL & CHILD [facility] 1.2840.114 350.1.13.10 4.2.7.2.686 [id number] 107 [id number] [facility] 2020-07-01 13:52:00 2020-07-01 14:58:28 Routine Visit Dany Carias [facility] HAM DOCTOR [facility] & [facility] 1.2840.114 350.1.13.10 4.2.7.2.686 [id number] 107 [id number] [facility] 2020-07-01 13:45:00 2020-07-01 13:45:00 Outpatient DANY THOMPSON [facility] [id number] [facility] 2020-07-01 00:00:00 2020-07-01 00:00:00 Telephone Dany Carias [facility] HAM DOCTOR [facility] 1.2.840.114 350.1.13.10 4.2.7.2.686 [id number] 107 [id number] [facility] 2020-06-17 08:48:55 2020-06-17 09:25:15 Routine Visit Dany Carias [facility] HAM DOCTOR [facility] & [facility] 1.2840.114 350.1.13.10 4.2.7.2.686 [id number] 107 [id number] [facility] 2020-06-17 08:45:00 2020-06-17 08:45:00 [id number] 2020-06-10 15:45:00 2020-06-10 15:45:00 Outpatient DANY THOMPSON [facility] [id number] [facility] 2020-06-03 20:19:00 2020-06-03 22:12:00 Emergency Julio Da Silva [facility] 1.284.114 350.1.13.10 4.2.7.2.686 [id number] [facility] 2020-05-13 09:59:20 2020-05-13 10:14:20 Routine [facility] H[facility] 1.2840.114 350.1.13.10 4.2.7.2.686 [id number] 107 [id number] [facility] 2020-05-13 10:00:00 2020-05-13 10:00:00 Outpatient R DANY CARIAS [facility] [id number] [facility] 2020-05-06 11:00:00 2020-05-06 11:00:00 Outpatient R DANY CARIAS [facility] [id number] [facility] 2020-04-29 10:45:00 2020-04-29 10:45:00 Outpatient R DANY CARIAS [facility] [id number] [facility] 2020-04-29 00:00:00 2020-04-29 00:00:00 Telephone Dany Carias [facility] HAM DOCTOR [facility] & [facility]ILD [facility] 1.2840.114 350.1.13.10 4.2.7.2.686 [id number] 107 [id number] [facility] 2020-04-22 00:00:00 2020-04-22 00:00:00 Nurse Triage Lynn Garcia [facility] 1.2840.114 350.1.13.10 4.2.7.2.686 [id number] [facility] 2020-04-09 00:00:00 2020-04-09 00:00:00 Case Management Dany Carias [facility] HAM DOCTOR [facility] CHILD [facility] 1.2840.114 350.1.13.10 4.2.7.2.686 [id number] 107 [id number] [facility] 2020-04-08 11:32:55 2020-04-08 12:14:18 Visual Merchandiser Visit Ultrasound, Tracey Trammell [facility] HAM DOCTOR [facility] 1.2840.114 350.1.13.10 4.2.7.2.686 [id number] [facility] 2020-04-08 11:30:00 2020-04-08 11:30:00 Outpatient P [facility] [id number] [facility] 2020-04-08 00:00:00 2020-04-08 00:00:00 Abstract CariasDany [facility] HAM DOCTOR [facility] 1.2.840.114 350.1.13.10 4.2.7.2.686 [id number] 107 [id number] [facility] 2020-04-02 23:15:00 2020-04-03 01:12:00 Emergency Vilma Yoshi [facility] ([facility]) 1.2.840.114 350.1.13.10 4.2.7.2.686 [id number] [facility] 2020-04-02 00:00:00 2020-04-02 00:00:00 Telephone CariasDany [facility] HAM DOCTOR [facility] 1.2.840.114 350.1.13.10 4.2.7.2.686 [id number] 107 [id number] [facility] 2020-04-02 00:00:00 2020-04-02 00:00:00 Telephone CariasDany [facility] HAM DOCTOR [facility] 1.2.840.114 350.1.13.10 4.2.7.2.686 [id number] 107 [id number] [facility] 2020-04-01 09:25:04 2020-04-01 11:05:29 Initial Visit Dany Carias [facility] HAM DOCTOR [facility] 1.2.840.114 350.1.13.10 4.2.7.2.686 [id number] 107 [id number] [facility] 2020-04-01 08:30:00 2020-04-01 08:30:00 Outpatient R [facility] [id number] [facility] 2020-04-01 00:00:00 2020-04-01 00:00:00 Orders Only Doctor Unassigned, Astor [facility] 1.2.840.114 350.1.13.10 4.2.7.2.686 [id number] [facility] 2019-12-18 09:30:00 2019-12-18 09:30:00 Outpatient R [facility] [id number] [facility] 2019-10-01 00:00:00 2019-10-01 00:00:00 Patient Secure Msg Doctor Unassigned, Astor [facility] 1.2.840.114 350.1.13.10 4.2.7.2.686 [id number] [facility] 2019-09-26 00:00:00 2019-09-26 00:00:00 Patient Secure Msg Minoo Flores [facility] 1.2.840.114 350.1.13.10 4.2.7.2.686 [id number] [facility] 2019-09-21 11:10:44 2019-09-21 23:59:00 Hospital Encounter Minoo [facility] 1.2.840.114 350.1.13.10 4.2.7.2.686 [id number] [facility] 2019-09-21 11:00:00 2019-09-21 11:09:00 Hospital Encounter Minoo [facility] 1.2.840.114 350.1.13.10 4.2.7.2.686 [id number] [facility] 2019-09-21 09:56:26 2019-09-21 10:59:00 Hospital Encounter Minoo Flores [facility] 1.2.840.114 350.1.13.10 4.2.7.2.686 [id number] [facility] 2019-09-21 00:00:00 2019-09-21 00:00:00 Outpatient R MINOO FLORES [facility] [id number] [facility] 2019-09-21 00:00:00 2019-09-21 00:00:00 Patient Secure Minoo Clarke [facility] 1.2.840.114 350.1.13.10 4.2.7.2.686 [id number] [facility] 2019-09-21 00:00:00 2019-09-21 00:00:00 Case Management Minoo Flores [facility] 1.2.840.114 350.1.13.10 4.2.7.2.686 [id number] [facility] 2019-09-21 00:00:00 2019-09-21 00:00:00 Patient Secure Minoo Clarke [facility] 1.2.840.114 350.1.13.10 4.2.7.2.686 [id number] [id number] [facility] 2019-09-20 10:01:43 2019-09-20 10:16:43 Laboratory Only Only, Adc Test [facility] 1.2.840.114 350.1.13.10 4.2.7.2.686 [id number] [facility] 2019-09-20 09:55:41 2019-09-20 10:10:41 Visual Merchandiser Visit Pob, Adc Lab Main Minoo Flores [facility] 1.2.840.114 350.1.13.10 4.2.7.2.686 [id number] [facility] 2019-09-20 00:00:00 2019-09-20 00:00:00 Outpatient R MINOO FLORES [facility] [id number] [facility] 2019-09-20 00:00:00 2019-09-20 00:00:00 Orders Only Doctor Unassigned, Astor [facility] 1.840.114 350.1.13.10 4.2.7.2.686 [id number] [facility] 2019-09-19 13:45:12 2019-09-19 15:57:17 Telemedici ne Visit AvaMinoo [facility] Building 1.840.114 350.1.13.10 4.2.7.2.686 [id number] [facility] 2019-09-19 09:45:00 2019-09-19 09:45:00 Outpatient R SANDRAMINOO [facility] [id number] [facility] 2019-09-19 00:00:00 2019-09-19 00:00:00 Telephone Minoo Flores [facility] Office Building One 1.840.114 350.1.13.10 4.2.7.2.686 [id number] [id number] [facility] 2019-09-14 12:46:19 2019-09-14 13:54:37 [facility] 1..840.114 350.1.13.10 4.2.7.2.686 [id number] [facility] 2019-09-14 13:00:00 2019-09-14 13:00:00 Outpatient R TYRESE BACA [facility] [id number] [facility] 2019-08-28 11:00:00 2019-08-28 11:00:00 Outpatient MELODY RED [facility] [id number] [facility] 2019-08-22 08:59:00 2019-08-24 07:24:30 Inpatient HCACL MALACH[id number] 2019-08-23 15:07:25 2019-08-23 16:34:23 Urgent Care Provider, [facility] Tyrese Baca [facility] Skip [facility] Office Building One 1.2.114 350.1.13.10 4.2.7.2.686 [id number] [facility] 2019-08-23 15:40:00 2019-08-23 15:40:00 Outpatient R [facility] [id number] [facility] 2019-08-22 14:16:15 2019-08-22 16:10:00 Emergency Corazon Kvng R [facility] ([facility]) 1.20.114 350.1.13.10 4.2.7.2.686 [id number] [facility] 2019-08-22 13:26:07 2019-08-22 13:41:07 Nurse Visit Nurse, [facility] Unknown, Attending [facility] 1..114 350.1.13.10 4.2.7.2.686 [id number] [facility] 2019-08-22 13:30:00 2019-08-22 13:30:00 Outpatient R UNKNOWN, ATTENDING [facility] [id number] [facility] 2019-08-22 00:00:00 2019-08-22 00:00:00 Telephone Miguel Simba [facility] 1.2.114 350.1.13.10 4.2.7.2.686 [id number] [facility] 2019-08-21 00:00:00 2019-08-21 00:00:00 Patient Secure Msg Doctor Unassigned, Astor [facility] 1.20.114 350.1.13.10 4.2.7.2.686 [id number] [facility] 2019-08-19 21:26:07 2019-08-19 21:27:00 Emergency [facility] 1.84.114 350.1.13.10 4.2.7.2.686 [id number] [facility] 2019-08-19 00:00:00 2019-08-19 00:00:00 Orders Only Doctor Unassigned, Astor [facility] 1.84.114 350.1.13.10 4.2.7.2.686 [id number] [facility] Results Test Description Test Time Test Comments Results Result Co mments Source [facility] [id number] 20:37:00* Test Item Value Reference Range Interpretation Comme nts POCT PREG (test code = 1605) Negative On board controls acceptable with C Line (test code = 3574) Yes POCT PREG LOT # (test code = 3575) POCT PREG TEST DATE ( test code = 3576) [facility] [id number] 20:37:00* Test Item Value Reference Range Interpretation Comme nts POCT PREG (test code = 1605) Negative On board controls acceptable with C Line (test code = 3574) Yes POCT PREG LOT # (test code = 3575) POCT PREG TEST DATE ( test code = 3576) [facility] URINALYSIS W/O SPECIFIC [id number] 20:36:00* Test Item Value Reference Range Interpretation [...] = 3257) trace Negative - Negati ve [facility] URINALYSIS W/O SPECIFIC [id number] 20:36:00* Test Item Value Reference Range Interpretation [...] = 3257) trace Negative - Negati ve [facility]/O SPECIFIC [id number] 20:36:00* Test Item Value Reference Range Interpretation [...] = 3257) trace Negative - Negati ve [facility] (COVID-19), RT-PCR/[id number] 15:19:39* Test Item Value Reference Range Interpretation Comments SARS-CoV-2 INTERPRETATION (test code = 10709) NEGATIVE SEE NOTE SARS-CoV-2 R NA NOT [...] prevalence is high. SOURCE (test code = 73760) NASOPHARYNGEAL Note: Methodolog y is Dannie Stefani Real-Time RT-PCR. The expected result or reference range is NEGATIVE (Not Detected). For more information regarding COVID-19 testing to include clinicalinformation, methodology detail, intended use, FDA authorization andrecommended fact sheets for patients or healthcare providers, see [employer] Announcement: SARS-CoV-2 (COVID-19) by NAAT at URL below (note,fact sheets are provided by method given in report:[email or web address]/ Alternatively, see downloadable PDF fact sheet at:https://www.[email or web address]/[email or web address]-CP-PCR UNLESS OTHERWISE INDICATED, ALL TESTING PERFORMED [facility]ENTER[facility]AB[facility] PATHOLOGY Id[place], [facility]. [address] [place] [address] SIZE STAMPER: OCTAVIANO GUZMAN M.D. CLIA NUMBER [id number] [place]. [id number] COMPREHENSIVE METABOLIC [id number] 10:12:00* Test Item Value Reference Range Interpretation [...] code = ALKP) 65 IUnit/L 20-125 N [id number] 10:12:00* Test Item Value Reference Range Interpretation Comme nts TROPONIN-I (test code = TROPI) < 0.015 ng/mL 0.000-0.045 N Negative: <= 0.0 45 Positive: >= 0.046 Correlation with serial results, other cardiac markers andclinical findings is necessary to determine the clinicalsignificance of this result. Results using different methodologies should not be comparedto one another as quantitative results may vary by method. COMPREHENSIVE METABOLIC [id number] 10:11:00* Test Item Value Reference Range Interpretation [...] ( test code = ALKP) IUnit/L 20-125 [id number] 10:11:00* Test Item Value Reference Range Interpretation Comme nts TROPONIN-I (test code = TROPI) < 0.015 ng/mL 0.000-0.045 N Negative: <= 0.0 45 Positive: >= 0.046 Correlation with serial results, other cardiac markers andclinical findings is necessary to determine the clinicalsignificance of this result. Results using different methodologies should not be comparedto one another as quantitative results may vary by method. PROTHROMBIN [id number] 09:59:00* Test Item Value Reference Range Interpretation [...] Acute Myocardial Infarction (to prevent recurrent infarct). [id number] 09:59:00* Test Item Value Reference Range Interpretation Comme [facility] D-DIMER (test code = DDIMER) 224 ng/mlFEU <=500 N THROMBOSIS AND/O R PULMONARY EMBOLISM AND THE CLINICAL CUT- OFF VALUE FOR EXCLUSION (500 ng/mL FEU) OF THESE CONDITIONSIS VALIDATED BY THE ELEMENTARY READING SPECIALIST OF THE METHOD. A NEGATIVE D-DIMER RESULT WHEN COMBINED WITH A CLINICALASSESSMENT OF LOW PRETEST PROBABILITY HAS BEEN SHOWN TO HAVEA HIGH NEGATIVE PREDICTIVE VALUE OF DVT OR PE. D-DIMER VALUES >500 ng/mL FEU ARE NOT DIAGNOSTIC FOR DVT, PEor DIC WITHOUT OTHER CONFIRMATORY TESTS AND APPROPRIATECLINICAL EUALUATIONS. CBC W/AUTO [id number] 09:56:00* Test Item Value Reference Range Interpretation [...] = MDIFF) NO - XR CHEST 1 [id number] 09:56:00FAX: Dallas Cain MD [phone] [place]: St: PRE Name: RAGHAVENDRA QUINN [facility] [place] : 1985 Age/S: 34/F [address] [place] [address] Unit #: [id number] Loc: [place] [address] Phys: Dallas Cain MD Acct: [id number] Dis Date: Status: PRE ER PHONE #: [phone] Exam Date: 08/22/2019 1003 FAX #: [phone] Reason: Chest Pain EXAMS: CPT CODE: [id number] XR CHEST 1 V 32508 PROCEDURE: CHEST SINGLEVIEW INDICATION: Chest Pain COMPARISON: There are no previous relevant studies available for correlation. FINDINGS: The lungs are clear. No pleural abnormality. The cardiomediastinal silhouette is normal for projection. The bony thorax is intact. IMPRESSION: Normal radiograph. SL: [id number] El ectronically Signed by Jesse Sousa on 08/22/2019 at 0956 Reported and signed by:Samson Sousa M.D. CC: Dallas Cain MD Technologist: RT Maddi(R) Trnscrd Date/Time/By: 08/22/2019 (0956) : By: Krissy Orig Print D/T: S: 08/22/2019 (1070) PAGE 1 Signed Report Notes Date/Time Note Provider Source 2022-09-01 09:11:30 [id number]+LgiDBpfg2d 8fOOchXUP7GhwnrhTeLzJ/[id number]: 11:30 09/01/22Community Wellness and Outreach team contacted patient to assist in completing Health Maintenance topics that are overdue. Raghavendra Quinn [id number] Number: 1st attemptHealth Maintenance topics addressed: Health Maintenance Due Topic Date Due SARS-CoV-2 (COVID-19) Vaccine (1) Never done Depression Screening 09/18/2020 Call outcome: Attempted to get in contact with patient regarding missed annual visit appointment. No answer. LVM for patient to return phone call. [id number] encounter OasaER3493-82-20I61:16:58Telephone encounter [id number]|[id number] for patient [id number] Bochas MA[address] Fw[id number] PELFKTJKIMAMJIPCHQP2853-88-70G79:16:581 .2.840.298497.1.72.3.15|[id number]. [id number] Deja Strong MA [facility] 2019-08-22 09:39:00 [id number]/[id number] mdDCpyY8H6tFnH8N7Xpd7JSPosWBIO+o1NnblM7 wuiFJ7357-57-41X50:39:00 [facility] PROVID[facility] REPORTREPORT#:[id number] REPORT STATUS: SignedDATE:08/22/19 TIME: 938 PATIENT: RAGHAVENDRA QUINN UNIT #: [id number]#: [id number] ROOM/BED:AGE: 34 SEX: F PCP PHYS:SERVICE DT: [...] Vomiting. Free Text HPI NotesFree Text HPI Tvyan23-hhbl-yvp female presents emergency department for evaluation of [...] (Auto) (14.0 - 32.0 %) 37.2 H [place] % (Auto) (4.8 - 9.0 %) 7.7 Eos % (Auto) (0.3 - 3.7 %) 0.8 Baso % (Auto) (0.0 - 2.0 %) 0.5 Neut # (Auto) (2.0 - 7.6 x10 3/uL) 7.13 Lymph # (Auto) (1.0 - 3.8 x10 3/uL) 4.96 H [place] # (Auto) (0.1 - 0.8 x10 3/uL) [...] Impressions:RADIOLOGY - XR CHEST 1 V 08/21 1003 Report Impression - Status: SIGNED Entered: 08/22/2019 1003 IMPRESSION: Normal radiograph. SL: [id number] By: Krissy Sousa M.D. Point of Care [...] B/P 121/77 08/21 0919 B/P Mean 91 07/15 0919 O2 Delivery Room air 08/21 918 Temp 99.1 08/21 918 Pulse 115 08/21 918 Resp 18 08/21 918 Last Documented: Result Date Time Pulse Ox 100 08/21 918 B/P 121/77 08/21 918 B/P Mean 91 08/21 918 O2 Delivery Room air 08/21 918 Temp 99.1 08/21 918 Pulse 115 08/21 918 Resp 18 08/21 918 All vital signs available at the time [...] Visit ScriptsNo Known Home Medications at 1030RPT #:[id number] OF REPORTEDEmergency department [id number]:39:00G.[id number] -[id number] for patient rvrwPRIAXTELWVXYXG9098-40-94E24:30:57 HCACL"
--- NOTE | 2023-05-15 21:41 | ER ---
Nurse's Notes [facility] Name: Goyo Solorio Age: 38 yrs Sex: Female : 1985 Arrival Date: 05/15/2023 Time: 20:59 Bed 16 Private MD: Diagnosis: Dental root caries Presentation: 05/14 21:26 Chief complaint: Patient states: For the past 4 days I have been having left sided jaw jb4 pain that radiates to my left ear and left side of my neck. I think it is my tooth. Coronavirus screen: At this time, the client does not indicate any symptoms associated with coronavirus-19. Ebola Screen: No symptoms or risks identified at this time. Initial Sepsis Screen: Does the patient meet any 2 criteria? No. Patient's initial sepsis screen is negative. Does the patient have a suspected source of infection? No. Patient's initial sepsis screen is negative. Risk Assessment: Do you want to hurt yourself or someone else? Patient reports no desire to harm self or others. Onset of symptoms was May 15, 2023. Transition of care: patient was not received from another setting of care. 21:26 Method Of Arrival: Ambulatory jb4 21:26 Acuity: EUGENIO 4 jb4 Historical: - Allergies: 21:31 No Known Allergies; jb4 - PMHx: 21:31 Anxiety; panic attack; jb4 - PSHx: 21:31 Appendectomy; IUD removal; jb4 - Immunization history:: Adult Immunizations up to date. - Infectious Disease History:: Denies. - Social history:: Smoking status: Patient reports the use of cigarette tobacco products, denies chronic smoking, but will smoke occasionally, Patient uses alcohol, occasionally. - Family history:: not pertinent. Screenin:54 [facility] ED Fall Risk Assessment (Adult) History of falling in the last 3 months, cp4 including since admission No falls in past 3 months (0 pts) Confusion or Disorientation No (0 pts) Intoxicated or Sedated No (0 pts) Impaired Gait No (0 pts) Mobility Assist Device Used No (0 pt) Altered Elimination No (0 pt) Score/Fall Risk Level 0 - 2 = Low Risk Oriented to surroundings, Maintained a safe environment, Assessed \T\ reinforced patient's understanding of fall precautions, Hourly rounding (assess needs \T\ fall precautionary measures) done. Abuse screen: Denies threats or abuse. Nutritional screening: No deficits noted. Tuberculosis screening: No symptoms or risk factors identified. Assessment: 21:53 General: Appears uncomfortable, Behavior is calm, cooperative, appropriate for age. cp4 Pain: Complains of pain in left jaw. EENT: Vital Signs: 21:26 BP 119 / 89; Pulse 84; Resp 16; Temp 97.2(TE); Pulse Ox 98% on R/A; Weight 83.91 kg jb4 (R); Height 5 ft. 1 in. (R); Pain 6/10; 21:26 Body Mass Index 34.96 (83.91 kg, 154.94 cm) jb4 21:26 Pain Scale: Adult 4 ED Course: 21:09 Patient arrived in ED. gm2 21:12 Bj Packer MD is Attending Physician. rt 21:17 Trupti Celeste is Primary Nurse. cp4 21:31 Triage completed. jb4 21:31 Arm band placed on right wrist. jb4 21:54 Bed in low position. Call light in reach. Side rails up X 1. Provided Education on: cp4 dental caries. 21:54 No provider procedures requiring assistance completed. Patient did not have IV access cp4 during this emergency room visit. Administered Medications: No medications were administered Medication: 21:54 VIS not applicable for this client. cp4 Outcome: 21:40 Discharge ordered by . rt 21:54 Discharged to home ambulatory, cp4 21:54 Condition: stable 21:54 Discharge instructions given to patient, Instructed on discharge instructions, follow up and referral plans. medication usage, Demonstrated understanding of instructions, follow-up care, medications, Prescriptions given X 1, 21:56 Patient left the ED. cp4 Signatures: Wilson Smith, RN RN jb4 Bj Packer MD MD rt Trupti Celeste cp4 Yumiko Jacob gm2
--- NOTE | 2023-05-15 21:41 | EDPHYS ---
Physician Documentation [facility] Name: Goyo Solorio Age: 38 yrs Sex: Female : 1985 Arrival Date: 05/15/2023 Time: 20:59 Bed 16 Private MD: ED Physician Bj Packer HPI: 05/14 22:52 This 38 yrs old Female presents to ER via Ambulatory with complaints of Ear rt Pain, Facial Swelling. 22:52 Patient presents to the ED with a left lower dental pain that is radiating through the rt left ear. Patient reports a history of dental caries. Patient denies other acute complaints at this time, symptoms are mild in severity, no other aggravating or alleviating factors.. Historical: - Allergies: 21:31 No Known Allergies; jb4 - PMHx: 21:31 Anxiety; panic attack; jb4 - PSHx: 21:31 Appendectomy; IUD removal; jb4 - Immunization history:: Adult Immunizations up to date. - Infectious Disease History:: Denies. - Social history:: Smoking status: Patient reports the use of cigarette tobacco products, denies chronic smoking, but will smoke occasionally, Patient uses alcohol, occasionally. - Family history:: not pertinent. ROS: 22:52 Constitutional: Negative for fever, chills, and weight loss, Cardiovascular: Negative rt for chest pain, palpitations, and edema, Respiratory: Negative for shortness of breath, cough, wheezing, and pleuritic chest pain, Abdomen/GI: Negative for abdominal pain, nausea, vomiting, diarrhea, and constipation, Skin: Negative for injury, rash, and discoloration, Neuro: Negative for headache, weakness, numbness, tingling, and seizure, 22:52 ENT: Positive for dental pain, ear pain, Exam: 22:52 Constitutional: This is a well developed, well nourished patient who is awake, alert, rt and in no acute distress. Head/Face: Normocephalic, atraumatic. Chest/axilla: Normal chest wall appearance and motion. Nontender with no deformity. No lesions are appreciated. Cardiovascular: Regular rate and rhythm with a normal S1 and S2. No gallops, murmurs, or rubs. Normal PMI, no JVD. No pulse deficits. Respiratory: Lungs have equal breath sounds bilaterally, clear to auscultation and percussion. No rales, rhonchi or wheezes noted. No increased work of breathing, no retractions or nasal flaring. Abdomen/GI: Soft, non-tender, with normal bowel sounds. No distension or tympany. No guarding or rebound. No evidence of tenderness throughout. 22:52 ENT: Dental caries noted, TMs are clear bilaterally, no facial swelling . Vital Signs: 21:26 BP 119 / 89; Pulse 84; Resp 16; Temp 97.2(TE); Pulse Ox 98% on R/A; Weight 83.91 kg jb4 (R); Height 5 ft. 1 in. (R); Pain 6/10; 21:26 Body Mass Index 34.96 (83.91 kg, 154.94 cm) 4 21:26 Pain Scale: Adult jb4 MDM: 21:29 Patient medically screened. rt 22:52 Differential diagnosis: Dental caries, dental abscess. Data reviewed: vital signs, rt nurses notes. 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 Counseling: I had a detailed discussion with the patient and/or guardian regarding the historical points, exam findings, and any diagnostic results supporting the discharge/admit diagnosis, the need for outpatient follow up, to return to the emergency department if symptoms worsen or persist or if there are any questions or concerns that arise at home. Administered Medications: No medications were administered Disposition Summary: 05/15/23 21:40 Discharge Ordered Notes: Location: Home rt Problem: new rt Symptoms: are unchanged rt Condition: Stable rt Diagnosis - Dental root caries rt Followup: rt - With: Private Physician - When: 2 - 3 days - Reason: Discharge Instructions: - Discharge Summary Sheet rt - Dental Caries, Adult rt Forms: - Medication Reconciliation Form rt - Thank You Letter rt - Antibiotic Education rt - Prescription Opioid Use rt - Patient Portal Instructions rt - Leadership Thank You Letter rt Prescriptions: - Augmentin 875-125 mg Oral Tablet - take 1 tablet ORAL route every 12 hours for 10 days; 20 tablet; Refills: 0, rt Product Selection Permitted Signatures: Wilson Smith RN RN jb4 Bj Packer MD MD rt
[2023-05-16 05:15] VITALS: BP 119/89; TEMP 97.2; O2SAT 98
== END 2023-05-15 21:56 | disposition home or self-care (01) ==
LOC: ER 20:59
DX: K02.7 Dental root caries (principal)
CPT/HCPCS: 99283

== ENCOUNTER 2023-11-15 20:34 | Emergency (ER) | payer OTHER ==
--- OUTSIDE RECORDS SUMMARY | 2023-11-15 20:43 | XMS REPORT | Continuity of Care Document ---
Author Name Unknown Address [address] [facility] [address] [place] [address] [facility] thconnect Address [address] [facility]. [address] [place] [address] Care Team Providers Care Coal Hiker Name Role Phone Jared Torre Primary Care Physician [phone] TYRESE BACA Attending Clinician Unavailable Tyrese Nunn Attending Clinician [phone] Vickie Purvis Attending Clinician [phone] Unknown, Attending Attending Clinician Unavailab VICKIE Wong Attending Clinician Unavailable Lab, Ang - Db Attending Clinician Unavailable ANALISA SUAREZ Attending Clinician Unavail able GUERRERO STAHL Attending Clinician Unav ailable Provider, SrinivasaRmchp Temp Attending Clinician Kia vailable Guerrero Stahl MD Attending Clinician + Analisa Field Attending Clinician + JULY RICE Attending Clinician Unavailable RAMON WILDER Attending Clinician UnaDeja Torres MA Attending Clinician UnavailJARED Lowery Attending Clinician Unavailable Laura Joshua Attending Clinician [phone] Unknown, Attending Attending Clinician Unavailab LAURA Huntley Attending Clinician Unavailable DEE HUFFMAN Attending Clinician Unavailable Pgy3 Attending Clinician Unavailable Dee Huffman MD Attending Clinician [phone] Doctor Unassigned, [place] Attending Clinician U Deja Waldrop CNM Attending Clinician [phone] DEJA ÁLVAREZ Attending Clinician Unavaila KHANH Castrejon Attending Clinician Unavailable Tyrese Nunn Attending Clinician [phone] Jared Torre Attending Clinician [phone] Dany Knox Attending Clinician + [phone] DANY CARIAS Attending Clinician Unavailab RAMÓN Trejo Attending Clinician Unavailable Yan QUINNCRamón Attending Clinician [phone] Pob, [facility] Main Attending Clinician UnavailShanita Muniz Attending Clinician [phone] Ramiro HERRERA, Janae Sunshine Attending Clinician Unavaila Manuel Torres Attending Clinician Unavailable Manuel Medina Attending Clinician [phone] Lab, Ang - Db Attending Clinician Unavailable Shanon Beckham MD Attending Clinician [phone] Oumar Vicente Attending Clinician [phone] OUMAR DUDLEY Attending Clinician UnavailJuly Snider LVN Attending Clinician MARIA ISABEL Pagan Attending Clinician Unavailable Parviz CARVALHOP, Maria Isabel Attending Clinician [phone] GABRIELLE MARTÍNEZ Attending Clinician Unavailable Gabrielle Dillard Attending Clinician +[phone] PAMELA PRESLEY Attending Clinician Unavailab brittany Presley SMALL ENGINE TECHNICIAN, Pamela Short Attending Clinician + [phone] GERTRUDE MILLAN Attending Clinician UnavailMINOO Garcia Attending Clinician UnavailJAG Wray Attending Clinician Unavailable Jag Magana DO Attending Clinician + [phone] JOB KASPER Attending Clinician Unavailable Job Kasper MD Attending Clinician + [phone] JIMENA MAYO Attending Clinician Unavailable Sarah LEES, Carine Attending Clinician + [phone] NORA SANCHEZ Attending Clinician Unavailtita Sanchez SMALL ENGINE TECHNICIAN, Nora Montoya Attending Clinician [phone] Roger HERRERA, Leidy Attending Clinician Unavailable Nurse, [facility] Attending Clinician Unava ilable Vipul SMALL ENGINE TECHNICIAN, Paris Attending Clinician [phone] Toby Richards MD Attending Clinician + [phone] TOBY RICHARDS Attending Clinician Unavailable 1, [facility] Attending Clinician Unavaila tonio Jiménez RN, Mike Attending Clinician Unavailab brittany Ultrasound, [facility] Attending Clinician Unavaila tonio Domingo MD, Jordan Salcedo Attending Clinician +[phone] Julio Da Silva APN Attending Clinician +[phone] Radha HERRERA, Lynn Lemus Attending Clinician Unavailab brittany Jamil MD, Tracey Attending Clinician +[phone] Yoshi Esparza MD Attending Clinician [phone] Sandra LEES, Minoo Lemus Attending Clinician [phone] Only, Ad[facility] Test Attending Clinician Unavailable Kevan Beaulieu MD Attending Clinician [phone] [phone], [facility] Attending Clinician Unav MELODY Craig Attending Clinician Unavaila tonio Provider, [facility] Attending Clinician Un available Corazon SMALL ENGINE TECHNICIAN, Kvng Banks Attending Clinician [phone] Nurse, [facility] Attending Clinician Unava ilable NARA, ATTENDING Attending Clinician Unavailab brittany LUCIANO, Simba Attending Clinician [phone] Manuel STANFORD Admitting Clinician Unavailable GABRIELLE MARTÍNEZ Admitting Clinician Unavailable JIMENA MAYO Admitting Clinician Unavailable Payers Payer Name Policy Type Policy Number Effective Date Expirati on Date Source [facility] [id number] 2019 00:00:00 [facility] [id number] 2016 00:00:00 MEDICAID PENDING PENDING 2019 00:00:00 Problems Condition Name Condition Details Condition Category Status Onset Date Resolution Date Last Treatment Date Treating Clinician Comments Source Prediabete s Prediabete s Disease Active 11-02 00:00: 00 [facility] Insomnia, unspecifie d type Insomnia, unspecifie d type Disease Active 11-02 00:00: 00 [facility] Chronic constipati on Chronic constipati on Disease Active 11-02 00:00: 00 [facility] Irregular menstrual cycle Irregular menstrual cycle Disease Active 09-05 00:00: 00 [facility] Encounter for other general counseling or advice on contracept ion Encounter for other general counseling or advice on contracept ion Disease Active 09-05 00:00: 00 [facility] Diverticul osis Diverticul osis Disease Active 5-20 00:00: 00 [facility] Herpes zoster without complicati on Herpes zoster without complicati on Disease Active 4-20 00:00: 00 [facility] History of anxiety History of anxiety Disease Active 2-23 00:00: 00 [facility] Former smoker Former smoker Disease Active 2-23 00:00: 00 [facility] Obesity (BMI 35.0-39.9 without comorbidit y) Obesity (BMI 35.0-39.9 without comorbidit y) Disease Active 8- 00:00: 00 [facility] Dizziness Dizziness Disease Resolve d 2021- 6-08 00:00: 00 2023-06-22 00:00:00 2023-06-22 13:37:48 [facility] Left arm pain Left arm pain Disease Resolve d 0 4-22 00:00: 00 2023-06-22 00:00:00 2023-06-22 13:37:44 [facility] Positive D dimer Positive D dimer Disease Resolve d 0 4-20 00:00: 00 2023-06-22 00:00:00 2023-06-22 13:37:41 [facility] BMI 32.0-32.9, adult BMI 32.0-32.9, adult Disease Resolve d 2-23 00:00: 00 2023-06-22 00:00:00 2023-06-22 13:37:36 [facility] Chest pain, atypical Chest pain, atypical Disease Resolve d 8-12 00:00: 00 2023-06-22 00:00:00 2023-06-22 13:37:19 [facility] Urinary tract infection without hematuria, site unspecifie d Urinary tract infection without hematuria, site unspecifie d Disease Resolve d 7-07 00:00: 00 2021-12-20 00:00:00 2021-12-20 18:50:56 [facility] Vaginal discharge Vaginal discharge Disease Resolve d 6-23 00:00: 00 2021-12-20 00:00:00 2021-12-20 18:50:53 [facility] Screen for STD (sexually transmitte d disease) Screen for STD (sexually transmitte d disease) Disease Resolve d 5-04 00:00: 00 2021-12-20 00:00:00 2021-12-20 18:51:33 [facility] Absence of menstruati on Absence of menstruati on Disease Resolve d 0 8-22 00:00: 00 2021-12-20 00:00:00 2021-12-20 18:50:57 [facility] Papanicola ou smear of cervix with low grade squamous intraepith elial lesion (LGSIL) Papanicola ou smear of cervix with low grade squamous intraepith elial lesion (LGSIL) Disease Resolve d 0 7-24 00:00: 00 2021-12-20 00:00:00 2021-12-20 18:51:31 [facility] Hospital discharge follow-up Hospital discharge follow-up Disease Resolve d 2021-0 4-20 00:00: 00 2021-06-10 00:00:00 2021-06-10 14:08:40 [facility] Normal labor Normal labor Disease Resolve d 2020-1 0-19 00:00: 00 2021-06-10 00:00:00 2021-06-10 14:08:45 [facility] (normal spontaneou s vaginal delivery) (normal spontaneou s vaginal delivery) Disease Resolve d 2020-1 0-19 00:00: 00 2021-06-10 00:00:00 2021-06-10 14:08:48 [facility] History of delivery History of delivery Disease Resolve d 2020-0 2-23 00:00: 00 2021-06-10 00:00:00 2021-06-10 14:08:34 [facility] History of premature rupture of membranes (PROM) in previous , currently in first trimester History of premature rupture of membranes (PROM) in previous , currently in first trimester Disease Resolve d 2020-0 2-23 00:00: 00 2021-06-10 00:00:00 2021-06-10 14:08:36 [facility] 39 weeks gestation of 39 weeks gestation of Disease Resolve d 2017-0 3-12 00:00: 00 2021-06-10 00:00:00 2021-06-10 14:08:19 [facility] Supervisio n of high risk in first trimester Supervisio n of high risk in first trimester Disease Resolve d 2017-0 1-03 00:00: 00 2021-06-10 00:00:00 2021-06-10 14:09:05 [facility] Multiparit y Multiparit y Disease Resolve d 2017-0 8-22 00:00: 00 2021-06-10 00:00:00 2021-06-10 14:08:43 [facility] Vaginal bleeding in , first trimester Vaginal bleeding in , first trimester Disease Resolve d 2020- 2-23 00:00: 00 2020-10-16 00:00:00 2020-10-16 14:42:58 [facility] Pain pelvic Pain pelvic Disease Resolve d 2-23 00:00: 00 2020-10-16 00:00:00 2020-10-16 14:42:42 [facility] Anemia, antepartum , third trimester Anemia, antepartum , third trimester Disease Resolve d 3-13 00:00: 00 2017-05-19 00:00:00 2017-05-19 23:13:46 [facility] Anxiety and depression Anxiety and depression Disease Active 3- 00:00: 00 2017-05-19 00:00:00 2017-05-19 23:14:13 Overview: Formattin g of this note might be different from the original. History of same,obs for same postpartu m [facility] Normal spontaneou s vaginal delivery Normal spontaneou s vaginal delivery Disease Resolve d 3-13 00:00: 00 2017-05-19 00:00:00 2017-05-19 23:14:05 [facility] Itching Itching Disease Resolve d 3-13 00:00: 00 2017-05-19 00:00:00 2017-05-19 23:14:09 [facility] Labor and delivery indication for care or interventi on Labor and delivery indication for care or interventi on Disease Resolve d 04-18 00:00: 00 2017-05-19 00:00:00 2017-05-19 23:14:17 [facility] Positive GBS test Positive GBS test Disease Resolve d 2-28 00:00: 00 2017-05-19 00:00:00 2017-05-19 23:13:37 [facility] Insufficie nt care in third trimester Insufficie nt care in third trimester Disease Resolve d 1-03 00:00: 00 2017-05-19 00:00:00 2017-05-19 23:14:01 [facility] Decreased movements in third trimester, single or unspecifie d fetus Decreased movements in third trimester, single or unspecifie d fetus Disease Resolve d 2-13 00:00: 00 2017-04-19 00:00:00 2017-04-19 07:49:49 [facility] Supervisio n of high risk , antepartum , first trimester Supervisio n of high risk , antepartum , first trimester Disease Resolve d 09-28 00:00: 00 2017-02-09 00:00:00 2017-02-09 11:18:25 [facility] Chlamydia trachomati s infection of lower genitourin danni sites Chlamydia trachomati s infection of lower genitourin danni sites Disease Resolve d 08-30 00:00: 00 2016-07-29 00:00:00 2016-07-29 16:09:38 [facility] Allergies, Adverse Reactions, Alerts Allergy Name Allergy Type Status Severity Reaction(s) Onset Date Inactive Date Treating Clinician Comments Source No Known Allergie s DA Active U 08-21 00:00: 00 [facility] No Known Allergie s DA Active U 2012-02 0 00:00: 00 [facility] NO KNOWN ALLERGIE S Drug Class Active [facility] Social History Social Habit Start Date Stop Date Quantity Comments Source Gender identity [facility] Sexual orientation [facility] ASSERTION [facility] [place] [place] Alcoholic beverage intake 2023-11-08 00:00:00 2023-11-08 00:00:00 Ex-drinker (finding) [facility] [place] [place] History of Social function 2023-11-03 00:00:00 2023-11-03 00:00:[address] [facility] [place] [place] Cigarettes smoked current (pack per day) - Reported 2023-06-22 00:00:00 2023-06-22 00:00:[address] [facility] [place] [place] Cigarette pack-years 2023-06-22 00:00:00 2023-06-22 00:00:[address] [facility] [place] [place] Tobacco use and exposure 2023-06-22 00:00:00 2023-06-22 00:00:00 Smokeless tobacco non-user [facility] [place] [place] Tobacco Comment 2023-06-22 00:00:00 2023-06-22 00:00:00 smokes 2 x socially - [facility] [place] [place] Exposure to SARS-CoV-2 (event) 2022-02-05 00:00:00 2022-02-15 18:53:[address] [facility] [place] [place] Education 2020-11-25 00:00:00 2020-11-25 00:00:[address] [facility] [place] [place] Alcohol Comment 2020-04-01 00:00:00 2020-04-01 00:00:[address] [facility] [place] [place] History SDOH Alcohol Frequency 2020-04-01 00:00:00 2020-04-01 00:00:[address] [facility] [place] [place] History SDOH Alcohol Std Drinks 2020-04-01 00:00:00 2020-04-01 00:00:[address] [facility] [place] [place] History SDOH Alcohol Binge 2020-04-01 00:00:00 2020-04-01 00:00:[address] [facility] [place] [place] Alcohol intake 2019-08-19 00:00:00 2019-08-19 00:00:00 Current drinker of alcohol (finding) [facility] [place] [place] History of tobacco use 2016-08-28 00:00:[address] [facility] [place] [place] Sex assigned at 1985 00:00:00 1985 00:00:[address] [facility] [place] [place] Smoking Status Start Date Stop Date Source Ex-smoker 2023-06-22 00:00:00 2023-06-22 [facility]00[facility] Medications Ordered Medication Name Filled Medication Name Start Date Stop Date Current Medication? Ordering Clinician Indication Dosage Frequency Signature (SIG) Comments Components Source predniSONE 20 mg tablet 2023-02 0 00:00: 00 11-13 04:59 :00 Yes [id number] 40mg Take 2 tablets by mouth in the morning for 5 days. [facility] SERTraline (ZOLOFT) 50 mg tablet 11-02 00:00: 00 Yes [id number] 50mg Take 1 tablet by mouth in the morning. [facility] traZODone 50 mg tablet 11-02 00:00: 00 Yes [id number] 50mg Take 1 tablet by mouth at bedtime. [facility] polyethylen e glycol 3350 17 gram/dose powder 11-02 00:00: 00 Yes [id number] 17g Take 17 g by mouth 2 (two) times daily as needed for Constipati on. [facility] norethindro ne 0.35 mg tablet 09-05 00:00: 00 Yes [id number] 1{tbl} Take 1 tablet by mouth in the morning. [facility] norethindro ne 0.35 mg tablet 06-21 00:00: 00 09-05 00:00 :00 No [id number] 1{tbl} Take 1 tablet by mouth in the morning. [facility] busPIRone 10 mg tablet 02-15 19:02: 28 Yes 10mg Take 10 mg by mouth as needed. [facility] azithromyci n (ZITHROMAX Z-MARICHUY) 250 mg tablet 02-15 00:00: 00 06-21 00:00 :00 No [id number] Z pack as directed [facility] benzonatate 200 mg capsule 02-15 00:00: 00 02-26 05:59 :00 No [id number] 200mg Take 1 capsule by mouth 3 (three) times daily as needed for Cough for up to 10 days. [facility] albuterol 90 mcg/actuati on inhaler 02-15 00:00: 00 02-26 05:59 :00 No [id number] 2{puff} Inhale 2 Puffs every 6 (six) hours as needed for Wheezing for up to 10 days. [facility] ampicillin 500 mg capsule 2021-02 00:00: 00 06-21 00:00 :00 No [id number] 500mg Take 1 capsule by mouth every 6 (six) hours. [facility] ampicillin 500 mg capsule 2021-02- 00:00: 00 01-01 05:59 :00 No [id number] 500mg Take 1 capsule by mouth every 6 (six) hours for 10 days. [facility] norethindro ne 0.35 mg tablet 2021-02 00:00: 00 06-21 00:00 :00 No [id number] 1{tbl} Take 1 tablet by mouth in the morning. [facility] metroNIDAZO LE 500 mg tablet 2021-02 00:00: 00 12-26 05:59 :00 No [id number] 500mg Take 1 tablet by mouth in the morning and 1 tablet in the evening. Do all this for 7 days. [facility] ampicillin 500 mg capsule 08-21 00:00: 00 09-01 04:59 :00 No [id number] 500mg Take 1 capsule by mouth 4 (four) times daily for 10 days. [facility] citalopram 10 mg tablet 08-19 00:00: 00 06-21 00:00 :00 No [id number] 10mg Take 1 tablet by mouth in the morning. [facility] ibuprofen 600 mg tablet 07-20 00:00: 00 06-21 00:00 :00 No [id number] 600mg Take 1 tablet by mouth every 6 (six) hours as needed for Pain (scale 4-6). [facility] busPIRone 10 mg tablet 07-15 17:04: 42 06-21 00:00 :00 No 10mg Take 1 tablet by mouth as needed. [facility] vit 33-iron-fol ic-dha (SELECT-OB + DHA) 29 mg iron-1 mg -250 mg combo pack 08-27 00:00: 00 06-10 00:00 :00 No 1{packe t} Take 1 Packet by mouth daily. [facility] cyclobenzap rine 5 mg tablet 8-14 00:00: 00 04-01 00:00 :00 No [id number] 4 5mg Take 1 tablet by mouth 2 (two) times daily as needed for Muscle Spasms. Can cause drowsiness . [facility] gabapentin 100 mg capsule 2019-0 8-12 00:00: 00 04-01 00:00 :00 No [id number] 100mg Take 1 capsule by mouth 3 (three) times daily as needed (nerve pain). [facility] Immunizations Ordered Immunization Name Filled Immunization Name Date Status Comments Source TDAP 2020-09-15 00:00:[address] [facility] [place] [place] TDAP 2020-09-15 00:00:[address] [facility] [place] [place] TDAP 2020-09-15 00:00:[address] [facility] [place] [place] TDAP 2020-09-15 00:00:[address] [facility] [place] [place] TDAP 2020-09-15 00:00:[address] [facility] [place] [place] TDAP 2020-09-15 00:00:[address] [facility] [place] [place] TDAP 2020-09-15 00:00:[address] [facility] [place] [place] TDAP 2020-09-15 00:00:[address] [facility] [place] [place] TDAP 2020-09-15 00:00:[address] [facility] [place] [place] TDAP 2020-09-15 00:00:[address] [facility] [place] [place] TDAP 2020-09-15 00:00:[address] [facility] [place] [place] TDAP 2020-09-15 00:00:[address] [facility] [place] [place] TDAP 2020-09-15 00:00:[address] [facility] [place] [place] TDAP 2020-09-15 00:00:[address] [facility] [place] [place] TDAP 2020-09-15 00:00:[address] [facility] [place] [place] TDAP 2020-09-15 00:00:[address] [facility] [place] [place] TDAP 2020-09-15 00:00:[address] [facility] [place] [place] TDAP 2020-09-15 00:00:[address] [facility] [place] [place] TDAP 2017-02-09 00:00:[address] [facility] [place] [place] TDAP 2017-02-09 00:00:[address] [facility] [place] [place] TDAP 2017-02-09 00:00:[address] [facility] [place] [place] TDAP 2017-02-09 00:00:[address] [facility] [place] [place] TDAP 2017-02-09 00:00:[address] [facility] [place] [place] TDAP 2017-02-09 00:00:[address] [facility] [place] TDAP 2017-02-09 00:00:[address] [facility] [place] [place] TDAP 2017-02-09 00:00:[address] [facility] [place] [place] TDAP 2017-02-09 00:00:[address] [facility] [place] [place] TDAP 2017-02-09 00:00:[address] [facility] [place] [place] TDAP 2017-02-09 00:00:[address] [facility] [place] TDAP 2017-02-09 00:00:[address] [facility] [place] TDAP 2017-02-09 00:00:[address] [facility] [place] TDAP 2017-02-09 00:00:[address] [facility] [place] [place] TDAP 2017-02-09 00:00:[address] [facility] [place] [place] TDAP 2017-02-09 00:00:[address] [facility] [place] [place] TDAP 2017-02-09 00:00:[address] [facility] [place] TDAP 2017-02-09 00:00:[address] [facility] [place] [place] TDAP 2007-02-07 00:00:[address] [facility] [place] [place] TDAP 2007-02-07 00:00:[address] [facility] [place] TDAP 2007-02-07 00:00:[address] [facility] [place] TDAP 2007-02-07 00:00:[address] [facility] [place] TDAP 2007-02-07 00:00:[address] [facility] [place] TDAP 2007-02-07 00:00:[address] [facility] [place] TDAP 2007-02-07 00:00:[address] [facility] [place] TDAP 2007-02-07 00:00:[address] [facility] [place] TDAP 2007-02-07 00:00:[address] [facility] [place] TDAP 2007-02-07 00:00:[address] [facility] [place] TDAP 2007-02-07 00:00:[address] [facility] [place] TDAP 2007-02-07 00:00:[address] [facility] [place] TDAP 2007-02-07 00:00:[address] [facility] [place] TDAP 2007-02-07 00:00:[address] [facility] [place] TDAP 2007-02-07 00:00:[address] [facility] [place] TDAP 2007-02-07 00:00:[address] [facility] [place] TD[place] 2007-02-07 00:00:[address] [facility] [place] TD[place] 2007-02-07 00:00:[address] [facility] [place] TDAP Unknown Completed [facility] [place] [place] TDAP Unknown Completed [facility] [place] [place] TDAP Unknown Completed [facility] [place] [place] TDAP Unknown [facility]pleted [facility] [place] TD[facility] Unknown Completed [facility] [place] [facility] Unknown Completed [facility] [place] [facility] Unknown Completed [facility] [place] Unknown Completed [facility] [place] [facility] Unknown [facility]pleted [facility] [place] [facility] Unknown Completed [facility] [place] Unknown Completed [facility] [place] [facility] Unknown Completed [facility] [place] TD[facility] Unknown Completed [facility] [place] TD[facility] Unknown Completed [facility] [place] [place] TDAP Unknown Completed [facility] [place] [place] Vital Signs Vital Name Observation Time Observation Value Comments S ource Systolic blood pressure 2023-11-08 15:48:00 112 mm[Hg] [facility] Diastolic blood pressure 2023-11-08 15:48:00 75 mm[Hg] [facility] Heart rate 2023-11-08 15:48:00 95 /min [facility] Body temperature 2023-11-08 15:48:[address] [facility] [facility] [place] [place] Respiratory rate 2023-11-08 15:48:00 20 /min [facility] [place] [place] Body height 2023-11-08 15:48:00 154.9 cm [facility] Body weight 2023-11-08 15:48:00 89.495 kg [facility] BMI 2023-11-08 15:48:00 37.28 kg/m2 [facility] Oxygen saturation in Arterial blood by Pulse oximetry 2023-11-08 15:48:00 96 /min [facility] Systolic blood pressure 2023-11-03 20:19:00 118 mm[Hg] [facility] Diastolic blood pressure 2023-11-03 20:19:00 77 mm[Hg] [facility] Heart rate 2023-11-03 20:19:00 113 /min [facility] Body height 2023-11-03 20:19:00 154.9 cm [facility] Body weight 2023-11-03 20:19:00 89.585 kg [facility] BMI 2023-11-03 20:19:00 37.32 kg/m2 [facility] Oxygen saturation in Arterial blood by Pulse oximetry 2023-11-03 20:19:00 97 /min [facility] Systolic blood pressure 2023-09-06 15:20:00 125 mm[Hg] [facility] Diastolic blood pressure 2023-09-06 15:20:00 80 mm[Hg] [facility] Heart rate 2023-09-06 15:20:00 93 /min [facility] Body temperature 2023-09-06 15:20:[address] [facility] [place] [place] Body height 2023-09-06 15:20:00 154.9 cm [facility] Body weight 2023-09-06 15:20:00 87.998 kg [facility] BMI 2023-09-06 15:20:00 36.66 kg/m2 [facility] Systolic blood pressure 2023-06-22 12:10:00 120 mm[Hg] [facility] Diastolic blood pressure 2023-06-22 12:10:00 85 mm[Hg] [facility] Heart rate 2023-06-22 12:10:00 89 /min [facility] Body temperature 2023-06-22 12:10:[address] [facility] [place] [place] Respiratory rate 2023-06-22 12:10:00 29 /min [facility] [place] [place] Body height 2023-06-22 12:10:00 154.9 cm [facility] Body weight 2023-06-22 12:10:00 86.183 kg [facility] BMI 2023-06-22 12:10:00 35.90 kg/m2 [facility] Systolic blood pressure 2022-02-16 01:01:00 124 mm[Hg] [facility] Diastolic blood pressure 2022-02-16 01:01:00 87 mm[Hg] [facility] Heart rate 2022-02-16 01:01:00 94 /min [facility] Body temperature 2022-02-16 01:01:[address] [facility] [place] [place] Respiratory rate 2022-02-16 01:01:00 17 /min [facility] [place] [place] Body height 2022-02-16 01:01:00 154.9 cm [facility] Body weight 2022-02-16 01:01:00 82.781 kg [facility] BMI 2022-02-16 01:01:00 34.48 kg/m2 [facility] Oxygen saturation in Arterial blood by Pulse oximetry 2022-02-16 01:01:00 100 /min [facility] Systolic blood pressure 2022-01-08 19:57:00 123 mm[Hg] [facility] Diastolic blood pressure 2022-01-08 19:57:00 78 mm[Hg] [facility] Heart rate 2022-01-08 19:57:00 103 /min [facility] Body temperature 2022-01-08 19:57:[address] [facility] [place] [place] Respiratory rate 2022-01-08 19:57:00 18 /min [facility] [place] [place] Body height 2022-01-08 19:57:00 154.9 cm [facility] Body weight 2022-01-08 19:57:00 82.056 kg [facility] BMI 2022-01-08 19:57:00 34.18 kg/m2 [facility] Systolic blood pressure 2021-12-18 20:33:00 110 mm[Hg] [facility] Diastolic blood pressure 2021-12-18 20:33:00 70 mm[Hg] [facility] Heart rate 2021-12-18 20:33:00 96 /min [facility] Body temperature 2021-12-18 20:33:[address] [facility] [place] [place] Respiratory rate 2021-12-18 20:33:00 17 /min [facility] [place] [place] Body height 2021-12-18 20:33:00 154.9 cm [facility] Body weight 2021-12-18 20:33:00 79.742 kg [facility] BMI 2021-12-18 20:33:00 33.22 kg/m2 [facility] Procedures Procedure Date / Time Performed Performing Clinician Source POCT MOLECULAR STREP 2023-11-08 15:52:00 Unknown, Attgilmer mckeon [facility] [place] [place] POCT TEST 2023-06-22 00:00:[address] [facility] [place] DISCLOSURE AND CONSENT, MEDICAL AND SURGICAL PROCEDURES 2022-01-08 06:01:00 Doctor Unassigned, Shellman [facility] [place] [place] HCV ANTIBODY 2021-12-18 21:53:00 [facility] 2021-12-18 21:53:00 Deja Álvarez [facility] [place] [place] HIV 1/2 AG-AB WITH REFLEX 2021-12-18 21:53:00 Deja Álvarez [facility] [place] [place] PAP SMEAR-LIQUID BASED-CP 2021-12-18 21:53:00 Deja Álvarez [facility] [place] [place] GALV ONLY - SYPHILIS IGG/IGM 2021-12-18 21:53:00 Deja Álvarez [facility] [place] [place] URINE CULTURE 2021-12-18 21:53:00 Deja Álvarez [facility] [place] [place] GC & CHLAMYDIA AMPLIFIED ASSAY 2021-12-18 21:53:00 Deja Álvarez [facility] [place] [place] HIGH RISK HPV-THIN PREP 2021-12-18 21:53:00 Deja Álvarez [facility] [place] [place] TRICHOMONAS AMPLIFIED ASSAY 2021-12-18 21:53:00 Deja Álvarez [facility] [place] [place] POCT TEST 2021-12-18 00:00:00 Nidhi Álvarez [facility] [place] [place] POCT URINALYSIS W/O SPECIFIC GRAVITY 2021-12-18 00:00:00 Deja Álvarez [facility] [place] [place] Encounters Start Date/Time End Date/Time Encounter Type Admission Type Attending [facility] Facility Care Department Encounter ID Source 2020-12-07 15:42:49 Emergency [facility] [id number] [facility] 2020-12-07 01:14:36 Emergency [facility] [id number] [facility] 2020-12-05 06:56:18 Emergency [facility] [id number] [facility] 2020-12-05 06:14:29 Emergency [facility] [id number] [facility] 2023-11-08 00:00:00 2023-11-09 09:33:55 Patient Secure MsTyrese Boyd [facility] MED[facility] OFFICE BUILD[facility] 1.2.840.114 350.1.13.10 4.2.7.2.686 [id number] [facility] 2023-11-08 10:20:00 2023-11-08 10:40:00 Urgent Care YanVickie partida Unknown, Attending [facility] MEDICAL OFFICE BUILDING 1.2.840.114 350.1.13.10 4.2.7.2.686 [id number] [facility] 2023-11-08 10:20:00 2023-11-08 10:20:00 Outpatient R VICKIE LICEA [facility] [id number] [facility] 2023-11-04 11:00:00 2023-11-04 11:15:00 Residential Electrician Visit Lab, Ang - Db Tyrese Baca Lab, Ang - Db [facility] MEDICAL OFFICE BUILDING 1.2.840.114 350.1.13.10 4.2.7.2.686 [id number] [facility] 2023-11-04 11:00:00 2023-11-04 11:00:00 Outpatient TYRESE TURNRE [facility] [id number] [facility] 2023-11-03 15:30:00 2023-11-03 15:54:44 Outpatient R TYRESE BACA [facility] [id number] [facility] 2023-11-03 15:30:00 2023-11-03 15:54:44 Office Visit Tyrese Baca [facility] 1.2.840.114 350.1.13.10 4.2.7.2.686 [id number] [facility] 2023-11-01 16:15:45 2023-11-01 16:15:45 Outpatient [facility] [id number] Matias Hung 2023-10-28 13:31:52 2023-10-28 13:31:52 Outpatient [facility] [address] Matias Hung 2023-09-06 10:30:00 2023-09-06 11:01:05 Outpatient R GUERRERO STEWART [facility] [id number] [facility] 2023-09-06 10:30:00 2023-09-06 11:01:05 Office Visit Provider, Guerrero Adams [facility] [employer] [facility] 1..840.114 350.1.13.10 4.2.7.2.686 [id number] [facility] 2023-06-22 00:00:00 2023-06-22 08:13:41 Letter (Out) Analisa Suarez [facility] [employer] 1..840.114 350.1.13.10 4.2.7.2.686 [id number] [facility] 2023-06-22 06:45:00 2023-06-22 08:09:35 Outpatient JULY ANTONIO [facility] [id number] [facility] 2023-06-22 06:45:00 2023-06-22 08:09:35 Office Visit Provider, Rodneyp Analisa Murphy Candice [facility] 1.840.114 350.1.13.10 4.2.7.2.686 [id number] [facility] 2023-03-21 13:20:00 2023-03-21 13:20:00 Outpatient R [facility] [id number] [facility] 2022-10-26 17:46:44 2022-10-26 17:46:44 Outpatient [facility] [id number] Persaud 2022-09-01 00:00:00 2022-09-01 00:00:00 Telephone Deja Strong .840.114 350.1.13.10 4.2.7.2.686 [id number] [facility] 2022-04-16 14:00:00 2022-04-16 14:00:00 Outpatient R TYRESE BACA [facility] [id number] [facility] 2022-03-31 15:30:00 2022-03-31 15:30:00 Outpatient R JARED COLLADO [facility] [id number] [facility] 2022-03-23 10:30:00 2022-03-23 10:30:00 Outpatient JARED DOUGLAS [facility] [id number] [facility] 2022-03-22 09:30:00 2022-03-22 09:30:00 Outpatient JARED DOUGLAS [facility] [id number] [facility] 2022-02-15 18:40:00 2022-02-15 19:00:00 Urgent Care Laura Lowe Unknown, Attending [facility] 1.840.114 350.1.13.10 4.2.7.2.686 [id number] [facility] 2022-02-15 18:40:00 2022-02-15 18:40:00 Outpatient R LAURA LOWE [facility] [id number] [facility] 2022-01-08 13:30:00 2022-01-08 15:04:40 Outpatient R DEE HUFFMAN [facility] [id number] [facility] 2022-01-08 13:30:00 2022-01-08 15:04:40 Office Visit Pgy3 Dee Huffman [facility] 1..840.114 350.1.13.10 4.2.7.2.686 [id number] [facility] 2022-01-08 00:00:00 2022-01-08 00:00:00 Orders Only Doctor Unassigned, Shellman [facility] 1..840.114 350.1.13.10 4.2.7.2.686 [id number] [facility] 2022-01-07 00:00:00 2022-01-07 00:00:00 Case Management Deja Álvarez [facility] [employer] [facility] 1.2.840.114 350.1.13.10 4.2.7.2.686 [id number] [facility] 2022-01-07 00:00:00 2022-01-07 00:00:00 Telephone Deja Álvarez [facility] [employer] [facility] 1.2.840.114 350.1.13.10 4.2.7.2.686 [id number] [facility] 2022-01-05 00:00:00 2022-01-05 00:00:00 Refill Deja Álvarez [facility] [employer] 1.2.840.114 350.1.13.10 4.2.7.2.686 [id number] [facility] 2021-12-21 00:00:00 2021-12-21 00:00:00 Case Management Deja Álvarez [facility] [employer] [facility]ECT [facility] 1..840.114 350.1.13.10 4.2.7.2.686 [id number] [facility] 2021-12-18 14:15:00 2021-12-18 15:30:31 Outpatient R DEJA ÁLVAREZ [facility] [id number] [facility] 2021-12-18 14:15:00 2021-12-18 15:30:31 Office Visit Provider, Drake-Deja Toribio [facility] [employer] 1..840.114 350.1.13.10 4.2.7.2.686 [id number] [facility] 2021-09-28 11:00:00 2021-09-28 11:00:00 Outpatient JARED DOUGLAS [facility] [id number] [facility] 2021-09-24 13:45:00 2021-09-24 13:45:00 Outpatient KHANH PATEL [facility] [id number] [facility] 2021-09-18 09:30:00 2021-09-18 09:30:00 Outpatient TYRESE TURNER [facility] [id number] [facility] 2021-09-01 15:30:00 2021-09-01 15:30:00 Outpatient JARED DOUGLAS [facility] [id number] [facility] 2021-08-28 00:00:00 2021-08-28 00:00:00 Patient Secure Tyrese Ospina [facility] 1..840.114 350.1.13.10 4.2.7.2.686 [id number] [facility] 2021-08-24 00:00:00 2021-08-24 00:00:00 Abstract Jared Collado [facility] 1..840.114 350.1.13.10 4.2.7.2.686 [id number] [facility] 2021-08-21 00:00:00 2021-08-21 00:00:00 Telephone Analisa Suarez [facility] [employer] [facility] 1..840.114 350.1.13.10 4.2.7.2.686 [id number] [facility] 2021-08-19 16:00:00 2021-08-19 16:00:00 Outpatient R TOBIAS JARED [facility] [id number] [facility] 2021-08-19 00:00:00 2021-08-19 00:00:00 Refill EldaJared lemus [facility] 1..840.114 350.1.13.10 4.2.7.2.686 [id number] [facility] 2021-08-19 00:00:00 2021-08-19 00:00:00 Refill Dany Carias [facility] 1..840.114 350.1.13.10 4.2.7.2.686 [id number] [facility] 2021-08-19 00:00:00 2021-08-19 00:00:00 Refill Doctor Unassigned, Shellman [facility] 1..840.114 350.1.13.10 4.2.7.2.686 [id number] [facility] 2021-08-17 00:00:00 2021-08-17 00:00:00 Patient Secure Msg Dany Carias [facility] MATERNAL & CHILD [facility] 1.2.840.114 350.1.13.10 4.2.7.2.686 [id number] [facility] 2021-08-13 14:15:00 2021-08-13 16:02:04 Outpatient R DANY CARIAS [facility] [id number] [facility] 2021-08-13 14:15:00 2021-08-13 16:02:04 Office Visit Dany Carias [facility] ARCHITECT [facility] 1..840.114 350.1.13.10 4.2.7.2.686 [id number] [facility] 2021-08-13 14:15:00 2021-08-13 14:15:00 Outpatient R DANY CARIAS [facility] [id number] [facility] 2021-08-12 00:00:00 2021-08-12 00:00:00 Patient Secure Dany Anton [facility] INTE[employer]ATION ARCHITECT [facility] CH[facility] 1.2.840.114 350.1.13.10 4.2.7.2.686 [id number] [facility] 2021-08-07 16:00:00 2021-08-07 16:00:00 Outpatient JARED DOUGLAS [facility] [id number] [facility] 2021-08-04 00:00:00 2021-08-04 00:00:00 Telephone Dany Carias [facility] ARCHITECT [facility] 1.2.840.114 350.1.13.10 4.2.7.2.686 [id number] [facility] 2021-08-04 00:00:00 2021-08-04 00:00:00 Patient Secure Jared Collado [facility] 1.2.840.114 350.1.13.10 4.2.7.2.686 [id number] [facility] 2021-08-04 00:00:00 2021-08-04 00:00:00 Patient Secure g Dany Carias [facility] ARCHITECT [facility] 1.2.840.114 350.1.13.10 4.2.7.2.686 [id number] [facility] 2021-08-03 00:00:00 2021-08-03 00:00:00 Telephone Dany Carias [facility] ARCHITECT [facility] 1.2.840.114 350.1.13.10 4.2.7.2.686 [id number] [facility] 2021-08-03 00:00:00 2021-08-03 00:00:00 Patient Secure Dany Anton [facility] ARCHITECT [facility] CHILD [facility] 1.2.840.114 350.1.13.10 4.2.7.2.686 [id number] [facility] 2021-08-03 00:00:00 2021-08-03 00:00:00 Patient Secure Dany Anton [facility] [employer] ARCHITECT [facility] 1.2.840.114 350.1.13.10 4.2.7.2.686 [id number] [facility] 2021-07-31 11:30:00 2021-07-31 11:30:00 Outpatient R JARED COLLADO [facility] [id number] [facility] 2021-07-30 15:45:00 2021-07-30 16:31:25 Outpatient R DANY CARIAS [facility] [id number] [facility] 2021-07-30 15:45:00 2021-07-30 16:31:25 Office Visit Dany Carias Jocelyn [facility] ARCHITECT [facility] 1.284.114 350.1.13.10 4.2.7.2.686 [id number] [facility] 2021-07-29 13:30:00 2021-07-29 13:30:00 Outpatient R JARED COLLADO [facility] [id number] [facility] 2021-07-29 00:00:00 2021-07-29 00:00:00 Patient Secure Msg Doctor Unassigned, Shellman [facility] 1.84.114 350.1.13.10 4.2.7.2.686 [id number] [facility] 2021-07-29 00:00:00 2021-07-29 00:00:00 Patient Secure Msg Tobias Jared [facility] 1.840.114 350.1.13.10 4.2.7.2.686 [id number] [facility] 2021-07-28 16:30:00 2021-07-28 17:03:47 Outpatient R RAMÓN HUDSON [facility] [id number] [facility] 2021-07-28 16:30:00 2021-07-28 17:03:47 Office Visit [facility] 1.84.114 350.1.13.10 4.2.7.2.686 [id number] [facility] 2021-07-28 16:45:00 2021-07-28 17:00:00 Residential Electrician Visit Pob, Adc Lab Main Yan [facility] 1.840.114 350.1.13.10 4.2.7.2.686 [id number] [facility] 2021-07-28 16:45:00 2021-07-28 16:45:00 Outpatient RAMÓN PAN [facility] [id number] [facility] 2021-07-28 00:00:00 2021-07-28 00:00:00 Telephone Shanita Simon [facility] 1.0.114 350.1.13.10 4.2.7.2.686 [id number] [facility] 2021-07-28 00:00:00 2021-07-28 00:00:00 Orders Only Doctor Unassigned, Shellman [facility] 1.0.114 350.1.13.10 4.2.7.2.686 [id number] [facility] 2021-07-25 00:00:00 2021-07-25 00:00:00 Nurse Triage Gabriella Rubioalfonsocelso Sunshine [facility] 1..114 350.1.13.10 4.2.7.2.686 [id number] [facility] 2021-07-22 14:30:00 2021-07-22 14:30:00 Outpatient JARED DOUGLAS [facility] [id number] [facility] 2021-07-21 00:00:00 2021-07-21 00:00:00 Telephone Tobias Jared [facility] 1..114 350.1.13.10 4.2.7.2.686 [id number] [facility] 2021-07-21 00:00:00 2021-07-21 00:00:00 Patient Secure [facility] 1.0.114 350.1.13.10 4.2.7.2.686 [id number] [facility] 2021-07-20 16:13:00 2021-07-20 17:36:00 Emergency X Manuel STANFORD [facility] ERT [id number] [facility] 2021-07-20 16:13:00 2021-07-20 17:36:00 Emergency Manuel Stanford [facility] 1.84114 350.1.13.10 4.2.7.2.686 [id number] [facility] 2021-07-20 15:45:00 2021-07-20 16:00:00 Residential Electrician Visit Lab, Shanon Tariq Brittany [facility] MED[facility] OFF[facility] BUILDING 1.84.114 350.1.13.10 4.2.7.2.686 [id number] [facility] 2021-07-20 15:20:00 2021-07-20 15:44:36 Outpatient R TEOFILO DUDLEYTANY [facility] [id number] [facility] 2021-07-20 15:20:00 2021-07-20 15:44:36 Urgent Care Oumar Dudley Amanda [facility] 1.840.114 350.1.13.10 4.2.7.2.686 [id number] [facility] 2021-07-17 00:00:00 2021-07-17 00:00:00 Patient Secure Msg July Pitt [facility] MED[facility] OFF[facility] BUILDING 1.84.114 350.1.13.10 4.2.7.2.686 [id number] [facility] 2021-07-17 00:00:00 2021-07-17 00:00:00 Patient Secure Msg Jared Collado [facility] 1.2840.114 350.1.13.10 4.2.7.2.686 [id number] [facility] 2021-07-16 14:15:00 2021-07-16 14:41:18 Residential Electrician Visit Lab[facility] 1.840.114 350.1.13.10 4.2.7.2.686 [id number] [facility] 2021-07-16 14:15:00 2021-07-16 14:30:00 Residential Electrician Visit Lab, Drake Collado [facility] EMILIANO?[facility] BUILD[facility] 1.840.114 350.1.13.10 4.2.7.2.686 [id number] [facility] 2021-07-16 14:15:00 2021-07-16 14:15:00 Outpatient R JARED COLLADO [facility] [id number] [facility] 2021-07-15 15:30:00 2021-07-15 15:45:00 Residential Electrician Visit Lab, Drake Collado [facility] EMILIANO?[facility] BUILDING [id number] 350.1.13.10 4.2.7.2.686 [id number] [facility] 2021-07-15 14:00:00 2021-07-15 15:22:50 Outpatient R JARED COLLADO [facility] [id number] [facility] 2021-07-15 14:00:00 2021-07-15 15:22:50 Office Visit Jared Collado [facility] EMILIANO?[facility] BUILD[facility] 1.2840.114 350.1.13.10 4.2.7.2.686 [id number] [facility] 2021-07-15 14:00:00 2021-07-15 15:22:50 Outpatient R ELDAJARED Lemus [facility] [id number] [facility] 2021-07-15 14:00:00 2021-07-15 15:22:50 Outpatient R ELDAJARED Lemus [facility] [id number] [facility] 2021-07-13 08:30:00 2021-07-13 08:30:00 Outpatient R DANY CARIAS [facility] [id number] [facility] 2021-07-13 08:30:00 2021-07-13 08:30:00 Outpatient R DANY CARIAS [facility] [id number] [facility] 2021-07-11 14:20:00 2021-07-11 15:10:05 [facility] [id number] [facility] 2021-07-11 14:20:00 2021-07-11 15:10:05 Urgent Care Maria Isabel Marshall [facility] 1.840.114 350.1.13.10 4.2.7.2.686 [id number] [facility] 2021-07-06 00:00:00 2021-07-06 00:00:00 Patient Secure Msg Doctor Unassigned, Shellman [facility] 1..840.114 350.1.13.10 4.2.7.2.686 [id number] [facility] 2021-06-30 14:30:00 2021-06-30 15:41:19 Outpatient R ANALISA SUAREZ [facility] [id number] [facility] 2021-06-30 14:30:00 2021-06-30 15:41:19 Office Visit Analisa Suarez [facility] ARCH[facility]NAL [facility] 1..840.114 350.1.13.10 4.2.7.2.686 [id number] [facility] 2021-06-30 00:00:00 2021-06-30 00:00:00 Letter (Out) Analisa Suarez [facility] MATERNAL & CHILD [facility] 1.2.840.114 350.1.13.10 4.2.7.2.686 [id number] [facility] 2021-06-26 15:45:00 2021-06-26 16:00:00 Residential Electrician Visit Lab, Drake - Damon RayBertha villaseñorFormerly [facility], [facility] MEDICAL OFFICE BUILDING 1..840.114 350.1.13.10 4.2.7.2.686 [id number] [facility] 2021-06-26 14:30:00 2021-06-26 15:40:40 Outpatient R PHUONG TYRESESELECT MEDICAL [facility] [id number] [facility] 2021-06-26 14:30:00 2021-06-26 15:40:40 Office Visit FlorBertha villaseñorFormerly [facility], [facility] MEDICAL OFFICE BUILDING 1.2.840.114 350.1.13.10 4.2.7.2.686 [id number] [facility] 2021-06-26 00:00:00 2021-06-26 00:00:00 Dany Osman [facility] SO[facility] MATERNAL & CHILD [facility] 1.2.840.114 350.1.13.10 4.2.7.2.686 [id number] [facility] 2021-06-25 14:30:00 2021-06-25 14:30:00 Outpatient DANY THOMPSON [facility] [id number] [facility] 2021-06-25 14:30:00 2021-06-25 14:30:00 Outpatient DANY THOMPSON [facility] [id number] [facility] 2021-06-22 15:30:00 2021-06-22 15:30:00 Outpatient R JARED COLLADO [facility] [id number] [facility] 2021-06-22 15:30:00 2021-06-22 15:30:00 Outpatient JARED DOUGLAS [facility] [id number] [facility] 2021-06-18 00:00:00 2021-06-18 00:00:00 Patient Secure [facility]Arleth [facility] 1.84.114 350.1.13.10 4.2.7.2.686 [id number] [facility] 2021-06-16 15:30:00 2021-06-16 15:45:00 Residential Electrician Visit Lab, Drake Baca [facility] MEDICAL OFFICE BUILDING 1..114 350.1.13.10 4.2.7.2.686 [id number] [facility] 2021-06-16 14:30:00 2021-06-16 15:22:44 Outpatient R TYRESE BACA [facility] [id number] [facility] 2021-06-16 14:30:00 2021-06-16 15:22:44 Office Visit Phuong TyreseFormerly [facility], [facility] MEDICAL OFFICE BUILDING 1..114 350.1.13.10 4.2.7.2.686 [id number] [facility] 2021-06-12 13:45:00 2021-06-12 14:00:00 Office Visit Analisa Suarez [facility] 1..114 350.1.13.10 4.2.7.2.686 [id number] [facility] 2021-06-12 13:45:00 2021-06-12 13:45:00 Outpatient R GARRISONJILLBHARATANALISA [facility] [id number] [facility] 2021-06-12 13:45:00 2021-06-12 13:45:00 Outpatient R GARRISONJILL ANALISA [facility] [id number] [facility] 2021-06-12 00:00:00 2021-06-12 00:00:00 Patient Secure Msg Analisa Suarez Shruthi [facility] SOA INTEGRATION ARCHITECT [facility] & CHILD [facility] 1.2.840.114 350.1.13.10 4.2.7.2.686 [id number] [facility] 2021-06-11 00:00:00 2021-06-11 00:00:00 Telephone Analisa Suarez [facility] SOA INTEGRATION ARCHITECT [facility] CHILD [facility] 1.2.840.114 350.1.13.10 4.2.7.2.686 [id number] [facility] 2021-06-10 13:30:00 2021-06-10 14:41:56 Office Visit Analisa Suarez Shruthi [facility] INTEGRATION ARCHITECT [facility] 1.2.840.114 350.1.13.10 4.2.7.2.686 [id number] [facility] 2021-06-10 13:30:00 2021-06-10 14:41:56 Outpatient R ADILIALEIGHANALISA MELCHOR [facility] [id number] [facility] 2021-06-10 13:30:00 2021-06-10 13:30:00 Outpatient R ANALISA SUAREZ [facility] [id number] [facility] 2021-06-08 15:30:00 2021-06-08 15:30:00 Outpatient R TYRESE BACA [facility] [id number] [facility] 2021-06-08 15:30:00 2021-06-08 15:30:00 Outpatient R TYRESE BACA [facility] [id number] [facility] 2021-06-02 14:30:00 2021-06-02 15:12:53 Outpatient R TYRESE BACA [facility] [id number] [facility] 2021-06-02 14:30:00 2021-06-02 15:12:53 Office Visit Tyrese [facility] BU[facility] 1..840.114 350.1.13.10 4.2.7.2.686 [id number] [facility] 2021-06-02 14:30:00 2021-06-02 15:12:53 Outpatient R TYRESE BACA [facility] [id number] [facility] 2021-06-02 14:30:00 2021-06-02 14:30:00 Outpatient R TYRESE BACA [facility] [id number] [facility] 2021-05-29 14:00:00 2021-05-29 14:30:00 Office Visit Jared Collado [facility] 1..840.114 350.1.13.10 4.2.7.2.686 [id number] [facility] 2021-05-29 14:00:00 2021-05-29 14:00:00 Outpatient R JARED COLLADO [facility] [id number] [facility] 2021-05-29 09:30:00 2021-05-29 09:30:00 Outpatient R TYRESE BACA [facility] [id number] [facility] 2021-05-28 00:00:00 2021-05-28 00:00:00 Telephone EldaJared lemus [facility] 1..840.114 350.1.13.10 4.2.7.2.686 [id number] [facility] 2021-05-27 09:15:00 2021-05-27 09:30:00 Residential Electrician Visit Lab, Drake SchroederJared lemus [facility] THALIA [place]?[facility] OFF[facility] BU[facility] 1.840.114 350.1.13.10 4.2.7.2.686 [id number] [facility] 2021-05-27 09:15:00 2021-05-27 09:15:00 Outpatient R JARED COLLADO [facility] [id number] [facility] 2021-05-27 08:30:00 2021-05-27 09:00:00 Office Visit EldaJared lemus [facility] 1.840.114 350.1.13.10 4.2.7.2.686 [id number] [facility] 2021-05-27 08:30:00 2021-05-27 08:30:00 Outpatient R JARED COLLADO [facility] [id number] [facility] 2021-05-27 00:00:00 2021-05-27 00:00:00 Letter (Out) EldaJared lemus [facility] 1.840.114 350.1.13.10 4.2.7.2.686 [id number] [facility] 2021-05-27 00:00:00 2021-05-27 00:00:00 Telephone EldaJared lemus [facility] 1.840.114 350.1.13.10 4.2.7.2.686 [id number] [facility] 2021-05-27 00:00:00 2021-05-27 00:00:00 Telephone TobiasJared [facility] 1.2.840.114 350.1.13.10 4.2.7.2.686 [id number] [facility] 2021-05-23 01:00:00 2021-05-23 06:13:00 Emergency X GABRIELLE MARTÍNEZ [facility] ERT [id number] [facility] 2021-05-23 01:00:00 2021-05-23 06:13:00 Emergency Gabrielle Martínez R [facility] 1.840.114 350.1.13.10 4.2.7.2.686 [id number] [facility] 2021-05-23 01:00:00 2021-05-23 06:13:00 Emergency X GABRIELLE MARTÍNEZ [facility] ERT [id number] [facility] 2021-05-22 16:00:00 2021-05-22 16:00:00 Outpatient R PAMELA PRESLEY [facility] [id number] [facility] 2021-05-22 14:20:00 2021-05-22 15:02:37 [facility] [id number] 2021-05-22 14:20:00 2021-05-22 15:02:37 Urgent Care Pamela Presley [facility] 1.840.114 350.1.13.10 4.2.7.2.686 [id number] [facility] 2021-05-15 00:00:00 2021-05-15 00:00:00 Orders Only Doctor Unassigned, Shellman [facility] 1.840.114 350.1.13.10 4.2.7.2.686 [id number] [facility] 2021-05-04 15:30:00 2021-05-04 15:30:00 Outpatient R GERTRUDE MILLAN [facility] [id number] [facility] 2021-05-04 15:30:00 2021-05-04 15:30:00 Outpatient GERTRUDE CAMPOVERDE [facility] [id number] [facility] 2021-05-01 13:00:00 2021-05-01 13:00:00 Outpatient R SANDRA JOSEJUAN CENEDINA [facility] [id number] [facility] 2021-05-01 13:00:00 2021-05-01 13:00:00 [facility] [id number] [facility] 2021-04-30 16:30:00 2021-04-30 17:15:50 Outpatient TYRESE TURNER [facility] [id number] [facility] 2021-04-30 16:30:00 2021-04-30 17:15:50 Office Visit Tyrese Baca [facility] MEDICAL OFFICE BUILDING 1.2.840.114 350.1.13.10 4.2.7.2.686 [id number] [facility] 2021-04-29 18:59:00 2021-04-29 20:20:00 Emergency X JAG MAGANA [facility] ERT [id number] [facility] 2021-04-29 18:59:00 2021-04-29 20:20:00 Emergency Jag Magana [facility] 2.840.114 350.1.13.10 4.2.7.2.686 [id number] [facility] 2021-04-29 18:59:00 2021-04-29 20:20:00 Emergency X JAG MAGANA [facility] ERT [id number] [facility] 2021-04-03 13:30:00 2021-04-03 13:30:00 Outpatient MINOO BURRELL [facility] [id number] [facility] 2021-03-27 02:58:00 2021-03-27 04:43:00 Emergency X JOB KASPER [facility] ERT [id number] [facility] 2021-03-27 02:58:00 2021-03-27 04:43:00 Emergency Job Kasper [facility] 1.2840.114 350.1.13.10 4.2.7.2.686 [id number] [facility] 2021-03-27 00:00:00 2021-03-27 00:00:00 Orders Only Doctor Unassigned, Shellman [facility] 1..114 350.1.13.10 4.2.7.2.686 [id number] [facility] 2020-11-25 13:14:00 2020-11-27 12:30:00 Inpatient X MARIA ESTHERJIMENA [facility] KYLE [id number] [facility] 2020-11-25 20:45:00 2020-11-26 00:47:00 Anesthesia Event Carine Smith [facility] 1.84.114 350.1.13.10 4.2.7.2.686 [id number] [facility] 2020-11-24 00:00:00 2020-11-24 00:00:00 Dany Beth [facility] SOA INTEGRATION ARCHITECT [facility] & CHILD [facility] 1..114 350.1.13.10 4.2.7.2.686 [id number] [facility] 2020-11-20 10:15:00 2020-11-20 10:15:00 Outpatient NORA MELENDEZ [facility] [id number] [facility] 2020-11-18 00:00:00 2020-11-18 00:00:00 Patient Secure Msg Doctor Unassigned, Shellman [facility] SOA INTEGRATION ARCHITECT [facility] & CHILD [facility] 1.84.114 350.1.13.10 4.2.7.2.686 [id number] [facility] 2020-11-17 00:00:00 2020-11-17 00:00:00 Telephone Nora Sanchez [facility] SOA INTEGRATION ARCHITECT [facility] & CHILD [facility] 1..840.114 350.1.13.10 4.2.7.2.686 [id number] [facility] 2020-11-10 10:30:00 2020-11-10 10:30:00 Outpatient NORA MELENDEZ [facility] [id number] [facility] 2020-10-30 12:45:00 2020-10-30 12:45:00 Outpatient NORA MELENDEZ [facility] [id number] [facility] 2020-10-16 14:23:36 2020-10-16 15:09:33 Routine Visit Nora Sanchez [facility] SOA INTEGRATION ARCHITECT [facility] & CHILD [facility] 1.2.840.114 350.1.13.10 4.2.7.2.686 [id number] [facility] 2020-10-16 13:00:00 2020-10-16 13:00:00 Outpatient NORA MELENDEZ [facility] [id number] [facility] 2020-10-16 00:00:00 2020-10-16 00:00:00 Orders Only Doctor Unassigned, Shellman [facility] 1..840.114 350.1.13.10 4.2.7.2.686 [id number] [facility] 2020-10-15 09:45:00 2020-10-15 09:45:00 Outpatient DANY THOMPSON [facility] [id number] [facility] 2020-10-07 08:00:00 2020-10-07 08:00:00 Outpatient NORA MELENDEZ [facility] [id number] [facility] 2020-09-30 18:00:00 2020-09-30 18:00:00 Outpatient DANY THOMPSON [facility] [id number] [facility] 2020-09-30 11:45:00 2020-09-30 11:45:00 Outpatient DANY THOMPSON [facility] [id number] [facility] 2020-09-29 16:45:00 2020-09-29 16:45:00 [id number] 2020-09-18 00:00:00 2020-09-18 00:00:00 Patient Secure Msg Dany Carias [facility] SO[facility] INTEGRATION ARCHITECT [facility] MATERNAL & CHILD [facility] 1.0.114 350.1.13.10 4.2.7.2.686 [id number] [facility] 2020-09-15 13:58:57 2020-09-15 15:37:45 Routine Visit Dany Carias [facility] SO[facility] MATERNAL & CHILD [facility] 1.0.114 350.1.13.10 4.2.7.2.686 [id number] [facility] 2020-09-15 13:15:00 2020-09-15 13:15:00 Outpatient DANY THOMPSON [facility] [id number] [facility] 2020-09-12 00:00:00 2020-09-12 00:00:00 Nurse Triage Leidy Duran [facility] 1.0.114 350.1.13.10 4.2.7.2.686 [id number] [facility] 2020-08-29 00:00:00 2020-08-29 00:00:00 Telephone Nurse, [facility] 1.840.114 350.1.13.10 4.2.7.2.686 [id number] [facility] 2020-08-28 15:21:38 2020-08-28 23:59:00 Hospital Encounter Vipul [facility] 1.2.840.114 350.1.13.10 4.2.7.2.686 [id number] 2020-08-28 15:21:38 2020-08-28 23:59:00 Hospital Encounter Vipul Paris [facility] 1.2.840.114 350.1.13.10 4.2.7.2.686 [id number] [facility] 2020-08-28 14:13:24 2020-08-28 15:23:42 Urgent Care Vipul Paris [facility] 1.2.840.114 350.1.13.10 4.2.7.2.686 [id number] 2020-08-28 14:13:24 2020-08-28 15:23:42 Urgent Care [place] [facility] 1.2.840.114 350.1.13.10 4.2.7.2.686 [id number] [facility] 2020-08-28 14:20:00 2020-08-28 14:20:00 Outpatient R TOBY RICHARDS [facility] [id number] [facility] 2020-08-27 10:01:23 2020-08-27 11:16:37 Routine Visit Dany Carias [facility] MATERNAL & CHILD [facility] 1.2.840.114 350.1.13.10 4.2.7.2.686 [id number] 2020-08-27 10:01:23 2020-08-27 11:16:37 Routine Visit Dany Carias [facility] SO[facility]TE[facility]ATION ARCH[facility] MATERNAL & CHILD [facility] 1.2.840.114 350.1.13.10 4.2.7.2.686 [id number] [facility] 2020-08-27 09:00:00 2020-08-27 09:00:00 Outpatient R DANY CARIAS [facility] [id number] [facility] 2020-08-27 00:00:00 2020-08-27 00:00:00 Orders Only Doctor Unassigned, Shellman [facility] 1.2.840.114 350.1.13.10 4.2.7.2.686 [id number] 2020-08-27 00:00:00 2020-08-27 00:00:00 Orders Only Doctor Unassigned, Shellman [facility] 1.2.840.114 350.1.13.10 4.2.7.2.686 [id number] [facility] 2020-08-19 14:50:51 2020-08-19 15:35:51 Residential Electrician Visit 1, [facility] [place] Maci cailin [facility] 1.2.840.114 350.1.13.10 4.2.7.2.686 [id number] [facility] 2020-08-19 14:50:51 2020-08-19 15:35:51 Residential Electrician Visit 1, [facility] 1.2.840.114 350.1.13.10 4.2.7.2.686 [id number] 2020-08-19 14:15:00 2020-08-19 14:15:00 Outpatient P [facility] [id number] [facility] 2020-08-11 08:45:00 2020-08-11 08:45:00 Outpatient P [facility] [id number] [facility] 2020-08-06 00:00:00 2020-08-06 00:00:00 Nurse Triage [facility] 1.2.840.114 350.1.13.10 4.2.7.2.686 [id number] [facility] 2020-08-06 00:00:00 2020-08-06 00:00:00 Telephone CariasFelicitas calderahector Banks [facility] SOA INTEGRATION ARCHITECT [facility] CHILD [facility] 1.2.840.114 350.1.13.10 4.2.7.2.686 [id number] [facility] 2020-08-06 00:00:00 2020-08-06 00:00:00 Nurse Triage [facility] 1.2.840.114 350.1.13.10 4.2.7.2.686 [id number] 2020-07-30 10:22:14 2020-07-30 10:37:14 Routine Visit Carias, Rosmarybeth Banks [facility] SOA INTEGRATION ARCHITECT [facility] 1.20.114 350.1.13.10 4.2.7.2.686 [id number] [facility] 2020-07-30 10:15:00 2020-07-30 10:15:00 Outpatient Jocelyn MCNAMARAGilmer DANY [facility] [id number] [facility] 2020-07-21 13:45:00 2020-07-21 13:45:00 Outpatient Jocelyn MCNAMARAEDANY [facility] [id number] [facility] 2020-07-17 09:00:00 2020-07-17 09:00:00 Outpatient Jocelyn MCNAMARAGilmer DANY [facility] [id number] [facility] 2020-07-14 09:45:41 2020-07-14 11:00:41 Residential Electrician Visit Ultrasound, Jordan Valencia [facility] SOA INTEGRATION ARCHITECT [facility] CHILD [facility] 1.2.840.114 350.1.13.10 4.2.7.2.686 [id number] [facility] 2020-07-14 10:00:00 2020-07-14 10:00:00 Outpatient P [facility] [id number] [facility] 2020-07-14 00:00:00 2020-07-14 00:00:00 Case Management Nora Sanchez [facility] SO[facility]TE[facility]ATION ARCHITECT [facility] MATERNAL & CHILD [facility] 1.2.840.114 350.1.13.10 4.2.7.2.686 [id number] [facility] 2020-07-01 13:52:00 2020-07-01 14:58:28 Routine Visit Dany Carias [facility] SOA INTEGRATION ARCHITECT [facility]ILD [facility] 1.2.840.114 350.1.13.10 4.2.7.2.686 [id number] [facility] 2020-07-01 13:45:00 2020-07-01 13:45:00 Outpatient R DANY CARIAS [facility] [id number] [facility] 2020-07-01 00:00:00 2020-07-01 00:00:00 Telephone Dany Carias [facility] INTEGRATION ARCHITECT [facility]ILD [facility] 1.2.840.114 350.1.13.10 4.2.7.2.686 [id number] [facility] 2020-06-17 08:48:55 2020-06-17 09:25:15 Routine Visit Dany Carias [facility] [facility] 1.2840.114 350.1.13.10 4.2.7.2.686 [id number] [facility] 2020-06-17 08:45:00 2020-06-17 08:45:00 Outpatient R DANY CARIAS [facility] [id number] [facility] 2020-06-10 15:45:00 2020-06-10 15:45:00 Outpatient DANY THOMPSON [facility] [id number] [facility] 2020-06-03 20:19:00 2020-06-03 22:12:00 Emergency Julio Da Silva [facility] 1.2840.114 350.1.13.10 4.2.7.2.686 [id number] [facility] 2020-05-13 09:59:20 2020-05-13 10:14:20 Routine Visit Niall Cariasmariah Banks [facility] 1.840.114 350.1.13.10 4.2.7.2.686 [id number] [facility] 2020-05-13 10:00:00 2020-05-13 10:00:00 Outpatient R FELICITAS CARIASHECTOR [facility] [id number] [facility] 2020-05-06 11:00:00 2020-05-06 11:00:00 Outpatient LILIANA THOMPSONMARYBETH [facility] [id number] [facility] 2020-04-29 10:45:00 2020-04-29 10:45:00 Outpatient R FELICITAS CARIASRIMariah [facility] [id number] [facility] 2020-04-29 00:00:00 2020-04-29 00:00:00 Telephone Niall Cariasmariah [facility] [facility] 1.2840.114 350.1.13.10 4.2.7.2.686 [id number] [facility] 2020-04-22 00:00:00 2020-04-22 00:00:00 Nurse Triage Lynn Garcia [facility] 1.840.114 350.1.13.10 4.2.7.2.686 [id number] [facility] 2020-04-09 00:00:00 2020-04-09 00:00:00 Case Management Dany Carias [facility] [employer] [facility] [id number] 350.1.13.10 4.2.7.2.686 [id number] [facility] 2020-04-08 11:32:55 2020-04-08 12:14:18 Residential Electrician Visit Ultrasound, Tracey Trammell [facility] MATERNAL & CHILD [facility] [id number] 350.1.13.10 4.2.7.2.686 [id number] [facility] [facility] 2020[facility]04-08 11:30:00 2020-04-08 11:30:00 Outpatient P [facility] [id number] [facility] 2020-04-08 00:00:00 2020-04-08 00:00:00 Abstract Dany Carias [facility] SOA INTEGRATION ARCHITECT [facility] CHILD [facility] 1.2840.114 350.1.13.10 4.2.7.2.686 [id number] [facility] 2020-04-02 23:15:00 2020-04-03 01:12:[address] [facility] ([facility]) 1.2840.114 350.1.13.10 4.2.7.2.686 [id number] [facility] 2020-04-02 00:00:00 2020-04-02 00:00:00 Telephone Dany Carias [facility] SOA INTEGRATION ARCHITECT [facility] & CHILD [facility] 1.2.840.114 350.1.13.10 4.2.7.2.686 [id number] [facility] 2020-04-02 00:00:00 2020-04-02 00:00:00 Telephone Dany Carias [facility] SOA INTEGRATION ARCHITECT [facility] 1.20.114 350.1.13.10 4.2.7.2.686 [id number] [facility] 2020-04-01 09:25:04 2020-04-01 11:05:29 Initial Visit Dany Carias [facility] SOA INTEGRATION ARCHITECT [facility]ILD [facility] 1.20.114 350.1.13.10 4.2.7.2.686 [id number] [facility] 2020-04-01 08:30:00 2020-04-01 08:30:00 Outpatient R [facility] [id number] [facility] 2020-04-01 00:00:00 2020-04-01 00:00:00 Orders Only Doctor Unassigned, Shellman [facility] 1..114 350.1.13.10 4.2.7.2.686 [id number] [facility] 2019-12-18 09:30:00 2019-12-18 09:30:00 Outpatient R [facility] [id number] [facility] 2019-10-01 00:00:00 2019-10-01 00:00:00 Patient Secure Msg Doctor Unassigned, [place]man [facility] 1.84.114 350.1.13.10 4.2.7.2.686 [id number] [facility] 2019-09-26 00:00:00 2019-09-26 00:00:00 Patient Secure Msg [facility] 1.84.114 350.1.13.10 4.2.7.2.686 [id number] [facility] 2019-09-21 11:10:44 2019-09-21 23:59:00 Hospital Encounter Minoo Flores [facility] 1.2.840.114 350.1.13.10 4.2.7.2.686 [id number] [facility] 2019-09-21 11:00:00 2019-09-21 11:09:00 Hospital Encounter Minoo Flores [facility] 1.2.840.114 350.1.13.10 4.2.7.2.686 [id number] [facility] 2019-09-21 09:56:26 2019-09-21 10:59:00 Hospital Encounter Minoo Flores [facility] 1.2.840.114 350.1.13.10 4.2.7.2.686 [id number] [facility] 2019-09-21 00:00:00 2019-09-21 00:00:00 Outpatient R MINOO FLORES [facility] [id number] [facility] 2019-09-21 00:00:00 2019-09-21 00:00:00 Patient Secure Msg Minoo Flores [facility] 1.2.840.114 350.1.13.10 4.2.7.2.686 [id number] [facility] 2019-09-21 00:00:00 2019-09-21 00:00:00 Case Management [facility] 1.2.840.114 350.1.13.10 4.2.7.2.686 [id number] [facility] 2019-09-21 00:00:00 2019-09-21 00:00:00 Patient Secure Msg [facility] 1.2.840.114 350.1.13.10 4.2.7.2.686 [id number] [facility] 2019-09-20 10:01:43 2019-09-20 10:16:43 Laboratory Only Only, Adc Test Kevan Beaulieu [facility] 1.20.114 350.1.13.10 4.2.7.2.686 [id number] [facility] 2019-09-20 09:55:41 2019-09-20 10:10:41 Residential Electrician Visit Pob, Adc Lab Main Minoo Flores [facility] Building 1.20.114 350.1.13.10 4.2.7.2.686 [id number] [facility] 2019-09-20 00:00:00 2019-09-20 00:00:00 Outpatient R SANDRAJOSE MARTINEZMELINA [facility] [id number] [facility] 2019-09-20 00:00:00 2019-09-20 00:00:00 Orders Only Doctor Unassigned, [place]man [facility] 1.0.114 350.1.13.10 4.2.7.2.686 [id number] [facility] 2019-09-19 13:45:12 2019-09-19 15:57:17 Telemedici ne Visit Jose Floresmelina Mariah [facility] Building 1..114 350.1.13.10 4.2.7.2.686 [id number] [facility] 2019-09-19 09:45:00 2019-09-19 09:45:00 Outpatient R SANDRAJOSE MARTINEZMELINA [facility] [id number] [facility] 2019-09-19 00:00:00 2019-09-19 00:00:00 Telephone WhittierMinoo martinez [facility] Office Building One 1.20.114 350.1.13.10 4.2.7.2.686 [id number] [facility] 2019-09-14 12:46:19 2019-09-14 13:54:37 Urgent Care Pob1, Acute Care Clinic Phuong [facility] Office Building One 1.20.114 350.1.13.10 4.2.7.2.686 [id number] [facility] 2019-09-14 13:00:00 2019-09-14 13:00:00 [id number] 2019-08-28 11:00:00 2019-08-28 11:00:00 Outpatient R MELODY GAO [facility] [id number] [facility] 2019-08-22 08:59:00 2019-08-24 07:24:30 Inpatient HCACL MALACH[facility] [id number] 2019-08-23 15:07:25 2019-08-23 16:34:23 Urgent Care Provider, [facility] Office Building One 1.114 350.1.13.10 4.2.7.2.686 [id number] [facility] 2019-08-23 15:40:00 2019-08-23 15:40:00 Outpatient R [facility] [id number] [facility] 2019-08-22 14:16:15 2019-08-22 16:10:00 Emergency Kvng Chandra R [facility] ([facility]) 1.20.114 350.1.13.10 4.2.7.2.686 [id number] [facility] 2019-08-22 13:26:07 2019-08-22 13:41:07 Nurse Visit Nurse, [facility] Unknown, Attending [facility] 1.2840.114 350.1.13.10 4.2.7.2.686 [id number] [facility] 2019-08-22 13:30:00 2019-08-22 13:30:00 Outpatient R UNKNOWN, ATTENDING [facility] [id number] [facility] 2019-08-22 00:00:00 2019-08-22 00:00:00 Telephone Simba Rivera [facility] 1.2.840.114 350.1.13.10 4.2.7.2.686 [id number] [facility] 2019-08-21 00:00:00 2019-08-21 00:00:00 Patient Secure Msg Doctor Unassigned, [place]man [facility] 1.2.840.114 350.1.13.10 4.2.7.2.686 [id number] [facility] 2019-08-19 21:26:07 2019-08-19 21:27:00 Emergency Simba Rivera [facility] 1.2.840.114 350.1.13.10 4.2.7.2.686 [id number] [facility] 2019-08-19 00:00:00 2019-08-19 00:00:00 Orders Only Doctor Unassigned, [place]man [facility] 1.2.840.114 350.1.13.10 4.2.7.2.686 [id number] [facility] Results Test Description Test Time Test Comments Results Result Co mments Source [facility] [place] [id number] 12:46:00* Test Item Value Reference Range Interpretation Comme nts POCT PREG (test code = 1605) Negative On board controls acceptable with C Line (test code = 3574) Yes POCT PREG LOT # (test code = 3575) POCT PREG TEST DATE ( test code = 3576) [facility] [place] [id number] 12:46:00* Test Item Value Reference Range Interpretation Comme nts POCT PREG (test code = 1605) Negative On board controls acceptable with C Line (test code = 3574) Yes POCT PREG LOT # (test code = 3575) POCT PREG TEST DATE ( test code = 3576) [facility] [id number] 20:37:00* Test Item Value Reference Range Interpretation Comme nts POCT PREG (test code = 1605) Negative On board controls acceptable with C Line (test code = 3574) Yes POCT PREG LOT # (test code = 3575) POCT PREG TEST DATE ( test code = 3576) [facility] [id number] 20:37:00* Test Item Value Reference Range Interpretation Comme nts POCT PREG (test code = 1605) Negative On board controls acceptable with C Line (test code = 3574) Yes POCT PREG LOT # (test code = 3575) POCT PREG TEST DATE ( test code = 3576) [facility] [id number] 20:37:00* Test Item Value Reference Range Interpretation Comme nts POCT PREG (test code = 1605) Negative On board controls acceptable with C Line (test code = 3574) Yes POCT PREG LOT # (test code = 3575) POCT PREG TEST DATE ( test code = 3576) [facility] URINALYSIS W/O SPECIFIC [id number] 20:36:00* Test Item Value Reference Range Interpretation [...] = 3257) trace Negative - Negati ve [facility] URINALYSIS W/O SPECIFIC [id number] 20:36:00* Test Item Value Reference Range Interpretation [...] = 3257) trace Negative - Negati ve [facility] [place], [place] URINALYSIS W/O SPECIFIC [id number] 20:36:00* Test Item Value Reference Range Interpretation [...] = 3257) trace Negative - Negati ve [facility] [place], TXSARS-CoV-2 (COVID-19), RT-PCR/[id number] 15:19:39* Test Item Value Reference Range Interpretation Comments SARS-CoV-2 INTERPRETATION (test code = 89176) NEGATIVE SEE NOTE SARS-CoV-2 R NA NOT [...] prevalence is high. SOURCE (test code = 69920) NASOPHARYNGEAL Note: Methodolog y is Dannie Stefani Real-Time RT-PCR. The expected result or reference range is NEGATIVE (Not Detected). For more information regarding COVID-19 testing to include clinicalinformation, methodology detail, intended use, FDA authorization andrecommended fact sheets for patients or healthcare providers, see auctionPAL Announcement: SARS-CoV-2 (COVID-19) by NAAT at URL below (note,fact sheets are provided by method given in report:https://www.Risk I/O.com/clinicians/cl ient-communications/ Alternatively, see downloadable PDF fact sheet at:https://www.[employer]/UEZVH-89-SI-PCR UNLESS OTHERWISE INDICATED, ALL TESTING PERFORMED [facility] [employer] [address] [place] [address] EXHAUST AND MUFFLER FITTER: OCTAVIANO GUZMAN M.D. CLIA NUMBER [id number] [place]. [id number] COMPREHENSIVE METABOLIC [id number] 10:12:00* Test Item Value Reference Range Interpretation [...] code = ALKP) 65 IUnit/L 20-125 N [id number] 10:12:00* Test Item Value Reference Range Interpretation Comme nts TROPONIN-I (test code = TROPI) < 0.015 ng/mL 0.000-0.045 N Negative: <= 0.0 45 Positive: >= 0.046 Correlation with serial results, other cardiac markers andclinical findings is necessary to determine the clinicalsignificance of this result. Results using different methodologies should not be comparedto one another as quantitative results may vary by method. COMPREHENSIVE METABOLIC [id number] 10:11:00* Test Item Value Reference Range Interpretation [...] ( test code = ALKP) IUnit/L 20-125 [id number] 10:11:00* Test Item Value Reference Range Interpretation Comme nts TROPONIN-I (test code = TROPI) < 0.015 ng/mL 0.000-0.045 N Negative: <= 0.0 45 Positive: >= 0.046 Correlation with serial results, other cardiac markers andclinical findings is necessary to determine the clinicalsignificance of this result. Results using different methodologies should not be comparedto one another as quantitative results may vary by method. PROTHROMBIN [id number] 09:59:00* Test Item Value Reference Range Interpretation [...] Acute Myocardial Infarction (to prevent recurrent infarct). [id number] 09:59:00* Test Item Value Reference Range Interpretation Comme nts D-DIMER (test code = DDIMER) 224 ng/mlFEU <=500 N THROMBOSIS AND/O R PULMONARY EMBOLISM AND THE CLINICAL CUT- OFF VALUE FOR EXCLUSION (500 ng/mL FEU) OF THESE CONDITIONSIS VALIDATED BY THE FRANCHISE MANAGER OF THE METHOD. A NEGATIVE D-DIMER RESULT WHEN COMBINED WITH A CLINICALASSESSMENT OF LOW PRETEST PROBABILITY HAS BEEN SHOWN TO HAVEA HIGH NEGATIVE PREDICTIVE VALUE OF DVT OR PE. D-DIMER VALUES >500 ng/mL FEU ARE NOT DIAGNOSTIC FOR DVT, PEor DIC WITHOUT OTHER CONFIRMATORY TESTS AND APPROPRIATECLINICAL EUALUATIONS. CBC W/AUTO [id number] 09:56:00* Test Item Value Reference Range Interpretation [...] N MANUAL DIFF REQUIRED (test code = IFF) NO - XR CHEST 1 [id number] 09:56:00FAX: Dallas Cain MD [phone] [place]: St: PRE Name: RAGHAVENDRA QUINN [facility] Michael Hough : 1985 Age/S: 34/F [address] [place] [address] Unit #: [id number] Loc: [place] [address] Phys: Dallas Cain MD Acct:[id number] Dis Date: Status: PRE ER PHONE #: [phone] Exam Date: 08/22/2019 100 FAX #: [phone] Reason: Chest Pain EXAMS: CPT CODE: [id number] XR CHEST 1 V 99651 PROCEDURE: CHEST SINGLE VIEW INDICATION: Chest Pain COMPARISON: There are no previous relevant studies available for correlation. FINDINGS: The lungs are clear. No pleural abnormality. The cardiomediastinal silhouette is normal for projection. The bony thorax is intact. IMPRESSION: Normal radiograph. SL: [id number] Elec tronically Signed by Jesse Sousa on 08/22/2019 at 0956 Reported and signed by: Samson Sousa M.D. CC: Dallas Cain MD Technologist: RT Maddi(Jocelyn) Trnscrd Date/Time/By: 08/22/2019 (0956) : By: AryKWL Orig Print D/T: S: 08/22/2019 (1002) PAGE 1 Signed Report Notes Date/Time Note Provider Source 2023-11-08 18:16:14 See lab result note when available- likely by tomorrow, during which this will be addressed. T [facility] 2023-11-04 11:00:00 Images from the original note were not included. Venipuncture collection performed by clean technique on the right anticubitus. Total of 1 attempts were made. Slight pressure and a bandage/dressing were applied to the site(s). The patient experienced no complications. The following specimens were processed according to instructions and sent to [facility] laboratories per lab order on 11/04/2023 : LT BLUE SST 2 RED LAV 2 PPT DK GREEN (LiHep) DK GREEN (SodH) JEFFRIES DK BLUE (K2) DK BLUE (S) ACD Blood Culture NIPT/NTD [facility] 2022-09-01 09:11:30 Formatting of this n ote is different from the original. 09/01/22 [facility] Wellness and Outreach team contacted patient to assist in completing Health Maintenance topics that are overdue. Raghavendra Quinn [id number] Attempt Number: 1st attempt Health Maintenance topics addressed: Health Maintenance Due Topic Date Due SARS-CoV-2 (COVID-19) Vaccine (1) Never done Depression Screening 09/18/2020 Call outcome: Attempted to get in contact with patient regarding missed annual visit appointment. No answer. LVM for patient to return phone call. Deja Strong MA [facility] 2019-08-22 09:39:00 [facility] ([facility]GENCY PROVIDER REPORT REPORT#:[id number] REPORT STATUS: Signed DATE:08/22/19 TIME: 938 PATIENT: RAGHAVENDRA QUINN UNIT #: [id number] ROOM/BED: AGE: 34 SEX: F PCP PHYS: SERVICE DT: AUTHOR: Dallas Cain MD * ALL edits or amendments must be made on the electronic/computer document * HPI-Chest Pain Under 40 General Confirmed Patient Yes Initial Greet Date/Time 08/22/19 0903 Presentation Chief Complaint Chest pain Hx Obtained From Patient Sudden in Onset? No Onset Occurred Yesterday Symptom Duration Since onset Progression since Onset Constant Location Chest L Quality Pressure, Tightness )( Migration/Movement None Associated with Reports: Dizziness, Nausea, Shortness of breath. Denies: Cough, non-productive, Diaphoresis, Fever, Syncope, Vomiting. Free Text HPI Notes Free Text HPI Notes 34-year-old female presents emergency department for evaluation of chest tightness that started yesterday. Tightness across her chest that radiates down her left upper extremity and she has tingling in both her hands. She also states she has aching in bilateral lower legs. She denies fever cough vomiting or diarrhea. She was tested negative for the COVID-19 virus 2 days ago. Risk-Chest Pain Under 40 Risk Stratification )( Coronary Artery Disease Risk factors reviewed )( Pulmonary Embolism Risk factors reviewed )( AMI-Aspirin Aspirin Last 24 Hrs 324 mg, On arrival )( HEART for MACE )( HEART for MACE Response Value History Low index of suspicion 0 ECG Interpretation Normal ECG 0 Age Age under 45 0 Risk Factors for CAD No risk factors known 0 Troponin < or = to NL troponin 0 Total 0 HEART Score for MACE 0-3 (low risk 0.9%-1.7%) Review of Systems ROS Statements All systems rev neg except as marked. Focused Review of Systems Constitutional Reports: Fatigue. Denies: Fever, Lethargy. Respiratory Reports: Shortness of breath. Denies: Cough, non-productive, Cough, productive. Cardiovascular Denies: Edema, Palpitations, Syncope. GI Denies: Abdominal pain, Diarrhea, Nausea, Vomiting. Musculoskeletal Reports: Extremity pain, Myalgia. Denies: Extremity swelling. Skin Denies: Diaphoresis, Erythema, Rash, Swelling. Neurologic Reports: Dizziness, Lightheaded, Tingling. Denies: Change LOC, Syncope. Additional Review of Systems Ears/Nose/Throat Denies: Nasal congestion, Nose bleeding, Sinus problem, Sore throat. Past Medical History - Adult Stated Complaint BODY ACHES, SHORTNESS OF BREATH, CP SINCE YESTERDA Allergies Coded Allergies: No Known Allergies (08/22/19) Home Medications Reported Medications No Known Home Medications Discontinued Reported Medications IBUPROFEN (ADVIL) 800 MG PO Q8H PRN PRN PAIN IBUPROFEN (ADVIL) 800 MG PO Q8H PRN PRN PAIN #30 DC: 08/22/19 0923 Therapy completed Pt reports no significant: Past medical history Past Surgical History: Reports: Appendectomy. Smoking status for patients 13 years old or older: Never Smoker Other Social History Local resident Physical Exam Vital Signs Vital Signs First Documented: Result Date Time Pulse Ox 100 [...] 918 Review of Vital Signs Reviewed Focused PE General/Const General/Const Awake, Alert, Well developed Eyes Eyes PERRL, No periorbital swelling, No scleral icterus MS Neck Neck No adenopathy, No swelling, No JVD, Thyroid NL Resp/Chest Respiratory/Chest Breath sounds NL, Breath sounds = bilat, No respiratory distress Cardiovascular Cardiovascular Regular rhythm, Heart sounds NL, Cap refill not delayed Abdomen/GI Abdomen/GI Soft, Non-tender, No distention MS Lower Extrem Lower Ext/Pelvis/MS No swelling, Non-tender Skin Skin Color NL, Warm, Dry Neurologic Neurologic Oriented X3, Speech NL, No motor deficits Additional PE Ears/Nose/Throat Ears/Nose/Throat Airway patent, Mucous membranes moist, No facial swelling Interpretation Diagnostics Lab Results Interpretation Results Laboratory Tests 08/22/19929: [Embedded Image Not Available] Laboratory Tests: 08/21 929 Chemistry Sodium (134 - [...] (Auto) (14.0 - 32.0 %) 37.2 H [place] % (Auto) (4.8 - 9.0 %) 7.7 Eos % (Auto) (0.3 - 3.7 %) 0.8 Baso % (Auto) (0.0 - 2.0 %) 0.5 Neut # (Auto) (2.0 - 7.6 x10 3/uL) 7.13 Lymph # (Auto) (1.0 - 3.8 x10 3/uL) 4.96 H [place] # (Auto) (0.1 - 0.8 x10 3/uL) [...] (0.0 - 0.1 x10 3/uL) 0.00 Recent Impressions: RADIOLOGY - XR CHEST 1 V 08/21 1003 Report Impression - Status: SIGNED Entered: 08/22/2019 1003 IMPRESSION: Normal radiograph. SL: [id number] Impression By: Krissy Sousa M.D. Point of Care Testing Pulse Oximetry Pulse Ox % 100 On: Room air Interpretation Interpreted by me, Pulse oximetry normal ECG #1 Interpretation Date 08/22/19 Time 0934 Interpreted by and reviewed by me NL ECG Interpretation Normal sinus rhythm, No STEMI, Normal QRS, Normal ST waves , Normal T waves, Normal axis, Normal intervals Rate 100 Rhythm Tachycardia Re-Evaluation MDM Re-Evaluation/Progress #1 Time of Re-Eval 1020 Re-Eval Status Unchanged Exam Post Tx - General Alert, Appears non-toxic, Vital signs stable Plan Post Re-Eval Plan discharge, Suspect viral syndrome. Will give anxiolytic trial as well. ED Course Medication(s) Ordered Medication(s) Ordered: Central Nervous System Agents Sig/Vince Start time Last [...] IV 08/22 0832 Patient Discharge Departure Vital Signs/Condition Vital Signs First Documented: Result Date Time Pulse Ox 100 08/21 09 B/P 121/77 08/21 0919 B/P Mean 91 08/21 0919 O2 Delivery Room air 08/21 918 Temp 99.1 08/21 918 Pulse 115 08/21 0919 Resp 18 08/21 0919 Last Documented: Result Date Time Pulse Ox 100 08/21 0919 B/P 121/77 08/21 0919 B/P Mean 91 08/21 0819 O2 Delivery Room air 08/21 918 Temp 99.1 08/21 918 Pulse 115 08/21 0919 Resp 18 08/21 0919 All vital signs available at the time of this entry have been reviewed. Condition Stable Clinical Impression Clinical Impression Primary Impression: Tightness in chest Disposition Decision Discharge )( Discharged to Home Yes )( Time 1030 )( Date 08/22/19 Discharge/Care Plan Counseled Regarding Lab results, Imaging studies, Prescriptions, Need for follow -up, When to return to ED Rx Drug Database Reviewed Yes Prescriptions xanax 0.5mg (Auto) Prescriptions Current Visit Scripts No Known Home Medications at 1030 RPT #:[id number] END OF REPORT [facility]
--- NOTE | 2023-11-15 21:13 | RAD REPORT ---
EXAMINATION: ONE VIEW CHEST XR CLINICAL INDICATION: Female, 38 years old.,CHEST PAIN TECHNIQUE: Frontal chest projection is submitted. Examination is limited by patient positioning and t echnique. COMPARISON: 02/05/2022 FINDINGS: The lungs are well inflated and clear. No pneumothorax or sizable effusion. The heart is normal in s ize. IMPRESSION: No acute intrathoracic abnormalities.
[2023-11-15 21:29] LABS: Absolute Basophils 0.1 K/uL (0-0.5); Absolute Eosinophils 0.2 K/uL (0-0.5); Absolute Lymphocytes (CBC) 5.2 K/uL (0.7-4.9); Absolute Monocytes 0.8 K/uL (0.1-1.3); Absolute Neutrophil 7.5 K/uL (1.8-8.0); Basophils % 0.7 % (0-1.3); Eosinophils % 1.4 % (0-4.4); Hematocrit 40.4 % (36.0-45.0); Lymphocytes % 37.8 % (15.3-44.8); MCH 25.8 pg (27.0-35.0); MCHC 32.3 g/dL (32.0-36.0); MCV 79.8 fL (80-100); Monocytes % 5.9 % (3.3-12.3); Neutrophils % 54.2 % (41.7-73.7); Platelets 351 thou/uL (152-406); RBC Red Blood Cell Count 5.06 M/uL (3.86-4.86); Red Cell Distribution Width 15.8 % (12.1-15.2)
[2023-11-15 21:47] LABS: BUN Blood Urea Nitrogen 13 mg/dL (7-18); Bicarbonate 25 mEq/L (21-32); Glomerular Filtration Rate 120 ml/min (=/>90); Glucose Level 129 mg/dL (74-106); Sodium Level 136 mEq/L (136-145)
[2023-11-15 21:51] LABS: SARS-CoV-2 Antigen CONTROL BLUE LINE VIS/BG OK; SARS-CoV-2 Antigen Rapid Res Negative (Negative)
[2023-11-15 22:00] LABS: Troponin High Sensitivity < 3.0 pg/mL (<58.9)
--- NOTE | 2023-11-15 22:06 | ER ---
Nurse's Notes [facility] Name: Goyo Solorio Age: 38 yrs Sex: Female : 1985 Arrival Date: 11/15/2023 Time: 20:34 Bed 13 Private MD: Diagnosis: Acute upper respiratory infection, unspecified Presentation: 11/14 20:59 Chief complaint: Patient states: sick about 3 weeks ago for 2 weeks, then got better, vc1 then I started feeling sick again. Yesterday I felt pressure and pain in my chest. Coronavirus screen: Client denies travel out of the [place] in the last 14 days. congestion, cough unrelated to allergies, fatigue, shortness of breath, sore throat, Client presents with at least one sign or symptom that may indicate coronavirus-19. Ebola Screen: Patient negative for fever greater than or equal to 101.5 degrees Fahrenheit, and additional compatible Ebola Virus Disease symptoms Patient denies exposure to infectious person. Patient denies travel to an Ebola-affected area in the 21 days before illness onset. No symptoms or risks identified at this time. Initial Sepsis Screen: Does the patient meet any 2 criteria? No. Patient's initial sepsis screen is negative. Does the patient have a suspected source of infection? No. Patient's initial sepsis screen is negative. Risk Assessment: Do you want to hurt yourself or someone else? Patient reports no desire to harm self or others. Onset of symptoms is unknown. Care prior to arrival: None. Activity prior to arrival: None. Mechanism of Injury: No Mechanism of Injury. Transition of care: patient was not received from another setting of care. 20:59 Method Of Arrival: Ambulatory vc1 20:59 Acuity: EUGENIO 3 vc1 Triage Assessment: 21:03 General: Appears in no apparent distress. uncomfortable, Behavior is calm, cooperative, vc1 appropriate for age. Pain: Complains of pain in chest and throat Pain does not radiate. Pain currently is 1 out of 10 on a pain scale. EENT: Reports pain when swallowing Pain is 1 out of 10 on a pain scale. Neuro: Level of Consciousness is awake, alert, obeys commands, Oriented to person, place, time, situation, Appropriate for age. Cardiovascular: Reports chest pain, shortness of breath, with cough and deep breaths. Respiratory: Reports shortness of breath at rest cough that is non-productive, pain with cough Airway is patent Respiratory effort is even, unlabored, Respiratory pattern is regular, symmetrical, the patient has mild shortness of breath. GI: Abdomen is round non-distended. : No deficits noted. No signs and/or symptoms were reported regarding the genitourinary system. Derm: Skin is intact, is healthy with good turgor, Skin is dry, Skin is normal, Skin temperature is warm. Musculoskeletal: No deficits noted. No signs and/or symptoms reported regarding the musculoskeletal system. Circulation, motion, and sensation intact. Range of motion: intact in all extremities. 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 Flu vaccine is not up to date. - Infectious Disease History:: Denies. - Social history:: Smoking status: Patient reports the use of cigarette tobacco products, denies chronic smoking, but will smoke occasionally. Screenin:47 [facility] ED Fall Risk Assessment (Adult) History of falling in the last 3 months, kj2 including since admission No falls in past 3 months (0 pts) Confusion or Disorientation No (0 pts) Intoxicated or Sedated No (0 pts) Impaired Gait No (0 pts) Mobility Assist Device Used No (0 pt) Altered Elimination No (0 pt) Score/Fall Risk Level 0 - 2 = Low Risk Maintained a safe environment, Hourly rounding (assess needs \T\ fall precautionary measures) done. Abuse screen: Denies threats or abuse. Denies injuries from another. Nutritional screening: No deficits noted. Tuberculosis screening: No symptoms or risk factors identified. Assessment: 21:28 General: Appears in no apparent distress. Behavior is calm, cooperative. Pain: kj2 Complains of pain in CHEST. Neuro: Level of Consciousness is awake, alert, obeys commands, Oriented to person, place, time, situation. Cardiovascular: Patient's skin is warm and dry. Respiratory: Airway is patent Respiratory effort is unlabored. GI: No signs and/or symptoms were reported involving the gastrointestinal system. : No signs and/or symptoms were reported regarding the genitourinary system. 22:15 Reassessment: Patient appears in no apparent distress at this time. Patient and/or kj2 family updated on plan of care and expected duration. Pain level reassessed. Patient is alert, oriented x 3, equal unlabored respirations, skin warm/dry/pink. 22:17 Pain: Pain began 1 day ago. kj2 Vital Signs: 20:59 Weight 88 kg; Height 5 ft. 1 in. ; Pain 2/10; vc1 21:05 BP 125 / 89; Pulse 100; Resp 18; Temp 98.7; Pulse Ox 98% ; vc1 21:44 BP 116 / 92; Pulse 88; Resp 18; Temp 98; Pulse Ox 95% on R/A; kj2 22:16 BP 121 / 88; Pulse 86; Resp 18; Temp 98; Pulse Ox 100% on R/A; kj2 20:59 Body Mass Index 36.66 (88.00 kg, 154.94 cm) vc1 20:59 Pain Scale: Adult vc1 ED Course: 20:40 Patient arrived in ED. im 20:42 Tess Roberto FNP-C [facility] kb 20:42 Bj Packer MD is Attending Physician. kb 21:01 XRAY Chest (1 view) In Process Unspecified. EDMS 21:01 Triage completed. vc1 21:02 Arm band placed on right wrist. vc1 21:22 Strep Sent. vc1 21:22 SARS-COV-2 Antigen Rapid Sent. vc1 21:23 Flu Sent. vc1 21:23 Basic Metabolic Panel Sent. vc1 21:23 CBC with Diff Sent. vc1 21:23 D-Dimer Sent. vc1 21:23 Troponin HS Sent. vc1 21:23 Inserted saline lock: 22 gauge in left antecubital area, using aseptic technique. Blood vc1 collected. Flushed with 10 mL NS. 21:27 Janey Carvajal, RN is Primary Nurse. kj2 21:45 Client placed on continuous cardiac and pulse oximetry monitoring. NIBP monitoring kj2 applied. classroom monitor on. Pulse ox on. 21:48 Bed in low position. Call light in reach. Provided Education on: CALL LIGHT. kj2 22:17 No provider procedures requiring assistance completed. Patient maintains SpO2 kj2 saturation greater than 95% on room air. 22:18 IV discontinued, intact, bleeding controlled, No redness/swelling at site. Pressure kj2 dressing applied. Administered Medications: No medications were administered Medication: 21:47 VIS not applicable for this client. kj2 Outcome: 22:06 Discharge ordered by . syeda 22:18 Discharged to home ambulatory, kj2 22:18 Condition: stable 22:18 Discharge instructions given to Instructed on discharge instructions, follow up and referral plans. Demonstrated understanding of instructions, follow-up care, 22:28 Patient left the ED. kj2 Signatures: Dispatcher [employer] EDMS Tess Roberto, KHUSHI LUCIANO-Maya Garcia RN RN vc1 Sharla Barrett Krystal, RN RN kj2
--- NOTE | 2023-11-15 22:06 | EDPHYS ---
Physician Documentation [facility] Name: Goyo Solorio Age: 38 yrs Sex: Female : 1985 Arrival Date: 11/15/2023 Time: 20:34 Bed 13 Private MD: ED Physician Bj Packer HPI: 11/14 21:13 This 38 yrs old Female presents to ER via Ambulatory with complaints of Cough, kb Chest Pain, Shortness Of Breath. 21:13 Pt is a 38 year old female who presents for cough, sore throat, and chest pain. States kb she has had the sore throat for over a week, was seen by PCP who tested her for strep which was negative. States she has since developed a cough and started having chest pain yesterday. States the pain went away and returned today. CP feels similar to previous anxiety but she wanted to make sure it wasn't something more. . 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 Flu vaccine is not up to date. - Infectious Disease History:: Denies. - Social history:: Smoking status: Patient reports the use of cigarette tobacco products, denies chronic smoking, but will smoke occasionally. ROS: 21:12 Constitutional: As per HPI kb Exam: 21:12 Constitutional: This is a well developed, well nourished patient who is awake, alert, kb and in no acute distress. Head/Face: Normocephalic, atraumatic. ENT: Moist Mucous membranes Cardiovascular: Regular rate Respiratory: Respirations even and unlabored. No increased work of breathing. Talking in full sentences Abdomen/GI: Soft, non-tender. No distention Skin: Warm, dry with normal turgor. Normal color. MS/ Extremity: Pulses equal, no cyanosis. Neurovascular intact. Full, normal range of motion. Neuro: Awake and alert, GCS 15, oriented to person, place, time, and situation. Moves all extremities. Normal gait. 21:22 ECG was reviewed by the Attending Physician. Vital Signs: 20:59 Weight 88 kg; Height 5 ft. 1 in. ; Pain 2/10; vc1 21:05 BP 125 / 89; Pulse 100; Resp 18; Temp 98.7; Pulse Ox 98% ; vc1 21:44 BP 116 / 92; Pulse 88; Resp 18; Temp 98; Pulse Ox 95% on R/A; kj2 22:16 BP 121 / 88; Pulse 86; Resp 18; Temp 98; Pulse Ox 100% on R/A; kj2 20:59 Body Mass Index 36.66 (88.00 kg, 154.94 cm) vc1 20:59 Pain Scale: Adult vc1 MDM: 20:42 Patient medically screened. kb 21:12 Differential Diagnosis: Influenza Upper Respiratory Infection Other anxiety, acute mi. Data reviewed: vital signs, nurses notes. 22:04 Test considered but Not performed: CT: ct chest considered but d-dimer negative. Counseling: I had a detailed discussion with the patient and/or guardian regarding the historical points, exam findings, and any diagnostic results supporting the discharge/admit diagnosis, lab results, radiology results, the need for outpatient follow up, a family practitioner, to return to the emergency department if symptoms worsen or persist or if there are any questions or concerns that arise at home. 22:05 I considered the following discharge prescriptions or medication management in the emergency department I discussed and recommended Over The Counter medications, Antibiotics: At this time antibiotics are not recommended. 11/14 20:47 Order name: Basic Metabolic Panel; Complete Time: 22:04 kb 11/14 20:47 Order name: CBC with Diff; Complete Time: 21:36 kb 11/14 20:47 Order name: D-Dimer; Complete Time: 21:36 kb 11/14 20:47 Order name: Troponin HS; Complete Time: 22:04 kb 11/14 20:47 Order name: Flu; Complete Time: 21:50 kb 11/14 20:47 Order name: SARS-COV-2 Antigen Rapid; Complete Time: 21:54 kb 11/14 20:47 Order name: Strep; Complete Time: 21:50 kb 11/14 21:53 Order name: Throat Culture EDMS 11/14 20:47 Order name: XRAY Chest (1 view); Complete Time: 21:16 kb 11/14 20:47 Order name: Cardiac monitoring; Complete Time: 21:48 kb 11/14 20:47 Order name: EKG - Nurse/Tech; Complete Time: 21:23 kb 11/14 20:47 Order name: IV Saline Lock; Complete Time: 21:23 kb 11/14 20:47 Order name: Labs collected and sent; Complete Time: 21:23 kb 11/14 20:47 Order name: O2 Per Protocol; Complete Time: :23 kb 11/14 20:47 Order name: O2 Sat Monitoring; Complete Time: 21:23 kb EC: Rate is 96 beats/min. Rhythm is regular. QRS [place] is Normal. CO interval is normal at kb 150 msec. QRS interval is normal at 80 msec. QT interval is normal at 414 msec. Administered Medications: No medications were administered Disposition: 22:42 Co-signature as Attending Physician, Bj Packer MD I reviewed the patient's care rt provided by the Advanced Practice Provider and agree with the diagnosis and treatment plan. Disposition Summary: 11/15/23 22:06 Discharge Ordered Notes: Location: Home kb Condition: Stable kb Diagnosis - Acute upper respiratory infection, unspecified kb Followup: kb - With: Emergency Department - When: As needed - Reason: Worsening of condition Followup: kb - With: Private Physician - When: 2 - 3 days - Reason: Recheck today's complaints, Continuance of care, Re-evaluation by your physician Discharge Instructions: - Discharge Summary Sheet kb - Upper Respiratory Infection, Adult, [id number] kb Forms: - Medication Reconciliation Form kb - Antibiotic Education kb - Prescription Opioid Use kb - Patient Portal Instructions kb - Leadership Thank You Letter kb Signatures: Dispatcher [employer] EDNH Tess Roberto, LOGISTIC SPECIALIST-C LOGISTIC SPECIALIST-Maya Garcia RN RN vc1 Bj Packer MD MD rt Corrections: (The following items were deleted from the chart) 20:47 20:47 BASIC METABOLIC PANEL+C.LAB.BRZ ordered. EDMS EDMS 20:47 20:47 CBC+H.LAB.BRZ ordered. EDMS EDMS 20:47 20:47 D-DIMER+COAG.LAB.BRZ ordered. EDMS EDMS 20:47 20:47 Troponin High Sensitivity+C.LAB.BRZ ordered. EDMS EDMS 20:47 20:47 Influenza Screen (A \T\ B)+BA.LAB.BRZ ordered. EDMS EDMS 20:47 20:47 SARS-COV-2 Antigen Rapid+I.LAB.BRZ ordered. EDMS EDMS 20:47 20:47 Group A Streptococcus Rapid Sc+BA.LAB.BRZ ordered. EDMS EDMS 20:48 20:48 Chest Single View+RAD.RAD.BRZ ordered. EDMS EDMS
[2023-11-15 23:03] VITALS: TEMP 98
[2023-11-15 23:05] VITALS: BP 121/88; O2SAT 100
--- NOTE | 2023-11-17 16:57 | EKG ---
Test Date: 2023-11-15 Test Time: 21:16:12 [employer]razzo Tile Setter: JASMYNE MEASUREMENT RESULTS: Intervals: Rate: 96 IL: 150 QRSD: 80 QT: 328 QTc: 414 [place]: P: 52 IL: 150 QRS: 71 T: 7 INTERPRETIVE STATEMENTS: Normal sinus rhythm Normal ECG Compared to ECG 04/10/2023 23:21:18 Sinus tachycardia no longer present Electronically Signed On 11-17-23 16:51:38 CDT by Bill Casillas
== END 2023-11-15 22:28 | disposition home or self-care (01) ==
LOC: ER 20:34
DX: J06.9 Acute upper respiratory infection, unspecified (principal); F17.210 Nicotine dependence, cigarettes, uncomplicated; Z11.52 Encounter for screening for COVID-19; Z28.310 Unvaccinated for COVID-19
CPT/HCPCS: 36415; 71045; 80048; 84484; 85025; 85379; 87070; 87081; 87804; 87811; 93005; 99284

== ENCOUNTER 2023-11-22 09:13 | Emergency (ER) | payer OTHER ==
--- OUTSIDE RECORDS SUMMARY | 2023-11-22 09:19 | XMS REPORT | Continuity of Care Document ---
Author Name Unknown Address [address] [place] [address] [facility] thconnect Address [address] [facility] [place] [address] Care Team Providers Care Senior Education Specialist Name Role Phone ELDAJARED Lemus Primary Care Physician Unavailab TYRESE Dyer Attending Clinician Unavailable Phuong CUFF SLITTERTyrese Attending Clinician [phone] Vickie Purvis Attending Clinician [phone] Unknown, Attending Attending Clinician Unavailab VICKIE Wong Attending Clinician Unavailable Lab, Ang - Db Attending Clinician Unavailable ANALISA SUAREZ Attending Clinician Unavail able GUERRERO STAHL Attending Clinician Unav ailable Provider, SrinivasaRmchp Temp Attending Clinician Kia vailable Guerrero Stahl MD Attending Clinician + Daniela Analisa HE Attending Clinician + JULY RICE Attending Clinician Unavailable RAMON WILDER Attending Clinician Deja Dacosta MA Attending Clinician UnavailJARED Lowery Attending Clinician Unavailable Laura Joshua Attending Clinician + [phone] Unknown, Attending Attending Clinician Unavailab LAURA Huntley Attending Clinician Unavailable DEE HUFFMAN Attending Clinician Unavailable Pgy3 Attending Clinician Unavailable Nathanael LEES, Dee Attending Clinician [phone] Doctor Unassigned, Watchtower Attending Clinician U oriailDeja Banda CNM Attending Clinician [phone] DEJA ÁLVAREZ Attending Clinician Unavaila KHANH Castrejon Attending Clinician Unavailable Phuong CARVALHOP, Tyrese Attending Clinician [phone] Jared Torre Attending Clinician [phone] Dany Knox Attending Clinician + [phone] DANY CARIAS Attending Clinician Unavailab RAMÓN Trejo Attending Clinician Unavailable Yan PA-CRamón Attending Clinician [phone] Pob, Ad[facility] Main Attending Clinician UnavailLd COHEN, Shanita Call Attending Clinician [phone] Ramiro HERRERA, Janae Sunshine Attending Clinician Unavaila Manuel Torres Attending Clinician Unavailable Hien PACManuel Attending Clinician [phone] Lab, Ang - Db Attending Clinician Unavailable Shanon Beckham MD Attending Clinician [phone] Octavia CUFF SLITTEROumar Attending Clinician [phone] OUMAR DUDLEY Attending Clinician UnavailJuly Snider LVN Attending Clinician MARIA ISABEL Pagan Attending Clinician Unavailable Maria Isabel Villagran Attending Clinician [phone] GABRIELLE MARTÍNEZ Attending Clinician Unavailable Gabrielle Dillard Attending Clinician [phone] PAMELA PRESLEY Attending Clinician Unavailab Shazia Mariely J Attending Clinician + [phone] GERTRUDE MILLAN Attending Clinician UnavailMINOO Garcia Attending Clinician UnavailJAG Wray Attending Clinician Unavailable Jag Magana DO Attending Clinician + [phone] JOB KASPER Attending Clinician Unavailable Job Kasper MD Attending Clinician [phone] JIMENA MAYO Attending Clinician Unavailable Sarah LEES, Carine Attending Clinician + [phone] NORA SANCHEZ Attending Clinician Unavailtita Sanchez CUFF SLITTER, Nora Montoya Attending Clinician [phone] Roger HERRERA, Leidy Attending Clinician Unavailable Nurse, [facility] Attending Clinician Unava ilable Vipul CUFF SLITTER, Paris Attending Clinician [phone] Toby Richards MD Attending Clinician + [phone] TOBY RICHARDS Attending Clinician Unavailable 1, [facility] Usg Room Attending Clinician Unavailmariah Jiménez RN, Mike Attending Clinician Unavailab brittany Ultrasound, [facility] Attending Clinician Unavaila tonio Domingo MD, Jordan F Attending Clinician + [phone] Julio Da Silva APN Attending Clinician +[phone] Radha HERRERA, Lynn Lemus Attending Clinician Unavailab Tracey Dobbins MD Attending Clinician +[phone] Yoshi Esparza MD Attending Clinician [phone] Minoo Flores MD Attending Clinician + [phone] Only, Adc Test Attending Clinician Unavailable Kevan Beaulieu MD Attending Clinician [phone] [phone], [facility] Attending Clinician Unav MELODY Craig Attending Clinician Unavailmariah mac Provider, [facility] Attending Clinician Un available Corazon CUFF SLITTER, Kvng Banks Attending Clinician [phone] Nurse, [facility] Attending Clinician Unava ilable UNKNOWN, ATTENDING Attending Clinician Unavailab brittany Rivera CUFF SLITTER, Simba Attending Clinician [phone] Manuel STANFORD Admitting Clinician Unavailable MARTÍNEZGABRIELLE MOREIRA Admitting Clinician Unavailable ADJIMENA STEWART Admitting Clinician Unavailable Payers Payer Name Policy Type Policy Number Effective Date Expirati on Date Source [employer] MEDICAID [id number] 2019 00:00:00 [facility] [id number] 2016 00:00:00 MEDICAID PENDING PENDING 2019 00:00:00 Problems Condition Name Condition Details Condition Category Status Onset Date Resolution Date Last Treatment Date Treating Clinician Comments Source Prediabete s Prediabete s Disease Active 11-02 00:00: 00 [facility] Insomnia, unspecifie d type Insomnia, unspecifie d type Disease Active 11-02 00:00: 00 [facility] Chronic constipati on Chronic constipati on Disease Active 11-02 00:00: 00 [facility] Irregular menstrual cycle Irregular menstrual cycle Disease Active 09-05 00:00: 00 [facility] Encounter for other general counseling or advice on contracept ion Encounter for other general counseling or advice on contracept ion Disease Active 09-05 00:00: 00 [facility] Diverticul osis Diverticul osis Disease Active 5 00:00: 00 [facility] Herpes zoster without complicati on Herpes zoster without complicati on Disease Active 20 00:00: 00 [facility] History of anxiety History of anxiety Disease Active 04-01 00:00: 00 [facility] Former smoker Former smoker Disease Active - 00:00: 00 [facility] Obesity (BMI 35.0-39.9 without comorbidit y) Obesity (BMI 35.0-39.9 without comorbidit y) Disease Active 09-28 00:00: 00 [facility] Dizziness Dizziness Disease Resolve d 6-08 00:00: 00 2023-06-22 00:00:00 2023-06-22 13:37:48 [facility] Left arm pain Left arm pain Disease Resolve d 2022-0 4-22 00:00: 00 2023-06-22 00:00:00 2023-06-22 13:37:44 [facility] Positive D dimer Positive D dimer Disease Resolve d 4-20 00:00: 00 2023-06-22 00:00:00 2023-06-22 13:37:41 [facility] BMI 32.0-32.9, adult BMI 32.0-32.9, adult Disease Resolve d 2-23 00:00: 00 2023-06-22 00:00:00 2023-06-22 13:37:36 [facility] Chest pain, atypical Chest pain, atypical Disease Resolve d 8-12 00:00: 00 2023-06-22 00:00:00 2023-06-22 13:37:19 [facility] Urinary tract infection without hematuria, site unspecifie d Urinary tract infection without hematuria, site unspecifie d Disease Resolve d 7-07 00:00: 00 2021-12-20 00:00:00 2021-12-20 18:50:56 [facility] Vaginal discharge Vaginal discharge Disease Resolve d 6-23 00:00: 00 2021-12-20 00:00:00 2021-12-20 18:50:53 [facility] Screen for STD (sexually transmitte d disease) Screen for STD (sexually transmitte d disease) Disease Resolve d 5-04 00:00: 00 2021-12-20 00:00:00 2021-12-20 18:51:33 [facility] Absence of menstruati on Absence of menstruati on Disease Resolve d 0 8-22 00:00: 00 2021-12-20 00:00:00 2021-12-20 18:50:57 [facility] Papanicola ou smear of cervix with low grade squamous intraepith elial lesion (LGSIL) Papanicola ou smear of cervix with low grade squamous intraepith elial lesion (LGSIL) Disease Resolve d 0 7-24 00:00: 00 2021-12-20 00:00:00 2021-12-20 18:51:31 [facility] Hospital discharge follow-up Hospital discharge follow-up Disease Resolve d 2021-0 4-20 00:00: 00 2021-06-10 00:00:00 2021-06-10 14:08:40 [facility] Normal labor Normal labor Disease Resolve d 2020-1 0-19 00:00: 00 2021-06-10 00:00:00 2021-06-10 14:08:45 [facility] (normal spontaneou s vaginal delivery) (normal spontaneou s vaginal delivery) Disease Resolve d 2020-1 0-19 00:00: 00 2021-06-10 00:00:00 2021-06-10 14:08:48 [facility] History of delivery History of delivery Disease Resolve d 2020-0 2-23 00:00: 00 2021-06-10 00:00:00 2021-06-10 14:08:34 [facility] History of premature rupture of membranes (PROM) in previous , currently in first trimester History of premature rupture of membranes (PROM) in previous , currently in first trimester Disease Resolve d 2020-0 2-23 00:00: 00 2021-06-10 00:00:00 2021-06-10 14:08:36 [facility] 39 weeks gestation of 39 weeks gestation of Disease Resolve d 2017-0 3-12 00:00: 00 2021-06-10 00:00:00 2021-06-10 14:08:19 [facility] Supervisio n of high risk in first trimester Supervisio n of high risk in first trimester Disease Resolve d 2017-0 1-03 00:00: 00 2021-06-10 00:00:00 2021-06-10 14:09:05 [facility] Multiparit y Multiparit y Disease Resolve d 2016-0 8-22 00:00: 00 2021-06-10 00:00:00 2021-06-10 14:08:43 [facility] Vaginal bleeding in , first trimester Vaginal bleeding in , first trimester Disease Resolve d 2-23 00:00: 00 2020-10-16 00:00:00 2020-10-16 14:42:58 [facility] Pain pelvic Pain pelvic Disease Resolve d 2-23 00:00: 00 2020-10-16 00:00:00 2020-10-16 14:42:42 [facility] Anemia, antepartum , third trimester Anemia, antepartum , third trimester Disease Resolve d 3-13 00:00: 00 2017-05-19 00:00:00 2017-05-19 23:13:46 [facility] Anxiety and depression Anxiety and depression Disease Active 3-13 00:00: 00 2017-05-19 00:00:00 2017-05-19 23:14:13 Overview: Formattin g of this note might be different from the original. History of same,obs for same postpartu m [facility] Normal spontaneou s vaginal delivery Normal spontaneou s vaginal delivery Disease Resolve d 3-13 00:00: 00 2017-05-19 00:00:00 2017-05-19 23:14:05 [facility] Itching Itching Disease Resolve d 3-13 00:00: 00 2017-05-19 00:00:00 2017-05-19 23:14:09 [facility] Labor and delivery indication for care or interventi on Labor and delivery indication for care or interventi on Disease Resolve d - 00:00: 00 2017-05-19 00:00:00 2017-05-19 23:14:17 [facility] Positive GBS test Positive GBS test Disease Resolve d 2-28 00:00: 00 2017-05-19 00:00:00 2017-05-19 23:13:37 [facility] Insufficie nt care in third trimester Insufficie nt care in third trimester Disease Resolve d 0 1-03 00:00: 00 2017-05-19 00:00:00 2017-05-19 23:14:01 [facility] Decreased movements in third trimester, single or unspecifie d fetus Decreased movements in third trimester, single or unspecifie d fetus Disease Resolve d 2-13 00:00: 00 2017-04-19 00:00:00 2017-04-19 07:49:49 [facility] Supervisio n of high risk , antepartum , first trimester Supervisio n of high risk , antepartum , first trimester Disease Resolve d 09-28 00:00: 00 2017-02-09 00:00:00 2017-02-09 11:18:25 [facility] Chlamydia trachomati s infection of lower genitourin danni sites Chlamydia trachomati s infection of lower genitourin danni sites Disease Resolve d 08-30 00:00: 00 2016-07-29 00:00:00 2016-07-29 16:09:38 [facility] Allergies, Adverse Reactions, Alerts Allergy Name Allergy Type Status Severity Reaction(s) Onset Date Inactive Date Treating Clinician Comments Source No Known Allergie s DA Active U 08-21 00:00: 00 [facility] No Known Allergie s DA Active U 2012-02 00:00: 00 [facility] NO KNOWN ALLERGIE S Drug Class Active [facility] Social History Social Habit Start Date Stop Date Quantity Comments Source [facility] Alcoholic beverage intake 2023-11-08 00:00:00 2023-11-08 00:00:00 Ex-drinker (finding) [facility] History of Social function 2023-11-03 00:00:00 2023-11-03 00:00:00 [facility] Cigarettes smoked current (pack per day) - Reported 2023-06-22 00:00:00 2023-06-22 00:00:00 [facility] Cigarette pack-years 2023-06-22 00:00:00 2023-06-22 00:00:00 [facility] Tobacco use and exposure 2023-06-22 00:00:00 2023-06-22 00:00:00 Smokeless tobacco non-user [facility] Tobacco Comment 2023-06-22 00:00:00 2023-06-22 00:00:00 smokes 2 x socially - [facility] Exposure to SARS-CoV-2 (event) 2022-02-05 00:00:00 2022-02-15 18:53:00 Not sure [facility] Education 2020-11-25 00:00:00 2020-11-25 00:00:00 13 [facility] Alcohol Comment 2020-04-01 00:00:00 2020-04-01 00:00:00 socially [facility] History SDOH Alcohol Frequency 2020-04-01 00:00:00 2020-04-01 00:00:00 99 [facility] History SDOH Alcohol Std Drinks 2020-04-01 00:00:00 2020-04-01 00:00:00 99 [facility] History SDOH Alcohol Binge 2020-04-01 00:00:00 2020-04-01 00:00:00 99 [facility] Alcohol intake 2019-08-19 00:00:00 2019-08-19 00:00:00 Current drinker of alcohol (finding) [facility] History of tobacco use 2016-08-28 00:00:00 Cigarette Smoker [facility] Sex assigned at 1985 00:00:00 1985 00:00:00 [facility] Smoking Status Start Date Stop Date Source Ex-smoker 2023-06-22 00:00:00 2023-06-22 00:00:00 [facility] Medications Ordered Medication Name Filled Medication Name Start Date Stop Date Current Medication? Ordering Clinician Indication Dosage Frequency Signature (SIG) Comments Components Source predniSONE 20 mg tablet 2023-02 00:00: 00 11-13 04:59 :00 Yes [id number] 40mg Take 2 tablets by mouth in the morning for [address] [facility] SERTraline (ZOLOFT) 50 mg tablet 11-02 00:00: 00 Yes [id number] 50mg Take 1 tablet by mouth in the morning. [facility] traZODone 50 mg tablet 11-02 00:00: 00 Yes [id number] 50mg Take 1 tablet by mouth at bedtime. [facility] polyethylen e glycol 3350 17 gram/dose powder 9-26 00:00: 00 Yes [id number] 17g Take 17 g by mouth 2 (two) times daily as needed for Constipati on. [facility] norethindro ne 0.35 mg tablet 7-30 00:00: 00 Yes [id number] 1{tbl} Take 1 tablet by mouth in the morning. [facility] norethindro ne 0.35 mg tablet 15 00:00: 00 09-05 00:00 :00 No [id number] 1{tbl} Take 1 tablet by mouth in the morning. [facility] busPIRone 10 mg tablet 02-15 19:02: 28 Yes 10mg Take 10 mg by mouth as needed. [facility] azithromyci n (ZITHROMAX Z-MARICHUY) 250 mg tablet 02-15 00:00: 00 06-21 00:00 :00 No [id number] Z pack as directed [facility] benzonatate 200 mg capsule 02-15 00:00: 00 02-26 05:59 :00 No [id number] 200mg Take 1 capsule by mouth 3 (three) times daily as needed for Cough for up to [address] [facility] albuterol 90 mcg/actuati on inhaler 02-15 00:00: 00 02-26 05:59 :00 No [id number] 2{puff} Inhale 2 Puffs every 6 (six) hours as needed for Wheezing for up to [address] [facility] ampicillin 500 mg capsule 2021-02 00:00: 00 06-21 00:00 :00 No [id number] 500mg Take 1 capsule by mouth every 6 (six) hours. [facility] ampicillin 500 mg capsule 2021-02-14 00:00: 00 01-01 05:59 :00 No [id number] 500mg Take 1 capsule by mouth every 6 (six) hours for [address] [facility] norethindro ne 0.35 mg tablet 2021-02 00:00: 00 06-21 00:00 :00 No [id number] 1{tbl} Take 1 tablet by mouth in the morning. [facility] metroNIDAZO LE 500 mg tablet 2021-02 00:00: 00 12-26 05:59 :00 No [id number] 500mg Take 1 tablet by mouth in the morning and 1 tablet in the evening. Do all this for [address] [facility] ampicillin 500 mg capsule 08-21 00:00: 00 09-01 04:59 :00 No [id number] 500mg Take 1 capsule by mouth 4 (four) times daily for [address] [facility] citalopram 10 mg tablet 08-19 00:00: 00 06-21 00:00 :00 No [id number] 10mg Take 1 tablet by mouth in the morning. [facility] ibuprofen 600 mg tablet 07-20 00:00: 00 06-21 00:00 :00 No [id number] 600mg Take 1 tablet by mouth every 6 (six) hours as needed for Pain (scale 4-6). [facility] busPIRone 10 mg tablet 07-15 17:04: 42 06-21 00:00 :00 No 10mg Take 1 tablet by mouth as needed. [facility] vit 33-iron-fol ic-dha (SELECT-OB + DHA) 29 mg iron-1 mg -250 mg combo pack - 00:00: 00 06-10 00:00 :00 No 1{packe t} Take 1 Packet by mouth daily. [facility] cyclobenzap rine 5 mg tablet 8-14 00:00: 00 04-01 00:00 :00 No [id number] 4 5mg Take 1 tablet by mouth 2 (two) times daily as needed for Muscle Spasms. Can cause drowsiness . [facility] gabapentin 100 mg capsule 2019-09-18 00:00: 00 04-01 00:00 :00 No [id number] 100mg Take 1 capsule by mouth 3 (three) times daily as needed (nerve pain). [facility] Immunizations Ordered Immunization Name Filled Immunization Name Date Status Comments Source TDAP 2020-09-15 00:00:00 Completed [facility] TDAP 2020-09-15 00:00:00 Completed [facility] TDAP 2020-09-15 00:00:00 Completed [facility] TDAP 2020-09-15 00:00:00 Completed [facility] TDAP 2020-09-15 00:00:00 Completed [facility] TDAP 2020-09-15 00:00:00 Completed [facility] TDAP 2020-09-15 00:00:00 Completed [facility] TDAP 2020-09-15 00:00:00 Completed [facility] TDAP 2020-09-15 00:00:00 Completed [facility] TDAP 2020-09-15 00:00:00 Completed [facility] TDAP 2020-09-15 00:00:00 Completed [facility] TDAP 2020-09-15 00:00:00 Completed [facility] TDAP 2020-09-15 00:00:00 Completed [facility] TDAP 2020-09-15 00:00:00 Completed [facility] TDAP 2020-09-15 00:00:00 Completed [facility] TDAP 2020-09-15 00:00:00 Completed [facility] TDAP 2020-09-15 00:00:00 Completed [facility] TDAP 2020-09-15 00:00:00 Completed [facility] TDAP 2017-02-09 00:00:00 Completed [facility] TDAP 2017-02-09 00:00:00 Completed [facility] TDAP 2017-02-09 00:00:00 Completed [facility] TDAP 2017-02-09 00:00:00 Completed [facility] TDAP 2017-02-09 00:00:00 Completed [facility] TDAP 2017-02-09 00:00:00 Completed [facility] TDAP 2017-02-09 00:00:00 Completed [facility] TDAP 2017-02-09 00:00:00 Completed [facility] TDAP 2017-02-09 00:00:00 Completed [facility] TDAP 2017-02-09 00:00:00 Completed [facility] TDAP 2017-02-09 00:00:00 Completed [facility] TDAP 2017-02-09 00:00:00 Completed [facility] TDAP 2017-02-09 00:00:00 Completed [facility] TDAP 2017-02-09 00:00:00 Completed [facility] TDAP 2017-02-09 00:00:00 Completed [facility] TDAP 2017-02-09 00:00:00 Completed [facility] TDAP 2017-02-09 00:00:00 Completed [facility] TDAP 2017-02-09 00:00:00 Completed [facility] TDAP 2007-02-07 00:00:00 Completed [facility] TDAP 2007-02-07 00:00:00 Completed [facility] TDAP 2007-02-07 00:00:00 Completed [facility] TDAP 2007-02-07 00:00:00 Completed [facility] TDAP 2007-02-07 00:00:00 Completed [facility] TDAP 2007-02-07 00:00:00 Completed [facility] TDAP 2007-02-07 00:00:00 Completed [facility] TDAP 2007-02-07 00:00:00 Completed [facility] TDAP 2007-02-07 00:00:00 Completed [facility] TDAP 2007-02-07 00:00:00 Completed [facility] TDAP 2007-02-07 00:00:00 Completed [facility] TDAP 2007-02-07 00:00:00 Completed [facility] TDAP 2007-02-07 00:00:00 Completed [facility] TDAP 2007-02-07 00:00:00 Completed [facility] TDAP 2007-02-07 00:00:00 Completed [facility] TDAP 2007-02-07 00:00:00 Completed [facility] TDAP 2007-02-07 00:00:00 Completed [facility] TDAP 2007-02-07 00:00:00 Completed [facility] TDAP Unknown Completed [facility] TDAP Unknown Completed [facility] TDAP Unknown Completed [facility] TDAP Unknown Completed [facility] TDAP Unknown Completed [facility] TDAP Unknown Completed [facility] TDAP Unknown Completed [facility] TDAP Unknown Completed [facility] TDAP Unknown Completed [facility] TDAP Unknown Completed [facility] TDAP Unknown Completed [facility] TDAP Unknown Completed [facility] TDAP Unknown Completed [facility] TDAP Unknown Completed [facility] TDAP Unknown Completed [facility] Vital Signs Vital Name Observation Time Observation Value Comments S ource Systolic blood pressure 2023-11-08 15:48:00 112 mm[Hg] [facility] Diastolic blood pressure 2023-11-08 15:48:00 75 mm[Hg] [facility] Heart rate 2023-11-08 15:48:00 95 /min [facility] Body temperature 2023-11-08 15:48:00 36.89 Brigitte [facility] Respiratory rate 2023-11-08 15:48:00 20 /min [facility] Body height 2023-11-08 15:48:00 154.9 cm [facility] Body weight 2023-11-08 15:48:00 89.495 kg [facility] BMI 2023-11-08 15:48:00 37.28 kg/m2 [facility] Oxygen saturation in Arterial blood by Pulse oximetry 2023-11-08 15:48:00 96 /min [facility] Systolic blood pressure 2023-11-03 20:19:00 118 mm[Hg] [facility] Diastolic blood pressure 2023-11-03 20:19:00 77 mm[Hg] [facility] Heart rate 2023-11-03 20:19:00 113 /min [facility] Body height 2023-11-03 20:19:00 154.9 cm [facility] Body weight 2023-11-03 20:19:00 89.585 kg [facility] BMI 2023-11-03 20:19:00 37.32 kg/m2 [facility] Oxygen saturation in Arterial blood by Pulse oximetry 2023-11-03 20:19:00 97 /min [facility] Systolic blood pressure 2023-09-06 15:20:00 125 mm[Hg] [facility] Diastolic blood pressure 2023-09-06 15:20:00 80 mm[Hg] [facility] Heart rate 2023-09-06 15:20:00 93 /min [facility] Body temperature 2023-09-06 15:20:00 36.72 Brigitte [facility] Body height 2023-09-06 15:20:00 154.9 cm [facility] Body weight 2023-09-06 15:20:00 87.998 kg [facility] BMI 2023-09-06 15:20:00 36.66 kg/m2 [facility] Systolic blood pressure 2023-06-22 12:10:00 120 mm[Hg] [facility] Diastolic blood pressure 2023-06-22 12:10:00 85 mm[Hg] [facility] Heart rate 2023-06-22 12:10:00 89 /min [facility] Body temperature 2023-06-22 12:10:00 36.5 Brigitte [facility] Respiratory rate 2023-06-22 12:10:00 29 /min [facility] Body height 2023-06-22 12:10:00 154.9 cm [facility] Body weight 2023-06-22 12:10:00 86.183 kg [facility] BMI 2023-06-22 12:10:00 35.90 kg/m2 [facility] Systolic blood pressure 2022-02-16 01:01:00 124 mm[Hg] [facility] Diastolic blood pressure 2022-02-16 01:01:00 87 mm[Hg] [facility] Heart rate 2022-02-16 01:01:00 94 /min [facility] Body temperature 2022-02-16 01:01:00 37.33 Brigitte [facility] Respiratory rate 2022-02-16 01:01:00 17 /min [facility] Body height 2022-02-16 01:01:00 154.9 cm [facility] Body weight 2022-02-16 01:01:00 82.781 kg [facility] BMI 2022-02-16 01:01:00 34.48 kg/m2 [facility] Oxygen saturation in Arterial blood by Pulse oximetry 2022-02-16 01:01:00 100 /min [facility] Systolic blood pressure 2022-01-08 19:57:00 123 mm[Hg] [facility] Diastolic blood pressure 2022-01-08 19:57:00 78 mm[Hg] [facility] Heart rate 2022-01-08 19:57:00 103 /min [facility] Body temperature 2022-01-08 19:57:00 36 Brigitte [facility] Respiratory rate 2022-01-08 19:57:00 18 /min [facility] Body height 2022-01-08 19:57:00 154.9 cm [facility] Body weight 2022-01-08 19:57:00 82.056 kg [facility] BMI 2022-01-08 19:57:00 34.18 kg/m2 [facility] Systolic blood pressure 2021-12-18 20:33:00 110 mm[Hg] [facility] Diastolic blood pressure 2021-12-18 20:33:00 70 mm[Hg] [facility] Heart rate 2021-12-18 20:33:00 96 /min [facility] Body temperature 2021-12-18 20:33:00 36.56 Brigitte [facility] Respiratory rate 2021-12-18 20:33:00 17 /min [facility] Body height 2021-12-18 20:33:00 154.9 cm [facility] Body weight 2021-12-18 20:33:00 79.742 kg [facility] BMI 2021-12-18 20:33:00 33.22 kg/m2 [facility] Procedures Procedure Date / Time Performed Performing Clinician Source POCT MOLECULAR STREP 2023-11-08 15:52:00 Unknown, Attwerner mckeon [facility] POCT TEST 2023-06-22 00:00:00 July Rice [facility] DISCLOSURE AND CONSENT, MEDICAL AND SURGICAL PROCEDURES 2022-01-08 06:01:00 Doctor Unassigned, Watchtower [facility] HCV ANTIBODY 2021-12-18 21:53:00 [facility]ja [facility] CULTURE 2021-12-18 21:53:00 Deja Álvarez [facility] HIV 1/2 AG-AB WITH REFLEX 2021-12-18 21:53:00 Deja Álvarez [facility] PAP SMEAR-LIQUID BASED-CP 2021-12-18 21:53:00 Deja Álvarez [facility] GALV ONLY - SYPHILIS IGG/IGM 2021-12-18 21:53:00 Deja Álvarez [facility] URINE CULTURE 2021-12-18 21:53:00 Deja Álvarez [facility] GC & CHLAMYDIA AMPLIFIED ASSAY 2021-12-18 21:53:00 Deja Álvarez [facility] HIGH RISK HPV-THIN PREP 2021-12-18 21:53:00 Deja Álvarez [facility] TRICHOMONAS AMPLIFIED ASSAY 2021-12-18 21:53:00 Deja Álvarez [facility] POCT TEST 2021-12-18 00:00:00 Nidhi Álvarez [facility] POCT URINALYSIS W/O SPECIFIC GRAVITY 2021-12-18 00:00:00 Deja Álvarez [facility] Encounters Start Date/Time End Date/Time Encounter Type Admission Type Attending Clinicians Care Facility Care Department Encounter ID Source 2020-12-07 15:42:[address] [facility] [id number] [facility] 2020-12-07 01:14:[address] [facility] [id number] [facility] 2020-12-05 06:56:[address] [facility] [id number] [facility] 2020-12-05 06:14:[address] [facility] [id number] [facility] 2023-11-08 00:00:00 2023-11-09 09:33:55 Patient Secure Tyrese Baca [facility] 1.2.840.114 350.1.13.10 4.2.7.2.[id number] [facility] 2023-11-08 10:20:00 2023-11-08 10:40:00 Urgent Care YanVickie partida Unknown, Attending [facility] 1.2.840.114 350.1.13.10 4.2.7.2.[id number] [facility] 2023-11-08 10:20:00 2023-11-08 10:20:00 Outpatient R ANUJAKATELINGUZMAN [facility] [id number] [facility] 2023-11-04 11:00:00 2023-11-04 11:15:00 Collar Cutter Visit Lab, Tyrese Mckinnon Lab, Drake Jose [facility] 1.2.840.114 350.1.13.10 4.2.7.2.[id number] [facility] 2023-11-04 11:00:00 2023-11-04 11:00:00 Outpatient R TYRESE BACA [facility] [id number] [facility] 2023-11-03 15:30:00 2023-11-03 15:54:44 Outpatient R TYRESE BACA [facility] [id number] [facility] 2023-11-03 15:30:00 2023-11-03 15:54:44 [facility] 1.2.840.114 350.1.13.10 4.2.7.2.[id number] [facility] 2023-11-01 16:15:45 2023-11-01 16:15:[address] [facility] [address] [place] 2023-10-28 13:31:52 2023-10-28 13:31:[address] [facility] [address] [place] 2023-09-06 10:30:00 2023-09-06 11:01:05 Outpatient R GUERRERO STEWART [facility] [id number] [facility] 2023-09-06 10:30:00 2023-09-06 11:01:05 Office Visit Provider, Guerrero Adams [facility] CUTTER MACHINE TENDER [facility] CHILD [facility] ..840.114 350.1.13.10 4.2.7.2.[id number] [facility] 2023-06-22 00:00:00 2023-06-22 08:13:41 Letter (Out) Analisa Suarez [facility] CUTTER MACHINE TENDER [facility] CHILD [facility] 1..840.114 350.1.13.10 4.2.7.2.[id number] [facility] 2023-06-22 06:45:00 2023-06-22 08:09:35 Outpatient R JULY RICE [facility] [id number] [facility] 2023-06-22 06:45:00 2023-06-22 08:09:35 Office Visit Provider, Ang-Rmchp Analisa Murphy Candice [facility] CUTTER MACHINE TENDER [facility] & [facility] 1..840.114 350.1.13.10 4.2.7.2.[id number] [facility] 2023-03-21 13:20:00 2023-03-21 13:20:[address] [facility] [id number] [facility] 2022-10-26 17:46:44 2022-10-26 17:46:44 Outpatient SFA SFA [id number] Colton Persaud 2022-09-01 00:00:00 2022-09-01 00:00:00 Telephone Deja Strong 1..840.114 350.1.13.10 4.2.7.2.[id number] [facility] 2022-04-16 14:00:00 2022-04-16 14:00:00 Outpatient R TYRESE BACA [facility] [id number] [facility] 2022-03-31 15:30:00 2022-03-31 15:30:00 Outpatient R JARED COLLADO [facility] [id number] [facility] 2022-03-23 10:30:00 2022-03-23 10:30:00 [address]ED DOUGLAS [facility] [id number] [facility] 2022-03-22 09:30:00 2022-03-22 09:30:00 Outpatient R JARED COLLADO [facility] [id number] [facility] 2022-02-15 18:40:00 2022-02-15 19:00:00 Urgent Care Laura Lowe Unknown, Attending [facility] 1..840.114 350.1.13.10 4.2.7.2.[id number] [facility] 2022-02-15 18:40:00 2022-02-15 18:40:00 Outpatient R LAURA LOWE [facility] [id number] [facility] 2022-01-08 13:30:00 2022-01-08 15:04:40 Outpatient R DEE HUFFMAN [facility] [id number] [facility] 2022-01-08 13:30:00 2022-01-08 15:04:40 Office Visit Pgy3 Dee Huffman [facility] 1.840.114 350.1.13.10 4.2.7.2.[id number] [facility] 2022-01-08 00:00:00 2022-01-08 00:00:00 Orders Only Doctor Unassigned, Watchtower [facility] 1.840.114 350.1.13.10 4.2.7.2.[id number] [facility] 2022-01-07 00:00:00 2022-01-07 00:00:00 Case Management Deja Álvarez [facility] CUTTER MACHINE TENDER [facility] CHILD [facility] 1.840.114 350.1.13.10 4.2.7.2.[id number] [facility] 2022-01-07 00:00:00 2022-01-07 00:00:00 Telephone Deja Álvarez [facility] CUTTER MACHINE TENDER [facility] CHILD [facility] 1.2.840.114 350.1.13.10 4.2.7.2.[id number] [facility] 2022-01-05 00:00:00 2022-01-05 00:00:00 Refill Deja Álvarez [facility] CUTTER MACHINE TENDER [facility] CHILD [facility] 1.2.840.114 350.1.13.10 4.2.7.2.[id number] [facility] 2021-12-21 00:00:00 2021-12-21 00:00:00 Case Management Deja Álvarez [facility] CUTTER MACHINE TENDER [facility] CHILD [facility] 1..840.114 350.1.13.10 4.2.7.2.[id number] [facility] 2021-12-18 14:15:00 2021-12-18 15:30:31 Outpatient R DEJA ÁLVAREZ [facility] [id number] [facility] 2021-12-18 14:15:00 2021-12-18 15:30:31 Office Visit Provider, Drake-Rmchp Temp Deja Álvarez [facility] CUTTER MACHINE TENDER [facility] CHILD [facility] 1..840.114 350.1.13.10 4.2.7.2.[id number] [facility] 2021-09-28 11:00:00 2021-09-28 11:00:[address]GLAS [facility] [id number] [facility] 2021-09-24 13:45:00 2021-09-24 13:45:[address]H PATEL [facility] [id number] [facility] 2021-09-18 09:30:00 2021-09-18 09:30:00 Outpatient TYRESE TURNER [facility] [id number] [facility] 2021-09-01 15:30:00 2021-09-01 15:30:00 Outpatient JAERD DOUGLAS [facility] [id number] [facility] 2021-08-28 00:00:00 2021-08-28 00:00:00 Patient Secure Tyrese Ospina [facility] 1..840.114 350.1.13.10 4.2.7.2.[id number] [facility] 2021-08-24 00:00:00 2021-08-24 00:00:00 Abstract Jared Collado [facility] 1..840.114 350.1.13.10 4.2.7.2.[id number] [facility] 2021-08-21 00:00:00 2021-08-21 00:00:00 Telephone Analisa Suarez [facility] CUTTER MACHINE TENDER [facility] MATERNAL & CHILD [facility] 1..840.114 350.1.13.10 4.2.7.2.[id number] [facility] 2021-08-19 16:00:00 2021-08-19 16:00:00 Outpatient R TOBIAS JARED [facility] [id number] [facility] 2021-08-19 00:00:00 2021-08-19 00:00:00 Refill Eldamariah Jared [facility] 1..840.114 350.1.13.10 4.2.7.2.[id number] [facility] 2021-08-19 00:00:00 2021-08-19 00:00:00 Refill Dany Carias [facility] CUTTER MACHINE TENDER [facility] CHILD [facility] 1..840.114 350.1.13.10 4.2.7.2.[id number] [facility] 2021-08-19 00:00:00 2021-08-19 00:00:00 Refill Doctor Unassigned, Watchtower [facility] 1..840.114 350.1.13.10 4.2.7.2.[id number] [facility] 2021-08-17 00:00:00 2021-08-17 00:00:00 Patient Secure Msg Dany Carias [facility] CUTTER MACHINE TENDER [facility] CHILD [facility] 1..840.114 350.1.13.10 4.2.7.2.[id number] [facility] 2021-08-13 14:15:00 2021-08-13 16:02:04 Outpatient R DANY CARIAS [facility] [id number] [facility] 2021-08-13 14:15:00 2021-08-13 16:02:04 Office Visit Dany Carias [email or web address] CUTTER MACHINE TENDER [facility] CHILD [facility] 1..840.114 350.1.13.10 4.2.7.2.[id number] [facility] 2021-08-13 14:15:00 2021-08-13 14:15:00 Outpatient R FELICITAS CARIASHECTOR [facility] [id number] [facility] 2021-08-12 00:00:00 2021-08-12 00:00:00 Patient Secure Msg Dany Carias [facility]N [facility] CHILD [facility] 1..840.114 350.1.13.10 4.2.7.2.[id number] [facility] 2021-08-07 16:00:00 2021-08-07 16:00:[address]GLAS [facility] [id number] [facility] 2021-08-04 00:00:00 2021-08-04 00:00:00 Telephone Felicitas Cariashector [facility] [[email or web address]] CUTTER MACHINE TENDER [facility] & CHILD [facility] 1..840.114 350.1.13.10 4.2.7.2.[id number] [facility] 2021-08-04 00:00:00 2021-08-04 00:00:00 Patient Secure Msg Jared Collado [facility] 1..840.114 350.1.13.10 4.2.7.2.[id number] [facility] 2021-08-04 00:00:00 2021-08-04 00:00:00 Patient Secure Dany Anton [facility] CUTTER MACHINE TENDER [facility] CHILD [facility] 1.2.840.114 350.1.13.10 4.2.7.2.[id number] [facility] 2021-08-03 00:00:00 2021-08-03 00:00:00 Telephone Dany Carias [facility] CUTTER MACHINE TENDER [facility] 1.2.840.114 350.1.13.10 4.2.7.2.[id number] [facility] 2021-08-03 00:00:00 2021-08-03 00:00:00 Patient Secure Dany Anton [facility] CUTTER MACHINE TENDER [facility] CHILD [facility] 1.2.840.114 350.1.13.10 4.2.7.2.[id number] [facility] 2021-08-03 00:00:00 2021-08-03 00:00:00 Patient Secure Dany Anton [facility] CUTTER MACHINE TENDER [facility] 1.2.840.114 350.1.13.10 4.2.7.2.[id number] [facility] 2021-07-31 11:30:00 2021-07-31 11:30:00 Outpatient R JARED COLLADO [facility] [id number] [facility] 2021-07-30 15:45:00 2021-07-30 16:31:25 Outpatient R DANY CARIAS [facility] [id number] [facility] 2021-07-30 15:45:00 2021-07-30 16:31:25 Office Visit Zafar Niallmariah Banks [facility] CUTTER MACHINE TENDER [facility] MATERNAL & CHILD [facility]ALTH [facility] 1.840.114 350.1.13.10 4.2.7.2.[id number] [facility] 2021-07-29 13:30:00 2021-07-29 13:30:00 Outpatient R JARED COLLADO [facility] [id number] [facility] 2021-07-29 00:00:00 2021-07-29 00:00:00 Patient Secure Msg Doctor Unassigned, Watchtower [facility] OFF[facility] BUILD[facility] 1.840.114 350.1.13.10 4.2.7.2.[id number] [facility] 2021-07-29 00:00:00 2021-07-29 00:00:00 Patient Secure Msg Tobias Jared [facility] BU[facility] 1.840.114 350.1.13.10 4.2.7.2.[id number] [facility] 2021-07-28 16:30:00 2021-07-28 17:03:47 Outpatient R RAMÓN HUDSON [facility] [id number] [facility] 2021-07-28 16:30:00 2021-07-28 17:03:47 Office Visit Yan Ramón [facility] OFF[facility] 1.840.114 350.1.13.10 4.2.7.2.[id number] [facility] 2021-07-28 16:45:00 2021-07-28 17:00:00 Collar Cutter Visit Pob, Adc Lab Main Yan [facility] 1.840.114 350.1.13.10 4.2.7.2.[id number] [facility] 2021-07-28 16:45:00 2021-07-28 16:45:00 Outpatient R RAMÓN HUDSON [facility] [id number] [facility] 2021-07-28 00:00:00 2021-07-28 00:00:00 Telephone SimonShanita [facility] CUTTER MACHINE TENDER [facility] MATERNAL & CHILD [facility] 1.0.114 350.1.13.10 4.2.7.2.[id number] [facility] 2021-07-28 00:00:00 2021-07-28 00:00:00 Orders Only Doctor Unassigned, Watchtower [facility] 1..114 350.1.13.10 4.2.7.2.[id number] [facility] 2021-07-25 00:00:00 2021-07-25 00:00:00 Nurse Triage Janae Rubio [facility] 1.114 350.1.13.10 4.2.7.2.[id number] [facility] 2021-07-22 14:30:00 2021-07-22 14:30:00 Outpatient R JARED COLLADO [facility] [id number] [facility] 2021-07-21 00:00:00 2021-07-21 00:00:00 Telephone Tobias Jared [facility] 1.84.114 350.1.13.10 4.2.7.2.[id number] [facility] 2021-07-21 00:00:00 2021-07-21 00:00:00 Patient Secure [facility] 1.84.114 350.1.13.10 4.2.7.2.[id number] [facility] 2021-07-20 16:13:00 2021-07-20 17:36:00 Emergency X Manuel [facility] E[facility] [id number] [facility] 2021-07-20 16:13:00 2021-07-20 17:36:00 Emergency Manuel Stanford [facility] 1.114 350.1.13.10 4.2.7.2.[id number] [facility] 2021-07-20 15:45:00 2021-07-20 16:00:00 Collar Cutter Visit Lab, Shanon Tariq Brittany [facility] 1.114 350.1.13.10 4.2.7.2.[id number] [facility] 2021-07-20 15:20:00 2021-07-20 15:44:36 Outpatient R TEOFILO DUDLEYTANY [facility] [id number] [facility] 2021-07-20 15:20:00 2021-07-20 15:44:36 Urgent Care Oumar Dudley Amanda [facility] MED[facility] OFF[facility] BUILD[facility] 1.114 350.1.13.10 4.2.7.2.[id number] [facility] 2021-07-17 00:00:00 2021-07-17 00:00:00 Patient Secure Msg YoandyJuly [facility] MED[facility] OFF[facility] BUILDING 1.114 350.1.13.10 4.2.7.2.[id number] [facility] 2021-07-17 00:00:00 2021-07-17 00:00:00 Patient Secure Msg Jared Collado [facility] OFF[facility] BUILDING 1.114 350.1.13.10 4.2.7.2.[id number] [facility] 2021-07-16 14:15:00 2021-07-16 14:41:18 Collar Cutter Visit Lab, Jared Rock [facility] MED[facility] OFFICE BUILDING 1.84114 350.1.13.10 4.2.7.2.[id number] [facility] 2021-07-16 14:15:00 2021-07-16 14:30:00 Collar Cutter Visit Lab, Drake Collado [facility] EMILIANO?[facility] MED[facility] OFF[facility] BUILDING 1.84.114 350.1.13.10 4.2.7.2.[id number] [facility] 2021-07-16 14:15:00 2021-07-16 14:15:00 Outpatient R ELDAJARED Lemus [facility] [id number] [facility] 2021-07-15 15:30:00 2021-07-15 15:45:00 Collar Cutter Visit Lab, Drake Collado [facility] EM[facility]IAN[facility] MED[facility] OFF[facility] BUILD[facility] 1.84.114 350.1.13.10 4.2.7.2.[id number] [facility] 2021-07-15 14:00:00 2021-07-15 15:22:50 Outpatient R ELDAJARED Lemus [facility] [id number] [facility] 2021-07-15 14:00:00 2021-07-15 15:22:50 [facility] MED[facility] OFF[facility] BUILD[facility] 1.84.114 350.1.13.10 4.2.7.2.[id number] [facility] 2021-07-15 14:00:00 2021-07-15 15:22:50 Outpatient R JARED COLLADO [facility] [id number] [facility] 2021-07-15 14:00:00 2021-07-15 15:22:50 Outpatient R JARED COLLADO [facility] [id number] [facility] 2021-07-13 08:30:00 2021-07-13 08:30:00 Outpatient R RITO CARIASMARYBETH [facility] [id number] [facility] 2021-07-13 08:30:00 2021-07-13 08:30:00 Outpatient R DANY CARIAS [facility] [id number] [facility] 2021-07-11 14:20:00 2021-07-11 15:10:05 [id number] 2021-07-11 14:20:00 2021-07-11 15:10:05 Urgent Care Joanna Maria Isabel [facility] 1.840.114 350.1.13.10 4.2.7.2.[id number] [facility] 2021-07-06 00:00:00 2021-07-06 00:00:00 Patient Secure Msg Doctor Unassigned, [facility] 1.840.114 350.1.13.10 4.2.7.2.[id number] [facility] 2021-06-30 14:30:00 2021-06-30 15:41:19 Outpatient R ANALISA SUAREZ [facility] [id number] [facility] 2021-06-30 14:30:00 2021-06-30 15:41:19 Office Visit Analisa Suarez [facility] MACHINE TENDER [facility] & CHILD HEALTH [facility] 1.840.114 350.1.13.10 4.2.7.2.[id number] [facility] 2021-06-30 00:00:00 2021-06-30 00:00:00 Letter (Out) BrandonvikkiAnalisa kaufman [facility]ACHINE TENDER [facility] & CHILD [facility] 1.2.840.114 350.1.13.10 4.2.7.2.[id number] [facility] 2021-06-26 15:45:00 2021-06-26 16:00:00 Collar Cutter Visit [facility] MED[facility] OFF[facility] BUILD[facility] 1..840.114 350.1.13.10 4.2.7.2.[id number] [facility] 2021-06-26 14:30:00 2021-06-26 15:40:40 [facility] [id number] [facility] 2021-06-26 14:30:00 2021-06-26 15:40:40 Office Visit Florcharleen [facility] MED[facility] OFF[facility] BUILDING 1..840.114 350.1.13.10 4.2.7.2.[id number] [facility] 2021-06-26 00:00:00 2021-06-26 00:00:00 Dany Osman [facility] T[facility] & CHILD [facility] 1.2.840.114 350.1.13.10 4.2.7.2.[id number] [facility] 2021-06-25 14:30:00 2021-06-25 14:30:[address] [facility] [id number] [facility] 2021-06-25 14:30:00 2021-06-25 14:30:00 [address] [facility] [id number] [facility] 2021-06-22 15:30:00 2021-06-22 15:30:00 Outpatient R JARED COLLADO [facility] [id number] [facility] 2021-06-22 15:30:00 2021-06-22 15:30:00 Outpatient R JARED COLLAD[facility] [id number] [facility] 2021-06-18 00:00:00 2021-06-18 00:00:00 Patient [facility] MED[facility] OFF[facility] BU[facility] 1.84.114 350.1.13.10 4.2.7.2.[id number] [facility] 2021-06-16 15:30:00 2021-06-16 15:45:00 Collar Cutter Visit Lab, [facility] OFF[facility] 1..114 350.1.13.10 4.2.7.2.[id number] [facility] 2021-06-16 14:30:00 2021-06-16 15:22:44 Outpatient R TYRESE BACA [facility] [id number] [facility] 2021-06-16 14:30:00 2021-06-16 15:22:44 Office [facility] OFF[facility] BU[facility] 1..114 350.1.13.10 4.2.7.2.[id number] [facility] 2021-06-12 13:45:00 2021-06-12 14:00:00 Office Visit Analisa Suarez [facility] CUTTER MACHINE TENDER [facility] MAT[facility] & [facility] 1..114 350.1.13.10 4.2.7.2.[id number] [facility] 2021-06-12 13:45:00 2021-06-12 13:45:00 Outpatient R ANALISA SUAREZ [facility] [id number] [facility] 2021-06-12 13:45:00 2021-06-12 13:45:00 Outpatient R ANALISA SUAREZ [facility] [id number] [facility] 2021-06-12 00:00:00 2021-06-12 00:00:00 Patient Secure Msg Bharat Suarezjocelyn Hawkins [facility] CUTTER MACHINE TENDER [facility] & CHILD [facility] 1.2.840.114 350.1.13.10 4.2.7.2.[id number] [facility] 2021-06-11 00:00:00 2021-06-11 00:00:00 Telephone BrandonvikkiAnalisa kaufman [facility] CUTTER MACHINE TENDER [facility] CHILD [facility] 1.2.840.114 350.1.13.10 4.2.7.2.[id number] [facility] 2021-06-10 13:30:00 2021-06-10 14:41:56 Office Visit Analisa Suarez Shruthi [facility] CUTTER MACHINE TENDER [facility] 1.2.840.114 350.1.13.10 4.2.7.2.[id number] [facility] 2021-06-10 13:30:00 2021-06-10 14:41:56 Outpatient R BHARAT SUAREZOLA [facility] [id number] [facility] 2021-06-10 13:30:00 2021-06-10 13:30:00 Outpatient R ANALISA SUAREZ [facility] [id number] [facility] 2021-06-08 15:30:00 2021-06-08 15:30:00 Outpatient R TYRESE BACA [facility] [id number] [facility] 2021-06-08 15:30:00 2021-06-08 15:30:00 Outpatient R TYRESE BACA [facility] [id number] [facility] 2021-06-02 14:30:00 2021-06-02 15:12:53 Outpatient R TYRESE BACA [facility] [id number] [facility] 2021-06-02 14:30:00 2021-06-02 15:12:53 [facility] MEDICAL OFFICE BUILDING 1..840.114 350.1.13.10 4.2.7.2.[id number] [facility] 2021-06-02 14:30:00 2021-06-02 15:12:53 Outpatient R TYRESE BACA [facility] [id number] [facility] 2021-06-02 14:30:00 2021-06-02 14:30:00 Outpatient R TYRESE BACA [facility] [id number] [facility] 2021-05-29 14:00:00 2021-05-29 14:30:00 Office Visit Jared Collado [facility] EMILIANO?[facility] MEDICAL OFFICE BUILDING 1..840.114 350.1.13.10 4.2.7.2.[id number] [facility] 2021-05-29 14:00:00 2021-05-29 14:00:00 Outpatient R JARED [facility]LLADO [facility] [id number] [facility] 2021-05-29 09:30:00 2021-05-29 09:30:00 Outpatient R TYRESE BACA [facility] [id number] [facility] 2021-05-28 00:00:00 2021-05-28 00:00:00 Telephone [facility] MED[facility] OFF[facility] BUILDING 1.2.840.114 350.1.13.10 4.2.7.2.[id number] [facility] 2021-05-27 09:15:00 2021-05-27 09:30:00 Collar Cutter Visit Lab, Drake - Damon Jared Collado [facility] MEDICAL OFFICE BUILDING 1.114 350.1.13.10 4.2.7.2.[id number] [facility] 2021-05-27 09:15:00 2021-05-27 09:15:00 Outpatient R JARED [facility]LLADO [facility] [id number] [facility] 2021-05-27 08:30:00 2021-05-27 09:00:00 Office Visit [facility] MEDICAL OFFICE BUILDING 1.114 350.1.13.10 4.2.7.2.[id number] [facility] 2021-05-27 08:30:00 2021-05-27 08:30:00 Outpatient R JARED [facility]LLADO [facility] [id number] [facility] 2021-05-27 00:00:00 2021-05-27 00:00:00 Letter (Out) Jared [facility] MEDICAL OFFICE BUILDING 1.114 350.1.13.10 4.2.7.2.[id number] [facility] 2021-05-27 00:00:00 2021-05-27 00:00:00 Telephone Jared [facility] MEDICAL OFFICE BUILDING 1.114 350.1.13.10 4.2.7.2.[id number] [facility] 2021-05-27 00:00:00 2021-05-27 00:00:00 Telephone EldaJared lemus [facility] MED[facility] OFF[facility] BU[facility] 1.114 350.1.13.10 4.2.7.2.[id number] [facility] 2021-05-23 01:00:00 2021-05-23 06:13:00 Emergency X GABRIELLE MARTÍNEZ [facility] [id number] [facility] 2021-05-23 01:00:00 2021-05-23 06:13:00 Emergency Gabrielle Martínez R [facility] 1.840.114 350.1.13.10 4.2.7.2.[id number] [facility] 2021-05-23 01:00:00 2021-05-23 06:13:00 Emergency X GABRIELLE MARTÍNEZ [facility] [id number] [facility] 2021-05-22 16:00:00 2021-05-22 16:00:00 Outpatient R PAMELA [facility] [id number] [facility] 2021-05-22 14:20:00 2021-05-22 15:02:37 Outpatient R PAMELA [facility] [id number] [facility] 2021-05-22 14:20:00 2021-05-22 15:02:37 Urgent Care Pamela Presley [facility] MEDICAL OFFICE BUILDING 1.840.114 350.1.13.10 4.2.7.2.[id number] [facility] 2021-05-15 00:00:00 2021-05-15 00:00:00 Orders Only Doctor Unassigned, Watchtower [facility] 1.840.114 350.1.13.10 4.2.7.2.[id number] [facility] 2021-05-04 15:30:00 2021-05-04 15:30:00 Outpatient R GERTRUDE MILLAN [facility] [id number] [facility] 2021-05-04 15:30:00 2021-05-04 15:30:00 Outpatient R YANA GERTRUDE [facility] [id number] [facility] 2021-05-01 13:00:00 2021-05-01 13:00:00 Outpatient R SANDRA JOSEJUAN CENEDINA [facility] [id number] [facility] 2021-05-01 13:00:00 2021-05-01 13:00:00 Outpatient [facility] [id number] [facility] 2021-04-30 16:30:00 2021-04-30 17:15:50 Outpatient R PHUONG TYRESE [facility] [id number] [facility] 2021-04-30 16:30:00 2021-04-30 17:15:50 Office Visit Tyrese Baca [facility] MEDICAL OFF[facility] BUILDING 1.2.840.114 350.1.13.10 4.2.7.2.[id number] [facility] 2021-04-29 18:59:00 2021-04-29 20:20:00 Emergency X JAG MAGANA [facility] [id number] [facility] 2021-04-29 18:59:00 2021-04-29 20:20:00 Emergency Jag Magana [address]840.114 350.1.13.10 4.2.7.2.[id number] [facility] 2021-04-29 18:59:00 2021-04-29 20:20:00 Emergency X JAG MAGANA [facility] [id number] [facility] 2021-04-03 13:30:00 2021-04-03 13:30:00 [id number] [facility] 2021-03-27 02:58:00 2021-03-27 04:43:00 Emergency X JOB KASPER [facility] [id number] [facility] 2021-03-27 02:58:00 2021-03-27 04:43:00 Emergency Job Kasper [facility] 1.2840.114 350.1.13.10 4.2.7.2.[id number] [facility] 2021-03-27 00:00:00 2021-03-27 00:00:00 Orders Only Doctor Unassigned, Watchtower [facility] 1.0.114 350.1.13.10 4.2.7.2.[id number] [facility] 2020-11-25 13:14:00 2020-11-27 12:30:00 Inpatient X JIMENA MAYO [facility] KYLE [id number] [facility] 2020-11-25 20:45:00 2020-11-26 00:47:00 Anesthesia Event Carine Smith [facility] 1..114 350.1.13.10 4.2.7.2.[id number] [facility] 2020-11-24 00:00:00 2020-11-24 00:00:00 Dany Beth [facility] CUTTER MACHINE TENDER [facility] MATERNAL & CHILD [facility] 1..114 350.1.13.10 4.2.7.2.[id number] [facility] 2020-11-20 10:15:00 2020-11-20 10:15:00 Outpatient R NORA SANCHEZ [facility] [id number] [facility] 2020-11-18 00:00:00 2020-11-18 00:00:00 Patient Secure Msg Doctor Unassigned, Watchtower [facility] CUTTER MACHINE TENDER [facility] MATERNAL & CHILD [facility] 1.0.114 350.1.13.10 4.2.7.2.[id number] [facility] 2020-11-17 00:00:00 2020-11-17 00:00:00 Telephone Nora Sanchez [facility] CUTTER MACHINE TENDER [facility] & CHILD [facility] 1.2.840.114 350.1.13.10 4.2.7.2.[id number] [facility] 2020-11-10 10:30:00 2020-11-10 10:30:[address] [facility] [id number] [facility] 2020-10-30 12:45:00 2020-10-30 12:45:00 Out[address]DEZ [facility] [id number] [facility] 2020-10-16 14:23:36 2020-10-16 15:09:33 Routine Visit Nora Sanchez [facility] CUTTER MACHINE TENDER [facility] & CHILD [facility] 1..840.114 350.1.13.10 4.2.7.2.[id number] [facility] 2020-10-16 13:00:00 2020-10-16 13:00:00 Outpatient [address] [facility] [id number] [facility] 2020-10-16 00:00:00 2020-10-16 00:00:00 Orders Only Doctor Unassigned, Watchtower [facility] 1..840.114 350.1.13.10 4.2.7.2.[id number] [facility] 2020-10-15 09:45:00 2020-10-15 09:45:[address] [facility] [id number] [facility] 2020-10-07 08:00:00 2020-10-07 08:00:00 Outpatient NORA [facility]ELENDEZ [facility] [id number] [facility] 2020-09-30 18:00:00 2020-09-30 18:00:00 Outpatient R CARIAS, ROSHUNDA [facility] [id number] [facility] 2020-09-30 11:45:00 2020-09-30 11:45:00 Outpatient [address]OMPSON [facility] [id number] [facility] 2020-09-29 16:45:00 2020-09-29 16:45:00 Outpatient D[address]OMPSON [facility] [id number] [facility] 2020-09-18 00:00:00 2020-09-18 00:00:00 Patient Secure Msg Dany Carias [facility] CUTTER MACHINE TENDER [facility] & CHILD [facility] 1.2.840.114 350.1.13.10 4.2.7.2.[id number] [facility] 2020-09-15 13:58:57 2020-09-15 15:37:45 Routine Visit Dany Carias [email or web address] CUTTER MACHINE TENDER [facility] & CHILD [facility] 1.2840.114 350.1.13.10 4.2.7.2.[id number] [facility] 2020-09-15 13:15:00 2020-09-15 13:15:00 Out[address]ON [facility] [id number] [facility] 2020-09-12 00:00:00 2020-09-12 00:00:00 Nurse Triage Leidy Duran [facility] 1.20.114 350.1.13.10 4.2.7.2.[id number] [facility] 2020-08-29 00:00:00 2020-08-29 00:00:00 Telephone Nurse, [facility] Care [facility] 1.2840.114 350.1.13.10 4.2.7.2.[id number] [facility] 2020-08-28 15:21:38 2020-08-28 23:59:00 Hospital Encounter [place] [facility] 1.2.840.114 350.1.13.10 4.2.7.2.[id number] [facility] 2020-08-28 15:21:38 2020-08-28 23:59:00 Hospital Encounter [place] [facility] 1.2.840.114 350.1.13.10 4.2.7.2.686 [id number] 2020-08-28 14:13:24 2020-08-28 15:23:42 Urgent Care [place] [facility]Toby [facility] [address] 1.2.840.114 350.1.13.10 4.2.7.2.[id number] [facility] 2020-08-28 14:13:24 2020-08-28 15:23:42 Urgent Care Vipul [place] [facility] 1.2.840.114 350.1.13.10 4.2.7.2.686 [id number] 2020-08-28 14:20:00 2020-08-28 14:20:[address]ES [facility] [id number] [facility] 2020-08-27 10:01:23 2020-08-27 11:16:37 Routine Visit Dany Carias [facility] CUTTER MACHINE TENDER [facility] MATERNAL & CHILD [facility] 1.2.840.114 350.1.13.10 4.2.7.2.[id number] [facility] 2020-08-27 10:01:23 2020-08-27 11:16:37 Routine Visit Dany Carias [facility] CUTTER MACHINE TENDER [facility] MATERNAL & CHILD [facility] 1.2.840.114 350.1.13.10 4.2.7.2.686 [id number] 2020-08-27 09:00:00 2020-08-27 09:00:00 Outpatient R DANY CARIAS [facility] [id number] [facility] 2020-08-27 00:00:00 2020-08-27 00:00:00 Orders Only Doctor Unassigned, Watchtower [facility] 1.2840.114 350.1.13.10 4.2.7.2.[id number] [facility] 2020-08-27 00:00:00 2020-08-27 00:00:00 Orders Only Doctor Unassigned, Watchtower [facility] 1.20.114 350.1.13.10 4.2.7.2.686 [id number] 2020-08-19 14:50:51 2020-08-19 15:35:51 Collar Cutter Visit 1, [facility] Room Arcelia Lucascarolina cailin [facility] 1.2840.114 350.1.13.10 4.2.7.2.[id number] [facility] 2020-08-19 14:50:51 2020-08-19 15:35:51 Collar Cutter Visit 1, [facility] 1.20.114 350.1.13.10 4.2.7.2.686 [id number] 2020-08-19 14:15:00 2020-08-19 14:15:[address] [facility] [id number] [facility] 2020-08-11 08:45:00 2020-08-11 08:45:[address] [facility] [id number] [facility] 2020-08-06 00:00:00 2020-08-06 00:00:00 Nurse Mike Willams [facility] 1.2.840.114 350.1.13.10 4.2.7.2.[id number] [facility] 2020-08-06 00:00:00 2020-08-06 00:00:00 Telephone Dany Carias Jocelyn [facility] CUTTER MACHINE TENDER [facility] MATERNAL & CHILD [facility] 1.2840.114 350.1.13.10 4.2.7.2.[id number] [facility] 2020-08-06 00:00:00 2020-08-06 00:00:00 Nurse Triage [facility] 1.20.114 350.1.13.10 4.2.7.2.686 [id number] 2020-07-30 10:22:14 2020-07-30 10:37:14 Routine Visit Dany Carias Jocelyn [facility] 1.2.114 350.1.13.10 4.2.7.2.[id number] [facility] 2020-07-30 10:15:00 2020-07-30 10:15:00 Outpatient FELICITAS THOMPSONGREYMariah [facility] [id number] [facility] 2020-07-21 13:45:00 2020-07-21 13:45:00 Outpatient Jocelyn CARIAS DANY [facility] [id number] [facility] 2020-07-17 09:00:00 2020-07-17 09:00:00 Outpatient RITO THOMPSONHECTOR [facility] [id number] [facility] 2020-07-14 09:45:41 2020-07-14 11:00:41 Collar Cutter Visit Ultrasound, Jordan Valencia [facility] CUTTER MACHINE TENDER [facility] & CHILD [facility] 1.2840.114 350.1.13.10 4.2.7.2.[id number] [facility] 2020-07-14 10:00:00 2020-07-14 10:00:[address] [facility] [id number] [facility] 2020-07-14 00:00:00 2020-07-14 00:00:00 Case Management Nora Sanchez [facility] CUTTER MACHINE TENDER [facility] & CHILD [facility] 1.2.840.114 350.1.13.10 4.2.7.2.[id number] [facility] 2020-07-01 13:52:00 2020-07-01 14:58:28 Routine Visit Dany Carias [facility] CUTTER MACHINE TENDER [facility] & CHILD [facility] 1.2.840.114 350.1.13.10 4.2.7.2.[id number] [facility] 2020-07-01 13:45:00 2020-07-01 13:45:00 Outpatient R DANY CARIAS [facility] [id number] [facility] 2020-07-01 00:00:00 2020-07-01 00:00:00 Telephone Dany Carias [facility] CUTTER MACHINE TENDER [facility] & CHILD [facility] 1.2.840.114 350.1.13.10 4.2.7.2.[id number] [facility] 2020-06-17 08:48:55 2020-06-17 09:25:15 Routine Visit Dany Carias [facility] CUTTER MACHINE TENDER [facility] CHILD [facility] 1.2.840.114 350.1.13.10 4.2.7.2.[id number] [facility] 2020-06-17 08:45:00 2020-06-17 08:45:00 Outpatient R [address]IASDANY [facility] [id number] [facility] 2020-06-10 15:45:00 2020-06-10 15:45:00 [address]ON [facility] [id number] [facility] 2020-06-03 20:19:00 2020-06-03 22:12:00 Emergency Julio Da Silva [facility] 1.2840.114 350.1.13.10 4.2.7.2.[id number] [facility] 2020-05-13 09:59:20 2020-05-13 10:14:20 Routine Visit Dany Carias Jocelyn [facility] CUTTER MACHINE TENDER [facility] MATERNAL & CHILD [facility] 1.2840.114 350.1.13.10 4.2.7.2.[id number] [facility] 2020-05-13 10:00:00 2020-05-13 10:00:00 Outpatient [address]OMPSON [facility] [id number] [facility] 2020-05-06 11:00:00 2020-05-06 11:00:00 Outpatient DANY THOMPSON [facility] [id number] [facility] 2020-04-29 10:45:00 2020-04-29 10:45:00 Outpatient DANY THOMPSON [facility] [id number] [facility] 2020-04-29 00:00:00 2020-04-29 00:00:00 Telephone Niall Cariasmariah [facility] [[email or web address]] CUTTER MACHINE TENDER [facility] & CHILD [facility] 1.2840.114 350.1.13.10 4.2.7.2.[id number] [facility] 2020-04-22 00:00:00 2020-04-22 00:00:00 Nurse Triage Lynn Garcia [facility] 1.2840.114 350.1.13.10 4.2.7.2.[id number] [facility] 2020-04-09 00:00:00 2020-04-09 00:00:00 Case Management Dany Carias [facility] CUTTER MACHINE TENDER [facility]ILD [facility] 1.2.840.114 350.1.13.10 4.2.7.2.[id number] [facility] 2020-04-08 11:32:55 2020-04-08 12:14:18 Collar Cutter Visit Ultrasound, Tracey Trammell [facility] CUTTER MACHINE TENDER [facility] & CHILD [facility] 1.2.840.114 350.1.13.10 4.2.7.2.[id number] [facility] 2020-04-08 11:30:00 2020-04-08 11:30:[address] [facility] [id number] [facility] 2020-04-08 00:00:00 2020-04-08 00:00:00 Abstract Dany Carias [email or web address] CUTTER MACHINE TENDER [facility]ILD [facility] 1.2.840.114 350.1.13.10 4.2.7.2.[id number] [facility] 2020-04-02 23:15:00 2020-04-03 01:12:00 Emergency Yoshi Esparza [facility] ([facility]) 1.2.840.114 350.1.13.10 4.2.7.2.[id number] [facility] 2020-04-02 00:00:00 2020-04-02 00:00:00 Telephone Dany Carias [facility] CUTTER MACHINE TENDER [facility]ILD [facility] 1.2.840.114 350.1.13.10 4.2.7.2.[id number] [facility] 2020-04-02 00:00:00 2020-04-02 00:00:00 Telephone Dany Carias [facility] [[email or web address]] CUTTER MACHINE TENDER [facility] & CHILD [facility] 1.840.114 350.1.13.10 4.2.7.2.[id number] [facility] 2020-04-01 09:25:04 2020-04-01 11:05:29 Initial Visit Dany Carias [facility] CUTTER MACHINE TENDER [facility] 1.0.114 350.1.13.10 4.2.7.2.[id number] [facility] 2020-04-01 08:30:00 2020-04-01 08:30:[address] [facility] [id number] [facility] 2020-04-01 00:00:00 2020-04-01 00:00:00 Orders Only Doctor Unassigned, Watchtower [facility] 1..114 350.1.13.10 4.2.7.2.[id number] [facility] 2019-12-18 09:30:00 2019-12-18 09:30:[address] [facility] [id number] [facility] 2019-10-01 00:00:00 2019-10-01 00:00:00 Patient Secure Msg Doctor Unassigned, Watchtower [facility] 1..114 350.1.13.10 4.2.7.2.[id number] [facility] 2019-09-26 00:00:00 2019-09-26 00:00:00 Patient Secure Msg Minoo Flores [facility] 1..114 350.1.13.10 4.2.7.2.[id number] [facility] 2019-09-21 11:10:44 2019-09-21 23:59:00 Hospital Encounter Minoo Flores [facility] 1.2.840.114 350.1.13.10 4.2.7.2.[id number] [facility] 2019-09-21 11:00:00 2019-09-21 11:09:00 Hospital Encounter Minoo Flores [facility] 1.2.840.114 350.1.13.10 4.2.7.2.[id number] [facility] 2019-09-21 09:56:26 2019-09-21 10:59:00 Hospital Encounter Minoo Flores [facility] 1.2.840.114 350.1.13.10 4.2.7.2.[id number] [facility] 2019-09-21 00:00:00 2019-09-21 00:00:00 Outpatient R MINOO FLORES [facility] [id number] [facility] 2019-09-21 00:00:00 2019-09-21 00:00:00 Patient Secure Msg Minoo Flores [facility] 1.2.840.114 350.1.13.10 4.2.7.2.[id number] [facility] 2019-09-21 00:00:00 2019-09-21 00:00:00 Case Management Minoo Flores [facility] nal Building 1.2.840.114 350.1.13.10 4.2.7.2.[id number] [facility] 2019-09-21 00:00:00 2019-09-21 00:00:00 Patient Secure Msg [facility] 1.2.840.114 350.1.13.10 4.2.7.2.[id number] [facility] 2019-09-20 10:01:43 2019-09-20 10:16:43 Laboratory Only Only, Adc Test Kevan Beaulieu [facility] 1..114 350.1.13.10 4.2.7.2.[id number] [facility] 2019-09-20 09:55:41 2019-09-20 10:10:41 Collar Cutter Visit Pob, Adc Lab Main Minoo Flores [facility] Building 1.2.114 350.1.13.10 4.2.7.2.[id number] [facility] 2019-09-20 00:00:00 2019-09-20 00:00:00 Outpatient R MINOO FLORES [facility] [id number] [facility] 2019-09-20 00:00:00 2019-09-20 00:00:00 Orders Only Doctor Unassigned, Watchtower [facility] 1..114 350.1.13.10 4.2.7.2.[id number] [facility] 2019-09-19 13:45:12 2019-09-19 15:57:17 Telemedici ne Visit Minoo Flores [facility] Building 1.2114 350.1.13.10 4.2.7.2.[id number] [facility] 2019-09-19 09:45:00 2019-09-19 09:45:00 Outpatient R MINOO FLORES [facility] [id number] [facility] 2019-09-19 00:00:00 2019-09-19 00:00:00 Telephone Minoo Flores [facility] Office Building One 1.114 350.1.13.10 4.2.7.2.[id number] [facility] 2019-09-14 12:46:19 2019-09-14 13:54:37 Urgent Care Pob1, Acute Care Clinic Phuong [facility] Office Building One 1.114 350.1.13.10 4.2.7.2.[id number] [facility] 2019-09-14 13:00:00 2019-09-14 13:00:00 [facility] [id number] [facility] 2019-08-28 11:00:00 2019-08-28 11:00:00 Outpatient R NICOLE GAOSAULO [facility] [id number] [facility] 2019-08-22 08:59:00 2019-08-24 07:24:30 Inpatient HCACL MALACHI [id number] [facility] 2019-08-23 15:07:25 2019-08-23 16:34:23 Urgent Care Provider, [facility] Ph[facility]ong [facility] Office Building One 1..114 350.1.13.10 4.2.7.2.[id number] [facility] 2019-08-23 15:40:00 2019-08-23 15:40:[address] [facility] [id number] [facility] 2019-08-22 14:16:15 2019-08-22 16:10:00 Emergency Kvng Chandra R [facility] ([facility] 1..114 350.1.13.10 4.2.7.2.[id number] [facility] 2019-08-22 13:26:07 2019-08-22 13:41:07 Nurse Visit Nurse, [facility] Unknown, Attending [facility] 1..114 350.1.13.10 4.2.7.2.[id number] [facility] 2019-08-22 13:30:00 2019-08-22 13:30:00 Outpatient R UNKNOWN, ATTENDING [facility] [id number] [facility] 2019-08-22 00:00:00 2019-08-22 00:00:00 Telephone Simba Rivera [facility] 1.2.840.114 350.1.13.10 4.2.7.2.[id number] [facility] 2019-08-21 00:00:00 2019-08-21 00:00:00 Patient Secure Msg Doctor Unassigned, Watchtower [facility] 1.2.840.114 350.1.13.10 4.2.7.2.[id number] [facility] 2019-08-19 21:26:07 2019-08-19 21:27:00 Emergency Simba Rivera [facility] 1.2.840.114 350.1.13.10 4.2.7.2.[id number] [facility] 2019-08-19 00:00:00 2019-08-19 00:00:00 Orders Only Doctor Unassigned, Watchtower [facility] 1.2.840.114 350.1.13.10 4.2.7.2.[id number] [facility] Results Test Description Test Time Test Comments Results Result Co mments Source [facility] [id number] 12:46:00* Test Item Value Reference Range Interpretation Comme nts POCT PREG (test code = 1605) Negative On board controls acceptable with C Line (test code = 3574) Yes POCT PREG LOT # (test code = 3575) POCT PREG TEST DATE ( test code = 3576) [facility] [id number] 12:46:00* Test Item Value Reference Range Interpretation Comme nts POCT PREG (test code = 1605) Negative On board controls acceptable with C Line (test code = 3574) Yes POCT PREG LOT # (test code = 3575) POCT PREG TEST DATE ( test code = 3576) [facility] [id number] 20:37:00* Test Item Value Reference Range Interpretation Comme nts POCT PREG (test code = 1605) Negative On board controls acceptable with C Line (test code = 3574) Yes POCT PREG LOT # (test code = 3575) POCT PREG TEST DATE ( test code = 3576) [facility] [id number] 20:37:00* Test Item Value Reference Range Interpretation Comme nts POCT PREG (test code = 1605) Negative On board controls acceptable with C Line (test code = 3574) Yes POCT PREG LOT # (test code = 3575) POCT PREG TEST DATE ( test code = 3576) [facility] [id number] 20:37:00* Test Item Value Reference Range Interpretation Comme nts POCT PREG (test code = 1605) Negative On board controls acceptable with C Line (test code = 3574) Yes POCT PREG LOT # (test code = 3575) POCT PREG TEST DATE ( test code = 3576) [facility] URINALYSIS W/O SPECIFIC [id number] 20:36:00* Test Item Value Reference Range Interpretation [...] [facility] URINALYSIS W/O SPECIFIC [id number] 20:36:00* Test Item Value Reference Range Interpretation [...] = 3257) trace Negative - Negati ve [facility] URINALYSIS W/O SPECIFIC [id number] 20:36:00* Test Item Value Reference Range Interpretation [...] = 3257) trace Negative - Negati ve [facility]-CoV-2 (COVID-19), RT-PCR/[id number] 15:19:39* Test Item Value Reference Range Interpretation Comments SARS-CoV-2 INTERPRETATION (test code = 05048) NEGATIVE SEE NOTE SARS-CoV-2 R NA NOT [...] prevalence is high. SOURCE (test code = 33966) NASOPHARYNGEAL Note: Methodolog y is Dannie Stefani Real-Time RT-PCR. The expected result or reference range is NEGATIVE (Not Detected). For more information regarding COVID-19 testing to include clinicalinformation, methodology detail, intended use, FDA authorization andrecommended fact sheets for patients or healthcare providers, see Txt4 Announcement: SARS-CoV-2 (COVID-19) by NAAT at URL below (note,fact sheets are provided by method given in report:[email or web address]/ Alternatively, see downloadable PDF fact sheet at:[email or web address]-[email or web address] UNLESS OTHERWISE INDICATED, ALL TESTING PERFORMED [facility] [employer] [address] [place] [address] UMBRELLA CUTTER: OCTAVIANO GUZMAN M.D. CLIA NUMBER [id number] [facility] [place]. [id number] COMPREHENSIVE METABOLIC [id number] 10:12:00* Test Item Value Reference Range Interpretation [...] code = ALKP) 65 IUnit/L 20-125 N [id number] 10:12:00* Test Item Value Reference Range Interpretation Comme nts TROPONIN-I (test code = TROPI) < 0.015 ng/mL 0.000-0.045 N Negative: <= 0.0 45 Positive: >= 0.046 Correlation with serial results, other cardiac markers andclinical findings is necessary to determine the clinicalsignificance of this result. Results using different methodologies should not be comparedto one another as quantitative results may vary by method. COMPREHENSIVE METABOLIC [id number] 10:11:00* Test Item Value Reference Range Interpretation [...] ( test code = ALKP) IUnit/L 20-125 [id number] 10:11:00* Test Item Value Reference Range Interpretation Comme nts TROPONIN-I (test code = TROPI) < 0.015 ng/mL 0.000-0.045 N Negative: <= 0.0 45 Positive: >= 0.046 Correlation with serial results, other cardiac markers andclinical findings is necessary to determine the clinicalsignificance of this result. Results using different methodologies should not be comparedto one another as quantitative results may vary by method. PROTHROMBIN [id number] 09:59:00* Test Item Value Reference Range Interpretation Comme [facility] PROTHROMBIN TIME PATIENT (test code = PTP) [...] Acute Myocardial Infarction (to prevent recurrent infarct). [id number] 09:59:00* Test Item Value Reference Range Interpretation Comme nts D-DIMER (test code = DDIMER) 224 ng/mlFEU <=500 N THROMBOSIS AND/O R PULMONARY EMBOLISM AND THE CLINICAL CUT- OFF VALUE FOR EXCLUSION (500 ng/mL FEU) OF THESE CONDITIONSIS VALIDATED BY THE TIE FASTENER OF THE METHOD. A NEGATIVE D-DIMER RESULT WHEN COMBINED WITH A CLINICALASSESSMENT OF LOW PRETEST PROBABILITY HAS BEEN SHOWN TO HAVEA HIGH NEGATIVE PREDICTIVE VALUE OF DVT OR PE. D-DIMER VALUES >500 ng/mL FEU ARE NOT DIAGNOSTIC FOR DVT, PEor DIC WITHOUT OTHER CONFIRMATORY TESTS AND APPROPRIATECLINICAL EUALUATIONS. CBC W/AUTO [id number] 09:56:00* Test Item Value Reference Range Interpretation [...] = IFF) NO - XR CHEST 1 [id number] 09:56:00FAX: Dallas Cain MD [phone] [place]: St: PRE Name: RAGHAVENDRA QUINN [facility] [place] : 1985 Age/S: 34/F [address] [place] [address] Unit #: [id number] Loc: [place] [address] Phys: Dallas Cain MD Acct: [id number] Dis Date: Status: PRE ER PHONE #: [phone] Exam Date: 08/22/2019 1003 FAX #: [phone] Reason: Chest Pain EXAMS: CPT CODE: [id number] XR CHEST 1 V 37096 PROCEDURE: CHEST SINGLE VIEW INDICATION: Chest Pain COMPARISON: There are no previous relevant studies available for correlation. FINDINGS: The lungs are clear. No pleural abnormality. The cardiomediastinal silhouette is normal for projection. The bony thorax is intact. IMPRESSION: Normal radiograph. SL: [id number] El ectronically Signed by Jesse Sousa on 08/22/2019 at 0956 Reported and signed by: Samson Sousa M.D. CC: Dallas Cain MD Technologist: RT Maddi(R) Trnscrd Date/Time/By: 08/22/2019 (0956) : By: Bret.KWL Orig Print D/T: S: 08/22/2019 (1002) PAGE 1 Signed Report Notes Date/Time Note Provider Source 2023-11-08 18:16:14 See lab result note when available- likely by tomorrow, during which this will be addressed. [facility] 2023-11-04 11:00:00 Images from the original note were not included. Venipuncture collection performed by clean technique on the right anticubitus. Total of 1 attempts were made. Slight pressure and a bandage/dressing were applied to the site(s). The patient experienced no complications. The following specimens were processed according to instructions and sent to [facility] laboratories per lab order on 11/04/2023 : LT BLUE SST 2 RED LAV 2 PPT DK GREEN (LiHep) DK GREEN (SodH) JEFFRIES DK BLUE (K2) DK BLUE (S) ACD Blood Culture NIPT/NTD [facility] 2022-09-01 09:11:30 Formatting of this n ote is different from the original. 09/01/22 Community Wellness and Outreach team contacted patient to assist in completing Health Maintenance topics that are overdue. Raghavendra Quinn [id number] Attempt Number: 1st attempt Health Maintenance topics addressed: Health Maintenance Due Topic Date Due SARS-CoV-2 (COVID-19) Vaccine (1) Never done Depression Screening 09/18/2020 Call outcome: Attempted to get in contact with patient regarding missed annual visit appointment. No answer. LVM for patient to return phone call. Deja Strong MA [facility] 2019-08-22 09:39:00 [facility] EMERGENCY PROVIDER REPORT REPORT#:[id number] REPORT STATUS: Signed DATE:08/22/19 TIME: 938 PATIENT: RAGHAVENDRA QUINN UNIT #: [id number] ROOM/BED: AGE: 34 SEX: F PCP PHYS: [...] (Auto) (14.0 - 32.0 %) 37.2 H [place] % (Auto) (4.8 - 9.0 %) 7.7 Eos % (Auto) (0.3 - 3.7 %) 0.8 Baso % (Auto) (0.0 - 2.0 %) 0.5 Neut # (Auto) (2.0 - 7.6 x10 3/uL) 7.13 Lymph # (Auto) (1.0 - 3.8 x10 3/uL) 4.96 H [place] # (Auto) (0.1 - 0.8 x10 3/uL) [...] Entered: 08/22/2019 1003 IMPRESSION: Normal radiograph. SL: [id number] Impression By: Krissy Sousa M.D. Point of [...] Status Admin Aspirin 0 .STK-MED ONE 08/21 936 DC PO Aspirin 324 MG X1ED STA 08/21 0932 DC 08/21 PO 08/21 0933 0940 Electrolytic, Caloric, And Carlitos Sig/Vince Start time Last Medication Dose Route Stop Time Status Admin Sodium Chloride 0 ASDIR PRN 08/21 0845 AC IV 08/22 0832 Patient Discharge Departure Vital Signs/Condition Vital Signs First Documented: Result Date Time Pulse Ox 100 08/21 0919 B/P 121/77 08/21 0919 B/P Mean 91 08/21 0919 O2 Delivery Room air 08/21 918 Temp 99.1 08/21 09 Pulse 115 08/21 0919 Resp 18 08/21 0819 Last Documented: Result Date Time Pulse Ox [...] No Known Home Medications at 1030 RPT #:[id number] END OF REPORT HCACL
[2023-11-22] MEDS ORDERED: LORazepam 2 MG/ML VIAL ONE (10:38)
[2023-11-22] MEDS ORDERED: ONDANSETRON 4 MG/2 ML VIAL ONE (10:38)
[2023-11-22] MEDS ORDERED: NA CHLORIDE 0.9% 1,000 ML ONE (10:39)
[2023-11-22 10:53] LABS: Absolute Basophils 0.1 K/uL (0-0.5); Absolute Lymphocytes (CBC) 1.9 K/uL (0.7-4.9); Absolute Monocytes 0.6 K/uL (0.1-1.3); Basophils % 0.5 % (0-1.3); Eosinophils % 0.2 % (0-4.4); Hematocrit 43.4 % (36.0-45.0); Lymphocytes % 15.2 % (15.3-44.8); MCH 25.8 pg (27.0-35.0); MCHC 32.3 g/dL (32.0-36.0); MCV 79.9 fL (80-100); MPV 6.9 fL (7.6-11.3); Monocytes % 4.4 % (3.3-12.3); Neutrophils % 79.7 % (41.7-73.7); Platelets 398 thou/uL (152-406); RBC Red Blood Cell Count 5.43 M/uL (3.86-4.86); Red Cell Distribution Width 15.4 % (12.1-15.2)
[2023-11-22 11:06] LABS: Albumin 3.1 g/dL (3.4-5.0); Albumin/Globulin Ratio 0.6 (1.1-1.8); Anion Gap 5.9 mEq/L (5.0-15.0); Bilirubin Total 0.3 mg/dL (0.2-1.0); Globulin 5.4 g/dL (2.3-3.5); Potassium 3.9 mEq/L (3.5-5.1); Protein, Total 8.5 g/dL (6.4-8.2)
--- NOTE | 2023-11-22 11:21 | EDPHYS ---
Physician Documentation [facility] Name: Goyo Solorio Age: 38 yrs Sex: Female : 1985 Arrival Date: 11/22/2023 Time: 09:13 Bed 12 Private MD: ED Physician Sean Del Cid HPI: 11/21 09:49 This 38 yrs old Female presents to ER via Unassigned with complaints of ec2 Abdominal Pain, Vomiting, Shaking. 09:49 Patient arrives today feeling unwell. States that she had 10 alcoholic beverages last ec2 night and states that she today she has having nausea and vomiting as well as tremulousness. Patient reports that she is not a daily drinker, states that she drinks socially. Patient reports LMP was 2 weeks ago, no urinary complaints. No history of pancreas pathology.. 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 - Infectious Disease History:: Denies. - Social history:: Smoking status: Patient reports the use of cigarette tobacco products, denies chronic smoking, but will smoke occasionally. ROS: 09:49 Constitutional: as per hpi ec2 Exam: 09:49 Constitutional: GEN: NAD Head: atraumatic Eyes: EOMI Ears: External ears are ec2 normal. CV: regular rate LUNGS: no respiratory distress ABD: non-distended, soft, generally tender, not guarding, not rigid SKIN: no evidence of rashes MSK: no evidence of trauma Vital Signs: 09:49 BP 112 / 82; Pulse 114; Resp 18; Temp 97.6; Pulse Ox 96% ; Weight 88 kg; Height 5 ft. 1 iw in. ; Pain 2/10; 11:16 Pulse 102; ec2 11:37 BP 110 / 79; Pulse 80; Resp 17; Pulse Ox 99% on R/A; rs5 09:49 Body Mass Index 36.66 (88.00 kg, 154.94 cm) iw 09:49 Pain Scale: Adult iw MDM: 09:45 Medical Screening Exam initiated ec2 09:49 Data reviewed: vital signs. ED course: Patient arrives today for evaluation of nausea ec2 and vomiting along with tremulousness. Examination remarkable for slightly anxious individual who has general abdominal TTP. Will obtain lab work, urine studies, treat the patient's symptoms. . 11:15 ED course: EKG independently reviewed and interpreted by me, shows sinus tachycardia, ec2 rate 102, no acute ST segment elevations, intervals are nonactionable. . 11/21 09:49 Order name: CBC with Diff; Complete Time: 11:18 ec2 11/21 09:49 Order name: CMP; Complete Time: 11:18 ec2 11/21 09:49 Order name: Lipase; Complete Time: 11:18 ec2 11/21 09:49 Order name: EKG - Nurse/Tech; Complete Time: 11:36 ec2 Administered Medications: 10:44 Drug: NS 0.9% IV 1000 ml IV at 1 bolus Per protocol; to be given as a bolus over 60 ap3 minutes Route: IV; Rate: 1 bolus; Site: left antecubital; 11:35 Follow up: IV Status: Order to discontinue infusion; IV Intake: 500ml rs5 11:44 Follow up: IV Status: Completed infusion iw 10:44 Drug: Ondansetron IVP 4 mg IVP once; over 2 minutes Route: IVP; Site: left antecubital; ap3 11:01 Follow up: Response: No adverse reaction rs5 11:36 Not Given (Patient Refused): [id number] mg IVP once; dilute with 10 mL 0.9% NaCl; rs5 give over 2 minutes 11:40 Not Given (Patient Refused): ativan1 mg IVP once rs5 Disposition Summary: 11/22/23 11:20 Discharge Ordered Notes: Location: Home ec2 Condition: Stable ec2 Diagnosis - Veisalgia ec2 Followup: ec2 - With: Private Physician - When: - Reason: Re-evaluation by your physician Discharge Instructions: - Discharge Summary Sheet ec2 - Alcohol Intoxication, [id number]-[id number] ec2 Forms: - Medication Reconciliation Form ec2 - Antibiotic Education ec2 - Prescription Opioid Use ec2 - Patient Portal Instructions ec2 - Leadership Thank You Letter ec2 Prescriptions: - Zofran 4 mg Oral Tablet - take 1 tablet ORAL route every 12 hours As needed; 20 tablet; Refills: 0, ec2 Product Selection Permitted - Pepcid 20 mg Oral Tablet - take 1 tablet ORAL route once daily for 10 days; 10 tablet; Refills: 0, Product ec2 Selection Permitted Signatures: Dispatcher [employer] Silva Garcia RN RN iw Shanon Patrick RN RN ap3 Salvador Trevino RN RN rs5 Sean Del Cid MD MD ec2
--- NOTE | 2023-11-22 11:21 | ER ---
Nurse's Notes [facility] Name: Goyo Solorio Age: 38 yrs Sex: Female : 1985 Arrival Date: 11/22/2023 Time: 09:13 Bed 12 Private MD: Diagnosis: Kathiarancho Presentation: 11/21 09:49 Chief complaint: Patient states: drank too much yesterday, has thrown up 8-9 times iw today , also has upper abd pain. Coronavirus screen: At this time, the client does not indicate any symptoms associated with coronavirus-19. Ebola Screen: No symptoms or risks identified at this time. Initial Sepsis Screen: Does the patient meet any 2 criteria? No. Patient's initial sepsis screen is negative. Does the patient have a suspected source of infection? No. Patient's initial sepsis screen is negative. Risk Assessment: Do you want to hurt yourself or someone else? Patient reports no desire to harm self or others. Onset of symptoms was November 22, 2023. 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 - Infectious Disease History:: Denies. - Social history:: Smoking status: Patient reports the use of cigarette tobacco products, denies chronic smoking, but will smoke occasionally. Screenin:[facility] ED Fall Risk Assessment (Adult) History of falling in the last 3 months, iw including since admission No falls in past 3 months (0 pts) Confusion or Disorientation No (0 pts) Intoxicated or Sedated No (0 pts) Impaired Gait No (0 pts) Mobility Assist Device Used No (0 pt) Altered Elimination No (0 pt) Score/Fall Risk Level 0 - 2 = Low Risk Oriented to surroundings, Maintained a safe environment. Abuse screen: Denies threats or abuse. Nutritional screening: No deficits noted. Tuberculosis screening: No symptoms or risk factors identified. Assessment: 11:13 Reassessment: Patient appears in no apparent distress at this time. iw 11:37 General: Appears in no apparent distress. comfortable, Behavior is calm, cooperative. rs5 Pain: Denies pain. Neuro: Level of Consciousness is awake, alert, obeys commands, Oriented to person, place, time, situation. Cardiovascular: Patient's skin is warm and dry. Respiratory: Airway is patent Respiratory effort is even, unlabored, Respiratory pattern is regular, symmetrical. GI: Bowel sounds present X 4 quads. Abd is soft and non tender X 4 quads. : No signs and/or symptoms were reported regarding the genitourinary system. EENT: No signs and/or symptoms were reported regarding the EENT system. Derm: Skin is intact, Skin is pink, warm \T\ dry. Musculoskeletal: Range of motion: intact in all extremities. Vital Signs: 09:49 BP 112 / 82; Pulse 114; Resp 18; Temp 97.6; Pulse Ox 96% ; Weight 88 kg; Height 5 ft. 1 iw in. ; Pain 2/10; 11:16 Pulse 102; ec2 11:37 BP 110 / 79; Pulse 80; Resp 17; Pulse Ox 99% on R/A; rs5 09:49 Body Mass Index 36.66 (88.00 kg, 154.94 cm) iw 09:49 Pain Scale: Adult iw ED Course: 09:15 Patient arrived in ED. mr 09:38 Sean Del Cid MD is Attending Physician. ec2 09:50 Triage completed. iw 09:51 Arm band placed on. iw 10:41 Lipase Sent. bc6 10:41 CMP Sent. bc6 10:41 CBC with Diff Sent. bc6 10:41 Initial lab(s) drawn, by me, sent to lab. Inserted saline lock: 24 gauge in left bc6 antecubital area, using aseptic technique. Blood collected. Flushed with 10 mL NS. 11:01 Silva Weaver, RN is Primary Nurse. iw 11:13 Patient has correct armband on for positive identification. iw 11:37 Provided Education on: discharge instruction s. rs5 11:37 No provider procedures requiring assistance completed. IV discontinued, intact, rs5 bleeding controlled, No redness/swelling at site. Pressure dressing applied. Administered Medications: 10:44 Drug: NS 0.9% IV 1000 ml IV at 1 bolus Per protocol; to be given as a bolus over 60 ap3 minutes Route: IV; Rate: 1 bolus; Site: left antecubital; 11:35 Follow up: IV Status: Order to discontinue infusion; IV Intake: 500ml rs5 11:44 Follow up: IV Status: Completed infusion iw 10:44 Drug: Ondansetron IVP 4 mg IVP once; over 2 minutes Route: IVP; Site: left antecubital; ap3 11:01 Follow up: Response: No adverse reaction rs5 11:36 Not Given (Patient Refused): fkdsxiklev10 mg IVP once; dilute with 10 mL 0.9% NaCl; rs5 give over 2 minutes 11:40 Not Given (Patient Refused): ativan1 mg IVP once rs5 Medication: 11:38 VIS not applicable for this client. rs5 Intake: 11:35 IV: 500ml; Total: 500ml. rs5 Outcome: 11:20 Discharge ordered by . ec2 11:37 Discharged to home ambulatory, rs5 11:37 Condition: stable 11:37 Discharge instructions given to patient, family, Instructed on discharge instructions, follow up and referral plans. medication usage, Demonstrated understanding of instructions, follow-up care, medications, Prescriptions given X 2, 11:42 Patient left the ED. bc6 Signatures: Lanie Mccarthy, Reg Reg mr Silva Weaver, JAVIER HERRERA iw Shanon Patrick RN RN ap3 Salvador Trevino RN RN rs5 Jada Armijo bc6 Sean Del Cid MD MD ec2 Corrections: (The following items were deleted from the chart) 11:38 11:37 GI: Abd is soft and non tender X 4 quads. rs5 rs5 11:39 10:45 Response: No adverse reaction rs5 rs5
[2023-11-22 13:03] VITALS: TEMP 97.6
[2023-11-22 13:07] VITALS: BP 110/79; O2SAT 99
--- NOTE | 2023-11-24 11:58 | EKG ---
Test Date: 2023-11-22 Test Time: 10:55:22 Insurance Agent: REGI MEASUREMENT RESULTS: Intervals: Rate: 102 FL: 162 QRSD: 82 QT: 360 QTc: 469 Parker: P: 58 FL: 162 QRS: 72 T: 37 INTERPRETIVE STATEMENTS: Sinus tachycardia Otherwise normal ECG Compared to ECG 11/15/2023 21:16:12 Sinus rhythm no longer present Electronically Signed On 11-24-23 11:53:12 CDT by Tadeo Sinclair
== END 2023-11-22 11:42 | disposition home or self-care (01) ==
LOC: ER 09:13
DX: F10.129 Alcohol abuse with intoxication, unspecified (principal); F17.210 Nicotine dependence, cigarettes, uncomplicated
CPT/HCPCS: 93005; 85025; 36415; 83690; 80053; J2405; J7030; 96361; 96374; 99284

== ENCOUNTER 2024-06-13 18:57 | Emergency (ER) | payer OTHER ==
--- OUTSIDE RECORDS SUMMARY | 2024-06-13 19:03 | XMS REPORT | Continuity of Care Document ---
Author Name Unknown Address [address] [facility] [place] [address] [facility] Address [address] [facility] [place] [address] Care Team Providers Care Ladle Watcher Name Role Phone Jared Torre Primary Care Physician [phone] ZEINAB VILLALOBOS Attending Clinician ZEINAB Kenney Attending Clinician DELMY Kapoor Attending Clinician UnavailDelmy Naik NP Attending Clinician [phone] Unknown, Attending Attending Clinician UnavailPAOLA Britt Attending Clinician Unavailable PAOLA REHMAN Attending Clinician Unavailable TYRESE BACA Attending Clinician Unavailable Nora Alcazar Attending Clinician [phone] JARED COLLADO Attending Clinician Unavailable PAMELA PRESLEY Attending Clinician UnavailPamela Clements Attending Clinician LAURA LOWE Attending Clinician Unavailable Lowe GREEN BUILDING ENGINEER, Laura Attending Clinician [phone] Drake Arias Attending Clinician Unavailable Jared Torre Attending Clinician [phone] Doctor Unassigned, [facility] [employer] Attending Clinician U fatuma Villalobos MD, Zeinab Attending Clinician [phone] NASEEM PATTERSON Attending Clinician Unavailable NASEEM PATTERSON Attending Clinician Unavailable Kel LUCIANO, Naseem Valdez Attending Clinician + [phone] Tyrese Nunn Attending Clinician [phone] Vickie Purvis Attending Clinician [phone] VICKIE VILLALOBOS Attending Clinician Unavailable ANALISA SUAREZ Attending Clinician Unavail able GUERRERO STAHL Attending Clinician Unav Srinivasa Sheridanchp Temp Attending Clinician Kia Guerrero Parrish MD Attending Clinician + Akinarron WHPAnalisa Attending Clinician + JULY RICE Attending Clinician Unavailable RAMON WILDER Attending Clinician UnaDeja Torres MA Attending Clinician Unavailtita e Mynor LUCIANO, Laura Attending Clinician + [phone] Unknown, Attending Attending Clinician Unavailab DEE Boucher Attending Clinician Unavailable Pgy3 Attending Clinician Unavailable Dee Huffman MD Attending Clinician [phone] Doctor Unassigned, [facility] [employer] Attending Clinician U Deja Waldrop CNM Attending Clinician [phone] DEJA ÁLVAREZ Attending Clinician UnavailKHANH Roberson Attending Clinician Unavailable Tyrese Nunn Attending Clinician [phone] Jared Torre Attending Clinician [phone] Dany Knox Attending Clinician DANY CARIAS Attending Clinician Unavailab RAMÓN Trejo Attending Clinician Unavailable Yan PA-C, Ramón Attending Clinician [phone] Pob, [facility] Main Attending Clinician UnavailLd COHEN, Shanita Call Attending Clinician [phone] Ramiro HERRERA, Janae Sunshine Attending Clinician Unavaila ble HIEN, Manuel JOLLEY Attending Clinician Unavailable Hien PAC, K Georgia Attending Clinician [phone] Lab, Ang - Db Attending Clinician Unavailable Shanon Beckham MD Attending Clinician [phone] Octavia GREEN BUILDING ENGINEEROumar Crowley Attending Clinician [phone] OUMAR DUDLEY Attending Clinician UnavailJuly Snider LVN Attending Clinician UnavaMARIA ISABEL Rivera Attending Clinician Unavailable Parviz GREEN BUILDING ENGINEER, Maria Isabel Attending Clinician [phone] GABRIELLE MARTÍNEZ Attending Clinician Unavailable Gabrielle Dillard Attending Clinician + [phone] Fernandez GREEN BUILDING ENGINEERPamela Attending Clinician + [phone] GERTRUDE MILLAN Attending Clinician UnavailMINOO Garcia Attending Clinician Unavaila JAG Fay Attending Clinician Unavailable Jag Magana DO Attending Clinician [phone] JOB KASPER Attending Clinician Unavailable Job Kasper MD Attending Clinician [phone] JIMENA MAYO Attending Clinician Unavailable Sarah LEES, Carine Attending Clinician [phone] NORA SANCHEZ Attending Clinician Unavailtita Sanchez GREEN BUILDING ENGINEERNora Attending Clinician [phone] Roger HERRERA, Leidy Attending Clinician Unavailable , [facility] Attending Clinician Unagosia CARVALHOP, Paris Attending Clinician [phone] Toby Richards MD Attending Clinician [phone] TOBY RICHARDS Attending Clinician Unavailable 1, [facility] Usg Room Attending Clinician Unavaila tonio Jiménez RN, Mike Attending Clinician Unavailab le Ultrasound, Ang-Mfm Attending Clinician Unavaila tonio Domingo MD, Jordan F Attending Clinician [phone] Juilo Da Silva APN Attending Clinician [phone] Radha HERRERA, Lynn Lemus Attending Clinician Unavailab brittany Jamil MD, Tracey Attending Clinician [phone] Yoshi Esparza MD Attending Clinician [phone] Bijan LEES, Minoo Lemus Attending Clinician + [phone] Only, Adc Test Attending Clinician Unavailable Kevan Beualieu MD Attending Clinician +[phone] [phone], [facility] Attending Clinician Unav MELODY Craig Attending Clinician Unavaila tonio Provider, [facility] Attending Clinician Un available Corazon GREEN BUILDING ENGINEER, Kvng Banks Attending Clinician [phone] Nurse, [facility] Attending Clinician Unava ilable UNKNOWN, ATTENDING Attending Clinician Unavailab birttany Rivera GREEN BUILDING ENGINEERSimba Crowley Attending Clinician [phone] Manuel STANFORD Admitting Clinician Unavailable GABRIELLE MARTÍNEZ Admitting Clinician Unavailable JIMENA MAYO Admitting Clinician Unavailable Payers Payer Name Policy Type Policy Number Effective Date Expirati on Date Source [facility] MEDICAID [id number] 2019 00:00:00 [facility] [id number] 2016 00:00:00 MEDICAID PENDING PENDING 2019 00:00:00 Problems Condition Name Condition Details Condition Category Status Onset Date Resolution Date Last Treatment Date Treating Clinician Comments Source Upper respirator y tract infection, unspecifie d type Upper respirator y tract infection, unspecifie d type Disease Active 2023-02 00:00: 00 [facility] Cellulitis of mouth Cellulitis of mouth Disease Active 2023-02 00:00: 00 [facility] Prediabete s Prediabete s Disease Active 11-02 00:00: 00 [facility] Insomnia, unspecifie d type Insomnia, unspecifie d type Disease Active 11-02 00:00: 00 [facility] Chronic constipati on Chronic constipati on Disease Active 9-26 00:00: 00 [facility] Irregular menstrual cycle Irregular menstrual cycle Disease Active 7 00:00: 00 [facility] Encounter for other general counseling or advice on contracept ion Encounter for other general counseling or advice on contracept ion Disease Active 7- 00:00: 00 [facility] Diverticul osis Diverticul osis Disease Active 06-26 00:00: 00 [facility] Herpes zoster without complicati on Herpes zoster without complicati on Disease Active 05-27 00:00: 00 [facility] Herpes zoster without complicati on Herpes zoster without complicati on Disease Active 05-27 00:00: 00 [facility] History of anxiety History of anxiety Disease Active 04-01 00:00: 00 [facility] Former smoker Former smoker Disease Active 04-01 00:00: 00 [facility] Obesity (BMI 35.0-39.9 without comorbidit y) Obesity (BMI 35.0-39.9 without comorbidit y) Disease Active 8- 00:00: 00 [facility] Dizziness Dizziness Disease Resolve d 6-08 00:00: 00 2023-06-22 00:00:00 2023-06-22 13:37:48 [facility] Left arm pain Left arm pain Disease Resolve d 4 00:00: 00 2023-06-22 00:00:00 2023-06-22 13:37:44 [facility] Positive D dimer Positive D dimer Disease Resolve d 4-20 00:00: 00 2023-06-22 00:00:00 2023-06-22 13:37:41 [facility] BMI 32.0-32.9, adult BMI 32.0-32.9, adult Disease Resolve d 2-23 00:00: 00 2023-06-22 00:00:00 2023-06-22 13:37:36 [facility] Chest pain, atypical Chest pain, atypical Disease Resolve d 2019-0 8-12 00:00: 00 2023-06-22 00:00:00 2023-06-22 13:37:19 [facility] Urinary tract infection without hematuria, site unspecifie d Urinary tract infection without hematuria, site unspecifie d Disease Resolve d 2021-0 7-07 00:00: 00 2021-12-20 00:00:00 2021-12-20 18:50:56 [facility] Vaginal discharge Vaginal discharge Disease Resolve d 2021-0 6-23 00:00: 00 2021-12-20 00:00:00 2021-12-20 18:50:53 [facility] Screen for STD (sexually transmitte d disease) Screen for STD (sexually transmitte d disease) Disease Resolve d 2021-0 5-04 00:00: 00 2021-12-20 00:00:00 2021-12-20 18:51:33 [facility] Absence of menstruati on Absence of menstruati on Disease Resolve d 2016-0 8-22 00:00: 00 2021-12-20 00:00:00 2021-12-20 18:50:57 [facility] Papanicola ou smear of cervix with low grade squamous intraepith elial lesion (LGSIL) Papanicola ou smear of cervix with low grade squamous intraepith elial lesion (LGSIL) Disease Resolve d 2014-0 7-24 00:00: 00 2021-12-20 00:00:00 2021-12-20 18:51:31 [facility] Hospital discharge follow-up Hospital discharge follow-up Disease Resolve d 2021-0 4-20 00:00: 00 2021-06-10 00:00:00 2021-06-10 14:08:40 [facility] Normal labor Normal labor Disease Resolve d 2020-1 0-19 00:00: 00 2021-06-10 00:00:00 2021-06-10 14:08:45 [facility] (normal spontaneou s vaginal delivery) (normal spontaneou s vaginal delivery) Disease Resolve d 2020-1 0-19 00:00: 00 2021-06-10 00:00:00 2021-06-10 14:08:48 [facility] History of delivery History of delivery Disease Resolve d 2020-0 2-23 00:00: 00 2021-06-10 00:00:00 2021-06-10 14:08:34 [facility] History of premature rupture of membranes (PROM) in previous , currently in first trimester History of premature rupture of membranes (PROM) in previous , currently in first trimester Disease Resolve d 2020-0 2-23 00:00: 00 2021-06-10 00:00:00 2021-06-10 14:08:36 [facility] 39 weeks gestation of 39 weeks gestation of Disease Resolve d 0 3-12 00:00: 00 2021-06-10 00:00:00 2021-06-10 14:08:19 [facility] Supervisio n of high risk in first trimester Supervisio n of high risk in first trimester Disease Resolve d 0 1-03 00:00: 00 2021-06-10 00:00:00 2021-06-10 14:09:05 [facility] Multiparit y Multiparit y Disease Resolve d 2016-0 8-22 00:00: 00 2021-06-10 00:00:00 2021-06-10 14:08:43 [facility] Vaginal bleeding in , first trimester Vaginal bleeding in , first trimester Disease Resolve d 2020-0 2-23 00:00: 00 2020-10-16 00:00:00 2020-10-16 14:42:58 [facility] Pain pelvic Pain pelvic Disease Resolve d 2020-0 2-23 00:00: 00 2020-10-16 00:00:00 2020-10-16 14:42:42 [facility] Anemia, antepartum , third trimester Anemia, antepartum , third trimester Disease Resolve d 2017-0 3-13 00:00: 00 2017-05-19 00:00:00 2017-05-19 23:13:46 [facility] Anxiety and depression Anxiety and depression Disease Active 2017-0 3-13 00:00: 00 2017-05-19 00:00:00 2017-05-19 23:14:13 Overview: Formattin g of this note might be different from the original. History of same,obs for same postpartu m [facility] Normal spontaneou s vaginal delivery Normal spontaneou s vaginal delivery Disease Resolve d 0 3-13 00:00: 00 2017-05-19 00:00:00 2017-05-19 23:14:05 [facility] Itching Itching Disease Resolve d 0 3-13 00:00: 00 2017-05-19 00:00:00 2017-05-19 23:14:09 [facility] Labor and delivery indication for care or interventi on Labor and delivery indication for care or interventi on Disease Resolve d 0 -12 00:00: 00 2017-05-19 00:00:00 2017-05-19 23:14:17 [facility] Positive GBS test Positive GBS test Disease Resolve d 0 2-28 00:00: 00 2017-05-19 00:00:00 2017-05-19 23:13:37 [facility] Insufficie nt care in third trimester Insufficie nt care in third trimester Disease Resolve d 0 1-03 00:00: 00 2017-05-19 00:00:00 2017-05-19 23:14:01 [facility] Decreased movements in third trimester, single or unspecifie d fetus Decreased movements in third trimester, single or unspecifie d fetus Disease Resolve d 0 2-13 00:00: 00 2017-04-19 00:00:00 2017-04-19 07:49:49 [facility] Supervisio n of high risk , antepartum , first trimester Supervisio n of high risk , antepartum , first trimester Disease Resolve d 2017-0 8-22 00:00: 00 2017-02-09 00:00:00 2017-02-09 11:18:25 [facility] Chlamydia trachomati s infection of lower genitourin danni sites Chlamydia trachomati s infection of lower genitourin danni sites Disease Resolve d 08-30 00:00: 00 2016-07-29 00:00:00 2016-07-29 16:09:38 [facility] Allergies, Adverse Reactions, Alerts Allergy Name Allergy Type Status Severity Reaction(s) Onset Date Inactive Date Treating Clinician Comments Source No Known Allergie s DA Active U 08-21 00:00: 00 [facility] No Known Allergie s DA Active U 2012-02 00:00: 00 [facility] NO KNOWN ALLERGIE S Drug Class Active [facility] Social History Social Habit Start Date Stop Date Quantity Comments Source [facility] Not [facility] History of Occupation [facility] Alcoholic beverage intake 2024-06-12 00:00:00 2024-06-12 00:00:00 Ex-drinker (finding) [facility] History of Social function 2023-11-03 00:00:00 2023-11-03 00:00:00 [facility] Cigarettes smoked current (pack per day) - Reported 2023-06-22 00:00:00 2023-06-22 00:00:00 [facility] Cigarette pack-years 2023-06-22 00:00:00 2023-06-22 00:00:00 [facility] Tobacco use and exposure 2023-06-22 00:00:00 2023-06-22 00:00:00 Smokeless tobacco non-user [facility] Tobacco Comment 2023-06-22 00:00:00 2023-06-22 00:00:00 smokes 2 x socially - [facility] Exposure to SARS-CoV-2 (event) 2022-02-05 00:00:00 2022-02-15 18:53:00 Not sure [facility] Education 2020-11-25 00:00:00 2020-11-25 00:00:00 13 [facility] Alcohol Comment 2020-04-01 00:00:00 2020-04-01 00:00:00 socially [facility] History SDOH Alcohol Frequency 2020-04-01 00:00:00 2020-04-01 00:00:00 99 [facility] History SDOH Alcohol Std Drinks 2020-04-01 00:00:00 2020-04-01 00:00:00 99 [facility] History SDOH Alcohol Binge 2020-04-01 00:00:00 2020-04-01 00:00:00 99 [facility] Alcohol intake 2019-08-19 00:00:00 2019-08-19 00:00:00 Current drinker of alcohol (finding) [facility] History of tobacco use 2016-08-28 00:00:00 Cigarette Smoker [facility] Sex assigned at 1985 00:00:00 1985 00:00:00 [facility] Smoking Status Start Date Stop Date Source Ex-smoker 2023-06-22 00:00:00 2023-06-22 00:00[facility] Medications Ordered Medication Name Filled Medication Name Start Date Stop Date Current Medication? Ordering Clinician Indication Dosage Frequency Signature (SIG) Comments Components Source promethazin e-dextromet horphan 6.25-15 mg/5 mL syrup 06-12 00:00: 00 Yes [id number] 5mL Take 5 mL by mouth 4 (four) times daily as needed for Cough. [facility] albuterol sulfate HFA 90 mcg/actuati on aerosol inhaler 06-12 00:00: 00 Yes [id number] 2{puff} Inhale 2 Puffs every 6 (six) hours as needed for Wheezing or Shortness of Breath. [facility] predniSONE 10 mg tablet 06-12 00:00: 00 06-18 04:59 :00 Yes [id number] 40mg Take 4 tablets by mouth in the morning for 5 days. [facility] chlorhexidi ne 0.12 % mouthwash 03-07 00:00: 00 Yes [id number] 15mL Swish and spit out 15 mL in the morning and 15 mL in the evening. [facility] ibuprofen 600 mg tablet 03-07 00:00: 00 Yes [id number] 600mg Take 1 tablet by mouth every 6 (six) hours as needed for Pain (scale 4-6). [facility] penicillin v potassium 500 mg tablet 03-07 00:00: 00 03-15 05:59 :00 No [id number] 500mg Take 1 tablet by mouth 4 (four) times daily for 7 days. [facility] ketorolac (TORADOL) injection 30 mg 2023-02 01:52: 00 01-26 01:55 :00 No [id number] 30mg 30 mg, Intramuscu lar, ONCE, 1 dose, On Nel 01/26/24 at 1999, Routine [facility] cefTRIAXone (ROCEPHIN) injection 1,000 mg 2023-02 01:25: 00 01-26 01:33 :00 No [id number] 1000mg 1,000 mg, Intramuscu lar, ONCE, 1 dose, On Nel 01/26/24 at 1930, [place], Reason for Anti-Infec tive: Documented Infection, Documented Infection Site: HEENT, Duration of Therapy: Other (see Comments) [facility] traMADoL 50 mg tablet 2023-02 00:00: 00 01-29 05:59 :00 No [id number] 50mg Take 1 tablet by mouth every 8 (eight) hours as needed for Pain (scale 7-10) for up to 3 days. Indication s: acute pain [facility] bromphenira mine-pseudo ephedrine-D M (BROMFED DM) 2-30-10 mg/5 mL syrup 2023-02 00:00: 00 02-02 05:59 :00 No [id number] 10mL Take 10 mL by mouth 4 (four) times daily as needed for Congestion /Allergies for up to 10 days. [facility] amoxicillin -clavulanat e (AUGMENTIN) 875-125 mg per tablet 2023-02 00:00: 00 01-30 05:59 :00 No [id number] 1{tbl} Take 1 tablet by mouth in the morning and 1 tablet in the evening. Do all this for 7 days. [facility] ibuprofen (IBU) tablet 800 mg 2023-02 16:00: 00 12-28 16:23 :00 No 800mg 800 mg, Oral, ONCE, 1 dose, On Nel 12/29/23 at 1000, [place] [facility] Nitrofurant oin&Nit. Macrocryst 100 mg capsule 2023-02 00:00: 00 Yes [id number] 100mg Take 1 capsule by mouth in the morning and 1 capsule in the evening. [facility] ibuprofen 800 mg tablet 2023-02 00:00: 00 03-07 00:00 :00 No [id number] 100 800mg Take 1 tablet by mouth 3 (three) times daily as needed for Pain (scale 4-6). [facility] medroxyPROG ESTERone (PROVERA) 5 mg tablet 2023-02 00:00: 00 01-03 05:59 :00 No [id number] 100 5mg Take 1 tablet by mouth in the morning and 1 tablet at noon and 1 tablet in the evening. Do all this for 5 days. [facility] ergocalcife rol, vitamin d2, 1,250 mcg (50,000 unit) capsule 2023-02 00:00: 00 Yes [id number] 32258V Take 1 capsule by mouth weekly. [facility] tirzepatide , weight loss, (ZEPBOUND) 2.5 mg/0.5 mL subcutaneou s injection pen [id number] 2023-02 00:00: 00 Yes [id number] 2.5mg inject 2.5 mg under the skin weekly. [facility] SERTraline (ZOLOFT) 50 mg tablet 2023-02 00:00: 00 Yes [id number] 50mg Take 1 tablet by mouth at bedtime. [facility] traZODone 50 mg tablet 2023-02 00:00: 00 Yes [id number] 50mg Take 1 tablet by mouth at bedtime. [facility] predniSONE 20 mg tablet 2023-02 00:00: 11-13 04:59 :00 No [id number] 40mg Take 2 tablets by mouth in the morning for 5 days. [facility] polyethylen e glycol [id number] 17 gram/dose powder 11-02 00:00: 00 Yes [id number] 17g Take 17 g by mouth 2 (two) times daily as needed for Constipati on. [facility] SERTraline (ZOLOFT) 50 mg tablet 11-02 00:00: 00 12-14 00:00 :00 No [id number] 50mg Take 1 tablet by mouth in the morning. [facility] traZODone 50 mg tablet 11-02 00:00: 00 12-14 00:00 :00 No [id number] 50mg Take 1 tablet by mouth at bedtime. [facility] norethindro ne 0.35 mg tablet 09-05 00:00: 00 Yes [id number] 1{tbl} Take 1 tablet by mouth in the morning. [facility] norethindro ne 0.35 mg tablet 06-21 00:00: 00 09-05 00:00 :00 No [id number] 1{tbl} Take 1 tablet by mouth in the morning. [facility] busPIRone 10 mg tablet 02-15 19:02: 28 Yes 10mg Take 10 mg by mouth as needed. [facility] azithromyci n (ZITHROMAX Z-MARICHUY) 250 mg tablet 02-15 00:00: 00 06-21 00:00 :00 No [id number] Z pack as directed [facility] benzonatate 200 mg capsule 02-15 00:00: 00 02-26 05:59 :00 No [id number] 200mg Take 1 capsule by mouth 3 (three) times daily as needed for Cough for up to 10 days. [facility] albuterol 90 mcg/actuati on inhaler 02-15 00:00: 00 02-26 05:59 :00 No [id number] 2{puff} Inhale 2 Puffs every 6 (six) hours as needed for Wheezing for up to 10 days. [facility] ampicillin 500 mg capsule 2021-02 2- 00:00: 00 06-21 00:00 :00 No [id number] 500mg Take 1 capsule by mouth every 6 (six) hours. [facility] ampicillin 500 mg capsule 2021-02 00:00: 00 01-01 05:59 :00 No [id number] 500mg Take 1 capsule by mouth every 6 (six) hours for 10 days. [facility] norethindro ne 0.35 mg tablet 2021-02 00:00: 00 06-21 00:00 :00 No [id number] 1{tbl} Take 1 tablet by mouth in the morning. [facility] metroNIDAZO LE 500 mg tablet 2021-02 00:00: 00 12-26 05:59 :00 No [id number] 500mg Take 1 tablet by mouth in the morning and 1 tablet in the evening. Do all this for 7 days. [facility] ampicillin 500 mg capsule 08-21 00:00: 00 09-01 04:59 :00 No [id number] 500mg Take 1 capsule by mouth 4 (four) times daily for 10 days. [facility] citalopram 10 mg tablet 08-19 00:00: 00 06-21 00:00 :00 No [id number] 10mg Take 1 tablet by mouth in the morning. [facility] ibuprofen 600 mg tablet 07-20 00:00: 00 06-21 00:00 :00 No [id number] 600mg Take 1 tablet by mouth every 6 (six) hours as needed for Pain (scale 4-6). [facility] busPIRone 10 mg tablet 07-15 17:04: 42 06-21 00:00 :00 No 10mg Take 1 tablet by mouth as needed. [facility] vit 33-iron-fol ic-dha (SELECT-OB + DHA) 29 mg iron-1 mg -250 mg combo pack 7-21 00:00: 00 06-10 00:00 :00 No 1{packe t} Take 1 Packet by mouth daily. [facility] cyclobenzap rine 5 mg tablet 8-14 00:00: 00 04-01 00:00 :00 No [id number] 4 5mg Take 1 tablet by mouth 2 (two) times daily as needed for Muscle Spasms. Can cause drowsiness . [facility] gabapentin 100 mg capsule 8-12 00:00: 00 04-01 00:00 :00 No [id number] 100mg Take 1 capsule by mouth 3 (three) times daily as needed (nerve pain). [facility] Immunizations Ordered Immunization Name Filled Immunization Name Date Status Comments Source TDAP 2020-09-15 00:00:00 Completed [facility] TDAP 2020-09-15 00:00:00 Completed [facility] TDAP 2020-09-15 00:00:00 Completed [facility] TDAP 2020-09-15 00:00:00 Completed [facility] TDAP 2020-09-15 00:00:00 Completed [facility] TDAP 2020-09-15 00:00:00 Completed [facility] TDAP 2020-09-15 00:00:00 Completed [facility] TDAP 2020-09-15 00:00:00 Completed [facility] TDAP 2020-09-15 00:00:00 Completed [facility] TDAP 2020-09-15 00:00:00 Completed [facility] TDAP 2020-09-15 00:00:00 Completed [facility] TDAP 2020-09-15 00:00:00 Completed [facility] TDAP 2020-09-15 00:00:00 Completed [facility] TDAP 2020-09-15 00:00:00 Completed [facility] TDAP 2020-09-15 00:00:00 Completed [facility] TDAP 2020-09-15 00:00:00 Completed [facility] TDAP 2020-09-15 00:00:00 Completed [facility] TDAP 2020-09-15 00:00:00 Completed [facility] TDAP 2020-09-15 00:00:00 Completed [facility] TDAP 2017-02-09 00:00:00 Completed [facility] TDAP 2017-02-09 00:00:00 Completed [facility] TDAP 2017-02-09 00:00:00 Completed [facility] TDAP 2017-02-09 00:00:00 Completed [facility] TDAP 2017-02-09 00:00:00 Completed [facility] TDAP 2017-02-09 00:00:00 Completed [facility] TDAP 2017-02-09 00:00:00 Completed [facility] TDAP 2017-02-09 00:00:00 Completed [facility] TDAP 2017-02-09 00:00:00 Completed [facility] TDAP 2017-02-09 00:00:00 Completed [facility] TDAP 2017-02-09 00:00:00 Completed [facility] TDAP 2017-02-09 00:00:00 Completed [facility] TDAP 2017-02-09 00:00:00 Completed [facility] TDAP 2017-02-09 00:00:00 Completed [facility] TDAP 2017-02-09 00:00:00 Completed [facility] TDAP 2017-02-09 00:00:00 Completed [facility] TDAP 2017-02-09 00:00:00 Completed [facility] TDAP 2017-02-09 00:00:00 Completed [facility] TDAP 2017-02-09 00:00:00 Completed [facility] TDAP 2007-02-07 00:00:00 Completed [facility] TDAP 2007-02-07 00:00:00 Completed [facility] TDAP 2007-02-07 00:00:00 Completed [facility] TDAP 2007-02-07 00:00:00 Completed [facility] TDAP 2007-02-07 00:00:00 Completed [facility] TDAP 2007-02-07 00:00:00 Completed [facility] TDAP 2007-02-07 00:00:00 Completed [facility] TDAP 2007-02-07 00:00:00 Completed [facility] TDAP 2007-02-07 00:00:00 Completed [facility] TDAP 2007-02-07 00:00:00 Completed [facility] TDAP 2007-02-07 00:00:00 Completed [facility] TDAP 2007-02-07 00:00:00 Completed [facility] TDAP 2007-02-07 00:00:00 Completed [facility] TDAP 2007-02-07 00:00:00 Completed [facility] TDAP 2007-02-07 00:00:00 Completed [facility] TDAP 2007-02-07 00:00:00 Completed [facility] TDAP 2007-02-07 00:00:00 Completed [facility] TDAP 2007-02-07 00:00:00 Completed [facility] TDAP 2007-02-07 00:00:00 Completed [facility] TDAP Unknown Completed [facility] TDAP Unknown Completed [facility] TDAP Unknown Completed [facility] TDAP Unknown Completed [facility] TDAP Unknown Completed [facility] TDAP Unknown Completed [facility] TDAP Unknown Completed [facility] TDAP Unknown Completed [facility] TDAP Unknown Completed [facility] TDAP Unknown Completed [facility] TDAP Unknown Completed [facility] TDAP Unknown Completed [facility] TDAP Unknown Completed [facility] TDAP Unknown Completed [facility] TDAP Unknown Completed [facility] Vital Signs Vital Name Observation Time Observation Value Comments S ource Systolic blood pressure 2024-06-12 15:52:00 120 mm[Hg] [place] [facility] Diastolic blood pressure 2024-06-12 15:52:00 79 mm[Hg] [place] [facility] Heart rate 2024-06-12 15:52:00 92 /min [facility] Body temperature 2024-06-12 15:52:00 36.89 Brigitte [facility] Respiratory rate 2024-06-12 15:52:00 16 /min [facility] Body height 2024-06-12 15:52:00 154.9 cm per pt [facility] Body weight 2024-06-12 15:52:00 90.351 kg [facility] BMI 2024-06-12 15:52:00 37.64 kg/m2 [facility] Oxygen saturation in Arterial blood by Pulse oximetry 2024-06-12 15:52:00 97 /min [facility] Systolic blood pressure 2024-03-07 22:29:00 128 mm[Hg] [facility] Diastolic blood pressure 2024-03-07 22:29:00 86 mm[Hg] [facility] Heart rate 2024-03-07 22:29:00 89 /min [facility] Body temperature 2024-03-07 22:29:00 37.11 Brigitte [facility] Respiratory rate 2024-03-07 22:29:00 14 /min [facility] Body height 2024-03-07 22:29:00 154.9 cm [facility] Body weight 2024-03-07 22:29:00 90.992 kg [facility] BMI 2024-03-07 22:29:00 37.90 kg/m2 [facility] Oxygen saturation in Arterial blood by Pulse oximetry 2024-03-07 22:29:00 97 /min [facility] Systolic blood pressure 2024-01-27 01:08:00 116 mm[Hg] [facility] Diastolic blood pressure 2024-01-27 01:08:00 81 mm[Hg] [facility] Heart rate 2024-01-27 01:08:00 83 /min [facility] Body temperature 2024-01-27 01:08:00 36.33 Brigitte [facility] Respiratory rate 2024-01-27 01:08:00 14 /min [facility] Body height 2024-01-27 01:08:00 154.9 cm [facility] Body weight 2024-01-27 01:08:00 90.629 kg [facility] BMI 2024-01-27 01:08:00 37.75 kg/m2 [facility] Oxygen saturation in Arterial blood by Pulse oximetry 2024-01-27 01:08:00 98 /min [facility] Systolic blood pressure 2024-01-23 22:16:00 116 mm[Hg] [facility] Diastolic blood pressure 2024-01-23 22:16:00 72 mm[Hg] [facility] Heart rate 2024-01-23 22:16:00 105 /min [facility] Body temperature 2024-01-23 22:16:00 37.44 Brigitte [facility] Respiratory rate 2024-01-23 22:16:00 18 /min [facility] Body height 2024-01-23 22:16:00 154.9 cm [facility] Body weight 2024-01-23 22:16:00 89.359 kg [facility] BMI 2024-01-23 22:16:00 37.22 kg/m2 [facility] Oxygen saturation in Arterial blood by Pulse oximetry 2024-01-23 22:16:00 96 /min [facility] Systolic blood pressure 2024-01-19 16:36:00 104 mm[Hg] [facility] Diastolic blood pressure 2024-01-19 16:36:00 72 mm[Hg] [facility] Heart rate 2024-01-19 16:36:00 94 /min [facility] Body temperature 2024-01-19 16:36:00 37 Brigitte [facility] Respiratory rate 2024-01-19 16:36:00 18 /min [facility] Body height 2024-01-19 16:36:00 154.9 cm [facility] Body weight 2024-01-19 16:36:00 89.359 kg [facility] BMI 2024-01-19 16:36:00 37.22 kg/m2 [facility] Systolic blood pressure 2023-12-29 17:50:00 108 mm[Hg] [facility] Diastolic blood pressure 2023-12-29 17:50:00 83 mm[Hg] [facility] Heart rate 2023-12-29 17:50:00 80 /min [facility] Body temperature 2023-12-29 17:50:00 36.61 Brigitte [facility] Respiratory rate 2023-12-29 17:50:00 16 /min [facility] Oxygen saturation in Arterial blood by Pulse oximetry 2023-12-29 17:50:00 98 /min [facility] Body height 2023-12-29 15:08:00 154.9 cm [facility] Body weight 2023-12-29 15:08:00 89.359 kg [facility] BMI 2023-12-29 15:08:00 37.22 kg/m2 [facility] Systolic blood pressure 2023-12-15 21:55:00 93 mm[Hg] [facility] Diastolic blood pressure 2023-12-15 21:55:00 60 mm[Hg] [facility] Heart rate 2023-12-15 21:55:00 100 /min [facility] Respiratory rate 2023-12-15 21:55:00 18 /min [facility] Body height 2023-12-15 21:55:00 154.9 cm [facility] Body weight 2023-12-15 21:55:00 89.676 kg [facility] BMI 2023-12-15 21:55:00 37.36 kg/m2 [facility] Oxygen saturation in Arterial blood by Pulse oximetry 2023-12-15 21:55:00 96 /min [facility] Systolic blood pressure 2023-11-08 15:48:00 112 mm[Hg] [facility] Diastolic blood pressure 2023-11-08 15:48:00 75 mm[Hg] [facility] Heart rate 2023-11-08 15:48:00 95 /min [facility] Body temperature 2023-11-08 15:48:00 36.89 Brigitte [facility] Respiratory rate 2023-11-08 15:48:00 20 /min [facility] Body height 2023-11-08 15:48:00 154.9 cm [facility] Body weight 2023-11-08 15:48:00 89.495 kg [facility] BMI 2023-11-08 15:48:00 37.28 kg/m2 [facility] Oxygen saturation in Arterial blood by Pulse oximetry 2023-11-08 15:48:00 96 /min [facility] Systolic blood pressure 2023-11-03 20:19:00 118 mm[Hg] [facility] Diastolic blood pressure 2023-11-03 20:19:00 77 mm[Hg] [facility] Heart rate 2023-11-03 20:19:00 113 /min [facility] Body height 2023-11-03 20:19:00 154.9 cm [facility] Body weight 2023-11-03 20:19:00 89.585 kg [facility] BMI 2023-11-03 20:19:00 37.32 kg/m2 [facility] Oxygen saturation in Arterial blood by Pulse oximetry 2023-11-03 20:19:00 97 /min [facility] Systolic blood pressure 2023-09-06 15:20:00 125 mm[Hg] [facility] Diastolic blood pressure 2023-09-06 15:20:00 80 mm[Hg] [facility] Heart rate 2023-09-06 15:20:00 93 /min [facility] Body temperature 2023-09-06 15:20:00 36.72 Brigitte [facility] Body height 2023-09-06 15:20:00 154.9 cm [facility] Body weight 2023-09-06 15:20:00 87.998 kg [facility] BMI 2023-09-06 15:20:00 36.66 kg/m2 [facility] Systolic blood pressure 2023-06-22 12:10:00 120 mm[Hg] [facility] Diastolic blood pressure 2023-06-22 12:10:00 85 mm[Hg] [facility] Heart rate 2023-06-22 12:10:00 89 /min [facility] Body temperature 2023-06-22 12:10:00 36.5 Brigitte [facility] Respiratory rate 2023-06-22 12:10:00 29 /min [facility] Body height 2023-06-22 12:10:00 154.9 cm [facility] Body weight 2023-06-22 12:10:00 86.183 kg [facility] BMI 2023-06-22 12:10:00 35.90 kg/m2 [facility] Systolic blood pressure 2022-02-16 01:01:00 124 mm[Hg] [facility] Diastolic blood pressure 2022-02-16 01:01:00 87 mm[Hg] [facility] Heart rate 2022-02-16 01:01:00 94 /min [facility] Body temperature 2022-02-16 01:01:00 37.33 Brigitte [facility] Respiratory rate 2022-02-16 01:01:00 17 /min [facility] Body height 2022-02-16 01:01:00 154.9 cm [facility] Body weight 2022-02-16 01:01:00 82.781 kg [facility] BMI 2022-02-16 01:01:00 34.48 kg/m2 [facility] Oxygen saturation in Arterial blood by Pulse oximetry 2022-02-16 01:01:00 100 /min [facility] Systolic blood pressure 2022-01-08 19:57:00 123 mm[Hg] [facility] Diastolic blood pressure 2022-01-08 19:57:00 78 mm[Hg] [facility] Heart rate 2022-01-08 19:57:00 103 /min [facility] Body temperature 2022-01-08 19:57:00 36 Brigitte [facility] Respiratory rate 2022-01-08 19:57:00 18 /min [facility] Body height 2022-01-08 19:57:00 154.9 cm [facility] Body weight 2022-01-08 19:57:00 82.056 kg [facility] BMI 2022-01-08 19:57:00 34.18 kg/m2 [facility] Systolic blood pressure 2021-12-18 20:33:00 110 mm[Hg] [facility] Diastolic blood pressure 2021-12-18 20:33:00 70 mm[Hg] [facility] Heart rate 2021-12-18 20:33:00 96 /min [facility] Body temperature 2021-12-18 20:33:00 36.56 Brigitte [facility] Respiratory rate 2021-12-18 20:33:00 17 /min [facility] Body height 2021-12-18 20:33:00 154.9 cm [facility] Body weight 2021-12-18 20:33:00 79.742 kg [facility] BMI 2021-12-18 20:33:00 33.22 kg/m2 [facility] Procedures Procedure Date / Time Performed Performing Clinician Source POCT TEST 2024-03-07 22:48:00 Yolanda Gallegos [facility] POCT SARS-COV-2 ANTIGEN (BINAX NOW) 2024-03-07 22:48:00 Khanh Gallegos [facility] POCT MOLECULAR FLU 2024-03-07 22:39:00 Aashish Presley [facility] POCT MOLECULAR STREP 2024-03-07 22:35:00 Mookie Presley [facility] POCT MOLECULAR FLU 2024-01-23 22:16:00 Jared Collado [facility] POCT MOLECULAR STREP 2024-01-23 22:13:00 Jared Collado [facility] CBC WITH DIFF 2023-12-29 16:20:00 Naseem Patterson [facility] URINALYSIS 2023-12-29 16:20:00 Naseem Patterson [facility] POCT TEST 2023-12-29 16:20:00 Naseem Patterson [facility] POCT MOLECULAR STREP 2023-11-08 15:52:00 Unknown, Ilir mckeon [facility] POCT TEST 2023-06-22 00:00:00 July Rice [facility] DISCLOSURE AND CONSENT, MEDICAL AND SURGICAL PROCEDURES 2022-01-08 06:01:00 Doctor Unassigned, [facility] HCV ANTIBODY 2021-12-18 21:53:00 [facility] 2021-12-18 21:53:00 Deja Álvarez [facility] HIV 1/2 AG-AB WITH REFLEX 2021-12-18 21:53:00 Deja Álvarez [facility] PAP SMEAR-LIQUID BASED-CP 2021-12-18 21:53:00 Deja Álvarez [facility] GALV ONLY - SYPHILIS IGG/IGM 2021-12-18 21:53:00 Deja Álvarez [facility] URINE CULTURE 2021-12-18 21:53:00 Deja Álvarez [facility] GC & CHLAMYDIA AMPLIFIED ASSAY 2021-12-18 21:53:00 Deja Álvarez [facility] HIGH RISK HPV-THIN PREP 2021-12-18 21:53:00 Deja Álvarez [facility] TRICHOMONAS AMPLIFIED ASSAY 2021-12-18 21:53:00 Deja Álvarez [facility] POCT TEST 2021-12-18 00:00:00 Nidhi Álvarez [facility] POCT URINALYSIS W/O SPECIFIC GRAVITY 2021-12-18 00:00:00 Deja Álvarez [facility] NOTICE OF PRIVACY PRACTICES 2020-11-25 18:05:51 Doctor Unassigned, [facility] CONSENT/REFUSAL FOR DIAGNOSIS AND TREATMENT 2020-11-25 18:05:16 Doctor Unassigned, [facility] Encounters Start Date/Time End Date/Time Encounter Type Admission Type Attending [facility] Care Facility Care Department Encounter ID Source 2020-12-07 15:42:49 Emergency [facility] [id number] [facility] 2020-12-07 01:14:36 Emergency [facility] [id number] [facility] 2020-12-05 06:56:18 Emergency [facility] [id number] [facility] 2020-12-05 06:14:29 Emergency [facility] [id number] [facility] 2024-06-12 10:40:00 2024-06-12 11:24:44 Outpatient R GEORGEDELMY [facility] [id number] [facility] 2024-06-12 10:40:00 2024-06-12 11:24:44 Urgent Care GeorgeDelmy chau Davon, Attending [facility] 1..840.114 350.1.13.10 4.2.7.2.686 [id number] [facility] 2020-11-24 00:00:00 2024-03-24 02:52:50 Orders Only Nora Sanchez [facility] DRAFTING TE[employer] [facility] 1..840.114 350.1.13.10 4.2.7.2.686 [id number] [facility] 2024-03-19 16:00:00 2024-03-19 16:00:00 Outpatient R TYRESE BACA [facility] [id number] [facility] 2024-03-14 14:30:00 2024-03-14 14:30:00 Outpatient R JARED COLLADO [facility] [id number] [facility] 2024-03-07 16:20:00 2024-03-07 17:16:43 Outpatient R PAMELA PRESLEY [facility] [id number] [facility] 2024-03-07 16:20:00 2024-03-07 17:16:43 Urgent Care Pamela Presley, [facility]ending [facility] 1..840.114 350.1.13.10 4.2.7.2.686 [id number] [facility] 2024 19:00:00 2024 19:35:31 Outpatient R LAURA LOWE [facility] [id number] [facility] 2024 19:00:00 2024 19:35:31 Urgent Care Laura Lowe Unknown, Attending [facility] [id number] 350.1.13.10 4.2.7.2.686 [id number] [facility] 2024-01-25 00:00:00 2024-01-25 00:00:00 Outpatient R ADRIAN-VANESA S, ZEINAB ADRIAN-VANESA S, ZEINAB [facility] [id number] [facility] 2024-01-23 16:45:00 2024-01-23 17:00:00 Manager Investigations Visit Lab, Ang - Db Jared Collado Lab, Ang - Db [facility] [id number] 350.1.13.10 4.2.7.2.686 [id number] [facility] 2024-01-23 16:00:00 2024-01-23 16:43:00 Outpatient R JARED COLLADO [facility] [id number] [facility] 2024-01-23 16:00:00 2024-01-23 16:43:00 Office Visit Jared Collado [facility] [id number] 350.1.13.10 4.2.7.2.686 [id number] [facility] 2024-01-23 13:00:00 2024-01-23 13:00:00 Outpatient R [facility] [id number] [facility] 2023-12-16 00:00:00 2024-01-21 18:22:36 Patient Secure Msg Doctor Unassigned, [facility] Doctor Unassigned, [facility] 1.2.840.114 350.1.13.10 4.2.7.2.686 [id number] [facility] 2024-01-19 10:30:00 2024-01-19 11:06:19 Outpatient R KATARINA Simeon, ZEINABMELYSSA Simeon, [facility] [id number] [facility] 2024-01-19 10:30:00 2024-01-19 11:06:19 Office Visit Katarina simeon Zeinab [facility] 1.840.114 350.1.13.10 4.2.7.2.686 [id number] [facility] 2023-12-29 09:10:00 2023-12-29 11:53:00 Emergency X NASEEM PATTERSON ERICCA [facility] ERT [id number] [facility] 2023-12-29 09:10:00 2023-12-29 11:53:00 Emergency Naseem Patterson [facility] 1..840.114 350.1.13.10 4.2.7.2.686 [id number] [facility] 2023-12-19 00:00:00 2023-12-19 09:42:25 Patient Secure Msg Doctor Unassigned, [facility] Doctor Unassigned, [facility] 1..840.114 350.1.13.10 4.2.7.2.686 [id number] [facility] 2023-12-15 16:45:00 2023-12-15 17:00:00 Manager Investigations Visit Lab, Tyrese Mckinnon Lab, Drake Jose [facility] 1.2.840.114 350.1.13.10 4.2.7.2.686 [id number] [facility] 2023-12-15 16:45:00 2023-12-15 16:45:00 Outpatient R TYRESE BACA [facility] [id number] [facility] 2023-12-15 16:00:00 2023-12-15 16:30:00 [facility] 1..840.114 350.1.13.10 4.2.7.2.686 [id number] [facility] 2023-12-13 16:30:00 2023-12-13 16:30:00 Outpatient R TYRESE BACA [facility] [id number] [facility] [facility] 2023-12-07 09:30:00 2023-12-07 09:30:00 Outpatient R [facility] [id number] [facility] 2023-11-08 00:00:00 2023-11-09 09:33:55 Patient [facility] MED[facility] OFF[facility] BUILD[facility] 1.2.840.114 350.1.13.10 4.2.7.2.686 [id number] [facility] 2023-11-08 10:20:00 2023-11-08 10:40:00 Urgent Care Vickie Villalobos Unknown, Attending [facility] MED[facility] OFF[facility] BUILD[facility] 1.2.840.114 350.1.13.10 4.2.7.2.686 [id number] [facility] 2023-11-08 10:20:00 2023-11-08 10:20:00 Outpatient R VICKIE VILLALOBOS [facility] [id number] [facility] 2023-11-04 11:00:00 2023-11-04 11:15:00 Manager Investigations Visit Lab, Drake RayEaston villaseñora Lab, Drake Jose [facility] 1.2.840.114 350.1.13.10 4.2.7.2.686 [id number] [facility] 2023-11-04 11:00:00 2023-11-04 11:00:00 Outpatient R TYRESE BACA [facility] [id number] [facility] 2023-11-03 15:30:00 2023-11-03 15:54:44 Outpatient R TYRESE BACA [facility] [id number] [facility] 2023-11-03 15:30:00 2023-11-03 15:54:44 [facility] MEDICAL OFF[facility] BUILDING 1..840.114 350.1.13.10 4.2.7.2.686 [id number] [facility] 2023-11-01 16:15:45 2023-11-01 16:15:45 Outpatient [facility] [address] 2023-10-28 13:31:52 2023-10-28 13:31:52 Outpatient [facility] [address] 2023-09-06 10:30:00 2023-09-06 11:01:05 Outpatient R GUERRERO STEWART [facility] [id number] [facility] 2023-09-06 10:30:00 2023-09-06 11:01:05 Office Visit Provider, SrinivasaRmchp Guerrero Bedoya [facility] DRAFTING TEACHER [facility] MATERNAL & [facility] 1..840.114 350.1.13.10 4.2.7.2.686 [id number] [facility] 2023-06-22 00:00:00 2023-06-22 08:13:41 Letter (Out) Analisa Suarez [facility] DRAFTING TE[employer]ER [facility] & CHILD [facility] 1.2.840.114 350.1.13.10 4.2.7.2.686 [id number] [facility] 2023-06-22 06:45:00 2023-06-22 08:09:35 Outpatient JULY ANTONIO [facility] [id number] [facility] 2023-06-22 06:45:00 2023-06-22 08:09:35 Office Visit Provider, Ang-Rmchp Temp Analisa Suarez July [facility] DRAFTING TEACHER [facility] & CHILD [facility] 1.2.840.114 350.1.13.10 4.2.7.2.686 [id number] [facility] 2023-03-21 13:20:00 2023-03-21 13:20:00 Outpatient R [facility] [id number] [facility] 2022-10-26 17:46:44 2022-10-26 17:46:44 Outpatient [facility] [id number] Hung 2022-09-01 00:00:00 2022-09-01 00:00:00 Telephone Deja Strong [facility] 1.2.840.114 350.1.13.10 4.2.7.2.686 [id number] [facility] 2022-04-16 14:00:00 2022-04-16 14:00:00 Outpatient TYRESE TURNER [facility] [id number] [facility] 2022-03-31 15:30:00 2022-03-31 15:30:00 Outpatient JARED DOUGLAS [facility] [id number] [facility] 2022-03-23 10:30:00 2022-03-23 10:30:00 Outpatient JARED DOUGLAS [facility] [id number] [facility] 2022-03-22 09:30:00 2022-03-22 09:30:00 Outpatient R JARED COLLADO [facility] [id number] [facility] 2022-02-15 18:40:00 2022-02-15 19:00:00 Urgent Care Laura Lowe Unknown, Attending [facility] EMILIANO?[facility] 1..114 350.1.13.10 4.2.7.2.686 [id number] [facility] 2022-02-15 18:40:00 2022-02-15 18:40:00 Outpatient R LAURA LOWE [facility] [id number] [facility] 2022-01-08 13:30:00 2022-01-08 15:04:40 Outpatient DEE ROBLERO [facility] [id number] [facility] 2022-01-08 13:30:00 2022-01-08 15:04:40 Office Visit Pgy3 Dee Huffman [facility] 1.114 350.1.13.10 4.2.7.2.686 [id number] [facility] 2022-01-08 00:00:00 2022-01-08 00:00:00 Orders Only Doctor Unassigned, [employer] [facility] 1.114 350.1.13.10 4.2.7.2.686 [id number] [facility] 2022-01-07 00:00:00 2022-01-07 00:00:00 Case Management Deja Álvarez [facility] DRAFTING TEACHER [facility] MATERNAL & [facility] 1..114 350.1.13.10 4.2.7.2.686 [id number] [facility] 2022-01-07 00:00:00 2022-01-07 00:00:00 Telephone Deja Álvarez [facility] DRAFTING TEACHER [facility] MATERNAL & CHILD [facility] 1.2.840.114 350.1.13.10 4.2.7.2.686 [id number] [facility] 2022-01-05 00:00:00 2022-01-05 00:00:00 Refill Preeti Deja Lemus [facility] DRAFTING TE[employer]ER [facility] & CHILD [facility] 1.2.840.114 350.1.13.10 4.2.7.2.686 [id number] [facility] 2021-12-21 00:00:00 2021-12-21 00:00:00 Case Management Preeti Deja [facility] 1.2.840.114 350.1.13.10 4.2.7.2.686 [id number] [facility] 2021-12-18 14:15:00 2021-12-18 15:30:31 Outpatient DEJA YOUSIF [facility] [id number] [facility] 2021-12-18 14:15:00 2021-12-18 15:30:31 Office Visit Provider, Drake-Rmchp Deja Jane [facility] DRAFTING TE[employer]ER [facility] CHILD [facility] 1..840.114 350.1.13.10 4.2.7.2.686 [id number] [facility] 2021-09-28 11:00:00 2021-09-28 11:00:00 Outpatient R JARED COLLADO [facility] [id number] [facility] 2021-09-24 13:45:00 2021-09-24 13:45:00 Outpatient KHANH PATEL [facility] [id number] [facility] 2021-09-18 09:30:00 2021-09-18 09:30:00 Outpatient TYRESE TURNER [facility] [id number] [facility] 2021-09-01 15:30:00 2021-09-01 15:30:00 Outpatient R JARED COLLADO [facility] [id number] [facility] 2021-08-28 00:00:00 2021-08-28 00:00:00 Patient Secure Tyrese Ospina [facility] EMILIANO[facility] 1..840.114 350.1.13.10 4.2.7.2.686 [id number] [facility] 2021-08-24 00:00:00 2021-08-24 00:00:00 Abstract Tobias Jared [facility] EMILIANO?[facility] MEDICAL OFFICE BUILDING 1.840.114 350.1.13.10 4.2.7.2.686 [id number] [facility] 2021-08-21 00:00:00 2021-08-21 00:00:00 Telephone Analisa Suarez [facility] DRAFTING TEACHER [facility] MATERNAL & [facility] 1.840.114 350.1.13.10 4.2.7.2.686 [id number] [facility] 2021-08-19 16:00:00 2021-08-19 16:00:00 Outpatient R JARED COLLADO [facility] [id number] [facility] 2021-08-19 00:00:00 2021-08-19 00:00:00 Refill Tobias Jared [facility] EMILIANO?[facility] MEDICAL OFFICE BUILDING 1.840.114 350.1.13.10 4.2.7.2.686 [id number] [facility] 2021-08-19 00:00:00 2021-08-19 00:00:00 Refill Dany Carias [facility] DRAFTING TE[employer]ER [facility] MATERNAL & CHILD [facility] 1.840.114 350.1.13.10 4.2.7.2.686 [id number] [facility] 2021-08-19 00:00:00 2021-08-19 00:00:00 Refill Doctor Unassigned, [facility] [employer] [facility] EMILIANO?[facility] 1..840.114 350.1.13.10 4.2.7.2.686 [id number] [facility] 2021-08-17 00:00:00 2021-08-17 00:00:00 Patient Secure Carias, Dany Banks [facility] DRAFTING TEACHER [facility] & CHILD [facility] 1..840.114 350.1.13.10 4.2.7.2.686 [id number] 107 [id number] [facility] 2021-08-13 14:15:00 2021-08-13 16:02:04 Outpatient R DANY CARIAS [facility] [id number] [facility] 2021-08-13 14:15:00 2021-08-13 16:02:04 Office Visit Dany Carias [facility] DRAFTING TEACHER [facility] 1..840.114 350.1.13.10 4.2.7.2.686 [id number] 107 [id number] [facility] 2021-08-13 14:15:00 2021-08-13 14:15:00 Outpatient R DANY CARIAS [facility] [id number] [facility] 2021-08-12 00:00:00 2021-08-12 00:00:00 Patient Secure CariasDany [facility] DRAFTING TEACHER [facility] 1..840.114 350.1.13.10 4.2.7.2.686 [id number] [facility] 2021-08-07 16:00:00 2021-08-07 16:00:00 Outpatient JARED DOUGLAS [facility] [id number] [facility] 2021-08-04 00:00:00 2021-08-04 00:00:00 Telephone Dany Carias [facility] DRAFTING TE[employer]ER [facility] & CHILD [facility] 1.2840.114 350.1.13.10 4.2.7.2.686 [id number] 107 [id number] [facility] 2021-08-04 00:00:00 2021-08-04 00:00:00 Patient Secure g Jared Collado [facility] EMILIANO?[facility] 1.0.114 350.1.13.10 4.2.7.2.686 [id number] [facility] 2021-08-04 00:00:00 2021-08-04 00:00:00 Patient Secure g Dayn Carias [facility] DRAFTING TEACHER [facility] CHILD [facility] 1.2840.114 350.1.13.10 4.2.7.2.686 [id number] 107 [id number] [facility] 2021-08-03 00:00:00 2021-08-03 00:00:00 Telephone Dany Carias [facility] DRAFTING TEACHER [facility] CHILD [facility] 1.2840.114 350.1.13.10 4.2.7.2.686 [id number] [facility] 2021-08-03 00:00:00 2021-08-03 00:00:00 Patient Secure Msg Dany Carias [facility] DRAFTING TEACHER [facility] CHILD [facility] 1.2840.114 350.1.13.10 4.2.7.2.686 [id number] 107 [id number] [facility] 2021-08-03 00:00:00 2021-08-03 00:00:00 Patient Secure Msg Dany Carias [facility] DRAFTING TEACHER [facility] & CHILD [facility] 1.2840.114 350.1.13.10 4.2.7.2.686 [id number] [facility] 2021-07-31 11:30:00 2021-07-31 11:30:00 Outpatient R JARED COLLADO [facility] [id number] [facility] 2021-07-30 15:45:00 2021-07-30 16:31:25 Outpatient R DANY CARIAS [facility] [id number] [facility] 2021-07-30 15:45:00 2021-07-30 16:31:25 Office Visit Dany Carias [facility] DRAFTING TEACHER [facility] MATERNAL & [facility] 1..840.114 350.1.13.10 4.2.7.2.686 [id number] [facility] 2021-07-29 13:30:00 2021-07-29 13:30:00 Outpatient Jocelyn ELDAJARED Lemus [facility] [id number] [facility] 2021-07-29 00:00:00 2021-07-29 00:00:00 Patient Secure Msg Doctor Unassigned, [facility] [facility] MEDICAL OFFICE BUILDING 1..840.114 350.1.13.10 4.2.7.2.686 [id number] [facility] 2021-07-29 00:00:00 2021-07-29 00:00:00 Patient Secure g Jared Collado [facility] MEDICAL OFFICE BUILDING 1..840.114 350.1.13.10 4.2.7.2.686 [id number] [facility] 2021-07-28 16:30:00 2021-07-28 17:03:47 Outpatient RAMÓN PAN [facility] [id number] [facility] 2021-07-28 16:30:00 2021-07-28 17:03:47 Office Visit Ramón Heredia [facility] EMILIANO?[facility] 1.2.840.114 350.1.13.10 4.2.7.2.686 [id number] [facility] 2021-07-28 16:45:00 2021-07-28 17:00:00 Manager Investigations Visit Pob, Adc Lab Main Yan [facility] PROFESSIO NAL BUILDING 1.2840.114 350.1.13.10 4.2.7.2.686 [id number] [facility] 2021-07-28 16:45:00 2021-07-28 16:45:00 Outpatient RAMÓN PAN [facility] [id number] [facility] 2021-07-28 00:00:00 2021-07-28 00:00:00 Telephone Shanita Simon [facility] DRAFTING TEACHER [facility] MATERNAL & CHILD [facility] 1.2840.114 350.1.13.10 4.2.7.2.686 [id number] [facility] 2021-07-28 00:00:00 2021-07-28 00:00:00 Orders Only Doctor Unassigned, [employer] [employer] [facility] 1.2.840.114 350.1.13.10 4.2.7.2.686 [id number] [facility] 2021-07-25 00:00:00 2021-07-25 00:00:00 Nurse Triage Janae Rubio [facility] 1.2840.114 350.1.13.10 4.2.7.2.686 [id number] [facility] 2021-07-22 14:30:00 2021-07-22 14:30:00 Outpatient JARED DOUGLAS [facility] [id number] [facility] 2021-07-21 00:00:00 2021-07-21 00:00:[address] [facility] 1.84.114 350.1.13.10 4.2.7.2.686 [id number] [facility] 2021-07-21 00:00:00 2021-07-21 00:00:00 Patient Secure Msg Jared Collado [facility] MEDICAL OFFICE BUILDING 1.0.114 350.1.13.10 4.2.7.2.686 [id number] [facility] 2021-07-20 16:13:00 2021-07-20 17:36:00 Emergency X Manuel [facility] ERT [id number] [facility] 2021-07-20 16:13:00 2021-07-20 17:36:00 Emergency Manuel Stanford [facility] 1.84.114 350.1.13.10 4.2.7.2.686 [id number] [facility] 2021-07-20 15:45:00 2021-07-20 16:00:00 Manager Investigations Visit Lab, Shanon Tariq [facility], [facility] 1.84.114 350.1.13.10 4.2.7.2.686 [id number] [facility] 2021-07-20 15:20:00 2021-07-20 15:44:36 Outpatient R OCTAVIA OUMAR [facility] [id number] [facility] 2021-07-20 15:20:00 2021-07-20 15:44:36 [facility] 1.84.114 350.1.13.10 4.2.7.2.686 [id number] [facility] 2021-07-17 00:00:00 2021-07-17 00:00:00 Patient Secure July Julian [facility] MED[facility] OFF[facility] BUILD[facility] 1.84.114 350.1.13.10 4.2.7.2.686 [id number] [facility] 2021-07-17 00:00:00 2021-07-17 00:00:00 Patient Secure Jared Salmon [facility] EMILIANO?[facility] MEDICAL OFFICE BUILDING 1.84.114 350.1.13.10 4.2.7.2.686 [id number] [facility] 2021-07-16 14:15:00 2021-07-16 14:41:18 Manager Investigations Visit Lab, Drake Schroedermariah [facility] EMILIANO?[facility] MEDICAL OFFICE BUILDING 1.84.114 350.1.13.10 4.2.7.2.686 [id number] [facility] 2021-07-16 14:15:00 2021-07-16 14:30:00 Manager Investigations Visit Lab, Drake Escobar Damon Collado Jared [facility] EMILIANO?[facility] MEDICAL OFFICE BUILDING 1.840.114 350.1.13.10 4.2.7.2.686 [id number] [facility] 2021-07-16 14:15:00 2021-07-16 14:15:00 Outpatient R ELDAJARED Lemus [facility] [id number] [facility] 2021-07-15 15:30:00 2021-07-15 15:45:00 Manager Investigations Visit Lab, Drake Jose Tobias [facility] EMILIANO?[facility] MEDICAL OFFICE BUILDING 1.84.114 350.1.13.10 4.2.7.2.686 [id number] [facility] 2021-07-15 14:00:00 2021-07-15 15:22:50 Outpatient R JARED COLLADO [facility] [id number] [facility] 2021-07-15 14:00:00 2021-07-15 15:22:50 Office Visit Jared Collado [facility] 1.840.114 350.1.13.10 4.2.7.2.686 [id number] [facility] 2021-07-15 14:00:00 2021-07-15 15:22:50 Outpatient R JARED COLLADO [facility] [id number] [facility] 2021-07-15 14:00:00 2021-07-15 15:22:50 Outpatient R JARED COLLADO [facility] [id number] [facility] 2021-07-13 08:30:00 2021-07-13 08:30:00 Outpatient R DANY CARIAS [facility] [id number] [facility] 2021-07-13 08:30:00 2021-07-13 08:30:00 Outpatient R DANY CARIAS [facility] [id number] [facility] 2021-07-11 14:20:00 2021-07-11 15:10:05 Outpatient R MARIA ISABEL MARSHALL [facility] [id number] [facility] 2021-07-11 14:20:00 2021-07-11 15:10:05 Urgent Care Maria Isabel Marshall [facility] 1.840.114 350.1.13.10 4.2.7.2.686 [id number] [facility] 2021-07-06 00:00:00 2021-07-06 00:00:00 Patient Secure Msg Doctor Unassigned, [employer] [facility] 1.840.114 350.1.13.10 4.2.7.2.686 [id number] [facility] 2021-06-30 14:30:00 2021-06-30 15:41:19 Outpatient R ADILIACHRISTINE CHAMBERSILOLA [facility] [id number] [facility] 2021-06-30 14:30:00 2021-06-30 15:41:19 Office Visit AdiliavikkiAnalisa kaufman [facility] DRAFTING TEACHER [facility] MATERNAL & CHILD [facility] 1.2.840.114 350.1.13.10 4.2.7.2.686 [id number] [facility] 2021-06-30 00:00:00 2021-06-30 00:00:00 Letter (Out) AdiliaAnalisa chambers Shruthi [facility] DRAFTING TE[employer]ER [facility] CHILD [facility] 1..840.114 350.1.13.10 4.2.7.2.686 [id number] [facility] 2021-06-26 15:45:00 2021-06-26 16:00:00 Manager Investigations Visit Lab, Drake Raycharleen [facility] MEDICAL OFFICE BUILDING 1..840.114 350.1.13.10 4.2.7.2.686 [id number] [facility] 2021-06-26 14:30:00 2021-06-26 15:40:40 Outpatient R FLORTYRESE VILLASEÑOR [facility] [id number] [facility] 2021-06-26 14:30:00 2021-06-26 15:40:40 Office [facility] MEDICAL OFFICE BUILDING 1..840.114 350.1.13.10 4.2.7.2.686 [id number] [facility] 2021-06-26 00:00:00 2021-06-26 00:00:00 Telephone Dany Carias [facility] DRAFTING TE[employer]ER [facility] MATERNAL & CH[facility] 1.2.840.114 350.1.13.10 4.2.7.2.686 [id number] [facility] 2021-06-25 14:30:00 2021-06-25 14:30:00 Outpatient LILIANA THOMPSONMARYBETH [facility] [id number] [facility] 2021-06-25 14:30:00 2021-06-25 14:30:00 Outpatient LILIANA THOMPSONMARYBETH [facility] [id number] [facility] 2021-06-22 15:30:00 2021-06-22 15:30:00 Outpatient Jocelyn JARED COLLADO [facility] [id number] [facility] 2021-06-22 15:30:00 2021-06-22 15:30:00 Outpatient Jocelyn JARED COLLADO [facility] [id number] [facility] 2021-06-18 00:00:00 2021-06-18 00:00:00 Patient Secure Msg [facility] MED[facility] OFF[facility] BU[facility] 1.2.840.114 350.1.13.10 4.2.7.2.686 [id number] [facility] 2021-06-16 15:30:00 2021-06-16 15:45:00 Manager Investigations [facility] MED[facility] OFF[facility] BU[facility] 1.2.840.114 350.1.13.10 4.2.7.2.686 [id number] [facility] 2021-06-16 14:30:00 2021-06-16 15:22:44 Outpatient TYRESE TURNER [facility] [id number] [facility] 2021-06-16 14:30:00 2021-06-16 15:22:44 [facility] 1.2.840.114 350.1.13.10 4.2.7.2.686 [id number] [facility] 2021-06-12 13:45:00 2021-06-12 14:00:00 Office Visit Analisa Suarez [facility] DRAFTING TE[employer]ER [facility] 1.2.840.114 350.1.13.10 4.2.7.2.686 [id number] [facility] 2021-06-12 13:45:00 2021-06-12 13:45:00 Outpatient R ANALISA SUAREZ [facility] [id number] [facility] 2021-06-12 13:45:00 2021-06-12 13:45:00 Outpatient R ANALISA SUAREZ [facility] [id number] [facility] 2021-06-12 00:00:00 2021-06-12 00:00:00 Patient Secure Msg Analisa Suarez [facility] DRAFT[facility] TE[employer] 1.2.840.114 350.1.13.10 4.2.7.2.686 [id number] [facility] 2021-06-11 00:00:00 2021-06-11 00:00:00 Telephone Analisa Suarez [facility] DRAFTING TE[employer] 1.2.840.114 350.1.13.10 4.2.7.2.686 [id number] [facility] 2021-06-10 13:30:00 2021-06-10 14:41:56 Office Visit Analisa Suarez [facility] DRAFTING TE[employer] 1.2.840.114 350.1.13.10 4.2.7.2.686 [id number] [facility] 2021-06-10 13:30:00 2021-06-10 14:41:56 Outpatient R ANALISA SUAREZ [facility] [id number] [facility] 2021-06-10 13:30:00 2021-06-10 13:30:00 Outpatient R ANALISA SUAREZ [facility] [id number] [facility] 2021-06-08 15:30:00 2021-06-08 15:30:00 Outpatient R TYRESE BACA [facility] [id number] [facility] 2021-06-08 15:30:00 2021-06-08 15:30:00 Outpatient R TYRESE BACA [facility] [id number] [facility] 2021-06-02 14:30:00 2021-06-02 15:12:53 Outpatient R TYRESE BACA [facility] [id number] [facility] 2021-06-02 14:30:00 2021-06-02 15:12:53 [facility] MEDICAL OFFICE BUILD[facility] 1.2.840.114 350.1.13.10 4.2.7.2.686 [id number] [facility] 2021-06-02 14:30:00 2021-06-02 15:12:53 Outpatient R TYRESE BACA [facility] [id number] [facility] 2021-06-02 14:30:00 2021-06-02 14:30:00 Outpatient R TYRESE BACA [facility] [id number] [facility] 2021-05-29 14:00:00 2021-05-29 14:30:00 Office Visit Jared Collado [facility] MED[facility] OFF[facility] BUILDING 1.2.840.114 350.1.13.10 4.2.7.2.686 [id number] [facility] 2021-05-29 14:00:00 2021-05-29 14:00:00 Outpatient R JARED COLLADO [facility] [id number] [facility] 2021-05-29 09:30:00 2021-05-29 09:30:00 Outpatient R TYRESE BACA [facility] [id number] [facility] 2021-05-28 00:00:00 2021-05-28 00:00:00 Telephone Jared Collado [facility] MEDICAL OFFICE BUILDING 1.840.114 350.1.13.10 4.2.7.2.686 [id number] [facility] 2021-05-27 09:15:00 2021-05-27 09:30:00 Manager Investigations Visit Lab, Drake SchroederJared lemus [facility] EMILIANO?[facility] MEDICAL OFFICE BUILDING 1.840.114 350.1.13.10 4.2.7.2.686 [id number] [facility] 2021-05-27 09:15:00 2021-05-27 09:15:00 Outpatient R JARED COLLADO [facility] [id number] [facility] 2021-05-27 08:30:00 2021-05-27 09:00:00 [facility] MEDICAL OFFICE BUILDING 1.840.114 350.1.13.10 4.2.7.2.686 [id number] [facility] 2021-05-27 08:30:00 2021-05-27 08:30:00 Outpatient R JARED COLLADO [facility] [id number] [facility] 2021-05-27 00:00:00 2021-05-27 00:00:00 Letter (Out) EldaJared lemus [facility] MEDICAL OFFICE BUILDING 1.840.114 350.1.13.10 4.2.7.2.686 [id number] [facility] 2021-05-27 00:00:00 2021-05-27 00:00:00 Telephone Jared Collado [facility] OFFICE BUILDING 1.2.840.114 350.1.13.10 4.2.7.2.686 [id number] [facility] 2021-05-27 00:00:00 2021-05-27 00:00:00 Telephone Jared Collado [facility] MEDICAL OFFICE BUILDING 1.840.114 350.1.13.10 4.2.7.2.686 [id number] [facility] 2021-05-23 01:00:00 2021-05-23 06:13:00 Emergency X ANGLE MARTÍNEZN [facility] ERT [id number] [facility] 2021-05-23 01:00:00 2021-05-23 06:13:00 Emergency Gabrielle Martínez R [facility] 1..840.114 350.1.13.10 4.2.7.2.686 [id number] [facility] 2021-05-23 01:00:00 2021-05-23 06:13:00 Emergency X GABRIELLE MARTÍNEZ [facility] ERT [id number] [facility] 2021-05-22 16:00:00 2021-05-22 16:00:00 Outpatient R PAMELA PRESLEY [facility] [id number] [facility] 2021-05-22 14:20:00 2021-05-22 15:02:37 Outpatient R FERNANDEZ PAMELA [facility] [id number] [facility] 2021-05-22 14:20:00 2021-05-22 15:02:37 Urgent Care Pamela Presley [facility] 1..840.114 350.1.13.10 4.2.7.2.686 [id number] [facility] 2021-05-15 00:00:00 2021-05-15 00:00:00 Orders Only Doctor Unassigned, [facility] [employer] 1.840.114 350.1.13.10 4.2.7.2.686 [id number] [facility] 2021-05-04 15:30:00 2021-05-04 15:30:00 Outpatient R GERTRUDE MILLAN [facility] [id number] [facility] 2021-05-04 15:30:00 2021-05-04 15:30:00 Outpatient R GERTRUDE MILLAN [facility] [id number] [facility] 2021-05-01 13:00:00 2021-05-01 13:00:00 [facility] [id number] [facility] 2021-05-01 13:00:00 2021-05-01 13:00:00 Outpatient R MINOO FLORES [facility] [id number] [facility] 2021-04-30 16:30:00 2021-04-30 17:15:50 Outpatient R TYRESE BACA [facility] [id number] [facility] 2021-04-30 16:30:00 2021-04-30 17:15:50 Office [address] Tyrese Baca [facility] MEDICAL OFFICE BUILDING 1..840.114 350.1.13.10 4.2.7.2.686 [id number] [facility] 2021-04-29 18:59:00 2021-04-29 20:20:00 Emergency X JAG MAGANA [facility] ERT [id number] [facility] 2021-04-29 18:59:00 2021-04-29 20:20:00 Emergency Jag Magana [facility] 1.840.114 350.1.13.10 4.2.7.2.686 [id number] [facility] 2021-04-29 18:59:00 2021-04-29 20:20:00 Emergency X JAG MAGANA [facility] ERT [id number] [facility] 2021-04-03 13:30:00 2021-04-03 13:30:00 Outpatient R MINOO FLORES [facility] [id number] [facility] 2021-03-27 02:58:00 2021-03-27 04:43:00 Emergency X JOB KASPER [facility] ERT [id number] [facility] 2021-03-27 02:58:00 2021-03-27 04:43:00 Emergency Job Kasper [facility] 1.84.114 350.1.13.10 4.2.7.2.686 [id number] [facility] 2021-03-27 00:00:00 2021-03-27 00:00:00 Orders Only Doctor Unassigned, [facility] [employer] 1..114 350.1.13.10 4.2.7.2.686 [id number] [facility] 2020-11-25 13:14:00 2020-11-27 12:30:00 Inpatient X JIMENA MAYO [facility] KYLE [id number] [facility] 2020-11-25 20:45:00 2020-11-26 00:47:00 Anesthesia Event Smith, Carine [facility] 1..114 350.1.13.10 4.2.7.2.686 [id number] [facility] 2020-11-24 00:00:00 2020-11-24 00:00:00 Dany Beth [facility] DRAFTING TEACHER [facility] MATERNAL & CHILD [facility] 1.114 350.1.13.10 4.2.7.2.686 [id number] [facility] 2020-11-20 10:15:00 2020-11-20 10:15:00 Outpatient NORA MELENDEZ [facility] [id number] [facility] 2020-11-18 00:00:00 2020-11-18 00:00:00 Patient Secure Msg Doctor Unassigned, [facility] DRAFTING TEACHER [facility] CHILD [facility] 1..840.114 350.1.13.10 4.2.7.2.686 [id number] [facility] 2020-11-17 00:00:00 2020-11-17 00:00:00 Telephone Nora Sanchez [facility] DRAFTING TEACHER [facility] 1..840.114 350.1.13.10 4.2.7.2.686 [id number] [facility] 2020-11-10 10:30:00 2020-11-10 10:30:00 Outpatient NORA MELENDEZ [facility] [id number] [facility] 2020-10-30 12:45:00 2020-10-30 12:45:00 Outpatient NORA MELENDEZ [facility] [id number] [facility] 2020-10-16 14:23:36 2020-10-16 15:09:33 Routine Visit Nora Sanchez [facility] 1..840.114 350.1.13.10 4.2.7.2.686 [id number] [facility] 2020-10-16 13:00:00 2020-10-16 13:00:00 Outpatient NORA MELENDEZ [facility] [id number] [facility] 2020-10-16 00:00:00 2020-10-16 00:00:00 Orders Only Doctor Unassigned, [facility] 1.840.114 350.1.13.10 4.2.7.2.686 [id number] [facility] 2020-10-15 09:45:00 2020-10-15 09:45:00 Outpatient LILIANA THOMPSONЕЛЕНАMariah [facility] [id number] [facility] 2020-10-07 08:00:00 2020-10-07 08:00:00 Outpatient NORA MELENDEZ [facility] [id number] [facility] 2020-09-30 18:00:00 2020-09-30 18:00:00 Outpatient Jocelyn CARIAS, DANY [facility] [id number] [facility] 2020-09-30 11:45:00 2020-09-30 11:45:00 [facility] [id number] [facility] 2020-09-29 16:45:00 2020-09-29 16:45:00 [facility] [id number] [facility] 2020-09-18 00:00:00 2020-09-18 00:00:00 Patient Secure Msg Acrias, Dany [facility] DRAFTING TEACHER [facility] MATERNAL & [facility]ILD [facility] 1.2.840.114 350.1.13.10 4.2.7.2.686 [id number] [facility] 2020-09-15 13:58:57 2020-09-15 15:37:45 Routine Visit Dany Carias [facility] DRAFTING TEACHER [facility] 1.2840.114 350.1.13.10 4.2.7.2.686 [id number] [facility] 2020-09-15 13:15:00 2020-09-15 13:15:00 Outpatient Jocelyn CARIASDANY [facility] [id number] [facility] 2020-09-12 00:00:00 2020-09-12 00:00:00 Nurse Triage Leidy Duran [facility] 1.2.840.114 350.1.13.10 4.2.7.2.686 [id number] [facility] 2020-08-29 00:00:00 2020-08-29 00:00:00 Telephone Nurse, [facility] sandra [place] 1.2.840.114 350.1.13.10 4.2.7.2.686 [id number] [facility] 2020-08-28 15:21:38 2020-08-28 23:59:00 Hospital Encounter Vipul [facility] 1.2.840.114 350.1.13.10 4.2.7.2.686 [id number] 2020-08-28 15:21:38 2020-08-28 23:59:00 Hospital Encounter Vipul [facility] 1.2.840.114 350.1.13.10 4.2.7.2.686 [id number] [facility] 2020-08-28 14:13:24 2020-08-28 15:23:42 Urgent Care Vipul [facility] [address] 1.2.840.114 350.1.13.10 4.2.7.2.686 [id number] 2020-08-28 14:13:24 2020-08-28 15:23:42 Urgent Care [place] Pending sale to [facility] 1.2.840.114 350.1.13.10 4.2.7.2.686 [id number] [facility] 2020-08-28 14:20:00 2020-08-28 14:20:00 Outpatient TOBY GRAVES [facility] [id number] [facility] 2020-08-27 10:01:23 2020-08-27 11:16:37 Routine Visit Dany Carias [facility] DRAFTING TEACHER [facility] CHILD [facility] 1.2.840.114 350.1.13.10 4.2.7.2.686 [id number] 2020-08-27 10:01:23 2020-08-27 11:16:37 Routine Visit Dany Carias [facility] DRAFTING TEACHER [facility]ILD [facility] 1.2.840.114 350.1.13.10 4.2.7.2.686 [id number] [facility] 2020-08-27 09:00:00 2020-08-27 09:00:00 Outpatient R DANY CARIAS [facility] [id number] [facility] 2020-08-27 00:00:00 2020-08-27 00:00:00 Orders Only Doctor Unassigned, [facility] 1.2.840.114 350.1.13.10 4.2.7.2.686 [id number] [facility] 2020-08-27 00:00:00 2020-08-27 00:00:00 Orders Only Doctor Unassigned, [facility] 1.2.840.114 350.1.13.10 4.2.7.2.686 [id number] 2020-08-19 14:50:51 2020-08-19 15:35:51 Manager Investigations Visit 1, [facility] Room Guerrero Stewart [facility] 1.2840.114 350.1.13.10 4.2.7.2.686 [id number] [facility] 2020-08-19 14:50:51 2020-08-19 15:35:51 Manager Investigations Visit 1, [facility] Room [facility] 1.2.840.114 350.1.13.10 4.2.7.2.686 [id number] 2020-08-19 14:15:00 2020-08-19 14:15:00 Outpatient P [facility] [id number] [facility] 2020-08-11 08:45:00 2020-08-11 08:45:00 Outpatient P [facility] [id number] [facility] 2020-08-06 00:00:00 2020-08-06 00:00:00 Nurse Triage [facility] 1.2.840.114 350.1.13.10 4.2.7.2.686 [id number] [facility] 2020-08-06 00:00:00 2020-08-06 00:00:00 Telephone Dany Carias [facility] DRAFTING TEACHER [facility] 1.2.840.114 350.1.13.10 4.2.7.2.686 [id number] [facility] 2020-08-06 00:00:00 2020-08-06 00:00:00 Nurse Triage [facility] 1.2.840.114 350.1.13.10 4.2.7.2.686 [id number] 2020-07-30 10:22:14 2020-07-30 10:37:14 Routine Visit Dany Carias [facility] DRAFTING TEACHER [facility] 1.2.840.114 350.1.13.10 4.2.7.2.686 [id number] [facility] 2020-07-30 10:15:00 2020-07-30 10:15:00 Outpatient DANY THOMPSON [facility] [id number] [facility] 2020-07-21 13:45:00 2020-07-21 13:45:00 Outpatient DANY THOMPSON [facility] [id number] [facility] 2020-07-17 09:00:00 2020-07-17 09:00:00 Outpatient R DANY CARIAS [facility] [id number] [facility] 2020-07-14 09:45:41 2020-07-14 11:00:41 Manager Investigations Visit Ultrasound, Jordan Valencia [facility] DRAFTING TEACHER [facility] 1.2.840.114 350.1.13.10 4.2.7.2.686 [id number] [facility] 2020-07-14 10:00:00 2020-07-14 10:00:00 Outpatient P [facility] [id number] [facility] 2020-07-14 00:00:00 2020-07-14 00:00:00 Case Management Nora Sanchez [facility] DRAFTING TEACHER [facility] MATERNAL & CHILD [facility] 1..840.114 350.1.13.10 4.2.7.2.686 [id number] [facility] 2020-07-01 13:52:00 2020-07-01 14:58:28 Routine Visit Dany Carias [facility] DRAFTING TEACHER [facility] 1..840.114 350.1.13.10 4.2.7.2.686 [id number] [facility] 2020-07-01 13:45:00 2020-07-01 13:45:00 Outpatient R DANY CARIAS [facility] [id number] [facility] 2020-07-01 00:00:00 2020-07-01 00:00:00 Telephone Dany Carias [facility] DRAFTING TEACHER [facility] 1.2.840.114 350.1.13.10 4.2.7.2.686 [id number] [facility] 2020-06-17 08:48:55 2020-06-17 09:25:15 Routine Visit Dany Carias [facility] DRAFTING TEACHER [facility] 1.2.840.114 350.1.13.10 4.2.7.2.686 [id number] [facility] 2020-06-17 08:45:00 2020-06-17 08:45:00 Outpatient DANY THOMPSON [facility] [id number] [facility] 2020-06-10 15:45:00 2020-06-10 15:45:00 Outpatient DANY THOMPSON [facility] [id number] [facility] 2020-06-03 20:19:00 2020-06-03 22:12:00 Emergency Julio Da [facility] 1.2.840.114 350.1.13.10 4.2.7.2.686 [id number] [facility] 2020-05-13 09:59:20 2020-05-13 10:14:20 Routine Visit Dany Carias [facility] DRAFTING TEACHER [facility] 1.2.840.114 350.1.13.10 4.2.7.2.686 [id number] [facility] 2020-05-13 10:00:00 2020-05-13 10:00:00 Outpatient DANY THOMPSON [facility] [id number] [facility] 2020-05-06 11:00:00 2020-05-06 11:00:00 Outpatient DANY THOMPSON [facility] [id number] [facility] 2020-04-29 10:45:00 2020-04-29 10:45:00 Outpatient DANY THOMPSON [facility] [id number] [facility] 2020-04-29 00:00:00 2020-04-29 00:00:00 Telephone Carias, Rosmarybeth Banks [facility] DRAFTING TEACHER [facility] MATERNAL & CHILD [facility] 1.2.840.114 350.1.13.10 4.2.7.2.686 [id number] [facility] 2020-04-22 00:00:00 2020-04-22 00:00:00 Nurse Triage Lynn Garcia [facility] 1.2.840.114 350.1.13.10 4.2.7.2.686 [id number] [facility] 2020-04-09 00:00:00 2020-04-09 00:00:00 Case Management Gris Cariasjosué [facility] DRAFTING TEACHER [facility]ILD [facility] 1.2.840.114 350.1.13.10 4.2.7.2.686 [id number] [facility] 2020-04-08 11:32:55 2020-04-08 12:14:18 Manager Investigations Visit Ultrasound, Tracey Trammell [facility] DRAFTING TEACHER [facility] MATERNAL & CHILD [facility] 1.2840.114 350.1.13.10 4.2.7.2.686 [id number] [facility] 2020-04-08 11:30:00 2020-04-08 11:30:00 Outpatient P [facility] [id number] [facility] 2020-04-08 00:00:00 2020-04-08 00:00:00 Abstract Liliana Cariasmarybeth [facility] DRAFTING TEACHER [facility] MATERNAL & CHILD [facility] 1.2840.114 350.1.13.10 4.2.7.2.686 [id number] [facility] 2020-04-02 23:15:00 2020-04-03 01:12:00 Emergency Yoshi Esparza [facility] 1.2.840.114 350.1.13.10 4.2.7.2.686 [id number] [facility] 2020-04-02 00:00:00 2020-04-02 00:00:00 Telephone Dany Carias [facility] DRAFTING TEACHER [facility] 1.2.840.114 350.1.13.10 4.2.7.2.686 [id number] [facility] 2020-04-02 00:00:00 2020-04-02 00:00:00 Telephone Dany Carias [facility] DRAFTING TEACHER [facility] 1.2840.114 350.1.13.10 4.2.7.2.686 [id number] [facility] 2020-04-01 09:25:04 2020-04-01 11:05:29 Initial Visit Dany Carias [facility] DRAFTING TEACHER [facility] 1.0.114 350.1.13.10 4.2.7.2.686 [id number] [facility] 2020-04-01 08:30:00 2020-04-01 08:30:00 Outpatient R [facility] [id number] [facility] 2020-04-01 00:00:00 2020-04-01 00:00:00 Orders Only Doctor Unassigned, [facility] 1.0.114 350.1.13.10 4.2.7.2.686 [id number] [facility] 2019-12-18 09:30:00 2019-12-18 09:30:00 Outpatient R [facility] [id number] [facility] 2019-10-01 00:00:00 2019-10-01 00:00:00 Patient Secure Msg Doctor Unassigned, [facility] 1.0.114 350.1.13.10 4.2.7.2.686 [id number] [facility] 2019-09-26 00:00:00 2019-09-26 00:00:00 Patient Secure Msg [facility] 1.2.840.114 350.1.13.10 4.2.7.2.686 [id number] [facility] 2019-09-21 11:10:44 2019-09-21 23:59:00 Hospital Encounter Minoo Flores [facility] 1.2.840.114 350.1.13.10 4.2.7.2.686 [id number] [facility] 2019-09-21 11:00:00 2019-09-21 11:09:00 Hospital Encounter Minoo Flores [facility] 1.2.840.114 350.1.13.10 4.2.7.2.686 [id number] [facility] 2019-09-21 09:56:26 2019-09-21 10:59:00 Hospital Encounter Minoo Flores [facility] 1.2.840.114 350.1.13.10 4.2.7.2.686 [id number] [facility] 2019-09-21 00:00:00 2019-09-21 00:00:00 Outpatient R MINOO FLORES [facility] [id number] [facility] 2019-09-21 00:00:00 2019-09-21 00:00:00 Patient Secure Msg Minoo Flores [facility] 1.2.840.114 350.1.13.10 4.2.7.2.686 [id number] [facility] 2019-09-21 00:00:00 2019-09-21 00:00:00 Case Management [place] 1.2.840.114 350.1.13.10 4.2.7.2.686 [id number] [facility] 2019-09-21 00:00:00 2019-09-21 00:00:00 Patient Secure Msg Minoo Flores [facility] 1.2.840.114 350.1.13.10 4.2.7.2.686 [id number] [facility] 2019-09-20 10:01:43 2019-09-20 10:16:43 Laboratory Only Only, Adc Test Kevan Beaulieu [facility] 1.2.840.114 350.1.13.10 4.2.7.2.686 [id number] [facility] 2019-09-20 09:55:41 2019-09-20 10:10:41 Manager Investigations Visit Pob, Adc Lab Main Minoo Flores [facility] 1.2.840.114 350.1.13.10 4.2.7.2.686 [id number] [facility] 2019-09-20 00:00:00 2019-09-20 00:00:00 Outpatient R MINOO FLORES [facility] [id number] [facility] 2019-09-20 00:00:00 2019-09-20 00:00:00 Orders Only Doctor Unassigned, [facility] 1.2.840.114 350.1.13.10 4.2.7.2.686 [id number] [facility] 2019-09-19 13:45:12 2019-09-19 15:57:17 Telemedici ne Visit Minoo Flores [facility] 1.2.840.114 350.1.13.10 4.2.7.2.686 [id number] [facility] 2019-09-19 09:45:00 2019-09-19 09:45:00 Outpatient R MINOO FLORES [facility] [id number] [facility] 2019-09-19 00:00:00 2019-09-19 00:00:00 Telephone Minoo Flores [facility] 1..840.114 350.1.13.10 4.2.7.2.686 [id number] [facility] 2019-09-14 12:46:19 2019-09-14 13:54:37 Urgent Care Pob1, [facility] 1.840.114 350.1.13.10 4.2.7.2.686 [id number] [facility] 2019-09-14 13:00:00 2019-09-14 13:00:00 Outpatient R BERTHA BACATHIA [facility] [id number] [facility] 2019-08-28 11:00:00 2019-08-28 11:00:00 Outpatient R MELODY GAO [facility] [id number] [facility] 2019-08-22 08:59:00 2019-08-24 07:24:30 In[facility] HCACL [id number] 2019-08-23 15:07:25 2019-08-23 16:34:23 Urgent Care Provider, [facility] .840.114 350.1.13.10 4.2.7.2.686 [id number] [facility] 2019-08-23 15:40:00 2019-08-23 15:40:00 Outpatient R [facility] [id number] [facility] 2019-08-22 14:16:15 2019-08-22 16:10:00 Emergency Kvng Chandra R [facility] 1.2.840.114 350.1.13.10 4.2.7.2.686 [id number] [facility] 2019-08-22 13:26:07 2019-08-22 13:41:07 Nurse Visit Nurse, [facility] Unknown, Attending [facility] 1.2.840.114 350.1.13.10 4.2.7.2.686 [id number] [facility] 2019-08-22 13:30:00 2019-08-22 13:30:00 Outpatient R UNKNOWN, ATTENDING [facility] [id number] [facility] 2019-08-22 00:00:00 2019-08-22 00:00:00 Telephone Simba Rivera [facility] 1.2.840.114 350.1.13.10 4.2.7.2.686 [id number] [facility] 2019-08-21 00:00:00 2019-08-21 00:00:00 Patient Secure Msg Doctor Unassigned, [facility] [id number] [id number] [id number] [id number] [facility] 2019-08-19 21:26:07 2019-08-19 21:27:00 Emergency Simba Rivera [facility] [id number] [id number] 4.2.7.2.686 [id number] [facility] 2019-08-19 00:00:00 2019-08-19 00:00:00 Orders Only Doctor Unassigned, [facility] [id number] [id number] 4.2.7.2.686 [id number] [facility] Results Test Description Test Time Test Comments Results Result Co mments Source [facility] (BINAX NOW)2024-03-07 22:48:00* Test Item Value Reference Range Interpretation Comme nts POCT SARS-COV-2 ANTIGEN (test code = 87594-6) Not Detected Not Detected, See Comment On board controls acceptable with C Line (test code = 3574) Yes Lab Interpretation (test code = 98755-0) Normal [facility] [id number] 22:48:00* Test Item Value Reference Range Interpretation Comme nts POCT PREG (test code = 1605) Negative On board controls acceptable with C Line (test code = 3574) Yes POCT PREG LOT # (test code = 3575) POCT PREG TEST DATE ( test code = 3576) Lab Interpretation (test cod e = 60621-4) [facility] MOLECULAR [id number] 22:43:07* Test Item Value Reference Range Interpretation Comme nts POCT Molecular Strep (test c ode = 57621-2) Negative Negative Lab Interpretation (test cod e = 61177-4) [facility] Molecular [id number] 22:27:05* Test Item Value Reference Range Interpretation Comme nts POCT Molecular FluA (test co de = 11681-8) Negative Negative POCT Molecular FluB (test co de = 40569-4) Negative Negative Lab Interpretation (test cod e = 00224-7) [facility] MOLECULAR [id number] 22:20:34* Test Item Value Reference Range Interpretation Comme nts POCT Molecular Strep (test c ode = 29599-9) Negative Negative Lab Interpretation (test cod e = 58736-9) [facility] WITH [id number] 17:00:40* Test Item Value Reference Range Interpretation Comme nts WBC (test code = 6690-2) 11.34 4.30-11.10 H RBC (test code = 789-8) 5.60 3.93-5.25 H HGB (test code = 718-7) 14.6 g/dL 11.6-15.0 HCT (test code = 4544-3) 45.5 % 35.7-45.2 H MCV (test code = 787-2) 81.3 fL 80.6-95.5 MCH (test code = 785-6) 26.1 pg 25.9-32.8 MCHC (test code = 786-4) 32.1 g/dL 31.6-35.1 RDW-SD (test code = 13240-7) 43.7 fL 39.0-49.9 RDW-CV (test code = 788-0) 14.8 % 12.0-15.5 PLT (test code = 777-3) 334 166-358 MPV (test code = 48763-7) 9.7 fL 9.5-12.9 NRBC/100 WBC (test code = 1790085205) 0.0 0.0-10.0 NRBC x10^3 (test code = 0997633656) See_Comment [Automated messa ge] The system which generated this result transmitted reference range: 10*3/?L. The reference range was not used to interpret this result as normal/abnormal. GRAN MAT (NEUT) % (test code = 770-8) 64.3 % IMM GRAN % (test code = 9176628908) 0.40 % LYMPH % (test code = 736-9) 26.5 % MONO % (test code = 5905-5) 7.1 % EOS % (test code = 713-8) 1.1 % BASO % (test code = 706-2) 0.6 % GRAN MAT x10^3(ANC) (test code = 7515779721) 7.29 10*3/uL 1.88-7.09 H IMM GRAN x10^3 (test code = 7581790310) 0.04 10*3/uL 0.00-0.06 LYMPH x10^3 (test code = 731-0) 3.01 10*3/uL 1.32-3.29 MONO x10^3 (test code = 742-7) 0.81 10*3/uL 0.33-0.92 EOS x10^3 (test code = 711-2) 0.12 10*3/uL 0.03-0.39 BASO x10^3 (test code = 704-7) 0.07 10*3/uL 0.01-0.07 Lab Interpretation (test code = 00746-7) Abnormal [facility] [id number] 16:20:00* Test Item Value Reference Range Interpretation Comme nts POCT PREG (test code = 1605) Negative On board controls acceptable with C Line (test code = 3574) Yes POCT PREG LOT # (test code = 3575) HCG [id number] POCT PREG TEST DATE (test code = 3576) 11/11/2024 Lab Interpretation (test cod e = 13148-4) Normal [facility] MOLECULAR [id number] 15:59:33* Test Item Value Reference Range Interpretation Comme nts POCT Molecular Strep (test c ode = 04175-3) Negative Negative Lab Interpretation (test cod e = 24821-9) Normal [facility] [id number] 12:46:00* Test Item Value Reference Range Interpretation Comme nts POCT PREG (test code = 1605) Negative On board controls acceptable with C Line (test code = 3574) Yes POCT PREG LOT # (test code = 3575) POCT PREG TEST DATE ( test code = 3576) [facility] [id number] 12:46:00* Test Item Value Reference Range Interpretation Comme nts POCT PREG (test code = 1605) Negative On board controls acceptable with C Line (test code = 3574) Yes POCT PREG LOT # (test code = 3575) POCT PREG TEST DATE ( test code = 3576) [facility] [id number] 20:37:00* Test Item Value Reference Range Interpretation Comme nts POCT PREG (test code = 1605) Negative On board controls acceptable with C Line (test code = 3574) Yes POCT PREG LOT # (test code = 3575) POCT PREG TEST DATE ( test code = 3576) [facility] [id number] 20:37:00* Test Item Value Reference Range Interpretation Comme nts POCT PREG (test code = 1605) Negative On board controls acceptable with C Line (test code = 3574) Yes POCT PREG LOT # (test code = 3575) POCT PREG TEST DATE ( test code = 3576) [facility] [id number] 20:37:00* Test Item Value Reference Range Interpretation Comme nts POCT PREG (test code = 1605) Negative On board controls acceptable with C Line (test code = 3574) Yes POCT PREG LOT # (test code = 3575) POCT PREG TEST DATE ( test code = 3576) [facility] URINALYSIS W/O SPECIFIC [id number] 20:36:00* Test Item Value Reference Range Interpretation [...] = 3257) trace Negative - Negati ve [facility] URINALYSIS W/O SPECIFIC [id number] 20:36:00* Test Item Value Reference Range Interpretation [...] = 3257) trace Negative - Negati ve [facility] URINALYSIS W/O SPECIFIC [id number] 20:36:00* Test Item Value Reference Range Interpretation [...] = 3257) trace Negative - [facility] ve [facility]/[id number] 15:19:39* Test Item Value Reference Range Interpretation Comments SARS-CoV-2 INTERPRETATION (test code = 26323) NEGATIVE SEE NOTE SARS-CoV-2 R NA NOT [...] prevalence is high. SOURCE (test code = 45085) NASOPHARYNGEAL Note: Methodolog y is Dannie Stefani Real-Time RT-PCR. The expected result or reference range is NEGATIVE (Not Detected). For more information regarding COVID-19 testing to include clinicalinformation, methodology detail, intended use, FDA authorization andrecommended fact sheets for patients or healthcare providers, see Contactually Announcement: SARS-CoV-2 (COVID-19) by NAAT at URL below (note,fact sheets are provided by method given in report:[email or web address]/clinicians/cl [email or web address]-communications/ Alternatively, see downloadable PDF fact sheet at:https://www.Filtrbox .AquaBlok/[email or web address]-VH-PCR UNLESS OTHERWISE INDICATED, ALL TESTING PERFORMED [facility] [address] [place] [address] MAINTENANCE REPRESENTATIVE: OCTAVIANO GUZMAN M.D. CLIA NUMBER [id number] [place]. [id number] COMPREHENSIVE METABOLIC [id number] 10:12:00* Test Item Value Reference Range Interpretation [...] code = ALKP) 65 IUnit/L 20-125 N [id number] 10:12:00* Test Item Value Reference Range Interpretation Comme nts TROPONIN-I (test code = TROPI) < 0.015 ng/mL 0.000-0.045 N Negative: <= 0.0 45 Positive: >= 0.046 Correlation with serial results, other cardiac markers andclinical findings is necessary to determine the clinicalsignificance of this result. Results using different methodologies should not be comparedto one another as quantitative results may vary by method. COMPREHENSIVE METABOLIC [id number] 10:11:00* Test Item Value Reference Range Interpretation [...] ( test code = ALKP) IUnit/L 20-125 [id number] 10:11:00* Test Item Value Reference Range Interpretation Comme [facility] TROPONIN-I (test code = TROPI) < 0.015 ng/mL 0.000-0.045 N Negative: <= 0.0 45 Positive: >= 0.046 Correlation with serial results, other cardiac markers andclinical findings is necessary to determine the clinicalsignificance of this result. Results using different methodologies should not be comparedto one another as quantitative results may vary by method. PROTHROMBIN [id number] 09:59:00* Test Item Value Reference Range Interpretation [...] Acute Myocardial Infarction (to prevent recurrent infarct). [id number] 09:59:00* Test Item Value Reference Range Interpretation Comme nts D-DIMER (test code = DDIMER) 224 ng/mlFEU <=500 N THROMBOSIS AND/O R PULMONARY EMBOLISM AND THE CLINICAL CUT- OFF VALUE FOR EXCLUSION (500 ng/mL FEU) OF THESE CONDITIONSIS VALIDATED BY THE APPLIED EXERCISE PHYSIOLOGIST OF THE METHOD. A NEGATIVE D-DIMER RESULT WHEN COMBINED WITH A CLINICALASSESSMENT OF LOW PRETEST PROBABILITY HAS BEEN SHOWN TO HAVEA HIGH NEGATIVE PREDICTIVE VALUE OF DVT OR PE. D-DIMER VALUES >500 ng/mL FEU ARE NOT DIAGNOSTIC FOR DVT, PEor DIC WITHOUT OTHER CONFIRMATORY TESTS AND APPROPRIATECLINICAL EUALUATIONS. CBC W/AUTO [id number] 09:56:00* Test Item Value Reference Range Interpretation [...] = MDIFF) NO - XR CHEST 1 [id number] 09:56:00FAX: Dallas Cain MD [phone] Leonardo: St: PRE Name: QUINNRAGHAVENDRA [facility] : 1985 Age/S: 34/F [address] [place] [address] Unit #: [id number] Loc: [place] [address] Phys: Dallas Cain MD Acct: [id number] Dis Date: Status: PRE ER PHONE #: [phone] Exam Date: 08/22/2019 1009 FAX #: [phone] Reason: Chest Pain EXAMS: CPT CODE: [id number] XR CHEST 1 V 65777 PROCEDURE: CHEST SINGLE VIEW INDICATION: Chest Pain COMPARISON: There are no previous relevant studies available for correlation. FINDINGS: The lungs are clear. No pleural abnormality. The cardiomediastinal silhouette is normal for projection. The bony thorax is intact. IMPRESSION: Normal radiograph. SL: [id number] Elec tronically Signed by Jesse Sousa on 08/22/2019 at 0956 Reported and signed by: Samson Sousa M.D. CC: Dallas Cain MD Technologist: Lilly Agarwal RT(R) Trnscrd Date/Time/By: 08/22/2019 (0956) : By: Krissy Orig Print D/T: S: 08/22/2019 (100) PAGE 1 Signed Report Notes Date/Time Note Provider Source 2024 19:00:00 Addended by: LAURA LOWE on: 2024 07:53 PM Modules accepted: Orders [facility] 2024-01-23 16:45:00 Images from the original note were not included. Venipuncture collection performed by clean technique on the left anticubitus. Total of 1 attempts were made. Slight pressure and a bandage/dressing were applied to the site(s). The patient experienced no complications. The following specimens were processed according to instructions and sent to [facility] laboratories per lab order on 01/23/2024 : LT BLUE SST 2 RED 1 LAV PPT DK GREEN (LiHep) DK GREEN (SodH) JEFFRIES DK BLUE (K2) DK BLUE (S) ACD Blood Culture NIPT/NTD [facility] 2023-12-29 11:51:52 Pt given printed and verbal discharge instructions regarding dysfunctional uterine bleeding and UTI, encouraged hydration. Prescriptions provided. Discussed ibuprofen and to take with food to avoid GI distress. Discussed antibiotic therapy and to take until all completed unless adverse reaction occurs - if occurs, discontinue medication and follow up with pcp/seek medical attention. Pt verbalized understanding of instructions, pt awake alert oriented, resp reg unlabored, skin w/d, color appropriate for race, moves all ext well, pt encouraged to follow up with OBGYN. Advised to seek medical attention for new/prolonged/worsening of symptoms. Symptoms addressed. No adverse reaction to meds given in ER noted upon discharge. PIV d'cd, dressing to site, catheter intact. Pt leaving amb with steady gait, in no apparent distress. NET DEVELOPER Rody Mccarthy RN [facility] 2023-12-29 09:07:26 Patient states "I started bleeding yesterday and I thought it was my regular period. I am bleeding what is not normal, I am bleeding a lot and having pain on the left side." TH Soares RN [facility] 2023-12-15 16:45:00 Images from the original note were not included. Venipuncture collection performed by clean technique on the left anticubitus. Total of 1 attempts were made. Slight pressure and a bandage/dressing were applied to the site(s). The patient experienced no complications. The following specimens were processed according to instructions and sent to [facility] laboratories per lab order on TODAY: LT BLUE SST 1RST RED LAV PPT DK GREEN (LiHep) DK GREEN (SodH) JEFFRIES DK BLUE (K2) DK BLUE (S) ACD Blood Culture NIPT/NTD Urine collected in office. POCT only.Sugey Wang 12/15/2023 4:[address] [facility] 2023-11-08 18:16:14 See lab result note when available- likely by tomorrow, during which this will be addressed. [facility] 2023-11-04 11:00:00 Images from the original note were not included. Venipuncture collection performed by clean technique on the right anticubitus. Total of 1 attempts were made. Slight pressure and a bandage/dressing were applied to the site(s). The patient experienced no complications. The following specimens were processed according to instructions and sent to [facility] laboratories per lab order on 11/04/2023 : LT BLUE SST 2 RED LAV 2 PPT DK GREEN (LiHep) DK GREEN (SodH) JEFFRIES DK BLUE (K2) DK BLUE (S) ACD Blood Culture NIPT/NTD [facility] 2022-09-01 09:11:30 Formatting of this n ote is different from the original. 09/01/22 [facility] Wellness and Outreach team contacted patient to assist in completing Health Maintenance topics that are overdue. Raghavendramariah Leónez Quinn [id number] Attempt Number: 1st attempt Health Maintenance topics addressed: Health Maintenance Due Topic Date Due SARS-CoV-2 (COVID-19) Vaccine (1) Never done Depression Screening 09/18/2020 Call outcome: Attempted to get in contact with patient regarding missed annual visit appointment. No answer. LVM for patient to return phone call. Deja Strong MA [facility] 2019-08-22 09:39:00 [facility] ([facility] EMERGENCY PROVIDER REPORT REPORT#:[id number] REPORT STATUS: Signed DATE:08/22/19 TIME: 938 PATIENT: RAGHAVENDRA QUINNMIGUEL AEZ UNIT #: [id number] ROOM/BED: AGE: 34 SEX: F PCP PHYS: [...] (Auto) (14.0 - 32.0 %) 37.2 H Harris % (Auto) (4.8 - 9.0 %) 7.7 Eos % (Auto) (0.3 - 3.7 %) 0.8 Baso % (Auto) (0.0 - 2.0 %) 0.5 Neut # (Auto) (2.0 - 7.6 x10 3/uL) 7.13 Lymph # (Auto) (1.0 - 3.8 x10 3/uL) 4.96 H Harris # (Auto) (0.1 - 0.8 x10 3/uL) [...] Entered: 08/22/2019 1003 IMPRESSION: Normal radiograph. SL: [id number] Impression By: Krissy Sousa M.D. Point of [...] Ox 100 08/21 918 B/P 121/77 08/21 0819 B/P Mean 91 08/21 918 O2 Delivery Room air 08/21 918 Temp 99.1 08/21 918 Pulse 115 08/21 918 Resp 18 08/21 918 Last Documented: Result Date Time Pulse Ox 100 08/21 0819 B/P 121/77 08/21 0819 B/P Mean 91 08/21 918 O2 Delivery Room air 08/21 918 Temp 99.1 08/21 918 Pulse 115 08/21 918 Resp 18 08/21 09 All vital signs available at the time [...] No Known Home Medications at 1030 RPT #:[id number] END OF REPORT [facility]
[2024-06-13] MEDS ORDERED: IPRATROPIUM BROM 0.5MG/2.5ML ONE (19:41)
[2024-06-13] MEDS ORDERED: ALBUTEROL 2.5 MG/3 ML NEB SOL ONE (19:41)
--- NOTE | 2024-06-13 19:49 | RAD REPORT ---
EXAM: Chest Single View HISTORY: 39 years Female Cough;Congestion COMPARISON: 11/15/2023 FINDINGS: LUNGS/PLEURA: The lungs are clear. No pleural effusions or pneumothorax. No pulmonary edema. CARDIAC/MEDIASTINUM: The cardiac silhouette is within normal limits. UPPER ABDOMEN: No significant abnormality. BONES: No acute abnormality. LINES/TUBES/OTHER: N/A IMPRESSION: No evidence of acute cardiopulmonary disease.
--- NOTE | 2024-06-13 20:14 | ER ---
Nurse's Notes [facility] Name: Goyo Solorio Age: 39 yrs Sex: Female : 1985 Arrival Date: 06/13/2024 Time: 18:57 Bed 18 Private MD: Diagnosis: Cough Presentation: 06/13 19:05 Chief complaint: Patient states: DIFFICULTY BREATHING DUE TO COUGH, COUGH, DIZZINESS X db 5 DAYS. Coronavirus screen: Client denies travel out of the [place] in the last 14 days. At this time, the client does not indicate any symptoms associated with coronavirus-19. Ebola Screen: Patient negative for fever greater than or equal to 101.5 degrees Fahrenheit, and additional compatible Ebola Virus Disease symptoms Patient denies exposure to infectious person. Patient denies travel to an Ebola-affected area in the 21 days before illness onset. No symptoms or risks identified at this time. Initial Sepsis Screen: Does the patient meet any 2 criteria? No. Patient's initial sepsis screen is negative. Does the patient have a suspected source of infection? No. Patient's initial sepsis screen is negative. Risk Assessment: Do you want to hurt yourself or someone else? Patient reports no desire to harm self or others. Onset of symptoms was June 13, 2024. 19:05 Method Of Arrival: Ambulatory db 19:05 Acuity: EUGENIO 3 db Triage Assessment: 19:06 General: Appears in no apparent distress. comfortable, Behavior is calm, cooperative. db Pain: Denies pain. Neuro: Level of Consciousness is awake, alert, obeys commands, Oriented to person, place, time, situation. Respiratory: Reports shortness of breath cough that is Airway is patent Respiratory effort is even, unlabored, Respiratory pattern is regular, symmetrical, Onset: The symptoms/episode began/occurred gradually, the patient has mild shortness of breath. GI: Reports nausea. 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 - Infectious Disease History:: Denies. - Social history:: Smoking status: Patient reports the use of cigarette tobacco products, denies chronic smoking, but will smoke occasionally. Screenin:20 [facility] ED Fall Risk Assessment (Adult) History of falling in the last 3 months, br2 including since admission No falls in past 3 months (0 pts) Confusion or Disorientation No (0 pts) Intoxicated or Sedated No (0 pts) Impaired Gait No (0 pts) Mobility Assist Device Used No (0 pt) Altered Elimination No (0 pt) Score/Fall Risk Level 0 - 2 = Low Risk Oriented to surroundings. Abuse screen: Denies threats or abuse. Denies injuries from another. Nutritional screening: No deficits noted. Tuberculosis screening: No symptoms or risk factors identified. Assessment: 19:20 Reassessment: Patient is alert, oriented x 3, equal unlabored respirations, skin br2 warm/dry/pink. General: Appears in no apparent distress. comfortable, Behavior is calm, cooperative. Cardiovascular: Capillary refill < 3 seconds. Respiratory: Reports shortness of breath cough that is Airway is patent Trachea Respiratory effort is even, unlabored, Respiratory pattern is regular, symmetrical, Breath sounds are clear bilaterally. Vital Signs: 19:05 BP 124 / 77; Pulse 102; Resp 18; Temp 98.7; Pulse Ox 97% ; Weight 88.45 kg; Height 5 db ft. 1 in. ; 20:26 BP 142 / 76; Pulse 83; Resp 18 S; Temp 97.2(TE); Pulse Ox 98% on R/A; br2 19:05 Body Mass Index 36.84 (88.45 kg, 154.94 cm) db ED Course: 18:59 Patient arrived in ED. mr 18:59 Tess Roberto FNP-C is PHCP. kb 18:59 Mike Veliz MD is Attending Physician. kb 19:06 Triage completed. db 19:07 Arm band placed on right wrist. db 19:20 Patient has correct armband on for positive identification. Bed in low position. Call br2 light in reach. Side rails up X 1. 19:20 Provided Education on: DISCHARGE INSTRUCTIONS. br2 19:20 No provider procedures requiring assistance completed. Patient did not have IV access br2 during this emergency room visit. 19:35 Analilia Dawn, JAVIER is Primary Nurse. br2 19:40 Chest Single View XRAY In Process Unspecified. EDMS 19:40 Group A Streptococcus Rapid Sent. rk3 Administered Medications: 19:45 Drug: Ipratropium Inhalation Aerosol 0.5 mg Inhalation once Route: Inhalation; br2 20:27 Follow up: Response: No adverse reaction br2 19:46 Drug: Albuterol Inhalation 2.5 mg Inhalation once Route: Inhalation; br2 20:27 Follow up: Response: No adverse reaction br2 Outcome: 19:20 Discharged to home ambulatory, br2 19:20 Condition: stable 19:20 Discharge instructions given to patient, Instructed on discharge instructions, follow up and referral plans. Demonstrated understanding of instructions, follow-up care, medications, Prescriptions given X 3, 20:13 Discharge ordered by . kb 20:28 Patient left the ED. br2 Signatures: Dispatcher [employer] EDMS Tess Roberto, ELECTRONICS WORKER-C ELECTRONICS WORKER-CkLanie Collins, Reg Reg mr Amberly Lees, RN RN db Analilia Dawn RN RN br2 Sadia Tidwell rk3
--- NOTE | 2024-06-13 20:14 | EDPHYS ---
Physician Documentation [facility] Name: Goyo Solorio Age: 39 yrs Sex: Female : 1985 Arrival Date: 06/13/2024 Time: 18:57 Bed 18 Private MD: ED Physician Mike Veliz HPI: 06/13 19:00 This 39 yrs old Female presents to ER via Unassigned with complaints of kb Breathing Difficulty. 19:00 Pt is a 39 year old female who presents for cough and shortness of breath that started kb 2 weeks ago. States she gets more short of breath when she coughs or talks a lot. Reports children were sick as well, but they have gotten better. States initially she had cough, congestion and fever, but the fever and congestion resolved after 5 days. . 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 - Infectious Disease History:: Denies. - Social history:: Smoking status: Patient reports the use of cigarette tobacco products, denies chronic smoking, but will smoke occasionally. ROS: 19:00 Constitutional: As per HPI kb Exam: 19:00 Constitutional: This is a well developed, well nourished patient who is awake, alert, kb and in no acute distress. Head/Face: Normocephalic, atraumatic. ENT: Moist Mucous membranes Cardiovascular: Regular rate Respiratory: Respirations even and unlabored. No increased work of breathing. Talking in full sentences Skin: Warm, dry with normal turgor. Normal color. MS/ Extremity: Pulses equal, no cyanosis. Neurovascular intact. Full, normal range of motion. Neuro: Awake and alert, GCS 15, oriented to person, place, time, and situation. Vital Signs: 19:05 BP 124 / 77; Pulse 102; Resp 18; Temp 98.7; Pulse Ox 97% ; Weight 88.45 kg; Height 5 db ft. 1 in. ; 20:26 BP 142 / 76; Pulse 83; Resp 18 S; Temp 97.2(TE); Pulse Ox 98% on R/A; br2 19:05 Body Mass Index 36.84 (88.45 kg, 154.94 cm) db MDM: 18:59 Medical Screening Exam initiated kb 20:17 Differential diagnosis: flu, covid, strep, pneumonia. Data reviewed: vital signs, kb nurses notes. Counseling: I had a detailed discussion with the patient and/or guardian regarding the historical points, exam findings, and any diagnostic results supporting the discharge/admit diagnosis, lab results, radiology results, the need for outpatient follow up, a family practitioner, to return to the emergency department if symptoms worsen or persist or if there are any questions or concerns that arise at home. 06/13 19:04 Order name: Group A Streptococcus Rapid; Complete Time: 20:11 kb 06/13 20:10 Order name: Throat Culture EDMS 06/13 19:04 Order name: Chest Single View XRAY; Complete Time: 19:50 kb Administered Medications: 19:45 Drug: Ipratropium Inhalation Aerosol 0.5 mg Inhalation once Route: Inhalation; br2 20:27 Follow up: Response: No adverse reaction br2 19:46 Drug: Albuterol Inhalation 2.5 mg Inhalation once Route: Inhalation; br2 20:27 Follow up: Response: No adverse reaction br2 Disposition: 23:34 Co-signature as Attending Physician, Mike Veliz MD I agree with the assessment and nicol plan of care. Disposition Summary: 06/13/24 20:13 Discharge Ordered Notes: Location: Home kb Condition: Stable kb Diagnosis - Cough kb Followup: kb - With: Emergency Department - When: As needed - Reason: Worsening of condition Followup: kb - With: Private Physician - When: 2 - 3 days - Reason: Recheck today's complaints, Continuance of care, Re-evaluation by your physician Discharge Instructions: - Discharge Summary Sheet kb - Cough, Adult, [id number] kb Forms: - Medication Reconciliation Form kb - Antibiotic Education kb - Prescription Opioid Use kb - Patient Portal Instructions kb - Leadership Thank You Letter kb Prescriptions: - albuterol sulfate 90 mcg/actuation Inhalation HFA Aerosol Inhaler - inhale 2 puff INHALATION route every 4 to 6 hours as needed for shortness of kb breath or wheezing; 1 Unspecified; Refills: 0, Product Selection Permitted - Tessalon Perles 100 mg Oral Capsule - take 1 capsule ORAL route every 8 hours As needed; 15 capsule; Refills: 0, kb Product Selection Permitted - Zithromax 500 mg Oral Tablet - take 1 tablet ORAL route once daily for 5 days; 5 tablet; Refills: 0, Product kb Selection Permitted Signatures: Dispatcher [employer] Tess Lombardi, PASTORC Mike Fragoso MD MD cha Benton, Danielle, RN RN db Analilia Dawn RN RN br2
[2024-06-13 21:36] VITALS: BP 142/76; TEMP 97.2; O2SAT 98
== END 2024-06-13 20:28 | disposition home or self-care (01) ==
LOC: ER 18:57
DX: R05.9 Cough, unspecified (principal); F41.9 Anxiety disorder, unspecified; F17.210 Nicotine dependence, cigarettes, uncomplicated
CPT/HCPCS: 87070; 36415; 71045; 99284; J7613; J7644

== ENCOUNTER 2024-09-11 22:35 | Emergency (ER) | payer OTHER ==
--- OUTSIDE RECORDS SUMMARY | 2024-09-11 22:45 | XMS REPORT | Continuity of Care Document ---
Author Name Unknown Address [address] [facility] [address] [place] [address] [facility] Address [address] [facility] [place] [address] Care Team Providers Care Satellite Specialist Name Role Phone Jared Torre Primary Care Physician [phone] JARED COLLADO Attending Clinician Unavailable Jag Magana DO Attending Clinician [phone] Paris Cordova Attending Clinician [phone] Zeinab Villalobos MD Attending Clinician + [phone] 2, [facility] Attending Clinician Unavailable ZEINAB VILLALOBOS Attending Clinician ZEINAB Kenney Attending Clinician Khanh Davis PA-C Attending Clinician [phone] Unknown, Attending Attending Clinician Tyrese Valerio Attending Clinician [phone] SHARON GAVIRIA Attending Clinician Unavailable Everette ARCHITECT MARINE, Sharon Attending Clinician + [phone] PAOLA REHMAN Attending Clinician Unavailable PAOLA REHMAN Attending Clinician Unavailable TYRESE BACA Attending Clinician Unavailable DELMY VAZQUEZ Attending Clinician Unavailtita Vazquez NP, Delmy Attending Clinician + [phone] Owen ARCHITECT MARINE, Nora Montoya Attending Clinician +[phone] PAMELA PRESLEY Attending Clinician Unavailab brittany CARVALHOP, Pamela Short Attending Clinician + [phone] LAURA LOWE Attending Clinician Unavailable Laura Joshua Attending Clinician [phone] Drake Arias Attending Clinician Unavailable Jared Torre Attending Clinician [phone] Doctor Unassigned, [place] Attending Clinician U navailable NASEEM PATTERSON Attending Clinician Unavailable NASEEM PATTERSON Attending Clinician Unavailable Kel CARVALHOP, Naseem Valdez Attending Clinician [phone] EbVickie Ken Attending Clinician [phone] VICKIE VILLALOBOS Attending Clinician Unavailable ANALISA SUAREZ Attending Clinician Unavail able GUERRERO STAHL Attending Clinician Unav ailable Provider, Ang-Rmchp Temp Attending Clinician Kia vailable Guerrero Stahl MD Attending Clinician + Analisa Field Attending Clinician + JULY RICE Attending Clinician Unavailable RAMON WILDER Attending Clinician UnaDeja Torres MA Attending Clinician Unavailabl Laura Dahl Attending Clinician [phone] Unknown, Attending Attending Clinician Unavailab DEE Boucher Attending Clinician Unavailable Pgy3 Attending Clinician Unavailable Dee Huffman MD Attending Clinician [phone] Doctor Unassigned, [place] Attending Clinician U navailable Deja Álvarez CNM Attending Clinician [phone] DEJA ÁLVAREZ Attending Clinician Unavaila KHANH Castrejon Attending Clinician Unavailable Phuong ARCHITECT MARINE, Tyrese Attending Clinician [phone] Tobias ARCHITECT MARINE, Jared Attending Clinician + [phone] Zafar ARCHITECT MARINE, Dany Banks Attending Clinician [phone] DANY CARIAS Attending Clinician Unavailab RAMÓN Trejo Attending Clinician Unavailable Yan QUINNC, Ramón Attending Clinician [phone] Pob, [facility] Main Attending Clinician Unavailtita Simon PNP, Shanita Call Attending Clinician [phone] Ramiro HERRERA, Janae Sunshine Attending Clinician Unavaila Manuel Torres Attending Clinician Unavailable Hien PACManuel Attending Clinician [phone] Lab, Ang - Db Attending Clinician Unavailable Shanon Beckham MD Attending Clinician [phone] Octavia ARCHITECT MARINE, Oumar Attending Clinician [phone] OUMAR DUDLEY Attending Clinician UnavailJuly Snider LVN Attending Clinician MARIA ISABEL Pagan Attending Clinician Unavailable Parviz ARCHITECT MARINE, Maria Isabel Attending Clinician [phone] GABRIELLE MARTÍNEZ Attending Clinician Unavailable Gabrielle Dillard Attending Clinician + [phone] Pamela Keenan Attending Clinician +[phone] GERTRUDE MILLAN Attending Clinician UnavailMINOO Garcia Attending Clinician Unavaila JAG Fay Attending Clinician Unavailable Jag Magana DO Attending Clinician +[phone] JOB KASPER Attending Clinician Unavailable Job Kasper MD Attending Clinician [phone] JIMENA MAYO Attending Clinician Unavailable Sarah LEES, aCrine Attending Clinician [phone] NORA SANCHEZ Attending Clinician Unavailtita Sanchez ARCHITECT MARINE, Nora Montoya Attending Clinician Roger HERRERA, Leidy Attending Clinician Unavailable Nurse, [facility] Attending Clinician Unava ilable Vipul LUCIANO, [place] Attending Clinician [phone] Toby Richards MD Attending Clinician [phone] TOBY RICHARDS Attending Clinician Unavailable 1, [facility] Room Attending Clinician Unavailmariah Jiménez RN, Mike Attending Clinician Unavailab brittany Ultrasound, [facility] Attending Clinician Unavaila tonio Domingo MD, Jordan Salcedo Attending Clinician [phone] Julio Da Silva APN Attending Clinician + [phone] Radha HERRERA, Lynn Lemus Attending Clinician Unavailab brittany Jamil MD, Tracey Attending Clinician [phone] Vilma LEES, Yoshi Attending Clinician +[phone] Bijan LEES, Minoo Lemus Attending Clinician + [phone] Only, [facility] Test Attending Clinician Unavailable Kevan Beaulieu MD Attending Clinician [phone] [phone], [facility] Attending Clinician Unav ailable MELODY GAO Attending Clinician Unavaila tonio Provider, [facility] Attending Clinician Un available Corazon ARCHITECT MARINE, Kvng Banks Attending Clinician [phone] Nurse, s Urgent Care Attending Clinician Unava ilable UNKNOWN, ATTENDING Attending Clinician Unavailab brittany Rivera ARCHITECT MARINE, Simba Attending Clinician [phone] ZEINAB VILLALOBOS Admitting Clinician UnaManuel Dodd Admitting Clinician Unavailable GABRIELLE MARTÍNEZ Admitting Clinician Unavailable JIMENA MAYO Admitting Clinician Unavailable Payers Payer Name Policy Type Policy Number Effective Date Expirati on Date Source [employer] MEDICAID [id number] 2019 00:00:00 [facility] [id number] 2016 00:00:00 MEDICAID PENDING PENDING 2019 00:00:00 Problems Condition Name Condition Details Condition Category Status Onset Date Resolution Date Last Treatment Date Treating Clinician Comments Source Upper respirator y tract infection, unspecifie d type Upper respirator y tract infection, unspecifie d type Disease Active 2023-02 2-16 00:00: 00 [facility] Cellulitis of mouth Cellulitis of mouth Disease Active 2023-02 2-16 00:00: 00 [facility] Prediabete s Prediabete s Disease Active 11-02 00:00: 00 [facility] Insomnia, unspecifie d type Insomnia, unspecifie d type Disease Active 11-02 00:00: 00 [facility] Chronic constipati on Chronic constipati on Disease Active 11-02 00:00: 00 [facility] Irregular menstrual cycle Irregular menstrual cycle Disease Active 09-05 00:00: 00 [facility] Encounter for other general counseling or advice on contracept ion Encounter for other general counseling or advice on contracept ion Disease Active 09-05 00:00: 00 [facility] Diverticul osis Diverticul osis Disease Active 5-20 00:00: 00 [facility] Herpes zoster without complicati on Herpes zoster without complicati on Disease Active 4-20 00:00: 00 [facility] Herpes zoster without complicati on Herpes zoster without complicati on Disease Active 4-20 00:00: 00 [facility] History of anxiety History of anxiety Disease Active 2-23 00:00: 00 [facility] Former smoker Former smoker Disease Active 2-23 00:00: 00 [facility] Obesity (BMI 35.0-39.9 without comorbidit y) Obesity (BMI 35.0-39.9 without comorbidit y) Disease Active 8-22 00:00: 00 [facility] Dizziness Dizziness Disease Resolve d 6-08 00:00: 00 2023-06-22 00:00:00 2023-06-22 13:37:48 [facility] Left arm pain Left arm pain Disease Resolve d 0 4-22 00:00: 00 2023-06-22 00:00:00 2023-06-22 13:37:44 [facility] Positive D dimer Positive D dimer Disease Resolve d 0 4-20 00:00: 00 2023-06-22 00:00:00 2023-06-22 13:37:41 [facility] BMI 32.0-32.9, adult BMI 32.0-32.9, adult Disease Resolve d 0 2-23 00:00: 00 2023-06-22 00:00:00 2023-06-22 13:37:36 [facility] Chest pain, atypical Chest pain, atypical Disease Resolve d 0 8-12 00:00: 00 2023-06-22 00:00:00 2023-06-22 13:37:19 [facility] Urinary tract infection without hematuria, site unspecifie d Urinary tract infection without hematuria, site unspecifie d Disease Resolve d 0 7-07 00:00: 00 2021-12-20 00:00:00 2021-12-20 18:50:56 [facility] Vaginal discharge Vaginal discharge Disease Resolve d 0 6-23 00:00: 00 2021-12-20 00:00:00 2021-12-20 18:50:53 [facility] Screen for STD (sexually transmitte d disease) Screen for STD (sexually transmitte d disease) Disease Resolve d 5-04 00:00: 00 2021-12-20 00:00:00 2021-12-20 18:51:33 [facility] Absence of menstruati on Absence of menstruati on Disease Resolve d 0 8-22 00:00: 00 2021-12-20 00:00:00 2021-12-20 18:50:57 [facility] Papanicola ou smear of cervix with low grade squamous intraepith elial lesion (LGSIL) Papanicola ou smear of cervix with low grade squamous intraepith elial lesion (LGSIL) Disease Resolve d 0 7-24 00:00: 00 2021-12-20 00:00:00 2021-12-20 18:51:31 [facility] Hospital discharge follow-up Hospital discharge follow-up Disease Resolve d 2021-0 4-20 00:00: 00 2021-06-10 00:00:00 2021-06-10 14:08:40 [facility] Normal labor Normal labor Disease Resolve d 2020-1 0-19 00:00: 00 2021-06-10 00:00:00 2021-06-10 14:08:45 [facility] (normal spontaneou s vaginal delivery) (normal spontaneou s vaginal delivery) Disease Resolve d 2020-1 0-19 00:00: 00 2021-06-10 00:00:00 2021-06-10 14:08:48 [facility] History of delivery History of delivery Disease Resolve d 2020-0 2-23 00:00: 00 2021-06-10 00:00:00 2021-06-10 14:08:34 [facility] History of premature rupture of membranes (PROM) in previous , currently in first trimester History of premature rupture of membranes (PROM) in previous , currently in first trimester Disease Resolve d 2020-0 2-23 00:00: 00 2021-06-10 00:00:00 2021-06-10 14:08:36 [facility] 39 weeks gestation of 39 weeks gestation of Disease Resolve d 2017-0 3-12 00:00: 00 2021-06-10 00:00:00 2021-06-10 14:08:19 [facility] Supervisio n of high risk in first trimester Supervisio n of high risk in first trimester Disease Resolve d 2017-0 1-03 00:00: 00 2021-06-10 00:00:00 2021-06-10 14:09:05 [facility] Multiparit y Multiparit y Disease Resolve d 2016-0 8-22 00:00: 00 2021-06-10 00:00:00 2021-06-10 14:08:43 [facility] Vaginal bleeding in , first trimester Vaginal bleeding in , first trimester Disease Resolve d 2020-0 2-23 00:00: 00 2020-10-16 00:00:00 2020-10-16 14:42:58 [facility] Pain pelvic Pain pelvic Disease Resolve d 2-23 00:00: 00 2020-10-16 00:00:00 2020-10-16 14:42:42 [facility] Anemia, antepartum , third trimester Anemia, antepartum , third trimester Disease Resolve d 3-13 00:00: 00 2017-05-19 00:00:00 2017-05-19 23:13:46 [facility] Anxiety and depression Anxiety and depression Disease Active 3-13 00:00: 00 2017-05-19 00:00:00 2017-05-19 23:14:13 Overview: Formattin g of this note might be different from the original. History of same,obs for same postpartu m [facility] Normal spontaneou s vaginal delivery Normal spontaneou s vaginal delivery Disease Resolve d 3-13 00:00: 00 2017-05-19 00:00:00 2017-05-19 23:14:05 [facility] Itching Itching Disease Resolve d 3-13 00:00: 00 2017-05-19 00:00:00 2017-05-19 23:14:09 [facility] Labor and delivery indication for care or interventi on Labor and delivery indication for care or interventi on Disease Resolve d -12 00:00: 00 2017-05-19 00:00:00 2017-05-19 23:14:17 [facility] Positive GBS test Positive GBS test Disease Resolve d 2-28 00:00: 00 2017-05-19 00:00:00 2017-05-19 23:13:37 [facility] Insufficie nt care in third trimester Insufficie nt care in third trimester Disease Resolve d 0 1-03 00:00: 00 2017-05-19 00:00:00 2017-05-19 23:14:01 [facility] Decreased movements in third trimester, single or unspecifie d fetus Decreased movements in third trimester, single or unspecifie d fetus Disease Resolve d 0 2-13 00:00: 00 2017-04-19 00:00:00 2017-04-19 07:49:49 [facility] Supervisio n of high risk , antepartum , first trimester Supervisio n of high risk , antepartum , first trimester Disease Resolve d 2016-0 822 00:00: 00 2017-02-09 00:00:00 2017-02-09 11:18:25 [facility] Chlamydia trachomati s infection of lower genitourin danni sites Chlamydia trachomati s infection of lower genitourin danni sites Disease Resolve d 0 724 00:00: 00 2016-07-29 00:00:00 2016-07-29 16:09:38 [facility] Allergies, Adverse Reactions, Alerts Allergy Name Allergy Type Status Severity Reaction(s) Onset Date Inactive Date Treating Clinician Comments Source No Known Allergie s DA Active U 08-21 00:00: 00 [facility] No Known Allergie s DA Active U 2012-02 00:00: 00 [facility] NO KNOWN ALLERGIE S Drug Class Active [facility] Social History Social Habit Start Date Stop Date Quantity Comments Source [facility] ASSERTION Not [facility] History of Occupation [facility] Alcoholic beverage intake 2024-09-11 00:00:00 2024-09-11 00:00:00 Ex-drinker (finding) [facility] History of Social function 2024-09-10 00:00:00 2024-09-10 00:00:00 [facility] Cigarettes smoked current (pack per day) - Reported 2023-06-22 00:00:00 2023-06-22 00:00:00 [facility] Cigarette pack-years 2023-06-22 00:00:00 2023-06-22 00:00:00 [facility] Tobacco use and exposure 2023-06-22 00:00:00 2023-06-22 00:00:00 Smokeless tobacco non-user [facility] Tobacco Comment 2023-06-22 00:00:00 2023-06-22 00:00:00 smokes 2 x socially - [facility] Exposure to SARS-CoV-2 (event) 2022-02-05 00:00:00 2022-02-15 18:53:00 Not sure [facility] Education 2020-11-25 00:00:00 2020-11-25 00:00:00 13 [facility] Alcohol Comment 2020-04-01 00:00:00 2020-04-01 00:00:00 socially [facility] History SDOH Alcohol Frequency 2020-04-01 00:00:00 2020-04-01 00:00:00 99 [facility] History SDOH Alcohol Std Drinks 2020-04-01 00:00:00 2020-04-01 00:00:00 99 [facility] History SDOH Alcohol Binge 2020-04-01 00:00:00 2020-04-01 00:00:00 99 [facility] Alcohol intake 2019-08-19 00:00:00 2019-08-19 00:00:00 Current drinker of alcohol (finding) [facility] History of tobacco use 2016-08-28 00:00:00 Cigarette Smoker [facility] Sex assigned at 1985 00:00:00 1985 00:00:00 [facility] Smoking Status Start Date Stop Date Source Ex-smoker 2023-06-22 00:00:00 2023-06-22 [facility] Ordered Medication Name Filled Medication Name Start Date Stop Date Current Medication? Ordering Clinician Indication Dosage Frequency Signature (SIG) Comments Components Source metroNIDAZO LE 500 mg tablet 09-11 00:00: 00 Yes [id number] 500mg Take 1 tablet by mouth in the morning and 1 tablet in the evening. [facility] cyclobenzap rine 10 mg tablet 09-11 00:00: 00 Yes [id number] 10mg Take 1 tablet by mouth 3 times daily as needed for Muscle Spasms. [facility] ibuprofen 600 mg tablet 729 00:00: 00 Yes [id number] 600mg Take 1 tablet by mouth every 6 hours as needed for Pain (scale 4-6). [facility] hydrOXYzine 50 mg tablet 09-04 00:00: 00 Yes [id number] 50mg Take 1 tablet by mouth at bedtime. [facility] bromphenira mine-pseudo ephedrine-D M (BROMFED DM) 2-30-10 mg/5 mL syrup 07-03 00:00: 00 09-04 00:00 :00 No [id number] 5mL Take 5 mL by mouth 4 times daily as needed for Congestion /Allergies , Cold symptoms or Cough. [facility] azithromyci n 250 mg tablet 07-03 00:00: 00 07-09 04:59 :00 Yes [id number] Take 2 tablets by mouth daily for 1 day, THEN 1 tablet daily for 4 days. [facility] ergocalcife rol, vitamin d2, 1,250 mcg (50,000 unit) capsule 07-02 00:00: 00 09-04 00:00 :00 No [id number] Take 1 capsule by mouth weekly. [facility] tirzepatide , weight loss, (ZEPBOUND) 5 mg/0.5 mL subcutaneou s injection pen 06-25 00:00: 00 09-04 00:00 :00 No [id number] 5mg inject 5 mg under the skin weekly. [facility] albuterol sulfate HFA 90 mcg/actuati on aerosol inhaler 06-12 00:00: 09-04 00:00 :00 No [id number] 2{puff} Inhale 2 Puffs every 6 (six) hours as needed for Wheezing or Shortness of Breath. [facility] promethazin e-dextromet horphan 6.25-15 mg/5 mL syrup 06-12 00:00: 00 06-25 00:00 :00 No [id number] 5mL Take 5 mL by mouth 4 (four) times daily as needed for Cough. [facility] predniSONE 10 mg tablet 06-12 00:00: 00 06-18 04:59 :00 No [id number] 40mg Take 4 tablets by mouth in the morning for 5 days. [facility] ibuprofen 600 mg tablet 03-07 00:00: 09-04 00:00 :00 No [id number] 600mg Take 1 tablet by mouth every 6 (six) hours as needed for Pain (scale 4-6). [facility] chlorhexidi ne 0.12 % mouthwash 03-07 00:00: 00 06-25 00:00 :00 No [id number] 15mL Swish and spit out 15 mL in the morning and 15 mL in the evening. [facility] penicillin v potassium 500 mg tablet 03-07 00:00: 00 03-15 05:59 :00 No [id number] 500mg Take 1 tablet by mouth 4 (four) times daily for 7 days. [facility] ketorolac (TORADOL) injection 30 mg 2023-02 01:52: 00 01-26 01:55 :00 No [id number] 30mg 30 mg, Intramuscu lar, ONCE, 1 dose, On Nel 01/26/24 at 2000, Routine [facility] cefTRIAXone (ROCEPHIN) injection 1,000 mg 2023-02 01:25: 00 01-26 01:33 :00 No [id number] 1000mg 1,000 mg, Intramuscu lar, ONCE, 1 dose, On Nel 01/26/24 at 1930, [place], Reason for Anti-Infec tive: Documented Infection, Documented Infection Site: HEENT, Duration of Therapy: Other (see Comments) [facility] traMADoL 50 mg tablet 2023-02 00:00: 00 01-29 05:59 :00 No [id number] 50mg Take 1 tablet by mouth every 8 (eight) hours as needed for Pain (scale 7-10) for up to 3 days. Indication s: acute pain [facility] bromphenira mine-pseudo ephedrine-D M (BROMFED DM) 2-30-10 mg/5 mL syrup 2023-02 2-16 00:00: 00 02-02 05:59 :00 No [id number] 10mL Take 10 mL by mouth 4 (four) times daily as needed for Congestion /Allergies for up to 10 days. [facility] amoxicillin -clavulanat e (AUGMENTIN) 875-125 mg per tablet 2023-02-16 00:00: 00 01-30 05:59 :00 No [id number] 1{tbl} Take 1 tablet by mouth in the morning and 1 tablet in the evening. Do all this for 7 days. [facility] ibuprofen (IBU) tablet 800 mg 2023-02 16:00: 00 12-28 16:23 :00 No 800mg 800 mg, Oral, ONCE, 1 dose, On Nel 12/29/23 at 1000, [place] [facility] Nitrofurant oin&Nit. Macrocryst 100 mg capsule 2023-02 00:00: 00 06-25 00:00 :00 No [id number] 100mg Take 1 capsule by mouth in the morning and 1 capsule in the evening. [facility] ibuprofen 800 mg tablet 2023-02 00:00: 00 03-07 00:00 :00 No [id number] 100 800mg Take 1 tablet by mouth 3 (three) times daily as needed for Pain (scale 4-6). [facility] medroxyPROG ESTERone (PROVERA) 5 mg tablet 2023-02 00:00: 00 01-03 05:59 :00 No [id number] 100 5mg Take 1 tablet by mouth in the morning and 1 tablet at noon and 1 tablet in the evening. Do all this for 5 days. [facility] SERTraline (ZOLOFT) 50 mg tablet 2023-02 00:00: 00 09-04 00:00 :00 No [id number] 50mg Take 1 tablet by mouth at bedtime. [facility] traZODone 50 mg tablet 2023-02 00:00: 00 09-04 00:00 :00 No [id number] 50mg Take 1 tablet by mouth at bedtime. [facility] ergocalcife rol, vitamin d2, 1,250 mcg (50,000 unit) capsule 2023-02 00:00: 00 07-02 00:00 :00 No [id number] 93974M Take 1 capsule by mouth weekly. [facility] tirzepatide , weight loss, (ZEPBOUND) 2.5 mg/0.5 mL subcutaneou s injection pen [id number] 2023-02 00:00: 00 06-25 00:00 :00 No [id number] 2.5mg inject 2.5 mg under the skin weekly. [facility] predniSONE 20 mg tablet 2023-02 00:00: 00 11-13 04:59 :00 No [id number] 40mg Take 2 tablets by mouth in the morning for 5 days. [facility] polyethylen e glycol [id number] 17 gram/dose powder 11-02 00:00: 00 06-25 00:00 :00 No [id number] 17g Take 17 g by mouth 2 (two) times daily as needed for Constipati on. [facility] SERTraline (ZOLOFT) 50 mg tablet 11-02 00:00: 00 12-14 00:00 :00 No [id number] 50mg Take 1 tablet by mouth in the morning. [facility] traZODone 50 mg tablet 11-02 00:00: 00 12-14 00:00 :00 No [id number] 50mg Take 1 tablet by mouth at bedtime. [facility] norethindro ne 0.35 mg tablet 09-05 00:00: 00 06-25 00:00 :00 No [id number] 1{tbl} Take 1 tablet by mouth in the morning. [facility] norethindro ne 0.35 mg tablet 5-15 00:00: 00 09-05 00:00 :00 No [id number] 1{tbl} Take 1 tablet by mouth in the morning. [facility] busPIRone 10 mg tablet 02-15 19:02: 28 Yes 10mg Take 10 mg by mouth as needed. [facility] azithromyci n (ZITHROMAX Z-MARICHUY) 250 mg tablet 02-15 00:00: 00 06-21 00:00 :00 No [id number] Z pack as directed [facility] benzonatate 200 mg capsule 02-15 00:00: 00 02-26 05:59 :00 No [id number] 200mg Take 1 capsule by mouth 3 (three) times daily as needed for Cough for up to 10 days. [facility] albuterol 90 mcg/actuati on inhaler 02-15 00:00: 00 02-26 05:59 :00 No [id number] 2{puff} Inhale 2 Puffs every 6 (six) hours as needed for Wheezing for up to 10 days. [facility] ampicillin 500 mg capsule 2021-02 00:00: 00 06-21 00:00 :00 No [id number] 500mg Take 1 capsule by mouth every 6 (six) hours. [facility] ampicillin 500 mg capsule 2021-02 00:00: 00 01-01 05:59 :00 No [id number] 500mg Take 1 capsule by mouth every 6 (six) hours for 10 days. [facility] norethindro ne 0.35 mg tablet 2021-02 00:00: 00 06-21 00:00 :00 No [id number] 1{tbl} Take 1 tablet by mouth in the morning. [facility] metroNIDAZO LE 500 mg tablet 2021-02 00:00: 00 12-26 05:59 :00 No [id number] 500mg Take 1 tablet by mouth in the morning and 1 tablet in the evening. Do all this for 7 days. [facility] ampicillin 500 mg capsule 08-21 00:00: 00 09-01 04:59 :00 No [id number] 500mg Take 1 capsule by mouth 4 (four) times daily for 10 days. [facility] citalopram 10 mg tablet -13 00:00: 00 06-21 00:00 :00 No [id number] 10mg Take 1 tablet by mouth in the morning. [facility] ibuprofen 600 mg tablet 6 00:00: 00 06-21 00:00 :00 No [id number] 600mg Take 1 tablet by mouth every 6 (six) hours as needed for Pain (scale 4-6). [facility] busPIRone 10 mg tablet 07-15 17:04: 42 06-21 00:00 :00 No 10mg Take 1 tablet by mouth as needed. [facility] vit 33-iron-fol ic-dha (SELECT-OB + DHA) 29 mg iron-1 mg -250 mg combo pack 08-27 00:00: 00 06-10 00:00 :00 No 1{packe t} Take 1 Packet by mouth daily. [facility] cyclobenzap rine 5 mg tablet 8-14 00:00: 00 04-01 00:00 :00 No [id number] 5mg Take 1 tablet by mouth 2 (two) times daily as needed for Muscle Spasms. Can cause drowsiness . [facility] gabapentin 100 mg capsule 8-12 00:00: 00 04-01 00:00 :00 No [id number] 100mg Take 1 capsule by mouth 3 (three) times daily as needed (nerve pain). [facility] Immunizations Ordered Immunization Name Filled Immunization Name Date Status Comments Source TD 2023-09-06 10:30:00 Completed [facility] TDAP 2023-06-22 06:45:00 Completed [facility] TDAP 2023-06-22 00:00:00 Completed [facility] TDAP 2021-08-17 00:00:00 Completed [facility] TDAP 2021-08-12 00:00:00 Completed [facility] TDAP 2021-08-04 00:00:00 Completed [facility] TDAP 2021-08-03 00:00:00 Completed [facility] TDAP 2021-08-03 00:00:00 Completed [facility] TDAP 2021-07-06 00:00:00 Completed [facility] TDAP 2021-06-12 00:00:00 Completed [facility] TDAP 2020-11-18 00:00:00 Completed [facility] TDAP 2020-09-18 00:00:00 Completed [facility] TDAP 2020-09-15 00:00:00 Completed [facility] TDAP 2020-09-15 00:00:00 Completed [facility] TDAP 2020-09-15 00:00:00 Completed [facility] TDAP 2020-09-15 00:00:00 Completed [facility] TDAP 2020-09-15 00:00:00 Completed [facility] TDAP 2020-09-15 00:00:00 Completed [facility] TDAP 2020-09-15 00:00:00 Completed [facility] TDAP 2020-09-15 00:00:00 Completed [facility] TDAP 2020-09-15 00:00:00 Completed [facility] TDAP 2020-09-15 00:00:00 Completed [facility] TDAP 2020-09-15 00:00:00 Completed [facility] TDAP 2020-09-15 00:00:00 Completed [facility] TDAP 2020-09-15 00:00:00 Completed [facility] TDAP 2020-09-15 00:00:00 Completed [facility] TDAP 2020-09-15 00:00:00 Completed [facility] TDAP 2019-10-01 00:00:00 Completed [facility] TDAP 2019-09-21 00:00:00 Completed [facility] TDAP 2019-08-21 00:00:00 Completed [facility] TDAP 2017-02-09 00:00:00 Completed [facility] TDAP 2017-02-09 00:00:00 Completed [facility] TDAP 2017-02-09 00:00:00 Completed [facility] TDAP 2017-02-09 00:00:00 Completed [facility] TDAP 2017-02-09 00:00:00 Completed [facility] TDAP 2017-02-09 00:00:00 Completed [facility] TDAP 2017-02-09 00:00:00 Completed [facility] TDAP 2017-02-09 00:00:00 Completed [facility] TDAP 2017-02-09 00:00:00 Completed [facility] TDAP 2017-02-09 00:00:00 Completed [facility] TDAP 2017-02-09 00:00:00 Completed [facility] TDAP 2017-02-09 00:00:00 Completed [facility] TDAP 2017-02-09 00:00:00 Completed [facility] TDAP 2017-02-09 00:00:00 Completed [facility] TDAP 2017-02-09 00:00:00 Completed [facility] TDAP 2007-02-07 00:00:00 Completed [facility] TDAP 2007-02-07 00:00:00 Completed [facility] TDAP 2007-02-07 00:00:00 Completed [facility] TDAP 2007-02-07 00:00:00 Completed [facility] TDAP 2007-02-07 00:00:00 Completed [facility] TDAP 2007-02-07 00:00:00 Completed [facility] TDAP 2007-02-07 00:00:00 Completed [facility] TDAP 2007-02-07 00:00:00 Completed [facility] TDAP 2007-02-07 00:00:00 Completed [facility] TDAP 2007-02-07 00:00:00 Completed [facility] TDAP 2007-02-07 00:00:00 Completed [facility] TDAP 2007-02-07 00:00:00 Completed [facility] TDAP 2007-02-07 00:00:00 Completed [facility] TDAP 2007-02-07 00:00:00 Completed [facility] Vital Signs Vital Name Observation Time Observation Value Comments S ource Systolic blood pressure 2024-09-11 23:51:24 117 mm[Hg] [facility] Diastolic blood pressure 2024-09-11 23:51:24 73 mm[Hg] [facility] Heart rate 2024-09-11 23:51:24 82 /min [facility] Body temperature 2024-09-11 23:51:24 37.33 Brigitte [facility] Respiratory rate 2024-09-11 23:51:24 18 /min [facility] Oxygen saturation in Arterial blood by Pulse oximetry 2024-09-11 23:51:24 94 /min [facility] Body height 2024-09-11 22:44:00 154.9 cm [facility] Body weight 2024-09-11 22:44:00 88.451 kg [facility] BMI 2024-09-11 22:44:00 36.84 kg/m2 [facility] Systolic blood pressure 2024-09-11 19:19:00 116 mm[Hg] [facility] Diastolic blood pressure 2024-09-11 19:19:00 79 mm[Hg] [facility] Heart rate 2024-09-11 19:19:00 92 /min [facility] Body temperature 2024-09-11 19:19:00 36.67 Brigitte [facility] Respiratory rate 2024-09-11 19:19:00 18 /min [facility] Body height 2024-09-11 19:19:00 154.9 cm [facility] Body weight 2024-09-11 19:19:00 88.542 kg [facility] BMI 2024-09-11 19:19:00 36.88 kg/m2 [facility] Oxygen saturation in Arterial blood by Pulse oximetry 2024-09-11 19:19:00 96 /min [facility] Systolic blood pressure 2024-09-10 18:05:00 119 mm[Hg] [facility] Diastolic blood pressure 2024-09-10 18:05:00 80 mm[Hg] [facility] Heart rate 2024-09-10 18:05:00 83 /min [facility] Body temperature 2024-09-10 18:05:00 36.78 Brigitte [facility] Respiratory rate 2024-09-10 18:05:00 18 /min [facility] Body height 2024-09-10 18:05:00 154.9 cm [facility] Body weight 2024-09-10 18:05:00 87.816 kg [facility] BMI 2024-09-10 18:05:00 36.58 kg/m2 [facility] Systolic blood pressure 2024-09-04 21:51:00 112 mm[Hg] [facility] Diastolic blood pressure 2024-09-04 21:51:00 80 mm[Hg] [facility] Heart rate 2024-09-04 21:51:00 93 /min [facility] Body temperature 2024-09-04 21:51:00 36.94 Brigitte [facility] Respiratory rate 2024-09-04 21:51:00 19 /min [facility] Body height 2024-09-04 21:51:00 154.9 cm [facility] Body weight 2024-09-04 21:51:00 87.176 kg [facility] BMI 2024-09-04 21:51:00 36.31 kg/m2 [facility] Oxygen saturation in Arterial blood by Pulse oximetry 2024-09-04 21:51:00 98 /min [facility] Systolic blood pressure 2024-07-03 19:55:00 103 mm[Hg] [facility] Diastolic blood pressure 2024-07-03 19:55:00 72 mm[Hg] [facility] Heart rate 2024-07-03 19:55:00 89 /min [facility] Body temperature 2024-07-03 19:55:00 37.44 Brigitte [facility] Respiratory rate 2024-07-03 19:55:00 19 /min [facility] Body height 2024-07-03 19:55:00 154.9 cm [facility] Body weight 2024-07-03 19:55:00 89.585 kg [facility] BMI 2024-07-03 19:55:00 37.32 kg/m2 [facility] Oxygen saturation in Arterial blood by Pulse oximetry 2024-07-03 19:55:00 98 /min [facility] Systolic blood pressure 2024-06-25 19:01:00 109 mm[Hg] [facility] Diastolic blood pressure 2024-06-25 19:01:00 76 mm[Hg] [facility] Heart rate 2024-06-25 19:01:00 94 /min [facility] Body height 2024-06-25 19:01:00 154.9 cm [facility] Body weight 2024-06-25 19:01:00 89.631 kg [facility] BMI 2024-06-25 19:01:00 37.34 kg/m2 [facility] Oxygen saturation in Arterial blood by Pulse oximetry 2024-06-25 19:01:00 98 /min [facility] Systolic blood pressure 2024-06-12 15:52:00 120 mm[Hg] [facility] Diastolic blood pressure 2024-06-12 15:52:00 79 mm[Hg] [facility] Heart rate 2024-06-12 15:52:00 92 /min [facility] Body temperature 2024-06-12 15:52:00 36.89 Brigitte [facility] Respiratory rate 2024-06-12 15:52:00 16 /min [facility] Body height 2024-06-12 15:52:00 154.9 cm per pt [facility] Body weight 2024-06-12 15:52:00 90.351 kg [facility] BMI 2024-06-12 15:52:00 37.64 kg/m2 [facility] Oxygen saturation in Arterial blood by Pulse oximetry 2024-06-12 15:52:00 97 /min [facility] Respiratory rate 2024-03-07 22:29:00 14 /min [facility] Body height 2024-03-07 22:29:00 154.9 cm [facility] Body weight 2024-03-07 22:29:00 90.992 kg [facility] BMI 2024-03-07 22:29:00 37.90 kg/m2 [facility] Oxygen saturation in Arterial blood by Pulse oximetry 2024-03-07 22:29:00 97 /min [facility] Systolic blood pressure 2024-03-07 22:29:00 128 mm[Hg] [facility] Diastolic blood pressure 2024-03-07 22:29:00 86 mm[Hg] [facility] Heart rate 2024-03-07 22:29:00 89 /min [facility] Body temperature 2024-03-07 22:29:00 37.11 Brigitte [facility] Systolic blood pressure 2024-01-27 01:08:00 116 mm[Hg] [facility] Diastolic blood pressure 2024-01-27 01:08:00 81 mm[Hg] [facility] Heart rate 2024-01-27 01:08:00 83 /min [facility] Body temperature 2024-01-27 01:08:00 36.33 Brigitte [facility] Respiratory rate 2024-01-27 01:08:00 14 /min [facility] Body height 2024-01-27 01:08:00 154.9 cm [facility] Body weight 2024-01-27 01:08:00 90.629 kg [facility] BMI 2024-01-27 01:08:00 37.75 kg/m2 [facility] Oxygen saturation in Arterial blood by Pulse oximetry 2024-01-27 01:08:00 98 /min [facility] Systolic blood pressure 2024-01-23 22:16:00 116 mm[Hg] [facility] Diastolic blood pressure 2024-01-23 22:16:00 72 mm[Hg] [facility] Heart rate 2024-01-23 22:16:00 105 /min [facility] Body temperature 2024-01-23 22:16:00 37.44 Brigitte [facility] Respiratory rate 2024-01-23 22:16:00 18 /min [facility] Body height 2024-01-23 22:16:00 154.9 cm [facility] Body weight 2024-01-23 22:16:00 89.359 kg [facility] BMI 2024-01-23 22:16:00 37.22 kg/m2 [facility] Oxygen saturation in Arterial blood by Pulse oximetry 2024-01-23 22:16:00 96 /min [facility] Systolic blood pressure 2024-01-19 16:36:00 104 mm[Hg] [facility] Diastolic blood pressure 2024-01-19 16:36:00 72 mm[Hg] [facility] Heart rate 2024-01-19 16:36:00 94 /min [facility] Body temperature 2024-01-19 16:36:00 37 Brigitte [facility] Respiratory rate 2024-01-19 16:36:00 18 /min [facility] Body height 2024-01-19 16:36:00 154.9 cm [facility] Body weight 2024-01-19 16:36:00 89.359 kg [facility] BMI 2024-01-19 16:36:00 37.22 kg/m2 [facility] Systolic blood pressure 2023-12-29 17:50:00 108 mm[Hg] [facility] Diastolic blood pressure 2023-12-29 17:50:00 83 mm[Hg] [facility] Heart rate 2023-12-29 17:50:00 80 /min [facility] Body temperature 2023-12-29 17:50:00 36.61 Brigitte [facility] Respiratory rate 2023-12-29 17:50:00 16 /min [facility] Oxygen saturation in Arterial blood by Pulse oximetry 2023-12-29 17:50:00 98 /min [facility] Body height 2023-12-29 15:08:00 154.9 cm [facility] Body weight 2023-12-29 15:08:00 89.359 kg [facility] BMI 2023-12-29 15:08:00 37.22 kg/m2 [facility] Systolic blood pressure 2023-12-15 21:55:00 93 mm[Hg] [facility] Diastolic blood pressure 2023-12-15 21:55:00 60 mm[Hg] [facility] Heart rate 2023-12-15 21:55:00 100 /min [facility] Respiratory rate 2023-12-15 21:55:00 18 /min [facility] Body height 2023-12-15 21:55:00 154.9 cm [facility] Body weight 2023-12-15 21:55:00 89.676 kg [facility] BMI 2023-12-15 21:55:00 37.36 kg/m2 [facility] Oxygen saturation in Arterial blood by Pulse oximetry 2023-12-15 21:55:00 96 /min [facility] Systolic blood pressure 2023-11-08 15:48:00 112 mm[Hg] [facility] Diastolic blood pressure 2023-11-08 15:48:00 75 mm[Hg] [facility] Heart rate 2023-11-08 15:48:00 95 /min [facility] Body temperature 2023-11-08 15:48:00 36.89 Brigitte [facility] Respiratory rate 2023-11-08 15:48:00 20 /min [facility] Body height 2023-11-08 15:48:00 154.9 cm [facility] Body weight 2023-11-08 15:48:00 89.495 kg [facility] BMI 2023-11-08 15:48:00 37.28 kg/m2 [facility] Oxygen saturation in Arterial blood by Pulse oximetry 2023-11-08 15:48:00 96 /min [facility] Systolic blood pressure 2023-11-03 20:19:00 118 mm[Hg] [facility] Diastolic blood pressure 2023-11-03 20:19:00 77 mm[Hg] [facility] Heart rate 2023-11-03 20:19:00 113 /min [facility] Body height 2023-11-03 20:19:00 154.9 cm [facility] Body weight 2023-11-03 20:19:00 89.585 kg [facility] BMI 2023-11-03 20:19:00 37.32 kg/m2 [facility] Oxygen saturation in Arterial blood by Pulse oximetry 2023-11-03 20:19:00 97 /min [facility] Systolic blood pressure 2023-09-06 15:20:00 125 mm[Hg] [facility] Diastolic blood pressure 2023-09-06 15:20:00 80 mm[Hg] [facility] Heart rate 2023-09-06 15:20:00 93 /min [facility] Body temperature 2023-09-06 15:20:00 36.72 Brigitte [facility] Body height 2023-09-06 15:20:00 154.9 cm [facility] Body weight 2023-09-06 15:20:00 87.998 kg [facility] BMI 2023-09-06 15:20:00 36.66 kg/m2 [facility] Systolic blood pressure 2023-06-22 12:10:00 120 mm[Hg] [facility] Diastolic blood pressure 2023-06-22 12:10:00 85 mm[Hg] [facility] Heart rate 2023-06-22 12:10:00 89 /min [facility] Body temperature 2023-06-22 12:10:00 36.5 Brigitte [facility] Respiratory rate 2023-06-22 12:10:00 29 /min [facility] Body height 2023-06-22 12:10:00 154.9 cm [facility] Body weight 2023-06-22 12:10:00 86.183 kg [facility] BMI 2023-06-22 12:10:00 35.90 kg/m2 [facility] Systolic blood pressure 2022-02-16 01:01:00 124 mm[Hg] [facility] Diastolic blood pressure 2022-02-16 01:01:00 87 mm[Hg] [facility] Heart rate 2022-02-16 01:01:00 94 /min [facility] Body temperature 2022-02-16 01:01:00 37.33 Brigitte [facility] Respiratory rate 2022-02-16 01:01:00 17 /min [facility] Body height 2022-02-16 01:01:00 154.9 cm [facility] Body weight 2022-02-16 01:01:00 82.781 kg [facility] BMI 2022-02-16 01:01:00 34.48 kg/m2 [facility] Oxygen saturation in Arterial blood by Pulse oximetry 2022-02-16 01:01:00 100 /min [facility] Systolic blood pressure 2022-01-08 19:57:00 123 mm[Hg] [facility] Diastolic blood pressure 2022-01-08 19:57:00 78 mm[Hg] [facility] Heart rate 2022-01-08 19:57:00 103 /min [facility] Body temperature 2022-01-08 19:57:00 36 Brigitte [facility] Respiratory rate 2022-01-08 19:57:00 18 /min [facility] Body height 2022-01-08 19:57:00 154.9 cm [facility] Body weight 2022-01-08 19:57:00 82.056 kg [facility] BMI 2022-01-08 19:57:00 34.18 kg/m2 [facility] Systolic blood pressure 2021-12-18 20:33:00 110 mm[Hg] [facility] Diastolic blood pressure 2021-12-18 20:33:00 70 mm[Hg] [facility] Heart rate 2021-12-18 20:33:00 96 /min [facility] Body temperature 2021-12-18 20:33:00 36.56 Brigitte [facility] Respiratory rate 2021-12-18 20:33:00 17 /min [facility] Body height 2021-12-18 20:33:00 154.9 cm [facility] Body weight 2021-12-18 20:33:00 79.742 kg [facility] BMI 2021-12-18 20:33:00 33.22 kg/m2 [facility] Procedures Procedure Date / Time Performed Performing Clinician Source POCUS DVT US 2024-09-11 23:10:10 Candida Sanchez [facility] XR CHEST 2 VW 2024-07-03 20:25:32 Sharon Gaviria [facility] POCT MOLECULAR STREP 2024-07-03 20:23:00 Unknown, Ilir mckeon [facility] COMP. METABOLIC PANEL (02167) 2024-06-27 16:18:00 Tyrese Baca [facility] CBC WITH DIFF 2024-06-27 16:18:00 Tyrese Baca [facility] US PELVIS COMPLETE WITH TRANSVAGINAL 2024-06-14 16:48:34 KaylahJames Zeinab [facility] POCT TEST 2024-03-07 22:48:00 Yolanda Fuentes [facility] POCT SARS-COV-2 ANTIGEN (BINAX NOW) 2024-03-07 22:48:00 Khanh Fuentes [facility] POCT MOLECULAR FLU 2024-03-07 22:39:00 Aashish Presley [facility] POCT MOLECULAR STREP 2024-03-07 22:35:00 Mookie Presley [facility] POCT MOLECULAR FLU 2024-01-23 22:16:00 [facility] 2024-01-23 22:13:00 Jared Collado [facility] CBC WITH DIFF 2023-12-29 16:20:00 Naseem Patterson [facility] URINALYSIS 2023-12-29 16:20:00 Naseem Patterson [facility] POCT TEST 2023-12-29 16:20:00 Naseem Patterson [facility] POCT MOLECULAR STREP 2023-11-08 15:52:00 Davon, Ilir mckeon [facility] POCT TEST 2023-06-22 00:00:00 July Rice [facility] DISCLOSURE AND CONSENT, MEDICAL AND SURGICAL PROCEDURES 2022-01-08 06:01:00 Doctor Unassigned, [place] [facility] HCV ANTIBODY 2021-12-18 21:53:00 Deja Álvarez [facility] URINE CULTURE 2021-12-18 21:53:00 Deja Álvarez [facility] HIV 1/2 AG-AB WITH REFLEX 2021-12-18 21:53:00 Deja Álvarez [facility] PAP SMEAR-LIQUID BASED-CP 2021-12-18 21:53:00 Deja Álvarez [facility] GALV ONLY - SYPHILIS IGG/IGM 2021-12-18 21:53:00 Deja Álvarez [facility] URINE CULTURE 2021-12-18 21:53:00 Deja Álvarez [facility] GC & CHLAMYDIA AMPLIFIED ASSAY 2021-12-18 21:53:00 Deja Álvarez [facility] HIGH RISK HPV-THIN PREP 2021-12-18 21:53:00 Deja Álvarez [facility] TRICHOMONAS AMPLIFIED ASSAY 2021-12-18 21:53:00 Deja Álvarez [facility] POCT TEST 2021-12-18 00:00:00 Nidhi Álvarez [facility] POCT URINALYSIS W/O SPECIFIC GRAVITY 2021-12-18 00:00:00 Deja Álvarez [facility] NOTICE OF PRIVACY PRACTICES 2020-11-25 18:05:51 Doctor Unassigned, [place] [facility] CONSENT/REFUSAL FOR DIAGNOSIS AND TREATMENT 2020-11-25 18:05:16 Doctor Unassigned, [place] [facility] Plan of Care Planned Activity Planned Date Details Comments Source Encounters Start Date/Time End Date/Time Encounter Type Admission Type Attending Clinicians Care Facility Care Department Encounter ID Source 2020-12-07 15:42:49 Emergency [facility] [id number] [facility] 2020-12-07 01:14:36 Emergency [facility] [id number] [facility] 2020-12-05 06:56:18 Emergency [facility] [id number] [facility] 2020-12-05 06:14:29 Emergency [facility] [id number] [facility] 2024-09-12 10:00:00 2024-09-12 10:00:00 Outpatient R JARED COLLADO [facility] [id number] [facility] 2024-09-11 17:46:00 2024-09-11 18:56:00 Emergency X Jag Magana [facility] [id number] 350.1.13.10 4.2.7.2.686 [id number] [facility] 2024-09-11 14:20:00 2024-09-11 14:34:34 Urgent Care R Paris Matthew [facility] 1.20.114 350.1.13.10 4.2.7.2.686 [id number] [facility] 2024-09-11 00:00:00 2024-09-11 12:32:49 Case Management [facility] 1.20.114 350.1.13.10 4.2.7.2.686 [id number] [facility] 2024-09-10 13:30:00 2024-09-10 13:43:54 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 R 2, Adc Lab Pearl Tysonsol 2, Adc Lab [facility] [id number] 350.1.13.10 4.2.7.2.686 [id number] [facility] 2024-09-10 13:00:00 2024-09-10 13:17:39 Office Visit R Katarina simeon, Zeinab [facility] [place] [facility] 1.284.114 350.1.13.10 4.2.7.2.686 [id number] [facility] 2024-09-10 09:00:00 2024-09-10 09:00:00 Outpatient R KAYLAH-VANESA S, ZEINAB KAYLAH-VANESA S, ZEINAB [facility] [id number] [facility] 2024-09-04 16:45:00 2024-09-04 17:20:10 Urgent Care Khanh Aguirre, Attending [facility] [id number] 350.1.13.10 4.2.7.2.686 [id number] [facility] 2024-07-02 00:00:00 2024-08-04 18:26:38 [facility] 1.84.114 350.1.13.10 4.2.7.2.686 [id number] [facility] 2024-06-26 00:00:00 2024-07-28 18:22:47 Patient Secure Msg Tyrese Baca [facility] 1.84.114 350.1.13.10 4.2.7.2.686 [id number] [facility] 2024-06-27 00:00:00 2024-07-28 18:18:41 Patient Secure [facility] [id number] 350.1.13.10 4.2.7.2.686 [id number] [facility] 2024-07-12 09:30:00 2024-07-12 09:30:00 Outpatient SHARON NELSON [facility] [id number] [facility] 2024-07-03 15:17:43 2024-07-03 23:59:00 [facility] [id number] 350.1.13.10 4.2.7.2.686 [id number] [facility] 2024-07-03 14:40:00 2024-07-03 15:49:19 [facility] 1.2840.114 350.1.13.10 4.2.7.2.686 [id number] [facility] 2024-07-03 15:40:00 2024-07-03 15:40:00 Outpatient Jocelyn SARAHREHMAN CIRAMariah REHMAN PAOLA [facility] [id number] [facility] 2024-06-27 11:45:00 2024-06-27 11:19:26 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 Jocelyn BACA COUNT INCLUDES THE [facility] 1.84.114 350.1.13.10 4.2.7.2.686 [id number] [facility] 2024-06-20 00:00:00 2024-06-25 16:24:03 Patient Secure Msg Ph[facility] 1.2.114 350.1.13.10 4.2.7.2.686 [id number] [facility] 2024-06-25 14:00:00 2024-06-25 14:36:29 [facility] 1.0.114 350.1.13.10 4.2.7.2.686 [id number] [facility] 2024-06-25 00:00:00 2024-06-25 14:10:36 [facility] 1.0.114 350.1.13.10 4.2.7.2.686 [id number] [facility] 2024-06-14 11:08:34 2024-06-14 23:59:00 Outpatient R ADRIAN-VANESA S, ZEINAB ADRIAN-VANESA S, ZEINAB [facility] [id number] [facility] 2024-06-14 11:08:34 2024-06-14 23:59:00 Hospital Encounter R ADRIAN-VANESA S, ZEINAB ADRIAN-VANESA S, ZEINAB [facility] 1..114 350.1.13.10 4.2.7.2.686 [id number] [facility] 2024-06-12 10:40:00 2024-06-12 11:24:44 Outpatient R DELMY VAZQUEZ [facility] [id number] [facility] 2024-06-12 10:40:00 2024-06-12 11:24:44 Urgent Care Delmy Vazquez Unknown, Attending [facility] 1..114 350.1.13.10 4.2.7.2.686 [id number] [facility] 2020-11-24 00:00:00 2024-03-24 02:52:50 Orders Only Nora Sanchez [facility] [address] PAT[address] PILOT [facility] 1.0.114 350.1.13.10 4.2.7.2.686 [id number] [facility] 2024-03-19 16:00:00 2024-03-19 16:00:00 Outpatient R TYRESE BACA [facility] [id number] [facility] 2024-03-14 14:30:00 2024-03-14 14:30:00 Outpatient R JARED COLLADO [facility] [id number] [facility] 2024-03-07 16:20:00 2024-03-07 17:16:43 Outpatient R PAMELA PRESLEY [facility] [id number] [facility] 2024-03-07 16:20:00 2024-03-07 17:16:43 Urgent Care Pamela Presley Unknown, Attending [facility] 1..840.114 350.1.13.10 4.2.7.2.686 [id number] [facility] 2024 19:00:00 2024 19:35:31 Outpatient R LAURA LOWE [facility] [id number] [facility] 2024 19:00:00 2024 19:35:31 Urgent Care Laura Lowe Unknown, Attending [facility] 1..840.114 350.1.13.10 4.2.7.2.686 [id number] [facility] 2024-01-25 00:00:00 2024-01-25 00:00:00 Outpatient R ADRIAN-VANESA S, ZEINAB ADRIAN-VANESA S, ZEINAB [facility] [id number] [facility] 2024-01-23 16:45:00 2024-01-23 17:00:00 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 Lab, Ang - Db Jared Collado Lab, Ang - Db [facility] 1..840.114 350.1.13.10 4.2.7.2.686 [id number] [facility] 2024-01-23 16:00:00 2024-01-23 16:43:00 Outpatient R JARED COLLADO [facility] [id number] [facility] 2024-01-23 16:00:00 2024-01-23 16:43:00 Office Visit [facility] 1.2.840.114 350.1.13.10 4.2.7.2.686 [id number] [facility] 2024-01-23 13:00:00 2024-01-23 13:00:00 Outpatient R [facility] [id number] [facility] 2023-12-16 00:00:00 2024-01-21 18:22:36 Patient Secure Msg Doctor Unassigned, [place] Doctor Unassigned, [place] [facility] 1.2.840.114 350.1.13.10 4.2.7.2.686 [id number] [facility] 2024-01-19 10:30:00 2024-01-19 11:06:19 Outpatient R KATARINA Simeon ZEINABMELYSSA Simeon ZEINAB [facility] [id number] [facility] 2024-01-19 10:30:00 2024-01-19 11:06:19 Office Visit Katarina simeon Zeinab [facility] 1.2.840.114 350.1.13.10 4.2.7.2.686 [id number] [facility] 2023-12-29 09:10:00 2023-12-29 11:53:00 Emergency X [facility] [id number] [facility] 2023-12-29 09:10:00 2023-12-29 11:53:00 Emergency Naseem Patterson Courtney [facility] 1..840.114 350.1.13.10 4.2.7.2.686 [id number] [facility] 2023-12-19 00:00:00 2023-12-19 09:42:25 Patient Secure Msg Doctor Unassigned, [place] Doctor Unassigned, [place] [facility] 1..840.114 350.1.13.10 4.2.7.2.686 [id number] [facility] 2023-12-15 16:45:00 2023-12-15 17:00:00 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 Lab, Tyrese Mckinnon, Drake Jose [facility] 1..840.114 350.1.13.10 4.2.7.2.686 [id number] [facility] 2023-12-15 16:45:00 2023-12-15 16:45:00 Outpatient R TYRESE BACA [facility] [id number] [facility] 2023-12-15 16:00:00 2023-12-15 16:30:00 [facility] 1..840.114 350.1.13.10 4.2.7.2.686 [id number] [facility] 2023-12-13 16:30:00 2023-12-13 16:30:00 Outpatient R TYRESE BACA [facility] [id number] [facility] 2023-12-07 09:30:00 2023-12-07 09:30:00 Outpatient R [facility] [id number] [facility] 2023-11-08 00:00:00 2023-11-09 09:33:55 Patient Secure Msg [facility] 1.2.840.114 350.1.13.10 4.2.7.2.686 [id number] [facility] 2023-11-08 10:20:00 2023-11-08 10:40:00 Urgent Care Vickie Villalobos Unknown, Attending [facility] 1..840.114 350.1.13.10 4.2.7.2.686 [id number] [facility] 2023-11-08 10:20:00 2023-11-08 10:20:00 Outpatient R VICKIE VILLALOBOS [facility] [id number] [facility] 2023-11-04 11:00:00 2023-11-04 11:15:00 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 Lab, Ang - Tyrese Rivera Lab, Ang - Damon [facility] 1..840.114 350.1.13.10 4.2.7.2.686 [id number] [facility] 2023-11-04 11:00:00 2023-11-04 11:00:00 Outpatient R PHUONG TYRESE [facility] [id number] [facility] 2023-11-03 15:30:00 2023-11-03 15:54:44 Outpatient R TYRESE BACA [facility] [id number] [facility] 2023-11-03 15:30:00 2023-11-03 15:54:44 Office [facility] 1..840.114 350.1.13.10 4.2.7.2.686 [id number] [facility] 2023-11-01 16:15:45 2023-11-01 16:15:45 Outpatient [facility] [id number] Colton Persaud 2023-10-28 13:31:52 2023-10-28 13:31:52 Outpatient S[facility] [id number] Colton Persaud 2023-09-06 10:30:00 2023-09-06 11:01:05 Outpatient R GUERRERO STEWART [facility] [id number] [facility] 2023-09-06 10:30:00 2023-09-06 11:01:05 Office Visit Provider, Guerrero Adams [facility] [address] [place] P[place]OT [facility] & CHILD [facility] 1.2.840.114 350.1.13.10 4.2.7.2.686 [id number] [facility] 2023-06-22 00:00:00 2023-06-22 08:13:41 Letter (Out) Analisa Suarez [facility] [address] PILOT [facility] CHILD [facility] 1.2.840.114 350.1.13.10 4.2.7.2.686 [id number] [facility] 2023-06-22 06:45:00 2023-06-22 08:09:35 Outpatient R JULY RICE [facility] [id number] [facility] 2023-06-22 06:45:00 2023-06-22 08:09:35 Office Visit Provider, LaurachAnalisa Mcgill [facility] [address] [facility] 1..840.114 350.1.13.10 4.2.7.2.686 [id number] 107 [id number] [facility] 2023-03-21 13:20:00 2023-03-21 13:20:00 Outpatient R [facility] [id number] [facility] 2022-10-26 17:46:44 2022-10-26 17:46:[address] [facility] [id number] Colton Persaud 2022-09-01 00:00:00 2022-09-01 00:00:00 Telephone Deja Strong 1..840.114 350.1.13.10 4.2.7.2.686 [id number] [facility] 2022-04-16 14:00:00 2022-04-16 14:00:00 Outpatient R TYRESE BACA [facility] [id number] [facility] 2022-03-31 15:30:00 2022-03-31 15:30:00 Outpatient R JARED COLLADO [facility] [id number] [facility] 2022-03-23 10:30:00 2022-03-23 10:30:00 Outpatient R JARED COLLADO [facility] [id number] [facility] 2022-03-22 09:30:00 2022-03-22 09:30:00 Outpatient R JARED COLLADO [facility] [id number] [facility] 2022-02-15 18:40:00 2022-02-15 19:00:00 Urgent Care Laura Lowe Unknown, Attending [facility] 1.840.114 350.1.13.10 4.2.7.2.686 [id number] [facility] 2022-02-15 18:40:00 2022-02-15 18:40:00 Outpatient R LAURA LOWE [facility] [id number] [facility] 2022-01-08 13:30:00 2022-01-08 15:04:40 Outpatient R DEE HUFFMAN [facility] [id number] [facility] 2022-01-08 13:30:00 2022-01-08 15:04:40 Office Visit Pgy3 Dee Huffman [facility] 1.840.114 350.1.13.10 4.2.7.2.686 [id number] [facility] 2022-01-08 00:00:00 2022-01-08 00:00:00 Orders Only Doctor Unassigned, [place] [facility] 1.2.840.114 350.1.13.10 4.2.7.2.686 [id number] [facility] 2022-01-07 00:00:00 2022-01-07 00:00:00 Case Management Djea Álvarez [facility] [address] PAT[address] PILOT [facility] & CHILD [facility] 1.2.840.114 350.1.13.10 4.2.7.2.686 [id number] [facility] 2022-01-07 00:00:00 2022-01-07 00:00:00 Telephone Deja Álvarez [facility] [address] PAT[address] PILOT [facility] & CHILD [facility] 1.2.840.114 350.1.13.10 4.2.7.2.686 [id number] [facility] 2022-01-05 00:00:00 2022-01-05 00:00:00 Refill Deja Álvarez [facility] [address] PAT[address] PILOT [facility] CHILD [facility] 1.2.840.114 350.1.13.10 4.2.7.2.686 [id number] [facility] 2021-12-21 00:00:00 2021-12-21 00:00:00 Case Management Deja Álvarez [facility] [address] PAT[address] PILOT [facility] & CHILD [facility] 1.2.840.114 350.1.13.10 4.2.7.2.686 [id number] [facility] 2021-12-18 14:15:00 2021-12-18 15:30:31 Outpatient R DEJA ÁLVAREZ [facility] [id number] [facility] 2021-12-18 14:15:00 2021-12-18 15:30:31 Office Visit Provider, Ang-Rmchp Deja Jane [facility] [address] PILOT [facility] MAT[facility] & CHILD [facility] 1.0.114 350.1.13.10 4.2.7.2.686 [id number] [facility] 2021-09-28 11:00:00 2021-09-28 11:00:00 Outpatient JARED DOUGLAS [facility] [id number] [facility] 2021-09-24 13:45:00 2021-09-24 13:45:00 Outpatient R KHANH FUENTES [facility] [id number] [facility] 2021-09-18 09:30:00 2021-09-18 09:30:00 Outpatient TYRESE TURNER [facility] [id number] [facility] 2021-09-01 15:30:00 2021-09-01 15:30:00 Outpatient JARED DOUGLAS [facility] [id number] [facility] 2021-08-28 00:00:00 2021-08-28 00:00:00 Patient Secure Msg Bertha Bacathia [facility] 1.84.114 350.1.13.10 4.2.7.2.686 [id number] [facility] 2021-08-24 00:00:00 2021-08-24 00:00:00 Abstract Jared Collado [facility] 1.84.114 350.1.13.10 4.2.7.2.686 [id number] [facility] 2021-08-21 00:00:00 2021-08-21 00:00:00 Telephone Analisa Suarez [facility] [address] PAT[address] PILOT [facility] MAT[facility]NAL & CHILD [facility] 1..114 350.1.13.10 4.2.7.2.686 [id number] [facility] 2021-08-19 16:00:00 2021-08-19 16:00:00 Outpatient R JARED COLLADO [facility] [id number] [facility] 2021-08-19 00:00:00 2021-08-19 00:00:00 Refill Tobias Jared [facility] 1.2.840.114 350.1.13.10 4.2.7.2.686 [id number] [facility] 2021-08-19 00:00:00 2021-08-19 00:00:00 Refill Dany Carias [facility] [address] PAT[address]OL PILOT [facility] & CHILD [facility] 1..840.114 350.1.13.10 4.2.7.2.686 [id number] [facility] 2021-08-19 00:00:00 2021-08-19 00:00:00 Refill Doctor Unassigned, [place] [facility] 1..840.114 350.1.13.10 4.2.7.2.686 [id number] [facility] 2021-08-17 00:00:00 2021-08-17 00:00:00 Patient Secure Msg Dany Carias [facility] [address] PILOT [facility] & CHILD [facility] 1..840.114 350.1.13.10 4.2.7.2.686 [id number] [facility] 2021-08-13 14:15:00 2021-08-13 16:02:04 Outpatient R DANY CARIAS [facility] [id number] [facility] 2021-08-13 14:15:00 2021-08-13 16:02:04 Office Visit Dany Carias [facility] [address] PILOT [facility] & CHILD [facility] 1..840.114 350.1.13.10 4.2.7.2.686 [id number] [facility] 2021-08-13 14:15:00 2021-08-13 14:15:00 Outpatient FELICITAS THOMPSONGREYMariah [facility] [id number] [facility] 2021-08-12 00:00:00 2021-08-12 00:00:00 Patient Secure Dany Anton [facility] [address] PAT[address] PILOT [facility] CHILD [facility] 1..840.114 350.1.13.10 4.2.7.2.686 [id number] [facility] 2021-08-07 16:00:00 2021-08-07 16:00:00 Outpatient Jocelyn ELDAJARED Lemus [facility] [id number] [facility] 2021-08-04 00:00:00 2021-08-04 00:00:00 Telephone CariasDany [facility] [address] PAT[address]OL PILOT [facility] CHILD [facility] 1..840.114 350.1.13.10 4.2.7.2.686 [id number] [facility] 2021-08-04 00:00:00 2021-08-04 00:00:00 Patient Secure Jared Salmon [facility] 1..840.114 350.1.13.10 4.2.7.2.686 [id number] [facility] 2021-08-04 00:00:00 2021-08-04 00:00:00 Patient Secure Dany Anton [facility] [address] PAT[address] PILOT [facility] 1.2.840.114 350.1.13.10 4.2.7.2.686 [id number] [facility] 2021-08-03 00:00:00 2021-08-03 00:00:00 Telephone Dany Carias [facility] [address] PILOT [facility] & CHILD [facility] 1.2.840.114 350.1.13.10 4.2.7.2.686 [id number] [facility] 2021-08-03 00:00:00 2021-08-03 00:00:00 Patient Secure Msg Dany Carias [facility] [address] PILOT [facility] CHILD [facility] 1.2.840.114 350.1.13.10 4.2.7.2.686 [id number] [facility] 2021-08-03 00:00:00 2021-08-03 00:00:00 Patient Secure Msg Dany Carias [facility] [address] P[address] 1.2.840.114 350.1.13.10 4.2.7.2.686 [id number] [facility] 2021-07-31 11:30:00 2021-07-31 11:30:00 Outpatient JARED DOUGLAS [facility] [id number] [facility] 2021-07-30 15:45:00 2021-07-30 16:31:25 Outpatient R LILIANA CARIASMARYBETH [facility] [id number] [facility] 2021-07-30 15:45:00 2021-07-30 16:31:25 Office Visit Dany Carias [facility] [address] PAT[address] PILOT [facility] & CHILD [facility] 1.2.840.114 350.1.13.10 4.2.7.2.686 [id number] [facility] 2021-07-29 13:30:00 2021-07-29 13:30:00 Outpatient JARED DOUGLAS [facility] [id number] [facility] 2021-07-29 00:00:00 2021-07-29 00:00:00 Patient Secure Msg Doctor Unassigned, [place] [facility] 1..840.114 350.1.13.10 4.2.7.2.686 [id number] [facility] 2021-07-29 00:00:00 2021-07-29 00:00:00 Patient Secure Jared Salmon [facility] 1..840.114 350.1.13.10 4.2.7.2.686 [id number] [facility] 2021-07-28 16:30:00 2021-07-28 17:03:47 Outpatient RAMÓN PAN [facility] [id number] [facility] 2021-07-28 16:30:00 2021-07-28 17:03:47 Office Visit Yan [facility] 1.840.114 350.1.13.10 4.2.7.2.686 [id number] [facility] 2021-07-28 16:45:00 2021-07-28 17:00:00 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 Naomi, Imelda Lab Main Yan Ramón [facility] NAL BUILDING 1..840.114 350.1.13.10 4.2.7.2.686 [id number] [facility] 2021-07-28 16:45:00 2021-07-28 16:45:00 Outpatient RAMÓN PAN [facility] [id number] [facility] 2021-07-28 00:00:00 2021-07-28 00:00:00 Telephone Shanita Simon [facility] [address] PATROL PILOT [facility] 1.840.114 350.1.13.10 4.2.7.2.686 [id number] [facility] 2021-07-28 00:00:00 2021-07-28 00:00:00 Orders Only Doctor Unassigned, [place] [facility] 1.2.840.114 350.1.13.10 4.2.7.2.686 [id number] [facility] 2021-07-25 00:00:00 2021-07-25 00:00:00 Nurse Triage Janae Rubio [facility] 1.2840.114 350.1.13.10 4.2.7.2.686 [id number] [facility] 2021-07-22 14:30:00 2021-07-22 14:30:00 Outpatient R JARED COLLADO [facility] [id number] [facility] 2021-07-21 00:00:00 2021-07-21 00:00:00 Telephone Tobias Jared [facility] 1.2840.114 350.1.13.10 4.2.7.2.686 [id number] [facility] 2021-07-21 00:00:00 2021-07-21 00:00:00 Patient Secure Msg Tobias [facility] 1.2.840.114 350.1.13.10 4.2.7.2.686 [id number] [facility] 2021-07-20 16:13:00 2021-07-20 17:36:00 Emergency X Manuel [facility] ERT [id number] [facility] 2021-07-20 16:13:00 2021-07-20 17:36:00 Emergency Manuel Stanford [facility] 1.2.840.114 350.1.13.10 4.2.7.2.686 [id number] [facility] 2021-07-20 15:45:00 2021-07-20 16:00:00 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 Lab, Drake Jose Shanon Beckham Brittany [facility] 1.2.840.114 350.1.13.10 4.2.7.2.686 [id number] [facility] 2021-07-20 15:20:00 2021-07-20 15:44:36 Outpatient R OUMAR DUDLEY [facility] [id number] [facility] 2021-07-20 15:20:00 2021-07-20 15:44:36 Urgent Care Oumar Dudley Amanda [facility] 1.2.840.114 350.1.13.10 4.2.7.2.686 [id number] [facility] 2021-07-17 00:00:00 2021-07-17 00:00:00 Patient Secure Msg July Pitt [facility] 1.2.840.114 350.1.13.10 4.2.7.2.686 [id number] [facility] 2021-07-17 00:00:00 2021-07-17 00:00:00 Patient Secure g EldaJared lemus [facility] 1.2.840.114 350.1.13.10 4.2.7.2.686 [id number] [facility] 2021-07-16 14:15:00 2021-07-16 14:41:18 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 Lab, Drake SchroederJared lemus [facility] 1.2.840.114 350.1.13.10 4.2.7.2.686 [id number] [facility] 2021-07-16 14:15:00 2021-07-16 14:30:00 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 [facility], [facility] 1.2.840.114 350.1.13.10 4.2.7.2.686 [id number] [facility] 2021-07-16 14:15:00 2021-07-16 14:15:00 Outpatient R ELDAJARED Lemus [facility] [id number] [facility] 2021-07-15 15:30:00 2021-07-15 15:45:00 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 1.2.840.114 350.1.13.10 4.2.7.2.686 [id number] [facility] 2021-07-15 14:00:00 2021-07-15 15:22:50 Outpatient R ELDAJARED Lemus [facility] [id number] [facility] 2021-07-15 14:00:00 2021-07-15 15:22:50 Office Visit Jared Collado [facility] [place] 1.2.840.114 350.1.13.10 4.2.7.2.686 [id number] [facility] 2021-07-15 14:00:00 2021-07-15 15:22:50 Outpatient R TOBIAS JARED [facility] [id number] [facility] 2021-07-15 14:00:00 2021-07-15 15:22:50 Outpatient R TOBIAS JARED [facility] [id number] [facility] 2021-07-13 08:30:00 2021-07-13 08:30:00 Outpatient DANY THOMPSON [facility] [id number] [facility] 2021-07-13 08:30:00 2021-07-13 08:30:00 Outpatient DANY THOMPSON [facility] [id number] [facility] 2021-07-11 14:20:00 2021-07-11 15:10:05 Outpatient R MARIA ISABEL MARSHALL [facility] [id number] [facility] 2021-07-11 14:20:00 2021-07-11 15:10:05 [facility] 1.114 350.1.13.10 4.2.7.2.686 [id number] [facility] 2021-07-06 00:00:00 2021-07-06 00:00:00 Patient Secure Msg Doctor Unassigned, [place] [facility] 1..114 350.1.13.10 4.2.7.2.686 [id number] [facility] 2021-06-30 14:30:00 2021-06-30 15:41:19 Outpatient R ANALISA SUAREZ [facility] [id number] [facility] 2021-06-30 14:30:00 2021-06-30 15:41:19 Office Visit Analisa Suarez [facility] [address] [facility]ILD [facility] 1.84.114 350.1.13.10 4.2.7.2.686 [id number] [facility] 2021-06-30 00:00:00 2021-06-30 00:00:00 Letter (Out) Analisa Suarez [facility] [address] [facility] [facility] & CHILD [facility] 1..114 350.1.13.10 4.2.7.2.686 [id number] [facility] 2021-06-26 15:45:00 2021-06-26 16:00:00 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 Lab, Tyrese Mckinnon [facility] 1.2.840.114 350.1.13.10 4.2.7.2.686 [id number] [facility] 2021-06-26 14:30:00 2021-06-26 15:40:40 Outpatient R TYRESE BACA [facility] [id number] [facility] 2021-06-26 14:30:00 2021-06-26 15:40:40 [facility] 1.840.114 350.1.13.10 4.2.7.2.686 [id number] [facility] 2021-06-26 00:00:00 2021-06-26 00:00:00 Telephone Dany Carias [facility] [address] [place] 1.840.114 350.1.13.10 4.2.7.2.686 [id number] [facility] 2021-06-25 14:30:00 2021-06-25 14:30:00 Outpatient R DANY CARIAS [facility] [id number] [facility] 2021-06-25 14:30:00 2021-06-25 14:30:00 Outpatient R DANY CARIAS [facility] [id number] [facility] 2021-06-22 15:30:00 2021-06-22 15:30:00 Outpatient R JARED COLLADO [facility] [id number] [facility] 2021-06-22 15:30:00 2021-06-22 15:30:00 Outpatient R JARED COLLADO [facility] [id number] [facility] 2021-06-18 00:00:00 2021-06-18 00:00:00 Patient Secure Msg Jared Collado [facility] 1..840.114 350.1.13.10 4.2.7.2.686 [id number] [facility] 2021-06-16 15:30:00 2021-06-16 15:45:00 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 Lab, Drake Jose Phuong [facility] 1.284.114 350.1.13.10 4.2.7.2.686 [id number] [facility] 2021-06-16 14:30:00 2021-06-16 15:22:44 Outpatient R BERTHA [facility] [id number] [facility] 2021-06-16 14:30:00 2021-06-16 15:22:44 Office Visit Phuong [facility] 1.84114 350.1.13.10 4.2.7.2.686 [id number] [facility] 2021-06-12 13:45:00 2021-06-12 14:00:00 Office Visit Analisa Suarez [facility] [address] PAT[address] PILOT [facility] CHILD [facility] 1.84.114 350.1.13.10 4.2.7.2.686 [id number] [facility] 2021-06-12 13:45:00 2021-06-12 13:45:00 Outpatient R ANALISA SUAREZ [facility] [id number] [facility] 2021-06-12 13:45:00 2021-06-12 13:45:00 Outpatient R ANALISA SUAREZ [facility] [id number] [facility] 2021-06-12 00:00:00 2021-06-12 00:00:00 Patient Secure Msg Analisa Suarez [facility] [address] [place] PILOT [facility] 1.840.114 350.1.13.10 4.2.7.2.686 [id number] [facility] 2021-06-11 00:00:00 2021-06-11 00:00:00 Telephone Analisa Suarez [facility] [address] [place] PILOT [facility] CH[facility] 1.84.114 350.1.13.10 4.2.7.2.686 [id number] [facility] 2021-06-10 13:30:00 2021-06-10 14:41:56 Office Visit Analisa Suarez [facility] [address] PILOT [facility] 1.840.114 350.1.13.10 4.2.7.2.686 [id number] [facility] 2021-06-10 13:30:00 2021-06-10 14:41:56 Outpatient R ANALISA SUAREZ [facility] [id number] [facility] 2021-06-10 13:30:00 2021-06-10 13:30:00 Outpatient R ANALISA SUAREZ [facility] [id number] [facility] 2021-06-08 15:30:00 2021-06-08 15:30:00 Outpatient R ABHIKONG TYRESE [facility] [id number] [facility] 2021-06-08 15:30:00 2021-06-08 15:30:00 Outpatient R PHUONG TYRESE [facility] [id number] [facility] 2021-06-02 14:30:00 2021-06-02 15:12:53 Outpatient R PHUONG TYRESE [facility] [id number] [facility] 2021-06-02 14:30:00 2021-06-02 15:12:53 Office Visit Tyrese Baca [facility] 1..840.114 350.1.13.10 4.2.7.2.686 [id number] [facility] 2021-06-02 14:30:00 2021-06-02 15:12:53 Outpatient R TYRESE BACA [facility] [id number] [facility] 2021-06-02 14:30:00 2021-06-02 14:30:00 Outpatient R TYRESE BACA [facility] [id number] [facility] 2021-05-29 14:00:00 2021-05-29 14:30:00 Office Visit EldaJared lemus [facility] 1..840.114 350.1.13.10 4.2.7.2.686 [id number] [facility] 2021-05-29 14:00:00 2021-05-29 14:00:00 Outpatient R TOBIAS JARED [facility] [id number] [facility] 2021-05-29 09:30:00 2021-05-29 09:30:00 Outpatient R TYRESE BACA [facility] [id number] [facility] 2021-05-28 00:00:00 2021-05-28 00:00:00 Telephone TobiasJared [facility] 1.2.840.114 350.1.13.10 4.2.7.2.686 [id number] [facility] 2021-05-27 09:15:00 2021-05-27 09:30:00 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 Lab, Ang - Db Tobias Critical access hospital EM[facility] 1.2.840.114 350.1.13.10 4.2.7.2.686 [id number] [facility] 2021-05-27 09:15:00 2021-05-27 09:15:00 Outpatient R TOBIAS JARED [facility] [id number] [facility] 2021-05-27 08:30:00 2021-05-27 09:00:00 Office Visit Jared Collado [facility] 1.2840.114 350.1.13.10 4.2.7.2.686 [id number] [facility] 2021-05-27 08:30:00 2021-05-27 08:30:00 Outpatient R JARED COLLADO [facility] [id number] [facility] 2021-05-27 00:00:00 2021-05-27 00:00:00 Letter (Out) Jared Collado [facility] 1.2.840.114 350.1.13.10 4.2.7.2.686 [id number] [facility] 2021-05-27 00:00:00 2021-05-27 00:00:00 Telephone Jared Collado [facility] 1.2.840.114 350.1.13.10 4.2.7.2.686 [id number] [facility] 2021-05-27 00:00:00 2021-05-27 00:00:00 Telephone Jared Collado [facility] 1.2840.114 350.1.13.10 4.2.7.2.686 [id number] [facility] 2021-05-23 01:00:00 2021-05-23 06:13:00 Emergency X GABRIELLE MARTÍNEZ [facility] ERT [id number] [facility] 2021-05-23 01:00:00 2021-05-23 06:13:00 Emergency Gabrielle Martínez [facility] 1.2840.114 350.1.13.10 4.2.7.2.686 [id number] [facility] 2021-05-23 01:00:00 2021-05-23 06:13:00 Emergency X GABRIELLE MARTÍNEZ [facility] ERT [id number] [facility] 2021-05-22 16:00:00 2021-05-22 16:00:00 Outpatient R PAMELA PRESLEY [facility] [id number] [facility] 2021-05-22 14:20:00 2021-05-22 15:02:37 Outpatient R PAMELA PRESLEY [facility] [id number] [facility] 2021-05-22 14:20:00 2021-05-22 15:02:37 Urgent Care Quynh Presleyberly [facility] 1..840.114 350.1.13.10 4.2.7.2.686 [id number] [facility] 2021-05-15 00:00:00 2021-05-15 00:00:00 Orders Only Doctor Unassigned, [place] [facility] 1..840.114 350.1.13.10 4.2.7.2.686 [id number] [facility] 2021-05-04 15:30:00 2021-05-04 15:30:00 Outpatient GERTRUDE CAMPOVERDE [facility] [id number] [facility] 2021-05-04 15:30:00 2021-05-04 15:30:00 Outpatient GERTRUDE CAMPOVERDE [facility] [id number] [facility] 2021-05-01 13:00:00 2021-05-01 13:00:00 Outpatient MINOO BURRELL [facility] [id number] [facility] 2021-05-01 13:00:00 2021-05-01 13:00:00 Outpatient MINOO BURRELL [facility] [id number] [facility] 2021-04-30 16:30:00 2021-04-30 17:15:50 Outpatient R TYRESE BACA [facility] [id number] [facility] 2021-04-30 16:30:00 2021-04-30 17:15:50 Office Visit Tyrese Baca [facility] 1.114 350.1.13.10 4.2.7.2.686 [id number] [facility] 2021-04-29 18:59:00 2021-04-29 20:20:00 Emergency X JAG MAGANA [facility] ERT [id number] [facility] 2021-04-29 18:59:00 2021-04-29 20:20:00 Emergency Jag Magana [facility] 1.114 350.1.13.10 4.2.7.2.686 [id number] [facility] 2021-04-29 18:59:00 2021-04-29 20:20:00 Emergency X JAG MAGANA [facility] ERT [id number] [facility] 2021-04-03 13:30:00 2021-04-03 13:30:00 Outpatient R MINOO FLORES [facility] [id number] [facility] 2021-03-27 02:58:00 2021-03-27 04:43:00 Emergency X JOB KASPER [facility] ERT [id number] [facility] 2021-03-27 02:58:00 2021-03-27 04:43:00 Emergency Job Kasper [facility] 1.114 350.1.13.10 4.2.7.2.686 [id number] [facility] 2021-03-27 00:00:00 2021-03-27 00:00:00 Orders Only Doctor Unassigned, [place] [facility] 1.114 350.1.13.10 4.2.7.2.686 [id number] [facility] 2020-11-25 13:14:00 2020-11-27 12:30:00 Inpatient JIMENA PARISH [facility] KYLE [id number] [facility] 2020-11-25 20:45:00 2020-11-26 00:47:00 Anesthesia Event Carine Smith [facility] 1..114 350.1.13.10 4.2.7.2.686 [id number] [facility] 2020-11-24 00:00:00 2020-11-24 00:00:00 Dany Beth [facility] [address] PAT[place] PILOT [facility] CHILD [facility] 1.84.114 350.1.13.10 4.2.7.2.686 [id number] [facility] 2020-11-20 10:15:00 2020-11-20 10:15:00 Outpatient NORA MELENDEZ [facility] [id number] [facility] 2020-11-18 00:00:00 2020-11-18 00:00:00 Patient Secure Msg Doctor Unassigned, [place] [facility] [address] PAT[address] PILOT [facility] MATERNAL & CHILD [facility] 1.84.114 350.1.13.10 4.2.7.2.686 [id number] [facility] 2020-11-17 00:00:00 2020-11-17 00:00:00 Telephone Nora Sanchez [facility] [address] PAT[place] PILOT [facility] 1..114 350.1.13.10 4.2.7.2.686 [id number] [facility] 2020-11-10 10:30:00 2020-11-10 10:30:00 Outpatient R NORA SANCHEZ [facility] [id number] [facility] 2020-10-30 12:45:00 2020-10-30 12:45:00 Outpatient NORA MELENDEZ [facility] [id number] [facility] 2020-10-16 14:23:36 2020-10-16 15:09:33 Routine Visit Nora Sanchez [facility] [address] PAT[place] PILOT [facility] & [facility] 1.2.840.114 350.1.13.10 4.2.7.2.686 [id number] [facility] 2020-10-16 13:00:00 2020-10-16 13:00:00 Outpatient NORA MELENDEZ [facility] [id number] [facility] 2020-10-16 00:00:00 2020-10-16 00:00:00 Orders Only Doctor Unassigned, [place] [facility] 1.2.840.114 350.1.13.10 4.2.7.2.686 [id number] [facility] 2020-10-15 09:45:00 2020-10-15 09:45:00 Outpatient DANY THOMPSON [facility] [id number] [facility] 2020-10-07 08:00:00 2020-10-07 08:00:00 Outpatient NORA MELENDEZ [facility] [id number] [facility] 2020-09-30 18:00:00 2020-09-30 18:00:00 Outpatient DANY THOMPSON [facility] [id number] [facility] 2020-09-30 11:45:00 2020-09-30 11:45:00 Outpatient DANY THOMPSON [facility] [id number] [facility] 2020-09-29 16:45:00 2020-09-29 16:45:00 Outpatient DANY THOMPSON [facility] [id number] [facility] 2020-09-18 00:00:00 2020-09-18 00:00:00 Patient Secure MsNiall Escalantea [facility] [address] PAT[address]OL PILOT [facility] CHILD [facility] 1.2.840.114 350.1.13.10 4.2.7.2.686 [id number] [facility] 2020-09-15 13:58:57 2020-09-15 15:37:45 Routine Visit Dany Carias [facility] [address] PATROL PILOT [facility] 1.2.840.114 350.1.13.10 4.2.7.2.686 [id number] [facility] 2020-09-15 13:15:00 2020-09-15 13:15:00 Outpatient R FELICITAS CARIASHECTOR [facility] [id number] [facility] 2020-09-12 00:00:00 2020-09-12 00:00:00 Nurse Triage Leidy Duran [facility] 1.2.840.114 350.1.13.10 4.2.7.2.686 [id number] [facility] 2020-08-29 00:00:00 2020-08-29 00:00:00 Telephone Nurse, [facility] 1.2.840.114 350.1.13.10 4.2.7.2.686 [id number] [facility] 2020-08-28 15:21:38 2020-08-28 23:59:00 Hospital Encounter Vipul [facility] 1.2.840.114 350.1.13.10 4.2.7.2.686 [id number] 2020-08-28 15:21:38 2020-08-28 23:59:00 Hospital Encounter [place] [facility] 1.2.840.114 350.1.13.10 4.2.7.2.686 [id number] [facility] 2020-08-28 14:13:24 2020-08-28 15:23:42 Urgent Care [place] [facility] 1.20.114 350.1.13.10 4.2.7.2.686 [id number] 2020-08-28 14:13:24 2020-08-28 15:23:42 Urgent Care [place] [facility] 1..114 350.1.13.10 4.2.7.2.686 [id number] [facility] 2020-08-28 14:20:00 2020-08-28 14:20:00 Outpatient Jocelyn RICHARDS TOBY [facility] [id number] [facility] 2020-08-27 10:01:23 2020-08-27 11:16:37 Routine Visit Dany Carias [facility] [address] PATROL PILOT [facility] MATERNAL & CHILD [facility] 1.20.114 350.1.13.10 4.2.7.2.686 [id number] 2020-08-27 10:01:23 2020-08-27 11:16:37 Routine Visit Dany Carias [facility] [address] PATROL PILOT [facility] CHILD [facility] 1.2840.114 350.1.13.10 4.2.7.2.686 [id number] [facility] 2020-08-27 09:00:00 2020-08-27 09:00:00 Outpatient R DANY CARIAS [facility] [id number] [facility] 2020-08-27 00:00:00 2020-08-27 00:00:00 Orders Only Doctor Unassigned, [place] [facility] 1.2840.114 350.1.13.10 4.2.7.2.686 [id number] 2020-08-27 00:00:00 2020-08-27 00:00:00 Orders Only Doctor Unassigned, [place] [facility] 1.2840.114 350.1.13.10 4.2.7.2.686 [id number] [facility] 2020-08-19 14:50:51 2020-08-19 15:35:51 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 1, [facility] Us Room [facility] 1.2840.114 350.1.13.10 4.2.7.2.686 [id number] 2020-08-19 14:50:51 2020-08-19 15:35:51 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 1, [facility] Room Arcelia Bryn cailinGuerrero [facility] 1.2840.114 350.1.13.10 4.2.7.2.686 [id number] [facility] 2020-08-19 14:15:00 2020-08-19 14:15:00 Outpatient P [facility] [id number] [facility] 2020-08-11 08:45:00 2020-08-11 08:45:00 Outpatient P [facility] [id number] [facility] 2020-08-06 00:00:00 2020-08-06 00:00:00 Nurse Triage [facility] 1.2840.114 350.1.13.10 4.2.7.2.686 [id number] 2020-08-06 00:00:00 2020-08-06 00:00:00 Nurse Triage [facility] 1.2840.114 350.1.13.10 4.2.7.2.686 [id number] [facility] 2020-08-06 00:00:00 2020-08-06 00:00:00 Telephone Dany Carias [facility] [address] PATROL PILOT [facility] MATERNAL & [facility] 1.2.840.114 350.1.13.10 4.2.7.2.686 [id number] [facility] 2020-07-30 10:22:14 2020-07-30 10:37:14 Routine Visit Dany Carias [facility] [address] PATROL PILOT [facility] CHILD [facility] 1.840.114 350.1.13.10 4.2.7.2.686 [id number] [facility] 2020-07-30 10:15:00 2020-07-30 10:15:00 Outpatient R LILIANA CARIASHECTOR [facility] [id number] [facility] 2020-07-21 13:45:00 2020-07-21 13:45:00 Outpatient LILIANA THOMPSONGREYMariah [facility] [id number] [facility] 2020-07-17 09:00:00 2020-07-17 09:00:00 Outpatient R LILIANA CARIASGREYMariah [facility] [id number] [facility] 2020-07-14 09:45:41 2020-07-14 11:00:41 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 Ultrasound, Jordan Valencia [facility] [address] PATROL PILOT [facility] MATERNAL & CHILD [facility] 1.840.114 350.1.13.10 4.2.7.2.686 [id number] [facility] 2020-07-14 10:00:00 2020-07-14 10:00:00 Outpatient P [facility] [id number] [facility] 2020-07-14 00:00:00 2020-07-14 00:00:00 Case Management Nora Sanchez [facility] [address] PATROL PILOT [facility] 1.840.114 350.1.13.10 4.2.7.2.686 [id number] [facility] 2020-07-01 13:52:00 2020-07-01 14:58:28 Routine Visit Liliana Cariasmarybeth Banks [facility] [address] PAT[address]OL PILOT [facility] 1.2.840.114 350.1.13.10 4.2.7.2.686 [id number] [facility] 2020-07-01 13:45:00 2020-07-01 13:45:00 Outpatient R LILIANA CARIASMARYBETH [facility] [id number] [facility] 2020-07-01 00:00:00 2020-07-01 00:00:00 Telephone Liliana Cariasmarybeth Banks [facility] [address] PATROL PILOT [facility] 1.2.840.114 350.1.13.10 4.2.7.2.686 [id number] [facility] 2020-06-17 08:48:55 2020-06-17 09:25:15 Routine Visit Liliana Cariasmarybeth [facility] [address] PATROL PILOT [facility] CHILD [facility] 1.2.840.114 350.1.13.10 4.2.7.2.686 [id number] [facility] 2020-06-17 08:45:00 2020-06-17 08:45:00 Outpatient R LILIANA CARIASMARYBETH [facility] [id number] [facility] 2020-06-10 15:45:00 2020-06-10 15:45:00 Outpatient R LILIANA CARIASMARYBETH [facility] [id number] [facility] 2020-06-03 20:19:00 2020-06-03 22:12:00 Emergency Julio Da Silva [facility] 1.2.840.114 350.1.13.10 4.2.7.2.686 [id number] [facility] 2020-05-13 09:59:20 2020-05-13 10:14:20 Routine Visit CariasDany [facility] [address] PATROL PILOT [facility] CHILD [facility] 1.840.114 350.1.13.10 4.2.7.2.686 [id number] [facility] 2020-05-13 10:00:00 2020-05-13 10:00:00 Outpatient R LILIANA CARIASMARYBETH [facility] [id number] [facility] 2020-05-06 11:00:00 2020-05-06 11:00:00 [facility] [id number] [facility] 2020-04-29 10:45:00 2020-04-29 10:45:00 [facility] [id number] [facility] 2020-04-29 00:00:00 2020-04-29 00:00:00 Telephone Liliana Cariasmarybeth [facility] [address] PATROL PILOT [facility] CHILD [facility] 1.0.114 350.1.13.10 4.2.7.2.686 [id number] [facility] 2020-04-22 00:00:00 2020-04-22 00:00:00 Nurse Triage Lynn Garcia [facility] 1.840.114 350.1.13.10 4.2.7.2.686 [id number] [facility] 2020-04-09 00:00:00 2020-04-09 00:00:00 Case Management Liliana Cariasmarybeth [facility] [address] PATROL PILOT [facility] 1.840.114 350.1.13.10 4.2.7.2.686 [id number] [facility] 2020-04-08 11:32:55 2020-04-08 12:14:18 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 Ultrasound, Tracey Trammell [facility] [address] PATROL PILOT [facility] CHILD [facility] 1.840.114 350.1.13.10 4.2.7.2.686 [id number] [facility] 2020-04-08 11:30:00 2020-04-08 11:30:00 Outpatient P [facility] [id number] [facility] 2020-04-08 00:00:00 2020-04-08 00:00:00 Abstract CariasDany [facility] [address] PATROL PILOT [facility] 1.2.840.114 350.1.13.10 4.2.7.2.686 [id number] [facility] 2020-04-02 23:15:00 2020-04-03 01:12:00 Emergency Yoshi Esparza [facility] ([facility]) 1.2.840.114 350.1.13.10 4.2.7.2.686 [id number] [facility] 2020-04-02 00:00:00 2020-04-02 00:00:00 Telephone Zafar Lilianamarybeth [facility] [address] [facility] CHILD [facility] 1.2.840.114 350.1.13.10 4.2.7.2.686 [id number] [facility] 2020-04-02 00:00:00 2020-04-02 00:00:00 Telephone CariasDany [facility] [address] [facility] 1.2.840.114 350.1.13.10 4.2.7.2.686 [id number] [facility] 2020-04-01 09:25:04 2020-04-01 11:05:29 Initial Visit Dany Carias [facility] [address] [facility] 1.2.840.114 350.1.13.10 4.2.7.2.686 [id number] [facility] 2020-04-01 08:30:00 2020-04-01 08:30:00 Outpatient R [facility] [id number] [facility] 2020-04-01 00:00:00 2020-04-01 00:00:00 Orders Only Doctor Unassigned, [place] [facility] 1.2.840.114 350.1.13.10 4.2.7.2.686 [id number] [facility] 2019-12-18 09:30:00 2019-12-18 09:30:00 Outpatient R [facility] [id number] [facility] 2019-10-01 00:00:00 2019-10-01 00:00:00 Patient Secure Msg Doctor Unassigned, [place] [facility] 1.2.840.114 350.1.13.10 4.2.7.2.686 [id number] [facility] 2019-09-26 00:00:00 2019-09-26 00:00:00 Patient Secure Msg Minoo Flores [facility] 1.2.840.114 350.1.13.10 4.2.7.2.686 [id number] [facility] 2019-09-21 11:10:44 2019-09-21 23:59:00 Hospital Encounter Minoo Flores [facility] 1.2.840.114 350.1.13.10 4.2.7.2.686 [id number] [facility] 2019-09-21 11:00:00 2019-09-21 11:09:00 Hospital Encounter Minoo Flores [facility] 1.2.840.114 350.1.13.10 4.2.7.2.686 [id number] [facility] 2019-09-21 09:56:26 2019-09-21 10:59:00 Hospital Encounter [employer] [facility] 1.2.840.114 350.1.13.10 4.2.7.2.686 [id number] [facility] 2019-09-21 00:00:00 2019-09-21 00:00:00 Outpatient R MINOO FLORES [facility] [id number] [facility] 2019-09-21 00:00:00 2019-09-21 00:00:00 Patient Secure Msg Minoo Flores [facility] 1.2.840.114 350.1.13.10 4.2.7.2.686 [id number] [facility] 2019-09-21 00:00:00 2019-09-21 00:00:00 Case Management Minoo Flores [facility] 1.2.840.114 350.1.13.10 4.2.7.2.686 [id number] [facility] 2019-09-21 00:00:00 2019-09-21 00:00:00 Patient Secure Minoo Clarke [facility] Building 1.2.840.114 350.1.13.10 4.2.7.2.686 [id number] [facility] 2019-09-20 10:01:43 2019-09-20 10:16:43 Laboratory Only Only, Adc Test Gunner Beaulieun [facility] 1.2.840.114 350.1.13.10 4.2.7.2.686 [id number] [facility] 2019-09-20 09:55:41 2019-09-20 10:10:41 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 Pob, Adc Lab Main Minoo Flores [facility] Building 1.2.840.114 350.1.13.10 4.2.7.2.686 [id number] [facility] 2019-09-20 00:00:00 2019-09-20 00:00:00 Outpatient R JOSE FLORESJUAN CKIESHA [facility] [id number] [facility] 2019-09-20 00:00:00 2019-09-20 00:00:00 Orders Only Doctor Unassigned, [place] [facility] 1.84.114 350.1.13.10 4.2.7.2.686 [id number] [facility] 2019-09-19 13:45:12 2019-09-19 15:57:17 Telemedici ne Visit Jose Floreschana Mariah [facility] 1.84.114 350.1.13.10 4.2.7.2.686 [id number] [facility] 2019-09-19 09:45:00 2019-09-19 09:45:00 Outpatient R JOSE FLORESJUAN CKIESHA [facility] [id number] [facility] 2019-09-19 00:00:00 2019-09-19 00:00:00 Telephone Jose Floresjuan ckiesha [facility] Office Building One 1.840.114 350.1.13.10 4.2.7.2.686 [id number] [facility] 2019-09-14 12:46:19 2019-09-14 13:54:37 [facility] Care Pob1[facility] 1.840.114 350.1.13.10 4.2.7.2.686 [id number] [facility] 2019-09-14 13:00:00 2019-09-14 13:00:00 Outpatient R [facility] [id number] [facility] 2019-08-28 11:00:00 2019-08-28 11:00:00 Outpatient R MELODY GAO [facility] [id number] [facility] 2019-08-22 08:59:00 2019-08-24 07:24:30 Inpatient HCACL MALACHI [id number] [facility] 2019-08-23 15:07:25 2019-08-23 16:34:23 Urgent Care Provider, [facility] Tyrese [facility] Office Building One 1.114 350.1.13.10 4.2.7.2.686 [id number] [facility] 2019-08-23 15:40:00 2019-08-23 15:40:00 Outpatient R [facility] [id number] [facility] 2019-08-22 14:16:15 2019-08-22 16:10:00 Emergency Kvng Chandra [facility] ([facility] 1.114 350.1.13.10 4.2.7.2.686 [id number] [facility] 2019-08-22 13:26:07 2019-08-22 13:41:07 Nurse Visit Nurse, [facility] Unknown, Attending [facility] 1. 350.1.13.10 4.2.7.2.686 [id number] [facility] 2019-08-22 13:30:00 2019-08-22 13:30:00 Outpatient R UNKNOWN, ATTENDING [facility] [id number] [facility] 2019-08-22 00:00:00 2019-08-22 00:00:00 Telephone Simba Rivera [facility] 1. 350.1.13.10 4.2.7.2.686 [id number] [facility] 2019-08-21 00:00:00 2019-08-21 00:00:00 Patient Secure Msg Doctor Unassigned, [place] [facility] 1.114 350.1.13.10 4.2.7.2.686 [id number] [facility] 2019-08-19 21:26:07 2019-08-19 21:27:00 Emergency Simba Rivera [facility] 1.2.840.114 350.1.13.10 4.2.7.2.686 [id number] [facility] 2019-08-19 00:00:00 2019-08-19 00:00:00 Orders Only Doctor Unassigned, [place] [facility] 1.2.840.114 350.1.13.10 4.2.7.2.686 [id number] [facility] Results Test Description Test Time Test Comments Results Resul t Comments Source POCUS DVT 5 23:26:03 Study Date and Time: 2024-09-11 18:10Study Author: Candida Sanchez DVT - Lower Extremity Venous:Focused compression ultrasonography of the lower extremity was performed.: ? ?Laterality: LeftIndication(s) for exam: ? ?Select all that apply:: LE Pain, LE swelling ? ?Other indications: N/AViews - R LE: ? ?Right Saphenofemoral Junction: N/A ? ?Right Common Femoral Vein: N/A ? ?Right Femoral Vein: N/A ? ?Right Deep Femoral: N/A ? ?Right Popliteal Vein: N/A ? ?Right Popliteal Trifurcation: N/A ? ?Right CFV Spectral Doppler Performed: N/A ? ?Other Right LE views: N/AViews - Left LE: ? ?Left Saphenofemoral Junction: Adequate ? ?Left Common Femoral Vein: N/A ? ?Left Femoral Vein: Adequate ? ?Left Deep Femoral: N/A ? ?Left Popliteal Vein: Adequate ? ?Left Popliteal Trifurcation: Adequate ? ?Left CFV Spectral Doppler Performed: N/A ? ?Other left LE views: N/AFindings - Right LE: ? ?Right Saphenofemoral Junction: N/A ? ?Right Common Femoral Vein: N/A ? ?Right Femoral Vein: N/A ? ?Right Deep Femoral: N/A ? ?Right Popliteal Vein: N/A ? ?Right Popliteal Trifurcation: N/A ? ?Right CFV Spectral Doppler: N/A ? ?Other right LE findings: N/AFindings - Left LE: ? ?Left Saphenofemoral Junction: Compressible ? ?Left Common Femoral Vein: Compressible ? ?Left Femoral Vein: Compressible ? ?Left Deep Femoral: N/A ? ?Left Popliteal Vein: Compressible ? ?Left Popliteal Trifurcation: Compressible ? ?Left CFV Spectral Doppler: N/A ? ?Other left LE findings: N/AInterpretation: ? ?Select all that apply: No sonographic evidence of deep vein thrombosis ? ?If present, location(s) of DVT: Images are incorrectly labeled as right and are actualy of the left leg. ? ?If negative:: N/AConfirmatory Study: ? ?What confirmatory study was performed during ED patient evaluation?: No additional imaging ordered ? ?Confirmatory Study/Comments: N/A Signed by Candida Sanchez on 2024-09-11 18:26 [facility] ([facility]16[facility]2024-06-27 19:23:20* Test Item Value Reference Range Interpretation Comme nts NA (test code = 6433106640) 138 mmol/L 135-145 K (test code = 9032939696) 4.3 mmol/L 3.5-5.0 CL (test code = 9542802346) 106 mmol/L 98-108 CO2 TOTAL (test code = 0230064857) 23 mmol/L 23-31 AGAP (test code = 7961873910) 9 2-16 BUN (test code = 6618192666) 15 mg/dL 7-23 GLUCOSE (test code = 5736950159) 86 mg/dL 70-110 CREATININE (test code = 2160-0) 0.59 mg/dL 0.50-1.04 TOTAL BILI (test code = 2275828904) 0.4 mg/dL 0.1-1.1 CALCIUM (test code = 9016756356) 9.1 mg/dL 8.6-10.6 T PROTEIN (test code = 5202815279) 7.9 g/dL 6.3-8.2 ALBUMIN (test code = 1793520312) 4.1 g/dL 3.5-5.0 ALK PHOS (test code = 4593765594) 62 U/L 34-122 ALTv (test code = 1742-6) 15 U/L 5-35 AST(SGOT) (test code = 0278704071) 18 U/L 13-40 eGFR (test code = 11436-4) 117.7 mL/min/1.73m2 CKD-EPI eGFR (20 21). Assuming creatinine has been stable day-to-day for at least three months, the eGFR indicates Category G1 (>= 90 mL/min/1.73 m2) [facility] with [id number] 19:04:15* Test Item Value Reference Range Interpretation Comme nts WBC (test code = 6690-2) 11.06 4.30-11.10 RBC (test code = 789-8) 5.39 3.93-5.25 H HGB (test code = 718-7) 14 g/dL 11.6-15.0 HCT (test code = 4544-3) 43.5 % 35.7-45.2 MCV (test code = 787-2) 80.7 fL 80.6-95.5 MCH (test code = 785-6) 26 pg 25.9-32.8 MCHC (test code = 786-4) 32.2 g/dL 31.6-35.1 RDW-SD (test code = 32225-7) 44.6 fL 39.0-49.9 RDW-CV (test code = 788-0) 15.5 % 12.0-15.5 PLT (test code = 777-3) 421 166-358 H MPV (test code = 15072-8) 9.5 fL 9.5-12.9 NRBC/100 WBC (test code = 3552641720) 0 0.0-10.0 NRBC x10^3 (test code = 2092674536) See_Comment [Automated messa ge] The system which generated this result transmitted reference range: 10*3/?L. The reference range was not used to interpret this result as normal/abnormal. GRAN MAT (NEUT) % (test code = 770-8) 59.6 % IMM GRAN % (test code = 5422047342) 0.3 % LYMPH % (test code = 736-9) 32.2 % MONO % (test code = 5905-5) 6.1 % EOS % (test code = 713-8) 1.2 % BASO % (test code = 706-2) 0.6 % GRAN MAT x10^3(ANC) (test code = 4877545392) 6.59 10*3/uL 1.88-7.09 IMM GRAN x10^3 (test code = 1715269094) 0.03 10*3/uL 0.00-0.06 LYMPH x10^3 (test code = 731-0) 3.56 10*3/uL 1.32-3.29 H MONO x10^3 (test code = 742-7) 0.68 10*3/uL 0.33-0.92 EOS x10^3 (test code = 711-2) 0.13 10*3/uL 0.03-0.39 BASO x10^3 (test code = 704-7) 0.07 10*3/uL 0.01-0.07 Lab Interpretation (test code = 08816-7) Abnormal [facility] Pelvis complete with [id number] 17:45:26US PELVIS COMPLETE WITH TRANSVAGINAL HISTORY: ?AUB COMPARISON: None. TECHNIQUE: Transvaginal and limited transabdominal sonography of the pelviswas performed. FINDINGS: The uterus is anteverted and measures 9.3 x 4.1 x 6 cm. The myometrium iswithin normal limitsThe endometrial stripe measures 5 mm. Questionable heterogeneity of theendometrial stripe near the fundus.The cervix is kerry. Nabothian cysts are noted. The right ovary measures 1.6 x 2.4 x 1.7 cm, with a volume of 3.3 ml. Smallfollicles are present. No adnexal masses.The left ovary measures 2.8 x 1.4 x 2.3 cm, with a volume of 4.7 ml.Follicular cyst is noted. No adnexal masses. No fluid is present in the cul-de-sac. [facility] [id number] 22:50:40* Test Item Value Reference Range Interpretation Comme nts POCT Molecular FluA (test co de = 93773-3) Negative Negative POCT Molecular FluB (test co de = 09571-5) Negative Negative Lab Interpretation (test cod e = 23212-5) [facility] SARS-COV-2 ANTIGEN (BINAX NOW)2024-03-07 22:48:00* Test Item Value Reference Range Interpretation Comme nts POCT SARS-COV-2 ANTIGEN (test code = 14367-6) Not Detected Not Detected, See Comment On board controls acceptable with C Line (test code = 3574) Yes Lab Interpretation (test code = 89625-7) [facility] [id number] 22:48:00* Test Item Value Reference Range Interpretation Comme nts POCT PREG (test code = 1605) Negative On board controls acceptable with C Line (test code = 3574) Yes POCT PREG LOT # (test code = 3575) POCT PREG TEST DATE ( test code = 3576) Lab Interpretation (test cod e = 46368-1) [facility] MOLECULAR [id number] 22:43:07* Test Item Value Reference Range Interpretation Comme nts POCT Molecular Strep (test c ode = 82126-3) Negative Negative Lab Interpretation (test cod e = 46512-7) [facility] Molecular [id number] 22:27:05* Test Item Value Reference Range Interpretation Comme nts POCT Molecular FluA (test co de = 76273-5) Negative Negative POCT Molecular FluB (test co de = 80269-8) Negative Negative Lab Interpretation (test cod e = 68207-3) [facility] MOLECULAR [id number] 22:20:34* Test Item Value Reference Range Interpretation Comme nts POCT Molecular Strep (test c ode = 32301-6) Negative Negative Lab Interpretation (test cod e = 76545-9) [facility] WITH [id number] 17:00:40* Test Item Value Reference Range Interpretation [...] 32.1 g/dL 31.6-35.1 RDW-SD (test code = 39398-1) 43.7 fL 39.0-49.9 RDW-CV (test code = 788-0) 14.8 % 12.0-15.5 PLT (test code = 777-3) 334 166-358 MPV (test code = 58192-7) 9.7 fL 9.5-12.9 NRBC/100 WBC (test code = 2326207019) 0.0 0.0-10.0 NRBC x10^3 (test code = 7795279264) See_Comment [Automated messa ge] The system which generated this result transmitted reference range: 10*3/?L. The reference range was not used to interpret this result as normal/abnormal. GRAN MAT (NEUT) % (test code = 770-8) 64.3 % IMM GRAN % (test code = 4029680415) 0.40 % LYMPH % (test code = 736-9) 26.5 % MONO % (test code = 5905-5) 7.1 % EOS % (test code = 713-8) 1.1 % BASO % (test code = 706-2) 0.6 % GRAN MAT x10^3(ANC) (test code = 4823673049) 7.29 10*3/uL 1.88-7.09 H IMM GRAN x10^3 (test code = 8063282980) 0.04 10*3/uL 0.00-0.06 LYMPH x10^3 (test code = 731-0) 3.01 10*3/uL 1.32-3.29 MONO x10^3 (test code = 742-7) 0.81 10*3/uL 0.33-0.92 EOS x10^3 (test code = 711-2) 0.12 10*3/uL 0.03-0.39 BASO x10^3 (test code = 704-7) 0.07 10*3/uL 0.01-0.07 Lab Interpretation (test code = 67848-5) Abnormal [facility] [id number] 16:20:00* Test Item Value Reference Range Interpretation Comme nts POCT PREG (test code = 1605) Negative On board controls acceptable with C Line (test code = 3574) Yes POCT PREG LOT # (test code = 3575) HCG [id number] POCT PREG TEST DATE (test code = 3576) 11/11/2024 Lab Interpretation (test cod e = 23808-1) Normal [facility] MOLECULAR [id number] 15:59:33* Test Item Value Reference Range Interpretation Comme nts POCT Molecular Strep (test c ode = 57256-3) Negative Negative Lab Interpretation (test cod e = 16449-0) Normal [facility] [id number] 12:46:00* Test Item Value Reference Range Interpretation Comme nts POCT PREG (test code = 1605) Negative On board controls acceptable with C Line (test code = 3574) Yes POCT PREG LOT # (test code = 3575) POCT PREG TEST DATE ( test code = 3576) [facility] [id number] 12:46:00* Test Item Value Reference Range Interpretation Comme nts POCT PREG (test code = 1605) Negative On board controls acceptable with C Line (test code = 3574) Yes POCT PREG LOT # (test code = 3575) POCT PREG TEST DATE ( test code = 3576) [facility] [id number] 20:37:00* Test Item Value Reference Range Interpretation Comme nts POCT PREG (test code = 1605) Negative On board controls acceptable with C Line (test code = 3574) Yes POCT PREG LOT # (test code = 3575) POCT PREG TEST DATE ( test code = 3576) [facility] [id number] 20:37:00* Test Item Value Reference Range Interpretation Comme nts POCT PREG (test code = 1605) Negative On board controls acceptable with C Line (test code = 3574) Yes POCT PREG LOT # (test code = 3575) POCT PREG TEST DATE ( test code = 3576) [facility] [id number] 20:37:00* Test Item Value Reference Range Interpretation Comme nts POCT PREG (test code = 1605) Negative On board controls acceptable with C Line (test code = 3574) Yes POCT PREG LOT # (test code = 3575) POCT PREG TEST DATE ( test code = 3576) [facility] URINALYSIS W/O SPECIFIC [id number] 20:36:00* Test Item Value Reference Range Interpretation [...] ve [facility] URINALYSIS W/O SPECIFIC [id number] 20:36:00* Test Item Value Reference Range Interpretation [...] ve [facility] URINALYSIS W/O SPECIFIC [id number] 20:36:00* Test Item Value Reference Range Interpretation [...] = 3257) trace Negative - Negati ve [facility] ([facility]-19), RT-PCR/[id number] 15:19:39* Test Item Value Reference Range Interpretation Comments SARS-CoV-2 INTERPRETATION (test code = 91187) NEGATIVE SEE NOTE SARS-CoV-2 R NA NOT [...] prevalence is high. SOURCE (test code = 32074) NASOPHARYNGEAL Note: Methodolog y is Dannie Stefani Real-Time RT-PCR. The expected result or reference range is NEGATIVE (Not Detected). For more information regarding COVID-19 testing to include clinicalinformation, methodology detail, intended use, FDA authorization andrecommended fact sheets for patients or healthcare providers, see [employer] Announcement: SARS-CoV-2 (COVID-19) by NAAT at URL below (note,fact sheets are provided by method given in report:https://[email or web address].com/clinicians/cl ient-communications/ Alternatively, see downloadable PDF fact sheet at:https://www.[employer] .[employer]/NZMWA-91-OL-PCR UNLESS OTHERWISE INDICATED, ALL TESTING PERFORMED [facility] [employer] [address] [place], [place] [id number] INSPECTOR AND CLERK: OCTAVIANO GUZMAN M.D. [place] NUMBER [id number] [place]. [id number] COMPREHENSIVE METABOLIC [id number] 10:12:00* Test Item Value Reference Range Interpretation [...] code = ALKP) 65 IUnit/L 20-125 N [id number] 10:12:00* Test Item Value Reference Range Interpretation Comme nts TROPONIN-I (test code = TROPI) < 0.015 ng/mL 0.000-0.045 N Negative: <= 0.0 45 Positive: >= 0.046 Correlation with serial results, other cardiac markers andclinical findings is necessary to determine the clinicalsignificance of this result. Results using different methodologies should not be comparedto one another as quantitative results may vary by method. COMPREHENSIVE METABOLIC [id number] 10:11:00* Test Item Value Reference Range Interpretation [...] ( test code = ALKP) IUnit/L 20-125 [id number] 10:11:00* Test Item Value Reference Range Interpretation [facility] TROPONIN-I (test code = TROPI) < 0.015 ng/mL 0.000-0.045 N Negative: <= 0.0 45 Positive: >= 0.046 Correlation with serial results, other cardiac markers andclinical findings is necessary to determine the clinicalsignificance of this result. Results using different methodologies should not be comparedto one another as quantitative results may vary by method. PROTHROMBIN [id number] 09:59:00* Test Item Value Reference Range Interpretation Comme [facility] PROTHROMBIN TIME PATIENT (test code = [...] Acute Myocardial Infarction (to prevent recurrent infarct). [id number] 09:59:00* Test Item Value Reference Range Interpretation Comme nts D-DIMER (test code = DDIMER) 224 ng/mlFEU <=500 N THROMBOSIS AND/O R PULMONARY EMBOLISM AND THE CLINICAL CUT- OFF VALUE FOR EXCLUSION (500 ng/mL FEU) OF THESE CONDITIONSIS VALIDATED BY THE [employer]ER THINNER OF THE METHOD. A NEGATIVE D-DIMER RESULT WHEN COMBINED WITH A CLINICALASSESSMENT OF LOW PRETEST PROBABILITY HAS BEEN SHOWN TO HAVEA HIGH NEGATIVE PREDICTIVE VALUE OF DVT OR PE. D-DIMER VALUES >500 ng/mL FEU ARE NOT DIAGNOSTIC FOR DVT, PEor DIC WITHOUT OTHER CONFIRMATORY TESTS AND APPROPRIATECLINICAL EUALUATIONS. CBC W/AUTO [id number] 09:56:00* Test Item Value Reference Range Interpretation [...] = MDIFF) NO - XR CHEST 1 [id number] 09:56:00FAX: Dallas Cain MD [phone] [place]: St: PRE Name: CHEYENNERAGHAVENDRA CHRISTELAGUS [facility] : 1985 Age/S: 34/F [address] [place] [address] Unit #: [id number] Loc: [place] [address] Phys: Dallas Cain MD Acct: [id number] Dis Date: Status: PRE ER PHONE #: [phone] Exam Date: 08/22/2019 1003 FAX #: [phone] Reason: Chest Pain EXAMS: CPT CODE: [id number] XR CHEST 1 V 77532 PROCEDURE: CHEST SINGLE VIEW INDICATION: Chest Pain COMPARISON: There are no previous relevant studies available for correlation. FINDINGS: The lungs are clear. No pleural abnormality. The cardiomediastinal silhouette is normal for projection. The bony thorax is intact. IMPRESSION: Normal radiograph. SL: [id number] Elec tronically Signed by Jesse Sousa on 08/22/2019 at 0956 Reported and signed by: Samson Sousa M.D. CC: Dallas Cain MD Technologist: RT Maddi(R) Trnscrd Date/Time/By: 08/22/2019 (0989) : By: AryKWL Orig Print D/T: S: 08/22/2019 (4938) PAGE 1 Signed Report Notes Date/Time Note Provider Source 2024-09-11 18:54:58 Pt discharged with diagnosis of leg cramp. Printed and verbal instructions reviewed with and given to pt. Prescriptions given x 0. pt verbalized understanding of teaching and recommended follow-up. Denies questions or concerns at this time. Pt ambulatory at discharge. Appears in no apparent distress. No ataxia noted. Maday Perez RN [facility] 2024-09-11 17:43:27 Patient reports left calf pain for 5 days. Went to urgent care and they said they thought it was muscular but if she wanted to rule out blood clot to come to ER, no hx of blood clots. Perry Torres RN [facility] 2024-09-11 17:39:00 [facility] Emergency Department Note Patient Name: Raghavendra Quinn Date of : 1985 39 year old female Treatment Room: [facility] Primary Care Physician: Tobias Medina Patient Escorted by: Self [9] Mode of Arrival: Personal means [1] EMS Treatment Prior to ED Arrival: Travel and Exposure Screening: Symptoms Does patient have any of these symptoms?: (not recorded) Exposure Screening Has patient had contact with someone with a communicable disease in the last month?: (not recorded) Diseases exposed to:: (not recorded) Is Patient ?: (not recorded) Exposure Date: (not recorded) Chief Complaint: Chief Complaint Patient presents with Leg Pain Left calf History of Present Illness: History of Present Illness This is a female with a history of anxiety presenting with calf pain. The patient reports experiencing calf pain for the past 5 days. The pain is located in the calf and sometimes extends from the lower leg up to the thigh. She describes the pain as tightness, similar to a muscle strain. The pain is alleviated when she positions her leg in a certain way. She has no history of blood clots or clotting disorders, although she recalls a previous test indicating an abnormal D-dimer level. The patient smokes occasionally, about once every three months. She is not currently using oral contraceptive pills or any hormone-containing intrauterine devices (IUDs). She also mentions that she has anxiety, which may be contributing to her perception of the pain. A previous consultation with a doctor suggested that the pain could be muscular in nature, but recommended further investigation to rule out a potential blood clot. SOCIAL HISTORY The patient smokes occasionally, about once every 3 months. FAMILY HISTORY The patient's mother has had a history of blood clots. HPI Past Medical History/Immunizations: Past Medical History: Diagnosis Date Absence of menstruation 09/28/2016 Anemia, antepartum, third trimester 04/19/2017 Anxiety 2020 self manages Chlamydia 08/2014 Depression not on meds Encounter for other general counseling or advice on contraception 09/06/2023 IUD complication Papanicolaou smear of cervix with low grade squamous intraepithelial lesion (LGSIL) 08/30/2014 Allergies: No Known Allergies Past Social History: Tobacco Use Former; 0.2 packs/day; Smoked an average of 0.2 packs/day for 10.0 years; Types: Cigarettes Smokeless Tobacco: Never used smokeless tobacco. Comments: smokes 2 x socially - Vaping Use Never used Alcohol Use Not Currently. Comments: socially Drug Use Not Currently. Sexual Activity Sexually active; Partners: Male; Control/Protection: None. Past Surgical History: Past Surgical History: Procedure Laterality Date APPENDECTOMY 2012 COSMETIC SURGERY 2002 facial mole removal REMOVE INTRAUTERINE DEVICE Review of Systems: Review of Systems Constitutional: Negative for fever. Respiratory: Negative for shortness of breath. Cardiovascular: Negative for chest pain. Musculoskeletal: Positive for myalgias. Negative for arthralgias. Physical Exam: Physical Exam Musculoskeletal: Pain and tightness in the right calf, consistent with muscle strain. ED Triage Vitals [09/11/24 1744] Weight 88.5 kg (195 lb) Actual or estimated Height 1.549 m (5' 1") BP 119/76 Pulse 82 Resp 20 Temp 37.2 ?C (99 ?F) Temp source Oral SpO2 98 % Measured on Physical Exam Constitutional: General: She is not in acute distress. Appearance: She is well-developed. HENT: Head: Normocephalic and atraumatic. Eyes: Pupils: Pupils are equal, round, and reactive to light. Cardiovascular: Rate and Rhythm: Normal rate. Pulmonary: Effort: Pulmonary effort is normal. Abdominal: General: There is no distension. Tenderness: There is abdominal tenderness (left calf). Musculoskeletal: General: Normal range of motion. Cervical back: Normal range of motion. Skin: General: Skin is warm and dry. Neurological: Mental Status: She is alert and oriented to person, place, and time. Radiology: No orders to display Lab Results: Lab Results - No data to display EKG: If EKG completed, see Procedure Note. Orders and Treatments: Orders Placed This Encounter Procedures POCUS DVT US No orders of the defined types were placed in this encounter. First Provider Eval: ED Events None ED COURSE Diagnosis/Impression as of 09/11/24 1828 Leg cramp Results Procedures: Procedures MDM: Assessment & Plan Initial Assessment: Calf pain for 5 days, described as tight and similar to a muscle strain. No history of blood clots, but family history present. Occasional smoker. Differential Diagnosis: - Blood clot: Family history, occasional smoking. Plan: Perform ultrasound. - Muscle strain: Pain description. Plan: Symptomatic treatment if ultrasound negative. ED Course: - Ultrasound performed by colleague. Negative for DVT. Final Assessment: Ultrasound performed to rule out blood clot. Considering muscle strain if ultrasound negative. Clinical Impression: - Calf pain Disposition: - Discharge: Home. Return if symptoms worsen or new symptoms develop. - Follow-Up: Outpatient follow-up if needed based on ultrasound results. Medical Decision Making Flowsheet Documentation: Scoring Tools: No data recorded Disposition/Condition: ED Disposition ED Disposition Discharge Condition Stable Comment -- Discharge Medications: Patient's Medications START taking these medications No medications on file CONTINUE taking these medications which have NOT CHANGED CYCLOBENZAPRINE 10 MG TABLET Take 1 tablet by mouth 3 times daily as needed for Muscle Spasms. HYDROXYZINE 50 MG TABLET Take 1 tablet by mouth at bedtime. IBUPROFEN 600 MG TABLET Take 1 tablet by mouth every 6 hours as needed for Pain (scale 4-6). METRONIDAZOLE 500 MG TABLET Take 1 tablet by mouth in the morning and 1 tablet in the evening. START taking Modified Medications as Prescribed No medications on file STOP taking these medications No medications on file Follow-up: Contact information for follow-up Jared Collado FNP Specialty: [facility]FAMILY Relationship: PCP - General [facility] [address] [place] [id number] Instructions: For follow up of the presenting symptoms. ADC-Emergency Department Specialty: Emergency Medicine [address] [facility] [address] Instructions: If symptoms worsen as documented in the discharge Electronically signed by: Jag Magana DO 09/11/241827 T [facility] 2024-09-10 13:30:00 Images from the original note were not included. Venipuncture collection performed by clean technique on the left anticubitus. Total of 1 attempts were made. Slight pressure and a bandage/dressing were applied to the site(s). The patient experienced no complications. The following specimens were processed according to instructions and sent to [facility] laboratories per lab order on 09/10/2024: LT BLUE SST 3 RED LAV PPT DK GREEN (LiHep) DK GREEN (SodH) JEFFRIES DK BLUE (K2) DK BLUE (S) ACD Blood Culture NIPT/NTD T [facility] 2024-06-29 16:14:46 See result note when the labs are reviewed. T [facility] 2024-06-28 16:23:50 Please review and advise. JOSE 06/25/24 Mona Melgar LVN [facility] 2024-06-27 11:45:00 Images from the original note were not included. Venipuncture collection performed by clean technique on the left anticubitus. Total of 1 attempts were made. Slight pressure and a bandage/dressing were applied to the site(s). The patient experienced no complications. The following specimens were processed according to instructions and sent to [facility] laboratories per lab order on 06/27/2024 : LT BLUE SST 2 RED LAV 2 PPT DK GREEN (LiHep) DK GREEN (SodH) JEFFRIES DK BLUE (K2) DK BLUE (S) ACD Blood Culture NIPT/NTD [facility] 2024-06-25 14:00:00 Addended by: MUSTAPHA BACA DNP-TYRESE COWAN on: 07/02/2024 11:25 AM Modules accepted: Orders [facility] 2024-06-25 13:35:03 Last Refilled: Disp Refills Start End SIDDHARTHA ergocalciferol, vitamin d2, 1,250 mcg (50,000 unit) capsule 12 capsule 1 12/15/2023 -- -- Sig: Take 1 capsule by mouth weekly. Sent to pharmacy as: ergocalciferol (vitamin D2) 1,250 mcg (50,000 unit) capsule (CALCIFEROL) Class: eRX Route: Oral Order: [id number] Date/Time Signed: 12/15/2023 16:03 E-Prescribing Status: Receipt confirmed by pharmacy (12/15/2023 4:04 PM QUALITY MANAGEMENT COORDINATOR) Notes: Recent Visits Date Type Provider Dept 01/23/24 Office Visit Jared Collado, ARCHITECT [facility] 12/15/23 Office Visit Tyrese Baca [facility] 11/03/23 Office Visit Tyrese Baca [facility] Showing recent visits within past 540 days with a meds authorizing provider and meeting all other requirements Today's Visits Date Type Provider Dept 06/25/24 Appointment Tyrese Baca [facility]CH[facility] Showing today's visits with a meds authorizing provider and meeting all other requirements Future Appointments No visits were found meeting these conditions. Showing future appointments within next 150 days with a meds authorizing provider and meeting all other requirements [facility] 2024-06-23 17:08:35 Please review. JOSE 01/23/24 NOV not scheduled T Mona Melgar LVN [facility] 2024-06-14 11:00:00 Reviewed, relatively normal pelvic Ultrasound. T [facility] 2024 19:00:00 Addended by: LAURA LOWE on: 2024 07:53 PM Modules accepted: Orders [facility] 2024-01-23 16:45:00 Images from the original note were not included. Venipuncture collection performed by clean technique on the left anticubitus. Total of 1 attempts were made. Slight pressure and a bandage/dressing were applied to the site(s). The patient experienced no complications. The following specimens were processed according to instructions and sent to [facility] laboratories per lab order on 01/23/2024 : LT BLUE SST 2 RED 1 LAV PPT DK GREEN (LiHep) DK GREEN (SodH) JEFFRIES DK BLUE (K2) DK BLUE (S) ACD Blood Culture NIPT/NTD ITY MANAGEMENT COORDINATOR [facility] 2023-12-29 11:51:52 Pt given printed and verbal [...] with steady gait, in no apparent distress. TH Mccarthy RN [facility] 2023-12-29 09:07:26 Patient states "I started bleeding yesterday and I thought it was my regular period. I am bleeding what is not normal, I am bleeding a lot and having pain on the left side." TH Soares RN [facility] 2023-12-15 16:45:00 Images from the original note were not included. Venipuncture collection performed by clean technique on the left anticubitus. Total of 1 attempts were made. Slight pressure and a bandage/dressing were applied to the site(s). The patient experienced no complications. The following specimens were processed according to instructions and sent to [facility] laboratories per lab order on TODAY: LT BLUE SST 1RST RED LAV PPT DK GREEN (LiHep) DK GREEN (SodH) JEFFRIES DK BLUE (K2) DK BLUE (S) ACD Blood Culture NIPT/NTD Urine collected in office. POCT only.Sugey Wang 12/15/2023 4:50 PM [facility] 2023-11-08 18:16:14 See lab result note when available- likely by tomorrow, during which this will be addressed. T [facility] 2023-11-04 11:00:00 Images from the original note were not included. Venipuncture collection performed by clean technique on the right anticubitus. Total of 1 attempts were made. Slight pressure and a bandage/dressing were applied to the site(s). The patient experienced no complications. The following specimens were processed according to instructions and sent to [facility] laboratories per lab order on 11/04/2023 : LT BLUE SST 2 RED LAV 2 PPT DK GREEN (LiHep) DK GREEN (SodH) JEFFRIES DK BLUE (K2) DK BLUE (S) ACD Blood Culture NIPT/NTD [facility] 2022-09-01 09:11:30 Formatting of this n ote is different from the original. 09/01/22 Community Wellness and Outreach team contacted patient to assist in completing Health Maintenance topics that are overdue. Raghavendramariah Quinn [id number] Attempt Number: 1st attempt Health Maintenance topics addressed: Health Maintenance Due Topic Date Due SARS-CoV-2 (COVID-19) Vaccine (1) Never done Depression Screening 09/18/2020 Call outcome: Attempted to get in contact with patient regarding missed annual visit appointment. No answer. LVM for patient to return phone call. Deja Strong MA [facility] 2019-08-22 09:39:00 [facility] ([facility] EMERGENCY PROVIDER REPORT REPORT#:[id number] REPORT STATUS: Signed DATE:08/22/19 TIME: 938 PATIENT: RAGHAVENDRA QUINN UNIT #: [id number] ROOM/BED: AGE: 34 SEX: F PCP PHYS: [...] Pulse 115 08/21 0919 Resp 18 08/21 918 Last Documented: Result Date Time Pulse Ox 100 08/21 0919 B/P 121/77 08/21 0919 B/P Mean 91 08/21 0819 O2 Delivery Room air 08/21 918 Temp 99.1 08/21 918 Pulse 115 08/21 0919 Resp 18 08/21 0819 Review of Vital Signs Reviewed Focused PE [...] (Auto) (14.0 - 32.0 %) 37.2 H Hutchinson % (Auto) (4.8 - 9.0 %) 7.7 Eos % (Auto) (0.3 - 3.7 %) 0.8 Baso % (Auto) (0.0 - 2.0 %) 0.5 Neut # (Auto) (2.0 - 7.6 x10 3/uL) 7.13 Lymph # (Auto) (1.0 - 3.8 x10 3/uL) 4.96 H Hutchinson # (Auto) (0.1 - 0.8 x10 3/uL) [...] Entered: 08/22/2019 1003 IMPRESSION: Normal radiograph. SL: [id number] Impression By: Krissy Sousa M.D. Point of [...] DC PO Aspirin 324 MG X1ED STA 08/22 931 DC 08/21 PO 08/21 0833 0940 Electrolytic, Caloric, And Carlitos Sig/Vince Start time Last Medication Dose Route Stop Time Status Admin Sodium Chloride 0 ASDIR PRN 08/21 944 AC IV 08/23 831 Patient Discharge Departure Vital Signs/Condition Vital Signs First Documented: Result Date Time Pulse Ox 100 08/21 0919 B/P 121/77 08/21 0919 B/P Mean 91 08/21 09 O2 Delivery Room air 08/21 918 Temp 99.1 08/21 918 Pulse 115 08/21 0919 Resp 18 08/21 918 Last Documented: Result Date Time Pulse Ox 100 08/21 0919 B/P 121/77 08/21 0919 B/P Mean 91 08/21 918 O2 Delivery [...] No Known Home Medications at 1030 RPT #:[id number] END OF REPORT [facility]
[2024-09-11 23:26] LABS: Absolute Lymphocytes (CBC) 5.0 K/uL (0.7-4.9); Hematocrit 39.5 % (36.0-45.0); Hemoglobin 12.8 g/dL (12.0-15.0); MCH 24.8 pg (27.0-35.0); MCHC 32.5 g/dL (32.0-36.0); MCV 76.4 fL (80-100); MPV 7.4 fL (7.6-11.3); Nucleated RBC Absolute Count 0.0 (0-0); Nucleated Red Blood Cells % 0.0 % (0-0); RBC Red Blood Cell Count 5.17 M/uL (3.86-4.86); White Blood Count 13.80 thou/uL (4.3-10.9)
[2024-09-11 23:37] LABS: Anion Gap 6.7 mEq/L (5.0-15.0); BUN Blood Urea Nitrogen 14.0 mg/dL (7-18); Glucose Level 109.0 mg/dL (74-106); Potassium 3.7 mEq/L (3.5-5.1)
[2024-09-12] MEDS ORDERED: DIAZEPAM 5 MG TABLET ONE (00:38)
--- NOTE | 2024-09-12 03:22 | EDPHYS ---
Physician Documentation [facility] Name: Goyo Solorio Age: 39 yrs Sex: Female : 1985 Arrival Date: 09/11/2024 Time: 22:35 Bed 20 Private MD: ED Physician Edu Rucker HPI: 09/11 23:37 This 39 yrs old Female presents to ER via Ambulatory with complaints of Chest rn Tightness, Leg Pain. 23:45 Patient reports having left calf pain and swelling of left lower extremity. Noticed it rn yesterday. No trauma. No recent procedure or injury. No immobilization. No history of cancer. Patient reports was having difficulty breathing but not sure if it was due to her anxiety. Denies any fever or chills. No hemoptysis. No history of DVT or PE. Is active smoker but only occasionally. Patient has bad anxiety. 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 - Infectious Disease History:: Denies. - Social history:: Smoking status: Patient reports the use of cigarette tobacco products, denies chronic smoking, but will smoke occasionally. - Family history:: not pertinent. - Hospitalizations: : No recent hospitalization is reported. ROS: 23:45 Constitutional: Negative for fever, chills, and weight loss, Cardiovascular: Negative rn for palpitations, and edema, Respiratory: Negative for cough, wheezing, and pleuritic chest pain, Abdomen/GI: Negative for abdominal pain, nausea, vomiting, diarrhea, and constipation, MS/Extremity: Positive for left calf pain and left lower extremity swelling Skin: Negative for injury, rash, and discoloration, Neuro: Negative for headache, weakness, numbness, tingling, and seizure, Exam: 23:15 ECG was reviewed by the Attending Physician. rn 23:45 Constitutional: This is a well developed, well nourished patient who is awake, alert, rn and in no acute distress. Cardiovascular: Regular rate and rhythm. No pulse deficits. Respiratory: Speaking full sentences, unlabored. No increased work of breathing, no retractions or nasal flaring. Skin: No cyanosis or cellulitis MS/ Extremity: Pulses equal, no cyanosis. Neurovascular intact. Full, normal range of motion. Mild tenderness left calf. Left lower extremity 0.5 cm greater circumference compared to right lower extremity. No evidence of cellulitis or warmth or erythema. Neuro: Awake and alert, GCS 15 Vital Signs: 22:41 BP 114 / 78; Pulse 83; Resp 16; Temp 98.7(O); Pulse Ox 98% on R/A; Weight 88 kg (R); jb4 Height 5 ft. 1 in. (R); Pain 4/10; 09/12 00:30 BP 123 / 81; Pulse 96; Resp 18; Pulse Ox 98% ; sd4 09/11 22:41 Body Mass Index 36.66 (88.00 kg, 154.94 cm) 4 09/11 22:41 Pain Scale: Adult jb4 MDM: 09/11 22:43 Medical Screening Exam initiated rn 09/12 03:19 Differential diagnosis: anxiety, chest wall pain, pulmonary embolus, dvt. HEART Score: rn History: Slightly Suspicious (0), ECG: Normal (0), Age: < or = 45 years (0), Risk Factors: No Risk Factors Known (0), Total Score = 0. Data reviewed: vital signs, nurses notes, lab test result(s), EKG, radiologic studies, CT scan, doppler, plain films, and as a result, I will discharge patient. Independent interpretation of the following test(s) in the Emergency Department X-Ray: My interpretation is X-ray images negative for pneumothorax per my interpretation. Care significantly affected by the following chronic conditions: Anxiety. Counseling: I had a detailed discussion with the patient and/or guardian regarding the historical points, exam findings, and any diagnostic results supporting the discharge/admit diagnosis, radiology results, the need for outpatient follow up, to return to the emergency department if symptoms worsen or persist or if there are any questions or concerns that arise at home. Response to treatment: the patient's symptoms have markedly improved after treatment, and as a result, I will discharge patient. Special discussion: I discussed with the patient/guardian in detail that at this point there is no indication for admission to the hospital. It is understood, however, that if the symptoms persist or worsen the patient needs to return immediately for re-evaluation. ED course: Negative workup including ultrasound left lower extremity and CT PE protocol. No signs of infection. Will discharge home with conservative treatment and given strict return precautions. I have personally reviewed all of the results, including but not limited to blood tests and imaging deemed necessary to safely discharge this patient at this time. All results given to and printed out for patient. I personally went over all the results with the patient and answered all questions. Patient will follow-up with PCP and or specialist as discussed. Return precautions given and understood.. 09/11 22:46 Order name: CBC with Diff; Complete Time: 00:00 rn 09/11 22:46 Order name: Basic Metabolic Panel; Complete Time: 00:00 rn 09/11 22:46 Order name: D-Dimer; Complete Time: 00:00 rn 09/12 00:10 Order name: Test, Serum; Complete Time: 01:10 vk 09/11 22:45 Order name: Extremity Venous Uni Ltd US rn 09/11 22:45 Order name: XRAY Chest (1 view) rn 09/12 00:01 Order name: CT Chest For PE Angio rn 09/11 22:45 Order name: EKG; Complete Time: 22:46 rn 09/11 22:45 Order name: EKG - Nurse/Tech; Complete Time: 22:54 rn 09/11 22:46 Order name: IV Start; Complete Time: 23:15 rn EC/05 23:15 Rate is 100 beats/min. Rhythm is regular. QRS Hoffman is Normal. ND interval is normal. rn QRS interval is normal. QT interval is normal. No Q waves. T waves are Normal. No ST changes noted. Clinical impression: Normal ECG. Interpreted by me. Reviewed by me. Administered Medications: 09/12 00:42 Drug: Diazepam PO 5 mg PO once Route: PO; br2 03:40 Follow up: Response: No adverse reaction sd4 Disposition Summary: 09/12/24 03:21 Discharge Ordered Notes: Location: Home rn Problem: new rn Symptoms: have improved rn Condition: Stable rn Diagnosis - Chest pain, unspecified rn - Pain in left lower leg rn Followup: rn - With: Private Physician - When: As needed - Reason: Recheck today's complaints, Re-evaluation by your physician Discharge Instructions: - Discharge Summary Sheet rn - Nonspecific Chest Pain, Adult rn Forms: - Medication Reconciliation Form rn - Antibiotic rn hospital - Prescription Opioid Use rn - Patient Portal Instructions rn - Leadership Thank You Letter rn Signatures: Dispatcher [employer] Edu Vaughn MD MD rn Bryson, James, RN RN jb4 Analilia Dawn RN RN br2 Rin Fisher RN sd4
--- NOTE | 2024-09-12 03:22 | ER ---
Nurse's Notes [facility] Name: Goyo Solorio Age: 39 yrs Sex: Female : 1985 Arrival Date: 09/11/2024 Time: 22:35 Bed 20 Private MD: Diagnosis: Chest pain, unspecified;Pain in left lower leg Presentation: 09/11 22:41 Chief complaint: Patient states: I have pain in the back on my left calf and I am jb4 having chest tightness, and back discomfort. Coronavirus screen: At this time, the client does not indicate any symptoms associated with coronavirus-19. Ebola Screen: No symptoms or risks identified at this time. Initial Sepsis Screen: Does the patient meet any 2 criteria? No. Patient's initial sepsis screen is negative. Does the patient have a suspected source of infection? No. Patient's initial sepsis screen is negative. Risk Assessment: Do you want to hurt yourself or someone else? Patient reports no desire to harm self or others. Onset of symptoms was September 07, 2024. Transition of care: patient was not received from another setting of care. 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 - Infectious Disease History:: Denies. - Social history:: Smoking status: Patient reports the use of cigarette tobacco products, denies chronic smoking, but will smoke occasionally. - Family history:: not pertinent. - Hospitalizations: : No recent hospitalization is reported. Screenin/06 00:30 [facility] ED Fall Risk Assessment (Adult) History of falling in the last 3 months, sd4 including since admission No falls in past 3 months (0 pts) Confusion or Disorientation No (0 pts) Intoxicated or Sedated No (0 pts) Impaired Gait No (0 pts) Mobility Assist Device Used No (0 pt) Altered Elimination No (0 pt) Score/Fall Risk Level 0 - 2 = Low Risk Oriented to surroundings, Maintained a safe environment, Educated pt \T\ family on fall prevention, incl call for assistance when getting out of bed. Abuse screen: Denies threats or abuse. Denies injuries from another. Nutritional screening: No deficits noted. Tuberculosis screening: No symptoms or risk factors identified. Assessment: 00:30 General: Appears distressed, Behavior is anxious, crying, Reports. sd4 00:30 Pain: Complains of pain in right leg and left leg Quality of pain is described as sd4 aching, crampy, Pain began 2-3 days ago. Is intermittent. Neuro: Level of Consciousness is awake, alert, Oriented to person, place, time, situation, Reports. Cardiovascular: Reports chest pain, shortness of breath, Capillary refill < 3 seconds Pulses are all present. Chest pain. Respiratory: No deficits noted. GI: No deficits noted. No signs and/or symptoms were reported involving the gastrointestinal system. : No deficits noted. No signs and/or symptoms were reported regarding the genitourinary system. EENT: No deficits noted. No signs and/or symptoms were reported regarding the EENT system. Derm: No deficits noted. No signs and/or symptoms reported regarding the dermatologic system. Musculoskeletal: Reports pain in right leg and left leg. Vital Signs: 09/11 22:41 BP 114 / 78; Pulse 83; Resp 16; Temp 98.7(O); Pulse Ox 98% on R/A; Weight 88 kg (R); jb4 Height 5 ft. 1 in. (R); Pain 4/10; 09/12 00:30 BP 123 / 81; Pulse 96; Resp 18; Pulse Ox 98% ; sd4 09/11 22:41 Body Mass Index 36.66 (88.00 kg, 154.94 cm) jb4 09/11 22:41 Pain Scale: Adult jb4 ED Course: 09/11 22:39 Patient arrived in ED. mr 22:43 Edu Rucker MD is Attending Physician. rn 22:43 Triage completed. jb4 22:43 Arm band placed on right wrist. jb4 22:45 Rin Fisher, RN is Primary Nurse. sd4 22:58 XRAY Chest (1 view) In Process Unspecified. EDMS 23:08 Extremity Venous Uni Ltd US In Process Unspecified. EDMS 23:15 D-Dimer Sent. hw 23:15 Basic Metabolic Panel Sent. hw 23:15 CBC with Diff Sent. hw 23:15 Inserted saline lock: 20 gauge in left antecubital area, using aseptic technique. Blood hw collected. Flushed with 10 mL NS. 06 00:03 EKG done, by ED staff, reviewed by Edu Rucker MD. hw 00:30 Patient has correct armband on for positive identification. Bed in low position. Call sd4 light in reach. Side rails up X 1. Client placed on continuous cardiac and pulse oximetry monitoring. NIBP monitoring applied. 00:30 No provider procedures requiring assistance completed. Patient maintains SpO2 sd4 saturation greater than 95% on room air. 01:22 CT Chest For PE Angio In Process Unspecified. EDMS 03:40 Provided Education on: pain. sd4 03:40 IV discontinued, intact, bleeding controlled, No redness/swelling at site. Pressure sd4 dressing applied. Administered Medications: 00:42 Drug: Diazepam PO 5 mg PO once Route: PO; br2 03:40 Follow up: Response: No adverse reaction sd4 Medication: 00:30 VIS not applicable for this client. sd4 Outcome: 03:21 Discharge ordered by . rn 03:40 Discharged to home ambulatory, sd4 03:40 Condition: stable sd4 03:40 Discharge instructions given to patient, Instructed on discharge instructions, follow up and referral plans. Demonstrated understanding of instructions, follow-up care, Prescriptions given X 04:15 Patient left the ED. sd4 Signatures: Dispatcher [employer] [facility] Lanie Mccarthy, Reg Reg mr Edu Rucker MD MD rn Bryson, James, RN RN jb4 Analilia Dawn RN RN br2 Cherelle Cano Rin Fisher, RN RN sd4
[2024-09-12 04:30] VITALS: TEMP 98.7; O2SAT 98
[2024-09-12 04:33] VITALS: BP 123/81
--- NOTE | 2024-09-12 04:35 | RAD REPORT ---
CT Angiography Chest With Intravenous Contrast CLINICAL HISTORY: The patient is 39 years old and is Female; SOB, elevated d-dimer TECHNIQUE: Axial computed tomographic angiography images of the chest with intravenous contrast. Sagittal an d coronal reformatted images were created and reviewed. This CT exam was performed using one or more of the following dose reduction techniques: automated exposure control, adjustment of the mA a nd/or kV according to patient size, and/or use of iterative reconstruction technique. MIP reconstructed images were created and reviewed. COMPARISON: No relevant prior studies available. FINDINGS: PULMONARY ARTERIES: There are no obvious filling defects identified within the pulmonary arteries to suggest pulmonary embolism. AORTA: No acute findings. No thoracic aortic aneurysm. LUNGS AND PLEURAL SPACES: Unremarkable. No mass. No consolidation. No significant effusion. No pneumothorax. HEART: Unremarkable. No cardiomegaly. No significant pericardial effusion. No evidence of R V dysfunction. BONES/JOINTS: No acute fracture. No dislocation. SOFT TISSUES: Unremarkable. LYMPH NODES: Unremarkable. No enlarged lymph nodes. IMPRESSION: No evidence of pulmonary embolism. Electronically signed by: Liberty Rubalcava MD 09/12/2024 02:27 AM [facility] Due to temporary technical issues with the PACS/Ridango reporting system, reports are being jacky d by the in-house radiologist without review as a courtesy to ensure prompt reporting the interpreting radiologist is fully responsible for the content of the report. Transcribed Date/Time: 09/12/2024 4:35 AM
--- NOTE | 2024-09-12 06:01 | RAD REPORT ---
EXAM: XR Chest, 1 View CLINICAL HISTORY: The patient is 39 years old and is Female; DYSPNEA TECHNIQUE: Frontal view of the chest. COMPARISON: No relevant prior studies available. FINDINGS: LUNGS: Unremarkable. No consolidation. PLEURAL SPACE: Unremarkable. No pneumothorax. HEART: Unremarkable. No cardiomegaly. MEDIASTINUM: Unremarkable. Normal mediastinal contour. BONES/JOINTS: Unremarkable. No acute fracture. UPPER ABDOMEN: Unremarkable as visualized. IMPRESSION: No acute cardiopulmonary process. Electronically signed by: Liberty Rubalcava MD 09/11/2024 11:19 PM CDT RP Due to temporary technical issues with the PACS/[employer] reporting system, reports are being jacky d by the in-house radiologist without review as a courtesy to ensure prompt reporting the interpreting radiologist is fully responsible for the content of the report. Transcribed Date/Time: 09/12/2024 6:01 AM
--- NOTE | 2024-09-12 06:59 | RAD REPORT ---
EXAM: Extremity Venous [facility] [employer] US Left Lower Extremity Venous Duplex Doppler HISTORY: pain COMPARISON: None TECHNIQUE: Grayscale, color Doppler, duplex Doppler, spectral Doppler images and analysis with compre ssion and augmentation of left lower extremity veins. FINDINGS: Left common femoral, greater saphenous, femoral, deep (profunda) femoral, popliteal, posterior tibial veins unremarkable without evidence of clot. IMPRESSION: No sonographic evidence of left lower extremity DVT. Electronically signed by: Jair Calixto MD 09/11/2024 11:23 PM CDT Due to temporary technical issues with the PACS/[employer] reporting system, reports are being jacky d by the in-house radiologist without review as a courtesy to ensure prompt reporting the interpreting radiologist is fully responsible for the content of the report. Transcribed Date/Time: 09/12/2024 6:58 AM
== END 2024-09-12 04:15 | disposition home or self-care (01) ==
LOC: ER 22:35
DX: R07.9 Chest pain, unspecified (principal); M79.662 Pain in left lower leg; F17.210 Nicotine dependence, cigarettes, uncomplicated
CPT/HCPCS: 93005; 85025; 80048; 36415; 84703; 85379; 71275; 71045; 93971; 99284; Q9967

== ENCOUNTER 2024-09-29 09:55 | Emergency (ER) | payer OTHER ==
--- OUTSIDE RECORDS SUMMARY | 2024-09-29 10:03 | XMS REPORT | Continuity of Care Document ---
Author Name Unknown Address [address] [facility] [address] [place] [address] [facility] Address [address] [facility] [place] [address] Care Team Providers Care Typewriter Ribbon Winder Name Role Phone Jared Torre Primary Care Physician [phone] TYRESE BACA Attending Clinician Unavailable SHARON GAVIRIA Attending Clinician Unavailable Nurse, [facility] Attending Clinician Unava ilable Unknown, Attending Attending Clinician Unavailab GERTRUDE Cunningham Attending Clinician Un available JARED COLLADO Attending Clinician Unavailable Tyrese Nunn Attending Clinician [phone] VICKIE VILLALOBOS Attending Clinician Unavailable Jag Magana DO Attending Clinician [phone] Paris Cordova Attending Clinician [phone] Zeinab Villalobos MD Attending Clinician + [phone] 2, [facility] Attending Clinician Unavailable ZEINAB VILLALOBOS Attending Clinician ZEINAB Kenney Attending Clinician Indira Gallegos PA-C, Khanh Attending Clinician [phone] Sharon Sin Attending Clinician + [phone] PAOLA REHMAN Attending Clinician Unavailable PAOLA REHMAN Attending Clinician Unavailable DELMY VAZQUEZ Attending Clinician Unavailabl Delmy Bray NP Attending Clinician + [phone] Owen CARVALHOPNora Attending Clinician [phone] PAMELA PRESLEY Attending Clinician Unavailab Pamela Marie Attending Clinician + [phone] LAURA LOWE Attending Clinician Unavailable Laura Joshua Attending Clinician [phone] Lab, Ang - Damon Attending Clinician Unavailable Jared Torre Attending Clinician +[phone] Doctor Unassigned, [place] Attending Clinician U navailable NASEEM PATTERSON Attending Clinician Unavailable NASEEM PATTERSON Attending Clinician Unavailable Naseem Campbell Attending Clinician [phone] Vickie Purvis Attending Clinician [phone] ANALISA SUAREZ Attending Clinician Unavail able GUERRERO STAHL Attending Clinician Unav ailable Provider, [facility] Kia clary Diego MD, Guerrero Attending Clinician + Akinarron WHCNAnalisa Crowley Attending Clinician + JULY RICE Attending Clinician Unavailable RAMON WILDER Attending Clinician Deja Dacosta MA Attending Clinician Unavailabl e Laura Joshua Attending Clinician [phone] Unknown, Attending Attending Clinician Unavailab DEE Boucher Attending Clinician Unavailable Pgy3 Attending Clinician Unavailable Dee Huffman MD Attending Clinician Doctor Unassigned, [place] Attending Clinician U fatuma Preeti LUNA, Deja Lemus Attending Clinician [phone] DEJA ÁLVAREZ Attending Clinician Unavaila KHANH Castrejon Attending Clinician Unavailable Phuong POWER MARKETER, Tyrese Attending Clinician [phone] Tobias POWER MARKETER, Jared Attending Clinician [phone] Zafar CARVALHOP, Dany R Attending Clinician +[phone] DANY CARIAS R Attending Clinician Unavailab RAMÓN Trejo Attending Clinician Unavailable Yan PA-C, Ramón Attending Clinician [phone] Pob, [facility] Main Attending Clinician Unavailtita Simon PNP, Shanita Call Attending Clinician [phone] Ramiro RN, Janae Sunshine Attending Clinician Unavaila tonio STANFORD, Manuel JOLLEY Attending Clinician Unavailable Hien PACManuel Attending Clinician [phone] Lab, Ang - Db Attending Clinician Unavailable Shanon Beckham MD Attending Clinician [phone] Octavia POWER MARKETEROumar Attending Clinician [phone] OUMAR DUDLEY Attending Clinician UnavailJuly Snider LVN Attending Clinician UnaMARIA ISABEL Alvarez Attending Clinician Unavailable Joanna POWER MARKETER, Maria Isabel Attending Clinician [phone] GABRIELLE MARTÍNEZ Attending Clinician Unavailable Gabrielle Dillard Attending Clinician + [phone] Fernandez CARVALHOPPamela Attending Clinician + [phone] GERTRUDE MILLAN Attending Clinician UnavailMINOO Garcia Attending Clinician UnavailJAG Wray Attending Clinician Unavailable Jag Magana DO Attending Clinician [phone] JOB KASPER Attending Clinician Unavailable Job Kasper MD Attending Clinician [phone] JIMENA MAYO Attending Clinician Unavailable Sarah LEES, Carine Attending Clinician [phone] NORA SANCHEZ Attending Clinician Unavailtita Sanchez POWER MARKETER, Nora Montoya Attending Clinician [phone] Roger HERRERA, Leidy Attending Clinician Unavailable Nurse, [facility] Attending Clinician Unava iljames Matthew POWER MARKETER, [place] Attending Clinician [phone] Toby Richards MD Attending Clinician +[phone] TOBY RICHARDS Attending Clinician Unavailable 1, [facility] Usg Room Attending Clinician Unavailmariah Jiménez RN, Mike Attending Clinician Unavailab brittany Ultrasound, [facility] Attending Clinician Unavailmariah Domingo MD, Jordan Salcedo Attending Clinician [phone] Julio Da Silva APN Attending Clinician +[phone] Radha HERRERA, Lynn Lemus Attending Clinician Unavailab brittany Jamil MD, Tracey Attending Clinician [phone] Yoshi Esparza MD Attending Clinician [phone] Bijan LEES, Minoo Lemus Attending Clinician + [phone] Only, [facility] Test Attending Clinician Unavailable Brittnee LEES, Kevan Attending Clinician +[phone] Pob1, [facility] Attending Clinician UnaMELODY Dennison Attending Clinician Unavailmariah mac Provider, [facility] Attending Clinician Un available Corazon POWER MARKETER, Kvng Banks Attending Clinician [phone] Nurse, [facility] Attending Clinician Unava ilable UNKNOWN, ATTENDING Attending Clinician Unavailab brittany Rivera POWER MARKETER, Simba Attending Clinician [phone] ZEINAB VILLALOBOS Admitting Clinician UnaManuel Dodd Admitting Clinician Unavailable GBARIELLE MARTÍNEZ Admitting Clinician Unavailable JIMENA MAYO Admitting Clinician Unavailable Payers Payer Name Policy Type Policy Number Effective Date Expirati on Date Source [facility] MEDICAID [id number] 2019 00:00:00 [facility] [id number] 2016 00:00:00 MEDICAID PENDING PENDING 2019 00:00:00 Problems Condition Name Condition Details Condition Category Status Onset Date Resolution Date Last Treatment Date Treating Clinician Comments Source Upper respirator y tract infection, unspecifie d type Upper respirator y tract infection, unspecifie d type Disease Active 2023-02 2-16 00:00: 00 [facility] Cellulitis of mouth Cellulitis of mouth Disease Active 2023-02 2-16 00:00: 00 [facility] Prediabete s Prediabete s Disease Active 11-02 00:00: 00 [facility] Insomnia, unspecifie d type Insomnia, unspecifie d type Disease Active 11-02 00:00: 00 [facility] Chronic constipati on Chronic constipati on Disease Active 11-02 00:00: 00 [facility] Irregular menstrual cycle Irregular menstrual cycle Disease Active 09-05 00:00: 00 [facility] Encounter for other general counseling or advice on contracept ion Encounter for other general counseling or advice on contracept ion Disease Active 09-05 00:00: 00 [facility] Diverticul osis Diverticul osis Disease Active 5-20 00:00: 00 [facility] Herpes zoster without complicati on Herpes zoster without complicati on Disease Active 420 00:00: 00 [facility] Herpes zoster without complicati on Herpes zoster without complicati on Disease Active 4-20 00:00: 00 [facility] History of anxiety History of anxiety Disease Active 2- 00:00: 00 [facility] Former smoker Former smoker Disease Active 2-23 00:00: 00 [facility] Obesity (BMI 35.0-39.9 without comorbidit y) Obesity (BMI 35.0-39.9 without comorbidit y) Disease Active 8 00:00: 00 [facility] Dizziness Dizziness Disease Resolve d 6-08 00:00: 00 2023-06-22 00:00:00 2023-06-22 13:37:48 [facility] Left arm pain Left arm pain Disease Resolve d 2022-0 4-22 00:00: 00 2023-06-22 00:00:00 2023-06-22 13:37:44 [facility] Positive D dimer Positive D dimer Disease Resolve d 4-20 00:00: 00 2023-06-22 00:00:00 2023-06-22 13:37:41 [facility] BMI 32.0-32.9, adult BMI 32.0-32.9, adult Disease Resolve d 2-23 00:00: 00 2023-06-22 00:00:00 2023-06-22 13:37:36 [facility] Chest pain, atypical Chest pain, atypical Disease Resolve d 8-12 00:00: 00 2023-06-22 00:00:00 2023-06-22 13:37:19 [facility] Urinary tract infection without hematuria, site unspecifie d Urinary tract infection without hematuria, site unspecifie d Disease Resolve d 7-07 00:00: 00 2021-12-20 00:00:00 2021-12-20 18:50:56 [facility] Vaginal discharge Vaginal discharge Disease Resolve d 6-23 00:00: 00 2021-12-20 00:00:00 2021-12-20 18:50:53 [facility] Screen for STD (sexually transmitte d disease) Screen for STD (sexually transmitte d disease) Disease Resolve d 5-04 00:00: 00 2021-12-20 00:00:00 2021-12-20 18:51:33 [facility] Absence of menstruati on Absence of menstruati on Disease Resolve d 0 8-22 00:00: 00 2021-12-20 00:00:00 2021-12-20 18:50:57 [facility] Papanicola ou smear of cervix with low grade squamous intraepith elial lesion (LGSIL) Papanicola ou smear of cervix with low grade squamous intraepith elial lesion (LGSIL) Disease Resolve d 0 7-24 00:00: 00 2021-12-20 00:00:00 2021-12-20 18:51:31 [facility] Hospital discharge follow-up Hospital discharge follow-up Disease Resolve d 2021-0 4-20 00:00: 00 2021-06-10 00:00:00 2021-06-10 14:08:40 [facility] Normal labor Normal labor Disease Resolve d 2020-1 0-19 00:00: 00 2021-06-10 00:00:00 2021-06-10 14:08:45 [facility] (normal spontaneou s vaginal delivery) (normal spontaneou s vaginal delivery) Disease Resolve d 2020-1 0-19 00:00: 00 2021-06-10 00:00:00 2021-06-10 14:08:48 [facility] History of delivery History of delivery Disease Resolve d 2020-0 2-23 00:00: 00 2021-06-10 00:00:00 2021-06-10 14:08:34 [facility] History of premature rupture of membranes (PROM) in previous , currently in first trimester History of premature rupture of membranes (PROM) in previous , currently in first trimester Disease Resolve d 2020-0 2-23 00:00: 00 2021-06-10 00:00:00 2021-06-10 14:08:36 [facility] 39 weeks gestation of 39 weeks gestation of Disease Resolve d 2017-0 3-12 00:00: 00 2021-06-10 00:00:00 2021-06-10 14:08:19 [facility] Supervisio n of high risk in first trimester Supervisio n of high risk in first trimester Disease Resolve d 2017-0 1-03 00:00: 00 2021-06-10 00:00:00 2021-06-10 14:09:05 [facility] Multiparit y Multiparit y Disease Resolve d 2016-0 8-22 00:00: 00 2021-06-10 00:00:00 2021-06-10 14:08:43 [facility] Vaginal bleeding in , first trimester Vaginal bleeding in , first trimester Disease Resolve d 2-23 00:00: 00 2020-10-16 00:00:00 2020-10-16 14:42:58 [facility] Pain pelvic Pain pelvic Disease Resolve d 2-23 00:00: 00 2020-10-16 00:00:00 2020-10-16 14:42:42 [facility] Anemia, antepartum , third trimester Anemia, antepartum , third trimester Disease Resolve d 3-13 00:00: 00 2017-05-19 00:00:00 2017-05-19 23:13:46 [facility] Anxiety and depression Anxiety and depression Disease Active 3-13 00:00: 00 2017-05-19 00:00:00 2017-05-19 23:14:13 Overview: Formattin g of this note might be different from the original. History of same,obs for same postpartu m [facility] Normal spontaneou s vaginal delivery Normal spontaneou s vaginal delivery Disease Resolve d 3-13 00:00: 00 2017-05-19 00:00:00 2017-05-19 23:14:05 [facility] Itching Itching Disease Resolve d 3-13 00:00: 00 2017-05-19 00:00:00 2017-05-19 23:14:09 [facility] Labor and delivery indication for care or interventi on Labor and delivery indication for care or interventi on Disease Resolve d - 00:00: 00 2017-05-19 00:00:00 2017-05-19 23:14:17 [facility] Positive GBS test Positive GBS test Disease Resolve d 2-28 00:00: 00 2017-05-19 00:00:00 2017-05-19 23:13:37 [facility] Insufficie nt care in third trimester Insufficie nt care in third trimester Disease Resolve d 0 1-03 00:00: 00 2017-05-19 00:00:00 2017-05-19 23:14:01 [facility] Decreased movements in third trimester, single or unspecifie d fetus Decreased movements in third trimester, single or unspecifie d fetus Disease Resolve d 2-13 00:00: 00 2017-04-19 00:00:00 2017-04-19 07:49:49 [facility] Supervisio n of high risk , antepartum , first trimester Supervisio n of high risk , antepartum , first trimester Disease Resolve d 09-28 00:00: 00 2017-02-09 00:00:00 2017-02-09 11:18:25 [facility] Chlamydia trachomati s infection of lower genitourin danni sites Chlamydia trachomati s infection of lower genitourin danni sites Disease Resolve d 08-30 00:00: 00 2016-07-29 00:00:00 2016-07-29 16:09:38 [facility] Allergies, Adverse Reactions, Alerts Allergy Name Allergy Type Status Severity Reaction(s) Onset Date Inactive Date Treating Clinician Comments Source No Known Allergie s DA Active U 08-21 00:00: 00 [facility] No Known Allergie s DA Active U 2012-02 00:00: 00 [facility] NO KNOWN ALLERGIE S Drug Class Active [facility] Social History Social Habit Start Date Stop Date Quantity Comments Source [facility] ASSERTION Not [facility] History of Occupation [facility] Alcoholic beverage intake 2024-09-20 00:00:00 2024-09-20 00:00:00 Ex-drinker (finding) [facility] History of Social function 2024-09-10 00:00:00 2024-09-10 00:00:00 [facility] Cigarettes smoked current (pack per day) - Reported 2023-06-22 00:00:00 2023-06-22 00:00:00 [facility] Cigarette pack-years 2023-06-22 00:00:00 2023-06-22 00:00:00 [facility] Tobacco use and exposure 2023-06-22 00:00:00 2023-06-22 00:00:00 Smokeless tobacco non-user [facility] Tobacco Comment 2023-06-22 00:00:00 2023-06-22 00:00:00 smokes 2 x socially - [facility] Exposure to SARS-CoV-2 (event) 2022-02-05 00:00:00 2022-02-15 18:53:00 Not sure [facility] Education 2020-11-25 00:00:00 2020-11-25 00:00:00 13 [facility] Alcohol Comment 2020-04-01 00:00:00 2020-04-01 00:00:00 socially [facility] History SDOH Alcohol Frequency 2020-04-01 00:00:00 2020-04-01 00:00:00 99 [facility] History SDOH Alcohol Std Drinks 2020-04-01 00:00:00 2020-04-01 00:00:00 99 [facility] History SDOH Alcohol Binge 2020-04-01 00:00:00 2020-04-01 00:00:00 99 [facility] Alcohol intake 2019-08-19 00:00:00 2019-08-19 00:00:00 Current drinker of alcohol (finding) [facility] History of tobacco use 2016-08-28 00:00:00 Cigarette Smoker [facility] Sex assigned at 1985 00:00:00 1985 00:00:00 [facility] Smoking Status Start Date Stop Date Source Ex-smoker 2023-06-22 00:00:00 2023-06-22 [facility] Ordered Medication Name Filled Medication Name Start Date Stop Date Current Medication? Ordering Clinician Indication Dosage Frequency Signature (SIG) Comments Components Source methylPREDN ISolone (MEDROL, MARICHUY,) 4 mg tablets 09-23 00:00: 00 Yes [id number] 9100 Take by mouth SEE-INSTRU CTIONS. follow package directions [facility] cyclobenzap rine 10 mg tablet 09-23 00:00: 00 Yes [id number] 9100 10mg Take 1 tablet by mouth 3 times daily as needed for Muscle Spasms. [facility] SERTraline (ZOLOFT) 50 mg tablet 09-20 00:00: 00 Yes [id number] 50mg Take 1 tablet by mouth at bedtime. [facility] hydrOXYzine 50 mg tablet 09-20 00:00: 00 Yes [id number] 50mg Take 1 tablet by mouth 3 times daily as needed for Anxiety. [facility] naproxen 500 mg tablet 09-20 00:00: 00 Yes [id number] 9100 500mg Take 1 tablet by mouth 2 times daily as needed for Pain (scale 4-6). [facility] ergocalcife rol, vitamin d2, 1,250 mcg (50,000 unit) capsule 09-20 00:00: 00 Yes [id number] 02494O Take 1 capsule by mouth weekly. [facility] methylPREDN ISolone 4 mg tablets 09-20 00:00: 00 09-27 04:59 :00 Yes [id number] 9100 Take by mouth SEE-INSTRU CTIONS for 6 days. follow package directions [facility] metroNIDAZO LE 500 mg tablet 09-11 00:00: 00 Yes [id number] 500mg Take 1 tablet by mouth in the morning and 1 tablet in the evening. [facility] cyclobenzap rine 10 mg tablet 09-11 00:00: 00 Yes [id number] 10mg Take 1 tablet by mouth 3 times daily as needed for Muscle Spasms. [facility] ibuprofen 600 mg tablet 09-04 00:00: 00 Yes [id number] 600mg Take 1 tablet by mouth every 6 hours as needed for Pain (scale 4-6). [facility] hydrOXYzine 50 mg tablet 09-04 00:00: 00 09-20 00:00 :00 No [id number] 50mg Take 1 tablet by mouth at bedtime. [facility] bromphenira mine-pseudo ephedrine-D M (BROMFED DM) 2-30-10 mg/5 mL syrup 5- 00:00: 00 09-04 00:00 :00 No [id number] 5mL Take 5 mL by mouth 4 times daily as needed for Congestion /Allergies , Cold symptoms or Cough. [facility] azithromyci n 250 mg tablet 07-03 00:00: 00 07-09 04:59 :00 Yes [id number] Take 2 tablets by mouth daily for 1 day, THEN 1 tablet daily for 4 days. [facility] ergocalcife rol, vitamin d2, 1,250 mcg (50,000 unit) capsule 07-02 00:00: 09-04 00:00 :00 No [id number] 01216T Take 1 capsule by mouth weekly. [facility] tirzepatide , weight loss, (ZEPBOUND) 5 mg/0.5 mL subcutaneou s injection pen 06-25 00:00: 00 09-04 00:00 :00 No [id number] 5mg inject 5 mg under the skin weekly. [facility] albuterol sulfate HFA 90 mcg/actuati on aerosol inhaler 06-12 00:00: 09-04 00:00 :00 No [id number] 2{puff} Inhale 2 Puffs every 6 (six) hours as needed for Wheezing or Shortness of Breath. [facility] promethazin e-dextromet horphan 6.25-15 mg/5 mL syrup 06-12 00:00: 06-25 00:00 :00 No [id number] 5mL Take 5 mL by mouth 4 (four) times daily as needed for Cough. [facility] predniSONE 10 mg tablet 06-12 00:00: 06-18 04:59 :00 No [id number] 40mg Take 4 tablets by mouth in the morning for 5 days. [facility] ibuprofen 600 mg tablet 03-07 00:00: 00 09-04 00:00 :00 No [id number] 600mg Take 1 tablet by mouth every 6 (six) hours as needed for Pain (scale 4-6). [facility] chlorhexidi ne 0.12 % mouthwash 03-07 00:00: 00 06-25 00:00 :00 No [id number] 15mL Swish and spit out 15 mL in the morning and 15 mL in the evening. [facility] penicillin v potassium 500 mg tablet 03-07 00:00: 00 03-15 05:59 :00 No [id number] 500mg Take 1 tablet by mouth 4 (four) times daily for 7 days. [facility] ketorolac (TORADOL) injection 30 mg 2023-02 01:52: 00 01-26 01:55 :00 No [id number] 30mg 30 mg, Intramuscu lar, ONCE, 1 dose, On Nel 01/26/24 at 2000, Routine [facility] cefTRIAXone (ROCEPHIN) injection 1,000 mg 2023-02 01:25: 00 01-26 01:33 :00 No [id number] 1000mg 1,000 mg, Intramuscu lar, ONCE, 1 dose, On Nel 01/26/24 at 1930, [place], Reason for Anti-Infec tive: Documented Infection, Documented Infection Site: HEENT, Duration of Therapy: Other (see Comments) [facility] traMADoL 50 mg tablet 2023-02 00:00: 00 01-29 05:59 :00 No [id number] 50mg Take 1 tablet by mouth every 8 (eight) hours as needed for Pain (scale 7-10) for up to 3 days. Indication s: acute pain [facility] bromphenira mine-pseudo ephedrine-D M (BROMFED DM) 2-30-10 mg/5 mL syrup 2023-02 00:00: 00 02-02 05:59 :00 No [id number] 10mL Take 10 mL by mouth 4 (four) times daily as needed for Congestion /Allergies for up to 10 days. [facility] amoxicillin -clavulanat e (AUGMENTIN) 875-125 mg per tablet 2023-02 00:00: 00 01-30 05:59 :00 No [id number] 1{tbl} Take 1 tablet by mouth in the morning and 1 tablet in the evening. Do all this for 7 days. [facility] ibuprofen (IBU) tablet 800 mg 2023-02 16:00: 00 12-28 16:23 :00 No 800mg 800 mg, Oral, ONCE, 1 dose, On Nel 12/29/23 at 1000, [place] [facility] Nitrofurant oin&Nit. Macrocryst 100 mg capsule 2023-02 00:00: 00 06-25 00:00 :00 No [id number] 100mg Take 1 capsule by mouth in the morning and 1 capsule in the evening. [facility] ibuprofen 800 mg tablet 2023-02 00:00: 00 03-07 00:00 :00 No [id number] 100 800mg Take 1 tablet by mouth 3 (three) times daily as needed for Pain (scale 4-6). [facility] medroxyPROG ESTERone (PROVERA) 5 mg tablet 2023-02 00:00: 00 01-03 05:59 :00 No [id number] 100 5mg Take 1 tablet by mouth in the morning and 1 tablet at noon and 1 tablet in the evening. Do all this for 5 days. [facility] SERTraline (ZOLOFT) 50 mg tablet 2023-02 00:00: 00 09-04 00:00 :00 No [id number] 50mg Take 1 tablet by mouth at bedtime. [facility] traZODone 50 mg tablet 2023-02 00:00: 00 09-04 00:00 :00 No [id number] 50mg Take 1 tablet by mouth at bedtime. [facility] ergocalcife rol, vitamin d2, 1,250 mcg (50,000 unit) capsule 2023-02 00:00: 00 07-02 00:00 :00 No [id number] 72706S Take 1 capsule by mouth weekly. [facility] tirzepatide , weight loss, (ZEPBOUND) 2.5 mg/0.5 mL subcutaneou s injection pen [id number] 2023-02 00:00: 00 06-25 00:00 :00 No [id number] 2.5mg inject 2.5 mg under the skin weekly. [facility] predniSONE 20 mg tablet 2023-02 0 00:00: 00 11-13 04:59 :00 No [id number] 40mg Take 2 tablets by mouth in the morning for 5 days. [facility] polyethylen e glycol [id number] 17 gram/dose powder 11-02 00:00: 00 06-25 00:00 :00 No [id number] 17g Take 17 g by mouth 2 (two) times daily as needed for Constipati on. [facility] SERTraline (ZOLOFT) 50 mg tablet 11-02 00:00: 00 12-14 00:00 :00 No [id number] 50mg Take 1 tablet by mouth in the morning. [facility] traZODone 50 mg tablet 11-02 00:00: 00 12-14 00:00 :00 No [id number] 50mg Take 1 tablet by mouth at bedtime. [facility] norethindro ne 0.35 mg tablet 09-05 00:00: 00 06-25 00:00 :00 No [id number] 1{tbl} Take 1 tablet by mouth in the morning. [facility] norethindro ne 0.35 mg tablet 06-21 00:00: 00 09-05 00:00 :00 No [id number] 1{tbl} Take 1 tablet by mouth in the morning. [facility] busPIRone 10 mg tablet 02-15 19:02: 28 Yes 10mg Take 10 mg by mouth as needed. [facility] azithromyci n (ZITHROMAX Z-MARICHUY) 250 mg tablet 02-15 00:00: 00 06-21 00:00 :00 No [id number] Z pack as directed [facility] benzonatate 200 mg capsule 1-09 00:00: 00 02-26 05:59 :00 No [id number] 200mg Take 1 capsule by mouth 3 (three) times daily as needed for Cough for up to 10 days. [facility] albuterol 90 mcg/actuati on inhaler 1- 00:00: 00 02-26 05:59 :00 No [id number] 2{puff} Inhale 2 Puffs every 6 (six) hours as needed for Wheezing for up to 10 days. [facility] ampicillin 500 mg capsule 2021-02 2 00:00: 00 06-21 00:00 :00 No [id number] 500mg Take 1 capsule by mouth every 6 (six) hours. [facility] ampicillin 500 mg capsule 2021-02 00:00: 00 01-01 05:59 :00 No [id number] 500mg Take 1 capsule by mouth every 6 (six) hours for 10 days. [facility] norethindro ne 0.35 mg tablet 2021-02 00:00: 00 06-21 00:00 :00 No [id number] 1{tbl} Take 1 tablet by mouth in the morning. [facility] metroNIDAZO LE 500 mg tablet 2021-02 00:00: 00 12-26 05:59 :00 No [id number] 500mg Take 1 tablet by mouth in the morning and 1 tablet in the evening. Do all this for 7 days. [facility] ampicillin 500 mg capsule 08-21 00:00: 00 09-01 04:59 :00 No [id number] 500mg Take 1 capsule by mouth 4 (four) times daily for 10 days. [facility] citalopram 10 mg tablet 08-19 00:00: 00 06-21 00:00 :00 No [id number] 10mg Take 1 tablet by mouth in the morning. [facility] ibuprofen 600 mg tablet 07-20 00:00: 00 06-21 00:00 :00 No [id number] 600mg Take 1 tablet by mouth every 6 (six) hours as needed for Pain (scale 4-6). [facility] busPIRone 10 mg tablet 08 17:04: 42 06-21 00:00 :00 No 10mg Take 1 tablet by mouth as needed. [facility] vit 33-iron-fol ic-dha (SELECT-OB + DHA) 29 mg iron-1 mg -250 mg combo pack 08-27 00:00: 00 06-10 00:00 :00 No 1{packe t} Take 1 Packet by mouth daily. [facility] cyclobenzap rine 5 mg tablet 09-20 00:00: 00 04-01 00:00 :00 No [id number] 5mg Take 1 tablet by mouth 2 (two) times daily as needed for Muscle Spasms. Can cause drowsiness . [facility] gabapentin 100 mg capsule 09-18 00:00: 00 04-01 00:00 :00 No [id number] 100mg Take 1 capsule by mouth 3 (three) times daily as needed (nerve pain). [facility] Immunizations Ordered Immunization Name Filled Immunization Name Date Status Comments Source [facility] 2023-09-06 10:30:00 Completed [facility] 2023-06-22 06:45:00 Completed [facility] 2023-06-22 00:00:00 Completed [facility] 2021-08-17 00:00:00 Completed [facility] TD[facility] 2021-08-12 00:00:00 Completed [facility] TD[facility] 2021-08-04 00:00:00 Completed [facility] TD[facility] 2021-08-03 00:00:00 Completed [facility] TD[facility] 2021-08-03 00:00:00 Completed [facility] TD[facility] 2021-07-06 00:00:00 Completed [facility] TD[facility] 2021-06-12 00:00:00 Completed [facility] TD[facility] 2020-11-18 00:00:00 Completed [facility] TD[facility] 2020-09-18 00:00:00 Completed [facility] TD[facility] 2020-09-15 00:00:00 Completed [facility] TD[facility] 2020-09-15 00:00:00 Completed [facility] TD[facility] 2020-09-15 00:00:00 Completed [facility] TD[facility] 2020-09-15 00:00:00 Completed [facility] TD[facility] 2020-09-15 00:00:00 Completed [facility] TD[facility] 2020-09-15 00:00:00 Completed [facility] TD[facility] 2020-09-15 00:00:00 Completed [facility] TD[facility] 2020-09-15 00:00:00 Completed [facility] TDAP 2020-09-15 00:00:00 Completed [facility] TDAP 2020-09-15 00:00:00 Completed [facility] TD[facility] 2020-09-15 00:00:00 Completed [facility] TD[facility] 2020-09-15 00:00:00 Completed [facility] TDAP 2020-09-15 00:00:00 Completed [facility] TDAP 2020-09-15 00:00:00 Completed [facility] TD[facility] 2020-09-15 00:00:00 Completed [facility] TD[facility] 2019-10-01 00:00:00 Completed [facility] TD[facility] 2019-09-21 00:00:00 Completed [facility] TD[facility] 2019-08-21 00:00:00 Completed [facility] TD[facility] 2017-02-09 00:00:00 Completed [facility] TDAP 2017-02-09 00:00:00 Completed [facility] TDAP 2017-02-09 00:00:00 Completed [facility] TDAP 2017-02-09 00:00:00 Completed [facility] TDAP 2017-02-09 00:00:00 Completed [facility] TDAP 2017-02-09 00:00:00 Completed [facility] TDAP 2017-02-09 00:00:00 Completed [facility] TDAP 2017-02-09 00:00:00 Completed [facility] TDAP 2017-02-09 00:00:00 Completed [facility] TDAP 2017-02-09 00:00:00 Completed [facility] TDAP 2017-02-09 00:00:00 Completed [facility] TDAP 2017-02-09 00:00:00 Completed [facility] TDAP 2017-02-09 00:00:00 Completed [facility] TDAP 2017-02-09 00:00:00 Completed [facility] TDAP 2017-02-09 00:00:00 Completed [facility] TDAP 2007-02-07 00:00:00 Completed [facility] TDAP 2007-02-07 00:00:00 Completed [facility] TDAP 2007-02-07 00:00:00 Completed [facility] TDAP 2007-02-07 00:00:00 Completed [facility] TDAP 2007-02-07 00:00:00 Completed [facility] TDAP 2007-02-07 00:00:00 Completed [facility] TDAP 2007-02-07 00:00:00 Completed [facility] TDAP 2007-02-07 00:00:00 Completed [facility] TDAP 2007-02-07 00:00:00 Completed [facility] TDAP 2007-02-07 00:00:00 Completed [facility] TDAP 2007-02-07 00:00:00 Completed [facility] TDAP 2007-02-07 00:00:00 Completed [facility] TDAP 2007-02-07 00:00:00 Completed [facility] TDAP 2007-02-07 00:00:00 Completed [facility] Vital Signs Vital Name Observation Time Observation Value Comments S ource Systolic blood pressure 2024-09-29 14:49:00 103 mm[Hg] Myrtle o [facility] Diastolic blood pressure 2024-09-29 14:49:00 75 mm[Hg] Myrtle o [facility] Heart rate 2024-09-29 14:49:00 85 /[facility] 2024-09-29 14:49:00 36.78 Brigitte [facility] Respiratory rate 2024-09-29 14:49:00 18 /min [facility] Body weight 2024-09-29 14:49:00 87.408 [facility] 2024-09-29 14:49:00 36.41 kg/m2 [facility] Oxygen saturation in Arterial blood by Pulse oximetry 2024-09-29 14:49:00 97 /min [facility] Systolic blood pressure 2024-09-23 23:41:00 132 mm[Hg] [facility] Diastolic blood pressure 2024-09-23 23:41:00 68 mm[Hg] [facility] Heart rate 2024-09-23 23:41:00 112 /min [facility] Body temperature 2024-09-23 23:41:00 36.67 Brigitte [facility] Body height 2024-09-23 23:41:00 154.9 cm [facility] Body weight 2024-09-23 23:41:00 87.907 kg [facility] BMI 2024-09-23 23:41:00 36.62 kg/m2 [facility] Oxygen saturation in Arterial blood by Pulse oximetry 2024-09-23 23:41:00 98 /min [facility] Heart rate 2024-09-20 15:20:00 71 /min [facility] Body height 2024-09-20 15:20:00 154.9 cm [facility] Body weight 2024-09-20 15:20:00 88.089 kg [facility] BMI 2024-09-20 15:20:00 36.69 kg/m2 [facility] Oxygen saturation in Arterial blood by Pulse oximetry 2024-09-20 15:20:00 98 /min [facility] Systolic blood pressure 2024-09-20 15:20:00 106 mm[Hg] [facility] Diastolic blood pressure 2024-09-20 15:20:00 69 mm[Hg] [facility] Systolic blood pressure 2024-09-20 15:07:00 116 mm[Hg] [facility] Diastolic blood pressure 2024-09-20 15:07:00 85 mm[Hg] [facility] Heart rate 2024-09-20 15:07:00 77 /min [facility] Body temperature 2024-09-20 15:07:00 35.89 Brigitte [facility] Respiratory rate 2024-09-20 15:07:00 14 /min [facility] Body height 2024-09-20 15:07:00 154.9 cm [facility] Body weight 2024-09-20 15:07:00 87.771 kg [facility] BMI 2024-09-20 15:07:00 36.56 kg/m2 [facility] Oxygen saturation in Arterial blood by Pulse oximetry 2024-09-20 15:07:00 100 /min [facility] Systolic blood pressure 2024-09-11 23:51:24 117 mm[Hg] [facility] Diastolic blood pressure 2024-09-11 23:51:24 73 mm[Hg] [facility] Heart rate 2024-09-11 23:51:24 82 /min [facility] Body temperature 2024-09-11 23:51:24 37.33 Brigitte [facility] Respiratory rate 2024-09-11 23:51:24 18 /min [facility] Oxygen saturation in Arterial blood by Pulse oximetry 2024-09-11 23:51:24 94 /min [facility] Body height 2024-09-11 22:44:00 154.9 cm [facility] Body weight 2024-09-11 22:44:00 88.451 kg [facility] BMI 2024-09-11 22:44:00 36.84 kg/m2 [facility] Systolic blood pressure 2024-09-11 19:19:00 116 mm[Hg] [facility] Diastolic blood pressure 2024-09-11 19:19:00 79 mm[Hg] [facility] Heart rate 2024-09-11 19:19:00 92 /min [facility] Body temperature 2024-09-11 19:19:00 36.67 Brigitte [facility] Respiratory rate 2024-09-11 19:19:00 18 /min [facility] Body height 2024-09-11 19:19:00 154.9 cm [facility] Body weight 2024-09-11 19:19:00 88.542 kg [facility] BMI 2024-09-11 19:19:00 36.88 kg/m2 [facility] Oxygen saturation in Arterial blood by Pulse oximetry 2024-09-11 19:19:00 96 /min [facility] Systolic blood pressure 2024-09-10 18:05:00 119 mm[Hg] [facility] Diastolic blood pressure 2024-09-10 18:05:00 80 mm[Hg] [facility] Heart rate 2024-09-10 18:05:00 83 /min [facility] Body temperature 2024-09-10 18:05:00 36.78 Brigitte [facility] Respiratory rate 2024-09-10 18:05:00 18 /min [facility] Body height 2024-09-10 18:05:00 154.9 cm [facility] Body weight 2024-09-10 18:05:00 87.816 kg [facility] BMI 2024-09-10 18:05:00 36.58 kg/m2 [facility] Systolic blood pressure 2024-09-04 21:51:00 112 mm[Hg] [facility] Diastolic blood pressure 2024-09-04 21:51:00 80 mm[Hg] [facility] Heart rate 2024-09-04 21:51:00 93 /min [facility] Body temperature 2024-09-04 21:51:00 36.94 Brigitte [facility] Respiratory rate 2024-09-04 21:51:00 19 /min [facility] Body height 2024-09-04 21:51:00 154.9 cm [facility] Body weight 2024-09-04 21:51:00 87.176 kg [facility] BMI 2024-09-04 21:51:00 36.31 kg/m2 [facility] Oxygen saturation in Arterial blood by Pulse oximetry 2024-09-04 21:51:00 98 /min [facility] Systolic blood pressure 2024-07-03 19:55:00 103 mm[Hg] [facility] Diastolic blood pressure 2024-07-03 19:55:00 72 mm[Hg] [facility] Heart rate 2024-07-03 19:55:00 89 /min [facility] Body temperature 2024-07-03 19:55:00 37.44 Brigitte [facility] Respiratory rate 2024-07-03 19:55:00 19 /min [facility] Body height 2024-07-03 19:55:00 154.9 cm [facility] Body weight 2024-07-03 19:55:00 89.585 kg [facility] BMI 2024-07-03 19:55:00 37.32 kg/m2 [facility] Oxygen saturation in Arterial blood by Pulse oximetry 2024-07-03 19:55:00 98 /min [facility] Systolic blood pressure 2024-06-25 19:01:00 109 mm[Hg] [facility] Diastolic blood pressure 2024-06-25 19:01:00 76 mm[Hg] [facility] Heart rate 2024-06-25 19:01:00 94 /min [facility] Body height 2024-06-25 19:01:00 154.9 cm [facility] Body weight 2024-06-25 19:01:00 89.631 kg [facility] BMI 2024-06-25 19:01:00 37.34 kg/m2 [facility] Oxygen saturation in Arterial blood by Pulse oximetry 2024-06-25 19:01:00 98 /min [facility] Systolic blood pressure 2024-06-12 15:52:00 120 mm[Hg] [facility] Diastolic blood pressure 2024-06-12 15:52:00 79 mm[Hg] [facility] Heart rate 2024-06-12 15:52:00 92 /min [facility] Body temperature 2024-06-12 15:52:00 36.89 Brigitte [facility] Respiratory rate 2024-06-12 15:52:00 16 /min [facility] Body height 2024-06-12 15:52:00 154.9 cm per pt [facility] Body weight 2024-06-12 15:52:00 90.351 kg [facility] BMI 2024-06-12 15:52:00 37.64 kg/m2 [facility] Oxygen saturation in Arterial blood by Pulse oximetry 2024-06-12 15:52:00 97 /min [facility] Systolic blood pressure 2024-03-07 22:29:00 128 mm[Hg] [facility] Diastolic blood pressure 2024-03-07 22:29:00 86 mm[Hg] [facility] Heart rate 2024-03-07 22:29:00 89 /min [facility] Body temperature 2024-03-07 22:29:00 37.11 Brigitte [facility] Respiratory rate 2024-03-07 22:29:00 14 /min [facility] Body height 2024-03-07 22:29:00 154.9 cm [facility] Body weight 2024-03-07 22:29:00 90.992 kg [facility] BMI 2024-03-07 22:29:00 37.90 kg/m2 [facility] Oxygen saturation in Arterial blood by Pulse oximetry 2024-03-07 22:29:00 97 /min [facility] Systolic blood pressure 2024-01-27 01:08:00 116 mm[Hg] [facility] Diastolic blood pressure 2024-01-27 01:08:00 81 mm[Hg] [facility] Heart rate 2024-01-27 01:08:00 83 /min [facility] Body temperature 2024-01-27 01:08:00 36.33 Brigitte [facility] Respiratory rate 2024-01-27 01:08:00 14 /min [facility] Body height 2024-01-27 01:08:00 154.9 cm [facility] Body weight 2024-01-27 01:08:00 90.629 kg [facility] BMI 2024-01-27 01:08:00 37.75 kg/m2 [facility] Oxygen saturation in Arterial blood by Pulse oximetry 2024-01-27 01:08:00 98 /min [facility] Systolic blood pressure 2024-01-23 22:16:00 116 mm[Hg] [facility] Diastolic blood pressure 2024-01-23 22:16:00 72 mm[Hg] [facility] Heart rate 2024-01-23 22:16:00 105 /min [facility] Body temperature 2024-01-23 22:16:00 37.44 Brigitte [facility] Respiratory rate 2024-01-23 22:16:00 18 /min [facility] Body height 2024-01-23 22:16:00 154.9 cm [facility] Body weight 2024-01-23 22:16:00 89.359 kg [facility] BMI 2024-01-23 22:16:00 37.22 kg/m2 [facility] Oxygen saturation in Arterial blood by Pulse oximetry 2024-01-23 22:16:00 96 /min [facility] Systolic blood pressure 2024-01-19 16:36:00 104 mm[Hg] [facility] Diastolic blood pressure 2024-01-19 16:36:00 72 mm[Hg] [facility] Heart rate 2024-01-19 16:36:00 94 /min [facility] Body temperature 2024-01-19 16:36:00 37 Brigitte [facility] Respiratory rate 2024-01-19 16:36:00 18 /min [facility] Body height 2024-01-19 16:36:00 154.9 cm [facility] weight 2024-01-19 16:36:00 89.359 kg [facility] BMI 2024-01-19 16:36:00 37.22 kg/m2 [facility] Systolic blood pressure 2023-12-29 17:50:00 108 mm[Hg] [facility] Diastolic blood pressure 2023-12-29 17:50:00 83 mm[Hg] [facility] Heart rate 2023-12-29 17:50:00 80 /min [facility] Body temperature 2023-12-29 17:50:00 36.61 Brigitte [facility] Respiratory rate 2023-12-29 17:50:00 16 /min [facility] Oxygen saturation in Arterial blood by Pulse oximetry 2023-12-29 17:50:00 98 /min [facility] Body height 2023-12-29 15:08:00 154.9 cm [facility] Body weight 2023-12-29 15:08:00 89.359 kg [facility] BMI 2023-12-29 15:08:00 37.22 kg/m2 [facility] Systolic blood pressure 2023-12-15 21:55:00 93 mm[Hg] [facility] Diastolic blood pressure 2023-12-15 21:55:00 60 mm[Hg] [facility] Heart rate 2023-12-15 21:55:00 100 /min [facility] Respiratory rate 2023-12-15 21:55:00 18 /min [facility] Body height 2023-12-15 21:55:00 154.9 cm [facility] Body weight 2023-12-15 21:55:00 89.676 kg [facility] BMI 2023-12-15 21:55:00 37.36 kg/m2 [facility] Oxygen saturation in Arterial blood by Pulse oximetry 2023-12-15 21:55:00 96 /min [facility] Systolic blood pressure 2023-11-08 15:48:00 112 mm[Hg] [facility] Diastolic blood pressure 2023-11-08 15:48:00 75 mm[Hg] [facility] Heart rate 2023-11-08 15:48:00 95 /min [facility] Body temperature 2023-11-08 15:48:00 36.89 Brigitte [facility] Respiratory rate 2023-11-08 15:48:00 20 /min [facility] Body height 2023-11-08 15:48:00 154.9 cm [facility] Body weight 2023-11-08 15:48:00 89.495 kg [facility] BMI 2023-11-08 15:48:00 37.28 kg/m2 [facility] Oxygen saturation in Arterial blood by Pulse oximetry 2023-11-08 15:48:00 96 /min [facility] Systolic blood pressure 2023-11-03 20:19:00 118 mm[Hg] [facility] Diastolic blood pressure 2023-11-03 20:19:00 77 mm[Hg] [facility] Heart rate 2023-11-03 20:19:00 113 /min [facility]ive [facility] Body height 2023-11-03 20:19:00 154.9 cm [facility] Body weight 2023-11-03 20:19:00 89.585 kg [facility] BMI 2023-11-03 20:19:00 37.32 kg/m2 [facility] Oxygen saturation in Arterial blood by Pulse oximetry 2023-11-03 20:19:00 97 /min [facility] Systolic blood pressure 2023-09-06 15:20:00 125 mm[Hg] [facility] Diastolic blood pressure 2023-09-06 15:20:00 80 mm[Hg] [facility] Heart rate 2023-09-06 15:20:00 93 /min [facility] Body temperature 2023-09-06 15:20:00 36.72 Brigitte [facility] Body height 2023-09-06 15:20:00 154.9 cm [facility] Body weight 2023-09-06 15:20:00 87.998 kg [facility] BMI 2023-09-06 15:20:00 36.66 kg/m2 [facility] Systolic blood pressure 2023-06-22 12:10:00 120 mm[Hg] [facility] Diastolic blood pressure 2023-06-22 12:10:00 85 mm[Hg] [facility] Heart rate 2023-06-22 12:10:00 89 /min [facility] Body temperature 2023-06-22 12:10:00 36.5 Brigitte [facility] Respiratory rate 2023-06-22 12:10:00 29 /min [facility] Body height 2023-06-22 12:10:00 154.9 cm [facility] Body weight 2023-06-22 12:10:00 86.183 kg [facility] BMI 2023-06-22 12:10:00 35.90 kg/m2 [facility] Systolic blood pressure 2022-02-16 01:01:00 124 mm[Hg] [facility] Diastolic blood pressure 2022-02-16 01:01:00 87 mm[Hg] [facility] Heart rate 2022-02-16 01:01:00 94 /min [facility] Body temperature 2022-02-16 01:01:00 37.33 Brigitte [facility] Respiratory rate 2022-02-16 01:01:00 17 /min [facility] Body height 2022-02-16 01:01:00 154.9 cm [facility] Body weight 2022-02-16 01:01:00 82.781 kg [facility] BMI 2022-02-16 01:01:00 34.48 kg/m2 [facility] Oxygen saturation in Arterial blood by Pulse oximetry 2022-02-16 01:01:00 100 /min [facility] Systolic blood pressure 2022-01-08 19:57:00 123 mm[Hg] [facility] Diastolic blood pressure 2022-01-08 19:57:00 78 mm[Hg] [facility] Heart rate 2022-01-08 19:57:00 103 /min [facility] Body temperature 2022-01-08 19:57:00 36 Brigitte [facility] Respiratory rate 2022-01-08 19:57:00 18 /min [facility] Body height 2022-01-08 19:57:00 154.9 cm [facility] Body weight 2022-01-08 19:57:00 82.056 kg [facility] BMI 2022-01-08 19:57:00 34.18 kg/m2 [facility] Systolic blood pressure 2021-12-18 20:33:00 110 mm[Hg] Myrtle o [facility] Diastolic blood pressure 2021-12-18 20:33:00 70 mm[Hg] Myrtle o [facility] Heart rate 2021-12-18 20:33:00 96 /min [facility] Body temperature 2021-12-18 20:33:00 36.56 Brigitte [facility] Respiratory rate 2021-12-18 20:33:00 17 /min [facility] Body height 2021-12-18 20:33:00 154.9 cm [facility] Body weight 2021-12-18 20:33:00 79.742 kg [facility] BMI 2021-12-18 20:33:00 33.22 kg/m2 [facility] Procedures Procedure Date / Time Performed Performing Clinician Source POCUS DVT US 2024-09-11 23:10:10 [facility] VW 2024-07-03 20:25:32 Sharon Gaviria [facility] POCT MOLECULAR STREP 2024-07-03 20:23:00 Unknown, Atte mike [facility] COMP. METABOLIC PANEL (81723) 2024-06-27 16:18:00 Tyrese Baca [facility] CBC WITH DIFF 2024-06-27 16:18:00 [facility] PELVIS COMPLETE WITH TRANSVAGINAL 2024-06-14 16:48:34 Zeinab Villalobos [facility] POCT TEST 2024-03-07 22:48:00 Yolanda Gallegos [facility] POCT SARS-COV-2 ANTIGEN (BINAX NOW) 2024-03-07 22:48:00 Khanh Gallegos [facility] POCT MOLECULAR FLU 2024-03-07 22:39:00 Aashish Presley [facility] POCT MOLECULAR STREP 2024-03-07 22:35:00 Mookie Presley [facility] POCT MOLECULAR FLU 2024-01-23 22:16:00 [facility] 2024-01-23 22:13:00 Jared Collado [facility] CBC WITH DIFF 2023-12-29 16:20:00 Naseem Patterson [facility] URINALYSIS 2023-12-29 16:20:00 Naseem Patterson [facility] POCT TEST 2023-12-29 16:20:00 Naseem Patterson [facility] POCT MOLECULAR STREP 2023-11-08 15:52:00 Unknown, Atte mike [facility] POCT TEST 2023-06-22 00:00:00 July Rice [facility] DISCLOSURE AND CONSENT, MEDICAL AND SURGICAL PROCEDURES 2022-01-08 06:01:00 Doctor Unassigned, [place] [facility] HCV ANTIBODY 2021-12-18 21:53:00 Deja Álvarez [facility] URINE CULTURE 2021-12-18 21:53:00 Deja Álvarez [facility] HIV 1/2 AG-AB WITH REFLEX 2021-12-18 21:53:00 Deja Álvarez [facility] PAP SMEAR-LIQUID BASED-CP 2021-12-18 21:53:00 Deja Álvarez [facility] GALV ONLY - SYPHILIS IGG/IGM 2021-12-18 21:53:00 Deja Álvarez [facility] URINE CULTURE 2021-12-18 21:53:00 Deja Álvarez [facility] GC & CHLAMYDIA AMPLIFIED ASSAY 2021-12-18 21:53:00 Deja Álvarez [facility] HIGH RISK HPV-THIN PREP 2021-12-18 21:53:00 Deja Álvarez [facility] TRICHOMONAS AMPLIFIED ASSAY 2021-12-18 21:53:00 Deja Álvarez [facility] POCT TEST 2021-12-18 00:00:00 Nidhi Álvarez [facility] POCT URINALYSIS W/O SPECIFIC GRAVITY 2021-12-18 00:00:00 Deja Álvarez [facility] NOTICE OF PRIVACY PRACTICES 2020-11-25 18:05:51 Doctor Unassigned, [place] [facility] CONSENT/REFUSAL FOR DIAGNOSIS AND TREATMENT 2020-11-25 18:05:16 Doctor Unassigned, [place] [facility] Encounters Start Date/Time End Date/Time Encounter Type Admission Type Attending [facility] Care Department Encounter ID Source 2020-12-07 15:42:49 Emergency [facility] [id number] [facility] 2020-12-07 01:14:36 Emergency [facility] [id number] [facility] 2020-12-05 06:56:18 Emergency [facility] [id number] [facility] 2020-12-05 06:14:29 Emergency [facility] [id number] [facility] 2024-09-29 09:30:00 2024-09-29 09:50:00 Nurse Visit R Anastasia [facility] Unknown, Attending ED [facility] 1.840.114 350.1.13.10 4.2.7.2.686 [id number] [facility] 2024-09-25 15:30:00 2024-09-25 15:30:00 Outpatient R SHARON GAVIRIA [facility] [id number] [facility] 2024-09-23 18:40:00 2024-09-23 19:04:06 Urgent Care R GERTRUDE VALVERDE ED [facility] 1..840.114 350.1.13.10 4.2.7.2.686 [id number] [facility] 2024-09-21 08:30:00 2024-09-21 08:30:00 Outpatient JARED DOUGLAS [facility] [id number] [facility] 2024-09-20 11:00:00 2024-09-20 11:22:44 Legal Instruments Examiner Visit R BERTHA [facility]AC[facility]SY [facility] 1.284.114 350.1.13.10 4.2.7.2.686 [id number] [facility] 2024-09-20 10:00:00 2024-09-20 10:48:19 [facility] 1.840.114 350.1.13.10 4.2.7.2.686 [id number] [facility] 2024-09-20 09:40:00 2024-09-20 10:23:26 Nurse Visit R DANIELLERon VICKIE [facility] 1.284.114 350.1.13.10 4.2.7.2.686 [id number] [facility] 2024-09-12 10:00:00 2024-09-12 10:00:00 Outpatient JARED DOUGLAS [facility] [id number] [facility] 2024-09-11 17:46:00 2024-09-11 18:56:00 Emergency X Jag Magana [facility] 1.284.114 350.1.13.10 4.2.7.2.686 [id number] [facility] 2024-09-11 14:20:00 2024-09-11 14:34:34 Urgent Care R Paris Matthew ED [facility] 1.2840.114 350.1.13.10 4.2.7.2.686 [id number] [facility] 2024-09-11 00:00:00 2024-09-11 12:32:49 Case Management Katarina sPearlZeinab [facility] 1.2840.114 350.1.13.10 4.2.7.2.686 [id number] [facility] 2024-09-10 13:30:00 2024-09-10 13:43:54 Legal Instruments Examiner Visit R 2, Adc Lab Pearl Lloydsol 2, Adc Lab [facility] 1.84.114 350.1.13.10 4.2.7.2.686 [id number] [facility] 2024-09-10 13:00:00 2024-09-10 13:17:39 Office Visit R Katarina sPearlZeinab [facility] 1.2840.114 350.1.13.10 4.2.7.2.686 [id number] [facility] 2024-09-10 09:00:00 2024-09-10 09:00:00 Outpatient R KAYLAH-VANESA S, ZEINAB ADRIAN-VANESA S, ZEINAB [facility] [id number] [facility] 2024-09-04 16:45:00 2024-09-04 17:20:10 Urgent Care R Khanh Gallegos Unknown, Attending [facility] 1.2.840.114 350.1.13.10 4.2.7.2.686 [id number] [facility] 2024-07-02 00:00:00 2024-08-04 18:26:38 Patient Secure Tyrese Ospina [facility] 1.2840.114 350.1.13.10 4.2.7.2.686 [id number] [facility] 2024-06-26 00:00:00 2024-07-28 18:22:47 Patient Secure [facility] 1.2840.114 350.1.13.10 4.2.7.2.686 [id number] [facility] 2024-06-27 00:00:00 2024-07-28 18:18:41 Patient Secure Msg Baca [facility] 1.2840.114 350.1.13.10 4.2.7.2.686 [id number] [facility] 2024-07-12 09:30:00 2024-07-12 09:30:00 Out[facility] [id number] [facility] 2024-07-03 15:17:43 2024-07-03 23:59:00 Hospital Encounter Jocelyn Gaviria [facility] 1.2840.114 350.1.13.10 4.2.7.2.686 [id number] [facility] 2024-07-03 14:40:00 2024-07-03 15:49:19 [facility] 1.2840.114 350.1.13.10 4.2.7.2.686 [id number] [facility] 2024-07-03 15:40:00 2024-07-03 15:40:00 Outpatient R PAOLA REHMAN FAKEHA [facility] [id number] [facility] 2024-06-27 11:45:00 2024-06-27 11:19:26 Legal Instruments Examiner Visit B[facility] 1.2840.114 350.1.13.10 4.2.7.2.686 [id number] [facility] 2024-06-20 00:00:00 2024-06-25 16:24:03 Patient Secure Mschino Baca [facility] 1.2840.114 350.1.13.10 4.2.7.2.686 [id number] [facility] 2024-06-25 14:00:00 2024-06-25 14:36:29 Office [facility] 1.2840.114 350.1.13.10 4.2.7.2.686 [id number] [facility] 2024-06-25 00:00:00 2024-06-25 14:10:36 Refill Phuong [facility] EM[facility]IAN[facility] 1.2.840.114 350.1.13.10 4.2.7.2.686 [id number] [facility] 2024-06-14 11:08:34 2024-06-14 23:59:00 Outpatient R KATARINA Nunez, ZEINAB KAYLAH-VANESA S, ZEINAB [facility] [id number] [facility] 2024-06-14 11:08:34 2024-06-14 23:59:00 Hospital Encounter R KATARINA S, ZEINAB KAYLAH-VANESA S, ZEINAB [facility] 1.2.840.114 350.1.13.10 4.2.7.2.686 [id number] [facility] 2024-06-12 10:40:00 2024-06-12 11:24:44 Outpatient R DELMY VAZQUEZ [facility] [id number] [facility] 2024-06-12 10:40:00 2024-06-12 11:24:44 Urgent Care Delmy Vazquez Unknown, Attending ED [facility] 1.840.114 350.1.13.10 4.2.7.2.686 [id number] [facility] 2020-11-24 00:00:00 2024-03-24 02:52:50 Orders Only Nora Sanchez [facility] MAT[facility]NAL & [facility] 1..840.114 350.1.13.10 4.2.7.2.686 [id number] [facility] 2024-03-19 16:00:00 2024-03-19 16:00:00 Outpatient R TYRESE BACA [facility] [id number] [facility] 2024-03-14 14:30:00 2024-03-14 14:30:00 Outpatient R JARED COLLADO [facility] [id number] [facility] 2024-03-07 16:20:00 2024-03-07 17:16:43 Outpatient R PAMELA PRESLEY [facility] [id number] [facility] 2024-03-07 16:20:00 2024-03-07 17:16:43 Urgent Care FernandezPamela, Attending [facility] 1..840.114 350.1.13.10 4.2.7.2.686 [id number] [facility] 2024 19:00:00 2024 19:35:31 Outpatient R LAURA LOWE [facility] [id number] [facility] 2024 19:00:00 2024 19:35:31 Urgent Care Laura Lowe Unknown, Attending [facility] 1.840.114 350.1.13.10 4.2.7.2.686 [id number] [facility] 2024-01-25 00:00:00 2024-01-25 00:00:00 Outpatient R ADRIAN-VANESA S, ZEINAB ADRIAN-VANESA S, ZEINAB [facility] [id number] [facility] 2024-01-23 16:45:00 2024-01-23 17:00:00 Legal Instruments Examiner Visit Lab, Ang - Jared Brito Lab, Ang - Db [facility] 1..840.114 350.1.13.10 4.2.7.2.686 [id number] [facility] 2024-01-23 16:00:00 2024-01-23 16:43:00 Outpatient R JARED COLLADO [facility] [id number] [facility] 2024-01-23 16:00:00 2024-01-23 16:43:00 Office Visit Jared Collado [facility] 1..840.114 350.1.13.10 4.2.7.2.686 [id number] [facility] 2024-01-23 13:00:00 2024-01-23 13:00:00 Outpatient R [facility] [id number] [facility] 2023-12-16 00:00:00 2024-01-21 18:22:36 Patient Secure Msg Doctor Unassigned, [place] Doctor Unassigned, [place] [facility] 1.840.114 350.1.13.10 4.2.7.2.686 [id number] [facility] 2024-01-19 10:30:00 2024-01-19 11:06:19 Outpatient R ZEINAB LLOYD MARISOL [facility] [id number] [facility] 2024-01-19 10:30:00 2024-01-19 11:06:19 Office Visit Zeinab Lloyd ED [facility] 1.2840.114 350.1.13.10 4.2.7.2.686 [id number] [facility] 2023-12-29 09:10:00 2023-12-29 11:53:00 Emergency X NASEEM PATTERSON ERICCA [facility] [id number] [facility] 2023-12-29 09:10:00 2023-12-29 11:53:00 Emergency Naseem Patterson [facility] 1.2.840.114 350.1.13.10 4.2.7.2.686 [id number] [facility] 2023-12-19 00:00:00 2023-12-19 09:42:25 Patient Secure Msg Doctor Unassigned, [place] Doctor Unassigned, [place] [facility] 1.2.840.114 350.1.13.10 4.2.7.2.686 [id number] [facility] 2023-12-15 16:45:00 2023-12-15 17:00:00 Legal Instruments Examiner Visit Lab, Ang Tyrese Blandon Lab, Ang - Damon [facility] 1..840.114 350.1.13.10 4.2.7.2.686 [id number] [facility] 2023-12-15 16:45:00 2023-12-15 16:45:00 Outpatient R TYRESE BACA [facility] [id number] [facility] 2023-12-15 16:00:00 2023-12-15 16:30:00 Office Visit PhuongTyrese [facility] 1..840.114 350.1.13.10 4.2.7.2.686 [id number] [facility] 2023-12-13 16:30:00 2023-12-13 16:30:00 Outpatient R PHUONG TYRESE [facility] [id number] [facility] 2023-12-07 09:30:00 2023-12-07 09:30:00 Outpatient R [facility] [id number] [facility] 2023-11-08 00:00:00 2023-11-09 09:33:55 Patient Secure Msg [facility] 1..840.114 350.1.13.10 4.2.7.2.686 [id number] [facility] 2023-11-08 10:20:00 2023-11-08 10:40:00 Urgent Care Vickie Villalobos Unknown, Attending [facility] 1..840.114 350.1.13.10 4.2.7.2.686 [id number] [facility] 2023-11-08 10:20:00 2023-11-08 10:20:00 Outpatient R ALPHONSOLULAVICKIE [facility] [id number] [facility] 2023-11-04 11:00:00 2023-11-04 11:15:00 Legal Instruments Examiner Visit Lab, Tyrese Mckinnon Lab, Ang - Damon [facility] 1.2.840.114 350.1.13.10 4.2.7.2.686 [id number] [facility] 2023-11-04 11:00:00 2023-11-04 11:00:00 Outpatient R TYRESE BACA [facility] [id number] [facility] 2023-11-03 15:30:00 2023-11-03 15:54:44 Outpatient R TYRESE BACA [facility] [id number] [facility] 2023-11-03 15:30:00 2023-11-03 15:54:44 [facility] 1.840.114 350.1.13.10 4.2.7.2.686 [id number] [facility] 2023-11-01 16:15:45 2023-11-01 16:15:45 Outpatient [facility] 24 Colton Persaud 2023-10-28 13:31:52 2023-10-28 13:31:52 Outpatient [facility] [place] [id number] Colton Salcedo Hung 2023-09-06 10:30:00 2023-09-06 11:01:05 Outpatient R GUERRERO STEWART [facility] [id number] [facility] 2023-09-06 10:30:00 2023-09-06 11:01:05 Office Visit Provider, SrinivasaRmchp Guerrero Bedoya [facility] MATERNAL & CHILD [facility] ..840.114 350.1.13.10 4.2.7.2.686 [id number] [facility] 2023-06-22 00:00:00 2023-06-22 08:13:41 Letter (Out) Analisa Suarez [facility] MATERNAL & CHILD [facility] 1..840.114 350.1.13.10 4.2.7.2.686 [id number] [facility] 2023-06-22 06:45:00 2023-06-22 08:09:35 Outpatient R JULY RICE [facility] [id number] [facility] 2023-06-22 06:45:00 2023-06-22 08:09:35 Office Visit Provider, Drake-Analisa Sen Candice [facility] MATERNAL & CHILD [facility] 1..840.114 350.1.13.10 4.2.7.2.686 [id number] [facility] 2023-03-21 13:20:00 2023-03-21 13:20:00 Outpatient R [facility] [id number] [facility] 2022-10-26 17:46:44 2022-10-26 17:46:44 Outpatient [facility] [place] [id number] Colton Persaud 2022-09-01 00:00:00 2022-09-01 00:00:00 Telephone Deja Strong 1..840.114 350.1.13.10 4.2.7.2.686 [id number] [facility] 2022-04-16 14:00:00 2022-04-16 14:00:00 Outpatient TYRESE TURNER [facility] [id number] [facility] 2022-03-31 15:30:00 2022-03-31 15:30:00 Outpatient JARED DOUGLAS [facility] [id number] [facility] 2022-03-23 10:30:00 2022-03-23 10:30:00 Outpatient JARED DOUGLAS [facility] [id number] [facility] 2022-03-22 09:30:00 2022-03-22 09:30:00 Outpatient JARED DOUGLAS [facility] [id number] [facility] 2022-02-15 18:40:00 2022-02-15 19:00:00 Urgent Care Laura Lowe Unknown, Attending [facility] 1..114 350.1.13.10 4.2.7.2.686 [id number] [facility] 2022-02-15 18:40:00 2022-02-15 18:40:00 Outpatient R LAURA LOWE [facility] [id number] [facility] 2022-01-08 13:30:00 2022-01-08 15:04:40 Outpatient R DEE HUFFMAN [facility] [id number] [facility] 2022-01-08 13:30:00 2022-01-08 15:04:40 Office Visit Pgy3 Dee Huffman [facility] 1.0.114 350.1.13.10 4.2.7.2.686 [id number] [facility] 2022-01-08 00:00:00 2022-01-08 00:00:00 Orders Only Doctor Unassigned, [place] [facility] 1.0.114 350.1.13.10 4.2.7.2.686 [id number] [facility] 2022-01-07 00:00:00 2022-01-07 00:00:00 Case Management Deja Álvarez [facility] & CHILD [facility] 1.840.114 350.1.13.10 4.2.7.2.686 [id number] [facility] 2022-01-07 00:00:00 2022-01-07 00:00:00 Telephone Deja Álvarez [facility] & CHILD [facility] 1.840.114 350.1.13.10 4.2.7.2.686 [id number] [facility] 2022-01-05 00:00:00 2022-01-05 00:00:00 Refill Deja Álvarez [facility] INST[facility]ER [facility] & CHILD [facility] 1.2.840.114 350.1.13.10 4.2.7.2.686 [id number] [facility] 2021-12-21 00:00:00 2021-12-21 00:00:00 Case Management Deja Álvarez [facility] INSTALLER [facility] CHILD [facility] 1.2.840.114 350.1.13.10 4.2.7.2.686 [id number] [facility] 2021-12-18 14:15:00 2021-12-18 15:30:31 Outpatient DEJA YOUSIF [facility] [id number] [facility] 2021-12-18 14:15:00 2021-12-18 15:30:31 Office Visit Provider, [facility] Deja Álvarez [facility] IN[facility]ER [facility] & CHILD [facility] 1..840.114 350.1.13.10 4.2.7.2.686 [id number] [facility] 2021-09-28 11:00:00 2021-09-28 11:00:00 Outpatient JARED DOUGLAS [facility] [id number] [facility] 2021-09-24 13:45:00 2021-09-24 13:45:00 Outpatient KHANH PATEL [facility] [id number] [facility] 2021-09-18 09:30:00 2021-09-18 09:30:00 Outpatient TYRESE TURNER [facility] [id number] [facility] 2021-09-01 15:30:00 2021-09-01 15:30:00 Outpatient JARED DOUGLAS [facility] [id number] [facility] 2021-08-28 00:00:00 2021-08-28 00:00:00 Patient Secure MsTyrese Boyd [facility] [id number] [facility] 2021-08-24 00:00:00 2021-08-24 00:00:00 Abstract EldaJared lemus [facility] 1.114 [id number] [id number] [id number] [facility] 2021-08-21 00:00:00 2021-08-21 00:00:00 Telephone Analisa Suarez [facility] CHILD [facility] 1.114 [id number] [id number] [id number] [facility] 2021-08-19 16:00:00 2021-08-19 16:00:00 Outpatient R TOBIAS JARED [facility] [id number] [facility] 2021-08-19 00:00:00 2021-08-19 00:00:00 Refill EldaJared lemus [facility] 1.114 [id number] [id number] [id number] [facility] 2021-08-19 00:00:00 2021-08-19 00:00:00 Refill Dany Carias [facility] CH[facility] 1.114 [id number] [id number] [id number] [facility] 2021-08-19 00:00:00 2021-08-19 00:00:00 Refill Doctor Unassigned, [place] [facility] [facility] 1.114 350.1.13.10 4.2.7.2.686 [id number] [facility] 2021-08-17 00:00:00 2021-08-17 00:00:00 Patient Secure Dany Anton [facility] INSTALLER [facility] CHILD [facility] 1.840.114 350.1.13.10 4.2.7.2.686 [id number] [facility] 2021-08-13 14:15:00 2021-08-13 16:02:04 Outpatient R FELICITAS CARIASHECTOR [facility] [id number] [facility] 2021-08-13 14:15:00 2021-08-13 16:02:04 Office Visit Liliana Cariasmarybeth [facility]TERTOP INSTALLER [facility] & CHILD [facility] 1.840.114 350.1.13.10 4.2.7.2.686 [id number] [facility] 2021-08-13 14:15:00 2021-08-13 14:15:00 Outpatient R LILIANA CARIASMARYBETH [facility] [id number] [facility] 2021-08-12 00:00:00 2021-08-12 00:00:00 Patient Secure Dany Anton [facility] GR[facility] COUNTERTOP INSTALLER [facility] & CHILD [facility] 1..840.114 350.1.13.10 4.2.7.2.686 [id number] [facility] 2021-08-07 16:00:00 2021-08-07 16:00:00 Outpatient R JARED COLLADO [facility] [id number] [facility] 2021-08-04 00:00:00 2021-08-04 00:00:00 Telephone Niall Cariasmariah [facility] INSTALLER [facility] & CHILD [facility] 1..840.114 350.1.13.10 4.2.7.2.686 [id number] [facility] 2021-08-04 00:00:00 2021-08-04 00:00:00 Patient Secure Jared Collado [facility] 1.2.840.114 350.1.13.10 4.2.7.2.686 [id number] [facility] 2021-08-04 00:00:00 2021-08-04 00:00:00 Patient Secure g Dany Carias [facility]TERTOP INSTALLER [facility] MATERNAL & CHILD [facility] 1.2.840.114 350.1.13.10 4.2.7.2.686 [id number] [facility] 2021-08-03 00:00:00 2021-08-03 00:00:00 Telephone Dany Carias [facility] INSTALLER [facility] CHILD [facility] 1.2.840.114 350.1.13.10 4.2.7.2.686 [id number] [facility] 2021-08-03 00:00:00 2021-08-03 00:00:00 Patient Secure g Dany Carias [facility] INSTALLER [facility] CHILD [facility] 1.2.840.114 350.1.13.10 4.2.7.2.686 [id number] 107 [id number] [facility] 2021-08-03 00:00:00 2021-08-03 00:00:00 Patient Secure g Dany Carias [facility] INSTALLER [facility] CHILD [facility] 1.2.840.114 350.1.13.10 4.2.7.2.686 [id number] [facility] 2021-07-31 11:30:00 2021-07-31 11:30:00 Outpatient R ELDAMariahJARED [facility] [id number] [facility] 2021-07-30 15:45:00 2021-07-30 16:31:25 Outpatient R DANY CARIAS [facility] [id number] [facility] 2021-07-30 15:45:00 2021-07-30 16:31:25 Office Visit Dany Carias R [facility] GR[facility] COUNTER[employer] INSTALLER [facility] MATERNAL & CHILD HEALTH [facility] 1.2.840.114 350.1.13.10 4.2.7.2.686 [id number] [facility] 2021-07-29 13:30:00 2021-07-29 13:30:00 Outpatient R ELDAJARED Lemus [facility] [id number] [facility] 2021-07-29 00:00:00 2021-07-29 00:00:00 Patient Secure Msg Doctor Unassigned, [place] [facility] 1.2.840.114 350.1.13.10 4.2.7.2.686 [id number] [id number] [facility] 2021-07-29 00:00:00 2021-07-29 00:00:00 Patient Secure Msg Jared Collado [facility] 1.2.840.114 350.1.13.10 4.2.7.2.686 [id number] [id number] [facility] 2021-07-28 16:30:00 2021-07-28 17:03:47 Outpatient R RAMÓN HUDSON [facility] [id number] [facility] 2021-07-28 16:30:00 2021-07-28 17:03:47 Office Visit Ramón Hudson [facility] OFF[facility] BUILD[facility] 1.2.840.114 350.1.13.10 4.2.7.2.686 [id number] [id number] [facility] 2021-07-28 16:45:00 2021-07-28 17:00:00 Legal Instruments Examiner Visit Pob, Adc Lab Main Ramón Hudson [facility] PROFESSIO NAL BUILD[facility] 1.840.114 350.1.13.10 4.2.7.2.686 [id number] [facility] 2021-07-28 16:45:00 2021-07-28 16:45:00 Outpatient Jocelyn HUDSON, RAMÓN [facility] [id number] [facility] 2021-07-28 00:00:00 2021-07-28 00:00:00 Telephone Shanita Simon [facility] COUNTER[employer] INSTALLER [facility] MATERNAL & CHILD HEALTH [facility] 1.840.114 350.1.13.10 4.2.7.2.686 [id number] [facility] 2021-07-28 00:00:00 2021-07-28 00:00:00 Orders Only Doctor Unassigned, [place] [facility] 1.84.114 350.1.13.10 4.2.7.2.686 [id number] [facility] 2021-07-25 00:00:00 2021-07-25 00:00:00 Nurse Triage Janae Rubio [facility] 1.84.114 350.1.13.10 4.2.7.2.686 [id number] [facility] 2021-07-22 14:30:00 2021-07-22 14:30:00 Outpatient JARED DOUGLAS [facility] [id number] [facility] 2021-07-21 00:00:00 2021-07-21 00:00:00 Telephone Jared Collado [facility] 1..840.114 350.1.13.10 4.2.7.2.686 [id number] [facility] 2021-07-21 00:00:00 2021-07-21 00:00:00 Patient Secure Msg Jared Collado [facility] 1.2840.114 350.1.13.10 4.2.7.2.686 [id number] [facility] 2021-07-20 16:13:00 2021-07-20 17:36:00 Emergency X Manuel STAN[place]ORD [facility] ERT [id number] [facility] 2021-07-20 16:13:00 2021-07-20 17:36:00 Emergency Manuel [place] [facility] 1.20.114 350.1.13.10 4.2.7.2.686 [id number] [facility] 2021-07-20 15:45:00 2021-07-20 16:00:00 Legal Instruments Examiner Visit Lab, Shanon Tariq Brittany [facility] 1.84.114 350.1.13.10 4.2.7.2.686 [id number] [facility] 2021-07-20 15:20:00 2021-07-20 15:44:36 Outpatient R OUMAR DUDLEY [facility] [id number] [facility] 2021-07-20 15:20:00 2021-07-20 15:44:36 Urgent Care Oumar Dudley Amanda [facility] 1..114 350.1.13.10 4.2.7.2.686 [id number] [facility] 2021-07-17 00:00:00 2021-07-17 00:00:00 Patient Secure July Julian [facility] OFF[facility] BUILD[facility] 1.84.114 350.1.13.10 4.2.7.2.686 [id number] [facility] 2021-07-17 00:00:00 2021-07-17 00:00:00 [facility] 1.840.114 350.1.13.10 4.2.7.2.686 [id number] [id number] [facility] 2021-07-16 14:15:00 2021-07-16 14:41:18 Legal Instruments Examiner Visit Lab, Drake Escobar Jared Brito [facility] 1.840.114 350.1.13.10 4.2.7.2.686 [id number] [facility] 2021-07-16 14:15:00 2021-07-16 14:30:00 Legal Instruments Examiner Visit Lab, Drake Jose Tobias [facility] 1.840.114 350.1.13.10 4.2.7.2.686 [id number] [facility] 2021-07-16 14:15:00 2021-07-16 14:15:00 Outpatient R JARED COLLADO [facility] [id number] [facility] 2021-07-15 15:30:00 2021-07-15 15:45:00 Legal Instruments Examiner Visit Lab, Drake Escobar Damon Eldamariah [facility] 1..840.114 350.1.13.10 4.2.7.2.686 [id number] [facility] 2021-07-15 14:00:00 2021-07-15 15:22:50 Outpatient R JARED COLLADO [facility] [id number] [facility] 2021-07-15 14:00:00 2021-07-15 15:22:50 Office Visit TobiasJared [facility] 1..840.114 350.1.13.10 4.2.7.2.686 [id number] [facility] 2021-07-15 14:00:00 2021-07-15 15:22:50 Outpatient R JARED COLLADO [facility] [id number] [facility] 2021-07-15 14:00:00 2021-07-15 15:22:50 Outpatient R JARED COLLADO [facility] [id number] [facility] 2021-07-13 08:30:00 2021-07-13 08:30:00 Outpatient R DANY CARIAS [facility] [id number] [facility] 2021-07-13 08:30:00 2021-07-13 08:30:00 Outpatient R DANY CARIAS [facility] [id number] [facility] 2021-07-11 14:20:00 2021-07-11 15:10:05 Outpatient R JOANNA MARIA ISABEL [facility] [id number] [facility] 2021-07-11 14:20:00 2021-07-11 15:10:05 Urgent Care Joanna Maria Isabel [facility] 1..840.114 350.1.13.10 4.2.7.2.686 [id number] [facility] 2021-07-06 00:00:00 2021-07-06 00:00:00 Patient Secure Msg Doctor Unassigned, [place] [facility] 1..840.114 350.1.13.10 4.2.7.2.686 [id number] [facility] 2021-06-30 14:30:00 2021-06-30 15:41:19 Outpatient R ANALISA SUAREZ [facility] [id number] [facility] 2021-06-30 14:30:00 2021-06-30 15:41:19 Office Visit Vince Suarezola C [facility] GR[facility]ITE COUNTERTOP INSTALLER [facility] & CHILD [facility] 1.2840.114 350.1.13.10 4.2.7.2.686 [id number] [facility] 2021-06-30 00:00:00 2021-06-30 00:00:00 Letter (Out) BrandonAnalisa heller Shruthi [facility] GR[facility]ITE COUNTERTOP INSTALLER [facility] CHILD [facility] 1.2840.114 350.1.13.10 4.2.7.2.686 [id number] [facility] 2021-06-26 15:45:00 2021-06-26 16:00:00 Legal Instruments Examiner Visit Lab, Drake Baca [facility] MEDICAL OFFICE BUILDING 1.84.114 350.1.13.10 4.2.7.2.686 [id number] [facility] 2021-06-26 14:30:00 2021-06-26 15:40:40 [facility] [id number] 2021-06-26 14:30:00 2021-06-26 15:40:40 Office Visit Phuong [facility] MED[facility] OFFICE BUILDING 1.84.114 350.1.13.10 4.2.7.2.686 [id number] [facility] 2021-06-26 00:00:00 2021-06-26 00:00:00 Telephone Dany Carias [facility] GR[facility]ITE COUNTERTOP INSTALLER [facility] 1.2.114 350.1.13.10 4.2.7.2.686 [id number] [facility] 2021-06-25 14:30:00 2021-06-25 14:30:00 Outpatient R DANY CARIAS [facility] [id number] [facility] 2021-06-25 14:30:00 2021-06-25 14:30:00 Outpatient R DANY CARIAS [facility] [id number] [facility] 2021-06-22 15:30:00 2021-06-22 15:30:00 Outpatient R JARED COLLADO [facility] [id number] [facility] 2021-06-22 15:30:00 2021-06-22 15:30:00 Outpatient R JARED COLLADO [facility] [id number] [facility] 2021-06-18 00:00:00 2021-06-18 00:00:00 Patient Secure [facility]ino [facility] 1..840.114 350.1.13.10 4.2.7.2.686 [id number] [facility] 2021-06-16 15:30:00 2021-06-16 15:45:00 Legal Instruments Examiner Visit Lab, Drake Baca [facility] MED[facility] OFFICE BUILD[facility] 1..840.114 350.1.13.10 4.2.7.2.686 [id number] [facility] 2021-06-16 14:30:00 2021-06-16 15:22:44 Outpatient R PHUONG TYRESE [facility] [id number] [facility] 2021-06-16 14:30:00 2021-06-16 15:22:44 [facility] 1..840.114 350.1.13.10 4.2.7.2.686 [id number] [facility] 2021-06-12 13:45:00 2021-06-12 14:00:00 Office Visit Analisa Suarez [facility] GR[facility] COUNTERTOP INSTALLER [facility] MATERNAL & CHILD HEALTH [facility] 1.2.260.114 350.1.13.10 4.2.7.2.686 [id number] [facility] 2021-06-12 13:45:00 2021-06-12 13:45:00 Outpatient R ANALISA SUAREZ [facility] [id number] [facility] 2021-06-12 13:45:00 2021-06-12 13:45:00 Outpatient R ANALISA SUAREZ [facility] [id number] [facility] 2021-06-12 00:00:00 2021-06-12 00:00:00 Patient Secure Msg Analisa Suarez [facility] GR[facility] COUNTERTOP INSTALLER [facility] & CHILD [facility] 1.2.840.114 350.1.13.10 4.2.7.2.686 [id number] [facility] 2021-06-11 00:00:00 2021-06-11 00:00:00 Telephone Analisa Suarez [facility] GR[facility]ITE COUNTERTOP INSTALLER [facility] & CHILD [facility] 1.2.840.114 350.1.13.10 4.2.7.2.686 [id number] [facility] 2021-06-10 13:30:00 2021-06-10 14:41:56 Office Visit Analisa Suarez [facility] GR[facility] COUNTERTOP INSTALLER [facility] CHILD [facility] 1.2.840.114 350.1.13.10 4.2.7.2.686 [id number] [facility] 2021-06-10 13:30:00 2021-06-10 14:41:56 Outpatient R ANALISA SUAREZ [facility] [id number] [facility] 2021-06-10 13:30:00 2021-06-10 13:30:00 Outpatient R ANALISA SUAREZ [facility] [id number] [facility] 2021-06-08 15:30:00 2021-06-08 15:30:00 Outpatient R TYRESE BACA [facility] [id number] [facility] 2021-06-08 15:30:00 2021-06-08 15:30:00 Outpatient R TYRESE BACA [facility] [id number] [facility] 2021-06-02 14:30:00 2021-06-02 15:12:53 Outpatient R TYRESE BACA [facility] [id number] [facility] 2021-06-02 14:30:00 2021-06-02 15:12:53 [facility] 1.2.840.114 350.1.13.10 4.2.7.2.686 [id number] [facility] 2021-06-02 14:30:00 2021-06-02 15:12:53 Outpatient R TYRESE BACA [facility] [id number] [facility] 2021-06-02 14:30:00 2021-06-02 14:30:00 Outpatient R TYRESE BACA [facility] [id number] [facility] 2021-05-29 14:00:00 2021-05-29 14:30:00 Office Visit Jared Collado [facility] 1.2.840.114 350.1.13.10 4.2.7.2.686 [id number] [facility] 2021-05-29 14:00:00 2021-05-29 14:00:00 Outpatient R JARED COLLADO [facility] [id number] [facility] 2021-05-29 09:30:00 2021-05-29 09:30:00 Outpatient R TYRESE BACA [facility] [id number] [facility] 2021-05-28 00:00:00 2021-05-28 00:00:00 Telephone Jared [facility] 1..114 350.1.13.10 4.2.7.2.686 [id number] [facility] 2021-05-27 09:15:00 2021-05-27 09:30:00 Legal Instruments Examiner Visit Lab, Ang - Db Jared Collado [facility] 1.0.114 350.1.13.10 4.2.7.2.686 [id number] [facility] 2021-05-27 09:15:00 2021-05-27 09:15:00 Outpatient R JARED COLLADO [facility] [id number] [facility] 2021-05-27 08:30:00 2021-05-27 09:00:00 Office Visit Jared Collado [facility] 1.114 350.1.13.10 4.2.7.2.686 [id number] [facility] 2021-05-27 08:30:00 2021-05-27 08:30:00 Outpatient R JARED COLLADO [facility] [id number] [facility] 2021-05-27 00:00:00 2021-05-27 00:00:00 Letter (Out) Jared Collado [facility] 1..114 350.1.13.10 4.2.7.2.686 [id number] [facility] 2021-05-27 00:00:00 2021-05-27 00:00:00 Telephone Jared Collado [facility] 1..114 350.1.13.10 4.2.7.2.686 [id number] [facility] 2021-05-27 00:00:00 2021-05-27 00:00:00 Telephone Jared Collado [facility] 1.84114 350.1.13.10 4.2.7.2.686 [id number] [facility] 2021-05-23 01:00:00 2021-05-23 06:13:00 Emergency X TANYA GABRIELLE [facility] ERT [id number] [facility] 2021-05-23 01:00:00 2021-05-23 06:13:00 Emergency MartínezAnglen R [facility] 1.84.114 350.1.13.10 4.2.7.2.686 [id number] [facility] 2021-05-23 01:00:00 2021-05-23 06:13:00 Emergency X ANGLE MARTÍNEZN [facility] ERT [id number] [facility] 2021-05-22 16:00:00 2021-05-22 16:00:00 Outpatient R FERNANDEZ PAMELA [facility] [id number] [facility] 2021-05-22 14:20:00 2021-05-22 15:02:37 Outpatient R FERNANDEZ PAMELA [facility] [id number] [facility] 2021-05-22 14:20:00 2021-05-22 15:02:37 Urgent Care Pamela Presley [facility] 1..84.114 350.1.13.10 4.2.7.2.686 [id number] [facility] 2021-05-15 00:00:00 2021-05-15 00:00:00 Orders Only Doctor Unassigned, [place] [facility] 1.84114 350.1.13.10 4.2.7.2.686 [id number] [facility] 2021-05-04 15:30:00 2021-05-04 15:30:00 Outpatient GERTRUDE CAMPOVERDE [facility] [id number] [facility] 2021-05-04 15:30:00 2021-05-04 15:30:00 Outpatient GERTRUDE CAMPOVERDE [facility] [id number] [facility] 2021-05-01 13:00:00 2021-05-01 13:00:00 Outpatient MINOO BURRELL [facility] [id number] [facility] 2021-05-01 13:00:00 2021-05-01 13:00:00 Outpatient MINOO BURRELL [facility] [id number] [facility] 2021-04-30 16:30:00 2021-04-30 17:15:50 Outpatient R TYRESE BACA [facility] [id number] [facility] 2021-04-30 16:30:00 2021-04-30 17:15:50 Office Visit Tyrese Baca [facility] 1.2.840.114 350.1.13.10 4.2.7.2.686 [id number] [facility] 2021-04-29 18:59:00 2021-04-29 20:20:00 Emergency X JAG MAGANA [facility] ERT [id number] [facility] 2021-04-29 18:59:00 2021-04-29 20:20:00 Emergency Jag Magana [facility] 1.2.840.114 350.1.13.10 4.2.7.2.686 [id number] [facility] 2021-04-29 18:59:00 2021-04-29 20:20:00 Emergency X JAG MAGANA [facility] ERT [id number] [facility] 2021-04-03 13:30:00 2021-04-03 13:30:00 Outpatient R MINOO FLORES [facility] [id number] [facility] 2021-03-27 02:58:00 2021-03-27 04:43:00 Emergency X JOB KASPER [facility] ERT [id number] [facility] 2021-03-27 02:58:00 2021-03-27 04:43:00 Emergency Job Kasper [facility] 1.2840.114 350.1.13.10 4.2.7.2.686 [id number] [facility] 2021-03-27 00:00:00 2021-03-27 00:00:00 Orders Only Doctor Unassigned, [place] [facility] 1.2840.114 350.1.13.10 4.2.7.2.686 [id number] [facility] 2020-11-25 13:14:00 2020-11-27 12:30:00 Inpatient X JIMENA MAYO [facility] KYLE [id number] [facility] 2020-11-25 20:45:00 2020-11-26 00:47:00 Anesthesia Event Carine Smith [facility] [place] 1.2.840.114 350.1.13.10 4.2.7.2.686 [id number] [facility] 2020-11-24 00:00:00 2020-11-24 00:00:00 Dany Beth [facility] 1..114 350.1.13.10 4.2.7.2.686 [id number] [facility] 2020-11-20 10:15:00 2020-11-20 10:15:00 Outpatient NORA MELENDEZ [facility] [id number] [facility] 2020-11-18 00:00:00 2020-11-18 00:00:00 Patient Secure Msg Doctor Unassigned, [place] [facility]ILD [facility] 1..840.114 350.1.13.10 4.2.7.2.686 [id number] [facility] 2020-11-17 00:00:00 2020-11-17 00:00:00 Telephone Nora Sanchez [facility] [employer] & CHILD [facility] 1.2840.114 350.1.13.10 4.2.7.2.686 [id number] [facility] 2020-11-10 10:30:00 2020-11-10 10:30:00 Outpatient NORA MELENDEZ [facility] [id number] [facility] 2020-10-30 12:45:00 2020-10-30 12:45:00 Outpatient NORA MELENDEZ [facility] [id number] [facility] 2020-10-16 14:23:36 2020-10-16 15:09:33 Routine Visit Nora Sanchez [facility] CHILD [facility] 1.840.114 350.1.13.10 4.2.7.2.686 [id number] [facility] 2020-10-16 13:00:00 2020-10-16 13:00:00 Outpatient NORA MELENDEZ [facility] [id number] [facility] 2020-10-16 00:00:00 2020-10-16 00:00:00 Orders Only Doctor Unassigned, [place] [facility] 1.840.114 350.1.13.10 4.2.7.2.686 [id number] [facility] 2020-10-15 09:45:00 2020-10-15 09:45:00 Outpatient DANY THOMPSON [facility] [id number] [facility] 2020-10-07 08:00:00 2020-10-07 08:00:00 Outpatient NORA MELENDEZ [facility] [id number] [facility] 2020-09-30 18:00:00 2020-09-30 18:00:00 Outpatient LILIANA THOMPSONBENJAMINHECTOR [facility] [id number] [facility] 2020-09-30 11:45:00 2020-09-30 11:45:00 [facility] [id number] [facility] 2020-09-29 16:45:00 2020-09-29 16:45:00 Outpatient LILIANA THOMPSONGREYMariah [facility] [id number] [facility] 2020-09-18 00:00:00 2020-09-18 00:00:00 Patient Secure Msg Liliana Cariasmarybeth [facility] IN[employer] MATERNAL & CHILD HEALTH [facility] 1..840.114 350.1.13.10 4.2.7.2.686 [id number] [facility] 2020-09-15 13:58:57 2020-09-15 15:37:45 Routine Visit Dany Carias [facility] [employer] INST[facility] MATERNAL & CHILD [facility] 1.2.840.114 350.1.13.10 4.2.7.2.686 [id number] [facility] 2020-09-15 13:15:00 2020-09-15 13:15:00 Outpatient DANY THOMPSON [facility] [id number] [facility] 2020-09-12 00:00:00 2020-09-12 00:00:00 Nurse Triage Leidy Duran [facility] 1..840.114 350.1.13.10 4.2.7.2.686 [id number] [facility] 2020-08-29 00:00:00 2020-08-29 00:00:00 Telephone Nurse, [facility] 1.2.840.114 350.1.13.10 4.2.7.2.686 [id number] [facility] 2020-08-28 15:21:38 2020-08-28 23:59:00 Hospital Encounter Vipul Paris [facility] 1.2.840.114 350.1.13.10 4.2.7.2.686 [id number] 2020-08-28 15:21:38 2020-08-28 23:59:00 Hospital Encounter Vipul Paris [facility] 1.2.840.114 350.1.13.10 4.2.7.2.686 [id number] [facility] 2020-08-28 14:13:24 2020-08-28 15:23:42 Urgent Care Vipul Paris [facility] Office Building One 1.2.840.114 350.1.13.10 4.2.7.2.686 [id number] 2020-08-28 14:13:24 2020-08-28 15:23:42 Urgent Care [place] MatthewToby [facility] Office Building One 1.2.840.114 350.1.13.10 4.2.7.2.686 [id number] [facility] 2020-08-28 14:20:00 2020-08-28 14:20:00 Outpatient R TOBY RICHARDS [facility] [id number] [facility] 2020-08-27 10:01:23 2020-08-27 11:16:37 Routine Visit Dany Carias [facility] 1.2.840.114 350.1.13.10 4.2.7.2.686 [id number] 2020-08-27 10:01:23 2020-08-27 11:16:37 Routine Visit CariasDany [facility] [employer] INST[facility] 1.2840.114 350.1.13.10 4.2.7.2.686 [id number] [facility] 2020-08-27 09:00:00 2020-08-27 09:00:00 Outpatient R CARIAS, ROSЕЛЕНАMariah [facility] [id number] [facility] 2020-08-27 00:00:00 2020-08-27 00:00:00 Orders Only Doctor Unassigned, [place] [facility] 1.2.840.114 350.1.13.10 4.2.7.2.686 [id number] 2020-08-27 00:00:00 2020-08-27 00:00:00 Orders Only Doctor Unassigned, [place] [facility] 1.2840.114 350.1.13.10 4.2.7.2.686 [id number] [facility] 2020-08-19 14:50:51 2020-08-19 15:35:51 Legal Instruments Examiner Visit 1, [facility] Room [facility] 1.20.114 350.1.13.10 4.2.7.2.686 [id number] 2020-08-19 14:50:51 2020-08-19 15:35:51 Legal Instruments Examiner Visit 1, [facility] Room Guerrero Stewart [facility] 1.20.114 350.1.13.10 4.2.7.2.686 [id number] [facility] 2020-08-19 14:15:00 2020-08-19 14:15:00 Outpatient P [facility] [id number] [facility] 2020-08-11 08:45:00 2020-08-11 08:45:00 Outpatient P [facility] [id number] [facility] 2020-08-06 00:00:00 2020-08-06 00:00:00 Nurse Triage [facility] 1.2.840.114 350.1.13.10 4.2.7.2.686 [id number] 2020-08-06 00:00:00 2020-08-06 00:00:00 Nurse Triage [facility] 1.2.840.114 350.1.13.10 4.2.7.2.686 [id number] [facility] 2020-08-06 00:00:00 2020-08-06 00:00:00 Telephone Dany Carias [facility] [employer] MATERNAL & CHILD HEALTH [facility] 1.2.840.114 350.1.13.10 4.2.7.2.686 [id number] 107 [id number] [facility] 2020-07-30 10:22:14 2020-07-30 10:37:14 Routine Visit Dany Carias [facility] [employer] INST[employer]ER [facility] & CHILD [facility] 1.2.840.114 350.1.13.10 4.2.7.2.686 [id number] [facility] 2020-07-30 10:15:00 2020-07-30 10:15:00 Outpatient DANY THOMPSON [facility] [id number] [facility] 2020-07-21 13:45:00 2020-07-21 13:45:00 Outpatient DANY THOMPSON [facility] [id number] [facility] 2020-07-17 09:00:00 2020-07-17 09:00:00 Outpatient DANY THOMPSON [facility] [id number] [facility] 2020-07-14 09:45:41 2020-07-14 11:00:41 Legal Instruments Examiner Visit Ultrasound, Jordan Valencia [facility] [employer] IN[employer] MATERNAL & CHILD [facility] 1.2.840.114 350.1.13.10 4.2.7.2.686 [id number] [facility] 2020-07-14 10:00:00 2020-07-14 10:00:00 Outpatient P [facility] [id number] [facility] 2020-07-14 00:00:00 2020-07-14 00:00:00 Case Management Nora Sanchez [facility] [employer] IN[employer] MATERNAL & CHILD [facility] 1.2.840.114 350.1.13.10 4.2.7.2.686 [id number] [facility] 2020-07-01 13:52:00 2020-07-01 14:58:28 Routine Visit Dany Carias [facility] [employer] INST[employer]ER [facility] CHILD [facility] 1.2.840.114 350.1.13.10 4.2.7.2.686 [id number] [facility] 2020-07-01 13:45:00 2020-07-01 13:45:00 Outpatient R DANY CARIAS [facility] [id number] [facility] 2020-07-01 00:00:00 2020-07-01 00:00:00 Telephone Dany Carias [facility] [employer] IN[employer] CHILD [facility] 1.2.840.114 350.1.13.10 4.2.7.2.686 [id number] [facility] 2020-06-17 08:48:55 2020-06-17 09:25:15 Routine Visit Dany Carias [facility] [employer] INST[employer] CHILD [facility] 1.2.840.114 350.1.13.10 4.2.7.2.686 [id number] [facility] 2020-06-17 08:45:00 2020-06-17 08:45:00 Outpatient DANY THOMPSON [facility] [id number] [facility] 2020-06-10 15:45:00 2020-06-10 15:45:00 Outpatient DANY THOMPSON [facility] [id number] [facility] 2020-06-03 20:19:00 2020-06-03 22:12:00 Emergency Julio Da Silva [facility] 1..840.114 350.1.13.10 4.2.7.2.686 [id number] [facility] 2020-05-13 09:59:20 2020-05-13 10:14:20 Routine Visit Dany Carias [facility] [employer] [facility] MATERNAL & CHILD HEALTH [facility] 1..840.114 350.1.13.10 4.2.7.2.686 [id number] [facility] 2020-05-13 10:00:00 2020-05-13 10:00:00 Outpatient DANY THOMPSON [facility] [id number] [facility] 2020-05-06 11:00:00 2020-05-06 11:00:00 Outpatient DANY THOMPSON [facility] [id number] [facility] 2020-04-29 10:45:00 2020-04-29 10:45:00 Outpatient DANY THOMPSON [facility] [id number] [facility] 2020-04-29 00:00:00 2020-04-29 00:00:00 Telephone Dany Carias [facility] [employer] IN[employer] & CHILD [facility] 1..840.114 350.1.13.10 4.2.7.2.686 [id number] [facility] 2020-04-22 00:00:00 2020-04-22 00:00:00 Nurse Triage Lynn Garcia [facility] 1.2840.114 350.1.13.10 4.2.7.2.686 [id number] [facility] 2020-04-09 00:00:00 2020-04-09 00:00:00 Case Management Dany Carias [facility] [employer] INST[employer]ER [facility] & CHILD [facility] 1.2.840.114 350.1.13.10 4.2.7.2.686 [id number] [facility] 2020-04-08 11:32:55 2020-04-08 12:14:18 Legal Instruments Examiner Visit Ultrasound, Tracey Trammell [facility] [employer] INST[employer]ER [facility] CHILD [facility] 1.2840.114 350.1.13.10 4.2.7.2.686 [id number] [facility] 2020-04-08 11:30:00 2020-04-08 11:30:00 Outpatient P [facility] [id number] [facility] 2020-04-08 00:00:00 2020-04-08 00:00:00 Abstract Dany Carias [facility] [employer] IN[employer] CHILD [facility] 1.2840.114 350.1.13.10 4.2.7.2.686 [id number] [facility] 2020-04-02 23:15:00 2020-04-03 01:12:00 Emergency Vil[facility]oshi [facility]) 1.2.840.114 350.1.13.10 4.2.7.2.686 [id number] [facility] 2020-04-02 00:00:00 2020-04-02 00:00:00 Telephone Dany Carias [facility] [employer] INST[employer] & CHILD [facility] 1.2.840.114 350.1.13.10 4.2.7.2.686 [id number] [facility] 2020-04-02 00:00:00 2020-04-02 00:00:00 Telephone Dany Carias [facility] [employer] INST[employer]ER [facility] MATERNAL & CHILD [facility] 1.2840.114 350.1.13.10 4.2.7.2.686 [id number] [facility] 2020-04-01 09:25:04 2020-04-01 11:05:29 Initial Visit Dany Carias [facility] [employer] INST[employer] & CHILD [facility] 1.0.114 350.1.13.10 4.2.7.2.686 [id number] [facility] 2020-04-01 08:30:00 2020-04-01 08:30:00 Outpatient R [facility] [id number] [facility] 2020-04-01 00:00:00 2020-04-01 00:00:00 Orders Only Doctor Unassigned, [place] [facility] 1.0.114 350.1.13.10 4.2.7.2.686 [id number] [facility] 2019-12-18 09:30:00 2019-12-18 09:30:00 Outpatient R [facility] [id number] [facility] 2019-10-01 00:00:00 2019-10-01 00:00:00 Patient Secure Msg Doctor Unassigned, [place] [facility] 1.0.114 350.1.13.10 4.2.7.2.686 [id number] [facility] 2019-09-26 00:00:00 2019-09-26 00:00:00 Patient Secure Msg Minoo Flores [facility] 1.0.114 350.1.13.10 4.2.7.2.686 [id number] [facility] 2019-09-21 11:10:44 2019-09-21 23:59:00 Hospital Encounter Minoo Flores [facility] 1.2.840.114 350.1.13.10 4.2.7.2.686 [id number] [facility] 2019-09-21 11:00:00 2019-09-21 11:09:00 Hospital Encounter Minoo [facility] 1.2.840.114 350.1.13.10 4.2.7.2.686 [id number] [facility] 2019-09-21 09:56:26 2019-09-21 10:59:00 Hospital Encounter Minoo Flores [facility]LINE [facility] 1.2.840.114 350.1.13.10 4.2.7.2.686 [id number] [facility] 2019-09-21 00:00:00 2019-09-21 00:00:00 Outpatient R MINOO FLORES [facility] [id number] [facility] 2019-09-21 00:00:00 2019-09-21 00:00:00 Patient Secure Msg Minoo Flores [facility] PROFESSIO NAL BUILDING 1.2.840.114 350.1.13.10 4.2.7.2.686 [id number] [facility] 2019-09-21 00:00:00 2019-09-21 00:00:00 Case Management Minoo Flores [facility] Professio nal Building 1.2.840.114 350.1.13.10 4.2.7.2.686 [id number] [facility] 2019-09-21 00:00:00 2019-09-21 00:00:00 Patient Secure Msg Minoo Flores [facility] Professio nal Building 1.2.840.114 350.1.13.10 4.2.7.2.686 [id number] [facility] 2019-09-20 10:01:43 2019-09-20 10:16:43 Laboratory Only Only, Adc Test Kevan Beaulieu [facility] 1.840.114 350.1.13.10 4.2.7.2.686 [id number] [facility] 2019-09-20 09:55:41 2019-09-20 10:10:41 Legal Instruments Examiner Visit Pob, Adc Lab Main Minoo Flores [facility] 1.84.114 350.1.13.10 4.2.7.2.686 [id number] [facility] 2019-09-20 00:00:00 2019-09-20 00:00:00 Outpatient R MINOO FLORES [facility] [id number] [facility] 2019-09-20 00:00:00 2019-09-20 00:00:00 Orders Only Doctor Unassigned, [place] [facility] 1.84.114 350.1.13.10 4.2.7.2.686 [id number] [facility] 2019-09-19 13:45:12 2019-09-19 15:57:17 Telemedici ne Visit Minoo Flores [facility] 1.84.114 350.1.13.10 4.2.7.2.686 [id number] [facility] 2019-09-19 09:45:00 2019-09-19 09:45:00 Outpatient R MINOO FLORES [facility] [id number] [facility] 2019-09-19 00:00:00 2019-09-19 00:00:00 Telephone Minoo Flores [facility] Office Building One 1.114 350.1.13.10 4.2.7.2.686 [id number] [facility] 2019-09-14 12:46:19 2019-09-14 13:54:37 Urgent Care Pob1, Acute Care Clinic Phuong [facility] Office Building One 1.114 350.1.13.10 4.2.7.2.686 [id number] [facility] 2019-09-14 13:00:00 2019-09-14 13:00:00 Outpatient R PHUONG [facility] [id number] [facility] 2019-08-28 11:00:00 2019-08-28 11:00:00 Outpatient R MELODY GAO [facility] [id number] [facility] 2019-08-22 08:59:00 2019-08-24 07:24:30 Inpatient HCACL [id number] 2019-08-23 15:07:25 2019-08-23 16:34:23 Urgent Care Provider, [facility] Office Building One 1.114 350.1.13.10 4.2.7.2.686 [id number] [facility] 2019-08-23 15:40:00 2019-08-23 15:40:00 Outpatient R [facility] [id number] [facility] 2019-08-22 14:16:15 2019-08-22 16:10:00 Emergency CorazonKvng ramirez [facility] ([facility]) 1.114 350.1.13.10 4.2.7.2.686 [id number] [facility] 2019-08-22 13:26:07 2019-08-22 13:41:07 Nurse Visit Nurse, [facility] Unknown, Attending [facility] 1.2.840.114 350.1.13.10 4.2.7.2.686 [id number] [facility] 2019-08-22 13:30:00 2019-08-22 13:30:00 Outpatient R UNKNOWN, ATTENDING [facility] [id number] [facility] 2019-08-22 00:00:00 2019-08-22 00:00:00 Telephone Simba Rivera [facility] 1.2.840.114 350.1.13.10 4.2.7.2.686 [id number] [facility] 2019-08-21 00:00:00 2019-08-21 00:00:00 Patient Secure Msg Doctor Unassigned, [place] [facility] 1.2.840.114 350.1.13.10 4.2.7.2.686 [id number] [facility] 2019-08-19 21:26:07 2019-08-19 21:27:00 Emergency Simba Rivera [facility] 1.2.840.114 350.1.13.10 4.2.7.2.686 [id number] [facility] 2019-08-19 00:00:00 2019-08-19 00:00:00 Orders Only Doctor Unassigned, [place] [facility] 1.2.840.114 350.1.13.10 4.2.7.2.686 [id number] [facility] Results Test Description Test Time [...] Signed by Candida Sanchez on 2024-09-11 18:26 [facility]. Metabolic Panel (70053)2024-06-27 19:23:20* Test Item Value Reference Range Interpretation Comme nts NA (test code = 6713361658) 138 mmol/L 135-145 K (test code = 1456954626) 4.3 mmol/L 3.5-5.0 CL (test code = 3835766434) 106 mmol/L 98-108 CO2 TOTAL (test code = 2712246868) 23 mmol/L 23-31 AGAP (test code = 7314975743) 9 2-16 BUN (test code = 3530333371) 15 mg/dL 7-23 GLUCOSE (test code = 0206596108) 86 mg/dL 70-110 CREATININE (test code = 2160-0) 0.59 mg/dL 0.50-1.04 TOTAL BILI (test code = 9926140900) 0.4 mg/dL 0.1-1.1 CALCIUM (test code = 5183164528) 9.1 mg/dL 8.6-10.6 T PROTEIN (test code = 2068402933) 7.9 g/dL 6.3-8.2 ALBUMIN (test code = 9513192245) 4.1 g/dL 3.5-5.0 ALK PHOS (test code = 5967741469) 62 U/L 34-122 ALTv (test code = 1742-6) 15 U/L 5-35 AST(SGOT) (test code = 4154672449) 18 U/L 13-40 eGFR (test code = 50505-1) 117.7 mL/min/1.73m2 CKD-EPI eGFR (20 21). Assuming creatinine has been stable day-to-day for at least three months, the eGFR indicates Category G1 (>= 90 mL/min/1.73 m2) [facility] with [id number] 19:04:15* Test Item Value Reference Range Interpretation [...] 32.2 g/dL 31.6-35.1 RDW-SD (test code = 82639-6) 44.6 fL 39.0-49.9 RDW-CV (test code = 788-0) 15.5 % 12.0-15.5 PLT (test code = 777-3) 421 166-358 H MPV (test code = 18228-4) 9.5 fL 9.5-12.9 NRBC/100 WBC (test code = 7506374362) 0 0.0-10.0 NRBC x10^3 (test code = 6436365000) See_Comment [Automated messa ge] The system which generated this result transmitted reference range: 10*3/?L. The reference range was not used to interpret this result as normal/abnormal. GRAN MAT (NEUT) % (test code = 770-8) 59.6 % IMM GRAN % (test code = 3861616195) 0.3 % LYMPH % (test code = 736-9) 32.2 % MONO % (test code = 5905-5) 6.1 % EOS % (test code = 713-8) 1.2 % BASO % (test code = 706-2) 0.6 % GRAN MAT x10^3(ANC) (test code = 5543009461) 6.59 10*3/uL 1.88-7.09 IMM GRAN x10^3 (test code = 2876581325) 0.03 10*3/uL 0.00-0.06 LYMPH x10^3 (test code = 731-0) 3.56 10*3/uL 1.32-3.29 H MONO x10^3 (test code = 742-7) 0.68 10*3/uL 0.33-0.92 EOS x10^3 (test code = 711-2) 0.13 10*3/uL 0.03-0.39 BASO x10^3 (test code = 704-7) 0.07 10*3/uL 0.01-0.07 Lab Interpretation (test code = 99776-1) Abnormal [facility] Pelvis complete with [id number] 17:45:26US PELVIS COMPLETE WITH TRANSVAGINAL HISTORY: ?AUB [...] No fluid is present in the cul-de-sac. ?[facility] Molecular [id number] 22:50:40* Test Item Value Reference Range Interpretation Comme [facility] PO[facility] Molecular FluA (test co de = 07110-3) Negative Negative POCT Molecular FluB (test co de = 82613-4) Negative Negative Lab Interpretation (test cod e = 16104-0) Normal [facility] SARS-COV-2 ANTIGEN (BINAX NOW)2024-03-07 22:48:00* Test Item Value Reference Range Interpretation Comme [facility] POCT SARS-COV-2 ANTIGEN (test code = 91671-9) Not Detected Not Detected, See Comment On board controls acceptable with C Line (test code = 3574) Yes Lab Interpretation (test code = 03782-3) Normal [facility] [id number] 22:48:00* Test Item Value Reference Range Interpretation Comme [facility] POCT PREG (test code = 1605) Negative On board controls acceptable with C Line (test code = 3574) Yes POCT PREG LOT # (test code = 3575) POCT PREG TEST DATE ( test code = 3576) Lab Interpretation (test cod e = 95199-9) Normal [facility] MOLECULAR [id number] 22:43:07* Test Item Value Reference Range Interpretation Comme [facility] POCT Molecular Strep (test c ode = 59350-3) Negative Negative Lab Interpretation (test cod e = 42146-1) Normal [facility] Molecular [id number] 22:27:05* Test Item Value Reference Range Interpretation Comme nts POCT Molecular FluA (test co de = 37894-1) Negative Negative POCT Molecular FluB (test co de = 58550-4) Negative Negative Lab Interpretation (test cod e = 45421-1) Normal [facility] MOLECULAR [id number] 22:20:34* Test Item Value Reference Range Interpretation Comme nts POCT Molecular Strep (test c ode = 73219-8) Negative Negative Lab Interpretation (test cod e = 76648-3) Normal [facility] WITH [id number] 17:00:40* Test Item Value Reference Range Interpretation [...] 32.1 g/dL 31.6-35.1 RDW-SD (test code = 91365-0) 43.7 fL 39.0-49.9 RDW-CV (test code = 788-0) 14.8 % 12.0-15.5 PLT (test code = 777-3) 334 166-358 MPV (test code = 23852-0) 9.7 fL 9.5-12.9 NRBC/100 WBC (test code = 6407963053) 0.0 0.0-10.0 NRBC x10^3 (test code = 0405661101) See_Comment [Automated messa ge] The system which generated this result transmitted reference range: 10*3/?L. The reference range was not used to interpret this result as normal/abnormal. GRAN MAT (NEUT) % (test code = 770-8) 64.3 % IMM GRAN % (test code = 3800179553) 0.40 % LYMPH % (test code = 736-9) 26.5 % MONO % (test code = 5905-5) 7.1 % EOS % (test code = 713-8) 1.1 % BASO % (test code = 706-2) 0.6 % GRAN MAT x10^3(ANC) (test code = 6617274173) 7.29 10*3/uL 1.88-7.09 H IMM GRAN x10^3 (test code = 5327949901) 0.04 10*3/uL 0.00-0.06 LYMPH x10^3 (test code = 731-0) 3.01 10*3/uL 1.32-3.29 MONO x10^3 (test code = 742-7) 0.81 10*3/uL 0.33-0.92 EOS x10^3 (test code = 711-2) 0.12 10*3/uL 0.03-0.39 BASO x10^3 (test code = 704-7) 0.07 10*3/uL 0.01-0.07 Lab Interpretation (test code = 98618-5) Abnormal [facility] [id number] 16:20:00* Test Item Value Reference Range Interpretation Comme nts POCT PREG (test code = 1605) Negative On board controls acceptable with C Line (test code = 3574) Yes POCT PREG LOT # (test code = 3575) HCG [id number] POCT PREG TEST DATE (test code = 3576) 11/11/2024 Lab Interpretation (test cod e = 02046-1) Normal [facility] MOLECULAR [id number] 15:59:33* Test Item Value Reference Range Interpretation Comme nts POCT Molecular Strep (test c ode = 04952-6) Negative Negative Lab Interpretation (test cod e = 77037-0) Normal [facility] [id number] 12:46:00* Test Item Value Reference Range Interpretation Comme nts POCT PREG (test code = 1605) Negative On board controls acceptable with C Line (test code = 3574) Yes POCT PREG LOT # (test code = 3575) POCT PREG TEST DATE ( test code = 3576) [facility] [id number] 12:46:00* Test Item Value Reference Range Interpretation Comme nts POCT PREG (test code = 1605) Negative On board controls acceptable with C Line (test code = 3574) Yes POCT PREG LOT # (test code = 3575) POCT PREG TEST DATE ( test code = 3576) [facility] [id number] 20:37:00* Test Item Value Reference Range Interpretation Comme nts POCT PREG (test code = 1605) Negative On board controls acceptable with C Line (test code = 3574) Yes POCT PREG LOT # (test code = 3575) POCT PREG TEST DATE ( test code = 3576) [facility] [id number] 20:37:00* Test Item Value Reference Range Interpretation Comme nts POCT PREG (test code = 1605) Negative On board controls acceptable with C Line (test code = 3574) Yes POCT PREG LOT # (test code = 3575) POCT PREG TEST DATE ( test code = 3576) [facility] [id number] 20:37:00* Test Item Value Reference Range Interpretation Comme nts POCT PREG (test code = 1605) Negative On board controls acceptable with C Line (test code = 3574) Yes POCT PREG LOT # (test code = 3575) POCT PREG TEST DATE ( test code = 3576) [facility] URINALYSIS W/O SPECIFIC [id number] 20:36:00* Test Item Value Reference Range Interpretation [...] = 3257) trace Negative - Negati ve [facility] URINALYSIS W/O SPECIFIC [id number] 20:36:00* Test Item Value Reference Range Interpretation [...] = 3257) trace Negative - Negati ve [facility] URINALYSIS W/O SPECIFIC [id number] 20:36:00* Test Item Value Reference Range Interpretation [...] = 3257) trace Negative - Negati ve [facility] RT-[id number] 15:19:39* Test Item Value Reference Range Interpretation Comments SARS-CoV-2 INTERPRETATION (test code = 56388) NEGATIVE SEE NOTE SARS-CoV-2 R NA NOT [...] prevalence is high. SOURCE (test code = 46834) NASOPHARYNGEAL Note: Methodolog y is Dannie Stefani Real-Time RT-PCR. The expected result or reference range is NEGATIVE (Not Detected). For more information regarding COVID-19 testing to include clinicalinformation, methodology detail, intended use, FDA authorization andrecommended fact sheets for patients or healthcare providers, see [employer] Announcement: SARS-CoV-2 (COVID-19) by NAAT at URL below (note,fact sheets are provided by method given in report:[email or web address]/ Alternatively, see downloadable PDF fact sheet at:[email or web address]-EZ-PCR UNLESS OTHERWISE INDICATED, ALL TESTING PERFORMED [facility] [address] [place] [address] COMMUNITY ENGAGEMENT MANAGER: OCTAVIANO GUZMAN M.D. [place] NUMBER [id number] [facility] [place]. [id number] COMPREHENSIVE METABOLIC [id number] 10:12:00* Test Item Value Reference Range Interpretation [...] code = ALKP) 65 IUnit/L 20-125 N [id number] 10:12:00* Test Item Value Reference Range Interpretation Comme nts TROPONIN-I (test code = TROPI) < 0.015 ng/mL 0.000-0.045 N Negative: <= 0.0 45 Positive: >= 0.046 Correlation with serial results, other cardiac markers andclinical findings is necessary to determine the clinicalsignificance of this result. Results using different methodologies should not be comparedto one another as quantitative results may vary by method. COMPREHENSIVE METABOLIC [id number] 10:11:00* Test Item Value Reference Range Interpretation [...] ( test code = ALKP) IUnit/L 20-125 [id number] 10:11:00* Test Item Value Reference Range Interpretation Comme nts TROPONIN-I (test code = TROPI) < 0.015 ng/mL 0.000-0.045 N Negative: <= 0.0 45 Positive: >= 0.046 Correlation with serial results, other cardiac markers andclinical findings is necessary to determine the clinicalsignificance of this result. Results using different methodologies should not be comparedto one another as quantitative results may vary by method. PROTHROMBIN [id number] 09:59:00* Test Item Value Reference Range Interpretation [...] Acute Myocardial Infarction (to prevent recurrent infarct). [id number] 09:59:00* Test Item Value Reference Range Interpretation Comme nts D-DIMER (test code = DDIMER) 224 ng/mlFEU <=500 N THROMBOSIS AND/O R PULMONARY EMBOLISM AND THE CLINICAL CUT- OFF VALUE FOR EXCLUSION (500 ng/mL FEU) OF THESE CONDITIONSIS VALIDATED BY THE RESAW TAILER OF THE METHOD. A NEGATIVE D-DIMER RESULT WHEN COMBINED WITH A CLINICALASSESSMENT OF LOW PRETEST PROBABILITY HAS BEEN SHOWN TO HAVEA HIGH NEGATIVE PREDICTIVE VALUE OF DVT OR PE. D-DIMER VALUES >500 ng/mL FEU ARE NOT DIAGNOSTIC FOR DVT, PEor DIC WITHOUT OTHER CONFIRMATORY TESTS AND APPROPRIATECLINICAL EUALUATIONS. CBC W/AUTO [id number] 09:56:00* Test Item Value Reference Range Interpretation [...] = MDIFF) NO - XR CHEST 1 [id number] 09:56:00FAX: Dallas Cain MD [phone] [place]: St: PRE Name: RAGHAVENDRA QUINN [facility] : 1985 Age/S: 34/F [address] [place] [address] Unit #: [id number] Loc: [place] [address] Phys: Dallas Cain MD Acct: [id number] Dis Date: Status: PRE ER PHONE #: [phone] Exam Date: 08/22/2019 1003 FAX #: [phone] Reason: Chest Pain EXAMS: CPT CODE: [id number] XR CHEST 1 V 86550 PROCEDURE: CHEST SINGLEVIEW INDICATION: Chest Pain COMPARISON: There are no previous relevant studies available for correlation. FINDINGS: The lungs are clear. No pleural abnormality. The cardiomediastinal silhouette is normal for projection. The bony thorax is intact. IMPRESSION: Normal radiograph. SL: [id number] E lectronically Signed by Jesse Sousa on 08/22/2019 at 0956 Reported and signed by:Samson Sousa M.D. CC: Dallas Cain MD Technologist: Lilly Agarwal RT(R) Trnscrd Date/Time/By: 08/22/2019 (0956) : By: Bret.KWL Orig Print D/T: S: 08/22/2019 (0590) PAGE 1 Signed Report Notes Date/Time Note Provider Source 2024-09-20 11:00:00 Images from the original note were not included. Venipuncture collection performed by clean technique on the left anticubitus. Total of 1 attempts were made. Slight pressure and a bandage/dressing were applied to the site(s). The patient experienced no complications. The following specimens were processed according to instructions and sent to [facility] laboratories per lab order on 09/20/2024 : LT BLUE SST 2 RED LAV PPT DK GREEN (LiHep) DK GREEN (SodH) JEFFRIES DK BLUE (K2) DK BLUE (S) ACD Blood Culture NIPT/NTD [facility] 2024-09-11 18:54:58 Pt discharged with diagnosis of leg cramp. Printed and verbal instructions reviewed with and given to pt. Prescriptions given x 0. pt verbalized understanding of teaching and recommended follow-up. Denies questions or concerns at this time. Pt ambulatory at discharge. Appears in no apparent distress. No ataxia noted. Maday Perez RN [facility] 2024-09-11 17:43:27 Patient reports left calf pain for 5 days. Went to urgent care and they said they thought it was muscular but if she wanted to rule out blood clot to come to ER, no hx of blood clots. Perry Torres RN [facility] 2024-09-11 17:39:00 [facility] Emergency Department Note Patient Name: Raghavendra Quinn Date of : 1985 39 year old female Treatment Room: [facility] Primary Care Physician: Tobias Medina Patient [...] FNP Specialty: CHUCKY-FAMILY Relationship: PCP - General [facility] [address] [place] [id number] Instructions: For follow up of the presenting symptoms. [facility]-Emergency Department Specialty: Emergency Medicine [address] [facility] [address] Instructions: If symptoms worsen as documented in the discharge Electronically signed by: Jag Magana DO 09/11/248 [facility] 2024-09-10 13:30:00 Images from the original note were not included. Venipuncture collection performed by clean technique on the left anticubitus. Total of 1 attempts were made. Slight pressure and a bandage/dressing were applied to the site(s). The patient experienced no complications. The following specimens were processed according to instructions and sent to [facility] laboratories per lab order on 09/10/2024: LT BLUE SST 3 RED LAV PPT DK GREEN (LiHep) DK GREEN (SodH) JEFFRIES DK BLUE (K2) DK BLUE (S) ACD Blood Culture NIPT/NTD T [facility] 2024-06-29 16:14:46 See result note when the labs are reviewed. [facility] 2024-06-28 16:23:50 Please review and advise. JOSE 06/25/24 Mona Melgar PEDIATRIC NEPHROLOGIST [facility] 2024-06-27 11:45:00 Images from the original note were not included. Venipuncture collection performed by clean technique on the left anticubitus. Total of 1 attempts were made. Slight pressure and a bandage/dressing were applied to the site(s). The patient experienced no complications. The following specimens were processed according to instructions and sent to [facility] laboratories per lab order on 06/27/2024 : LT BLUE SST 2 RED LAV 2 PPT DK GREEN (LiHep) DK GREEN (SodH) JEFFRIES DK BLUE (K2) DK BLUE (S) ACD Blood Culture NIPT/NTD [facility] 2024-06-25 14:00:00 Addended by: MUSTAPHA BACA DNP-TYRESE COWAN on: 07/02/2024 11:25 AM Modules accepted: Orders [facility] 2024-06-25 13:35:03 Last Refilled: Disp Refills Start End SIDDHARTHA ergocalciferol, vitamin d2, 1,250 mcg (50,000 unit) capsule 12 capsule 1 12/15/2023 -- -- Sig: Take 1 capsule by mouth weekly. 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 Showing future appointments within next 150 days with a meds authorizing provider and meeting all other requirements [facility] 2024-06-23 17:08:35 Please review. JOSE 01/23/24 NOV not scheduled Mona Melgar LVN [facility] 2024-06-14 11:00:00 Reviewed, relatively normal pelvic Ultrasound. [facility] 2024 19:00:00 Addended by: LAURA LOWE on: 2024 07:53 PM Modules accepted: Orders [facility] 2024-01-23 16:45:00 Images from the original note were not included. Venipuncture collection performed by clean technique on the left anticubitus. Total of 1 attempts were made. Slight pressure and a bandage/dressing were applied to the site(s). The patient experienced no complications. The following specimens were processed according to instructions and sent to [facility] laboratories per lab order on 01/23/2024 : LT BLUE SST 2 RED 1 LAV PPT DK GREEN (LiHep) DK GREEN (SodH) JEFFRIES DK BLUE (K2) DK BLUE (S) ACD Blood Culture NIPT/NTD [facility] 2023-12-29 11:51:52 Pt given printed and verbal [...] in no apparent distress. TH Mccarthy RN [facility] 2023-12-29 09:07:26 Patient states "I started bleeding yesterday and I thought it was my regular period. I am bleeding what is not normal, I am bleeding a lot and having pain on the left side." TH Soares RN [facility] 2023-12-15 16:45:00 Images from the original note were not included. Venipuncture collection performed by clean technique on the left anticubitus. Total of 1 attempts were made. Slight pressure and a bandage/dressing were applied to the site(s). The patient experienced no complications. The following specimens were processed according to instructions and sent to [facility] laboratories per lab order on TODAY: LT BLUE SST 1RST RED LAV PPT DK GREEN (LiHep) DK GREEN (SodH) JEFFRIES DK BLUE (K2) DK BLUE (S) ACD Blood Culture NIPT/NTD Urine collected in office. POCT only.Sugey Wang 12/15/2023 4:50 PM [facility] 2023-11-08 18:16:14 See lab result note when available- likely by tomorrow, during which this will be addressed. [facility] 2023-11-04 11:00:00 Images from the original note were not included. Venipuncture collection performed by clean technique on the right anticubitus. Total of 1 attempts were made. Slight pressure and a bandage/dressing were applied to the site(s). The patient experienced no complications. The following specimens were processed according to instructions and sent to [facility] laboratories per lab order on 11/04/2023 : LT BLUE SST 2 RED LAV 2 PPT DK GREEN (LiHep) DK GREEN (SodH) JEFFRIES DK BLUE (K2) DK BLUE (S) ACD Blood Culture NIPT/NTD [facility] 2022-09-01 09:11:30 Formatting of this n ote is different from the original. 09/01/22 Community Wellness and Outreach team contacted patient to assist in completing Health Maintenance topics that are overdue. Raghavendra Quinn [id number] Attempt Number: 1st attempt Health Maintenance topics addressed: Health Maintenance Due Topic Date Due SARS-CoV-2 (COVID-19) Vaccine (1) Never done Depression Screening 09/18/2020 Call outcome: Attempted to get in contact with patient regarding missed annual visit appointment. No answer. LVM for patient to return phone call. Deja Strong MA [facility] 2019-08-22 09:39:00 [facility] ([facility]) EMERGENCY PROVIDER REPORT REPORT#:[id number] REPORT STATUS: Signed DATE:08/22/19 TIME: 938 PATIENT: RAGHAVENDRA QUINN UNIT #: [id number] ROOM/BED: AGE: 34 SEX: F PCP PHYS: [...] 08/21 918 Pulse 115 08/21 918 Resp 08/21 Review of Vital Signs Reviewed Focused PE [...] (Auto) (14.0 - 32.0 %) 37.2 H [place] % (Auto) (4.8 - 9.0 %) 7.7 Eos % (Auto) (0.3 - 3.7 %) 0.8 Baso % (Auto) (0.0 - 2.0 %) 0.5 Neut # (Auto) (2.0 - 7.6 x10 3/uL) 7.13 Lymph # (Auto) (1.0 - 3.8 x10 3/uL) 4.96 H Rose[place] # (Auto) (0.1 - 0.8 x10 3/uL) [...] Entered: 08/22/2019 1003 IMPRESSION: Normal radiograph. SL: [id number] Impression By: Krissy Sousa M.D. Point of Care Testing Pulse Oximetry Pulse Ox % 100 On: Room air Interpretation Interpreted by me, Pulse oximetry normal ECG #1 Interpretation Date 08/22/19 Time 0934 Interpreted by and reviewed by NL ECG Interpretation Normal sinus rhythm, No [...] PO Aspirin 324 MG X1ED STA 08/21 0832 DC 08/21 PO 08/21 0833 0940 Electrolytic, Caloric, And Carlitos Sig/Vince Start time Last Medication Dose Route Stop Time Status Admin Sodium Chloride 0 ASDIR PRN 08/21 944 AC IV 08/22 08 Patient Discharge Departure Vital Signs/Condition Vital Signs [...] No Known Home Medications at 1030 RPT #:[id number] END OF REPORT [facility]
--- NOTE | 2024-09-29 10:35 | RAD REPORT ---
EXAM: Chest Single View HISTORY: 39 years Female left scapular pain COMPARISON: 09/11/2024 FINDINGS: LUNGS/PLEURA: The lungs are clear. No pleural effusions or pneumothorax. No pulmonary edema. CARDIAC/MEDIASTINUM: The cardiac silhouette is within normal limits. UPPER ABDOMEN: No significant abnormality. BONES: No acute abnormality. LINES/TUBES/OTHER: N/A IMPRESSION: No evidence of acute cardiopulmonary disease.
--- NOTE | 2024-09-29 10:37 | RAD REPORT ---
EXAMINATION: Thoracic Spine Ap/Lat VIEWS: Four views CLINICAL INDICATION: Female, 39 years old. PAIN COMPARISON: No prior exam. IMPRESSION: No acute fracture of the thoracic spine. The vertebral body heights are maintained. No malalignment. No significant focal degenerative changes.
--- NOTE | 2024-09-29 10:49 | ER ---
Nurse's Notes [facility] Name: Goyo Solorio Age: 39 yrs Sex: Female : 1985 Arrival Date: 09/29/2024 Time: 09:55 Bed 13 Private MD: Diagnosis: Upper back pain Presentation: 09/29 10:09 Chief complaint: Patient states: Left shoulder pain onset this morning. Pt describes cm10 the pain as sharp and states that the pain is constant. Coronavirus screen: Client denies travel out of the [place] in the last 14 days. Ebola Screen: Patient denies travel to an Ebola-affected area in the 21 days before illness onset. Initial Sepsis Screen: Does the patient meet any 2 criteria? HR > 90 bpm. Does the patient have a suspected source of infection? No. Patient's initial sepsis screen is negative. Risk Assessment: Do you want to hurt yourself or someone else? Patient reports no desire to harm self or others. Onset of symptoms was September 29, 2024. 10:09 Method Of Arrival: Ambulatory cm10 10:09 Acuity: EUGENIO 4 cm10 Triage Assessment: 10:08 General: Appears in no apparent distress. comfortable, Behavior is calm, cooperative. cm10 Pain: Complains of pain in left scapular area and left subscapular area Pain currently is 3 out of 10 on a pain scale. Quality of pain is described as dull, sharp, Pain began suddenly, Is continuous. Neuro: No deficits noted. Level of Consciousness is awake, alert, obeys commands, Oriented to person, place, time, situation, Appropriate for age. Respiratory: No deficits noted. Airway is patent Respiratory effort is even, unlabored, Respiratory pattern is regular, symmetrical. Musculoskeletal: Circulation, motion, and sensation intact. Range of motion: intact in all extremities, Reports pain in left scapular area and left subscapular area. 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 - Infectious Disease History:: Denies. - Social history:: Smoking status: Patient reports the use of cigarette tobacco products, denies chronic smoking, but will smoke occasionally. - Family history:: not pertinent. - Hospitalizations: : No recent hospitalization is reported. Screenin:21 [facility] ED Fall Risk Assessment (Adult) History of falling in the last 3 months, cm10 including since admission No falls in past 3 months (0 pts) Confusion or Disorientation No (0 pts) Intoxicated or Sedated No (0 pts) Impaired Gait No (0 pts) Mobility Assist Device Used No (0 pt) Altered Elimination No (0 pt) Score/Fall Risk Level 0 - 2 = Low Risk Oriented to surroundings, Maintained a safe environment, Hourly rounding (assess needs \T\ fall precautionary measures) done. Abuse screen: Denies threats or abuse. Denies injuries from another. Nutritional screening: No deficits noted. Tuberculosis screening: No symptoms or risk factors identified. Assessment: 10:46 Reassessment: Patient appears in no apparent distress at this time. Patient and/or cm10 family updated on plan of care and expected duration. Pain level reassessed. Patient is alert, oriented x 3, equal unlabored respirations, skin warm/dry/pink. Vital Signs: 10:09 BP 117 / 54; Pulse 95; Resp 16; Temp 98.1(O); Pulse Ox 100% on R/A; Weight 87.54 kg; cm10 Height 5 ft. 1 in. ; Pain 3/10; 10:46 BP 120 / 88; Pulse 88; Resp 16; Pulse Ox 89% ; cm10 10:09 Body Mass Index 36.47 (87.54 kg, 154.94 cm) cm10 10:09 Pain Scale: Adult cm10 ED Course: 09:57 Patient arrived in ED. ts1 09:57 Edu Rucker MD is Attending Physician. rn 09:59 Liudmila Mack, JAVIER is Primary Nurse. cm10 10:09 Arm band placed on right wrist. Patient placed in an exam room, on a stretcher. cm10 10:11 Triage completed. cm10 10:21 Patient moved to radiology via wheelchair. cm10 10:21 EKG done, by ED staff, reviewed by Edu Rucker MD. cm10 10:22 Patient has correct armband on for positive identification. Bed in low position. Call cm10 light in reach. Provided Education on: ER process and procedures. 10:29 Patient moved back from radiology. cm10 10:30 XRAY Chest (1 view) In Process Unspecified. EDMS 10:30 XRAY Thoracic Spine (Ap/lat) In Process Unspecified. EDMS 10:46 No provider procedures requiring assistance completed. IV discontinued, intact, cm10 bleeding controlled, No redness/swelling at site. Pressure dressing applied. Administered Medications: No medications were administered Medication: 10:21 VIS not applicable for this client. cm10 Outcome: 10:49 Discharge ordered by . rn 10:54 Discharged to home ambulatory, cm10 10:54 Condition: good 10:54 Discharge instructions given to patient, Instructed on discharge instructions, follow up and referral plans. Demonstrated understanding of instructions, follow-up care, 10:54 Patient left the ED. cm10 Signatures: Dispatcher [employer] Edu Vaughn MD MD rn Simpson, Tanya, PAS PAS ts1 Liudmila Mack RN RN cm10
--- NOTE | 2024-09-29 10:49 | EDPHYS ---
Physician Documentation [facility] Name: Goyo Solorio Age: 39 yrs Sex: Female : 1985 Arrival Date: 09/29/2024 Time: 09:55 Bed 13 Private MD: ED Physician Edu Rucker HPI: 09/29 10:45 This 39 yrs old Female presents to ER via Ambulatory with complaints of Back rn Pain, Leg Pain. 10:45 Patient reports left scapular pain. Seen at urgent care today and was told could come rn to emergency room for further evaluation and testing. Patient seen a week and a half ago to 2 weeks ago for chest pain and leg pain and at that time had CT chest PE protocol that was negative as well as lower extremity ultrasound. Patient reports overall left leg pain is improving and swelling has resolved. Patient denies any new symptoms or fever or cough or trauma. Denies current chest pain. Pain in upper back/scapula worse with movement. No difficulty breathing or pain with breathing. 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 - Infectious Disease History:: Denies. - Social history:: Smoking status: Patient reports the use of cigarette tobacco products, denies chronic smoking, but will smoke occasionally. - Family history:: not pertinent. - Hospitalizations: : No recent hospitalization is reported. ROS: 10:45 Constitutional: Negative for fever, chills, and weight loss, Neck: Negative for injury, rn pain, and swelling, Cardiovascular: Negative for chest pain, palpitations, and edema, Respiratory: Negative for shortness of breath, cough, wheezing, and pleuritic chest pain, Abdomen/GI: Negative for abdominal pain, nausea, vomiting, diarrhea, and constipation, Back: Positive for upper back pain : Negative for injury, bleeding, discharge, and swelling, MS/Extremity: Negative for injury and deformity, Skin: Negative for injury, rash, and discoloration, Neuro: Negative for headache, weakness, numbness, tingling, and seizure, Exam: 10:28 ECG was reviewed by the Attending Physician. rn 10:45 Constitutional: This is a well developed, well nourished patient who is awake, alert, rn and in no acute distress. Neck: No midline cervical tenderness Cardiovascular: Regular rate and rhythm. No pulse deficits. Respiratory: Speaking full sentences, unlabored. No increased work of breathing, no retractions or nasal flaring. Abdomen/GI: Soft, non-tender Back: No spinal tenderness. Mild tenderness along the left scapula without swelling or crepitus. Skin: No discoloration or cyanosis MS/ Extremity: Pulses equal, no cyanosis. Neurovascular intact. Full, normal range of motion. Equal circumference. Neuro: Awake and alert, GCS 15. Motor strength 5/5 in all extremities. Sensory grossly intact. Cerebellar exam normal. Normal gait. Vital Signs: 10:09 BP 117 / 54; Pulse 95; Resp 16; Temp 98.1(O); Pulse Ox 100% on R/A; Weight 87.54 kg; cm10 Height 5 ft. 1 in. ; Pain 3/10; 10:46 BP 120 / 88; Pulse 88; Resp 16; Pulse Ox 89% ; cm10 10:09 Body Mass Index 36.47 (87.54 kg, 154.94 cm) cm10 10:09 Pain Scale: Adult cm10 MDM: 09:58 Medical Screening Exam initiated rn 10:45 Differential diagnosis: Pulmonary etiology, muscle pain, nerve pain, back pain. Data rn reviewed: vital signs, nurses notes, EKG, radiologic studies, plain films, and as a result, I will discharge patient. Independent interpretation of the following test(s) in the Emergency Department EKG: See my EKG interpretation above X-Ray: My interpretation is Chest x-ray images and thoracic x-ray images negative for acute fracture, dislocation, acute pulmonary process per my interpretation.. Counseling: I had a detailed discussion with the patient and/or guardian regarding the historical points, exam findings, and any diagnostic results supporting the discharge/admit diagnosis, radiology results, the need for outpatient follow up, to return to the emergency department if symptoms worsen or persist or if there are any questions or concerns that arise at home. Special discussion: I discussed with the patient/guardian in detail that at this point there is no indication for admission to the hospital. It is understood, however, that if the symptoms persist or worsen the patient needs to return immediately for re-evaluation. Further emergent ED testing is not indicated at this point in time. I discussed with the patient/guardian in detail the need to arrange with the PCP or specialist further outpatient testing, MRI, Based on the history and exam findings, there is no indication for further emergent testing or inpatient evaluation. I discussed with the patient/guardian the need to see the primary care provider for further evaluation of the symptoms. 09/29 10: Order name: XRAY Chest (1 view); Complete Time: 10: rn 09/29 10: Order name: XRAY Thoracic Spine (Ap/lat); Complete Time: : rn 09/29 10: Order name: EKG; Complete Time: : rn 09/29 10: Order name: EKG - Nurse/Tech; Complete Time: : rn EC:28 Rate is 83 beats/min. Rhythm is regular. QRS Gilliam is Normal. DC interval is normal. QRS rn interval is normal. QT interval is normal. No Q waves. T waves are Normal. No ST changes noted. Clinical impression: Normal ECG. Interpreted by me. Reviewed by me. 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 BATX DENNIS
[2024-09-29 11:13] VITALS: BP 120/88; TEMP 98.1; O2SAT 89
== END 2024-09-29 10:54 | disposition home or self-care (01) ==
LOC: ER 09:55
DX: M54.6 Pain in thoracic spine (principal); F17.210 Nicotine dependence, cigarettes, uncomplicated
CPT/HCPCS: 71045; 72070; 93005; 99283